=== PATIENT | male | born 1950 | race Caucasian/White ===

== ENCOUNTER 2022-10-03 12:28 | Outpatient (CLI) | payer MEDICARE, BC, SELFPAY | END 2022-10-03 12:29 | disposition home or self-care (01) | LOC: AMB 10-06 13:15 | PROVIDERS: PCP Family Medicine; Visit Provider Family Medicine | DX: M54.9 Dorsalgia, unspecified (principal) | CPT/HCPCS: A0425; A0428; A0433 ==

== ENCOUNTER 2022-10-03 13:08 | Emergency (ER) | payer MEDICARE, BC, SELFPAY ==
[2022-10-03] VITALS (8 sets, daily range): BP systolic 141–171; BP diastolic 68–85; PULSE 61–97; RESP 20; TEMP 36.1; O2SAT 96–100; BMI 53.1
--- NOTE | 2022-10-03 13:35 | CRLHL7_ITS ---
For Patients: As a result of the Century Cures Act, medical imaging exams and procedure reports are released immediately into your electronic medical record. You may view this report before your referring provider. If you have questions, please contact your health care provider. HISTORY: Right back pain. Right-sided radiculopathy. TECHNIQUE: CT lumbar spine without contrast. COMPARISON: None. FINDINGS: Five lumbar type vertebral bodies. No fracture. No subluxation. No lytic or blastic bone lesions. T12-L1: Severe facet arthrosis on the left and mild facet arthrosis on the right. Mild canal stenosis. No foraminal stenosis. L1-2: Moderate bilateral foraminal stenosis. Mild canal stenosis. No foraminal stenosis. L2-3: Mild disc height loss. Moderate facet arthrosis. Mild canal stenosis. No foraminal stenosis. L3-4: Severe facet arthrosis and disc bulge. Moderate to severe canal stenosis. Mild left foraminal stenosis. L4-5: Severe bilateral facet arthrosis. Moderate to severe canal stenosis. Mild bilateral foraminal stenosis. L5-S1: Severe right and moderate left facet arthrosis. Mild disc space narrowing. Mild canal stenosis. Severe bilateral foraminal stenosis. Atherosclerotic calcifications. IMPRESSION: 1. No acute abnormality of the lumbar spine. 2. Multilevel degenerative changes of the lumbar spine. Moderate to severe canal stenosis at L3-4 and L4-5. 3. Severe bilateral foraminal stenosis at L5-S1. Please note that all CT scans at this facility use dose modulation, iterative reconstruction, and/or weight-based dosing when appropriate to reduce radiation dose to as low as reasonably achievable. Dictated by Patricio Thompson MD @ 10/03/2022 3:18:33 PM (Electronically Signed)
--- NOTE | 2022-10-03 13:37 | CRLHL7_ITS ---
For Patients: As a result of the Century Cures Act, medical imaging exams and procedure reports are released immediately into your electronic medical record. You may view this report before your referring provider. If you have questions, please contact your health care provider. HISTORY: Right-sided pelvic pain. TECHNIQUE: CT pelvis without contrast. COMPARISON: None. FINDINGS: No fracture. Moderate osteoarthritis of both hips. Pubic symphysis is maintained. Moderate degenerative changes of the sacroiliac joints. No lytic or blastic bone lesions. No hematoma. Atherosclerotic calcifications. No lymphadenopathy. IMPRESSION: 1. No fracture. No acute findings. 2. Moderate osteoarthritis of both hips. 3. Degenerative changes of the sacroiliac joints. Please note that all CT scans at this facility use dose modulation, iterative reconstruction, and/or weight-based dosing when appropriate to reduce radiation dose to as low as reasonably achievable. Dictated by Patricio Thompson MD @ 10/03/2022 3:26:51 PM (Electronically Signed)
--- NOTE | 2022-10-03 13:39 | ED.BACK ---
HPI - Back Pain/Injury General Date Seen: 10/03/22 Chief Complaint: Back Injury/Pain Stated Complaint: Back Pain Time Seen by Provider: 10/03/22 13:10 Source: patient and EMS Mode of arrival: EMS Limitations: no limitations History of Present Illness HPI Narrative: Patient is a very nice 71-year-old gentleman who presents here with back pain, it has been worsening over the past 3 weeks, he does have a history of chronic back pain, spinal stenosis and a previous laminectomy. Greater than 30 years ago. He tells me this started out with low back pain, and last week and half is noted more right-sided symptoms, radiating around from his right hip right side of his back buttock, to his right upper leg. He has no numbness or tingling noted with this. But does endorse some muscle spasms he saw his primary care physician on Tuesday, he has been placed on tizanidine for this but noted today that that is added he does just not working he gets some relief with standing, or laying back, the worst position foreign by far is sitting. Denies any bowel or bladder symptoms. Admits to me that he does have a history of chronic IBS and alternates between diarrhea and also constipation. No history of falls or injury on top of this fevers chills or sweats does have a chronic history of sepsis, with previous kidney stones, brought in today by EMS he says he does not feel that he would be able to come by private vehicle and that is why he is here. By ambulance I do note in 2019 he had pretty bad spinal stenosis on a CT I can see. He does not endorse having an MRI. There is also evidence of the previous for mention laminectomy. I also note that he had no abdominal aortic aneurysm at that point Pertinent past history: prior back pain and back surgery Onset (ago): week(s) Timing: progressively worsening Severity: moderate Similar Symptoms Previously: Yes Quality: burning and aching Location: lumbar spine Radiation: none Exacerbating factors: none Associated symptoms: denies other symptoms Work related injury: Yes Related Data Home Medications Medication Instructions Recorded Confirmed allopurinol 300 mg tablet 300 mg PO DAILY 10/03/22 10/03/22 glipizide 5 mg tablet, extended 5 mg PO BID 10/03/22 10/03/22 release 24 hr insulin glargine 100 unit/mL (3 41 unit subcut QPM 10/03/22 10/03/22 mL) subcutaneous pen (Lantus Solostar U-100 Insulin) levothyroxine 100 mcg tablet 100 mcg PO DAILY 10/03/22 10/03/22 levothyroxine 125 mcg tablet 125 mcg PO DAILY 10/03/22 10/03/22 liraglutide 0.6 mg/0.1 mL (18 mg/3 1.8 mg subcut DAILY 10/03/22 10/03/22 mL) subcutaneous pen injector (Victoza 3-Frankie) losartan 50 mg tablet 50 mg PO DAILY 10/03/22 10/03/22 magnesium oxide 400 mg (241.3 mg 400 mg PO DAILY 10/03/22 10/03/22 magnesium) tablet metformin 500 mg tablet,extended 500 mg PO DAILY 10/03/22 10/03/22 release 24 hr metoprolol succinate 200 mg 200 mg PO DAILY 10/03/22 10/03/22 tablet,extended release 24 hr pantoprazole 40 mg tablet,delayed 40 mg PO QPM 10/03/22 10/03/22 release potassium chloride 20 mEq 60 meq PO DAILY 10/03/22 10/03/22 tablet,extended release(part/cryst) (Klor-Con M) pravastatin 80 mg tablet 80 mg PO DAILY 10/03/22 10/03/22 spironolactone 50 mg tablet 50 mg PO DAILY 10/03/22 10/03/22 tamsulosin 0.4 mg capsule 0.8 mg PO DAILY 10/03/22 10/03/22 tizanidine 2 mg tablet 2 - 4 mg PO Q8H PRN muscle spasm 10/03/22 10/03/22 Previous Rx's Medication Instructions Recorded gabapentin 300 mg capsule 300 mg PO TID #90 caps 10/03/22 methylprednisolone 4 mg tablets in See Rx Instructions PO .COMPLEX 10/03/22 a dose pack (Medrol (Frankie)) #21 ea Allergies Allergy/AdvReac Type Severity Reaction Status Date / Time terazosin Allergy Severe Shortness Verified 10/03/22 13:33 of Breath amoxicillin [From Augmentin] Allergy Mild Diarrhea Verified 10/03/22 13:33 atenolol Allergy Mild Verified 10/03/22 13:33 clavulanic acid Allergy Mild Diarrhea Verified 10/03/22 13:33 [From Augmentin] lisinopril Allergy Unknown Verified 10/03/22 13:33 meperidine [From Demerol] Allergy Unknown Verified 10/03/22 13:33 trospium Allergy Unknown Verified 10/03/22 13:33 Review of Systems Status of ROS: Reports: 10 or more systems reviewed and unremarkable except as noted in History and below [facility] Medical History BRITTNEY (obstructive sleep apnea) ?G47.33 - Obstructive sleep apnea (adult) (pediatric) (ICD-10) Social History Smoking Status: Former smoker Do you use any of these nicotine containing products: None Second hand tobacco smoke exposure: No How often do you have a drink containing alcohol: never AUDIT-C Alcohol total score: 0 Non-prescribed substance use: denies use service: No Exam Narrative: Exam Narrative: I find this nice gentleman in room 6 in no apparent distress, sitting up, be does have a tear noted on his cheek. Describes the pain in his back, he has a very large gentleman with an elevated BMI, he notes that he has lymphedema also his legs, he is able Worley lift both legs up to approximately 30?, EHLs great toe flexors ankle dorsiflexors plantar flexors knee flexions hip flexors seemingly are good bilaterally, with normal power I am unable to get any reflexes of his ankles or his knees but his legs are fairly large. Lichenification of the skin bilaterally in his lower extremities is noted I do not see any evidence of cellulitic process. On reviewing his back, scar from previous surgery is noted, there is no tenderness to palpation notable. His decent perianal sensation grossly, there is no tenderness to put palpation or percussion Given the size this gentleman is complaints I think CT scanning would be advantageous verses regular x-ray, we will go ahead and get this, and I will also do a CT of his pelvis to ensure that there is nothing else going on. Will give him a small amount of Dilaudid for this discomfort. He has before had oxycodone morphine and Dilaudid with no problems Const: Vital Signs, click to edit/add: Vital Signs - 24 hr 10/03/22 13:16 10/03/22 13:42 10/03/22 14:12 Temperature 97 F L Pulse Rate 97 75 Pulse Rate [Pulse Oximeter] 71 Respiratory Rate 20 Blood Pressure Blood Pressure [Le ft Forearm] 152/85 H Pulse Oximetry 96 100 100 Oxygen Delivery Me thod Room Air 10/03/22 14:30 10/03/22 15:00 10/03/22 15:07 Temperature Pulse Rate 61 69 94 Pulse Rate [Pulse Oximeter] Respiratory Rate Blood Pressure 141/77 H Blood Pressure [Le ft Forearm] Pulse Oximetry 100 100 100 Oxygen Delivery Me thod 10/03/22 15:30 10/03/22 15:33 Temperature Pulse Rate 61 67 Pulse Rate [Pulse Oximeter] Respiratory Rate Blood Pressure 171/68 H Blood Pressure [Le ft Forearm] Pulse Oximetry 100 100 Oxygen Delivery Me thod Course Course Hospital Course: Patient is seen and assessed, review them CT results, him and his , I think he has spinal stenosis, likely with some hip issues, from his severe arthritis, we discussed with the fact that he is has not tried maximal therapy, I do not think admission to the hospital is a great idea as he is able to walk around with his walker fairly well and actually that he does not have a ton of pain with walking. I think we can try some gabapentin 300 mg p.o. t.i.d. along with a Medrol Dosepak, went over the low side effects of both of these medications with him, small supply of Percocet can be use, but I was also very open with him the chance of addiction so we should use a small supply, follow-up with primary care suggested, because of his size and other move mobility issues, we did arrange to have the ambulance bring him home, and he was comfortable with this. Vital Signs Vital signs: Initial Vital Signs Temperature 97 F L 10/03/22 13:16 Temperature Source Temporal Artery Scan 10/03/22 13:16 Pulse Rate 71 10/03/22 13:16 Respiratory Rate 20 10/03/22 13:16 Blood Pressure 152/85 H 10/03/22 13:16 Blood Pressure Mean 107 H 10/03/22 13:16 Blood Pressure Position Sitting 10/03/22 13:16 Pulse Oximetry 96 10/03/22 13:16 Oxygen Delivery Method Room Air 10/03/22 13:16 Vital Signs Temperature 97 F L 10/03/22 13:16 Pulse Rate 71 10/03/22 13:16 Respiratory Rate 20 10/03/22 13:16 Blood Pressure 152/85 H 10/03/22 13:16 Pulse Oximetry 96 10/03/22 13:16 Oxygen Delivery Method Room Air 10/03/22 13:16 Temperature 97 F L 10/03/22 13:16 Pulse Rate 67 10/03/22 15:33 Respiratory Rate 20 10/03/22 13:16 Blood Pressure 171/68 H 10/03/22 15:33 Pulse Oximetry 100 10/03/22 15:33 Oxygen Delivery Method Room Air 10/03/22 13:16 MDM - Back Pain/Injury MDM Narrative Medical decision making narrative: Life-threatening differential diagnosis considered include: Cauda equina an epidural abscess, other differential diagnosis considered includes sprain, contusion, nerve root entrapment, radiculopathy, muscle spasm, urolithiasis, lumbar fracture, pyelonephritis, appendicitis, biliary colic, as well as other etiologies. The patient denies saddle anesthesia bowel or bladder incontinence or lower extremity weakness, recent weight loss, or history of malignancy. Medical Records Attestation: I reviewed the patient's medical records. Imaging Data Lumbar CT: Radiologist's impression: Patient: ALFONZO ROSS Facility: [facility] Site . Site : 1950 Study: CT Spine Lumbar W/O-10/03/2022 2:12:46 PM Ordering Physician: Nicolas Andres Final Report: HISTORY: Right back pain. Right-sided radiculopathy. TECHNIQUE: CT lumbar spine without contrast. COMPARISON: None. FINDINGS: Five lumbar type vertebral bodies. No fracture. No subluxation. No lytic or blastic bone lesions. T12-L1: Severe facet arthrosis on the left and mild facet arthrosis on the right. Mild canal stenosis. No foraminal stenosis. L1-2: Moderate bilateral foraminal stenosis. Mild canal stenosis. No foraminal stenosis. L2-3: Mild disc height loss. Moderate facet arthrosis. Mild canal stenosis. No foraminal stenosis. L3-4: Severe facet arthrosis and disc bulge. Moderate to severe canal stenosis. Mild left foraminal stenosis. L4-5: Severe bilateral facet arthrosis. Moderate to severe canal stenosis. Mild bilateral foraminal stenosis. L5-S1: Severe right and moderate left facet arthrosis. Mild disc space narrowing. Mild canal stenosis. Severe bilateral foraminal stenosis. Atherosclerotic calcifications. IMPRESSION: 1. No acute abnormality of the lumbar spine. 2. Multilevel degenerative changes of the lumbar spine. Moderate to severe canal stenosis at L3-4 and L4-5. 3. Severe bilateral foraminal stenosis at L5-S1. Please note that all CT scans at this facility use dose modulation, iterative reconstruction, and/or weight-based dosing when appropriate to reduce radiation dose to as low as reasonably achievable. Dictated by Patricio Thompson MD @ 10/03/2022 3:18:33 PM (Electronic Signature) Patient: ALFONZO ROSS Facility: [facility] Site . Site : 1950 Study: CT Pelvis W/O-10/03/2022 2:13:10 PM Ordering Physician: Nicolas Andres Final Report: HISTORY: Right-sided pelvic pain. TECHNIQUE: CT pelvis without contrast. COMPARISON: None. FINDINGS: No fracture. Moderate osteoarthritis of both hips. Pubic symphysis is maintained. Moderate degenerative changes of the sacroiliac joints. No lytic or blastic bone lesions. No hematoma. Atherosclerotic calcifications. No lymphadenopathy. IMPRESSION: 1. No fracture. No acute findings. 2. Moderate osteoarthritis of both hips. 3. Degenerative changes of the sacroiliac joints. Please note that all CT scans at this facility use dose modulation, iterative reconstruction, and/or weight-based dosing when appropriate to reduce radiation dose to as low as reasonably achievable. Dictated by Patricio Thompson MD @ 10/03/2022 3:26:51 PM (Electronic Signature) Discharge Plan Discharge Clinical Impression: Lumbar radiculopathy, Spinal stenosis at L4-L5 level, Bilateral hip joint arthritis Patient Disposition: Home, Self-Care Condition: Improved Instructions: Lumbar Spinal Stenosis (ED), Lumbar Nerve Root Injection (DC), Lumbar Radiculopathy (ED), Back Pain (ED), Epidural Steroid Injection (DC) Additional Instructions: Home, rest, medication as directed. Follow-up with primary care this week if you can. Note that the gabapentin may cause you to be a little bit more woozy when you first start the medication, and then Medrol will increase your sugars. Small supply of oxycodone given, this will cause you more of a constipation type affect also. Prescriptions: New methylprednisolone [Medrol (Frankie)] 4 mg tablets,dose pack See Rx Instructions .ROUTE .COMPLEX Qty: 21 0RF Rx Instructions: orally per package directions gabapentin 300 mg capsule 300 mg PO TID Qty: 90 2RF No Action losartan 50 mg tablet 50 mg PO DAILY tizanidine 2 mg tablet 2 - 4 mg PO Q8H PRN (Reason: muscle spasm) metoprolol succinate 200 mg tablet extended release 24 hr 200 mg PO DAILY glipizide 5 mg tablet extended release 24hr 5 mg PO BID levothyroxine 100 mcg tablet 100 mcg PO DAILY potassium chloride [Klor-Con M20] 20 mEq tablet,ER particles/crystals 60 meq PO DAILY pravastatin 80 mg tablet 80 mg PO DAILY magnesium oxide 400 mg (241.3 mg magnesium) tablet 400 mg PO DAILY tamsulosin 0.4 mg capsule 0.8 mg PO DAILY pantoprazole 40 mg tablet,delayed release (DR/EC) 40 mg PO QPM levothyroxine 125 mcg tablet 125 mcg PO DAILY allopurinol 300 mg tablet 300 mg PO DAILY metformin 500 mg tablet extended release 24 hr 500 mg PO DAILY spironolactone 50 mg tablet 50 mg PO DAILY insulin glargine [Lantus Solostar U-100 Insulin] 100 unit/mL (3 mL) insulin pen 41 unit subcut QPM Victoza 3-Frankie 0.6 mg/0.1 mL (18 mg/3 mL) pen injector 1.8 mg subcut DAILY Follow Up/Referrals: Grzegorz Wiggins MD [Primary Care Provider] - Stand Alone Forms: [facility] Info Instructions
[2022-10-03] MEDS: HYDROmorphone 0.5 mg/0.5 ml inj IVP (13:40)
--- NOTE | 2022-10-03 13:49 | ED.NURSE ---
Pt reports increasing back pain. Received Fentanyl by EMS en route. Dilaudid IV ordered by Dr. Valenzuela. Given as ordered. Will continue to monitor and reassess.
[2022-10-03] MEDS: GABAPENTIN 300 MG CAPSULE PO (15:03)
[2022-10-03] MEDS: METHYLPREDNISOLONE SOD SUCC 62.5 MG/ML (125) 125 MG IVP (15:03)
--- NOTE | 2022-10-03 15:15 | ED.NURSE ---
Pt had improvement in pain after administration of dilaudid. Pain went down to 1/10. Pain returned around 1500 to 2-3/10. IV solu-medrol and PO gabapentin administered as ordered by Dr. Valenzuela. Plan to monitor and reassess.
[2022-10-03] MEDS: OxyCODONE/APAP 5-325 TABLET 2 TAB PO (15:42)
== END 2022-10-03 16:27 | disposition home or self-care (01) ==
PROVIDERS: Emergency Provider Family Medicine; PCP Family Medicine
DX: M54.16 Radiculopathy, lumbar region (principal); M48.061 Spinal stenosis, lumbar region without neurogenic claudication; M16.0 Bilateral primary osteoarthritis of hip
CPT/HCPCS: 72131; 72192; 96374; 99284; A9270; J1170; J2930

== ENCOUNTER 2022-10-03 16:20 | Outpatient (CLI) | payer MEDICARE, BC, SELFPAY | END 2022-10-03 16:21 | disposition home or self-care (01) | LOC: AMB 10-08 07:57 | PROVIDERS: PCP Family Medicine; Visit Provider Family Medicine | DX: M54.9 Dorsalgia, unspecified (principal) | CPT/HCPCS: A0425; A0428 ==

== ENCOUNTER 2022-10-07 11:28 | Outpatient (CLI) | payer MEDICARE, BC, SELFPAY | END 2022-10-07 11:29 | disposition home or self-care (01) | LOC: AMB 10-08 07:01 | PROVIDERS: PCP Family Medicine; Visit Provider Emergency Medicine | DX: M54.9 Dorsalgia, unspecified (principal) | CPT/HCPCS: A0425; A0427 ==

== ENCOUNTER 2022-11-09 12:11 | Outpatient (CLI) | payer MEDICARE, BC, SELFPAY | END 2022-11-09 12:12 | disposition home or self-care (01) | LOC: AMB 11-10 12:34 | PROVIDERS: PCP Family Medicine; Visit Provider Family Medicine | DX: M54.9 Dorsalgia, unspecified (principal); Z99.3 Dependence on wheelchair | CPT/HCPCS: A0425; A0428 ==

== ENCOUNTER 2022-11-26 21:23 | Outpatient (CLI) | payer MEDICARE, BC, SELFPAY | END 2022-11-26 21:24 | disposition home or self-care (01) | LOC: AMB 11-30 09:31 | PROVIDERS: PCP Family Medicine; Visit Provider Family Medicine | DX: M54.9 Dorsalgia, unspecified (principal) | CPT/HCPCS: A0425; A0427 ==

== ENCOUNTER 2022-11-27 05:28 | Outpatient (CLI) | payer MEDICARE, BC, SELFPAY | END 2022-11-27 05:29 | disposition home or self-care (01) | LOC: AMB 11-30 09:35 | PROVIDERS: PCP Family Medicine; Visit Provider Family Medicine | DX: R53.1 Weakness (principal) | CPT/HCPCS: A0998 ==

== ENCOUNTER 2022-11-27 21:46 | Outpatient (CLI) | payer MEDICARE, BC, SELFPAY | END 2022-11-27 21:47 | disposition home or self-care (01) | LOC: AMB 11-30 11:41 | PROVIDERS: PCP Family Medicine; Visit Provider Family Medicine | DX: R53.1 Weakness (principal) | CPT/HCPCS: A0425; A0429; A0998 ==

== ENCOUNTER 2022-11-27 22:13 | Observation (INO) | payer MEDICARE, BC, SELFPAY ==
[2022-11-27 22:21] VITALS: BP 132/63; PULSE 83; RESP 18; TEMP 36.3; O2SAT 97
--- NOTE | 2022-11-27 22:35 | CRLHL7_ITS ---
For Patients: As a result of the Century Cures Act, medical imaging exams and procedure reports are released immediately into your electronic medical record. You may view this report before your referring provider. If you have questions, please contact your health care provider. INDICATION: Fall with head trauma TECHNIQUE: Head CT without contrast. COMPARISON: None FINDINGS: CSF spaces: Within normal limits for age. Brain parenchyma: There are nonspecific low attenuation white matter changes consistent with chronic microvascular disease. No sign of mass, hemorrhage, or midline shift. Skull base and calvarium: The visualized paranasal sinuses and mastoid air cells demonstrate no acute or significant findings. The visualized orbits are grossly unremarkable. No skull fractures. There is intracranial atherosclerosis. IMPRESSION: 1. No acute findings. 2. Nonspecific white matter disease, typical of chronic microvascular disease. Please note that all CT scans at this facility use dose modulation, iterative reconstruction, and/or weight-based dosing when appropriate to reduce radiation dose to as low as reasonably achievable. Dictated by Leila Hinds MD @ 11/28/2022 12:53:21 AM (Electronically Signed)
--- NOTE | 2022-11-27 22:35 | CRLHL7_ITS ---
For Patients: As a result of the Cures Act, medical imaging exams and procedure reports are released immediately into your electronic medical record. You may view this report before your referring provider. If you have questions, please contact your health care provider. HISTORY: Fall. Hip pain. TECHNIQUE: AP pelvis and 2 views of the right hip. COMPARISON: No prior. FINDINGS: CAM morphology of the proximal femurs bilaterally. Mild degenerative changes of the hips. Os acetabuli on the right. No acute fracture. There are degenerative changes within the spine. IMPRESSION: No acute fracture. Dictated by Sagar Shah MD @ 11/28/2022 12:54:01 AM Dictated by: Sagar Shah MD @ 11/28/2022 00:54:13 (Electronically Signed)
--- NOTE | 2022-11-27 22:55 | ED_ITS ---
HPI - General Adult General Date Seen: 11/27/22 Chief complaint: Weakness Stated complaint: increasing falls Time Seen by Provider: 11/27/22 22:20 Source: patient Mode of arrival: EMS Limitations: no limitations History of Present Illness HPI narrative: Patient is a 72-year-old male history of anemia, gout, diabetes, hypothyroidism, hypertension presenting to the emergency department for difficulty ambulating. He states yesterday with the home he fell and landed on his knees and then laid there for about 20 minutes until someone came to help him up at his home. He states today as he has been moving has been feeling weaker and weaker in no states she can not move around his house. He says he tried to walk again today and again fell. He says he thinks he hit his head but denies ever losing consciousness. States only pain is having at this time is right hip pain he says this is been a chronic issue for him. He states his right leg is chronically weak in his left leg. Of note he was at [facility] from mid September through early October for anemia and weakness. He was then sent to the [facility] for rehab. He stayed there for 3 weeks and resume least November 12. He has been at home with home rehab since then and says he thought he was doing well but now feels like he is weaker again and cannot take care of himself at home. He is hoping to go back to rehab. Related Data Home Medications Medication Instructions Recorded Confirmed allopurinol 300 mg tablet 300 mg PO DAILY 10/03/22 11/28/22 glipizide 5 mg tablet, extended 5 mg PO BID 10/03/22 11/28/22 release 24 hr insulin glargine 100 unit/mL (3 41 unit subcut HS 10/03/22 11/28/22 mL) subcutaneous pen (Lantus Solostar U-100 Insulin) levothyroxine 100 mcg tablet 100 mcg PO DAILY 10/03/22 11/28/22 levothyroxine 125 mcg tablet 125 mcg PO DAILY 10/03/22 11/28/22 liraglutide 0.6 mg/0.1 mL (18 mg/3 1.8 mg subcut DAILY 10/03/22 11/28/22 mL) subcutaneous pen injector (Victoza 3-Frankie) losartan 50 mg tablet 50 mg PO DAILY 10/03/22 11/28/22 magnesium oxide 400 mg (241.3 mg 400 mg PO DAILY 10/03/22 11/28/22 magnesium) tablet metformin 500 mg tablet,extended 500 mg PO DAILY 10/03/22 11/28/22 release 24 hr metoprolol succinate 200 mg 200 mg PO DAILY 10/03/22 11/28/22 tablet,extended release 24 hr pantoprazole 40 mg tablet,delayed 40 mg PO QPM 10/03/22 11/28/22 release potassium chloride 20 mEq 60 meq PO DAILY 10/03/22 11/28/22 tablet,extended release(part/cryst) (Klor-Con M) pravastatin 80 mg tablet 80 mg PO HS 10/03/22 11/28/22 spironolactone 50 mg tablet 50 mg PO DAILY 10/03/22 11/28/22 tamsulosin 0.4 mg capsule 0.8 mg PO HS 10/03/22 11/28/22 tizanidine 2 mg tablet 2 - 4 mg PO Q8H PRN muscle spasm 10/03/22 11/28/22 acetaminophen 500 mg tablet 1,000 mg PO Q6H PRN 11/28/22 11/28/22 (Tylenol Extra Strength) duloxetine 30 mg capsule,delayed 30 mg PO BID 11/28/22 11/28/22 release gabapentin 600 mg tablet 900 mg PO 3XD 11/28/22 11/28/22 lidocaine 4 % topical patch 1 patch topical DAILY PRN 11/28/22 11/28/22 (Lidocare) nystatin 100,000 unit/gram topical 1 applic topical 3XD PRN 11/28/22 11/28/22 powder sodium bicarbonate 650 mg tablet 650 mg PO TID 11/28/22 11/28/22 Allergies Allergy/AdvReac Type Severity Reaction Status Date / Time terazosin Allergy Severe Shortness Verified 10/03/22 13:33 of Breath amoxicillin [From Augmentin] Allergy Mild Diarrhea Verified 10/03/22 13:33 atenolol Allergy Mild Verified 10/03/22 13:33 clavulanic acid Allergy Mild Diarrhea Verified 10/03/22 13:33 [From Augmentin] lisinopril Allergy Unknown Verified 10/03/22 13:33 meperidine [From Demerol] Allergy Unknown Verified 10/03/22 13:33 trospium Allergy Unknown Verified 10/03/22 13:33 Review of Systems Status of ROS: Reports: 10 or more systems reviewed and unremarkable except as noted in History and below [facility] Medical History (Updated 11/28/22 @ 15:14 by Saturnino Pedraza MD) Benign prostatic hyperplasia ?N40.0 - Benign prostatic hyperplasia without lower urinary tract symptoms (ICD-10) Primary hypothyroidism ?E03.9 - Hypothyroidism, unspecified (ICD-10) Prostate nodule ?N40.2 - Nodular prostate without lower urinary tract symptoms (ICD-10) Hyperlipidemia ?E78.5 - Hyperlipidemia, unspecified (ICD-10) Chronic kidney disease ?N18.9 - Chronic kidney disease, unspecified (ICD-10) Essential hypertension ?I10 - Essential (primary) hypertension (ICD-10) Uric acid renal calculus ?N20.0 - Calculus of kidney (ICD-10) Nephrolithiasis ?N20.0 - Calculus of kidney (ICD-10) History of urinary tract infection ?Z87.440 - Personal history of urinary (tract) infections (ICD-10) Recurrent major depressive disorder ?F33.9 - Major depressive disorder, recurrent, unspecified (ICD-10) Chronic low back pain ?M54.50 - Low back pain, unspecified (ICD-10) ?G89.29 - Other chronic pain (ICD-10) Declining functional status ?R53.81 - Other malaise (ICD-10) Iron deficiency anemia ?D50.9 - Iron deficiency anemia, unspecified (ICD-10) Chronic idiopathic constipation ?K59.04 - Chronic idiopathic constipation (ICD-10) Atrial paroxysmal tachycardia ?I47.1 - Supraventricular tachycardia (ICD-10) Morbid obesity with BMI of 50.0-59.9, adult ?E66.01 - Morbid (severe) obesity due to excess calories (ICD-10) ?Z68.43 - Body mass index [BMI] 50.0-59.9, adult (ICD-10) Physical debility ?R53.81 - Other malaise (ICD-10) Diabetic peripheral neuropathy associated with type 2 diabetes mellitus ?E11.42 - Type 2 diabetes mellitus with diabetic polyneuropathy (ICD-10) Diabetes mellitus type 2 in obese ?E11.69 - Type 2 diabetes mellitus with other specified complication (ICD-10) ?E66.9 - Obesity, unspecified (ICD-10) Spinal stenosis, lumbar region without neurogenic claudication ?M48.061 - Spinal stenosis, lumbar region without neurogenic claudication (ICD-10) Lumbar radiculopathy, chronic ?M54.16 - Radiculopathy, lumbar region (ICD-10) BRITTNEY (obstructive sleep apnea) ?G47.33 - Obstructive sleep apnea (adult) (pediatric) (ICD-10) Social History What is your current living situation?: I presently have a place to live Problems where you live: no known problems Problems where you live details: no known problems In the past 12 months, utilities in danger of being shut off: no In the past 12 mos, have been you worried that your food would run out before you had money to buy more?: never true In the past 12 mos, the food you bought just didn't last and you didn't have money to buy more?: never true Smoking Status: Former smoker Do you use any of these nicotine containing products: None Second hand tobacco smoke exposure: Yes How often do you have a drink containing alcohol: never How often do you have six or more drinks on one occasion: Never AUDIT-C Alcohol total score: 0 Non-prescribed substance use: denies use Caffeine: No How often does anyone, including family, friends and others, physically hurt you : never How often does anyone, including family, friends and others, insult or talk down to you: never How often does anyone, including family, friends and others, threaten you with harm: never How often does anyone, including family, friends and others, scream or curse at you: never service: No Exam Narrative: Exam Narrative: Const: Well-nourished, Well-developed, in mild distress Eyes: PERRL, no conjunctival injection, and symmetrical lids ENMT: Atraumatic external nose and ears. Moist mucous membranes. Neck: Symmetric, trachea midline, No thyromegaly. CVS: RRR, No murmurs or gallops. Peripheral pulses 2+ and equal in all extremities RESP: Unlabored respiratory effort. Clear to auscultation bilaterally. GI: Nontender/Nondistended, No rebound or guarding. MSK:Extremities w/o deformity, Normal Active ROM Skin: Warm, Dry. No rashes or lesions. Neuro: Normal Muscle tone, No focal neurological deficits. Psych: Awake, Alert, & Oriented x3. Appropriate mood and affect. Const: Vital Signs, click to edit/add: Vital Signs - 24 hr 11/27/22 22:21 Temperature 97.4 F L Pulse Rate [Pulse Oximeter] 83 Respiratory Rate 18 Blood Pressure [Ri ght Upper Arm] 132/63 Pulse Oximetry 97 Oxygen Delivery Me thod Room Air Course Vital Signs Vital signs: Initial Vital Signs Temperature 97.4 F L 11/27/22 22:21 Temperature Source Temporal Artery Scan 11/27/22 22:21 Pulse Rate 83 11/27/22 22:21 Respiratory Rate 18 11/27/22 22:21 Blood Pressure 132/63 11/27/22 22:21 Blood Pressure Mean 86 11/27/22 22:21 Blood Pressure Position Supine 11/27/22 22:21 Pulse Oximetry 97 11/27/22 22:21 Oxygen Delivery Method Room Air 11/27/22 22:21 Vital Signs Temperature 97.4 F L 11/27/22 22:21 Pulse Rate 83 11/27/22 22:21 Respiratory Rate 18 11/27/22 22:21 Blood Pressure 132/63 11/27/22 22:21 Pulse Oximetry 97 11/27/22 22:21 Oxygen Delivery Method Room Air 11/27/22 22:21 Temperature 98.1 F 11/28/22 20:15 Pulse Rate 74 11/28/22 20:15 Respiratory Rate 18 11/28/22 22:29 Blood Pressure 170/73 H 11/28/22 20:15 Pulse Oximetry 95 11/28/22 20:15 Oxygen Delivery Method Room Air 11/28/22 20:15 Medical Decision Making MDM Narrative Medical decision making narrative: Patient is 72-year-old male presented emergency department for weakness. He states he fell yesterday and again today. He is thinks he has had today but denies any loss of consciousness. He was discharged from rehab facility 2 weeks ago and was can home rehab he thinks he is declining and wants to go back to rehab. He has right hip pain be states this is always there and is not new. CBC, CMP, urinalysis were all ordered on this patient. Also her troponin, COVID/flu/RSV an EKG. Also head CT and hip x-ray. Patient cbc and CMP showed no concerning abnormalities. Troponin is less than 0.01. His hemoglobin appears to be at baseline. Urinalysis is still pending at this time. COVID/flu/RSV are all negative.Patient's hip x-ray and CT scan returned showing no concerning abnormalities. Urinalysis still pending at this time and he was offered a straight cath but refused. Patient was given fluids to help him urinate. Patient be admitted to the hospitalist service. Lab Data Labs: Lab Results 11/27/22 11/27/22 Range/Units 22:57 22:58 WBC 7.53 (4.50-11.00) K/uL RBC 4.18 L (4.30-5.90) m/uL Hgb 9.7 L (13.5-17.5) gm/dL Hct 32.5 L (37.0-53.0) % MCV 78 L (80-100) fL MCH 23 L (26-34) pg MCHC 30 L (32-36) gm/dL RDW Coeff of Liana 22.4 H (11.5-15.5) % Plt Count 306 (140-440) K/uL Neut % (Auto) 68.3 (42.0-72.0) % Lymph % (Auto) 17.8 L (20-44) % [place] % (Auto) 10.4 (0.0-11.0) % Eos % (Auto) 2.3 (0.0-7.0) % Baso % (Auto) 0.3 (0.0-3.0) % Neut # (Auto) 5.15 (1.7-7.0) K/uL Lymph # (Auto) 1.30 (0.90-2.90) K/uL [place] # (Auto) 0.80 (0.00-0.90) K/UL Eos # (Auto) 0.17 (0.00-0.50) K/uL Baso # (Auto) 0.02 (0.00-0.30) K/uL Abs Immat Gran (auto) 0.07 (0.00-0.30) K/uL Imm/Tot Granulo (auto) 0.9 % Diff Slide Review Acceptable Review (Acceptable) Sodium 134 L (135-149) mmol/L Potassium 3.6 (3.6-5.1) mmol/L Chloride 101 (96-114) mmol/L Carbon Dioxide 23 (20-32) mmol/L BUN 19 (7-30) mg/dL Creatinine 1.3 (0.5-1.5) mg/dL Estimated GFR 59 ml/min Glucose 231 H (60-115) mg/dL Calcium 8.5 (8.4-10.6) mg/dL Total Bilirubin 0.6 (0.1-1.5) mg/dL AST 18 (12-35) U/L ALT 16 (4-50) U/L Alkaline Phosphatase 78 (40-150) U/L Troponin I < 0.01 L (0.01-0.04) ng/mL Total Protein 6.0 (6.0-8.3) g/dL Albumin 3.6 (3.3-5.0) g/dL SARS-CoV-2 (PCR) Negative SARS-CoV-2 (Negative) Influenza Type A (PCR) Negative PCR FLU A (Negative) Influenza Type B (PCR) Negative PCR FLU B (Negative) RSV (PCR) Negative PCR RSV (Negative) ECG Data Attestation: I personally reviewed and interpreted this ECG as follows: (Normal sinus rhythm with a rate of 77 beats per minute, normal interval, normal axi, ST or T-wave abnormalities) Prior ECG tracings: not available for review Discharge Plan Discharge Patient Disposition: Admitted As Observation Discharge Location: [facility] Condition: Unchanged
[2022-11-27 23:14] LABS: Basophils Absolute Auto 0.02 K/uL (0.00-0.30); Basophils Percent Auto 0.3 % (0.0-3.0); Eosinophils Absolute Auto 0.17 K/uL (0.00-0.50); Eosinophils Percent Auto 2.3 % (0.0-7.0); Hematocrit 32.5 % (37.0-53.0); Hemoglobin* 9.7 gm/dL (13.5-17.5); Immature Granulocytes Abs Auto 0.07 K/uL (0.00-0.30); Immature Granulocytes Pct Auto 0.9 %; Lymphocytes Percent Auto 17.8 % (20-44); Mean Corpuscular HGB Conc 30 gm/dL (32-36); Mean Corpuscular Hemoglobin 23 pg (26-34); Mean Corpuscular Volume 78 fL (80-100); Monocytes Percent Auto 10.4 % (0.0-11.0); Neutrophils Absolute Auto 5.15 K/uL (1.7-7.0); Neutrophils Percent Auto 68.3 % (42.0-72.0); Platelet Count* 306 K/uL (140-440); RDW Coefficient of Variation % 22.4 % (11.5-15.5); Red Blood Count 4.18 m/uL (4.30-5.90); White Blood Count* 7.53 K/uL (4.50-11.00)
[2022-11-27 23:17] LABS: Slide Review Reflex Yes
[2022-11-27 23:19] LABS: Chloride* 101 mmol/L (96-114)
[2022-11-27 23:20] LABS: Albumin* 3.6 g/dL (3.3-5.0); Potassium* 3.6 mmol/L (3.6-5.1); Sodium* 134 mmol/L (135-149)
[2022-11-27 23:22] LABS: Bilirubin Total* 0.6 mg/dL (0.1-1.5); Carbon Dioxide* 23 mmol/L (20-32); Creatinine* 1.3 mg/dL (0.5-1.5); Estimated Glomerular Filt Rate 59 ml/min
[2022-11-27 23:23] LABS: Alanine Aminotransferase* 16 U/L (4-50); Alkaline Phosphatase* 78 U/L (40-150); Aspartate Amino Transferase* 18 U/L (12-35); Blood Urea Nitrogen* 19 mg/dL (7-30); Calcium* 8.5 mg/dL (8.4-10.6); Glucose* 231 mg/dL (60-115)
[2022-11-27 23:40] LABS: Slide Review Acceptable Review (Acceptable)
[2022-11-27 23:44] LABS: PCR FLU A Negative PCR FLU A (Negative); PCR FLU B Negative PCR FLU B (Negative); PCR RSV Negative PCR RSV (Negative)
[2022-11-27 23:53] LABS: Troponin I* < 0.01 ng/mL (0.01-0.04)
[2022-11-27 23:54] LABS: SARS PCR* Negative SARS-CoV-2 (Negative)
[2022-11-28] VITALS (10 sets, daily range): BP systolic 150–191; BP diastolic 66–98; PULSE 71–113; RESP 12–18; TEMP 36.3–37.1; O2SAT 92–99; BMI 51.5
[2022-11-28] MEDS: 0.9 % SODIUM CHLORIDE 1000 ml 1,000 ML IV (00:50)
--- NOTE | 2022-11-28 01:33 | ED.NURSE ---
Patient accepted by [facility] for admission for weakness, mulitple falls, and placement. [employer] notified of pending admission.
--- NOTE | 2022-11-28 02:26 | ED.NURSE ---
Report to accepting [facility] RN. Patient moved to M2 with all patient belongings,
[2022-11-28 05:02] LABS: Appearance Urine Clear (Clear); Bilirubin Urine Negative (Negative); Blood Urine Negative (Negative); Color Urine Yellow (Yellow); Glucose Urine Trace (Negative); Ketones Urine Trace (Negative); Leukocyte Esterase Urine Negative (Negative); Nitrite Urine Negative (Negative); Protein Urine Negative (Negative); pH Urine 6.5 (5.0-8.5)
[2022-11-28 05:12] LABS: RBC Urine 0-2 (0-2); WBC Urine 0-2 (0-5)
[2022-11-28] MEDS: TAMSULOSIN HCL 0.4 MG CAPSULE 0.8 MG PO ×2 (06:11→20:59)
[2022-11-28] MEDS: GABAPENTIN 300 MG CAPSULE 900 MG PO (06:11)
--- NOTE | 2022-11-28 06:38 | PM.IMCN1 ---
Date of Consult Consult date: 11/28/22 Primary Care Provider: Grzegorz Wiggins MD Consult Narrative Narrative: [facility] Hospitalist ADMISSION SUPPORT NOTE eHospitalist was contacted by Dr. Saldaña with request of admission support. Chief complaint: Weakness with falls HPI: The patient reports that a few weeks ago he had a slipped disc and was admitted to [facility]. During that time he was seen by orthopedic surgery who suggested nonsurgical intervention with rehabilitation. During that hospitalization his hemoglobin was also low and he was given iron supplementation and blood transfusion. Neither colonoscopy nor EGD were performed during that hospitalization. There was plan as an outpatient at some point to perform colonoscopy. He reports that he was doing well in TCU and was discharged to home about 12 days ago. He reports that he was doing okay since discharge, walking around with his walker. However on Tuesday while walking to the bathroom he felt like my leg exploded. He developed acute severe pain in the leg and eventually because of the severity of the pain had to lower himself to the ground. EMS was called and he was taken back to [facility] and evaluated. His pain seemed to improve and he was able to go home however when he tried to get back inside the house he had difficulty ambulating and fell on the ground again. Since that time he has had difficulty walking and feels as though he is weak and in strength. Review of systems other mention above is negative Home Medications: Reviewed see EMR for details Pertinent Medical History: Morbid obesity, DM2, chronic kidney disease, hypothyroidism, hypertension, dyslipidemia, obstructive sleep apnea on BiPAP, degenerative joint disease, elevated uric acid, uric acid nephrolithiasis, BPH, neuropathy, back surgery, cystoscopy, lithotripsy Pertinent Social History: his is present at bedside, denies drugs of abuse, he may drink 1 drink per year Review of Systems Status of ROS: Reports: 10 or more systems reviewed and unremarkable except as noted in History and below PFSH PFS Medical History BRITTNEY (obstructive sleep apnea) ?G47.33 - Obstructive sleep apnea (adult) (pediatric) (ICD-10) Social History What is your current living situation?: I presently have a place to live Problems where you live: no known problems Problems where you live details: no known problems In the past 12 months, utilities in danger of being shut off: no In the past 12 mos, have been you worried that your food would run out before you had money to buy more?: never true In the past 12 mos, the food you bought just didn't last and you didn't have money to buy more?: never true Smoking Status: Former smoker Do you use any of these nicotine containing products: None Second hand tobacco smoke exposure: Yes How often do you have a drink containing alcohol: never How often do you have six or more drinks on one occasion: Never AUDIT-C Alcohol total score: 0 Non-prescribed substance use: denies use Caffeine: No How often does anyone, including family, friends and others, physically hurt you: never How often does anyone, including family, friends and others, insult or talk down to you: never How often does anyone, including family, friends and others, threaten you with harm: never How often does anyone, including family, friends and others, scream or curse at you: never service: No Meds Home Medications and Allergies Home Medications Medication Instructions Recorded Confirmed Type allopurinol 300 mg tablet 300 mg PO DAILY 10/03/22 10/03/22 History glipizide 5 mg tablet, extended 5 mg PO BID 10/03/22 10/03/22 History release 24 hr insulin glargine 100 unit/mL (3 41 unit subcut QPM 10/03/22 10/03/22 History mL) subcutaneous pen (Lantus Solostar U-100 Insulin) levothyroxine 100 mcg tablet 100 mcg PO DAILY 10/03/22 10/03/22 History levothyroxine 125 mcg tablet 125 mcg PO DAILY 10/03/22 10/03/22 History liraglutide 0.6 mg/0.1 mL (18 mg/3 1.8 mg subcut DAILY 10/03/22 10/03/22 History mL) subcutaneous pen injector (Victoza 3-Frankie) losartan 50 mg tablet 50 mg PO DAILY 10/03/22 10/03/22 History magnesium oxide 400 mg (241.3 mg 400 mg PO DAILY 10/03/22 10/03/22 History magnesium) tablet metformin 500 mg tablet,extended 500 mg PO DAILY 10/03/22 10/03/22 History release 24 hr metoprolol succinate 200 mg 200 mg PO DAILY 10/03/22 10/03/22 History tablet,extended release 24 hr pantoprazole 40 mg tablet,delayed 40 mg PO QPM 10/03/22 10/03/22 History release potassium chloride 20 mEq 60 meq PO DAILY 10/03/22 10/03/22 History tablet,extended release(part/cryst) (Klor-Con M) pravastatin 80 mg tablet 80 mg PO DAILY 10/03/22 10/03/22 History spironolactone 50 mg tablet 50 mg PO DAILY 10/03/22 10/03/22 History tamsulosin 0.4 mg capsule 0.8 mg PO DAILY 10/03/22 10/03/22 History tizanidine 2 mg tablet 2 - 4 mg PO Q8H PRN muscle spasm 10/03/22 10/03/22 History Allergies Allergy/AdvReac Type Severity Reaction Status Date / Time terazosin Allergy Severe Shortness Verified 10/03/22 13:33 of Breath amoxicillin [From Augmentin] Allergy Mild Diarrhea Verified 10/03/22 13:33 atenolol Allergy Mild Verified 10/03/22 13:33 clavulanic acid Allergy Mild Diarrhea Verified 10/03/22 13:33 [From Augmentin] lisinopril Allergy Unknown Verified 10/03/22 13:33 meperidine [From Demerol] Allergy Unknown Verified 10/03/22 13:33 trospium Allergy Unknown Verified 10/03/22 13:33 Exam Narrative: Exam Narrative: Exam (performed via interactive video with assistance of bedside nurse): General: Alert, cooperative, no acute distress, morbidly obese HEENT: Oral mucosa pink and moist without erythema, fair dentition Lungs: Clear to auscultation bilaterally without crackle or wheeze CV: Regular rate and rhythm without loud murmur rub or gallop Ext: 1+ pedal edema bilaterally Skin: No rashes, bruises or lesions appreciated on gross visualization of exposed skin Neuro: Alert, oriented x 3. CN III -VII, XI, XII grossly intact, strength and left left lower extremity was 4+/5, right lower extremity 2+/5 Const: Vital Signs, click to edit/add: Vital Signs - 24 hr 11/27/22 22:21 11/28/22 00:21 11/28/22 01:00 Temperature 97.4 F L 97.4 F L Pulse Rate [Pulse Oximeter] 83 113 H 71 Respiratory Rate 18 14 14 Blood Pressure [Ri ght Arm] Blood Pressure [Ri ght Upper Arm] 132/63 150/85 H 166/83 H Pulse Oximetry 97 94 94 Oxygen Delivery Me thod Room Air Room Air Room Air 11/28/22 02:00 11/28/22 03:00 11/28/22 04:49 Temperature 97.4 F L 98.0 F 98.0 F Pulse Rate [Pulse Oximeter] 110 H 104 H Respiratory Rate 14 18 18 Blood Pressure [Ri ght Arm] 176/86 H Blood Pressure [Ri ght Upper Arm] 191/98 H Pulse Oximetry 94 99 99 Oxygen Delivery Me thod Room Air Room Air Room Air Labs Labs: Short CBC 11/27/22 Range/Units 22:57 WBC 7.53 (4.50-11.00) K/uL Hgb 9.7 L (13.5-17.5) gm/dL Hct 32.5 L (37.0-53.0) % Plt Count 306 (140-440) K/uL BMP 11/27/22 22:57 Sodium 134 L Potassium 3.6 Chloride 101 Carbon Dioxide 23 BUN 19 Creatinine 1.3 Glucose 231 H Calcium 8.5 Cardiac Enzymes 11/27/22 Range/Units 22:57 Troponin I < 0.01 L (0.01-0.04) ng/mL Liver Function 11/27/22 Range/Units 22:57 Total Bilirubin 0.6 (0.1-1.5) mg/dL AST 18 (12-35) U/L ALT 16 (4-50) U/L Alkaline Phosphatase 78 (40-150) U/L Albumin 3.6 (3.3-5.0) g/dL Urine 11/28/22 Range/Units 04:25 Urine Color Yellow (Yellow) Urine Appearance Clear (Clear) Urine pH 6.5 (5.0-8.5) Ur Specific A[place] 1.020 (1.000-1.030) Urine Protein Negative (Negative) Urine Glucose (UA) Trace A (Negative) Assessment and Plan Assessment and plan (1) Weakness: Status: Acute Plan Recent lab: Reviewed see EMR for details Assessment and Plan: 1. Generalized weakness-unclear of cause. Although the patient reports that he is not having pain that is resulting in his inability to move, but is related to weakness. I believe that he probably is having some pain in his back and his knee that limits his ability to walk. Physical therapy to evaluate. Pain control with oxycodone. Will leave for rounding provider to obtain results of MRI that was done recently on the patient. 2. DM2-sliding scale insulin as well as Lantus 3. Neuropathy-on gabapentin 4. Gout-allopurinol 5. Hypothyroidism-on Synthroid 6. Hypertension-on losartan and metoprolol 7. GERD-on pantoprazole 8. Dyslipidemia-continue pravastatin 9. BPH-on Flomax 10. Anemia-check fecal occult blood testing 11. DVT prophylaxis-SCDs 12. CODE STATUS full code discussed with patient Chart review was performed as well as evaluation of the patient via video. Thank you for involving ehospitalist. Please contact [phone] if further assistance is needed.
--- NOTE | 2022-11-28 07:20 | PC.NURSE ---
Pt alert and oriented x3, afebrile. Pt reports 3/10 pain in right knee and back, pain managed with Scheduled medications. Pt has right leg weakness, and bilateral edema in extremities. Pt has a indented area above his coccyx, the skin is intact and pink, pt reports having had this indent most of his life. Pt reports I don't feel safe to go back home, I need more help because I feel so weak, MD aware social consult and physical and occupational therapy ordered. Pt is able to turn on side in bed. Pt is tolerating regular diet and is a ceiling lift. Pt is voiding with graduated cylinder.
[2022-11-28] MEDS: ACETAMINOPHEN 325 MG TABLET 650 MG PO (13:34)
[2022-11-28] MEDS: OXYCODONE 5 MG TABLET PO ×2 (13:35→18:16)
--- NOTE | 2022-11-28 14:35 | P.IMHP_ITS ---
Hospitalist- H&P: ROX History of Present Illness Time Seen by Provider: 12:00 Date Seen: 11/28/22 Chief complaint: increasing falls Narrative: Zoltan Olivera is a 72 year old man presents with a 2 day history of increasing weakness of the right leg. Chronically his right leg is weaker than the left. Has known severe lumbar spinal stenosis affecting the right side more so than the left. Recently found to also have an L2-L3 disc protrusion with foraminal stenosis affecting the right side in October 2022 when he was hospitalized for the low back pain radiating down the right leg. Did receive a steroid injection while hospitalized in October at [facility], which did not improve the pain. Hospitalized for roughly 2 weeks and then transition to a transitional care unit at [place], [place] for additional 2 weeks. Has been at home the last 2-3 weeks with his . Things were seemingly stable until 2 days ago. Couple of days ago he noticed the increase sense of weakness in the right leg. The pain in his low back and right leg are actually improving slightly. Within the last 24 hours he has had 2 falls. He indicates quite clearly that it is not related to pain but it is because of weakness. This weakness has been evolving during these 2 days. If anything the pain is noticeably less problematic for him. After 1 of these falls he was transported to [place], [place] where he was assessed in the emergency department and subsequently discharged home. No additional imaging studies were performed during this evaluation process. Patient and return home and his condition continue to worsen. The 2nd fall occurred just after he returned home from the emergency department at [facility]. While trying to walk up 2 steps to enter the house he lost his balance and fell. He had no head trauma or injury with either fall. First fall culminated in him falling on his knees and then to his side. Second fall, needed with him falling on his buttock and then to his side. He has no pain in his back or hips or knees or ankles or lower extremities subsequent to these falls different than what he ordinarily has. After this 2nd fall he decided to our emergency department where after assessment he was admitted. Of importance, upon my questioning him, he acknowledges that he has developed urinary incontinence over the course of the last 10-14 days. He tells me he has never had anything like this before. He has the urge and sense and awareness to urinate, by the time he gets up to go to the bathroom he has already urinated. Denies dysuria, urgency, frequency, hematuria. Denies polyuria or polydipsia. Denies abdominal pain or discomfort. Denies fevers, rigors, diaphoresis. He has not had urinary incontinence like this in the past. Has chronic constipation. Has not had stool incontinence. Review of Systems Status of ROS: Reports: 10 or more systems reviewed and unremarkable except as noted in History and below Narrative: Denies any focal motor neurologic deficits aside from what I specified above in regard to the lower extremity weakness and evolving urinary incontinence. No angina, anginal equivalent, syncope, near syncope, nausea, vomiting, palpitations, chest fluttering, cough, dyspnea, claudication. Denies myalgias, arthralgias. Has baseline bilateral lower extremity peripheral neuropathy. Denies bleeding, bruising, petechiae. Denies depression, anxiety, intrusive thoughts. Denies alcohol consumption, tobacco use, street or recreational drug use. [facility] Medical History (Updated 11/28/22 @ 15:14 by Saturnino Pedraza MD) Benign prostatic hyperplasia ?N40.0 - Benign prostatic hyperplasia without lower urinary tract symptoms (ICD-10) Primary hypothyroidism ?E03.9 - Hypothyroidism, unspecified (ICD-10) Prostate nodule ?N40.2 - Nodular prostate without lower urinary tract symptoms (ICD-10) Hyperlipidemia ?E78.5 - Hyperlipidemia, unspecified (ICD-10) Chronic kidney disease ?N18.9 - Chronic kidney disease, unspecified (ICD-10) Essential hypertension ?I10 - Essential (primary) hypertension (ICD-10) Uric acid renal calculus ?N20.0 - Calculus of kidney (ICD-10) Nephrolithiasis ?N20.0 - Calculus of kidney (ICD-10) History of urinary tract infection ?Z87.440 - Personal history of urinary (tract) infections (ICD-10) Recurrent major depressive disorder ?F33.9 - Major depressive disorder, recurrent, unspecified (ICD-10) Chronic low back pain ?M54.50 - Low back pain, unspecified (ICD-10) ?G89.29 - Other chronic pain (ICD-10) Declining functional status ?R53.81 - Other malaise (ICD-10) Iron deficiency anemia ?D50.9 - Iron deficiency anemia, unspecified (ICD-10) Chronic idiopathic constipation ?K59.04 - Chronic idiopathic constipation (ICD-10) Atrial paroxysmal tachycardia ?I47.1 - Supraventricular tachycardia (ICD-10) Morbid obesity with BMI of 50.0-59.9, adult ?E66.01 - Morbid (severe) obesity due to excess calories (ICD-10) ?Z68.43 - Body mass index [BMI] 50.0-59.9, adult (ICD-10) Physical debility ?R53.81 - Other malaise (ICD-10) Diabetic peripheral neuropathy associated with type 2 diabetes mellitus ?E11.42 - Type 2 diabetes mellitus with diabetic polyneuropathy (ICD-10) Diabetes mellitus type 2 in obese ?E11.69 - Type 2 diabetes mellitus with other specified complication (ICD-10) ?E66.9 - Obesity, unspecified (ICD-10) Spinal stenosis, lumbar region without neurogenic claudication ?M48.061 - Spinal stenosis, lumbar region without neurogenic claudication (ICD-10) Lumbar radiculopathy, chronic ?M54.16 - Radiculopathy, lumbar region (ICD-10) BRITTNEY (obstructive sleep apnea) ?G47.33 - Obstructive sleep apnea (adult) (pediatric) (ICD-10) Social History What is your current living situation?: I presently have a place to live Problems where you live: no known problems Problems where you live details: no known problems In the past 12 months, utilities in danger of being shut off: no In the past 12 mos, have been you worried that your food would run out before you had money to buy more?: never true In the past 12 mos, the food you bought just didn't last and you didn't have money to buy more?: never true Smoking Status: Former smoker Do you use any of these nicotine containing products: None Second hand tobacco smoke exposure: Yes How often do you have a drink containing alcohol: never How often do you have six or more drinks on one occasion: Never AUDIT-C Alcohol total score: 0 Non-prescribed substance use: denies use Caffeine: No How often does anyone, including family, friends and others, physically hurt you : never How often does anyone, including family, friends and others, insult or talk down to you: never How often does anyone, including family, friends and others, threaten you with harm: never How often does anyone, including family, friends and others, scream or curse at you: never service: No Meds Home Medications and Allergies Home Medications Medication Instructions Recorded Confirmed Type allopurinol 300 mg tablet 300 mg PO DAILY 10/03/22 11/28/22 History glipizide 5 mg tablet, extended 5 mg PO BID 10/03/22 11/28/22 History release 24 hr insulin glargine 100 unit/mL (3 41 unit subcut HS 10/03/22 11/28/22 History mL) subcutaneous pen (Lantus Solostar U-100 Insulin) levothyroxine 100 mcg tablet 100 mcg PO DAILY 10/03/22 11/28/22 History levothyroxine 125 mcg tablet 125 mcg PO DAILY 10/03/22 11/28/22 History liraglutide 0.6 mg/0.1 mL (18 mg/3 1.8 mg subcut DAILY 10/03/22 11/28/22 History mL) subcutaneous pen injector (Victoza 3-Frankie) losartan 50 mg tablet 50 mg PO DAILY 10/03/22 11/28/22 History magnesium oxide 400 mg (241.3 mg 400 mg PO DAILY 10/03/22 11/28/22 History magnesium) tablet metformin 500 mg tablet,extended 500 mg PO DAILY 10/03/22 11/28/22 History release 24 hr metoprolol succinate 200 mg 200 mg PO DAILY 10/03/22 11/28/22 History tablet,extended release 24 hr pantoprazole 40 mg tablet,delayed 40 mg PO QPM 10/03/22 11/28/22 History release potassium chloride 20 mEq 60 meq PO DAILY 10/03/22 11/28/22 History tablet,extended release(part/cryst) (Klor-Con M) pravastatin 80 mg tablet 80 mg PO HS 10/03/22 11/28/22 History spironolactone 50 mg tablet 50 mg PO DAILY 10/03/22 11/28/22 History tamsulosin 0.4 mg capsule 0.8 mg PO HS 10/03/22 11/28/22 History tizanidine 2 mg tablet 2 - 4 mg PO Q8H PRN muscle spasm 10/03/22 11/28/22 History acetaminophen 500 mg tablet 1,000 mg PO Q6H PRN 11/28/22 11/28/22 History (Tylenol Extra Strength) duloxetine 30 mg capsule,delayed 30 mg PO BID 11/28/22 11/28/22 History release gabapentin 600 mg tablet 900 mg PO 3XD 11/28/22 11/28/22 History lidocaine 4 % topical patch 1 patch topical DAILY PRN 11/28/22 11/28/22 History (Lidocare) nystatin 100,000 unit/gram topical 1 applic topical 3XD PRN 11/28/22 11/28/22 History powder sodium bicarbonate 650 mg tablet 650 mg PO TID 11/28/22 11/28/22 History Allergies Allergy/AdvReac Type Severity Reaction Status Date / Time terazosin Allergy Severe Shortness Verified 10/03/22 13:33 of Breath amoxicillin [From Augmentin] Allergy Mild Diarrhea Verified 10/03/22 13:33 atenolol Allergy Mild Verified 10/03/22 13:33 clavulanic acid Allergy Mild Diarrhea Verified 10/03/22 13:33 [From Augmentin] lisinopril Allergy Unknown Verified 10/03/22 13:33 meperidine [From Demerol] Allergy Unknown Verified 10/03/22 13:33 trospium Allergy Unknown Verified 10/03/22 13:33 Exam Narrative: Exam Narrative: Examine the patient in his hospital room. He is sitting upright in a recliner chair with legs bent at the knees with feet touching the floor. Appears comfortable and in no acute distress. Vision and hearing are grossly normal. Alert, oriented to self, place, time, situation. Articulate, cooperative, friendly. Mood and affect are congruent. Appears appropriately concerned. Breen and obese. No icterus or conjunctival injection. Pupils equally round and reactive to light and accommodation. Extraocular muscles are intact. Midline nasal septum. Normal nasal mucosa. Dentition in fair repair. Mucosa is moist. Neck is full. Neck is supple. Midline trachea. No JVD, hepatojugular reflux, or carotid bruits. No head and neck lymphadenopathy. Lungs are clear to auscultation, without wheezing, rhonchi, or rales. Chest wall excursions are full. Heart tones with regular rhythm, normal S1-S2, without murmur, gallop, or rub. Abdomen with active bowel sounds, soft, nontender. No rebound or guarding. Edema up to the knees bilaterally. Muscle strength testing: Right hip 4/5, left hip 5/5; right thigh flexion and extension 3 to 4/5, left thigh flexion and extension 5/5; right plantar and dorsiflexion 3/5, left plantar and dorsiflexion 4/5. Unable to elicit deep tendon reflexes in the lower extremities including I am not able to elicit the Babinski or plantar extension reflex. Const: Vital Signs, click to edit/add: Vital Signs - 24 hr 11/27/22 22:21 11/28/22 00:21 11/28/22 01:00 Temperature 97.4 F L 97.4 F L Pulse Rate [Pulse Oximeter] 83 113 H 71 Respiratory Rate 18 14 14 Blood Pressure [Ri ght Arm] Blood Pressure [Ri ght Upper Arm] 132/63 150/85 H 166/83 H Blood Pressure [ri ght forearm] Pulse Oximetry 97 94 94 Oxygen Delivery Me thod Room Air Room Air Room Air 11/28/22 02:00 11/28/22 03:00 11/28/22 04:49 Temperature 97.4 F L 98.0 F 98.0 F Pulse Rate [Pulse Oximeter] 110 H 104 H Respiratory Rate 14 18 18 Blood Pressure [Ri ght Arm] 176/86 H Blood Pressure [Ri ght Upper Arm] 191/98 H Blood Pressure [ri ght forearm] Pulse Oximetry 94 99 99 Oxygen Delivery Me thod Room Air Room Air Room Air 11/28/22 07:00 11/28/22 07:00 11/28/22 11:00 Temperature 98.7 F Pulse Rate [Pulse Oximeter] 79 79 76 Respiratory Rate 12 18 Blood Pressure [Ri ght Arm] Blood Pressure [Ri ght Upper Arm] Blood Pressure [ri ght forearm] 157/73 H 170/66 H Pulse Oximetry 92 96 Oxygen Delivery Me thod CPAP CPAP Documenting provider has reviewed patient's vital signs: yes Hospitalist - H&P: Result Labs Labs: Short CBC 11/27/22 Range/Units 22:57 WBC 7.53 (4.50-11.00) K/uL Hgb 9.7 L (13.5-17.5) gm/dL Hct 32.5 L (37.0-53.0) % Plt Count 306 (140-440) K/uL BMP 11/27/22 22:57 Sodium 134 L Potassium 3.6 Chloride 101 Carbon Dioxide 23 BUN 19 Creatinine 1.3 Glucose 231 H Calcium 8.5 Cardiac Enzymes 11/27/22 Range/Units 22:57 Troponin I < 0.01 L (0.01-0.04) ng/mL Liver Function 11/27/22 Range/Units 22:57 Total Bilirubin 0.6 (0.1-1.5) mg/dL AST 18 (12-35) U/L ALT 16 (4-50) U/L Alkaline Phosphatase 78 (40-150) U/L Albumin 3.6 (3.3-5.0) g/dL Urine 11/28/22 Range/Units 04:25 Urine Color Yellow (Yellow) Urine Appearance Clear (Clear) Urine pH 6.5 (5.0-8.5) Ur Specific [place] 1.020 (1.000-1.030) Urine Protein Negative (Negative) Urine Glucose (UA) Trace A (Negative) Imaging CT scan - head: Attestation: I have reviewed the pertinent imaging results. Radiologist's impression: IMPRESSION: 1. No acute findings. 2. Nonspecific white matter disease, typical of chronic microvascular disease. AP pelvis and two view x-ray of right hip: Attestation: I have reviewed the pertinent imaging results. Radiologist's impression: AP pelvis and 2 views of the right hip. COMPARISON: No prior. FINDINGS: CAM morphology of the proximal femurs bilaterally. Mild degenerative changes of the hips. Os acetabuli on the right. No acute fracture. There are degenerative changes within the spine. IMPRESSION: No acute fracture. Assessment and Plan Assessment and plan (1) Suspected cauda equina syndrome: Problem comment: Evolving weakness right lower extremity and evolving urinary incontinence Status: Acute (2) Spinal stenosis, lumbar region without neurogenic claudication: Problem comment: MRI in October 2022 at [place], [place] demonstrated severe lumbar spinal stenosis with lumbar disc extrusion at L2-L3 and foraminal narrowing. Dr. Nestor Pitts, Neurosurgeon, [facility], indicated patient not a surgical candidate due to lack of cauda equina symptoms at that time. Status: Acute (3) Lumbar radiculopathy, chronic: Problem comment: Status post epidural injection October 2022, [place], [place]. Status: Acute (4) Weakness: Status: Acute (5) Declining functional status: Status: Acute (6) Physical debility: Status: Acute (7) Diabetes mellitus type 2 in obese: Status: Acute (8) Diabetic peripheral neuropathy associated with type 2 diabetes mellitus: Status: Acute (9) Morbid obesity with BMI of 50.0-59.9, adult: Status: Acute (10) Chronic idiopathic constipation: Status: Acute Plan 1. I called in was able to speak directly with Dr. Nestor Pitts, neurosurgeon, [place], [place], who has previously seen this patient. Dr. Pitts indicated he would not consider admitting this patient because we do not have a current MR scan. I indicated to him that we are not able to get an MR scan in [place] because we do not have that capability here in our hospital to obtain an MR scan on this obese man. Dr. Pitts suggested that we find some other institution that might be able to assessed him. He indicated he would be happy to see the patient if we can prove that he has cauda equina syndrome. He suggested we try to obtain an MR scan of the lumbosacral spine without and with contrast. 2. After calling multiple [facility] indicated they would be able to put him on a waiting list. I spoke with Dr. Neeraj Moy, television audio engineer, who indicated it would be appropriate to transfer the patient to them when they do have bed availability so that additional testing can be undertaken. He suggested that should the patient's weakness worsens, urinary incontinence worsens, or he started developing increasing pain, that we consider administering dexamethasone. 3. Continue with current treatment efforts as presently instituted. 4. Patient agreeable to above stated plans and recommendations.
[2022-11-28] MEDS: GABAPENTIN 600 MG TABLET 900 MG PO ×2 (17:24→20:59)
[2022-11-28] MEDS: glipiZIDE XL 5 MG TAB PO (17:24)
[2022-11-28] MEDS: OMEPRAZOLE 20 MG CAPSULE DR 40 MG PO (17:24)
--- NOTE | 2022-11-28 20:25 | PC.NURSE ---
Nursing Care Hours: [id number] Pt this shift slept in until 1100 d/t having a late admission time. Alert and oriented, calm and cooperative. Pain in low back to groin area rated at 3-5/10, treated per eMAR. HTN. Stable on RA. Up to chair for lunch, pt states causes increased pain, so back to bed using ceiling lift. Use of urinal, clear orange u/o. Held morning and evening insulin d/t pt not wanting to eat at those times, nor have a snack. Pt anxious about transfer to [place] but pleased with hospitalist looking out for him. No BM. Skin intact. Bilat pitting edema.
[2022-11-28] MEDS: PRAVASTATIN SODIUM 20 MG TABLET 80 MG PO (21:00)
[2022-11-28] MEDS: DULOXETINE 30 MG CAPSULE DR PO (21:02)
[2022-11-28] MEDS: SODIUM BICARBONATE 650 MG TABLET PO (21:06)
--- NOTE | 2022-11-29 01:00 | PC.NURSE ---
pt transferred to [facility] via [facility] at 2304. ceiling lift. no c/o pain at d/c.
== END 2022-11-28 23:04 | disposition short-term general hospital (02) ==
LOC: ED 11-28 00:45 → MEDSURG 11-28 04:36
PROVIDERS: Admitting Provider Family Medicine; Emergency Provider Student in an Organized Health Care Education/Training Program; PCP Family Medicine; Visit Provider Family Medicine
DX: R53.1 Weakness (principal); R68.89 Other general symptoms and signs; Z73.89 Other problems related to life management difficulty; M48.061 Spinal stenosis, lumbar region without neurogenic claudication; M54.16 Radiculopathy, lumbar region; R53.81 Other malaise; M25.551 Pain in right hip; I10 Essential (primary) hypertension; E78.5 Hyperlipidemia, unspecified; E03.9 Hypothyroidism, unspecified; E11.69 Type 2 diabetes mellitus with other specified complication; E66.9 Obesity, unspecified; E11.42 Type 2 diabetes mellitus with diabetic polyneuropathy; E66.01 Morbid (severe) obesity due to excess calories; Z68.43 Body mass index [BMI] 50.0-59.9, adult; K59.04 Chronic idiopathic constipation; R32 Unspecified urinary incontinence; K21.9 Gastro-esophageal reflux disease without esophagitis; M10.9 Gout, unspecified; N40.0 Benign prostatic hyperplasia without lower urinary tract symptoms; R29.6 Repeated falls; Z79.84 Long term (current) use of oral hypoglycemic drugs; Z87.440 Personal history of urinary (tract) infections; Z86.2 Personal history of diseases of the blood and blood-forming organs and certain disorders involving the immune mechanism; Z87.891 Personal history of nicotine dependence; Z20.822 Contact with and (suspected) exposure to COVID-19
CPT/HCPCS: 36415; 70450; 73502; 80053; 81001; 82270; 82962; 84484; 85025; 87631; 93005; 96360; 96372; 97162; 97165; 97530; 99283; 99285; A9270; G0378; J7030

== ENCOUNTER 2022-11-28 22:51 | Outpatient (CLI) | payer MEDICARE, BC, SELFPAY | END 2022-11-28 22:52 | disposition home or self-care (01) | LOC: AMB 12-01 12:41 | PROVIDERS: PCP Family Medicine; Visit Provider Family Medicine | DX: R53.1 Weakness (principal) | CPT/HCPCS: A0425; A0428 ==

== ENCOUNTER 2022-12-31 20:09 | Outpatient (CLI) | payer MEDICARE, BC, SELFPAY | END 2022-12-31 20:10 | disposition home or self-care (01) | LOC: AMB 01-01 18:47 | PROVIDERS: PCP Family Medicine; Visit Provider Internal Medicine | DX: S39.92XA Unspecified injury of lower back, initial encounter (principal); S09.90XA Unspecified injury of head, initial encounter; W06.XXXA Fall from bed, initial encounter; Y92.003 Bedroom of unspecified non-institutional (private) residence as the place of occurrence of the external cause | CPT/HCPCS: A0425; A0429 ==

== ENCOUNTER 2022-12-31 20:59 | Observation (INO) | payer MEDICARE, BC, SELFPAY ==
--- NOTE | 2022-12-31 21:00 | ED.NURSE ---
Patient given requested soft neck collar for comfort from neck spasms
[2022-12-31 21:08] VITALS: BP 170/74; PULSE 88; RESP 20; TEMP 36.2; O2SAT 93; BMI 46.7
--- NOTE | 2022-12-31 21:14 | CRLHL7_ITS ---
For Patients: As a result of the Century Cures Act, medical imaging exams and procedure reports are released immediately into your electronic medical record. You may view this report before your referring provider. If you have questions, please contact your health care provider. INDICATION: Fall. TECHNIQUE: Noncontrast CT of the head with multiplanar reformat in bone and soft tissue algorithms. COMPARISON: CT head dated 11/27/2022. FINDINGS: No acute intracranial hemorrhage. The west-white matter interface is preserved. There is scattered nonspecific white-matter hypoattenuation typical mild small vessel ischemic changes. Mild global parenchymal loss with ex vacuo prominence of the supratentorial ventricles. Carotid siphon atherosclerotic disease. The skull base and calvarium are within normal limits. Orbits are unremarkable. Paranasal sinuses and mastoid air cells are predominantly clear. IMPRESSION: No acute intracranial abnormality. Please note that all CT scans at this facility use dose modulation, iterative reconstruction, and/or weight-based dosing when appropriate to reduce radiation dose to as low as reasonably achievable. Dictated by Gennaro Hendrix MD @ 12/31/2022 10:05:58 PM (Electronically Signed)
--- NOTE | 2022-12-31 21:14 | CRLHL7_ITS ---
For Patients: As a result of the Cures Act, medical imaging exams and procedure reports are released immediately into your electronic medical record. You may view this report before your referring provider. If you have questions, please contact your health care provider. INDICATION: Fall. TECHNIQUE: Noncontrast axial CT of the cervical spine with coronal and sagittal reformats are provided. COMPARISON: CT cervical spine dated 08/29/2020. FINDINGS: Normal alignment. No acute fracture or traumatic subluxation.The prevertebral soft tissues are within normal limits. No aggressive osseous lesion is identified. Flowing anterior osteophytes are noted throughout the cervical spine relative preservation of the disc spaces in keeping with diffuse idiopathic skeletal hyperostosis. Multilevel spondylosis with no high-grade spinal canal stenosis or neural foraminal narrowing. IMPRESSION: No acute fracture or traumatic subluxation. Please note that all CT scans at this facility use dose modulation, iterative reconstruction, and/or weight-based dosing when appropriate to reduce radiation dose to as low as reasonably achievable. Dictated by Gennaro Hendrix MD @ 12/31/2022 10:12:22 PM (Electronically Signed)
--- NOTE | 2022-12-31 21:18 | ED.FALL ---
HPI - Fall General Chief Complaint: Fall/Minor Trauma Stated Complaint: Fall Time Seen by Provider: 12/31/22 21:10 History of Present Illness HPI Narrative: Patient is a 72-year-old gentleman who unfortunately has had her very difficult recent course with lower extremity weakness and lumbar stenosis. He was hospitalized briefly last month here at the [facility] before being transferred to [facility] where he spent the last 3 weeks. He is recently discharged and was doing reasonably well at home. He feels like his strength was built up significantly and [facility]. He was walking in his home tonight when he developed lower extremity weakness which was the original presenting symptom previously and patient fell to the floor hitting his head and injuring his neck. Patient describes no palpitations no nausea no vomiting no fevers no chills. He has no chest or abdominal pain. He is able to move his lower extremities to the normal extent it is not certain whether he can bear weight at this time. Patient otherwise had been doing well is very disappointed he had another fall. Patient is morbidly obese and takes a significant amount of medication. Related Data Home Medications Medication Instructions Recorded Confirmed allopurinol 300 mg tablet 300 mg PO DAILY 10/03/22 12/31/22 glipizide 5 mg tablet, extended 5 mg PO BID 10/03/22 12/31/22 release 24 hr insulin glargine 100 unit/mL (3 41 unit subcut HS 10/03/22 12/31/22 mL) subcutaneous pen (Lantus Solostar U-100 Insulin) levothyroxine 100 mcg tablet 100 mcg PO DAILY 10/03/22 12/31/22 levothyroxine 125 mcg tablet 125 mcg PO DAILY 10/03/22 12/31/22 liraglutide 0.6 mg/0.1 mL (18 mg/3 1.8 mg subcut DAILY 10/03/22 11/28/22 mL) subcutaneous pen injector (Casa Systemstoza 3-Frankie) magnesium oxide 400 mg (241.3 mg 400 mg PO DAILY 10/03/22 12/31/22 magnesium) tablet metformin 500 mg tablet,extended 500 mg PO DAILY 10/03/22 12/31/22 release 24 hr pantoprazole 40 mg tablet,delayed 40 mg PO QPM 10/03/22 12/31/22 release potassium chloride 20 mEq 60 meq PO DAILY 10/03/22 12/31/22 tablet,extended release(part/cryst) (Klor-Con M) pravastatin 80 mg tablet 80 mg PO HS 10/03/22 12/31/22 spironolactone 50 mg tablet 50 mg PO DAILY 10/03/22 12/31/22 tamsulosin 0.4 mg capsule 0.8 mg PO HS 10/03/22 12/31/22 tizanidine 2 mg tablet 2 - 4 mg PO Q8H PRN muscle spasm 10/03/22 12/31/22 acetaminophen 500 mg tablet 1,000 mg PO Q6H PRN 11/28/22 12/31/22 (Tylenol Extra Strength) duloxetine 30 mg capsule,delayed 30 mg PO BID 11/28/22 12/31/22 release gabapentin 600 mg tablet 900 mg PO 3XD 11/28/22 12/31/22 lidocaine 4 % topical patch 1 patch topical DAILY PRN 11/28/22 11/28/22 (Lidocare) nystatin 100,000 unit/gram topical 1 applic topical 3XD PRN 11/28/22 11/28/22 powder sodium bicarbonate 650 mg tablet 650 mg PO TID 11/28/22 12/31/22 Allergies Allergy/AdvReac Type Severity Reaction Status Date / Time terazosin Allergy Severe Shortness Verified 12/31/22 21:08 of Breath amoxicillin [From Augmentin] Allergy Mild Diarrhea Verified 12/31/22 21:08 atenolol Allergy Mild Verified 12/31/22 21:08 clavulanic acid Allergy Mild Diarrhea Verified 12/31/22 21:08 [From Augmentin] lisinopril Allergy Unknown Verified 12/31/22 21:08 meperidine [From Demerol] Allergy Unknown Verified 12/31/22 21:08 trospium Allergy Unknown Verified 12/31/22 21:08 Review of Systems Status of ROS: Reports: 10 or more systems reviewed and unremarkable except as noted in History and below [facility] Medical History Benign prostatic hyperplasia ?N40.0 - Benign prostatic hyperplasia without lower urinary tract symptoms (ICD-10) Primary hypothyroidism ?E03.9 - Hypothyroidism, unspecified (ICD-10) Prostate nodule ?N40.2 - Nodular prostate without lower urinary tract symptoms (ICD-10) Hyperlipidemia ?E78.5 - Hyperlipidemia, unspecified (ICD-10) Chronic kidney disease ?N18.9 - Chronic kidney disease, unspecified (ICD-10) Essential hypertension ?I10 - Essential (primary) hypertension (ICD-10) Uric acid renal calculus ?N20.0 - Calculus of kidney (ICD-10) Nephrolithiasis ?N20.0 - Calculus of kidney (ICD-10) History of urinary tract infection ?Z87.440 - Personal history of urinary (tract) infections (ICD-10) Recurrent major depressive disorder ?F33.9 - Major depressive disorder, recurrent, unspecified (ICD-10) Chronic low back pain ?M54.50 - Low back pain, unspecified (ICD-10) ?G89.29 - Other chronic pain (ICD-10) Declining functional status ?R53.81 - Other malaise (ICD-10) Iron deficiency anemia ?D50.9 - Iron deficiency anemia, unspecified (ICD-10) Chronic idiopathic constipation ?K59.04 - Chronic idiopathic constipation (ICD-10) Atrial paroxysmal tachycardia ?I47.1 - Supraventricular tachycardia (ICD-10) Morbid obesity with BMI of 50.0-59.9, adult ?E66.01 - Morbid (severe) obesity due to excess calories (ICD-10) ?Z68.43 - Body mass index [BMI] 50.0-59.9, adult (ICD-10) Physical debility ?R53.81 - Other malaise (ICD-10) Diabetic peripheral neuropathy associated with type 2 diabetes mellitus ?E11.42 - Type 2 diabetes mellitus with diabetic polyneuropathy (ICD-10) Diabetes mellitus type 2 in obese ?E11.69 - Type 2 diabetes mellitus with other specified complication (ICD-10) ?E66.9 - Obesity, unspecified (ICD-10) Spinal stenosis, lumbar region without neurogenic claudication ?M48.061 - Spinal stenosis, lumbar region without neurogenic claudication (ICD-10) Lumbar radiculopathy, chronic ?M54.16 - Radiculopathy, lumbar region (ICD-10) BRITTNEY (obstructive sleep apnea) ?G47.33 - Obstructive sleep apnea (adult) (pediatric) (ICD-10) Social History What is your current living situation?: I presently have a place to live Problems where you live: no known problems Problems where you live details: no known problems In the past 12 months, utilities in danger of being shut off: no In the past 12 mos, have been you worried that your food would run out before you had money to buy more?: never true In the past 12 mos, the food you bought just didn't last and you didn't have money to buy more?: never true Smoking Status: Former smoker Do you use any of these nicotine containing products: None Second hand tobacco smoke exposure: Yes How often do you have a drink containing alcohol: never How often do you have six or more drinks on one occasion: Never AUDIT-C Alcohol total score: 0 Non-prescribed substance use: denies use Caffeine: No How often does anyone, including family, friends and others, physically hurt you: never How often does anyone, including family, friends and others, insult or talk down to you: never How often does anyone, including family, friends and others, threaten you with harm: never How often does anyone, including family, friends and others, scream or curse at you: never service: No Exam Narrative: Exam Narrative: EXAM GENERAL: Patient appears in no acute distress but morbidly obese EYES: No scleral icterus. ENT: Tympanic membranes and oropharynx normal. THYROID: no thyroid nodules or thyromegaly. LYMPH: No supraclavicular or cervical lymphadenopathy. SKIN: Visible skin seen during exam normal or with benign process only. EXT: Patient is complex wrappings and a braces on the lower extremities. HEART: Regular rate and rhythm with no murmurs, rubs, or gallops. LUNGS: Clear to auscultation bilaterally with no crackles or wheezes. ABD: Soft, non tender, non distended. PSYCH: Good eye contact, speech is not pressured. Neurologic cranial nerves 2-12 grossly intact no focal defects. Const: Vital Signs, click to edit/add: Vital Signs - 24 hr 12/31/22 21:08 Temperature 97.2 F L Pulse Rate [Right Pulse Oximeter] 88 Respiratory Rate 20 Blood Pressure [Ri ght Upper Arm] 170/74 H Pulse Oximetry 93 Oxygen Delivery Me thod Room Air Course Course ED Course: Patient will have CT head neck EKG basic metabolic panel and CBC. I have taken time to review his previous evaluation which is very similar to tonight. She currently has no discomfort. Reevaluation(s) Reevaluation #1: Patient seen examined. He is not able to comfortably walk as he is terrified that he is going to fall again. He does seem to move all extremities does appear to have any focal neurologic defects. Vital Signs Vital signs: Initial Vital Signs Temperature 97.2 F L 12/31/22 21:08 Temperature Source Temporal Artery Scan 12/31/22 21:08 Pulse Rate 88 12/31/22 21:08 Pulse Rhythm Regular 12/31/22 21:08 Respiratory Rate 20 12/31/22 21:08 Blood Pressure 170/74 H 12/31/22 21:08 Blood Pressure Mean 106 H 12/31/22 21:08 Pulse Oximetry 93 12/31/22 21:08 Oxygen Delivery Method Room Air 12/31/22 21:08 Vital Signs Temperature 97.2 F L 12/31/22 21:08 Pulse Rate 88 12/31/22 21:08 Respiratory Rate 20 12/31/22 21:08 Blood Pressure 170/74 H 12/31/22 21:08 Pulse Oximetry 93 12/31/22 21:08 Oxygen Delivery Method Room Air 12/31/22 21:08 Temperature 97.2 F L 12/31/22 21:08 Pulse Rate 88 12/31/22 21:08 Respiratory Rate 20 12/31/22 21:08 Blood Pressure 170/74 H 12/31/22 21:08 Pulse Oximetry 93 12/31/22 21:08 Oxygen Delivery Method Room Air 12/31/22 21:08 MDM - Fall MDM Narrative Medical decision making narrative: Patient is a 72-year-old gentleman who unfortunately has been repeatedly admitted to long-term care centers as well as on transitional care centers for a spinal stenosis with lower extremity weakness. Patient recently completed 3 week hospitalization at [facility] and feels like he made good improvement in his strength of his lower extremities. Unfortunately at home where lives with his he had episode tonight where he became extremely weak and fell to the floor. He presents to the emergency room with GCS of 15. He complains of head neck pain and CT head neck are unremarkable. Laboratory studies are largely unchanged from previous with slight lowering of his hemoglobin. Vital signs were stable. We did attempt to get him up moving around however he feels like he is too unsteady and too much weight risk to try to go home. Patient understands the consequences of not beeing able to walk is potentially repeating long inpatient/rehab facility stays. Patient is uncomfortable going home in given his history of spinal stenosis I do think placing him observation for safety is reasonable. 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 Lab Data Labs: Lab Results 12/31/22 Range/Units 21:40 WBC 7.75 (4.50-11.00) K/uL RBC 3.79 L (4.30-5.90) m/uL Hgb 8.6 L (13.5-17.5) gm/dL Hct 28.8 L (37.0-53.0) % MCV 76 L (80-100) fL MCH 23 L (26-34) pg MCHC 30 L (32-36) gm/dL RDW Coeff of Liana 18.4 H (11.5-15.5) % Plt Count 323 (140-440) K/uL Neut % (Auto) 73.3 H (42.0-72.0) % Lymph % (Auto) 16.3 L (20-44) % [place] % (Auto) 7.9 (0.0-11.0) % Eos % (Auto) 1.8 (0.0-7.0) % Baso % (Auto) 0.4 (0.0-3.0) % Neut # (Auto) 5.70 (1.7-7.0) K/uL Lymph # (Auto) 1.30 (0.90-2.90) K/uL [place] # (Auto) 0.60 (0.00-0.90) K/UL Eos # (Auto) 0.14 (0.00-0.50) K/uL Baso # (Auto) 0.03 (0.00-0.30) K/uL Abs Immat Gran (auto) 0.02 (0.00-0.30) K/uL Imm/Tot Granulo (auto) 0.3 % Sodium 140 (135-149) mmol/L Potassium 3.6 (3.6-5.1) mmol/L Chloride 106 (96-114) mmol/L Carbon Dioxide 26 (20-32) mmol/L Anion Gap 8 (7-15) mEq/L BUN 30 (7-30) mg/dL Creatinine 1.4 (0.5-1.5) mg/dL Estimated Creat Clear 61.88 Estimated GFR 54 ml/min Glucose 202 H (60-115) mg/dL Calcium 9.3 (8.4-10.6) mg/dL Total Bilirubin 0.3 (0.1-1.5) mg/dL AST 18 (12-35) U/L ALT 18 (4-50) U/L Alkaline Phosphatase 75 (40-150) U/L Total Protein 6.2 (6.0-8.3) g/dL Albumin 3.6 (3.3-5.0) g/dL Discharge Plan Discharge Clinical Impression: Syncope Patient Disposition: Admitted As Observation Condition: Stable Activity Level: Other Discharge Diet: Other Prescriptions: No Action tizanidine 2 mg tablet 2 - 4 mg PO Q8H PRN (Reason: muscle spasm) glipizide 5 mg tablet extended release 24hr 5 mg PO BID levothyroxine 100 mcg tablet 100 mcg PO DAILY Patient Comments: TOTAL DOSE = 225MCG potassium chloride [Klor-Con M20] 20 mEq tablet,ER particles/crystals 60 meq PO DAILY pravastatin 80 mg tablet 80 mg PO HS magnesium oxide 400 mg (241.3 mg magnesium) tablet 400 mg PO DAILY tamsulosin 0.4 mg capsule 0.8 mg PO HS pantoprazole 40 mg tablet,delayed release (DR/EC) 40 mg PO QPM levothyroxine 125 mcg tablet 125 mcg PO DAILY Patient Comments: TOTAL DOSE = 225MCG allopurinol 300 mg tablet 300 mg PO DAILY metformin 500 mg tablet extended release 24 hr 500 mg PO DAILY spironolactone 50 mg tablet 50 mg PO DAILY insulin glargine [Lantus Solostar U-100 Insulin] 100 unit/mL (3 mL) insulin pen 41 unit subcut HS Victoza 3-Frankie 0.6 mg/0.1 mL (18 mg/3 mL) pen injector 1.8 mg subcut DAILY gabapentin 600 mg tablet 900 mg PO 3XD nystatin 100,000 unit/gram powder 1 applic topical 3XD PRN duloxetine 30 mg capsule,delayed release(DR/EC) 30 mg PO BID sodium bicarbonate 650 mg tablet 650 mg PO TID acetaminophen [Tylenol Extra Strength] 500 mg tablet 1,000 mg PO Q6H PRN lidocaine [Lidocare] 4 % adhesive patch,medicated 1 patch topical DAILY PRN Rx Instructions: may leave on for up to 12 hrs Follow Up/Referrals: Grzegorz Wiggins MD [Primary Care Provider] -
[2022-12-31 21:51] LABS: Basophils Absolute Auto 0.03 K/uL (0.00-0.30); Basophils Percent Auto 0.4 % (0.0-3.0); Eosinophils Absolute Auto 0.14 K/uL (0.00-0.50); Eosinophils Percent Auto 1.8 % (0.0-7.0); Hematocrit 28.8 % (37.0-53.0); Hemoglobin* 8.6 gm/dL (13.5-17.5); Immature Granulocytes Abs Auto 0.02 K/uL (0.00-0.30); Immature Granulocytes Pct Auto 0.3 %; Lymphocytes Percent Auto 16.3 % (20-44); Mean Corpuscular HGB Conc 30 gm/dL (32-36); Mean Corpuscular Hemoglobin 23 pg (26-34); Mean Corpuscular Volume 76 fL (80-100); Monocytes Percent Auto 7.9 % (0.0-11.0); Neutrophils Percent Auto 73.3 % (42.0-72.0); Platelet Count* 323 K/uL (140-440); RDW Coefficient of Variation % 18.4 % (11.5-15.5); Red Blood Count 3.79 m/uL (4.30-5.90); White Blood Count* 7.75 K/uL (4.50-11.00)
[2022-12-31 21:54] LABS: Slide Review Reflex No
[2022-12-31 22:03] LABS: Albumin* 3.6 g/dL (3.3-5.0); Chloride* 106 mmol/L (96-114); Sodium* 140 mmol/L (135-149)
[2022-12-31 22:04] LABS: Potassium* 3.6 mmol/L (3.6-5.1)
[2022-12-31 22:06] LABS: Alanine Aminotransferase* 18 U/L (4-50); Alkaline Phosphatase* 75 U/L (40-150); Anion Gap 8 mEq/L (7-15); Aspartate Amino Transferase* 18 U/L (12-35); Bilirubin Total* 0.3 mg/dL (0.1-1.5); Blood Urea Nitrogen* 30 mg/dL (7-30); Carbon Dioxide* 26 mmol/L (20-32); Creatinine* 1.4 mg/dL (0.5-1.5); Est. Creatinine Clearance* 61.88; Estimated Glomerular Filt Rate 54 ml/min; Glucose* 202 mg/dL (60-115); Total Protein* 6.2 g/dL (6.0-8.3)
[2022-12-31 22:07] LABS: Calcium* 9.3 mg/dL (8.4-10.6)
--- NOTE | 2022-12-31 23:07 | ED.NURSE ---
patient up to the edge of the bed with staff. Patient states that he feels unsafe at home due to his legs feeling like they are going to give out at any unknown moment.
--- NOTE | 2022-12-31 23:58 | P.IMHP_ITS ---
Hospitalist- H&P: ROX History of Present Illness Date Seen: 12/31/22 Chief complaint: Fall Narrative: Zoltan Olivera is a 72 year old male with diabetes, morbid obesity, multilevel lumbar disc disease and spinal stenosis admitted from the emergency department for leg weakness and inability to walk. Patient was initially hospitalized at [facility] in October for back pain radiating down his right leg. He was seen by neuro surgery and had an MRI. He had a steroid injection in the hospital at [facility] which did not help. He was hospitalized for a couple weeks and then transitioned to rehab stay at [facility]. After that he was discharged home for his with his for a couple weeks before he had a fall at home due to leg weakness and was admitted to [facility] briefly and then transferred to [facility]. He was evaluated there by neuro surgery including an MRI which showed Severe central and paracentral canal stenosis at L2-3, worse on the right and also severe central canal stenosis at L3-4 and L4-5 levels. He had a caudal migration of an L2-3 disc herniation causing severe right lateral recess stenosis posterior to the vertebral body of L3. The central canal at L5-S1 is patent and there is evidence of a prior right L5 hemilaminectomy. There is some mild foraminal stenosis at L4-5 and moderate to severe foraminal stenosis at L5- S1 bilaterally. Overall this is unchanged from previous MRI done at [facility] in October. At both [facility] and at [facility] he was felt not to be a surgical candidate. He was referred back to [facility] for outpatient spine surgery followup which is scheduled the of January. He was transitioned to [facility]. He was there until discharged yesterday. He reports he had remarkable improvement in his leg weakness. At discharge they note he was 5/5 strength in his lower extremities except for right hip flexion which was reportedly for over 5. He reports he could walk 200 ft with his walker. Today he was walking and felt like his legs are going to give out. He got close to his bed with the hope that he could lower himself onto the bed to avoid falling or getting injured. He fell back and missed the bed and hit his head and neck. With this he called 911 and came to our emergency department. When he fell he did not lose consciousness but he does report posterior neck pain. He reports that he has not been ill with fever cold cough shortness of breath or chest pain. He has been eating normally. His bowels have a tense he towards constipation. He he has no trouble with incontinence of bowel or bladder. He does report he had some urinary incontinence a month ago which he attributes to having urge to void but taking too long to get to the bathroom before he would lose control. He has diabetic peripheral neuropathy but no other focal numbness or tingling in his legs. This is unchanged recently. He reports now both legs are very weak, right more than left. He reports his pain is more in his neck rather than in his low back or leg. Review of Systems Narrative: No new symptoms of illness. [facility] Medical History (Updated 01/01/23 @ 00:21 by William Erickson MD) Benign prostatic hyperplasia ?N40.0 - Benign prostatic hyperplasia without lower urinary tract symptoms (ICD-10) Primary hypothyroidism ?E03.9 - Hypothyroidism, unspecified (ICD-10) Prostate nodule ?N40.2 - Nodular prostate without lower urinary tract symptoms (ICD-10) Hyperlipidemia ?E78.5 - Hyperlipidemia, unspecified (ICD-10) Chronic kidney disease ?N18.9 - Chronic kidney disease, unspecified (ICD-10) Essential hypertension ?I10 - Essential (primary) hypertension (ICD-10) Uric acid renal calculus ?N20.0 - Calculus of kidney (ICD-10) Nephrolithiasis ?N20.0 - Calculus of kidney (ICD-10) History of urinary tract infection ?Z87.440 - Personal history of urinary (tract) infections (ICD-10) Recurrent major depressive disorder ?F33.9 - Major depressive disorder, recurrent, unspecified (ICD-10) Chronic low back pain ?M54.50 - Low back pain, unspecified (ICD-10) ?G89.29 - Other chronic pain (ICD-10) Declining functional status ?R53.81 - Other malaise (ICD-10) Iron deficiency anemia ?D50.9 - Iron deficiency anemia, unspecified (ICD-10) Chronic idiopathic constipation ?K59.04 - Chronic idiopathic constipation (ICD-10) Atrial paroxysmal tachycardia ?I47.1 - Supraventricular tachycardia (ICD-10) Morbid obesity with BMI of 50.0-59.9, adult ?E66.01 - Morbid (severe) obesity due to excess calories (ICD-10) ?Z68.43 - Body mass index [BMI] 50.0-59.9, adult (ICD-10) Physical debility ?R53.81 - Other malaise (ICD-10) Diabetic peripheral neuropathy associated with type 2 diabetes mellitus ?E11.42 - Type 2 diabetes mellitus with diabetic polyneuropathy (ICD-10) Diabetes mellitus type 2 in obese ?E11.69 - Type 2 diabetes mellitus with other specified complication (ICD-10) ?E66.9 - Obesity, unspecified (ICD-10) Spinal stenosis, lumbar region without neurogenic claudication ?M48.061 - Spinal stenosis, lumbar region without neurogenic claudication (ICD-10) Lumbar radiculopathy, chronic ?M54.16 - Radiculopathy, lumbar region (ICD-10) BRITTNEY (obstructive sleep apnea) ?G47.33 - Obstructive sleep apnea (adult) (pediatric) (ICD-10) Surgical History (Updated 01/01/23 @ 00:12 by William Erickson MD) History of tonsillectomy ?Z90.89 - Acquired absence of other organs (ICD-10) History of arthroscopy of both knees ?Z98.890 - Other specified postprocedural states (ICD-10) History of lumbar laminectomy ?Z98.890 - Other specified postprocedural states (ICD-10) Social History (Updated 01/01/23 @ 00:13 by William Erickson MD) Narrative: He lives with his . Most of the last 3 months he has been hospitalized or in rehab for his back pain and leg weakness. Code status is full. 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 He does not smoke. He does not drink alcohol. He does not use recreational drugs. What is your current living situation?: I presently have a place to live Problems where you live: no known problems Problems where you live details: no known problems In the past 12 months, utilities in danger of being shut off: no In the past 12 mos, have been you worried that your food would run out before you had money to buy more?: never true In the past 12 mos, the food you bought just didn't last and you didn't have money to buy more?: never true Smoking Status: Former smoker Do you use any of these nicotine containing products: None Second hand tobacco smoke exposure: Yes How often do you have a drink containing alcohol: never How often do you have six or more drinks on one occasion: Never AUDIT-C Alcohol total score: 0 Non-prescribed substance use: denies use Caffeine: No How often does anyone, including family, friends and others, physically hurt you : never How often does anyone, including family, friends and others, insult or talk down to you: never How often does anyone, including family, friends and others, threaten you with harm: never How often does anyone, including family, friends and others, scream or curse at you: never service: No Meds Home Medications and Allergies Home Medications Medication Instructions Recorded Confirmed Type allopurinol 300 mg tablet 300 mg PO DAILY 10/03/22 12/31/22 History glipizide 5 mg tablet, extended 5 mg PO BID 10/03/22 12/31/22 History release 24 hr insulin glargine 100 unit/mL (3 41 unit subcut HS 10/03/22 12/31/22 History mL) subcutaneous pen (Lantus Solostar U-100 Insulin) levothyroxine 100 mcg tablet 100 mcg PO DAILY 10/03/22 12/31/22 History levothyroxine 125 mcg tablet 125 mcg PO DAILY 10/03/22 12/31/22 History liraglutide 0.6 mg/0.1 mL (18 mg/3 1.8 mg subcut DAILY 10/03/22 11/28/22 History mL) subcutaneous pen injector (Victoza 3-Frankie) magnesium oxide 400 mg (241.3 mg 400 mg PO DAILY 10/03/22 12/31/22 History magnesium) tablet metformin 500 mg tablet,extended 500 mg PO DAILY 10/03/22 12/31/22 History release 24 hr pantoprazole 40 mg tablet,delayed 40 mg PO QPM 10/03/22 12/31/22 History release potassium chloride 20 mEq 60 meq PO DAILY 10/03/22 12/31/22 History tablet,extended release(part/cryst) (Klor-Con M) pravastatin 80 mg tablet 80 mg PO HS 10/03/22 12/31/22 History spironolactone 50 mg tablet 50 mg PO DAILY 10/03/22 12/31/22 History tamsulosin 0.4 mg capsule 0.8 mg PO HS 10/03/22 12/31/22 History tizanidine 2 mg tablet 2 - 4 mg PO Q8H PRN muscle spasm 10/03/22 12/31/22 History acetaminophen 500 mg tablet 1,000 mg PO Q6H PRN 11/28/22 12/31/22 History (Tylenol Extra Strength) duloxetine 30 mg capsule,delayed 30 mg PO BID 11/28/22 12/31/22 History release gabapentin 600 mg tablet 900 mg PO 3XD 11/28/22 12/31/22 History lidocaine 4 % topical patch 1 patch topical DAILY PRN 11/28/22 11/28/22 History (Lidocare) nystatin 100,000 unit/gram topical 1 applic topical 3XD PRN 11/28/22 11/28/22 History powder sodium bicarbonate 650 mg tablet 650 mg PO TID 11/28/22 12/31/22 History Allergies Allergy/AdvReac Type Severity Reaction Status Date / Time terazosin Allergy Severe Shortness Verified 12/31/22 21:08 of Breath amoxicillin [From Augmentin] Allergy Mild Diarrhea Verified 12/31/22 21:08 atenolol Allergy Mild Verified 12/31/22 21:08 clavulanic acid Allergy Mild Diarrhea Verified 12/31/22 21:08 [From Augmentin] lisinopril Allergy Unknown Verified 12/31/22 21:08 meperidine [From Demerol] Allergy Unknown Verified 12/31/22 21:08 trospium Allergy Unknown Verified 12/31/22 21:08 Exam Narrative: Exam Narrative: He is alert and appears in no distress. He is wearing a soft cervical collar. He reports any motion in his neck is quite painful. Eyes normal. Extraocular movements are full. Visual pollack are intact. Oropharynx with very small airway. Neck motion is not tested due to significant pain. Palpation shows tenderness over the posterior aspect of his lower cervical spine. No obvious external signs of trauma. Palpation of the head shows no obvious signs of trauma. No significant areas of tenderness over his posterior scalp. Respirations are clear to auscultation. No wheezing rales or rhonchi. Cardiovascular: S1, S2, regular rate and rhythm. No murmur gallop or rub. Distant heart sounds. Abdomen is soft without tenderness or mass. Large abdominal pannus. Underneath this in the right inguinal area he has some erythema consistent with intertrigo. External genitalia otherwise unremarkable. Intact perineal sensation. He moves his upper extremities well without focal weakness. Lower extremities: Right hip flexion 3/5, left hip flexion 4/5, right knee flexion and extension 4/5, left knee flexion extension 4/5, ankle dorsiflexion 5/5 bilaterally. Great toe dorsiflexion for over 5 with inconsistent effort. Intact pedal pulses. Const: Vital Signs, click to edit/add: Vital Signs - 24 hr 12/31/22 21:08 Temperature 97.2 F L Pulse Rate [Right Pulse Oximeter] 88 Respiratory Rate 20 Blood Pressure [Ri ght Upper Arm] 170/74 H Pulse Oximetry 93 Oxygen Delivery Me thod Room Air Documenting provider has reviewed patient's vital signs: yes Hospitalist - H&P: Result Labs Labs: Short CBC 12/31/22 Range/Units 21:40 WBC 7.75 (4.50-11.00) K/uL Hgb 8.6 L (13.5-17.5) gm/dL Hct 28.8 L (37.0-53.0) % Plt Count 323 (140-440) K/uL BMP 12/31/22 21:40 Sodium 140 Potassium 3.6 Chloride 106 Carbon Dioxide 26 BUN 30 Creatinine 1.4 Glucose 202 H Calcium 9.3 Liver Function 12/31/22 Range/Units 21:40 Total Bilirubin 0.3 (0.1-1.5) mg/dL AST 18 (12-35) U/L ALT 18 (4-50) U/L Alkaline Phosphatase 75 (40-150) U/L Albumin 3.6 (3.3-5.0) g/dL Assessment and Plan Assessment and plan (1) Spinal stenosis, lumbar region without neurogenic claudication: Problem comment: MRI and clinical evaluation at [facility] in October and [facility] in November showed significant deficits which were not felt to be surgical. Marked clinical improvement with rehab with abrupt onset of weakness today. Attempted to transfer to [facility]. They are close to admissions. Status: Acute (2) Lumbar radiculopathy, chronic: Problem comment: Chronic right hip pain and weakness likely due to this. Multilevel lumbar radiculopathy. Clinically appears to be more of a problem with spinal stenosis causing weakness Status: Acute (3) Neck injury: Problem comment: CT head and cervical spine without apparent fracture Status: Acute (4) Weakness: Problem comment: Acute bilateral lower extremity weakness in the context of significant lumbar spinal stenosis and lumbar radiculopathy Status: Acute (5) Diabetes mellitus type 2 in obese: Status: Acute (6) Diabetic peripheral neuropathy associated with type 2 diabetes mellitus: Status: Acute (7) Physical debility: Status: Acute (8) Morbid obesity with BMI of 50.0-59.9, adult: Status: Acute (9) Chronic idiopathic constipation: Status: Acute (10) Declining functional status: Status: Acute Plan Patient will be admitted to the hospital with serial assessments of neurologic functioning. Plan to resume rehab. Unclear he will be able to return home where he has not had any ability to function independently for most of the last 3 months. Total time spent today is 90 minutes, 65 minutes in coordination of care and discussing with patient, and other providers ongoing evaluation management of acute and chronic weakness, rehab and disposition
[2023-01-01] VITALS (11 sets, daily range): BP systolic 153–180; BP diastolic 65–82; PULSE 68–102; RESP 18–24; TEMP 36.2–36.7; O2SAT 93–100; BMI 47.8
--- NOTE | 2023-01-01 00:43 | PC.NURSE ---
nurse to nurse report given to Marta HAMEED on med surg. patient going to room CCU3
[2023-01-01 01:19] LABS: Appearance Urine Clear (Clear); Bilirubin Urine Negative (Negative); Blood Urine Negative (Negative); Color Urine Yellow (Yellow); Glucose Urine 1+ (Negative); Ketones Urine Negative (Negative); Leukocyte Esterase Urine Negative (Negative); Nitrite Urine Negative (Negative); Protein Urine 1+ (Negative)
[2023-01-01 01:28] LABS: Bacteria Urine Few; RBC Urine 0-2 (0-2)
[2023-01-01] MEDS: LEVOTHYROXINE 125 MCG TABLET PO (05:45)
[2023-01-01] MEDS: OXYCODONE 5 MG TABLET PO (05:52)
--- NOTE | 2023-01-01 06:48 | PC.NURSE ---
Patient to the unit at 0050. A&Ox3. PRN Oxycodone x1 for 4/10 neck pain. Soft neck brace to neck. Voiding in urinal. Patient own TEDS and leg wraps removed per patient request.
[2023-01-01] MEDS: ACETAMINOPHEN 500 MG TABLET 1000 MG PO ×3 (09:11→22:10)
[2023-01-01] MEDS: METFORMIN ER 500 MG PO (09:11)
[2023-01-01] MEDS: MAGNESIUM OXIDE 400 MG TABLET PO (09:11)
[2023-01-01] MEDS: DULOXETINE 30 MG CAPSULE DR PO ×2 (09:11→22:12)
[2023-01-01] MEDS: LEVOTHYROXINE 100 MCG TABLET PO (09:11)
[2023-01-01] MEDS: allopurinoL 300 MG TABLET PO (09:11)
[2023-01-01] MEDS: glipiZIDE XL 5 MG TAB PO ×2 (09:11→22:11)
[2023-01-01] MEDS: SODIUM BICARBONATE 650 MG TABLET 1950 MG PO ×3 (10:21→22:13)
[2023-01-01] MEDS: NYSTATIN POWDER 1 APPLIC TOPICAL (12:56)
--- NOTE | 2023-01-01 13:32 | PC.NURSE ---
Patient A/Ox3. cieling lift to place on commode d/t feeling of having a BM, no BM results however did void on commode. PT/OT in room for transfer off commode and cleared for Ax2 pivot transfer from commode to bed. pt tolerated this well. pt continent, brief in place just in case. groin folds reddened, no skin breakdown noted but moist - cares done and nystatin powder applied. pt has lymphedema wraps in room however not applied d/t SCD's. Pt was ok with this. BP's running high, pt reports I typically take HCTZ. this is not ordered yet but will address with MD. Pt also takes Lyrica for chronic pain, will address with MD. BG 172/130 today. no sliding scale given this afternoon. good appetite. Pt reports he runs low for HGB, no labs drawn yet today, will address with MD.
[2023-01-01] MEDS: SENNOSIDES 1 TAB TABLET 2 TAB PO (14:37)
[2023-01-01] MEDS: OMEPRAZOLE 20 MG CAPSULE DR 40 MG PO (17:43)
--- NOTE | 2023-01-01 18:53 | P.IMPN_ITS ---
Progress Note: A&P Assessment and plan (1) Weakness: Problem details: Acute bilateral lower extremity weakness in the context of significant lumbar spinal stenosis and lumbar radiculopathy. Acute onset on the day of admission. Much improved after 1 day in the hospital Status: Acute (2) Spinal stenosis, lumbar region without neurogenic claudication: Problem details: MRI and clinical evaluation at [facility] in October and [facility] in November showed significant deficits which were not felt to be surgical. Marked clinical improvement with rehab with abrupt onset of weakness today. Attempted to transfer to [facility]. They are close to admissions. Continue medical management/conservative management. Outpatient follow-up with [facility] in the week of January Status: Acute (3) Morbid obesity with BMI of 50.0-59.9, adult: Problem details: I discussed with patient the value of weight loss to improve his chronic back pain, disability and other chronic medical problems. He is open to a calorie restricted diet while he is here in the hospital. Status: Acute (4) Neck injury: Problem details: CT head and cervical spine without apparent fracture. Better today Status: Acute (5) Lumbar radiculopathy, chronic: Problem details: Chronic right hip pain and weakness likely due to this. Multilevel lumbar radiculopathy. Clinically appears to be more of a problem with spinal stenosis causing weakness Status: Acute (6) Physical debility: Problem details: Continue therapy Status: Acute (7) Diabetes mellitus type 2 in obese: Problem details: Well controlled. Continue to monitor Status: Acute (8) Diabetic peripheral neuropathy associated with type 2 diabetes mellitus: Status: Acute Plan Continue in hospital for management of lumbar spinal stenosis and lumbar disc disease causing disability and weakness. Anticipate discharge to home if continuing to improve for outpatient follow-up at [facility] in 3 weeks. Time Spent With Patient Total time spent: Total time spent today is 40 minutes, 25 minutes in coordination of care and discussing with patient other providers ongoing evaluation management Subjective Date Seen: 01/01/23 Interval history: 72-year-old male seen in followup of hospital admission for bilateral lower ext remity weakness. Patient has longstanding history of low back problems, previous lumbar surgery and recent hospitalizations for leg weakness and inability to ambulate. He was doing well until the day of admission when he had acute onset of bilateral leg weakness. Today he reports feeling much better. He thinks his legs are getting back close to normal. He is concerned about why he had this onset of weakness so abruptly. He thinks it is possible that the chair he sits in at home could be causing this problem. He has not had any new injury. He did fall on the day of admission due to his leg weakness and did hurt his neck. That is feeling better today. He is still using a soft collar because it discourage is him from moving his neck quickly which is painful. He reports otherwise feeling well today. No shortness of breath or chest pain or abdominal pain. No new bowel or bladder problems. His pain is 2/10. Blood sugar control overnight has been quite good. Exam Narrative: Exam Narrative: He is alert lying in bed and in no distress. Lower extremities are examined. Today he does have return of normal strength to his lower extremities except 4/5 weakness at the right hip flexors he has 5/5 strength in both lower extremities, bilateral knees and ankles. Const: Vital Signs, click to edit/add: Vital Signs - 24 hr 12/31/22 21:08 01/01/23 00:13 01/01/23 01:00 Temperature 97.2 F L 98.1 F Pulse Rate [Pulse Oximeter] 93 Pulse Rate [Right Pulse Oximeter] 88 102 H Respiratory Rate 20 24 20 Blood Pressure [Ri ght Arm] 171/81 H Blood Pressure [Ri ght Upper Arm] 170/74 H 170/74 H Pulse Oximetry 93 93 94 Oxygen Delivery Me thod Room Air Room Air Room Air 01/01/23 01:06 01/01/23 08:15 01/01/23 08:17 Temperature 98.1 F Pulse Rate [Pulse Oximeter] 93 Pulse Rate [Right Pulse Oximeter] Respiratory Rate 20 20 20 Blood Pressure [Ri ght Arm] 171/81 H Blood Pressure [Ri ght Upper Arm] Pulse Oximetry 94 94 Oxygen Delivery Me thod Room Air CPAP 01/01/23 08:22 01/01/23 11:00 01/01/23 15:30 Temperature 98.0 F 98.0 F Pulse Rate [Pulse Oximeter] 94 81 Pulse Rate [Right Pulse Oximeter] Respiratory Rate 20 20 Blood Pressure [Ri ght Arm] 174/76 H 180/78 H Blood Pressure [Ri ght Upper Arm] Pulse Oximetry 94 98 99 Oxygen Delivery Me thod CPAP Room Air CPAP 01/01/23 15:30 Temperature 97.1 F L Pulse Rate [Pulse Oximeter] 69 Pulse Rate [Right Pulse Oximeter] Respiratory Rate 18 Blood Pressure [Ri ght Arm] 156/82 H Blood Pressure [Ri ght Upper Arm] Pulse Oximetry 99 Oxygen Delivery Me thod CPAP Documenting provider has reviewed patient's vital signs: yes Labs Labs: Laboratory Results - last 24 hr 12/31/22 12/31/22 21:40 23:01 WBC 7.75 RBC 3.79 L Hgb 8.6 L Hct 28.8 L MCV 76 L MCH 23 L MCHC 30 L RDW Coeff of Liana 18.4 H Plt Count 323 Neut % (Auto) 73.3 H Lymph % (Auto) 16.3 L [place] % (Auto) 7.9 Eos % (Auto) 1.8 Baso % (Auto) 0.4 Neut # (Auto) 5.70 Lymph # (Auto) 1.30 [place] # (Auto) 0.60 Eos # (Auto) 0.14 Baso # (Auto) 0.03 Abs Immat Gran (auto) 0.02 Imm/Tot Granulo (auto) 0.3 Sodium 140 Potassium 3.6 Chloride 106 Carbon Dioxide 26 Anion Gap 8 BUN 30 Creatinine 1.4 Estimated Creat Clear 61.88 Estimated GFR 54 Glucose 202 H Calcium 9.3 Total Bilirubin 0.3 AST 18 ALT 18 Alkaline Phosphatase 75 Total Protein 6.2 Albumin 3.6 Urine Color Yellow Urine Appearance Clear Urine pH 7.0 Ur Specific [place] 1.020 Urine Protein 1+ A Urine Glucose (UA) 1+ A Urine Ketones Negative Urine Blood Negative Urine Nitrite Negative Urine Bilirubin Negative Urine Urobilinogen 1.0 Ur Leukocyte Esterase Negative Urine RBC 0-2 Urine WBC 2-5 Ur Squamous Epith Cells None Urine Bacteria Few A
--- NOTE | 2023-01-01 18:57 | PC.NURSE ---
Addendum entered by Lorie Coppola RN 01/01/23 18:59: Shift [id number] Original Note: Shift [id number]- Patient naps in bed with CPAP this afternoon. He rates pain to lower back at 2/10, declines need for pain medication.
[2023-01-01] MEDS: PREGABALIN 100 MG CAPSULE PO (22:11)
[2023-01-01] MEDS: TAMSULOSIN HCL 0.4 MG CAPSULE 0.8 MG PO (22:12)
[2023-01-01] MEDS: SENNOSIDES 1 TAB TABLET PO (22:12)
[2023-01-01] MEDS: PRAVASTATIN SODIUM 20 MG TABLET 80 MG PO (22:12)
[2023-01-01] MEDS: ENOXAPARIN 40 MG/0.4 ML INJ SUBCUT (22:18)
[2023-01-02 01:55] VITALS: BP 168/59; PULSE 72; RESP 22; TEMP 36.4; O2SAT 97
[2023-01-02] MEDS: LEVOTHYROXINE 125 MCG TABLET PO (06:14)
[2023-01-02] MEDS: LEVOTHYROXINE 100 MCG TABLET PO (06:14)
[2023-01-02] MEDS: OXYCODONE 5 MG TABLET PO (06:38)
--- NOTE | 2023-01-02 06:47 | PC.NURSE ---
[id number]: Patient pleasant and cooperative. A2 to pivot to [facility]. PRN Oxycodone x1 for 6/10 pain in back and right leg. Denies N/V/SOB/CP. Appeared to rest well during noc.
[2023-01-02 07:00] VITALS: BP 172/72; PULSE 72; RESP 16; TEMP 36.4; O2SAT 94
[2023-01-02] MEDS: ACETAMINOPHEN 500 MG TABLET 1000 MG PO ×2 (09:30→14:57)
[2023-01-02] MEDS: PREGABALIN 100 MG CAPSULE PO ×2 (09:30→14:57)
[2023-01-02] MEDS: METFORMIN ER 500 MG PO (09:30)
[2023-01-02] MEDS: SPIRONOLACTONE 25 MG TABLET 50 MG PO (09:31)
[2023-01-02] MEDS: glipiZIDE XL 5 MG TAB PO (09:31)
[2023-01-02] MEDS: MAGNESIUM OXIDE 400 MG TABLET PO (09:31)
[2023-01-02] MEDS: DULOXETINE 30 MG CAPSULE DR PO (09:31)
[2023-01-02] MEDS: POTASSIUM CITRATE 10 MEQ TABLET.ER 60 MEQ PO (09:32)
[2023-01-02] MEDS: SODIUM BICARBONATE 650 MG TABLET 1950 MG PO ×2 (09:32→14:57)
[2023-01-02] MEDS: dilTIAZem 120 MG CAP.ER.24H PO (09:32)
[2023-01-02] MEDS: SODIUM CHLORIDE 0.9 % (FLUSH) 10 ML SYRINGE 5 ML IVF (09:37)
[2023-01-02] MEDS: allopurinoL 300 MG TABLET PO (09:37)
[2023-01-02] MEDS: GLUCOSAMINE SULFATE 500 MG CAPSULE PO ×2 (09:49→14:57)
[2023-01-02] MEDS: hydroCHLOROthiazide 25 MG TABLET 6.25 MG PO (09:52)
[2023-01-02 11:00] VITALS: BP 168/64; PULSE 84; RESP 18; TEMP 36.8; O2SAT 94
--- NOTE | 2023-01-02 14:18 | PC.NURSE ---
End of Shift: Patient pleasant and cooperative. Afebrile. Rating pain in back 3-4/10 and declines PRN pain medication at this time. Up to bathroom and for walk in hallway with SBA of 2, walker and gait belt. Tolerating regular diet with no nausea.
[2023-01-02 15:10] VITALS: PULSE 82; RESP 18; TEMP 36.7; O2SAT 97
--- NOTE | 2023-01-02 17:24 | PM.DS1 ---
DS: Providers Provider Date Seen: 01/02/23 Date of admission: 01/01/23 00:45 Primary care physician: Grzegorz Wiggins MD Admitting Clinician: William Erickson MD Attending Physician on discharge: William Erickson MD Date of Discharge: 01/02/23 DS: Diagnosis Discharge Diagnosis (1) Weakness: Status: Acute Problem details: Acute bilateral lower extremity weakness in the context of significant lumbar spinal stenosis and lumbar radiculopathy. Acute onset on the day of admission. Much improved after 1 day in the hospital. Today he felt like he was back to baseline mobility and strength. The reason why he became acutely weak and then quickly improved is unclear. (2) Lumbar radiculopathy, chronic: Status: Acute Problem details: Chronic right hip pain and weakness likely due to this. Multilevel lumbar radiculopathy. Clinically appears to be more of a problem with spinal stenosis causing weakness (3) Spinal stenosis, lumbar region without neurogenic claudication: Status: Acute Problem details: MRI and clinical evaluation at [facility] in October and [place] in November showed significant deficits which were not felt to be surgical. Marked clinical improvement with rehab with abrupt onset of weakness today. Attempted to transfer to [facility]. They are close to admissions. Continue medical management/conservative management. Outpatient follow-up with [facility] in the week of January (4) Diabetic peripheral neuropathy associated with type 2 diabetes mellitus: Status: Acute (5) Morbid obesity with BMI of 50.0-59.9, adult: Status: Acute Problem details: I discussed with patient the value of weight loss to improve his chronic back pain, disability and other chronic medical problems. He is open to a calorie restricted diet while he is here in the hospital. (6) Chronic idiopathic constipation: Status: Acute (7) Neck injury: Status: Acute Problem details: CT head and cervical spine without apparent fracture. Better today DS: Summary Hospital Course Hospital Course: Zoltan Olivera is a 72 year old male with diabetes, morbid obesity, multilevel lumbar disc disease and spinal stenosis admitted from the emergency department for leg weakness and inability to walk. Patient was initially hospitalized at [facility] in October for back pain radiating down his right leg. He was seen by neuro surgery and had an MRI. He had a steroid injection in the hospital at [facility] which did not help. He was hospitalized for a couple weeks and then transitioned to rehab stay at [facility]. After that he was discharged home for his with his for a couple weeks before he had a fall at home due to leg weakness and was admitted to [facility] briefly and then transferred to [facility]. He was evaluated there by neuro surgery including an MRI which showed Severe central and paracentral canal stenosis at L2-3, worse on the right and also severe central canal stenosis at L3-4 and L4-5 levels. He had a caudal migration of an L2-3 disc herniation causing severe right lateral recess stenosis posterior to the vertebral body of L3. The central canal at L5-S1 is patent and there is evidence of a prior right L5 hemilaminectomy. There is some mild foraminal stenosis at L4-5 and moderate to severe foraminal stenosis at L5-S1 bilaterally. Overall this is unchanged from previous MRI done at [facility] in October. At both [facility] and at [place] he was felt not to be a surgical candidate. He was referred back to [facility] for outpatient spine surgery followup which is scheduled the of January. He was transitioned to [facility]. He was there until discharged yesterday. He reports he had remarkable improvement in his leg weakness. At discharge they note he was 5/5 strength in his lower extremities except for right hip flexion which was reportedly for over 5. He reports he could walk 200 ft with his walker. Today he was walking and felt like his legs are going to give out. He got close to his bed with the hope that he could lower himself onto the bed to avoid falling or getting injured. He fell back and missed the bed and hit his head and neck. With this he called 911 and came to our emergency department. When he fell he did not lose consciousness but he does report posterior neck pain. He reports that he has not been ill with fever cold cough shortness of breath or chest pain. He has been eating normally. His bowels have a tense he towards constipation. He he has no trouble with incontinence of bowel or bladder. He does report he had some urinary incontinence a month ago which he attributes to having urge to void but taking too long to get to the bathroom before he would lose control. He has diabetic peripheral neuropathy but no other focal numbness or tingling in his legs. This is unchanged recently. He reports now both legs are very weak, right more than left. He reports his pain is more in his neck rather than in his low back or leg. Over the subsequent 2 days during his hospital stay the leg weakness has resolved and his leg strength and mobility are back to baseline from a few days ago. His neck pain is improved though he continues to wear the cervical collar for comfort. I discussed with the patient and his that there is uncertainty about why he became acutely weak in both legs and why this weakness quickly resolved without specific therapy. At this point I think it would be beneficial for him to see his spine surgeon at [facility] and an appointment for that is scheduled on January 19. In the meantime I indicated he may have recurrent problems and if he is too weak to walk he will almost certainly require repeat visit to the emergency department as he is too big for his to assist him if he is unable to walk on his own. Status at Discharge Functional status at discharge: uses cane/walker Overall status at discharge: patient is back to baseline Time Spent with Patient Time attestation: Total time spent providing and/or coordinating discharge services: Time spent: Greater than 30 minutes Exam Narrative: Exam Narrative: He is alert, pleasant and appears in no distress. He is observed to sit up on the edge of the bed and be comfortable in that position. His lower extremities strength is back to baseline except for mild right hip flexion weakness. Const: Vital Signs, click to edit/add: Vital Signs - 24 hr 01/01/23 19:33 01/01/23 22:27 01/01/23 23:00 Temperature 98.1 F 98.1 F Pulse Rate [Pulse Oximeter] 77 68 Respiratory Rate 18 18 18 Blood Pressure [Ri ght Arm] 176/77 H 153/65 H Pulse Oximetry 100 97 97 Oxygen Delivery Me thod Room Air Room Air Room Air 01/02/23 01:55 01/02/23 07:00 01/02/23 07:00 Temperature 97.6 F 97.6 F Pulse Rate [Pulse Oximeter] 72 72 Respiratory Rate 22 16 Blood Pressure [Ri ght Arm] 168/59 H 172/72 H Pulse Oximetry 97 94 94 Oxygen Delivery Me thod Room Air Room Air Room Air 01/02/23 07:00 01/02/23 11:00 01/02/23 15:10 Temperature 98.2 F Pulse Rate [Pulse Oximeter] 72 84 Respiratory Rate 16 18 Blood Pressure [Ri ght Arm] 168/64 H Pulse Oximetry 94 97 Oxygen Delivery Me thod Room Air Room Air 01/02/23 15:10 Temperature 98.1 F Pulse Rate [Pulse Oximeter] 82 Respiratory Rate 18 Blood Pressure [Ri ght Arm] Pulse Oximetry 97 Oxygen Delivery Me thod Documenting provider has reviewed patient's vital signs: yes DS: Data Data Completed and Pending Labs on day of discharge: Preliminary micro results at discharge 01/01/23 Unknown Urine Culture - Preliminary Urine,Clean Catch <10,000 COL/ML GRAM POSITIVE [place] Imaging CT scan - head: Radiologist's impression: INDICATION: Fall. TECHNIQUE: Noncontrast CT of the head with multiplanar reformat in bone and soft tissue algorithms. COMPARISON: CT head dated 11/27/2022. FINDINGS: No acute intracranial hemorrhage. The west-white matter interface is preserved. There is scattered nonspecific white-matter hypoattenuation typical mild small vessel ischemic changes. Mild global parenchymal loss with ex vacuo prominence of the supratentorial ventricles. Carotid siphon atherosclerotic disease. The skull base and calvarium are within normal limits. Orbits are unremarkable. Paranasal sinuses and mastoid air cells are predominantly clear. IMPRESSION: No acute intracranial abnormality. CT- Other: Radiologist's impression: CT cervical spine: INDICATION: Fall. TECHNIQUE: Noncontrast axial CT of the cervical spine with coronal and sagittal reformats are provided. COMPARISON: CT cervical spine dated 08/29/2020. FINDINGS: Normal alignment. No acute fracture or traumatic subluxation.The prevertebral soft tissues are within normal limits. No aggressive osseous lesion is identified. Flowing anterior osteophytes are noted throughout the cervical spine relative preservation of the disc spaces in keeping with diffuse idiopathic skeletal hyperostosis. Multilevel spondylosis with no high-grade spinal canal stenosis or neural foraminal narrowing. IMPRESSION: No acute fracture or traumatic subluxation. Discharge Plan Discharge Disposition: Home, Self-Care Date of Admission: 01/01/23 00:45 Attending Provider on Discharge: William Erickson Primary Care Provider: Grzegorz Wiggins Condition: Stable Anticipated Discharge Date/Time: 01/02/23 17:14 Discharge Medications: Continued glipizide 5 mg tablet extended release 24hr 5 mg PO BID levothyroxine 100 mcg tablet 100 mcg PO DAILY Patient Comments: TOTAL DOSE = 225MCG potassium chloride [Klor-Con M20] 20 mEq tablet,ER particles/crystals 60 meq PO DAILY pravastatin 80 mg tablet 80 mg PO HS magnesium oxide 400 mg (241.3 mg magnesium) tablet 400 mg PO DAILY tamsulosin 0.4 mg capsule 0.8 mg PO HS pantoprazole 40 mg tablet,delayed release (DR/EC) 40 mg PO QPM levothyroxine 125 mcg tablet 125 mcg PO DAILY Patient Comments: TOTAL DOSE = 225MCG allopurinol 300 mg tablet 300 mg PO DAILY metformin 500 mg tablet extended release 24 hr 500 mg PO DAILY spironolactone 50 mg tablet 50 mg PO DAILY insulin glargine [Lantus Solostar U-100 Insulin] 100 unit/mL (3 mL) insulin pen 38 unit subcut HS gabapentin 600 mg tablet 900 mg PO 3XD nystatin 100,000 unit/gram powder 1 applic topical BID duloxetine 30 mg capsule,delayed release(DR/EC) 30 mg PO BID sodium bicarbonate 650 mg tablet 1,950 mg PO TID acetaminophen [Tylenol Extra Strength] 500 mg tablet 1,000 mg PO TID diltiazem HCl [Cartia XT] 120 mg capsule,extended release 24hr 120 mg PO DAILY glipizide 5 mg tablet 2.5 - 5 mg PO BIDWMEAL Rx Instructions: TAKE 1 TAB (5 MG) IN AM AND 1/2 TAB (2.5 MG) IN PM hydrochlorothiazide 12.5 mg tablet 6.25 mg PO DAILY methocarbamol 750 mg tablet 750 mg PO Q6H PRN pregabalin 100 mg capsule 100 mg PO TID sennosides [senna] 8.6 mg tablet 8.6 - 17.2 mg PO BID PRN glucosamine-chondroitin [Cosamin DS] 500-400 mg tablet 1 tab PO TID Discharge Orders: Discharge Order (Routine); Ordered 01/02/23 Ordered By: William Erickson Additional Instructions: Follow-up with your spine surgeon on January 19 as previously scheduled. Wear the soft cervical collar for comfort as needed. Activity Level: Activity as Tolerated and Other Discharge Diet: Other Follow Up Appointments: Grzegorz Wiggins MD [Primary Care Provider] - (as needed) Forms: [facility] Info Instructions
--- NOTE | 2023-01-02 18:28 | PC.NURSE ---
Discharge 1800- Patient leaves via EMS transport to home. He rates pain to lower back this afternoon at 3/10, declines need for pain medication. He is alert and oriented, at bedside. She collects belongings and brings them home. Discharge instructions given verbally and in-print. No IV in place.
== END 2023-01-02 18:10 | disposition home or self-care (01) ==
LOC: ED 23:06 → MEDSURG 01-01 00:45
PROVIDERS: Admitting Provider Family Medicine; Emergency Provider Internal Medicine; PCP Family Medicine; Visit Provider Family Medicine
DX: R53.1 Weakness (principal); M48.061 Spinal stenosis, lumbar region without neurogenic claudication; M54.16 Radiculopathy, lumbar region; S19.9XXA Unspecified injury of neck, initial encounter; M54.2 Cervicalgia; M25.551 Pain in right hip; R26.81 Unsteadiness on feet; M54.50 Low back pain, unspecified; G89.29 Other chronic pain; K59.04 Chronic idiopathic constipation; E11.42 Type 2 diabetes mellitus with diabetic polyneuropathy; I12.9 Hypertensive chronic kidney disease with stage 1 through stage 4 chronic kidney disease, or unspecified chronic kidney disease; E11.22 Type 2 diabetes mellitus with diabetic chronic kidney disease; N18.9 Chronic kidney disease, unspecified; N40.0 Benign prostatic hyperplasia without lower urinary tract symptoms; K21.9 Gastro-esophageal reflux disease without esophagitis; L30.4 Erythema intertrigo; E03.9 Hypothyroidism, unspecified; E78.5 Hyperlipidemia, unspecified; G47.33 Obstructive sleep apnea (adult) (pediatric); E66.01 Morbid (severe) obesity due to excess calories; Z68.43 Body mass index [BMI] 50.0-59.9, adult; R53.81 Other malaise; W19.XXXA Unspecified fall, initial encounter; Z79.4 Long term (current) use of insulin; Z79.84 Long term (current) use of oral hypoglycemic drugs; Z87.440 Personal history of urinary (tract) infections; Z87.891 Personal history of nicotine dependence; Z90.89 Acquired absence of other organs; Z98.890 Other specified postprocedural states
CPT/HCPCS: 36415; 51798; 70450; 72125; 80053; 81003; 81015; 82962; 85025; 87086; 93005; 96372; 97116; 97162; 97165; 97530; 97535; 99283; 99285; A9270; G0378; J1650

== ENCOUNTER 2023-01-02 18:10 | Outpatient (CLI) | payer MEDICARE, BC, SELFPAY | END 2023-01-02 18:11 | disposition home or self-care (01) | LOC: AMB 01-03 08:32 | PROVIDERS: PCP Family Medicine; Visit Provider Student in an Organized Health Care Education/Training Program | DX: Z99.3 Dependence on wheelchair (principal) | CPT/HCPCS: A0425; A0428 ==

== ENCOUNTER 2023-01-25 18:44 | Outpatient (CLI) | payer MEDICARE, BC, SELFPAY | END 2023-01-25 18:45 | disposition home or self-care (01) | LOC: AMB 01-26 16:56 | PROVIDERS: PCP Family Medicine; Visit Provider Family Medicine | DX: R53.1 Weakness (principal); I10 Essential (primary) hypertension | CPT/HCPCS: A0425; A0427 ==

== ENCOUNTER 2023-01-25 19:17 | Inpatient (IN) | payer MEDICARE, BC, SELFPAY ==
[2023-01-25] VITALS (13 sets, daily range): BP systolic 166–186; BP diastolic 71–90; PULSE 69–96; RESP 16–20; TEMP 36.8; O2SAT 92–100; BMI 47.4; BMI 50.3
[2023-01-25 19:33] LABS: Lactate* 2.8 mmol/L (0.5-1.9)
[2023-01-25 19:35] LABS: Basophils Absolute Auto 0.02 K/uL (0.00-0.30); Basophils Percent Auto 0.3 % (0.0-3.0); Eosinophils Absolute Auto 0.29 K/uL (0.00-0.50); Eosinophils Percent Auto 3.7 % (0.0-7.0); Hematocrit 25.4 % (37.0-53.0); Immature Granulocytes Abs Auto 0.01 K/uL (0.00-0.30); Immature Granulocytes Pct Auto 0.1 %; Lymphocytes Percent Auto 22.7 % (20-44); Mean Corpuscular HGB Conc 28 gm/dL (32-36); Mean Corpuscular Hemoglobin 21 pg (26-34); Mean Corpuscular Volume 74 fL (80-100); Monocytes Percent Auto 7.2 % (0.0-11.0); Neutrophils Absolute Auto 5.23 K/uL (1.7-7.0); Platelet Count* 305 K/uL (140-440); RDW Coefficient of Variation % 17.6 % (11.5-15.5); Red Blood Count 3.42 m/uL (4.30-5.90); White Blood Count* 7.92 K/uL (4.50-11.00)
[2023-01-25 19:39] LABS: Hemoglobin* 7.2 gm/dL (13.5-17.5); Slide Review Reflex No
--- NOTE | 2023-01-25 19:39 | ED_ITS ---
HPI - General Adult General Chief complaint: Fever Stated complaint: Fever Time Seen by Provider: 01/25/23 19:39 History of Present Illness HPI narrative: HH nurse came to draw CBC diff for hx of low hgb, unable to draw. told pt to come to ER because of this and possible fever, 99.5 by ems. pt had weak legs prior to ems arrival as well. pt normally ambulates at home. tylenolat 1700. 72-year-old man presenting to the emergency department with concern of weakness. Underlying history of peripheral neuropathy and the setting of diabetes and severe sleep apnea using BiPAP. Does not apparently have a history of heart failure per his report. Has been noted himself to be increasingly weak finding it hard to get out of a chair for example lately. Today home health came by to check a hemoglobin as he has also been low. Had some trouble drawing his blood. There is some peripheral edema in is right handed particular that of is of concern. What I see on physical exam is some puffiness in the left hand as well which he says is more chronic. Does also struggle with lower extremity edema and has compression wraps. Reports there was no redness on the legs today. He has no open sores. Home health measured a temperature of 99 point something and reported this to clinic. Was recommended then to go to the emergency department for further evaluation. He is not increasingly short of breath at rest. Related Data Home Medications Medication Instructions Recorded Confirmed allopurinol 300 mg tablet 300 mg PO DAILY 10/03/22 01/26/23 insulin glargine 100 unit/mL (3 38 unit subcut HS 10/03/22 01/26/23 mL) subcutaneous pen (Lantus Solostar U-100 Insulin) levothyroxine 100 mcg tablet 100 mcg PO DAILY 10/03/22 01/26/23 levothyroxine 125 mcg tablet 125 mcg PO DAILY 10/03/22 01/26/23 magnesium oxide 400 mg (241.3 mg 400 mg PO DAILY 10/03/22 01/26/23 magnesium) tablet metformin 500 mg tablet,extended 500 mg PO DAILY 10/03/22 01/26/23 release 24 hr pantoprazole 40 mg tablet,delayed 40 mg PO QPM 10/03/22 01/26/23 release potassium chloride 20 mEq 60 meq PO DAILY 10/03/22 01/26/23 tablet,extended release(part/cryst) (Klor-Con M) pravastatin 80 mg tablet 80 mg PO HS 10/03/22 01/26/23 spironolactone 50 mg tablet 50 mg PO DAILY 10/03/22 01/26/23 tamsulosin 0.4 mg capsule 0.8 mg PO HS 10/03/22 01/26/23 acetaminophen 500 mg tablet 1,000 mg PO TID 11/28/22 01/26/23 (Tylenol Extra Strength) duloxetine 30 mg capsule,delayed 30 mg PO BID 11/28/22 01/26/23 release gabapentin 600 mg tablet 900 mg PO 3XD 11/28/22 01/26/23 nystatin 100,000 unit/gram topical 1 applic topical BID 11/28/22 01/26/23 powder sodium bicarbonate 650 mg tablet 1,950 mg PO TID 11/28/22 01/26/23 glipizide 5 mg tablet 2.5 - 5 mg PO BIDWMEAL 01/01/23 01/26/23 glucosamine-chondroitin 500 mg-400 1 tab PO TID 01/01/23 01/26/23 mg tablet (Cosamin DS) hydrochlorothiazide 12.5 mg tablet 6.25 mg PO DAILY 01/01/23 01/26/23 methocarbamol 750 mg tablet 750 mg PO Q6H PRN 01/01/23 01/26/23 pregabalin 100 mg capsule 100 mg PO TID 01/01/23 01/26/23 sennosides 8.6 mg tablet (senna) 8.6 - 17.2 mg PO BID PRN 01/01/23 01/26/23 Previous Rx's Medication Instructions Recorded diltiazem HCl 240 mg 240 mg PO BID 30 days #60 caps 01/28/23 capsule,extended release 24 hr Allergies Allergy/AdvReac Type Severity Reaction Status Date / Time terazosin Allergy Severe Shortness Verified 02/01/23 15:59 of Breath amoxicillin [From Augmentin] Allergy Mild Diarrhea Verified 02/01/23 15:59 atenolol Allergy Mild Verified 02/01/23 15:59 clavulanic acid Allergy Mild Diarrhea Verified 02/01/23 15:59 [From Augmentin] lisinopril Allergy Unknown Verified 02/01/23 15:59 meperidine [From Demerol] Allergy Unknown Verified 02/01/23 15:59 trospium Allergy Unknown Verified 02/01/23 15:59 Review of Systems Status of ROS: Reports: 6 or more systems reviewed and unremarkable except as noted in History and below [facility] Medical History Diabetes mellitus type 2 in obese ?E11.69 - Type 2 diabetes mellitus with other specified complication (ICD-10) ?E66.9 - Obesity, unspecified (ICD-10) Syncope ?R55 - Syncope and collapse (ICD-10) Benign prostatic hyperplasia ?N40.0 - Benign prostatic hyperplasia without lower urinary tract symptoms ( ICD-10) Primary hypothyroidism ?E03.9 - Hypothyroidism, unspecified (ICD-10) Prostate nodule ?N40.2 - Nodular prostate without lower urinary tract symptoms (ICD-10) Hyperlipidemia ?E78.5 - Hyperlipidemia, unspecified (ICD-10) Chronic kidney disease ?N18.9 - Chronic kidney disease, unspecified (ICD-10) Essential hypertension ?I10 - Essential (primary) hypertension (ICD-10) Uric acid renal calculus ?N20.0 - Calculus of kidney (ICD-10) Nephrolithiasis ?N20.0 - Calculus of kidney (ICD-10) History of urinary tract infection ?Z87.440 - Personal history of urinary (tract) infections (ICD-10) Recurrent major depressive disorder ?F33.9 - Major depressive disorder, recurrent, unspecified (ICD-10) Chronic low back pain ?M54.50 - Low back pain, unspecified (ICD-10) ?G89.29 - Other chronic pain (ICD-10) Declining functional status ?R53.81 - Other malaise (ICD-10) Iron deficiency anemia ?D50.9 - Iron deficiency anemia, unspecified (ICD-10) Chronic idiopathic constipation ?K59.04 - Chronic idiopathic constipation (ICD-10) Atrial paroxysmal tachycardia ?I47.1 - Supraventricular tachycardia (ICD-10) Morbid obesity with BMI of 50.0-59.9, adult ?E66.01 - Morbid (severe) obesity due to excess calories (ICD-10) ?Z68.43 - Body mass index [BMI] 50.0-59.9, adult (ICD-10) Physical debility ?R53.81 - Other malaise (ICD-10) Diabetic peripheral neuropathy associated with type 2 diabetes mellitus ?E11.42 - Type 2 diabetes mellitus with diabetic polyneuropathy (ICD-10) Spinal stenosis, lumbar region without neurogenic claudication ?M48.061 - Spinal stenosis, lumbar region without neurogenic claudication (ICD-10) Lumbar radiculopathy, chronic ?M54.16 - Radiculopathy, lumbar region (ICD-10) BRITTNEY (obstructive sleep apnea) ?G47.33 - Obstructive sleep apnea (adult) (pediatric) (ICD-10) Surgical History History of tonsillectomy ?Z90.89 - Acquired absence of other organs (ICD-10) History of arthroscopy of both knees ?Z98.890 - Other specified postprocedural states (ICD-10) History of lumbar laminectomy ?Z98.890 - Other specified postprocedural states (ICD-10) Social History Narrative: He lives with his . Most of the last 3 months he has been hospitalized or in rehab for his back pain and leg weakness. Code status is full. is healthcare power of senior attorney. He does not smoke. He does not drink alcohol. He does not use recreational drugs. What is your current living situation?: I presently have a place to live Problems where you live: no known problems Problems where you live details: NA In the past 12 months, utilities in danger of being shut off: no In past 12 months, lack of transportation kept you from medical appts, meetings, work, or getting things needed for daily living: no In the past 12 mos, have been you worried that your food would run out before you had money to buy more?: never true In the past 12 mos, the food you bought just didn't last and you didn't have money to buy more?: never true Highest level of school completed/degree received: Bachelor's degree Smoking Status: Former smoker Do you use any of these nicotine containing products: None Second hand tobacco smoke exposure: Yes How often do you have a drink containing alcohol: monthly or less Alcohol type: beer How often do you have six or more drinks on one occasion: Never AUDIT-C Alcohol total score: 1 Non-prescribed substance use: denies use Caffeine: No How often does anyone, including family, friends and others, physically hurt you : never How often does anyone, including family, friends and others, insult or talk down to you: never How often does anyone, including family, friends and others, threaten you with harm: never How often does anyone, including family, friends and others, scream or curse at you: never service: No Exam Narrative: Exam Narrative: Pleasant. NAD. Seems fatigued. Large man he is tall and quite large body habitus. Oropharynx is a little sticky. Lungs appear to be clear. Abdomen is obese soft and nontender. Lower extremities are wrapped with compression socks over wrapped with a neoprene progressive compression. Soft 1+ edema in the right and left hands and wrists. Heart in regular rate and rhythm. Distant. Cranial nerves 2-12 intact. Fully alert. Const: Vital Signs, click to edit/add: Vital Signs - 24 hr 01/25/23 19:25 01/25/23 19:30 01/25/23 19:30 Temperature 98.3 F Pulse Rate [Pulse Oximeter] 84 Respiratory Rate 16 20 Blood Pressure [Ri ght Upper Arm] 166/71 H Pulse Oximetry 98 97 Oxygen Delivery Me thod Room Air Documenting provider has reviewed patient's vital signs: yes Course Vital Signs Vital signs: Initial Vital Signs Temperature 98.3 F 01/25/23 19:25 Temperature Source Temporal Artery Scan 01/25/23 19:25 Pulse Rate 84 01/25/23 19:25 Respiratory Rate 16 01/25/23 19:25 Blood Pressure 166/71 H 01/25/23 19:25 Blood Pressure Mean 102 01/25/23 19:25 Blood Pressure Position Sitting 01/25/23 19:25 Pulse Oximetry 98 01/25/23 19:25 Oxygen Delivery Method Room Air 01/25/23 19:25 Vital Signs Temperature 98.3 F 01/25/23 19:25 Pulse Rate 84 01/25/23 19:25 Respiratory Rate 16 01/25/23 19:25 Blood Pressure 166/71 H 01/25/23 19:25 Pulse Oximetry 98 01/25/23 19:25 Oxygen Delivery Method Room Air 01/25/23 19:25 Temperature 97.9 F 02/04/23 15:00 Pulse Rate 78 02/04/23 15:00 Respiratory Rate 18 02/04/23 15:00 Blood Pressure 165/74 H 02/04/23 15:00 Pulse Oximetry 97 02/04/23 15:00 Oxygen Delivery Method Room Air 02/04/23 15:00 Medical Decision Making MDM Narrative Medical decision making narrative: Apparently does not have a diagnosis of CHF. I think it would be good to e valuate though for cardiac etiology to his weakness. EKG. Chest x-ray. Does not seem to have respiratory symptoms corresponding to pneumonia. As this is an elevated temperature he reports 2? above his baseline but does not qualify the fever. Will however check for infectious etiology. Recheck hemoglobin is explanation for weakness as well. Hemoglobin is indeed continued to drift down. Today is 7.2. Distribution consistent with microcytic anemia; does have this history of iron deficiency anemia. Lactate little bit elevated at 2.8 urinalysis is pending. Receiving a L of normal saline. Absent other findings I would think that this anemia certainly enough to contribute to his weakness. I have requested 2 units to be transfused. Have requested admission to continue transfusion and for further evaluation for weakness. Medical Records Medical records reviewed: Yes I reviewed the patient's medical records Lab Data Lab results reviewed: Yes I reviewed the patient's lab results Labs: Lab Results 01/25/23 01/25/23 01/25/23 Range/Units 19:27 19:43 20:03 WBC 7.92 (4.50-11.00) K/uL RBC 3.42 L (4.30-5.90) m/uL Hgb 7.2 L* (13.5-17.5) gm/dL Hct 25.4 L (37.0-53.0) % MCV 74 L (80-100) fL MCH 21 L (26-34) pg MCHC 28 L (32-36) gm/dL RDW Coeff of Liana 17.6 H (11.5-15.5) % Plt Count 305 (140-440) K/uL Neut % (Auto) 66.0 (42.0-72.0) % Lymph % (Auto) 22.7 (20-44) % [place] % (Auto) 7.2 (0.0-11.0) % Eos % (Auto) 3.7 (0.0-7.0) % Baso % (Auto) 0.3 (0.0-3.0) % Neut # (Auto) 5.23 (1.7-7.0) K/uL Lymph # (Auto) 1.80 (0.90-2.90) K/uL [place] # (Auto) 0.60 (0.00-0.90) K/UL Eos # (Auto) 0.29 (0.00-0.50) K/uL Baso # (Auto) 0.02 (0.00-0.30) K/uL Abs Immat Gran (auto) 0.01 (0.00-0.30) K/uL Imm/Tot Granulo (auto) 0.1 % Sodium 140 (135-149) mmol/L Potassium 3.7 (3.6-5.1) mmol/L Chloride 107 (96-114) mmol/L Carbon Dioxide 23 (20-32) mmol/L Anion Gap 10 (7-15) mEq/L BUN 21 (7-30) mg/dL Creatinine 1.2 (0.5-1.5) mg/dL Estimated Creat Clear 72.19 Estimated GFR 65 ml/min Glucose 175 H (60-115) mg/dL Lactate 2.8 H (0.5-1.9) mmol/L Calcium 8.3 L (8.4-10.6) mg/dL Iron (49-181) ug/dL TIBC (261-462) ug/dL % Saturation (20-50) % Urine Color (Yellow) Urine Appearance (Clear) Urine pH (5.0-8.5) Ur Specific [place] (1.000-1.030) Urine Protein (Negative) Urine Glucose (UA) (Negative) Urine Ketones (Negative) Urine Blood (Negative) Urine Nitrite (Negative) Urine Bilirubin (Negative) Urine Urobilinogen (0.2-1.0) Ur Leukocyte Esterase (Negative) Urine RBC (0-2) Urine WBC (0-5) Ur Squamous Epith Cells (None-Few) Urine Bacteria (None) SARS-CoV-2 (PCR) Negative SARS-CoV-2 (Negative) Influenza Type A (PCR) Negative PCR FLU A (Negative) Influenza Type B (PCR) Negative PCR FLU B (Negative) Lab Acknowledgement Blood Type A Positive Antibody Screen NEGATIVE Crossmatch (AHG) See Detail 01/25/23 01/26/23 01/27/23 Range/Units 22:15 06:35 06:16 WBC 9.03 (4.50-11.00) K/uL RBC 3.75 L (4.30-5.90) m/uL Hgb 8.3 L 8.4 L (13.5-17.5) gm/dL Hct 28.2 L (37.0-53.0) % MCV 75 L (80-100) fL MCH 22 L (26-34) pg MCHC 29 L (32-36) gm/dL RDW Coeff of Liana (11.5-15.5) % Plt Count 288 (140-440) K/uL Neut % (Auto) (42.0-72.0) % Lymph % (Auto) (20-44) % [place] % (Auto) (0.0-11.0) % Eos % (Auto) (0.0-7.0) % Baso % (Auto) (0.0-3.0) % Neut # (Auto) (1.7-7.0) K/uL Lymph # (Auto) (0.90-2.90) K/uL [place] # (Auto) (0.00-0.90) K/UL Eos # (Auto) (0.00-0.50) K/uL Baso # (Auto) (0.00-0.30) K/uL Abs Immat Gran (auto) (0.00-0.30) K/uL Imm/Tot Granulo (auto) % Sodium 139 (135-149) mmol/L Potassium 3.9 (3.6-5.1) mmol/L Chloride 107 (96-114) mmol/L Carbon Dioxide 24 (20-32) mmol/L Anion Gap 8 (7-15) mEq/L BUN 19 (7-30) mg/dL Creatinine 1.1 (0.5-1.5) mg/dL Estimated Creat Clear 78.75 Estimated GFR 72 ml/min Glucose 125 H (60-115) mg/dL Lactate (0.5-1.9) mmol/L Calcium 8.2 L (8.4-10.6) mg/dL Iron 34 L (49-181) ug/dL TIBC 384 (261-462) ug/dL % Saturation 9 L (20-50) % Urine Color Yellow (Yellow) Urine Appearance Clear (Clear) Urine pH 7.5 (5.0-8.5) Ur Specific [place] 1.020 (1.000-1.030) Urine Protein Trace A (Negative) Urine Glucose (UA) Trace A (Negative) Urine Ketones Negative (Negative) Urine Blood Negative (Negative) Urine Nitrite Negative (Negative) Urine Bilirubin Negative (Negative) Urine Urobilinogen 1.0 (0.2-1.0) Ur Leukocyte Esterase Negative (Negative) Urine RBC 0-2 (0-2) Urine WBC 0-2 (0-5) Ur Squamous Epith Cells Few (None-Few) Urine Bacteria Few A (None) SARS-CoV-2 (PCR) (Negative) Influenza Type A (PCR) (Negative) Influenza Type B (PCR) (Negative) Lab Acknowledgement Blood Type Antibody Screen Crossmatch (AHG) 01/27/23 01/28/23 01/29/23 Range/Units 12:19 06:15 05:58 WBC (4.50-11.00) K/uL RBC (4.30-5.90) m/uL Hgb 8.0 L 7.9 L* (13.5-17.5) gm/dL Hct (37.0-53.0) % MCV (80-100) fL MCH (26-34) pg MCHC (32-36) gm/dL RDW Coeff of Liana (11.5-15.5) % Plt Count (140-440) K/uL Neut % (Auto) (42.0-72.0) % Lymph % (Auto) (20-44) % [place] % (Auto) (0.0-11.0) % Eos % (Auto) (0.0-7.0) % Baso % (Auto) (0.0-3.0) % Neut # (Auto) (1.7-7.0) K/uL Lymph # (Auto) (0.90-2.90) K/uL [place] # (Auto) (0.00-0.90) K/UL Eos # (Auto) (0.00-0.50) K/uL Baso # (Auto) (0.00-0.30) K/uL Abs Immat Gran (auto) (0.00-0.30) K/uL Imm/Tot Granulo (auto) % Sodium 138 (135-149) mmol/L Potassium 4.0 (3.6-5.1) mmol/L Chloride 106 (96-114) mmol/L Carbon Dioxide 22 (20-32) mmol/L Anion Gap 10 (7-15) mEq/L BUN 20 (7-30) mg/dL Creatinine 1.1 (0.5-1.5) mg/dL Estimated Creat Clear 78.75 Estimated GFR 72 ml/min Glucose 124 H (60-115) mg/dL Lactate (0.5-1.9) mmol/L Calcium 8.1 L (8.4-10.6) mg/dL Iron (49-181) ug/dL TIBC (261-462) ug/dL % Saturation (20-50) % Urine Color (Yellow) Urine Appearance (Clear) Urine pH (5.0-8.5) Ur Specific [place] (1.000-1.030) Urine Protein (Negative) Urine Glucose (UA) (Negative) Urine Ketones (Negative) Urine Blood (Negative) Urine Nitrite (Negative) Urine Bilirubin (Negative) Urine Urobilinogen (0.2-1.0) Ur Leukocyte Esterase (Negative) Urine RBC (0-2) Urine WBC (0-5) Ur Squamous Epith Cells (None-Few) Urine Bacteria (None) SARS-CoV-2 (PCR) (Negative) Influenza Type A (PCR) (Negative) Influenza Type B (PCR) (Negative) Lab Acknowledgement Test Added Blood Type Antibody Screen Crossmatch (AHG) 01/30/23 01/31/23 Range/Units 06:00 05:56 WBC (4.50-11.00) K/uL RBC (4.30-5.90) m/uL Hgb 8.1 L 8.4 L (13.5-17.5) gm/dL Hct (37.0-53.0) % MCV (80-100) fL MCH (26-34) pg MCHC (32-36) gm/dL RDW Coeff of Liana (11.5-15.5) % Plt Count (140-440) K/uL Neut % (Auto) (42.0-72.0) % Lymph % (Auto) (20-44) % [place] % (Auto) (0.0-11.0) % Eos % (Auto) (0.0-7.0) % Baso % (Auto) (0.0-3.0) % Neut # (Auto) (1.7-7.0) K/uL Lymph # (Auto) (0.90-2.90) K/uL [place] # (Auto) (0.00-0.90) K/UL Eos # (Auto) (0.00-0.50) K/uL Baso # (Auto) (0.00-0.30) K/uL Abs Immat Gran (auto) (0.00-0.30) K/uL Imm/Tot Granulo (auto) % Sodium 137 (135-149) mmol/L Potassium 4.0 (3.6-5.1) mmol/L Chloride 104 (96-114) mmol/L Carbon Dioxide 22 (20-32) mmol/L Anion Gap 11 (7-15) mEq/L BUN 13 (7-30) mg/dL Creatinine 1.1 (0.5-1.5) mg/dL Estimated Creat Clear 78.75 Estimated GFR 72 ml/min Glucose 167 H (60-115) mg/dL Lactate (0.5-1.9) mmol/L Calcium 8.4 (8.4-10.6) mg/dL Iron (49-181) ug/dL TIBC (261-462) ug/dL % Saturation (20-50) % Urine Color (Yellow) Urine Appearance (Clear) Urine pH (5.0-8.5) Ur Specific [place] (1.000-1.030) Urine Protein (Negative) Urine Glucose (UA) (Negative) Urine Ketones (Negative) Urine Blood (Negative) Urine Nitrite (Negative) Urine Bilirubin (Negative) Urine Urobilinogen (0.2-1.0) Ur Leukocyte Esterase (Negative) Urine RBC (0-2) Urine WBC (0-5) Ur Squamous Epith Cells (None-Few) Urine Bacteria (None) SARS-CoV-2 (PCR) (Negative) Influenza Type A (PCR) (Negative) Influenza Type B (PCR) (Negative) Lab Acknowledgement Blood Type Antibody Screen Crossmatch (AHG) Discharge Plan Discharge Clinical Impression: Symptomatic anemia Patient Disposition: Admitted As Observation Condition: Stable Activity Level: Up with assist and Use Walker Activity Detail: PT/OT to evaluate and treat Discharge Diet: Diabetic
[2023-01-25 19:57] LABS: Chloride* 107 mmol/L (96-114); Potassium* 3.7 mmol/L (3.6-5.1); Sodium* 140 mmol/L (135-149)
[2023-01-25 20:00] LABS: Anion Gap 10 mEq/L (7-15); Blood Urea Nitrogen* 21 mg/dL (7-30); Calcium* 8.3 mg/dL (8.4-10.6); Carbon Dioxide* 23 mmol/L (20-32); Creatinine* 1.2 mg/dL (0.5-1.5); Est. Creatinine Clearance* 72.19; Estimated Glomerular Filt Rate 65 ml/min; Glucose* 175 mg/dL (60-115)
[2023-01-25] MEDS: 0.9 % SODIUM CHLORIDE 1000 ml 1,000 ML IV (20:16)
[2023-01-25 21:00] LABS: PCR FLU A Negative PCR FLU A (Negative); PCR FLU B Negative PCR FLU B (Negative)
[2023-01-25 21:02] LABS: SARS PCR* Negative SARS-CoV-2 (Negative)
[2023-01-25 21:53] LABS: Appearance Urine Clear (Clear); Bilirubin Urine Negative (Negative); Blood Urine Negative (Negative); Color Urine Yellow (Yellow); Glucose Urine Trace (Negative); Ketones Urine Negative (Negative); Leukocyte Esterase Urine Negative (Negative); Nitrite Urine Negative (Negative); Protein Urine Trace (Negative); pH Urine 7.5 (5.0-8.5)
[2023-01-25 22:22] LABS: Bacteria Urine Few; RBC Urine 0-2 (0-2); Squamous Epithelial Cell Urine Few (None-Few); WBC Urine 0-2 (0-5)
--- NOTE | 2023-01-25 23:43 | PC.NURSE ---
Admit 0- Patient arrives via stretcher- is able to move short distances with walker, gait belt. He admits to lower back pain, which is chronic for him. Denies SOB. Blood transfusion initiated, patient tolerates without issue.
--- NOTE | 2023-01-25 23:58 | P.IMHP_ITS ---
Hospitalist- H&P: HPI History of Present Illness Time Seen by Provider: 23:30 Date Seen: 01/25/23 Chief complaint: Increasingly weak with low hemoglobin Narrative: Zoltan Olivera is a 72 year old man who presents to the emergency department with concern of increasing weakness. He has chronic debility in association with multiple medical conditions as specified below. Is basically homebound now. A home care nurse presented to his home today to draw blood for CBC due to concerns of evolving anemia. Nurse was unable to draw the blood. Consultation with his [facility] physician was undertaken and recommendation given for him to go to the emergency department for further assessment. EMS was thus called to bring him into the emergency department given his inability to leave the home without ambulance support. In our emergency department CBC was drawn and his hemoglobin was 7.2. He denies any overt blood loss. He acknowledges being told in the past that he has heme- positive stools. He acknowledges being told the past that he needs additional assessment for the same. With his evolving debility it has been difficult for him to make any such arrangements. Decision was made to proceed with the transfusion with 2 units of packed red blood cells for now. Additionally, efforts will be undertaken to try to coordinate some future date and time when he can have an esophagogastroduodenoscopy and colonoscopy performed in order to further assess possible causes of his evolving condition. Review of Systems Status of ROS: Reports: 10 or more systems reviewed and unremarkable except as noted in History and below Narrative: Lives home with his . Lumbar spinal stenosis is severe. Has had evolving weakness of lower extremities in association with the same. Historically consulted with neurosurgeon at [facility], [place], [place]. Neurosurgeon declined to proceed with surgery at that time. Patient trying to coordinate repeat consultation with neurosurgeon at [facility]. Neuro surgery at [facility] declined assessment given that [facility] Neurosurgery was previously involved. He has spent the better part of the entire summer in hospitals, including the one-month inpatient rehabilitation stay at [facility] related to his evolving weakness in association with his lumbar spinal stenosis. Is now homebound because of this. Can only be transported via ambulance because of this condition in association with multiple other comorbidities. Denies angina, anginal equivalent, syncope, near syncope, nausea, vomiting, dyspnea at rest, paroxysmal nocturnal dyspnea, orthopnea. Utilizes his CPAP at at bedtime. Denies diarrhea, constipation. Denies abdominal pain, dyspepsia, dysphagia, odynophagia. Denies change in bowel caliber. Denies any overt blood loss. No recent trauma or injury. Denies myalgias, arthralgias. Denies neurogenic bowel or bladder at this time. [facility] Medical History Diabetes mellitus type 2 in obese ?E11.69 - Type 2 diabetes mellitus with other specified complication (ICD-10) ?E66.9 - Obesity, unspecified (ICD-10) Syncope ?R55 - Syncope and collapse (ICD-10) Benign prostatic hyperplasia ?N40.0 - Benign prostatic hyperplasia without lower urinary tract symptoms (ICD-10) Primary hypothyroidism ?E03.9 - Hypothyroidism, unspecified (ICD-10) Prostate nodule ?N40.2 - Nodular prostate without lower urinary tract symptoms (ICD-10) Hyperlipidemia ?E78.5 - Hyperlipidemia, unspecified (ICD-10) Chronic kidney disease ?N18.9 - Chronic kidney disease, unspecified (ICD-10) Essential hypertension ?I10 - Essential (primary) hypertension (ICD-10) Uric acid renal calculus ?N20.0 - Calculus of kidney (ICD-10) Nephrolithiasis ?N20.0 - Calculus of kidney (ICD-10) History of urinary tract infection ?Z87.440 - Personal history of urinary (tract) infections (ICD-10) Recurrent major depressive disorder ?F33.9 - Major depressive disorder, recurrent, unspecified (ICD-10) Chronic low back pain ?M54.50 - Low back pain, unspecified (ICD-10) ?G89.29 - Other chronic pain (ICD-10) Declining functional status ?R53.81 - Other malaise (ICD-10) Iron deficiency anemia ?D50.9 - Iron deficiency anemia, unspecified (ICD-10) Chronic idiopathic constipation ?K59.04 - Chronic idiopathic constipation (ICD-10) Atrial paroxysmal tachycardia ?I47.1 - Supraventricular tachycardia (ICD-10) Morbid obesity with BMI of 50.0-59.9, adult ?E66.01 - Morbid (severe) obesity due to excess calories (ICD-10) ?Z68.43 - Body mass index [BMI] 50.0-59.9, adult (ICD-10) Physical debility ?R53.81 - Other malaise (ICD-10) Diabetic peripheral neuropathy associated with type 2 diabetes mellitus ?E11.42 - Type 2 diabetes mellitus with diabetic polyneuropathy (ICD-10) Spinal stenosis, lumbar region without neurogenic claudication ?M48.061 - Spinal stenosis, lumbar region without neurogenic claudication (ICD-10) Lumbar radiculopathy, chronic ?M54.16 - Radiculopathy, lumbar region (ICD-10) BRITTNEY (obstructive sleep apnea) ?G47.33 - Obstructive sleep apnea (adult) (pediatric) (ICD-10) Surgical History History of tonsillectomy ?Z90.89 - Acquired absence of other organs (ICD-10) History of arthroscopy of both knees ?Z98.890 - Other specified postprocedural states (ICD-10) History of lumbar laminectomy ?Z98.890 - Other specified postprocedural states (ICD-10) Social History Narrative: He lives with his . Most of the last 3 months he has been hospitalized or in rehab for his back pain and leg weakness. Code status is full. 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 He does not smoke. He does not drink alcohol. He does not use recreational drugs. What is your current living situation?: I presently have a place to live Problems where you live: no known problems Problems where you live details: NA In the past 12 months, utilities in danger of being shut off: no In past 12 months, lack of transportation kept you from medical appts, meetings, work, or getting things needed for daily living: no In the past 12 mos, have been you worried that your food would run out before you had money to buy more?: never true In the past 12 mos, the food you bought just didn't last and you didn't have money to buy more?: never true Highest level of school completed/degree received: Bachelor's degree Smoking Status: Former smoker Do you use any of these nicotine containing products: None Second hand tobacco smoke exposure: Yes How often do you have a drink containing alcohol: monthly or less Alcohol type: beer How often do you have six or more drinks on one occasion: Never AUDIT-C Alcohol total score: 1 Non-prescribed substance use: denies use Caffeine: No How often does anyone, including family, friends and others, physically hurt you : never How often does anyone, including family, friends and others, insult or talk down to you: never How often does anyone, including family, friends and others, threaten you with harm: never How often does anyone, including family, friends and others, scream or curse at you: never service: No Meds Home Medications and Allergies Home Medications Medication Instructions Recorded Confirmed Type allopurinol 300 mg tablet 300 mg PO DAILY 10/03/22 12/31/22 History glipizide 5 mg tablet, extended 5 mg PO BID 10/03/22 01/01/23 History release 24 hr insulin glargine 100 unit/mL (3 38 unit subcut HS 10/03/22 01/01/23 History mL) subcutaneous pen (Lantus Solostar U-100 Insulin) levothyroxine 100 mcg tablet 100 mcg PO DAILY 10/03/22 12/31/22 History levothyroxine 125 mcg tablet 125 mcg PO DAILY 10/03/22 12/31/22 History magnesium oxide 400 mg (241.3 mg 400 mg PO DAILY 10/03/22 12/31/22 History magnesium) tablet metformin 500 mg tablet,extended 500 mg PO DAILY 10/03/22 12/31/22 History release 24 hr pantoprazole 40 mg tablet,delayed 40 mg PO QPM 10/03/22 12/31/22 History release potassium chloride 20 mEq 60 meq PO DAILY 10/03/22 12/31/22 History tablet,extended release(part/cryst) (Klor-Con M) pravastatin 80 mg tablet 80 mg PO HS 10/03/22 12/31/22 History spironolactone 50 mg tablet 50 mg PO DAILY 10/03/22 12/31/22 History tamsulosin 0.4 mg capsule 0.8 mg PO HS 10/03/22 12/31/22 History acetaminophen 500 mg tablet 1,000 mg PO TID 11/28/22 01/01/23 History (Tylenol Extra Strength) duloxetine 30 mg capsule,delayed 30 mg PO BID 11/28/22 12/31/22 History release gabapentin 600 mg tablet 900 mg PO 3XD 11/28/22 01/01/23 History nystatin 100,000 unit/gram topical 1 applic topical BID 11/28/22 01/01/23 History powder sodium bicarbonate 650 mg tablet 1,950 mg PO TID 11/28/22 01/01/23 History diltiazem HCl 120 mg 120 mg PO DAILY 01/01/23 01/01/23 History capsule,extended release 24 hr (Cartia XT) glipizide 5 mg tablet 2.5 - 5 mg PO BIDWMEAL 01/01/23 01/01/23 History glucosamine-chondroitin 500 mg-400 1 tab PO TID 01/01/23 01/01/23 History mg tablet (Cosamin DS) hydrochlorothiazide 12.5 mg tablet 6.25 mg PO DAILY 01/01/23 01/01/23 History methocarbamol 750 mg tablet 750 mg PO Q6H PRN 01/01/23 01/01/23 History pregabalin 100 mg capsule 100 mg PO TID 01/01/23 01/01/23 History sennosides 8.6 mg tablet (senna) 8.6 - 17.2 mg PO BID PRN 01/01/23 01/01/23 History Allergies Allergy/AdvReac Type Severity Reaction Status Date / Time terazosin Allergy Severe Shortness Verified 12/31/22 21:08 of Breath amoxicillin [From Augmentin] Allergy Mild Diarrhea Verified 12/31/22 21:08 atenolol Allergy Mild Verified 12/31/22 21:08 clavulanic acid Allergy Mild Diarrhea Verified 12/31/22 21:08 [From Augmentin] lisinopril Allergy Unknown Verified 12/31/22 21:08 meperidine [From Demerol] Allergy Unknown Verified 12/31/22 21:08 trospium Allergy Unknown Verified 12/31/22 21:08 Exam Narrative: Exam Narrative: Examined patient in the hospital room. Appears comfortable and in no acute distress. Morbidly obese. Vision and hearing are grossly normal. Alert and oriented to self, place, time, situation. Friendly, articulate, cooperative. Mood and affect are congruent. No icterus or conjunctival injection. Pupils equally round reactive to light and accommodation. Conjugate vision. Extraocular muscles are intact. Midline nasal septum. Dentition in fair repair. Mallampati class 4 airway. Neck is full. Lungs clear to auscultation. Scattered rhonchi that clear with cough. No wheezing or rales. Chest wall excursions are full. Regular heart rate and rhythm. Normal S1-S2. No murmur, gallop, rub. PMI not laterally displaced. Abdomen is obese with active bowel sounds, soft, nontender. Bilateral lower extremity edema with Velcro wraps. Moves all 4 extremities. Skin is intact. No rashes, cyanosis, petechiae. Const: Vital Signs, click to edit/add: Vital Signs - 24 hr 01/25/23 19:25 01/25/23 19:30 01/25/23 19:30 Temperature 98.3 F Pulse Rate Pulse Rate [Left P ulse Oximeter] Pulse Rate [Pulse Oximeter] 84 Respiratory Rate 16 20 Blood Pressure Blood Pressure [Le ft Arm] Blood Pressure [Ri ght Upper Arm] 166/71 H Pulse Oximetry 98 97 Oxygen Delivery Me od Room Air 01/25/23 20:04 01/25/23 20:16 01/25/23 20:30 Temperature Pulse Rate 80 82 74 Pulse Rate [Left P ulse Oximeter] Pulse Rate [Pulse Oximeter] Respiratory Rate Blood Pressure 180/74 H Blood Pressure [Le ft Arm] Blood Pressure [Ri ght Upper Arm] Pulse Oximetry 99 99 97 Oxygen Delivery Me thod 01/25/23 20:32 01/25/23 21:00 01/25/23 21:02 Temperature Pulse Rate 69 96 77 Pulse Rate [Left P ulse Oximeter] Pulse Rate [Pulse Oximeter] Respiratory Rate Blood Pressure 186/83 H 181/87 H Blood Pressure [Le ft Arm] Blood Pressure [Ri ght Upper Arm] Pulse Oximetry 96 99 100 Oxygen Delivery Me thod 01/25/23 21:30 01/25/23 21:32 01/25/23 23:00 Temperature 98.3 F Pulse Rate 77 82 85 Pulse Rate [Left P ulse Oximeter] Pulse Rate [Pulse Oximeter] Respiratory Rate 20 20 Blood Pressure 184/90 H 181/80 H Blood Pressure [Le ft Arm] Blood Pressure [Ri ght Upper Arm] Pulse Oximetry 98 98 92 Oxygen Delivery Me thod 01/25/23 23:12 01/25/23 23:16 Temperature 98.2 F 98.3 F Pulse Rate 85 Pulse Rate [Left P ulse Oximeter] 85 Pulse Rate [Pulse Oximeter] Respiratory Rate 20 20 Blood Pressure 177/78 H Blood Pressure [Le ft Arm] 180/84 H Blood Pressure [Ri ght Upper Arm] Pulse Oximetry 97 94 Oxygen Delivery Me thod Room Air Documenting provider has reviewed patient's vital signs: yes Hospitalist - H&P: Result Labs Labs: Short CBC 01/25/23 Range/Units 19:27 WBC 7.92 (4.50-11.00) K/uL Hgb 7.2 L* (13.5-17.5) gm/dL Hct 25.4 L (37.0-53.0) % Plt Count 305 (140-440) K/uL BMP 01/25/23 19:27 Sodium 140 Potassium 3.7 Chloride 107 Carbon Dioxide 23 BUN 21 Creatinine 1.2 Glucose 175 H Calcium 8.3 L Urine 01/25/23 Range/Units 22:15 Urine Color Yellow (Yellow) Urine Appearance Clear (Clear) Urine pH 7.5 (5.0-8.5) Ur Specific [place] 1.020 (1.000-1.030) Urine Protein Trace A (Negative) Urine Glucose (UA) Trace A (Negative) Assessment and Plan Assessment and plan (1) Symptomatic anemia: Problem comment: - 01/25/2023: Hg 7.2 - Transfuse 2 units PRBC - 01/26/2023: recheck Hg Status: Acute (2) Heme positive stool: Problem comment: - needs EGD and colonoscopy scheduled and coordinated: will need help for bowel prep at home, ambulance ride to and from hospital, anesthesia support for procedures due to high risk given his BRITTNEY, morbid obesity, and weakness and debility associated with spinal stenosis Status: Acute (3) Spinal stenosis, lumbar region without neurogenic claudication: Problem comment: MRI and clinical evaluation at [facility] in October and [facility] in November showed significant deficits which were not felt to be surgical. Marked clinical improvement with rehab with abrupt onset of weakness today. Attempted to transfer to [facility]. They are close to admissions. Continue medical management/conservative management. Outpatient follow-up with [facility] in the 1st week of January Status: Acute (4) Lumbar radiculopathy, chronic: Problem comment: Chronic right hip pain and weakness likely due to this. Multilevel lumbar radiculopathy. Clinically appears to be more of a problem with spinal stenosis causing weakness Status: Acute (5) Physical debility: Problem comment: Continue therapy Status: Acute (6) Morbid obesity with BMI of 50.0-59.9, adult: Problem comment: I discussed with patient the value of weight loss to improve his chronic back pain, disability and other chronic medical problems. He is open to a calorie restricted diet while he is here in the hospital. Status: Acute (7) BRITTNEY (obstructive sleep apnea): Problem comment: home CPAP Status: Acute (8) Diabetic peripheral neuropathy associated with type 2 diabetes mellitus: Status: Acute (9) Diabetes mellitus type 2 in obese: Problem comment: Well controlled. Continue to monitor Status: Acute Plan 1. Reviewed impression and recommendations with patient and . 2. The agreeable with above stated plans and recommendations.
[2023-01-26] VITALS (11 sets, daily range): BP systolic 175–203; BP diastolic 80–93; PULSE 73–83; RESP 18–22; TEMP 36.6–37.7; O2SAT 93–98
--- NOTE | 2023-01-26 01:33 | CRLHL7_ITS ---
For Patients: As a result of the Cures Act, medical imaging exams and procedure reports are released immediately into your electronic medical record. You may view this report before your referring provider. If you have questions, please contact your health care provider. Indication: Shortness of breath Technique: Chest 1 view Comparison: May 14, 2021 Findings/Impression: Cardiomegaly. Normal pulmonary vasculature. There is new patchy opacity in the left perihilar region. This may represent atelectasis or infection. No effusion or pneumothorax. No acute osseous abnormality. Dictated by Leila Hinds MD @ 01/26/2023 3:27:24 AM (Electronically Signed)
[2023-01-26] MEDS: FUROSEMIDE 10 MG/ML inj 20 MG IVP (02:40)
[2023-01-26] MEDS: SODIUM CHLORIDE 0.9 % (FLUSH) 10 ML SYRINGE 5 ML IVF ×3 (02:40→21:46)
[2023-01-26] MEDS: LEVOTHYROXINE 100 MCG TABLET PO (05:59)
[2023-01-26] MEDS: LEVOTHYROXINE 125 MCG TABLET PO (05:59)
[2023-01-26] MEDS: ACETAMINOPHEN 500 MG TABLET 1000 MG PO ×3 (06:42→21:28)
[2023-01-26 06:53] LABS: Hematocrit 28.2 % (37.0-53.0); Hemoglobin* 8.3 gm/dL (13.5-17.5); Mean Corpuscular HGB Conc 29 gm/dL (32-36); Mean Corpuscular Hemoglobin 22 pg (26-34); Mean Corpuscular Volume 75 fL (80-100); Platelet Count* 288 K/uL (140-440); Red Blood Count 3.75 m/uL (4.30-5.90); White Blood Count* 9.03 K/uL (4.50-11.00)
[2023-01-26 07:16] LABS: Slide Review Reflex No
--- NOTE | 2023-01-26 08:08 | PC.NURSE ---
END OF SHIFT NOTE: PT PLEASANT AND COOPERATIVE. A&Ox3. DENIES CP AND N/V. AMBULATES WITH [facility]. VSS ON RA; AFEBRILE. 2UNITS PRBC ADMINISTERED NOC. PT C/O NEW ONSET OF WHEEZING. BLOOD INFUSION RATE DECREASED. CHARGE AND HORIZON UPDATED. LASIX ORDERED BETWEEN UNITS. WHEEZING WAS RELIEVED. PT STOOD AT BEDSIDE OVERNIGHT TO USE URINAL. PT REQUIRES ASSISTANCE HOLDING URINAL. PT RATED RIGHT LEG PAIN 6/10. 3-4/10 OF CHRONIC NECK AND BACK PAIN. HX OF BRITTNEY- CPAP WORN AT HS. FOOT SCD'S NOT PLACED D/T NOT FITTING PT'S FEET. BED ALARM ON AND CALL LIGHT WITHIN PT?S REACH.?
[2023-01-26] MEDS: PREGABALIN 100 MG CAPSULE PO ×3 (10:06→21:29)
[2023-01-26] MEDS: POTASSIUM CHLORIDE 10 MEQ CAPSULE ER 60 MEQ PO (10:06)
[2023-01-26] MEDS: GABAPENTIN 600 MG TABLET 900 MG PO ×3 (10:06→21:29)
[2023-01-26] MEDS: SPIRONOLACTONE 25 MG TABLET 50 MG PO (10:07)
[2023-01-26] MEDS: hydroCHLOROthiazide 25 MG TABLET 6.25 MG PO (10:08)
[2023-01-26] MEDS: METFORMIN ER 500 MG PO (10:09)
[2023-01-26] MEDS: glipiZIDE XL 5 MG TAB PO ×2 (10:09→10:12)
[2023-01-26] MEDS: MAGNESIUM OXIDE 400 MG TABLET PO (10:10)
[2023-01-26] MEDS: DULOXETINE 30 MG CAPSULE DR PO ×2 (10:11→21:29)
[2023-01-26] MEDS: dilTIAZem 120 MG CAP.ER.24H PO ×2 (10:11→21:29)
[2023-01-26] MEDS: allopurinoL 300 MG TABLET PO (10:11)
[2023-01-26] MEDS: glipiZIDE 5 MG TABLET PO ×2 (10:12→18:44)
--- NOTE | 2023-01-26 10:12 | PM.IMPN1 ---
Progress Note: A&P Assessment and plan (1) Symptomatic anemia: Problem details: - 01/25/2023: Hg 7.2 - Transfuse 2 units PRBC 01/25 - 01/26/2023: recheck Hg 8.3 Status: Acute (2) Heme positive stool: Problem details: - needs EGD and colonoscopy scheduled and coordinated: will need help for bowel prep at home, ambulance ride to and from hospital, anesthesia support for procedures due to high risk given his BRITTNEY, morbid obesity, and weakness and debility associated with spinal stenosis Status: Acute (3) Spinal stenosis, lumbar region without neurogenic claudication: Problem details: MRI and clinical evaluation at [facility] in October and [place] in November showed significant deficits which were not felt to be surgical. Marked clinical improvement with rehab with abrupt onset of weakness today. Attempted to transfer to [facility]. They are close to admissions. Continue medical management/conservative management. Outpatient follow-up with [facility] in the 1st week of January. PT/OT assessments pending here Status: Acute (4) Lumbar radiculopathy, chronic: Problem details: Chronic right hip pain and weakness likely due to this. Multilevel lumbar radiculopathy. Clinically appears to be more of a problem with spinal stenosis causing weakness Status: Acute (5) Physical debility: Problem details: Generalized weakness in addition to spinal stenosis, patient notes upper extremity weakness possibly secondary to anemia. Continue therapies Status: Acute (6) Morbid obesity with BMI of 50.0-59.9, adult: Problem details: Discussion on admission the value of weight loss to improve his chronic back pain, disability and other chronic medical problems. He is open to a calorie restricted diet while he is here in the hospital. Status: Acute (7) BRITTNEY (obstructive sleep apnea): Problem details: home CPAP Status: Acute (8) Diabetic peripheral neuropathy associated with type 2 diabetes mellitus: Status: Acute (9) Diabetes mellitus type 2 in obese: Problem details: Well controlled. Continue to monitor Status: Acute Subjective Date Seen: 01/26/23 Interval history: Subjective: Patient is seen and examined. He is quite tired, didn't sleep much last night. Denies chest pain, abdominal pain, lightheadedness, but endorses general weakness. Objective: General: No distress, well appearing, morbidly obese HEENT: NCAT CV: RRR, no murmur Resp: Breathing is unlabored, CTAB Extrem: No significant pitting edema Neuro: Alert, awake, no lateralizing deficits Exam Const: Vital Signs, click to edit/add: Vital Signs - 24 hr 01/25/23 19:25 01/25/23 19:30 01/25/23 19:30 Temperature 98.3 F Pulse Rate Pulse Rate [Left P ulse Oximeter] Pulse Rate [Pulse Oximeter] 84 Respiratory Rate 16 20 Blood Pressure Blood Pressure [Le ft Arm] Blood Pressure [Ri ght Upper Arm] 166/71 H Pulse Oximetry 98 97 Oxygen Delivery Me thod Room Air 01/25/23 20:04 01/25/23 20:16 01/25/23 20:30 Temperature Pulse Rate 80 82 74 Pulse Rate [Left P ulse Oximeter] Pulse Rate [Pulse Oximeter] Respiratory Rate Blood Pressure 180/74 H Blood Pressure [Le ft Arm] Blood Pressure [Ri ght Upper Arm] Pulse Oximetry 99 99 97 Oxygen Delivery Me thod 01/25/23 20:32 01/25/23 21:00 01/25/23 21:02 Temperature Pulse Rate 69 96 77 Pulse Rate [Left P ulse Oximeter] Pulse Rate [Pulse Oximeter] Respiratory Rate Blood Pressure 186/83 H 181/87 H Blood Pressure [Le ft Arm] Blood Pressure [Ri ght Upper Arm] Pulse Oximetry 96 99 100 Oxygen Delivery Me thod 01/25/23 21:30 01/25/23 21:32 01/25/23 23:00 Temperature 98.3 F Pulse Rate 77 82 85 Pulse Rate [Left P ulse Oximeter] Pulse Rate [Pulse Oximeter] Respiratory Rate 20 20 Blood Pressure 184/90 H 181/80 H Blood Pressure [Le ft Arm] Blood Pressure [Ri ght Upper Arm] Pulse Oximetry 98 98 92 Oxygen Delivery Me thod 01/25/23 23:12 01/25/23 23:16 01/26/23 03:00 Temperature 98.2 F 98.3 F 98.5 F Pulse Rate 85 83 Pulse Rate [Left P ulse Oximeter] 85 Pulse Rate [Pulse Oximeter] Respiratory Rate 20 20 18 Blood Pressure 177/78 H 180/90 H Blood Pressure [Le ft Arm] 180/84 H Blood Pressure [Ri ght Upper Arm] Pulse Oximetry 97 94 94 Oxygen Delivery Me thod Room Air 01/26/23 03:15 01/26/23 03:15 01/26/23 03:30 Temperature 99.9 F H 99.9 F H 98.4 F Pulse Rate 83 Pulse Rate [Left P ulse Oximeter] 83 Pulse Rate [Pulse Oximeter] Respiratory Rate 18 18 Blood Pressure 175/87 H Blood Pressure [Le ft Arm] 175/87 H Blood Pressure [Ri ght Upper Arm] Pulse Oximetry 93 93 Oxygen Delivery Me thod Room Air 01/26/23 04:30 01/26/23 05:30 Temperature 98.5 F 98.0 F Pulse Rate 82 75 Pulse Rate [Left P ulse Oximeter] Pulse Rate [Pulse Oximeter] Respiratory Rate 20 20 Blood Pressure 203/93 H 184/84 H Blood Pressure [Le ft Arm] Blood Pressure [Ri ght Upper Arm] Pulse Oximetry 98 98 Oxygen Delivery Me thod Labs Labs: Laboratory Results - last 24 hr 01/25/23 01/25/23 01/25/23 19:27 19:43 20:03 WBC 7.92 RBC 3.42 L Hgb 7.2 L* Hct 25.4 L MCV 74 L MCH 21 L MCHC 28 L RDW Coeff of Liana 17.6 H Plt Count 305 Neut % (Auto) 66.0 Lymph % (Auto) 22.7 [place] % (Auto) 7.2 Eos % (Auto) 3.7 Baso % (Auto) 0.3 Neut # (Auto) 5.23 Lymph # (Auto) 1.80 [place] # (Auto) 0.60 Eos # (Auto) 0.29 Baso # (Auto) 0.02 Abs Immat Gran (auto) 0.01 Imm/Tot Granulo (auto) 0.1 Sodium 140 Potassium 3.7 Chloride 107 Carbon Dioxide 23 Anion Gap 10 BUN 21 Creatinine 1.2 Estimated Creat Clear 72.19 Estimated GFR 65 Glucose 175 H Lactate 2.8 H Calcium 8.3 L Urine Color Urine Appearance Urine pH Ur Specific [place] Urine Protein Urine Glucose (UA) Urine Ketones Urine Blood Urine Nitrite Urine Bilirubin Urine Urobilinogen Ur Leukocyte Esterase Urine RBC Urine WBC Ur Squamous Epith Cells Urine Bacteria SARS-CoV-2 (PCR) Negative SARS-CoV-2 Influenza Type A (PCR) Negative PCR FLU A Influenza Type B (PCR) Negative PCR FLU B Blood Type A Positive Antibody Screen NEGATIVE Crossmatch (AHG) See Detail 01/25/23 01/26/23 22:15 06:35 WBC 9.03 RBC 3.75 L Hgb 8.3 L Hct 28.2 L MCV 75 L MCH 22 L MCHC 29 L RDW Coeff of [place]iana Plt Count 288 Neut % (Auto) Lymph % (Auto) [place] % (Auto) Eos % (Auto) Baso % (Auto) Neut # (Auto) Lymph # (Auto) [place] # (Auto) Eos # (Auto) Baso # (Auto) Abs Immat Gran (auto) Imm/Tot Granulo (auto) Sodium Potassium Chloride Carbon Dioxide Anion Gap BUN Creatinine Estimated Creat Clear Estimated GFR Glucose Lactate Calcium Urine Color Yellow Urine Appearance Clear Urine pH 7.5 Ur Specific [place] 1.020 Urine Protein Trace A Urine Glucose (UA) Trace A Urine Ketones Negative Urine Blood Negative Urine Nitrite Negative Urine Bilirubin Negative Urine Urobilinogen 1.0 Ur Leukocyte Esterase Negative Urine RBC 0-2 Urine WBC 0-2 Ur Squamous Epith Cells Few Urine Bacteria Few A SARS-CoV-2 (PCR) Influenza Type A (PCR) Influenza Type B (PCR) Blood Type Antibody Screen Crossmatch (AHG)
--- NOTE | 2023-01-26 12:20 | REH.PT ---
Pt refusing PT eval this PM. Reporting that he's too fatigued and would like to defer eval until tomorrow.
[2023-01-26] MEDS: SODIUM BICARBONATE 650 MG TABLET 1950 MG PO ×2 (14:18→21:31)
[2023-01-26] MEDS: NYSTATIN POWDER 1 APPLIC TOPICAL ×2 (14:26→21:32)
--- NOTE | 2023-01-26 15:40 | PC.NURSE ---
Pt stated he didn't sleep well during blood transfusion of 2 units last night. Please see eMar for medications provided on day shift. BG at bkfst 144, BG at noon 196. Pt declined order of lunch tray d/to late bkfst. OT and PT evaluations initiated. Pt napped with CPAP on prior to VS check. HGB stable. No dysphagia w/medications. Bariatric bed delivered today and used for patient. A bariatric recliner for this patient has been ordered. Continue plan of care. Report to Stephanie HAMEED and Verenice RN for evening shift per protocol. Ice pack to right lower back, pt has chronic low back pain and joint pain w/neuropathy secondary to his diabetes. Nutrition consult ordered d/to obesity, diabetes and anemia at admission yesterday. Admission papers and physical assessment completed on this patient.
--- NOTE | 2023-01-26 16:43 | PC.SOCIAL ---
Discharge planning- Met with pt in room to discuss discharge plans. Pt is hopeful to be able to go home with his 's assistance in the home. Pt is not ready for discharge per MD. Per therapy, pt is ambulating with assist of 1. Social work will follow up as needed.
[2023-01-26] MEDS: OMEPRAZOLE 20 MG CAPSULE DR 40 MG PO (18:44)
[2023-01-26] MEDS: TAMSULOSIN HCL 0.4 MG CAPSULE 0.8 MG PO (21:30)
[2023-01-26] MEDS: PRAVASTATIN SODIUM 20 MG TABLET 80 MG PO (21:30)
--- NOTE | 2023-01-26 23:28 | PC.NURSE ---
Pt alert and oriented. Pt afebrile and rating pain 2-5/10 in R lower back and R leg. Managed with medication from JUN with verbalized improvement. Patient tolerating diet well, transfers using walker and 1 assist. Patient up in chair during shift. Patient resting comfortably at end of shift.
[2023-01-27 03:30] VITALS: BP 183/80; PULSE 74; PULSE 83; RESP 18; TEMP 36.4; O2SAT 94
[2023-01-27] MEDS: LEVOTHYROXINE 125 MCG TABLET PO (06:12)
[2023-01-27] MEDS: LEVOTHYROXINE 100 MCG TABLET PO (06:12)
[2023-01-27 06:41] LABS: Hemoglobin* 8.4 gm/dL (13.5-17.5)
[2023-01-27 07:05] LABS: Chloride* 107 mmol/L (96-114); Potassium* 3.9 mmol/L (3.6-5.1); Sodium* 139 mmol/L (135-149)
[2023-01-27 07:07] LABS: Creatinine* 1.1 mg/dL (0.5-1.5); Est. Creatinine Clearance* 78.75; Estimated Glomerular Filt Rate 72 ml/min
[2023-01-27 07:08] LABS: Anion Gap 8 mEq/L (7-15); Blood Urea Nitrogen* 19 mg/dL (7-30); Calcium* 8.2 mg/dL (8.4-10.6); Carbon Dioxide* 24 mmol/L (20-32); Glucose* 125 mg/dL (60-115)
--- NOTE | 2023-01-27 07:09 | PC.NURSE ---
END OF SHIFT NOTE: PT PLEASANT AND COOPERATIVE WITH CARES. STANDS AT BEDSIDE TO USE URINAL; REQUIRES STAFF ASSIST TO HOLD URINAL. WORE CPAP @ HS. VSS ON RA; AFEBRILE. AMBULATES WITH A1/WALKER. UNEVENTFUL NIGHT.
[2023-01-27 08:45] VITALS: BP 182/86; PULSE 86; RESP 22; TEMP 36.6; O2SAT 97
--- NOTE | 2023-01-27 10:40 | P.IMPN_ITS ---
Progress Note: A&P Assessment and plan (1) Symptomatic anemia: Problem details: - 01/25/2023: Hg 7.2 - Transfuse 2 units PRBC 01/25 - 01/26/2023: recheck Hg 8.3 - 01/27/23: Hgb stable at 8.4 Status: Acute (2) Heme positive stool: Problem details: - needs EGD and colonoscopy scheduled and coordinated: will need help for bowel prep at home, ambulance ride to and from hospital, anesthesia support for procedures due to high risk given his BRITTNEY, morbid obesity, and weakness and debility associated with spinal stenosis Status: Acute (3) Spinal stenosis, lumbar region without neurogenic claudication: Problem details: MRI and clinical evaluation at [facility] in October and [place] in November showed significant deficits which were not felt to be surgical. Marked clinical improvement with rehab with abrupt onset of weakness today. Attempted to transfer to [facility]. They are close to admissions. Continue medical management/conservative management. Outpatient follow-up with [facility] in the week of January. PT/OT assessments pending here Status: Acute (4) Lumbar radiculopathy, chronic: Problem details: Chronic right hip pain and weakness likely due to this. Multilevel lumbar radiculopathy. Clinically appears to be more of a problem with spinal stenosis causing weakness Status: Acute (5) Physical debility: Problem details: Generalized weakness in addition to spinal stenosis, patient notes upper extremity weakness possibly secondary to anemia. Continue therapies. to bring in knee brace which increases his confidence with steps. He will need to be able to do steps to get into his house. Status: Acute (6) Morbid obesity with BMI of 50.0-59.9, adult: Problem details: Discussion on admission the value of weight loss to improve his chronic back pain, disability and other chronic medical problems. He is open to a calorie restricted diet while he is here in the hospital. Status: Acute (7) BRITTNEY (obstructive sleep apnea): Problem details: home CPAP Status: Acute (8) Diabetic peripheral neuropathy associated with type 2 diabetes mellitus: Status: Acute (9) Diabetes mellitus type 2 in obese: Problem details: Well controlled. Continue to monitor Status: Acute Subjective Date Seen: 01/27/23 Interval history: Subjective: Patient is seen and examined. He feels significantly improved today. Ambulated well with PT, but unable to to steps and has 2 steps into home. Objective: General: No distress, well appearing, morbidly obese HEENT: NCAT CV: RRR, no murmur Resp: Breathing is unlabored, CTAB Extrem: No significant pitting edema Neuro: Alert, awake, no lateralizing deficits Exam Const: Vital Signs, click to edit/add: Vital Signs - 24 hr 01/26/23 13:15 01/26/23 14:00 01/26/23 15:00 Temperature 98.5 F Pulse Rate [Left P ulse Oximeter] 73 Respiratory Rate 22 22 20 Blood Pressure [Le ft Arm] 197/93 H Pulse Oximetry 96 95 93 Oxygen Delivery Me thod Room Air Room Air CPAP Room Air 01/26/23 15:00 01/26/23 19:00 01/26/23 23:00 Temperature 98.2 F 97.8 F Pulse Rate [Left P ulse Oximeter] 79 74 Respiratory Rate 20 20 20 Blood Pressure [Le ft Arm] 193/80 H 180/80 H Pulse Oximetry 93 95 Oxygen Delivery Me thod Room Air Room Air Room Air 01/27/23 03:30 01/27/23 03:30 01/27/23 03:30 Temperature 97.6 F Pulse Rate [Left P ulse Oximeter] 74 83 Respiratory Rate 18 18 18 Blood Pressure [Le ft Arm] 183/80 H Pulse Oximetry 94 94 Oxygen Delivery Me thod Room Air Room Air Labs Labs: Laboratory Results - last 24 hr 01/27/23 06:16 Hgb 8.4 L Sodium 139 Potassium 3.9 Chloride 107 Carbon Dioxide 24 Anion Gap 8 BUN 19 Creatinine 1.1 Estimated Creat Clear 78.75 Estimated GFR 72 Glucose 125 H Calcium 8.2 L
[2023-01-27] MEDS: DULOXETINE 30 MG CAPSULE DR PO ×2 (10:59→21:28)
[2023-01-27] MEDS: dilTIAZem 30 MG TABLET PO (10:59)
[2023-01-27] MEDS: PREGABALIN 100 MG CAPSULE PO ×3 (10:59→21:24)
[2023-01-27 11:00] VITALS: BP 198/93; PULSE 84; RESP 22; TEMP 37.4; O2SAT 99
[2023-01-27] MEDS: GABAPENTIN 600 MG TABLET 900 MG PO ×3 (11:00→21:22)
[2023-01-27] MEDS: glipiZIDE 5 MG TABLET PO ×2 (11:00→17:52)
[2023-01-27] MEDS: POTASSIUM CHLORIDE 10 MEQ CAPSULE ER 60 MEQ PO (11:00)
[2023-01-27] MEDS: SODIUM CHLORIDE 0.9 % (FLUSH) 10 ML SYRINGE 5 ML IVF ×2 (11:00→21:29)
[2023-01-27] MEDS: hydroCHLOROthiazide 25 MG TABLET 6.25 MG PO (11:01)
[2023-01-27] MEDS: dilTIAZem 120 MG CAP.ER.24H PO ×2 (11:02→21:28)
[2023-01-27] MEDS: SODIUM BICARBONATE 650 MG TABLET 1950 MG PO ×3 (11:02→21:26)
[2023-01-27] MEDS: METFORMIN ER 500 MG PO (11:03)
[2023-01-27] MEDS: ACETAMINOPHEN 500 MG TABLET 1000 MG PO ×3 (11:03→21:24)
[2023-01-27] MEDS: SPIRONOLACTONE 25 MG TABLET 50 MG PO (11:03)
[2023-01-27] MEDS: MAGNESIUM OXIDE 400 MG TABLET PO (11:03)
[2023-01-27] MEDS: allopurinoL 300 MG TABLET PO (11:04)
[2023-01-27] MEDS: NYSTATIN POWDER 1 APPLIC TOPICAL ×2 (11:05→21:28)
[2023-01-27 12:45] LABS: Iron* 34 ug/dL (49-181)
[2023-01-27 12:54] LABS: Percent Iron Saturation 9 % (20-50); Total Iron Binding Capacity 384 ug/dL (261-462)
--- NOTE | 2023-01-27 14:52 | PC.SOCIAL ---
Addendum entered by AI Choi 01/27/23 15:34: Faxed update progress notes, medication list, and therapy notes to [facility] at [phone]. Original Note: Per MD, pt will discharge to home tomorrow. Pt needs an ambulance ride set up and will need to resume home care services (Nursing, PT, OT, and home health aide). Received a phone call from Emma at [facility] at [phone]. Emma is requesting an update and asking for a resumption of home care order to be faxed to [phone]. Emma informs pt is currently receiving Nursing, PT, OT, and home health aide. Provided update. Per pt, he would like this worker to discuss discharge plans with his . Phone call to pt's to discuss discharge plans. Pt's has concerns regarding discharge home due to having a few steps in her home. Pt's informs that she was informed pt needed a Endoscopy procedure and a colonoscopy procedure and she wonders why it is not being completed inpatient. Pt's will come in to speak with MD regarding this. Pt's wonders if pt would benefit from short-term rehab. Discussed with pt's that it would be private pay due to needing a 3 night inpatient stay and pt being in hospital in observation status. Pt's does not want to pay. Informed pt's that pt is refusing SNF and wants to return home. Pt's shares that she works full-time and is not home during the day. Pt's will be bringing in pt's brace and will discuss with MD. Provided update to charge nurse. Social work will continue to follow up as needed.
[2023-01-27 15:00] VITALS: BP 157/92; PULSE 78; PULSE 84; RESP 20; TEMP 36.9; O2SAT 95
--- NOTE | 2023-01-27 15:44 | PC.NURSE ---
Addendum entered by Marely Flood RN 01/27/23 15:56: charting error, lunch time BG was 209 and pt received 2 units of SS insulin as coverage. Original Note: Pt's mood has improved with addition of bariatric bed and bariatric recliner. BG 127 in am and 206 at lunch time. Please see eMar for multiple oral meds provided to patient and SS insulin. Good appetite and adequate I &0, no dysphagia with meds, no behaviors. Plan NPO post MN with maintenance IVF for endoscopy tomorrow. Report to Lorie Valdez RN for evening shift.
[2023-01-27] MEDS: OMEPRAZOLE 20 MG CAPSULE DR 40 MG PO (17:52)
[2023-01-27 19:00] VITALS: BP 163/87; PULSE 78; RESP 20; TEMP 36.9; O2SAT 96
[2023-01-27] MEDS: TAMSULOSIN HCL 0.4 MG CAPSULE 0.8 MG PO (21:23)
[2023-01-27] MEDS: PRAVASTATIN SODIUM 20 MG TABLET 80 MG PO (21:24)
[2023-01-27] MEDS: glipiZIDE XL 5 MG TAB PO (21:28)
--- NOTE | 2023-01-27 22:51 | PC.NURSE ---
Patient up to the chair for the evening. Standing to use the urinal. Sliding scale novolog and levemir was given at bedtime with a blood sugar of 188. Nystatin applied to groin. Pt able to ambulate from chair to the other side of the bed independently/stand by assistance.
[2023-01-27 23:40] VITALS: BP 177/92; PULSE 86; RESP 22; TEMP 36.5; O2SAT 95
[2023-01-27] MEDS: LACTATED RINGERS 1000 ML 1,000 ML 125 ML IV (23:53)
[2023-01-28 04:00] VITALS: BP 181/73; PULSE 86; RESP 24; TEMP 36.5; O2SAT 95
[2023-01-28] MEDS: dilTIAZem 30 MG TABLET PO (04:26)
[2023-01-28] MEDS: LEVOTHYROXINE 100 MCG TABLET PO (06:15)
[2023-01-28] MEDS: LEVOTHYROXINE 125 MCG TABLET PO (06:15)
--- NOTE | 2023-01-28 06:46 | PC.NURSE ---
Shift note [id number]: Pt alert and oriented x3. Afebrile. Pt wore CPAP overnight. Pt reports lower back pain 4/, pain management options and medications discussed pt stated ?I am fine, I have Tylenol in the morning, and I just got some around 9pm??Pt was given PRN Diltiazem for MAP >100 per MD order. Pt denies chest pain, and N/V.?SOB is noted with exertion. Pt slept throughout most of night and has been NPO since 0000.??
[2023-01-28 07:11] LABS: Chloride* 106 mmol/L (96-114)
[2023-01-28 07:12] LABS: Sodium* 138 mmol/L (135-149)
[2023-01-28 07:14] LABS: Creatinine* 1.1 mg/dL (0.5-1.5); Est. Creatinine Clearance* 78.75; Estimated Glomerular Filt Rate 72 ml/min
[2023-01-28 07:15] LABS: Anion Gap 10 mEq/L (7-15); Blood Urea Nitrogen* 20 mg/dL (7-30); Calcium* 8.1 mg/dL (8.4-10.6); Carbon Dioxide* 22 mmol/L (20-32); Glucose* 124 mg/dL (60-115)
[2023-01-28] MEDS: LACTATED RINGERS 1000 ML 1,000 ML 125 ML IV (09:13)
[2023-01-28] MEDS: POTASSIUM CHLORIDE 10 MEQ CAPSULE ER 60 MEQ PO (09:16)
[2023-01-28] MEDS: ACETAMINOPHEN 500 MG TABLET 1000 MG PO ×3 (09:17→20:59)
[2023-01-28] MEDS: hydroCHLOROthiazide 25 MG TABLET 6.25 MG PO (09:17)
[2023-01-28] MEDS: PREGABALIN 100 MG CAPSULE PO ×3 (09:17→20:59)
[2023-01-28] MEDS: SPIRONOLACTONE 25 MG TABLET 50 MG PO (09:18)
[2023-01-28] MEDS: glipiZIDE 5 MG TABLET PO (09:18)
[2023-01-28] MEDS: MAGNESIUM OXIDE 400 MG TABLET PO (09:18)
[2023-01-28] MEDS: GABAPENTIN 600 MG TABLET 900 MG PO ×3 (09:19→20:59)
[2023-01-28] MEDS: allopurinoL 300 MG TABLET PO (09:19)
[2023-01-28] MEDS: SENNOSIDES 1 TAB TABLET PO (09:19)
[2023-01-28] MEDS: METFORMIN ER 500 MG PO (09:20)
[2023-01-28] MEDS: SODIUM BICARBONATE 650 MG TABLET 1950 MG PO ×3 (09:20→20:58)
[2023-01-28] MEDS: NYSTATIN POWDER 1 APPLIC TOPICAL ×2 (09:21→21:07)
[2023-01-28] MEDS: DULOXETINE 30 MG CAPSULE DR PO ×2 (09:23→20:58)
[2023-01-28 10:00] VITALS: O2SAT 95
--- NOTE | 2023-01-28 10:11 | W.ANESCHARGE ---
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
--- NOTE | 2023-01-28 10:34 | W.ANESCHARGE ---
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
[2023-01-28 11:00] VITALS: BP 151/81; PULSE 77; RESP 22; TEMP 37.1; O2SAT 95
--- NOTE | 2023-01-28 12:25 | P.DS_ITS ---
During discharge process, patient condition required another night stay for observation due to weakness likely secondary to sedation for EGD which should no longer be an issue tomorrow. DS: Providers Provider Date Seen: 01/28/23 Date of admission: 01/25/23 22:05 Primary care physician: Grzegorz Wiggins MD Admitting Clinician: Saturnino Pedraza MD Consults: 01/25/23 23:48 Consult to Physical Therapy [CONS] Routine Comment: Reason(s) for PT Consult:: Evaluate and Treat Any Restrictions?:: No Restrictions Consult to [employer] [CONS] Routine Comment: coordinate ride home & future EGD & colonoscopy Reason for Consult:: Social Service Consult 01/25/23 23:51 Consult to Occupational Therapy [CONS] Routine Comment: Reason(s) for OT Consult:: Evaluate and Treat Any Restrictions?:: No Restrictions 01/26/23 14:40 Consult to Occupational Therapy [CONS] Routine Comment: Reason(s) for OT Consult:: Difficulty Managing ADLs Any Restrictions?:: No Restrictions Comment: poor hygiene only takes bed baths at home Consult to Physical Therapy [CONS] Routine Comment: Reason(s) for PT Consult:: Evaluate Ambulation Any Restrictions?:: No Restrictions Attending Physician on discharge: Annika Gimenez MD Date of Discharge: 01/28/23 DS: Diagnosis Discharge Diagnosis (1) Diabetes mellitus type 2 in obese: Status: Chronic Problem details: Well controlled. Continue outpatient management (2) BRITTNEY (obstructive sleep apnea): Status: Chronic Problem details: home CPAP (3) Heme positive stool: Status: Acute Problem details: - EGD done here and no concerning findings. Biopsies obtained and pending at time of discharge - Following transfusion, Hgb relatively stable. Patient has not had BM here (he reports this is not unusual) - Patient will need colonoscopy scheduled and coordinated: will either need help for bowel prep at home or arrange elsewhere for hospital admission for prep. Will also need ambulance ride to and from hospital, anesthesia support for procedures due to high risk given his BRITTNEY, morbid obesity, and weakness and debility associated with spinal stenosis. (4) Symptomatic anemia: Status: Acute Problem details: - 01/25/2023: Hg 7.2 - Transfuse 2 units PRBC 01/25 - 01/26/2023: recheck Hg 8.3 - 01/27/23: Hgb stable at 8.4 - 01/28/23: Hgb relatively stable at 8.0 - Recommend patient have Hgb draw with home care in next 3-5 days for ongoing monitoring (5) Neck injury: Status: Acute Problem details: CT head and cervical spine without apparent fracture. Improved in the hospital (6) Morbid obesity with BMI of 50.0-59.9, adult: Status: Acute Problem details: Discussion on admission the value of weight loss to improve his chronic back pain, disability and other chronic medical problems. He is open to a calorie restricted diet while he is here in the hospital. (7) Physical debility: Status: Acute Problem details: Generalized weakness in addition to spinal stenosis, patient notes upper extremity weakness possibly secondary to anemia. Continue therapies with home health. (8) Diabetic peripheral neuropathy associated with type 2 diabetes mellitus: Status: Acute (9) Spinal stenosis, lumbar region without neurogenic claudication: Status: Acute Problem details: MRI and clinical evaluation at [place] in October and [place] in November showed significant deficits which were not felt to be surgical. Marked clinical improvement with rehab with abrupt onset of weakness today. Attempted to transfer to [place]. They are close to admissions. Continue medical management/conservative management. Outpatient follow-up with [facility] in the 1st week of January. PT/OT evaluated him here. Recommend SNF, but currently not covered and patient wishes to return home. (10) Lumbar radiculopathy, chronic: Status: Acute Problem details: Chronic right hip pain and weakness likely due to this. Multilevel lumbar radiculopathy. Clinically appears to be more of a problem with spinal stenosis causing weakness DS: Summary Status at Discharge Functional status at discharge: wheelchair bound Overall status at discharge: patient is progressing back to baseline Time Spent with Patient Time attestation: Total time spent providing and/or coordinating discharge services: Time spent: Greater than 30 minutes Exam Narrative: Exam Narrative: General: No distress HEENT: NCAT, mmm CV: RRR, no m/g/r Resp: CTAB, no wheeze/ronchi Abd: Distended, obese, nontender with normal BS Ext: Lymphedema wraps on bilateral legs to knees Neuro: No lateralizing deficits. Const: Vital Signs, click to edit/add: Vital Signs - 24 hr 01/27/23 15:00 01/27/23 15:00 01/27/23 15:00 Temperature 98.5 F Pulse Rate [Left P ulse Oximeter] 84 78 Respiratory Rate 20 20 20 Blood Pressure [Le ft Arm] 157/92 H Pulse Oximetry 95 95 Oxygen Delivery Me thod Room Air Room Air 01/27/23 19:00 01/27/23 23:40 01/27/23 23:40 Temperature 98.4 F Pulse Rate [Left P ulse Oximeter] 78 86 Respiratory Rate 20 22 22 Blood Pressure [Le ft Arm] 163/87 H Pulse Oximetry 96 95 Oxygen Delivery Me thod Room Air Room Air 01/27/23 23:40 01/28/23 04:00 01/28/23 10:00 Temperature 97.7 F 97.7 F Pulse Rate [Left P ulse Oximeter] 86 86 Respiratory Rate 22 24 Blood Pressure [Le ft Arm] 177/92 H 181/73 H Pulse Oximetry 95 95 95 Oxygen Delivery Me thod Room Air Room Air Room Air 01/28/23 11:00 Temperature 98.8 F Pulse Rate [Left P ulse Oximeter] 77 Respiratory Rate 22 Blood Pressure [Le ft Arm] 151/81 H Pulse Oximetry 95 Oxygen Delivery Me thod Room Air DS: Data Data Completed and Pending Labs on day of discharge: Labs from last 24 hours 01/28/23 01/27/23 01/27/23 06:15 12:19 06:16 Hgb 8.0 L Sodium 138 Potassium 4.0 Chloride 106 Carbon Dioxide 22 Anion Gap 10 BUN 20 Creatinine 1.1 Estimated Creat Clear 78.75 Estimated GFR 72 Glucose 124 H Calcium 8.1 L Iron 34 L TIBC 384 % Saturation 9 L Lab Acknowledgement Test Added Discharge Plan Discharge Disposition: Home, Self-Care Date of Admission: 01/25/23 22:05 Attending Provider on Discharge: Annika Gimenez Primary Care Provider: Grzegorz Wiggins Condition: Stable Anticipated Discharge Date/Time: 01/28/23 16:00 Discharge Medications: New diltiazem HCl 240 mg Capsule,Extended Release 24hr 240 mg PO BID 30 Days Qty: 60 0RF Continued levothyroxine 100 mcg tablet 100 mcg PO DAILY Patient Comments: TOTAL DOSE = 225MCG potassium chloride [Klor-Con M20] 20 mEq tablet,ER particles/crystals 60 meq PO DAILY pravastatin 80 mg tablet 80 mg PO HS magnesium oxide 400 mg (241.3 mg magnesium) tablet 400 mg PO DAILY tamsulosin 0.4 mg capsule 0.8 mg PO HS pantoprazole 40 mg tablet,delayed release (DR/EC) 40 mg PO QPM levothyroxine 125 mcg tablet 125 mcg PO DAILY Patient Comments: TOTAL DOSE = 225MCG allopurinol 300 mg tablet 300 mg PO DAILY metformin 500 mg tablet extended release 24 hr 500 mg PO DAILY spironolactone 50 mg tablet 50 mg PO DAILY insulin glargine [Lantus Solostar U-100 Insulin] 100 unit/mL (3 mL) insulin pen 38 unit subcut HS gabapentin 600 mg tablet 900 mg PO 3XD nystatin 100,000 unit/gram powder 1 applic topical BID duloxetine 30 mg capsule,delayed release(DR/EC) 30 mg PO BID sodium bicarbonate 650 mg tablet 1,950 mg PO TID acetaminophen [Tylenol Extra Strength] 500 mg tablet 1,000 mg PO TID glipizide 5 mg tablet 2.5 - 5 mg PO BIDWMEAL Rx Instructions: TAKE 1 TAB (5 MG) IN AM AND 1/2 TAB (2.5 MG) IN PM hydrochlorothiazide 12.5 mg tablet 6.25 mg PO DAILY methocarbamol 750 mg tablet 750 mg PO Q6H PRN pregabalin 100 mg capsule 100 mg PO TID sennosides [senna] 8.6 mg tablet 8.6 - 17.2 mg PO BID PRN glucosamine-chondroitin [Cosamin DS] 500-400 mg tablet 1 tab PO TID Discontinued diltiazem HCl [Cartia XT] 120 mg capsule,extended release 24hr 120 mg PO DAILY Activity Level: Activity as Tolerated Discharge Diet: Diabetic Follow Up Appointments: Grzegorz Wiggins MD [Primary Care Provider] - Forms: [facility] Info Instructions
[2023-01-28] MEDS: dilTIAZem 120 MG CAP.ER.24H PO (12:30)
--- NOTE | 2023-01-28 12:37 | PC.SOCIAL ---
Addendum entered by Joy Pichardo LCSW 01/28/23 14:52: Discharge planning: Update-patient is not being discharged today. This manual writer contacted Emma ([phone]) at [facility] to update. Social work to follow up as needed. Original Note: Discharge planning- Met with pt, pt's , and MD in room to discuss discharge plans. Pt is discharging this afternoon and transporting via non-emergency ambulance. Charge nurse is aware and will set non-emergency ambulance up. Pt will resume home care with [facility] including Nursing, PT, OT, and home health aide. Phone call to [facility] to provide update. Confirmed that [facility] has received discharge orders. Pt is needing a HGB blood draw on Tuesday from home care. Home care can do this but will need an order from the MD ([facility] ). Provided pt and pt's with information on licensed home inspector care and discussed the services with pt's . Informed this is a private pay of assistance in the home. Social work will follow up as needed.
[2023-01-28 15:20] VITALS: BP 164/71; PULSE 80; RESP 24; TEMP 36.4; O2SAT 94
--- NOTE | 2023-01-28 15:45 | PC.NURSE ---
Pt NPO until upper endoscopy completed. Please see eMar for meds provided on day shift. Pt rating his chronic pain 2-3 out of 10. Adv to regular diet for lunch. Bariatric bed and recliner. Pt failed stair challenge with [facility] PT, dyspneic with minimal activity, BP slightly improved. Brace to right knee when pt is ambulating. Eval by Dr. Gimenez on day shift. Yoli attentive and concerned at bedside d/to pt's weakness when up this afternoon. Discharge post-poned. No dysphagia w/meds. Continue POC. Report to Lorie Coppola RN. BG values 121 at bkfst and 140 at lunch time, no SS insulin required.
--- NOTE | 2023-01-28 16:32 | PC.SOCIAL ---
Dischagre plan: Spoke with who states MD told her patient can stay overnight and be discharged tomorrow. Discussed with that home care can start with [facility] on Tuesday if he is discharged home but that social work had heard she was [place] [facility] [place] at discharge. states she will not pay privately for [place] [facility] and he will discharge home tomorrow. She does not want social media senior associate to look for a [place] [facility] [place]. PRIOR TO DISCHARGE: RN to fax completed Face to Face form and discharge summary with MD order for home care to [facility] (fax: [phone], weekend phone number [phone] option 3. Please call [facility] to confirm discharge as they have care set up to start at home on Tuesday01/31/23.
[2023-01-28] MEDS: glipiZIDE 5 MG TABLET 2.5 MG PO (17:32)
[2023-01-28] MEDS: OMEPRAZOLE 20 MG CAPSULE DR 40 MG PO (17:33)
[2023-01-28 19:03] VITALS: BP 164/77; PULSE 75; RESP 22; TEMP 36.7; O2SAT 95
[2023-01-28] MEDS: PRAVASTATIN SODIUM 20 MG TABLET 80 MG PO (20:59)
[2023-01-28] MEDS: dilTIAZem 240 MG CAP (CD) PO (20:59)
[2023-01-28] MEDS: TAMSULOSIN HCL 0.4 MG CAPSULE 0.8 MG PO (20:59)
[2023-01-28] MEDS: SODIUM CHLORIDE 0.9 % (FLUSH) 10 ML SYRINGE 5 ML IVF (21:00)
--- NOTE | 2023-01-28 22:15 | PC.NURSE ---
Shift [id number]- Patient is up to chair this afternoon. He walks to bathroom with gait belt, walker and assist/2, tolerates fairly well. He admits to lower back pain, agreeable with scheduled pain med schedule. He is washed up at bedside and also uses shampoo cap- states he is too weak to use shower this afternoon. Additional cleaning to skin folds (pannus, groin) this evening with nystatin administration. Skin folds are malodorous and reddened.
[2023-01-28 23:40] VITALS: BP 178/86; PULSE 85; RESP 20; TEMP 36.4; O2SAT 93; O2SAT 95
[2023-01-29] MEDS: dilTIAZem 30 MG TABLET PO (00:17)
[2023-01-29 03:30] VITALS: BP 139/66; PULSE 81; RESP 22; TEMP 36.5; O2SAT 93
--- NOTE | 2023-01-29 06:10 | PC.NURSE ---
End of shift nursing note, [id number]: Pt alert and oriented. Vitals stable, initial BP elevated 178/86, PRN Diltiazem admin per parameters, BP improved to 139/86 at recheck. Pt states chronic pain to low back, allowed to sleep. Stood at side of bed to use urinal for brief periods of time before having to sit back on the bed. Pt stated he was unable to stand for weight this AM, bed weight obtained. Used CPAP at night, uneventful shift, slept well in between cares. Call light within reach.?
[2023-01-29] MEDS: LEVOTHYROXINE 125 MCG TABLET PO (06:31)
[2023-01-29] MEDS: LEVOTHYROXINE 100 MCG TABLET PO (06:31)
[2023-01-29 07:00] VITALS: BP 152/70; PULSE 79; RESP 16; TEMP 37.1; O2SAT 95
[2023-01-29 07:09] LABS: Hemoglobin* 7.9 gm/dL (13.5-17.5)
[2023-01-29] MEDS: glipiZIDE 5 MG TABLET PO (09:15)
[2023-01-29] MEDS: ACETAMINOPHEN 500 MG TABLET 1000 MG PO ×3 (09:15→21:26)
[2023-01-29] MEDS: dilTIAZem 240 MG CAP (CD) PO ×2 (09:16→21:27)
[2023-01-29] MEDS: allopurinoL 300 MG TABLET PO (09:16)
[2023-01-29] MEDS: GABAPENTIN 600 MG TABLET 900 MG PO ×3 (09:17→21:28)
[2023-01-29] MEDS: DULOXETINE 30 MG CAPSULE DR PO ×2 (09:17→21:27)
[2023-01-29] MEDS: hydroCHLOROthiazide 25 MG TABLET 6.25 MG PO (09:19)
[2023-01-29] MEDS: METFORMIN ER 500 MG PO (09:20)
[2023-01-29] MEDS: MAGNESIUM OXIDE 400 MG TABLET PO (09:20)
[2023-01-29] MEDS: NYSTATIN POWDER 1 APPLIC TOPICAL ×2 (09:21→21:43)
[2023-01-29] MEDS: POTASSIUM CHLORIDE 10 MEQ CAPSULE ER 60 MEQ PO (09:22)
[2023-01-29] MEDS: PREGABALIN 100 MG CAPSULE PO ×3 (09:23→21:31)
[2023-01-29] MEDS: SODIUM BICARBONATE 650 MG TABLET 1950 MG PO ×3 (09:24→21:33)
[2023-01-29] MEDS: SODIUM CHLORIDE 0.9 % (FLUSH) 10 ML SYRINGE 5 ML IVF ×2 (09:24→20:57)
[2023-01-29] MEDS: SPIRONOLACTONE 25 MG TABLET 50 MG PO (09:26)
[2023-01-29 11:00] VITALS: BP 147/67; PULSE 75; RESP 18; TEMP 36.6; O2SAT 96
--- NOTE | 2023-01-29 12:33 | CRLHL7_ITS ---
For Patients: As a result of the Cures Act, medical imaging exams and procedure reports are released immediately into your electronic medical record. You may view this report before your referring provider. If you have questions, please contact your health care provider. INDICATION: Pain with ambulation. TECHNIQUE: Three views of the left knee. FINDINGS: No acute left knee fracture or dislocation. Moderately advanced osteoarthritis with tricompartmental hypertrophic change in medial compartment narrowing. Dictated by Deyvi Lerma MD @ 01/29/2023 1:49:15 PM (Electronically Signed)
[2023-01-29] MEDS: LIDOCAINE 5% PATCH 1 PATCH TRANSDERMA (14:04)
[2023-01-29 15:00] VITALS: BP 154/65; PULSE 71; RESP 18; TEMP 36.1; O2SAT 97
--- NOTE | 2023-01-29 16:46 | P.IMPN_ITS ---
Progress Note: A&P Assessment and plan (1) Symptomatic anemia: Problem details: - 01/25/2023: Hg 7.2 - Transfuse 2 units PRBC 01/25 - 01/26/2023: recheck Hg 8.3 - 01/27/23: Hgb stable at 8.4 - 01/28/23: Hgb relatively stable at 8.0 - 01/29 hemoglobin 7.9 Status: Acute (2) Heme positive stool: Problem details: - EGD done here and no concerning findings. Biopsies obtained and pending at time of discharge - Following transfusion, Hgb relatively stable. Patient has not had BM here (he reports this is not unusual) - colonoscopy now scheduled for Tuesday at 2:15 p.m.. Starting a 2 day prep tonight with bisacodyl b.i.d. and go lightly 8 L over the next 48 hours. Status: Acute (3) Spinal stenosis, lumbar region without neurogenic claudication: Problem details: MRI and clinical evaluation at [facility] in October and [facility] in November showed significant deficits which were not felt to be surgical. Marked clinical improvement with rehab with abrupt onset of weakness today. Attempted to transfer to [facility]. They are close to admissions. Continue medical management/conservative management. Outpatient follow-up with [facility] in the week of January. PT/OT evaluated him here. Recommend SNF, patient and now agreeable. Status: Acute (4) Lumbar radiculopathy, chronic: Problem details: Chronic right hip pain and weakness likely due to this. Multilevel lumbar radiculopathy. Clinically appears to be more of a problem with spinal stenosis causing weakness Status: Acute (5) Physical debility: Problem details: Generalized weakness in addition to spinal stenosis, patient notes upper extremity weakness possibly secondary to anemia. Continue therapies with home health. Status: Acute (6) Morbid obesity with BMI of 50.0-59.9, adult: Problem details: Discussion on admission the value of weight loss to improve his chronic back pain, disability and other chronic medical problems. He is open to a calorie restricted diet while he is here in the hospital. Status: Acute (7) BRITTNEY (obstructive sleep apnea): Problem details: home CPAP Status: Chronic (8) Diabetic peripheral neuropathy associated with type 2 diabetes mellitus: Status: Acute (9) Diabetes mellitus type 2 in obese: Problem details: Well controlled. Continue outpatient management, adjust for bowel prep tomorrow Status: Chronic Plan Due to recurrent weakness and knees giving out, patient is not safe to return home and [facility]. At present there is no safe discharge plan. Subjective Time Seen by Provider: 11:02 Date Seen: 01/29/23 Interval history: Martir was feeling stronger and did well in PT/OT this am, but had left knee pain. He and his planned to take him home today. Then he became weak again and was unable to get up from the chair. In further discussion with the patient and his , they demonstrated understanding that he will need rehab before going home and that we will attempt d/c to SNF on Tuesday. We have set him up for a diagnostic colonoscopy on Tuesday at 2:15 p.m.. The patient and his are aware of this and grateful that we can do this in the hospital since the prep would likely be very difficult for him to accomplish at home. Exam Narrative: Exam Narrative: General: No acute distress. Awake, alert, oriented x3. No pallor. No jaundice. Morbidly obese. Oropharynx: Clear. Mucous membranes moist. Cardiovascular: Regular rate and rhythm. No murmurs, gallops, or rubs. Respiratory: Clear to auscultation bilaterally. No wheezes or crackles. Abdomen: Bowel sounds present. Soft, nondistended, nontender. Extremities: Barrington's toes in place bilaterally. Left knee has good range of motion, without pain or tenderness. Const: Vital Signs, click to edit/add: Vital Signs - 24 hr 01/28/23 19:03 01/28/23 23:40 01/28/23 23:40 Temperature 98.1 F Pulse Rate [Left P ulse Oximeter] 75 85 Respiratory Rate 22 20 20 Blood Pressure [Le ft Arm] 164/77 H Pulse Oximetry 95 93 Oxygen Delivery Me thod Room Air Room Air CPAP 01/28/23 23:40 01/29/23 03:30 01/29/23 07:00 Temperature 97.5 F L 97.7 F 98.7 F Pulse Rate [Left P ulse Oximeter] 85 81 79 Respiratory Rate 20 22 16 Blood Pressure [Le ft Arm] 178/86 H 139/66 152/70 H Pulse Oximetry 95 93 95 Oxygen Delivery Me thod Room Air Room Air Room Air 01/29/23 07:00 01/29/23 07:00 01/29/23 11:00 Temperature 97.9 F Pulse Rate [Left P ulse Oximeter] 79 75 Respiratory Rate 16 18 Blood Pressure [Le ft Arm] 147/67 H Pulse Oximetry 95 96 Oxygen Delivery Me thod Room Air Room Air 01/29/23 15:00 Temperature 97 F L Pulse Rate [Left P ulse Oximeter] 71 Respiratory Rate 18 Blood Pressure [Le ft Arm] 154/65 H Pulse Oximetry 97 Oxygen Delivery Me thod Room Air Labs Labs: Laboratory Results - last 24 hr 01/29/23 05:58 Hgb 7.9 L* Ordering Physician: Monique Johnson M.D. Date of Service: 01/29/23 Procedure(s): XR knee LT 2V Accession Number(s): [id number] cc: Monique Johnson M.D.; Grzegorz Wiggins M.D.~ For Patients: As a result of the Cures Act, medical imaging exams and procedure reports are released immediately into your electronic medical record. You may view this report before your referring provider. If you have questions, please contact your health care provider. INDICATION: Pain with ambulation. TECHNIQUE: Three views of the left knee. FINDINGS: No acute left knee fracture or dislocation. Moderately advanced osteoarthritis with tricompartmental hypertrophic change in medial compartment narrowing. Dictated by Deyvi Lerma MD @ 01/29/2023 1:49:15 PM (Electronically Signed)
[2023-01-29] MEDS: bisacodyL 5 MG TABLET DR 10 MG PO (18:30)
--- NOTE | 2023-01-29 18:34 | PC.NURSE ---
Elevated BP, otherwise, VSS. RA. Pain in back and right leg- scheduled pain meds given w/ relief. C/o left knee pain when walking with PT, lidocaine patch & knee x-ray ordered. X-ray negative. Generalized edema, right calf/foot 2+ pitting edema noted- leg elevated. Regular diet for most day, moved to clears for dinner as will start bowel prep. No SS insulin needed all day. Voided x3, last BM yesterday, 01/28. Showered- nystatin powder applied. Up with SB-assist + walker/gait belt, evening had to use ez-stand d/t weakness. PIV in left wrist- SL?d. Was going to d/c today, but now staying d/t continued weakness and feeling like knees are going to buckle w/ transfers. Plan to do colonoscopy Tuesday- started bowel prep this evening. Will continue to monitor, follow POC, and keep pt and family updated. Verenice Worthy RN
[2023-01-29 19:00] VITALS: BP 168/80; PULSE 85; RESP 18; TEMP 36.5; O2SAT 95
[2023-01-29] MEDS: OMEPRAZOLE 20 MG CAPSULE DR 40 MG PO (20:51)
[2023-01-29] MEDS: glipiZIDE 5 MG TABLET 2.5 MG PO (20:51)
[2023-01-29] MEDS: polyethylene glycoL 238 GM BULK BOTTLE PO (21:14)
[2023-01-29] MEDS: PRAVASTATIN SODIUM 20 MG TABLET 80 MG PO (21:30)
[2023-01-29] MEDS: TAMSULOSIN HCL 0.4 MG CAPSULE 0.8 MG PO (21:33)
[2023-01-29 23:00] VITALS: BP 168/66; PULSE 79; RESP 20; TEMP 36.6; O2SAT 93; O2SAT 95
[2023-01-30 03:31] VITALS: BP 166/78; PULSE 84; RESP 22; TEMP 36.6; O2SAT 96
[2023-01-30] MEDS: LEVOTHYROXINE 100 MCG TABLET PO (06:25)
[2023-01-30] MEDS: LEVOTHYROXINE 125 MCG TABLET PO (06:25)
[2023-01-30 07:00] VITALS: BP 156/86; PULSE 88; RESP 18; TEMP 36.8; O2SAT 94
[2023-01-30 07:16] LABS: Hemoglobin* 8.1 gm/dL (13.5-17.5)
--- NOTE | 2023-01-30 08:08 | PC.NURSE ---
Patient ambulated to bathroom with walker, gait belt and assist of 2. Reported pain rated 3/10 in his back. Began bowel prep, tolerated well. VSS
[2023-01-30] MEDS: polyethylene glycoL 238 GM BULK BOTTLE PO ×2 (09:09→17:37)
[2023-01-30] MEDS: POTASSIUM CHLORIDE 10 MEQ CAPSULE ER 60 MEQ PO (09:40)
[2023-01-30] MEDS: dilTIAZem 240 MG CAP (CD) PO ×2 (09:41→21:09)
[2023-01-30] MEDS: METFORMIN ER 500 MG PO (09:41)
[2023-01-30] MEDS: DULOXETINE 30 MG CAPSULE DR PO ×2 (09:41→21:10)
[2023-01-30] MEDS: glipiZIDE 5 MG TABLET PO (09:42)
[2023-01-30] MEDS: ACETAMINOPHEN 500 MG TABLET 1000 MG PO ×3 (09:42→21:10)
[2023-01-30] MEDS: allopurinoL 300 MG TABLET PO (09:42)
[2023-01-30] MEDS: MAGNESIUM OXIDE 400 MG TABLET PO (09:42)
[2023-01-30] MEDS: bisacodyL 5 MG TABLET DR 10 MG PO ×2 (09:43→21:09)
[2023-01-30] MEDS: GABAPENTIN 600 MG TABLET 900 MG PO ×3 (09:43→21:10)
[2023-01-30] MEDS: hydroCHLOROthiazide 25 MG TABLET 6.25 MG PO (09:43)
[2023-01-30] MEDS: PREGABALIN 100 MG CAPSULE PO ×3 (09:44→21:10)
[2023-01-30] MEDS: SPIRONOLACTONE 25 MG TABLET 50 MG PO (09:44)
[2023-01-30] MEDS: SODIUM CHLORIDE 0.9 % (FLUSH) 10 ML SYRINGE 5 ML IVF ×2 (09:44→21:09)
[2023-01-30] MEDS: NYSTATIN POWDER 1 APPLIC TOPICAL ×2 (09:46→22:08)
[2023-01-30] MEDS: SODIUM BICARBONATE 650 MG TABLET 1950 MG PO ×3 (09:46→21:11)
[2023-01-30 11:00] VITALS: BP 159/76; PULSE 81; RESP 16; TEMP 36.7; O2SAT 95
[2023-01-30] MEDS: LIDOCAINE 5% PATCH 1 PATCH TRANSDERMA (12:31)
--- NOTE | 2023-01-30 14:01 | PC.NURSE ---
Elevated BP, otherwise, VSS. RA. Pain of 3 in back and right leg- some relief w/ scheduled pain meds. Pleasant mood. Right hand & foot pitting edema, 2+- compression stockings/wraps on. Tolerating clear liquid diet & bowel prep- stool clear/green consistency w/ some small chunks. Voiding WNL. PIV left wrist- SL?d. Up to bathroom frequently w/ walker & assist of 2. Will continue to monitor, follow POC, and keep pt and family updated. Verenice Worthy RN
--- NOTE | 2023-01-30 14:02 | P.IMPN_ITS ---
Progress Note: A&P Assessment and plan (1) Symptomatic anemia: Problem details: - 01/25/2023: Hg 7.2 - Transfuse 2 units PRBC 01/25 - 01/26/2023: recheck Hg 8.3 - 01/30 hemoglobin remaining stable at 8.1 Status: Acute (2) Heme positive stool: Problem details: - EGD done here and no concerning findings. Biopsies obtained and pending at time of discharge - Following transfusion, Hgb relatively stable. Patient has not had BM here (he reports this is not unusual) - colonoscopy scheduled for Tuesday (tomorrow) at 2:15 p.m.. Started 2 day prep yesterday with bisacodyl b.i.d. and go lightly 8 L total to finish tomorrow around noon. Status: Acute (3) Spinal stenosis, lumbar region without neurogenic claudication: Problem details: MRI and clinical evaluation at [facility] in October and [facility] in November showed significant deficits which were not felt to be surgical. Marked clinical improvement with rehab with abrupt onset of weakness today. Attempted to transfer to [facility]. They are close to admissions. Continue medical management/conservative management. Outpatient follow-up with [facility] in the 1st week of January. PT/OT evaluated him here. Recommend SNF, patient and now agreeable. Status: Acute (4) Lumbar radiculopathy, chronic: Problem details: Chronic right hip pain and weakness likely due to this. Multilevel lumbar radiculopathy. Clinically appears to be more of a problem with spinal stenosis causing weakness Status: Acute (5) Physical debility: Problem details: Generalized weakness in addition to spinal stenosis, patient notes upper extremity weakness possibly secondary to anemia. Continue therapies. Status: Acute (6) Morbid obesity with BMI of 50.0-59.9, adult: Problem details: Discussion on admission the value of weight loss to improve his chronic back pain, disability and other chronic medical problems. He is open to a calorie restricted diet while he is here in the hospital. Status: Acute (7) BRITTNEY (obstructive sleep apnea): Problem details: home CPAP Status: Chronic (8) Diabetes mellitus type 2 in obese: Problem details: Fair control while on prep. Stop LA insulin and metformin and use ISS over night and tomorrow until able to eat after colonoscopy. Status: Chronic (9) Diabetic peripheral neuropathy associated with type 2 diabetes mellitus: Status: Acute Plan Due to recurrent weakness and knees giving out, patient is not safe to return home and long term facility for rehab is recommended. No SNF available this weekend. SW to continue to help with discharge planning in am. At present there is no safe discharge plan. Subjective Time Seen by Provider: 09:20 Date Seen: 01/30/23 Interval history: Zoltan is doing alright today. He's been able to get to the bathroom with the help of nurses while he does his prep. Less weak today and no knee pain. Bowel prep is progressing. Many stools. Exam Narrative: Exam Narrative: General: No acute distress. Awake, alert, oriented. No pallor. No jaundice. Morbidly obese. Oropharynx: Clear. Mucous membranes moist. Cardiovascular: Regular rate and rhythm. No murmurs, gallops, or rubs. Respiratory: Clear to auscultation bilaterally. No wheezes or crackles. Abdomen: Bowel sounds present. Soft, nondistended, nontender. Const: Vital Signs, click to edit/add: Vital Signs - 24 hr 01/29/23 15:00 01/29/23 15:00 01/29/23 15:00 Temperature 97 F L Pulse Rate [Left P ulse Oximeter] 71 71 Respiratory Rate 18 18 18 Blood Pressure [Le ft Arm] 154/65 H Pulse Oximetry 97 97 Oxygen Delivery Me thod Room Air Room Air 01/29/23 19:00 01/29/23 23:00 01/29/23 23:00 Temperature 97.7 F 97.8 F Pulse Rate [Left P ulse Oximeter] 85 79 Respiratory Rate 18 20 Blood Pressure [Le ft Arm] 168/80 H 168/66 H Pulse Oximetry 95 93 95 Oxygen Delivery Pa thod Room Air Room Air Room Air 01/30/23 03:31 01/30/23 07:00 01/30/23 07:00 Temperature 97.8 F 98.3 F Pulse Rate [Left P ulse Oximeter] 84 88 Respiratory Rate 22 18 18 Blood Pressure [Le ft Arm] 166/78 H 156/86 H Pulse Oximetry 96 94 94 Oxygen Delivery Pa thod Room Air Room Air Room Air 01/30/23 07:00 01/30/23 11:00 Temperature 98.1 F Pulse Rate [Left P ulse Oximeter] 88 81 Respiratory Rate 18 16 Blood Pressure [Le ft Arm] 159/76 H Pulse Oximetry 95 Oxygen Delivery Me thod Room Air Labs Labs: Laboratory Results - last 24 hr 01/30/23 06:00 Hgb 8.1 L
[2023-01-30 15:00] VITALS: BP 174/76; PULSE 80; RESP 22; TEMP 36.5; O2SAT 94
[2023-01-30 19:00] VITALS: BP 182/78; PULSE 82; RESP 22; TEMP 36.6; O2SAT 94
--- NOTE | 2023-01-30 19:04 | PC.NURSE ---
End of shift-- Pt has been pleasant, cooperative, alert and oriented. VSS and pt is afebrile. SPO2 maintained >90% on RA. He c/o chronic back and leg pain which he rated 4 out of 10 and stated was manageable while lying still. LS CTA. He denied nausea and drank >3 liters of blue Powerade for bowel prep today and has declined any other clear liquids at this time. He was up to the bathroom with assist of 1-2+ a walker and tolerated it well. was at bedside this evening and appears loving and supportive.
[2023-01-30] MEDS: OMEPRAZOLE 20 MG CAPSULE DR 40 MG PO (19:32)
[2023-01-30] MEDS: PRAVASTATIN SODIUM 20 MG TABLET 80 MG PO (21:10)
[2023-01-30] MEDS: TAMSULOSIN HCL 0.4 MG CAPSULE 0.8 MG PO (21:11)
[2023-01-30 23:00] VITALS: BP 185/84; PULSE 81; RESP 22; TEMP 36.6; O2SAT 90
[2023-01-31 03:00] VITALS: BP 165/72; PULSE 84; RESP 22; TEMP 36.4; O2SAT 94
--- NOTE | 2023-01-31 05:17 | PC.NURSE ---
Shift note: Pt has has been doing the GI prep for colonoscopy today. Has been drink the scheduled mixture and has been having frequent greenish watery stool, about 7x tonight. Pt is left with about 800mls to complete the scheduled mixture for the night but said he is not drinking anymore. Pt educated about the need to complete the rest of the mixture but insisted not to drink. Charge nurse informed. Doing well with A1, walker and GB to and from the BR. Systolic Bp >160 at 3 different occasion. A/O. Denied pain.
[2023-01-31] MEDS: LEVOTHYROXINE 100 MCG TABLET PO (06:21)
[2023-01-31] MEDS: LEVOTHYROXINE 125 MCG TABLET PO (06:21)
[2023-01-31 06:24] LABS: Hemoglobin* 8.4 gm/dL (13.5-17.5)
[2023-01-31 06:36] LABS: Chloride* 104 mmol/L (96-114); Sodium* 137 mmol/L (135-149)
[2023-01-31 06:39] LABS: Anion Gap 11 mEq/L (7-15); Carbon Dioxide* 22 mmol/L (20-32); Creatinine* 1.1 mg/dL (0.5-1.5); Est. Creatinine Clearance* 78.75; Estimated Glomerular Filt Rate 72 ml/min
[2023-01-31 06:40] LABS: Blood Urea Nitrogen* 13 mg/dL (7-30); Calcium* 8.4 mg/dL (8.4-10.6); Glucose* 167 mg/dL (60-115)
[2023-01-31 07:51] VITALS: BP 176/83; PULSE 81; RESP 16; TEMP 37; O2SAT 91
[2023-01-31 07:57] VITALS: O2SAT 91
[2023-01-31] MEDS: ACETAMINOPHEN 500 MG TABLET 1000 MG PO ×3 (08:15→20:26)
[2023-01-31] MEDS: allopurinoL 300 MG TABLET PO (08:17)
[2023-01-31] MEDS: bisacodyL 5 MG TABLET DR 10 MG PO (08:17)
[2023-01-31] MEDS: dilTIAZem 240 MG CAP (CD) PO ×2 (08:17→20:26)
[2023-01-31] MEDS: DULOXETINE 30 MG CAPSULE DR PO ×2 (08:18→20:29)
[2023-01-31] MEDS: GABAPENTIN 600 MG TABLET 900 MG PO ×3 (08:18→20:27)
[2023-01-31] MEDS: hydroCHLOROthiazide 25 MG TABLET 6.25 MG PO (08:20)
[2023-01-31] MEDS: MAGNESIUM OXIDE 400 MG TABLET PO (08:24)
[2023-01-31] MEDS: NYSTATIN POWDER 1 APPLIC TOPICAL ×2 (08:26→23:36)
[2023-01-31] MEDS: POTASSIUM CHLORIDE 10 MEQ CAPSULE ER 60 MEQ PO (08:26)
[2023-01-31] MEDS: PREGABALIN 100 MG CAPSULE PO ×3 (08:28→20:27)
[2023-01-31] MEDS: SODIUM BICARBONATE 650 MG TABLET 1950 MG PO ×4 (08:29→20:41)
[2023-01-31] MEDS: SODIUM CHLORIDE 0.9 % (FLUSH) 10 ML SYRINGE 5 ML IVF ×2 (08:30→20:29)
[2023-01-31] MEDS: SPIRONOLACTONE 25 MG TABLET 50 MG PO (08:30)
[2023-01-31 11:00] VITALS: BP 166/68; PULSE 83; RESP 20; TEMP 37; O2SAT 90
--- NOTE | 2023-01-31 13:19 | PC.NURSE ---
SHIFT NOTE: PATIENT CURRENTLY HAVING COLONOSCOPY PROCEDURE COMPLETED AND HAS THEREFORE BEEN ON CLEAR LIQUID DIET. HE CONTINUED TO REFUSE TO FINISH BOWEL PREP BEFORE PROCEDURE DESPITE EDUCATION AND ENCOURAGEMENT PROVIDED. LUNG SOUNDS HAVE BEEN CLEAR TO ALL LOBES BILATERALLY WITH NO COUGHING NOTED OR REPORTED. BOWEL SOUNDS ACTIVE X 4. NO N/V NOTED AND 1 SMALL LIQUID CONTINENT STOOL NOTED THIS MORNING. PATIENT HAS VOIDED IN TOILET TWO TIMES SO FAR THIS SHIFT AND HAS BEEN TRANSFERRING WITH ASSIST OF 1 USING FWW AND GB. PATIENT STATED PAIN TO RLE WAS 4/10 THIS MORNING WITH SCHEDULED MEDICATIONS UTILIZED FOR PAIN CONTROL. PATIENT REFUSING SCHEDULED LIDOCAINE PATCH. BLOOD GLUCOSE VALUES OF 154 AND 148 NOTED THIS SHIFT. OT APPLIED LYMPHEDEMA WRAPS TO BILATERAL LOWER EXTREMITIES AND PATIENT WAS ABLE TO USE SOCK AIDE TO PUT GRIPPER SOCKS ON THIS MORNING. NYSTATIN POWDER APPLIED TO REDDENED ABDOMINAL/GROIN FOLDS AFTER CLEANSING AND PATTING DRY.
--- NOTE | 2023-01-31 13:38 | W.ANESCHARGE ---
Anesthesia Charges Start Date/Time Anesthesia Start Date: 01/31/23 Anesthesia Start Time: 13:21 Stop Date/Time Anesthesia Stop Date: 01/31/23 Anesthesia Stop Time: 14:36 Summary Extremes of Age - Over 70 or under 1: MDA
--- NOTE | 2023-01-31 13:49 | PC.NURSE ---
GRAIN SPOUTER CALLED [facility] PER REQUEST TO ENSURE IS AWARE THAT PATIENT IS HAVING COLONOSCOPY PROCEDURE COMPLETED THIS AFTERNOON.
--- NOTE | 2023-01-31 14:38 | W.ANESCHARGE ---
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
[2023-01-31 15:00] VITALS: BP 160/78; PULSE 78; RESP 18; TEMP 37.1; O2SAT 97
--- NOTE | 2023-01-31 16:05 | PC.SOCIAL ---
Discharge planning: Spoke with by phone regarding discharge plan. is requesting placement in acute care rehab at [facility] where ot has been previously. Called ([phone]) and faxed ([phone]) information to [facility] for evaluation for admit. Received call back from Leigh in admissions stating she will review and get back to social work with a decision on admit. Leigh states she will also check on bed availability as they currently have no available beds. precast worker to follow up as needed.
[2023-01-31] MEDS: OMEPRAZOLE 20 MG CAPSULE DR 40 MG PO (16:46)
--- NOTE | 2023-01-31 17:09 | PM.IMPN1 ---
Progress Note: A&P Assessment and plan (1) Symptomatic anemia: Problem details: - 01/25/2023: Hg 7.2 - Transfuse 2 units PRBC 01/25 - 01/26/2023: recheck Hg 8.3 - 01/31 hemoglobin remaining stable at 8.4 Status: Acute (2) Heme positive stool: Problem details: - EGD done here and no concerning findings. Biopsies obtained and pending at time of discharge - Following transfusion, Hgb relatively stable. 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 Pathology pending. Status: Acute (3) Colonic mass: Status: Acute (4) Spinal stenosis, lumbar region without neurogenic claudication: Problem details: MRI and clinical evaluation at [facility] in October and [place] in November showed significant deficits which were not felt to be surgical. Marked clinical improvement with rehab with abrupt onset of weakness today. Attempted to transfer to [facility]. They are close to admissions. Continue medical management/conservative management. Outpatient follow-up with [facility] in the week of January. PT/OT evaluated him here. Recommend SNF, patient and now agreeable. We are seeking acute rehab at [facility] for him. Status: Acute (5) Lumbar radiculopathy, chronic: Problem details: Chronic right hip pain and weakness likely due to this. Multilevel lumbar radiculopathy. Clinically appears to be more of a problem with spinal stenosis causing weakness Status: Acute (6) Physical debility: Problem details: Generalized weakness in addition to spinal stenosis, patient notes upper extremity weakness possibly secondary to anemia. Continue therapies. Status: Acute (7) Morbid obesity with BMI of 50.0-59.9, adult: Problem details: Discussion on admission the value of weight loss to improve his chronic back pain, disability and other chronic medical problems. He is open to a calorie restricted diet while he is here in the hospital. Status: Acute (8) BRITTNEY (obstructive sleep apnea): Problem details: home CPAP Status: Chronic (9) Diabetes mellitus type 2 in obese: Problem details: Fair control while on prep. Resume usual diet after colonoscopy and resume usual diabetic medications. Status: Chronic (10) Diabetic peripheral neuropathy associated with type 2 diabetes mellitus: Status: Acute Plan Due to recurrent weakness and knees giving out, patient is not safe to return home and assisted facility for rehab is recommended. No SNF available this weekend. Seeking acute rehab verses assisted facility for rehab. At present there is no safe discharge plan. Time Spent With Patient Total time spent: Today I spent 60 minutes rounding on the patient. Greater than 50% included discussing the diagnosis and plan with the patient and his , phone call discussion with Dr. Acosta, discussing care with the team, reviewing data, updating and managing the care plan. Subjective Time Seen by Provider: 09:36 Date Seen: 01/31/23 Interval history: Martir's stool was clear this am. I examined him this morning. He underwent colonoscopy this afternoon. Dr. 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 There were also 15 polyps lower. Biopsies were done of the mass. Martir's , Yoli, was in the room after the colonoscopy. I went and spoke with both of them. 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 We talked about how he would likely have surgery, but it is too early to tell exactly what is going to need to happen since we do not have the pathology yet. We discussed how that may take several days yet. Exam Narrative: Exam Narrative: General: No acute distress. Awake, alert, oriented. No pallor. No jaundice. Morbidly obese. Oropharynx: Clear. Mucous membranes moist. Cardiovascular: Regular rate and rhythm. No murmurs, gallops, or rubs. Respiratory: Clear to auscultation bilaterally. No wheezes or crackles. Abdomen: Bowel sounds present. Soft, nondistended, nontender. Const: Vital Signs, click to edit/add: Vital Signs - 24 hr 01/30/23 19:00 01/30/23 23:00 01/30/23 23:00 Temperature 97.8 F 98 F Pulse Rate [Left P ulse Oximeter] 82 81 Respiratory Rate 22 22 22 Blood Pressure [Le ft Arm] 182/78 H 185/84 H Pulse Oximetry 94 90 90 Oxygen Delivery Me thod Room Air Room Air Room Air 01/31/23 03:00 01/31/23 07:51 01/31/23 07:57 Temperature 97.6 F 98.6 F Pulse Rate [Left P ulse Oximeter] 84 81 Respiratory Rate 22 16 Blood Pressure [Le ft Arm] 165/72 H 176/83 H Pulse Oximetry 94 91 91 Oxygen Delivery Me thod Room Air Room Air Room Air 01/31/23 11:00 01/31/23 15:00 Temperature 98.6 F 98.7 F Pulse Rate [Left P ulse Oximeter] 83 78 Respiratory Rate 20 18 Blood Pressure [Le ft Arm] 166/68 H 160/78 H Pulse Oximetry 90 97 Oxygen Delivery Me thod Room Air Room Air Labs Labs: Laboratory Results - last 24 hr 01/31/23 05:56 Hgb 8.4 L Sodium 137 Potassium 4.0 Chloride 104 Carbon Dioxide 22 Anion Gap 11 BUN 13 Creatinine 1.1 Estimated Creat Clear 78.75 Estimated GFR 72 Glucose 167 H Calcium 8.4
[2023-01-31] MEDS: glipiZIDE 5 MG TABLET 2.5 MG PO (18:07)
[2023-01-31 19:00] VITALS: BP 178/75; RESP 18; TEMP 36.6; O2SAT 97
[2023-01-31] MEDS: PRAVASTATIN SODIUM 20 MG TABLET 80 MG PO (20:27)
[2023-01-31] MEDS: TAMSULOSIN HCL 0.4 MG CAPSULE 0.8 MG PO (20:28)
--- NOTE | 2023-01-31 22:26 | PC.NURSE ---
Elevated BP, MAP >100, but pt refused BP PRN as was about to get bedtime BP medication, otherwise VSS. RA. Chronic pain of 3 in back and right leg- some relief w/ scheduled pain meds. Returned from colonoscopy at 1500. Lots of discussions w/ family in evening. Slightly irritable, frustrated w/ results of procedure. Ate 100% of dinner, no SS insulin needed. Drinking well. Voided x3. PIV in left wrist- SL?d. Up to bathroom w/ assist of 1, gait belt and walker. Will continue to monitor, follow POC, and keep pt and family updated. Verenice Worthy RN
[2023-02-01] VITALS (8 sets, daily range): BP systolic 145–171; BP diastolic 69–79; PULSE 78–88; RESP 15–20; TEMP 36.7–37.1; O2SAT 89–97
[2023-02-01] MEDS: LEVOTHYROXINE 100 MCG TABLET PO (06:11)
[2023-02-01] MEDS: LEVOTHYROXINE 125 MCG TABLET PO (06:11)
--- NOTE | 2023-02-01 07:40 | PC.NURSE ---
Pt is alert and oriented x3. Afebrile. Pt reports 2/10 dull and achy pain in lower back and left leg, pt reports tolerating pain. Pt is up A1 with walker. Pt denies SOB, chest pain and N/V. Pt slept throughout most of night. Pt wore CPAP throughout night.?
[2023-02-01] MEDS: glipiZIDE 5 MG TABLET PO ×2 (08:45→18:59)
[2023-02-01] MEDS: ACETAMINOPHEN 500 MG TABLET 1000 MG PO ×3 (08:45→21:13)
[2023-02-01] MEDS: dilTIAZem 240 MG CAP (CD) PO ×2 (08:46→21:14)
[2023-02-01] MEDS: allopurinoL 300 MG TABLET PO (08:46)
[2023-02-01] MEDS: GABAPENTIN 600 MG TABLET 900 MG PO ×3 (08:46→21:15)
[2023-02-01] MEDS: DULOXETINE 30 MG CAPSULE DR PO ×2 (08:46→21:13)
[2023-02-01] MEDS: bisacodyL 5 MG TABLET DR 10 MG PO (08:46)
[2023-02-01] MEDS: hydroCHLOROthiazide 25 MG TABLET 6.25 MG PO (08:47)
[2023-02-01] MEDS: MAGNESIUM OXIDE 400 MG TABLET PO (08:47)
[2023-02-01] MEDS: METFORMIN ER 500 MG PO (08:47)
[2023-02-01] MEDS: POTASSIUM CHLORIDE 10 MEQ CAPSULE ER 60 MEQ PO (08:48)
[2023-02-01] MEDS: SPIRONOLACTONE 25 MG TABLET 50 MG PO (08:48)
[2023-02-01] MEDS: PREGABALIN 100 MG CAPSULE PO ×3 (09:09→21:13)
[2023-02-01] MEDS: SODIUM BICARBONATE 650 MG TABLET 1950 MG PO ×3 (09:09→21:17)
--- NOTE | 2023-02-01 10:42 | PM.GSCN ---
History of Present Illness Consult details Date Seen: 02/01/23 Consult date: 02/01/23 Narrative: The patient is a 72-year-old male with a complex past medical history who I was consulted to see regarding a colon mass. The patient was admitted to the hospital last week with anemia and weakness. He has a history of spinal stenosis with generalized weakness that is making it more difficult for him to ambulate. He states that he has not noticed any blood in his stool but when he was hospitalized at [facility] for the weakness from spinal stenosis they did note that he had blood in his stool. He states that he is slowly losing the ability to walk. He has no family history of colon cancer. He had never had a colonoscopy previously. EGD an colonoscopy were scheduled and they were performed yesterday. Colonoscopy showed multiple polyps, however there was a large mass in the ascending colon that appeared consistent with adenocarcinoma. He has not had any imaging studies. He lives independently but is currently being evaluated for rehab. He lives with his . [facility] Medical History Diabetes mellitus type 2 in obese ?E11.69 - Type 2 diabetes mellitus with other specified complication (ICD-10) ?E66.9 - Obesity, unspecified (ICD-10) Syncope ?R55 - Syncope and collapse (ICD-10) Benign prostatic hyperplasia ?N40.0 - Benign prostatic hyperplasia without lower urinary tract symptoms (ICD-10) Primary hypothyroidism ?E03.9 - Hypothyroidism, unspecified (ICD-10) Prostate nodule ?N40.2 - Nodular prostate without lower urinary tract symptoms (ICD-10) Hyperlipidemia ?E78.5 - Hyperlipidemia, unspecified (ICD-10) Chronic kidney disease ?N18.9 - Chronic kidney disease, unspecified (ICD-10) Essential hypertension ?I10 - Essential (primary) hypertension (ICD-10) Uric acid renal calculus ?N20.0 - Calculus of kidney (ICD-10) Nephrolithiasis ?N20.0 - Calculus of kidney (ICD-10) History of urinary tract infection ?Z87.440 - Personal history of urinary (tract) infections (ICD-10) Recurrent major depressive disorder ?F33.9 - Major depressive disorder, recurrent, unspecified (ICD-10) Chronic low back pain ?M54.50 - Low back pain, unspecified (ICD-10) ?G89.29 - Other chronic pain (ICD-10) Declining functional status ?R53.81 - Other malaise (ICD-10) Iron deficiency anemia ?D50.9 - Iron deficiency anemia, unspecified (ICD-10) Chronic idiopathic constipation ?K59.04 - Chronic idiopathic constipation (ICD-10) Atrial paroxysmal tachycardia ?I47.1 - Supraventricular tachycardia (ICD-10) Morbid obesity with BMI of 50.0-59.9, adult ?E66.01 - Morbid (severe) obesity due to excess calories (ICD-10) ?Z68.43 - Body mass index [BMI] 50.0-59.9, adult (ICD-10) Physical debility ?R53.81 - Other malaise (ICD-10) Diabetic peripheral neuropathy associated with type 2 diabetes mellitus ?E11.42 - Type 2 diabetes mellitus with diabetic polyneuropathy (ICD-10) Spinal stenosis, lumbar region without neurogenic claudication ?M48.061 - Spinal stenosis, lumbar region without neurogenic claudication (ICD-10) Lumbar radiculopathy, chronic ?M54.16 - Radiculopathy, lumbar region (ICD-10) BRITTNEY (obstructive sleep apnea) ?G47.33 - Obstructive sleep apnea (adult) (pediatric) (ICD-10) Surgical History History of tonsillectomy ?Z90.89 - Acquired absence of other organs (ICD-10) History of arthroscopy of both knees ?Z98.890 - Other specified postprocedural states (ICD-10) History of lumbar laminectomy ?Z98.890 - Other specified postprocedural states (ICD-10) Social History Narrative: He lives with his . Most of the last 3 months he has been hospitalized or in rehab for his back pain and leg weakness. Code status is full. 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 He does not smoke. He does not drink alcohol. He does not use recreational drugs. What is your current living situation?: I presently have a place to live Problems where you live: no known problems Problems where you live details: NA In the past 12 months, utilities in danger of being shut off: no In past 12 months, lack of transportation kept you from medical appts, meetings, work, or getting things needed for daily living: no In the past 12 mos, have been you worried that your food would run out before you had money to buy more?: never true In the past 12 mos, the food you bought just didn't last and you didn't have money to buy more?: never true Highest level of school completed/degree received: Bachelor's degree Smoking Status: Former smoker Do you use any of these nicotine containing products: None Second hand tobacco smoke exposure: Yes How often do you have a drink containing alcohol: monthly or less Alcohol type: beer How often do you have six or more drinks on one occasion: Never AUDIT-C Alcohol total score: 1 Non-prescribed substance use: denies use Caffeine: No How often does anyone, including family, friends and others, physically hurt you: never How often does anyone, including family, friends and others, insult or talk down to you: never How often does anyone, including family, friends and others, threaten you with harm: never How often does anyone, including family, friends and others, scream or curse at you: never service: No Meds Home Medications and Allergies Home Medications Medication Instructions Recorded Confirmed Type allopurinol 300 mg tablet 300 mg PO DAILY 10/03/22 01/26/23 History insulin glargine 100 unit/mL (3 38 unit subcut HS 10/03/22 01/26/23 History mL) subcutaneous pen (Lantus Solostar U-100 Insulin) levothyroxine 100 mcg tablet 100 mcg PO DAILY 10/03/22 01/26/23 History levothyroxine 125 mcg tablet 125 mcg PO DAILY 10/03/22 01/26/23 History magnesium oxide 400 mg (241.3 mg 400 mg PO DAILY 10/03/22 01/26/23 History magnesium) tablet metformin 500 mg tablet,extended 500 mg PO DAILY 10/03/22 01/26/23 History release 24 hr pantoprazole 40 mg tablet,delayed 40 mg PO QPM 10/03/22 01/26/23 History release potassium chloride 20 mEq 60 meq PO DAILY 10/03/22 01/26/23 History tablet,extended release(part/cryst) (Klor-Con M) pravastatin 80 mg tablet 80 mg PO HS 10/03/22 01/26/23 History spironolactone 50 mg tablet 50 mg PO DAILY 10/03/22 01/26/23 History tamsulosin 0.4 mg capsule 0.8 mg PO HS 10/03/22 01/26/23 History acetaminophen 500 mg tablet 1,000 mg PO TID 11/28/22 01/26/23 History (Tylenol Extra Strength) duloxetine 30 mg capsule,delayed 30 mg PO BID 11/28/22 01/26/23 History release gabapentin 600 mg tablet 900 mg PO 3XD 11/28/22 01/26/23 History nystatin 100,000 unit/gram topical 1 applic topical BID 11/28/22 01/26/23 History powder sodium bicarbonate 650 mg tablet 1,950 mg PO TID 11/28/22 01/26/23 History glipizide 5 mg tablet 2.5 - 5 mg PO BIDWMEAL 01/01/23 01/26/23 History glucosamine-chondroitin 500 mg-400 1 tab PO TID 01/01/23 01/26/23 History mg tablet (Cosamin DS) hydrochlorothiazide 12.5 mg tablet 6.25 mg PO DAILY 01/01/23 01/26/23 History methocarbamol 750 mg tablet 750 mg PO Q6H PRN 01/01/23 01/26/23 History pregabalin 100 mg capsule 100 mg PO TID 01/01/23 01/26/23 History sennosides 8.6 mg tablet (senna) 8.6 - 17.2 mg PO BID PRN 01/01/23 01/26/23 History Allergies Allergy/AdvReac Type Severity Reaction Status Date / Time terazosin Allergy Severe Shortness Verified 12/31/22 21:08 of Breath amoxicillin [From Augmentin] Allergy Mild Diarrhea Verified 12/31/22 21:08 atenolol Allergy Mild Verified 12/31/22 21:08 clavulanic acid Allergy Mild Diarrhea Verified 12/31/22 21:08 [From Augmentin] lisinopril Allergy Unknown Verified 12/31/22 21:08 meperidine [From Demerol] Allergy Unknown Verified 12/31/22 21:08 trospium Allergy Unknown Verified 12/31/22 21:08 Exam Narrative: Exam Narrative: General appearance: Alert, cooperative, and in no distress Eyes: PERRLA, eye lids clear, and sclera white HENT Head: Normocephalic Pulmonary: Breathing nonlabored on room air Cardiovascular Heart: Regular rate Gastrointestinal: Abdomen: Protuberant. Const: Vital Signs, click to edit/add: Vital Signs - 24 hr 01/31/23 11:00 01/31/23 15:00 01/31/23 15:00 Temperature 98.6 F 98.7 F Pulse Rate [Left P ulse Oximeter] 83 78 Respiratory Rate 20 18 18 Blood Pressure [Le ft Arm] 166/68 H 160/78 H Blood Pressure [le ft forearm] Pulse Oximetry 90 97 97 Oxygen Delivery Me thod Room Air Room Air Room Air 01/31/23 15:00 01/31/23 19:00 02/01/23 00:25 Temperature 97.9 F Pulse Rate [Left P ulse Oximeter] 78 81 Respiratory Rate 18 18 18 Blood Pressure [Le ft Arm] 178/75 H Blood Pressure [le ft forearm] Pulse Oximetry 97 Oxygen Delivery Me thod 02/01/23 00:25 02/01/23 00:25 02/01/23 04:16 Temperature 98.3 F Pulse Rate [Left P ulse Oximeter] 81 79 Respiratory Rate 18 18 18 Blood Pressure [Le ft Arm] 159/69 H 156/70 H Blood Pressure [le ft forearm] Pulse Oximetry 94 94 93 Oxygen Delivery Me thod CPAP Room Air CPAP 02/01/23 07:00 02/01/23 07:00 Temperature Pulse Rate [Left P ulse Oximeter] 83 Respiratory Rate 18 20 Blood Pressure [Le ft Arm] Blood Pressure [le ft forearm] 168/69 H Pulse Oximetry 90 90 Oxygen Delivery Me thod Room Air Room Air Results Labs Labs: All other labs normal. Assessment and Plan Assessment and plan (1) Colonic mass: Status: Acute (2) Diabetes mellitus type 2 in obese: Problem comment: Fair control while on prep. Resume usual diet after colonoscopy and resume usual diabetic medications. Status: Chronic (3) BRITTNEY (obstructive sleep apnea): Problem comment: home CPAP Status: Chronic (4) Symptomatic anemia: Problem comment: - 01/25/2023: Hg 7.2 - Transfuse 2 units PRBC 01/25 - 01/26/2023: recheck Hg 8.3 - 01/31 hemoglobin remaining stable at 8.4 Status: Acute (5) Physical debility: Problem comment: Generalized weakness in addition to spinal stenosis, patient notes upper extremity weakness possibly secondary to anemia. Continue therapies. Status: Acute (6) Morbid obesity with BMI of 50.0-59.9, adult: Problem comment: Discussion on admission the value of weight loss to improve his chronic back pain, disability and other chronic medical problems. He is open to a calorie restricted diet while he is here in the hospital. Status: Acute Plan The patient is a 72-year-old male with multiple medical comorbidities and likely ascending colon cancer. He also had multiple other polyps which were removed including a large polyp in his rectum. Awaiting final pathology report. -will likely need surgical resection even a polyp benign. Would recommend he be referred to Colorectal surgery upon discharge for consideration of surgery given his comorbidities make him very high risk; this should be done at a tertiary center. -in the meantime, he should be pre have bili tape did. I recommended iron supplement to help with his anemia. -staging CT chest abdomen pelvis with contrast as well as CEA should be ordered to rule out metastatic disease. If he does have metastasis then he may need biopsy versus referral to Oncology prior to Colorectal surgery. -recommend nutrition consult who can help with nutrition optimization/protein intake prior to any possible surgery. -also recommend continued therapy with PT OT.
--- NOTE | 2023-02-01 11:50 | CRLHL7_ITS ---
For Patients: As a result of the 21st Century Cures Act, medical imaging exams and procedure reports are released immediately into your electronic medical record. You may view this report before your referring provider. If you have questions, please contact your health care provider. INDICATION: Malignant colon mass, staging exam COMPARISON: CT abdomen pelvis 04/15/2021, chest radiograph 03/28/2023 TECHNIQUE: CT chest, abdomen, and pelvis with contrast. Multiplanar axial, coronal, and sagittal reformats are included. MIP images to improve detection of pulmonary nodules are included. Intravenous contrast: 150 ml Isovue 370 Oral contrast was not administered. FINDINGS: CHEST Lungs: Inspiratory phase imaging. There is a 2 mm micro nodule in the right upper lobe (series 3, image 34). Tiny benign fissural nodule along the right major fissure. 3 mm micro nodule left upper lobe (series 3, image 60). No consolidations. Normal appearance of the pulmonary interstitium. Pleura: Trace right and small left pleural effusions. No pneumothorax. Airway: Normal tracheobronchial tree. Lymph nodes: No thoracic adenopathy. Mediastinum: No pneumomediastinum. Heart and great vessels: No pericardial effusion. Normal cardiac chamber size. Few atherosclerotic plaques. No thoracic aortic aneurysm. Chest wall: Normal. No masses. ABDOMEN AND PELVIS Liver: Normal. No masses. Normal vasculature. Gallbladder and biliary tree: Cholelithiasis. No gallbladder inflammation. No biliary duct dilation. Pancreas: Marked fatty atrophy of the pancreatic body and tail. There are few coarse calcifications in the uncinate process. No pancreatic mass or pancreatic duct dilatation.. Spleen: Normal. Normal size. Adrenal glands: Normal. No nodules. Kidneys and bladder: Normal renal position. Generalized is right renal atrophy, severe at the upper pole. Mild left renal atrophy and scarring. Few small left renal cysts. No solid renal mass. No calculi. No urinary tract dilation. The urinary bladder is normal. GI: Surgical clips in the sigmoid colon. No dilated segments. No abnormal bowel wall thickening or hyperenhancement. Small stool burden. The appendix is normal. Small fat containing umbilical hernia. Vessels: Aorta and major branches, including the mesenteric vessels: Patent. Normal caliber. No atherosclerotic plaques. IVC and tributaries: Normal. Mesenteric and portal veins: Normal. Peritoneum: No free fluid. Lymph nodes: Enlarged right external iliac chain lymph node measures 2.7 x 2.4 cm on series 7, image 143. Pelvis: Physiologic appearance of the pelvic organs. BONES: No fractures. No focal bone lesions. Advanced lumbar degenerative change.. IMPRESSION: 1. Surgical clips sigmoid colon. 2. Nonspecific enlarged right external iliac lymph node which is unchanged since 2020. 3. Two pulmonary micro nodules with low suspicion for malignancy/metastasis. 4. Trace right and small left pleural effusions of unclear etiology. Please note that all CT scans at this facility use dose modulation, iterative reconstruction, and/or weight-based dosing when appropriate to reduce radiation dose to as low as reasonably achievable. Dictated by Henny Bright MD @ 02/02/2023 9:33:00 AM (Electronically Signed)
--- NOTE | 2023-02-01 11:54 | PC.SOCIAL ---
Discharge plan: Received call back from [facility] acute rehab network coordinator, Leigh, stating she has reviewed his information and has not seen documentation of a reason for pt to be admitted to acute care rehab. Weakness without a specific diagnosis as the cause of weakness is not criteria for an acute care rehab admission. Leigh states that based on the colonoscopy findings from yesterday, there would need ot be a complete workup and cancer plan in place prior to pt being able to be evaluated again for admission to acute care rehab. Leigh recommended pt would be appropriate for long term level rehab. duralumin metalworker to follow up as needed.
--- NOTE | 2023-02-01 12:52 | PC.SOCIAL ---
Discharge planning: Called pt's regarding d/c plan. Informed pt is not eligible for acute care rehab. [place] [facility] [place] rehab with the plan of him returning home with her after rehab. Per , she is pleased that patient agrees with this plan. first requested placement in [place]. However, social science manager shared with that there are no nursing homes in [place] able to accommodate pt's weight. states she has a daughter in [place] and a daughter in [facility] and requested social science manager look for [place] near them. requested social science manager contact [facility] in [facility] and the [facility] in [place], [place]. youth support worker reached out to [facility] about their [place] [facility] [place] option and was informed pt does not meet the criteria for their facility and there are no beds available. [phone] and left message for faculty support coordinator requesting call back. youth support worker to follow up as needed.
[2023-02-01 12:55] LABS: Hemoglobin* 8.4 gm/dL (13.5-17.5)
[2023-02-01] MEDS: NYSTATIN POWDER 1 APPLIC TOPICAL ×2 (15:22→21:17)
--- NOTE | 2023-02-01 16:20 | P.IMPN_ITS ---
Progress Note: A&P Assessment and plan (1) Symptomatic anemia: Problem details: - 01/25/2023: Hg 7.2 Transfused 2 units PRBC - 02/01 hemoglobin remaining stable at 8.4 Status: Acute (2) Heme positive stool: Problem details: - secondary to probably malignant colonic mass. As below. Status: Acute (3) Colonic mass: Problem details: - colonoscopy shows large mass, likely malignant, near the ileocecal valve. Pathology pending. - 02/[address] Longo's recommendations. I have ordered CT chest/ab d/pelvis for staging. Will need to see colorectal surgeon from [place] as an outpatient. I have also started him on oral iron in ordered Nutrition to see him for preop nutrition optimization he will also need preop rehab and beer seeking a detention facility. Status: Acute (4) Spinal stenosis, lumbar region without neurogenic claudication: Problem details: MRI and clinical evaluation at [facility] in October and [place] in November showed significant deficits which were not felt to be surgical. Marked clinical improvement with rehab with abrupt onset of weakness today. Attempted to transfer to [facility]. They are close to admissions. Continue medical management/conservative management. Outpatient follow-up with [facility] in the 1st week of January. PT/OT evaluated him here. Recommend SNF, patient and agreeable. Status: Acute (5) Lumbar radiculopathy, chronic: Problem details: Chronic right hip pain and weakness likely due to this. Multilevel lumbar radiculopathy. Clinically appears to be more of a problem with spinal stenosis causing weakness Status: Acute (6) Physical debility: Problem details: Generalized weakness in addition to spinal stenosis, patient notes upper extremity weakness possibly secondary to anemia. Continue therapies. Status: Acute (7) Morbid obesity with BMI of 50.0-59.9, adult: Problem details: Discussion on admission the value of weight loss to improve his chronic back pain, disability and other chronic medical problems. He is open to a calorie restricted diet while he is here in the hospital. Status: Acute (8) BRITTNEY (obstructive sleep apnea): Problem details: home CPAP Status: Chronic (9) Diabetes mellitus type 2 in obese: Problem details: Adequate control. Continue usual DM medications. Status: Chronic (10) Diabetic peripheral neuropathy associated with type 2 diabetes mellitus: Status: Acute Plan Due to recurrent weakness and knees giving out, patient is not safe to return home and detention facility for rehab is recommended. Seeking detention facility for rehab. At present there is no safe discharge plan. Time Spent With Patient Total time spent: Today I spent 40 minutes rounding on the patient. Greater than 50% included discussing the diagnosis and plan with the patient and his , discussion with Dr. Longo, discussing care with the team, reviewing data, updating and managing the care plan. Subjective Time Seen by Provider: 08:09 Date Seen: 02/01/23 Interval history: I saw Martir this morning and again later in the morning at which time he got his on the phone and we all spoke together. He complains of back pain that radiates down his right leg, which is just slightly worse than usual. He notes some anxiety from the recent diagnosis of cancer. Dr. Longo from general surgery saw him this morning. We discussed her recommendations for staging imaging and to see a colorectal surgeon as well as to do preop rehab. Exam Narrative: Exam Narrative: General: No acute distress. Awake, alert, oriented. No pallor. No jaundice. Morbidly obese. Oropharynx: Clear. Mucous membranes moist. Cardiovascular: Regular rate and rhythm. No murmurs, gallops, or rubs. Respiratory: Clear to auscultation bilaterally. No wheezes or crackles. Abdomen: Bowel sounds present. Soft, nondistended, nontender. Const: Vital Signs, click to edit/add: Vital Signs - 24 hr 01/31/23 19:00 02/01/23 00:25 02/01/23 00:25 Temperature 97.9 F Pulse Rate [Left P ulse Oximeter] 81 Respiratory Rate 18 18 18 Blood Pressure [Le ft Arm] 178/75 H Blood Pressure [le ft forearm] Blood Pressure [ri ght forearm] Pulse Oximetry 97 94 Oxygen Delivery Me thod CPAP 02/01/23 00:25 02/01/23 04:16 02/01/23 07:00 Temperature 98.3 F Pulse Rate [Left P ulse Oximeter] 81 79 Respiratory Rate 18 18 18 Blood Pressure [Le ft Arm] 159/69 H 156/70 H Blood Pressure [le ft forearm] Blood Pressure [ri ght forearm] Pulse Oximetry 94 93 90 Oxygen Delivery Me thod Room Air CPAP Room Air 02/01/23 07:00 02/01/23 07:00 02/01/23 10:30 Temperature Pulse Rate [Left P ulse Oximeter] 83 83 81 Respiratory Rate 20 20 Blood Pressure [Le ft Arm] Blood Pressure [le ft forearm] 168/69 H Blood Pressure [ri ght forearm] 145/79 H Pulse Oximetry 90 97 Oxygen Delivery Me thod Room Air Room Air 02/01/23 11:00 02/01/23 15:00 02/01/23 15:00 Temperature Pulse Rate [Left P ulse Oximeter] 88 85 Respiratory Rate 18 20 20 Blood Pressure [Le ft Arm] Blood Pressure [le ft forearm] 157/74 H Blood Pressure [ri ght forearm] Pulse Oximetry 91 89 Oxygen Delivery Me thod Room Air Room Air 02/01/23 15:00 Temperature 98.7 F Pulse Rate [Left P ulse Oximeter] 85 Respiratory Rate 20 Blood Pressure [Le ft Arm] Blood Pressure [le ft forearm] 168/77 H Blood Pressure [ri ght forearm] Pulse Oximetry 89 Oxygen Delivery Me thod Room Air Labs Labs: Laboratory Results - last 24 hr 02/01/23 12:46 Hgb 8.4 L
[2023-02-01] MEDS: SODIUM CHLORIDE 0.9 % (FLUSH) 10 ML SYRINGE 5 ML IVF ×2 (18:35→21:18)
[2023-02-01] MEDS: OMEPRAZOLE 20 MG CAPSULE DR 40 MG PO (18:59)
--- NOTE | 2023-02-01 19:26 | PC.NURSE ---
Nursing Care Hours: [id number] Pt this shift calm and cooperative with cares, alert and oriented. Pt was on toilet around 1030 and c/o feeling dizzy and lightheaded, face pale. VSS with slight elevated BP. 2 assist into wheelchair and assisted into bed. VSS rechecked once pt was able to catch breath and relax, VSS. While in bed, pt stated he felt SOB while resting in bed in morning. Masonry Installer talked to pt about receiving heavy news the day before and possibly experiencing episodes of anxiety. Discussed with patient using his support group and reaching out and talking about whatever is on his mind. Pt called a family member when blog writer walked out of the room. Insulin given per sliding scale. Nystatin applied to effected areas. Later in day blog writer noticed a bright red area at the most left lateral end of stomach fold, reported to NOC nurse. Eating and drinking sufficiently. Chronic low back pain treated with scheduled meds.
[2023-02-01] MEDS: TAMSULOSIN HCL 0.4 MG CAPSULE 0.8 MG PO (21:12)
[2023-02-01] MEDS: PRAVASTATIN SODIUM 20 MG TABLET 80 MG PO (21:14)
--- NOTE | 2023-02-01 22:29 | PC.NURSE ---
End of shift report [id number]: Patient alert and oriented x 4. Pain to low back reported, patient currently tolerating without need for medication. Ambulates with SBA with gait belt and 4 wheeled walker. Incontinent of large loose stool, assisted with sid care and depend applied. Bisacodyl held due to loose stools. Under pannus and groin cleansed and nystatin applied, left lateral hip has a area that is excoriated and tender to the touch, cleansed and powder applied.
[2023-02-02 03:50] VITALS: BP 160/83; PULSE 74; RESP 18; TEMP 36.7; O2SAT 95
[2023-02-02] MEDS: dilTIAZem 30 MG TABLET PO (03:53)
[2023-02-02] MEDS: LEVOTHYROXINE 125 MCG TABLET PO (06:33)
[2023-02-02] MEDS: LEVOTHYROXINE 100 MCG TABLET PO (06:33)
--- NOTE | 2023-02-02 07:33 | PC.NURSE ---
Pt is alert and oriented x3. Afebrile. Pt reports 2/10 dull and achy pain in lower back and right leg, pt reports tolerating pain. Pt had x2 large loose stools overnight, pt requested medication to slow bowel movements, MD?and next nurse updated. Pt is up A1 with walker. Pt denies SOB, chest pain and N/V. Pt slept throughout most of night. Pt wore CPAP throughout night.?
[2023-02-02 08:00] VITALS: BP 161/74; PULSE 75; RESP 18; TEMP 36.7; O2SAT 93
[2023-02-02] MEDS: DULOXETINE 30 MG CAPSULE DR PO ×2 (09:31→20:23)
[2023-02-02] MEDS: PREGABALIN 100 MG CAPSULE PO ×3 (09:32→20:24)
[2023-02-02] MEDS: dilTIAZem 240 MG CAP (CD) PO ×2 (09:33→20:23)
[2023-02-02] MEDS: FERROUS SULFATE 325 MG TABLET PO (09:34)
[2023-02-02] MEDS: MAGNESIUM OXIDE 400 MG TABLET PO (09:34)
[2023-02-02] MEDS: allopurinoL 300 MG TABLET PO (09:34)
[2023-02-02] MEDS: SPIRONOLACTONE 25 MG TABLET 50 MG PO (09:34)
[2023-02-02] MEDS: hydroCHLOROthiazide 25 MG TABLET 6.25 MG PO (09:34)
[2023-02-02] MEDS: METFORMIN ER 500 MG PO (09:34)
[2023-02-02] MEDS: ACETAMINOPHEN 500 MG TABLET 1000 MG PO ×3 (09:35→20:24)
[2023-02-02] MEDS: glipiZIDE 5 MG TABLET PO ×2 (09:35→17:12)
[2023-02-02] MEDS: GABAPENTIN 600 MG TABLET 900 MG PO ×3 (09:35→20:24)
[2023-02-02] MEDS: NYSTATIN POWDER 1 APPLIC TOPICAL ×2 (09:36→21:15)
[2023-02-02] MEDS: SODIUM BICARBONATE 650 MG TABLET 1950 MG PO ×3 (09:36→20:25)
[2023-02-02] MEDS: SODIUM CHLORIDE 0.9 % (FLUSH) 10 ML SYRINGE 5 ML IVF ×2 (09:36→20:36)
--- NOTE | 2023-02-02 10:19 | PM.IMPN1 ---
Progress Note: A&P Assessment and plan (1) Symptomatic anemia: Problem details: - 01/25/2023: Hg 7.2 Transfused 2 units PRBC - 02/01 hemoglobin remaining stable at 8.4 Status: Chronic (2) Heme positive stool: Problem details: - secondary to probably malignant colonic mass. As below. Status: Acute (3) Colonic mass: Problem details: - colonoscopy shows large mass, likely malignant, near the ileocecal valve. Pathology pending. - 02/[address] Longo's recommendations. I have ordered CT chest/abd/pelvis for staging. Will need to see colorectal surgeon from [place] as an outpatient. I have also started him on oral iron in ordered Nutrition to see him for preop nutrition optimization he will also need preop rehab and we are seeking a [place]. - 02/02 CT chest/abd/pelvis results above. Low concern for metastases. Status: Acute (4) Spinal stenosis, lumbar region without neurogenic claudication: Problem details: MRI and clinical evaluation at [place] in October and [place] in November showed significant deficits which were not felt to be surgical. Marked clinical improvement with rehab with abrupt onset of weakness today. Attempted to transfer to [place]. They are close to admissions. Continue medical management/conservative management. Outpatient follow-up with [place] in the 1st week of January. PT/OT evaluated him here. Recommend SNF, patient and agreeable. Status: Acute (5) Lumbar radiculopathy, chronic: Problem details: Chronic right hip pain and weakness likely due to this. Multilevel lumbar radiculopathy. Clinically appears to be more of a problem with spinal stenosis causing weakness. Status: Acute (6) Physical debility: Problem details: Generalized weakness in addition to spinal stenosis, patient notes upper extremity weakness possibly secondary to anemia. Continue therapies. Status: Acute (7) Morbid obesity with BMI of 50.0-59.9, adult: Problem details: Discussion on admission the value of weight loss to improve his chronic back pain, disability and other chronic medical problems. He is open to a calorie restricted diet while he is here in the hospital. Nutrition consulted to help with preop diet/cancer diet. Status: Acute (8) BRITTNEY (obstructive sleep apnea): Problem details: home CPAP Status: Chronic (9) Diabetes mellitus type 2 in obese: Problem details: Adequate control. Continue usual DM medications. Status: Chronic (10) Diabetic peripheral neuropathy associated with type 2 diabetes mellitus: Status: Acute Plan Due to recurrent weakness and knees giving out, patient is not safe to return home and [facility] is [facility]. Seeking [facility]. At present there is no safe discharge plan. Subjective Time Seen by Provider: 10:00 Date Seen: 02/02/23 Exam Const: Vital Signs, click to edit/add: Vital Signs - 24 hr 02/01/23 10:30 02/01/23 11:00 02/01/23 15:00 Temperature Pulse Rate [Left P ulse Oximeter] 81 88 85 Respiratory Rate 20 18 20 Blood Pressure [le ft forearm] 157/74 H Blood Pressure [ri ght forearm] 145/79 H Pulse Oximetry 97 91 Oxygen Delivery Me thod Room Air Room Air 02/01/23 15:00 02/01/23 15:00 02/01/23 19:00 Temperature 98.7 F 98.0 F Pulse Rate [Left P ulse Oximeter] 85 83 Respiratory Rate 20 20 15 Blood Pressure [le ft forearm] 168/77 H 168/74 H Blood Pressure [ri ght forearm] Pulse Oximetry 89 89 95 Oxygen Delivery Me thod Room Air Room Air Room Air 02/01/23 23:40 02/01/23 23:40 02/01/23 23:40 Temperature 98.2 F Pulse Rate [Left P ulse Oximeter] 78 78 Respiratory Rate 18 18 18 Blood Pressure [le ft forearm] 171/75 H Blood Pressure [ri ght forearm] Pulse Oximetry 95 95 Oxygen Delivery Me thod CPAP Room Air 02/02/23 03:50 Temperature 98.0 F Pulse Rate [Left P ulse Oximeter] 74 Respiratory Rate 18 Blood Pressure [le ft forearm] 160/83 H Blood Pressure [ri ght forearm] Pulse Oximetry 95 Oxygen Delivery Me thod Room Air Labs Labs: Laboratory Results - last 24 hr 02/01/23 12:46 Hgb 8.4 L Ordering Physician: Monique Johnson M.D. Date of Service: 02/01/23 Procedure(s): CT chest abdomen pelv w con Accession Number(s): [id number] cc: Monique Johnson M.D.; Grzegorz Wiggins M.D.~ For Patients: As a result of the Century Cures Act, medical imaging exams and procedure reports are released immediately into your electronic medical record. You may view this report before your referring provider. If you have questions, please contact your health care provider. INDICATION: Malignant colon mass, staging exam COMPARISON: CT abdomen pelvis 04/15/2021, chest radiograph 03/28/2023 TECHNIQUE: CT chest, abdomen, and pelvis with contrast. Multiplanar axial, coronal, and sagittal reformats are included. MIP images to improve detection of pulmonary nodules are included. Intravenous contrast: 150 ml Isovue 370 Oral contrast was not administered. FINDINGS: CHEST Lungs: Inspiratory phase imaging. There is a 2 mm micro nodule in the right upper lobe (series 3, image 34). Tiny benign fissural nodule along the right major fissure. 3 mm micro nodule left upper lobe (series 3, image 60). No consolidations. Normal appearance of the pulmonary interstitium. Pleura: Trace right and small left pleural effusions. No pneumothorax. Airway: Normal tracheobronchial tree. Lymph nodes: No thoracic adenopathy. Mediastinum: No pneumomediastinum. Heart and great vessels: No pericardial effusion. Normal cardiac chamber size. Few atherosclerotic plaques. No thoracic aortic aneurysm. Chest wall: Normal. No masses. ABDOMEN AND PELVIS Liver: Normal. No masses. Normal vasculature. Gallbladder and biliary tree: Cholelithiasis. No gallbladder inflammation. No biliary duct dilation. Pancreas: Marked fatty atrophy of the pancreatic body and tail. There are few coarse calcifications in the uncinate process. No pancreatic mass or pancreatic duct dilatation.. Spleen: Normal. Normal size. Adrenal glands: Normal. No nodules. Kidneys and bladder: Normal renal position. Generalized is right renal atrophy, severe at the upper pole. Mild left renal atrophy and scarring. Few small left renal cysts. No solid renal mass. No calculi. No urinary tract dilation. The urinary bladder is normal. GI: Surgical clips in the sigmoid colon. No dilated segments. No abnormal bowel wall thickening or hyperenhancement. Small stool burden. The appendix is normal. Small fat containing umbilical hernia. Vessels: Aorta and major branches, including the mesenteric vessels: Patent. Normal caliber. No atherosclerotic plaques. IVC and tributaries: Normal. Mesenteric and portal veins: Normal. Peritoneum: No free fluid. Lymph nodes: Enlarged right external iliac chain lymph node measures 2.7 x 2.4 cm on series 7, image 143. Pelvis: Physiologic appearance of the pelvic organs. BONES: No fractures. No focal bone lesions. Advanced lumbar degenerative change.. IMPRESSION: 1. Surgical clips sigmoid colon. 2. Nonspecific enlarged right external iliac lymph node which is unchanged since 2020. 3. Two pulmonary micro nodules with low suspicion for malignancy/metastasis. 4. Trace right and small left pleural effusions of unclear etiology. Please note that all CT scans at this facility use dose modulation, iterative reconstruction, and/or weight-based dosing when appropriate to reduce radiation dose to as low as reasonably achievable. Dictated by Henny Bright MD @ 02/02/2023 9:33:00 AM (Electronically Signed)
[2023-02-02 10:43] VITALS: BMI 45.8
[2023-02-02 11:00] VITALS: BP 140/69; PULSE 69; RESP 20; TEMP 36.6; O2SAT 96
[2023-02-02 12:40] LABS: Troponin I* < 0.01 ng/mL (0.01-0.04)
--- NOTE | 2023-02-02 14:41 | PC.NURSE ---
AFEBRILE. DENIED PAIN. UP WITH A1, WALKER AND GAIT BELT TO BATHROOM AND RECLINER. DENIED PAIN. PATIENT HAD EPISODE OF FEELING LIGHTHEADED AT LUNCH TIME. MD UPDATED AND EKG COMPLETED AND TROPONIN LEVEL DRAWN. TOLERATING REGULAR DIET.
[2023-02-02 15:35] VITALS: BP 146/66; PULSE 74; RESP 18; TEMP 36.6; O2SAT 95
[2023-02-02] MEDS: OMEPRAZOLE 20 MG CAPSULE DR 40 MG PO (17:12)
--- NOTE | 2023-02-02 17:49 | PC.SOCIAL ---
Discharge planning: At request of for rehab placement, called and faxed information to [facility] and [facility] and Abe[facility] fl[facility]. Awaiting call back with jean-pierre on admit.
[2023-02-02 19:05] VITALS: BP 148/77; PULSE 75; RESP 18; TEMP 37; O2SAT 96
[2023-02-02] MEDS: TAMSULOSIN HCL 0.4 MG CAPSULE 0.8 MG PO (20:23)
[2023-02-02] MEDS: PRAVASTATIN SODIUM 20 MG TABLET 80 MG PO (20:24)
[2023-02-02] MEDS: glipiZIDE 5 MG TABLET 2.5 MG PO (20:37)
--- NOTE | 2023-02-02 22:32 | PC.NURSE ---
Shift [id number]- Patient is up to chair this afternoon and evening. He is up with walker, gait belt and assist of 1 and tolerates well. Skin folds are cleansed and nystatin applied. Chronic pain appears to be controlled with scheduled medication. Appetite intact.
[2023-02-02 23:50] VITALS: BP 190/94; PULSE 77; PULSE 82; RESP 18; TEMP 36.9; O2SAT 95
[2023-02-03] VITALS (7 sets, daily range): BP systolic 148–167; BP diastolic 72–90; PULSE 71–86; RESP 18–20; TEMP 36.5–37; O2SAT 91–98
[2023-02-03] MEDS: dilTIAZem 30 MG TABLET PO (00:32)
[2023-02-03] MEDS: LEVOTHYROXINE 100 MCG TABLET PO (05:20)
[2023-02-03] MEDS: LEVOTHYROXINE 125 MCG TABLET PO (05:20)
--- NOTE | 2023-02-03 08:57 | P.IMPN_ITS ---
Progress Note: A&P Assessment and plan (1) Symptomatic anemia: Problem details: - 01/25 Hg 7.2 Transfused 2 units PRBC - 02/01 hemoglobin remaining stable at 8.4. Will recheck in the morning. - No longer symptomatic - in setting of newly diagnosed colon cancer Status: Chronic (2) Heme positive stool: Problem details: - secondary to probably malignant colonic mass. As below. Status: Acute (3) Colonic mass: Problem details: - colonoscopy shows large mass, likely malignant, near the ileocecal valve. Pathology pending. - 02/[address] Longo's recommendations. I have ordered CT chest/abd/pelvis for staging. Will need to see colorectal surgeon from [place] as an outpatient. I have also started him on oral iron in ordered Nutrition to see him for preop nutrition optimization he will also need preop rehab and we are seeking a [facility] facility. - 02/02 CT chest/abd/pelvis results above. Low concern for metastases. - 02/03 pathology report shows adenocarcinoma of the ascending colon and low- grade findings of the sigmoid colon. Dr. Pham spoke directly with the patient regarding these results. Status: Acute (4) Adenocarcinoma, colon: Problem details: - 02/03 as above - and patient requesting further workup and management at [facility]. I was able to arrange outpatient follow-up with Colorectal surgery ([phone]). They will be contacting patient with further information. - CT chest abdomen pelvis without evidence of Mets - CEA ordered Status: Acute (5) Spinal stenosis, lumbar region without neurogenic claudication: Problem details: - MRI and clinical evaluation at [place] in October and [place] in November showed significant deficits which were not felt to be surgical. Marked clinical improvement with rehab with abrupt onset of weakness today. Attempted to transfer to [place]. They are close to admissions. Continue medical management/conservative management. Outpatient follow-up with [place] in the 1st week of January. PT/OT evaluated him here. Recommend SNF, patient and agreeable. - 02/03 reports that patient is unable to be transported via private vehicle, typically requiring ambulance transportation Status: Acute (6) Lumbar radiculopathy, chronic: Problem details: - Chronic right hip pain and weakness likely due to this. Multilevel lumbar radiculopathy. Clinically appears to be more of a problem with spinal stenosis causing weakness. Status: Acute (7) Morbid obesity with BMI of 50.0-59.9, adult: Problem details: -Discussion on admission the value of weight loss to improve his chronic back pain, disability and other chronic medical problems. He is open to a calorie restricted diet while he is here in the hospital. Nutrition consulted to help with preop diet/cancer diet. Status: Acute (8) BRITTNEY (obstructive sleep apnea): Problem details: - continue home CPAP Status: Chronic (9) Diabetes mellitus type 2 in obese: Problem details: - with peripheral neuropathy - Adequate control. Continue usual DM medications. - glucose checks ACHS, insulin sliding scale Status: Chronic Plan 02/03: dietary services director assisting with placement, requesting closer to [facility] as patient will be followed by [place] colorectal surgery. dietary services director aware of transportation concerns as reports he is unable to physically get in and out of a car though should be able to sit in a wheelchair. With a new diagnosis of cancer, criminal justice social worker will work with rehab facilities in finding appropriate placement. Time Spent With Patient Total time spent: Total time spent caring for the patient today was 45 minutes. This includes time spent for the visit reviewing the chart, time spent during the visit, time spent after the visit and documentation and planning in coordination of care. Subjective Date Seen: 02/03/23 Interval history: Patient has no complaints this morning. Denies headache or dizziness. Denies chest pain or shortness of breath. Reports sleeping well last night with CPAP in place. Tolerating orals without nausea vomiting. With at bedside, reviewed pathology report after patient was able to discuss with Dr. Pham. CT chest abdomen pelvis without evidence of acute mets. Patient and prefer to seek further evaluation and management with [facility]. Exam Narrative: Exam Narrative: PHYSICAL EXAM General: Pleasant, conversant, NAD Cardiovascular: RRR, S1S2. Pulmonary: Mildly diminished without rhonchi, rales, expiratory wheezes. No dyspnea Abdominal: Soft, obese, nondistended, NTTP Neurological: Alert, answering questions appropriately, cranial nerves intact, no focal findings Extremities: No gross joint deformity or swelling. AROMI. Neurovascularly intact Skin: Warm, dry. Const: Vital Signs, click to edit/add: Vital Signs - 24 hr 02/02/23 11:00 02/02/23 15:35 02/02/23 15:35 Temperature 97.8 F 97.9 F Pulse Rate [Left P ulse Oximeter] 69 74 Respiratory Rate 20 18 Blood Pressure [le ft forearm] Blood Pressure [ri ght forearm] 140/69 H 146/66 H Pulse Oximetry 96 95 95 Oxygen Delivery Me thod Room Air Room Air Room Air 02/02/23 19:05 02/02/23 23:50 02/02/23 23:50 Temperature 98.6 F Pulse Rate [Left P ulse Oximeter] 75 77 Respiratory Rate 18 18 18 Blood Pressure [le ft forearm] Blood Pressure [ri ght forearm] 148/77 H Pulse Oximetry 96 95 Oxygen Delivery Pr thod Room Air Room Air 02/02/23 23:50 02/03/23 04:10 Temperature 98.4 F 98.6 F Pulse Rate [Left P ulse Oximeter] 82 77 Respiratory Rate 18 18 Blood Pressure [le ft forearm] 190/94 H 167/90 H Blood Pressure [ri ght forearm] Pulse Oximetry 95 97 Oxygen Delivery Pr thod Room Air Room Air Labs Labs: Laboratory Results - last 24 hr 02/02/23 11:55 Troponin I < 0.01 L
--- NOTE | 2023-02-03 09:12 | PC.NURSE ---
Pt is alert and oriented x3. Afebrile. Pt reports 3/10 dull and achy pain in lower back and right leg, pain medications offered pt reports tolerating pain. Pt is up A1 with walker. Pt denies SOB, chest pain and N/V. Pt slept throughout most of night. Pt wore CPAP throughout night.?Night uneventful.
[2023-02-03] MEDS: DULOXETINE 30 MG CAPSULE DR PO ×2 (09:41→21:41)
[2023-02-03] MEDS: hydroCHLOROthiazide 25 MG TABLET 6.25 MG PO (09:41)
[2023-02-03] MEDS: FERROUS SULFATE 325 MG TABLET PO (09:42)
[2023-02-03] MEDS: PREGABALIN 100 MG CAPSULE PO ×3 (09:42→21:39)
[2023-02-03] MEDS: METFORMIN ER 500 MG PO (09:42)
[2023-02-03] MEDS: ACETAMINOPHEN 500 MG TABLET 1000 MG PO ×3 (09:42→21:39)
[2023-02-03] MEDS: SPIRONOLACTONE 25 MG TABLET 50 MG PO (09:42)
[2023-02-03] MEDS: MAGNESIUM OXIDE 400 MG TABLET PO (09:42)
[2023-02-03] MEDS: NYSTATIN POWDER 1 APPLIC TOPICAL (09:43)
[2023-02-03] MEDS: SODIUM BICARBONATE 650 MG TABLET 1950 MG PO ×3 (09:43→21:45)
[2023-02-03] MEDS: GABAPENTIN 600 MG TABLET 900 MG PO ×3 (09:43→21:38)
[2023-02-03] MEDS: SODIUM CHLORIDE 0.9 % (FLUSH) 10 ML SYRINGE 5 ML IVF ×2 (09:43→21:37)
[2023-02-03] MEDS: dilTIAZem 240 MG CAP (CD) PO ×2 (09:44→21:39)
[2023-02-03] MEDS: allopurinoL 300 MG TABLET PO (09:51)
--- NOTE | 2023-02-03 13:25 | PC.SOCIAL ---
Addendum entered by LANEY Johnson 02/03/23 14:09: Discharge planning: Received communication back from [facility] and [facility] declining admission as they are unable to accommodate pt's weight. Addendum entered by LANEY Johnson 02/03/23 13:49: Contacted the following correction facilities in the [facility] regarding bed availability with the listed results: 1. [facility] - [phone] Left message and awaiting call back. 2. [facility] - Left message and awaiting call back. 3. [facility] - Left message and awaiting call back. 4. [facility] - unable to accept, pt weight above limit. 5. [facility] - [phone] Left message and awaiting call back. 6. [facility] - [phone] Left message and awaiting call back. 7. [facility] - [phone] Left message and awaiting call back. community center worker to follow up as needed Original Note: Discharge planning: Met with pt, and daughters (by phone) regarding discharge plan. Family is requesting retirement rehab placement in the [facility] as they are hoping to follow up at [facility]. Answered questions about nursing rehab placement, insurance coverage and cancer care during rehab. Pt does not want rehab placement if that plan would delay his cancer care. Pt requested social media editor locate available rehab bed and then he will decide if this is the right option for discharge. community center worker to follow up as needed.
[2023-02-03] MEDS: OMEPRAZOLE 20 MG CAPSULE DR 40 MG PO (17:36)
[2023-02-03] MEDS: glipiZIDE 5 MG TABLET 2.5 MG PO (17:37)
[2023-02-03] MEDS: PRAVASTATIN SODIUM 20 MG TABLET 80 MG PO (21:37)
[2023-02-03] MEDS: TAMSULOSIN HCL 0.4 MG CAPSULE 0.8 MG PO (21:38)
[2023-02-04 03:00] VITALS: BP 159/78; PULSE 88; RESP 22; TEMP 36.4; O2SAT 97
[2023-02-04] MEDS: LEVOTHYROXINE 125 MCG TABLET PO (05:50)
[2023-02-04] MEDS: LEVOTHYROXINE 100 MCG TABLET PO (05:50)
[2023-02-04 06:33] LABS: Chloride* 107 mmol/L (96-114); Hematocrit 28.7 % (37.0-53.0); Hemoglobin* 8.4 gm/dL (13.5-17.5); Mean Corpuscular HGB Conc 29 gm/dL (32-36); Mean Corpuscular Hemoglobin 22 pg (26-34); Mean Corpuscular Volume 74 fL (80-100); Platelet Count* 272 K/uL (140-440); Potassium* 3.9 mmol/L (3.6-5.1); Red Blood Count 3.86 m/uL (4.30-5.90); Slide Review Reflex No; Sodium* 137 mmol/L (135-149); White Blood Count* 8.33 K/uL (4.50-11.00)
[2023-02-04 06:36] LABS: Anion Gap 5 mEq/L (7-15); Blood Urea Nitrogen* 24 mg/dL (7-30); Carbon Dioxide* 25 mmol/L (20-32); Creatinine* 1.3 mg/dL (0.5-1.5); Est. Creatinine Clearance* 66.63; Estimated Glomerular Filt Rate 59 ml/min; Glucose* 166 mg/dL (60-115)
[2023-02-04] MEDS: ACETAMINOPHEN 500 MG TABLET 1000 MG PO ×2 (07:00→13:31)
--- NOTE | 2023-02-04 07:45 | PC.NURSE ---
Patient pleasant, alert and oriented. CPAP on. Was up to the bathroom x2 with assist of one, gait belt and walker. Requested his 0900 Tylenol at 0700 for right leg pain. Per charge nurse ok to give early ? day shift nurse updated. VSS.?
[2023-02-04] MEDS: FERROUS SULFATE 325 MG TABLET PO (08:02)
[2023-02-04 08:06] VITALS: BP 162/82; PULSE 78; RESP 16; TEMP 36.5; O2SAT 97
[2023-02-04 08:25] LABS: Albumin* 3.2 g/dL (3.3-5.0); Magnesium* 1.9 mg/dL (1.5-2.6); Phosphorus* 3.5 mg/dL (2.5-4.5)
[2023-02-04] MEDS: METFORMIN ER 500 MG PO (08:58)
[2023-02-04] MEDS: dilTIAZem 240 MG CAP (CD) PO (08:58)
[2023-02-04] MEDS: GABAPENTIN 600 MG TABLET 900 MG PO ×2 (08:58→13:31)
[2023-02-04] MEDS: DULOXETINE 30 MG CAPSULE DR PO (08:59)
[2023-02-04] MEDS: SPIRONOLACTONE 25 MG TABLET 50 MG PO (08:59)
[2023-02-04] MEDS: allopurinoL 300 MG TABLET PO (08:59)
[2023-02-04] MEDS: MAGNESIUM OXIDE 400 MG TABLET PO (09:01)
[2023-02-04] MEDS: PREGABALIN 100 MG CAPSULE PO ×2 (09:01→13:31)
[2023-02-04] MEDS: SODIUM BICARBONATE 650 MG TABLET 1950 MG PO ×2 (09:02→13:32)
[2023-02-04] MEDS: NYSTATIN POWDER 1 APPLIC TOPICAL (09:02)
[2023-02-04] MEDS: SODIUM CHLORIDE 0.9 % (FLUSH) 10 ML SYRINGE 5 ML IVF (09:03)
[2023-02-04] MEDS: hydroCHLOROthiazide 25 MG TABLET 6.25 MG PO (09:03)
[2023-02-04 11:15] VITALS: BP 171/71; PULSE 77; RESP 16; TEMP 36.6; O2SAT 98
--- NOTE | 2023-02-04 11:47 | P.IMPN_ITS ---
Progress Note: A&P Assessment and plan (1) Colonic mass: Problem details: - colonoscopy shows large mass, likely malignant, near the ileocecal valve. Pathology pending. - 02/[address] Longo's recommendations. I have ordered CT chest/abd/pelvis for staging. Will need to see colorectal surgeon from [place] as an outpatient. I have also started him on oral iron in ordered Nutrition to see him for preop nutrition optimization he will also need preop rehab and we are seeking a [facility] facility. - 02/02 CT chest/abd/pelvis results above. Low concern for metastases. - 02/03 pathology report shows adenocarcinoma of the ascending colon and low- grade findings of the sigmoid colon. Dr. Pham spoke directly with the patient regarding these results. - 02/04 patient awaiting follow-up with [facility] colorectal surgery service Status: Acute (2) Adenocarcinoma, colon: Problem details: - 02/03 as above - and patient requesting further workup and management at [facility]. I was able to arrange outpatient follow-up with Colorectal surgery ([phone]). They will be contacting patient with further information. - CT chest abdomen pelvis without evidence of Mets - CEA ordered - pending Status: Acute (3) Symptomatic anemia: Problem details: - 01/25 Hg 7.2 Transfused 2 units PRBC - 02/01 hemoglobin remaining stable at 8.4. Will recheck in the morning. - No longer symptomatic - in setting of newly diagnosed colon cancer Status: Chronic (4) Heme positive stool: Problem details: - secondary to probably malignant colonic mass. As below. Status: Acute (5) Spinal stenosis, lumbar region without neurogenic claudication: Problem details: - MRI and clinical evaluation at [place] in October and [place] in November showed significant deficits which were not felt to be surgical. Marked clinical improvement with rehab with abrupt onset of weakness today. Attempted to transfer to [place]. They are close to admissions. Continue medical management/conservative management. Outpatient follow-up with [place] in the week of January. PT/OT evaluated him here. Recommend SNF, patient and agreeable. - 02/03 reports that patient is unable to be transported via private vehicle, typically requiring ambulance transportation Status: Acute (6) Lumbar radiculopathy, chronic: Problem details: - Chronic right hip pain and weakness likely due to this. Multilevel lumbar radiculopathy. Clinically appears to be more of a problem with spinal stenosis causing weakness. Status: Acute (7) Morbid obesity with BMI of 50.0-59.9, adult: Problem details: -Discussion on admission the value of weight loss to improve his chronic back pain, disability and other chronic medical problems. He is open to a calorie restricted diet while he is here in the hospital. Nutrition consulted to help with preop diet/cancer diet. Status: Acute (8) BRITTNEY (obstructive sleep apnea): Problem details: - continue home CPAP Status: Chronic (9) Diabetes mellitus type 2 in obese: Problem details: - with peripheral neuropathy - Adequate control. Continue usual DM medications. - glucose checks ACHS, insulin sliding scale Status: Chronic (10) Hypocalcemia: Problem details: - 02/04 calcium noted to be down trending 8.0. Albumin 3.2. Corrected calcium 8.6. Mag 1.9, phosphorus 3.5, PTH ordered Status: Acute Plan 02/03: hr shared services consultant assisting with placement, requesting closer to [facility] as patient will be followed by [facility]. hr shared services consultant aware of transportation concerns as reports he is unable to physically get in and out of a car though should be able to sit in a wheelchair. With a new diagnosis of cancer, social work case manager will work with rehab facilities in finding appropriate placement. 02/04: Options to include private pay for assisted living, return to home with home health cares, PT/OT Time Spent With Patient Total time spent: Total time spent caring for the patient today was 45 minutes. This includes time spent for the visit reviewing the chart, time spent during the visit, time spent after the visit and documentation and planning in coordination of care. Subjective Date Seen: 02/04/23 Exam Const: Vital Signs, click to edit/add: Vital Signs - 24 hr 02/03/23 15:00 02/03/23 15:00 02/03/23 16:00 Temperature 98.4 F Pulse Rate [Left P ulse Oximeter] 75 Respiratory Rate 20 20 Blood Pressure [Ri ght Arm] Blood Pressure [le ft forearm] Blood Pressure [ri ght forearm] 159/72 H Pulse Oximetry 96 95 Oxygen Delivery Me thod Room Air Room Air 02/03/23 21:30 02/03/23 23:00 02/03/23 23:00 Temperature 98.0 F 97.7 F Pulse Rate [Left P ulse Oximeter] 77 86 86 Respiratory Rate 18 18 18 Blood Pressure [Ri ght Arm] Blood Pressure [le ft forearm] 150/75 H Blood Pressure [ri ght forearm] 163/77 H Pulse Oximetry 97 91 Oxygen Delivery Me thod Room Air CPAP 02/03/23 23:00 02/04/23 03:00 02/04/23 08:06 Temperature 97.5 F L 97.7 F Pulse Rate [Left P ulse Oximeter] 88 78 Respiratory Rate 22 16 Blood Pressure [Ri ght Arm] 162/82 H Blood Pressure [le ft forearm] 159/78 H Blood Pressure [ri ght forearm] Pulse Oximetry 91 97 97 Oxygen Delivery Me thod CPAP CPAP Room Air 02/04/23 08:06 02/04/23 08:06 02/04/23 11:15 Temperature 97.8 F Pulse Rate [Left P ulse Oximeter] 78 77 Respiratory Rate 16 16 16 Blood Pressure [Ri ght Arm] 171/71 H Blood Pressure [le ft forearm] Blood Pressure [ri ght forearm] Pulse Oximetry 97 98 Oxygen Delivery Me thod Room Air Room Air Labs Labs: Laboratory Results - last 24 hr 02/04/23 02/04/23 02/04/23 05:55 07:23 07:24 WBC 8.33 RBC 3.86 L Hgb 8.4 L Hct 28.7 L MCV 74 L MCH 22 L MCHC 29 L Plt Count 272 Sodium 137 Potassium 3.9 Chloride 107 Carbon Dioxide 25 Anion Gap 5 L BUN 24 Creatinine 1.3 Estimated Creat Clear 66.63 Estimated GFR 59 Glucose 166 H Calcium 8.0 L Phosphorus 3.5 Magnesium 1.9 Albumin 3.2 L PTH Intact Cancelled Lab Acknowledgement Test Added Test Added
--- NOTE | 2023-02-04 12:27 | PC.SOCIAL ---
Addendum entered by LANEY Johnson 02/04/23 15:41: At pt request, sent family assessment worker, PT, OT orders to [facility] ([phone]) requesting resumption of care. [facility] at [facility] confirmed they can start care tomorrow on Tuesday if pt is discharged home today. Pt is requesting transport home by non-emergency ambulance today and appears to meet criteria for medical necessity for ambulance transport. RN to arrange transportation. Original Note: Discharge plan: Pt and rare requesting group home placement for short term rehab. dairy farmworker contacted requested facilities about placement but consistently was told by admissions coordinators that pt would not be a candidate for admission to short term rehab under Medicare Coverage due to having a new cancer diagnosis and planning on treatment. Met with pt and (by phone) and updated them on these findings. Suggested pt may be able to be admitted to a high level assisted living facility which would be private pay. Pt and are not interested in this option. Also shared the Important Message from Medicare and information on the appeal process. Pt states he is not interested in appealing discharge. Pt and discussed options privately and then informed social worker delinquency prevention of his desire to be discharged home with the resumption of home care with [facility]. Per pt, he had RN, PT, OT and foreclosure home inspector care at home prior to hospitalization. Provided pt with information on foreclosure home inspector care agencies where additional assistance could be hired. Pt states they have already looked into this option and are interested in arranging this at home if needed. dairy farmworker to follow up with MD orders for home care.
--- NOTE | 2023-02-04 13:17 | P.DS_ITS ---
DS: Providers Provider Date Seen: 02/04/23 Date of admission: 01/31/23 09:16 Primary care physician: Grzegorz Wiggins MD Admitting Clinician: Saturnino Pedraza MD Consults: 01/25/23 23:48 Consult to Physical Therapy [CONS] Routine Comment: Reason(s) for PT Consult:: Evaluate and Treat Any Restrictions?:: No Restrictions Consult to General Manager [CONS] Routine Comment: coordinate ride home & future EGD & colonoscopy Reason for Consult:: Social Service Consult 01/25/23 23:51 Consult to Occupational Therapy [CONS] Routine Comment: Reason(s) for OT Consult:: Evaluate and Treat Any Restrictions?:: No Restrictions 01/26/23 14:40 Consult to Occupational Therapy [CONS] Routine Comment: Reason(s) for OT Consult:: Difficulty Managing ADLs Any Restrictions?:: No Restrictions Comment: poor hygiene only takes bed baths at home Consult to Physical Therapy [CONS] Routine Comment: Reason(s) for PT Consult:: Evaluate Ambulation Any Restrictions?:: No Restrictions 02/01/23 16:19 Consult to Nutrition [CONS] Routine Comment: Reason for consult:: Miscellaneous Comment: Cancer, preop nutrition Attending Physician on discharge: Prisca Ross [facility], PA-[facility] Date of Discharge: 02/04/23 DS: Diagnosis Discharge Diagnosis (1) Colonic mass: Status: Acute Problem details: - colonoscopy shows large mass, likely malignant, near the ileocecal valve. Pathology pending. - 02/[address] Longo's recommendations. I have ordered CT chest/abd/ pelvis for staging. Will need to see colorectal surgeon from [facility] as an outpatient. I have also started him on oral iron in ordered Nutrition to see him for preop nutrition optimization he will also need preop rehab and we are seeking a [facility] facility. - 02/02 CT chest/abd/pelvis results above. Low concern for metastases. - 02/03 pathology report shows adenocarcinoma of the ascending colon and low- grade findings of the sigmoid colon. Dr. Pham spoke directly with the patient regarding these results. - 02/04 patient awaiting follow-up with [facility] colorectal surgery service. [facility] will contact patient to arrange outpatient appointment (2) Adenocarcinoma, colon: Status: Acute Problem details: - 02/03 as above - and patient requesting further workup and management at [facility]. I was able to arrange outpatient follow-up with Colorectal surgery ([phone]). They will be contacting patient with further information. - CT chest abdomen pelvis without evidence of Mets - CEA ordered - pending at time of discharge (3) Hypocalcemia: Status: Acute Problem details: - 02/04 calcium noted to be down trending 8.0. Albumin 3.2. Corrected calcium 8.6. Mag 1.9, phosphorus 3.5, PTH ordered - pending at time of discharge (4) Symptomatic anemia: Status: Chronic Problem details: - 01/25 Hg 7.2 Transfused 2 units PRBC - 02/01 hemoglobin remaining stable at 8.4. Will recheck in the morning. - No longer symptomatic - in setting of newly diagnosed colon cancer (5) Diabetes mellitus type 2 in obese: Status: Chronic Problem details: - with peripheral neuropathy - Adequate control. Continue usual DM medications. - glucose checks ACHS, insulin sliding scale - outpatient follow-up with PCP (6) Heme positive stool: Status: Acute Problem details: - secondary to probably malignant colonic mass. (7) Morbid obesity with BMI of 50.0-59.9, adult: Status: Acute Problem details: -Discussion on admission the value of weight loss to improve his chronic back pain, disability and other chronic medical problems. He is open to a calorie restricted diet while he is here in the hospital. Nutrition consulted to help with preop diet/cancer diet. - outpatient follow-up with PCP and dietary (8) Spinal stenosis, lumbar region without neurogenic claudication: Status: Acute Problem details: - MRI and clinical evaluation at [facility] in October and [facility] in November showed significant deficits which were not felt to be surgical. Marked clinical improvement with rehab with abrupt onset of weakness today. Attempted to transfer to [facility]. They are close to admissions. Continue medical management/conservative management. Outpatient follow-up with [facility] in the 1st week of January. PT/OT evaluated him here. Recommend SNF, patient and agreeable. - 02/03 reports that patient is unable to be transported via private vehicle, typically requiring ambulance transportation - ongoing management with PCP (9) Lumbar radiculopathy, chronic: Status: Acute Problem details: - Chronic right hip pain and weakness likely due to this. Multilevel lumbar radiculopathy. Clinically appears to be more of a problem with spinal stenosis causing weakness. - ongoing management with PCP DS: Summary Hospital Course Hospital Course: [age] year old male past medical history significant for morbid obesity, anemia, diabetes mellitus with peripheral neuropathy, BRITTNEY, hypertension was admitted to the medical floor for increasing weakness and anemia. Course of care and details as noted above. Remainder of chronic medical comorbidities were monitored and managed with home medications. Outpatient follow-up with PCP and [facility] colorectal surgery service Status at Discharge Overall status at discharge: patient is not back to baseline Time Spent with Patient Time attestation: Total time spent providing and/or coordinating discharge services: Time spent: Greater than 30 minutes Exam Narrative: Exam Narrative: PHYSICAL EXAM General: Pleasant, conversant, NAD Cardiovascular: RRR, S1S2 Pulmonary: CTA bilaterally without rhonchi, rales, expiratory wheezes. No dyspnea Neurological: Alert, answering questions appropriately, cranial nerves intact, no focal findings Skin: Warm, dry. Const: Vital Signs, click to edit/add: Vital Signs - 24 hr 02/03/23 15:00 02/03/23 15:00 02/03/23 16:00 Temperature 98.4 F Pulse Rate [Left P ulse Oximeter] 75 Respiratory Rate 20 20 Blood Pressure [Ri ght Arm] Blood Pressure [le ft forearm] Blood Pressure [ri ght forearm] 159/72 H Pulse Oximetry 96 95 Oxygen Delivery Me thod Room Air Room Air 02/03/23 21:30 02/03/23 23:00 02/03/23 23:00 Temperature 98.0 F 97.7 F Pulse Rate [Left P ulse Oximeter] 77 86 86 Respiratory Rate 18 18 18 Blood Pressure [Ri ght Arm] Blood Pressure [le ft forearm] 150/75 H Blood Pressure [ri ght forearm] 163/77 H Pulse Oximetry 97 91 Oxygen Delivery Me thod Room Air CPAP 02/03/23 23:00 02/04/23 03:00 02/04/23 08:06 Temperature 97.5 F L 97.7 F Pulse Rate [Left P ulse Oximeter] 88 78 Respiratory Rate 22 16 Blood Pressure [Ri ght Arm] 162/82 H Blood Pressure [le ft forearm] 159/78 H Blood Pressure [ri ght forearm] Pulse Oximetry 91 97 97 Oxygen Delivery Me thod CPAP CPAP Room Air 02/04/23 08:06 02/04/23 08:06 02/04/23 11:15 Temperature 97.8 F Pulse Rate [Left P ulse Oximeter] 78 77 Respiratory Rate 16 16 16 Blood Pressure [Ri ght Arm] 171/71 H Blood Pressure [le ft forearm] Blood Pressure [ri ght forearm] Pulse Oximetry 97 98 Oxygen Delivery Me thod Room Air Room Air DS: Data Data Completed and Pending Pending studies at discharge: CEA, PTH Labs on day of discharge: Labs from last 24 hours 02/04/23 02/04/23 02/04/23 08:04 07:24 07:23 WBC RBC Hgb Hct MCV MCH MCHC Plt Count Sodium Potassium Chloride Carbon Dioxide Anion Gap BUN Creatinine Estimated Creat Clear Estimated GFR Glucose Calcium Phosphorus Magnesium Albumin PTH Intact PTH Intact pmol/L Pending Calcium (PTH Intact) Pending Lab Acknowledgement Test Added Test Added 02/04/23 05:55 WBC 8.33 RBC 3.86 L Hgb 8.4 L Hct 28.7 L MCV 74 L MCH 22 L MCHC 29 L Plt Count 272 Sodium 137 Potassium 3.9 Chloride 107 Carbon Dioxide 25 Anion Gap 5 L BUN 24 Creatinine 1.3 Estimated Creat Clear 66.63 Estimated GFR 59 Glucose 166 H Calcium 8.0 L Phosphorus 3.5 Magnesium 1.9 Albumin 3.2 L PTH Intact Cancelled PTH Intact pmol/L Calcium (PTH Intact) Lab Acknowledgement Discharge Plan Discharge Disposition: Home, Self-Care Date of Admission: 01/31/23 09:16 Attending Provider on Discharge: Prisca Ross Primary Care Provider: Grzegorz Wiggins Condition: Stable Anticipated Discharge Date/Time: 02/04/23 13:12 Discharge Medications: New diltiazem HCl 240 mg Capsule,Extended Release 24hr 240 mg PO BID 30 Days Qty: 60 0RF Continued levothyroxine 100 mcg tablet 100 mcg PO DAILY Patient Comments: TOTAL DOSE = 225MCG potassium chloride [Klor-Con M20] 20 mEq tablet,ER particles/crystals 60 meq PO DAILY pravastatin 80 mg tablet 80 mg PO HS magnesium oxide 400 mg (241.3 mg magnesium) tablet 400 mg PO DAILY tamsulosin 0.4 mg capsule 0.8 mg PO HS pantoprazole 40 mg tablet,delayed release (DR/EC) 40 mg PO QPM levothyroxine 125 mcg tablet 125 mcg PO DAILY Patient Comments: TOTAL DOSE = 225MCG allopurinol 300 mg tablet 300 mg PO DAILY metformin 500 mg tablet extended release 24 hr 500 mg PO DAILY spironolactone 50 mg tablet 50 mg PO DAILY insulin glargine [Lantus Solostar U-100 Insulin] 100 unit/mL (3 mL) insulin pen 38 unit subcut HS gabapentin 600 mg tablet 900 mg PO 3XD nystatin 100,000 unit/gram powder 1 applic topical BID duloxetine 30 mg capsule,delayed release(DR/EC) 30 mg PO BID sodium bicarbonate 650 mg tablet 1,950 mg PO TID acetaminophen [Tylenol Extra Strength] 500 mg tablet 1,000 mg PO TID glipizide 5 mg tablet 2.5 - 5 mg PO BIDWMEAL Rx Instructions: TAKE 1 TAB (5 MG) IN AM AND 1/2 TAB (2.5 MG) IN PM hydrochlorothiazide 12.5 mg tablet 6.25 mg PO DAILY methocarbamol 750 mg tablet 750 mg PO Q6H PRN pregabalin 100 mg capsule 100 mg PO TID sennosides [senna] 8.6 mg tablet 8.6 - 17.2 mg PO BID PRN glucosamine-chondroitin [Cosamin DS] 500-400 mg tablet 1 tab PO TID Discontinued diltiazem HCl [Cartia XT] 120 mg capsule,extended release 24hr 120 mg PO DAILY Discharge Orders: Discharge Order (Routine); Ordered 02/04/23 Ordered By: Prisca Ross Patient Education: Colorectal Cancer (GEN) Additional Instructions: HOME HEALTH RN, PT/OT TO EVALUATE AND TREAT Outpatient follow-up with [facility] Colorectal Surgery service- [facility] to arrange Activity Level: Up with assist and Use Walker Activity Detail: PT/OT to evaluate and treat Discharge Diet: Diabetic Follow Up Appointments: Grzegorz Wiggins MD [Primary Care Provider] - 02/11/23 (Post hospital follow-up) [facility]: [facility] Info Instructions
[2023-02-04 15:00] VITALS: BP 165/74; PULSE 78; RESP 18; TEMP 36.6; O2SAT 97
--- NOTE | 2023-02-04 17:17 | PC.NURSE ---
Discharge: Patient pleasant and cooperative. Patient vitally stable, lungs clear, BS WNL, IV removed, catheter intact. Patient rates pain at most 6/10, scheduled tylenol given. Patient 1 assist, walker, gb. Patient showered today with OT assistance. Patient tolerating regular diet, blood sugars 185 and 212. Patient signed belongings sheet and discharge form, patient had no further questions regarding discharge education. Patient left the floor by EMS to home at 1712.
[2023-02-05 05:11] LABS: Carcinoembryonic Antigen 2.7 ng/mL
== END 2023-02-04 17:12 | disposition home or self-care (01) | DRG 375 ==
LOC: ED 21:30 → MEDSURG 22:05
PROVIDERS: Family Medicine; Physician Assistant; Admitting Provider Internal Medicine; Emergency Provider Family Medicine; PCP Family Medicine; Visit Provider Family Medicine
DX: C18.2 Malignant neoplasm of ascending colon (principal); C18.7 Malignant neoplasm of sigmoid colon; K51.40 Inflammatory polyps of colon without complications; Z68.43 Body mass index [BMI] 50.0-59.9, adult; F33.9 Major depressive disorder, recurrent, unspecified; D50.9 Iron deficiency anemia, unspecified; R19.5 Other fecal abnormalities; D12.0 Benign neoplasm of cecum; D12.4 Benign neoplasm of descending colon; D12.5 Benign neoplasm of sigmoid colon; D12.3 Benign neoplasm of transverse colon; E11.22 Type 2 diabetes mellitus with diabetic chronic kidney disease; I12.9 Hypertensive chronic kidney disease with stage 1 through stage 4 chronic kidney disease, or unspecified chronic kidney disease; Z79.84 Long term (current) use of oral hypoglycemic drugs; Z79.4 Long term (current) use of insulin; M48.061 Spinal stenosis, lumbar region without neurogenic claudication; M25.551 Pain in right hip; G89.29 Other chronic pain; E66.01 Morbid (severe) obesity due to excess calories; G47.33 Obstructive sleep apnea (adult) (pediatric); E11.42 Type 2 diabetes mellitus with diabetic polyneuropathy; N18.9 Chronic kidney disease, unspecified; E83.51 Hypocalcemia; M54.16 Radiculopathy, lumbar region; Z99.89 Dependence on other enabling machines and devices; E03.9 Hypothyroidism, unspecified; N40.0 Benign prostatic hyperplasia without lower urinary tract symptoms; N20.0 Calculus of kidney; E78.5 Hyperlipidemia, unspecified
CPT/HCPCS: 36415; 36430; 43239; 45380; 45385; 71045; 71260; 731; 73560; 74177; 80048; 81001; 811; 82040; 82310; 82378; 82962; 83540; 83550; 83605; 83735; 83970; 84100; 84484; 85018; 85025; 85027; 86850; 86900; 86901; 86922; 87086; 87493; 87631; 88305; 88341; 88342; 94761; 97110; 97116; 97161; 97166; 97530; 97535; 99100; 99284; A9270; G0378; J1940; J2704; J3490; J7030; J7120; P9016; Q9967

== ENCOUNTER 2023-02-04 17:07 | Outpatient (CLI) | payer MEDICARE, BC, SELFPAY | END 2023-02-04 17:08 | disposition home or self-care (01) | LOC: AMB 02-07 15:29 | PROVIDERS: PCP Family Medicine; Visit Provider Family Medicine | DX: Z99.3 Dependence on wheelchair (principal) | CPT/HCPCS: A0425; A0428 ==

== ENCOUNTER 2023-02-20 00:29 | Outpatient (CLI) | payer MEDICARE, BC, SELFPAY | END 2023-02-20 00:30 | disposition home or self-care (01) | LOC: AMB 02-21 11:27 | PROVIDERS: PCP Family Medicine; Visit Provider Family Medicine | DX: R53.1 Weakness (principal); M79.604 Pain in right leg; M79.605 Pain in left leg | CPT/HCPCS: A0425; A0427 ==

== ENCOUNTER 2023-08-11 11:03 | Outpatient (CLI) | payer MEDICARE, BC, SELFPAY ==
--- NOTE | 2023-08-11 11:00 | CT_ITS ---
Patient: ALFONZO ROSS Facility:?[facility] Patient ID:?[id number] Site Patient ID:?[id number]. Site :?[id number] Study:?CT-Chest/Abd/Pelvis w/o-08/11/2023 11:30:34 AM Ordering Physician:Ayla Moon Final Report: INDICATION: Malignant neoplasm of colon TECHNIQUE: Volumetric helical scanning of the chest, abdomen and pelvis was performed without contrast. Coronal and sagittal reconstructions were obtained. COMPARISON: Abdomen/pelvis CT scans of 04/18/2023 and 02/21/2023 as well as the chest/abdomen/pelvis CT of 02/01/2023 FINDINGS: CHEST: An unchanged, noncalcified 2 mm right lower lobe nodule is noted on image 55 of series 3. an unchanged noncalcified lingular nodule is demonstrated on image 94. A small infiltrate is demonstrated in the left lower lobe base on images 86-91. The lungs are otherwise clear. No airway abnormality or pleural effusion is noted. No axillary, mediastinal or hilar adenopathy is apparent. The heart is normal in size. Calcified coronary arterial plaque is again demonstrated. ABDOMEN/PELVIS: A right hemicolectomy has been performed in the interval. No recurrent mass is evident. No peritoneal implant or free intraperitoneal fluid is noted. No mesenteric or retroperitoneal lymphadenopathy is demonstrated. An unchanged left common iliac node on image 176 of series 2 with short axis measurement of 1.2 cm is demonstrated as well as an unchanged right common iliac node with short axis measurement of 1.1 cm on image 178. An unchanged right external iliac node with short axis measurement of 1.5 cm is demonstrated on image 202. The liver is normal in size, shape and attenuation. Stones are again demonstrated in the gallbladder. The bile ducts are within normal limits. No lymphadenopathy is evident. No free fluid is demonstrated. The spleen and adrenal glands are negative. Atrophy of the pancreatic body and tail is again demonstrated along with pancreatic head calcifications. The pancreas is unchanged in appearance. Marked parenchymal thinning is demonstrated in the lower right kidney. The kidneys are otherwise grossly negative. The prostate is negative. No lytic or blastic bone lesion is identified. IMPRESSION: 1. Interval right hemicolectomy. No clear evidence of recurrent/metastatic disease. 2. Unchanged prominent common iliac nodes bilaterally and right external iliac node. 3. Several unchanged 2 mm lung nodules. 4. Cholelithiasis. Please note that all CT scans at this facility use dose modulation, iterative reconstruction, and/or weight-based dosing when appropriate to reduce radiation dose to as low as reasonably achievable. Dictated by William Nelson MD @ 08/12/2023 10:12:06 AM Signed by:?William Nelson MD @08/12/2023 10:12:06 AM (Electronic Signature)
--- OUTSIDE RECORDS SUMMARY | 2023-08-11 11:07 | XMS_ITS | Encounter Summary ---
Author Name Unknown Organization [facility] Address [address] [address] Phone Care Team Providers Care Control System Manager Name Role Phone Grzegorz Wiggins MD Primary Care Provider [phone] Encounter Details Date Type Department Care Team (Latest Contact Info) Description 07/04/2023 Travel Social History Tobacco Use Types Packs/Day Years Used Date Smoking Tobacco: Former Cigarettes Smokeless Tobacco: Never Alcohol Use Standard Drinks/Week Comments Never 0 (1 standard drink = 0.6 oz pur e alcohol) IP Custom IPV Answer Date Recorded Do you feel UNSAFE in any of your personal relationships with your family members or any other acquaintances? No 2023 Sex and Gender Information Value Date Recorded Sex Assigned at Not on file Gender Identity Not on file Sexual Orientation Not on file documented as of this encounter Functional Status Functional Status Response Date of Assess ment Patient's Vision Adequate to Safely Complete Daily Activities Yes 04/30/2023 Patient's Memory Adequate to Safely Complete Daily Activities Yes 04/30/2023 Cognitive Status Response Date of Assessm ent Patient's Judgment Adequate to Safely Complete Daily Activities Yes 04/30/2023 documented as of this encounter Plan of Treatment Not on file documented as of this encounter Visit Diagnoses Not on filedocumented in this encounter Care Teams Control System Manager Relationship Specialty Start Date End Date Grzegorz Wiggins MD [address] [place] [address] PCP - General Family Medicine 06/06/23 documented as of this encounter
--- OUTSIDE RECORDS SUMMARY | 2023-08-11 11:07 | XMS_ITS | Encounter Summary ---
Author Name Unknown Organization [facility] Address [address] [address] Phone Care Team Providers Care Pediatrician Active Practice Name Role Phone Grzegorz Wiggins MD Primary Care Provider [phone] Reason for Visit * Reason Comments Lab Work Encounter Details Date Type Department Care Team (Late st Contact Info) Description 07/04/2023 11:40 AM CDT ALLIED HEALTH/NURSE VISIT [facility] [address] [place] [phone] Lab, [facility] [address] [place] [phone] Lab Work Social History Tobacco Use Types Packs/Day Years Used Date Smoking Tobacco: Former Cigarettes Smokeless Tobacco: Never Alcohol Use Standard Drinks/Week Comments Never 0 (1 standard drink = 0.6 oz pur e alcohol) EH IP Custom IPV Answer Date Recorded Do [...] on file documented as of this encounter Procedures Procedure Name Priority Date/Time Associated Diagnosis Comments HEMOGLOBIN Routine 07/04/2023 11:45 AM CDT Iron deficiency anemia, unspecified iron deficiency anemia type documented in this encounter Results * (ABNORMAL) HEMOGLOBIN (07/04/2023 11:45 AM CDT) HGB 8.7(L) 13.0 - 18.0 g/dl 07/04/2023 11:49 AM CDT [facility] Blood BLOOD SPECIMEN / Unknown Venipuncture / Unknown 07/04/2023 11:45 AM CDT 07/04/2023 11:45 AM CDT Eli Rondon CNP EC HEMATOLOGY ORDERA BLES [facility] [address] [place] [address], [facility] [phone] documented in this encounter Visit Diagnoses Diagnosis Iron deficiency anemia, unspecified iron deficiency anemia type- Primary documented in this encounter Care Teams Pediatrician Active Practice Relationship Specialty Start Date End Date Grzegorz Wiggins MD [address] [place] [address] PCP - General Family Medicine 06/06/23 documented as of this encounter
--- OUTSIDE RECORDS SUMMARY | 2023-08-11 11:07 | XMS_ITS | Encounter Summary ---
Author Name Unknown Organization [facility] Address [address] [address] Phone Care Team Providers Care Product Applications Engineer Name Role Phone Grzegorz Wiggins MD Primary Care Provider [phone] Reason for Visit * Reason Comments Lab Work Encounter Details Date Type Department Care Team (Late st Contact Info) Description 06/20/2023 9:45 AM AUTO PAINTER HELPER ALLIED HEALTH/NURSE VISIT [facility] [address] [place] [phone] Lab, [facility] [address] [place] [phone] Lab Work Social History Tobacco Use Types [...] Priority Date/Time Associated Diagnosis Comments HEMOGLOBIN Routine 06/20/2023 9:15 AM AUTO PAINTER HELPER Anemia, unspecified type documented in this encounter Results * (ABNORMAL) HEMOGLOBIN (06/20/2023 9:15 AM AUTO PAINTER HELPER) HGB 8.3(L) 13.0 - 18.0 g/dl 06/20/2023 9:18 AM AUTO PAINTER HELPER [facility] Blood BLOOD SPECIMEN / Unknown Venipuncture / Unknown 06/20/2023 9:15 AM AUTO PAINTER HELPER 06/20/2023 9:15 AM AUTO PAINTER HELPER Eli Rondon DIVISION PLANT ENGINEER EC HEMATOLOGY ORDERA BLES [facility] [address] [place] [id number], [facility] [phone] documented in this encounter Visit Diagnoses Diagnosis Anemia, unspecified type- Primary documented in this encounter Care Teams Product Applications Engineer Relationship Specialty Start Date End Date Grzegorz Wiggins MD [facility] [place] [address] PCP - General Family Medicine 06/06/23 documented as of this encounter
--- OUTSIDE RECORDS SUMMARY | 2023-08-11 11:07 | XMS_ITS | Encounter Summary ---
Author Name Unknown Organization [facility] [employer] [facility] Address [address] [address] Phone Care Team Providers Care Supervisor Vendor Quality Name Role Phone Unavailable Primary Care Provider Unavailabl e Encounter Details Date Type Department Care Team (Latest Contact Info) Description 05/02/2023 3:04 PM COPPER MINER BLASTING - 05/02/2023 11:59 PM COPPER MINER BLASTING Hospital Encounter [facility] [address] [phone] Eli Rondon, [facility] [address] [place] [address] Discharge Disposition: Discharged Social History Tobacco Use Types Packs/Day Years [...] Yes 04/30/2023 documented as of this encounter Medications at Time of Discharge Medication Sig Dispensed Refills Start Date End Date insulin glargine (Lantus) 100 UNIT/ML pen injection Inject 26 Units under the skin at bedtime. 04/27/2023 insulin aspart FlexPen (NovoLOG) 100 UNIT/ML pen injection Inject under the skin three times a day. 04/27/2023 allopurinol (Zyloprim) 300 MG tablet Take 300 mg by mouth one time a day. 01/06/2023 furosemide (Lasix) 20 MG tablet Take 20 mg by mouth one time a day. 04/27/2023 glucosamine-chondroitin 500-400 MG capsule Take 1 Capsule by mouth three times a day. 12/17/2018 levothyroxine (Synthroid) 100 MCG tablet Take 100 mcg by mouth every morning before breakfast. 05/27/2014 levothyroxine (Synthroid) 125 MCG tablet Take 125 mcg by mouth every morning before breakfast. 05/27/2014 pantoprazole (Protonix) 40 MG delayed-release tablet Take 40 mg by mouth every morning before breakfast. 09/16/2022 pravastatin (Pravachol) 80 MG tablet Take 1 Tablet by mouth at bedtime. 11/24/2015 spironolactone (Aldactone) 25 MG tablet Take 25 mg by mouth one time a day. 04/27/2023 tamsulosin (Flomax) 0.4 MG 24 hour capsule Take 2 Capsules by mouth at bedtime. 05/27/2014 dilTIAZem CD (Cardizem CD) 240 MG 24 hour extended release capsule Take 240 mg by mouth two times a day. DULoxetine (Cymbalta) 30 MG delayed release capsule Take 30 mg by mouth two times a day. 2022 2023 Lactobacillus Rhamnosus, GG, ([facility]) capsule Take 1 Capsule by mouth two times a day. 04/27/2023 metFORMIN (Glucophage) 1000 MG tablet Take 1,000 mg by mouth two times a day with meals. 04/27/2023 pregabalin (Lyrica) 300 MG capsule Take 300 mg by mouth two times a day. 04/27/2023 magnesium oxide (Mag-Ox) 400 MG tablet Take 400 mg by mouth. 10/20/2022 sodium bicarbonate 650 MG tablet Take 1,300 mg by mouth three times a day. 03/07/2023 acetaminophen (Tylenol) 500 MG tablet Take 1,000 mg by mouth four times a day. 06/15/2021 HYDROmorphone (Dilaudid) 2 MG tablet Take 2 mg by mouth two times a day as needed. 04/27/2023 hydrOXYzine HCl (Atarax) 10 MG tablet Take 10 mg by mouth every six hours as needed. 04/27/2023 metroNIDAZOLE (Flagyl) 500 MG tablet Take 500 mg by mouth three times a day. 04/27/2023 05/03/2023 documented as of this encounter Discharge Disposition Disposition Code Departure Means Destination Discharged documented in this encounter Plan of Treatment Not on file documented as of this encounter Procedures Procedure Name Priority Date/Time Associated Diagnosis Comments XR CHEST 2 VIEWS Routine 05/02/2023 3:24 PM COPPER MINER BLASTING Acute cough documented in this encounter Results * XR CHEST 2 VIEWS (05/02/2023 3:24 PM COPPER MINER BLASTING) Anatomical Region Laterality Modality Chest Digital Radiogra phy 05/02/2023 3:04 PM COPPER MINER BLASTING Narrative 05/03/2023 6:36 AM COPPER MINER BLASTING PROCEDURE: XR CHEST 2 VIEWS HISTORY: Acute cough COMPARISON: None FINDINGS: The heart size, mediastinum, and pulmonary veins are normal. The lungs are free of infiltrate. There is no pneumothorax or effusion. Spondylosis is seen in the thoracic spine. IMPRESSION: No radiographic evidence of acute cardiopulmonary disease. Electronically signed by Grzegorz Camejo MD Report Date: 05/03/2023 6:36 AM Procedure Note Grzegorz Camejo MD - 05/03/2023 PROCEDURE: XR CHEST 2 VIEWS HISTORY: Acute cough COMPARISON: None FINDINGS: The heart size, mediastinum, and pulmonary veins are normal. The lungs are free of infiltrate. There is no pneumothorax or effusion. Spondylosis is seen in the thoracic spine. IMPRESSION: No radiographic evidence of acute cardiopulmonary disease. Electronically signed by Grzegorz Camejo MD Report Date: 05/03/2023 6:36 AM Eli Rondon CNP EC DIAGNOSTIC IMAGIN G ORDERABLES documented in this encounter Visit Diagnoses Not on filedocumented in this encounter Additional Health Concerns Infection Onset Date Last Indicated Resolved Time R/O Respiratory Pathogens 05/02/2023 05/02/2023 4:02 PM [employer] BLASTING R/O COVID-19 05/02/2023 05/02/2023 05/03/2023 4:02 PM [employer] BLASTING R/O Enteric Pathogens 05/02/2023 05/02/20232023 5:53 PM [employer] BLASTING documented as of this encounter
--- OUTSIDE RECORDS SUMMARY | 2023-08-11 11:07 | XMS_ITS | Encounter Summary ---
Author Name Unknown Organization [facility] [email or web address] [facility] Address [address] [address] Phone Care Team Providers Care Neonatal Pediatric Nurse Name Role Phone Grzegorz Wiggins MD Primary Care Provider [phone] Reason for Visit * Reason Comments Lab Work Encounter Details Date Type Department Care Team (Late st Contact Info) Description 06/06/2023 10:40 AM GRID INSPECTOR ALLIED HEALTH/NURSE VISIT [facility] [address] [place] [phone] Lab, [facility] [address] [place] [phone] Lab Work Social History Tobacco Use Types [...] Procedure Name Priority Date/Time Associated Diagnosis Comments HEMOGRAM Routine 06/06/2023 9:00 AM GRID INSPECTOR Anemia, unspecified type documented in this encounter Results * (ABNORMAL) HEMOGRAM (06/06/2023 9:00 AM GRID INSPECTOR) WBC 6.2 4.0 - 11.0 X10*3u/L 06/06/2023 10:44 AM [facility] RBC 3.76(L) 4.40 - 6.00 X10*6/uL 06/06/2023 10:44 AM [facility] HGB 8.5(L) 13.0 - 18.0 g/dl 06/06/2023 10:44 AM [facility] HCT 28.1(L) 40.0 - 52.0 % 06/06/2023 10:44 AM [facility] MCV 74.7(L) 80 - 96 fL 06/06/2023 10:44 AM [facility] MCH 22.6(L) 27.0 - 34.0 pg 06/06/2023 10:44 AM [facility] MCHC 30.2(L) 32 - 36 g/dl 06/06/2023 10:44 AM [facility] PLT 240 150 - 420 X10*3/uL 06/06/2023 10:44 AM [facility] RDW-CV 18.2(H) 11.6 - 14.4 % 06/06/2023 10:44 AM [facility] RDW-SD 49.8(H) 35.1 - 43.9 fL 06/06/2023 10:44 AM [facility] Blood BLOOD SPECIMEN / Unknown Venipuncture / Unknown 06/06/2023 9:00 AM GRID INSPECTOR 06/06/2023 10:41 AM [facility] Eli Rondon CNP EC HEMATOLOGY ORDERA BLES [facility] [address] [place] [address] [place] [address], [facility] [phone] documented in this encounter Visit Diagnoses Diagnosis Anemia, unspecified type- Primary documented in this encounter Care Teams Neonatal Pediatric Nurse Relationship Specialty Start Date End Date Grzegorz Wiggins MD [address] [place] [address] PCP - General Family Medicine 06/06/23 documented as of this encounter
--- OUTSIDE RECORDS SUMMARY | 2023-08-11 11:07 | XMS_ITS | Clinical Summary ---
Author Name Unknown Organization [employer] [facility] Address [address] [address] Phone Care Team Providers Care Waiter/Waitress Informal Name Role Phone Grzegorz Wiggins MD Primary Care Provider [phone] Allergies Active Allergy Reactions Criticality Noted Date Comments Amoxicillin-Pot Clavulanate Diarrhea Medium 05/27/2014 Atenolol Dizziness Medium 09/05/2006 intolerance: presyncope pass out Blood-Group Specific Substance Unknown 07/29/2014 Patient has a Non-Specific Antibody. Please draw 2 purple top tubes and 1 red top tube for all Type and Screen and Type and Crossmatch Red Blood Cell product orders. Blood products may be delayed. Patient has a Non-Specific Antibody. Please draw 2 purple top tubes and 1 red top tube for all Type and Screen and Type and Crossmatch Red Blood Cell product orders. Blood products may be delayed. ??Pt has no idea what this means Clavulanic Acid Diarrhea Low 10/03/2022 Lisinopril Cough Medium 09/05/2006 intolerance: cough Losartan Hypotension High 12/21/2022 Orthostatics Meperidine Nausea Only Medium 09/05/2006 Terazosin Dyspnea High 06/11/2015 Trospium Constipation,Unknown Low 04/25/2019 Dry mouth Medications Medication Sig Dispensed Refills Start Date End Date Status insulin glargine (Lantus) 100 UNIT/ML pen injection Inject 26 Units under the skin at bedtime. 04/27/2023 Active insulin aspart FlexPen (NovoLOG) 100 UNIT/ML pen injection Inject under the skin three times a day. 04/27/2023 Active allopurinol (Zyloprim) 300 MG tablet Take 300 mg by mouth one time a day. 01/06/2023 Active furosemide (Lasix) 20 MG tablet Take 20 mg by mouth one time a day. 04/27/2023 Active glucosamine-chondroit in 500-400 MG capsule Take 1 Capsule by mouth three times a day. 12/17/2018 Active levothyroxine (Synthroid) 100 MCG tablet Take 100 mcg by mouth every morning before breakfast. 05/27/2014 Active levothyroxine (Synthroid) 125 MCG tablet Take 125 mcg by mouth every morning before breakfast. 05/27/2014 Active pantoprazole (Protonix) 40 MG delayed-release tablet Take 40 mg by mouth every morning before breakfast. 09/16/2022 Active pravastatin (Pravachol) 80 MG tablet Take 1 Tablet by mouth at bedtime. 11/24/2015 Active spironolactone (Aldactone) 25 MG tablet Take 25 mg by mouth one time a day. 04/27/2023 Active tamsulosin (Flomax) 0.4 MG 24 hour capsule Take 2 Capsules by mouth at bedtime. 05/27/2014 Active dilTIAZem CD (Cardizem CD) 240 MG 24 hour extended release capsule Take 240 mg by mouth two times a day. Active DULoxetine (Cymbalta) 30 MG delayed release capsule Take 30 mg by mouth two times a day. 2022 2023 Active Lactobacillus Rhamnosus, GG, ([facility]) capsule Take 1 Capsule by mouth two times a day. 04/27/2023 Active metFORMIN (Glucophage) 1000 MG tablet Take 1,000 mg by mouth two times a day with meals. 04/27/2023 Active pregabalin (Lyrica) 300 MG capsule Take 300 mg by mouth two times a day. 04/27/2023 Active magnesium oxide (Mag-Ox) 400 MG tablet Take 400 mg by mouth. 10/20/2022 Active sodium bicarbonate 650 MG tablet Take 1,300 mg by mouth three times a day. 03/07/2023 Active acetaminophen (Tylenol) 500 MG tablet Take 1,000 mg by mouth four times a day. 06/15/2021 Active HYDROmorphone (Dilaudid) 2 MG tablet Take 2 mg by mouth two times a day as needed. 04/27/2023 Active hydrOXYzine HCl (Atarax) 10 MG tablet Take 10 mg by mouth every six hours as needed. 04/27/2023 Active Active Problems Problem Noted Date Diagnosed Date Cough in adult 05/02/2023 Encounters Date Type Department Care Team Description 07/04/2023 11:40 AM CDT ALLIED HEALTH/NURSE VISIT [facility] [address] [place] [address] AL[place]UEL [phone] Lab, [facility] Lab Work 07/04/2023 Travel 06/20/2023 9:45 AM LOT TECHNICIAN ALLIED HEALTH/NURSE VISIT [facility] [address] [place] [address] [place] [address] Lab, [facility] Lab Work 06/20/2023 Travel 06/06/2023 10:40 AM LOT TECHNICIAN ALLIED HEALTH/NURSE VISIT [facility] [address] [place] [address] AL[place] MANUEL [phone] Lab, [facility] Lab Work 06/06/2023 9:00 AM LOT TECHNICIAN ALLIED HEALTH/NURSE VISIT [facility] [address] [place] [address] [place] [address] Lab, [facility] Lab Work 06/06/2023 Travel from Last 3 Months Social History Tobacco Use Types Packs/Day Years Used Date Smoking Tobacco: Former Cigarettes Smokeless Tobacco: Never Tobacco Cessation:Counseling Given: Not Answered Alcohol Use Standard Drinks/Week Comments Never 0 [...] on file Sexual Orientation Not on file Obstetrics History Last Filed Vital Signs Vital Sign Reading Time Taken Comments Blood Pressure 146/71 04/30/2023 3:25 PM LOT TECHNICIAN Pulse 78 04/30/2023 3:25 PM LOT TECHNICIAN Temperature 36.3 ??C (97.4 ??F) 04/30/2023 3:25 PM CS T Respiratory Rate 18 04/30/2023 3:25 PM LOT TECHNICIAN Oxygen Saturation 99% 04/30/2023 3:25 PM LOT TECHNICIAN Inhaled Oxygen Concentration - - Weight 184.2 kg (406 lb) 04/30/2023 3:23 PM LOT TECHNICIAN Height 195.6 cm (6' 5) 04/30/2023 3:23 PM LOT TECHNICIAN Body Mass Index 48.14 04/30/2023 3:23 PM LOT TECHNICIAN Plan of Treatment Health Maintenance Due Date Last Done Comments CT Colonography 1952 Cologuard 1952 Colonoscopy 1950 Colorectal Cancer Screening 1952 FIT/FOBT 1952 Sigmoidoscopy 1952 PERTUSSIS (Standing Order) 11/06/1971 TETANUS (Standing Order) 11/06/1971 Shingrix (Zoster recombinant ) vaccine (Standing Order) (1 of 2) 2002 RSV Vaccination (60+ yrs) (Abrysvo/Arexvy) (1 - 1-dose 60+ series) 2012 Pneumococcal Vaccine: 65+ yr s (Standing Order) (1 of 1 - PCV) 2017 COVID-19 Vaccine (2022-2 4 season) 2022 Influenza Vaccine Seasonal (Standing Order) (#1) 2022 HPV Vaccine (Standing Order) Aged Out No longer eligible based on patient's age to complete this topic Hepatitis B Vaccine (Standin g Order) Aged Out No longer eligible b ased on patient's age to complete this topic Procedures Procedure Name Priority Date/Time Associated Diagnosis Comments HEMOGLOBIN Routine 07/04/2023 11:45 AM CDT Iron deficiency anemia, unspecified iron deficiency anemia type HEMOGLOBIN Routine 06/20/2023 9:15 AM LOT TECHNICIAN Anemia, unspecified type HEMOGRAM Routine 06/06/2023 9:00 AM LOT TECHNICIAN Anemia, unspecified type BASIC METABOLIC PANEL Routine 06/06/2023 9:00 AM LOT TECHNICIAN Hypertensive renal disease Stage 3 chronic kidney disease, unspecified whether stage 3a or 3b CKD (HCC) from Last 3 Months Results * (ABNORMAL) HEMOGLOBIN (07/04/2023 11:45 AM CDT) HGB 8.7(L) 13.0 - 18.0 g/dl 07/04/2023 11:[address] [facility] Blood BLOOD SPECIMEN / Unknown Venipuncture / Unknown 07/04/2023 11:45 AM CDT 07/04/2023 11:45 AM CDT Eli Rondon [employer] EC HEMATOLOGY ORDERA BLES Performing Organization Address [facility] Co de Phone Number [facility] [address] [place] [address] * (ABNORMAL) HEMOGLOBIN (06/20/2023 9:15 AM LOT TECHNICIAN) HGB 8.3(L) 13.0 - 18.0 g/dl 06/20/2023 9:[address] [facility] Blood BLOOD SPECIMEN / Unknown Venipuncture / Unknown 06/20/2023 9:15 AM LOT TECHNICIAN 06/20/2023 9:15 AM LOT TECHNICIAN Eli Andrew Nela [employer] EC HEMATOLOGY ORDERA BLES Performing Organization Address [facility] Co de Phone Number [facility] [address] [place] [address] * (ABNORMAL) BASIC METABOLIC PANEL (06/06/2023 9:00 AM LOT TECHNICIAN) Sodium 138 135 - 144 mmol/L 06/06/2023 9:17 AM [facility] Potassium 4.3 3.4 - 5.1 mmol/L 06/06/2023 9:17 AM [facility] Chloride 99 98 - 107 mmol/L 06/06/2023 9:17 AM [facility] Carbon Dioxide 30 22 - 30 mmol/L 06/06/2023 9:17 AM [facility] Calcium 8.7 8.6 - 10.3 mg/dL 06/06/2023 9:17 AM [facility] Glucose 182(H) 74 - 100 mg/dL 06/06/2023 9:17 AM [facility] Blood Urea nitrogen 36(H) 9 - 20 mg/dL 06/06/2023 9:17 AM [facility] Creatinine 1.44(H) 0.66 - 1.25 mg/dL 06/06/2023 9:17 AM [facility] Anion Gap 9 5 - 15 mmol/L 06/06/2023 9:17 AM [facility] Glomerular Filtration Rate 52(L) >60 mL/min/1.7 3 m*2 06/06/2023 9:17 AM [facility] Comment:This calculation use s CKD-EPI 2020 equation; it has not been validated in women. Blood BLOOD SPECIMEN / Unknown Venipuncture / Unknown 06/06/2023 9:00 AM LOT TECHNICIAN 06/06/2023 9:04 AM [facility] John Lerner MD EC CHEMISTRY ORDERAB LES [facility] [address] [place] [address] * (ABNORMAL) HEMOGRAM (06/06/2023 9:00 AM [facility]) WBC 6.2 4.0 - 11.0 X10*3u/L 06/06/2023 10:44 AM [facility] RBC 3.76(L) 4.40 - 6.00 X10*6/uL 06/06/2023 10:44 AM [facility] HGB 8.5(L) 13.0 - 18.0 g/dl 06/06/2023 10:44 AM [facility] HCT 28.1(L) 40.0 - 52.0 % 06/06/2023 10:44 AM [facility] MCV 74.7(L) 80 - 96 fL 06/06/2023 10:44 AM [facility] MCH 22.6(L) 27.0 - 34.0 pg 06/06/2023 10:44 AM [facility] MCHC 30.2(L) 32 - 36 g/dl 06/06/2023 10:44 AM [facility] PLT 240 150 - 420 X10*3/uL 06/06/2023 10:44 AM [facility] RDW-CV 18.2(H) 11.6 - 14.4 % 06/06/2023 10:44 AM [facility] RDW-SD 49.8(H) 35.1 - 43.9 fL 06/06/2023 10:44 AM [facility] Blood BLOOD SPECIMEN / Unknown Venipuncture / Unknown 06/06/2023 9:00 AM LOT TECHNICIAN 06/06/2023 10:41 AM LOT TECHNICIAN Eli Rondon CNP EC HEMATOLOGY ORDERA BLES Performing Organization Address City/State/[facility] Co de Phone Number [facility] [address] [place] [address], [facility] [phone] from Last 3 Months Care Teams Waiter/Waitress Informal Relationship Specialty Start Date End Date Grzegorz Wiggins MD [address] [place] [address] PCP - General Family Medicine 06/06/23
--- OUTSIDE RECORDS SUMMARY | 2023-08-11 11:07 | XMS_ITS | Encounter Summary ---
Author Name Unknown Organization [employer] [facility] Address [address] [address] Phone Care Team Providers Care Etl Informatica Architect Name Role Phone Grzegorz Wiggins MD Primary Care Provider [phone] Encounter Details Date Type Department Care Team (Latest Contact Info) Description 06/06/2023 Travel Social History Tobacco Use Types Packs/Day [...] on filedocumented in this encounter Care Teams Etl Informatica Architect Relationship Specialty Start Date End Date Grzegorz Wiggins MD [address] [place] [address] PCP - General Family Medicine 06/06/23 documented as of this encounter
--- OUTSIDE RECORDS SUMMARY | 2023-08-11 11:07 | XMS_ITS | Encounter Summary ---
Author Name Unknown Organization [facility] [employer] [facility] Address [address] [address] Phone Care Team Providers Care Console Operator Name Role Phone Grzegorz Wiggins MD Primary Care Provider [phone] Reason for Visit * Reason Comments Lab Work Encounter Details Date Type Department Care Team (Late st Contact Info) Description 06/06/2023 9:00 AM PEARL HAND ALLIED HEALTH/NURSE VISIT [facility] [address] [place] [phone] Lab, [facility] [address] [place] [phone] Lab Work Social History Tobacco Use Types [...] Procedure Name Priority Date/Time Associated Diagnosis Comments BASIC METABOLIC PANEL Routine 06/06/2023 9:00 AM PEARL HAND Hypertensive renal disease Stage 3 chronic kidney disease, unspecified whether stage 3a or 3b CKD (HCC) documented in this encounter Results * (ABNORMAL) BASIC METABOLIC PANEL (06/06/2023 9:00 AM [facility]) Sodium 138 135 - 144 mmol/L 06/06/2023 9:17 AM [facility] Potassium 4.3 3.4 - 5.1 mmol/L 06/06/2023 9:17 AM [facility] Chloride 99 98 - 107 mmol/L 06/06/2023 9:17 AM [facility] Carbon Dioxide 30 22 - 30 mmol/L 06/06/2023 9:17 AM [facility] Calcium 8.7 8.6 - 10.3 mg/dL 06/06/2023 9:17 AM [facility] Glucose 182(H) 74 - 100 mg/dL 06/06/2023 9:17 AM [facility] Blood Urea nitrogen 36(H) 9 - 20 mg/dL 06/06/2023 9:17 AM [facility] Creatinine 1.44(H) 0.66 - 1.25 mg/dL 06/06/2023 9:17 AM [facility] Anion Gap 9 5 - 15 mmol/L 06/06/2023 9:17 AM [facility] Glomerular Filtration Rate 52(L) >60 mL/min/1.7 3 m*2 06/06/2023 9:17 AM [facility] Comment:This calculation use s CKD-EPI 2020 equation; it has not been validated in women. Blood BLOOD SPECIMEN / Unknown Venipuncture / Unknown 06/06/2023 9:00 AM PEARL HAND 06/06/2023 9:04 AM [facility] John Lerner MD EC CHEMISTRY ORDERAB LES [facility] [address] [place], [place] [address] [address] [phone] documented in this encounter Visit Diagnoses Diagnosis Hypertensive renal disease Unspecified hypertensive kidney disease with chronic kidney disease stage I through stage IV, or unspecified Stage 3 chronic kidney disease, unspecified whether stage 3a or 3b CKD (HCC) Anemia, unspecified type documented in this encounter Care Teams Console Operator Relationship Specialty Start Date End Date Grzegorz Wiggins MD [address] [place] [address] PCP - General Family Medicine 06/06/23 documented as of this encounter
--- OUTSIDE RECORDS SUMMARY | 2023-08-11 11:07 | XMS_ITS | Encounter Summary ---
Author Name Unknown Organization [employer] [facility] Address [address] [address] Phone Care Team Providers Care Staff Cytotechnologist Name Role Phone Grzegorz Wiggins MD Primary Care Provider [phone] Encounter Details Date Type Department Care Team (Latest Contact Info) Description 06/20/2023 Travel Social History Tobacco Use Types Packs/Day [...] on filedocumented in this encounter Care Teams Staff Cytotechnologist Relationship Specialty Start Date End Date Grzegorz Wiggins MD [address] [place] [address] PCP - General Family Medicine 06/06/23 documented as of this encounter
--- OUTSIDE RECORDS SUMMARY | 2023-08-11 11:10 | XMS_ITS ---
Author Name Unknown Organization [facility] Address [address] [place] [address] Care Team Providers Care Can Filling And Closing Machine Tender Name Role Phone Unavailable Unavailable Unavailable Surgery Details Not on file Complications Check Surgery Details section. Procedure Estimated Blood Loss Check Surgery Details section. Procedure Findings Check Surgery Details section. Procedure Specimens Taken Check Surgery Details section.
--- OUTSIDE RECORDS SUMMARY | 2023-08-11 11:10 | XMS_ITS | Referral Summary ---
Author Name Unknown Organization [facility] Address [address] [place] [id number] Care Team Providers Care Sql Report Writer Name Role Phone Elsewhere, Pcp Primary Care Provider Unavailabl e Source Comments Patient records contain information from all sites at [facility]. For routine questions regarding patient records, call [phone] during business hours, M-F 8:00 AM - 5:00 PM Central Time. Record requests for emergency care only can be directed to [phone] at any time.[facility] Encounters Date Type Department Care Team Description 08/09/2023 CPAP Download Remote Patient Monitoring [facility] [address] [place] [address] [facility], Provider 08/08/2023 1:06 PM CDT - 08/08/2023 11:59 PM CDT Hospital Encounter Department of Radiology, [facility], in [place], [place] [address] [place] [phone] Mario Alberto Navarro P.A.-C., M.S. Wilner Casas M.D. 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 Colectomy Partial Status Post (Primary Dx); Malignant Neoplasm Of Cecum (HCC); Malignant Neoplasm Of Colon (HCC); Tachycardia Atrial Paroxysmal (HCC); Hypertensive Chronic Kidney Disease (CKD) Stage 3a Glomerular Filtration Rate (GFR) 45 To 59 (HCC); Edema Leg Chronic; Diabetes Mellitus Type 2 Peripheral Neuropathy (HCC); Wound Foot Open Initial Right; Stenosis Spinal Lumbar With Neurogenic Claudication; Weakness General; Anemia Iron Deficiency; Apnea Sleep Obstructive; Nephrolithiasis Urate; Gastroesophageal Reflux Disease; Depressive Disorder 06/29/2023 Clinical Communication Department of Oncology in [place], [place] [address] [place] [phone] Zan Rodriguez P.A.-C., M.S. 06/28/2023 1:00 PM CDT External Outreach [facility] in [place] [address] [place] [address] John Lerner M.D. Colectomy Partial Status Post (Primary Dx); Malignant Neoplasm Of Cecum (HCC); Malignant Neoplasm Of Colon (HCC); Tachycardia Atrial Paroxysmal (HCC); Hypertensive Chronic Kidney Disease (CKD) Stage 3a Glomerular Filtration Rate (GFR) 45 To 59 (HCC); Edema Leg Chronic; Diabetes Mellitus Type 2 Peripheral Neuropathy (HCC); Stenosis Spinal Lumbar With Neurogenic Claudication; Weakness General; Apnea Sleep Obstructive; Anemia Iron Deficiency; Wound Foot Open Initial Right; Nephrolithiasis Urate; Depressive Disorder; Gastroesophageal Reflux Disease 06/21/2023 Clinical Communication Department of Oncology in [place], [place] [address] [place] [phone] Brenda Delgadillo M.D. Referral 06/20/2023 Orders Only [facility] in [place] [address] [place] [address] Eli Rondon APRN, C.N.P., R.N. 06/20/2023 3:00 PM VIDEO RECORDER MECHANIC Telemedicine Department of Oncology in [place], [place] [address] [place] [phone] Brenda Delgadillo M.D. Malignant Neoplasm Of Colon Ascending (HCC) (Primary Dx); Malignant Neoplasm Of Sigmoid Colon (HCC); Nodules Pulmonary Multiple; Stenosis Spinal Lumbar With Neurogenic Claudication; Diabetes Mellitus Type 2 Peripheral Neuropathy (HCC); Hypertensive Chronic Kidney Disease (CKD) Stage 3a Glomerular Filtration Rate (GFR) 45 To 59 (HCC) 06/16/2023 9:15 AM VIDEO RECORDER MECHANIC Clinical Communication Virtual Review in [place], [place] [address] [place] [address] 06/15/2023 9:30 AM VIDEO RECORDER MECHANIC External Outreach [facility] in [place] [address] [place] [phone] Eli Rondon APRN, C.N.P., R.N. Anemia Iron Deficiency (Primary Dx); Malignant Neoplasm Of Colon Ascending (HCC); Hypertensive Chronic Kidney Disease (CKD) Stage 3a Glomerular Filtration Rate (GFR) 45 To 59 (HCC); Diabetes Mellitus Type 2 Peripheral Neuropathy (HCC); Stenosis Spinal Lumbar With Neurogenic Claudication; Weakness General 06/09/2023 Documentation Department of Medical Genetics in [place], [place] [address] [place] [address] Kirsty Mclaughlin Genetic Testing Results 06/08/2023 CPAP Download Remote [facility] [address] [place] [address] [facility], Provider 06/06/2023 Clinical Communication [facility] in [place] [address] [place] [phone] John Lerner M.D. 06/06/2023 Clinical Communication Department of Oncology in [place], [place] [address] [place] [phone] Brenda Delgadlilo M.D. Appt Video 06/03/2023 2:00 PM VIDEO RECORDER MECHANIC Telemedicine Department of Orthopedic Surgery in [place], [place] [address] [place] [address] Mario Alberto Navarro, P.A.-C., M.S. 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 05/31/2023 1:00 PM [facility] External Outreach [facility] in [place] [address] [place] [address] John Lerner M.D. Colectomy Partial Status Post (Primary Dx); Malignant Neoplasm Of Cecum (HCC); Tachycardia Atrial Paroxysmal (HCC); Hypertensive Chronic Kidney Disease (CKD) Stage 3a Glomerular Filtration Rate (GFR) 45 To 59 (HCC); Edema Leg Chronic; Rash Leg; Diabetes Mellitus Type 2 Peripheral Neuropathy (HCC); Hyperlipidemia; Hypothyroidism; Anemia; Depression Major Recurrent (HCC); Stenosis Spinal Lumbar With Neurogenic Claudication; Weakness General; Apnea Sleep Obstructive; Nephrolithiasis; Stones Uric Acid; Benign Prostatic Hyperplasia Without Obstruction 05/23/2023 Clinical Communication Division of Colon and Rectal Surgery in [address] [phone] Bonny Clifton M.B., Juan Manuel, MJhon. Results 05/18/2023 10:30 AM [facility] External Outreach [facility] in [place] [address] [place] [address] Eli Rondon, BETHANY, C.N.P., R.N. Malignant Neoplasm Of Cecum (HCC) (Primary Dx); Malignant Neoplasm Of Colon (HCC); Malignant Neoplasm Of Colon Ascending (HCC); Depression Major Recurrent (HCC); Tachycardia Atrial Paroxysmal (HCC); Morbid Obesity Body Mass Index 50.0-59.9 Adult (HCC); Diabetes Mellitus Type 2 Peripheral Neuropathy (HCC); Weakness General; Anemia Iron Deficiency; Chronic Kidney Disease (CKD), Stage 3a Glomerular Filtration Rate (GFR) 45 To 59 (HCC); Decline Functional Status; Hypothyroidism; Apnea Sleep Obstructive; Debility; Stones Uric Acid; Stenosis Spinal Lumbar With Neurogenic Claudication; Stone Kidney And Ureteral; Nodule Prostate; Other Hyperlipidemia; Edema; COVID-19 Infection 05/16/2023 Clinical Communication Division of Colon and Rectal Surgery in [address] [address] Bonny Clifton M.B., BEstela, MJhon. Cancer stage 05/11/2023 2:08 PM VIDEO RECORDER MECHANIC - 05/16/2023 10:24 AM VIDEO RECORDER MECHANIC Hospital Encounter [facility], [facility], [facility], Sixth Floor [address] [place] [address] Bonny Clifton M.B., Juan Manuel, MJhon. Repeated Falls (Primary Dx); Malignant Neoplasm Of Colon Ascending (HCC); Morbid Severe Obesity Due To Excess Calories (HCC); Stenosis Spinal Lumbar With Neurogenic Claudication; Weakness General; Debility; Malignant Neoplasm Of Colon (HCC) Discharge Disposition: Longterm Facility 05/12/2023 12:34 PM VIDEO RECORDER MECHANIC - 05/12/2023 4:51 PM VIDEO RECORDER MECHANIC Surgery [facility] [address] [place] [address] Bonny Clifton M.B., Juan Manuel, MJhon. LAPAROSCOPIC COLECTOMY RIGHT, ANASTOMOSIS. 05/12/2023 10:19 AM VIDEO RECORDER MECHANIC Anesthesia Event [facility] [address] [place] [address] Shin Woods M.D. Marcus Tiwari RAjitNAjit, CCRN from Last 3 Months Allergies Active Allergy Reactions Criticality Noted Date Comments Amoxicillin-Pot Clavulanate Diarrhea Medium 05/27/2014 Atenolol Other (see comments) Medium 05/27/2014 pass out Blood-Group Specific Substance Other (see comments) 07/29/2014 Patient has a Non-Specific Antibody. Please draw 2 purple top tubes and 1 red top tube for all Type and Screen and Type and Crossmatch Red Blood Cell product orders. Blood products may be delayed. Pt has no idea what this means Clavulanic Acid Diarrhea Low 10/03/2022 Lisinopril Cough Medium 05/27/2014 Meperidine Nausea Only Medium 05/27/2014 Terazosin Other (see comments) High 02/01/2023 Trospium Other (see comments) 02/01/2023 Medications Medication Sig Dispensed Refills Start Date End Date Status levothyroxine (SYNTHROID, LEVOTHROID) 100 mcg tablet Take 100 mcg by mouth every morning before breakfast. With 125 mcg for total dose 225 mcg 05/27/2014 Active levothyroxine (SYNTHROID, LEVOTHROID) 125 mcg tablet Take 125 mcg by mouth every morning before breakfast. With 100 mcg for total dose 225 mcg 05/27/2014 Active glucosamine HCl/chondroitin scanlon (GLUCOSAMINE-CHO NDROITIN ORAL) Take 3 tablets by mouth daily. 400 mg 08/26/2016 Active pravastatin (PRAVACHOL) 80 mg tablet Take 1 tablet by mouth at bedtime. 11/24/2015 Active tamsulosin (FLOMAX) 0.4 mg 24 hr capsule Take 2 capsules by mouth at bedtime. 05/27/2014 Active allopurinol (ZYLOPRIM) 300 mg tablet Take 300 mg by mouth daily. Active pantoprazole (PROTONIX) 40 mg EC tablet Take 40 mg by mouth every morning before breakfast. Active acetaminophen (TYLENOL) 500 mg tablet Take 2 tablets (1,000 mg total) by mouth 4 (four) times a day. 2022 Active DULoxetine (CYMBALTA) [address] capsule Take 1 capsule (30 mg total) by mouth 2 (two) times a day. 60 capsule 2022 Active dilTIAZem CD (CARDIZEM CD/CARTIA XT) 240 mg 24 hr capsule Take 240 mg by mouth 2 (two) times a day. Started 12/29/2022 Active sodium bicarbonate 650 mg tablet Take 2 tablets (1,300 mg total) by mouth 3 (three) times a day. 03/07/2023 Active DME Bi-level PAPIndications:O bstructive Sleep Apnea Adult DME Order 1 each 04/19/2023 Active metFORMIN (GLUCOPHAGE) 1,000 mg tablet Take 1 tablet (1,000 mg total) by mouth 2 (two) times a day with meals. 04/27/2023 Active nystatin (NYSTOP) 100,000 unit/gram powder Apply 1 Application topically 3 (three) times a day as needed (rash/skin irritation). Apply to skin folds for yeast infection. 15 g 04/27/2023 Active spironolactone (ALDACTONE) 25 mg tablet Take 1 tablet (25 mg total) by mouth daily. 04/27/2023 Activ e calcium carbonate (TUMS) 500 mg (200 mg calcium) chewable tablet Chew 1 tablet (200 mg of calcium total) daily as needed for heartburn or indigestion. 04/27/2023 Active Lactobacillus rhamnosus GG (CULTURELLE) 10-15 billion cell capsule Take 1 capsule by mouth 2 (two) times a day. 04/27/2023 Active magnesium oxide (MAG-OX) 400 mg (241.3 mg magnesium) tablet Take 1 tablet (400 mg total) by mouth 3 (three) times a day before meals. Low magnesium 04/27/2023 Active insulin aspart U-100 (NovoLOG FlexPen) 100 unit/mL (3 mL) injection Inject 0-7 Units under the skin 3 (three) times a day. Insulin Scale: Mild Correction Scale 180 - 219: 2 units 220 - 259: 3 units 260 - 299: 4 units 300 - 339: 5 units 340 - 379: 6 units 380 - 399: 7 units Greater than 399: Call service writing Insulin orders 04/27/2023 Active losartan (COZAAR) 100 mg tablet Take 0.5 tablets (50 mg total) by mouth daily. 05/02/2023 Active psyllium, with aspartame, (METAMUCIL) 3.4 gram packet Take 1 packet by mouth daily as needed (Multiple loose stools or diarrhea.). Hold for 2 weeks after surgery. 05/16/2023 Active sennosides-docus ate sodium (SENOKOT-S) 8.6-50 mg per tablet Take 2 tablets by mouth 2 (two) times a day as needed for constipation. Hold for 2 weeks after surgery. Do not take if having diarrhea. 05/16/2023 Active polyethylene glycol (MIRALAX) 17 gram/dose oral powder Take 17 g by mouth daily as needed for constipation. Dissolve each 17 g dose in 240 mL (8 ounces) of beverage. Active lidocaine (LIDODERM) 5 % adhesive patch,medicated Place 1 patch on the skin daily. Apply to lower back. Active menthol 10 % cream Apply 1 Application topically as needed. Active pregabalin (LYRICA) 300 mg capsule Take 1 capsule (300 mg total) by mouth 2 (two) times a day. 60 capsule 06/02/2023 Active furosemide (LASIX) 20 mg tablet Take 2 tablets (40 mg total) by mouth 2 (two) times a day. 06/15/2023 Active insulin glargine 100 unit/mL (3 mL) injection Inject 32 Units under the skin at bedtime. Pharmacy select brand per patient insurance/preference. 06/15/2023 Active Additional Information Patient taking differently: 34 Unitssubcutaneous Daily at bedtime, Pharmacy select brand per patient insurance/preference., Reported on 07/05/2023 ferrous sulfate 325 mg (65 mg iron) tablet Take 1 tablet (65 mg of iron total) by mouth daily. 90 tablet 06/20/2023 Active emollient cream, VANICREAM, Apply 1 Application topically 2 (two) times a day as needed. Apply to right heel. Active Active Problems Problem Noted Date Diagnosed Date Malignant Neoplasm Of Colon 06/20/2023 Malignant Neoplasm Of Cecum 06/20/2023 Nodules Pulmonary Multiple 06/20/2023 Malignant Neoplasm Of Sigmoid Colon 06/20/2023 Repeated Falls 05/11/2023 Edema Leg Chronic 05/02/2023 Hypomagnesemia 04/27/2023 Tubular Adenoma Colon Personal History Overview: 01/31/23 - colonoscopy: In the cecum, a 3 mm polyp was noted and not resected. In the transverse colon, 9 3-8 mm sessile and semi pedunculated polyps were noted and resected (tubular adenomas). In the descending colon, 3 semi pedunculated 5-7 mm polyps were noted and resected (tubular adenomas). Two 3 mm sessile polyps were noted in the descending colon and were not resected. Weakness General 02/20/2023 Last Assessment & Plan: Continue with occupational therapy and physical therapy Malignant Neoplasm Of Colon Ascending 02/03/2023 Overview: 01/31/23 - colonoscopy: large, ulcerated, nonobstructive mass in the proximal ascending colon which was biopsied. Pathology demonstrated moderately differentiated adenocarcinoma with intact DNA mismatch repair. In addition, a 25 mm semi-pedunculated polyp was noted in the sigmoid colon which was resected. Pathology demonstrated moderately differentiated adenocarcinoma. Colonoscopy 01/2023 colon cancer, multiple polyps, repeat in 1 year after surgery Last Assessment & Plan: Oncology consultation scheduled for 06/20/23 Debility 10/22/2022 Tachycardia Atrial Paroxysmal 10/11/2022 Overview: 01/07 Holter monitor: underlying rhythm of sinus with intermittent junctional beats. The heart rate 61-123 beats per minute with an average of 82 beats per minute. There were 218 VPCs with a VPC burden less than 1%. There were 18,044 APCs with an APC burden of 19% including multiple atrial runs from 3 to 150 beats. 02/06 - day mobile cardiac intellectual property lawyer: underlying rhythm of sinus, intermittent sinus arrhythmia, and rare accelerated junctional rhythm. Heart rate 52-113 beats per minute with an average of 70 beats per minute. The VPC burden was 1.65% and the APC burden was 2.27% with the longest run of atrial tachycardia being 40 beats. Currently rate controlled on diltiazem 240 mg twice daily (increased from 120 BID 02/07) Chronic Idiopathic Constipation 10/10/2022 Overview: Uses MiraLax to rescue Anemia Iron Deficiency 10/10/2022 Overview: 10/08 1 unit RBC, 2 Venofer infusion 200 mg 02/07 2 unit RBC 03/10 1 unit RBC 04/09 1 unit RBC 03/19/2023-200 mg Venofer 03/21/2023-200 mg Venofer 03/25/2023-400 mg Venofer Last Assessment & Plan: Last hemoglobin was 8.5, recheck ordered for next week Diabetes Mellitus Type 2 Peripheral Neuropathy 0 10/08/2022 Overview: Diabetes back to the mid Initially on orals, then oral and insulin Known decreased feeling at the feet A1c 03/10 6.8 (though anemia) Last Assessment & Plan: Increase Lantus to 32 units at bedtime Decline Functional Status 10/08/2022 Radiculopathy Lumbar 10/07/2022 10/07/2022 Depression Major Recurrent 08/20/202210/07 Overview: On duloxetine Meets with a counselor Apnea Sleep Obstructive 04/02/2019 Overview: 2015 -polysomnography showed severe obstructive sleep apnea. In 120 minutes of sleep, the apnea-hypopnea index was 93 per hour. Snoring was grade 4/4. He desaturated to 80%. CPAP did not resolve, BiPAP did resolve the obstructive apnea. Nephrolithiasis 03/12/2019 Stone Kidney And Ureteral 03/12/2019 Stones Uric Acid 08/01/2018 Hyperlipidemia 01/18/2018 10/07/2022 Chronic Kidney Disease (CKD) , Stage 3a Glomerular Filtration Rate (GFR) 45 To 59 07/16/2015 Overview: 2022-GFR = 47-50 Morbid Obesity Body Mass Index 50.0-59.9 Adult 0 07/16/2015 Hypertensive Chronic Kidney Disease (CKD) Stage 3a Glomerular Filtration Rate (GFR) 45 To 59 07/16/2015 Last Assessment & Plan: Blood pressures reviewed and within normal limits. Continue with diltiazem, Lasix 40 mg daily, losartan 100 mg daily, spironolactone 25 mg daily Stenosis Spinal Lumbar With Neurogenic Claudicat ion 06/18/2015 Overview: 02/20/23 - MR Lumbar spine showed large right subarticular zone disc extrusion at L2-L3 level with inferior migration, with advanced spinal canal narrowing and impingement on the right L3 nerve root; advanced spinal canal narrowing at L3-L4 and L4-L5 with crowding/compression of the cauda equina nerve roots, similar to prior; multilevel neural foraminal narrowing as described, with advanced narrowing on the right at L4-L5 and bilaterally at L5-S1. Severe central canal narrowing at L3-4, L4-5, moderate at L2-3 and L5-S1. Multilevel foraminal narrowing, please see description below. FINDINGS: Central canal narrowing: severe at L3-4, L4-5, moderate at L2-3, L5-S1 and mild to moderate at L1-2, due to a combination of congenitally short pedicles, osteophyte disc complex, facet and ligamentous hypertrophy. Superimposed lateral recess narrowing at right L1-2, and bilaterally at L3-4. Facet arthropathy at all lumbar levels, prominent at and inferior to L3-4. Foraminal narrowing: Severe at right L5-S1, moderate to severe at right L4-5, left L5-S1, moderate at right L3-4, due to a combination of foraminal disc extension, facet and ligamentous hypertrophy. Mild retrolisthesis of L1 on L2, L2 on 3 and L3 on 4. Electronically signed by: Kimi Manzano M.D. [phone] 10-Aug-2016 12:45 Failed Gabapentin in 12/2022. Switched to Lyrica. Last Assessment & Plan: Did have consult with Orthopedics. They plan to do a spinal injection in the near future Hypothyroidism 01/26/2015 10/07/2022 Overview: Has been on more 200 mcg for decades to control thyroid\ Last TSH normal Nodule Prostate 04/08/2014 10/07/2022 Resolved Problems Problem Noted Date Diagnosed Date Resolved Date COVID-19 Infection 05/18/2023 Diabetes Mellitus Type 2 Wit h Diabetic Polyneuropathy 05/02/2023 05/18/2023 Bacteremia 04/24/2023 04/26/2023 Urinary Tract Infection Site Not Specified 03/05/2021 04/26/2023 Pyuria 03/05/2021 04/26/2023 Hematuria 03/05/2021 04/06/2023 Immunizations Name Administration Dates Next Due H1N1 Inj 04/04/2009 HepA / HepB 04/02/2019(Deferred: Other - will check with pcp) HepA, Unspecified 04/02/2019(Deferred: Other) HepB, Unspecified 04/02/2019(Deferred: Other) Influenza Split 02/18/2014 Influenza TIV (IM) 01/11/2018, 3,12/27/2011,2011,12/30/2009,12/24/2008,02/21/2007,1 04/18/2005 Influenza high dose QV(65 ye ars or older) (PF) 02/18/2023 Influenza, Quadrivalent, Adj uvanted, Preservative Free 03/08/2022,07/29/2021,03/04/2020 Influenza, Unspecified 01/16/2014 PCV13 04/02/2019(Deferred: Other - will check with pcp) PCV20 10/05/2021 PPSV23(Discontinued) 05/29/2007 Pneumococcal, Unspecified 04/02/2019(Deferred: O ther),04/19/2011 RZV (SHINGRIX) 04/06/2023(Deferred: Other - will check with pcp) SARS-COV-2 (COVID-19) - MODE RNA (12 YEARS AND OLDER) [id number] 02/18/2023 Td (Adult), adsorbed 04/02/2019(Deferred : Other - will check with pcp) Tdap 07/29/2021,12/24/2008,04/18/2007 Zoster, Unspecified 04/02/2019(Deferred: Other) influenza high dose (65 year s or older) (PF) 03/05/2019 influenza vaccine quad (FLUZONE/FLUARIX) (6 months and older)(PF) 03/07/2017,03/15/2016,01/20/2015 Social History Tobacco Use Types Packs/Day Years Used Date Smoking Tobacco: Former Cigarettes 2 18 0 09/16/1966 - 06/30/1984 Passive Smoke Exposure: Past Smokeless Tobacco: Never Tobacco Cessation:Counseling Given: Not Answered Alcohol Use Standard Drinks/Week Comments Not Currently 0 (1 standard drink = 0.6 oz pur e alcohol) rarely, one or two a year [facility] tu.nrities Answer Date Recorded In the past 12 months has e [employer], gas, oil, or water [employer] threatened to shut off services in your home? No 05/12/2023 Humiliation, Afraid, Rape, and Kick questionnair e Answer Date Recorded Within the last year, have y ou been afraid of your partner or ex-partner? No 05/12/2023 Within the last year, have y ou been humiliated or emotionally abused in other ways by your partner or ex-partner? No Within the last year, have y ou been kicked, hit, slapped, or otherwise physically hurt by your partner or ex-partner? No 05/12/2023 Within the last year, have y ou been raped or forced to have any kind of sexual activity by your partner or ex-partner? No 05/12/2023 Social Connection and Isolat ion Panel [NHANES] Answer Date Recorded In a typical week, how many times do you talk on the phone with family, friends, or neighbors? More than three times a week 12/31/2021 How often do you get togethe r with friends or relatives? Once a week 12/31/2021 How often do you attend chur ch or islam services? More than 4 times per year 12/31/2021 Do you belong to any clubs o r organizations such as rastafari groups, unions, fraternal or athletic groups, or school groups? Yes 12/31/2021 How often do you attend meet ings of the clubs or organizations you belong to? Never 12/31/2021 Are you , , di vorced, , never , or living with a partner? 12/31/2021 AUDIT-C Answer Date Recorded Q1: How often do you have a drink containing alc ohol? Monthly or less 12/31/2021 Q2: How many drinks containi ng alcohol do you have on a typical day when you are drinking? 1 or 2 12/31/2021 Q3: How often do you have si x or more drinks on one occasion? Never 12/31/2021 Overall Financial Resource Strain (CARDIA) Answe r Date Recorded How hard is it for you to pa y for the very basics like food, housing, medical care, and heating? Not hard at all 02/11/2023 [facility] - Occupational Stress Questionnaire Answer Date Recorded Do you feel stress - tense, restless, nervous, or anxious, or unable to sleep at night because your mind is troubled all the time - these days? Only a little 12/31/2021 Exercise Vital Sign Answer Date Recorde d On average, how many days pe r week do you engage in moderate to strenuous exercise (like a brisk walk)? 0 days 02/10/2023 On average, how many minutes do you engage in exercise at this level? 0 min 02/10/2023 Hunger Vital Sign Answer Date Recorded Within the past 12 months, y ou worried that your food would run out before you got the money to buy more. Never true 05/12/19 24 Within the past 12 months, t he food you bought just didn't last and you didn't have money to get more. Never true 05/12/2023 PRAPARE - Transportation Answer Date Re corded In the past 12 months, has l ack of transportation kept you from medical appointments or from getting medications? No 04/19 In the past 12 months, has l ack of transportation kept you from meetings, work, or from getting things needed for daily living? No 05/12/2023 Nutrition Answer Date Recorded On average, how many serving s of fruits and vegetables do you eat per day (serving size is equal to 1 cup or approximately the size of a tennis ball)? 3-5 02/10/2023 Dental Answer Date Recorded Dental: Regular Dentist Yes 06/13/19 Employment Answer Date Recorded Employment status Retired 02/10/2023 Housing Stability Answer Date Recorded What is your living situation today? I have a [facility] place to live 05/12/2023 Education Answer Date Recorded What is the highest level of school you have completed or the highest degree you have received? Bachelor's degree (e.g., BA, AB, BS) 09/20/2018 Sex and Gender Information Value Date Recorded Sex Assigned at Male 06/14/2018 8:36 PM VIDEO RECORDER MECHANIC Gender Identity Male 10/11/2022 10:17 PM CDT Sexual Orientation Choose not to disclose 2019 1:31 PM VIDEO RECORDER MECHANIC Last Filed Vital Signs Vital Sign Reading Time Taken Comments Blood Pressure 116/49 08/08/2023 2:16 PM CDT Pulse 93 08/08/2023 2:16 PM CDT Temperature 36.8 ??C (98.2 ??F) 07/05/2023 9:05 AM CD T Respiratory Rate 22 07/05/2023 9:05 AM CDT Oxygen Saturation 96% 08/08/2023 2:16 PM CDT Inhaled Oxygen Concentration - - Weight 189 kg (415 lb 12.8 oz) 07/05/2023 9:05 A M CDT Height 185 cm (6' 0.84) 05/11/2023 2:15 PM VIDEO RECORDER MECHANIC Body Mass Index 55.11 05/11/2023 2:15 PM VIDEO RECORDER MECHANIC Plan of Treatment Not on file Medical Devices Explanted Type Area Truckload Owner Operator Device Identifier Shelf Expiration Date Model / Serial / Lot Stnt Uret Inl 6fx26 - [id number] Implanted:Qty : 1 on 04/04/2019 by Julian Mayfield M.D. at [facility] Ureteral Stent Right: Ureter [employer]ard [id number] 01/25/2022 [id number] / / [id number] Stnt Uret Inl 7fx26 - [id number] Implanted:Qty : 1 on 03/12/2019 by Ashkan Villanueva M.D. at [facility] Explanted: by Keith Lovelace APRN, C.N.P., M.S.N. 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 Routine 06/01/2023 12:00 AM VIDEO RECORDER MECHANIC MISCELLANEOUS SENT OUT LAB TEST Routine 06/01/2023 12:00 AM VIDEO RECORDER MECHANIC Malignant Neoplasm Of Colon Ascending (HCC) GLUCOSE POCT, B Routine 05/16/2023 9:35 AM VIDEO RECORDER MECHANIC GLUCOSE POCT, B Routine 05/15/2023 9:10 PM VIDEO RECORDER MECHANIC GLUCOSE POCT, B Routine 05/15/2023 4:41 PM VIDEO RECORDER MECHANIC GLUCOSE POCT, B Routine 05/15/2023 2:04 PM VIDEO RECORDER MECHANIC SARS COV-2 RNA, PCR, VARIES Routine 05/15/2023 9:10 AM VIDEO RECORDER MECHANIC REMOTE OXIMETRY MONITORING CONT. Routine 05/15/2023 8:00 AM VIDEO RECORDER MECHANIC GLUCOSE POCT, B Routine 05/15/2023 7:46 AM VIDEO RECORDER MECHANIC GLUCOSE POCT, B Routine 05/14/2023 8:33 PM VIDEO RECORDER MECHANIC REMOTE OXIMETRY MONITORING CONT. Routine 05/14/2023 8:01 PM VIDEO RECORDER MECHANIC GLUCOSE POCT, B Routine 05/14/2023 4:04 PM VIDEO RECORDER MECHANIC GLUCOSE POCT, B Routine 05/14/2023 1:51 PM VIDEO RECORDER MECHANIC GLUCOSE POCT, B Routine 05/14/2023 12:13 PM VIDEO RECORDER MECHANIC REMOTE OXIMETRY MONITORING CONT. Routine 05/14/2023 8:01 AM VIDEO RECORDER MECHANIC GLUCOSE POCT, B Routine 05/14/2023 7:33 AM VIDEO RECORDER MECHANIC GLUCOSE POCT, B Routine 05/13/2023 10:05 PM VIDEO RECORDER MECHANIC REMOTE OXIMETRY MONITORING CONT. Routine 05/13/2023 8:00 PM VIDEO RECORDER MECHANIC GLUCOSE POCT, B Routine 05/13/2023 3:10 PM VIDEO RECORDER MECHANIC REMOTE OXIMETRY MONITORING CONT. Routine 05/13/2023 8:01 AM VIDEO RECORDER MECHANIC GLUCOSE POCT, B Routine 05/13/2023 7:52 AM VIDEO RECORDER MECHANIC GLUCOSE POCT, B Routine 05/13/2023 3:55 AM VIDEO RECORDER MECHANIC REMOTE OXIMETRY MONITORING CONT. Routine 05/13/2023 12:51 AM VIDEO RECORDER MECHANIC REMOTE OXIMETRY MONITORING CONT. Routine 05/13/2023 12:51 AM VIDEO RECORDER MECHANIC REMOTE OXIMETRY MONITORING CONT. Routine 05/13/2023 12:51 AM VIDEO RECORDER MECHANIC GLUCOSE POCT, B Routine 05/12/2023 8:33 PM VIDEO RECORDER MECHANIC HIV-1/HIV-2 AB RAPID PT SOURCE, B STAT 05/12/2023 5:44 PM VIDEO RECORDER MECHANIC HIV-1/-2 AG AND AB PS, PLASMA STAT 05/12/2023 5:44 PM VIDEO RECORDER MECHANIC HBS ANTIGEN PATIENT SOURCE STAT 05/12/2023 5:44 PM VIDEO RECORDER MECHANIC HCV RNA PT SOURCE, S STAT 05/12/2023 5:44 PM VIDEO RECORDER MECHANIC GLUCOSE POCT, B Routine 05/12/2023 4:32 PM VIDEO RECORDER MECHANIC MAYOCOMPLETE CRC PANEL Routine 05/12/2023 3:47 PM VIDEO RECORDER MECHANIC GLUCOSE POCT, B Routine 05/12/2023 1:47 PM VIDEO RECORDER MECHANIC ADULT OXYGEN THERAPY Routine 05/12/2023 1:29 PM VIDEO RECORDER MECHANIC SURGICAL PATHOLOGY, FROZEN LAB Routine 05/12/2023 12:49 PM VIDEO RECORDER MECHANIC Malignant Neoplasm Of Colon Ascending (HCC) GLUCOSE POCT, B Routine 05/12/2023 11:26 AM VIDEO RECORDER MECHANIC LDA ANE ARTERIAL LINE INSERTION Routine 05/12/2023 10:45 AM VIDEO RECORDER MECHANIC OH ARTL CATH/CNULA MONITOR PERC Routine 05/12/2023 10:45 AM VIDEO RECORDER MECHANIC LDA ANE ENDOTRACHEAL AIRWAY Routine 05/12/2023 10:31 AM VIDEO RECORDER MECHANIC LAPAROSCOPIC COLECTOMY RIGHT WITH ANASTOMOSIS 05/12/2023 9:59 AM VIDEO RECORDER MECHANIC Malignant Neoplasm Of Colon Ascending (HCC) GLUCOSE POCT, B Routine 05/12/2023 9:07 AM VIDEO RECORDER MECHANIC HEMOGLOBIN A1C, B Routine 05/11/2023 3:1 [address] ABDOMEN PELVIS WITH IV CONTRAST RAD - Routine (most inpatients and all outpatients) 04/18/2023 2:12 PM VIDEO RECORDER MECHANIC THYROID-STIMULATING HORMONE-SENSITIVE (S-TSH) STAT 02/20/2023 2:34 AM VIDEO RECORDER MECHANIC EXTI LIPID PANEL W REFLEX MEASURED LDL Routine 10/01/2022 1:35 PM CDT ALBUMIN, 24 HR, U Routine 08/13/2015 10:01 AM CDT from Last 3 Months or Most Recently Relevant to Health Maintenance Results * FL Lumbar Spine Transforaminal Epidural Injection Right (08/08/2023 2:08 PM CDT) Impressions [id number] - 08/08/2023 2:43 PM CDT Fluoroscopically-guided transforaminal epidural steroid injection. NR Narrative [id number] - 08/08/2023 2:43 PM CDT EXAM: FL LUMBAR SPINE TRANSFORAMINAL EPIDURAL INJECTION RIGHT PROCEDURE: ??Fluoroscopically-guided Right L3 Transforaminal Epidural Steroid Injection Pain Score: Pre-procedural pain was rated: ??4/10 ?? Post-procedural pain was rated: ??2/10 ?? Medications: Steroid: 10 mg dexamethasone Local anesthetic: ??20 mg 2% lidocaine INDICATION: ??The patient reports the current pain syndrome to be of >1 year duration and presents today for a new injection. TECHNIQUE: History and pain pattern reviewed. Patient has long-standing low back with radicular symptoms involving the right lower extremity which is of unclear dermatomal pattern but is felt to best approximate that of an L3 distribution. Prior right L4 injection did not provide significant relief of his right lower extremity radicular symptoms. CT lumbar spine was reviewed which demonstrates multilevel lumbar spondylosis including advanced canal stenosis at L3-L4. Due to patient comfort purposes, the patient could only be positioned within the left lateral decubitus position. A right L3 transforaminal epidural steroid injections requested and performed. ?? Using usual sterile technique, fluoroscopic guidance, and local anesthesia, a 7 inch 22-gauge spinal needle was advanced into the neural foramen using an infraneural approach. With final needle tip position, a small amount of iodinated contrast confirmed equal peripheral and central epidural flow without intrathecal uptake and with anteroposterior distribution which was not specifically assessed. Transient vascular uptake was not observed with final needle position. A test dose of preservative free lidocaine was administered. Following 2 minutes, there were no central neurologic changes. Dexamethasone was deposited in this location. The needle was cleared with lidocaine and removed. The patient experienced no complication. PREPROCEDURE: ??Patient seen and evaluated. Allergies, pertinent medications, and history reviewed. Discussed risks (including, but not limited to, bleeding, infection, nerve injury, and paralysis), benefits, alternatives for procedure, and obtained informed consent. The side and site of the procedure were marked, when applicable, at the time of consent. Patient understands information and questions answered. Immediately prior to starting the procedure, in the presence of the assisting personnel, procedural pause was conducted to verify correct patient identity and verification of procedure to be performed, and as applicable, correct side and site, correct patient position, availability of implants, special equipment, or special requirements, and all image and specimen identification data. The roles and responsibilities of care team members, residents, and fellows were discussed. Procedure Note Wilner Casas M.D. - 08/08/2023 EXAM: FL LUMBAR SPINE TRANSFORAMINAL EPIDURAL INJECTION RIGHT PROCEDURE: Fluoroscopically-guided Right L3 Transforaminal EpiduralSteroid Injection Pain Score: Pre-procedural pain was rated: 4/10 Post-procedural pain was rated: 2/10 Medications: Steroid: 10 mg dexamethasone Local anesthetic: 20 mg 2% lidocaine INDICATION: The patient reports the current pain syndrome to be of >1year duration and presents today for a new injection. TECHNIQUE: History and pain pattern reviewed. Patient has long-standing low back withradicular symptoms involving the right lower extremity which is of uncleardermatomal pattern but is felt to best approximate that of an [id number]. Prior right L4 injection did not provide significant relief of his right lower extremity radicularsymptoms. CT lumbar spine was reviewed which demonstrates multilevellumbar spondylosis including advanced canal stenosis at L3-L4. Due topatient comfort purposes, the patient could only be positioned within the left lateral decubitus position. Aright L3 transforaminal epidural steroid injections requested andperformed. Using usual sterile technique, fluoroscopic guidance, and localanesthesia, a 7 inch 22-gauge spinal needle was advanced into the neuralforamen using an infraneural approach. With final needle tip position, asmall amount of iodinated contrast confirmed equal peripheral and central epidural flow without intrathecal uptake andwith anteroposterior distribution which was not specifically assessed.Transient vascular uptake was not observed with final needle position. Atest dose of preservative free lidocaine was administered. Following 2 minutes, there were no centralneurologic changes. Dexamethasone was deposited in this location. Theneedle was cleared with lidocaine and removed. The patient experienced nocomplication. PREPROCEDURE: Patient seen and evaluated. Allergies, pertinentmedications, and history reviewed. Discussed risks (including, but notlimited to, bleeding, infection, nerve injury, and paralysis), benefits,alternatives for procedure, and obtained informed consent. The side and site of the procedure were marked, whenapplicable, at the time of consent. Patient understands information andquestions answered. Immediately prior to starting the procedure, in thepresence of the assisting personnel, procedural pause was conducted to verify correct patient identity andverification of procedure to be performed, and as applicable, correct sideand site, correct patient position, availability of implants, specialequipment, or special requirements, and all image and specimen identification data. The roles andresponsibilities of care team members, residents, and fellows werediscussed. IMPRESSION: Fluoroscopically-guided transforaminal epidural steroid injection. NR Mario Alberto Navarro P.A.-C., M.S. IMG FLUO ROSCOPY PROCEDURES Performing Organization Address [facility] Co de Phone Number [id number] NA * [employer] (06/01/2023 12:00 AM VIDEO RECORDER MECHANIC) Test Name [employer] Custom Panel 06/09/2023 10:53 AM VIDEO RECORDER MECHANIC INVC Result SEE COMMENT 06/09/2023 11:10 AM [facility] INV Comment: For final report, select Lab-Send Out Lab Results hyperlink below. 06/01/2023 06/09/2023 10: 53 AM VIDEO RECORDER MECHANIC Ean Huizar M.D. LAB [facility] ORDERABLE S [employer] [address] [place] [address] Fwd: Power [address] [place] [id number] * [id number] Net 263 Custom Panel - Miscellaneous Test (06/01/2023 12:00 AM VIDEO RECORDER MECHANIC) Test Name [employer] Custom Panel 06/09/2023 10:56 AM VIDEO RECORDER MECHANIC HLS Saliva (Mouth) 06/01/2023 06/09/2023 10:53 AM VIDEO RECORDER MECHANIC Ean Huizar M.D. LAB MISC ORDERABLE S Performing Organization Address City/[facility]/ZIP Co de Phone Number [facility] [address] [place] [address], [facility] HLS [facility] [address] [place] [address] * (ABNORMAL) Glucose, POCT (05/16/2023 9:35 AM VIDEO RECORDER MECHANIC) Only the most recent of19 resultswithin the time period is included. Pathologist [facility] Glucose, POCT, B 151(H) 70 - 140 mg/dL 05/16/2023 10:04 AM VIDEO RECORDER MECHANIC PCDE Site Capillary 05/16/2023 10:04 AM VIDEO RECORDER MECHANIC PCDE Last Intake > 4 hours 05/16/2023 10:04 AM VIDEO RECORDER MECHANIC PCDE Blood 05/16/2023 9:35 AM VIDEO RECORDER MECHANIC 05/16/2023 10:05 AM VIDEO RECORDER MECHANIC Unknown Provider LAB POCT ORDERABLES- MANUAL Performing Organization Address City/[facility]/ZIP Co de Phone Number [facility] [address] [place] [address], [facility] PCDE [facility] POC [address] [place] [address] * (ABNORMAL) SARS CoV-2 RNA, PCR Asymptomatic (05/15/2023 9:10 AM VIDEO RECORDER MECHANIC) SARS CoV-2 RNA, PCR, Source Swab, Nasopharynx 05/15/2023 11:55 PM VIDEO RECORDER MECHANIC SDS SARS CoV-2 RNA, PCR Detected(A) Undetected 05/15/2023 11:55 PM VIDEO RECORDER MECHANIC SDS Comment: SARS-CoV-2 RNA present. ----ADDITIONAL INFORMATION---- This RT-PCR test has received Emergency Use Authorization (EUA) by the U.S. Food and Drug Administration and is used per [facility] cross worker's instructions. Performance characteristics were verified by [facility] in a manner consistent with CLIA requirements. Visit the CDC website: https://www.cdc.gov/coronavirus/ for the most recent guidelines on Coronavirus testing. Fact Sheet for Healthcare Providers: https://www.fda.gov/media/209461/download Fact Sheet for Patients: https://www.fda.gov/media/448546/download Swab (Nasopharynx) 05/15/2023 9:10 AM VIDEO RECORDER MECHANIC 05/15/2023 12:03 PM VIDEO RECORDER MECHANIC Bonny Swanson B.Ch., Lyle LAB M ICROBIOLOGY - GENERAL ORDERABLES Performing Organization Address [facility] Co de Phone Number [facility] [address] [place], [place] [id number] [place] [address] [address]. [address] [facility] [place] [address] * HIV-1/-2 Ag and Ab PS, Plasma (05/12/2023 5:44 PM VIDEO RECORDER MECHANIC) [facility] HIV-1/-2 Ag and Ab PS, P Negative Negative 05/12/2023 8:32 PM VIDEO RECORDER MECHANIC [facility] Comment: Negative result does not rule out HIV infection. If exposure to HIV infection occurred <14 days ago, contact the laboratory to request addition of HIV-1/HIV-2 RNA Detection Patient Source, Plasma (HEP12). Blood (Blood, Venous) 05/12/2023 5:44 PM VIDEO RECORDER MECHANIC 05/12/2023 7:49 PM VIDEO RECORDER MECHANIC Bonny Swanson B.Ch., Lyle LAB M ICROBIOLOGY - BLOOD ORDERABLES Performing Organization Address [facility] Co de Phone Number [facility] [address] [place] [address] [facility] [address] [place] [address] * HCV RNA Pt Source, Serum (05/12/2023 5:44 PM VIDEO RECORDER MECHANIC) [facility] HCV RNA Pt Source, S Undetected Undetected IU/mL 05/12/2023 11:11 PM VIDEO RECORDER MECHANIC [facility] Comment: Result in log IU/mL is Undetected. ----ADDITIONAL INFORMATION---- The quantification range of this assay is 15 to 100,000,000 IU/mL (1.18 log to 8.00 log IU/mL). Testing was performed using the sagar HCV test ([employer] Blood (Blood, Venous) 05/12/2023 5:44 PM VIDEO RECORDER MECHANIC 05/12/2023 7:53 PM VIDEO RECORDER MECHANIC Bonny Swanson B.Ch., MMarleny LAB M [facility] ORDERABLES Performing Organization Address City/[facility]/ZIP Co de Phone Number [facility] [address] [place] [address] [facility] [address] [place] [place] [address] * HIV-1/HIV-2 Ab Rapid Pt Source (05/12/2023 5:44 PM VIDEO RECORDER MECHANIC) [facility] HIV-1/HIV-2 Ab Rapid Pt Source, B Negative Negative 05/12/2023 6:19 PM VIDEO RECORDER MECHANIC [facility] Blood (Blood, Venous) 05/12/2023 5:44 PM VIDEO RECORDER MECHANIC 05/12/2023 5:49 PM VIDEO RECORDER MECHANIC Bonny Swanson B.Ch., MMarleny LAB M [facility] BLOOD ORDERABLES Performing Organization Address City/[facility] Co de Phone Number [facility] [address] [place] [address], [place] METH [facility] [address] [place] [address] * HBs Antigen Patient Source (05/12/2023 5:44 PM VIDEO RECORDER MECHANIC) [facility] HBs Antigen Patient Source, S Negative Negative 05/12/2023 9:55 PM VIDEO RECORDER MECHANIC [facility] Blood (Blood, Venous) 05/12/2023 5:44 PM VIDEO RECORDER MECHANIC 05/12/2023 7:49 PM VIDEO RECORDER MECHANIC Bonny Swanson B.Ch., M.D. LAB M ICROBIOLOGY - BLOOD ORDERABLES [facility] [address] [place] [address] [facility] [address] [place] [address] * [facility] Colorectal Cancer Panel, Next-Generation Sequencing, Tumor (05/12/2023 3:47 PM VIDEO RECORDER MECHANIC) Result Provided diagnosis: colorectal adenocarcinoma Microsatellite Instability (MSI) status: Stable (RODO) The following CLINICALLY RELEVANT VARIANTS were detected: Gene: APC DNA Change: c.4348C>T (Exon 16) Amino Acid Change: p.R1450* ([id number]*) Variant Allele Frequency: 33% Gene: APC DNA Change: c.2319del (Exon 16) Amino Acid Change: p.S729Lru*4 (Ich940Hgloh*4) Variant Allele Frequency: 31.4% Gene: KRAS DNA Change: c.38G>A (Exon 2) Amino Acid Change: p.G13D (Iog78Cfb) Variant Allele Frequency: 55.6% The following VARIANT OF UNCERTAIN SIGNIFICANCE was detected: Gene: MSH6 DNA Change: c.2374C>G (Exon 4) Amino Acid Change: p.L792V (Anz826Saa) Variant Allele Frequency: 16.4% No other reportable sequence variants were detected within the analyzed regions of the tested genes listed in the method description. 06/08/2023 1:38 PM VIDEO RECORDER MECHANIC DTL Additional Information CLINICAL TRIALS Possible clinical trials of benefit for this patient can be found at the following sites: 1) ClinicalTrials.gov: www.clinicaltrials. gov/ct2/search/adva nced 2) [facility]: [email or web address].[email or web address]/resear ch/clinical-trials/ 3) [facility] [place]: www.cancer.gov/clin icaltrials/search REFERENCE TRANSCRIPTS Sequence variant nomenclature is based on the following RefSeq accession numbers (build GRCh37 (hg19)):APC [id number], KRAS [id number] and MSH6 [id number]. 06/08/2023 1:38 PM VIDEO RECORDER MECHANIC DTL Specimen Tissue, Tumor 06/08/2023 1:38 PM VIDEO RECORDER MECHANIC DTL Tissue ID [id number] 06/08/2023 1:38 PM VIDEO RECORDER MECHANIC DTL Method Microscopic examination is performed by a pathologist to identify areas of tumor for enrichment by macrodissection. Next generation sequencing is performed to test for the presence of microsatellite instability and a mutation within all coding regions and exon/intron boundaries of the following 9 targeted genes: APC, BRAF, HRAS, KRAS, MLH1, MSH2, MSH6, NRAS, and PMS2. Variant nomenclature is based on build GRCh37 (hg19). For details about gene transcripts (RefSeq accession numbers), specific targeted regions of each gene, and additional information on this test, see www.[employer] [email or web address] [employer]. [employer] (Test ID [facility]). 06/08/2023 1:38 PM VIDEO RECORDER MECHANIC DTL Disclaimer This test cannot differentiate between somatic and germline alterations. Additional testing may be necessary to clarify the significance of results if there is a potential hereditary risk. DNA variants of uncertain significance may be identified. A negative result does not rule out the presence of a variant that may be present but below the limits of detection of this assay. The analytical sensitivity of this assay for sequence reportable alterations is 5% mutant allele frequency with a minimum coverage of 500X in a sample with at least 20% tumor content. Point mutations and small insertion/deletion mutations will be detected in the APC, BRAF, HRAS, KRAS, MLH1, MSH2, MSH6, NRAS, and PMS2 genes only. This test may detect single exon deletions but does not detect multi-exon deletions, duplications or genomic copy number variants. Variant allele frequency (VAF) is the percentage of sequencing reads supporting a specific variant divided by the total sequencing reads at that position. In somatic testing, VAF should be interpreted in the context of several factors including, but not limited to: tumor purity/heterogeneit y/copy number status (ploidy, gains/losses, loss of heterozygosity) and sequencing artifact/misalignme nt [PMID: [id number], PMID: 63169925]. This test cannot reliably determine if a variant identified in PMS2 exons 11-15 originated from PMS2 or the highly homologous pseudogene PMS2CL. In the instance that a reportable variant is detected in PMS2 exons 11-15, additional testing will be recommended in the patient report. Rare polymorphisms may be present that could lead to false-negative or false-positive results. The presence or absence of a variant may not be predictive of response to therapy in all patients. Test results should be interpreted in the context of clinical, tumor sampling, histopathological, and other laboratory data. If results obtained do not match other clinical or laboratory findings, contact the laboratory for discussion. Misinterpretation of results may occur if the information provided is inaccurate and/or incomplete. Reliable results are dependent on adequate specimen collection and processing. This test has been validated on cytology slides and formalin-fixed, paraffin-embedded tissues; other types of fixatives are discouraged. Improper treatment of tissues, such as decalcification, may cause PCR failure. This test was developed and its performance characteristics determined by [facility] in a manner consistent with CLIA requirements. This test has not been cleared or approved by the U.S. Food and Drug Administration. 06/08/2023 1:38 PM VIDEO RECORDER MECHANIC DTL Released By Maximino Sheppard, Ph.D. 06/08/2023 1:38 PM VIDEO RECORDER MECHANIC DTL Interpretation MSI: Stable (RODO) NO evidence of microsatellite instability was detected suggesting the presence of normal DNA mismatch repair function within the tumor. Current data suggest that advanced stage solid tumors with intact mismatch repair (RODO) are less likely to be responsive to treatment with immunotherapies such as anti-PD-1 therapies [PMID [id number], PMID 56585748]. The presence of intact mismatch repair (RODO) is considered to be an unfavorable prognostic factor for patients with colorectal cancer [PMID: 71050171]. These results decrease the likelihood but do not eliminate the possibility that this individual has Candelaria syndrome. These results do not rule out the possibility that this individual's tumor is due to an inherited defect in another gene not involved in DNA mismatch repair. A significant fraction of clinically defined Candelaria syndrome cases (30% or more) do not have defective DNA mismatch repair as the underlying genetic basis of their disease. Additionally, we cannot rule out the possibility that this tumor could represent a sporadic occurrence. If there is a strong personal or family history of Candelaria syndrome related cancers for this patient or if this individual has multiple tumors, consider microsatellite instability (MSI) and immunohistochemical staining (IHC) on a different tumor to further evaluate the possible role of defective DNA mismatch repair for this individual or family. A genetic consult may be of benefit. 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 Apc interacts with beta-catenin and controls signaling in the Wnt pathway, which helps regulate embryonic development and cell differentiation [PMID:56090125]. Inactivation of Apc results in the deregulation of Wnt signaling through beta-catenin [PMID:11060099]. In the absence of functional Apc, beta-catenin accumulates and is translocated to the nucleus, where it promotes the inhalation therapy aides teacher of genes promoting cellular proliferation [PMID:23178322]. APC mutations have been reported in 48-80% of colon samples [COSMIC, [employer]]. There are currently no known clinically approved therapies that specifically target APC mutations. 2) KRAS c.38G>A (p.G13D) (Exon 2) KRAS encodes a signaling protein member of the Burke family [PMID:92151514, PMID:99181846, PMID:64938525]. Activating KRAS alterations, mainly through mutations in exons 2, 3, and 4 (most commonly at codons G12, G13 and Q61), result in oncogenic activation of downstream signaling pathways, including the Jesus/MEK/ERK pathway [PMID:16497348, PMID:0795828]. KRAS mutations have been reported in 33-43% of colon samples [COSMIC, [employer]Portal [employer] Cancer Gen[employer]]. Current data suggests that the efficacy of EGFR-targeted therapies in colorectal cancer is limited to patients with tumors lacking an activating KRAS mutation [PMID:08732437, PMID:13506951]. VARIANT OF UNCERTAIN SIGNIFICANCE One variant of uncertain significance was detected. The variant was not observed at significant frequency in population germline/cancer somatic variant databases nor predicted to be functionally significant based on variant type/in silico algorithm results. Additionally, there was no convincing published evidence of cancer association. Therefore, the clinical significance of the detected variant is unknown. 06/08/2023 1:38 PM VIDEO RECORDER MECHANIC DTL 05/12/2023 3:47 PM VIDEO RECORDER MECHANIC 06/01/2023 1:15 PM VIDEO RECORDER MECHANIC Scooby Jacobs M.D. LAB GENETIC SANJAY ALVAREZ [facility] [address] [place] [address], [facility] DT [address] [place] [address] * Surgical Pathology, Frozen Lab (05/12/2023 12:49 PM VIDEO RECORDER MECHANIC) 05/18/2023 4:43 PM VIDEO RECORDER MECHANIC METH Participated in the Interpretation Candi Cantu M.D.-Pathology Fellow 05/18/2023 4:43 PM VIDEO RECORDER MECHANIC METH Report electronically signed by Carole RoaS., Ph.D. I verify that I have examined all relevant slides/materials for the specimen(s) and rendered or confirmed the diagnosis. 05/18/2023 4:43 PM VIDEO RECORDER MECHANIC METH Frozen Intraoperative Report A. ??Terminal ileum, cecum, and appendix, right hemicolectomy: ??Invasive moderate-poorly differentiated adenocarcinoma, forming a 6.1 cm mass extending to the serosa. ??Resection margins negative for tumor. ??Closest mucosal margin 12.3 cm. ??Preliminarily, 5 tumor deposits and 2 of 9 lymph nodes positive for carcinoma. ??Pending further evaluation of additional lymph nodes on permanent sections.. Signed by Kiki RoaB.S., Ph.D. 05/13/2023 10:17 AM 05/18/2023 4:43 PM VIDEO RECORDER MECHANIC METH Gross Description A. ??Received fresh labeled appendix, terminal ileum, and cecum is a right hemicolectomy specimen consisting of 11.5 cm of terminal ileum, 28 cm of colon, and a 10.6 x 0.6 cm appendix. ??A 6.1 x 4.8 x 3.1 cm friable ulcerative mass is present within the proximal ascending colon, 3.4 cm from the ileocecal valve, 12.3 cm from the proximal mucosal margin, 19 cm from the distal mucosal margin, radial margin not applicable. ??Grossly, the mass extends to the serosa, grossly. ??Black ink is applied. ??Three polyps are present, two within the ascending colon (0.3-1.0 cm) and one within the cecum (1.1 cm). ??Multiple lymph nodes are identified within the mesenteric fat. ??Microfiche Camera Operator tissue is submitted for frozen and permanent sections. ??Grossed by Musa Kessler M.D., Ph.D.-Pathology Resident/Miracle German PA([facility]). ??Additional sections of adipose tissue are submitted on 05/16/2023 by Georgia Eldridge M.D. -Pathology Resident. 05/18/2023 4:43 PM VIDEO RECORDER MECHANIC METH Block Summary A Appendix, terminal ileum, and cecum A1 Tumor to serosa A2 Tumor to serosa-frozen A3 Tumor to mucosa A4 Tumor to mucosa-frozen A5 Regional lymph nodes 1(A1) - frozen A6 Regional lymph nodes 1(A2) - frozen A7 Regional lymph nodes 1(A3) - frozen A8 Regional lymph nodes 1(A4) - frozen A9 Regional lymph nodes 1(A5) - frozen A10 Regional lymph nodes 1(A6) - frozen A11 Regional lymph nodes 1(A7) - frozen A12 Regional lymph nodes 2(A8) - frozen A13 Regional lymph nodes 2(A9) - frozen A14 Regional lymph nodes 1(A10) - frozen A15 Regional lymph nodes 2(A11) - frozen A16 Regional lymph nodes 1(A12) - frozen A17 Regional lymph nodes 1(A13) - frozen A18 Regional lymph nodes 2(A14) - frozen A19 Regional lymph nodes 3(A15) - frozen A20 Regional lymph nodes 1(A16) - frozen A21 Regional lymph nodes 1(A17) - frozen A22 Regional lymph nodes 1(A18) - frozen A23 Regional lymph nodes 2(A19) - frozen A24 Ascending colon polyps A25 Cecal polyp A26 Appendix A27 Pericolonic soft tissue 1 A28 Pericolonic soft tissue 2 A29 Pericolonic soft tissue 3 A30 Pericolonic soft tissue 4 A31 Pericolonic soft tissue 5 A32 Pericolonic soft tissue 6 A33 Regional lymph nodes 2(A20) A34 Regional lymph nodes 1(A21) A35 Pericolonic soft tissue 7 A36 Pericolonic soft tissue 8 A37 Pericolonic soft tissue 9 A38 Pericolonic soft tissue 10 A39 Adipose tissue- 1 A40 Adipose tissue- 2 A41 Adipose tissue- 3 A42 Adipose tissue- 4 A43 Adipose tissue- 5 A44 Adipose tissue- 6 A45 Adipose tissue- 7 A46 Adipose tissue- 8 A47 Adipose tissue- 9 A48 Adipose tissue- 10 05/18/2023 4:43 PM VIDEO RECORDER MECHANIC METH Addendum Genetic testing for [facility] Colorectal Cancer Panel ([facility]) will be performed and resulted in the patient's medical record. Signed by Caroline Michaud M.D. 06/02/2023 1:30 PM A portion of the testing process was performed at [facility] site [id number]. 06/02/2023 1:30 PM VIDEO RECORDER MECHANIC METH Comment:REVISED RESULTS Interpretation FINAL DIAGNOSIS A. ??Colon, cecum, appendix, terminal ileum, right hemicolectomy: ??Invasive poorly differentiated adenocarcinoma, forming a 6.1 x 4.8 x 3.1 cm mass in the proximal ascending colon, arising in a tubular adenoma with high-grade dysplasia and extending to the serosa. The surgical resection margins are negative for tumor. Multiple (2 of 14) lymph nodes are positive for metastatic carcinoma. ??See synoptic report. SYNOPTIC REPORT: Colorectal Invasive Carcinoma Procedure: Right hemicolectomy Macroscopic Evaluation of Mesorectum: Not applicable Tumor Site: Ascending colon Histologic Type: Adenocarcinoma Histologic Grade: G3, poorly-differenti ated Tumor Size: Greatest dimension: 6.1 cm Multiple Primary Sites: Not applicable Tumor Extent: Invades visceral peritoneum (including tumor continuous with serosal surface through area of inflammation) Macroscopic Tumor Perforation: Present Lymphovascular Invasion: Present, small vessel, extramural large venous Perineural Invasion: Present Number of Tumor Buds: ??Not applicable ?? Number of Tumor Buds in 1 hotspot field: Not applicable Tumor Ozan Score: Not applicable Treatment Effect: No known presurgical therapy Margin Status All Margins Negative for Invasive Carcinoma ?? Closest Margin(s) to Invasive Carcinoma: Proximal ?? Distance from Invasive Carcinoma to Closest Margin: Exact distance in cm: 12.3 cm ?? Distance from Invasive Carcinoma to Radial (Circumferential) Margin: Not applicable ?? Distance from Invasive Carcinoma to Closest Mucosal Margin: Not applicable Margin Status for Non-Invasive Tumor: All margins negative for high-grade dysplasia/intramu cosal carcinoma and low-grade dysplasia Regional Lymph Nodes Status Tumor Present in Regional Lymph Node(s) ?? Number of Lymph Nodes with Tumor: 2 ?? Number of Lymph Nodes Examined: 14 Tumor Deposits: Present ?Number of Tumor Deposits: 7 Distant Metastasis. ??Distant Site(s) Involved: Not applicable Pathologic Staging (AJCC, 8th edition) TNM Descriptors: Not applicable pT Category: pT4a pN Category: pN1b pM Category: Not applicable Additional Pathologic Findings: Multiple (3) tubular adenomas Best Tumor Block for Ancillary Testing: A1 The synoptic report incorporates information from all relevant surgical material and includes all required data elements of the current [facility] Cancer Protocol. A portion of the testing process was performed at [facility] site [id number]. Digital imaging was used in the diagnostic assessment of this case. 06/02/2023 1:30 PM VIDEO RECORDER MECHANIC METH Tissue (Colon) 05/12/2023 12 :49 PM VIDEO RECORDER MECHANIC Bonny Swanson B.Ch., MMarleny LAB S URG PATH ORDERABLES Performing Organization Address City/State/[facility] Co de Phone Number [facility] [address] [place] [address], [facility] METH [address] [place] [address] * [place] ARTL CATH/CNULA MONITOR PERC, LDA ANE ARTERIAL LINE INSERTION (05/12/2023 10:45 AM VIDEO RECORDER MECHANIC) Narrative Shin Woods M.D. - 05/12/2023 10:45 AM VIDEO RECORDER MECHANIC Marcus Tiwari R.N., CCRN ? 05/12/2023 10:58 AM Invasive Catheter Date/Time: 05/12/2023 10:45 AM Performed by: Marcus Tiwari R.N., CCRN Authorized by: Shin Woods M.D. ?? Location: OR PROCEDURE DETAILS: Line type: arterial ?? Laterality: right Location: radial Location details: new site ? Age group: adult Catheter diameter: 20 Ga Technique: ultrasound guided ?? Ultrasound guidance: image not saved Monitored: yes ?? Number of attempts: 2 UNIVERSAL PROTOCOL All relevant documentation and testing were reviewed and available. All required blood products, implants, devices and or special equipment were made available as applicable. Pre-procedure verification was conducted and the correct site was marked if required. A fire risk assessment was done as applicable. The procedural time-out to verify correct patient, correct side/site, and procedure was conducted prior to performing the procedure and confirmed in a procedural pause. PRE-PROCEDURE DETAILS: Appropriate hand hygiene, gown, cap, mask, protective eyewear, sterile gloves, skin preparation, sterile drape, and strict aseptic technique were utilized as applicable for the procedure.: yes ?? Skin preparation: chlorhexidine ?? SEDATION / ANESTHESIA Anesthesia method: none POST-PROCEDURE DETAILS: Procedure completed successfully: yes ?? Line secured: secured with sutureless device Chlorhexidine disc around insertion site and under catheter with slight turn: yes ?? Notable Events - arterial: none Shin Woods M.D. PROCEDURE/MINOR S URGICAL ORDERABLES * LDA ANE ENDOTRACHEAL AIRWAY (05/12/2023 10:31 AM VIDEO RECORDER MECHANIC) Narrative Marcus Tiwari R.N., EVANGELISTAN - 05/12/2023 10:31 AM VIDEO RECORDER MECHANIC Marcus Tiwari R.N., CCRN ? 05/12/2023 10:59 AM Airway Date/Time: 05/12/2023 10:31 AM Performed by: Marcus Tiwari R.N., EVANGELISTAN Authorized by: Shin Woods M.D. ?? Patient location during procedure: OR / Procedure Area PROCEDURE DETAILS: Mask difficulty assessment: difficult mask (i.e.two-handed) without oral airway Final airway type: video laryngoscope Laryngeal Manipulation: no ?? Final best view of glottic structures - Cormack/Lehane Score: grade 1 ETT location: oral VL device: glide scope Davidson scope blade size: 4 Tube size: 7.5 ETT distance at teeth/gum: 24 Oral tube type: standard ETT Cuffed: yes Leak Test Performed: no ?? Number of attempt to successful placement: 1 Airway confirmation: bilateral breath sounds, positive ETCO2 and bilateral chest rise Other previous techniques attempted: none PRE PROCEDURE DETAILS: Pre evaluation for airway management: procedure Urgency: elective Preop assessment of probable difficulty: questionable / suspicious difficult airway Preoxygenation: bag valve mask SEDATION / ANESTHESIA Anesthesia method: anesthesia POST PROCEDURE DETAILS: ? Procedure outcome: successful ?? Notable Events: no complications Shin Woods M.D. ANESTHESIA ORDERA BLES * (ABNORMAL) Hemoglobin A1c (05/11/2023 3:18 PM VIDEO RECORDER MECHANIC) Hemoglobin A1c, B 6.5(H) 4.0 - 5.6 % 05/11/2023 5:35 PM VIDEO RECORDER MECHANIC DTL Comment: Hemoglobin A1c values greater than or equal to 6.5 percent are diagnostic for diabetes mellitus. ??Diagnosis should be confirmed by repeat testing. ??In diabetic patients, HbA1c goals should be discussed with healthcare provider. Blood (Blood, Venous) 05/11/2023 3:18 PM VIDEO RECORDER MECHANIC 05/11/2023 3:27 PM VIDEO RECORDER MECHANIC Tayo Lee APRN.N.PAjit, D.N.P. LAB BLOOD ADD-ON [facility] [address] [place] [address], [facility] [address] [place] [address] * CT Abdomen Pelvis with IV Contrast (04/18/2023 2:12 PM VIDEO RECORDER MECHANIC) Anatomical Region Laterality Modality Abdomen, Pelvis, Abdominal R ST LOS, Abdominal ARZ LOS, Abdominal FLA LOS N/A Computed Tomography 04/18/2023 2:08 PM VIDEO RECORDER MECHANIC Impressions 04/18/2023 4:14 PM VIDEO RECORDER MECHANIC 1. Limited/incomplete CT imaging of lateral right abdomen due to gantry-related artifact and patient positioning at time of imaging with pannus lateralizing to the right. Prior PET CT and CT suspicious for right-sided colonic malignancy, which is incompletely evaluated on current exam. 2. Rim calcified gallstones. No biliary ductal dilatation. 3. Chronic appearing CT findings of the kidneys and pancreas. Narrative 04/18/2023 4:14 PM VIDEO RECORDER MECHANIC EXAM: CT ABDOMEN PELVIS WITH IV CONTRAST COMPARISON: CT 02/21/2023, 02/01/2023. PET/CT 02/22/2023. FINDINGS: Visualized lung bases are clear. No pleural effusion. Rim calcified gallstones. No biliary ductal dilatation. Fatty replacement of the pancreas with proximal pancreatic calcifications. No evidence of acute pancreatitis. Liver, spleen, adrenal glands, kidneys without acute abnormality. Stable regions of cortical scarring involving the right kidney as well as small bilateral renal cysts. Abdominal aorta normal diameter. Portal and mesenteric veins are patent. Gantry-related artifact due to body habitus, entirety of the lateral right abdomen not included within [id number]. Within this limitation, no evidence of bowel obstruction, free air, free fluid. Repeat imaging with repositioning of pannus recommended if concern for change in hypermetabolic right colonic mass on PET/CT. Bladder mildly distended. Prostate not significantly enlarged. No pelvic or inguinal lymphadenopathy. Degenerative findings of the spine and hips. Procedure Note Rito Ramos M.D. - 04/18/2023 EXAM: CT ABDOMEN PELVIS WITH IV CONTRAST COMPARISON: CT 02/21/2023, 02/01/2023. PET/CT 02/22/2023. FINDINGS: Visualized lung bases are clear. No pleural effusion. Rim calcified gallstones. No biliary ductal dilatation. Fatty replacement of the pancreas with proximal pancreatic calcifications.No evidence of acute pancreatitis. Liver, spleen, adrenal glands, kidneys without acute abnormality. Stableregions of cortical scarring involving the right kidney as well as smallbilateral renal cysts. Abdominal aorta normal diameter. Portal and mesenteric veins are patent. Gantry-related artifact due to body habitus, entirety of the lateral rightabdomen not included within [id number]. Within this limitation, noevidence of bowel obstruction, free air, free fluid. Repeat imaging withrepositioning of pannus recommended if concern for change in hypermetabolic right colonic mass on PET/CT. Bladder mildly distended. Prostate not significantly enlarged. No pelvicor inguinal lymphadenopathy. Degenerative findings of the spine and hips. IMPRESSION: 1. Limited/incomplete CT imaging of lateral right abdomen due togantry-related artifact and patient positioning at time of imaging withpannus lateralizing to the right. Prior PET CT and CT suspicious forright-sided colonic malignancy, which is incompletely evaluated on current exam. 2. Rim calcified gallstones. No biliary ductal dilatation. 3. Chronic appearing CT findings of the kidneys and pancreas. Leila M Jo M.D. IMG CT PROCEDURES * S-TSH (Thyroid-Stimulating Hormone - Sensitive) (02/20/2023 2:34 AM VIDEO RECORDER MECHANIC) TSH, Sensitive 0.9 0.3 - 4.2 mIU/L 02/20/2023 4:20 AM VIDEO RECORDER MECHANIC DTL Blood (Blood, Venous) 02/20/2023 2:34 AM VIDEO RECORDER MECHANIC 02/20/2023 2:54 AM VIDEO RECORDER MECHANIC Peter Alva M.D., M.S. LAB BLOOD ADD -ON [facility] [address] [place] [address], [facility] [address] [place] [address] * Microalbuminuria, 24 Hour, Urine (08/13/2015 10:01 AM CDT) Pathologist [facility] 24 Hour Excretion <9 <30 MG/24 H [facility] Albumin Excretion Rate <6 <20 MCG/MIN [facility] Albumin Concentration <5.0 MG/L [facility] Collection Duration 24 H [facility] Urine Volume [address] [facility] 08/13/2015 10:0 1 AM CDT 08/13/2015 10:01 AM CDT Scooby Cabezas M.D. LAB URINE ORDERABLES [facility] [address] from Last 3 Months or Most Recently Relevant to Health Maintenance Advance Directives For more information, please contact: [phone] Documents on File Type Date Recorded Patient Microfiche Camera Operator Expl anation Advance Directives 05/02/2023 2:48 PM POLS T/MOLST Advance Directives 04/27/2023 2:16 PM Yoli Olivera HCPO A/ADVOCATE/AGENT/REPR ESENTATIVE/SURROGATE * Full Code (Latest Code Status on File) Date Activated Date Inactivated Comments 05/12/2023 3:39 PM 05/16/2023 12:29 PM Question Answer Comments Full Code: Discussed * Full Code Date Activated Date Inactivated Comments 05/12/2023 9:49 AM 05/12/2023 3:39 PM Question Answer Comments Full Code: Discussed * Full Code Date Activated Date Inactivated Comments 03/08/2023 1:59 PM 04/27/2023 1:52 PM Question Answer Comments Full Code: Discussed * Full Code Date Activated Date Inactivated Comments 02/20/2023 5:57 AM 03/08/2023 1:20 PM Question Answer Comments Full Code: Not Discussed Due to: Patient not available * Full Code Date Activated Date Inactivated Comments 10/22/2022 12:48 PM 11/09/2022 2:22 PM Question Answer Comments Full Code: Discussed Healthcare Agents on File Name Relationship Healthcare Agent Relationshi p Communication Yoli Olivera Spouse Health Care Agent Care Teams Sql Report Writer Relationship Specialty Start Date End Date Elsewhere, Pcp PCP - General Internal Medicine 07/08/23
--- OUTSIDE RECORDS SUMMARY | 2023-08-11 11:10 | XMS_ITS | Continuity of Care Document ---
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 For routine questions regarding patient records, call [phone] during business hours, M-F 8:00 AM - 5:00 PM Central Time. Record requests for emergency care only can be directed to [phone] at any time.[facility] Encounters Date Type Department Care Team Description 4 CPAP Download Remote Patient Monitoring [facility] 5 [address] [place] [address] [facility], Provider 4 1:06 PM CDT - 4 11:59 PM CDT Hospital Encounter Department of Radiology, [facility], in [place], [place] [address] [place] [phone] Mario Alberto Navarro P.A.-C., M.S. Wilner Casas M.D. 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 Colectomy Partial Status Post [...] Nephrolithiasis Urate; Gastroesophageal Reflux Disease; Depressive Disorder 4 Clinical Communication Department of Oncology in [place], [place] [address] [place] [address] Zan Rodriguez P.A.-C., M.S. 4 1:00 PM CDT External Outreach [facility] Services in [place] [address] [place] [address] John Lerner M.D. Colectomy Partial Status Post [...] Nephrolithiasis Urate; Depressive Disorder; Gastroesophageal Reflux Disease 4 Clinical Communication Department of Oncology in [place], [place] 200 [place] [address] Brenda Delgadillo M.D. Referral 4 Orders Only [facility] in [place] [address] [place] [phone] Eli Rondon APRN, C.N.P., R.N. 4 3:00 PM CYTOGENETICS TECHNOLOGIST Telemedicine Department of Oncology in [place], [place] [address] [place] [address] Brenda Delgadillo M.D. Malignant Neoplasm Of Colon Ascending (HCC) (Primary Dx); Malignant Neoplasm Of Sigmoid Colon (HCC); Nodules Pulmonary Multiple; Stenosis Spinal Lumbar With Neurogenic Claudication; Diabetes Mellitus Type 2 Peripheral Neuropathy (HCC); Hypertensive Chronic Kidney Disease (CKD) Stage 3a Glomerular Filtration Rate (GFR) 45 To 59 (HCC) 4 9:15 AM CYTOGENETICS TECHNOLOGIST Clinical Communication Virtual Review in [place], [place] 200 [place] [address] 4 9:30 AM CYTOGENETICS TECHNOLOGIST External Outreach [facility] in [place] [address] [place] [address] Eli Rondon APRN, C.N.P., R.N. Anemia Iron Deficiency (Primary Dx); Malignant Neoplasm Of Colon Ascending (HCC); Hypertensive Chronic Kidney Disease (CKD) Stage 3a Glomerular Filtration Rate (GFR) 45 To 59 (HCC); Diabetes Mellitus Type 2 Peripheral Neuropathy (HCC); Stenosis Spinal Lumbar With Neurogenic Claudication; Weakness General 4 Documentation Department of Medical Genetics in [place], [place] [address] [place] [address] Kirsty Mclaughlin Genetic Testing Results 4 CPAP Download Remote Patient Monitoring [facility] 5 [address] [place] [address] [facility], Provider 4 Clinical Communication [facility] in [place] [address] [place] [address] John Lerner M.D. 4 Clinical Communication Department of Oncology in [place], [place] [address] [place] [phone] Brenda Delgadillo M.D. Appt Video 4 2:00 PM CYTOGENETICS TECHNOLOGIST Telemedicine Department of Orthopedic Surgery in [place], [place] [address] [place] [phone] Mario Alberto Navarro, P.A.-C., M.S. 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 4 1:00 PM [facility] External Outreach [facility] Services in [place] [address] [place] [address] John Lerner M.D. Colectomy Partial Status Post [...] Uric Acid; Benign Prostatic Hyperplasia Without Obstruction 4 Clinical Communication Division of Colon and Rectal Surgery in [address] [address] Bonny Clifton M.B., Juan Manuel, Patrice. Results 4 10:30 AM [facility] External Outreach [facility] Services in [place] [address] [place] [address] Eli Rondon, BETHANY, C.N.P., R.N. Malignant Neoplasm [...] Nodule Prostate; Other Hyperlipidemia; Edema; COVID-19 Infection 4 Clinical Communication Division of Colon and Rectal Surgery in [address] [address] Bonny Clifton M.B., Juan Manuel, MMarleny Cancer stage 4 2:08 PM CYTOGENETICS TECHNOLOGIST - 4 10:24 AM CYTOGENETICS TECHNOLOGIST Hospital Encounter [facility], [facility], [facility], Sixth Floor [address] [place] [address] Bonny Clifton M.B., Lyle Zambrano Repeated Falls (Primary Dx); Malignant Neoplasm Of Colon Ascending (HCC); Morbid Severe Obesity Due To Excess Calories (HCC); Stenosis Spinal Lumbar With Neurogenic Claudication; Weakness General; Debility; Malignant Neoplasm Of Colon (HCC) Discharge Disposition: Intermediate Facility 4 12:34 PM CYTOGENETICS TECHNOLOGIST - 4 4:51 PM CYTOGENETICS TECHNOLOGIST Surgery RST [facility] OR [address] [place] [address] Bonny Clifton M.B., Lyle Zambrano LAPAROSCOPIC COLECTOMY RIGHT, ANASTOMOSIS. 4 10:19 AM CYTOGENETICS TECHNOLOGIST Anesthesia Event RST [facility] OR [address] [place] [address] Shin Woods M.D. Wemple, Keith M, RKeny, CCRN 4 3:00 PM [facility] Telemedicine Division of Colon and Rectal Surgery in [place], [place] [address] [place] [address] Bonny Clifton M.B., Juan Manuel, Lyle Malignant Neoplasm Of Colon Ascending (HCC) (Primary Dx); Diabetes Mellitus Type 2 Peripheral Neuropathy (HCC); Apnea Sleep Obstructive; Chronic Kidney Disease (CKD), Stage 3a Glomerular Filtration Rate (GFR) 45 To 59 (HCC); Hypothyroidism; Depression Major Recurrent (HCC); Decline Functional Status; Morbid Obesity Body Mass Index 45.0-49.9 Adult (HCC) 4 CPAP Download Remote Patient Monitoring [facility] 5 [address] [place] [address] [facility], Provider 4 Clinical Communication Senior Services in [place] [address] [place] [address] Eli Rondon, BETHANY, C.N.P., R.N. 4 Intake [facility] 4 3:00 PM CYTOGENETICS TECHNOLOGIST External Outreach [facility] Services in [place] [address] [place] [address] Eli Rondon APRN, C.N.P., R.N. Anemia Iron Deficiency (Primary Dx); Malignant Neoplasm Of Cecum (HCC); Depression Major Recurrent (HCC); Tachycardia Atrial Paroxysmal (HCC); Morbid Obesity Body Mass Index 45.0-49.9 Adult (HCC); Diabetes Mellitus Type 2 Peripheral Neuropathy (HCC); Hypertension And Chronic Kidney Disease Stage 3 (HCC); Weakness General; Apnea Sleep Obstructive; Chronic Kidney Disease (CKD), Stage 3a Glomerular Filtration Rate (GFR) 45 To 59 (HCC); Decline Functional Status; Hypothyroidism; Radiculopathy Lumbar; Stenosis Spinal Lumbar With Neurogenic Claudication; Stones Uric Acid; Nodule Prostate; Other Hyperlipidemia; Diarrhea; Cough Acute; Edema 4 Clinical Communication Department of Family Medicine, [facility], in [address] [place] [address] Rasheed Pastor APRN, C.N.P. 4 Abstract [place], [place] [address] [place] [address] Provider, Historical 3 1:20 PM CYTOGENETICS TECHNOLOGIST - 4 10:50 AM CYTOGENETICS TECHNOLOGIST Hospital Encounter [facility], Second Floor [address] [place] [address] Florencio Smith D.O. Benson, Troy, M.D. Schimming, Christopher, M.D. Hayes, Lisa M, M.D. Langbehn, Jennifer M, D.O. Agunwamba, Akochi O, M.D. Weakness General (Primary Dx); Debility; Pain Low Back Chronic; Decline Functional Status; Pain Back Lumbar Discharge Disposition: Intermediate Facility 4 Clinical Communication Department of Orthopedic Surgery in [place], [place] [address] [place] [address] Mario Alberto Navarro P.A.-C., M.S. Pre-visit Testing Orders 3 Clinical Communication [facility] in [place], [place] [address] [place] [phone] Evgeny Ching M.D. 3 CPAP Download Remote Patient Monitoring [place] [address] 200 [place] [address] [facility], Provider 3 11:00 AM CYTOGENETICS TECHNOLOGIST Education Division of General Internal Medicine in [place], [place] [address] [place] [phone] Sita Headley R.N. 3 10:00 AM CYTOGENETICS TECHNOLOGIST Comprehensive Visit Division of General Internal Medicine in [address] [address] Bonny Clifton M.B., BEstela, MGrzegorz Arana M.D. Malignant Neoplasm Of Colon Ascending (HCC) (Primary Dx); Tubular Adenoma Colon Personal History; Anemia Iron Deficiency; Apnea Sleep Obstructive; Morbid Obesity Body Mass Index 45.0-49.9 Adult (HCC); Diabetes Mellitus Type 2 Peripheral Neuropathy (HCC); Chronic Kidney Disease (CKD), Stage 3a Glomerular Filtration Rate (GFR) 45 To 59 (HCC); Hypertension And Chronic Kidney Disease Stage 3 (HCC); Tachycardia Atrial Paroxysmal (HCC); Depression Major Recurrent (HCC); Debility; Stenosis Spinal Lumbar With Neurogenic Claudication; Hypothyroidism; Chronic Idiopathic Constipation 3 1:30 PM CYTOGENETICS TECHNOLOGIST Clinical Communication Virtual Review in [place], [place] 200 [place] [address] Pre-visit Intake 3 Orders Only Division of Colon and Rectal Surgery in [place], [place] [address] [place] [phone] Sera Cabrera R.N. Malignant Neoplasm Of Colon Ascending (HCC) (Primary Dx) 3 Episode Changes Division of Gastroenterology in [place], [place] [address] [place] [phone] 3 Clinical Communication Division of Colon and Rectal Surgery in [place], [place] [address] [place] [phone] Bonny Clifton M.B., Patrice Zambrano. Schedule surgery 3 Documentation Division of Gastroenterology in [place], [place] [address] [place] [phone] Dave Mckeon M.D. 3 Clinical Communication Division of Colon and Rectal Surgery in [place], [place] [address] [place] [phone] Sophie Zaragoza R.N. 3 9:00 AM CYTOGENETICS TECHNOLOGIST Virtual Visit Division of Colon and Rectal Surgery in [place], [place] [address] [place] [address] Parag Molina M.D., M.S. Morbid Obesity (HCC) (Primary Dx); Malignant Neoplasm Of Colon Ascending (HCC); Apnea Sleep Obstructive; Chronic Kidney Disease (CKD), Stage 3a Glomerular Filtration Rate (GFR) 45 To 59 (HCC); Hypertension And Chronic Kidney Disease Stage 3 (HCC); Diabetes Mellitus Type 2 (HCC) 3 11:50 AM CYTOGENETICS TECHNOLOGIST Ancillary Procedure Department of Nursing 3 2:50 PM CYTOGENETICS TECHNOLOGIST Ancillary Procedure Department of Emergency Medicine 3 1:38 AM CDT - 3 1:18 PM CYTOGENETICS TECHNOLOGIST Hospital Encounter [facility], [facility], Second Floor [address] [place] [phone] Peter Alva M.D., M.S. Montserrat Gilbert M.D. Peter March M.D. Spinal Stenosis Lumbar Region Without Neurogenic Claudication (Primary Dx); Weakness General; Abnormal Posture [R29.3 (ICD-10-CM)]; Decline Functional Status [R53.81 (ICD-10-CM)]; Radiculopathy Lumbar; Debility; Pain Low Back Chronic Discharge Disposition: Intermediate Facility 3 Clinical Communication Department of Hospital Internal Medicine in [place], [place] [address] [place] [phone] Kandace Weaver APRN, C.N.P., M.S.N. 3 Clinical Communication Division of Colon and Rectal Surgery in [place], [place] [address] [place] [phone] Parag Molina M.D., M.S. 3 12:00 PM CYTOGENETICS TECHNOLOGIST Virtual Visit Division of Gastroenterology in [place], [place] [address] [place] [phone] Dave Mckeon M.D. Malignant Neoplasm Of Colon Ascending (HCC) (Primary Dx) 3 Clinical Communication Department of Medical Genetics in [place], [place] [address] [place] [phone] Eli Herron M.S., [facility] Invitae: NK 3 3:42 PM CYTOGENETICS TECHNOLOGIST - 3 11:59 PM CYTOGENETICS TECHNOLOGIST Hospital Encounter Department of Laboratory Medicine and Pathology, [facility] in [place], [place] [address] [place] [phone] Ean Huizar M.D. Malignant Neoplasm Of Colon Ascending (HCC) Discharge Disposition: Home or Self Care 3 11:10 AM CYTOGENETICS TECHNOLOGIST Ancillary Procedure Department of Family Medicine 3 Orders Only Department of Orthopedic Surgery in [place], [place] [address] [place] [address] Pérez Ospina M.D. 3 Clinical Communication Division of Gastroenterology in [place], [place] [address] [place] [phone] Dave Mckeon M.D. 3 7:40 AM CYTOGENETICS TECHNOLOGIST Ancillary Procedure Department of Internal Medicine, [place] 3 9:00 AM CDT Immunization Section of Infectious Diseases in [place], [place] [address] [place] [phone] 3 8:30 AM CDT Comprehensive Visit Department of Medical Genetics in [place], [place] [address] [place] [phone] Dave Mckeon M.D. Khan, Nila S, M.S., [facility] Malignant Neoplasm Of Colon Ascending (HCC) (Primary Dx) 3 8:00 AM CDT Comprehensive Visit Department of Medical Genetics in [address] [address] Dave Mckeon M.D. Keiko Walker Malignant Neoplasm Of Colon Ascending (HCC) 3 7:05 AM CDT - 3 11:59 PM CDT Hospital Encounter Department of Laboratory Medicine and Pathology, [facility] in [address] [address] Dave Mckeon M.D. Malignant Neoplasm Of Colon Ascending (HCC); Diabetes Mellitus Type 2 (HCC) Discharge Disposition: Home or Self Care 3 1:40 PM CDT Comprehensive Visit Division of Gastroenterology in [address] [address] Peter Greenberg M.D. Malignant Neoplasm Of Colon Ascending (HCC) (Primary Dx); Diabetes Mellitus Type 2 (HCC) 3 8:15 AM CDT Clinical Communication Virtual Review in [address] [address] Pre-visit Intake 3 9:15 AM CDT Lab RST RO [facility] [address] [place] [phone] Dave Mckeon M.D. Malignant Neoplasm Of Colon Ascending (HCC) 3 4:05 PM CDT Ancillary Procedure Department of Radiology in [address] [address] Dave Mckeon M.D. Malignant Neoplasm Of Colon Ascending (HCC) 3 4:00 PM CDT Ancillary Procedure Department of Radiology in [address] [address] Dave Mckeon M.D. Malignant Neoplasm Of Colon Ascending (HCC) 3 Clinical Communication Division of Gastroenterology in [address] [address] Dave Mckeon M.D. Neoplasia; RN Summary 3 Clinical Communication Division of Colon and Rectal Surgery in [place], [place] [address] [place] [phone] Prescheduling, Provider Previsit Review 3 Clinical Communication Department of Neurologic Surgery in [place], [place] [address] [place] [phone] Nestor Melgoza M.D. 3 Documentation Department of Neurologic Surgery in [place], [place] [address] [place] [address] Nestor Melgoza M.D. 3 12:44 AM CDT - 3 3:59 AM CDT Emergency [facility] Emergency Department [address] [place] [phone] Peter Alva M.D., M.S. Pain Back (Primary Dx) Discharge Disposition: Home or Self Care 3 12:20 PM CDT - 3 12:18 PM CDT Hospital Encounter [facility], [facility], Second Floor [address] [place] [phone] William Briggs M.D. [place] Verenice Mcnamara M.D. Decline Functional Status [R53.81 (ICD-10-CM)] (Primary Dx); Debility [R53.81 (ICD-10-CM)]; Debility; Radiculopathy Lumbar; Pain Low Back Chronic; Morbid Obesity (HCC); Spinal Stenosis Lumbar Region Without Neurogenic Claudication; Diabetes Mellitus Type 2 Peripheral Neuropathy (HCC); Diabetes Mellitus Type 2 (HCC); Hypertension And Chronic Kidney Disease Stage 3 (HCC) Discharge Disposition: Home-Health Care [facility] 3 Clinical Communication Department of Hospital Internal Medicine in [address] [address] Kandace Weaver APRN, C.N.P., M.S.N. 3 12:05 PM CDT Ancillary Procedure Department of Nursing 3 3:00 PM CDT Ancillary Procedure Department of Family Medicine 3 12:46 PM CDT - 3 11:20 AM CDT Hospital Encounter [facility], [facility], Fourth Floor [address] [place] [address] Leslie Mosley P.A.-C., M.S. Grzegorz Mccord P.A.-C. Jerzy Morris M.D. Palmer, Allyson K, M.D., Ph.D. Marah Ordoñez M.B.B.S., MThad Barajas M.D. Radiculopathy Lumbar (Primary Dx); Pain Back Lumbar; Decline Functional Status [R53.81 (ICD-10-CM)] Discharge Disposition: Transitional Care Unit 3 Orders Only Department of Neurologic Surgery in [place], [place] [address] [place] [address] Jovi Teague M.D. Stenosis Spinal Lumbar With Neurogenic Claudication (Primary Dx) 3 Clinical Communication RST [facility] [address] [place] [phone] Susan Whiting P.A.-C. 3 Clinical Communication RST [facility] [address] [place] [phone] Charlene Redman M.D. Pre-visit Testing Orders; Follow-up Orders; Order Request 3 Orders Only RST [facility] [address] [place] [phone] Altagracia Moseley M.B.B.S., M.D. 3 Clinical Communication RST [facility] [address] [place] [phone] Altagracia Moseley M.B.B.S., M.D. Order Request 2 Documentation Department of Cardiovascular Medicine in [place], [place] [address] [place] [phone] Kristian Dasilva M.D. 2 7:21 AM CYTOGENETICS TECHNOLOGIST - 2 7:37 AM CYTOGENETICS TECHNOLOGIST Hospital Encounter Department of Vascular Medicine in [place], [place] [address] [place] [address] Claribel Alan M.D., Ph.D. Stasis Dermatitis Venous Lower Extremity Right; Edema Lower Extremity; Non-Pressure 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) Discharge Disposition: Home or Self Care 2 7:38 AM CYTOGENETICS TECHNOLOGIST - 2 11:59 PM CYTOGENETICS TECHNOLOGIST Hospital Encounter Department of Vascular Medicine in [place], [place] [address] [place] [address] Claribel Alan M.D., Ph.D. Stasis Dermatitis Venous Lower Extremity Right; Edema Lower Extremity; Non-Pressure 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); 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) Discharge Disposition: Home or Self Care 2 1:00 PM CYTOGENETICS TECHNOLOGIST Comprehensive Visit Department of Dermatology in [place], [place] [address] [place] [address] Zan Sullivan M.D. Stasis Dermatitis Venous Lower Extremity Right (Primary Dx); Rash Leg; Edema Lower Extremity; Non-Pressure 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); 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) Discharge Disposition: Home or Self Care 2 Clinical Communication Department of Cardiovascular Medicine in [place], [place] [address] [place] [address] Kristian Dasilva M.D. Remote Patient Monitoring (Alert: Atrial Fibrillation ) 2 11:49 AM CDT - 2 11:59 PM CDT Hospital Encounter Division of Cardiovascular Diseases in [place], [place] [address] [place] [address] Kristian Dasilva M.D. Atrial Fibrillation Unspecified Discharge Disposition: Home or Self Care 2 9:30 AM CDT Comprehensive Visit Department of Cardiovascular Medicine in [place], [place] [address] [place] [address] Kristian Dasilva M.D. Atrial Fibrillation Unspecified (Primary Dx); Obstructive Sleep Apnea Adult; Morbid Obesity (HCC); Diabetes Mellitus Type 2 (HCC); Hypertension And Chronic Kidney Disease Stage 3 (HCC); Anemia 2 10:12 AM CDT - 2 11:59 PM CDT Hospital Encounter Department of Radiology, [facility] in [place], [place] [address] [place] [phone] Mickey Galvan M.D. Atrial Fibrillation Unspecified Discharge Disposition: Home or Self Care 2 10:22 AM CDT - 2 11:59 PM CDT Hospital Encounter Department of Laboratory Medicine and Pathology, [facility] in [place], [place] [address] [place] [phone] Mickey Galvan M.D. Atrial Fibrillation Unspecified Discharge Disposition: Home or Self Care 2 9:41 AM CDT - 2 10:21 AM CDT Hospital Encounter Department of Cardiovascular Diseases in [place], [place] [address] [place] [phone] Mickey Galvan M.D. Atrial Fibrillation Unspecified Discharge Disposition: Home or Self Care 2 7:30 AM CDT - 2 9:40 AM CDT Hospital Encounter Department of Cardiovascular Diseases in [place], [place] [address] [place] [phone] Mickey Galvan M.D. Atrial Fibrillation Unspecified Discharge Disposition: Home or Self Care 2 Clinical Communication Department of Cardiovascular Medicine in [place], [place] [address] [place] [phone] Perfume CompounderJorge M.D. Triage 2 9:45 AM CDT Telemedicine [facility] in [address] [address] Dae Velásquez M.D., M.S. [place] Rios RKeny, CCRN Obstructive Sleep Apnea Adult 2 11:30 AM CDT Telemedicine [facility] in [place], [place] [address] [place] [address] Dae Velásquez M.D., M.S. Obstructive Sleep Apnea Adult (Primary Dx); Morbid Obesity (HCC); Obesity Body Mass Index 30-39.9 Adult; Fatigue 2 8:00 AM CDT Telemedicine Department of Urology in [place], [place] [address] [place] [address] Suzette Fox APRN C.N.P., D.N.P. Diabetes Mellitus Type 2 (HCC) (Primary Dx); Infection Urinary Tract 2 Clinical Communication Department of Cardiovascular Medicine in [place], [place] [address] [place] [phone] Perfume CompounderJorge M.D. Triage (Cons/ neph/ Jade/ [id number]) 2 Clinical Communication Department of Urology in [place], [place] [address] [place] [phone] UbFaye kc APRN, C.N.P., D.N.P. Phone call 2 4:30 PM CYTOGENETICS TECHNOLOGIST Virtual Visit Division of Nephrology and Hypertension in [place], [place] [address] [place] [phone] Mickey Galvan M.D. Infection Urinary Tract; Diabetes Mellitus Type 2 (HCC) 1 [facility] Center for Sleep Medicine in [place], [place] [address] [place] [address] Dae Velásquez M.D., M.S. Med Refill (cpap protocal ) 1 Clinical Communication Department of Urology in [place], [place] [address] [place] [phone] Zahira Rae P.A.-C. 1 8:45 AM CYTOGENETICS TECHNOLOGIST Comprehensive Visit Department of Urology in [place], [place] [address] [place] [phone] Zahira Rae P.A.-C. Infection Urinary Tract (Primary Dx); Hematuria; Pyuria 1 1:30 PM CYTOGENETICS TECHNOLOGIST Procedure visit Department of Urology in [place], [place] [address] [place] [address] Mickey Galvan M.D. Carlson, Stephen M, APRN, C.N.P. Hematuria; Pyuria; Infection Urinary Tract; Deficiency Urethral Sphincter Intrinsic ; Neuromuscular Dysfunction Of Bladder Unspecified 1 10:58 AM CYTOGENETICS TECHNOLOGIST - 1 11:59 PM CYTOGENETICS TECHNOLOGIST Hospital Encounter Department of Laboratory Medicine and Pathology, [place], [place] [address] [place] [phone] Mickey Galvan M.D. Hematuria; Pyuria; Infection Urinary Tract Discharge Disposition: Home or Self Care 1 10:45 AM CYTOGENETICS TECHNOLOGIST Procedure visit Department of Urology in [place], [place] [address] [place] [phone] Mickey Galvan M.D. Linder, Brian J, M.D. Meyers, Tania L, L.P.N. Infection Urinary Tract Recurrent (Primary Dx); Infection Urinary Tract; Deficiency Urethral Sphincter Intrinsic 1 Orders Only Division of Nephrology and Hypertension in [place], [place] [address] [place] [phone] Mickey Galvan M.D. 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 Hypertension And Chronic Kidney Disease Stage 3 Discharge Disposition: Home or Self Care 1 12:40 PM CDT - 1 11:59 PM CDT Hospital Encounter Department of Laboratory Medicine and Pathology, [facility] in [place], [place] [address] [place] [address] Mickey Galvan M.D. Hypertension And Chronic Kidney Disease Stage 3; Dysuria Discharge Disposition: Home or Self Care 1 3:00 PM CDT Office Visit Division of Nephrology and Hypertension in [place], [place] [address] [place] [address] Mickey Galvan M.D. Infection Urinary Tract (Primary Dx); Stones Uric Acid; Nephrolithiasis; Chronic Kidney Disease (CKD), Stage 3a Glomerular Filtration Rate (GFR) 45 To 59 ([facility]); Diabetes Mellitus Type 2 ([facility]) 1 Clinical Communication Division of Nephrology and Hypertension in [place], [place] [address] [place] [address] Mickey Galvan M.D. Pre-visit Testing Orders 1 Clinical Communication [facility] in [place], [place] [address] [place] [address] Dae Velásquez M.D., M.S. Med Refill (CPAP RX PROTOCOL ) 0 Clinical Communication [facility] in [place], [place] [address] [place] [address] Dae Velásquez M.D., M.S. 0 10:00 AM CDT [facility] in [place], [place] [address] [place] [address] Dae Velásquez M.D., M.S. Apnea Sleep Obstructive; Diabetes Mellitus Type 2 ([facility]); Hypertension And Chronic Kidney Disease Stage 3 ([facility]); Morbid Obesity Body Mass Index Greater Than Or Equal To 40 Adult ([facility]) 0 10:30 AM CYTOGENETICS TECHNOLOGIST Procedure visit Department of Urology in [place], [place] [address] [place] [address] Lynda Yanes M.D. Keith Lovelace, BETHANY, C.N.P., M.S.N. Stent Ureteral Indwelling (Primary Dx); Stone Kidney And Ureteral 0 12:16 PM CYTOGENETICS TECHNOLOGIST - 0 11:59 PM CYTOGENETICS TECHNOLOGIST Hospital Encounter Department of Radiology, [facility], in [place], [place] [address] [place] [address] Turner Souza M.D. Stone Kidney Discharge Disposition: Home or Self Care 9 Clinical Communication Department of Urology in [place], [place] [address] [place] [phone] Provider, Unknown surgery questions 9 Documentation Division of Breast, Endocrine, Metabolic, and Gastrointestinal Surgery in [place], [place] [address] [place] [phone] Candi Mathis M.D. 9 Clinical Communication Department of Urology in [place], [place] [address] [place] [phone] Lynda Yanes M.D. 9 9:45 AM CYTOGENETICS TECHNOLOGIST - 9 11:40 AM CYTOGENETICS TECHNOLOGIST Surgery [facility] OR [address] [place] [phone] James Mina M.D. URETEROSCOPY WITH LASER LITHOTRIPSY, proceed as indicated. 9 11:16 AM CYTOGENETICS TECHNOLOGIST Anesthesia Event [facility] OR [facility] [place] [phone] Herman Cruz M.D. Weingarten, Toby N, M.D. 9 8:40 AM CYTOGENETICS TECHNOLOGIST - 9 4:37 PM CYTOGENETICS TECHNOLOGIST Hospital Encounter [facility] [address] [place] [phone] James Mina M.D. Stone Kidney And Ureteral Discharge Disposition: Home or Self Care 9 11:00 AM CYTOGENETICS TECHNOLOGIST Education Division of General Internal Medicine in [place], [place] [address] [place] [phone] Alicia Zapata R.N. 9 9:30 AM CYTOGENETICS TECHNOLOGIST Comprehensive Visit Division of General Internal Medicine in [place], [place] [address] [place] [phone] Lynda Yanes M.D. Kebede, Esayas B, M.D. Preanesthetic Medical Exam (Primary Dx); Stone Kidney And Ureteral; Hypertension And Chronic Kidney Disease Stage 3 (HCC); Chronic Kidney Disease Stage 3 Glomerular Filtration Rate 30 To 59; Morbid Obesity Body Mass Index Greater Than Or Equal To 40 Adult (HCC); Apnea Sleep Obstructive 9 Orders Only Department of Urology in [address] [phone] Lynda Yanes M.D. 9 Clinical Communication Department of Urology in [place], [place] [address] [place] [phone] Provider, Unknown OUTSIDE LABS 9 Clinical Communication Department of Urology in [address] [phone] Lynda Yanes M.D. Outside urine results 9 Clinical Communication Department of Urology in [address] [phone] Lynda Yanes M.D. 9 Orders Only Department of Urology in [address] [phone] Lynda Yanes M.D. Stone Kidney And Ureteral (Primary Dx) 9 3:42 AM CYTOGENETICS TECHNOLOGIST - 9 1:48 PM CYTOGENETICS TECHNOLOGIST Hospital Encounter [facility], [facility], Sixth Floor [address] [place] [phone] Rito Hays M.D. Stone Kidney And Ureteral (Primary Dx); Nephrolithiasis; Decline Functional Status Discharge Disposition: Home or Self Care 9 Orders Only Department of Urology in [address] [phone] Lynda Yanes M.D. 9 1:25 PM CYTOGENETICS TECHNOLOGIST Ancillary Procedure Department of Urology 9 11:47 AM CYTOGENETICS TECHNOLOGIST Anesthesia Event [facility] OR [address] [place] [address] Scooby Haas M.D. Alleckson, Jonathan D, APRN, CRNA, D.N.P. 9 11:18 AM CYTOGENETICS TECHNOLOGIST - 9 1:13 PM CYTOGENETICS TECHNOLOGIST Surgery [facility] OR [address] [place] [phone] Ashkan Villanueva M.D. CYSTOURETHROSCOPY WITH PLACEMENT URETERAL STENT 9 Intake [facility] 9 Clinical Communication [facility] in [place], [place] [address] [place] [address] Reinier Flores M.D. Reschedule ( Automatic Appointment Reminder to reschedule appointment.) 9 Clinical Communication Division of Nephrology and Hypertension in [place], [place] [address] [place] [address] Mickey Galvan M.D. phone call 9 Orders Only Department of Urology in [place], [place] [address] [place] [address] Turner Souza M.D. Stone Kidney 9 7:00 AM CDT - 9 11:59 PM CDT Hospital Encounter Department of Radiology, [facility], in [place], [place] [address] [place] [address] Mickey Galvan M.D. Stones Uric Acid Discharge Disposition: Home or Self Care 9 10:30 AM CDT Office Visit Division of Nephrology and Hypertension in [place], [place] [address] [place] [address] Mickey Galvan M.D. Stones Uric Acid (Primary Dx); Diabetes Mellitus Type 2 (HCC); Morbid Obesity Body Mass Index Greater Than Or Equal To 40 Adult (HCC) 9 Orders Only Division of Nephrology and Hypertension in [place], [place] [address] [place] [address] Mickey Galvan M.D. Diabetes Mellitus Type 2 (HCC) (Primary Dx); Morbid Obesity Body Mass Index Greater Than Or Equal To 40 Adult (HCC); Stones Uric Acid 9 11:30 AM CDT Office Visit Division of Nephrology and Hypertension in [place], [place] [address] [place] [address] Mickey Galvan M.D. Stones Uric Acid (Primary Dx) 9 3:00 PM CDT Clinical Support Department of Nutrition and Diabetes Education in [place], [place] [address] [place] [address] Whitney Monroe M.S., RDN, LD Stone Kidney 9 11:48 AM CDT - 9 11:59 PM CDT Hospital Encounter Department of Radiology, [facility] in [place], [place] [address] [place] [address] Mickey Galvan M.D. Stone Kidney Discharge Disposition: Home or Self Care 9 10:20 AM CDT - 9 10:32 AM CDT Hospital Encounter Department of Laboratory Medicine and Pathology, [place], [place] [address] [place] [phone] Mickey Galvan M.D. Stone Kidney Discharge Disposition: Home or Self Care 9 10:34 AM CDT - 9 11:47 AM CDT Hospital Encounter Department of Laboratory Medicine and Pathology, [facility] in [place], [place] [address] [place] [address] Mickey Galvan M.D. Stone Kidney Discharge Disposition: Home or Self Care 9 10:33 AM CDT Hospital Encounter Department of Laboratory Medicine and Pathology, [facility] in [place], [place] [address] [place] [phone] Mickey Galvan M.D. Stone Kidney Discharge Disposition: Home or Self Care 9 Orders Only Division of Nephrology and Hypertension in [place], [place] [address] [place] [address] Mickey Galvan M.D. Diabetes Mellitus Type 2 (HCC) (Primary Dx); Stone Kidney 9 9:30 AM CDT Comprehensive Visit Division of Nephrology and Hypertension in [place], [place] [address] [place] [address] Mickey Galvan M.D. Diabetes Mellitus Type 2 (HCC) (Primary Dx); Morbid Obesity Body Mass Index Greater Than Or Equal To 40 Adult (HCC); Nephrolithiasis Calcium Oxalate; Stones Uric Acid; Proteinuria; Hypertension Essential Primary 9 Refill [facility] in [place], [place] [address] [place] [address] Reinier Flores M.D. Med Refill (cpap protocol) 8 Clinical Communication Division of Nephrology and Hypertension in [place], [place] [address] [place] [address] Kevin Santiago M.D., Ph.D. Pre-visit Testing Orders (02/13 appt) 8 Abstract DATA ABSTRACTION Provider, Historical 8 Refill [facility] in [place], [place] [address] [place] [address] Nestor Quezada R.N. Med Refill (CPAP PROTOCOL) 8 Orders Only [facility] in [place], [place] [address] [place] [address] Reinier Flores M.D. 7 - 7 11:59 PM CDT Hospital Encounter HX NO MAPPING 5 7:53 PM CDT - 5 2:58 PM CDT Hospital Encounter HX RST UNIT 5-4 GYNECOLOGY 5 - 5 7:54 AM CDT Hospital Encounter HX NO MAPPING 5 - 5 11:59 PM CDT Hospital Encounter HX NO MAPPING 5 8:50 AM CDT - 08/18/201 5 11:52 AM CDT Hospital Encounter HX RST EMERGENCY TRAUMA UNI Provider, Historical 4 6:44 AM CDT - 4 10:58 AM CDT Hospital Encounter HX RST 2 [facility] Allergies Active Allergy Reactions Criticality Noted Date Comments Atenolol Other (see comments) Medium 05/27/2014 pass out Amoxicillin-Pot Clavulanate Diarrhea Medium 05/27/2014 Meperidine Nausea Only Medium 05/27/2014 Lisinopril Cough Medium 05/27/2014 Blood-Group Specific Substance Other (see comments) 07/29/2014 Patient has a Non-Specific Antibody. Please draw 2 purple top tubes and 1 red top tube for all Type and Screen and Type and Crossmatch Red Blood Cell product orders. Blood products may be delayed. Pt has no idea what this means Terazosin Other (see comments) High 02/01/2023 Trospium Other (see comments) 02/01/2023 Clavulanic Acid Diarrhea Low 10/03/2022 Medications Medication Sig Dispensed Refills Start Date [...] (two) times a day. 60 capsule 2022 4 Active dilTIAZem CD (CARDIZEM CD/CARTIA XT) 240 [...] Hypomagnesemia 04/27/2023 Tubular Adenoma Colon Personal History 3 Overview: 01/31/23 - colonoscopy: In the cecum, [...] 150 beats. 02/06 - day mobile cardiac roll dough divider: underlying rhythm of sinus, intermittent sinus arrhythmia, [...] to rescue Anemia Iron Deficiency 10/10/2022 Overview: 6/23 1 unit RBC, 2 Venofer infusion 200 [...] 4. Electronically signed by: Kimi Manzano M.D. [id number] 10-Aug-2016 12:45 Failed Gabapentin in 12/2022. Switched [...] - MODE RNA (12 YEARS AND OLDER) [id number] 02/18/2023 Td (Adult), adsorbed 04/02/2019(Deferred : Other - will check with pcp) Tdap 07/29/2021,12/24/2008,04/18/2007 Zoster, Unspecified 04/02/2019(Deferred: Other) influenza high dose (65 year s or older) (PF) 03/05/2019 influenza vaccine quad (FLUZONE/FLUARIX) (6 months and older)(PF) 03/07/2017,03/15/2016,01/20/2015 Family History Medical History Relation Name Comments Coronary artery disease Brother 1 Coronary artery disease Father Heart attack Father Hypertension Father Obesity Father Cancer Maternal Grandmother Ocular cancer (OS) Anesthesia problems Mother Cancer Mother Ocular cancer(O S) Kidney disease Mother Cancer Sister Adrenal gland c ancer Obesity Sister Relation Name Status Comments Brother 1 Alive Brother 2 Alive Daughter 1 Alive Daughter 2 Alive Father (Age 55) d. Medicat ion (Synthroid) complications Father's Brother 1 (Age 91) Father's Brother 2 (Age 89) Granddaughter Alive 20 months Maternal Cousin Alive 5No cancer k nown for any cousins Maternal Grandfather (Age 60s) d . [place] Maternal Grandmother (Age 81) Mother (Age 87) Mother's Brother (Age 80s) Heart issues Niece/Nephew Alive No cancer hx fo r nieces or nephews Paternal Cousin Alive No known can cer hx for cousins Paternal Grandfather (Age 60s) d . Heart issues/ Stroke Paternal Grandmother (Age 80s) H eart issues Sister (Age 61) d. Cancer Social History Smoking Status as of 08/11/2023 Tobacco Use Types Packs/Day Years Used Date Smoking Tobacco: Never Assessed [facility] Utilities Answer Date Recorded In the past 12 months has e [employer], gas, oil, or water [employer] threatened to shut off services in your [...] 12/31/2021 How often do you attend chur or jewish services? More than 4 times per year 12/31/2021 Do you belong to any clubs o r organizations such as congregation groups, unions, fraternal or athletic groups, or [...] and heating? Not hard at all 02/11/2023 [facility] - Occupational [...] your living situation today? I have a [facility] place to live 05/12/2023 Education Answer Date Recorded What is the highest level of school you have completed or the highest degree you have received? Bachelor's degree (e.g., BA, AB, BS) 09/20/2018 Sex and Gender Information Value Date Recorded Sex Assigned at Male 06/14/2018 8:36 PM CYTOGENETICS TECHNOLOGIST Gender Identity Male 10/11/2022 10:17 PM CDT Sexual Orientation Choose not to disclose 2019 1:31 PM CYTOGENETICS TECHNOLOGIST Last Filed Vital Signs Vital Sign Reading [...] 185 cm (6' 0.84) 05/11/2023 2:15 PM CYTOGENETICS TECHNOLOGIST Body Mass Index 55.11 05/11/2023 2:15 PM CYTOGENETICS TECHNOLOGIST Plan of Treatment Not on file Medical Devices Explanted Type Area Food Service Driver Device Identifier Shelf Expiration Date Model / Serial / Lot Stnt Uret Inl 6fx26 - [id number] Implanted:Qty : 1 on 04/04/2019 by Julian Mayfield M.D. at [facility] Ureteral Stent Right: Ureter [employer] [id number] 01/25/2022 [id number] / / [id number] Stnt Uret Inl 7fx26 - [id number] Implanted:Qty : 1 on 03/12/2019 by Ashkan Villanueva M.D. at [facility] Explanted: by Keith Lovelace APRN C.N.P., M.S.N. 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 Routine 06/01/2023 12:00 AM CYTOGENETICS TECHNOLOGIST MISCELLANEOUS SENT OUT LAB TEST Routine 06/01/2023 12:00 AM CYTOGENETICS TECHNOLOGIST Malignant Neoplasm Of Colon Ascending (HCC) GLUCOSE POCT, B Routine 05/16/2023 9:35 AM CYTOGENETICS TECHNOLOGIST GLUCOSE POCT, B Routine 05/15/2023 9:10 PM CYTOGENETICS TECHNOLOGIST GLUCOSE POCT, B Routine 05/15/2023 4:41 PM CYTOGENETICS TECHNOLOGIST GLUCOSE POCT, B Routine 05/15/2023 2:04 PM CYTOGENETICS TECHNOLOGIST SARS COV-2 RNA, PCR, VARIES Routine 05/15/2023 9:10 AM CYTOGENETICS TECHNOLOGIST REMOTE OXIMETRY MONITORING CONT. Routine 05/15/2023 8:00 AM CYTOGENETICS TECHNOLOGIST GLUCOSE POCT, B Routine 05/15/2023 7:46 AM CYTOGENETICS TECHNOLOGIST GLUCOSE POCT, B Routine 05/14/2023 8:33 PM CYTOGENETICS TECHNOLOGIST REMOTE OXIMETRY MONITORING CONT. Routine 05/14/2023 8:01 PM CYTOGENETICS TECHNOLOGIST GLUCOSE POCT, B Routine 05/14/2023 4:04 PM CYTOGENETICS TECHNOLOGIST GLUCOSE POCT, B Routine 05/14/2023 1:51 PM CYTOGENETICS TECHNOLOGIST GLUCOSE POCT, B Routine 05/14/2023 12:13 PM CYTOGENETICS TECHNOLOGIST REMOTE OXIMETRY MONITORING CONT. Routine 05/14/2023 8:01 AM CYTOGENETICS TECHNOLOGIST GLUCOSE POCT, B Routine 05/14/2023 7:33 AM CYTOGENETICS TECHNOLOGIST GLUCOSE POCT, B Routine 05/13/2023 10:05 PM CYTOGENETICS TECHNOLOGIST REMOTE OXIMETRY MONITORING CONT. Routine 05/13/2023 8:00 PM CYTOGENETICS TECHNOLOGIST GLUCOSE POCT, B Routine 05/13/2023 3:10 PM CYTOGENETICS TECHNOLOGIST REMOTE OXIMETRY MONITORING CONT. Routine 05/13/2023 8:01 AM CYTOGENETICS TECHNOLOGIST GLUCOSE POCT, B Routine 05/13/2023 7:52 AM CYTOGENETICS TECHNOLOGIST GLUCOSE POCT, B Routine 05/13/2023 3:55 AM CYTOGENETICS TECHNOLOGIST REMOTE OXIMETRY MONITORING CONT. Routine 05/13/2023 12:51 AM CYTOGENETICS TECHNOLOGIST REMOTE OXIMETRY MONITORING CONT. Routine 05/13/2023 12:51 AM CYTOGENETICS TECHNOLOGIST REMOTE OXIMETRY MONITORING CONT. Routine 05/13/2023 12:51 AM CYTOGENETICS TECHNOLOGIST GLUCOSE POCT, B Routine 05/12/2023 8:33 PM CYTOGENETICS TECHNOLOGIST HIV-1/HIV-2 AB RAPID PT SOURCE, B STAT 05/12/2023 5:44 PM CYTOGENETICS TECHNOLOGIST HIV-1/-2 AG AND AB PS, PLASMA STAT 05/12/2023 5:44 PM CYTOGENETICS TECHNOLOGIST HBS ANTIGEN PATIENT SOURCE STAT 05/12/2023 5:44 PM CYTOGENETICS TECHNOLOGIST HCV RNA PT SOURCE, S STAT 05/12/2023 5:44 PM CYTOGENETICS TECHNOLOGIST GLUCOSE POCT, B Routine 05/12/2023 4:32 PM CYTOGENETICS TECHNOLOGIST [facility] Routine 3:47 PM CYTOGENETICS TECHNOLOGIST GLUCOSE POCT, B Routine 05/12/2023 1:47 PM CYTOGENETICS TECHNOLOGIST ADULT OXYGEN THERAPY Routine 05/12/2023 1:29 PM CYTOGENETICS TECHNOLOGIST SURGICAL PATHOLOGY, [facility] LAB Routine 05/12/2023 12:49 PM CYTOGENETICS TECHNOLOGIST Malignant Neoplasm Of Colon Ascending (HCC) GLUCOSE POCT, B Routine 05/12/2023 11:26 AM CYTOGENETICS TECHNOLOGIST LDA ANE ARTERIAL LINE INSERTION Routine 05/12/2023 10:45 AM CYTOGENETICS TECHNOLOGIST PA ARTL CATH/CNULA MONITOR PERC Routine 05/12/2023 10:45 AM CYTOGENETICS TECHNOLOGIST LDA ANE ENDOTRACHEAL AIRWAY Routine 05/12/2023 10:31 AM CYTOGENETICS TECHNOLOGIST LAPAROSCOPIC COLECTOMY RIGHT WITH ANASTOMOSIS 05/12/2023 9:59 AM CYTOGENETICS TECHNOLOGIST Malignant Neoplasm Of Colon Ascending (HCC) GLUCOSE POCT, B Routine 05/12/2023 9:07 AM CYTOGENETICS TECHNOLOGIST GLUCOSE POCT, B Routine 05/11/2023 9:40 PM CYTOGENETICS TECHNOLOGIST GLUCOSE POCT, B Routine 05/11/2023 4:56 PM CYTOGENETICS TECHNOLOGIST ANTIBODY IDENTIFICATION Routine 05/11/19 3:18 PM CYTOGENETICS TECHNOLOGIST HEMOGLOBIN A1C, B Routine 05/11/2023 3:18 PM CYTOGENETICS TECHNOLOGIST TYPE AND SCREEN Routine 05/11/2023 3:18 PM CYTOGENETICS TECHNOLOGIST CBC WITH DIFFERENTIAL, B Routine 05/11/2023 3:18 PM CYTOGENETICS TECHNOLOGIST BASIC METABOLIC PANEL, S/P Routine 05/11/2023 3:18 PM CYTOGENETICS TECHNOLOGIST GLUCOSE POCT, B Routine 04/27/2023 7:05 AM CYTOGENETICS TECHNOLOGIST MAGNESIUM, S Routine 04/27/2023 6:34 AM CYTOGENETICS TECHNOLOGIST BASIC METABOLIC PANEL, S/P Routine 04/27/2023 6:34 AM CYTOGENETICS TECHNOLOGIST GLUCOSE POCT, B Routine 04/26/2023 9:34 PM CYTOGENETICS TECHNOLOGIST GLUCOSE POCT, B Routine 04/26/2023 5:03 PM CYTOGENETICS TECHNOLOGIST URINALYSIS WITH MICROSCOPIC Routine 04/26/2023 2:10 PM CYTOGENETICS TECHNOLOGIST GLUCOSE POCT, B Routine 04/26/2023 11:58 AM CYTOGENETICS TECHNOLOGIST ADULT OXYGEN THERAPY Routine 04/26/2023 8:00 AM CYTOGENETICS TECHNOLOGIST GLUCOSE POCT, B Routine 04/26/2023 7:03 AM CYTOGENETICS TECHNOLOGIST GLUCOSE POCT, B Routine 04/25/2023 8:29 PM CYTOGENETICS TECHNOLOGIST ADULT OXYGEN THERAPY Routine 04/25/2023 8:00 PM CYTOGENETICS TECHNOLOGIST GLUCOSE POCT, B Routine 04/25/2023 4:57 PM CYTOGENETICS TECHNOLOGIST GLUCOSE POCT, B Routine 04/25/2023 12:02 PM CYTOGENETICS TECHNOLOGIST ADULT OXYGEN THERAPY Routine 04/25/2023 8:00 AM CYTOGENETICS TECHNOLOGIST GLUCOSE POCT, B Routine 04/25/2023 6:57 AM CYTOGENETICS TECHNOLOGIST GLUCOSE POCT, B Routine 04/24/2023 9:10 PM CYTOGENETICS TECHNOLOGIST ADULT OXYGEN THERAPY Routine 04/24/2023 8:00 PM CYTOGENETICS TECHNOLOGIST GLUCOSE POCT, B Routine 04/24/2023 4:54 PM CYTOGENETICS TECHNOLOGIST GLUCOSE POCT, B Routine 04/24/2023 12:00 PM CYTOGENETICS TECHNOLOGIST MAGNESIUM, S Routine 04/24/2023 9:36 AM CYTOGENETICS TECHNOLOGIST COMPREHENSIVE METABOLIC PANEL, S/P Routine 04/24/2023 9:36 AM CYTOGENETICS TECHNOLOGIST ADULT OXYGEN THERAPY Routine 04/24/2023 8:00 AM CYTOGENETICS TECHNOLOGIST GLUCOSE POCT, B Routine 04/24/2023 6:59 AM CYTOGENETICS TECHNOLOGIST GLUCOSE POCT, B Routine 04/23/2023 9:10 PM CYTOGENETICS TECHNOLOGIST ADULT OXYGEN THERAPY Routine 04/23/2023 8:01 PM CYTOGENETICS TECHNOLOGIST GLUCOSE POCT, B Routine 04/23/2023 5:10 PM CYTOGENETICS TECHNOLOGIST GLUCOSE POCT, B Routine 04/23/2023 12:05 PM CYTOGENETICS TECHNOLOGIST ADULT OXYGEN THERAPY Routine 04/23/2023 8:00 AM CYTOGENETICS TECHNOLOGIST GLUCOSE POCT, B Routine 04/23/2023 7:01 AM CYTOGENETICS TECHNOLOGIST GLUCOSE POCT, B Routine 04/22/2023 9:02 PM CYTOGENETICS TECHNOLOGIST ADULT OXYGEN THERAPY Routine 04/22/2023 8:00 PM CYTOGENETICS TECHNOLOGIST GLUCOSE POCT, B Routine 04/22/2023 4:54 PM CYTOGENETICS TECHNOLOGIST GLUCOSE POCT, B Routine 04/22/2023 11:59 AM CYTOGENETICS TECHNOLOGIST ADULT OXYGEN THERAPY Routine 04/22/2023 8:01 AM CYTOGENETICS TECHNOLOGIST GLUCOSE POCT, B Routine 04/22/2023 7:09 AM CYTOGENETICS TECHNOLOGIST GLUCOSE POCT, B Routine 04/21/2023 9:56 PM CYTOGENETICS TECHNOLOGIST ADULT OXYGEN THERAPY Routine 04/21/2023 8:00 PM CYTOGENETICS TECHNOLOGIST GLUCOSE POCT, B Routine 04/21/2023 5:14 PM CYTOGENETICS TECHNOLOGIST GLUCOSE POCT, B Routine 04/21/2023 12:00 PM CYTOGENETICS TECHNOLOGIST BASIC METABOLIC PANEL, S/P Routine 04/21/2023 8:40 AM CYTOGENETICS TECHNOLOGIST CBC WITH DIFFERENTIAL, B Routine 04/21/2023 8:40 AM CYTOGENETICS TECHNOLOGIST ADULT OXYGEN THERAPY Routine 04/21/2023 8:01 AM CYTOGENETICS TECHNOLOGIST GLUCOSE POCT, B Routine 04/21/2023 7:01 AM CYTOGENETICS TECHNOLOGIST GLUCOSE POCT, B Routine 04/20/2023 8:24 PM CYTOGENETICS TECHNOLOGIST ADULT OXYGEN THERAPY Routine 04/20/2023 8:01 PM CYTOGENETICS TECHNOLOGIST GLUCOSE POCT, B Routine 04/20/2023 5:08 PM CYTOGENETICS TECHNOLOGIST BACTERIA / RONDA CULTURE, BLOOD Routine 04/20/2023 12:50 PM CYTOGENETICS TECHNOLOGIST BACTERIA / RONDA CULTURE, BLOOD Routine 04/20/2023 12:41 PM CYTOGENETICS TECHNOLOGIST GLUCOSE POCT, B Routine 04/20/2023 12:06 PM CYTOGENETICS TECHNOLOGIST ADULT OXYGEN THERAPY Routine 04/20/2023 8:00 AM CYTOGENETICS TECHNOLOGIST GLUCOSE POCT, B Routine 04/20/2023 6:57 AM CYTOGENETICS TECHNOLOGIST CBC WITH DIFFERENTIAL, B Routine 04/20/2023 5:46 AM CYTOGENETICS TECHNOLOGIST BASIC METABOLIC PANEL, S/P Routine 04/20/2023 5:46 AM CYTOGENETICS TECHNOLOGIST ADULT OXYGEN THERAPY Routine 04/19/2023 8:01 PM CYTOGENETICS TECHNOLOGIST GLUCOSE POCT, B Routine 04/19/2023 7:47 PM CYTOGENETICS TECHNOLOGIST GLUCOSE POCT, B Routine 04/19/2023 5:07 PM CYTOGENETICS TECHNOLOGIST GLUCOSE POCT, B Routine 04/19/2023 12:09 PM CYTOGENETICS TECHNOLOGIST ADULT OXYGEN THERAPY Routine 04/19/2023 8:02 AM CYTOGENETICS TECHNOLOGIST GLUCOSE POCT, B Routine 04/19/2023 7:24 AM CYTOGENETICS TECHNOLOGIST BASIC METABOLIC PANEL, S/P Routine 04/19/2023 5:50 AM CYTOGENETICS TECHNOLOGIST CBC WITH DIFFERENTIAL, B Routine 04/19/2023 5:50 AM CYTOGENETICS TECHNOLOGIST GLUCOSE POCT, B Routine 04/18/2023 9:11 PM CYTOGENETICS TECHNOLOGIST ADULT OXYGEN THERAPY Routine 04/18/2023 8:00 PM CYTOGENETICS TECHNOLOGIST GLUCOSE POCT, B Routine 04/18/2023 4:50 PM CYTOGENETICS TECHNOLOGIST LACTATE, B/P Routine 04/18/2023 4:33 PM CYTOGENETICS TECHNOLOGIST INFLUENZA A, B, RSV, PCR, POCT Routine 04/18/2023 3:25 PM CYTOGENETICS TECHNOLOGIST SARS CORONAVIRUS 2, PCR RAPID, V Routine 04/18/2023 3:[address] ABDOMEN PELVIS WITH IV CONTRAST RAD - Routine (most inpatients and all outpatients) 04/18/2023 2:12 PM CYTOGENETICS TECHNOLOGIST URINALYSIS WITH MICROSCOPIC Routine 04/18/2023 12:50 PM CYTOGENETICS TECHNOLOGIST BACTERIA / RONDA CULTURE, BLOOD Routine 04/18/2023 12:34 PM CYTOGENETICS TECHNOLOGIST LACTATE, B/P STAT 04/18/2023 12:29 PM CYTOGENETICS TECHNOLOGIST LACTATE FOR SEPSIS WITH REFLEX STAT 04/18/2023 12:29 PM CYTOGENETICS TECHNOLOGIST ANTIMICROBIAL SUSCEPTIBILITY, ANAEROBIC BACTERIA, JEANCARLOS Routine 04/18/2023 12:29 PM CYTOGENETICS TECHNOLOGIST BACTERIA / RONDA CULTURE, BLOOD Routine 04/18/2023 12:29 PM CYTOGENETICS TECHNOLOGIST COMPREHENSIVE METABOLIC PANEL, S/P STAT 04/18/2023 12:28 PM CYTOGENETICS TECHNOLOGIST CBC WITH DIFFERENTIAL, B STAT 04/18/2023 12:28 PM CYTOGENETICS TECHNOLOGIST GLUCOSE POCT, B Routine 04/18/2023 11:26 AM CYTOGENETICS TECHNOLOGIST ADULT OXYGEN THERAPY Routine 04/18/2023 8:00 AM CYTOGENETICS TECHNOLOGIST GLUCOSE POCT, B Routine 04/18/2023 7:22 AM CYTOGENETICS TECHNOLOGIST GLUCOSE POCT, B Routine 04/17/2023 9:09 PM CYTOGENETICS TECHNOLOGIST ADULT OXYGEN THERAPY Routine 04/17/2023 8:00 PM CYTOGENETICS TECHNOLOGIST GLUCOSE POCT, B Routine 04/17/2023 5:11 PM CYTOGENETICS TECHNOLOGIST GLUCOSE POCT, B Routine 04/17/2023 11:50 AM CYTOGENETICS TECHNOLOGIST ADULT OXYGEN THERAPY Routine 04/17/2023 8:00 AM CYTOGENETICS TECHNOLOGIST GLUCOSE POCT, B Routine 04/17/2023 7:33 AM CYTOGENETICS TECHNOLOGIST GLUCOSE POCT, B Routine 04/16/2023 9:50 PM CYTOGENETICS TECHNOLOGIST ADULT OXYGEN THERAPY Routine 04/16/2023 8:00 PM CYTOGENETICS TECHNOLOGIST GLUCOSE POCT, B Routine 04/16/2023 5:14 PM CYTOGENETICS TECHNOLOGIST GLUCOSE POCT, B Routine 04/16/2023 12:26 PM CYTOGENETICS TECHNOLOGIST ADULT OXYGEN THERAPY Routine 04/16/2023 8:00 AM CYTOGENETICS TECHNOLOGIST GLUCOSE POCT, B Routine 04/16/2023 7:33 AM CYTOGENETICS TECHNOLOGIST GLUCOSE POCT, B Routine 04/15/2023 8:59 PM CYTOGENETICS TECHNOLOGIST ADULT OXYGEN THERAPY Routine 04/15/2023 8:00 PM CYTOGENETICS TECHNOLOGIST GLUCOSE POCT, B Routine 04/15/2023 5:21 PM CYTOGENETICS TECHNOLOGIST GLUCOSE POCT, B Routine 04/15/2023 12:03 PM CYTOGENETICS TECHNOLOGIST ECG Routine 04/15/2023 9:35 AM CYTOGENETICS TECHNOLOGIST ADULT OXYGEN THERAPY Routine 04/15/2023 8:01 AM CYTOGENETICS TECHNOLOGIST GLUCOSE POCT, B Routine 04/15/2023 7:19 AM CYTOGENETICS TECHNOLOGIST MORPHOLOGY EVALUATION Routine 04/15/2023 5:56 AM CYTOGENETICS TECHNOLOGIST CBC WITH DIFFERENTIAL, B Routine 04/15/2023 5:56 AM CYTOGENETICS TECHNOLOGIST GLUCOSE POCT, B Routine 04/14/2023 8:28 PM CYTOGENETICS TECHNOLOGIST ADULT OXYGEN THERAPY Routine 04/14/2023 8:01 PM CYTOGENETICS TECHNOLOGIST GLUCOSE POCT, B Routine 04/14/2023 5:03 PM CYTOGENETICS TECHNOLOGIST GLUCOSE POCT, B Routine 04/14/2023 12:11 PM CYTOGENETICS TECHNOLOGIST ADULT OXYGEN THERAPY Routine 04/14/2023 8:00 AM CYTOGENETICS TECHNOLOGIST GLUCOSE POCT, B Routine 04/14/2023 7:10 AM CYTOGENETICS TECHNOLOGIST ADULT OXYGEN THERAPY Routine 04/13/2023 8:00 PM CYTOGENETICS TECHNOLOGIST GLUCOSE POCT, B Routine 04/13/2023 8:00 PM CYTOGENETICS TECHNOLOGIST GLUCOSE POCT, B Routine 04/13/2023 5:09 PM CYTOGENETICS TECHNOLOGIST GLUCOSE POCT, B Routine 04/13/2023 12:06 PM CYTOGENETICS TECHNOLOGIST ADULT OXYGEN THERAPY Routine 04/13/2023 8:00 AM CYTOGENETICS TECHNOLOGIST GLUCOSE POCT, B Routine 04/13/2023 7:27 AM CYTOGENETICS TECHNOLOGIST URINALYSIS WITH MICROSCOPIC Routine 04/12/2023 8:52 PM CYTOGENETICS TECHNOLOGIST BACTERIAL CULTURE, AEROBIC + SUSC, URINE Routine 04/12/2023 8:52 PM CYTOGENETICS TECHNOLOGIST GLUCOSE POCT, B Routine 04/12/2023 8:21 PM CYTOGENETICS TECHNOLOGIST ADULT OXYGEN THERAPY Routine 04/12/2023 8:01 PM CYTOGENETICS TECHNOLOGIST GLUCOSE POCT, B Routine 04/12/2023 5:11 PM CYTOGENETICS TECHNOLOGIST GLUCOSE POCT, B Routine 04/12/2023 12:10 PM CYTOGENETICS TECHNOLOGIST ADULT OXYGEN THERAPY Routine 04/12/2023 8:01 AM CYTOGENETICS TECHNOLOGIST GLUCOSE POCT, B Routine 04/12/2023 6:58 AM CYTOGENETICS TECHNOLOGIST GLUCOSE POCT, B Routine 04/11/2023 8:37 PM CYTOGENETICS TECHNOLOGIST ADULT OXYGEN THERAPY Routine 04/11/2023 8:00 PM CYTOGENETICS TECHNOLOGIST GLUCOSE POCT, B Routine 04/11/2023 5:12 PM CYTOGENETICS TECHNOLOGIST GLUCOSE POCT, B Routine 04/11/2023 12:08 PM CYTOGENETICS TECHNOLOGIST ADULT OXYGEN THERAPY Routine 04/11/2023 8:00 AM CYTOGENETICS TECHNOLOGIST GLUCOSE POCT, B Routine 04/11/2023 7:08 AM CYTOGENETICS TECHNOLOGIST GLUCOSE POCT, B Routine 04/10/2023 8:08 PM CYTOGENETICS TECHNOLOGIST ADULT OXYGEN THERAPY Routine 04/10/2023 8:00 PM CYTOGENETICS TECHNOLOGIST GLUCOSE POCT, B Routine 04/10/2023 4:55 PM CYTOGENETICS TECHNOLOGIST GLUCOSE POCT, B Routine 04/10/2023 11:58 AM CYTOGENETICS TECHNOLOGIST ADULT OXYGEN THERAPY Routine 04/10/2023 8:00 AM CYTOGENETICS TECHNOLOGIST GLUCOSE POCT, B Routine 04/10/2023 7:10 AM CYTOGENETICS TECHNOLOGIST GLUCOSE POCT, B Routine 04/09/2023 8:17 PM CYTOGENETICS TECHNOLOGIST ADULT OXYGEN THERAPY Routine 04/09/2023 8:00 PM CYTOGENETICS TECHNOLOGIST GLUCOSE POCT, B Routine 04/09/2023 5:08 PM CYTOGENETICS TECHNOLOGIST GLUCOSE POCT, B Routine 04/09/2023 12:04 PM CYTOGENETICS TECHNOLOGIST ADULT OXYGEN THERAPY Routine 04/09/2023 8:01 AM CYTOGENETICS TECHNOLOGIST GLUCOSE POCT, B Routine 04/09/2023 7:01 AM CYTOGENETICS TECHNOLOGIST ADULT OXYGEN THERAPY Routine 04/08/2023 8:00 PM CYTOGENETICS TECHNOLOGIST GLUCOSE POCT, B Routine 04/08/2023 7:53 PM CYTOGENETICS TECHNOLOGIST GLUCOSE POCT, B Routine 04/08/2023 5:02 PM CYTOGENETICS TECHNOLOGIST GLUCOSE POCT, B Routine 04/08/2023 12:08 PM CYTOGENETICS TECHNOLOGIST ADULT OXYGEN THERAPY Routine 04/08/2023 8:01 AM CYTOGENETICS TECHNOLOGIST GLUCOSE POCT, B Routine 04/08/2023 7:08 AM CYTOGENETICS TECHNOLOGIST BASIC METABOLIC PANEL, S/P Routine 04/08/2023 5:52 AM CYTOGENETICS TECHNOLOGIST CBC WITHOUT DIFFERENTIAL, B Routine 04/08/2023 5:52 AM CYTOGENETICS TECHNOLOGIST GLUCOSE POCT, B Routine 04/07/2023 8:50 PM CYTOGENETICS TECHNOLOGIST ADULT OXYGEN THERAPY Routine 04/07/2023 8:00 PM CYTOGENETICS TECHNOLOGIST GLUCOSE POCT, B Routine 04/07/2023 5:00 PM CYTOGENETICS TECHNOLOGIST GLUCOSE POCT, B Routine 04/07/2023 12:02 PM CYTOGENETICS TECHNOLOGIST ADULT OXYGEN THERAPY Routine 04/07/2023 8:00 AM CYTOGENETICS TECHNOLOGIST GLUCOSE POCT, B Routine 04/07/2023 7:19 AM CYTOGENETICS TECHNOLOGIST C-REACTIVE PROTEIN (CRP), S/P Routine 04/07/2023 6:08 AM CYTOGENETICS TECHNOLOGIST GLUCOSE POCT, B Routine 04/06/2023 8:52 PM CYTOGENETICS TECHNOLOGIST ADULT OXYGEN THERAPY Routine 04/06/2023 8:00 PM CYTOGENETICS TECHNOLOGIST GLUCOSE POCT, B Routine 04/06/2023 5:16 PM CYTOGENETICS TECHNOLOGIST ADULT OXYGEN THERAPY Routine 04/06/2023 8:01 AM CYTOGENETICS TECHNOLOGIST GLUCOSE POCT, B Routine 04/06/2023 6:53 AM CYTOGENETICS TECHNOLOGIST GLUCOSE POCT, B Routine 04/05/2023 8:27 PM CYTOGENETICS TECHNOLOGIST ADULT OXYGEN THERAPY Routine 04/05/2023 8:00 PM CYTOGENETICS TECHNOLOGIST GLUCOSE POCT, B Routine 04/05/2023 5:04 PM CYTOGENETICS TECHNOLOGIST GLUCOSE POCT, B Routine 04/05/2023 11:58 AM CYTOGENETICS TECHNOLOGIST ADULT OXYGEN THERAPY Routine 04/05/2023 8:01 AM CYTOGENETICS TECHNOLOGIST GLUCOSE POCT, B Routine 04/05/2023 7:15 AM CYTOGENETICS TECHNOLOGIST GLUCOSE POCT, B Routine 04/04/2023 8:05 PM CYTOGENETICS TECHNOLOGIST ADULT OXYGEN THERAPY Routine 04/04/2023 8:01 PM CYTOGENETICS TECHNOLOGIST GLUCOSE POCT, B Routine 04/04/2023 4:58 PM CYTOGENETICS TECHNOLOGIST GLUCOSE POCT, B Routine 04/04/2023 12:00 PM CYTOGENETICS TECHNOLOGIST ADULT OXYGEN THERAPY Routine 04/04/2023 8:01 AM CYTOGENETICS TECHNOLOGIST GLUCOSE POCT, B Routine 04/04/2023 7:13 AM CYTOGENETICS TECHNOLOGIST MORPHOLOGY EVALUATION Routine 04/04/2023 4:42 AM CYTOGENETICS TECHNOLOGIST CBC WITH DIFFERENTIAL, B Routine 04/04/2023 4:42 AM CYTOGENETICS TECHNOLOGIST GLUCOSE POCT, B Routine 04/03/2023 8:58 PM CYTOGENETICS TECHNOLOGIST ADULT OXYGEN THERAPY Routine 04/03/2023 8:00 PM CYTOGENETICS TECHNOLOGIST GLUCOSE POCT, B Routine 04/03/2023 5:15 PM CYTOGENETICS TECHNOLOGIST GLUCOSE POCT, B Routine 04/03/2023 12:11 PM CYTOGENETICS TECHNOLOGIST ADULT OXYGEN THERAPY Routine 04/03/2023 8:00 AM CYTOGENETICS TECHNOLOGIST GLUCOSE POCT, B Routine 04/03/2023 7:09 AM CYTOGENETICS TECHNOLOGIST GLUCOSE POCT, B Routine 04/02/2023 8:44 PM CYTOGENETICS TECHNOLOGIST ADULT OXYGEN THERAPY Routine 04/02/2023 8:00 PM CYTOGENETICS TECHNOLOGIST GLUCOSE POCT, B Routine 04/02/2023 5:31 PM CYTOGENETICS TECHNOLOGIST GLUCOSE POCT, B Routine 04/02/2023 12:02 PM CYTOGENETICS TECHNOLOGIST ADULT OXYGEN THERAPY Routine 04/02/2023 8:00 AM CYTOGENETICS TECHNOLOGIST GLUCOSE POCT, B Routine 04/02/2023 7:19 AM CYTOGENETICS TECHNOLOGIST GLUCOSE POCT, B Routine 04/01/2023 8:42 PM CYTOGENETICS TECHNOLOGIST ADULT OXYGEN THERAPY Routine 04/01/2023 8:00 PM CYTOGENETICS TECHNOLOGIST GLUCOSE POCT, B Routine 04/01/2023 5:26 PM CYTOGENETICS TECHNOLOGIST GLUCOSE POCT, B Routine 04/01/2023 12:20 PM CYTOGENETICS TECHNOLOGIST ADULT OXYGEN THERAPY Routine 04/01/2023 8:00 AM CYTOGENETICS TECHNOLOGIST GLUCOSE POCT, B Routine 04/01/2023 7:07 AM CYTOGENETICS TECHNOLOGIST GLUCOSE POCT, B Routine 03/31/2023 8:05 PM CYTOGENETICS TECHNOLOGIST ADULT OXYGEN THERAPY Routine 03/31/2023 8:00 PM CYTOGENETICS TECHNOLOGIST GLUCOSE POCT, B Routine 03/31/2023 5:14 PM CYTOGENETICS TECHNOLOGIST URINALYSIS WITH MICROSCOPIC Routine 03/31/2023 4:59 PM CYTOGENETICS TECHNOLOGIST GLUCOSE POCT, B Routine 03/31/2023 12:03 PM CYTOGENETICS TECHNOLOGIST ADULT OXYGEN THERAPY Routine 03/31/2023 8:01 AM CYTOGENETICS TECHNOLOGIST GLUCOSE POCT, B Routine 03/31/2023 7:09 AM CYTOGENETICS TECHNOLOGIST GLUCOSE POCT, B Routine 03/30/2023 8:42 PM CYTOGENETICS TECHNOLOGIST ADULT OXYGEN THERAPY Routine 03/30/2023 8:01 PM CYTOGENETICS TECHNOLOGIST GLUCOSE POCT, B Routine 03/30/2023 5:02 PM CYTOGENETICS TECHNOLOGIST GLUCOSE POCT, B Routine 03/30/2023 12:16 PM CYTOGENETICS TECHNOLOGIST ADULT OXYGEN THERAPY Routine 03/30/2023 8:01 AM CYTOGENETICS TECHNOLOGIST GLUCOSE POCT, B Routine 03/30/2023 7:15 AM CYTOGENETICS TECHNOLOGIST GLUCOSE POCT, B Routine 03/29/2023 8:35 PM CYTOGENETICS TECHNOLOGIST ADULT OXYGEN THERAPY Routine 03/29/2023 8:00 PM CYTOGENETICS TECHNOLOGIST GLUCOSE POCT, B Routine 03/29/2023 5:22 PM CYTOGENETICS TECHNOLOGIST GLUCOSE POCT, B Routine 03/29/2023 12:18 PM CYTOGENETICS TECHNOLOGIST ADULT OXYGEN THERAPY Routine 03/29/2023 8:00 AM CYTOGENETICS TECHNOLOGIST GLUCOSE POCT, B Routine 03/29/2023 7:06 AM CYTOGENETICS TECHNOLOGIST GLUCOSE POCT, B Routine 03/28/2023 9:11 PM CYTOGENETICS TECHNOLOGIST ADULT OXYGEN THERAPY Routine 03/28/2023 8:00 PM CYTOGENETICS TECHNOLOGIST GLUCOSE POCT, B Routine 03/28/2023 5:15 PM CYTOGENETICS TECHNOLOGIST GLUCOSE POCT, B Routine 03/28/2023 12:21 PM CYTOGENETICS TECHNOLOGIST ADULT OXYGEN THERAPY Routine 03/28/2023 8:00 AM CYTOGENETICS TECHNOLOGIST GLUCOSE POCT, B Routine 03/28/2023 7:22 AM CYTOGENETICS TECHNOLOGIST IRON AND TOT IRON-BINDING CAPACITY, S/P Routine 03/28/2023 6:01 AM CYTOGENETICS TECHNOLOGIST CBC WITH DIFFERENTIAL, B Routine 03/28/2023 6:01 AM CYTOGENETICS TECHNOLOGIST GLUCOSE POCT, B Routine 03/27/2023 8:55 PM CYTOGENETICS TECHNOLOGIST ADULT OXYGEN THERAPY Routine 03/27/2023 8:00 PM CYTOGENETICS TECHNOLOGIST GLUCOSE POCT, B Routine 03/27/2023 5:12 PM CYTOGENETICS TECHNOLOGIST GLUCOSE POCT, B Routine 03/27/2023 12:23 PM CYTOGENETICS TECHNOLOGIST CBC WITH DIFFERENTIAL, B Routine 03/27/2023 9:28 AM CYTOGENETICS TECHNOLOGIST BASIC METABOLIC PANEL, S/P Routine 03/27/2023 9:28 AM CYTOGENETICS TECHNOLOGIST ADULT OXYGEN THERAPY Routine 03/27/2023 8:00 AM CYTOGENETICS TECHNOLOGIST GLUCOSE POCT, B Routine 03/27/2023 7:29 AM CYTOGENETICS TECHNOLOGIST GLUCOSE POCT, B Routine 03/26/2023 9:23 PM CYTOGENETICS TECHNOLOGIST ADULT OXYGEN THERAPY Routine 03/26/2023 8:00 PM CYTOGENETICS TECHNOLOGIST GLUCOSE POCT, B Routine 03/26/2023 5:13 PM CYTOGENETICS TECHNOLOGIST URINALYSIS WITH MICROSCOPIC Routine 03/26/2023 12:57 PM CYTOGENETICS TECHNOLOGIST BACTERIAL CULTURE, AEROBIC + SUSC, URINE Routine 03/26/2023 12:57 PM CYTOGENETICS TECHNOLOGIST GLUCOSE POCT, B Routine 03/26/2023 12:11 PM CYTOGENETICS TECHNOLOGIST ADULT OXYGEN THERAPY Routine 03/26/2023 8:00 AM CYTOGENETICS TECHNOLOGIST GLUCOSE POCT, B Routine 03/26/2023 7:14 AM CYTOGENETICS TECHNOLOGIST HEMOGLOBIN, B Routine 03/26/2023 6:19 AM CYTOGENETICS TECHNOLOGIST GLUCOSE POCT, B Routine 03/25/2023 9:49 PM CYTOGENETICS TECHNOLOGIST ADULT OXYGEN THERAPY Routine 03/25/2023 8:00 PM CYTOGENETICS TECHNOLOGIST GLUCOSE POCT, B Routine 03/25/2023 5:11 PM CYTOGENETICS TECHNOLOGIST GLUCOSE POCT, B Routine 03/25/2023 12:25 PM CYTOGENETICS TECHNOLOGIST ADULT OXYGEN THERAPY Routine 03/25/2023 8:02 AM CYTOGENETICS TECHNOLOGIST GLUCOSE POCT, B Routine 03/25/2023 7:23 AM CYTOGENETICS TECHNOLOGIST GLUCOSE POCT, B Routine 03/25/2023 1:22 AM CYTOGENETICS TECHNOLOGIST GLUCOSE POCT, B Routine 03/24/2023 9:29 PM CYTOGENETICS TECHNOLOGIST ADULT OXYGEN THERAPY Routine 03/24/2023 8:00 PM CYTOGENETICS TECHNOLOGIST GLUCOSE POCT, B Routine 03/24/2023 5:00 PM CYTOGENETICS TECHNOLOGIST GLUCOSE POCT, B Routine 03/24/2023 12:18 PM CYTOGENETICS TECHNOLOGIST ADULT OXYGEN THERAPY Routine 03/24/2023 8:01 AM CYTOGENETICS TECHNOLOGIST GLUCOSE POCT, B Routine 03/24/2023 7:13 AM CYTOGENETICS TECHNOLOGIST BASIC METABOLIC PANEL (BMP), POCT, B Routine 03/24/2023 6:26 AM CYTOGENETICS TECHNOLOGIST MORPHOLOGY EVALUATION Routine 03/24/2023 5:58 AM CYTOGENETICS TECHNOLOGIST BASIC METABOLIC PANEL, S/P Routine 03/24/2023 5:58 AM CYTOGENETICS TECHNOLOGIST CBC WITH DIFFERENTIAL, B Routine 03/24/2023 5:58 AM CYTOGENETICS TECHNOLOGIST GLUCOSE POCT, B Routine 03/23/2023 8:28 PM CYTOGENETICS TECHNOLOGIST ADULT OXYGEN THERAPY Routine 03/23/2023 8:01 PM CYTOGENETICS TECHNOLOGIST GLUCOSE POCT, B Routine 03/23/2023 5:14 PM CYTOGENETICS TECHNOLOGIST GLUCOSE POCT, B Routine 03/23/2023 12:18 PM CYTOGENETICS TECHNOLOGIST ADULT OXYGEN THERAPY Routine 03/23/2023 8:02 AM CYTOGENETICS TECHNOLOGIST GLUCOSE POCT, B Routine 03/23/2023 7:20 AM CYTOGENETICS TECHNOLOGIST GLUCOSE POCT, B Routine 03/22/2023 8:35 PM CYTOGENETICS TECHNOLOGIST ADULT OXYGEN THERAPY Routine 03/22/2023 8:01 PM CYTOGENETICS TECHNOLOGIST GLUCOSE POCT, B Routine 03/22/2023 5:17 PM CYTOGENETICS TECHNOLOGIST GLUCOSE POCT, B Routine 03/22/2023 12:08 PM CYTOGENETICS TECHNOLOGIST HEMOGLOBIN, B Routine 03/22/2023 8:20 AM CYTOGENETICS TECHNOLOGIST ADULT OXYGEN THERAPY Routine 03/22/2023 8:01 AM CYTOGENETICS TECHNOLOGIST GLUCOSE POCT, B Routine 03/22/2023 7:23 AM CYTOGENETICS TECHNOLOGIST BASIC METABOLIC PANEL, S/P Routine 03/22/2023 5:44 AM CYTOGENETICS TECHNOLOGIST GLUCOSE POCT, B Routine 03/21/2023 8:24 PM CYTOGENETICS TECHNOLOGIST ADULT OXYGEN THERAPY Routine 03/21/2023 8:00 PM CYTOGENETICS TECHNOLOGIST GLUCOSE POCT, B Routine 03/21/2023 5:47 PM CYTOGENETICS TECHNOLOGIST GLUCOSE POCT, B Routine 03/21/2023 5:11 PM CYTOGENETICS TECHNOLOGIST TRANSFUSE RED BLOOD CELLS Routine 03/21/2023 3:40 PM CYTOGENETICS TECHNOLOGIST PREPARE RED BLOOD CELLS Routine 03/21/20 12:29 PM CYTOGENETICS TECHNOLOGIST TESTING LOCATION Routine 03/21/2023 12:29 PM CYTOGENETICS TECHNOLOGIST TYPE AND SCREEN Routine 03/21/2023 12:29 PM CYTOGENETICS TECHNOLOGIST GLUCOSE POCT, B Routine 03/21/2023 12:00 PM CYTOGENETICS TECHNOLOGIST ADULT OXYGEN THERAPY Routine 03/21/2023 8:01 AM CYTOGENETICS TECHNOLOGIST GLUCOSE POCT, B Routine 03/21/2023 7:19 AM CYTOGENETICS TECHNOLOGIST MORPHOLOGY EVALUATION Routine 03/21/2023 6:09 AM CYTOGENETICS TECHNOLOGIST CBC WITH DIFFERENTIAL, B Routine 03/21/2023 6:09 AM CYTOGENETICS TECHNOLOGIST ALBUMIN, S/P Routine 03/21/2023 6:09 AM CYTOGENETICS TECHNOLOGIST BASIC METABOLIC PANEL, S/P Routine 03/21/2023 6:09 AM CYTOGENETICS TECHNOLOGIST PREALBUMIN (PAB), S Routine 03/21/2023 6:09 AM CYTOGENETICS TECHNOLOGIST GLUCOSE POCT, B Routine 03/20/2023 9:14 PM CYTOGENETICS TECHNOLOGIST ADULT OXYGEN THERAPY Routine 03/20/2023 8:00 PM CYTOGENETICS TECHNOLOGIST GLUCOSE POCT, B Routine 03/20/2023 5:04 PM CYTOGENETICS TECHNOLOGIST GLUCOSE POCT, B Routine 03/20/2023 12:20 PM CYTOGENETICS TECHNOLOGIST ADULT OXYGEN THERAPY Routine 03/20/2023 8:00 AM CYTOGENETICS TECHNOLOGIST GLUCOSE POCT, B Routine 03/20/2023 7:18 AM CYTOGENETICS TECHNOLOGIST GLUCOSE POCT, B Routine 03/20/2023 2:05 AM CYTOGENETICS TECHNOLOGIST GLUCOSE POCT, B Routine 03/19/2023 8:51 PM CYTOGENETICS TECHNOLOGIST ADULT OXYGEN THERAPY Routine 03/19/2023 8:00 PM CYTOGENETICS TECHNOLOGIST GLUCOSE POCT, B Routine 03/19/2023 5:01 PM CYTOGENETICS TECHNOLOGIST GLUCOSE POCT, B Routine 03/19/2023 12:27 PM CYTOGENETICS TECHNOLOGIST ADULT OXYGEN THERAPY Routine 03/19/2023 8:01 AM CYTOGENETICS TECHNOLOGIST GLUCOSE POCT, B Routine 03/19/2023 7:23 AM CYTOGENETICS TECHNOLOGIST GLUCOSE POCT, B Routine 03/18/2023 8:38 PM CYTOGENETICS TECHNOLOGIST ADULT OXYGEN THERAPY Routine 03/18/2023 8:00 PM CYTOGENETICS TECHNOLOGIST GLUCOSE POCT, B Routine 03/18/2023 5:13 PM CYTOGENETICS TECHNOLOGIST GLUCOSE POCT, B Routine 03/18/2023 12:20 PM CYTOGENETICS TECHNOLOGIST ADULT OXYGEN THERAPY Routine 03/18/2023 8:01 AM CYTOGENETICS TECHNOLOGIST GLUCOSE POCT, B Routine 03/18/2023 7:04 AM CYTOGENETICS TECHNOLOGIST MORPHOLOGY EVALUATION Routine 03/18/2023 5:52 AM CYTOGENETICS TECHNOLOGIST CBC WITH DIFFERENTIAL, B Routine 03/18/2023 5:52 AM CYTOGENETICS TECHNOLOGIST GLUCOSE POCT, B Routine 03/17/2023 8:53 PM CYTOGENETICS TECHNOLOGIST ADULT OXYGEN THERAPY Routine 03/17/2023 8:01 PM CYTOGENETICS TECHNOLOGIST GLUCOSE POCT, B Routine 03/17/2023 5:12 PM CYTOGENETICS TECHNOLOGIST GLUCOSE POCT, B Routine 03/17/2023 12:24 PM CYTOGENETICS TECHNOLOGIST ADULT OXYGEN THERAPY Routine 03/17/2023 8:02 AM CYTOGENETICS TECHNOLOGIST GLUCOSE POCT, B Routine 03/17/2023 7:04 AM CYTOGENETICS TECHNOLOGIST GLUCOSE POCT, B Routine 03/16/2023 8:35 PM CYTOGENETICS TECHNOLOGIST ADULT OXYGEN THERAPY Routine 03/16/2023 8:01 PM CYTOGENETICS TECHNOLOGIST GLUCOSE POCT, B Routine 03/16/2023 5:16 PM CYTOGENETICS TECHNOLOGIST GLUCOSE POCT, B Routine 03/16/2023 12:06 PM CYTOGENETICS TECHNOLOGIST ADULT OXYGEN THERAPY Routine 03/16/2023 8:01 AM CYTOGENETICS TECHNOLOGIST GLUCOSE POCT, B Routine 03/16/2023 7:08 AM CYTOGENETICS TECHNOLOGIST GLUCOSE POCT, B Routine 03/15/2023 8:04 PM CYTOGENETICS TECHNOLOGIST ADULT OXYGEN THERAPY Routine 03/15/2023 8:01 PM CYTOGENETICS TECHNOLOGIST GLUCOSE POCT, B Routine 03/15/2023 5:12 PM CYTOGENETICS TECHNOLOGIST GLUCOSE POCT, B Routine 03/15/2023 12:18 PM CYTOGENETICS TECHNOLOGIST ADULT OXYGEN THERAPY Routine 03/15/2023 8:01 AM CYTOGENETICS TECHNOLOGIST GLUCOSE POCT, B Routine 03/15/2023 7:36 AM CYTOGENETICS TECHNOLOGIST GLUCOSE POCT, B Routine 03/14/2023 8:31 PM CYTOGENETICS TECHNOLOGIST ADULT OXYGEN THERAPY Routine 03/14/2023 8:01 PM CYTOGENETICS TECHNOLOGIST GLUCOSE POCT, B Routine 03/14/2023 5:12 PM CYTOGENETICS TECHNOLOGIST GLUCOSE POCT, B Routine 03/14/2023 12:29 PM CYTOGENETICS TECHNOLOGIST NURSING IMAGE EXAM Routine 03/14/2023 11:50 AM CYTOGENETICS TECHNOLOGIST ADULT OXYGEN THERAPY Routine 03/14/2023 8:01 AM CYTOGENETICS TECHNOLOGIST BASIC METABOLIC PANEL, S/P Timed 03/14/2023 7:57 AM CYTOGENETICS TECHNOLOGIST CBC WITH DIFFERENTIAL, B Timed 03/14/2023 7:57 AM CYTOGENETICS TECHNOLOGIST GLUCOSE POCT, B Routine 03/14/2023 7:14 AM CYTOGENETICS TECHNOLOGIST GLUCOSE POCT, B Routine 03/13/2023 8:55 PM CYTOGENETICS TECHNOLOGIST ADULT OXYGEN THERAPY Routine 03/13/2023 8:00 PM CYTOGENETICS TECHNOLOGIST GLUCOSE POCT, B Routine 03/13/2023 5:18 PM CYTOGENETICS TECHNOLOGIST GLUCOSE POCT, B Routine 03/13/2023 12:08 PM CYTOGENETICS TECHNOLOGIST ADULT OXYGEN THERAPY Routine 03/13/2023 8:00 AM CYTOGENETICS TECHNOLOGIST GLUCOSE POCT, B Routine 03/13/2023 7:48 AM CYTOGENETICS TECHNOLOGIST GLUCOSE POCT, B Routine 03/12/2023 8:34 PM CYTOGENETICS TECHNOLOGIST ADULT OXYGEN THERAPY Routine 03/12/2023 8:00 PM CYTOGENETICS TECHNOLOGIST GLUCOSE POCT, B Routine 03/12/2023 5:12 PM CYTOGENETICS TECHNOLOGIST GLUCOSE POCT, B Routine 03/12/2023 11:58 AM CYTOGENETICS TECHNOLOGIST ADULT OXYGEN THERAPY Routine 03/12/2023 8:01 AM CYTOGENETICS TECHNOLOGIST GLUCOSE POCT, B Routine 03/12/2023 6:57 AM CYTOGENETICS TECHNOLOGIST GLUCOSE POCT, B Routine 03/11/2023 8:15 PM CYTOGENETICS TECHNOLOGIST ADULT OXYGEN THERAPY Routine 03/11/2023 8:01 PM CYTOGENETICS TECHNOLOGIST GLUCOSE POCT, B Routine 03/11/2023 5:02 PM CYTOGENETICS TECHNOLOGIST GLUCOSE POCT, B Routine 03/11/2023 2:41 PM CYTOGENETICS TECHNOLOGIST GLUCOSE POCT, B Routine 03/11/2023 12:22 PM CYTOGENETICS TECHNOLOGIST ADULT OXYGEN THERAPY Routine 03/11/2023 8:01 AM CYTOGENETICS TECHNOLOGIST GLUCOSE POCT, B Routine 03/11/2023 7:49 AM CYTOGENETICS TECHNOLOGIST GLUCOSE POCT, B Routine 03/11/2023 2:05 AM CYTOGENETICS TECHNOLOGIST GLUCOSE POCT, B Routine 03/10/2023 9:12 PM CYTOGENETICS TECHNOLOGIST GLUCOSE POCT, B Routine 03/10/2023 8:06 PM CYTOGENETICS TECHNOLOGIST ADULT OXYGEN THERAPY Routine 03/10/2023 8:01 PM CYTOGENETICS TECHNOLOGIST GLUCOSE POCT, B Routine 03/10/2023 7:19 PM CYTOGENETICS TECHNOLOGIST GLUCOSE POCT, B Routine 03/10/2023 7:02 PM CYTOGENETICS TECHNOLOGIST GLUCOSE POCT, B Routine 03/10/2023 6:43 PM CYTOGENETICS TECHNOLOGIST GLUCOSE POCT, B Routine 03/10/2023 6:13 PM CYTOGENETICS TECHNOLOGIST GLUCOSE POCT, B Routine 03/10/2023 5:57 PM CYTOGENETICS TECHNOLOGIST GLUCOSE POCT, B Routine 03/10/2023 5:29 PM CYTOGENETICS TECHNOLOGIST GLUCOSE POCT, B Routine 03/10/2023 5:06 PM CYTOGENETICS TECHNOLOGIST GLUCOSE POCT, B Routine 03/10/2023 11:59 AM CYTOGENETICS TECHNOLOGIST GLUCOSE POCT, B Routine 03/10/2023 8:15 AM CYTOGENETICS TECHNOLOGIST ADULT OXYGEN THERAPY Routine 03/10/2023 8:02 AM CYTOGENETICS TECHNOLOGIST GLUCOSE POCT, B Routine 03/10/2023 7:21 AM CYTOGENETICS TECHNOLOGIST GLUCOSE POCT, B Routine 03/09/2023 9:10 PM CYTOGENETICS TECHNOLOGIST ADULT OXYGEN THERAPY Routine 03/09/2023 8:01 PM CYTOGENETICS TECHNOLOGIST GLUCOSE POCT, B Routine 03/09/2023 5:14 PM CYTOGENETICS TECHNOLOGIST GLUCOSE POCT, B Routine 03/09/2023 12:38 PM CYTOGENETICS TECHNOLOGIST ADULT OXYGEN THERAPY Routine 03/09/2023 8:02 AM CYTOGENETICS TECHNOLOGIST GLUCOSE POCT, B Routine 03/09/2023 7:17 AM CYTOGENETICS TECHNOLOGIST MORPHOLOGY EVALUATION Routine 03/09/2023 6:00 AM CYTOGENETICS TECHNOLOGIST CBC WITH DIFFERENTIAL, B Routine 03/09/2023 6:00 AM CYTOGENETICS TECHNOLOGIST BASIC METABOLIC PANEL, S/P Routine 03/09/2023 6:00 AM CYTOGENETICS TECHNOLOGIST GLUCOSE POCT, B Routine 03/08/2023 9:00 PM CYTOGENETICS TECHNOLOGIST ADULT OXYGEN THERAPY Routine 03/08/2023 8:02 PM CYTOGENETICS TECHNOLOGIST GLUCOSE POCT, B Routine 03/08/2023 4:50 PM CYTOGENETICS TECHNOLOGIST EMERGENCY DEPARTMENT IMAGE EXAM Routine 03/08/2023 2:50 PM CYTOGENETICS TECHNOLOGIST ADULT OXYGEN THERAPY Routine 03/08/2023 1:59 PM CYTOGENETICS TECHNOLOGIST ADULT OXYGEN THERAPY Routine 03/08/2023 1:59 PM CYTOGENETICS TECHNOLOGIST GLUCOSE POCT, B Routine 03/08/2023 7:50 AM CYTOGENETICS TECHNOLOGIST GLUCOSE POCT, B Routine 03/07/2023 8:11 PM CYTOGENETICS TECHNOLOGIST GLUCOSE POCT, B Routine 03/07/2023 4:51 PM CYTOGENETICS TECHNOLOGIST GLUCOSE POCT, B Routine 03/07/2023 1:03 PM CYTOGENETICS TECHNOLOGIST GLUCOSE POCT, B Routine 03/07/2023 8:09 AM CYTOGENETICS TECHNOLOGIST HEMOGLOBIN, B Routine 03/07/2023 7:32 AM CYTOGENETICS TECHNOLOGIST GLUCOSE POCT, B Routine 03/06/2023 10:07 PM CYTOGENETICS TECHNOLOGIST GLUCOSE POCT, B Routine 03/06/2023 6:12 PM CYTOGENETICS TECHNOLOGIST GLUCOSE POCT, B Routine 03/06/2023 5:08 PM CYTOGENETICS TECHNOLOGIST GLUCOSE POCT, B Routine 03/06/2023 12:33 PM CYTOGENETICS TECHNOLOGIST GLUCOSE POCT, B Routine 03/06/2023 7:52 AM CYTOGENETICS TECHNOLOGIST GLUCOSE POCT, B Routine 03/05/2023 10:37 PM CYTOGENETICS TECHNOLOGIST GLUCOSE POCT, B Routine 03/05/2023 7:35 PM CYTOGENETICS TECHNOLOGIST GLUCOSE POCT, B Routine 03/05/2023 3:27 PM CYTOGENETICS TECHNOLOGIST GLUCOSE POCT, B Routine 03/05/2023 11:59 AM CYTOGENETICS TECHNOLOGIST HEMOGLOBIN, B Routine 03/05/2023 7:39 AM CYTOGENETICS TECHNOLOGIST GLUCOSE POCT, B Routine 03/05/2023 7:18 AM CYTOGENETICS TECHNOLOGIST GLUCOSE POCT, B Routine 03/04/2023 10:34 PM CYTOGENETICS TECHNOLOGIST GLUCOSE POCT, B Routine 03/04/2023 6:31 PM CYTOGENETICS TECHNOLOGIST GLUCOSE POCT, B Routine 03/04/2023 11:29 AM CYTOGENETICS TECHNOLOGIST GLUCOSE POCT, B Routine 03/04/2023 8:20 AM CYTOGENETICS TECHNOLOGIST HEMOGLOBIN, B Routine 03/04/2023 6:41 AM CYTOGENETICS TECHNOLOGIST GLUCOSE POCT, B Routine 03/03/2023 8:18 PM CYTOGENETICS TECHNOLOGIST GLUCOSE POCT, B Routine 03/03/2023 6:32 PM CYTOGENETICS TECHNOLOGIST GLUCOSE POCT, B Routine 03/03/2023 12:37 PM CYTOGENETICS TECHNOLOGIST GLUCOSE POCT, B Routine 03/03/2023 9:11 AM CYTOGENETICS TECHNOLOGIST HEMOGLOBIN, B Routine 03/03/2023 6:48 AM CYTOGENETICS TECHNOLOGIST GLUCOSE POCT, B Routine 03/02/2023 9:24 PM CYTOGENETICS TECHNOLOGIST GLUCOSE POCT, B Routine 03/02/2023 6:13 PM CYTOGENETICS TECHNOLOGIST GLUCOSE POCT, B Routine 03/02/2023 1:30 PM CYTOGENETICS TECHNOLOGIST GLUCOSE POCT, B Routine 03/02/2023 7:48 AM CYTOGENETICS TECHNOLOGIST CBC WITH DIFFERENTIAL, B Routine 03/02/2023 6:11 AM CYTOGENETICS TECHNOLOGIST BASIC METABOLIC PANEL, S/P Routine 03/02/2023 6:11 AM CYTOGENETICS TECHNOLOGIST GLUCOSE POCT, B Routine 03/01/2023 9:33 PM CYTOGENETICS TECHNOLOGIST GLUCOSE POCT, B Routine 03/01/2023 6:03 PM CYTOGENETICS TECHNOLOGIST GLUCOSE POCT, B Routine 03/01/2023 12:43 PM CYTOGENETICS TECHNOLOGIST GLUCOSE POCT, B Routine 03/01/2023 8:52 AM CYTOGENETICS TECHNOLOGIST CBC WITH DIFFERENTIAL, B Routine 03/01/2023 7:01 AM CYTOGENETICS TECHNOLOGIST BASIC METABOLIC PANEL, S/P Routine 03/01/2023 7:01 AM CYTOGENETICS TECHNOLOGIST GLUCOSE POCT, B Routine 02/28/2023 11:22 PM CYTOGENETICS TECHNOLOGIST GLUCOSE POCT, B Routine 02/28/2023 5:54 PM CYTOGENETICS TECHNOLOGIST GLUCOSE POCT, B Routine 02/28/2023 1:01 PM CYTOGENETICS TECHNOLOGIST GLUCOSE POCT, B Routine 02/28/2023 8:33 AM CYTOGENETICS TECHNOLOGIST BASIC METABOLIC PANEL, S/P Routine 02/28/2023 7:26 AM CYTOGENETICS TECHNOLOGIST CBC WITH DIFFERENTIAL, B Routine 02/28/2023 7:26 AM CYTOGENETICS TECHNOLOGIST GLUCOSE POCT, B Routine 02/27/2023 10:57 PM CYTOGENETICS TECHNOLOGIST GLUCOSE POCT, B Routine 02/27/2023 6:19 PM CYTOGENETICS TECHNOLOGIST GLUCOSE POCT, B Routine 02/27/2023 11:29 AM CYTOGENETICS TECHNOLOGIST GLUCOSE POCT, B Routine 02/27/2023 7:45 AM CYTOGENETICS TECHNOLOGIST BASIC METABOLIC PANEL, S/P Routine 02/27/2023 6:04 AM CYTOGENETICS TECHNOLOGIST CBC WITH DIFFERENTIAL, B Routine 02/27/2023 6:04 AM CYTOGENETICS TECHNOLOGIST GLUCOSE POCT, B Routine 02/26/2023 10:21 PM CYTOGENETICS TECHNOLOGIST GLUCOSE POCT, B Routine 02/26/2023 5:13 PM CYTOGENETICS TECHNOLOGIST GLUCOSE POCT, B Routine 02/26/2023 11:50 AM CYTOGENETICS TECHNOLOGIST GLUCOSE POCT, B Routine 02/26/2023 7:12 AM CYTOGENETICS TECHNOLOGIST CBC WITH DIFFERENTIAL, B Routine 02/26/2023 5:39 AM CYTOGENETICS TECHNOLOGIST BASIC METABOLIC PANEL, S/P Routine 02/26/2023 5:39 AM CYTOGENETICS TECHNOLOGIST GLUCOSE POCT, B Routine 02/25/2023 9:11 PM CYTOGENETICS TECHNOLOGIST GLUCOSE POCT, B Routine 02/25/2023 5:17 PM CYTOGENETICS TECHNOLOGIST GLUCOSE POCT, B Routine 02/25/2023 11:52 AM CYTOGENETICS TECHNOLOGIST FAMILY MEDICINE IMAGE EXAM Routine 02/25/2023 11:08 AM CYTOGENETICS TECHNOLOGIST IR LUMBAR SPINE FACET INJECTION RIGHT RAD - Routine (most inpatients and all outpatients) 02/25/2023 10:48 AM CYTOGENETICS TECHNOLOGIST GLUCOSE POCT, B Routine 02/25/2023 8:09 AM CYTOGENETICS TECHNOLOGIST HEMOGLOBIN, B Routine 02/25/2023 7:21 AM CYTOGENETICS TECHNOLOGIST GLUCOSE POCT, B Routine 02/24/2023 8:40 PM CYTOGENETICS TECHNOLOGIST GLUCOSE POCT, B Routine 02/24/2023 5:28 PM CYTOGENETICS TECHNOLOGIST GLUCOSE POCT, B Routine 02/24/2023 12:12 PM CYTOGENETICS TECHNOLOGIST GLUCOSE POCT, B Routine 02/24/2023 8:18 AM CYTOGENETICS TECHNOLOGIST ELECTROLYTE (CHEM 4) PANEL, S/P Routine 02/24/2023 5:44 AM CYTOGENETICS TECHNOLOGIST CBC WITHOUT DIFFERENTIAL, B Routine 02/24/2023 5:44 AM CYTOGENETICS TECHNOLOGIST GLUCOSE POCT, B Routine 02/23/2023 10:50 PM CYTOGENETICS TECHNOLOGIST VANCOMYCIN, TROUGH, S Timed 02/23/2023 6:28 PM CYTOGENETICS TECHNOLOGIST GLUCOSE POCT, B Routine 02/23/2023 6:17 PM CYTOGENETICS TECHNOLOGIST GLUCOSE POCT, B Routine 02/23/2023 5:30 PM CYTOGENETICS TECHNOLOGIST GLUCOSE POCT, B Routine 02/23/2023 12:15 PM CYTOGENETICS TECHNOLOGIST GLUCOSE POCT, B Routine 02/23/2023 8:50 AM CYTOGENETICS TECHNOLOGIST CBC WITH DIFFERENTIAL, B Routine 02/23/2023 7:04 AM CYTOGENETICS TECHNOLOGIST BASIC METABOLIC PANEL, S/P Routine 02/23/2023 7:04 AM CYTOGENETICS TECHNOLOGIST GLUCOSE POCT, B Routine 02/22/2023 10:04 PM CYTOGENETICS TECHNOLOGIST GLUCOSE POCT, B Routine 02/22/2023 6:02 PM CYTOGENETICS TECHNOLOGIST BACTERIA / RONDA CULTURE, BLOOD Routine 02/22/2023 4:47 PM CYTOGENETICS TECHNOLOGIST BACTERIA / RONDA CULTURE, BLOOD Routine 02/22/2023 4:40 PM CYTOGENETICS TECHNOLOGIST GLUCOSE POCT, B Routine 02/22/2023 12:54 PM CYTOGENETICS TECHNOLOGIST PET CT SKULL TO THIGH RAD - Routine (most inpatients and all outpatients) 02/22/2023 12:21 PM CYTOGENETICS TECHNOLOGIST GLUCOSE POCT, B Routine 02/22/2023 7:25 AM CYTOGENETICS TECHNOLOGIST BASIC METABOLIC PANEL, S/P Routine 02/22/2023 5:06 AM CYTOGENETICS TECHNOLOGIST CBC WITHOUT DIFFERENTIAL, B Routine 02/22/2023 5:06 AM CYTOGENETICS TECHNOLOGIST HEMOGLOBIN, B STAT 02/22/2023 12:13 AM CYTOGENETICS TECHNOLOGIST GLUCOSE POCT, B Routine 02/21/2023 9:19 PM CYTOGENETICS TECHNOLOGIST SPSMA RESULT STAT 02/21/2023 4:34 PM CYTOGENETICS TECHNOLOGIST HEMOGLOBIN, B STAT 02/21/2023 4:34 PM CYTOGENETICS TECHNOLOGIST HEMOGLOBIN, B STAT 02/21/2023 4:34 PM CYTOGENETICS TECHNOLOGIST GLUCOSE POCT, B Routine 02/21/2023 4:27 PM CYTOGENETICS TECHNOLOGIST MR CERVICAL SPINE WITHOUT IV CONTRAST RAD - Routine (most inpatients and all outpatients) 02/21/2023 3:[address] ABDOMEN PELVIS ANGIOGRAM WITH IV CONTRAST RAD - Routine (most inpatients and all outpatients) 02/21/2023 12:[address]ICS TECHNOLOGIST [address] LUMBAR SPINE WITH IV CONTRAST RAD - Routine (most inpatients and all outpatients) 02/21/2023 12:26 PM CYTOGENETICS TECHNOLOGIST GLUCOSE POCT, B Routine 02/21/2023 11:33 AM CYTOGENETICS TECHNOLOGIST BILIRUBIN DIRECT, S/P Routine 02/21/2023 9:27 AM CYTOGENETICS TECHNOLOGIST BILIRUBIN, TOT, S/P Routine 02/21/2023 9:27 AM CYTOGENETICS TECHNOLOGIST LACTATE DEHYDROGENASE (LD), S Routine 02/21/2023 9:27 AM CYTOGENETICS TECHNOLOGIST HAPTOGLOBIN, S Routine 02/21/2023 9:27 AM CYTOGENETICS TECHNOLOGIST GLUCOSE POCT, B Routine 02/21/2023 7:55 AM CYTOGENETICS TECHNOLOGIST PREPARE RED BLOOD CELLS Routine 02/22/20 7:35 AM CYTOGENETICS TECHNOLOGIST TYPE AND SCREEN STAT 02/21/2023 7:35 AM CYTOGENETICS TECHNOLOGIST HEMOGLOBIN, B STAT 02/21/2023 7:35 AM CYTOGENETICS TECHNOLOGIST BASIC METABOLIC PANEL, S/P Routine 02/21/2023 1:32 AM CYTOGENETICS TECHNOLOGIST CBC WITHOUT DIFFERENTIAL, B Routine 02/21/2023 1:32 AM CYTOGENETICS TECHNOLOGIST BACTERIA / RONDA CULTURE, BLOOD Routine 02/21/2023 1:32 AM CYTOGENETICS TECHNOLOGIST BACTERIA / RONDA CULTURE, BLOOD Routine 02/21/2023 1:32 AM CYTOGENETICS TECHNOLOGIST BACTERIAL CULTURE, AEROBIC + SUSC, URINE Routine 02/20/2023 10:50 PM CYTOGENETICS TECHNOLOGIST GLUCOSE POCT, B Routine 02/20/2023 8:46 PM CYTOGENETICS TECHNOLOGIST DX LUMBAR SPINE 2-3 VIEWS RAD - Semiurgent (Fast; most ED patients; some inpatients) 02/20/2023 6:25 PM CYTOGENETICS TECHNOLOGIST GLUCOSE POCT, B Routine 02/20/2023 5:34 PM CYTOGENETICS TECHNOLOGIST INFLUENZA A, B, RSV, PCR, RAPID, V Routine 02/20/2023 4:11 PM CYTOGENETICS TECHNOLOGIST SARS CORONAVIRUS 2, PCR RAPID, V Routine 02/20/2023 4:11 PM CYTOGENETICS TECHNOLOGIST GLUCOSE POCT, B Routine 02/20/2023 11:48 AM CYTOGENETICS TECHNOLOGIST MR LUMBAR SPINE WITHOUT IV CONTRAST RAD - Routine (most inpatients and all outpatients) 02/20/2023 10:42 AM CYTOGENETICS TECHNOLOGIST GLUCOSE POCT, B Routine 02/20/2023 8:01 AM CYTOGENETICS TECHNOLOGIST [facility] INTERNAL MEDICINE IMAGE EXAM Routine 02/20/2023 6:38 AM MST MICROSCOPIC MANUAL STAT 02/20/2023 6:05 AM CYTOGENETICS TECHNOLOGIST DIPSTICK, U STAT 02/20/2023 6:05 AM CYTOGENETICS TECHNOLOGIST PH, U STAT 02/20/2023 6:05 AM CYTOGENETICS TECHNOLOGIST OSMOLALITY, U STAT 02/20/2023 6:05 AM CYTOGENETICS TECHNOLOGIST URINALYSIS WITH MICROSCOPIC STAT 02/20/2023 6:05 AM CYTOGENETICS TECHNOLOGIST BACTERIAL CULTURE, AEROBIC + SUSC, URINE STAT 02/20/2023 6:05 AM CYTOGENETICS TECHNOLOGIST LACTATE, B/P STAT 02/20/2023 2:34 AM CYTOGENETICS TECHNOLOGIST C-REACTIVE PROTEIN (CRP), S/P STAT 02/20/2023 2:34 AM CYTOGENETICS TECHNOLOGIST THYROID-STIMULATING HORMONE-SENSITIVE (S-TSH) STAT 02/20/2023 2:34 AM CYTOGENETICS TECHNOLOGIST BASIC METABOLIC PANEL, S/P STAT 02/20/2023 2:34 AM CYTOGENETICS TECHNOLOGIST CBC WITH DIFFERENTIAL, B STAT 02/20/2023 2:34 AM CYTOGENETICS TECHNOLOGIST FERRITIN, S Routine 02/18/2023 7:34 AM CDT Malignant Neoplasm Of Colon Ascending (HCC) HEMOGLOBIN A1C, B Routine 02/18/2023 7:34 AM CDT Malignant Neoplasm Of Colon Ascending (HCC) Diabetes Mellitus Type 2 (HCC) GLUCOSE, FASTING, S/P Routine 02/18/2023 7:34 AM CDT Malignant Neoplasm Of Colon Ascending (HCC) Diabetes Mellitus Type 2 (HCC) COMPREHENSIVE METABOLIC PANEL, S/P Routine 02/18/2023 7:34 AM CDT Malignant Neoplasm Of Colon Ascending (HCC) CBC WITH DIFFERENTIAL, B Routine 02/18/2023 7:34 AM CDT Malignant Neoplasm Of Colon Ascending (HCC) BILIRUBIN DIRECT, S/P Routine 02/18/2023 7:34 AM CDT Malignant Neoplasm Of Colon Ascending (HCC) CARCINOEMBRYONIC AG (CEA), S Routine 02/18/2023 7:33 AM CDT Malignant Neoplasm Of Colon Ascending (HCC) ECG Routine 02/17/2023 3:17 PM CDT Malignant Neoplasm Of Colon Ascending (HCC) INTERPRETATION OF OUTSIDE CT ABDOMEN AND OR PELVIS RAD - Routine (most inpatients and all outpatients) 02/08/2023 7:00 AM CDT Malignant Neoplasm Of Colon Ascending (HCC) INTERPRETATION OF OUTSIDE CT CHEST RAD - Routine (most inpatients and all outpatients) 02/08/2023 6:59 AM CDT Malignant Neoplasm Of Colon Ascending (HCC) OUTSIDE CT BODY Routine 02/01/2023 4:00 PM CDT PATHOLOGY REVIEW OF OUTSIDE MATERIAL Routine 01/31/2023 2:45 PM CDT Malignant Neoplasm Of Colon Ascending (HCC) OUTSIDE CT NEURO Routine 12/31/2022 9:[address] NEURO Routine 12/31/2022 9:30 PM CDT OUTSIDE XA Routine 11/30/2022 9:25 AM CDT OUTSIDE MR NEURO Routine 11/29/2022 4:[address] NEURO Routine 11/27/2022 11:30 PM CDT HC URINALYSIS AUTO WO MICRO Routine 11/27/2022 3:28 AM CDT DIPSTICK, U STAT 11/27/2022 3:23 AM CDT PH, U STAT 11/27/2022 3:23 AM CDT OSMOLALITY, U STAT 11/27/2022 3:23 AM CDT MICROSCOPIC AUTOMATED STAT 11/27/2022 3:23 AM CDT URINALYSIS WITH MICROSCOPIC STAT 11/27/2022 3:23 AM CDT BACTERIAL CULTURE, AEROBIC + SUSC, URINE STAT 11/27/2022 3:23 AM CDT GLUCOSE POCT, B Routine 11/09/2022 11:35 AM CDT GLUCOSE POCT, B Routine 11/09/2022 7:48 AM CDT GLUCOSE POCT, B Routine 11/09/2022 2:55 AM CDT GLUCOSE POCT, B Routine 11/08/2022 7:34 PM CDT GLUCOSE POCT, B Routine 11/08/2022 4:50 PM CDT GLUCOSE POCT, B Routine 11/08/2022 11:19 AM CDT GLUCOSE POCT, B Routine 11/08/2022 8:11 AM CDT ADULT OXYGEN THERAPY Routine 11/08/2022 8:00 AM CDT GLUCOSE POCT, B Routine 11/08/2022 2:21 AM CDT GLUCOSE POCT, B Routine 11/07/2022 8:22 PM CDT ADULT OXYGEN THERAPY Routine 11/07/2022 8:00 PM CDT GLUCOSE POCT, B Routine 11/07/2022 4:31 PM CDT GLUCOSE POCT, B Routine 11/07/2022 11:28 AM CDT ADULT OXYGEN THERAPY Routine 11/07/2022 8:00 AM CDT GLUCOSE POCT, B Routine 11/07/2022 7:27 AM CDT GLUCOSE POCT, B Routine 11/07/2022 2:07 AM CDT GLUCOSE POCT, B Routine 11/06/2022 8:07 PM CDT ADULT OXYGEN THERAPY Routine 11/06/2022 8:00 PM CDT GLUCOSE POCT, B Routine 11/06/2022 4:37 PM CDT GLUCOSE POCT, B Routine 11/06/2022 11:31 AM CDT ADULT OXYGEN THERAPY Routine 11/06/2022 8:00 AM CDT GLUCOSE POCT, B Routine 11/06/2022 7:24 AM CDT GLUCOSE POCT, B Routine 11/06/2022 2:27 AM CDT GLUCOSE POCT, B Routine 2022 9:02 PM CDT ADULT OXYGEN THERAPY Routine 2022 8:00 PM CDT GLUCOSE POCT, B Routine 2022 4:22 PM CDT GLUCOSE POCT, B Routine 2022 11:16 AM CDT ADULT OXYGEN THERAPY Routine 2022 8:00 AM CDT GLUCOSE POCT, B Routine 2022 7:33 AM CDT ADULT OXYGEN THERAPY Routine 11/04/2022 8:00 PM CDT GLUCOSE POCT, B Routine 11/04/2022 7:39 PM CDT GLUCOSE POCT, B Routine 11/04/2022 4:52 PM CDT GLUCOSE POCT, B Routine 11/04/2022 12:03 PM CDT ADULT OXYGEN THERAPY Routine 11/04/2022 8:00 AM CDT GLUCOSE POCT, B Routine 11/04/2022 7:34 AM CDT GLUCOSE POCT, B Routine 11/03/2022 8:08 PM CDT ADULT OXYGEN THERAPY Routine 11/03/2022 8:00 PM CDT GLUCOSE POCT, B Routine 11/03/2022 4:40 PM CDT GLUCOSE POCT, B Routine 11/03/2022 11:30 AM CDT ADULT OXYGEN THERAPY Routine 11/03/2022 8:00 AM CDT GLUCOSE POCT, B Routine 11/03/2022 7:50 AM CDT GLUCOSE POCT, B Routine 11/02/2022 8:17 PM CDT ADULT OXYGEN THERAPY Routine 11/02/2022 8:00 PM CDT GLUCOSE POCT, B Routine 11/02/2022 4:39 PM CDT GLUCOSE POCT, B Routine 11/02/2022 11:52 AM CDT ADULT OXYGEN THERAPY Routine 11/02/2022 8:00 AM CDT GLUCOSE POCT, B Routine 11/02/2022 7:34 AM CDT CBC WITH DIFFERENTIAL, B Routine 11/02/2022 7:26 AM CDT ADULT OXYGEN THERAPY Routine 11/01/2022 8:00 PM CDT GLUCOSE POCT, B Routine 11/01/2022 7:47 PM CDT GLUCOSE POCT, B Routine 11/01/2022 5:04 PM CDT GLUCOSE POCT, B Routine 11/01/2022 11:40 AM CDT ADULT OXYGEN THERAPY Routine 11/01/2022 8:00 AM CDT GLUCOSE POCT, B Routine 11/01/2022 7:20 AM CDT CREATININE WITH EGFR, S/P Routine 11/01/2022 6:42 AM CDT GLUCOSE POCT, B Routine 10/31/2022 8:39 PM CDT ADULT OXYGEN THERAPY Routine 10/31/2022 8:00 PM CDT GLUCOSE POCT, B Routine 10/31/2022 4:59 PM CDT GLUCOSE POCT, B Routine 10/31/2022 12:03 PM CDT ADULT OXYGEN THERAPY Routine 10/31/2022 8:00 AM CDT GLUCOSE POCT, B Routine 10/31/2022 7:55 AM CDT ADULT OXYGEN THERAPY Routine 10/30/2022 8:00 PM CDT GLUCOSE POCT, B Routine 10/30/2022 7:55 PM CDT GLUCOSE POCT, B Routine 10/30/2022 4:59 PM CDT GLUCOSE POCT, B Routine 10/30/2022 11:52 AM CDT ADULT OXYGEN THERAPY Routine 10/30/2022 8:00 AM CDT GLUCOSE POCT, B Routine 10/30/2022 7:46 AM CDT GLUCOSE POCT, B Routine 10/29/2022 8:21 PM CDT ADULT OXYGEN THERAPY Routine 10/29/2022 8:00 PM CDT GLUCOSE POCT, B Routine 10/29/2022 5:08 PM CDT GLUCOSE POCT, B Routine 10/29/2022 11:51 AM CDT ADULT OXYGEN THERAPY Routine 10/29/2022 8:00 AM CDT GLUCOSE POCT, B Routine 10/29/2022 7:47 AM CDT HEMOGLOBIN, B Routine 10/29/2022 7:23 AM CDT GLUCOSE POCT, B Routine 10/28/2022 8:30 PM CDT ADULT OXYGEN THERAPY Routine 10/28/2022 8:00 PM CDT GLUCOSE POCT, B Routine 10/28/2022 4:20 PM CDT NURSING IMAGE EXAM Routine 10/28/2022 12:05 PM CDT GLUCOSE POCT, B Routine 10/28/2022 11:38 AM CDT ADULT OXYGEN THERAPY Routine 10/28/2022 8:00 AM CDT GLUCOSE POCT, B Routine 10/28/2022 7:52 AM CDT ADULT OXYGEN THERAPY Routine 10/27/2022 8:00 PM CDT GLUCOSE POCT, B Routine 10/27/2022 7:53 PM CDT GLUCOSE POCT, B Routine 10/27/2022 4:46 PM CDT GLUCOSE POCT, B Routine 10/27/2022 11:47 AM CDT ADULT OXYGEN THERAPY Routine 10/27/2022 8:01 AM CDT GLUCOSE POCT, B Routine 10/27/2022 7:21 AM CDT GLUCOSE POCT, B Routine 10/27/2022 2:14 AM CDT ADULT OXYGEN THERAPY Routine 10/26/2022 8:01 PM CDT GLUCOSE POCT, B Routine 10/26/2022 7:58 PM CDT GLUCOSE POCT, B Routine 10/26/2022 4:48 PM CDT GLUCOSE POCT, B Routine 10/26/2022 12:06 PM CDT ADULT OXYGEN THERAPY Routine 10/26/2022 8:01 AM CDT GLUCOSE POCT, B Routine 10/26/2022 8:00 AM CDT GLUCOSE POCT, B Routine 10/25/2022 8:15 PM CDT ADULT OXYGEN THERAPY Routine 10/25/2022 8:01 PM CDT GLUCOSE POCT, B Routine 10/25/2022 5:16 PM CDT GLUCOSE POCT, B Routine 10/25/2022 12:21 PM CDT ADULT OXYGEN THERAPY Routine 10/25/2022 8:01 AM CDT GLUCOSE POCT, B Routine 10/25/2022 7:33 AM CDT GLUCOSE POCT, B Routine 10/24/2022 8:03 PM CDT ADULT OXYGEN THERAPY Routine 10/24/2022 8:00 PM CDT GLUCOSE POCT, B Routine 10/24/2022 4:43 PM CDT GLUCOSE POCT, B Routine 10/24/2022 11:46 AM CDT ADULT OXYGEN THERAPY Routine 10/24/2022 8:00 AM CDT GLUCOSE POCT, B Routine 10/24/2022 7:51 AM CDT CBC WITH DIFFERENTIAL, B Routine 10/24/2022 7:37 AM CDT GLUCOSE POCT, B Routine 10/23/2022 8:15 PM CDT ADULT OXYGEN THERAPY Routine 10/23/2022 8:00 PM CDT GLUCOSE POCT, B Routine 10/23/2022 4:47 PM CDT GLUCOSE POCT, B Routine 10/23/2022 11:44 AM CDT CREATININE WITH EGFR, S/P Routine 10/23/2022 9:06 AM CDT ADULT OXYGEN THERAPY Routine 10/23/2022 8:01 AM CDT GLUCOSE POCT, B Routine 10/23/2022 7:33 AM CDT GLUCOSE POCT, B Routine 10/22/2022 8:39 PM CDT ADULT OXYGEN THERAPY Routine 10/22/2022 8:01 PM CDT GLUCOSE POCT, B Routine 10/22/2022 4:38 PM CDT FAMILY MEDICINE IMAGE EXAM Routine 10/22/2022 2:58 PM CDT GLUCOSE POCT, B Routine 10/22/2022 1:41 PM CDT ADULT OXYGEN THERAPY Routine 10/22/2022 12:48 PM CDT ADULT OXYGEN THERAPY Routine 10/22/2022 12:48 PM CDT ADULT OXYGEN THERAPY Routine 10/22/2022 12:48 PM CDT GLUCOSE POCT, B Routine 10/22/2022 8:23 AM CDT GLUCOSE POCT, B Routine 10/21/2022 8:59 PM CDT GLUCOSE POCT, B Routine 10/21/2022 5:46 PM CDT GLUCOSE POCT, B Routine 10/21/2022 9:45 AM CDT GLUCOSE POCT, B Routine 10/20/2022 8:53 PM CDT GLUCOSE POCT, B Routine 10/20/2022 6:19 PM CDT GLUCOSE POCT, B Routine 10/20/2022 1:48 PM CDT GLUCOSE POCT, B Routine 10/20/2022 8:15 AM CDT GLUCOSE POCT, B Routine 10/19/2022 8:47 PM CDT GLUCOSE POCT, B Routine 10/19/2022 5:18 PM CDT HEMOGLOBIN, B STAT 10/19/2022 9:46 AM CDT GLUCOSE POCT, B Routine 10/19/2022 7:53 AM CDT GLUCOSE POCT, B Routine 10/18/2022 8:15 PM CDT GLUCOSE POCT, B Routine 10/18/2022 5:48 PM CDT GLUCOSE POCT, B Routine 10/18/2022 7:15 AM CDT GLUCOSE POCT, B Routine 10/17/2022 8:32 PM CDT GLUCOSE POCT, B Routine 10/17/2022 5:15 PM CDT GLUCOSE POCT, B Routine 10/17/2022 7:57 AM CDT GLUCOSE POCT, B Routine 10/16/2022 8:14 AM CDT CBC WITHOUT DIFFERENTIAL, B Routine 10/16/2022 7:20 AM CDT GLUCOSE POCT, B Routine 10/16/2022 6:09 AM CDT GLUCOSE POCT, B Routine 10/15/2022 9:03 PM CDT GLUCOSE POCT, B Routine 10/15/2022 5:51 PM CDT GLUCOSE POCT, B Routine 10/15/2022 7:03 AM CDT BASIC METABOLIC PANEL, S/P Routine 10/15/2022 6:30 AM CDT CBC WITHOUT DIFFERENTIAL, B Routine 10/15/2022 6:30 AM CDT GLUCOSE POCT, B Routine 10/14/2022 4:22 PM CDT GLUCOSE POCT, B Routine 10/14/2022 7:04 AM CDT CBC WITHOUT DIFFERENTIAL, B Routine 10/14/2022 6:13 AM CDT GLUCOSE POCT, B Routine 10/13/2022 5:03 PM CDT GLUCOSE POCT, B Routine 10/13/2022 7:38 AM CDT BASIC METABOLIC PANEL, S/P Routine 10/13/2022 7:16 AM CDT CBC WITH DIFFERENTIAL, B Routine 10/13/2022 7:16 AM CDT TRANSFUSE RED BLOOD CELLS Routine 10/12/2022 4:30 PM CDT GLUCOSE POCT, B Routine 10/12/2022 4:19 PM CDT GLUCOSE POCT, B Routine 10/12/2022 8:08 AM CDT PHOSPHORUS (INORGANIC), S Routine 10/12/2022 6:53 AM CDT CBC WITH DIFFERENTIAL, B Routine 10/12/2022 6:53 AM CDT BASIC METABOLIC PANEL, S/P Routine 10/12/2022 6:53 AM CDT GLUCOSE POCT, B Routine 10/11/2022 5:58 PM CDT PREPARE RED BLOOD CELLS Routine 10/12/19 2:11 PM CDT RENAL FUNCTION PANEL, S Routine 10/12/19 2:11 PM CDT TYPE AND SCREEN Routine 10/11/2022 2:11 PM CDT DIPSTICK, U Routine 10/11/2022 1:21 PM CDT PH, U Routine 10/11/2022 1:21 PM CDT OSMOLALITY, U Routine 10/11/2022 1:21 PM CDT MICROSCOPIC AUTOMATED Routine 10/11/2022 1:21 PM CDT URINALYSIS WITH MICROSCOPIC Routine 10/11/2022 1:21 PM CDT HEMOQUANT, F Routine 10/11/2022 1:21 PM CDT US KIDNEYS BILATERAL WITH BLADDER RAD - Routine (most inpatients and all outpatients) 10/11/2022 8:30 AM CDT GLUCOSE POCT, B Routine 10/11/2022 7:55 AM CDT PHOSPHORUS (INORGANIC), S Routine 10/11/2022 6:09 AM CDT MAGNESIUM, S Routine 10/11/2022 6:09 AM CDT CBC WITHOUT DIFFERENTIAL, B Routine 10/11/2022 6:09 AM CDT BASIC METABOLIC PANEL, S/P Routine 10/11/2022 6:09 AM CDT GLUCOSE POCT, B Routine 10/10/2022 8:58 PM CDT HEMOGLOBIN, B Timed 10/10/2022 5:52 PM CDT GLUCOSE POCT, B Routine 10/10/2022 1:58 PM CDT GLUCOSE POCT, B Routine 10/10/2022 8:14 AM CDT BASIC METABOLIC PANEL, S/P Routine 10/10/2022 6:09 AM CDT CBC WITHOUT DIFFERENTIAL, B Routine 10/10/2022 6:09 AM CDT GLUCOSE POCT, B Routine 10/09/2022 11:29 PM CDT GLUCOSE POCT, B Routine 10/09/2022 5:37 PM CDT GLUCOSE POCT, B Routine 10/09/2022 9:19 AM CDT CBC WITHOUT DIFFERENTIAL, B Routine 10/09/2022 5:39 AM CDT COMPREHENSIVE METABOLIC PANEL, S/P Routine 10/09/2022 5:39 AM CDT PHOSPHORUS (INORGANIC), S Routine 10/09/2022 5:39 AM CDT MAGNESIUM, S Routine 10/09/2022 5:39 AM CDT GLUCOSE POCT, B Routine 10/08/2022 10:16 PM CDT HEMOGLOBIN, B Timed 10/08/2022 6:00 PM CDT GLUCOSE POCT, B Routine 10/08/2022 5:53 PM CDT IR LUMBAR SPINE FACET INJECTION RIGHT RAD - Routine (most inpatients and all outpatients) 10/08/2022 3:35 PM CDT GLUCOSE POCT, B Routine 10/08/2022 7:56 AM CDT ECG Routine 10/08/2022 7:26 AM CDT SPSMA RESULT Routine 10/08/2022 7:05 AM CDT HC ORGANIC ACID 1 QUANT 2 Routine 10/08/2022 7:05 AM CDT MAGNESIUM, S Routine 10/08/2022 7:05 AM CDT RETICULOCYTES, B Routine 10/08/2022 7:05 AM CDT FOLATE, S Routine 10/08/2022 7:05 AM CDT PERNICIOUS ANEMIA CASCADE, S Routine 10/08/2022 7:05 AM CDT FERRITIN, S Routine 10/08/2022 7:05 AM CDT IRON AND TOT IRON-BINDING CAPACITY, S/P Routine 10/08/2022 7:05 AM CDT CBC WITHOUT DIFFERENTIAL, B Routine 10/08/2022 7:05 AM CDT BASIC METABOLIC PANEL, S/P Routine 10/08/2022 7:05 AM CDT GLUCOSE POCT, B Routine 10/07/2022 9:35 PM CDT MR LUMBAR SPINE WITHOUT IV CONTRAST RAD - Semiurgent (Fast; most ED patients; some inpatients) 10/07/2022 4:37 PM CDT CBC WITH DIFFERENTIAL, B STAT 10/07/2022 3:57 PM CDT BASIC METABOLIC PANEL, S/P STAT 10/07/2022 3:57 PM CDT EXTI LIPID PANEL W REFLEX MEASURED LDL Routine 10/01/2022 1:35 PM CDT VENOUS LOWER EXTREMITY - HEMODYNAMIC STUDY Routine 04/05/2022 8:33 AM CYTOGENETICS TECHNOLOGIST 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 Lower Extremity Non-Pressure 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) LOWER EXTREMITY ARTERIAL - STANDARD PROTOCOL Routine 04/05/2022 8:27 AM CYTOGENETICS TECHNOLOGIST 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 Lower Extremity Non-Pressure 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) ECG AMBULATORY REAL TIME CARDIAC MONITORING Routine 01/27/2022 7:31 AM CDT Atrial Fibrillation Unspecified ECG Routine 01/07/2022 11:21 AM CDT Atrial Fibrillation Unspecified HOLTER MONITOR - IN 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 Routine 01/05/2022 11:52 AM CDT Atrial Fibrillation Unspecified DX CHEST AP OR PA AND LATERAL 2 VIEWS RAD - Routine (most inpatients and all outpatients) 01/05/2022 10:29 AM CDT Atrial Fibrillation Unspecified PA T4 FREE Routine 01/04/2022 11:12 AM CDT THYROPEROXIDASE AB, S Routine 01/04/2022 11:12 AM CDT MAGNESIUM, S Routine 01/04/2022 11:12 AM CDT Atrial Fibrillation Unspecified THYROID FUNCTION CASCADE, S Routine 01/04/2022 11:12 AM CDT Atrial Fibrillation Unspecified COMPREHENSIVE METABOLIC PANEL, S/P Routine 01/04/2022 11:12 AM CDT Atrial Fibrillation Unspecified CBC WITHOUT DIFFERENTIAL, B Routine 01/04/2022 11:12 AM CDT Atrial Fibrillation Unspecified ECG Routine 01/04/2022 9:38 AM CDT Atrial Fibrillation Unspecified (TTE) 2D ECHO DOPPLER COLOR AND CONTRAST Routine 01/04/2022 9:00 AM CDT Atrial Fibrillation Unspecified OUTSIDE CT BODY Routine 04/15/2021 9:55 AM CYTOGENETICS TECHNOLOGIST PA CYSTOURETHROSCOPY Routine 03/03/2021 2:05 PM CYTOGENETICS TECHNOLOGIST Hematuria Pyuria Infection Urinary Tract Deficiency 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 DIPSTICK, U Routine 03/03/2021 11:43 AM CYTOGENETICS TECHNOLOGIST PA OSMOLALITY ASSAY URINE Routine 03/03/2021 11:43 AM CYTOGENETICS TECHNOLOGIST PH, RANDOM, U Routine 03/03/2021 11:43 AM CYTOGENETICS TECHNOLOGIST MICROSCOPIC MANUAL Routine 03/03/2021 11:43 AM CYTOGENETICS TECHNOLOGIST GRAM'S ST, U Routine 03/03/2021 11:43 AM CYTOGENETICS TECHNOLOGIST Hematuria Pyuria Infection Urinary Tract URINALYSIS WITH MICROSCOPIC Routine 03/03/2021 11:43 AM CYTOGENETICS TECHNOLOGIST Hematuria Pyuria Infection Urinary Tract URO UROFLOW Routine 03/03/2021 10:45 AM CYTOGENETICS TECHNOLOGIST Infection Urinary Tract Deficiency Urethral Sphincter Intrinsic DIPSTICK, U Routine 12/11/2020 1:01 PM CDT PA OSMOLALITY ASSAY URINE Routine 12/11/2020 1:01 PM CDT PH, RANDOM, U Routine 12/11/2020 1:01 PM CDT GRAM'S STAIN, CONFIRMATORY, U Routine 12/11/2020 1:01 PM CDT MICROSCOPIC MANUAL Routine 12/11/2020 1:[address], U Routine 12/11/2020 1:01 PM CDT Hypertension And Chronic Kidney Disease Stage 3 URINALYSIS WITH MICROSCOPIC Routine 12/11/2020 1:01 PM CDT Hypertension And Chronic Kidney Disease Stage 3 BACTERIAL CULTURE, AEROBIC + SUSC, URINE Routine 12/11/2020 1:01 PM CDT Hypertension And Chronic Kidney Disease Stage 3 Dysuria BASIC METABOLIC PANEL, S/P Routine 12/11/2020 12:51 PM CDT Hypertension And Chronic Kidney Disease Stage 3 CBC WITH DIFFERENTIAL, B Routine 12/11/2020 12:51 PM CDT Hypertension And Chronic Kidney Disease Stage [address] NEURO Routine 08/29/2020 9:05 AM CDT BACTERIAL CULTURE, AEROBIC + SUSC, URINE Routine 05/07/2019 10:59 AM CYTOGENETICS TECHNOLOGIST Stent Ureteral Indwelling PA CYSTHRSCPY RMVL FB/STENT SMPL Routine 05/07/2019 10:30 AM CYTOGENETICS TECHNOLOGIST Stone Kidney And Ureteral CT ABDOMEN PELVIS KIDNEY STONE QUANT WITHOUT IV CONTRAST RAD - Routine (most inpatients and all outpatients) 04/20/2019 1:00 PM CYTOGENETICS TECHNOLOGIST [facility] GLUCOSE POCT, B Routine 04/04/2019 3:39 PM CYTOGENETICS TECHNOLOGIST ADULT OXYGEN THERAPY Routine 04/04/2019 1:42 PM CYTOGENETICS TECHNOLOGIST FL FLUORO LESS THAN 1 HOUR RAD - Routine (most inpatients and all outpatients) 04/04/2019 1:34 PM CYTOGENETICS TECHNOLOGIST KIDNEY STONE ANALYSIS Routine 04/04/2019 1:26 PM CYTOGENETICS TECHNOLOGIST [facility] GLUCOSE POCT, B Routine 04/04/2019 12:43 PM CYTOGENETICS TECHNOLOGIST LDA ANE ENDOTRACHEAL AIRWAY Routine 04/04/2019 11:49 AM CYTOGENETICS TECHNOLOGIST URETEROSCOPY WITH LASER LITHOTRIPSY 04/04/2019 10:57 AM CYTOGENETICS TECHNOLOGIST [facility] Case Notes ANODE BUILDER 0848 GLUCOSE POCT, B Routine 04/04/2019 10:45 AM CYTOGENETICS TECHNOLOGIST GLUCOSE POCT, B Routine 03/15/2019 10:45 AM CYTOGENETICS TECHNOLOGIST GLUCOSE POCT, B Routine 03/15/2019 7:43 AM CYTOGENETICS TECHNOLOGIST GLUCOSE POCT, B Routine 03/15/2019 1:43 AM CYTOGENETICS TECHNOLOGIST GLUCOSE POCT, B Routine 03/14/2019 10:03 PM CYTOGENETICS TECHNOLOGIST GLUCOSE POCT, B Routine 03/14/2019 6:51 PM CYTOGENETICS TECHNOLOGIST GLUCOSE POCT, B Routine 03/14/2019 10:31 AM CYTOGENETICS TECHNOLOGIST ADULT OXYGEN THERAPY Routine 03/14/2019 8:00 AM CYTOGENETICS TECHNOLOGIST GLUCOSE POCT, B Routine 03/14/2019 1:03 AM CYTOGENETICS TECHNOLOGIST GLUCOSE POCT, B Routine 03/13/2019 9:53 PM CYTOGENETICS TECHNOLOGIST ADULT OXYGEN THERAPY Routine 03/13/2019 8:01 PM CYTOGENETICS TECHNOLOGIST GLUCOSE POCT, B Routine 03/13/2019 6:25 PM CYTOGENETICS TECHNOLOGIST GLUCOSE POCT, B Routine 03/13/2019 1:27 PM CYTOGENETICS TECHNOLOGIST ADULT OXYGEN THERAPY Routine 03/13/2019 8:01 AM CYTOGENETICS TECHNOLOGIST GLUCOSE POCT, B Routine 03/13/2019 8:01 AM CYTOGENETICS TECHNOLOGIST BASIC METABOLIC PANEL, S/P Routine 03/13/2019 2:47 AM CYTOGENETICS TECHNOLOGIST CBC WITHOUT DIFFERENTIAL, B Routine 03/13/2019 2:47 AM CYTOGENETICS TECHNOLOGIST GLUCOSE POCT, B Routine 03/12/2019 10:44 PM CYTOGENETICS TECHNOLOGIST ADULT OXYGEN THERAPY Routine 03/12/2019 8:01 PM CYTOGENETICS TECHNOLOGIST GLUCOSE POCT, B Routine 03/12/2019 5:00 PM CYTOGENETICS TECHNOLOGIST HEMOGLOBIN A1C, B Routine 03/12/2019 2:10 PM CYTOGENETICS TECHNOLOGIST GLUCOSE POCT, B Routine 03/12/2019 1:54 PM CYTOGENETICS TECHNOLOGIST FL FLUORO LESS THAN 1 HOUR RAD - Routine (most inpatients and all outpatients) 03/12/2019 1:11 PM CYTOGENETICS TECHNOLOGIST GLUCOSE POCT, B Routine 03/12/2019 1:05 PM CYTOGENETICS TECHNOLOGIST UROLOGY IMAGE EXAM Routine 03/12/2019 1:02 PM CYTOGENETICS TECHNOLOGIST LDA ANE ENDOTRACHEAL AIRWAY Routine 03/12/2019 12:27 PM CYTOGENETICS TECHNOLOGIST BACTERIAL CULTURE, AEROBIC + SUSC, URINE Routine 03/12/2019 12:25 PM CYTOGENETICS TECHNOLOGIST Nephrolithiasis FUNGAL CULTURE, ROUTINE Routine 03/12/20 19 12:25 PM CYTOGENETICS TECHNOLOGIST Nephrolithiasis RETROGRADE PYELOGRAM 03/12/2019 11:32 AM CYTOGENETICS TECHNOLOGIST Nephrolithiasis CYSTOURETHROSCOPY WITH PLACEMENT URETERAL STENT 03/12/2019 11:32 AM CYTOGENETICS TECHNOLOGIST Nephrolithiasis ECG STAT 03/12/2019 11:15 AM CYTOGENETICS TECHNOLOGIST GLUCOSE POCT, B Routine 03/12/2019 11:13 AM CYTOGENETICS TECHNOLOGIST GLUCOSE POCT, B Routine 03/12/2019 8:49 AM CYTOGENETICS TECHNOLOGIST BACTERIAL CULTURE, AEROBIC + SUSC, URINE Timed 03/12/2019 5:44 AM CYTOGENETICS TECHNOLOGIST BACTERIA / RONDA CULTURE, BLOOD Routine 03/12/2019 5:11 AM CYTOGENETICS TECHNOLOGIST BACTERIA / RONDA CULTURE, BLOOD Routine 03/12/2019 5:03 AM CYTOGENETICS TECHNOLOGIST MICROSCOPIC AUTOMATED Timed 03/12/2019 4:36 AM CYTOGENETICS TECHNOLOGIST KETONES,QL(U) Timed 03/12/2019 4:36 AM CYTOGENETICS TECHNOLOGIST URINALYSIS WITH MICROSCOPIC Timed 03/12/2019 4:36 AM CYTOGENETICS TECHNOLOGIST BASIC METABOLIC PANEL, S/P STAT 03/12/2019 3:58 AM CYTOGENETICS TECHNOLOGIST CBC WITH DIFFERENTIAL, B STAT 03/12/2019 3:58 AM CYTOGENETICS TECHNOLOGIST GLUCOSE POCT, B Routine 03/12/2019 3:50 AM CYTOGENETICS TECHNOLOGIST ADULT OXYGEN THERAPY Routine 03/12/2019 3:31 AM CYTOGENETICS TECHNOLOGIST ADULT OXYGEN THERAPY Routine 03/12/2019 3:31 AM CYTOGENETICS TECHNOLOGIST OUTSIDE CT BODY Routine 03/11/2019 11:[address] ABDOMEN PELVIS WITHOUT IV CONTRAST RAD - Routine (most inpatients and all outpatients) 12/12/2018 7:25 AM CDT Stones Uric Acid MONOCLONAL PROTEIN STUDY, 24 HR, U Routine 07/26/2018 9:00 AM CDT Diabetes Mellitus Type 2 (HCC) SUPERSATURATION, 24H, U Routine 07/27/19 19 9:00 AM CDT [facility] ABDOMEN PELVIS WITHOUT IV CONTRAST RAD - Routine (most inpatients and all outpatients) 07/25/2018 12:10 PM CDT [facility] RENAL FUNCTION PANEL, S Routine 07/26/19 19 11:21 AM CDT [facility] URIC ACID, S/P Routine 07/25/2018 11:21 AM CDT [facility] 1,25-DIHYDROXYVITAMIN D, S Routine 07/25/2018 11:21 AM CDT [facility] 25-HYDROXYVITAMIN D2 AND D3, S Routine 07/25/2018 11:21 AM CDT [facility] ALBUMIN, S/P Routine 07/25/2018 11:09 AM CDT Diabetes Mellitus Type 2 (HCC) KIDNEY STONE ANALYSIS Routine 07/25/2018 10:40 AM CDT [facility] OUTSIDE CT BODY Routine 12/25/2017 2:45 PM CDT ANESTHESIOLOGY IMAGE EXAM Routine 08/26/2016 10:[address] LUMBAR SPINE WITHOUT IV CONTRAST Routine 08/10/2016 10:02 AM CDT ALBUMIN, 24 HR, U Routine 08/13/2015 10:01 AM CDT DIPSTICK, POCT, U (DIPC1) Routine 07/30/2015 1:27 PM CDT POLYSOMNOGRAPHY Routine 07/28/2015 8:14 PM CDT PUL HOME OVERNIGHT OXIMETRY Routine 07/16/2015 9:00 PM CDT MICROSCOPIC MANUAL Routine 07/16/2015 1:09 PM CDT URINALYSIS WITH MICROSCOPIC Routine 07/16/2015 1:09 PM CDT LIPID PANEL, S Routine 07/16/2015 11:49 AM CDT ASPARTATE AMINOTRANSFERASE (AST), S/P Routine 07/16/2015 11:49 AM CDT CREATININE WITH EGFR, S/P Routine 07/16/2015 11:49 AM CDT CBC WITH DIFFERENTIAL, B Routine 07/16/2015 11:49 AM CDT HEMOGLOBIN A1C, B Routine 07/10/2015 10:39 AM CDT DX HIP TO ANKLE STANDING Routine 07/10/2015 8:52 AM CDT DX KNEE STANDING 4 VIEWS Routine 07/10/2015 8:52 AM CDT UROLOGY IMAGE EXAM Routine 04/04/2015 1:57 PM CYTOGENETICS TECHNOLOGIST US ABDOMEN COMPLETE Routine 04/04/2015 9:07 AM CYTOGENETICS TECHNOLOGIST BICARBONATE, B/S/P Routine 04/04/2015 7:53 AM CYTOGENETICS TECHNOLOGIST CREATININE WITH EGFR, S/P Routine 04/04/2015 7:53 AM CYTOGENETICS TECHNOLOGIST SODIUM, S/P Routine 04/04/2015 7:53 AM CYTOGENETICS TECHNOLOGIST CALCIUM, TOT, S/P Routine 04/04/2015 7:53 AM CYTOGENETICS TECHNOLOGIST POTASSIUM, S/P Routine 04/04/2015 7:53 AM CYTOGENETICS TECHNOLOGIST MAGNESIUM, S Routine 04/04/2015 7:53 AM CYTOGENETICS TECHNOLOGIST URIC ACID, S/P Routine 04/04/2015 7:53 AM CYTOGENETICS TECHNOLOGIST PHOSPHORUS (INORGANIC), S Routine 04/04/2015 7:53 AM CYTOGENETICS TECHNOLOGIST CREATININE WITH EGFR, S/P Routine 01/31/2015 10:15 AM CDT GLUCOSE POCT, B Routine 01/31/2015 7:11 AM CDT GLUCOSE POCT, B Routine 01/31/2015 2:34 AM CDT ELECTROLYTE (CHEM 4) PANEL, S/P Routine 01/31/2015 12:22 AM CDT CBC WITHOUT DIFFERENTIAL, B Routine 01/31/2015 12:22 AM CDT GLUCOSE POCT, B Routine 01/30/2015 11:51 PM CDT ELECTROLYTE (CHEM 4) PANEL, S/P Routine 01/30/2015 7:03 PM CDT GLUCOSE POCT, B Routine 01/30/2015 5:37 PM CDT GLUCOSE POCT, B Routine 01/30/2015 2:[address] ABDOMEN PELVIS KIDNEY STONE WITHOUT IV CONTRAST Routine 01/30/2015 10:31 AM CDT GLUCOSE POCT, B Routine 01/30/2015 7:01 AM CDT HEMOGLOBIN A1C, B Routine 01/30/2015 12:13 AM CDT ELECTROLYTE (CHEM 4) PANEL, S/P Routine 01/30/2015 12:13 AM CDT CBC WITHOUT DIFFERENTIAL, B Routine 01/30/2015 12:13 AM CDT GLUCOSE POCT, B Routine 01/29/2015 9:56 PM CDT GLUCOSE POCT, B Routine 01/29/2015 4:20 PM CDT GLUCOSE POCT, B Routine 01/29/2015 3:01 PM CDT GLUCOSE POCT, B Routine 01/29/2015 1:14 PM CDT KIDNEY STONE ANALYSIS Routine 01/29/2015 1:09 PM CDT HX MICROBIOLOGY REPORTS Routine 10/14/20 15 12:39 PM CDT UREAPLASMA PCR Routine 01/29/2015 12:39 PM CDT MYCOPLASMA HOMINIS PCR Routine 5 12:39 PM CDT UROLOGY IMAGE EXAM Routine 01/29/2015 12:20 PM CDT GLUCOSE POCT, B Routine 01/29/2015 11:09 AM CDT GLUCOSE POCT, B Routine 01/29/2015 9:03 AM CDT ANTIBODY SCREEN, B Routine 01/29/2015 8:46 AM CDT ABORH, RBC Routine 01/29/2015 8:46 AM CDT GLUCOSE POCT, B Routine 01/29/2015 8:33 AM CDT DX KNEE UNILATERAL 4+ VIEWS Routine 12/03/2014 10:[address] ABDOMEN PELVIS KIDNEY STONE WITHOUT IV CONTRAST Routine 11/25/2014 2:[address], U Routine 11/14/2014 12:34 PM CDT GRAM'S STAIN, CONFIRMATORY, U Routine 11/14/2014 12:[address] EXAMINATION NOT PERFORMED Routine 11/13/2014 11:27 AM CDT KETONES,QL(U) Routine 11/13/2014 10:14 AM CDT URINALYSIS WITH MICROSCOPIC Routine 11/13/2014 10:14 AM CDT MICROSCOPIC MANUAL Routine 11/13/2014 10:14 AM CDT HX MICROBIOLOGY REPORTS Routine 11/14/19 15 10:14 AM CDT CREATININE WITH EGFR, S/P Routine 11/13/2014 9:33 AM CDT BUN (BLOOD UREA NITROGEN), S/P Routine 11/13/2014 9:33 AM CDT CHLORIDE, S/P Routine 11/13/2014 9:33 AM CDT SODIUM, S/P Routine 11/13/2014 9:33 AM CDT BICARBONATE, B/S/P Routine 11/13/2014 9:33 AM CDT POTASSIUM, S/P Routine 11/13/2014 9:33 AM CDT HX MICROBIOLOGY REPORTS Routine 09/05/19 1:50 PM CDT INTERPRETATION OF OUTSIDE CT ABDOMEN AND OR PELVIS Routine 09/04/2014 1:36 PM CDT DX CHEST AP OR PA AND LATERAL 2 VIEWS Routine 09/04/2014 11:42 AM CDT CBC WITH DIFFERENTIAL, B Routine 09/04/2014 10:47 AM CDT SEDIMENTATION RATE, B Routine 09/04/2014 10:46 AM CDT BUN (BLOOD UREA NITROGEN), S/P Routine 09/04/2014 10:46 AM CDT ASPARTATE AMINOTRANSFERASE (AST), S/P Routine 09/04/2014 10:46 AM CDT CALCIUM, TOT, S/P Routine 09/04/2014 10:46 AM CDT POTASSIUM, S/P Routine 09/04/2014 10:46 AM CDT SODIUM, S/P Routine 09/04/2014 10:46 AM CDT BICARBONATE, B/S/P Routine 09/04/2014 10:46 AM CDT CREATININE WITH EGFR, S/P Routine 09/04/2014 10:46 AM CDT ALKALINE PHOSPHATASE, S/P Routine 09/04/2014 10:46 AM CDT CHLORIDE, S/P Routine 09/04/2014 10:46 AM CDT GLUCOSE, FASTING, S/P Routine 09/04/2014 10:46 AM CDT KETONES,QL(U) Routine 09/04/2014 10:38 AM CDT URINALYSIS WITH MICROSCOPIC Routine 09/04/2014 10:38 AM CDT MICROSCOPIC MANUAL Routine 09/04/2014 10:38 AM CDT PUL HOME OVERNIGHT OXIMETRY Routine 05/27/2014 10:29 PM CYTOGENETICS TECHNOLOGIST ALBUMIN, RANDOM, U Routine 05/27/2014 1:19 PM CYTOGENETICS TECHNOLOGIST CREATININE WITH EGFR, S/P Routine 05/27/2014 12:54 PM CYTOGENETICS TECHNOLOGIST GLUCOSE, RANDOM, S/P Routine 05/27/2014 12:54 PM CYTOGENETICS TECHNOLOGIST HEMOGLOBIN A1C, B Routine 05/27/2014 12:54 PM CYTOGENETICS TECHNOLOGIST OUTSIDE CT BODY Routine 05/06/2014 1:13 PM CYTOGENETICS TECHNOLOGIST PULMONARY FUNCTION TESTS Routine 03/30/2002 9:[address] HEAD WITH IV CONTRAST Routine 10/30/2001 2:09 PM CDT DX KIDNEYS URETERS BLADDER WITH TOMOGRAPHY Routine 10/30/2001 1:04 PM CDT DX CHEST AP OR PA AND LATERAL 2 VIEWS Routine 10/27/2001 2:26 PM CDT ECG Routine 10/27/2001 2:07 PM CDT HXGENERAL PATHOLOGY REPORT Routine 02/02/1994 10:28 AM CDT ECG Routine 09/29/1993 11:05 AM CDT Results * FL Lumbar Spine Transforaminal Epidural Injection Right (08/08/2023 2:08 PM CDT) Impressions [id number] - 08/08/2023 2:43 PM CDT Fluoroscopically-guided transforaminal epidural steroid injection. NR Narrative [id number] - 08/08/2023 2:43 PM CDT EXAM: FL [...] felt to best approximate that of an [id number]. Prior right L4 injection did not provide [...] IMG FLUO ROSCOPY PROCEDURES Performing Organization Address [facility] Co de Phone Number [id number] NA * [employer] (06/01/2023 12:00 AM CYTOGENETICS TECHNOLOGIST) Test Name [employer] Custom Panel 06/09/2023 10:53 AM CYTOGENETICS TECHNOLOGIST INVC Result SEE COMMENT 06/09/2023 11:10 AM CYTOGENETICS TECHNOLOGIST INVC Comment: For final report, select Lab-Send Out Lab Results hyperlink below. 06/01/2023 06/09/2023 10: 53 AM CYTOGENETICS TECHNOLOGIST Ean Huizar M.D. LAB [facility] ORDERABLE S Performing Organization Address [facility] Co de Phone Number [employer] [address] [place] [phone] [employer] [address] [place] [phone] * [id number] [employer] Custom Panel - Miscellaneous Test (06/01/2023 12:00 AM CYTOGENETICS TECHNOLOGIST) Test Name [employer] Custom Panel 06/09/2023 10:56 AM CYTOGENETICS TECHNOLOGIST HLS Saliva (Mouth) 06/01/2023 06/09/2023 10:53 AM CYTOGENETICS TECHNOLOGIST Ean Huizar M.D. LAB MISC ORDERABLE S [facility] [address] [place] [address], [facility][note 3] [address] [place] [address] * (ABNORMAL) Glucose, POCT (05/16/2023 9:35 AM CYTOGENETICS TECHNOLOGIST) Only the most recent of452 resultswithin the time period is included. Pathologist [facility] Glucose, POCT, B 151(H) 70 - 140 mg/dL 05/16/2023 10:04 AM CYTOGENETICS TECHNOLOGIST PCDE Site Capillary 05/16/2023 10:04 AM CYTOGENETICS TECHNOLOGIST PCDE Last Intake > 4 hours 05/16/2023 10:04 AM CYTOGENETICS TECHNOLOGIST PCDE Blood 05/16/2023 9:35 AM CYTOGENETICS TECHNOLOGIST 05/16/2023 10:05 AM CYTOGENETICS TECHNOLOGIST Unknown Provider LAB POCT ORDERABLES- MANUAL POC [facility] [address] [place] [address], [facility] PCDE [facility] POC [address] [place] [address] * (ABNORMAL) SARS CoV-2 RNA, PCR Asymptomatic (05/15/2023 9:10 AM CYTOGENETICS TECHNOLOGIST) Pathologist [facility] SARS CoV-2 RNA, PCR, Source Swab, Nasopharynx 05/15/2023 11:55 PM CYTOGENETICS TECHNOLOGIST SDS SARS CoV-2 RNA, PCR Detected(A) Undetected 05/15/2023 11:55 PM CYTOGENETICS TECHNOLOGIST SDS Comment: SARS-CoV-2 RNA present. ----ADDITIONAL INFORMATION---- This RT-PCR test has received Emergency Use Authorization (EUA) by the U.S. Food and Drug Administration and is used per procedures analyst's instructions. Performance characteristics were verified by [facility] in a manner consistent with CLIA requirements. Visit the CDC website: https://www.cdc.gov/coronavirus/ for the most recent guidelines on Coronavirus testing. Fact Sheet for Healthcare Providers: https://www.fda.gov/media/941530/download Fact Sheet for Patients: https://www.fda.gov/media/129159/download Swab (Nasopharynx) 05/15/2023 9:10 AM CYTOGENETICS TECHNOLOGIST 05/15/2023 12:03 PM CYTOGENETICS TECHNOLOGIST Bonny Swanson B.Ch., M.D. LAB M ICROBIOLOGY - GENERAL ORDERABLES Performing Organization Address [facility] Co de Phone Number [facility] [address] [place], [place] [phone] [place] [address] DR. ZAFAR [facility] [place] [address] * HIV-1/-2 Ag and Ab PS, Plasma (05/12/2023 5:44 PM CYTOGENETICS TECHNOLOGIST) [facility] HIV-1/-2 Ag and Ab PS, P Negative Negative 05/12/2023 8:32 PM CYTOGENETICS TECHNOLOGIST [facility] Comment: Negative result does not rule out HIV infection. If exposure to HIV infection occurred <14 days ago, contact the laboratory to request addition of HIV-1/HIV-2 RNA Detection Patient Source, Plasma (HEP12). Blood (Blood, Venous) 05/12/2023 5:44 PM CYTOGENETICS TECHNOLOGIST 05/12/2023 7:49 PM CYTOGENETICS TECHNOLOGIST Bonny Swanson B.Ch., Lyle LAB M ICROBIOLOGY - BLOOD ORDERABLES Performing Organization Address [facility]/ZIP Co de Phone Number [facility] [address] [place] [address] [facility] [address] [place] [address] * HCV RNA Pt Source, Serum (05/12/2023 5:44 PM CYTOGENETICS TECHNOLOGIST) HCV RNA Pt Source, S Undetected Undetected IU/mL 05/12/2023 11:11 PM CYTOGENETICS TECHNOLOGIST [facility] Comment: Result in log IU/mL is Undetected. ----ADDITIONAL INFORMATION---- The quantification range of this assay is 15 to 100,000,000 IU/mL (1.18 log to 8.00 log IU/mL). Testing was performed using the sagar HCV test ([employer] Blood (Blood, Venous) 05/12/2023 5:44 PM CYTOGENETICS TECHNOLOGIST 05/12/2023 7:53 PM CYTOGENETICS TECHNOLOGIST Bonny Swanson B.Ch., MMarleny LAB [facility] ORDERABLES [facility] [address] [place] [address] [facility] [address] [place] [address] [place] [address] * HIV-1/HIV-2 Ab Rapid Pt Source (05/12/2023 5:44 PM CYTOGENETICS TECHNOLOGIST) Pathologist [facility] HIV-1/HIV-2 Ab Rapid Pt Source, B Negative Negative 05/12/2023 6:19 PM CYTOGENETICS TECHNOLOGIST [facility] Blood (Blood, Venous) 05/12/2023 5:44 PM CYTOGENETICS TECHNOLOGIST 05/12/2023 5:49 PM CYTOGENETICS TECHNOLOGIST Bonny Swanson B.Ch., MMarleny LAB M [facility] BLOOD ORDERABLES [facility] [address] [place] [address], [facility] METH [facility] [address] [place] [address] * HBs Antigen Patient Source (05/12/2023 5:44 PM CYTOGENETICS TECHNOLOGIST) Pathologist [facility] HBs Antigen Patient Source, S Negative Negative 05/12/2023 9:55 PM CYTOGENETICS TECHNOLOGIST [facility] Blood (Blood, Venous) 05/12/2023 5:44 PM CYTOGENETICS TECHNOLOGIST 05/12/2023 7:49 PM CYTOGENETICS TECHNOLOGIST Bonny Swanson B.Ch., M.D. LAB ICROBIOLOGY - BLOOD ORDERABLES [facility] [address] [place] [address] [facility] [address] [place] [address] * [facility] Colorectal Cancer Panel, Next-Generation Sequencing, Tumor (05/12/2023 3:47 PM CYTOGENETICS TECHNOLOGIST) Result Provided diagnosis: colorectal adenocarcinoma Microsatellite Instability (MSI) status: Stable (RODO) The following CLINICALLY RELEVANT VARIANTS were detected: Gene: APC DNA Change: c.4348C>T (Exon 16) Amino Acid Change: p.R1450* (Oyt9809*) Variant Allele Frequency: 33% Gene: APC DNA Change: c.2319del (Exon 16) Amino Acid Change: p.N088Pzx*4 (Uuq999Wojmc*4) Variant Allele Frequency: 31.4% Gene: KRAS DNA Change: c.38G>A (Exon 2) Amino Acid Change: p.G13D (Zxy80Gpn) Variant Allele Frequency: 55.6% The following VARIANT OF UNCERTAIN SIGNIFICANCE was detected: Gene: MSH6 DNA Change: c.2374C>G (Exon 4) Amino Acid Change: p.L792V (Bbw508Qvf) Variant Allele Frequency: 16.4% No other reportable sequence variants were detected within the analyzed regions of the tested genes listed in the method description. 06/08/2023 1:38 PM CYTOGENETICS TECHNOLOGIST DTL Additional Information CLINICAL TRIALS Possible clinical trials of benefit for this patient can be found at the following sites: 1) ClinicalTrials.gov: www.clinicaltrials. gov/ct2/search/adva nced 2) [facility]: www.[facility]/resear ch/clinical-trials/ 3) [employer] Cancer [place]: www.cancer.gov/clin icaltrials/search REFERENCE TRANSCRIPTS Sequence variant nomenclature is based on the following RefSeq accession numbers (build GRCh37 (hg19)):APC [id number], KRAS [id number] and MSH6 [id number]. 06/08/2023 1:38 PM CYTOGENETICS TECHNOLOGIST DTL Specimen Tissue, Tumor 06/08/2023 1:38 PM CYTOGENETICS TECHNOLOGIST DTL Tissue ID [id number] 06/08/2023 1:38 PM CYTOGENETICS TECHNOLOGIST DTL Method Microscopic examination is performed by [...] and additional information on this test, see [email or web address] (Test ID [facility]). 06/08/2023 1:38 PM CYTOGENETICS TECHNOLOGIST DTL Disclaimer This test cannot differentiate between [...] of heterozygosity) and sequencing artifact/misalignme nt [PMID: [id number], PMID: 89701336]. This test cannot reliably determine if a [...] developed and its performance characteristics determined by [facility] in a manner consistent with CLIA requirements. This test has not been cleared or approved by the U.S. Food and Drug Administration. 06/08/2023 1:38 PM CYTOGENETICS TECHNOLOGIST DTL Released By Kiki SheppardBAjitS., Ph.D. 06/08/2023 1:38 PM CYTOGENETICS TECHNOLOGIST DTL Interpretation MSI: Stable (RODO) NO evidence of microsatellite instability was detected suggesting the presence of normal DNA mismatch repair function within the tumor. Current data suggest that advanced stage solid tumors with intact mismatch repair (RODO) are less likely to be responsive to treatment with immunotherapies such as anti-PD-1 therapies [PMID 63115087, PMID 69850891]. The presence of intact mismatch repair (RODO) is considered to be an unfavorable prognostic factor for patients with colorectal cancer [PMID: 46374336]. These results decrease the likelihood but do [...] APC c.4348C>T (p.R1450*) (Exon 16) and c.2319del (p.B532Mdi*4) (Exon 16) APC (adenomatous polyposis coli) is a tumor suppressor gene that encodes the protein Apc, which plays critical roles in regulating cell division and adhesion. Apc interacts with beta-catenin and controls signaling in the Wnt pathway, which helps regulate embryonic development and cell differentiation [PMID:06036257]. Inactivation of Apc results in the deregulation of Wnt signaling through beta-catenin [PMID:45335462]. In the absence of functional Apc, beta-catenin accumulates and is translocated to the nucleus, where it promotes the pony edger of genes promoting cellular proliferation [PMID:63029557]. APC mutations have been reported in 48-80% of colon samples [[employer], [employer]]. There are currently no known clinically approved therapies that specifically target APC mutations. 2) KRAS c.38G>A (p.G13D) (Exon 2) KRAS encodes a signaling protein member of the Burke family [PMID:49661117, PMID:52058268, PMID:05299832]. Activating KRAS alterations, mainly through mutations in exons 2, 3, and 4 (most commonly at codons G12, G13 and Q61), result in oncogenic activation of downstream signaling pathways, including the Jesus/MEK/ERK pathway [PMID:67518742, PMID:6706589]. KRAS mutations have been reported in 33-43% of colon samples [[employer], [employer] Gen[employer]]. Current data suggests that the efficacy of EGFR-targeted therapies in colorectal cancer is limited to patients with tumors lacking an activating KRAS mutation [PMID:69985060, PMID:51305784]. VARIANT OF UNCERTAIN SIGNIFICANCE One variant of uncertain significance was detected. The variant was not observed at significant frequency in population germline/cancer somatic variant databases nor predicted to be functionally significant based on variant type/in silico algorithm results. Additionally, there was no convincing published evidence of cancer association. Therefore, the clinical significance of the detected variant is unknown. 06/08/2023 1:38 PM CYTOGENETICS TECHNOLOGIST DTL 05/12/2023 3:47 PM CYTOGENETICS TECHNOLOGIST 06/01/2023 1:15 PM CYTOGENETICS TECHNOLOGIST Scooby Jacobs M.D. LAB GENETIC [facility] [address] [place] [address], [facility] D[facility] [address] [place] [address] * Surgical Pathology, Frozen Lab (05/12/2023 12:49 PM CYTOGENETICS TECHNOLOGIST) 05/18/2023 4:43 PM CYTOGENETICS TECHNOLOGIST METH Participated in the Interpretation Candi Cantu M.D.-Pathology Fellow 05/18/2023 4:43 PM CYTOGENETICS TECHNOLOGIST METH Report electronically signed by Carole RoaS., Ph.D. I verify that I have examined all relevant slides/materials for the specimen(s) and rendered or confirmed the diagnosis. 05/18/2023 4:43 PM CYTOGENETICS TECHNOLOGIST METH Frozen Intraoperative Report A. ??Terminal ileum, cecum, and appendix, right hemicolectomy: ??Invasive moderate-poorly differentiated adenocarcinoma, forming a 6.1 cm mass extending to the serosa. ??Resection margins negative for tumor. ??Closest mucosal margin 12.3 cm. ??Preliminarily, 5 tumor deposits and 2 of 9 lymph nodes positive for carcinoma. ??Pending further evaluation of additional lymph nodes on permanent sections.. Signed by Alirio Roa.B.S., Ph.D. 05/13/2023 10:17 AM 05/18/2023 4:43 PM CYTOGENETICS TECHNOLOGIST METH Gross Description A. ??Received fresh labeled [...] nodes are identified within the mesenteric fat. ??Panel Builder tissue is submitted for frozen and permanent sections. ??Grossed by Musa Kessler M.D., Ph.D.-Pathology Resident/Miracle German, KATHLEEN([facility]). ??Additional sections of adipose tissue are submitted on 05/16/2023 by Georgia Eldridge M.D. -Pathology Resident. 05/18/2023 4:43 PM CYTOGENETICS TECHNOLOGIST METH Block Summary A Appendix, terminal ileum, [...] A48 Adipose tissue- 10 05/18/2023 4:43 PM CYTOGENETICS TECHNOLOGIST METH Addendum Genetic testing for [facility] Colorectal Cancer Panel ([facility]) will be performed and resulted in the patient's medical record. Signed by Caroline Michaud M.D. 06/02/2023 1:30 PM A portion of the testing process was performed at [facility] site [id number]. 06/02/2023 1:30 PM CYTOGENETICS TECHNOLOGIST METH Comment:REVISED RESULTS Interpretation FINAL DIAGNOSIS A. [...] in 1 hotspot field: Not applicable Tumor Mena Score: Not applicable Treatment Effect: No known [...] of the testing process was performed at [facility] site [id number]. Digital imaging was used in the diagnostic assessment of this case. 06/02/2023 1:30 PM CYTOGENETICS TECHNOLOGIST METH Tissue (Colon) 05/12/2023 12 :49 PM CYTOGENETICS TECHNOLOGIST Bonny Swanson, BEstela, MMarleny LAB S URG PATH ORDERABLES [facility] [address] [place] [address], [facility] METH [address] [place] [address] * PA ARTL CATH/CNULA MONITOR PERC, LDA ANE ARTERIAL LINE INSERTION (05/12/2023 10:45 AM CYTOGENETICS TECHNOLOGIST) Narrative Shin Woods M.D. - 05/12/2023 10:45 AM CYTOGENETICS TECHNOLOGIST Marcus Tiwari R.N., CCRN ? 05/12/2023 10:58 [...] LDA ANE ENDOTRACHEAL AIRWAY (05/12/2023 10:31 AM CYTOGENETICS TECHNOLOGIST) Narrative Marcus Tiwari R.N., EVANGELISTAN - 05/12/2023 10:31 AM CYTOGENETICS TECHNOLOGIST Marcus Tiwari R.N., CCRN ? 05/12/2023 10:59 AM Airway Date/Time: 05/12/2023 10:31 AM Performed by: Marcus Tiwari R.N., CCRN Authorized by: Shin Woods M.D. ?? Patient location during procedure: OR / Procedure Area PROCEDURE DETAILS: Mask difficulty assessment: difficult mask (i.e.two-handed) without oral airway Final airway type: video laryngoscope Laryngeal Manipulation: no ?? Final best view of glottic structures - Cormack/Lehane Score: grade 1 ETT location: oral VL device: glide scope Parkman scope blade size: 4 Tube size: 7.5 [...] Shin Woods M.D. ANESTHESIA ORDERA BLES * Antibody Identification, Erythrocytes (05/11/2023 3:18 PM CYTOGENETICS TECHNOLOGIST) [facility] Antibody Identification No antibody detected 05/11/2023 6:14 PM CYTOGENETICS TECHNOLOGIST DTL 05/11/2023 3:18 PM CYTOGENETICS TECHNOLOGIST 05/11/2023 3:24 PM CYTOGENETICS TECHNOLOGIST Narrative [facility] - 05/11/2023 6:14 PM CYTOGENETICS TECHNOLOGIST Specimen Information: Specimen ID: [id number] Specimen Collection Start Date: 05/11/2023 ??3:18 PM Specimen Received Date: 05/11/2023 ??3:24 PM Specimen ID: [id number] Specimen Collection Start Date: 05/11/2023 ??3:18 PM Specimen Received Date: 05/11/2023 ??3:24 PM Tiffanie Lott APRNNBri., M.S.N. L AB BLOOD BANK TEST ORDERABLES [facility] [address] [place] [address], [facility] [address] [place] [address] * (ABNORMAL) CBC with Differential, Blood (05/11/2023 3:18 PM CYTOGENETICS TECHNOLOGIST) Only the most recent of31 resultswithin the time period is included. [facility] Hemoglobin 9.0(L) 13.2 - 16.6 g/dL 05/11/2023 3:35 PM CYTOGENETICS TECHNOLOGIST DTL Hematocrit 30.0(L) 38.3 - 48.6 % 05/11/2023 3:35 PM CYTOGENETICS TECHNOLOGIST DTL Erythrocytes 3.93(L) 4.35 - 5.65 x10(12)/L 05/11/2023 3:35 PM CYTOGENETICS TECHNOLOGIST DTL MCV 76.3(L) 78.2 - 97.9 fL 05/11/2023 3:35 PM CYTOGENETICS TECHNOLOGIST DTL RBC Distrib Width 19.7(H) 11.8 - 14.5 % 05/11/2023 3:35 PM CYTOGENETICS TECHNOLOGIST DTL Platelet Count 321(H) 135 - 317 x10(9)/L 05/11/2023 3:35 PM CYTOGENETICS TECHNOLOGIST DTL Leukocytes 9.5 3.4 - 9.6 x10(9)/L 05/11/2023 3:35 PM CYTOGENETICS TECHNOLOGIST DTL Neutrophils 6.39 1.56 - 6.45 x10(9)/L 05/11/2023 3:35 PM CYTOGENETICS TECHNOLOGIST DHPM Lymphocytes 1.98 0.95 - 3.07 x10(9)/L 05/11/2023 3:35 PM CYTOGENETICS TECHNOLOGIST DTL Monocytes 0.75 0.26 - 0.81 x10(9)/L 05/11/2023 3:35 PM CYTOGENETICS TECHNOLOGIST DTL Eosinophils 0.29 0.03 - 0.48 x10(9)/L 05/11/2023 3:35 PM CYTOGENETICS TECHNOLOGIST DTL Basophils 0.05 0.01 - 0.08 x10(9)/L 05/11/2023 3:35 PM CYTOGENETICS TECHNOLOGIST DTL Blood (Blood, Venous) 05/11/2023 3:18 PM CYTOGENETICS TECHNOLOGIST 05/11/2023 3:27 PM CYTOGENETICS TECHNOLOGIST Odilon Blair APRN, C.N.P., M.S.N. L AB BLOOD ADD-ON [facility] [address] [place] [address], [facility] DTL [facility][note 3] [address] [place] [address] DHPM [facility][note 3] [address] [place] [address] * Type and Screen (with Reflex Antibody ID) (05/11/2023 3:18 PM CYTOGENETICS TECHNOLOGIST) Only the most recent of4 resultswithin the time period is included. Pathologist [facility] ABORh A Pos Not applicable 05/11/2023 4:37 PM CYTOGENETICS TECHNOLOGIST ETRM Antibody Screen Positive Negative 05/11/2023 4:51 PM CYTOGENETICS TECHNOLOGIST ETRM Type & Screen Expiration 05/14/2023 23:59 05/11/2023 4:37 PM CYTOGENETICS TECHNOLOGIST ETRM Testing Location [facility] DEFAULT 05/11/2023 3:24 PM CYTOGENETICS TECHNOLOGIST ETRM Blood (Blood, Venous) 05/11/2023 3:18 PM CYTOGENETICS TECHNOLOGIST 05/11/2023 3:24 PM CYTOGENETICS TECHNOLOGIST Odilon Blair APRN, C.N.P., M.S.N. L AB BLOOD BANK TEST ORDERABLES [facility] [address] [place] [address], [facility] ETRM [facility][note 3] [address] [place] [address] * (ABNORMAL) Hemoglobin A1c (05/11/2023 3:18 PM CYTOGENETICS TECHNOLOGIST) Only the most recent of6 resultswithin the time period is included. Hemoglobin A1c, B 6.5(H) 4.0 - 5.6 % 05/11/2023 5:35 PM CYTOGENETICS TECHNOLOGIST DTL Comment: Hemoglobin A1c values greater than or equal to 6.5 percent are diagnostic for diabetes mellitus. ??Diagnosis should be confirmed by repeat testing. ??In diabetic patients, HbA1c goals should be discussed with healthcare provider. Blood (Blood, Venous) 05/11/2023 3:18 PM CYTOGENETICS TECHNOLOGIST 05/11/2023 3:27 PM CYTOGENETICS TECHNOLOGIST Delma Ramirez APRN, C.N.P., D.N.P. LAB BLOOD ADD-ON [facility] [address] [place] [address], [facility] DTL [facility][note 3] [address] [place] [address] * (ABNORMAL) Basic Metabolic Panel (05/11/2023 3:18 PM CYTOGENETICS TECHNOLOGIST) Only the most recent of31 resultswithin the time period is included. Potassium, S 4.5 3.6 - 5.2 mmol/L 05/11/2023 4:01 PM CYTOGENETICS TECHNOLOGIST DTL Sodium, S 139 135 - 145 mmol/L 05/11/2023 4:01 PM CYTOGENETICS TECHNOLOGIST DTL Chloride, S 100 98 - 107 mmol/L 05/11/2023 4:01 PM CYTOGENETICS TECHNOLOGIST DTL Bicarbonate, S 28 22 - 29 mmol/L 05/11/2023 4:01 PM CYTOGENETICS TECHNOLOGIST DTL Anion Gap 11 7 - 15 05/11/2023 4:01 PM CYTOGENETICS TECHNOLOGIST DTL BUN (Blood Urea Nitrogen), S 31(H) 8 - 24 mg/dL 05/11/2023 4:01 PM CYTOGENETICS TECHNOLOGIST DTL Creatinine 1.37(H) 0.74 - 1.35 mg/dL 05/11/2023 4:01 PM CYTOGENETICS TECHNOLOGIST DTL Estimated GFR (eGFR) 55(L) >=60 mL/min/BSA 05/11/2023 4:01 PM CYTOGENETICS TECHNOLOGIST DTL Comment: Estimated GFR calculated using the 2020 CKD_EPI creatinine equation. Calcium, Total, S 9.1 8.8 - 10.2 mg/dL 05/11/2023 4:01 PM CYTOGENETICS TECHNOLOGIST DTL Glucose, S 192(H) 70 - 140 mg/dL 05/11/2023 4:01 PM CYTOGENETICS TECHNOLOGIST DTL Blood (Blood, Venous) 05/11/2023 3:18 PM CYTOGENETICS TECHNOLOGIST 05/11/2023 3:45 PM CYTOGENETICS TECHNOLOGIST Odilon Blair APRN, C.N.P., M.S.N. L AB BLOOD ADD-ON [facility] [address] [place] [address], [facility] [address] [place] [address] * (ABNORMAL) Magnesium (04/27/2023 6:34 AM CYTOGENETICS TECHNOLOGIST) Only the most recent of7 resultswithin the time period is included. Magnesium, P 1.6(L) 1.7 - 2.3 mg/dL 04/27/2023 7:00 AM CYTOGENETICS TECHNOLOGIST [facility] Blood (Blood, Venous) 04/27/2023 6:34 AM CYTOGENETICS TECHNOLOGIST 04/27/2023 6:39 AM CYTOGENETICS TECHNOLOGIST Moises Ochoa M.D. LAB BLOOD ADD -ON [facility] [address] [place] [address], [facility] [place] [address] [place] [address] * (ABNORMAL) Urinalysis with Microscopic: Urine, Midstream (04/26/2023 2:10 PM CYTOGENETICS TECHNOLOGIST) Only the most recent of14 resultswithin the time period is included. Source Urine, Urine, Midstream 04/26/2023 2:16 PM CYTOGENETICS TECHNOLOGIST [facility] Clarity Clear Clear 04/26/2023 2:20 PM CYTOGENETICS TECHNOLOGIST [facility] Color Yellow 04/26/2023 2:20 PM CYTOGENETICS TECHNOLOGIST [facility] Comment: ----REFERENCE VALUE---- Colorless Yellow Francine Blood Negative Negative 04/26/2023 2:20 PM CYTOGENETICS TECHNOLOGIST [facility] Nitrite Negative Negative 04/26/2023 2:20 PM CYTOGENETICS TECHNOLOGIST [facility] Leukocyte Esterase Trace(A) Negative 04/26/2023 2:20 PM CYTOGENETICS TECHNOLOGIST [facility] Protein Negative mg/dL 04/26/2023 2:20 PM CYTOGENETICS TECHNOLOGIST [facility] Comment: ----REFERENCE VALUE---- Negative Trace Glucose 100(A) Negative mg/dL 04/26/2023 2:20 PM CYTOGENETICS TECHNOLOGIST [facility] Ketones, QI(U) Negative Negative mg/dL 04/26/2023 2:20 PM CYTOGENETICS TECHNOLOGIST [facility] Bilirubin Negative Negative 04/26/2023 2:20 PM CYTOGENETICS TECHNOLOGIST [facility] pH 5.5 5.0 - 8.0 04/26/2023 2:20 PM CYTOGENETICS TECHNOLOGIST [facility] Specific [place] 1.020 1.001 - 1.035 04/26/2023 2:20 PM CYTOGENETICS TECHNOLOGIST [facility] Urobilinogen 0.2 0.2 - 1.0 mg/dL 04/26/2023 2:20 PM CYTOGENETICS TECHNOLOGIST [facility] White Blood Cells Occ-3 /hpf 04/26/2023 2:48 PM CYTOGENETICS TECHNOLOGIST [facility] Comment: ----REFERENCE VALUE---- Males: 0-3 Females: 0-10 Unknown: 0-10 Red Blood Cells Occ-2 0 - 2 /hpf 2:48 PM CYTOGENETICS TECHNOLOGIST [facility] Dysmorphic Red Blood Cells <=25 <=25 % 04/26/2023 2:48 PM CYTOGENETICS TECHNOLOGIST [facility] Squamous Cells Occ-3 /hpf 04/26/2023 2:48 PM CYTOGENETICS TECHNOLOGIST [facility] Urine (Urine, Midstream) 04/26/2023 2:10 PM CYTOGENETICS TECHNOLOGIST 04/26/2023 2:16 PM CYTOGENETICS TECHNOLOGIST Moises Ochoa M.D. LAB URINE ORD ERABLES [facility] [address] [place] [address], [facility] in [address] [address] * (ABNORMAL) Comprehensive Metabolic Panel (04/24/2023 9:36 AM CYTOGENETICS TECHNOLOGIST) Only the most recent of5 resultswithin the time period is included. Potassium, P 4.1 3.6 - 5.2 mmol/L 04/24/2023 10:04 AM CYTOGENETICS TECHNOLOGIST [facility] Sodium, P 141 135 - 145 mmol/L 04/24/2023 10:04 AM CYTOGENETICS TECHNOLOGIST [facility] Chloride, P 105 98 - 107 mmol/L 04/24/2023 10:04 AM CYTOGENETICS TECHNOLOGIST [facility] Bicarbonate, P 24 22 - 29 mmol/L 04/24/2023 10:04 AM CYTOGENETICS TECHNOLOGIST [facility] Anion Gap, P 12 7 - 15 04/24/2023 10:04 AM CYTOGENETICS TECHNOLOGIST [facility] BUN (Blood Urea Nitrogen), P 30(H) 8 - 24 mg/dL 04/24/2023 10:04 AM CYTOGENETICS TECHNOLOGIST [facility] Creatinine 1.33 0.74 - 1.35 mg/dL 04/24/2023 10:04 AM CYTOGENETICS TECHNOLOGIST [facility] Estimated GFR (eGFR) 58(L) >=60 mL/min/BS A 04/24/2023 10:04 AM CYTOGENETICS TECHNOLOGIST [facility] Comment: Estimated GFR calculated using the 2020 CKD_EPI creatinine equation. Calcium, Total, P 8.7(L) 8.8 - 10.2 mg/dL 04/24/2023 10:04 AM CYTOGENETICS TECHNOLOGIST [facility] Glucose, P 263(H) 70 - 140 mg/dL 04/24/2023 10:04 AM CYTOGENETICS TECHNOLOGIST [facility] Protein, Total, P 5.6(L) 6.3 - 7.9 g/dL 04/24/2023 10:04 AM CYTOGENETICS TECHNOLOGIST [facility] Albumin, P 3.3(L) 3.5 - 5.0 g/dL 04/24/2023 10:04 AM CYTOGENETICS TECHNOLOGIST [facility] Aspartate Aminotransferase (AST), P 7(L) 8 - 48 U/L 04/24/2023 10:04 AM CYTOGENETICS TECHNOLOGIST [facility] Alkaline Phosphatase, P 84 40 - 129 U/L 04/24/2023 10:04 AM CYTOGENETICS TECHNOLOGIST [facility] Alanine Aminotransferase (ALT), P 11 7 - 55 U/L 04/24/2023 10:04 AM CYTOGENETICS TECHNOLOGIST [facility] Bilirubin, Total, P <0.2 0.0 - 1.2 mg/dL 04/24/2023 10:04 AM CYTOGENETICS TECHNOLOGIST [facility] Blood (Blood, Venous) 04/24/2023 9:36 AM CYTOGENETICS TECHNOLOGIST 04/24/2023 9:46 AM CYTOGENETICS TECHNOLOGIST Hilary Barnhart M.D. LAB BLOOD ADD-ON Performing Organization Address [facility] Co de Phone Number [address] [address], [facility] [place] [address] * Bacteria / Ronda Culture, Blood #2 (04/20/2023 12:50 PM CYTOGENETICS TECHNOLOGIST) Only the most recent of10 resultswithin the time period is included. [facility] Bacteria/Mariola da Culture, Blood No growth after 5 day/s of incubation. 04/25/2023 1:05 PM CYTOGENETICS TECHNOLOGIST [facility] Blood (Blood, Peripheral Draw) 04/20/2023 12:50 PM CYTOGENETICS TECHNOLOGIST 04/20/2023 12:55 PM CYTOGENETICS TECHNOLOGIST Comment:Specimen Source Site : Blood Leila Jo M.D. LAB MICROBIOLOGY - G ENERAL ORDERABLES Performing Organization Address [facility] Co de Phone Number [address] [address], [facility] in [address] [address] * Lactate (04/18/2023 4:33 PM CYTOGENETICS TECHNOLOGIST) Only the most recent of3 resultswithin the time period is included. [facility] Lactate, P 0.9 0.5 - 2.2 mmol/L 04/18/2023 7:09 PM CYTOGENETICS TECHNOLOGIST [facility] Blood (Blood, Venous) 04/18/2023 4:33 PM CYTOGENETICS TECHNOLOGIST 04/18/2023 7:09 PM CYTOGENETICS TECHNOLOGIST Leila Jo M.D. LAB BLOOD NON ADD-ON Performing Organization Address [facility]/ZIP Co de Phone Number [facility] [address] [place] [phone], [facility] in [address] [address] * SARS Coronavirus 2, PCR Rapid Symptomatic (04/18/2023 3:25 PM CYTOGENETICS TECHNOLOGIST) Only the most recent of2 resultswithin the time period is included. Pathologist [facility] SARS CoV-2, PCR, Rapid, V Undetected Undetected 04/18/2023 3:58 PM CYTOGENETICS TECHNOLOGIST [facility] Comment: ----ADDITIONAL INFORMATION---- This RT-PCR test was performed using the [employer] SARS-CoV-2 and Influenza A/B Reagent assay from [employer], which has received Emergency Use Authorization(EUA) by the U.S. Food and Drug Administration. Fact sheets for this Emergency Use Authorization (EUA) assay can be found at the following links: For Healthcare Providers: https://www.fda.gov/media/221834/download For Patients: https://www.fda.gov/media/316838/download SARS Coronavirus 2, Source, Rapid Swab, Nasopharynx 04/18/2023 3:38 PM CYTOGENETICS TECHNOLOGIST [facility] Swab (Nasopharynx) 04/18/2023 3:25 PM CYTOGENETICS TECHNOLOGIST 04/18/2023 3:38 PM CYTOGENETICS TECHNOLOGIST Leila Jo M.D. LAB MICROBIOLOGY - G ENERAL ORDERABLES Performing Organization Address [facility]/ZIP Co de Phone Number [facility] [address] [place] [address], [place] [facility] in [address] [address] * Influenza A/B and RSV, PCR, Point of Care (04/18/2023 3:25 PM CYTOGENETICS TECHNOLOGIST) Influenza A, POCT Negative Negative 04/18/2023 3:40 PM CYTOGENETICS TECHNOLOGIST [facility] Influenza B, POCT Negative Negative 04/18/2023 3:40 PM CYTOGENETICS TECHNOLOGIST [facility] Resp Syncytial Virus, POCT Negative Negative 04/18/2023 3:40 PM CYTOGENETICS TECHNOLOGIST [facility] Swab (Nasopharynx) 04/18/2023 3:25 PM CYTOGENETICS TECHNOLOGIST 04/18/2023 3:38 PM CYTOGENETICS TECHNOLOGIST Leila Jo M.D. LAB POCT ORDERABLES - DEVICE [facility] [address] [place] [address], [facility] in [place] [phone] * CT Abdomen Pelvis with IV Contrast (04/18/2023 2:12 PM CYTOGENETICS TECHNOLOGIST) Anatomical Region Laterality Modality Abdomen, Pelvis, Abdominal R ST LOS, Abdominal ARZ LOS, Abdominal FLA LOS N/A Computed Tomography 04/18/2023 2:08 PM CYTOGENETICS TECHNOLOGIST Impressions 04/18/2023 4:14 PM CYTOGENETICS TECHNOLOGIST 1. Limited/incomplete CT imaging of lateral right [...] kidneys and pancreas. Narrative 04/18/2023 4:14 PM CYTOGENETICS TECHNOLOGIST EXAM: CT ABDOMEN PELVIS WITH IV CONTRAST [...] the lateral right abdomen not included within [id number]. Within this limitation, no evidence of bowel [...] of the lateral rightabdomen not included within [id number]. Within this limitation, noevidence of bowel obstruction, [...] findings of the kidneys and pancreas. Leila Jo M.D. [facility] CT PROCEDURES * Lactate for Sepsis with Reflex (04/18/2023 12:29 PM CYTOGENETICS TECHNOLOGIST) Lactate, P 0.9 0.5 - 2.2 mmol/L 04/18/2023 4:21 PM CYTOGENETICS TECHNOLOGIST [facility] Blood (Blood, Venous) 04/18/2023 12:29 PM CYTOGENETICS TECHNOLOGIST 04/18/2023 12:37 PM CYTOGENETICS TECHNOLOGIST Leila Jo M.D. LAB BLOOD NON ADD-ON Performing Organization Address City/[facility]/ZIP Co de Phone Number [facility] [address] [place] [address], [facility] [place] [address] [place] [address] * (ABNORMAL) Susceptibility, Anaerobic, JEANCARLOS (04/18/2023 12:29 PM CYTOGENETICS TECHNOLOGIST) Susceptibility , Anaerobic, JEANCARLOS CLOSTRIDIUM SEPTICUM(A) 04/26/2023 2:09 PM CYTOGENETICS TECHNOLOGIST DTL Comment:Organism identified by client. Blood, Peripheral Draw 04/18/2023 12:29 PM CYTOGENETICS TECHNOLOGIST 04/21/2023 11:27 AM CYTOGENETICS TECHNOLOGIST Comment:Specimen Source Site : Blood Narrative [facility] - 04/26/2023 2:09 PM CYTOGENETICS TECHNOLOGIST CLOSEP Organism Antibiotic Method Susceptibility Clostridium septicum Clindamycin SUSCEPTIBIL ITY, JEANCARLOS (MCG/ML) <=2 mcg/mL: Susceptible Clostridium septicum Ertapenem SUSCEPTIBIL ITY, JEANCARLOS (MCG/ML) <=4 mcg/mL: Susceptible Clostridium septicum Metronidazole SUSCEPTIBIL ITY, JEANCARLOS (MCG/ML) 4 mcg/mL: Susceptible Clostridium septicum Penicillin SUSCEPTIBIL ITY, JEANCAROLS (MCG/ML) <=0.5 mcg/mL: Susceptible Clostridium septicum Piperacillin + Tazobactam SUSCEPTIBILITY, JEANCARLOS (MCG/ML) <=16/4 mcg/mL: Susceptible Leila Jo M.D. LAB MICROBIOLOGY - G ENERAL ORDERABLES Performing Organization Address [facility]/ZIP Co de Phone Number [facility] [address] [place] [address], [place] [facility] [place] [address] [facility] [place] [address] * ECG 12 Lead (04/15/2023 9:35 AM CYTOGENETICS TECHNOLOGIST) Only the most recent of8 resultswithin the time period is included. Ventricular Rate ECG/Min 66 BPM MUSE PA Interval 304 ms MUSE QRSD Interval 102 ms MUSE QT Interval 406 ms MUSE QTC Interval 425 ms MUSE P [place] 23 degrees MUSE R [place] 20 degrees MUSE T Wave [place] 75 degrees MUSE 04/15/2023 9:35 AM CYTOGENETICS TECHNOLOGIST 04/15/2023 10:24 AM CYTOGENETICS TECHNOLOGIST Impressions MUSE - 04/15/2023 10:24 AM CYTOGENETICS TECHNOLOGIST Sinus rhythm with 1st degree A-V block Otherwise normal ECG When compared with ECG of 17-FEB-2023 15:17, Premature ventricular complexes is no longer present Reviewed by SAIGE Hector Narrative Procedure Note Wilner Rosales M.D. - 04/15/2023 IMPRESSION: Sinus rhythm with 1st degree A-V block Otherwise normal ECG When compared with ECG of 17-FEB-2023 15:17, Premature ventricular complexes is no longer present Reviewed by SAIGE Hector Carter Steiner M.D. ECG ORDERABLES MUSE NA * (ABNORMAL) Morphology Evaluation (04/15/2023 5:56 AM CYTOGENETICS TECHNOLOGIST) Only the most recent of6 resultswithin the time period is included. RBC Morphology See Specific Findings 04/15/2023 6:31 AM CYTOGENETICS TECHNOLOGIST [facility] PLT Morphology Normal 04/15/2023 6:31 AM CYTOGENETICS TECHNOLOGIST [facility] PLT Estimate Adequate Adequate 04/15/2023 6:31 AM CYTOGENETICS TECHNOLOGIST [facility] Anisocytosis Slight(A) 04/15/2023 6:31 AM CYTOGENETICS TECHNOLOGIST [facility] Elliptocytes Slight(A) Not Seen 04/15/2023 6:31 AM CYTOGENETICS TECHNOLOGIST [facility] Blood 04/15/2023 5:56 AM CYTOGENETICS TECHNOLOGIST 04/15/2023 6:08 AM CYTOGENETICS TECHNOLOGIST Florencio Smith D.O. LAB BLOOD ADD-ON [facility] [address] [place] [address], [facility] in [address] [place] [address] * (ABNORMAL) Bacterial Culture, Aerobic + Susceptibility, Urine (04/12/2023 8:52 PM CYTOGENETICS TECHNOLOGIST) Only the most recent of9 resultswithin the time period is included. Urine Culture ESCHERICHIA COLI >100,000 cfu/mL (A) 04/15/2023 7:30 AM CYTOGENETICS TECHNOLOGIST [facility] Urine (Urine, Midstream) 04/12/2023 8:52 PM CYTOGENETICS TECHNOLOGIST 04/13/2023 2:02 PM CYTOGENETICS TECHNOLOGIST Comment:Specimen Source Site : Urine Narrative Organism Antibiotic Method Susceptibility Escherichia coli Ampicillin SUSCEPTIBILITY, JEANCARLOS (MCG/ML) <=2 mcg/mL: Susceptible Escherichia coli Ampicillin + Sulbactam SUSCEPTI BILITY, JEANCARLOS (MCG/ML) <=2 mcg/mL: Susceptible Escherichia coli Piperacillin + Tazobactam SUSCE PTIBILITY, JEANCARLOS (MCG/ML) <=4 mcg/mL: Susceptible Escherichia coli Cefazolin SUSCEPTIBILITY, JEANCARLOS (MCG/ML) <=4 mcg/mL: Susceptible Comment: The interpretation applies to uncomplicated urinary tract infections only. It also applies to these oral cephalosporins: cefuroxime, cephalexin, and cefprozil. Escherichia coli Ceftazidime SUSCEPTIBILITY, JEANCARLOS (MCG/ML) <=1 mcg/mL: Susceptible Escherichia coli Ceftriaxone SUSCEPTIBILITY, JEANCARLOS (MCG/ML) <=1 mcg/mL: Susceptible Escherichia coli Cefepime SUSCEPTIBILITY, JEANCARLOS (MCG/ML) <=1 mcg/mL: Susceptible Escherichia coli Aztreonam SUSCEPTIBILITY, JEANCARLOS (MCG/ML) <=1 mcg/mL: Susceptible Escherichia coli Ertapenem SUSCEPTIBILITY, JEANCARLOS (MCG/ML) <=0.5 mcg/mL: Susceptible Escherichia coli Meropenem SUSCEPTIBILITY, JEANCARLOS (MCG/ML) <=0.25 mcg/mL: Susceptible Escherichia coli Gentamicin SUSCEPTIBILITY, JEANCARLOS (MCG/ML) <=1 mcg/mL: Susceptible Escherichia coli Tobramycin SUSCEPTIBILITY, JEANCARLOS (MCG/ML) <=1 mcg/mL: Susceptible Escherichia coli Levofloxacin SUSCEPTIBILITY, JEANCARLOS (MCG/ML) <=0.12 mcg/mL: Susceptible Escherichia coli Nitrofurantoin SUSCEPTIBILITY, JEANCARLOS (MCG/ML) <=16 mcg/mL: Susceptible Escherichia coli Trimethoprim + Sulfamethoxazole SUSCEPTIBILITY, JEANCARLOS (MCG/ML) <=20 mcg/mL: Susceptible Moises Ochoa M.D. LAB MICROBIOL OGY - GENERAL ORDERABLES Performing Organization Address [facility]/ZIP Co de Phone Number [facility] [address] [place] [address], [facility] [place] [address] [place] [address] * (ABNORMAL) CBC without Differential (04/08/2023 5:52 AM CYTOGENETICS TECHNOLOGIST) Only the most recent of15 resultswithin the time period is included. Hemoglobin 8.7(L) 13.2 - 16.6 g/dL 04/08/2023 6:32 AM CYTOGENETICS TECHNOLOGIST [facility] Hematocrit 29.8(L) 38.3 - 48.6 % 04/08/2023 6:32 AM CYTOGENETICS TECHNOLOGIST [facility] Erythrocytes 3.81(L) 4.35 - 5.65 x10(12)/L 04/08/2023 6:32 AM CYTOGENETICS TECHNOLOGIST [facility] MCV 78.2 78.2 - 97.9 fL 04/08/2023 6:32 AM CYTOGENETICS TECHNOLOGIST [facility] RBC Distrib Width 24.5(H) 11.8 - 14.5 % 04/08/2023 6:32 AM CYTOGENETICS TECHNOLOGIST [facility] Platelet Count 245 135 - 317 x10(9)/L 04/08/2023 6:32 AM CYTOGENETICS TECHNOLOGIST [facility] Leukocytes 5.9 3.4 - 9.6 x10(9)/L 04/08/2023 6:32 AM CYTOGENETICS TECHNOLOGIST [facility] Blood (Blood, Venous) 04/08/2023 5:52 AM CYTOGENETICS TECHNOLOGIST 04/08/2023 6:18 AM CYTOGENETICS TECHNOLOGIST Carter Steiner M.D. LAB BLOOD ADD-ON [facility] [address] [place] [address], [facility] [place] [address] [place] [address] * (ABNORMAL) CRP (C-Reactive Protein) (04/07/2023 6:08 AM CYTOGENETICS TECHNOLOGIST) Only the most recent of2 resultswithin the time period is included. C-Reactive Protein (CRP), P 18.9(H) <5.0 mg/L 04/07/2023 8:42 AM CYTOGENETICS TECHNOLOGIST [facility] Blood (Blood, Venous) 04/07/2023 6:08 AM CYTOGENETICS TECHNOLOGIST 04/07/2023 8:04 AM CYTOGENETICS TECHNOLOGIST Carter Steiner M.D. LAB BLOOD ADD-ON Performing Organization Address [facility] Co de Phone Number [facility] [address] [place] [address], [facility] in [address] [address] * (ABNORMAL) Iron and Total Iron-Binding Capacity (03/28/2023 6:01 AM CYTOGENETICS TECHNOLOGIST) Only the most recent of2 resultswithin the time period is included. Iron 26(L) 50 - 150 mcg/dL 03/28/2023 2:44 PM CYTOGENETICS TECHNOLOGIST [facility] Total Iron Binding Capacity 251 250 - 400 mcg/dL 03/28/2023 2:44 PM CYTOGENETICS TECHNOLOGIST [facility] Percent Saturation 10(L) 14 - 50 % 03/28/2023 2:44 PM CYTOGENETICS TECHNOLOGIST [facility] Blood (Blood, Venous) 03/28/2023 6:01 AM CYTOGENETICS TECHNOLOGIST 03/28/2023 2:15 PM CYTOGENETICS TECHNOLOGIST Leila Jo M.D. LAB BLOOD ADD-ON Performing Organization Address [facility] Co de Phone Number [facility] [address] [place] [address], [facility] [place] [address] [place] [address] * (ABNORMAL) Hemoglobin (03/26/2023 6:19 AM CYTOGENETICS TECHNOLOGIST) Only the most recent of15 resultswithin the time period is included. Hemoglobin 8.1(L) 13.2 - 16.6 g/dL 03/26/2023 7:37 AM CYTOGENETICS TECHNOLOGIST [facility] Blood (Blood, Venous) 03/26/2023 6:19 AM CYTOGENETICS TECHNOLOGIST 03/26/2023 7:03 AM CYTOGENETICS TECHNOLOGIST Florencio Smith D.O. LAB BLOOD ADD-ON [facility] [address] [place] [phone], [facility] in [address] [address] * (ABNORMAL) BMP (Basic Metabolic Panel), POCT (03/24/2023 6:26 AM CYTOGENETICS TECHNOLOGIST) BUN (Blood Urea Nitrogen), POCT, B 30(H) 8 - 24 mg/dL 03/24/2023 6:26 AM CYTOGENETICS TECHNOLOGIST [facility] Chloride, POCT, B 101 98 - 107 mmol/L 03/24/2023 6:26 AM CYTOGENETICS TECHNOLOGIST [facility] Creatinine, POCT, B 1.5(H) 0.7 - 1.4 mg/dL 03/24/2023 6:26 AM CYTOGENETICS TECHNOLOGIST [facility] Comment: ----ADDITIONAL INFORMATION---- Performed at the Point of Care Estimated GFR (eGFR), POCT 50(L) >=60 mL/min/BSA 03/24/2023 6:28 AM CYTOGENETICS TECHNOLOGIST [facility] Comment: Estimated GFR calculated using the 2020 CKD_EPI creatinine equation. Glucose, POCT, B 142(H) 70 - 140 mg/dL 03/24/2023 6:26 AM CYTOGENETICS TECHNOLOGIST [facility] Calcium, Ionized, POCT, B 4.80 4.65 - 5.30 mg/dL 03/24/2023 6:26 AM CYTOGENETICS TECHNOLOGIST [facility] Potassium, POCT, B 3.9 3.6 - 5.2 mmol/L 03/24/2023 6:26 AM CYTOGENETICS TECHNOLOGIST [facility] Sodium, POCT, B 138 135 - 145 mmol/L 03/24/2023 6:26 AM CYTOGENETICS TECHNOLOGIST [facility] Total CO2, POCT, B 27 22 - 29 mmol/L 03/24/2023 6:26 AM CYTOGENETICS TECHNOLOGIST [facility] Anion Gap, POCT, B 10 7 - 15 03/24/2023 6:26 AM CYTOGENETICS TECHNOLOGIST [facility] Blood 03/24/2023 6:26 AM CYTOGENETICS TECHNOLOGIST 03/24/2023 6:28 AM CYTOGENETICS TECHNOLOGIST Generic Rals LAB POCT ORDERABLES - DEVICE Performing Organization Address [facility]/ZIP Co de Phone Number [facility] [address] [place] [address], [facility] [place] [address] [place] [address] * Transfuse Red Blood Cells : (03/21/2023 6:51 PM CYTOGENETICS TECHNOLOGIST) Only the most recent of2 resultswithin the time period is included. Leila Jo M.D. BLOOD TRANSFUSION OR DERABLES * Testing Location (03/21/2023 12:29 PM CYTOGENETICS TECHNOLOGIST) Testing Location [facility] DEFAULT 03/21/2023 12:48 PM CYTOGENETICS TECHNOLOGIST TO Blood 03/21/2023 12:2 9 PM CYTOGENETICS TECHNOLOGIST 03/21/2023 12:47 PM CYTOGENETICS TECHNOLOGIST Leila Jo M.D. LAB BLOOD BANK TEST ORDERABLES Performing Organization Address [facility]/ZIP Co de Phone Number [facility] [address] [place] [phone], [facility] in [place] [address] [place] [phone] * (ABNORMAL) Prealbumin (PAB) (03/21/2023 6:09 AM CYTOGENETICS TECHNOLOGIST) Prealbumin 15(L) 19 - 38 mg/dL 03/21/2023 2:34 PM CYTOGENETICS TECHNOLOGIST TO Blood (Blood, Venous) 03/21/2023 6:09 AM CYTOGENETICS TECHNOLOGIST 03/21/2023 2:08 PM CYTOGENETICS TECHNOLOGIST Leila Jo M.D. LAB BLOOD ADD-ON Performing Organization Address [facility]/ZIP Co de Phone Number [facility] [address] [place] [phone], [facility] in [address] [address] * (ABNORMAL) Albumin (03/21/2023 6:09 AM CYTOGENETICS TECHNOLOGIST) Only the most recent of2 resultswithin the time period is included. Albumin, P 3.2(L) 3.5 - 5.0 g/dL 03/21/2023 7:43 AM CYTOGENETICS TECHNOLOGIST [facility] Blood (Blood, Venous) 03/21/2023 6:09 AM CYTOGENETICS TECHNOLOGIST 03/21/2023 7:29 AM CYTOGENETICS TECHNOLOGIST Leila Jo M.D. LAB BLOOD ADD-ON Performing Organization Address [facility] Co de Phone Number [facility] [address] [place] [phone], [place] [facility] [place] [address] * Leg, right-Nursing Image Exam (03/14/2023 11:50 AM CYTOGENETICS TECHNOLOGIST) Only the most recent of2 resultswithin the time period is included. 03/14/2023 11:4 8 AM CYTOGENETICS TECHNOLOGIST Narrative [facility] - 03/14/2023 11:50 AM CYTOGENETICS TECHNOLOGIST This order has been created and auto-finalized to support the import of images acquired without order. The clinical documentation to support these images can be found on the encounter that produced images. Provider Not In System IMG NON RAD IMAGI NG PROCEDURES Performing Organization Address [facility] Co de Phone Number [facility] NA * Leg-Emergency Department Image Exam (03/08/2023 2:50 PM CYTOGENETICS TECHNOLOGIST) 03/08/2023 2:49 PM CYTOGENETICS TECHNOLOGIST Narrative [facility] - 03/08/2023 2:52 PM CYTOGENETICS TECHNOLOGIST This order has been created and auto-finalized to support the import of images acquired without order. The clinical documentation to support these images can be found on the encounter that produced images. Provider Not In System IMG NON RAD IMAGI NG PROCEDURES Performing Organization Address [facility] Co de Phone Number [facility] NA * Back-Family Medicine Image Exam (02/25/2023 11:08 AM CYTOGENETICS TECHNOLOGIST) Only the most recent of2 resultswithin the time period is included. 02/25/2023 11:0 6 AM CYTOGENETICS TECHNOLOGIST Narrative [facility] - 02/25/2023 11:08 AM CYTOGENETICS TECHNOLOGIST This order has been created and auto-finalized to support the import of images acquired without order. The clinical documentation to support these images can be found on the encounter that produced images. Provider Not In System IMG NON RAD IMAGI NG PROCEDURES [facility] NA * IR Lumbar Spine Facet Injection Right (02/25/2023 10:48 AM CYTOGENETICS TECHNOLOGIST) Only the most recent of2 resultswithin the time period is included. Anatomical Region Laterality Modality Lumbar Spine, Neuro Interven tional RST LOS, Neuroradiology ARZ LOS, Neuro Interventional FLA LOS Right X -Ray Angiography 02/25/2023 10:5 2 AM CYTOGENETICS TECHNOLOGIST Impressions 02/25/2023 11:18 AM CYTOGENETICS TECHNOLOGIST 1. Fluoroscopically-guided right L4-L5 transforaminal epidural steroid injection was performed. 2. Left sided injection was not performed due to significant patient discomfort with procedural positioning and difficulty repositioning the patient. NR Narrative 02/25/2023 11:18 AM CYTOGENETICS TECHNOLOGIST EXAM: IR LUMBAR SPINE FACET INJECTION RIGHT; right L4-L5 transforaminal epidural steroid injection. PROCEDURE: ??Fluoroscopically-guided Right L4 Transforaminal Epidural Steroid Injection Pain Score: Pre-procedural pain was rated: ??4/10 ?? Post-procedural pain was rated: ??3/10 ?? Medications: Steroid: 10 mg dexamethasone Local anesthetic: ??20 mg 2% lidocaine INDICATION: ??The patient reports the current pain syndrome to be of 0-3 months duration and presents today for a new injection. TECHNIQUE: Patient was interviewed and his pain pattern and history were reviewed. Please see history and physical note from 09/04/2022 for detailed clinical history. Patient has right worse than left lower extremity weakness and right lower back pain. Lumbar spine MRI 02/20/2023 demonstrated advanced L3-L4 and L4-L5 spinal canal narrowing and L2-L3 right subarticular zone disc extrusion. CT-guided bilateral L4-L5 epidural steroid injection was requested. Initially, CT-guided bilateral L4-L5 epidural steroid injection was attempted. However, the patient was unable to lay prone on the CT scanner due to shortness of breath and body habitus, and was unable to fit in the CT scanner in decubitus position due to body habitus. Therefore, examination was moved to fluoroscopy suite. With much difficulty, patient was in placed in left lateral decubitus position on the table and right transforaminal epidural steroid injection was performed. Due to difficulty in repositioning the patient and patient discomfort with procedure positioning, and given that patient's right sided symptoms are much worse than left, after discussion with the patient, left-sided injection was not performed at this time. ?? Using usual sterile technique, fluoroscopic guidance, and local anesthesia, a 7 inch 22-gauge spinal needle was advanced into the neural foramen using an infraneural approach. With final needle tip position, a small amount of iodinated contrast confirmed mostly central epidural flow without intrathecal uptake and with anteroposterior distribution which was mostly ventral. Transient vascular uptake was not observed with [...] residents, and fellows were discussed. Procedure Note Randy Banerjee M.D. - 02/25/2023 EXAM: IR LUMBAR SPINE FACET INJECTION RIGHT; right L4-L5 transforaminalepidural steroid injection. PROCEDURE: Fluoroscopically-guided Right L4 Transforaminal EpiduralSteroid Injection Pain Score: Pre-procedural pain was rated: 4/10 Post-procedural pain was rated: 3/10 Medications: Steroid: 10 mg dexamethasone Local anesthetic: 20 mg 2% lidocaine INDICATION: The patient reports the current pain syndrome to be of 0-3months duration and presents today for a new injection. TECHNIQUE: Patient was interviewed and his pain pattern and history werereviewed. Please see history and physical note from 09/04/2022 fordetailed clinical history. Patient has right worse than left lowerextremity weakness and right lower back pain. Lumbar spine MRI 02/20/2023 demonstrated advanced L3-L4 and L4-L5 spinalcanal narrowing and L2-L3 right subarticular zone disc extrusion.CT-guided bilateral L4-L5 epidural steroid injection was requested. Initially, CT-guided bilateral L4-L5 epidural steroid injection wasattempted. However, the patient was unable to lay prone on the CT scannerdue to shortness of breath and body habitus, and was unable to fit in theCT scanner in decubitus position due to body habitus. Therefore, examination was moved to fluoroscopy suite.With much difficulty, patient was in placed in left lateral decubitusposition on the table and right transforaminal epidural steroid injectionwas performed. Due to difficulty in repositioning the patient and patient discomfort with procedurepositioning, and given that patient's right sided symptoms are much worsethan left, after discussion with the patient, left-sided injection was notperformed at this time. Using usual sterile technique, fluoroscopic guidance, and localanesthesia, a 7 inch 22-gauge spinal needle was advanced into the neuralforamen using an infraneural approach. With final needle tip position, asmall amount of iodinated contrast confirmed mostly central epidural flow without intrathecal uptake and withanteroposterior distribution which was mostly ventral. Transient vascularuptake was not observed with final needle position. A test dose ofpreservative free lidocaine was administered. Following 2 minutes, there were no central neurologic changes.Dexamethasone was deposited in this location. The needle was cleared withlidocaine and removed. The patient experienced no complication. PREPROCEDURE: Patient seen and evaluated. Allergies, pertinentmedications, [...] team members, residents, and fellows werediscussed. IMPRESSION: 1. Fluoroscopically-guided right L4-L5 transforaminal epidural steroidinjection was performed. 2. Left sided injection was not performed due to significant patientdiscomfort with procedural positioning and difficulty repositioning thepatient. NR Arabella Johnson M.D. IMG IR PROCEDU RES * Electrolyte (Chem 4) Panel (02/24/2023 5:44 AM CYTOGENETICS TECHNOLOGIST) Only the most recent of4 resultswithin the time period is included. Potassium, P 4.0 3.6 - 5.2 mmol/L 02/24/2023 6:47 AM CYTOGENETICS TECHNOLOGIST DTL Sodium, P 139 135 - 145 mmol/L 02/24/2023 6:47 AM CYTOGENETICS TECHNOLOGIST DTL Chloride, P 105 98 - 107 mmol/L 02/24/2023 6:47 AM CYTOGENETICS TECHNOLOGIST DTL Bicarbonate, P 24 22 - 29 mmol/L 02/24/2023 6:47 AM CYTOGENETICS TECHNOLOGIST DTL Anion Gap, P 10 7 - 15 02/24/2023 6:47 AM CYTOGENETICS TECHNOLOGIST DTL Blood (Blood, Venous) 02/24/2023 5:44 AM CYTOGENETICS TECHNOLOGIST 02/24/2023 6:12 AM CYTOGENETICS TECHNOLOGIST Maisha Ny M.D. LAB BLOOD ADD-ON [facility] [address] [place] [address], [facility] DTL [facility][note 3] [address] [place] [address] * Vancomycin, Trough (02/23/2023 6:28 PM CYTOGENETICS TECHNOLOGIST) Vancomycin, Trough, S 19.8 10.0 - 20.0 mcg/mL 02/23/2023 8:21 PM CYTOGENETICS TECHNOLOGIST DTL Blood (Blood, Venous) 02/23/2023 6:28 PM CYTOGENETICS TECHNOLOGIST 02/23/2023 7:03 PM CYTOGENETICS TECHNOLOGIST Montserrat Gilbert M.D. LAB BLOOD NON ADD- ON [facility] [address] [place] [address], [place] DTL [facility] [address] [place] [address] * PET CT Skull to Thigh FDG (02/22/2023 12:21 PM CYTOGENETICS TECHNOLOGIST) Anatomical Region Laterality Modality Body, Nuclear Medicine PET R ST LOS, PET ARZ LOS, Nuclear Medicine PET FLA LOS, Nuclear Medicine N/A Positron Emission Tomography (PET), Positron Emission Tomography (PET) 02/22/2023 1:12 PM CYTOGENETICS TECHNOLOGIST Impressions 02/22/2023 1:32 PM CYTOGENETICS TECHNOLOGIST 1. Markedly FDG avid mass in the ascending colon, consistent with the primary colonic neoplasm. 2. No definite abnormal FDG uptake that could correspond with the known sigmoid neoplasm. 3. At least three right paracolic lymph nodes, worrisome for metastases. 4. No FDG avid distant metastatic disease. Narrative 02/22/2023 1:32 PM CYTOGENETICS TECHNOLOGIST EXAM: ??PET CT SKULL TO THIGH FDG Serum glucose at time of F-18 FDG injection was 121 mg/dL. Patient followed standard dietary/fasting requirements for this exam. RADIOPHARMACEUTICAL/MEDS: Route: intravenous fludeoxyglucose F 18 injection RESIDENTIAL (FDG F-18),8.02 millicurie TECHNIQUE: ??F-18 FDG PET/CT scan was performed from the vertex through the upper thighs with low dose, non-contrast, free-breathing CT images for attenuation correction and anatomic localization (AC/AL), with imaging beginning at approximately 60 minutes after radiotracer injection. ? COMPARISON: ??CT dated 02/21/2023, 02/01/2023, and other previous studies INDICATION: ??Colorectal cancer. Large ascending colon cancer and second malignancy including submucosal invasion within a semi-pedunculated polyp within the sigmoid colon. Initial treatment strategy. The patient reports having received a vaccination in a location other than an arm within the last two months. FINDINGS: ??Markedly FDG avid mass involving the ascending colon with an SUV max of 21.3 (image 266), consistent with the known colonic neoplasm. No definite abnormal FDG uptake in the sigmoid colon that could correspond with the known malignancy. Additional presumed physiologic uptake in the colon. At least three FDG avid right paracolic lymph nodes with an SUV max up to 6.0 (images 261, 268), worrisome for locoregional lymph node metastases. No FDG avid retroperitoneal lymph nodes. The previously mentioned mildly enlarged bilateral external iliac lymph nodes demonstrate blood pool level FDG uptake, likely reactive change. Mildly enlarged mediastinal lymph nodes also demonstrate low level FDG uptake, likely reactive changes. Mildly FDG avid left more than right axillary lymph nodes, likely reactive change. No FDG avid distant metastatic disease. Scattered degenerative musculoskeletal activity. Physiologic activity in the left ventricle. Subcutaneous mild activity in the left upper extremity, likely edema or inflammation. Incidental significant findings on low-dose, noncontrast CT: Atherosclerotic calcification including coronary artery calcification. Gynecomastia. Trace amount of pleural effusion. Small esophageal hiatal hernia. Diffuse hepatic steatosis. Cholelithiasis. Cortical scarring in the right kidney. Left renal cyst. Fatty infiltration of the pancreas. Pancreatic calcifications. Diminutive prostate gland. Excreted contrast in the gallbladder and urinary tracts. Musculoskeletal degenerative change. Procedure Note Varsha Hartman M.D., Ph.D. - 02/22/2023 EXAM: PET CT SKULL TO THIGH FDG Serum glucose at time of F-18 FDG injection was 121 mg/dL. Patientfollowed standard dietary/fasting requirements for this exam. RADIOPHARMACEUTICAL/MEDS: Route: intravenous fludeoxyglucose F 18 injection RESIDENTIAL (FDG F-18),8.02 millicurie TECHNIQUE: F-18 FDG PET/CT scan was performed from the vertex through theupper thighs with low dose, non-contrast, free-breathing CT images forattenuation correction and anatomic localization (AC/AL), with imagingbeginning at approximately 60 minutes after radiotracer injection. COMPARISON: CT dated 02/21/2023, 02/01/2023, and other previous studies INDICATION: Colorectal cancer. Large ascending colon cancer and secondmalignancy including submucosal invasion within a semi-pedunculated polypwithin the sigmoid colon. Initial treatment strategy. The patient reports having received a vaccination in a location other thanan arm within the last two months. FINDINGS: Markedly FDG avid mass involving the ascending colon with anSUV max of 21.3 (image 266), consistent with the known colonic neoplasm. No definite abnormal FDG uptake in the sigmoid colon that could correspondwith the known malignancy. Additional presumed physiologic uptake in thecolon. At least three FDG avid right paracolic lymph nodes with an SUV max up to6.0 (images 261, 268), worrisome for locoregional lymph node metastases. No FDG avid retroperitoneal lymph nodes. The previously mentioned mildlyenlarged bilateral external iliac lymph nodes demonstrate blood pool levelFDG uptake, likely reactive change. Mildly enlarged mediastinal lymphnodes also demonstrate low level FDG uptake, likely reactive changes. Mildly FDG avid left more than rightaxillary lymph nodes, likely reactive change. No FDG avid distant metastatic disease. Scattered degenerative musculoskeletal activity. Physiologic activity inthe left ventricle. Subcutaneous mild activity in the left upperextremity, likely edema or inflammation. Incidental significant findings on low-dose, noncontrast CT:Atherosclerotic calcification including coronary artery calcification.Gynecomastia. Trace amount of pleural effusion. Small esophageal hiatalhernia. Diffuse hepatic steatosis. Cholelithiasis. Cortical scarring in the right kidney. Left renal cyst. Fattyinfiltration of the pancreas. Pancreatic calcifications. Diminutiveprostate gland. Excreted contrast in the gallbladder and urinary tracts.Musculoskeletal degenerative change. IMPRESSION: 1. Markedly FDG avid mass in the ascending colon, consistent with theprimary colonic neoplasm. 2. No definite abnormal FDG uptake that could correspond with the knownsigmoid neoplasm. 3. At least three right paracolic lymph nodes, worrisome for metastases. 4. No FDG avid distant metastatic disease. Radha Saba M.D. [facility] [place] PROCEDURES * (ABNORMAL) SPSMA Result (02/21/2023 4:34 PM CYTOGENETICS TECHNOLOGIST) Only the most recent of2 resultswithin the time period is included. Neutrophilic Segs and Bands 65 50 - 75 % 02/21/2023 5:51 PM CYTOGENETICS TECHNOLOGIST [facility] Lymphocytes 21 18 - 42 % 02/21/2023 5:51 PM CYTOGENETICS TECHNOLOGIST [facility] Monocytes 6 2 - 11 % 02/21/2023 5:51 PM CYTOGENETICS TECHNOLOGIST [facility] Eosinophils 7(H) 1 - 3 % 02/21/2023 5:51 PM CYTOGENETICS TECHNOLOGIST [facility] Basophils 1 0 - 2 % 02/21/2023 5:51 PM CYTOGENETICS TECHNOLOGIST [facility] Manual Absolute Neutrophil Count 3.51 1.56 - 6.45 x10(9)/L 02/21/2023 5:51 PM CYTOGENETICS TECHNOLOGIST [facility] Comment: ----ADDITIONAL INFORMATION---- The manual absolute neutrophil count is derived from a manual differential count and therefore is not exactly comparable to the automated absolute neutrophil count. Interpretation See Comment 5:51 PM CYTOGENETICS TECHNOLOGIST [facility]PM Comment: No morphologic features of hemolysis are seen. Hypochromic microcytic red blood cells are present: consider iron deficiency anemia. Reviewed by: Dev 02/21/2023 5:51 PM CYTOGENETICS TECHNOLOGIST [facility]PM Blood 02/21/2023 4:34 PM CYTOGENETICS TECHNOLOGIST 02/21/2023 4:49 PM CYTOGENETICS TECHNOLOGIST Yaquelin Juares M.D. LAB BLOOD ADD-ON [facility] [address] [place] [address], [facility] [address] [place] [address] * MR Cervical Spine without IV Contrast (02/21/2023 3:05 PM CYTOGENETICS TECHNOLOGIST) Anatomical Region Laterality Modality Spine, Cervical Spine, Neuro radiology RST LOS, Neuroradiology [facility], Neuroradiology FLA LOS N/A Magneti c Resonance 02/21/2023 3:14 PM CYTOGENETICS TECHNOLOGIST Impressions 02/22/2023 8:23 AM CYTOGENETICS TECHNOLOGIST Noncontrasted MR imaging of the cervical spine demonstrates advanced multilevel degenerative spondylotic changes. No focal cervical vertebral body lesion detected. There is diffusely decreased T1 and T2 signal involving the cervical vertebral body marrow, possibly primarily on the basis of some degree of hemopoietic reconversion. Diffuse infiltrative process remains as a differential consideration. Levels demonstrating up to mild to moderate canal stenosis with indentation of the ventral cord. No high-grade cervical spinal canal stenosis. No cord signal abnormality detected. Moderate left neural foraminal stenosis at C3-4. No high-grade cervical neural foraminal stenosis. Narrative 02/22/2023 8:23 AM CYTOGENETICS TECHNOLOGIST EXAM: MR CERVICAL SPINE WITHOUT IV CONTRAST COMPARISON: Outside CT dated 12/31/2022 FINDINGS: Straightening of the normal cervical lordosis. No significant spondylolisthesis. Minor multilevel degenerative disc signal abnormality with otherwise preserved disc heights. Confluent bridging ventral osteophytosis C2- T1. No focal cervical vertebral body lesion or fracture. There is diffuse T1 and T2 hypointense signal involving the cervical vertebral body marrow, possibly primarily on the basis of some degree of hemopoietic reconversion. Diffuse infiltrative process remains as a differential consideration. No definite signal abnormality involving the cervical cord is detected. C2-3: No disc herniation. Uncovertebral spurring and facet degenerative changes. Mild to moderate left and mild right neural foraminal stenosis. Mild canal stenosis. C3-4: Disc bulge. Superimposed central disc protrusion. Mild to moderate canal stenosis with indentation of the ventral cord. Uncovertebral spurring and facet degenerative changes. Moderate left and mild to moderate right neural foraminal stenosis. C4-5: Disc bulge. Uncovertebral spurring and facet degenerative changes. Mild to moderate left greater than right neural foraminal stenosis. Mild to moderate canal stenosis. C5-6: Disc bulge with superimposed central disc protrusion. Indentation of the ventral cord. Mild to moderate canal stenosis. Mild to moderate bilateral neural foraminal stenosis. C6-7: Disc bulge. Uncovertebral spurring. Bilateral facet degenerative changes. Mild to moderate left and mild right neural foraminal stenosis. Mild canal stenosis. C7-T1: No disc herniation. Minor facet degenerative changes. No significant canal or neural foraminal stenosis. Vessels of the neck demonstrate appropriate flow voids. Thyroid and airway are obscured by saturation bands. Trace bilateral mastoid air cell fluid opacification. TECHNICAL NOTE: Patient could not complete the examination, therefore only noncontrasted MR imaging of the cervical spine was performed. Procedure Note Esteban Menendez M.D. - 02/22/2023 EXAM: MR CERVICAL SPINE WITHOUT IV CONTRAST COMPARISON: Outside CT dated 12/31/2022 FINDINGS: Straightening of the normal cervical lordosis. No significantspondylolisthesis. Minor multilevel degenerative disc signal abnormalitywith otherwise preserved disc heights. Confluent bridging ventralosteophytosis C2-T1. No focal cervical vertebral body lesion or fracture. There is diffuse T1 and T2 hypointensesignal involving the cervical vertebral body marrow, possibly primarily onthe basis of some degree of hemopoietic reconversion. Diffuse infiltrativeprocess remains as a differential consideration. No definite signal abnormality involving thecervical cord is detected. C2-3: No disc herniation. Uncovertebral spurring and facet degenerativechanges. Mild to moderate left and mild right neural foraminal stenosis.Mild canal stenosis. C3-4: Disc bulge. Superimposed central disc protrusion. Mild to moderatecanal stenosis with indentation of the ventral cord. Uncovertebralspurring and facet degenerative changes. Moderate left and mild tomoderate right neural foraminal stenosis. C4-5: Disc bulge. Uncovertebral spurring and facet degenerative changes.Mild to moderate left greater than right neural foraminal stenosis. Mildto moderate canal stenosis. C5-6: Disc bulge with superimposed central disc protrusion. Indentation ofthe ventral cord. Mild to moderate canal stenosis. Mild to moderatebilateral neural foraminal stenosis. C6-7: Disc bulge. Uncovertebral spurring. Bilateral facet degenerativechanges. Mild to moderate left and mild right neural foraminal stenosis.Mild canal stenosis. C7-T1: No disc herniation. Minor facet degenerative changes. Nosignificant canal or neural foraminal stenosis. Vessels of the neck demonstrate appropriate flow voids. Thyroid and airwayare obscured by saturation bands. Trace bilateral mastoid air cell fluidopacification. TECHNICAL NOTE: Patient could not complete the examination, therefore onlynoncontrasted MR imaging of the cervical spine was performed. IMPRESSION: Noncontrasted MR imaging of the cervical spine demonstrates advancedmultilevel degenerative spondylotic changes. No focal cervical vertebralbody lesion detected. There is diffusely decreased T1 and T2 signalinvolving the cervical vertebral body marrow, possibly primarily on the basis of some degree ofhemopoietic reconversion. Diffuse infiltrative process remains as adifferential consideration. Levels demonstrating up to mild to moderate canal stenosis withindentation of the ventral cord. No high-grade cervical spinal canalstenosis. No cord signal abnormality detected. Moderate left neural foraminal stenosis at C3-4. No high-grade cervicalneural foraminal stenosis. Yaquelin Juares M.D. Za MRI PROCEDUR ES * CT Abdomen Pelvis Angiogram with IV Contrast (02/21/2023 12:26 PM CYTOGENETICS TECHNOLOGIST) Anatomical Region Laterality Modality Abdomen, Pelvis, Cardiovascu lar RST LOS, Abdominal ARZ LOS, Vascular Interventional ARZ LOS, Abdominal FLA LOS, Vascular Interventional FLA LOS, Procedural N/A Computed Tomography, Compute d Tomography 02/21/2023 12:1 4 PM CYTOGENETICS TECHNOLOGIST Impressions 02/21/2023 1:37 PM CYTOGENETICS TECHNOLOGIST 1. No active gastrointestinal bleeding identified. 2. Primary colonic adenocarcinoma of the ascending colon with mild interval increase in mural thickness. 3. Interval passage of endoscopic clips from the sigmoid colon. 4. Decreased size of pelvic retroperitoneal lymphadenopathy 5. Remainder not significantly changed. Narrative 02/21/2023 1:37 PM CYTOGENETICS TECHNOLOGIST EXAM: ??CT ABDOMEN PELVIS ANGIOGRAM WITH IV CONTRAST Including 3D image post-processing. COMPARISON: ??CT abdomen and pelvis with IV contrast from an outside institution dated 02/01/2023 and reinterpreted at [facility] on 02/07/2023. FINDINGS: VASCULAR FINDINGS: No active gastrointestinal bleeding identified. Patent abdominal aorta with up to moderate partially calcified atherosclerotic plaque greatest in the infrarenal segment with up to mild luminal stenosis (series 7, circa image 300). Negative for abdominal aortic aneurysm, dissection, and penetrating atherosclerotic ulcer. Patent major abdominal aortic branches without significant luminal stenosis. Patent celiac artery with bifurcation into left gastric and splenic arteries. Patent superior mesenteric artery with normal variant origin of the common hepatic artery from the proximal segment. Patent inferior mesenteric artery. Patent single bilateral renal arteries. Patent bilateral iliofemoral arteries. Patent central portal, splenic, and superior and inferior mesenteric veins. Patent IVC and major systemic venous tributaries. ADDITIONAL FINDINGS: Mildly increased irregular circumferential noncalcified hyperdense soft tissue mural thickening of the mid ascending colon greatest laterally and adjacent fat stranding. Mural thickening now measures approximately 6 cm in length (series 15, image 121) and up to 20 mm radially (series 7, image 241), previously 16 mm ([id number] screen captures in series 1000). No pneumatosis, free intraperitoneal air, or bowel obstruction. Negative appendix. Previously seen endoscopic metallic * * in the sigmoid colon (prior series 3, image 135) are no longer visualized. Previously seen associated focal mural thickening of the sigmoid colon about the endoscopic clips is not identified today. Unchanged small fat-containing umbilical hernia. Decreased size of left greater than right iliac chain pelvic retroperitoneal lymphadenopathy now measuring up to 18 mm short axis in the distal right external iliac chain (series 7, image 462), previously 24 mm ([id number] screen captures in series 1000). Similar mildly increased number of noncalcified subcentimeter short axis mesenteric lymph nodes adjacent to the ascending colon (series 7, image 286) as well as in the portal caval chain (series 7, image 160). Cholelithiasis without acute cholecystitis. Negative liver and spleen. Diffuse and up to severe distally predominant pancreatic atrophy. Similar multiple subcentimeter coarse calcifications of the pancreatic head compatible with sequela of remote pancreatitis. Negative adrenal glands. Similar moderate right and mild left remote renal cortical scarring. Similar scattered simple appearing left renal cortical cysts. No hydronephrosis or hydroureter. Simple fluid distention of the bladder lumen. Nonenlarged prostate gland with mild central calcification. Similar trace bilateral pleural effusions. Unchanged sub-3 mm noncalcified solid pulmonary micronodule in the peripheral inferior lingula (series 4, image 43). Similar partially visualized dependent predominant body wall edema. New small volume emphysema and trace hyperdensity in the subcutaneous fat of the left superior pelvic wall. Unchanged subcentimeter intramedullary osseous sclerotic focus in the superior left iliac bone without pathologic fracture (series 4, image 396). Hypertrophic degenerative changes of the skeleton greatest in the thoracolumbar spine. Yaquelin GROSS CT PROCEDURE S * CT Lumbar Spine with IV Contrast (02/21/2023 12:26 PM CYTOGENETICS TECHNOLOGIST) Anatomical Region Laterality Modality Lumbar Spine, Neuroradiology RST LOS, Neuroradiology ARZ LOS, Neuroradiology FLA [facility] N/A Computed Tomography, Compute d Tomography 02/21/2023 12:2 9 PM CYTOGENETICS TECHNOLOGIST Impressions 02/21/2023 12:37 PM CYTOGENETICS TECHNOLOGIST 1. Multilevel lumbar spondylotic changes as described, seen in greater detail on MRI of 02/20/2023. Multilevel spinal canal narrowing is most prominent at L3-4 and L4-5 where it is advanced. 2. Multilevel neural foraminal narrowing, most prominent at L5-S1 where it is advanced bilaterally. Narrative 02/21/2023 12:37 PM CYTOGENETICS TECHNOLOGIST EXAM: CT LUMBAR SPINE WITH IV CONTRAST COMPARISON: MRI lumbar spine without IV gadolinium dated 02/20/2023. FINDINGS: For counting purposes there are 5 lumbar type vertebral bodies. Postoperative changes of remote right L5 hemilaminectomy with interval bony bridging of a prior laminectomy defect. Multilevel lumbar degenerative disc disease, most prominent at L2-3 where there is disc space height loss as well as vacuum disc phenomenon. Flattening and sclerosis of the L2-L5 spinous processes which may be seen in the clinical setting of Baastrup's disease. Combination of disc bulges, facet arthropathy, and ligamentum flavum thickening results in variable degrees of spinal canal narrowing. Superimposed upon these degenerative changes is a right lateral recess disc extrusion at L2-3 which is seen in greater detail on comparison MRI. Overall, spinal canal narrowing is mild at L1-2, moderate, potentially moderate to advanced at L2-3, advanced at L3-4, advanced L4-5, and mild at L5-S1. Multilevel neural foraminal narrowing which is mild to moderate bilaterally at L2-3, moderate bilaterally at L3-4, moderate to advanced on the right and moderate on the left at L4-5, as well as advanced bilaterally at L5-S1. 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 Procedure Note Keith Garza M.D. - 02/21/2023 EXAM: CT LUMBAR SPINE WITH IV CONTRAST COMPARISON: MRI lumbar spine without IV gadolinium dated 02/20/2023. FINDINGS: For counting purposes there are 5 lumbar type vertebralbodies. Postoperative changes of remote right L5 hemilaminectomy with intervalbony bridging of a prior laminectomy defect. Multilevel lumbardegenerative disc disease, most prominent at L2-3 where there is discspace height loss as well as vacuum disc phenomenon. Flattening and sclerosis of the L2-L5 spinous processes whichmay be seen in the clinical setting of Baastrup's disease. Combination of disc bulges, facet arthropathy, and ligamentum flavumthickening results in variable degrees of spinal canal narrowing.Superimposed upon these degenerative changes is a right lateral recessdisc extrusion at L2-3 which is seen in greater detail on comparison MRI. Overall, spinal canal narrowing is mild at L1- 2,moderate, potentially moderate to advanced at L2-3, advanced at L3-4,advanced L4-5, and mild at L5-S1. Multilevel neural foraminal narrowing which is mild to moderatebilaterally at L2-3, moderate bilaterally at L3-4, moderate to advanced onthe right and moderate on the left at L4-5, as well as advancedbilaterally at L5-S1. 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 IMPRESSION: 1. Multilevel lumbar spondylotic changes as described, seen in greaterdetail on MRI of 02/20/2023. Multilevel spinal canal narrowing is mostprominent at L3-4 and L4-5 where it is advanced. 2. Multilevel neural foraminal narrowing, most prominent at L5-S1 where itis advanced bilaterally. Yaquelin Juares M.D. IMG CT PROCEDURE S * (ABNORMAL) LD (Lactate Dehydrogenase) (02/21/2023 9:27 AM CYTOGENETICS TECHNOLOGIST) [facility] LD 251(H) 122 - 222 U/L 02/21/2023 11:37 AM CYTOGENETICS TECHNOLOGIST DTL Blood (Blood, Venous) 02/21/2023 9:27 AM CYTOGENETICS TECHNOLOGIST 02/21/2023 9:56 AM CYTOGENETICS TECHNOLOGIST Yaquelin Juares M.D. LAB BLOOD NON AD D-ON [facility] [address] [place] [address], [place] DTL [facility][note 3] [address] [place] [address] * (ABNORMAL) Haptoglobin (02/21/2023 9:27 AM CYTOGENETICS TECHNOLOGIST) Haptoglobin, S 324(H) 30 - 200 mg/dL 02/22/2023 9:18 AM CYTOGENETICS TECHNOLOGIST [facility] Blood (Blood, Venous) 02/21/2023 9:27 AM CYTOGENETICS TECHNOLOGIST 02/21/2023 1:16 PM CYTOGENETICS TECHNOLOGIST Yaquelin Juares M.D. LAB BLOOD ADD-ON [facility] [address] [place] [address] [facility] [address] [place] [address] * Bilirubin, Direct (02/21/2023 9:27 AM CYTOGENETICS TECHNOLOGIST) Only the most recent of2 resultswithin the time period is included. Bilirubin, Direct, S <0.2 0.0 - 0.3 mg/dL 02/21/2023 10:34 AM CYTOGENETICS TECHNOLOGIST [facility] Blood (Blood, Venous) 02/21/2023 9:27 AM CYTOGENETICS TECHNOLOGIST 02/21/2023 9:43 AM CYTOGENETICS TECHNOLOGIST Yaquelin Juares M.D. LAB BLOOD ADD-ON Performing Organization Address City/[facility]/ZIP Co de Phone Number [facility] [address] [place] [address], [facility] DTL [facility][note 3] [address] [place] [address] * Bilirubin, Total (02/21/2023 9:27 AM CYTOGENETICS TECHNOLOGIST) Bilirubin, Total, P 0.4 0.0 - 1.2 mg/dL 02/21/2023 9:53 AM CYTOGENETICS TECHNOLOGIST [facility] Blood (Blood, Venous) 02/21/2023 9:27 AM CYTOGENETICS TECHNOLOGIST 02/21/2023 9:39 AM CYTOGENETICS TECHNOLOGIST Yaquelin Juares M.D. LAB BLOOD ADD-ON [facility] [address] [place] [address], [facility] STMA [facility][note 3] [address] [place] [address] * DX Lumbar Spine 2-3 Views (02/20/2023 6:25 PM CYTOGENETICS TECHNOLOGIST) Anatomical Region Laterality Modality Lumbar Spine, Musculoskeleta l RST LOS, Neuroradiology ARZ LOS, Muskuloskeletal FLA LOS N/A Digital Radiography 02/20/2023 6:27 PM CYTOGENETICS TECHNOLOGIST Impressions 02/20/2023 6:34 PM CYTOGENETICS TECHNOLOGIST Evaluation of the lateral views is significantly limited by patient positioning and consequent overlap of osseous structures. Within these limitations, no obvious acute fractures or traumatic malalignment is identified. There is moderate lumbar spondylosis characterized by facet arthropathy and hypertrophic degenerative changes of the endplates. Leftward convex lumbar curvature. Narrative 02/20/2023 6:34 PM CYTOGENETICS TECHNOLOGIST EXAM: ??DX LUMBAR SPINE 2-3 VIEWS Procedure Note Kandace Hogan M.D. - 02/20/2023 EXAM: DX LUMBAR SPINE 2-3 VIEWS IMPRESSION: Evaluation of the lateral views is significantly limited by patientpositioning and consequent overlap of osseous structures. Within theselimitations, no obvious acute fractures or traumatic malalignment isidentified. There is moderate lumbar spondylosis characterized by facet arthropathy and hypertrophicdegenerative changes of the endplates. Leftward convex lumbar curvature. Yaquelin GROSS DIAGNOSTIC I MAGING PROCEDURES * Influenza A, B, RSV, PCR, Rapid (02/20/2023 4:11 PM CYTOGENETICS TECHNOLOGIST) Influenza A, PCR, Rapid, V Negative Negative 02/20/2023 4:47 PM CYTOGENETICS TECHNOLOGIST [facility] Influenza B, PCR, Rapid, V Negative Negative 02/20/2023 4:47 PM CYTOGENETICS TECHNOLOGIST [facility] Resp Synctial Virus, PCR, Rapid Negative Negative 02/20/2023 4:47 PM CYTOGENETICS TECHNOLOGIST [facility] Specimen Source Swab, Nasopharynx 02/20/2023 4:47 PM CYTOGENETICS TECHNOLOGIST [facility] Swab (Nasopharynx) 02/20/2023 4:11 PM CYTOGENETICS TECHNOLOGIST 02/20/2023 4:15 PM CYTOGENETICS TECHNOLOGIST Montserrat Gilbert M.D. LAB MICROBIOLOGY - GENERAL ORDERABLES [facility] [address] [place] [address], [facility] [address] [place] [address] * MR Lumbar Spine without IV Contrast (02/20/2023 10:42 AM CYTOGENETICS TECHNOLOGIST) Only the most recent of2 resultswithin the time period is included. Anatomical Region Laterality Modality Lumbar Spine, Neuroradiology RST LOS, Neuroradiology ARZ LOS, Neuroradiology FLA LOS N/A Magnetic Resonance 02/20/2023 11:0 7 AM CYTOGENETICS TECHNOLOGIST Impressions 02/20/2023 12:12 PM CYTOGENETICS TECHNOLOGIST 1. Again demonstrated is a large right subarticular zone disc extrusion at L2-L3 level with inferior migration, with advanced spinal canal narrowing and impingement on the right L3 nerve root. 2. Advanced spinal canal narrowing at L3-L4 and L4-L5 with crowding/compression of the cauda equina nerve roots, similar to prior. 3. Multilevel neural foraminal narrowing as described, with advanced narrowing on the right at L4-L5 and bilaterally at L5-S1. Narrative 02/20/2023 12:12 PM CYTOGENETICS TECHNOLOGIST EXAM: MR LUMBAR SPINE WITHOUT IV CONTRAST COMPARISON: MR lumbar spine 11/29/2022 FINDINGS: Patient motion contributes to significant image degradation. Cross correlation/triangulation between sequences should be performed with care due to patient shifting in between sequence acquisitions. Counting inferiorly from C2, there are 5 lumbar vertebral bodies (as annotated on exam images). Redemonstration of diffuse heterogeneity of the visualized marrow. 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 L2-3: Posterior disc bulge, spondylotic ridging and right lateral recess disc extrusion measuring 2.5 cm in the craniocaudal dimension, ligamentum flavum hypertrophy and facet arthropathy contributing to complete effacement of the right subarticular recess with impingement of the right L3 nerve root, severe spinal canal narrowing, and crowding/redundancy of the cauda equina nerve roots. Findings are overall similar to prior MR 11/29/2022. L3-4: Posterior disc bulge, spondylotic ridging, ligamentum flavum hypertrophy contribute to advanced spinal canal stenosis. Disc bulge along with facet arthropathy contributing to mild to moderate bilateral neural foraminal narrowing. Findings also seen on prior. L4-5: Posterior disc bulge, spondylotic ridging, ligamentum flavum hypertrophy contribute to advanced spinal canal stenosis with crowding of the cauda equina nerve roots, also demonstrated on prior MRI. Similar advanced right and moderate left neural foraminal narrowing. L5-S1: No significant canal stenosis. Posterior disc bulge, spondylotic ridging and facet arthropathy contribute to advanced bilateral neural foraminal narrowing also seen on prior. Right hemilaminectomy. Diffuse paraspinal musculature fatty atrophy. Edema within the dorsal soft tissues overlying the lumbar spine. Ligamentum flavum hypertrophy at T11-T12 level penetrating to at least mild/moderate canal narrowing. Procedure Note Julian Sosa M.D. - 02/20/2023 EXAM: MR LUMBAR SPINE WITHOUT IV CONTRAST COMPARISON: MR lumbar spine 11/29/2022 FINDINGS: Patient motion contributes to significant image degradation.Cross correlation/triangulation between sequences should be performed withcare due to patient shifting in between sequence acquisitions. Counting inferiorly from C2, there are 5 lumbar vertebral bodies (asannotated on exam images). Redemonstration of diffuse heterogeneity of thevisualized marrow. 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 Severe multilevel advanced lumbar spondylosis superimposed on acongenitally narrow canal, including posterior disc bulge/spondyloticridging, facet arthropathy and ligamentum flavum hypertrophy as describedbelow by level: L1-2: No significant spinal canal stenosis or neuroforaminal narrowing. L2-3: Posterior disc bulge, spondylotic ridging and right lateral recessdisc extrusion measuring 2.5 cm in the craniocaudal dimension, ligamentumflavum hypertrophy and facet arthropathy contributing to completeeffacement of the right subarticular recess with impingement of the right L3 nerve root, severe spinal canalnarrowing, and crowding/redundancy of the cauda equina nerve roots.Findings are overall similar to prior MR 11/29/2022. L3-4: Posterior disc bulge, spondylotic ridging, ligamentum flavumhypertrophy contribute to advanced spinal canal stenosis. Disc bulge alongwith facet arthropathy contributing to mild to moderate bilateral neuralforaminal narrowing. Findings also seen on prior. L4-5: Posterior disc bulge, spondylotic ridging, ligamentum flavumhypertrophy contribute to advanced spinal canal stenosis with crowding ofthe cauda equina nerve roots, also demonstrated on prior MRI. Similaradvanced right and moderate left neural foraminal narrowing. L5-S1: No significant canal stenosis. Posterior disc bulge, spondyloticridging and facet arthropathy contribute to advanced bilateral neuralforaminal narrowing also seen on prior. Right hemilaminectomy. Diffuse paraspinal musculature fatty atrophy. Edema within the dorsal softtissues overlying the lumbar spine. Ligamentum flavum hypertrophy [id number] level penetrating to at least mild/moderate canal narrowing. IMPRESSION: 1. Again demonstrated is a large right subarticular zone disc extrusion atL2-L3 level with inferior migration, with advanced spinal canal narrowingand impingement on the right L3 nerve root. 2. Advanced spinal canal narrowing at L3-L4 and L4-L5 withcrowding/compression of the cauda equina nerve roots, similar to prior. 3. Multilevel neural foraminal narrowing as described, with advancednarrowing on the right at L4-L5 and bilaterally at L5-S1. Dada Simms M.D. IMG MRI PROCEDURES * [facility] Internal Medicine Image Exam (02/20/2023 6:38 AM [facility]) 02/20/2023 7:36 AM [facility] Narrative IIMS - 02/20/2023 6:38 AM [facility] This order has been created and auto-finalized to support the import of images acquired without order. The clinical documentation to support these images can be found on the encounter that produced images. Provider Not In System IMG NON RAD IMAGI NG PROCEDURES IIMS NA * Dipstick, Urine (02/20/2023 6:05 AM CYTOGENETICS TECHNOLOGIST) Only the most recent of5 resultswithin the time period is included. Hemoglobin, QL, U Negative Negative 02/20/2023 7:37 AM CYTOGENETICS TECHNOLOGIST DTL Leukocyte Esterase, U Negative Negative 02/20/2023 7:37 AM CYTOGENETICS TECHNOLOGIST DTL Nitrite, U Negative Negative 02/20/2023 7:37 AM CYTOGENETICS TECHNOLOGIST DTL Ketone, U Negative Negative mg/dL 02/20/2023 7:37 AM CYTOGENETICS TECHNOLOGIST DTL Glucose, U Negative Negative mg/dL 02/20/2023 7:37 AM CYTOGENETICS TECHNOLOGIST DTL Urine 02/20/2023 6:05 AM CYTOGENETICS TECHNOLOGIST 02/20/2023 6:39 AM CYTOGENETICS TECHNOLOGIST Peter Alva M.D., M.S. LAB URINE ORD ERABLES Performing Organization Address City/[facility] Co de Phone Number [facility] [address] [place] [address], [facility] [address] [address] * (ABNORMAL) Microscopic Manual (02/20/2023 6:05 AM CYTOGENETICS TECHNOLOGIST) Only the most recent of6 resultswithin the time period is included. Microscopy Abnormal 02/20/2023 7:55 AM CYTOGENETICS TECHNOLOGIST DTL RBC <3 <3 /hpf 02/20/2023 7:55 AM CYTOGENETICS TECHNOLOGIST DTL Casts, Hyaline Occas /lpf 02/20/2023 7:55 AM CYTOGENETICS TECHNOLOGIST DTL Casts, Granular Occas(A) /lpf 7:55 AM CYTOGENETICS TECHNOLOGIST DTL Urine 02/20/2023 6:05 AM CYTOGENETICS TECHNOLOGIST 02/20/2023 7:37 AM CYTOGENETICS TECHNOLOGIST Peter Alva M.D., M.S. LAB URINE ORD ERABLES Performing Organization Address City/[facility]/ZIP Co de Phone Number [facility] [address] [place] [address], [facility] DTL [facility][note 3] [address] [place] [address] * pH, Urine (02/20/2023 6:05 AM CYTOGENETICS TECHNOLOGIST) Only the most recent of3 resultswithin the time period is included. pH, U 5.4 4.5 - 8.0 02/20/2023 7:0 9 AM CYTOGENETICS TECHNOLOGIST DT Urine 02/20/2023 6:05 AM CYTOGENETICS TECHNOLOGIST 02/20/2023 6:39 AM CYTOGENETICS TECHNOLOGIST Peter Alva M.D., M.S. LAB URINE ORD ERABLES Performing Organization Address City/[facility]/ZIP Co de Phone Number [facility] [address] [place] [address], [facility] [address] [place] [address] * Osmolality, Urine (02/20/2023 6:05 AM CYTOGENETICS TECHNOLOGIST) Only the most recent of3 resultswithin the time period is included. Osmolality, U 726 150 - 1150 mOsm/kg 02/20/2023 7:09 AM CYTOGENETICS TECHNOLOGIST DT Urine 02/20/2023 6:05 AM CYTOGENETICS TECHNOLOGIST 02/20/2023 6:39 AM CYTOGENETICS TECHNOLOGIST Peter Alva M.D., M.S. LAB URINE ORD ERABLES Performing Organization Address City/[facility] Co de Phone Number [facility] [address] [place] [address], [facility] [address] [place] [address] * S-TSH (Thyroid-Stimulating Hormone - Sensitive) (02/20/2023 2:34 AM CYTOGENETICS TECHNOLOGIST) TSH, Sensitive 0.9 0.3 - 4.2 mIU/L 02/20/2023 4:20 AM CYTOGENETICS TECHNOLOGIST DT Blood (Blood, Venous) 02/20/2023 2:34 AM CYTOGENETICS TECHNOLOGIST 02/20/2023 2:54 AM CYTOGENETICS TECHNOLOGIST Peter Alva M.D., M.S. LAB BLOOD ADD -ON [facility] [address] [place] [address], [facility] [address] [place] [address] * (ABNORMAL) Glucose, Fasting (02/18/2023 7:34 AM CDT) Only the most recent of2 resultswithin the time period is included. Pathologist [facility] Glucose, P 154(H) 70 - 100 mg/dL 02/18/2023 8:32 AM CDT DTL Last Intake 13 hr 02/18/2023 8:18 AM CDT DTL Blood (Blood, Venous) 02/18/2023 7:34 AM CDT 02/18/2023 8:18 AM CDT Dave Mckeon M.D. LAB BLOOD NON ADD -ON [facility] [address] [place], [place] [address] [address] [place] [address] * (ABNORMAL) Ferritin (02/18/2023 7:34 AM CDT) Only the most recent of2 resultswithin the time period is included. Pathologist [facility] Ferritin, S 21(L) 31 - 409 mcg/L 02/18/2023 8:48 AM CDT DTL Blood (Blood, Venous) 02/18/2023 7:34 AM CDT 02/18/2023 8:18 AM CDT Peter Greenberg M.D. LAB BLOOD ADD-ON [facility] [address] [place], [place] [address] [address] * CEA (Carcinoembryonic Antigen) (02/18/2023 7:33 AM CDT) Pathologist [facility] Carcinoembryonic Ag (CEA), S 2.9 ng/mL 02/18/2023 2:53 PM CDT [facility] Comment: ----REFERENCE VALUE---- <=3.0 (Non-smokers) Some smokers may have elevated CEA, usually <5.0. ----ADDITIONAL INFORMATION---- The testing method is an immunoenzymatic assay manufactured by [employer]. and performed on the [employer] DxI 800. ? Values obtained with different assay methods or kits may be different and cannot be used interchangeably. ? Test results cannot be interpreted as absolute evidence for the presence or absence of malignant disease. Blood (Blood, Venous) 02/18/2023 7:33 AM CDT 02/18/2023 1:02 PM CDT Dave Mckeon M.D. LAB BLOOD ADD-ON [facility] [address] [place] [address] [facility] [address] [place] [address] * Interpretation of Outside CT Abdomen and or Pelvis (02/08/2023 7:00 AM CDT) Only the most recent of2 resultswithin the time period is included. Anatomical Region Laterality Modality Abdomen, Pelvis, Abdominal R ST LOS, Abdominal ARZ LOS, Abdominal FLA LOS, Other N/A Computed Tomography 02/10/2023 7:41 AM CDT Impressions 02/10/2023 7:45 AM CDT Mild thickening of the sigmoid colon likely representing a primary colonic neoplasm. No findings for metastatic disease in the abdomen or pelvis. Narrative 02/10/2023 7:45 AM CDT EXAM: ??INTERPRETATION OF OUTSIDE CT ABDOMEN AND OR PELVIS CT of the abdomen pelvis with intravenous contrast dated 02/01/2023. COMPARISON: ??CT from 04/20/2019 FINDINGS: ??Endoscopic clips in the sigmoid colon with mild adjacent mural thickening likely representing the site of the primary colonic neoplasm. No lymphadenopathy. No solid organ metastasis. Cholelithiasis. Atrophy of the tail the pancreas with parenchymal calcifications in the head, likely related to chronic pancreatitis. Normal caliber pancreatic duct. Focal cortical scarring in both kidneys. Left renal cysts. Normal liver, spleen and adrenal glands. Fat- containing umbilical hernia. Vascular calcifications. Lumbar spine degenerative change. This examination was performed in conjunction with a CT of the chest, which will be reported separately. Procedure Note Iván Paulino M.D. - 02/10/2023 EXAM: INTERPRETATION OF OUTSIDE CT ABDOMEN AND OR PELVIS CT of the abdomen pelvis with intravenous contrast dated 02/01/2023. COMPARISON: CT from 04/20/2019 FINDINGS: Endoscopic clips in the sigmoid colon with mild adjacent muralthickening likely representing the site of the primary colonic neoplasm. No lymphadenopathy.No solid organ metastasis. Cholelithiasis. Atrophy of the tail the pancreas with parenchymalcalcifications in the head, likely related to chronic pancreatitis. Normal caliber pancreatic duct. Focalcortical scarring in both kidneys. Left renal cysts. Normal liver, spleen and adrenal glands.Fat- containing umbilical hernia. Vascular calcifications. Lumbar spine degenerative change. This examination was performed in conjunction with a CT of the chest,which will be reported separately. IMPRESSION: Mild thickening of the sigmoid colon likely representing a primary colonicneoplasm. No findings for metastatic disease in the abdomen or pelvis. Dave Mckeon M.D. [facility] CT PROCEDURES * Interpretation of Outside CT Chest (02/08/2023 6:59 AM CDT) Anatomical Region Laterality Modality Chest, Thoracic RST LOS, Tho racic ARZ LOS, Thoracic FLA LOS, Other, Body N/A Computed Tomography 02/08/2023 9:29 AM CDT Impressions 02/08/2023 9:48 AM CDT 1. ??Indeterminate solid noncalcified pulmonary nodules measuring up to [address] follow-up is recommended in the setting of known malignancy. 2. ??Small bilateral pleural effusions are new from 04/15/2021. 3. ??A few borderline enlarged 10 mm mediastinal and right hilar lymph nodes. 4. ??This report only contains findings in the chest. This examination was performed in conjunction with a CT scan of the abdomen, which is reported separately, if requested for interpretation. Narrative 02/08/2023 9:48 AM CDT EXAM: ??INTERPRETATION OF OUTSIDE CT CHEST Interpretation of outside chest CT with IV contrast dated 02/01/2023. COMPARISON: ??No prior chest CTs are available for comparison. Comparison with prior outside abdominal CT from 04/15/2021 and [facility] chest radiograph from 01/05/2022. FINDINGS: Several scattered small indeterminate solid noncalcified pulmonary nodules which were either not included in the [id number] were not clearly visible on prior abdominal CTs. For example: 3 mm solid noncalcified left upper lobe pulmonary nodule on . Sub-3 mm right upper lobe nodule on Sub-3 mm right upper lobe nodule on . Sub-3 mm right middle lobe nodule on . Sub-3 mm lingular nodule on . Small calcified granuloma right lung. Mild smooth interlobular septal thickening in the left upper lobe. Mild bibasilar atelectasis adjacent to the pleural effusions. Trace retained secretions in the trachea. Small bilateral pleural effusions, left larger than right, are new from 04/15/2021. No pneumothorax. Borderline enlarged 10 mm right hilar lymph node on . Borderline enlarged 10 mm precarinal lymph node on with a normal fat-containing hilum. Borderline enlarged 10 mm AP window lymph node on . Mildly prominent 9 mm low right anterior diaphragmatic lymph node is similar to the prior abdominal CT. No size significant axillary lymphadenopathy. Trivial pericardial effusion. Scattered atherosclerotic vascular calcifications, including the coronary arteries. Mild lipomatous hypertrophy of the interatrial septum. Bilateral gynecomastia. Hypertrophic and degenerative changes of the spine. Bridging anterior vertebral body osteophytes. Punctate foci of sclerosis left anterior 4th rib on . This report only contains findings in the chest. This examination was performed in conjunction with a CT scan of the abdomen, which is reported separately, if requested for interpretation. Procedure Note Kinsey Austin M.D. - 02/08/2023 EXAM: INTERPRETATION OF OUTSIDE CT CHEST Interpretation of outside chestCT with IV contrast dated 02/01/2023. COMPARISON: No prior chest CTs are available for comparison. Comparisonwith prior outside abdominal CT from 04/15/2021 and [facility] chest radiograph from01/05/2022. FINDINGS: Several scattered small indeterminate solid noncalcified pulmonary noduleswhich were either not included in the [id number] were not clearly visible on prior abdominalCTs. For example: 3 mm solid noncalcified left upper lobe pulmonary nodule on . Sub-3 mm right upper lobe nodule on Sub-3 mm right upper lobe nodule on . Sub-3 mm right middle lobe nodule on . Sub-3 mm lingular nodule on . Small calcified granuloma right lung. Mild smooth interlobular septalthickening in the left upper lobe. Mild bibasilar atelectasis adjacent to the pleural effusions. Traceretained secretions in the trachea. Small bilateral pleural effusions, left larger than right, are new from04/15/2021. No pneumothorax. Borderline enlarged 10 mm right hilar lymph node on . Borderlineenlarged 10 mm precarinal lymph node on with a normal fat-containing hilum. Borderline enlarged 10 mmAP window lymph node on . Mildly prominent 9 mm low right anterior diaphragmatic lymph node issimilar to the prior abdominal CT. No size significant axillary lymphadenopathy. Trivial pericardial effusion. Scattered atherosclerotic vascularcalcifications, including the coronary arteries. Mild lipomatous hypertrophy of the interatrialseptum. Bilateral gynecomastia. Hypertrophic and degenerative changes of the spine. Bridging anteriorvertebral body osteophytes. Punctate foci of sclerosis left anterior 4th rib on . This report only contains findings in the chest. This examination wasperformed in conjunction with a CT scan of the abdomen, which is reported separately, if requested forinterpretation. IMPRESSION: 1. Indeterminate solid noncalcified pulmonary nodules measuring up to 3mm. Chest CT follow-up is recommended in the setting of known malignancy. 2. Small bilateral pleural effusions are new from 04/15/2021. 3. A few borderline enlarged 10 mm mediastinal and right hilar lymphnodes. 4. This report only contains findings in the chest. This examination wasperformed in conjunction with a CT scan of the abdomen, which is reported separately, if requestedfor interpretation. Dave GROSS CT PROCEDURES * CT chest abdomen pelv w con-Outside CT Body (02/01/2023 4:00 PM CDT) Only the most recent of5 resultswithin the time period is included. Narrative [facility]IM[facility] - 02/07/2023 11:34 AM CDT This order has been created and auto-finalized to support the import of outside images. If available, original interpretation can be found on the Media Tab in Chart Review, in Document Viewer, or as an image in QREADS. If a re-interpretation or overread is required please follow defined workflow. ?? Provider Not In System IMG CT PROCEDURES [facility] NA * Pathology Review of Outside Material (01/31/2023 2:45 PM CDT) 02/24/2023 4:03 PM CYTOGENETICS TECHNOLOGIST DTL Participated in the Interpretation Candi Cantu M.D.-Pathology Fellow 02/24/2023 4:03 PM CYTOGENETICS TECHNOLOGIST DTL Report electronically signed by Bridgette Don M.D. I verify that I have examined all relevant slides/materials for the specimen(s) and rendered or confirmed the diagnosis. 02/24/2023 4:03 PM CYTOGENETICS TECHNOLOGIST DTL Material Received A. [id number]: Colon, ascending, transverse, descending, sigmoid ? 23 stained slides 02/24/2023 4:03 PM CYTOGENETICS TECHNOLOGIST DTL Interpretation FINAL DIAGNOSIS Colon, biopsy ([id number]; 01/31/2023): ? A. ??Colon, proximal, ascending, mass, biopsy: Invasive moderately differentiated adenocarcinoma. Immunohistochemis try for mismatch repair proteins was performed at an outside institution and reviewed at [facility]. ??The neoplastic cells revealed the following: MLH1: Intact, MSH2: Intact, MSH6: Intact, PMS2: Intact. 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 ? B. ??Colon, transverse, polyps, polypectomy: ??Fragments of tubular adenomas, low-grade dysplasia. ??Inflammatory type polyp. ? C. ??Colon, descending, polyps, polypectomy: ??Fragments of tubular adenomas, low-grade dysplasia. ? D. ??Colon, sigmoid, polyp, polypectomy: ??Moderately differentiated adenocarcinoma, focus measures 6 x 3 x 3 mm, superficially invasive, extending 1 mm into the submucosa, arising in background of pedunculated tubulovillous adenoma, completely excised. The invasive carcinoma component is 7 mm to the closest inked surgical resection margin. ??Lymphovascular invasion and perineural invasion are not identified. ??Tumor budding is low score (0-4). Diagnosis was made via digital imaging. 02/24/2023 4:03 PM CYTOGENETICS TECHNOLOGIST DTL Varies 01/31/2023 2:45 PM CDT 02/11/2023 10:24 AM CDT Dave Mckeon M.D. LAB SURG PATH ORD ERABLES Performing Organization Address City/[facility]/ZIP Co de Phone Number [facility] [address] [place] [address], [facility] DT [address] [place] [address] * CT cervical spine wo con-Outside CT Neuro (12/31/2022 9:35 PM CDT) Only the most recent of4 resultswithin the time period is included. 12/31/2022 9:29 PM CDT Narrative IIPA - 01/01/2023 12:04 AM CDT This order has been created and auto-finalized to support the import of outside images. If available, original interpretation can be found on the Media Tab in Chart Review, in Document Viewer, or as an image in QREADS. If a re-interpretation or overread is required please follow defined workflow. ?? Provider Not In System IMG CT PROCEDURES Performing Organization Address City/[facility]/ZIP Co de Phone Number [facility] NA * XR INJ EPIDURAL INTERLAMINAR LUMBAR-Outside XA (11/30/2022 9:25 AM CDT) Narrative IIPA - 12/01/2022 2:59 PM CDT This order has been created and auto-finalized to support the import of outside images. If available, original interpretation can be found on the Media Tab in Chart Review, in Document Viewer, or as an image in QREADS. If a re-interpretation or overread is required please follow defined workflow. ?? Provider Not In System IMG NON RAD IMAGI NG PROCEDURES Performing Organization Address [facility] de Phone Number [facility] NA * MR SPINE LUMBAR WO-Outside MR Neuro (11/29/2022 4:30 AM CDT) Narrative IIMS - 12/01/2022 2:59 PM CDT This order has been created and auto-finalized to support the import of outside images. If available, original interpretation can be found on the Media Tab in Chart Review, in Document Viewer, or as an image in QREADS. If a re-interpretation or overread is required please follow defined workflow. ?? Provider Not In System IMG MRI PROCEDURE S Performing Organization Address [facility] de Phone Number II NA * (ABNORMAL) Dipstick, POCT, Urine (11/27/2022 3:28 AM CDT) Only the most recent of2 resultswithin the time period is included. Glucose, POCT, U 100(A) Negative mg/dL 11/27/2022 3:30 AM CDT PCED Ketone, POCT, U Negative Negative mg/dL 11/27/2022 3:30 AM CDT PCED Specific [place], POCT, U 1.020 1.005 - 1.030 11/27/2022 3:30 AM CDT PCED Blood, POCT, U Negative Negative 11/27/2022 3:30 AM CDT PCED pH, POCT, Urine 7.0 5.0 - 8.0 11/27/2022 3:30 AM CDT PCED Protein, POCT, U 30(A) Negative mg/dL 11/27/2022 3:30 AM CDT PCED Nitrites, POCT, U Negative Negative 11/27/2022 3:30 AM CDT PCED Leukocytes, POCT, U Negative Negative 11/27/2022 3:30 AM CDT PCED Urine 11/27/2022 3:28 AM CDT 11/27/2022 3:31 AM CDT Unknown Provider LAB POCT ORDERABLES - DEVICE Performing Organization Address [facility] Co de Phone Number POC RST [facility] [address] [place] [address], [facility] PCED [facility] POC [address] [place] [address] * Microscopic Automated (11/27/2022 3:23 AM CDT) Only the most recent of3 resultswithin the time period is included. Microscopy Normal 11/27/2022 4:2 8 AM CDT DTL Urine 11/27/2022 3:23 AM CDT 11/27/2022 4:06 AM CDT Merlin Moffett M.D. LAB URINE ORDERABLES Performing Organization Address [facility] Co de Phone Number [facility] [address] [place] [address], [facility] DTL [facility][note 3] [address] [place] [address] * (ABNORMAL) Creatinine with Estimated GFR (11/01/2022 6:42 AM CDT) Only the most recent of8 resultswithin the time period is included. Creatinine 1.49(H) 0.74 - 1.35 mg/dL 11/01/2022 7:08 AM CDT CNFL Estimated GFR (eGFR) 50(L) >=60 mL/min/BSA 11/01/2022 7:08 AM CDT CNFL Comment: Estimated GFR calculated using the 2020 CKD_EPI creatinine equation. Blood (Blood, Venous) 11/01/2022 6:42 AM CDT 11/01/2022 6:47 AM CDT William Briggs M.D. LAB BLOOD ADD-ON [facility] [address] [place] [address], [place] CNFL [facility] in [address] [address] * Phosphorus Inorganic (10/12/2022 6:53 AM CDT) Only the most recent of4 resultswithin the time period is included. Phosphorus (Inorganic), S 3.7 2.5 - 4.5 mg/dL 10/12/2022 8:07 AM CDT DTL Blood (Blood, Venous) 10/12/2022 6:53 AM CDT 10/12/2022 7:48 AM CDT Kandace Weaver APRN C.N.P., M.S.N. LEEROY Gómez BLOOD ADD-ON [facility] [address] [place] [address], [facility] [address] [place] [address] * (ABNORMAL) Renal Function Panel (10/11/2022 2:11 PM CDT) Only the most recent of2 resultswithin the time period is included. Potassium, S 4.9 3.6 - 5.2 mmol/L 10/11/2022 3:03 PM CDT DTL Sodium, S 138 135 - 145 mmol/L 10/11/2022 3:03 PM CDT DTL Chloride, S 105 98 - 107 mmol/L 10/11/2022 3:03 PM CDT DTL Bicarbonate, S 24 22 - 29 mmol/L 10/11/2022 3:03 PM CDT DTL Anion Gap 9 7 - 15 10/11/2022 3:03 PM CDT DTL BUN (Blood Urea Nitrogen), S 28(H) 8 - 24 mg/dL 10/11/2022 3:03 PM CDT DTL Creatinine 1.85(H) 0.74 - 1.35 mg/dL 10/11/2022 3:03 PM CDT DTL Estimated GFR (eGFR) 39(L) >=60 mL/min/BSA 10/11/2022 3:03 PM CDT DTL Comment: Estimated GFR calculated using the 2020 CKD_EPI creatinine equation. Calcium, Total, S 8.7(L) 8.8 - 10.2 mg/dL 10/11/2022 3:03 PM CDT DTL Glucose, S 177(H) 70 - 140 mg/dL 10/11/2022 3:03 PM CDT DTL Albumin, S 3.6 3.5 - 5.0 g/dL 10/11/2022 3:03 PM CDT DTL Phosphorus (Inorganic), S 3.4 2.5 - 4.5 mg/dL 10/11/2022 3:03 PM CDT DTL Blood (Blood, Venous) 10/11/2022 2:11 PM CDT 10/11/2022 2:47 PM CDT Kandace Weaver APRN, C.N.P., M.S.N. LA B BLOOD ADD-ON Performing Organization Address [facility] Co de Phone Number [address] [place] [address] * (ABNORMAL) HemoQuant, Feces (10/11/2022 1:21 PM CDT) Hemoglobin, Fecal 4.6(H) <=2 mg Hb/g 10/12/2022 1:51 PM CDT DTL Comment: ----ADDITIONAL INFORMATION---- This test was developed and its performance characteristics determined by [facility] in a manner consistent with CLIA requirements. This test has not been cleared or approved by the U.S. Food and Drug Administration. Stool (Stool) 10/11/2022 1:2 1 PM CDT 10/11/2022 2:05 PM CDT Maria Elena Morris M.D., Ph.D. LAB BODY FL UIDS AND STOOLS ORDERABLES Performing Organization Address [facility] Co de Phone Number [address] [place] [address] * US Kidneys Bilateral with Bladder (10/11/2022 8:30 AM CDT) Anatomical Region Laterality Modality Abdomen, Renal, Ultrasound R ST LOS, Ultrasound ARZ LOS, Ultrasound FLA LOS Bilateral Ultrasound 10/11/2022 8:46 AM CDT Impressions 10/11/2022 8:56 AM CDT Atrophic pauma kidneys bilaterally. No hydronephrosis. Narrative 10/11/2022 8:56 AM CDT EXAM: US KIDNEYS BILATERAL WITH BLADDER COMPARISON: CT from 04/15/2021. FINDINGS: Right kidney: 10.2 cm Cortical thickness: Atrophic. Parenchymal echogenicity: Normal. Collecting system: No hydronephrosis. Masses: None detected. Left kidney: 13.2 cm Cortical thickness: Atrophic. Parenchymal echogenicity: Normal. Collecting system: No hydronephrosis. Masses: None detected. Benign lower pole cyst. Bladder: Normal. Procedure Note Iván Paulino M.D. - 10/11/2022 EXAM: US KIDNEYS BILATERAL WITH BLADDER COMPARISON: CT from 04/15/2021. FINDINGS: Right kidney: 10.2 cm Cortical thickness: Atrophic. Parenchymal echogenicity: Normal. Collecting system: No hydronephrosis. Masses: None detected. Left kidney: 13.2 cm Cortical thickness: Atrophic. Parenchymal echogenicity: Normal. Collecting system: No hydronephrosis. Masses: None detected. Benign lower pole cyst. Bladder: Normal. IMPRESSION: Atrophic pauma kidneys bilaterally. No hydronephrosis. Kandace Weaver APRN C.N.P., M.S.N. IM G US PROCEDURES * Methylmalonic Acid (MMA), Quantitative, Serum (10/08/2022 7:05 AM CDT) Methylmalonic Acid, QN, S 0.14 <=0.40 nmol/mL 10/12/2022 10:48 AM CDT DTL Comment: No cellular B-12 deficiency. ----ADDITIONAL INFORMATION---- This test was developed and its performance characteristics determined by [facility] in a manner consistent with CLIA requirements. This test has not been cleared or approved by the U.S. Food and Drug Administration. Blood 10/08/2022 7:05 AM CDT 10/08/2022 12:08 PM CDT Mady Melgoza P.A.-C. LAB BLOOD NON ADD-ON [facility] [address] [place] [address], [facility] DT [address] [facility] [address] [place] [address] * Pernicious Anemia Salvo (10/08/2022 7:05 AM CDT) Pathologist [facility] Vitamin B12 Assay, S 362 180 - 914 ng/L 10/08/2022 12:08 PM CDT [facility] Comment:B-12 <400; MMA test was performed. Blood (Blood, Venous) 10/08/2022 7:05 AM CDT 10/08/2022 10:03 AM CDT Mady Melgoza P.A.-C. LAB BLOOD NON ADD-ON Performing Organization Address City/[facility]/ZIP Co de Phone Number [facility] [address] [place] [address] [facility] [address] [place] [address] * Reticulocytes (10/08/2022 7:05 AM CDT) [facility] Reticulocytes, B 2.14 0.60 - 2.71 % 10/08/2022 8:00 AM CDT DTL Absolute Reticulocyte 84.3 30.4 - 110.9 x10(9)/L 10/08/2022 8:00 AM CDT DTL Blood (Blood, Venous) 10/08/2022 7:05 AM CDT 10/08/2022 7:50 AM CDT Mady Melgoza P.A.-C. LAB BLOOD ADD- ON [facility] [address] [place] [address], [facility] [address] [place] [address] * Folate (10/08/2022 7:05 AM CDT) Folate, S 11.7 >=4.0 mcg/L 10/08/2022 10:55 AM CDT DTL Blood (Blood, Venous) 10/08/2022 7:05 AM CDT 10/08/2022 8:06 AM CDT Mady Melgoza P.A.-C. LAB BLOOD ADD- ON [facility] [address] [place] [address], [facility] [address] [place] [address] * Venous Lower Extremity - Hemodynamic Study (04/05/2022 8:33 AM CYTOGENETICS TECHNOLOGIST) Anatomical Region Laterality Modality Other 04/05/2022 7:30 AM CYTOGENETICS TECHNOLOGIST Narrative 04/05/2022 7:30 AM CYTOGENETICS TECHNOLOGIST Right: VENOUS PLETHYSMOGRAPHY: ?Not done due to body habitus. ??CONTINUOUS WAVE DOPPLER: ? Signals are patent, spontaneous, phasic and augment normally where evaluated. (Absent spontaneous and phasic Posterior Tibial signals may be a normal variant). Deep Venous Incompetence: ?No deep venous incompetence detected. ?? Left: VENOUS PLETHYSMOGRAPHY: ?Not done due to body habitus. ??CONTINUOUS WAVE DOPPLER: ? Signals are patent, spontaneous, phasic and augment normally where evaluated. (Absent spontaneous and phasic Posterior Tibial signals may be a normal variant). ?? Deep Venous Incompetence: ?No deep venous incompetence detected. ?? Conclusions: Limited study due to body habitus. No evidence of obstruction or incompetence, by continuous wave Doppler,in the tested deep veins bilaterally. Comparison: No prior studies. Procedure Note Teodoro Candelaria M.D., M.S. - 04/05/2022 Right: VENOUS PLETHYSMOGRAPHY: Not done due to body habitus.CONTINUOUS WAVE DOPPLER: Signals are patent, spontaneous, phasic andaugment normally where evaluated. (Absent spontaneous and phasic PosteriorTibial signals may be a normal variant). Deep Venous Incompetence: No deep venous incompetence detected. Left: VENOUS PLETHYSMOGRAPHY: Not done due to body habitus. CONTINUOUSWAVE DOPPLER: Signals are patent, spontaneous, phasic and augmentnormally where evaluated. (Absent spontaneous and phasic Posterior Tibialsignals may be a normal variant). Deep Venous Incompetence: No deep venous incompetence detected. Conclusions: Limited study due to body habitus. No evidence of obstructionor incompetence, by continuous wave Doppler,in the tested deep veinsbilaterally. Comparison: No prior studies. Claribel Alan M.D., Ph.D. [facility] ULAR PROCEDURES * LOWER EXTREMITY ARTERIAL - STANDARD PROTOCOL (04/05/2022 8:27 AM CYTOGENETICS TECHNOLOGIST) Anatomical Region Laterality Modality Other 04/05/2022 7:42 AM CYTOGENETICS TECHNOLOGIST Narrative 04/05/2022 7:42 AM CYTOGENETICS TECHNOLOGIST Right: Doppler Waveforms: ? Normal at all levels evaluated. ?? Resting Index: ? KENISHA (PT)- ??Index not calculated due to non-compressible vessel (KENISHA > 1.4). ? KENISHA (DP)- ??Index not calculated due to non-compressible vessel (KENISHA > 1.4). ? TBI- ??0.87 ?? Left: Doppler Waveforms: ? Normal at all levels evaluated. ?? Resting Index: ? KENISHA (PT)- ??Index not calculated due to non-compressible vessel (KENISHA > 1.4). ? KENISHA (DP)- ??Index not calculated due to non-compressible vessel (KENISHA > 1.4). ? TBI- ??0.69 ?? Conclusions: Poorly compressible vessels bilaterally. No significant peripheral artery disease in the lower extremities, by Doppler waveforms. Comparison: No prior studies. Procedure Note Teodoro Candelaria M.D., M.S. - 04/05/2022 Right: Doppler Waveforms: Normal at all levels evaluated. RestingIndex: KENISHA (PT)- Index not calculated due to non-compressible vessel(KENISHA > 1.4). KENISHA (DP)- Index not calculated due to non-compressiblevessel (KENISHA > 1.4). TBI- 0.87 Left: Doppler Waveforms: Normal at all levels evaluated. RestingIndex: KENISHA (PT)- Index not calculated due to non-compressible vessel(KENISHA > 1.4). KENISHA (DP)- Index not calculated due to non-compressiblevessel (KENISHA > 1.4). TBI- 0.69 Conclusions: Poorly compressible vessels bilaterally. No significantperipheral artery disease in the lower extremities, by Doppler waveforms.Comparison: No prior studies. Claribel Alan M.D., Ph.D. CV [facility] ULKY PROCEDURES * ECG AMBULATORY REAL TIME CARDIAC MONITORING (01/27/2022 7:31 AM CDT) Min Heart Rate 52 bpm INFOBIONIC MOME Max Heart Rate 113 bpm INFOBIONIC MOME Mean Heart Rate 70 bpm INFOBIONIC MOME VE Total Beats 22,325 count INFOBIONIC MOME VE Percent Beats 1.65% percent INFOBIONIC MOME SVE Total Beats 87723 count INFOBIONIC MOME SVE Percent Beats 2.27% percent INFOBIONIC MOME Holter Pauses 0 count INFOBIONIC MOME AF Count 0 count INFOBIONIC MOME AF Duration 0 sec duration INFOBIONIC MOME AF [place] 0% percent INFOBIONIC MOME VT Runs 0 count INFOBIONIC MOME SVT Runs 46 count INFOBIONIC MOME Symptom Count 7 count INFOBIONIC MOME 01/11/2022 12:0 2 PM CDT Narrative INFOBIONIC MOME - 01/28/2022 7:45 AM CDT 1. The patient was monitored from 01/14/2022 to 01/27/2022 with a total monitoring time of 13 days 42 min. The baseline rhythm was sinus with intermittent sinus arrhythmia. Accelerated junctional rhythm was seen intermittently. The heart rate varied from 52 to 113 BPM. The average heart rate was 70 BPM. 2. There were 22,325 PVCs seen singly with a PVC burden of 1.65%. 3. There were 30,312 PACs seen singly, in pairs and in a trigeminal pattern with a PAC burden of 2.27%. There were 46 runs of supraventricular tachycardia observed. The longest run of SVT was 40 beats. The maximum SVT rate was 128 BPM. Total PAC counts may be inaccurate due to the frequency of sinus arrhythmia. 4. The patient reported 7 symptomatic events of fast irregular heart beat. During these events, the rhythm was sinus with intermittent sinus arrhythmia. The heart rate varied from 69 to 98 BPM. There were single PACs seen. Dye Blender: SAIGE Barron/SAIGE Tenorio Procedure Note Balaji Hawkins Jr., M.D. - 01/28/2022 1. The patient was monitored from 01/14/2022 to 01/27/2022 with a totalmonitoring time of 13 days 42 min. The baseline rhythm was sinus withintermittent sinus arrhythmia. Accelerated junctional rhythm was seenintermittently. The heart rate varied from 52 to 113 BPM. The average heart rate was 70 BPM. 2. There were 22,325 PVCs seen singly with a PVC burden of 1.65%. 3. There were 30,312 PACs seen singly, in pairs and in a trigeminalpattern with a PAC burden of 2.27%. There were 46 runs of supraventriculartachycardia observed. The longest run of SVT was 40 beats. The maximum SVTrate was 128 BPM. Total PAC counts may be inaccurate due to the frequency of sinus arrhythmia. 4. The patient reported 7 symptomatic events of fast irregular heartbeat. During these events, the rhythm was sinus with intermittent sinusarrhythmia. The heart rate varied from 69 to 98 BPM. There were singlePACs seen. Dye Blender: SAIGE Barron/SAIGE Tenorio Kristian Dasilva M.D. CV CARDIAC SERVICES PROCEDURES INFOBIONIC MOME NA * HOLTER MONITOR - IN 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 (01/05/2022 11:52 AM CDT) Min Heart Rate 61 bpm INFOB IONIC MOME Max Heart Rate 123 bpm INFOB IONIC MOME Mean Heart Rate 82 bpm INFOBIONIC MOME VE Total Beats 218 count INFOB IONIC MOME VE Percent Beats less than 1 percent INFOBIONIC MOME SVE Total Beats 43918 count INFOBIONIC MOME SVE Percent Beats 19 percent INFOBIONIC MOME AF Count 0 count INFOBIONIC MOME AF Duration 0 duration INFOBION IC MOME AF [place] 0 percent INFOBIONIC MOME Symptom Count 2 count INFOBI ONIC MOME 01/04/2022 9:54 AM CDT Narrative INFOBIONIC MOME - 01/08/2022 1:14 PM CDT 1. The basic rhythm was sinus with intermittent junctional beats with retrograde P waves. The total analyzed time was 18h 48m. The heart rate varied from 61 to 123 bpm. The average HR was 82 bpm. 2. Premature ventricular complexes were noted singly. There were 218 PVCs recorded with a PVC burden of less than 1%. 3. Premature supraventricular complexes, at times with aberrancy, were noted singly, in couplets, in bigeminy, and in two hundred 3 to 150 beat atrial runs with a maximum rate of 142 bpm. There were 18,044 PACs recorded with a PAC burden of 19%. 4. A total of 2 symptomatic events were noted, with symptoms of short of breath. The rhythm was sinus. The heart rate was 81 bpm. At and around these times atrial runs were noted 3 to 150 beats in duration with a maximum rate of 117 bpm and PACs were seen singly. Dye Blender: Kvng Burt/Azeem Fox Procedure Note Adriano Reed M.D. - 01/08/2022 1. The basic rhythm was sinus with intermittent junctional beats withretrograde P waves. The total analyzed time was 18h 48m. The heart ratevaried from 61 to 123 bpm. The average HR was 82 bpm. 2. Premature ventricular complexes were noted singly. There were 218 PVCsrecorded with a PVC burden of less than 1%. 3. Premature supraventricular complexes, at times with aberrancy, werenoted singly, in couplets, in bigeminy, and in two hundred 3 to 150 beatatrial runs with a maximum rate of 142 bpm. There were 18,044 PACsrecorded with a PAC burden of 19%. 4. A total of 2 symptomatic events were noted, with symptoms of short ofbreath. The rhythm was sinus. The heart rate was 81 bpm. At and aroundthese times atrial runs were noted 3 to 150 beats in duration with amaximum rate of 117 bpm and PACs were seen singly. Dye Blender: Kvng Burt/Azeem Fox Mickey Galvan M.D. CV CARDIAC SERVI LUCAS PROCEDURES INFOBIONIC ARTEMIO NA * DX Chest AP or PA and Lateral 2 Views (01/05/2022 10:29 AM CDT) Only the most recent of3 resultswithin the time period is included. Anatomical Region Laterality Modality Chest, Thoracic RST LOS, Tho racic ARZ LOS, Thoracic FLA LOS N/A Digital Radiography 01/05/2022 11:0 8 AM CDT Impressions 01/05/2022 11:10 AM CDT Since 09/04/2014, no significant change given differences in technique. Diffusely increased mediastinal fat, including pericardial fat. Cardiac silhouette remains within normal limits in size. No pulmonary edema or pleural effusions. Degenerative changes of the skeleton. Narrative 01/05/2022 11:10 AM CDT EXAM: ??DX CHEST AP OR PA AND LATERAL 2 VIEWS Procedure Note Eli Holcomb M.D. - 01/05/2022 EXAM: DX CHEST AP OR PA AND LATERAL 2 VIEWS IMPRESSION: Since 09/04/2014, no significant change given differences in technique.Diffusely increased mediastinal fat, including pericardial fat. Cardiac silhouetteremains within normal limits in size. No pulmonary edema or pleural effusions. Degenerativechanges of the skeleton. Mickey Galvan M.D. IMG DIAGNOSTIC I MAGING PROCEDURES * Thyroperoxidase (TPO) Antibodies, Serum (01/04/2022 11:12 AM CDT) Thyroperoxidase Ab, S 3.3 <9.0 IU/mL 01/04/2022 1:42 PM CDT DTL Blood 01/04/2022 11:1 2 AM CDT 01/04/2022 11:58 AM CDT Mickey Galvan M.D. LAB BLOOD NON AD D-ON Performing Organization Address City/[facility]/ZIP Co de Phone Number [facility] [address] [place] [address], [facility] [address] [place] [address] * T4 (Thyroxine), Free, Serum (01/04/2022 11:12 AM CDT) Pathologist [facility] T4 (Thyroxine), Free, S 1.2 0.9 - 1.7 ng/dL 01/04/2022 12:46 PM CDT DT Blood 01/04/2022 11:1 2 AM CDT 01/04/2022 11:58 AM CDT Narrative Authorizing Provider Result Charlene Galvan M.D. LAB BLOOD ADD-ON Performing Organization Address City/[facility]/ZIP Co de Phone Number [facility] [address] [place] [address], [facility] [address] [place] [address] * (ABNORMAL) Thyroid Function [place] (01/04/2022 11:12 AM CDT) Pathologist [facility] TSH, Sensitive 4.5(H) 0.3 - 4.2 mIU/L 01/04/2022 12:26 PM CDT DTL Blood (Blood, Venous) 01/04/2022 11:12 AM CDT 01/04/2022 11:58 AM CDT Mickey Galvan M.D. LAB BLOOD ADD-ON [facility] [address] [place] [address], [facility] DTL [facility] [address] [place] [address] * (TTE) 2D ECHO DOPPLER COLOR AND CONTRAST (01/04/2022 9:00 AM CDT) Ejection Fraction 61 MC CV EIMS Proximal Ascending Aorta 34 MC CV EIMS LV Mass Index 82 MC CV EIMS LV End-Diastolic Diameter 53 MC CV EIMS LV End-Systolic Diameter 35 MC CV EIMS MV E Velocity 0.80 MC CV EIMS MV A Velocity 0.90 MC CV EIMS MV E/A 0.89 MC CV EIMS MV e' Velocity Medial 0.11 MC CV EIMS MV e' Velocity Lateral 0.12 MC CV EIMS MV E/e' Medial 7.30 MC CV EIMS MV E/e' Lateral 6.70 MC CV EIMS Left ventricular stroke volume index 43 MC CV EIMS Cardiac Output 12.60 MC CV EIMS Cardiac Index 4.01 MC CV EIMS LV Interventricular Septal Wall Thickness 12 MC CV EIMS LV Posterior Wall Thickness 12 MC CV EIMS LV Relative Wall Thickness 45 MC CV EIMS Tricuspid Annular S? 0.11 MC CV EIMS RA Pressure 5 MC CV EIMS Aortic valve area 4.67 MC CV EIMS Aortic Valve Dimensionless Index 0.76 MC CV EIMS LA Volume Index 23 MC CV EIMS Aortic Valve Systolic Peak Velocity 1.20 MC CV EIMS Anatomical Region Laterality Modality Echocardiography 01/04/2022 7:36 AM CDT Impressions 01/04/2022 9:12 AM CDT Intravenous Lumason ultrasound enhancement agent(s) administered to enhance endocardial border definition. LEFT VENTRICLE:Normal left ventricular chamber size. Abnormal left ventricular geometry with mild concentric remodeling (increased wall thickness to cavity ratio). Calculated 2-D linear left ventricular ejection fraction 61%. No regional wall motion abnormalities. Indeterminate left ventricular filling pressure. RIGHT VENTRICLE:Normal right ventricular chamber size. Normal right ventricular systolic function. Unable to detect peak tricuspid regurgitation velocity for pulmonary artery systolic pressure calculation. ATRIA:Normal left atrial size according to indexed value. Left atrial volume index 23 ml/m2. Normal right atrial size. CARDIAC VALVES:Trileaflet aortic valve. Mildly thickened aortic valve. No aortic valve regurgitation. Normal mitral valve. Trivial mitral valve regurgitation. Normal pulmonary valve. Trivial pulmonary valve regurgitation. Normal tricuspid valve. Trivial tricuspid valve regurgitation. OTHER ECHO FINDINGS:Normal inferior vena cava size. Normal ascending aorta diameter (proximal). Abdominal aorta incompletely visualized. Normal abdominal aorta Doppler flow pattern. No atrial level shunt by color flow imaging. No intracardiac mass or thrombus, but the left atrial appendage cannot be visualized adequately with transthoracic echo to exclude thrombus in this location. No ??pericardial effusion. There are no previous [facility] echocardiograms available for comparison. For the complete report, see the Order-Level Documents. Narrative 01/04/2022 9:12 AM CDT For the complete report, see the Order-Level Documents. Hemodynamics Heart Rate: 75 BPM Blood Pressure: 146 / 83 mmHg ECG: Atrial fibrillation with ectopics Final Impressions 1. Normal left ventricular chamber size, no regional wall motion abnormalities, calculated 2-D linear ejection fraction 61%. 2. Abnormal left ventricular geometry with mild concentric remodeling (increased wall thickness to cavity ratio), indeterminate filling pressure. 3. Normal right ventricular chamber size, normal systolic function, unable to detect peak tricuspid regurgitation velocity for pulmonary artery systolic pressure calculation. 4. Valve changes consistent with patient age. Procedure Note Lorelei Foreman M.D. - 01/04/2022 For the complete report, see the Order-Level Documents. Hemodynamics Heart Rate: 75 BPM Blood Pressure: 146 / 83 mmHg ECG: Atrial fibrillation with ectopics Final Impressions 1. Normal left ventricular chamber size, no regional wall motionabnormalities, calculated 2-D linear ejection fraction 61%. 2. Abnormal left ventricular geometry with mild concentric remodeling(increased wall thickness to cavity ratio), indeterminate fillingpressure. 3. Normal right ventricular chamber size, normal systolic function, unableto detect peak tricuspid regurgitation velocity for pulmonary arterysystolic pressure calculation. 4. Valve changes consistent with patient age. Findings Intravenous Lumason ultrasound enhancement agent(s) administered toenhance endocardial border definition. LEFT VENTRICLE:Normal left ventricular chamber size. Abnormal leftventricular geometry with mild concentric remodeling (increased wallthickness to cavity ratio). Calculated 2-D linear left ventricularejection fraction 61%. No regional wall motion abnormalities.Indeterminate left ventricular filling pressure. RIGHT VENTRICLE:Normal right ventricular chamber size. Normal rightventricular systolic function. Unable to detect peak tricuspidregurgitation velocity for pulmonary artery systolic pressurecalculation. ATRIA:Normal left atrial size according to indexed value. Left atrialvolume index 23 ml/m2. Normal right atrial size. CARDIAC VALVES:Trileaflet aortic valve. Mildly thickened aortic valve. Noaortic valve regurgitation. Normal mitral valve. Trivial mitral valveregurgitation. Normal pulmonary valve. Trivial pulmonary valveregurgitation. Normal tricuspid valve. Trivial tricuspid valveregurgitation. OTHER ECHO FINDINGS:Normal inferior vena cava size. Normal ascending aortadiameter (proximal). Abdominal aorta incompletely visualized. Normalabdominal aorta Doppler flow pattern. No atrial level shunt by color flowimaging. No intracardiac mass or thrombus, but the left atrial appendagecannot be visualized adequately with transthoracic echo to excludethrombus in this location. No pericardial effusion. There are no [facility] echocardiograms available for comparison. For the complete report, see the Order-Level Documents. Mickey Galvan M.D. CV ECHO PROCEDUR ES * PA CYSTOURETHROSCOPY (03/03/2021 2:05 PM CYTOGENETICS TECHNOLOGIST) Narrative Mickey Ledezma APRN, C.N.P. - 03/03/2021 2:05 PM CYTOGENETICS TECHNOLOGIST Mickey Ledezma APRN, C.N.P. ? 03/03/2021 ??2:07 PM URO Cystoscopy (general) Date/Time: 03/03/2021 2:05 PM Performed by: Mickey Ledezma APRN, C.N.P. Authorized by: Mickey Galvan M.D. Care team members present 1. Mickey Ledezma APRN, C.N.P. 2. Christina Johnson IMPRESSION ?? Negative cystoscopy Additional procedures performed: cystoscopy ?? PROCEDURE DETAILS This is a pleasant 70-year-old who presents today for cystoscopy in the setting of microscopic hematuria as well as voiding symptoms. Patient was brought to the cystoscopy suite and prepped and draped in the typical fashion. ??Patient was found to have a concealed penis and even with significant pressure, the glans could not be exposed. ??Cystoscope was inserted into the cicatrix and advanced until visualization of the meatus was noted. ??I then advanced into the penile urethra and advance the scope. The urethra was severely torturous as I could not apply traction to the retracted penis. ??Sphincter appeared to coapted well. ??Prostate was nonobstructive in appearance. ??Bladder was entered. ??Castillo cystoscopy was negative for stones, foreign bodies, suspicious erythema, or papillary change. ??There was some moderate trabeculation as well as several cellules throughout the bladder. ??Ureteral orifices were orthotopic effluxing clear urine. ??Retroflex demonstrated a flat bladder neck without intravesical protrusion of the prostate. ??Scope was then removed. ??Patient tolerated the procedure well. Impression 1. Concealed penis 2. No visible anatomic outlet obstruction on cystoscopy 3. Patient follow-up with Zahira Rae PA-C later this week CONSENT Consent obtained: verbal Consent given by: patient The benefits, risks and alternatives to the procedure and the potential need for sedation or anesthesia as well as the names, roles, and responsibilities of healthcare team members performing significant interventional tasks were discussed with the patient and/or decision maker. UNIVERSAL PROTOCOL All relevant documentation and testing were reviewed and available. All required blood products, implants, devices and or special equipment were made available as applicable. Pre-procedure verification was conducted and the correct site was marked if required. A fire risk assessment was done as applicable. The procedural time-out was conducted prior to performing the procedure and confirmed in a procedural pause. PRE-PROCEDURE DETAILS Procedure purpose: ??Diagnostic Appropriate hand hygiene, gown, cap, mask, protective eyewear, sterile gloves, skin preparation, sterile drape, and strict aseptic technique were utilized as applicable for the procedure.: yes ?? Site preparation: ??Povidone-iodine SEDATION / ANESTHESIA Anesthesia method: none POST-PROCEDURE DETAILS Procedure completed successfully: yes ?? Complications: no apparent complications ?? Mickey Galvan M.D. UROLOGY ORDERABL ES * Osmolality, Urine (03/03/2021 11:43 AM CYTOGENETICS TECHNOLOGIST) Only the most recent of2 resultswithin the time period is included. Osmolality, U 761 150 - 1150 mOsm/kg 03/03/2021 4:18 PM CYTOGENETICS TECHNOLOGIST DTL Urine 03/03/2021 11:4 3 AM CYTOGENETICS TECHNOLOGIST 03/03/2021 2:38 PM CYTOGENETICS TECHNOLOGIST Mickey Galvan M.D. LAB URINE ORDERA BLEKristie [facility] [address] [place] [address], [facility] [address] [place] [address] * pH, Random, Urine (03/03/2021 11:43 AM CYTOGENETICS TECHNOLOGIST) Only the most recent of2 resultswithin the time period is included. pH, Random, U 6.4 4.5 - 8.0 03/03/2021 4:18 PM CYTOGENETICS TECHNOLOGIST DTL Urine 03/03/2021 11:4 3 AM CYTOGENETICS TECHNOLOGIST 03/03/2021 2:38 PM CYTOGENETICS TECHNOLOGIST Mickey Galvan M.D. LAB URINE ORDERA ANNALEE Performing Organization Address [facility] Co de Phone Number [facility] [address] [place] [address], [facility] [address] [place] [address] * Gram Stain, Urine (03/03/2021 11:43 AM CYTOGENETICS TECHNOLOGIST) Only the most recent of3 resultswithin the time period is included. Source Urine, Urine, Midstream 03/03/2021 2:37 PM CYTOGENETICS TECHNOLOGIST DTL Gram's Stain, Screen, U CANCELED 03/03/2021 2:38 PM CYTOGENETICS TECHNOLOGIST DTL Comment: Changed to a more appropriate test due to specimen/source received. Result canceled by the ancillary. Urine (Urine, Midstream) 03/03/2021 11:43 AM CYTOGENETICS TECHNOLOGIST 03/03/2021 2:37 PM CYTOGENETICS TECHNOLOGIST Narrative Authorizing Provider Result Charlene Galvan M.D. LAB URINE ORDERA BLEKristie Performing Organization Address City/[facility]/ZIP Co de Phone Number [facility] [address] [place], [place] [id number] [place] [address] [address] [place] [address] * URO Uroflow (03/03/2021 10:45 AM CYTOGENETICS TECHNOLOGIST) Narrative Steffen Pringle M.D. - 03/03/2021 10:45 AM CYTOGENETICS TECHNOLOGIST Steffen Pringle M.D. ? 03/03/2021 12:23 PM Reason for visit: UROFLOW The patient is here for a complex uroflow via calibrated electronic equipment and residual urine checked by ultrasound. Indications: ??Recurrent urinary tract infection Peak flow: ??13 ??ml/sec Average flow: ??5.5 ??ml/sec Voiding time: ?? 29.3 ??sec Total voided volume: ??106 ??mls Continuous (smooth) flow pattern Residual urine: ??0 ??ml by ultrasound Impression: Low voided volume with low postvoid residual. ?? Mickey Galvan M.D. UROLOGY ORDERABL ES * Gram Stain, Confirmatory, Urine (12/11/2020 1:01 PM CDT) Only the most recent of2 resultswithin the time period is included. Grams Stain, Confirmatory, Urine Negative Negative 12/11/2020 5:52 PM CDT DTL Urine 12/11/2020 1:01 PM CDT 12/11/2020 2:24 PM CDT Mickey Glavan M.D. LAB URINE [facility]A [facility] [address] [place], [place] [address] [address] [place] [address] * PA CYSTHRSCPY RMVL FB/STENT SMPL (05/07/2019 10:30 AM CYTOGENETICS TECHNOLOGIST) Narrative Keith Lovelace, BETHANY, C.N.P., M.S.N. - 05/07/2019 10:30 AM CYTOGENETICS TECHNOLOGIST OKevinEron, Keith J, MANUFACTURED BUILDINGS REPAIRER, C.N.P., M.S.N. ? 05/07/2019 11:08 AM Cysto w/stent removal Date/Time: 05/07/2019 11:06 AM Performed by: Keith Lovelace APRN, C.N.P., M.S.N. Authorized by: Lynda Yanes M.D. IMPRESSION ?? Foreign body Additional procedures performed: cystoscopy and stent removal ?? PROCEDURE DETAILS Imaging obtained: ??yes Urethral stent removed: Side performed: ??Right Removal: simple ?? The patient was brought back to the cystoscopy suite put in the lithotomy position. ??The patient was prepped and draped in the normal fashion. ?? Flexible cystoscope was inserted into the urethra and entered the bladder. Upon entrance to the bladder the right ureteral stent was visualized. ??A stent grasper was inserted in the ureteral stent was removed in its entirety. ??The patient tolerated the procedure well without complication. CONSENT Consent obtained: verbal Consent given by: patient The benefits, risks and alternatives to the procedure and the potential need for sedation or anesthesia as well as the names, roles, and responsibilities of healthcare team members performing significant interventional tasks were discussed with the patient and/or decision maker. [employer] All relevant documentation and testing were reviewed and available. All required blood products, implants, devices and or special equipment were made available as applicable. Pre-procedure verification was conducted and the correct site was marked if required. A fire risk assessment was done as applicable. The procedural time-out was conducted prior to performing the procedure and confirmed in a procedural pause. PRE PROCEDURE DETAILS Procedure purpose: ??Diagnostic Appropriate hand hygiene, gown, cap, mask, protective eyewear, sterile gloves, skin preparation, sterile drape, and strict aseptic technique were utilized as applicable for the procedure.: yes ?? Site preparation: ??Povidone-iodine SEDATION / ANESTHESIA Anesthesia method: none POST PROCEDURE DETAILS Procedure completed successfully: yes ?? Complications: no apparent complications ?? COMMENTS The ordering provider is responsible for reviewing results of the procedure and communicating the findings to the patient. ??Patient was educated on post procedure instructions. ?? Lynda Yanes M.D. UROLOGY ORDERABLES * CT Abdomen Pelvis Kidney Stone Quant without IV Contrast (04/20/2019 1:00 PM CYTOGENETICS TECHNOLOGIST) Anatomical Region Laterality Modality Abdomen, Pelvis, Abdominal R ST LOS, Abdominal ARZ LOS, Abdominal FLA LOS N/A Computed Tomograp hy, Computed Tomography 04/20/2019 1:02 PM CYTOGENETICS TECHNOLOGIST Impressions 04/20/2019 1:13 PM CYTOGENETICS TECHNOLOGIST Interval placement of a right ureteral stent with removal of the obstructing right UVJ stone. Several right renal calculi persist. Tiny nonobstructing left renal calculi. Narrative 04/20/2019 1:13 PM CYTOGENETICS TECHNOLOGIST EXAM: ??CT ABDOMEN PELVIS KIDNEY STONE QUANT WITHOUT IV CONTRAST. 3D images were created on an independent workstation as ordered by the treating provider and reviewed by the radiologist as required to determine stone volumes. COMPARISON: ??Outside renal stone CT from 03/11/2019 FINDINGS: ??Interval placement of a right ureteral stent with removal of the obstructing right UVJ stone since 03/11/2018. Several nonobstructing calculi persist throughout the right kidney, the largest a 6 mm calculus in the inferior pole. Punctate nonobstructing calculi in the left kidney. Tiny locules of gas in the right renal collecting system and bladder likely related to recent instrumentation. No hydronephrosis. Left renal cyst. Renal stone quantification evaluation: Right kidney (A/V) 206/226 Left kidney (A/V) 24/22.7 Cholelithiasis. Marked atrophy of the pancreatic parenchyma with coarse calcifications in the head, likely related to chronic pancreatitis. Degenerative change in the lumbar spine. Procedure Note Iván Paulino M.D. - 04/20/2019 EXAM: CT ABDOMEN PELVIS KIDNEY STONE QUANT WITHOUT IV CONTRAST. 3D images were created on an independent workstation as ordered by thetreating provider and reviewed by the radiologist as required to determine stonevolumes. COMPARISON: Outside renal stone CT from 03/11/2019 FINDINGS: Interval placement of a right ureteral stent with removal ofthe obstructing right UVJ stone since 03/11/2018. Several nonobstructingcalculi persist throughout the right kidney, the largest a 6 mm calculus in theinferior pole. Punctate nonobstructing calculi in the left kidney. Tiny locules ofgas in the right renal collecting system and bladder likely related to recent instrumentation. No hydronephrosis. Left renal cyst. Renal stone quantification evaluation: Right kidney (A/V) 206/226 Left kidney (A/V) 24/22.7 Cholelithiasis. Marked atrophy of the pancreatic parenchyma with coarse calcifications in the head, likely related to chronic pancreatitis.Degenerative change in the lumbar spine. IMPRESSION: Interval placement of a right ureteral stent with removal of the obstructing right UVJ stone. Several right renal calculi persist. Tiny nonobstructing left renal calculi. Turner Souza M.D. IMG CT PROCEDURES * FL Fluoro Less Than 1 Hour (04/04/2019 1:34 PM CYTOGENETICS TECHNOLOGIST) Only the most recent of2 resultswithin the time period is included. Narrative 152 HOS LOS RST - 04/04/2019 1:34 PM CYTOGENETICS TECHNOLOGIST This exam does not require a radiologist review or interpretation. Please refer to the patient's medical record on this date for clinical details. James Mina M.D. G FLUOROSCOPY PROC EDURES 152 HOS LOS RST * Kidney Stone Analysis (04/04/2019 1:26 PM CYTOGENETICS TECHNOLOGIST) Only the most recent of3 resultswithin the time period is included. Source Stone, Ureter, Right 04/05/2019 9:56 PM CYTOGENETICS TECHNOLOGIST [facility] Stone Interpretation 100% Uric acid 04/05/2019 9:56 PM CYTOGENETICS TECHNOLOGIST [facility] Stone (Ureter, Right) 04/04/2019 1:26 PM CYTOGENETICS TECHNOLOGIST James Mina M.D. LAB MISC ORDERABLES [facility] [address] [place] [address] [facility] Dept. of Laboratory Medicine and Pathology [address] [place] [address] * LDA ANE ENDOTRACHEAL AIRWAY (04/04/2019 11:49 AM CYTOGENETICS TECHNOLOGIST) Narrative Deyvi Gordon R.N. - 04/04/2019 11:49 AM CYTOGENETICS TECHNOLOGIST Deyvi Gordon R.N. ? 04/04/2019 11:51 AM Airway Date/Time: 04/04/2019 11:27 AM Performed by: Deyvi Gordon R.N. Authorized by: Herman Cruz M.D. Patient location during procedure: OR / Procedure Area PROCEDURE DETAILS: Mask difficulty assessment: difficult mask (i.e.two-handed) Final airway type: video laryngoscope Laryngeal Manipulation: no ?? Final best view of glottic structures - Cormack/Lehane Score: grade 2B ETT location: oral VL device: glide scope Parkman scope blade size: 4 Adult tube size: 7.5 Adult ETT distance at teeth/gum: 25 Oral tube type: standard ETT Cuffed: yes Number of attempt to successful placement: 1 Airway confirmation: bilateral breath sounds, positive ETCO2 and bilateral chest rise Other previous techniques attempted: none PRE PROCEDURE DETAILS: Pre evaluation for airway management: procedure Urgency: elective Preop assessment of probable difficulty: questionable / suspicious difficult airway Preoxygenation: bag valve mask SEDATION / ANESTHESIA Anesthesia method: anesthesia POST PROCEDURE DETAILS: ? Procedure outcome: successful ?? Airway event: no complications Herman Cruz M.D. ANESTHESIA ORDERAB LES * Non-Radiology Image-Urology Image Exam (03/12/2019 1:02 PM CYTOGENETICS TECHNOLOGIST) Only the most recent of3 resultswithin the time period is included. 03/12/2019 1:21 PM CYTOGENETICS TECHNOLOGIST Narrative [facility] - 03/12/2019 1:02 PM CYTOGENETICS TECHNOLOGIST This order has been created and auto-finalized to support the import of images acquired without order. The clinical documentation to support these images can be found on the encounter that produced images. Provider Not In System IMG NON RAD IMAGI NG PROCEDURES [facility] NA * LDA ANE ENDOTRACHEAL AIRWAY (03/12/2019 12:27 PM CYTOGENETICS TECHNOLOGIST) Narrative Dashawn Iqbal APRN, CRNA, D.N.P. - 03/12/2019 12:27 PM CYTOGENETICS TECHNOLOGIST Dashawn Iqbal APRN, CRNA, D.N.P. ? 03/12/2019 12:28 PM Airway Date/Time: 03/12/2019 12:02 PM Performed by: Dashawn Iqbal APRN, CRNA D.N.P. Authorized by: Scooby Haas M.D. Care team members present 1. Dashawn Iqbal APRN, CRNA D.N.P. Patient location during procedure: OR / Procedure Area PROCEDURE DETAILS: Mask difficulty assessment: oral/nasal airway needed Final airway type: video laryngoscope Laryngeal Manipulation: no ?? Final best view of glottic structures - Cormack/Lehane Score: grade 1 ETT location: oral VL device: glide scope Parkman scope blade size: 4 Adult tube size: 7.5 Adult ETT distance at teeth/gum: 24 Oral tube type: standard ETT Cuffed: yes Number of attempt to successful placement: 1 Airway confirmation: bilateral breath sounds, positive ETCO2 and bilateral chest rise Other previous techniques attempted: none PRE PROCEDURE DETAILS: Pre evaluation for airway management: procedure Urgency: elective Preop assessment of probable difficulty: anticipated / known difficult airway Preoxygenation: bag valve mask SEDATION / ANESTHESIA Anesthesia method: anesthesia POST PROCEDURE DETAILS: ? Procedure outcome: successful ?? Airway event: no complications Scooby Haas M.D. ANESTHESIA [facility] * Fungal Culture, Routine (03/12/2019 12:25 PM CYTOGENETICS TECHNOLOGIST) Fungal Culture, Routine No growth after 24 days of incubation. 04/06/2019 1:01 AM CYTOGENETICS TECHNOLOGIST DTL Urine (Urine, Cystoscopy) 03/12/2019 12:25 PM CYTOGENETICS TECHNOLOGIST Ashkan Villanueva M.D. LAB MICROBIOLOGY - G ENERAL ORDERABLES [facility] [address] [place] [address], [facility] [address] [place] [address] * Ketones, Qual, Urine (03/12/2019 4:36 AM CYTOGENETICS TECHNOLOGIST) Only the most recent of3 resultswithin the time period is included. Ketones, QL(U) Negative Negative mg/dL 03/12/2019 6:26 AM CYTOGENETICS TECHNOLOGIST ELOY Urine 03/12/2019 4:36 AM CYTOGENETICS TECHNOLOGIST 03/12/2019 5:44 AM CYTOGENETICS TECHNOLOGIST Sonja Huff M.D. LAB URINE ORDERAB LES [facility] [address] [place] [address], [facility] ELOY [facility][note 3] [address] [place] [address] * CT Abdomen Pelvis without IV Contrast (12/12/2018 7:25 AM CDT) Only the most recent of2 resultswithin the time period is included. Anatomical Region Laterality Modality Abdomen, Pelvis, Abdominal R ST LOS, Abdominal ARZ LOS, Abdominal FLA LOS N/A Computed Tomography 12/12/2018 7:54 AM CDT Impressions 12/12/2018 8:05 AM CDT Interval decrease in size of the multiple calculi in the right kidney. Narrative 12/12/2018 8:05 AM CDT EXAM: ??CT ABDOMEN PELVIS WITHOUT IV CONTRAST COMPARISON: ??Previous study dated 07/25/2017. FINDINGS: ??Dual energy CT stone analysis could not be performed due to patient body habitus. Interval decrease in size of the multiple right renal calculi. Specifically the largest of the 4 stones in the right renal pelvis measures 8 mm as compared to 11 mm on 07/25/2018. The small branching stone in the lower pole of the right kidney also appear slightly smaller. The 4 small stones in the right renal pelvis appear to have calcific density on CT sewage disposal engineer images suggesting that the nidus of the stones may not be uric acid in composition. No change in the thinning of the parenchyma of the upper pole the right kidney. No left renal calculi. No ureteral calculi. No evidence of urinary obstruction. 4Stable mildly enlarged right external iliac (2/61) and left common iliac (2/125) lymph node ??when comparing back to 11/25/2014. Cholelithiasis. Fatty replacement of pancreas. 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 Cyst lower pole left kidney. Procedure Note Eric Man M.D. - 12/12/2018 EXAM: CT ABDOMEN PELVIS WITHOUT IV CONTRAST COMPARISON: Previous study dated 07/25/2017. FINDINGS: Dual energy CT stone analysis could not be performed due topatient body habitus. Interval decrease in size of the multiple right renal calculi.Specifically the largest of the 4 stones in the right renal pelvis measures 8 mm ascompared to 11 mm on 07/25/2018. The small branching stone in the lower pole of theright kidney also appear slightly smaller. The 4 small stones in the rightrenal pelvis appear to have calcific density on CT sewage disposal engineer images suggesting thatthe nidus of the stones may not be uric acid in composition. No change in the thinning of the parenchyma of the upper pole the rightkidney. No left renal calculi. No ureteral calculi. No evidence of urinaryobstruction. 4Stable mildly enlarged right external iliac (2/61) and left commoniliac (2/125) lymph node when comparing back to 11/25/2014. Cholelithiasis.Fatty replacement of pancreas. No change in the calcifications in the head ofthe pancreas likely due to old pancreatitis. Cyst lower pole left kidney. IMPRESSION: Interval decrease in size of the multiple calculi in the right kidney. Mickey Galvan M.D. [facility] CT PROCEDURE S * (ABNORMAL) Supersaturation Profile, 24 Hour, Urine (07/26/2018 9:00 AM CDT) Sodium, 24 HR, U 116 41 - 227 mmol/24 h 9 1:36 PM CDT [facility] Potassium, 24 HR, U 35 17 - 77 mmol/24 h 9 1:36 PM CDT [facility] Calcium, 24 HR, U 37 <250 mg/24 h 9 1:36 PM CDT [facility] Comment: ----ADDITIONAL INFORMATION---- This test was developed and its performance characteristics determined by [facility] in a manner consistent with CLIA requirements. This test has not been cleared or approved by the U.S. Food and Drug Administration. Magnesium, 24 HR, U 46(L) 51 - 269 mg/24 h 9 1:36 PM CDT [facility] Comment: ----ADDITIONAL INFORMATION---- This test has been modified from the procedures analyst's instructions. Its performance characteristics were determined by [facility] in a manner consistent with CLIA requirements. This test has not been cleared or approved by the U.S. Food and Drug Administration. Chloride, 24 HR, U 110 40 - 224 mmol/24 h 9 1:36 PM CDT [facility] Phosphorus, 24 HR, U 742 <1100 mg/24 h 9 1:36 PM CDT [facility] Sulfate Urine 11 7 - 47 mmol/24 h 9 1:07 AM CDT [facility] Comment: ----ADDITIONAL INFORMATION---- This test was developed and its performance characteristics determined by [facility] in a manner consistent with CLIA requirements. This test has not been cleared or approved by the U.S. Food and Drug Administration. Citrate Excretion, U 107 mg/24 h 9 1:36 PM CDT [facility] Comment: ----REFERENCE VALUE---- Reference values have not been established for patients who are >60 years of age. ----ADDITIONAL INFORMATION---- This test was developed and its performance characteristics determined by [facility] in a manner consistent with CLIA requirements. This test has not been cleared or approved by the U.S. Food and Drug Administration. Oxalate, U (mmol/24 h) 0.34 0.11 - 0.46 mmol/24 h 9 4:02 PM CDT [facility] Comment: ----ADDITIONAL INFORMATION---- This test was developed and its performance characteristics determined by [facility] in a manner consistent with CLIA requirements. This test has not been cleared or approved by the U.S. Food and Drug Administration. Oxalate, mg/24 h 29.9 9.7 - 40.5 mg/24 h 9 4:02 PM CDT [facility] pH, 24 HR, U 5.3 4.5 - 8.0 04/10/201 9 2:06 PM CDT [facility] Comment: ----ADDITIONAL INFORMATION---- This test was developed and its performance characteristics determined by [facility] in a manner consistent with CLIA requirements. This test has not been cleared or approved by the U.S. Food and Drug Administration. Uric Acid, 24 HR, U 510 <750 (Diet-depen dent) mg/24 h 9 1:36 PM CDT [facility] Comment: ----ADDITIONAL INFORMATION---- This test has been modified from the procedures analyst's instructions. Its performance characteristics were determined by [facility] in a manner consistent with CLIA requirements. This test has not been cleared or approved by the U.S. Food and Drug Administration. Creatinine, 24 HR, U 1641 mg/24 h 9 1:36 PM CDT [facility] Comment: ----REFERENCE VALUE---- The expected creatinine excretion per 24 hrs for males: 955-2936 mg/24 hrs or 13-29 mg/kg/24 hrs. Note: To convert to mg/kg of body weight/24 hrs, divide the mg/24 h result by the weight in kg. Osmolality, 24 HR, U 685 150 - 1150 mOsm/kg 9 2:06 PM CDT [facility] Comment: ----ADDITIONAL INFORMATION---- This test was developed and its performance characteristics determined by [facility] in a manner consistent with CLIA requirements. This test has not been cleared or approved by the U.S. Food and Drug Administration. Ammonium, 24 HR, U 31 15 - 56 mmol/24 h 9 2:57 PM CDT [facility] Comment: ----ADDITIONAL INFORMATION---- This test has been modified from the procedures analyst's instructions. Its performance characteristics were determined by [facility] in a manner consistent with CLIA requirements. This test has not been cleared or approved by the U.S. Food and Drug Administration. Urea Nitrogen, 24 HR, U 7.7 5.0 - 16.0 g/24 h 9 1:36 PM CDT [facility] Protein Catabolic Rate, 24 HR, U 73 56 - 125 g/24 h 9 1:36 PM CDT [facility] Calcium Oxalate Crystal 1.50 Reference Mean= 1.77 DG 9 11:16 AM CDT [facility] Brushite Crystal -2.46 Reference Mean= 0.21 DG 9 11:16 AM CDT [facility] Hydroxyapatite Crystal -0.18 Reference Mean= 3.96 DG 9 11:16 AM CDT [facility] Uric Acid Crystal 4.78(H) Reference Mean= 1.04 DG 9 11:16 AM CDT [facility] Sodium Urate Crystal 1.71 Reference Mean= 1.76 DG 9 11:16 AM CDT [facility] Collection Duration 24 h 11:16 AM CDT [facility] Volume 927 mL 11:16 AM CDT [facility] Interpretation The DG is related to supersaturation. DG is negative for undersaturated solutions, zero for solutions at the solubility product, and positive for saturated solutions. Any value greater than the Reference Mean is considered a risk for the respective crystal type formation. 11:16 AM CDT [facility] Urine (Urine, 24 Hours) 07/26/2018 9:00 AM CDT 07/26/2018 11:00 AM CDT Mickey Galvan M.D. LAB URINE DORIS MANTILLA [facility] [address] [place] [address], [facility] * Monoclonal Protein Study, 24 Hour, Urine (07/26/2018 9:00 AM CDT) Total Protein, 24 HR, U 139 <229 mg/24 h 07/27/2018 8:41 AM CDT [facility] Comment: ----ADDITIONAL INFORMATION---- On 10/12/2016 the total protein assay method changed resulting in approximately a 15% increase in protein values. Collection Duration 24 h 07/27/2018 7:40 AM CDT [facility] Urine Volume 927 mL 07/27/2018 7:40 AM CDT [facility] Concentration 15 mg/dL 07/27/2018 8:41 AM CDT [facility] Albumin, % 38 % 07/28/2018 4:16 PM CDT [facility] Comment:53 mg/24 h Alpha 1-Globulin, % 5 % 07/28/2018 4:16 PM CDT [facility] Comment:7 mg/24 h Alpha-2 globulin, % 18 % 07/28/2018 4:16 PM CDT [facility] Comment:25 mg/24 h Beta globulin, % 17 % 07/29/19 19 4:16 PM CDT [facility] Comment:24 mg/24 h Gamma globulin, % 23 % 07/28/2018 4:16 PM CDT [facility] Comment:32 mg/24 h A/G Ratio 0.60 07/28/2018 4:16 PM CDT [facility] Impression All fractions present, no apparent M-spike. See Immunofixatio n. 07/28/2018 4:16 PM T [facility] Immunofixation, 24 Hr, U No monoclonal protein detected. 08/01/2018 3:04 PM CDT [facility] Urine (Urine, 24 Hours) 07/26/2018 9:00 AM CDT 07/27/2018 10:55 AM CDT Mickey Galvan M.D. LAB URINE ORDERA BLES [facility] [address] [place] [address] [facility] [address] * 1,25-Dihydroxyvitamin D (07/25/2018 11:21 AM CDT) 1, 25 DIHYDROXYVITAMIN D, S 30 18 - 64 pg/mL 07/27/2018 2:00 PM CDT [facility] Comment: ----ADDITIONAL INFORMATION---- This test was developed and its performance characteristics determined by [facility] in a manner consistent with CLIA requirements. This test has not been cleared or approved by the U.S. Food and Drug Administration. Blood (Blood, Venous) 07/25/2018 11:21 AM CDT 07/26/2018 7:08 AM CDT Mickey Galvan M.D. LAB BLOOD ADD-ON Performing Organization Address [facility]/ZIP Co de Phone Number [facility] [address] [place] [address] * 25-Hydroxyvitamin D2 and D3 (07/25/2018 11:21 AM CDT) [facility] 25-Hydroxy D2 <4.0 ng/mL 07/27/2018 2:51 PM CDT [facility] 25-Hydroxy D3 50 ng/mL 07/27/2018 2:51 PM CDT [facility] 25-Hydroxy D Total 50 ng/mL 2018 2:51 PM CDT [facility] Comment: ----REFERENCE VALUE---- 25-HYDROXY D TOTAL (D2+D3) Optimum levels in the healthy population are 20-50, patients with bone disease may benefit from higher levels within this range. ----ADDITIONAL INFORMATION---- This test was developed and its performance characteristics determined by [facility] in a manner consistent with CLIA requirements. This test has not been cleared or approved by the U.S. Food and Drug Administration. Blood (Blood, Venous) 07/25/2018 11:21 AM CDT 07/26/2018 7:49 AM CDT Mickey Galvan M.D. LAB BLOOD ADD-ON Performing Organization Address [facility] Co de Phone Number [facility] [address] [place] [address] * Uric Acid (07/25/2018 11:21 AM CDT) Only the most recent of2 resultswithin the time period is included. Pathologist [facility] Uric Acid, S 3.9 3.7 - 8.0 mg/dL 07/25/2018 12:23 PM CDT [facility] Blood (Blood, Venous) 07/25/2018 11:21 AM CDT 07/25/2018 11:42 AM CDT Mickey Galvan M.D. LAB BLOOD ADD-ON [facility] [address] [place], [place] [address] * ANESTHESIOLOGY IMAGE EXAM (08/26/2016 10:12 AM CDT) Anatomical Region Laterality Modality Other 08/26/2016 10:1 2 AM CDT Addenda Addendum by ProviderLa M.D. on 08/26/2016 10:12 AM CDT ANES^^^MCR Head/Spine 08/26/2016 10:12:00 Historical Provider IMG NON RAD IMAGING PROCEDURES * CT Lumbar Spine without IV Contrast (08/10/2016 10:02 AM CDT) Anatomical Region Laterality Modality Lumbar Spine N/A Computed Tomogra phy 08/10/2016 10:0 2 AM CDT Impressions 08/10/2016 12:45 PM CDT Severe central canal narrowing at L3-4, L4-5, [...] and L3 on 4. Electronically signed by: ?? Kimi Manzano M.D. 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 Multilevel foraminal narrowing, please see description below. FINDINGS: Central canal narrowing: severe at L3-4, L4-5, moderate at L2-3,L5-S1 and mild to moderate at L1-2, due to a combination of congenitallyshort pedicles, osteophyte disc complex, facet and ligamentoushypertrophy. Superimposed lateral recess narrowing at right L1-2, andbilaterally at L3-4. Facet arthropathy at all lumbar levels, prominent at and inferior to L3- 4.Foraminal narrowing: Severe at right L5-S1, moderate to severe at rightL4-5, left L5-S1, moderate at right L3-4, due to a combination offoraminal disc extension, facet and ligamentous hypertrophy. Mild retrolisthesis of L1 on L2, L2 on 3 and L3 on 4. Electronically signed by: Kimi Manzano M.D. [phone] 10-Aug-2016 12:45 Darlyn Thompson M.D. IMG CT PROCEDURES * Microalbuminuria, 24 Hour, Urine (08/13/2015 10:01 AM CDT) 24 Hour Excretion <9 <30 MG/24 H [facility] Albumin Excretion Rate <6 <20 MCG/MIN [facility] Albumin Concentration <5.0 MG/L [facility] Collection Duration 24 H [facility] Urine Volume 1786 ML [facility] 08/13/2015 10:0 1 AM CDT 08/13/2015 10:01 AM CDT Scooby Cabezas M.D. LAB URINE ORDERABLES Performing Organization Address City/[facility] Co de Phone Number [facility] [address] * Polysomnography (PSG) (07/28/2015 8:14 PM CDT) 07/28/2015 8:14 PM CDT Historical Provider SLEEP CENTER ORDERAB LES Performing Organization Address [facility] Co de Phone Number [facility] [address] * PUL Home Overnight Oximetry (07/16/2015 9:00 PM CDT) 07/16/2015 9:00 PM CDT Historical Provider PFT ORDERABLES Performing Organization Address [facility] de Phone Number [facility] [address] * (ABNORMAL) Lipid Panel (07/16/2015 11:49 AM CDT) Cholesterol, Total 174 SeeComment MG/DL [facility] Comment: ? REFERENCE VALUE ? Desirable: < 200 ? Borderline high: 200 - 239 ? High: > or = 240 ? Triglycerides 163(H) SeeComment MG/DL [facility] Comment: ? REFERENCE VALUE ? Normal: <150 ? Borderline high: 150-199 ? High: 200-499 ? Very high: > or =500 ? Cholesterol, Non-HDL, Calculated 140 SeeComment MG/DL [facility] Comment: ? REFERENCE VALUE ? Desirable: <130 ? Above Desirable: 130-159 ? Borderline high: 160-189 ? High: 190-219 ? Very high: > or =220 ? Cholesterol, HDL, S 34(L) >=40 MG/DL [facility] Calculated LDL 107 SeeComment MG/DL [facility] Comment: ? REFERENCE VALUE ? Desirable: <100 ? Above Desirable: 100-129 ? Borderline high: 130-159 ? High: 160-189 ? Very high: > or =190 ? 07/16/2015 11:4 9 AM CDT 07/16/2015 11:49 AM CDT Scooby Cabezas M.D. LAB BLOOD ADD-ON [facility] [address] [place] [address], [facility] * AST (Aspartate Aminotransferase) (07/16/2015 11:49 AM CDT) Only the most recent of2 resultswithin the time period is included. AST, Total, S 16 8 - 48 U/L [facility] 07/16/2015 11:4 9 AM CDT 07/16/2015 11:49 AM CDT Scooby Cabezas M.D. LAB BLOOD ADD-ON [facility] [address] * DX Knee Standing 4 Views (07/10/2015 8:52 AM CDT) Anatomical Region Laterality Modality Radiographic Maggie ging 07/10/2015 8:52 AM CDT Impressions 07/10/2015 8:56 AM CDT Advanced degenerative arthritis of both knees with medial compartment narrowing. Osteopenia. Moderate bilateral knee effusions or synovitis. Electronically signed by: ?? Kristian Richter M.D. [phone] 10-Jul-2015 08:56 Narrative 07/10/2015 8:56 AM CDT 10-Jul-2015 08:52:00 ??Exam: B Knee 4vw/STDG w/patella/PAfl Indications: Pain Knee Madi ORIGINAL REPORT - 10-Jul-2015 08:56:00 EXAM: Both Knee 4vw/STDG w/patella/PAflex: Procedure Note David Richter M.D. - 07/14/2017 10-Jul-2015 08:52:00 Exam: B Knee 4vw/STDG w/patella/PAfl Indications: Pain Knee Madi ORIGINAL REPORT - 10-Jul-2015 08:56:00 EXAM: Both Knee 4vw/STDG w/patella/PAflex: IMPRESSION: Advanced degenerative arthritis of both knees with medialcompartment narrowing. Osteopenia. Moderate bilateral knee effusions orsynovitis. Electronically signed by: Kristian Richter M.D. [phone] 10-Jul-2015 08:56 Chitra Mauricio APRN C.NAjitPAjit IMG DIAGNOST IC IMAGING PROCEDURES * DX Hip to Ankle Standing (07/10/2015 8:52 AM CDT) Anatomical Region Laterality Modality Lower Extremity, Hip, Femur, Knee, TibFib, Ankle N/A Radiographic Imaging 07/10/2015 8:52 AM CDT Impressions 07/10/2015 8:57 AM CDT Osteopenia. Degenerative arthritis of the hips, knees, and right ankle. Electronically signed by: ?? Krisitan Richter M.D. [phone] 10-Jul-2015 08:57 Narrative 07/10/2015 8:57 AM CDT 10-Jul-2015 08:52:00 ??Exam: Lower Extremity Hip to ankle Indications: Pain Knee Madi ORIGINAL REPORT - 10-Jul-2015 08:57:00 EXAM: Lower Extremity Hip to ankle: Procedure Note David Richter M.D. - 07/14/2017 10-Jul-2015 08:52:00 Exam: Lower Extremity Hip to ankle Indications: Pain Knee Madi ORIGINAL REPORT - 10-Jul-2015 08:57:00 EXAM: Lower Extremity Hip to ankle: IMPRESSION: Osteopenia. Degenerative arthritis of the hips, knees, andright ankle. Electronically signed by: Kristian Richter M.D. [phone] 10-Jul-2015 08:57 Chitra Mauricio APRN C.N.P. [facility] [place] DIAGNOST IC IMAGING PROCEDURES * US Abdomen Complete (04/04/2015 9:07 AM CYTOGENETICS TECHNOLOGIST) Anatomical Region Laterality Modality Abdomen N/A Ultrasound 04/04/2015 9:07 AM CYTOGENETICS TECHNOLOGIST Impressions 04/04/2015 10:06 AM CYTOGENETICS TECHNOLOGIST 1. No hydronephrosis. 2. 0.5 cm stone in the inferior pole left kidney. No stones definitively seen on the right. 3. Moderate thinning of the right renal cortex. FINDINGS: Right kidney: Length: ??11.4 cm Cortical thickness: Moderately thinned. Parenchymal echogenicity: ??Normal. No large stones present. Collecting system: ??Not dilated. Masses: ??None detected. Left kidney: Length: ??13.9 cm Cortical thickness: ??Normal. Parenchymal echogenicity: ??Approximately 0.5 cm echogenic stone in the inferior pole. 1.8 x 1.5 x 1.0 cm exophytic simple renal cyst. Collecting system: ??Not dilated. Masses: ??None detected. Bladder: ??Normal. Decompressed. Electronically signed by: ?? Preet Quezada MD [phone] 04-Apr-2015 10:06 ?Josh Kline ?? [phone] 04-Apr-2015 10:06 Narrative 04/04/2015 10:06 AM CYTOGENETICS TECHNOLOGIST 04-Apr-2015 09:07:00 ??Exam: US Retroperitoneal Complete Indications: Stone Kidney;Infection Urinary Tract (UTI) NOS ORIGINAL REPORT - 04-Apr-2015 10:06:00 EXAM: ??US Retroperitoneal Complete COMPARISON: ??Correlation made with CT renal stone protocol dated 01/30/2015. Procedure Note Justin Kline M.D. - 07/15/2017 04-Apr-2015 09:07:00 Exam: US Retroperitoneal Complete Indications: Stone Kidney;Infection Urinary Tract (UTI) NOS ORIGINAL REPORT - 04-Apr-2015 10:06:00 EXAM: US Retroperitoneal Complete COMPARISON: Correlation made with CT renal stone protocol dated1. IMPRESSION: 1. No hydronephrosis. 2. 0.5 cm stone in the inferior pole left kidney. No stones definitivelyseen on the right. 3. Moderate thinning of the right renal cortex. FINDINGS: Right kidney: Length: 11.4 cm Cortical thickness: Moderately thinned. Parenchymal echogenicity: Normal. No large stones present. Collecting system: Not dilated. Masses: None detected. Left kidney: Length: 13.9 cm Cortical thickness: Normal. Parenchymal echogenicity: Approximately 0.5 cm echogenic stone in theinferior pole. 1.8 x 1.5 x 1.0 cm exophytic simple renal cyst. Collecting system: Not dilated. Masses: None detected. Bladder: Normal. Decompressed. Electronically signed by: Preet Quezada MD [phone] 04-Apr-2015 10:06 Josh Kline MD [phone] 10:06 Yumiko BOWMANG US PROCEDURES * Sodium (04/04/2015 7:53 AM CYTOGENETICS TECHNOLOGIST) Only the most recent of3 resultswithin the time period is included. Sodium, S 142 135 - 145 MMOL/L [facility] 04/04/2015 7:53 AM CYTOGENETICS TECHNOLOGIST 04/04/2015 7:53 AM CYTOGENETICS TECHNOLOGIST Yumiko Gutiérrez M.D. LAB BLOOD ADD-ON Performing Organization Address City/[facility]/ZIP Co de Phone Number [facility] [address] * (ABNORMAL) Potassium (04/04/2015 7:53 AM CYTOGENETICS TECHNOLOGIST) Only the most recent of3 resultswithin the time period is included. Potassium, S 3.4(L) 3.6 - 5.2 MMOL/L [facility] 04/04/2015 7:53 AM CYTOGENETICS TECHNOLOGIST 04/04/2015 7:53 AM CYTOGENETICS TECHNOLOGIST Yumiko Gutiérrez M.D. LAB BLOOD ADD-ON Performing Organization Address City/[facility]/ZIP Co de Phone Number [facility] [address] * Bicarbonate (04/04/2015 7:53 AM CYTOGENETICS TECHNOLOGIST) Only the most recent of3 resultswithin the time period is included. HX Bicarbonate, P/S 26 22 - 29 MMOL/L [facility] 04/04/2015 7:53 AM CYTOGENETICS TECHNOLOGIST 04/04/2015 7:53 AM CYTOGENETICS TECHNOLOGIST Yumiko Gutiérrez M.D. LAB BLOOD ADD-ON Performing Organization Address City/[facility] Co de Phone Number [facility] [address] * Calcium, Total (04/04/2015 7:53 AM CYTOGENETICS TECHNOLOGIST) Only the most recent of2 resultswithin the time period is included. Calcium, Total, S 9.6 8.9 - 10.1 MG/DL [facility] 04/04/2015 7:53 AM CYTOGENETICS TECHNOLOGIST 04/04/2015 7:53 AM CYTOGENETICS TECHNOLOGIST Yumiko Gutiérrez M.D. LAB BLOOD ADD-ON [facility] [address] [place] [address], [facility] * CT Abdomen Pelvis Kidney Stone without IV Contrast (01/30/2015 10:31 AM CDT) Only the most recent of2 resultswithin the time period is included. Anatomical Region Laterality Modality Abdomen, Pelvis Computed Tomogra phy 01/30/2015 10:3 1 AM CDT Impressions 01/30/2015 1:09 PM CDT 1. Since 11/25/2014, interval p.o. changes of right PCNL for staghorn calculus. Tiny residual nonobstructive right intrarenal calyceal calculus. 2. Stable nonobstructive left renal calculi. FINDINGS: Interval p.o changes of right staghorn renal calculus extraction and [place] nephroureterostomy tube placement. No hydronephrosis. Tiny (3mm) residual calculus within right mid pole calyx (series 3 image 19). Colon bladder catheter. Examination otherwise unchanged or negative. ??4 mm nonobstructing calyceal calculus in the inferior pole left kidney and tiny nonobstructing calyceal calculus in the superior pole of the left kidney. Renal cyst. Cholelithiasis. Colonic diverticulosis. Borderline-enlarged iliac lymph nodes, including 40 mm] distal external iliac node. Aortoiliac vascular calcifications. Musculoskeletal degenerative changes. Electronically signed by: ?? Preet Crespo [facility] [phone] 30-Jan-2015 13:09 ?Preet Quezada MD [phone] 30-Jan-2015 13:09 Narrative 01/30/2015 1:09 PM CDT 30-Jan-2015 10:31:00 ??Exam: CT Renal Stone AP Indications: [id number] ??CT RENAL STONE - s/p right PCNL, eval residual stone burden ORIGINAL REPORT - 30-Jan-2015 13:09:00 EXAM: ??CT scan of the Abdomen and Pelvis without IV contrast COMPARISON: ??CT abdomen and pelvis renal stone protocol dated 11/25/2014. CT abdomen and pelvis dated 05/06/2014. Procedure Note Wilner Crespo M.B., B.Ch. - 07/14/2017 30-Jan-2015 10:31:00 Exam: CT Renal Stone AP wo Indications: [id number] CT RENAL STONE - s/p right PCNL, eval residualstone burden ORIGINAL REPORT - 30-Jan-2015 13:09:00 EXAM: CT scan of the Abdomen and Pelvis without IV contrast COMPARISON: CT abdomen and pelvis renal stone protocol dated 11/25/2014.CT abdomen and pelvis dated 05/06/2014. IMPRESSION: 1. Since 11/25/2014, interval p.o. changes of right PCNL for staghorncalculus. Tiny residual nonobstructive right intrarenal calyceal calculus. 2. Stable nonobstructive left renal calculi. FINDINGS: Interval p.o changes of right staghorn renal calculus extraction andMalecot nephroureterostomy tube placement. No hydronephrosis. Tiny (3mm)residual calculus within right mid pole calyx (series 3 image 19). Foleybladder catheter. Examination otherwise unchanged or negative. 4 mm nonobstructing calycealcalculus in the inferior pole left kidney and tiny nonobstructing calycealcalculus in the superior pole of the left kidney. Renal cyst.Cholelithiasis. Colonic diverticulosis. Borderline-enlarged iliac lymphnodes, including 40 mm] distal external iliac node. Aortoiliac vascularcalcifications. Musculoskeletal degenerative changes. Electronically signed by: Preet Crespo [facility] [phone] 30-Jan-2015 13:09 Preet Quezada MD [phone] 13:09 Veronique Arango M.D. G CT PROCEDURES * Microbiology Reports (01/29/2015 12:39 PM CDT) Only the most recent of3 resultswithin the time period is included. 01/29/2015 12:3 9 PM CDT 01/29/2015 7:58 PM CDT Narrative [facility] - 02/23/2015 1:09 AM CYTOGENETICS TECHNOLOGIST 29-JAN-2015 KIDNEY, STONE ?SoftOrd# [id number] ?(Ordered 29-JAN-2015; Collected 29-JAN-2015 12:39; Received 29-JAN-2015 19:57) ?[facility] ?FUNGAL CULTURE, ROUTINE ? (Reported 23-FEB-2015 01:09) FINAL ?No growth after 24 days of incubation. ?FUNGAL SMEAR ?(Reported 30-JAN-2015 09:24) FINAL ?Negative ?GRAM STAIN ?(Reported 29-JAN-2015 21:52) FINAL ?No organisms seen. ?BACTERIAL CULTURE, AEROBIC + SUSC ? (Reported 01-FEB-2015 14:02) FINAL ?ENTEROCOCCUS FAECALIS ??4+ ? S=Susceptible; I=Intermediate; R=Resistant; N=Not susceptible; D=Susceptible dose-dependent; ? Results in mcg/mL ?ENTEROCOCCUS FAECALIS ?Penicillin ?4 S ?Gent Synergy ?<=500 S ?Vancomycin ?4 S ?Daptomycin* ?0.12 S ?*Restricted formulary antimicrobials; see intranet link: ?[email or web address] Procedure Note 07/26/2017 29-JAN-2015 KIDNEY, STONESoftOrd# [id number] (Ordered 29-JAN-2015; Collected 29-JAN-2015 12:39; [id number] 19:57) [facility] FUNGAL CULTURE, ROUTINE(Reported 23-FEB-2015 01:09) FINAL No growth after 24 days of incubation. FUNGAL SMEAR(Reported 30-JAN-2015 09:24) FINAL Negative GRAM STAIN(Reported 29-JAN-2015 21:52) FINAL No organisms seen. BACTERIAL CULTURE, AEROBIC + SUSC(Reported 01-FEB-2015 14:02) FINAL ENTEROCOCCUS FAECALIS 4+ S=Susceptible; I=Intermediate; R=Resistant; N=Not susceptible;D=Susceptible dose-dependent; Results in mcg/mL ENTEROCOCCUS FAECALIS Penicillin 4 S Gent Synergy <=500 SVancomycin 4 S Daptomycin* 0.12 S *Restricted formulary antimicrobials; see intranet link: [email or web address] Veronique Arango M.D. LAB MICROBIOLOGY - G ENERAL ORDERABLES [facility] [address] [place] [address], [facility] * Ureaplasma PCR (01/29/2015 12:39 PM CDT) Specimen Source (Ureaplasma PCR) . [facility] Comment:KIDNEY STONE Ureaplasma urealyticum PCR Negative Not Applicable [facility] Ureaplasma parvum PCR Negative Not Applicable [facility] Comment: ? ADDITIONAL INFORMATION ? Laboratory developed test. ? 01/29/2015 12:3 9 PM CDT 01/29/2015 12:39 PM CDT Veronique Arango M.D. LAB MICROBIOLOGY - G ENERAL ORDERABLES [facility] [address] [place] [address], [facility] * Mycoplasma hominis PCR (01/29/2015 12:39 PM CDT) Specimen Source (Myco hominis PCR) . [facility] Comment:KIDNEY STONE Mycoplasma hominis PCR Negative Not Applicable [facility] Comment: ? ADDITIONAL INFORMATION ? Laboratory developed test. ? 01/29/2015 12:3 9 PM CDT 01/29/2015 12:39 PM CDT Veronique Arango M.D. LAB MICROBIOLOGY - G ENERAL ORDERABLES [facility] [address] [place] [address], [place] * ABORh, RBC (01/29/2015 8:46 AM CDT) HXABO/RH BLOOD TYPE A Pos [facility] 01/29/2015 8:46 AM CDT Historical Provider LAB BLOOD BANK TEST ORDERABLES Performing Organization Address City/[facility]/ZIP Co de Phone Number [facility] [address] * Antibody Screen, RBC (01/29/2015 8:46 AM CDT) Antibody Screen Negative [facility] 01/29/2015 8:46 AM CDT Historical Provider LAB BLOOD BANK TEST ORDERABLES Performing Organization Address City/[facility] Co de Phone Number [facility] [address] * DX Knee 4+ Views (12/03/2014 10:43 AM CDT) Anatomical Region Laterality Modality Lower Extremity, Knee N/A Radiograph ic Imaging 12/03/2014 10:4 3 AM CDT Impressions 12/03/2014 10:52 AM CDT ??Advanced osteoarthritis of the left knee with joint space narrowing and osteophyte formation most apparent in the medial compartment. Small suprapatellar joint effusion or synovitis. Prominent prepatellar soft tissue swelling probably from the patient's fall. No acute fracture or radiopaque foreign body left knee. Electronically signed by: ?? Scooby Pineda M.D. 03-Dec-2014 10:52 Narrative 12/03/2014 10:52 AM CDT 03-Dec-2014 10:43:00 ??Exam: L Knee 4vw AP/Lat/Obl Indications: fall ORIGINAL REPORT - 03-Dec-2014 10:52:00 EXAM: ??Knee 4vw AP/Lat/Obl LEFT No comparison. Procedure Note Scooby Pineda M.D. - 07/14/2017 03-Dec-2014 10:43:00 Exam: L Knee 4vw AP/Lat/Obl Indications: fall ORIGINAL REPORT - 03-Dec-2014 10:52:00 EXAM: Knee 4vw AP/Lat/Obl LEFT No comparison. IMPRESSION: Advanced osteoarthritis of the left knee with joint spacenarrowing and osteophyte formation most apparent in the medialcompartment. Small suprapatellar joint effusion or synovitis. Prominentprepatellar soft tissue swelling probably from the patient's fall. Noacute fracture or radiopaque foreign body left knee. Electronically signed by: Scooby Pineda M.D. 03-Dec-2014 10:52 Scooby Miranda P.A.-C. IMG DIAGNOSTIC IM AGING PROCEDURES * CT Examination Not Performed (11/13/2014 11:27 AM CDT) Anatomical Region Laterality Modality Abdomen, Pelvis Computed Tomogra phy 11/13/2014 11:2 7 AM CDT Narrative 11/13/2014 11:29 AM CDT 13-Nov-2014 11:27:00 ??Exam: CT Examination Not Performed Indications: Nephrolithiasis NOS;Stone Kidney ORIGINAL REPORT - 13-Nov-2014 11:29:00 Patient refused examination due to severe claustrophobia. Electronically signed by: ?? Abigail ??Kameron ROSEN ??[phone] 13-Nov-2014 11:29 Procedure Note Yun Melo M.D. - 07/15/2017 13-Nov-2014 11:27:00 Exam: CT Examination Not Performed Indications: Nephrolithiasis NOS;Stone Kidney ORIGINAL REPORT - 13-Nov-2014 11:29:00 Patient refused examination due to severe claustrophobia. Electronically signed by: Abigail Melo MD [phone] 13-Nov-2014 11:29 Veronique Arango M.D. IMG CT PROCEDURES * BUN (Blood Urea Nitrogen) (11/13/2014 9:33 AM CDT) Only the most recent of2 resultswithin the time period is included. BUN (Blood Urea Nitrogen), S 18 8 - 24 MG/DL [facility] 11/13/2014 9:33 AM CDT 11/13/2014 9:33 AM CDT Veronique Arango M.D. LAB BLOOD ADD-ON [facility] [address] * (ABNORMAL) Chloride (11/13/2014 9:33 AM CDT) Only the most recent of2 resultswithin the time period is included. Chloride, S 95(L) 98 - 107 MMOL/L [facility] 11/13/2014 9:33 AM CDT 11/13/2014 9:33 AM CDT Veronique Arango M.D. LAB BLOOD ADD-ON Performing Organization Address City/[facility] Co de Phone Number [facility] [address] * (ABNORMAL) Sedimentation Rate (09/04/2014 10:46 AM CDT) Sedimentation Rate, B 25(H) 0 - 22 MM/1 H [facility] 09/04/2014 10:4 6 AM CDT 09/04/2014 10:46 AM CDT Scooby Cabezas M.D. LAB BLOOD ADD-ON Performing Organization Address City/[facility]/ZIP Co de Phone Number [facility] [address] * Alkaline Phosphatase (09/04/2014 10:46 AM CDT) Alkaline Phosphatase, S 94 45 - 115 U/L [facility] 09/04/2014 10:4 6 AM CDT 09/04/2014 10:46 AM CDT Scooby Cabezas M.D. LAB BLOOD ADD-ON [facility] [address] * PUL Home Overnight Oximetry (05/27/2014 10:29 PM CYTOGENETICS TECHNOLOGIST) 05/27/2014 10:2 9 PM CYTOGENETICS TECHNOLOGIST Historical Provider PFT ORDERABLES [facility] [address] * (ABNORMAL) Microalbumin, Random, Urine (05/27/2014 1:19 PM CYTOGENETICS TECHNOLOGIST) Albumin/Creatinin e Ratio 40(H) <17 MG/G [facility] Microalbumin 69.3 MG/L [facility] Creatinine 172 MG/DL [facility] IC [facility] 05/27/2014 1:19 PM CYTOGENETICS TECHNOLOGIST 05/27/2014 1:19 PM CYTOGENETICS TECHNOLOGIST Duke Marquez M.D. LAB URINE ORDERABLES [facility] [address] * (ABNORMAL) Glucose, Random (05/27/2014 12:54 PM CYTOGENETICS TECHNOLOGIST) Glucose, S 157(H) 70 - 140 MG/DL [facility] 05/27/2014 12:5 4 PM CYTOGENETICS TECHNOLOGIST 05/27/2014 12:54 PM CYTOGENETICS TECHNOLOGIST Duke Marquez M.D. LAB BLOOD TROPONIN [facility] [address] * Pulmonary Function Tests (03/30/2002 9:39 AM CYTOGENETICS TECHNOLOGIST) 03/30/2002 9:39 AM CYTOGENETICS TECHNOLOGIST Elena Contreras M.D. PFT ORDERABLES [facility] [address] * CT Head with IV Contrast (10/30/2001 2:09 PM CDT) Anatomical Region Laterality Modality Head N/A Computed Tomogra phy 10/30/2001 2:09 PM CDT Narrative 10/30/2001 3:54 PM CDT 30-Oct-2001 14:09:00 ??Exam: CT PF/Sella/Orbit & Head w Indications: pituitary microadenoma ORIGINAL REPORT - 30-Oct-2001 15:54:[address] of the sella with contrast. ??This study is limited due to artifact from dental fillings. No definite pituitary abnormality. MRI of the pituitary gland with contrast is recommended for further evaluation if clinically indicated. Otherwise normal. Ind: 132.999 ?? Dia.[email or web address] ?? Electronically signed by: ?? Kristian Keenan M.D. 30-Oct-2001 15:54 ?Marichuy [phone] [id number] 30-Oct-2001 15:54 Procedure Note David Keenan M.D., Ph.D. - 07/22/2017 30-Oct-2001 14:09:00 Exam: CT PF/Sella/Orbit & Head w Indications: pituitary microadenoma ORIGINAL REPORT - 30-Oct-2001 15:54:[address] of the sella with contrast. This study is limiteddue to artifact from dental fillings. No definite pituitary abnormality.MRI of the pituitary gland with contrast is recommended for furtherevaluation if clinically indicated. Otherwise normal. Ind: 132.999 Dia.[email or web address] Electronically signed by: Kristian Keenan M.D. 30-Oct-2001 15:54 Marichuy [phone] 30-Oct-2001 15:54 Mike Maldonado M.D. IMG CT PROCEDURE S * DX Kidneys Ureters Bladder with Tomography (10/30/2001 1:04 PM CDT) Anatomical Region Laterality Modality Abdomen, Pelvis N/A Radiographic Maggie ging 10/30/2001 1:04 PM CDT Narrative 10/30/2001 2:58 PM CDT 30-Oct-2001 13:04:00 ??Exam: -EDWARDDalia w/tomos Indications: htn ORIGINAL REPORT - 30-Oct-2001 14:58:00 KUB with tomograms: No radiopaque renal stones. Left kidney measures approximately 15cm, and right kidney measures approximately 14 cm in length. Electronically signed by: ?? Gwendolyn Bowles M.D. [phone] 30-Oct-2001 14:58 ?Nette Alvarenga [phone] 30-Oct-2001 14:58 Procedure Note Mario Alberto Bowles M.D. - 07/22/2017 30-Oct-2001 13:04:00 Exam: -THEO w/tomcarmina Indications: htn ORIGINAL REPORT - 30-Oct-2001 14:58:00 KUB with tomograms: No radiopaque renal stones. Left kidney measuresapproximately 15cm, and right kidney measures approximately 14 cm inlength. Electronically signed by: Gwendolyn Bowles M.D. [id number] 30-Oct-2001 14:58 Nette [id number]) 30-Oct-2001 14:58 Mike GROSS DIAGNOSTIC I MAGING PROCEDURES * Hx general Pathology Report (02/02/1994 10:28 AM CDT) 02/02/1994 10:2 8 AM CDT 02/02/1994 10:28 AM CDT Narrative [facility] - 02/02/1994 10:28 AM CDT [id number] Surgical Pathology Requested By: ? Galileo Dubon M.D. ?([id number]) ?? TISSUE DESCRIPTION: ?Tissue from the spine (L-5, right) ?? DIAGNOSIS: ?Disk and ligamentous tissue weighing 2.51 grams. ?? [id number] ?Mario Alberto Rivero M.D.:carla Procedure Note 07/08/2017 [id number] Surgical Pathology Requested By: Galileo Dubon M.D.([id number]) TISSUE DESCRIPTION: Tissue from the spine (L-5, right) DIAGNOSIS: Disk and ligamentous tissue weighing 2.51 grams. 02Feb1994 Mario Alberto Rivero M.D.:cubab Marlene Dubon M.D. LAB PATHOLOGY/CYTOLO GY ORDERABLES Performing Organization Address City/State/[facility] Co de Phone Number [facility] [address] [place] [address], [facility] Visit Diagnoses Diagnosis Start Date Apnea Sleep Obstructive 01/19/2018 Stone Kidney 07/25/2018 Stone Kidney 07/25/2018 Stone Kidney 07/25/2018 Stone Kidney 07/25/2018 Stone Kidney 07/25/2018 Stone Kidney 07/25/2018 Diabetes Mellitus Type 2 (HCC) 07/25/2018 Diabetes Mellitus Type 2 (HCC) 07/25/2018 Morbid Obesity Body Mass Index Greater Than Or Equal To 40 Adult ([facility]) 07/25/2018 Nephrolithiasis Calcium Oxalate 07/25/2018 Stones Uric Acid 07/25/2018 Proteinuria 07/25/2018 Hypertension Essential Primary 07/25/2018 Diabetes Mellitus Type 2 (HCC) 08/01/2018 Morbid Obesity Body Mass Index Greater Than Or Equal To 40 Adult ([facility]) 08/01/2018 Stones Uric Acid 08/01/2018 Stones Uric Acid 08/01/2018 Stone Kidney 12/12/2018 Stones Uric Acid 12/12/2018 Stones Uric Acid 12/12/2018 Diabetes Mellitus Type 2 (HCC) 12/12/2018 Morbid Obesity Body Mass Index Greater Than Or Equal To 40 Adult ([facility]) 12/12/2018 Nephrolithiasis 03/12/2019 Nephrolithiasis 03/12/2019 Stone Kidney And Ureteral 03/12/2019 Decline Functional Status 03/12/2019 Stone Kidney And Ureteral 03/26/2019 Preanesthetic Medical Exam 04/02/2019 Stone Kidney And Ureteral 04/02/2019 Hypertension And Chronic Kidney Disease Stage 3 (HCC) 04/02/2019 Chronic Kidney Disease Stage 3 Glomerular Filtration Rate 30 To 59 04/02/2019 Morbid Obesity Body Mass Index Greater Than Or Equal To 40 Adult ([facility]) 04/02/2019 Apnea Sleep Obstructive 04/02/2019 Stone Kidney And Ureteral 04/04/2019 Stone Kidney And Ureteral 04/04/2019 Stone Kidney 04/20/2019 Stone Kidney And Ureteral 05/07/2019 Stent Ureteral Indwelling 05/07/2019 Apnea Sleep Obstructive 08/09/2019 Apnea Sleep Obstructive 08/09/2019 Diabetes Mellitus Type 2 ([facility]) 08/09/2019 Hypertension And Chronic Kidney Disease Stage 3 ([facility]) 08/09/2019 Morbid Obesity Body Mass Index Greater Than Or Equal To 40 Adult ([facility]) 08/09/2019 Apnea Sleep Obstructive 08/14/2020 Hypertension And Chronic Kidney Disease Stage 3 ([facility]) 12/10/2020 Dysuria 12/10/2020 Hypertension And Chronic Kidney Disease Stage 3 ([facility]) 12/11/2020 Hypertension And Chronic Kidney Disease Stage 3 ([facility]) 12/11/2020 Dysuria 12/11/2020 Stones Uric Acid 12/11/2020 Nephrolithiasis 12/11/2020 Chronic Kidney Disease (CKD), Stage 3a Glomerular Filtration Rate (GFR) 45 To 59 ([facility]) 12/11/2020 Urinary Tract Infection Site Not Specified 12/11/2020 Diabetes Mellitus Type 2 ([facility]) 12/11/2020 Hematuria 12/12/2020 Pyuria 12/12/2020 Urinary Tract Infection Site Not Specified 12/12/2020 Deficiency Urethral Sphincter Intrinsic 12/12/2020 Neuromuscular Dysfunction Of Bladder Unspecified 12/12/2020 Other Specified Diabetes Mellitus With Diabetic Chronic Kidney Disease ([facility]) 12/12/2020 Hematuria 03/03/2021 Pyuria 03/03/2021 Urinary Tract Infection Site Not Specified 03/03/2021 Deficiency Urethral Sphincter Intrinsic 03/03/2021 Neuromuscular Dysfunction Of Bladder Unspecified 03/03/2021 Hematuria 03/03/2021 Pyuria 03/03/2021 Urinary Tract Infection Site Not Specified 03/03/2021 Urinary Tract Infection Site Not Specified 03/03/2021 Deficiency Urethral Sphincter Intrinsic 03/03/2021 Infection Urinary Tract Recurrent 03/03/2021 Hematuria 03/05/2021 Pyuria 03/05/2021 Urinary Tract Infection Site Not Specified 03/05/2021 Apnea Sleep Obstructive 03/10/2021 Urinary Tract Infection Site Not Specified 04/30/2021 Diabetes Mellitus Type 2 (HCC) 04/30/2021 Atrial Fibrillation Unspecified (HCC) 06/18/2021 Urinary Tract Infection Site Not Specified 07/21/2021 Diabetes Mellitus Type 2 (HCC) 07/21/2021 Obstructive Sleep Apnea Adult 07/29/2021 Morbid Obesity (HCC) 07/29/2021 Obesity Body Mass Index 30-39.9 Adult 07/29/2021 Fatigue 07/29/2021 Obstructive Sleep Apnea Adult 08/14/2021 Atrial Fibrillation Unspecified (HCC) 01/04/2022 Atrial Fibrillation Unspecified (HCC) 01/04/2022 Atrial Fibrillation Unspecified (HCC) 01/04/2022 Atrial Fibrillation Unspecified (HCC) 01/05/2022 Atrial Fibrillation Unspecified (HCC) 01/07/2022 Obstructive Sleep Apnea Adult 01/07/2022 Morbid Obesity (HCC) 01/07/2022 Diabetes Mellitus Type 2 (HCC) 01/07/2022 Hypertension And Chronic Kidney Disease Stage 3 (HCC) 01/07/2022 Anemia 01/07/2022 Atrial Fibrillation Unspecified (HCC) 01/11/2022 Rash Leg 03/22/2022 Stasis Dermatitis Venous Lower Extremity Right 03/22/2022 Edema Lower Extremity 03/22/2022 Non-Pressure 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) 03/22/2022 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) 03/22/2022 Stasis Dermatitis Venous Lower Extremity Right 04/05/2022 Edema Lower Extremity 04/05/2022 Non-Pressure 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) 04/05/2022 Stasis Dermatitis Venous Lower Extremity Right 04/05/2022 Edema Lower Extremity 04/05/2022 Non-Pressure 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) 04/05/2022 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) 04/05/2022 Pain Back Lumbar 10/07/2022 Pain Low Back Unspecified 10/07/2022 Hypertension And Chronic Kidney Disease Stage 3 (HCC) 10/12/2022 Nephrolithiasis 10/12/2022 Stone Kidney And Ureteral 10/12/2022 Diabetes Mellitus Type 2 (HCC) 10/12/2022 Stenosis Spinal Lumbar With Neurogenic Claudication 10/16/2022 Pain Back Lumbar 10/07/2022 Radiculopathy Lumbar 10/07/2022 Decline Functional Status [R53.81 (ICD-10-CM)] 10/07/2022 Decline Functional Status [R53.81 (ICD-10-CM)] 10/22/2022 Debility [R53.81 (ICD-10-CM)] 10/22/2022 Radiculopathy Lumbar 10/22/2022 Pain Low Back Chronic 10/22/2022 Morbid Obesity (HCC) 10/22/2022 Spinal Stenosis Lumbar Region Without Neurogenic Claudication 10/22/2022 Diabetes Mellitus Type 2 Peripheral Neuropathy (HCC) 10/22/2022 Diabetes Mellitus Type 2 (HCC) 10/22/2022 Hypertension And Chronic Kidney Disease Stage 3 (HCC) 10/22/2022 Pain Back 11/27/2022 Malignant Neoplasm Of Colon Ascending (HCC) 02/07/2023 Malignant Neoplasm Of Colon Ascending (HCC) 02/07/2023 Malignant Neoplasm Of Colon Ascending (HCC) 02/08/2023 Malignant Neoplasm Of Colon Ascending (HCC) 02/17/2023 Diabetes Mellitus Type 2 (HCC) 02/17/2023 Malignant Neoplasm Of Colon Ascending (HCC) 02/18/2023 Malignant Neoplasm Of Colon Ascending (HCC) 02/18/2023 Malignant Neoplasm Of Colon Ascending (HCC) 02/18/2023 Diabetes Mellitus Type 2 (HCC) 02/18/2023 Malignant Neoplasm Of Colon Ascending (HCC) 02/28/2023 Malignant Neoplasm Of Colon Ascending (HCC) 03/01/2023 Weakness General 02/20/2023 Abnormal Posture [R29.3 (ICD-10-CM)] 02/20/2023 Decline Functional Status [R53.81 (ICD-10-CM)] 02/20/2023 Spinal Stenosis Lumbar Region Without Neurogenic Claudication 02/20/2023 Radiculopathy Lumbar 02/20/2023 Debility 02/20/2023 Pain Low Back Chronic 02/20/2023 Malignant Neoplasm Of Colon Ascending (HCC) 03/15/2023 Morbid Obesity (HCC) 03/15/2023 Apnea Sleep Obstructive 03/15/2023 Chronic Kidney Disease (CKD), Stage 3a Glomerular Filtration Rate (GFR) 45 To 59 (HCC) 03/15/2023 Hypertension And Chronic Kidney Disease Stage 3 (HCC) 03/15/2023 Diabetes Mellitus Type 2 (HCC) 03/15/2023 Malignant Neoplasm Of Colon Ascending (HCC) 03/28/2023 Malignant Neoplasm Of Colon Ascending (HCC) 04/06/2023 Tubular Adenoma Colon Personal History 04/06/2023 Anemia Iron Deficiency 04/06/2023 Apnea Sleep Obstructive 04/06/2023 Morbid Obesity Body Mass Index 45.0-49.9 Adult (HCC) 04/06/2023 Diabetes Mellitus Type 2 Peripheral Neuropathy (HCC) 04/06/2023 Chronic Kidney Disease (CKD), Stage 3a Glomerular Filtration Rate (GFR) 45 To 59 (HCC) 04/06/2023 Hypertension And Chronic Kidney Disease Stage 3 (HCC) 04/06/2023 Tachycardia Atrial Paroxysmal (HCC) 04/06/2023 Depression Major Recurrent (HCC) 04/06/2023 Debility 04/06/2023 Stenosis Spinal Lumbar With Neurogenic Claudication 04/06/2023 Hypothyroidism 04/06/2023 Chronic Idiopathic Constipation 04/06/2023 Weakness General 03/08/2023 Debility 03/08/2023 Pain Low Back Chronic 03/08/2023 Decline Functional Status 03/08/2023 Pain Back Lumbar 03/08/2023 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 Depression Major Recurrent (HCC) 05/02/2023 Tachycardia Atrial Paroxysmal (HCC) 05/02/2023 Morbid Obesity Body Mass Index 45.0-49.9 Adult (HCC) 05/02/2023 Diabetes Mellitus Type 2 Peripheral Neuropathy (HCC) 05/02/2023 Hypertension And Chronic Kidney Disease Stage 3 (HCC) 05/02/2023 Weakness General 05/02/2023 Anemia Iron Deficiency 05/02/2023 Apnea Sleep Obstructive 05/02/2023 Chronic Kidney Disease (CKD), Stage 3a Glomerular Filtration Rate (GFR) 45 To 59 (HCC) 05/02/2023 Decline Functional Status 05/02/2023 Hypothyroidism 05/02/2023 Radiculopathy Lumbar 05/02/2023 Stenosis Spinal Lumbar With Neurogenic Claudication 05/02/2023 Stones Uric Acid 05/02/2023 Nodule Prostate 05/02/2023 Other Hyperlipidemia 05/02/2023 Diarrhea 05/02/2023 Cough Acute 05/02/2023 Edema 05/02/2023 Malignant Neoplasm Of Colon Ascending (HCC) 05/09/2023 Diabetes Mellitus Type 2 Peripheral Neuropathy (HCC) 05/09/2023 Apnea Sleep Obstructive 05/09/2023 Chronic Kidney Disease (CKD), Stage 3a Glomerular Filtration Rate (GFR) 45 To 59 (HCC) 05/09/2023 Hypothyroidism 05/09/2023 Depression Major Recurrent (HCC) 05/09/2023 Decline Functional Status 05/09/2023 Morbid Obesity Body Mass Index 45.0-49.9 Adult (HCC) 05/09/2023 Malignant Neoplasm Of Colon Ascending (HCC) 05/12/2023 Malignant Neoplasm Of Colon Ascending (HCC) 05/11/2023 Repeated Falls 05/11/2023 Morbid Severe Obesity Due To Excess Calories (HCC) 05/11/2023 Stenosis Spinal Lumbar With Neurogenic Claudication 05/11/2023 Weakness General 05/11/2023 Debility 05/11/2023 Malignant Neoplasm Of Colon (HCC) 05/11/2023 Malignant Neoplasm Of Cecum (HCC) 05/18/2023 Malignant Neoplasm Of Colon (HCC) 05/18/2023 Malignant Neoplasm Of Colon Ascending (HCC) 05/18/2023 Depression Major Recurrent (HCC) 05/18/2023 Tachycardia Atrial Paroxysmal (HCC) 05/18/2023 Morbid Obesity Body Mass Index 50.0-59.9 Adult (HCC) 05/18/2023 Diabetes Mellitus Type 2 Peripheral Neuropathy (HCC) 05/18/2023 Weakness General 05/18/2023 Anemia Iron Deficiency 05/18/2023 Chronic Kidney Disease (CKD), Stage 3a Glomerular Filtration Rate (GFR) 45 To 59 (HCC) 05/18/2023 Decline Functional Status 05/18/2023 Hypothyroidism 05/18/2023 Apnea Sleep Obstructive 05/18/2023 Debility 05/18/2023 Stones Uric Acid 05/18/2023 Stenosis Spinal Lumbar With Neurogenic Claudication 05/18/2023 Stone Kidney And Ureteral 05/18/2023 Nodule Prostate 05/18/2023 Other Hyperlipidemia 05/18/2023 Edema 05/18/2023 COVID-19 Infection 05/18/2023 Colectomy Partial Status Post 05/31/2023 Malignant Neoplasm Of Cecum (HCC) 05/31/2023 Tachycardia Atrial Paroxysmal (HCC) 05/31/2023 Hypertensive Chronic Kidney Disease (CKD) Stage 3a Glomerular Filtration Rate (GFR) 45 To 59 (HCC) 05/31/2023 Edema Leg Chronic 05/31/2023 Rash Leg 05/31/2023 Diabetes Mellitus Type 2 Peripheral Neuropathy (HCC) 05/31/2023 Hyperlipidemia 05/31/2023 Hypothyroidism 05/31/2023 Anemia 05/31/2023 Depression Major Recurrent (HCC) 05/31/2023 Stenosis Spinal Lumbar With Neurogenic Claudication 05/31/2023 Weakness General 05/31/2023 Apnea Sleep Obstructive 05/31/2023 Nephrolithiasis 05/31/2023 Stones Uric Acid 05/31/2023 Benign Prostatic Hyperplasia Without Obstruction 05/31/2023 Osseous Stenosis Of Neural Canal Lumbar Region 06/03/2023 Anemia Iron Deficiency 06/15/2023 Malignant Neoplasm Of Colon Ascending (HCC) 06/15/2023 Hypertensive Chronic Kidney Disease (CKD) Stage 3a Glomerular Filtration Rate (GFR) 45 To 59 (HCC) 06/15/2023 Diabetes Mellitus Type 2 Peripheral Neuropathy (HCC) 06/15/2023 Stenosis Spinal Lumbar With Neurogenic Claudication 06/15/2023 Weakness General 06/15/2023 Malignant Neoplasm Of Colon Ascending (HCC) 06/20/2023 Malignant Neoplasm Of Sigmoid Colon (HCC) 06/20/2023 Nodules Pulmonary Multiple 06/20/2023 Stenosis Spinal Lumbar With Neurogenic Claudication 06/20/2023 Diabetes Mellitus Type 2 Peripheral Neuropathy (HCC) 06/20/2023 Hypertensive Chronic Kidney Disease (CKD) Stage 3a Glomerular Filtration Rate (GFR) 45 To 59 (HCC) 06/20/2023 Malignant Neoplasm Of Colon Ascending (HCC) 06/21/2023 Malignant Neoplasm Of Sigmoid Colon (HCC) 06/21/2023 Colectomy Partial Status Post 06/28/2023 Malignant Neoplasm Of Cecum (HCC) 06/28/2023 Malignant Neoplasm Of Colon (HCC) 06/28/2023 Tachycardia Atrial Paroxysmal (HCC) 06/28/2023 Hypertensive Chronic Kidney Disease (CKD) Stage 3a Glomerular Filtration Rate (GFR) 45 To 59 (HCC) 06/28/2023 Edema Leg Chronic 06/28/2023 Diabetes Mellitus Type 2 Peripheral Neuropathy (HCC) 06/28/2023 Stenosis Spinal Lumbar With Neurogenic Claudication 06/28/2023 Weakness General 06/28/2023 Apnea Sleep Obstructive 06/28/2023 Anemia Iron Deficiency 06/28/2023 Wound Foot Open Initial Right 06/28/2023 Nephrolithiasis Urate 06/28/2023 Depressive Disorder 06/28/2023 Gastroesophageal Reflux Disease 06/28/2023 Colectomy Partial Status Post 07/05/2023 Malignant Neoplasm Of Cecum (HCC) 07/05/2023 Malignant Neoplasm Of Colon (HCC) 07/05/2023 Tachycardia Atrial Paroxysmal (HCC) 07/05/2023 Hypertensive Chronic Kidney Disease (CKD) Stage 3a Glomerular Filtration Rate (GFR) 45 To 59 (HCC) 07/05/2023 Edema Leg Chronic 07/05/2023 Diabetes Mellitus Type 2 Peripheral Neuropathy (HCC) 07/05/2023 Wound Foot Open Initial Right 07/05/2023 Stenosis Spinal Lumbar With Neurogenic Claudication 07/05/2023 Weakness General 07/05/2023 Anemia Iron Deficiency 07/05/2023 Apnea Sleep Obstructive 07/05/2023 Nephrolithiasis Urate 07/05/2023 Gastroesophageal Reflux Disease 07/05/2023 Depressive Disorder 07/05/2023 Osseous Stenosis Of Neural Canal Lumbar Region 08/08/2023 Nephrolithiasis 03/12/2019 Stone Kidney And Ureteral 03/12/2019 Stone Kidney And Ureteral 04/04/2019 Pain Back Lumbar 10/07/2022 Hypertension And Chronic Kidney Disease Stage 3 (HCC) 10/07/2022 Apnea Sleep Obstructive 10/07/2022 Morbid Obesity (HCC) 10/07/2022 Radiculopathy Lumbar 10/07/2022 Other Hyperlipidemia 10/07/2022 Hypothyroidism 10/07/2022 Hypertension Essential Primary 10/07/2022 Depression Major Recurrent (HCC) 10/07/2022 Diabetes Mellitus Type 2 Peripheral Neuropathy (HCC) 10/07/2022 Decline Functional Status 10/07/2022 Chronic Idiopathic Constipation 10/07/2022 Anemia Iron Deficiency 10/07/2022 Tachycardia Atrial Paroxysmal (HCC) 10/07/2022 Anemia Iron Deficiency 10/22/2022 Apnea Sleep Obstructive 10/22/2022 Chronic Idiopathic Constipation 10/22/2022 Decline Functional Status 10/22/2022 Diabetes Mellitus Type 2 Peripheral Neuropathy (HCC) 10/22/2022 Hypertension And Chronic Kidney Disease Stage 3 (HCC) 10/22/2022 Hypothyroidism 10/22/2022 Morbid Obesity (HCC) 10/22/2022 Pain Back Lumbar 10/22/2022 Radiculopathy Lumbar 10/22/2022 Spinal Stenosis Lumbar Region Without Neurogenic Claudication 10/22/2022 Weakness General 02/20/2023 Stenosis Spinal Lumbar With Neurogenic Claudication 03/08/2023 Diabetes Mellitus Type 2 (HCC) 03/08/2023 Pain Back Lumbar 03/08/2023 Radiculopathy Lumbar 03/08/2023 Spinal Stenosis Lumbar Region Without Neurogenic Claudication 03/08/2023 Bacteremia 03/08/2023 Malignant Neoplasm Of Cecum (HCC) 03/08/2023 Hypomagnesemia 03/08/2023 Malignant Neoplasm Of Colon (HCC) 05/11/2023 Malignant Neoplasm Of Colon Ascending (HCC) 05/11/2023 Chronic Kidney Disease (CKD), Stage 3a Glomerular Filtration Rate (GFR) 45 To 59 (HCC) 05/11/2023 Morbid Obesity Body Mass Index 50.0-59.9 Adult (HCC) 05/11/2023 Hypertension And Chronic Kidney Disease Stage 3 (HCC) 05/11/2023 Apnea Sleep Obstructive 05/11/2023 Depression Major Recurrent (HCC) 05/11/2023 Hypothyroidism 05/11/2023 Other Hyperlipidemia 05/11/2023 Stenosis Spinal Lumbar With Neurogenic Claudication 05/11/2023 Debility 05/11/2023 Tachycardia Atrial Paroxysmal (HCC) 05/11/2023 Diabetes Mellitus Type 2 Peripheral Neuropathy (HCC) 05/11/2023 Repeated Falls 05/11/2023 Care Teams [employer] Relationship Specialty Start Date End Date Elsewhere, Pcp PCP - General Internal Medicine 07/08/23
--- OUTSIDE RECORDS SUMMARY | 2023-08-11 11:11 | XMS_ITS | Encounter Summary ---
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 [address] [place] [address] [facility] Referral ID Status Reason Start Date Expiration Date Visits Re quested Visits Authorized [id number] Closed 06/03/2023 06/02/2024 1 1 Encounter Details Date Type Department Care Team (Latest Contact Info) Description 08/08/2023 1:06 PM CDT - 08/08/2023 11:59 PM CDT Hospital Encounter Department of Radiology, [facility], in [place], [place] [address] [place] [address] Mario Alberto Navarro P.A.-C., M.S. [address] [place] [phone] Wilner Casas M.D. 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 Discharge Disposition: Home or Self Care Social History Tobacco Use Types Packs/Day Years Used Date Smoking Tobacco: Former Cigarettes 2 18 0 09/16/1966 - 06/30/1984 Passive Smoke Exposure: Past Smokeless Tobacco: Never Tobacco Cessation:Counseling Given: Not Answered Alcohol Use Standard Drinks/Week Comments Not Currently 0 (1 standard drink = 0.6 oz pur e alcohol) rarely, one or two a year [facility] Utilities Answer Date Recorded In the past 12 months has e [employer], gas, oil, or water [employer] threatened to shut off services in your [...] How often do you attend chur or confucianist services? More than 4 times per year 12/31/2021 Do you belong to any clubs o r organizations such as cheondoism groups, unions, fraternal or athletic groups, or [...] and heating? Not hard at all 02/11/2023 [facility] [place] of Occupat ional Health - Occupational Stress [...] your living situation today? I have a [facility] place to live 05/12/2023 Education Answer Date Recorded What is the highest level of school you have completed or the highest degree you have received? Bachelor's degree (e.g., BA, AB, BS) 09/20/2018 Sex and Gender Information Value Date Recorded Sex Assigned at Male 06/14/2018 8:36 PM OPTICAL TECHNICIAN Gender Identity Male 10/11/2022 10:17 PM CDT Sexual Orientation Choose not to disclose 2019 1:31 PM OPTICAL TECHNICIAN documented as of this encounter Last Filed Vital Signs Vital Sign Reading Time Taken Comments Blood Pressure 116/49 08/08/2023 2:16 PM CDT Pulse 93 08/08/2023 2:16 PM CDT Temperature - - Respiratory Rate - - Oxygen Saturation 96% 08/08/2023 2:16 PM CDT Inhaled Oxygen Concentration - - Weight - - Height - - Body Mass Index - - documented in this encounter Medications at Time of Discharge Medication Sig Dispensed Refills Start Date End Date acetaminophen (TYLENOL) 500 mg tablet Take 2 tablets (1,000 mg total) by mouth 4 (four) times a day. 2022 allopurinol (ZYLOPRIM) 300 mg tablet Take 300 mg by mouth daily. calcium carbonate (TUMS) 500 mg (200 mg calcium) chewable tablet Chew 1 tablet (200 mg of calcium total) daily as needed for heartburn or indigestion. 04/27/2023 dilTIAZem CD (CARDIZEM CD/CARTIA XT) 240 mg 24 hr capsule Take 240 mg by mouth 2 (two) times a day. Started 12/29/2022 DME Bi-level PAPIndications:Obstru ctive Sleep Apnea Adult DME Order 1 each 04/19/2023 DULoxetine (CYMBALTA) [address] capsule Take 1 capsule (30 mg total) by mouth 2 (two) times a day. 60 capsule 2022 2023 emollient cream, VANICREAM, Apply 1 Application topically 2 (two) times a day as needed. Apply to right heel. ferrous sulfate 325 mg (65 mg iron) tablet Take 1 tablet (65 mg of iron total) by mouth daily. 90 tablet 06/20/2023 furosemide (LASIX) 20 mg tablet Take 2 tablets (40 mg total) by mouth 2 (two) times a day. 06/15/2023 glucosamine HCl/chondroitin scanlon (GLUCOSAMINE-CHONDROI TIN ORAL) Take 3 tablets by mouth daily. 400 mg 08/26/2016 insulin aspart U-100 (NovoLOG FlexPen) 100 unit/mL [...] 399: Call service writing Insulin orders 04/27/2023 insulin glargine 100 unit/mL (3 mL) injection Inject 32 Units under the skin at bedtime. Pharmacy select brand per patient insurance/preference. 06/15/2023 Lactobacillus rhamnosus GG (CULTURELLE) 10-15 billion cell capsule Take 1 capsule by mouth 2 (two) times a day. 04/27/2023 levothyroxine (SYNTHROID, LEVOTHROID) 100 mcg tablet Take 100 mcg by mouth every morning before breakfast. With 125 mcg for total dose 225 mcg 05/27/2014 levothyroxine (SYNTHROID, LEVOTHROID) 125 mcg tablet Take 125 mcg by mouth every morning before breakfast. With 100 mcg for total dose 225 mcg 05/27/2014 lidocaine (LIDODERM) 5 % adhesive patch,medicated Place 1 patch on the skin daily. Apply to lower back. losartan (COZAAR) 100 mg tablet Take 0.5 tablets (50 mg total) by mouth daily. 05/02/2023 magnesium oxide (MAG-OX) 400 mg (241.3 mg magnesium) tablet Take 1 tablet (400 mg total) by mouth 3 (three) times a day before meals. Low magnesium 04/27/2023 menthol 10 % cream Apply 1 Application topically as needed. metFORMIN (GLUCOPHAGE) 1,000 mg tablet Take 1 tablet (1,000 mg total) by mouth 2 (two) times a day with meals. 04/27/2023 nystatin (NYSTOP) 100,000 unit/gram powder Apply 1 Application topically 3 (three) times a day as needed (rash/skin irritation). Apply to skin folds for yeast infection. 15 g 04/27/2023 pantoprazole (PROTONIX) 40 mg EC tablet Take 40 mg by mouth every morning before breakfast. polyethylene glycol (MIRALAX) 17 gram/dose oral powder Take 17 g by mouth daily as needed for constipation. Dissolve each 17 g dose in 240 mL (8 ounces) of beverage. pravastatin (PRAVACHOL) 80 mg tablet Take 1 tablet by mouth at bedtime. 11/24/2015 pregabalin (LYRICA) 300 mg capsule Take 1 capsule (300 mg total) by mouth 2 (two) times a day. 60 capsule 06/02/2023 07/04/2024 psyllium, with aspartame, (METAMUCIL) 3.4 gram packet Take 1 packet by mouth daily as needed (Multiple loose stools or diarrhea.). Hold for 2 weeks after surgery. 05/16/2023 sennosides-docusate sodium (SENOKOT-S) 8.6-50 mg per tablet Take 2 tablets by mouth 2 (two) times a day as needed for constipation. Hold for 2 weeks after surgery. Do not take if having diarrhea. 05/16/2023 sodium bicarbonate 650 mg tablet Take 2 tablets (1,300 mg total) by mouth 3 (three) times a day. 03/07/2023 spironolactone (ALDACTONE) 25 mg tablet Take 1 tablet (25 mg total) by mouth daily. 04/27/2023 tamsulosin (FLOMAX) 0.4 mg 24 hr capsule Take 2 capsules by mouth at bedtime. 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 NR Narrative [id number] - 08/08/2023 2:43 PM CDT EXAM: FL [...] felt to best approximate that of an [id number]. Prior right L4 injection did not provide [...] epidural steroid injection. NR Mario Alberto Navarro P.A.-C. M.S. 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 documented in this encounter Administered Medications Inactive Administered Medications - up to 3 most recent administrations Medication Order MAR Action Action Date Dose Rate Site dexAMETHasone (PF) injection (DECADRON) As needed, Starting on Tue08/08/23 at 1407, Intra-Op Given 08/08/2023 2:07 PM CDT 10 mg iohexoL 300 mg iodine/mL solution (OMNIPAQUE) As needed, Starting on Tue08/08/23 at 1405, Intra-Op Given 08/08/2023 2:05 PM CDT 1 mL lidocaine (PF) 20 mg/mL (2 %) injection (XYLOCAINE) As needed, Starting on Tue08/08/23 at 1406, Intra-Op Given 08/08/2023 2:06 PM CDT 1 mL lidocaine 10 mg/mL (1 %) injection (XYLOCAINE) As needed, Starting on Tue08/08/23 at 1400, Intra-Op Given 08/08/2023 2:00 PM CDT 3 mL documented in this encounter Additional Health Concerns Assessment Noted Time PHQ-9 Depression Total Score: 7 09/04/19 16 9:47 AM CDT documented as of this encounter Care Teams Vulnerability Assessment Analyst Relationship Specialty Start Date End Date Elsewhere, Pcp PCP - General Internal Medicine 07/08/23 documented as of this encounter
--- OUTSIDE RECORDS SUMMARY | 2023-08-11 11:11 | XMS_ITS | Encounter Summary ---
Author Name Unknown Organization [facility] Address [address] [place] [address] Care Team Providers Care Fence Making Machine Operator Name Role Phone Elsewhere, Pcp Primary Care Provider Unavailabl e Encounter Details Date Type Department Care Team (Late st Contact Info) Description 06/29/2023 Clinical Communication Department of Oncology in [place], [place] [address] [place] [phone] Zan Rodriguez P.A.-C., M.S. [address] [place] [phone] Social History Tobacco Use Types Packs/Day Years Used Date Smoking Tobacco: Former Cigarettes 2 18 0 09/16/1966 - 06/30/1984 Passive Smoke Exposure: Past Smokeless Tobacco: Never Alcohol Use Standard Drinks/Week Comments Not Currently 0 (1 standard drink = 0.6 oz pur e alcohol) rarely, one or two a year [facility] Utilities Answer Date Recorded In the past 12 months has e electric, gas, oil, or water company threatened to shut off services in your [...] How often do you attend chur or sabianism services? More than 4 times per year 12/31/2021 Do you belong to any clubs o r organizations such as quaker groups, unions, fraternal or athletic groups, or [...] and heating? Not hard at all 02/11/2023 [facility] of Occupat ional Health - Occupational [...] your living situation today? I have a [facility] place to live 05/12/2023 Education Answer Date Recorded What is the highest level of school you have completed or the highest degree you have received? 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 - 07/07/2023 10:14 AM CDT Thank you! If patient has decided to have all surveillance exams including flex sig to be done locally, we can go ahead to cancel all appointments with us. documented in this encounter Plan of Treatment Not on file documented as of this encounter Visit Diagnoses Not on filedocumented in this encounter Additional Health Concerns Assessment Noted Time PHQ-9 Depression Total Score: 7 09/04/19 16 9:47 AM CDT documented as of this encounter Care Teams Fence Making Machine Operator Relationship Specialty Start Date End Date Elsewhere, Pcp PCP - General Internal Medicine 07/08/23 documented as of this encounter
--- OUTSIDE RECORDS SUMMARY | 2023-08-11 11:11 | XMS_ITS | Encounter Summary ---
Author Name Unknown Organization [facility] Address [address] [place] [address] Care Team Providers Care Glass Bulb Silverer Name Role Phone Eli Rondon APRN, C.N.P., R.N. Primary Care Provider Encounter Details Date Type Department Care Team (Late st Contact Info) Description 06/06/2023 Clinical Communication Senior Services in [place] [address] [place] [phone] John Lerner M.D. [address] [place] [phone] Social History Tobacco Use Types Packs/Day Years Used Date Smoking Tobacco: Former Cigarettes 2 18 0 09/16/1966 - 06/30/1984 Passive Smoke Exposure: Past Smokeless Tobacco: Never Alcohol Use Standard Drinks/Week Comments Not Currently 0 (1 standard drink = 0.6 oz pur e alcohol) rarely, one or two a year [facility] Utilities Answer Date Recorded In the past 12 months has [employer], gas, oil, or water [employer] threatened to shut off services in your [...] How often do you attend chur or scientology services? More than 4 times per year 12/31/2021 Do you belong to any clubs o r organizations such as mandaeism groups, unions, fraternal or athletic groups, or [...] and heating? Not hard at all 02/11/2023 [facility] [place] of Occupat ional Health - Occupational Stress [...] your living situation today? I have a [facility] place to live 05/12/2023 Education Answer Date Recorded What is the highest level of school you have completed or the highest degree you have received? Bachelor's degree (e.g., BA, AB, BS) 09/20/2018 Sex and Gender Information Value Date Recorded Sex Assigned at Male 06/14/2018 8:36 PM AVIATION NEUROPSYCHOLOGIST Gender Identity Male 10/11/2022 10:17 PM CDT Sexual Orientation Choose not to disclose 2019 1:31 PM AVIATION NEUROPSYCHOLOGIST documented as of this encounter Plan of Treatment Not on file documented as of this encounter Visit Diagnoses Not on filedocumented in this encounter Additional Health Concerns Assessment Noted Time PHQ-9 Depression Total Score: 7 09/04/19 16 9:47 AM CDT documented as of this encounter Care Teams Glass Bulb Silverer Relationship Specialty Start Date End Date Eli Rondon APRN, C.N.P., R.N. [address] [place] [phone] PCP - General Family Medicine 04/27/23 07/07/23 documented as of this encounter
--- OUTSIDE RECORDS SUMMARY | 2023-08-11 11:11 | XMS_ITS | Encounter Summary ---
Author Name Unknown Organization [facility] Address [address] [place] [id number] Care Team Providers Care Flash Ranging Crewmember Name Role Phone Eli Rondon APRN, C.N.P., R.N. Primary Care Provider Reason for Visit * Outpatient (Routine) - Closed Specialty Diagnoses / Procedures Referred By Michele douglas Referred To Contact Medical Oncology / Oncology Diagnoses Malignant Neoplasm Of Cecum (HCC) Malignant Neoplasm Of Colon (HCC) Malignant Neoplasm Of Colon Ascending (HCC) Bonny Clifton M.B., Lyle Zambrano [address] [place] [phone] [facility] Referral ID Status Reason Start Date Expiration Date Visits Re quested Visits Authorized [id number] Closed 05/30/2023 11/28/2024 1 1 Encounter Details Date Type Department Care Team (Late st Contact Info) Description 06/20/2023 3:00 PM FINISH MOLDER Telemedicine Department of Oncology in [place], [place] [address] [place] [address] [phone] Brenda Delgadillo M.D. [address] [place] [phone] Malignant Neoplasm Of Colon Ascending (HCC) (Primary Dx); Malignant Neoplasm Of Sigmoid Colon (HCC); Nodules Pulmonary Multiple; Stenosis Spinal Lumbar With Neurogenic Claudication; Diabetes Mellitus Type 2 Peripheral Neuropathy (HCC); Hypertensive Chronic Kidney Disease (CKD) Stage 3a Glomerular Filtration Rate (GFR) 45 To 59 (HCC) Social History Tobacco Use Types Packs/Day Years Used Date Smoking Tobacco: Former Cigarettes 2 18 0 09/16/1966 - 06/30/1984 Passive Smoke Exposure: Past Smokeless Tobacco: Never Alcohol Use Standard Drinks/Week Comments Not Currently 0 (1 standard drink = 0.6 oz pur e alcohol) rarely, one or two a year [facility] Utilities Answer Date Recorded In the past 12 months has e [employer], oil, or water [employer] threatened to shut off services in your [...] How often do you attend chur or mormon services? More than 4 times per year 12/31/2021 Do you belong to any clubs o r organizations such as anabaptist groups, unions, fraternal or athletic groups, or [...] and heating? Not hard at all 02/11/2023 [facility] - Occupational Stress [...] your living situation today? I have a [facility] to live 05/12/2023 Education Answer Date Recorded What is the highest level of school you have completed or the highest degree you have received? Bachelor's degree (e.g., BA, AB, BS) 09/20/2018 Sex and Gender Information Value Date Recorded Sex Assigned at Male 06/14/2018 8:36 PM FINISH MOLDER Gender Identity Male 10/11/2022 10:17 PM CDT Sexual Orientation Choose not to disclose 2019 1:31 PM FINISH MOLDER documented as of this encounter Consult Notes * Brenda Delgadillo M.D. - 06/20/2023 3:00 PM CST Medical Oncology Consult Note (video consultation) REASON FOR CONSULT Zoltan Olivera is a 72 y.o. male who presents for evaluation of colon cancer. PRIMARY ORINDA ONCOLOGIST Brenda Delgadillo M.D. REQUESTING PROVIDER Bonny Clifton M.B., Juan Manuel, Patrice. [address] [place] [phone] LOCAL ONCOLOGIST No care staff nurse icu resource team to display HISTORY OF PRESENT ILLNESS Zoltan Olivera is a 72 y.o. male with colon cancer who presents for evaluation. His oncological history is summarized as below. Oncology History Malignant Neoplasm Of Colon Ascending (HCC) 01/2023 Initial Diagnosis Malignant Neoplasm Of Colon Ascending (HCC) Over the last couple of years he has been noted to have anemia and was placed on Eliquis briefly with GI bleeding. He has had multiple blood transfusions as well as iron infusions. In February 07, colonoscopy identified multiple adenomatous colon polyps as well as an ascending colonic mass that was a denocarcinoma, and a descending colon pedunculated polyp that at resection was found to be adenocarcinoma. CEA 2.9. CT and PET scans showed no evidence of distant metastasis. 01/31/2023 Surgery and Procedures Zoltan underwent his first colonoscopy on 01/31/2023 at the age of 72. Colonoscopy was significant likely large, ulcerated, nonobstructive mass in the proximal ascending colon which was biopsied. Pathology demonstrated moderately differentiated adenocarcinoma with intact DNA mismatch repair. In addition, a 25 mm semi-pedunculated polyp was noted in the sigmoid colon which was resected. Pathology demonstrated moderately differentiated adenocarcinoma. There was insufficient sample for mismatch repair. In the cecum, a 3 mm polyp was noted and not resected. In the transverse colon, 9 3-8 mm sessile and semi pedunculated polyps were noted and resected (tubular adenomas). In the descending colon, 3 semi pedunculated 5-7 mm polyps were noted and resected (tubular adenomas). Two 3 mm sessile polyps were noted in the descending colon and were not resected. An upper endoscopy was also obtained which did not demonstrate any additional findings. Colon, biopsy ([id number]; 01/31/2023): A. Colon, proximal, ascending, mass, biopsy:Invasive moderately differentiated adenocarcinoma. pMMR B. Colon, transverse, polyps, polypectomy: Fragments of tubular adenomas, low- grade dysplasia. Inflammatory type polyp. C. Colon, descending, polyps, polypectomy: Fragments of tubular adenomas, low- grade dysplasia. D. Colon, sigmoid, polyp, polypectomy: Moderately differentiated adenocarcinoma, focus measures 6 x3 x 3 mm, superficially invasive, extending 1 mm into the submucosa, arising in background of pedunculated tubulovillous adenoma, completely excised. The invasive carcinoma component is 7 mm to the closest inked surgical resection margin. Lymphovascular invasion and perineural invasion are not identified. Tumor budding is low score (0-4). 05/12/2023 Surgery and Procedures LAPAROSCOPIC COLECTOMY RIGHT, ANASTOMOSIS. Colon, cecum, appendix, terminal ileum, right hemicolectomy: Invasive poorly differentiated adenocarcinoma, forming a 6.1 x 4.8 x 3.1 cm mass in the proximal ascending colon, arising in a tubular adenoma with high-grade dysplasia and extending to the serosa. The surgical resection margins are negative for tumor. Multiple (2 of 14) lymph nodes are positive for metastatic carcinoma. See synoptic report. Pathologic Staging (AJCC, 8th edition) TNM Descriptors: Not applicable pT Category: pT4a pN Category: pN1b pM Category: Not applicable 06/08/2023 Genetic Testing and Tumor Genotyping Patel CRC Panel RODO KRAS G13D APC x 2 VUS in MSH6 06/08/2023 Genetic Testing and Tumor Genotyping Germline genetic testing in 2023; Multi-Cancer + Colorectal Cancer (+preliminary evidence genes) panel through [facility]. 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 MEDICAL HISTORY Allergies, current medications and the following parts of history were reviewed. Past medical history Past Medical History: Diagnosis Date Anemia 2021 Arthritis Atrial Fibrillation Unspecified (HCC) May 2021 BenignProstatic Hyperplasia Localized 2015 Complication Anesthesia Initial 2003 Concussion Loss Of Consciousness Unspecified Duration Initial 1970 Depressive Disorder 2013 Dermatitis 2019 Diabetes Mellitus NOS Dysfunction Thyroid Headache Unspecified 2021 Hypertension NOS Hypothyroidism 1988 Irritable Bowel Syndrome Without Diarrhea 1975 Malignant Neoplasm Of Cecum (HCC) 04/24/2023 Malignant Neoplasm Of Colon Adenocarcinoma (HCC) January 2023 Other Injury Of Unspecified Body Region 2014 Pneumonia Polyp Colon January 2023 Renal Disease Stage 3 chronic kidney disease Sleep Apnea 2016 [facility] 1988 Past surgical history Past Surgical History: Procedure Laterality Date BACK SURGERY 1993 CYSTOURETHROSCOPY WITH PLACEMENT URETERAL STENT Right 03/12/2019 Procedure: CYSTOURETHROSCOPY WITH PLACEMENT URETERAL STENT; Surgeon: Ashkan Villanueva M.D.; Location:[facility] OR JOINT REPLACEMENT LAPAROSCOPIC COLECTOMY RIGHT WITH ANASTOMOSIS Right 05/12/2023 Procedure: LAPAROSCOPIC COLECTOMY RIGHT, ANASTOMOSIS.; Surgeon: Bonny Clifton M.B., BEstela MMarleny; [facility] OR LUMBAR SPINE SURGERY N/A 02/02/1994 >Partial hemilaminectomy, fifth lumbar right. Removal of extruded disk and ligament. OTHER SURGICAL HISTORY 2014, 2018 PERCUTANEOUS NEPHROLITHOTOMY ([facility]) Right 01/29/2015 Percutaneous nephrolithotomy ([facility]) RETROGRADE PYELOGRAM Right 03/12/2019 Procedure: Retrograde Pyelogram; Surgeon: Ashkan Villanueva M.D.; Location: [facility] OR TONSILLECTOMY 1958 URETEROSCOPY WITH LASER LITHOTRIPSY Right 04/04/2019 Procedure: URETEROSCOPY WITH LASER LITHOTRIPSY, proceed as indicated.; Surgeon: James Mina M.D., Pharm.D.; Location: [facility] OR Social history Social History Socioeconomic History Marital status: Spouse name: Not on file Number of children: Not on file Years of education: Not on file Highest education level: Bachelor's degree (e.g., BA, AB, BS) Occupational History Not on file Tobacco Use Smoking status: Former Packs/day: 2.00 Years: 18.00 Additional pack years: 0.00 Total pack years: 36.00 Types: Cigarettes Start date: 09/16/1966 Quit date: 06/30/1984 Years since quittin.9 Passive exposure: Past Smokeless tobacco: Never Vaping Use Vaping Use: never used Substance and Sexual Activity Alcohol use: Not Currently Comment: rarely, one or two a year Drug use: No Sexual activity: Not Currently Partners: Female control/protection: Abstinence, Rhythm, None Other Topics Concern Not on file Social History Narrative Not on file Social Determinants of Health Food Insecurity: No Food Insecurity (05/12/2023) Hunger Vital Sign Worried About Running Out of Food in the Last Year: Never true Ran Out of Food in the Last Year: Never true Transportation Needs: No Transportation Needs (05/12/2023) PRAPARE - Transportation Lack of Transportation (Medical): No Lack of Transportation (Non-Medical): No Recent Concern: Transportation Needs - Unmet Transportation Needs (04/22/2023) PRAPARE - Transportation Lack of Transportation (Medical): Yes Lack of Transportation (Non-Medical): No Physical Activity: Inactive (02/10/2023) Exercise Vital Sign Days of Exercise per Week: 0 days Minutes of Exercise per Session: 0 min Intimate Partner Violence: Not At Risk (05/12/2023) Humiliation, Afraid, Rape, and Kick questionnaire Fear of Current or Ex-Partner: No Emotionally Abused: No Physically Abused: No Sexually Abused: No Housing Stability: Low Risk (05/12/2023) Housing Stability Housing: Living Situation: I have a steady place to live Family history Family History Problem Relation Age of Onset Cancer Mother 60 - 69 Ocular cancer (OS) Kidney disease Mother Anesthesia problems Mother Cancer Sister 60 Adrenal gland cancer Obesity Sister Heart attack Father 55 Coronary artery disease Father Hypertension Father Obesity Father Coronary artery disease Brother Cancer Maternal Grandmother 60 - 69 Ocular cancer (OS) REVIEW OF SYSTEMS Constitutional: Positive for fatigue. - Negative for fever. Respiratory: - Negative for shortness of breath. Musculoskeletal: Positive for pain or stiffness in the joints, back pain and muscle pain/stiffness. Neurological: Positive for numbness or shooting pain in hands, arms, legs, or feet. PHYSICAL EXAM There were no vitals filed for this visit. Constitutional Appearance: Normal appearance. Neurological Mental Status: He is alert. LABORATORY DATA Reviewed. RADIOLOGICAL DATA Reviewed. ASSESSMENT / PLAN #1 Malignant Neoplasm Of Colon Ascending s/p right hemicolectomy 05/12/23 (pT4N1b, RODO, KRAS G13D) #2 alignant Neoplasm Of Sigmoid Colon s/p polypectomy 01/31/23 #3 Stenosis Spinal Lumbar With Neurogenic Claudication #4 Diabetes Mellitus Type 2 Peripheral Neuropathy (HCC) #5 Hypertensive Chronic Kidney Disease (CKD) Stage 3a Glomerular Filtration Rate (GFR) 45 To 59 (HCC) Patient is a 72 y.o., male with colon adenocarcinoma who presents for evaluation. He was diagnosed with colon cancer in the setting of having progressive anemia. The adenocarcinoma of the ascending colon is s/p right hemicolectomy on 05/12/23 which revealed pT4N1b disease. The adenocarcinoma of the sigmoid colon is s/p polypectomy on 01/31/23 without interval follow up. Currently, he continues to stay in a rehab facility as he has limited mobility from his chronic back issues. It appears to me that he has recovered well from surgery. We reviewed patient's history, symptoms, and test results in detail today. His blood counts, renal and liver function are stable. CEA was not elevated at the time of diagnosis. CT and PET scan in thefall of 2022 did not reveal clear evidence of distant metastasis. We discussed about the diagnosis,treatment, and prognosis of stage III colon cancer. On average, about 50% of patients have recurrent colorectal cancer after surgical resection of the primary cancer and recurrence tends to occur within the first 2-3 years after surgery. Adjuvant (= post-operative) chemotherapy was shown to lower the risk of recurrent cancer and by about 20-30% and is therefore recommended to all patients in good health. Two common chemotherapy regimens of similar efficacy are approved: 3 months of capecitabine plus oxaliplatin (CAPOX) versus 3-6 months of 5-FU plus oxaliplatin (FOLFOX). Common side effects of the CAPOX regimen include hand-foot syndrome, peripheral neuropathy, fatigue, fever, chills,low blood counts, increased risk of infections, nausea, vomiting, diarrhea, abnormal liver function, chest pain, etc. Common side effects of the FOLFOX regimen include mouth sores, peripheral neuropathy, fatigue, fever, chills, low blood counts, increased risk of infections, nausea, vomiting, diarrhea, etc. Serious adverse events including were reported but are rare. In patients older than 70 years of age, monotherapy with capecitabine or 5-FU may be as effective as the doublet regimens. In addition, regular clinic visit, blood tests and CT scans are required for monitoring of treatment-related sided effects and assessing treatment response. Given pre-existing peripheral neuropathy in his feet likely secondary from DM and limited performance status, I think it is reasonable to consider 6-month monotherapy with capecitabine or 5-FU. I would recommend obtaining flexible sigmoidoscopy to evaluate the sigmoid colon, CT chest/abdomen/pelvis(follow up on pulmonary nodules), and CEA before initiating therapy and/or surveillance protocols. Standard follow-up schedule for colorectal cancer as below was discussed with patient. Given this abdoul video consult, I am unable to assess his performance status reliably and candidacy for chemotherapy. If he is interested in pursuing chemotherapy, ideally, he should start treatment by the end of June (no later than 08/03, 12 weeks from date of surgery). I have placed a referral for him to establish care with [facility] [place] as requested. Patient and family understood and agreed with plan. All questions were answered to satisfaction. Stage III Year 1 Year 2 Year 3 Year 4 Year 5 Recommended 3 Mo. 6 Mo. 9 Mo. 12 Mo. 15 Mo. 18 Mo. 21 Mo. 24 Mo. 30 Mo. 36 Mo. 42 Mo. 48 Mo. 54 Mo.60 Mo. Physical Exam & History X X X X X X X CBC X X X X X X X Chemistry X X X X X X X CEA X X X X X X X X X X X X X X CT Scan (Chest/Abdomen/Pelvis) X X X X X X X Colonoscopy X X PATIENT EDUCATION Ready to learn, no apparent learning barriers were identified; learning preferences include listening. Explained diagnosis and treatment plan; patient expressed understanding of the content. ADMINISTRATIVE BILLING I spent 60 minutes face to face and non-face to face caring for the patient today. 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 [address] [place] [phone] PCP - General Family Medicine 04/27/23 07/07/23 documented as of this encounter
--- OUTSIDE RECORDS SUMMARY | 2023-08-11 11:11 | XMS_ITS | Encounter Summary ---
Author Name Unknown Organization [facility] Address [address] [place] [address] Care Team Providers Care Home Service Consultant Name Role Phone Eli Rondon APRN, C.NBri., R.N. Primary Care Provider Reason for Visit * Reason Comments Routine Custodial Visit Discharge vis it. Encounter Details Date Type Department Care Team (Latest Contact Info) Description 07/05/2023 10:00 AM CDT External [facility] [place] [address] [place] [phone] John Lerner M.D. [address] [place] [phone] Colectomy Partial Status Post (Primary Dx); Malignant [...] Nephrolithiasis Urate; Gastroesophageal Reflux Disease; Depressive Disorder Social History Tobacco Use Types Packs/Day Years Used Date Smoking Tobacco: Former Cigarettes 2 18 0 09/16/1966 - 06/30/1984 Passive Smoke Exposure: Past Smokeless Tobacco: Never Tobacco Cessation:Counseling Given: Not Answered Alcohol Use Standard Drinks/Week Comments Not Currently 0 (1 standard drink = 0.6 oz pur e alcohol) rarely, one or two a year [facility] Utilities Answer Date Recorded In the past 12 months has th e electric, gas, oil, or water company [...] How often do you attend chur or denominational services? More than 4 times per year 12/31/2021 Do you belong to any clubs o r organizations such as sabianist groups, unions, fraternal or athletic groups, or [...] and heating? Not hard at all 02/11/2023 [facility] [place] [facility] Occup[facility] - Occupational Stress [...] money to buy more. Never true 05/12/19 Within the past 12 months, t he [...] your living situation today? I have a [facility] place to live 05/12/2023 Education Answer Date Recorded What is the highest level of school you have completed or the highest degree you have received? 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 - 07/05/2023 10:00 AM CDT SUBJECTIVE CHIEF COMPLAINT / REASON FOR VISIT I am asked to see jessika Charlton [place], [place] for a Discharge visit. Visit Type: In Person Face-to- Face visit HISTORY OF PRESENT ILLNESS Obtained from Patient and Nursing and nursing staff. Date of admission: 05/16/2023 Date of discharge: 07/08/2023 Mr. 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 He was admitted to [facility] on 05/16/2023 for short-term rehabilitation. He was admitted to [facility] from 05/11/2023 through 05/16/2023 secondary to colon carcinoma. He underwent laparoscopic right colectomy with anastomosis on 05/12/2022. Apparently the latesha kimberly went uneventful. The pathology report revealed invasive poorly differentiated adenocarcinoma in the proximal ascending colon, arising in tubular adenoma with high-grade dysplasia and extending to the serosa. Multiple lymph nodes positive for metastatic carcinoma. He recovered well from the surg beck. He was recommended by PT/OT to be discharged to Transitional Care unit for short-term rehabilitation. During his half-way stay, he was tested positive for COVID-19 infection. However he was asymptomatic without upper respiratory infection symptoms. He followed half-way isolation protocol accordingly. He has history of type 2 diabetes. During the hospitalization at [facility], his Lantus dose was reduced. He was noted to have hyperglycemia on his half-way stay. We gradually adjustedthe Lantus dose accordingly. There was no hypoglycemia symptoms. He states that he was on 40 units of Lantus prior to his admission to the hospital. Currently he is on 34 units. On reviewing the blood glucose log, he still has hyperglycemia where the blood glucose ranging from 160 to mid 200s. There was no hypoglycemia symptoms. He has history of chronic bilateral leg lymphedema. He was complaining of increasing leg edema whenhe was in the half-way. He was taking spironolactone 25 mg once daily and furosemide 40 mg oncedaily. Then we increased the furosemide to 80 mg daily for 7 days. There leg edema were improving and currently he is back to his baseline. He was recommended to cut back the furosemide to 40 mg oncedaily. He was complaining of right heel fissure due to the dryness. He was using Eucerin lotion with little benefit. There was no evidence of cellulitis. He was treated with mupirocin 2% ointment 3 times daily for 10 days. He reports that the pain on his heel has gradually improving. Nursing staff monitor this closely on a daily basis. And there is no concern regarding cellulitis. MEDICATION Current Outpatient Medications Medication Sig acetaminophen (TYLENOL) 500 mg tablet Take 2 tablets (1,000 mg total) by mouth 4 (four) times a day. allopurinol (ZYLOPRIM) 300 mg tablet Take 300 mg by mouth daily. calcium carbonate (TUMS) 500 mg (200 mg calcium) chewable tablet Chew 1 tablet (200 mg of calcium total) daily as needed for heartburn or indigestion. dilTIAZem CD (CARDIZEM CD/CARTIA XT) 240 mg 24 hr capsule Take 240 mg by mouth 2 (two) times a day.Started 12/29/2022 DME Bi-level PAP DME Order DULoxetine (CYMBALTA) [address] capsule Take 1 capsule (30 mg total) by mouth 2 (two) times a day. emollient cream, VANICREAM, Apply 1 Application topically 2 (two) times a day as needed. Apply to right heel. ferrous sulfate 325 mg (65 mg iron) tablet Take 1 tablet (65 mg of iron total) by mouth daily. furosemide (LASIX) 20 mg tablet Take 2 tablets (40 mg total) by mouth 2 (two) times a day. glucosamine HCl/chondroitin scanlon (GLUCOSAMINE-CHONDROITIN ORAL) Take 3 tablets by mouth daily. 400 mg insulin aspart U-100 (NovoLOG FlexPen) 100 unit/mL (3 mL) injection Inject 0-7 Units under the skin3 (three) times a day. Insulin Scale: Mild Correction Scale 180 - 219: 2 units 220 - 259: 3 units 260 - 299: 4 units 300 - 339: 5 units 340 - 379: 6 units 380 - 399: 7 units Greater than 399: Call service writing Insulin orders insulin glargine 100 unit/mL (3 mL) injection Inject 32 Units under the skin at bedtime. Pharmacy select brand per patient insurance/preference. (Patient taking differently: Inject 34 Units under theskin at bedtime. Pharmacy select brand per patient insurance/preference.) Lactobacillus rhamnosus GG (CULTURELLE) 10-15 billion cell capsule Take 1 capsule by mouth 2 (two) times a day. levothyroxine (SYNTHROID, LEVOTHROID) 100 mcg tablet Take 100 mcg by mouth every morning before breakfast. With 125 mcg for total dose 225 mcg levothyroxine (SYNTHROID, LEVOTHROID) 125 mcg tablet Take 125 mcg by mouth every morning before breakfast. With 100 mcg for total dose 225 mcg lidocaine (LIDODERM) 5 % adhesive patch,medicated Place 1 patch on the skin daily. Apply to lower back. losartan (COZAAR) 100 mg tablet Take 0.5 tablets (50 mg total) by mouth daily. magnesium oxide (MAG-OX) 400 mg (241.3 mg magnesium) tablet Take 1 tablet (400 mg total) by mouth 3(three) times a day before meals. Low magnesium menthol 10 % cream Apply 1 Application topically as needed. metFORMIN (GLUCOPHAGE) 1,000 mg tablet Take 1 tablet (1,000 mg total) by mouth 2 (two) times a day with meals. nystatin (NYSTOP) 100,000 unit/gram powder Apply 1 Application topically 3 (three) times a day as needed (rash/skin irritation). Apply to skin folds for yeast infection. pantoprazole (PROTONIX) 40 mg EC tablet Take 40 mg by mouth every morning before breakfast. polyethylene glycol (MIRALAX) 17 gram/dose oral powder Take 17 g by mouth daily as needed for constipation. Dissolve each 17 g dose in 240 mL (8 ounces) of beverage. pravastatin (PRAVACHOL) 80 mg tablet Take 1 tablet by mouth at bedtime. pregabalin (LYRICA) 300 mg capsule Take 1 capsule (300 mg total) by mouth 2 (two) times a day. psyllium, with aspartame, (METAMUCIL) 3.4 gram packet Take 1 packet by mouth daily as needed (Multiple loose stools or diarrhea.). Hold for 2 weeks after surgery. sennosides-docusate sodium (SENOKOT-S) 8.6-50 mg per tablet Take 2 tablets by mouth 2 (two) times aday as needed for constipation. Hold for 2 weeks after surgery. Do not take if having diarrhea. sodium bicarbonate 650 mg tablet Take 2 tablets (1,300 mg total) by mouth 3 (three) times a day. spironolactone (ALDACTONE) 25 mg tablet Take 1 tablet (25 mg total) by mouth daily. tamsulosin (FLOMAX) 0.4 mg 24 hr capsule Take 2 capsules by mouth at bedtime. ALLERGIES/CONTRAINDICATION Allergies Allergen Reactions Terazosin Other (see comments) Amoxicillin-Pot Clavulanate Diarrhea Atenolol Other (see comments) pass out Lisinopril Cough Meperidine Nausea Only Blood-Group Specific Substance Other (see comments) Patient has a Non-Specific Antibody. Please draw 2 purple top tubes and 1 red top tube for all Typeand Screen and Type and Crossmatch Red Blood Cell product orders. Blood products may be delayed. Pthas no idea what this means Trospium Other (see comments) Clavulanic Acid Diarrhea I reviewed EPIC notes as well as any facility-provided information (if applicable), lab/test results, and images/imaging reports. The following portions of the patient's history were reviewed and updated as appropriate: allergies, current medications, medical history, social history, surgical history and problem list. CODE STATUS: Full Code REVIEW OF SYSTEMS Complete review of systems was performed, as allowable by patient's cognitive status, and incorporating collateral history if applicable. Relevant positives are noted elsewhere in this note, otherwise negative. OBJECTIVE VITAL SIGNS Vitals: 07/05/23 0905 BP: 140/68 Pulse: 79 Temp: 36.8 ??C Resp: 22 Weight: (!) 189 kg SpO2: (!) 87% PHYSICAL EXAMINATION Constitutional General: He is not in acute distress. Appearance: Normal appearance. HENT Head: Normocephalic. Right Ear: External ear normal. Left Ear: External ear normal. Nose: Nose normal. Mouth/Throat: Mouth: Mucous membranes are moist. Eyes Conjunctiva/sclera: Conjunctivae normal. Cardiovascular Rate and Rhythm: Normal rate and regular rhythm. Heart sounds: No murmur heard. Pulmonary Effort: Pulmonary effort is normal. Breath sounds: Normal breath sounds. No wheezing or rhonchi. Abdominal General: Bowel sounds are normal. Palpations: Abdomen is soft. Musculoskeletal Cervical back: Normal range of motion and neck supple. Right lower leg: Edema present. Left lower leg: Edema present. Comments: There is 3+ edema on bilateral lower extremities. Skin General: Skin is warm and dry. Capillary Refill: Capillary refill takes 3-5 seconds. Findings: Previously seen mild erythema on the calcaneus region has resolved. Previously seen fissure has healed. No active bleeding or purulent drainage. It is nontender to the touch. Neurological General: No focal deficit present. Mental Status: He is alert and oriented to person, place, and time. Psychiatric Mood and Affect: Mood normal. Behavior: Behavior normal. ASSESSMENT / PLAN 1. S/P right colectomy on 05/12/2023. 2. 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 He will pursue chemotherapy as planned and follow up with Oncology service. 3. Paroxysmal atrial tachycardia. 4. Hypertension with chronic kidney disease stage IIIA. 5. Chronic bilateral lower leg edema. He will continue his current medication regimen. 6. Type 2 diabetes with peripheral neuropathy and chronic kidney disease stage IIIA. He was advised to monitor his blood glucose at home regularly. He was recommended to increase the Lantus to 36 units. He may consider to increase the Lantus by 2 units every 3 days to maintain his blood glucose less than 150. He was recommended to stay on low carb diet. He should schedule a follow-up appointment with his PCP in 2 weeks after being discharged from the [facility] facility. 7. Right heel open wound. The fissure has healed. He was recommended to use Aquaphor to moisturize the right heel region to prevent recurrent of the fissures. We will arrange home health care nurse to monitor his wounds closely after he is discharged home. 8. Chronic low back pain secondary to lumbar spinal stenosis. 9. General weakness. He will continue his current regimen where he takes pregabalin 300 mg twice daily. Previously, he was on duloxetine, however he requested to discontinue the medication. He was gradually weaned off appropriately. There was no concern regarding withdrawal symptom. He follows up with orthopedic service at [facility] for managing his pain. We discussed regarding fall precaution. He will bedischarged home with order for home PT/OT to continue working on his strength imbalance. I feel this is appropriate to arrange it for him. 10. Obstructive sleep apnea. He will continue using his BiPAP. 11. Chronic anemia. He was recently initiated on ferrous sulfate. His repeat hemoglobin on 07/04/2023 was 8.7. He was recommended to recheck his hemoglobin in 30 days as outpatient setting when he follows up with his PCP. 12. History of urate nephrolithiasis. He will continue taking allopurinol and sodium bicarbonate. 14. Gastroesophageal reflux disease. He has no longer taking pantoprazole. He was advised to monitor the symptom closely and he may restart the medication if he has recurrent acid reflux. 15. Depressive disorder. He has no longer taking duloxetine. He reports that he does not feel depressed. Therefore he was weaned off gradually from the medication appropriately. He denies worsening of his mood. He was reminded to follow up with his PCP in 2 weeks for post half-way stay. FACE TO FACE DOCUMENTATION Patient has been prescribed home PT and OT at located within [facility]'s therapy department for continued balance, strengthening, and to develop a home exercise program. Zoltan is considered homebound because he requires a device for ambulation and leaving his home requires a considerable and taxing effort. All above plan of care are communicated with the nursing staff. documented in this encounter Plan of Treatment Not on file documented as of this encounter Visit Diagnoses Diagnosis Colectomy Partial Status Post- Primary Malignant Neoplasm Of Cecum (HCC) Malignant Neoplasm Of Colon (HCC) Tachycardia Atrial Paroxysmal (HCC) Hypertensive Chronic Kidney Disease (CKD) Stage 3a Glomerular Filtration Rate (GFR) 45 To 59 (HCC) Edema Leg Chronic Diabetes Mellitus Type 2 Peripheral Neuropathy (HCC) Wound Foot Open Initial Right Stenosis Spinal Lumbar With Neurogenic Claudication Weakness General Anemia Iron Deficiency Apnea Sleep Obstructive Nephrolithiasis Urate Gastroesophageal Reflux Disease Depressive Disorder documented in this encounter Additional Health Concerns Assessment Noted Time PHQ-9 Depression Total Score: 7 09/04/19 16 9:47 AM CDT documented as of this encounter Care Teams Home Service Consultant Relationship Specialty Start Date End Date Eli Rondon APRN, C.N.P., R.N. [address] [place] [phone] PCP - General Family Medicine 04/27/23 07/07/23 documented as of this encounter
--- OUTSIDE RECORDS SUMMARY | 2023-08-11 11:11 | XMS_ITS | Encounter Summary ---
Author Name Unknown Organization [facility] Address [address] [place] [address] Care Team Providers Care Digester Name Role Phone Eli Rondon APRN, C.N.P., R.N. Primary Care Provider Encounter Details Date Type Department Care Team (Late st Contact Info) Description 06/15/2023 9:30 AM STARCHMAKER External Outreach [facility] [place] [phone] Eli Rondon APRN, C.N.P., R.N. [address] [place] [phone] Anemia Iron Deficiency (Primary Dx); Malignant Neoplasm Of Colon Ascending (HCC); Hypertensive Chronic Kidney Disease (CKD) Stage 3a Glomerular Filtration Rate (GFR) 45 To 59 (HCC); Diabetes Mellitus Type 2 Peripheral Neuropathy (HCC); Stenosis Spinal Lumbar With Neurogenic Claudication; Weakness General Social History Tobacco Use Types Packs/Day Years Used Date Smoking Tobacco: Former Cigarettes 2 18 0 09/16/1966 - 06/30/1984 Passive Smoke Exposure: Past Smokeless Tobacco: Never Tobacco Cessation:Counseling Given: Not Answered Alcohol Use Standard Drinks/Week Comments Not Currently 0 (1 standard drink = 0.6 oz pur e alcohol) rarely, one or two a year [facility] Utilities Answer Date Recorded In the past 12 months has th e [employer], gas, oil, or water [employer] threatened to shut off services in [...] often do you attend chur ch or scientologist services? More than 4 times per year [...] and heating? Not hard at all 02/11/2023 [place] [facility] - Occupational Stress [...] your living situation today? I have a [facility] place to live 05/12/2023 Education Answer Date Recorded What is the highest level of school you have completed or the highest degree you have received? Bachelor's degree (e.g., BA, AB, BS) 09/20/2018 Sex and Gender Information Value Date Recorded Sex Assigned at Male 06/14/2018 8:36 PM STARCHMAKER Gender Identity Male 10/11/2022 10:17 PM CDT Sexual Orientation Choose not to disclose 2019 1:31 PM STARCHMAKER documented as of this encounter Last Filed Vital Signs Vital Sign Reading Time Taken Comments Blood Pressure 146/73 06/15/2023 7:22 AM STARCHMAKER Pulse 80 06/15/2023 7:22 AM STARCHMAKER Temperature 36.6 ??C (97.9 ??F) 06/15/2023 7:22 AM CS T Respiratory Rate 18 06/15/2023 7:22 AM STARCHMAKER Oxygen Saturation 98% 06/15/2023 7:22 AM STARCHMAKER Inhaled Oxygen Concentration - - Weight 182 kg (402 lb) 06/15/2023 7:22 AM STARCHMAKER Height - - Body Mass Index 53.28 05/11/2023 2:15 PM STARCHMAKER documented in this encounter Progress Notes * Eli Rondon, BETHANY, C.N.P., R.N. - 06/15/2023 9:30 AM CST CHIEF COMPLAINT / REASON FOR VISIT The resident is being seen at [place], [place] for Follow up Visit Visit Type: In Person Face-to- Face visit SUBJECTIVE HISTORY OF PRESENT ILLNESS Obtained from Patient, Nursing, and SBAR: This resident was recently hospitalized at: [facility] Date of hospitalization: Admission Date: 05/11/2023 Discharge Date: 05/16/23 Reason for hospitalization: Malignant Neoplasm Of Colon He had a right laparoscopic colectomy on 05/12/2023 due to colon cancer. Surgical pathology is pending. He should follow-up within 1 month with Oncology. He was previously admitted to [facility] in [place] and returned back for further rehab. Did have positive COVID test prior to discharge from the hospital and is asymptomatic, he is no longer on precautions Patient had prolonged hospital from 03/08/23 through 04/26/2023 for weakness and inability to stand. See previous note by this provider for more detailed records. Patient does have follow up with Orthopedics on 06/03/2023 to further explore back surgery options. He was seen last week by Dr. Lerner, his furosemide was increased to 40 mg twice daily, triamcinolone cream was prescribed twice a day for rash on his legs and his insulin glargine was increased to 30units at bedtime. Patient seen today. He is doing well. Did discuss that they did find lymph node involvement relatedto his cancer. He has follow up with Oncology on 06/20/2023 to talk about further treatment optionsbut it sounds like he may be starting chemotherapy. His discharge plans from the snf are still up in the air, he is walking with a walker. He needs further assistance with getting in and outof a car and needs to be more steady going up and downstairs. His back pain is well controlled at this time currently rating it a 2. He has not used any hydromorphone. He is having regular bowel movements that range from formed to loose. He is not having any dizziness or lightheadedness. He has notseeing any blood in his urine or stool. I personally reviewed the most recent following items: clinical notes, lab results, imaging reports The following medical problems were actively reviewed (including updating overview sections as necessary) and addressed as part of today's visit: Diagnosis Overview 1. Hypertensive Chronic Kidney Disease (CKD) Stage 3a Glomerular Filtration Rate (GFR) 45 To 59 (HCC) 2. Diabetes Mellitus Type 2 Peripheral Neuropathy (HCC) Diabetes back to the mid Initially on orals, then oral and insulin Known decreased feeling at the feet A1c 03/10 6.8 (though anemia) 3. Anemia Iron Deficiency - Primary 10/08 1 unit RBC, 2 Venofer infusion 200 mg 02/07 2 unit RBC 03/10 1 unit RBC 04/09 1 unit RBC 03/19/2023-200 mg Venofer 03/21/2023-200 mg Venofer 03/25/2023-400 mg Venofer 4. Weakness General 5. Stenosis Spinal Lumbar With Neurogenic Claudication 02/20/23 - MR Lumbar spine showed large [...] Failed Gabapentin in 12/2022. Switched to Lyrica. 6. Malignant Neoplasm Of Colon Ascending (HCC) 01/31/23 - colonoscopy: large, ulcerated, nonobstructive mass in the proximal ascending colon whichwas biopsied. Pathology demonstrated moderately differentiated adenocarcinoma with intact DNA mismatch repair. In addition, a 25 mm semi-pedunculated polyp was noted in the sigmoid colon which was resected. Pathology demonstrated moderately differentiated adenocarcinoma. Colonoscopy 01/2023 colon cancer, multiple polyps, repeat in 1 year after surgery CODE STATUS: FULL CODE REVIEW OF SYSTEMS Complete review of systems was performed, as allowable by patient's cognitive status, and incorporating collateral history if applicable. Relevant positives are noted elsewhere in this note, otherwise negative. OBJECTIVE Vital signs provided by facility: BP 146/73 Pulse 80 Temp 36.6 ??C Resp 18 Wt (!) 182 kg SpO2 98% BMI 53.28 kg/m?? PHYSICAL EXAM Constitutional General: He is not in acute distress. Appearance: Normal appearance. He is not ill-appearing. HENT Nose: Nose normal. No congestion or rhinorrhea. Eyes Conjunctiva/sclera: Conjunctivae normal. Cardiovascular Rate and Rhythm: Normal rate and regular rhythm. Heart sounds: Normal heart sounds. Pulmonary Effort: Pulmonary effort is normal. No respiratory distress. Breath sounds: Normal breath sounds. Abdominal General: Bowel sounds are normal. There is no distension. Palpations: Abdomen is soft. Tenderness: There is no abdominal tenderness. There is no guarding. Musculoskeletal Right lower leg: Edema present. Left lower leg: Edema present. Comments: Wearing Velcro wraps to bilateral lower extremities, he does have obvious edema, patient states this is his baseline. Skin Coloration: Skin is pale. Comments: He has 3 incisions on his abdomen, laparoscopic, no redness warmth or drainage, appear liya healing well. Neurological Mental Status: He is alert. Mental status is at baseline. Psychiatric Mood and Affect: Mood normal. Behavior: Behavior normal. Thought Content: Thought content normal. Judgment: Judgment normal. ASSESSMENT / PLAN Full background details regarding problems addressed at today's visit can be found in the HPI. Pertinent changes to the care plan based on today's evaluation are explicitly discussed below, otherwiselisted problems are stable and present management will be continued. #1 Anemia Iron Deficiency Assessment & Plan: Last hemoglobin was 8.5, recheck ordered for next week #2 Malignant Neoplasm Of Colon Ascending (HCC) Assessment & Plan: Oncology consultation scheduled for 06/20/23 #3 Hypertensive Chronic Kidney Disease (CKD) Stage 3a Glomerular Filtration Rate (GFR) 45 To 59 ([facility]) Assessment & Plan: Blood pressures reviewed and within normal limits. Continue with diltiazem, Lasix 40 mg daily, losartan 100 mg daily, spironolactone 25 mg daily #4 Diabetes Mellitus Type 2 Peripheral Neuropathy (HCC) Assessment & Plan: Increase Lantus to 32 units at bedtime #5 Stenosis Spinal Lumbar With Neurogenic Claudication Assessment & Plan: Did have consult with Orthopedics. They plan to do a spinal injection in the near future #6 Weakness General Assessment & Plan: Continue with occupational therapy and physical therapy New orders: Increase Lantus to 32 units at bedtime Discontinue hydromorphone Plan to follow up next week when discharge plans are ready PATIENT EDUCATION Ready to learn, no apparent learning barriers were identified; learning preferences include listening. Explained diagnosis and treatment plan; patient/child/caregiver expressed understanding of the content. Billing based on: Time, including the following tasks: reviewing the electronic medical record, updating the EPIC Problem List, reviewing written facility- provided information, reviewing information in facility EMR, medication reconciliation, obtaining collateral history from facility staff, Interviewing and examining the patient, placing orders, communicating orders to facility, providing education/counseling to patient, family, and/or facility staff. Total time 35 minutes. CHMAKER documented in this encounter Miscellaneous Notes * Assessment & Plan Note - Eli Rondon APRN C.N.P., R.N. - 06/15/2023 3:22 PM CSTAssociated Problem(s): Weakness General Continue with occupational therapy and physical therapy CHMAKER * Assessment & Plan Note - Eli Rondon APRN C.N.P., R.N. - 06/15/2023 3:22 PM CSTAssociated Problem(s): Stenosis Spinal Lumbar With Neurogenic Claudication Did have consult with Orthopedics. They plan to do a spinal injection in the near future CHMAKER * Assessment & Plan Note - Eli Rondon APRN C.N.P., R.N. - 06/15/2023 3:22 PM CSTAssociated Problem(s): Diabetes Mellitus Type 2 Peripheral Neuropathy (HCC) Increase Lantus to 32 units at bedtime CHMAKER * Assessment & Plan Note - Eli Rondon APRN C.N.P., R.N. - 06/15/2023 3:21 PM CSTAssociated Problem(s): Hypertensive Chronic Kidney Disease (CKD) Stage 3a Glomerular Filtration Rate (GFR) 45 To 59 (HCC) Blood pressures reviewed and within normal limits. Continue with diltiazem, Lasix 40 mg daily, losartan 100 mg daily, spironolactone 25 mg daily CHMAKER * Assessment & Plan Note - Eli Rondon APRN, C.NAria, R.N. - 06/15/2023 3:20 PM CSTAssociated Problem(s): Malignant Neoplasm Of Colon Ascending (HCC) Oncology consultation scheduled for 06/20/23 CHMAKER * Assessment & Plan Note - Eli Rondon APRN, C.NAria, R.N. - 06/15/2023 3:19 PM CSTAssociated Problem(s): Anemia Iron Deficiency Last hemoglobin was 8.5, recheck ordered for next week CHMAKER documented in this encounter Plan of Treatment Not on file documented as of this encounter Visit Diagnoses Diagnosis Anemia Iron Deficiency- Primary Malignant Neoplasm Of Colon Ascending (HCC) Hypertensive Chronic Kidney Disease (CKD) Stage 3a Glomerular Filtration Rate (GFR) 45 To 59 (HCC) Diabetes Mellitus Type 2 Peripheral Neuropathy (HCC) Stenosis Spinal Lumbar With Neurogenic Claudication Weakness General documented in this encounter Additional Health Concerns Assessment Noted Time PHQ-9 Depression Total Score: 7 09/04/19 16 9:47 AM CDT documented as of this encounter Care Teams Digester Relationship Specialty Start Date End Date Eli Rondon APRN C.N.P., R.N. [address] [place] [phone] PCP - General Family Medicine 04/27/23 07/07/23 documented as of this encounter
--- OUTSIDE RECORDS SUMMARY | 2023-08-11 11:11 | XMS_ITS | Encounter Summary ---
Author Name Unknown Organization [facility] Address [address] [place] [phone] Care Team Providers Care General Operations Agent Name Role Phone Elsewhere, Pcp Primary Care Provider Unavailabl e Encounter Details Date Type Department Care Team (Late st Contact Info) Description 06/08/2023 CPAP Download Remote Patient Monitoring [facility] [address] [place] [phone] [facility], Provider Social History Tobacco Use Types Packs/Day Years Used Date Smoking Tobacco: Former Cigarettes 2 18 0 09/16/1966 - 06/30/1984 Passive Smoke Exposure: Past Smokeless Tobacco: Never Alcohol Use Standard Drinks/Week Comments Not Currently 0 (1 standard drink = 0.6 oz pur e alcohol) rarely, one or two a year [facility] Utilities Answer Date Recorded In the past 12 months has e [employer], gas, oil, or water [employer] threatened to shut off services in your [...] How often do you attend chur or judaism services? More than 4 times per year 12/31/2021 Do you belong to any clubs o r organizations such as restorationist groups, unions, fraternal or athletic groups, or [...] and heating? Not hard at all 02/11/2023 [facility] - Occupational Stress [...] the money to buy more. Never true 01/25/20 24 Within the past 12 months, t [...] your living situation today? I have a [facility] place to live 05/12/2023 Education Answer Date Recorded What is the highest level of school you have completed or the highest degree you have received? Bachelor's degree (e.g., BA, AB, BS) 09/20/2018 Sex and Gender Information Value Date Recorded Sex Assigned at Male 06/14/2018 8:36 PM SOCIAL SERVICE TECHNICIAN Gender Identity Male 10/11/2022 10:17 PM CDT Sexual Orientation Choose not to disclose 2019 1:31 PM SOCIAL SERVICE TECHNICIAN documented as of this encounter Plan of Treatment Not on file documented as of this encounter Visit Diagnoses Not on filedocumented in this encounter Additional Health Concerns Assessment Noted Time PHQ-9 Depression Total Score: 7 09/04/19 16 9:47 AM CDT documented as of this encounter Care Teams General Operations Agent Relationship Specialty Start Date End Date Elsewhere, Pcp PCP - General Internal Medicine 07/08/23 documented as of this encounter
--- OUTSIDE RECORDS SUMMARY | 2023-08-11 11:11 | XMS_ITS | Encounter Summary ---
Author Name Unknown Organization [facility] Address [address] [place] [address] Care Team Providers Care Staple Laster Name Role Phone Eli Rondon APRN, C.N.P., R.N. Primary Care Provider Encounter Details Date Type Department Care Team (Late st Contact Info) Description 06/20/2023 Orders Only [facility] [place] [address] [place] [phone] Eli Rondon APRN, C.N.P., R.N. [address] [place] [phone] Social History Tobacco Use Types Packs/Day Years Used Date Smoking Tobacco: Former Cigarettes 2 18 0 09/16/1966 - 06/30/1984 Passive Smoke Exposure: Past Smokeless Tobacco: Never Alcohol Use Standard Drinks/Week Comments Not Currently 0 (1 standard drink = 0.6 oz pur e alcohol) rarely, one or two a year [facility] Utilities Answer Date Recorded In the past [...] How often do you attend chur or druze services? More than 4 times per year 12/31/2021 Do you belong to any clubs o r organizations such as nondenominational groups, unions, fraternal or athletic groups, or [...] and heating? Not hard at all 02/11/2023 [facility] [place] [facility] Occup[facility] ional Health - Occupational Stress [...] your living situation today? I have a [facility] place to live 05/12/2023 Education Answer Date Recorded What is the highest level of school you have completed or the highest degree you have received? Bachelor's degree (e.g., BA, AB, BS) 09/20/2018 Sex and Gender Information Value Date Recorded Sex Assigned at Male 06/14/2018 8:36 PM FINANCIAL SERVICES EDUCATION CONSULTANT Gender Identity Male 10/11/2022 10:17 PM CDT Sexual Orientation Choose not to disclose 2019 1:31 PM FINANCIAL SERVICES EDUCATION CONSULTANT documented as of this encounter Plan of Treatment Not on file documented as of this encounter Visit Diagnoses Not on filedocumented in this encounter Additional Health Concerns Assessment Noted Time PHQ-9 Depression Total Score: 7 09/04/19 16 9:47 AM CDT documented as of this encounter Care Teams Staple Laster Relationship Specialty Start Date End Date Eli Rondon APRN, C.N.P., R.N. [address] [place] [phone] PCP - General Family Medicine 04/27/23 07/07/23 documented as of this encounter
--- OUTSIDE RECORDS SUMMARY | 2023-08-11 11:11 | XMS_ITS | Encounter Summary ---
Author Name Unknown Organization [facility] Address [address] [place] [address] Care Team Providers Care Medical Staff Director Name Role Phone Eli Rondon APRN, C.NBri., R.N. Primary Care Provider Reason for Visit * Reason Comments Routine Intermediate Visit Encounter Details Date Type Department Care Team (Latest Contact Info) Description 06/28/2023 1:00 PM CDT External Outreach [facility] [place] [address] [place] [phone] John Lerner M.D. [address] [place] [address] Colectomy Partial Status Post (Primary Dx); Malignant [...] Nephrolithiasis Urate; Depressive Disorder; Gastroesophageal Reflux Disease Social History Tobacco Use Types Packs/Day Years Used Date Smoking Tobacco: Former Cigarettes 2 18 0 09/16/1966 - 06/30/1984 Passive Smoke Exposure: Past Smokeless Tobacco: Never Tobacco Cessation:Counseling Given: Not Answered Alcohol Use Standard Drinks/Week Comments Not Currently 0 (1 standard drink = 0.6 oz pur e alcohol) rarely, one or two a year [facility] Utilities Answer Date Recorded In the [...] How often do you attend chur or hindu services? More than 4 times per year 12/31/2021 Do you belong to any clubs o r organizations such as baptist groups, unions, fraternal or athletic groups, or [...] and heating? Not hard at all 02/11/2023 [facility] of Occupat ional Health - Occupational Stress [...] your living situation today? I have a [facility] place to live 05/12/2023 Education Answer Date Recorded What is the highest level of school you have completed or the highest degree you have received? Bachelor's degree (e.g., BA, AB, BS) 09/20/2018 Sex and Gender Information Value Date Recorded Sex Assigned at Male 06/14/2018 8:36 PM ASSISTANT DEAN OF STUDENTS Gender Identity Male 10/11/2022 10:17 PM CDT Sexual Orientation Choose not to disclose 2019 1:31 PM ASSISTANT DEAN OF STUDENTS documented as of this encounter Last Filed Vital Signs Vital Sign Reading Time Taken Comments Blood Pressure 123/62 06/28/2023 7:39 AM CDT Pulse 66 06/28/2023 7:39 AM CDT Temperature 36.8 ??C (98.3 ??F) 06/28/2023 7:39 AM CD T Respiratory Rate 16 06/28/2023 7:39 AM CDT Oxygen Saturation 99% 06/28/2023 7:39 AM CDT Inhaled Oxygen Concentration - - Weight 186 kg (409 lb 9.6 oz) 06/28/2023 7:39 AM CDT Height - - Body Mass Index 54.29 05/11/2023 2:15 PM ASSISTANT DEAN OF STUDENTS documented in this encounter Progress Notes * John Lerner M.D. - 06/28/2023 1:00 PM CDT SUBJECTIVE CHIEF COMPLAINT / REASON FOR VISIT I am asked to see jessika Charlton [place], [place] for a Follow Up visit. Visit Type: In Person Face-to- Face visit HISTORY OF PRESENT ILLNESS Obtained from Patient and Nursing and nursing staff. Mr. Zoltan Olivera is a 72-year-old male [...] repeated falls who is seen today for follow-up. He was admitted to [facility] for short-term rehabilitation on05/16/2023. He recently had a virtual visit with Oncology service at [facility] on 06/20/2023. He was recommended to consider initiation of chemotherapy with capecitabine versus 5-FU. Apparently, he was hesitated with this recommendation and would like to get a 2nd opinion from Oncology service at [facility]. He had a virtual visit with his primary care physician on 06/21/2023. On this visit, he would like to discuss if he could discontinue some of the medications that he does not need totake. He is still taking acetaminophen 1000 mg that was scheduled every 6 hours on a daily basis. He does not have a whole lot of pain and would like to discontinue it. I feel it is reasonable and wemay change it to as needed. He also has question in regards to duloxetine. He was informed that it was used for treating chronic pain and mood disorder. He is on pregabalin currently and he feels that his chronic pain is under control with it. He would like to discontinue the duloxetine. Recently, he has been struggling with worsening low back pain that radiates to the right leg. He also complains of weakness of his bilateral legs. There is no recent fall during his prison stay. He had participated in PT/OT and undergone TFESI without significant improvement. When he saw orthopedic service on 06/03/2023, he was recommended to pursue right-sided epidural steroid injection targeting the L3 nerve root. He denies saddle anesthesia, urinary retention, bowel or bladder incontinence, fever, chills, unintentional weight loss. Nursing staff reports that he almost completed his PT/OT. He would be potentially discharged home next week. Previously, he was complaining of fluid retention with weight gain and increasing leg edema bilaterally. He was on spironolactone 25 mg once daily and furosemide 40 mg once daily. Subsequently, we increase the furosemide to 40 mg twice daily for 1 week. He reported that the leg edema has improved and currently he is back to his baseline. Of note, he has history of chronic lymphedema of bilateral lower extremities. Nursing staff reports that he has a small fissure on right heel. There was no significant bleeding or redness. They used Eucerin lotion to moisturize the heel. However, he is still complaining of pain on his right heel. There is no bleeding or drainage noted. He has history of type 2 diabetes with peripheral neuropathy and chronic kidney disease stage IIIA.Previously, he was concerned that his Lantus dose was cut back to 26 units during the hospitalization. Typically he takes 40 units at home. Given he is in intermediate facility with controlled diet, I recommend to increase the Lantus gradually, monitoring his blood glucose closely for the next few weeks. The Lantus was increased to 32 units at bedtime with insulin sliding scale. Of note, he theodora metformin 1000 mg twice daily. On reviewing the chart, he still has hyperglycemia episodes. MEDICATION Current Outpatient Medications Medication Sig acetaminophen [...] bedtime. Pharmacy select brand per patient insurance/preference. Lactobacillus rhamnosus GG (CULTURELLE) 10-15 billion cell [...] note, otherwise negative. OBJECTIVE VITAL SIGNS Vitals: 06/28/23 0739 BP: 123/62 Pulse: 66 Temp: 36.8 ??C Resp: 16 Weight: (!) 186 kg SpO2: 99% PHYSICAL EXAMINATION Constitutional General: He is not [...] Refill: Capillary refill takes 3-5 seconds. Findings: There is noted mild erythema on right calcaneus region. It is measuring approximately 1.5cm in diameter. Previously seen fissure has healed. No active bleeding or purulent drainage. It is tender to the touch. Neurological General: No focal deficit present. Mental Status: He is alert and oriented to person, place, and time. Psychiatric Mood and Affect: Mood normal. Behavior: Behavior normal. ASSESSMENT / PLAN 1. S/P right colectomy on 05/12/2023. 2. 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 He decides to pursue chemotherapy as recommended by Oncology service. This will be done as outpatient setting. 3. Paroxysmal atrial tachycardia. 4. Hypertension with chronic kidney disease stage IIIA. 5. Chronic bilateral lower leg edema. He will continue his current medication regimen. He was recommended to stay on low sodium diet and try to elevate his legs when resting. 6. Type 2 diabetes with peripheral neuropathy and chronic kidney disease stage IIIA. I elect to increase the Lantus to 34 units at bedtime. We will continue monitoring his blood glucose as scheduled. 7. Chronic low back pain secondary to lumbar spinal stenosis. 8. General weakness. He will participate with PT/OT. We discussed regarding fall precaution. If indicated, he will pursue epidural corticosteroid injection in outpatient setting. Currently he is on pregabalin 300 mg twice daily. He also takes Dilaudid as needed for pain control. He wishes to discontinue the duloxetine.He was informed that we need to taper him off gradually from the duloxetine. He was given instruction to take the duloxetine every other day for 2 weeks, then every 3 days for another 2 weeks, then he may discontinue it. We discussed regarding fall precaution. 9. Obstructive sleep apnea. He will continue using BiPAP. 10. Chronic anemia. He was recently initiated on ferrous sulfate. He was informed regarding potential adverse effect ofthe medication including constipation and black stool. He was recommended to recheck his hemoglobinin 30 days as outpatient setting. 11. Right heel open wound. On today's examination, there is mild erythema noted on the heel region, surrounding the fissure. Ielect to initiate him on mupirocin 2% ointment 3 times daily for 10-14 days. If this is worsening, then we may consider to initiate him on oral antibiotic such as Keflex in the near future. He was recommended to offloading the right heel to prevent worsening of the wounds. 12. History of urate nephrolithiasis. He will continue taking allopurinol and sodium bicarbonate. 13. Depressive disorder. He reports that his mood has been stable and he does not want to continue the duloxetine. As mentioned above, he was given instruction to taper the duloxetine gradually over several weeks. In the interim, he will monitor his mood closely to ensure there is no recurrent depression symptom. 14. Gastroesophageal reflux disease. He reports that he does not have frequent reflux symptom. Therefore I recommend to discontinue the pantoprazole. This could potentially improve his magnesium level as well. All above plan of care are communicated [...] Spinal Lumbar With Neurogenic Claudication Weakness General Apnea Sleep Obstructive Anemia Iron Deficiency Wound Foot Open Initial Right Nephrolithiasis Urate Depressive Disorder Gastroesophageal Reflux Disease documented in this encounter Additional Health Concerns Assessment Noted Time PHQ-9 Depression Total Score: 7 09/04/19 16 9:47 AM CDT documented as of this encounter Care Teams Medical Staff Director Relationship Specialty Start Date End Date Eli Rondon APRN, C.N.P., R.N. [address] [place] [phone] PCP - General Family Medicine 04/27/23 07/07/23 documented as of this encounter
--- OUTSIDE RECORDS SUMMARY | 2023-08-11 11:11 | XMS_ITS ---
Author Name Unknown Organization [facility] Address [address] [place] [address] Care Team Providers Care Director Of Employee Development Name Role Phone Elsewhere, Pcp Primary Care Provider Unavailabl e Active Problems Problem Noted Date Diagnosed Date [...] 150 beats. 02/06 - day mobile cardiac front desk monitor: underlying rhythm of sinus, intermittent sinus arrhythmia, [...] 4. Electronically signed by: Kimi Manzano M.D. [id number] 10-Aug-2016 12:45 Failed Gabapentin in 12/2022. Switched to Lyrica. Last Assessment & Plan: Did have consult with Orthopedics. They plan to do a spinal injection in the near future Hypothyroidism 01/26/2015 10/07/2022 Overview: Has been on more 200 mcg for decades to control thyroid\ Last TSH normal Nodule Prostate 04/08/2014 10/07/2022 Current Oncology Plans No current plan information found. Past Plans No past plan information found. Radiation Treatments * No radiation treatments are documented for this patient in [facility]. Treatments may have been administered in another system. Lifetime Dose Tracking * Chemical Lifetime Dose Automatic Entry Manual Entr y Radiation 1,283.02 mGy 1,283.02 mGy 0 mGy Fluoro Time 9.227 minutes 9.227 minutes 0 minutes DAP (uGy-m2) 9,241.87 uGy-m2 9,241.87 uGy-m2 0 uGy-m2 Resolved Problems Problem Noted Date Diagnosed Date Resolved Date COVID-19 Infection 05/18/2023 Diabetes Mellitus Type 2 Wit h Diabetic Polyneuropathy 05/02/2023 05/18/2023 Bacteremia 04/24/2023 04/26/2023 Urinary Tract Infection Site Not Specified 03/05/2021 04/26/2023 Pyuria 03/05/2021 04/26/2023 Hematuria 03/05/2021 04/06/2023
--- OUTSIDE RECORDS SUMMARY | 2023-08-11 11:11 | XMS_ITS | Encounter Summary ---
Author Name Unknown Organization [facility] Address [address] [place] [id number] Care Team Providers Care Mountain Or Glacier Guide Name Role Phone Eli Rondon APRN, C.N.P., R.N. Primary Care Provider Encounter Details Date Type Department Care Team (Latest Contact Info) Description 06/16/2023 9:15 AM PIT MANAGER Clinical Communication Virtual Review in [place], [place] [address] [place] [phone] Social History Tobacco Use Types Packs/Day Years Used Date Smoking Tobacco: Former Cigarettes 2 18 0 09/16/1966 - 06/30/1984 Passive Smoke Exposure: Past Smokeless Tobacco: Never Alcohol Use Standard Drinks/Week Comments Not Currently 0 (1 standard drink = 0.6 oz pur e alcohol) rarely, one or two a year [facility] Utilities Answer Date Recorded In the past 12 months has e [employer], gas, oil, or water [employer] threatened to shut off services in your [...] How often do you attend chur or spiritism services? More than 4 times per year 12/31/2021 Do you belong to any clubs o r organizations such as jain groups, unions, fraternal or athletic groups, or [...] and heating? Not hard at all 02/11/2023 [facility] of Occupat ional Health - Occupational [...] your living situation today? I have a [facility] place to live 05/12/2023 Education Answer Date Recorded What is the highest level of school you have completed or the highest degree you have received? Bachelor's degree (e.g., BA, AB, BS) 09/20/2018 Sex and Gender Information Value Date Recorded Sex Assigned at Male 06/14/2018 8:36 PM PIT MANAGER Gender Identity Male 10/11/2022 10:17 PM CDT Sexual Orientation Choose not to disclose 2019 1:31 PM PIT MANAGER documented as of this encounter Plan of Treatment Not on file documented as of this encounter Visit Diagnoses Not on filedocumented in this encounter Additional Health Concerns Assessment Noted Time PHQ-9 Depression Total Score: 7 09/04/19 16 9:47 AM CDT documented as of this encounter Care Teams Mountain Or Glacier Guide Relationship Specialty Start Date End Date Eli Rondon APRN, C.N.P., R.N. [address] [place] [phone] PCP - General Family Medicine 04/27/23 07/07/23 documented as of this encounter
--- OUTSIDE RECORDS SUMMARY | 2023-08-11 11:11 | XMS_ITS | Encounter Summary ---
Author Name Unknown Organization [facility] Address [address] [place] [id number] Care Team Providers Care Drop Pit Worker Name Role Phone Elsewhere, Pcp Primary Care Provider Unavailabl e Encounter Details Date Type Department Care Team (Late st Contact Info) Description 08/09/2023 CPAP Download Remote Patient Monitoring [facility] [address] [place] [address] [facility], Provider Social History Tobacco Use Types Packs/Day Years Used Date Smoking Tobacco: Former Cigarettes 2 18 0 09/16/1966 - 06/30/1984 Passive Smoke Exposure: Past Smokeless Tobacco: Never Alcohol Use Standard Drinks/Week Comments Not Currently 0 (1 standard drink = 0.6 oz pur e alcohol) rarely, one or two a year [facility] Utilities Answer Date Recorded In the past 12 months has e [employer], gas, oil, or water [employer] threatened to shut off services in your [...] How often do you attend chur or episcopal services? More than 4 times per year 12/31/2021 Do you belong to any clubs o r organizations such as episcopalian groups, unions, fraternal or athletic groups, or [...] and heating? Not hard at all 02/11/2023 [facility] of Occupat ional Health - Occupational Stress [...] your living situation today? I have a [facility] place to live 05/12/2023 Education Answer Date Recorded What is the highest level of school you have completed or the highest degree you have received? Bachelor's degree (e.g., BA, AB, BS) 09/20/2018 Sex and Gender Information Value Date Recorded Sex Assigned at Male 06/14/2018 8:36 PM PERSONAL BANKING ADVISOR Gender Identity Male 10/11/2022 10:17 PM CDT Sexual Orientation Choose not to disclose 2019 1:31 PM PERSONAL BANKING ADVISOR documented as of this encounter Plan of Treatment Not on file documented as of this encounter Visit Diagnoses Not on filedocumented in this encounter Additional Health Concerns Assessment Noted Time PHQ-9 Depression Total Score: 7 09/04/19 16 9:47 AM CDT documented as of this encounter Care Teams Drop Pit Worker Relationship Specialty Start Date End Date Elsewhere, Pcp PCP - General Internal Medicine 07/08/23 documented as of this encounter
--- OUTSIDE RECORDS SUMMARY | 2023-08-11 11:11 | XMS_ITS | Encounter Summary ---
Author Name Unknown Organization [facility] Address [address] [place] [address] Care Team Providers Care Inpatient Care Manager Rn Name Role Phone Eli Rondon APRN, C.N.P., R.N. Primary Care Provider Reason for Visit * Reason Comments Genetic Testing Results Encounter Details Date Type Department Care Team (Late st Contact Info) Description 06/09/2023 Documentation Department of Medical Genetics in [place], [place] [address] [place] [address] Kirsty Mclaughlin Genetic Testing Results Social History Tobacco Use Types Packs/Day Years Used Date Smoking Tobacco: Former Cigarettes 2 18 0 09/16/1966 - 06/30/1984 Passive Smoke Exposure: Past Smokeless Tobacco: Never Alcohol Use Standard Drinks/Week Comments Not Currently 0 (1 standard drink = 0.6 oz pur e alcohol) rarely, one or two a year [facility] Utilities Answer Date Recorded In the [...] How often do you attend chur or oriental orthodox services? More than 4 times per year 12/31/2021 Do you belong to any clubs o r organizations such as worship groups, unions, fraternal or athletic groups, or [...] and heating? Not hard at all 02/11/2023 [facility] Occupat ional Health - Occupational Stress [...] your living situation today? I have a [facility] place to live 05/12/2023 Education Answer Date Recorded What is the highest level of school you have completed or the highest degree you have received? Bachelor's degree (e.g., BA, AB, BS) 09/20/2018 Sex and Gender Information Value Date Recorded Sex Assigned at Male 06/14/2018 8:36 PM SLIDE MACHINE TENDER Gender Identity Male 10/11/2022 10:17 PM CDT Sexual Orientation Choose not to disclose 2019 1:31 PM SLIDE MACHINE TENDER documented as of this encounter Progress Notes * Kirsty Mclaughlin E - 06/09/2023 3:07 PM CST Images from the original note were not included. CHIEF COMPLAINT/PURPOSE Germline genetic testing results. No pathogenic variants identified. See below for genetic test result interpretation and screening recommendations. HISTORY OF PRESENT ILLNESS Zoltan was seen in the Department of Clinical Genomics on 02/18/2023 due to a personal diagnosis/history of cancer and colon polyps. Zoltan elected to pursue the Multi-Cancer + Colorectal Cancer (+preliminary evidence genes) panel through [employer]. These results were communicated to the patient via the patient online services portal by our genetic counseling executive marketing assistant. RESULTS Germline genetic testing included sequence analysis and gross deletion/duplication analysis of 79 genes associated with hereditary cancer. For a full list of genes included in the analysis, please refer to the genetic test report scanned into the patient's chart (document viewer tab). The patient's germline genetic testing did not identify any pathogenic variants (mutations). 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 A VUS is a change in the spelling of a gene for which the clinical implications are unknown. A VUS is a common finding on genetic testing. It could be a non-harmful change in the DNA (a benign variant) that has no clinical significance, or it could be a harmful change (a pathogenic mutation). A VUS cannot be used to make medical decisions because its significance is unknown. Known pathogenic variants in the AIP gene are associated with predisposition to autosomal dominant familial isolated pituitary adenoma (FIPA) ([employer] UID: [id number]). Again, the patient does nothave a known pathogenic variant in the AIP gene. We typically do not test relatives clinically or change medical management based on a variant of uncertain significance. If the laboratory upgrades this particular genetic change to pathogenic or likely pathogenic (i.e., disease-causing), they will se nd a revised report and we will contact the patient with this information. The fact that no pathogenic variants were detected in the genes for which Zoltan was tested is reassuring. However, the fact that a pathogenic variant was not identified does not eliminate the possibility that the patient and/or their family members have a hereditary susceptibility to cancer. Genetic testing has less than 100% sensitivity, meaning there is a small possibility that a pathogenic variant exists in one of the genes analyzed which cannot be identified by current testing methodology. It is also possible that pathogenic variants in cancer susceptibility genes which have not yet been discovered may be contributing to the personal and/or family history of cancer. PERSONAL AND FAMILY SCREENING RECOMMENDATIONS Given that a hereditary susceptibility to cancer has not been identified by genetic testing, it is generally recommended to screen patients and their family members based on their personal and/or family histories of cancer. It is important for the patient to continue to follow any cancer treatment,management, and/or screening recommendations as directed by their managing provider. Individuals with a family history of colorectal cancer remain at an elevated empiric risk to develop this cancer based on their family history. According to National Comprehensive Cancer Network guidelines, individuals who have a first degree relative with colorectal cancer at any age are advised to begin colonoscopies at age 40 or approximately ten years younger than the earliest age of colorectal cancer diagnosis (whichever is earliest). Colonoscopy should be repeated every 5 years or earlierbased on colonoscopy findings. The patient's second degree relatives are advised to begin screeningat age 45. Individuals who have a first degree relative with advanced adenoma(s) (ie. High- grade dysplasia, 1+cm, villous or tubulovillous histology) would be advised to begin colonoscopies at age 40 or at theage of adenoma diagnosis in the affected relative (whichever is earliest). Colonoscopy should be repeated every 5-10 years or earlier based on colonoscopy findings. Some combinations of affected first-, second-, and third-degree relatives may increase risk sufficiently to alter screening guidelines. Colonoscopy intervals should be further modified based on personal and family history as well as on individual preferences. Factors that modify age to begin screening and colonoscopy intervals include: age of individual undergoing screening; specifics of the family history, including number and age of onset of all affected relatives; size of family; completeness of the family history; participating in screening; and colonoscopy findings in family members. Final screening recommendations should be made by the managing physician. Individuals in this family with a first- or second-degree relative diagnosed with another type of cancer may remain at increased risk for these cancers given their family history. These individuals would be advised to share their family history with their care providers and discuss their screening options with their care providers. These screening recommendations are based on national guidelines. Final screening recommendations should be deferred to the discretion of the managing physician. Other screening recommendations, suchas those made by the [place] [employer], do remain appropriate. FOLLOW UP/RECOMMENDATIONS It is recommended that Zoltan contact our clinic if there are changes to their personal or family history of cancer, as this information may change our genetic testing recommendations. Additionally, the patient is welcome to contact our clinic periodically, as our genetic testing options will likelyimprove over time. The patient is welcome to contact our clinic with any questions. E MACHINE TENDER documented in this encounter Plan of Treatment Not on file documented as of this encounter Visit Diagnoses Not on filedocumented in this encounter Additional Health Concerns Assessment Noted Time PHQ-9 Depression Total Score: 7 09/04/19 16 9:47 AM CDT documented as of this encounter Care Teams Inpatient Care Manager Rn Relationship Specialty Start Date End Date Eli Rondon APRN, C.N.P., R.N. [address] [place] [phone] PCP - General Family Medicine 04/27/23 07/07/23 documented as of this encounter
--- OUTSIDE RECORDS SUMMARY | 2023-08-11 11:11 | XMS_ITS | Encounter Summary ---
Author Name Unknown Organization [facility] Address [address] [place] [id number] Care Team Providers Care Hands Parter Name Role Phone Elsewhere, Pcp Primary Care Provider Unavailabl e Encounter Details Date Type Department Care Team (Late st Contact Info) Description 07/09/2023 CPAP Download Remote Patient Monitoring [facility] [address] [place] [address] [facility], Provider Social History Tobacco Use Types Packs/Day Years Used Date Smoking Tobacco: Former Cigarettes 2 18 0 09/16/1966 - 06/30/1984 Passive Smoke Exposure: Past Smokeless Tobacco: Never Alcohol Use Standard Drinks/Week Comments Not Currently 0 (1 standard drink = 0.6 oz pur e alcohol) rarely, one or two a year [facility] Utilities Answer Date Recorded In the past 12 months has e [employer], gas, oil, or water [employer] threatened to shut off services in your [...] How often do you attend chur or caodaism services? More than 4 times per year 12/31/2021 Do you belong to any clubs o r organizations such as orthodoxy groups, unions, fraternal or athletic groups, or [...] your living situation today? I have a [facility] place to live 05/12/2023 Education Answer Date Recorded What is the highest level of school you have completed or the highest degree you have received? Bachelor's degree (e.g., BA, AB, BS) 09/20/2018 Sex and Gender Information Value Date Recorded Sex Assigned at Male 06/14/2018 8:36 PM KALSOMINER Gender Identity Male 10/11/2022 10:17 PM CDT Sexual Orientation Choose not to disclose 2019 1:31 PM KALSOMINER documented as of this encounter Plan of Treatment Not on file documented as of this encounter Visit Diagnoses Not on filedocumented in this encounter Additional Health Concerns Assessment Noted Time PHQ-9 Depression Total Score: 7 09/04/19 16 9:47 AM CDT documented as of this encounter Care Teams Hands Parter Relationship Specialty Start Date End Date Elsewhere, Pcp PCP - General Internal Medicine 07/08/23 documented as of this encounter
--- OUTSIDE RECORDS SUMMARY | 2023-08-11 11:11 | XMS_ITS | Encounter Summary ---
Author Name Unknown Organization [facility] Address [address] [place] [id number] Care Team Providers Care Hand Coper Name Role Phone Eli Rondon APRN, C.N.P., R.N. Primary Care Provider Reason for Referral * Outpatient (Routine) - Authorized Specialty Diagnoses / Procedures Referred By Michele douglas Referred To Contact Diagnoses Malignant Neoplasm Of Colon Ascending (HCC) Malignant Neoplasm Of Sigmoid Colon (HCC) Procedures Flexible Sigmoidoscopy Zan Rodriguez P.A.-C., M.S. [address] [place] [phone] [facility] Referral ID Status Reason Start Date Expiration Date V isits Requested Visits Authorized [id number] Authorized 06/28/2023 06/27/2024 1 1 Reason for Visit * Reason Onset Date Comments Referral 06/21/2023 Encounter Details Date Type Department Care Team (Late st Contact Info) Description 06/21/2023 Clinical Communication Department of Oncology in [place], [place] [address] [place] [phone] Brenda Delgadillo M.D. [address] [place] [phone] Referral Social History Tobacco Use Types Packs/Day Years Used Date Smoking Tobacco: Former Cigarettes 2 18 0 09/16/1966 - 06/30/1984 Passive Smoke Exposure: Past Smokeless Tobacco: Never Alcohol Use Standard Drinks/Week Comments Not Currently 0 (1 standard drink = 0.6 oz pur e alcohol) rarely, one or two a year [facility] Utilities Answer Date Recorded In the past 12 months has e [employer], gas, oil, or water [employer] threatened to shut off services in your [...] week 12/31/2021 How often do you attend [facility] or amish services? More than 4 times per year 12/31/2021 Do you belong to any clubs o r organizations such as advent groups, unions, fraternal or athletic groups, or [...] and heating? Not hard at all 02/11/2023 [facility] - Occupational Stress Questionnaire Answer Date Recorded [...] Sex Assigned at Male 06/14/2018 8:36 PM COORDINATOR OF EVALUATION Gender Identity Male 10/11/2022 10:17 PM CDT Sexual Orientation Choose not to disclose 2019 1:31 PM COORDINATOR OF EVALUATION documented as of this encounter Miscellaneous Notes * Telephone Encounter - Faye Oconnell R.N. - 06/28/2023 10:23 AM CDT I called Leila back and she was wondering if we would be able to finish the work up here since they are unable to see the patient until 07/10 and her providers are not in clinic to order the tests until then. I told her we would see if we can get him in here sooner and I would call her back if we were unable to coordinate. She was appreciative of the phone call. * Telephone Encounter - Brenda Delgadillo M.D. - 06/21/2023 4:21 PM CST I am not sure if med onc at [place] is part of [place]. Could you please double check? Thank you! DINATOR OF EVALUATION * Telephone Encounter - Michelle Villatoro M.S.N., R.N. - 06/21/2023 9:12 AM COORDINATOR OF EVALUATION ----- Message from Brenda Delgadillo M.D. sent at 06/20/2023 5:21 PM COORDINATOR OF EVALUATION ----- Could you please place a referral to medical oncology at [place]? Please see my consultation note for details. In summary, patient will need to be seen by the end of June to consider adjuvant chemotherapy. Ideally, he should have a flexible sigmoidoscopy, CT scans, and blood work before starting treatment. Thank you! DINATOR OF EVALUATION documented in this encounter Plan of Treatment Scheduled Orders Name Type Priority Associated Diagnoses Orde r Schedule Flexible Sigmoidoscopy GI Routine Malignant Neoplasm Of Colon Ascending (HCC) Malignant Neoplasm Of Sigmoid Colon (HCC) Expected: 06/28/2023 (Approximate), Expires: 09/27/2024 documented as of this encounter Visit Diagnoses Diagnosis Malignant Neoplasm Of Colon Ascending (HCC)- Primary Malignant Neoplasm Of Sigmoid Colon (HCC) documented in this encounter Additional Health Concerns Assessment Noted Time PHQ-9 Depression Total Score: 7 09/04/19 16 9:47 AM CDT documented as of this encounter Care Teams Hand Coper Relationship Specialty Start Date End Date Eli Rondon APRN, C.N.P., R.N. [address] [place] [phone] PCP - General Family Medicine 04/27/23 07/07/23 documented as of this encounter
--- OUTSIDE RECORDS SUMMARY | 2023-08-11 11:12 | XMS_ITS | Encounter Summary ---
Author Name Unknown Organization [facility] Address [address] [place] [address] Care Team Providers Care Burnishing Machine Operator Name Role Phone Eli Rondon APRN, C.NAjitP., R.N. 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 [address] [place] [phone] [facility] Referral ID Status Reason Start Date Expiration Date Visits Re quested Visits Authorized [id number] Closed 06/03/2023 06/02/2024 1 1 ER HAND Reason for Visit * Outpatient (Routine) - Closed Specialty Diagnoses / Procedures Referred By Contac t Referred To Contact Orthopedic Surgery Pérez Ospina M.D. [address] [place] [phone] [facility] Referral ID Status Reason Start Date Expiration Date Visits Re quested Visits Authorized [id number] Closed 02/23/2023 02/22/2026 1 1 Encounter Details Date Type Department Care Team (Late st Contact Info) Description 06/03/2023 2:00 PM SANDER HAND Telemedicine Department of Orthopedic Surgery in [place], [place] [address] [place] [phone] Mario Alberto Navarro P.A.-C., M.S. 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 More than 4 times per year 12/31/2021 Do you belong to any clubs o r organizations such as gnosticist groups, unions, fraternal or athletic groups, or [...] and heating? Not hard at all 02/11/2023 [facility] - Occupational Stress Questionnaire Answer Date [...] Sex Assigned at Male 06/14/2018 8:36 PM SANDER HAND Gender Identity Male 10/11/2022 10:17 PM CDT Sexual Orientation Choose not to disclose 2019 1:31 PM SANDER HAND documented as of this encounter Consult Notes * Mario Alberto Navarro P.A.-C., M.S. - 06/03/2023 2:00 PM CST Images from the original note were not included. CHIEF COMPLAINT / REASON FOR VISIT Zoltan Olivera is a 72 y.o. male presenting today for evaluation of back and R>L leg pain. SUBJECTIVE Consult conducted via real-time audio/video technology by Lukas Navarro P.A.-C., M.S. in [facility] to the patient in [facility] HISTORY OF PRESENT ILLNESS Patient is a pleasant 72-year-old male seen today regarding the above-mentioned complaint. Patient is known to us in Orthopedics. He was seen in the hospital while here during hospitalization in February of 2023. This was when initially the colon cancer was diagnosed which he has had subsequent resection performed. He is now still dealing with pain and weakness in R>L lower extremities. Since h is colon surgery the patient has been residing in a care facility. He has not able to discharge home secondary to increased difficulty with ambulation. He is now utilizing a front wheeled walker and sees physical therapy daily at his facility. He is taking Tylenol which offers moderate improvement of his symptoms. Notes that over the last year he has had 3 falls secondary to his leg symptoms. He endorses a positive shopping cart sign. Patient did have lumbar spine MRI while here in the hospitalin February. OBJECTIVE PHYSICAL EXAM -Limited secondary to video visit. General: Patient is alert and oriented, appears to be in overall good health, in no acute distress,and well nourished. Neurologic: Patient is alert and oriented x 3 with normal attention, mentation, and speech exhibited. Sensation to light touch intact in bilateral upper and lower extremities. PRO Scores: 04/02/2023 8:01 AM 05/29/2023 8:21 PM 05/29/2023 8:24 PM [facility] PROMIS-CAT: Pain interference 65 (moderate) PROMIS-CAT: Physical function 24 (severe dysfunction) 29 (severe dysfunction) IMAGING: MRI 02/21/24 Impression: IMPRESSION: 1. Again demonstrated is a large right subarticular zone disc extrusion at L2-L3 level with inferior migration, with advanced spinal canal narrowing and impingement on the right L3 nerve root. 2. Advanced spinal canal narrowing at L3-L4 and L4-L5 with crowding/compression of the cauda equinanerve roots, similar to prior. 3. Multilevel neural foraminal narrowing as described, with advanced narrowing on the right at L4-L5 and bilaterally at L5-S1. EXAM: MR LUMBAR SPINE WITHOUT IV CONTRAST [...] penetrating to at least mild/moderate canal narrowing. 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 Please see those notes for full details. He is now dealing with noted pain and paresthesias in his R>L lower extremity. Patient is currently engaged in physical therapy without any substantial improvement of his symptoms. Initial TFESI was performed with the hospital without any significant improvement of his symptoms. We elected to move forward with right-sided epidural steroid injection targeting the L3 nerve root. We reviewed his imaging at length today which shows multilevel foraminal and central stenosis. However, his symptoms are largely in his right side. We discussed at length the benefit of both the anesthetic and steroid phase of the injection. I would like the patient be in contact with me 2 weeks post injection to discuss any benefit that may have received. Patient is agreement this plan. - FL Lumbar Spine Transforaminal Epidural Injection Right; Future; Expected date: 06/03/2023 Other orders - Orthopedic Surgery office visit (clinic) There are no Patient Instructions on file for this visit. Lukas Navarro P.A.-C., M.S., 06/03/2023, 3:11 PM SANDER HAND ER HAND documented in this encounter Plan of Treatment Not on file documented as of this encounter Results * FL Lumbar Spine Transforaminal Epidural Injection Right (08/08/2023 2:08 PM CDT) Impressions [id number] - 08/08/2023 2:43 PM CDT Fluoroscopically-guided transforaminal epidural steroid injection. NR Narrative [id number] - 08/08/2023 2:43 PM CDT EXAM: FL [...] residents, and fellows were discussed. Procedure Note iWlner Casas M.D. - 08/08/2023 EXAM: FL LUMBAR [...] felt to best approximate that of an [id number]. Prior right L4 injection did not provide [...] Navarro P.A.-C. M.S. 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 [address] [place] [phone] PCP - General Family Medicine 04/27/23 07/07/23 documented as of this encounter
--- OUTSIDE RECORDS SUMMARY | 2023-08-11 11:12 | XMS_ITS | Encounter Summary ---
Author Name Unknown Organization [facility] Address [address] [place] [address] Care Team Providers Care Mixer Diamond Powder Name Role Phone Eli Rondon APRN, C.NBri., R.N. Primary Care Provider Reason for Visit * Reason Comments Routine Prison Visit Admission Encounter Details Date Type Department Care Team (Latest Contact Info) Description 05/31/2023 1:00 PM CRIMINAL INVESTIGATOR CUSTOMS External Outreach [facility] in [place] [address] [place] [phone] John Lerner M.D. [address] [place] [phone] Colectomy Partial Status Post (Primary Dx); Malignant [...] Uric Acid; Benign Prostatic Hyperplasia Without Obstruction Social History Tobacco Use Types Packs/Day Years Used Date Smoking Tobacco: Former Cigarettes 2 18 0 09/16/1966 - 06/30/1984 Passive Smoke Exposure: Past Smokeless Tobacco: Never Tobacco Cessation:Counseling Given: Not Answered Alcohol Use Standard Drinks/Week Comments Not Currently 0 (1 standard drink = 0.6 oz pur e alcohol) rarely, one or two a year [facility] Utilities Answer Date Recorded In [...] week 12/31/2021 How often do you attend [facility] or caodaism services? More than 4 times per year 12/31/2021 Do you belong to any clubs o r organizations such as hoahaoism groups, unions, fraternal or athletic groups, or [...] and heating? Not hard at all 02/11/2023 [facility] of Occupat ional Health - Occupational Stress [...] Sex Assigned at Male 06/14/2018 8:36 PM CRIMINAL INVESTIGATOR CUSTOMS Gender Identity Male 10/11/2022 10:17 PM CDT Sexual Orientation Choose not to disclose 2019 1:31 PM CRIMINAL INVESTIGATOR CUSTOMS documented as of this encounter Last Filed Vital Signs Vital Sign Reading Time Taken Comments Blood Pressure 134/68 05/31/2023 7:15 AM CRIMINAL INVESTIGATOR CUSTOMS Pulse 80 05/31/2023 7:15 AM CRIMINAL INVESTIGATOR CUSTOMS Temperature 36.7 ??C (98 ??F) 05/31/2023 7:15 AM CRIMINAL INVESTIGATOR CUSTOMS Respiratory Rate 18 05/31/2023 7:15 AM CRIMINAL INVESTIGATOR CUSTOMS Oxygen Saturation 96% 05/31/2023 7:15 AM CRIMINAL INVESTIGATOR CUSTOMS Inhaled Oxygen Concentration - - Weight 187 kg (413 lb 3.2 oz) 05/31/2023 7:15 AM CRIMINAL INVESTIGATOR CUSTOMS Height - - Body Mass Index 54.76 05/11/2023 2:15 PM CRIMINAL INVESTIGATOR CUSTOMS documented in this encounter Progress Notes * John Lerner M.D. - 05/31/2023 1:00 PM CST SUBJECTIVE CHIEF COMPLAINT / REASON FOR VISIT I am asked to see jessika Charlton [place], [place] for an Admission visit. Visit Type: In Person Face-to- Face visit HISTORY OF PRESENT ILLNESS Obtained from Patient and Nursing and nursing staff. Mr. 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 He was admitted to [facility] nursing [facility] on 05/16/2023 for short-term rehabilitation. He was admitted to [facility] from 05/11/2023 through 05/16/2023 secondary to colon carcinoma. He underwent laparoscopic right colectomy with anastomosis on 05/12/2022. Apparentlythe surgery went uneventful. His pain was adequately control with oral oxycodone and acetaminophen as needed. He has adequate appetite and was able to keep everything down. He has regular bowel movement and urination as well. The pathology report revealed invasive poorly differentiated adenocarcinoma in the proximal ascending colon, arising in tubular adenoma with high-grade dysplasia and extending to the serosa. Multiple lymph nodes positive for metastatic carcinoma. He was tested positive for COVID-19 recently. However he was asymptomatic. There was no upper respiratory infection symptoms. Currently, he is out of isolation protocol. He was initially diagnosed with synchronized cecal and sigmoid cancer in January 2023. He underwentcolonoscopy procedure in January 2023 which revealed a large mass in the cecum as well as polyp in the sigmoid colon. The pathology report revealed adenocarcinoma. Subsequently, he was referred to Colorectal surgery service for consultation in February 2023. He was recommended to consider colectomyprocedure. Apparently, he also had been hospitalized at [facility] due to the concern of sepsis. His blood culture grew Clostridium septicum. He was treated with IV Zosyn then transitioned to IV ceftriaxone and IV Flagyl per Infectious Disease recommendation. He complained of having diarrhea sincethe treatment with antibiotic for the sepsis. He reports that he has soft stool without diarrhea, blood or mucus. He reported that previously he was diagnosed with paroxysmal atrial fibrillation and subsequently placed on apixaban. However when he followed up at [facility] he was informed that he had atrial tachycardia and subsequently the anticoagulation treatment was discontinued. On this visit, he brought up to my attention that he noted his bilateral lower legs swollen. On reviewing the chart, he started to gain weight, approximately 6 lb since his admission. He denies shortness of breath, orthopnea, paroxysmal nocturnal dyspnea. He complains of tightness and itching on his bilateral lower legs. Thus far there is no weeping or fluid blisters formation. He states that he was taking furosemide twice daily when he was at home. During the hospitalization, it was changed toonce daily. He also takes spironolactone 25 mg once daily on top of furosemide. He also noted that his fasting blood glucose has elevated recently. He states that he was on Lantusup to 40 units at home. However, during the hospitalization, the Lantus was cut back to 26 units. On reviewing the chart, there was no concern regarding hypoglycemia symptoms. MEDICATION Current Outpatient Medications Medication Sig acetaminophen [...] by mouth 2 (two) times a day. furosemide (LASIX) 20 mg tablet Take 2 tablets (40 mg total) by mouth daily. glucosamine HCl/chondroitin scanlon (GLUCOSAMINE-CHONDROITIN ORAL) Take 3 tablets by mouth daily. 400 mg HYDROmorphone (DILAUDID) 2 mg tablet Take 0.5 tablets (1 mg total) by mouth every 6 (six) hours as needed for moderate pain or score 4-6 of 10 or severe pain or score 7-10 of 10 Indication: Acute Pain Exception. insulin aspart U-100 (NovoLOG FlexPen) 100 unit/mL [...] glargine 100 unit/mL (3 mL) injection Inject 26 Units under the skin at bedtime. Pharmacy [...] note, otherwise negative. OBJECTIVE VITAL SIGNS Vitals: 05/31/23 0715 BP: 134/68 Pulse: 80 Temp: 36.7 ??C Resp: 18 Weight: (!) 187 kg SpO2: 96% PHYSICAL EXAMINATION Constitutional General: He is not [...] and dry. Capillary Refill: Capillary refill takes less than 2 seconds. Findings: Rash present. Comments: There is erythematous macular papular rash on bilateral lower extremities. There is no vesicles, bulla, pustules or open wounds. Neurological General: No focal deficit present. Mental Status: He is alert and oriented to person, place, and time. Psychiatric Mood and Affect: Mood normal. Behavior: Behavior normal. ASSESSMENT / PLAN 1. S/P right colectomy on 05/12/2023. 2. 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 His surgical incisions are healing appropriately. There is no evidence of cellulitis or wound dehiscence. He has follow-up appointment with Oncology service in 4 weeks. 3. Paroxysmal atrial tachycardia. He will continue taking diltiazem. 4. Hypertension with chronic kidney disease stage IIIA. 5. Chronic bilateral lower leg edema. His blood pressure readings are fluctuating. I recommend to monitor his blood pressure readings once daily for 7 days. He will continue taking losartan 50 mg once daily and spironolactone 25 mg once daily. He is to avoid taking NSAIDs. We will increase the furosemide to 40 mg twice daily. He was recommended to take the 2nd dose of furosemide at noon time. We will recheck BMP in 1 week. 6. Bilateral lower extremities rash. He was prescribed triamcinolone 0.5% cream to be used twice daily for 10-14 days. 7. Type 2 diabetes with peripheral neuropathy and chronic kidney disease stage IIIA. We will increase the insulin glargine to 30 units at bedtime with insulin sliding scale and metformin 1000 mg twice daily. We will monitor his blood glucose 3 times daily. We discussed regarding hypoglycemia symptoms and the management. He was reminded to stay on low carb diet. 8. Hyperlipidemia. He will continue taking statin. 9. Hypothyroidism. He will continue taking levothyroxine 225 mcg once daily. 10. Chronic anemia. His recent hemoglobin was 9. We will monitor the hemoglobin in 30 days. 11. Major depressive disorder. He will continue taking duloxetine. 12. Chronic low back pain secondary to lumbar spinal stenosis. Currently he is on pregabalin 300 mg twice daily. He also takes Dilaudid as needed for pain control. We discussed regarding fall precaution. 13. General weakness. He will participate with PT/OT. We discussed regarding fall precaution. 14. Obstructive sleep apnea. He will continue using BiPAP. 15. Uric acid nephrolithiasis. He is on allopurinol. 16. Benign prostatic hypertrophy. He will continue taking tamsulosin. 17. COVID-19 infection. Currently he is on isolation per facility protocol. Otherwise he is asymptomatic. All above plan of care are communicated with the nursing staff. INAL INVESTIGATOR CUSTOMS documented in this encounter Plan of Treatment Not on file documented as of this encounter Visit Diagnoses Diagnosis Colectomy Partial Status Post- Primary Malignant Neoplasm Of Cecum (HCC) Tachycardia Atrial Paroxysmal (HCC) Hypertensive Chronic Kidney Disease (CKD) Stage 3a Glomerular Filtration Rate (GFR) 45 To 59 (HCC) Edema Leg Chronic Rash Leg Diabetes Mellitus Type 2 Peripheral Neuropathy (HCC) Hyperlipidemia Hypothyroidism Anemia Depression Major Recurrent (HCC) Stenosis Spinal Lumbar With Neurogenic Claudication Weakness General Apnea Sleep Obstructive Nephrolithiasis Stones Uric Acid Benign Prostatic Hyperplasia Without Obstruction documented in this encounter Additional Health Concerns Infection Onset Date Last Indicated Resolved Time COVID19 05/15/2023 05/15/2023 06/04/2023 6:10 AM CRIMINAL INVESTIGATOR CUSTOMS Assessment Noted Time PHQ-9 Depression Total Score: 7 09/04/19 16 9:47 AM CDT documented as of this encounter Care Teams Mixer Diamond Powder Relationship Specialty Start Date End Date Eli Rondon APRN, C.N.P., R.N. [address] [place] [phone] PCP - General Family Medicine 04/27/23 07/07/23 documented as of this encounter
--- OUTSIDE RECORDS SUMMARY | 2023-08-11 11:12 | XMS_ITS | Encounter Summary ---
Author Name Unknown Organization [facility] Address [address] [place] [address] Care Team Providers Care Powdered Metal Supervisor Name Role Phone Eli Rondon APRN, C.N.P., R.N. Primary Care Provider Encounter Details Date Type Department Care Team (Late st Contact Info) Description 05/18/2023 10:30 AM CARROT HARVESTER External Outreach [facility] [place] [phone] Eli Rondon APRN, C.N.P., R.N. [address] [place] [phone] Malignant Neoplasm Of Cecum (HCC) (Primary Dx); [...] Nodule Prostate; Other Hyperlipidemia; Edema; COVID-19 Infection Social History Tobacco Use Types Packs/Day Years Used Date Smoking Tobacco: Former Cigarettes 2 18 0 09/16/1966 - 06/30/1984 Passive Smoke Exposure: Past Smokeless Tobacco: Never Tobacco Cessation:Counseling Given: Not Answered Alcohol Use Standard Drinks/Week Comments Not Currently 0 (1 standard drink = 0.6 oz pur e alcohol) rarely, one or two a year [facility] Utilities Answer Date Recorded In the past 12 months has e [employer], gas, oil, or water [employer] threatened to shut off services in your [...] week 12/31/2021 How often do you attend [facility] or bahai services? More than 4 times per year [...] and heating? Not hard at all 02/11/2023 [facility] Stress Questionnaire Answer Date [...] living situation today? I have a [facility] place to live 05/12/2023 Education Answer Date Recorded What is the highest level of school you have completed or the highest degree you have received? Bachelor's degree (e.g., BA, AB, BS) 09/20/2018 Sex and Gender Information Value Date Recorded Sex Assigned at Male 06/14/2018 8:36 PM CARROT HARVESTER Gender Identity Male 10/11/2022 10:17 PM CDT Sexual Orientation Choose not to disclose 2019 1:31 PM CARROT HARVESTER documented as of this encounter Last Filed Vital Signs Vital Sign Reading Time Taken Comments Blood Pressure 100/70 05/18/2023 7:10 AM CARROT HARVESTER Pulse 74 05/18/2023 7:10 AM CARROT HARVESTER Temperature 35.8 ??C (96.5 ??F) 05/18/2023 7:10 AM CS T Respiratory Rate 18 05/18/2023 7:10 AM CARROT HARVESTER Oxygen Saturation 96% 05/18/2023 7:10 AM CARROT HARVESTER Inhaled Oxygen Concentration - - Weight 184 kg (406 lb) 05/18/2023 7:10 AM CARROT HARVESTER Height - - Body Mass Index 53.81 05/11/2023 2:15 PM CARROT HARVESTER documented in this encounter Progress Notes * Breanna Jhaveri L.P.N. - 05/18/2023 10:30 AM CST Images from the original note were not included. SNF VISIT for Post Hospital Follow up Visit This resident was recently hospitalized at: [facility] Date of hospitalization: Admission Date: 05/11/2023 Discharge Date: 05/16/23 Reason for hospitalization: Malignant Neoplasm Of Colon Medication changes: Code Status:Full Code Active issues needing follow up: Yes CANCER FOLLOW-UP - An appointment has been requested within 1 month. Active wound requiring treatment: No Wounds/L/D/A: None SNF Nurse concerns: No OT HARVESTER * Eli Rondon APRN, C.N.P., R.N. - 05/18/2023 10:30 AM CST CHIEF COMPLAINT / REASON FOR VISIT The resident is being seen at [place], [place] for Post hospitalization Follow up Visit Visit Type: In Person Face-to- Face visit SUBJECTIVE HISTORY OF PRESENT ILLNESS Obtained from Patient, Nursing, Family Member, and SBAR: This resident was recently hospitalized at: [facility] Date of hospitalization: Admission Date: 05/11/2023 Discharge Date: 05/16/23 Reason for hospitalization: Malignant Neoplasm Of Colon He had a right laparoscopic colectomy on 05/12/2023 due to colon cancer. Surgical pathology is pending. He should follow-up within 1 month with Oncology. He was previously admitted to [facility] in [place] and returned back for further rehab. Did have positive COVID test prior to discharge from the hospital and is asymptomatic, not currently being treated. Patient had prolonged hospital from 03/08/23 through 04/26/2023 for weakness and inability to stand. See previous note by this provider for more detailed records. Patient does have follow up with Orthopedics on 06/03/2023 to further explore back surgery options. Patient seen today. He denies any symptoms of COVID. He does have soft stools. He is not having anycoughing, fever or chills. He has chronic low back pain. He is having some intermittent abdominal incisional pain, but states it is nothing that he is medication for. Did discuss his p.r.n. hydroxyzine and he says he does not take this. He says he only takes it if he has having a procedure such as an MRI. Patient would like to keep Dilaudid on his med list prior to therapy in case he is having extreme pain. He denies any dizziness or lightheadedness. He is eating and drinking without difficulty. I personally reviewed the most recent following items: clinical notes, lab results, imaging reports The following medical problems were actively reviewed (including updating overview sections as necessary) and addressed as part of today's visit: Diagnosis Overview None CODE STATUS: FULL CODE REVIEW OF SYSTEMS Complete review of systems was performed, as allowable by patient's cognitive status, and incorporating collateral history if applicable. Relevant positives are noted elsewhere in this note, otherwise negative. OBJECTIVE Vital signs provided by facility: BP 100/70 Pulse 74 Temp (!) 35.8 ??C Resp 18 Wt (!) 184 kg SpO2 96% BMI 53.81 kg/m?? PHYSICAL EXAM Constitutional General: He is [...] and present management will be continued. #1 Malignant Neoplasm Of Cecum (HCC) #2 Malignant Neoplasm Of Colon (HCC) #3 Malignant Neoplasm Of Colon Ascending (HCC) S/p right colectomy on 05/12/2023. Pathology is pending, follow up with Oncology in 1 month #4 Depression Major Recurrent (HCC) Duloxetine will discontinue as needed hydroxyzine #5 Tachycardia Atrial Paroxysmal (HCC) Does take diltiazem #6 Morbid Obesity Body Mass Index 50.0-59.9 Adult (HCC) Patient would benefit from weight loss, his has limited mobility due to back pain #7 Diabetes Mellitus Type 2 Peripheral Neuropathy (HCC) Currently being managed with insulin glargine 26 units at bedtime and sliding scale insulin with meals, metformin a 1000 mg twice a day. Patient taking pravastatin, he is also taking pregabalin 300 mg twice a day #8 Hypertension And Chronic Kidney Disease Stage 3 (HCC) Furosemide 20 mg daily, losartan, resume 50 mg daily, previously on 100 mg daily, spironolactone 25mg daily #9 Weakness General PT and OT #10 Anemia Iron Deficiency Lab Results Component Value Date HGB 9.0 (L) 05/11/2023 #11 Apnea Sleep Obstructive BiPAP while sleeping #12 Chronic Kidney Disease (CKD), Stage 3a Glomerular Filtration Rate (GFR) 45 To 59 (HCC) Stable, takes sodium bicarbonate #13 Decline Functional Status Continue with physical therapy and occupational therapy #14 Hypothyroidism Levothyroxine 225 mcg daily #15 Radiculopathy Lumbar #16 Stenosis Spinal Lumbar With Neurogenic Claudication Glucosamine/chondroitin, Dilaudid as needed (changed to 1 mg every 6 hours prn), duloxetine, scheduled acetaminophen #17 Stones Uric Acid Allopurinol #18 Nodule Prostate Patient takes tamsulosin #19 Other Hyperlipidemia Continue with statin #20 Edema Spironolactone and furosemide. Encourage elevation, Velcro compression wraps. #21 COVID-19 Infection Isolation per facility protocol, asymptomatic PATIENT EDUCATION Ready to learn, no apparent [...] patient, family, and/or facility staff. Total time 40 minutes. OT HARVESTER documented in this encounter Plan of Treatment Not on file documented as of this encounter Visit Diagnoses Diagnosis Malignant Neoplasm Of Cecum (HCC)- Primary Malignant Neoplasm Of Colon (HCC) Malignant Neoplasm Of Colon Ascending (HCC) Depression Major Recurrent (HCC) Tachycardia Atrial Paroxysmal (HCC) Morbid Obesity Body Mass Index 50.0-59.9 Adult (HCC) Diabetes Mellitus Type 2 Peripheral Neuropathy (HCC) Weakness General Anemia Iron Deficiency Chronic Kidney Disease (CKD), Stage 3a Glomerular Filtration Rate (GFR) 45 To 59 (HCC) Decline Functional Status Hypothyroidism Apnea Sleep Obstructive Debility Stones Uric Acid Stenosis Spinal Lumbar With Neurogenic Claudication Stone Kidney And Ureteral Nodule Prostate Other Hyperlipidemia Edema COVID-19 Infection documented in this encounter Additional Health Concerns Infection Onset Date Last Indicated Resolved Time COVID19 05/15/2023 05/15/2023 06/04/2023 6:10 AM CARROT HARVESTER Assessment Noted Time PHQ-9 Depression Total Score: 7 09/04/19 16 9:47 AM CDT documented as of this encounter Care Teams Powdered Metal Supervisor Relationship Specialty Start Date End Date Eli Rondon APRN, C.N.P., R.N. [address] [place] [phone] PCP - General Family Medicine 04/27/23 07/07/23 documented as of this encounter
--- OUTSIDE RECORDS SUMMARY | 2023-08-11 11:12 | XMS_ITS | Encounter Summary ---
Author Name Unknown Organization [facility] Address [address] [place] [id number] Care Team Providers Care Nanny Babysitter Name Role Phone Eli Rondon APRN, C.N.P., R.N. Primary Care Provider Reason for Visit * Reason Onset Date Comments Appt Video 06/06/2023 Encounter Details Date Type Department Care Team (Late st Contact Info) Description 06/06/2023 Clinical Communication Department of Oncology in [place], [place] [address] [place] [phone] Brenda Delgadillo M.D. [address] [place] [phone] Appt Video Social History Tobacco Use Types Packs/Day Years Used Date Smoking Tobacco: Former Cigarettes 2 18 0 09/16/1966 - 06/30/1984 Passive Smoke Exposure: Past Smokeless Tobacco: Never Alcohol Use Standard Drinks/Week Comments Not Currently 0 (1 standard drink = 0.6 oz pur e alcohol) rarely, one or two a year [facility] Utilities Answer Date Recorded In the past 12 months has th e [employer], gas, oil, or water company threatened to [...] How often do you attend chur or protestant services? More than 4 times per year 12/31/2021 Do you belong to any clubs o r organizations such as uatsdin groups, unions, fraternal or athletic groups, or [...] and heating? Not hard at all 02/11/2023 [facility] [place] of Occupat ional Health - Occupational Stress [...] your living situation today? I have a [facility] place to live 05/12/2023 Education Answer Date Recorded What is the highest level of school you have completed or the highest degree you have received? Bachelor's degree (e.g., BA, AB, BS) 09/20/2018 Sex and Gender Information Value Date Recorded Sex Assigned at Male 06/14/2018 8:36 PM DIRECTOR OF STATE Gender Identity Male 10/11/2022 10:17 PM CDT Sexual Orientation Choose not to disclose 2019 1:31 PM DIRECTOR OF STATE documented as of this encounter Miscellaneous Notes * Telephone Encounter - Brenda Delgadillo M.D. - 06/08/2023 11:42 AM CST Video consult is okay in this case. But moving forward, please be aware that for most new patients,we do need in-person visit! CTOR OF STATE documented in this encounter Plan of Treatment Not on file documented as of this encounter Visit Diagnoses Not on filedocumented in this encounter Additional Health Concerns Assessment Noted Time PHQ-9 Depression Total Score: 7 09/04/19 16 9:47 AM CDT documented as of this encounter Care Teams Nanny Babysitter Relationship Specialty Start Date End Date Eli Rondon APRN, C.N.P., R.N. [address] [place] [phone] PCP - General Family Medicine 04/27/23 07/07/23 documented as of this encounter
--- OUTSIDE RECORDS SUMMARY | 2023-08-11 11:12 | XMS_ITS | Encounter Summary ---
Author Name Unknown Organization [facility] Address [address] [place] [address] Care Team Providers Care Cigar Making Supervisor Name Role Phone Eli Rondon APRN, C.N.P., R.N. Primary Care Provider Reason for Visit * Reason Onset Date Comments Results 05/23/2023 Encounter Details Date Type Department Care Team (Late st Contact Info) Description 05/23/2023 Clinical Communication Division of Colon and Rectal Surgery in [place], [place] [address] [place] [phone] Bonny Clifton M.B., BEstela, M.D. [address] [place] [phone] Results Social History Tobacco Use Types Packs/Day Years Used Date Smoking Tobacco: Former Cigarettes 2 18 0 09/16/1966 - 06/30/1984 Passive Smoke Exposure: Past Smokeless Tobacco: Never Alcohol Use Standard Drinks/Week Comments Not Currently 0 (1 standard drink = 0.6 oz pur e alcohol) rarely, one or two a year [facility] Utilities Answer Date Recorded In the [...] How often do you attend chur or jain services? More than 4 times per year 12/31/2021 Do you belong to any clubs o r organizations such as scientology groups, unions, fraternal or athletic groups, or [...] and heating? Not hard at all 02/11/2023 [facility] [place] of Occupat ional Health - Occupational Stress [...] your living situation today? I have a [facility] place to live 05/12/2023 Education Answer Date Recorded What is the highest level of school you have completed or the highest degree you have received? Bachelor's degree (e.g., BA, AB, BS) 09/20/2018 Sex and Gender Information Value Date Recorded Sex Assigned at Male 06/14/2018 8:36 PM SLIP TENDER Gender Identity Male 10/11/2022 10:17 PM CDT Sexual Orientation Choose not to disclose 2019 1:31 PM SLIP TENDER documented as of this encounter Miscellaneous Notes * Telephone Encounter - Sera Cabrera RAjitN. - 05/23/2023 4:56 PM CST Test Result Information: Mr. Olivera was contacted and informed of his pathology results. Colon, cecum, appendix, terminal ileum, right hemicolectomy: Invasive poorly differentiated adenocarcinoma, forming a 6.1 x 4.8 x 3.1 cm mass in the proximal ascending colon, arising in a tubular adenoma with high-grade dysplasia and extending to the serosa. The surgical resection margins are negative for tumor. Multiple (2 of 14) lymph nodes are positive for metastatic carcinoma. He is looking forward to seeing oncology to discuss further treatment. Disposition/Recommendation: self-care is appropriate at this time, patient encouraged to call back with questions Information/Education: not applicable Caller agreeable to plan of care: yes TENDER documented in this encounter Plan of Treatment Not on file documented as of this encounter Visit Diagnoses Not on filedocumented in this encounter Additional Health Concerns Infection Onset Date Last Indicated Resolved Time COVID19 05/15/2023 05/15/2023 06/04/2023 6:10 AM SLIP TENDER Assessment Noted Time PHQ-9 Depression Total Score: 7 09/04/19 16 9:47 AM CDT documented as of this encounter Care Teams Cigar Making Supervisor Relationship Specialty Start Date End Date Eli Rondon APRN, C.N.P., R.N. [address] [place] [phone] PCP - General Family Medicine 04/27/23 07/07/23 documented as of this encounter
--- OUTSIDE RECORDS SUMMARY | 2023-08-11 11:12 | XMS_ITS | Encounter Summary ---
Author Name Unknown Organization [facility] Address [address] [place] [address] Care Team Providers Care Generator Worker Name Role Phone Eli Rondon APRN, C.N.P., R.N. Primary Care Provider Encounter Details Date Type Department Care Team (Late st Contact Info) Description 06/02/2023 Orders Only Department of Family Medicine in [place], [place] [address] [place] [phone] John Lerner M.D. [address] [place] [phone] Social History Tobacco Use Types Packs/Day Years Used Date Smoking Tobacco: Former Cigarettes 2 18 0 09/16/1966 - 06/30/1984 Passive Smoke Exposure: Past Smokeless Tobacco: Never Alcohol Use Standard Drinks/Week Comments Not Currently 0 (1 standard drink = 0.6 oz pur e alcohol) rarely, one or two a year [facility] Utilities Answer Date Recorded In the past [...] How often do you attend chur or religion services? More than 4 times per year 12/31/2021 Do you belong to any clubs o r organizations such as sikhism groups, unions, fraternal or athletic groups, or [...] and heating? Not hard at all 02/11/2023 [facility] [place] of Occupat ional Health - Occupational Stress [...] Sex Assigned at Male 06/14/2018 8:36 PM SCANNING CLERK Gender Identity Male 10/11/2022 10:17 PM CDT Sexual Orientation Choose not to disclose 2019 1:31 PM SCANNING CLERK documented as of this encounter Plan of Treatment Not on file documented as of this encounter Visit Diagnoses Not on filedocumented in this encounter Additional Health Concerns Infection Onset Date Last Indicated Resolved Time COVID19 05/15/2023 05/15/2023 06/04/2023 6:10 AM SCANNING CLERK Assessment Noted Time PHQ-9 Depression Total Score: 7 09/04/19 16 9:47 AM CDT documented as of this encounter Care Teams Generator Worker Relationship Specialty Start Date End Date Eli Rondon APRN, C.N.P., R.N. [address] [place] [phone] PCP - General Family Medicine 04/27/23 07/07/23 documented as of this encounter
--- OUTSIDE RECORDS SUMMARY | 2023-08-11 11:12 | XMS_ITS | Encounter Summary ---
Author Name Unknown Organization [facility] Address [address] [place] [address] Care Team Providers Care Cost Recorder Name Role Phone Nela Tiffanie Bryant APRNN.P., R.N. Primary Care Provider Reason for Visit * Reason Onset Date Comments Cancer stage 05/16/2023 Encounter Details Date Type Department Care Team (Late st Contact Info) Description 05/16/2023 Clinical Communication Division of Colon and Rectal Surgery in [place], [place] [address] [place] [phone] Bonny Clifton M.B., BEstela, M.D. [address] [place] [phone] Cancer stage Social History Tobacco Use Types Packs/Day Years Used Date Smoking Tobacco: Former Cigarettes 2 18 0 09/16/1966 - 06/30/1984 Passive Smoke Exposure: Past Smokeless Tobacco: Never Alcohol Use Standard Drinks/Week Comments Not Currently 0 (1 standard drink = 0.6 oz pur e alcohol) rarely, one or two a year [facility] Utilities Answer Date Recorded In the [...] week 12/31/2021 How often do you attend [facility] or uatsdin services? More than 4 times per year 12/31/2021 Do you belong to any clubs o r organizations such as taoist groups, unions, fraternal or athletic groups, or [...] heating? Not hard at all 02/11/2023 [facility] [place] of Occupat ional Health - Occupational Stress [...] your living situation today? I have a [facility] place to live 05/12/2023 Education Answer Date Recorded What is the highest level of school you have completed or the highest degree you have received? Bachelor's degree (e.g., BA, AB, BS) 09/20/2018 Sex and Gender Information Value Date Recorded Sex Assigned at Male 06/14/2018 8:36 PM EDITOR DEPARTMENT Gender Identity Male 10/11/2022 10:17 PM CDT Sexual Orientation Choose not to disclose 2019 1:31 PM EDITOR DEPARTMENT documented as of this encounter Plan of Treatment Not on file documented as of this encounter Visit Diagnoses Not on filedocumented in this encounter Additional Health Concerns Infection Onset Date Last Indicated Resolved Time COVID19 05/15/2023 05/15/2023 06/04/2023 6:10 AM EDITOR DEPARTMENT Assessment Noted Time PHQ-9 Depression Total Score: 7 09/04/19 16 9:47 AM CDT documented as of this encounter Care Teams Cost Recorder Relationship Specialty Start Date End Date Eli Rondon APRN, C.N.P., R.N. [address] [place] [phone] PCP - General Family Medicine 04/27/23 07/07/23 documented as of this encounter
--- OUTSIDE RECORDS SUMMARY | 2023-08-11 11:12 | XMS_ITS | Encounter Summary ---
Author Name Unknown Organization [facility] Address [address] [place] [address] Care Team Providers Care Family Advocate Name Role Phone Eli Rondon APRN, C.N.P., R.N. Primary Care Provider Reason for Visit * Auth/Cert (Routine) Specialty Diagnoses / Procedures Referred By Michele t Referred To Contact Diagnoses Malignant Neoplasm Of Colon (HCC) Bowel prep for surgery Procedures OTHER CONVERTED SHX (SEE COMMENT) Referral ID Status Reason Start Date Expiration Date Visits Re quested Visits Authorized [id number] 1 1 Encounter Details Date Type Department Care Team (Latest Contact Info) Description 05/11/2023 2:08 PM PRODUCTION PLANNER SCHEDULER - 05/16/2023 10:24 AM [facility] Hospital Encounter [facility], Sixth Floor [address] [place] [address] Bonny Clifton M.B., B., M.D. [address] [place] [id number] Repeated Falls (Primary Dx); Malignant Neoplasm Of Colon Ascending (HCC); Morbid Severe Obesity Due To Excess Calories (HCC); Stenosis Spinal Lumbar With Neurogenic Claudication; Weakness General; Debility; Malignant Neoplasm Of Colon (HCC) [facility]charge Disposition: [facility] Social History Tobacco Use Types Packs/Day Years Used Date Smoking Tobacco: Former Cigarettes 2 18 0 09/16/1966 - 06/30/1984 Passive Smoke Exposure: Past Smokeless Tobacco: Never Alcohol Use Standard Drinks/Week Comments Not Currently 0 (1 standard drink = 0.6 oz pur e alcohol) rarely, one or two a year [facility] Utilities Answer Date Recorded In the past 12 months has th e [employer] media, gas, oil, or water company threatened to [...] week 12/31/2021 How often do you attend [facility] or temple services? More than 4 times per year 12/31/2021 Do you belong to any clubs o r organizations such as religious groups, unions, fraternal or athletic groups, or [...] and heating? Not hard at all 02/11/2023 [facility] - Occupational Stress Questionnaire Answer Date Recorded [...] Sex Assigned at Male 06/14/2018 8:36 PM PRODUCTION PLANNER SCHEDULER Gender Identity Male 10/11/2022 10:17 PM CDT Sexual Orientation Choose not to disclose 2019 1:31 PM PRODUCTION PLANNER SCHEDULER documented as of this encounter Last Filed Vital Signs Vital Sign Reading Time Taken Comments Blood Pressure 157/85 05/16/2023 9:16 AM PRODUCTION PLANNER SCHEDULER Pulse 67 05/16/2023 9:16 AM PRODUCTION PLANNER SCHEDULER Temperature 36.3 ??C (97.3 ??F) 05/16/2023 9:16 AM CS T Respiratory Rate 14 05/16/2023 9:16 AM PRODUCTION PLANNER SCHEDULER Oxygen Saturation 100% 05/16/2023 9:16 AM PRODUCTION PLANNER SCHEDULER Inhaled Oxygen Concentration - - Weight 184 kg (404 lb 12.2 oz) 05/11/2023 2:15 P M PRODUCTION PLANNER SCHEDULER Height 185 cm (6' 0.84) 05/11/2023 2:15 PM PRODUCTION PLANNER SCHEDULER Body Mass Index 53.64 05/11/2023 2:15 PM PRODUCTION PLANNER SCHEDULER documented in this encounter Discharge Summaries * Delma Ramirez APRN, C.N.P., D.N.P. - 05/16/2023 9:03 AM CST DISCHARGE SUMMARY BRIEF OVERVIEW Hospital: [facility] Discharge Provider: Bonny Clifton M.B. Primary Team: [facility] Colon and Rectal Surgery - [place] Primary Care Providers: Eli Rondon APRN, C.N.PAjit, RAjit* (General) [address] [place] [phone] Primary Care Provider Primary Care Provider Other Providers: None Admission Date: 05/11/2023 Discharge Date: 05/16/23 PRINCIPAL DIAGNOSIS Malignant Neoplasm Of Colon (HCC) SECONDARY DIAGNOSES Principal Problem: Malignant Neoplasm Of Colon (HCC) Active Problems: Chronic Kidney Disease (CKD), Stage 3a Glomerular Filtration Rate (GFR) 45 To 59 (HCC) Morbid Obesity Body Mass Index 50.0-59.9 Adult (HCC) Hypertension And Chronic Kidney Disease Stage 3 (HCC) Apnea Sleep Obstructive Depression Major Recurrent (HCC) Hypothyroidism Other Hyperlipidemia Diabetes Mellitus Type 2 Peripheral Neuropathy (HCC) Tachycardia Atrial Paroxysmal (HCC) Debility 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 * Surgery Information This Encounter Past Procedures (05/16/2022 to Today) Date Procedures Providers Loc / Dept 05/12/2023 LAPAROSCOPIC COLECTOMY RIGHT, ANASTOMOSIS. Bonny Clifton M.B., B.Ch., Tania Stone M.B., B.Lebron., B.A.O. RST ROEI OR DISCHARGE DISPOSITION [facility] [3] ACTIVE ISSUES REQUIRING FOLLOW UP CANCER FOLLOW-UP - An appointment has been requested within 1 month. - Your surgical pathology is pending at the time of discharge. You will be notified of your pathology in approximately 5 business days. If someone does not notify you, please call your surgeons' office. FOLLOW-UP - There is no routine post-op follow-up with Dr. Clifton's office. The patient was provided post-op education, as well as phone numbers to his surgeon's appointment and medical secretaries. OUTPATIENT FOLLOW UP Scheduled Appointments 06/03/2023 2:00 PM Mario Alberto Navarro P.A.-C., M.S. Orthopedic Surgery For appointment details refer to your Patient Appointment Guide. TEST RESULTS PENDING AT DISCHARGE Pending Labs Order Current Status Surgical Pathology, Frozen Lab Preliminary result DETAILS OF HOSPITAL STAY REASON FOR ADMISSION Malignant Neoplasm Of Colon (HCC) HOSPITAL COURSE PRIMARY DIAGNOSIS: Malignant Neoplasm of Colon, preliminary pathology with positive nodes PROCEDURE: 05/12/2022 Procedure(s) (LRB): LAPAROSCOPIC COLECTOMY RIGHT, ANASTOMOSIS. (Right) PATHOLOGY: Your surgical pathology is pending at the time of discharge. You will be notified of your pathology in approximately 5 business days. If someone does not notify you, please call your surgeons' office. INCISION ASSESSMENT: Clean, dry, and intact without signs of erythema or drainage at the time of discharge. DRAINS: No drain placed intraoperatively. and No drains in place at the time of discharge. ADDITIONAL DIAGNOSES/COMPLICATIONS/CHRONIC CONDITIONS ADDRESSED DURING HOSPITALIZATION: # Debility, baseline PT/OT consulted. Patient resides in long-term care facility, case management assisted with coordination to return at discharge. # COVID positive, asymptomatic Routine COVID screening prior to return to SNF returned positive. No symptoms, no treatment started. # Caprini Score = 8 - 1 week Lovenox at discharge The patient is at high risk for postoperative DVT or PE. Mechanical AND chemoprophylaxis are recommended at the time of procedure and during postoperative hospitalization, as well as chemoprophylaxisat the time of hospital discharge, unless there are contraindications or risk of bleeding outweighsbenefits of chemoprophylaxis. CONSULTS ORDERED DURING THIS ADMISSION IP CONSULT TO CARE MANAGEMENT IP CONSULT TO CO FOUNDER AND CHIEF STRATEGY OFFICER WOUND CARE CONDITION AT DISCHARGE stable Discharge instructions were provided to the patient and caregiver(s). Total time spent in discharge services today: 30 minutes. UCTION PLANNER SCHEDULER documented in this encounter Discharge Instructions * Attachments The following attachments cannot be sent through Care Everywhere. * Enoxaparin (By injection) (Yemeni) documented in this encounter Medications at Time [...] times a day. 60 capsule 2022 2023 glucosamine HCl/chondroitin scanlon (GLUCOSAMINE-CHONDROI TIN ORAL) Take [...] 399: Call service writing Insulin orders 04/27/2023 Lactobacillus rhamnosus GG (CULTURELLE) 10-15 billion cell [...] mcg for total dose 225 mcg 05/27/2014 losartan (COZAAR) 100 mg tablet Take 0.5 tablets (50 mg total) by mouth daily. 05/02/2023 magnesium oxide (MAG-OX) 400 mg (241.3 mg magnesium) tablet Take 1 tablet (400 mg total) by mouth 3 (three) times a day before meals. Low magnesium 04/27/2023 metFORMIN (GLUCOPHAGE) 1,000 mg tablet Take 1 [...] mg by mouth every morning before breakfast. pravastatin (PRAVACHOL) 80 mg tablet Take 1 tablet by mouth at bedtime. 11/24/2015 psyllium, with aspartame, (METAMUCIL) 3.4 gram packet [...] 2 capsules by mouth at bedtime. 05/27/2014 enoxaparin (LOVENOX) 40 mg/0.4 mL injection Inject 0.4 mL (40 mg total) under the skin 2 (two) times a day for 7 days. 05/16/2023 05/31/2023 furosemide (LASIX) 20 mg tablet Take 2 tablets (40 mg total) by mouth daily. 05/02/2023 06/15/2023 HYDROmorphone (DILAUDID) 2 mg tabletIndications:Chr onic Pain/Nonacute Pain Take 0.5 tablets (1 mg total) by mouth daily as needed for pain Indication: Chronic Pain/Nonacute Pain. Give this 1mg dose daily 30-60 minutes before working with PT. If no PT, do not give this dose. 15 tablet 04/27/2023 05/18/2023 HYDROmorphone (DILAUDID) 2 mg tabletIndications:Chr onic Pain/Nonacute Pain Take 1 tablet (2 mg total) by mouth 2 (two) times a day as needed for severe pain or score 7-10 of 10 Indication: Chronic Pain/Nonacute Pain. Give this only in response to patient reported severe pain 15 tablet 04/27/2023 05/18/2023 hydrOXYzine (ATARAX) 10 mg tablet Take 1 tablet (10 mg total) by mouth every 6 (six) hours as needed for anxiety. 04/27/2023 05/18/2023 insulin glargine 100 unit/mL (3 mL) injection Inject 26 Units under the skin at bedtime. Pharmacy select brand per patient insurance/preference. 04/27/2023 06/15/2023 pregabalin (LYRICA) 300 mg capsule Take 1 capsule (300 mg total) by mouth 2 (two) times a day. 40 capsule 05/04/2023 06/02/2023 documented as of this encounter Progress Notes * Jaziel Monk, R.N. - 05/16/2023 8:52 AM CST SUBJECTIVE washhouse worker continues to follow the patient for discharge planning needs. The patient will discharge back to [facility] upon discharge. The patient declined additional resources. Anticipated Needs Functional Status: bathing, dressing, mobility, meal preparation, medication setup/administration, housekeeping, and shopping Assistive Devices: BiPAP/CPAP/VPAP, cell phone, walker - front wheeled, and wheelchair - manual Services/Resources: Short term rehab. Modifications to home environment: None Transportation: wheelchair van Anticipated discharge destination: [facility] OBJECTIVE Zoltan Olivera is currently hospitalized at [facility] in room [id number]. Patient was not assessed at this time. ASSESSMENT / PLAN Assessment Those noted above appear to have insight into the patient's needs at this time and are planning appropriately for discharge needs. They report agreement with the below plan with no further questions at this time. Plan Patient to return [facility]. Per service, the patient tested positive for COVID 05/15/23, he is asymptomatic. [facility] is willing to accept the patient back to the facility today asplanned. transportation is also still willing to transport the patient, as long as he wears a mask at all time. The transport company request if any medication need to be picked up from pharmacy prior to discharge that this be completed before the transportation company arrives, to minimize exposure to others. Transportation: The ride has been scheduled for 05/16/2023 @ 10:00AM with Transportation [phone]. The fare for this ride is $450.00, patient pay. Please have the patient contact forpayment prior to transport. The patient will be picked up from their hospital room. will providethe wheelchair to be used for transport. Destination - Admitted Since 05/11/2023 Service Provider Selected Services Address Phone Fax Patient Preferred [facility] [address] [facility] [phone] -- Contact: Nursing Patient has a paid bed hold. Facility cannot manage IV antibiotics. Facility cannot manage a wound vac. Facility cannot accept weekend readmissions. COVID screening needed before patient can return: yes, guidelines required: within 24 hrs Facility prefers patient return by 2 pm. Facility oxygen provider is [facility] (phone [phone], fax [phone]) . Was the patient on oxygen at your facility: no Transportation to be provided by wheelchair van transport. CASE MANAGEMENT: to arrange transportation and transport oxygen if needed. NURSING: Complete documentation in the Discharge Navigator including Nursing Report Info and Facility/Next Level of Care Info Contact facility to give report on morning of discharge Send required packet of dismissal information with patient, including After Visit Summary and advance directive. If transport oxygen is needed, work with primary service and respiratory therapy to obtain an oxygen prescription. PRIMARY SERVICE: Provide written prescriptions for all narcotics If transport oxygen is needed, work with nursing and respiratory therapy to complete an oxygen prescription. After Visit Summary to include: All discharge medications including dosage, times for administration, diagnosis, and stop date. Ongoing care - wound care, infection precautions and phone numbers to call. CASE MANAGEMENT: Reviewed patient's insurance coverage for the services noted above. The patient appear(s) to have an understanding of this. Will continue to follow and assist if needs arise. Jaziel Monk R.N. 05/16/2023 UCTION PLANNER SCHEDULER * Delma Ramirez, BETHANY, C.N.P., D.N.P. - 05/16/2023 8:32 AM CST SUBJECTIVE Patient is 4 Days Post-Op. Clinically stable with no acute events overnight. Reports no nausea and no vomiting. Patient is tolerating a general diet. Urine output is adequate. Patient has passed flatus and passed stool . Pain is controlled on oral medications. Ambulating with assistance. OBJECTIVE Vitals: Temperature: [36.4 ??C-36.8 ??C] 36.4 ??C Resp Rate: [16] 16 Blood Pressure: (121-149)/(56-81) 149/81 SpO2: [95 %-100 %] 95 % Pulse Rate: [61-66] 61 Vitals signs reviewed. Stable and afebrile. Physical Exam: General Appearance: Alert and orientated. Lying comfortably in bed, in no acute distress. Abdomen: Soft, obese, non-distended, non-tender. Wound Location - abdomen Wound Assessment - clean, dry, intact, and no surrounding erythema or drainage Labs Recent Results (from the past 24 hour(s)) SARS CoV-2 RNA, PCR Asymptomatic Collection Time: 05/15/23 9:10 AM Specimen: Nasopharynx; Swab Result Value SARS CoV-2 RNA, PCR, Source Swab, Nasopharynx SARS CoV-2 RNA, PCR Detected (A) Glucose, POCT Collection Time: 05/15/23 2:04 PM Result Value Glucose, POCT, B 177 (H) Site Capillary Last Intake 3-4 hours Glucose, POCT Collection Time: 05/15/23 4:41 PM Result Value Glucose, POCT, B 185 (H) Site Capillary Last Intake 3-4 hours Glucose, POCT Collection Time: 05/15/23 9:10 PM Result Value Glucose, POCT, B 238 (H) Site Capillary Labs reviewed. Clincally significant lab results include: COVID+, asymptomatic, noted on routine screening prior to returning to SNF. ASSESSMENT / PLAN #1 Chronic Kidney Disease (CKD), Stage 3a Glomerular Filtration Rate (GFR) 45 To 59 ([facility]) #2 Morbid Obesity Body Mass Index 50.0-59.9 Adult (HCC) #3 Hypertension And Chronic Kidney Disease Stage 3 (HCC) #4 Apnea Sleep Obstructive #5 Depression Major Recurrent (HCC) #6 Hypothyroidism #7 Other Hyperlipidemia #8 Diabetes Mellitus Type 2 Peripheral Neuropathy (HCC) #9 Tachycardia Atrial Paroxysmal (HCC) #10 Debility #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 #12 Malignant Neoplasm Of Colon Ascending (HCC) #13 Malignant Neoplasm Of Colon (HCC) #14 Repeated Falls # 15 COVID+, asymptomatic Plan-4 Days Post-Op from Procedure(s) (LRB): LAPAROSCOPIC COLECTOMY RIGHT, ANASTOMOSIS. (Right), Enhanced Recovery Protocol -Pain control with scheduled Tylenol and PRN oral oxycodone -Adult Diet Regular; Fiber Modified, no raw fruits or vegetables -Encourage ambulation and deep breathing exercises -Case Management coordinating transportation for return back to SNF DVT prophylaxis: Prophylactic heparin. Anticipated discharge date: 05/16/23. Barrier to discharge is None identified. Caprini Score = 8 One week (7 days) of Lovenox at discharge. Please initiate inpatient teaching. UCTION PLANNER SCHEDULER * Jean Stock M.B.B.S. - 05/15/2023 2:23 PM CST PROGRESS NOTE Postop Day: 3 Days Post-Op Hospital Day: LOS: 4 days Zoltan Olivera is a 72-year-old male who is status post right hemicolectomy for ascending colon tumor. SUBJECTIVE Patient was seen during the morning rounds today. Afebrile and hemodynamically stable. No acute events overnight. He is currently awaiting return to care facility on Tuesday. No acute concerns at thismoment. Good oral intake. Optimal urine output. Has evidence of return of bowel function. Denies any nausea or vomiting. OBJECTIVE Vitals Temperature: [36.4 ??C-36.9 ??C] 36.8 ??C Resp Rate: [16] 16 Blood Pressure: (124-142)/(60-70) 128/69 SpO2: [95 %-98 %] 95 % Pulse Rate: [61-72] 62 I/O Intake/Output Summary (Last 24 hours) at 05/15/2023 1423 Last data filed at 05/15/2023 1329 Gross per 24 hour Intake 710 ml Output 2475 ml Net -1765 ml Labs Recent Results (from the past 24 hour(s)) Glucose, POCT Collection Time: 05/14/23 4:04 PM Result Value Glucose, POCT, B 226 (H) Site Capillary Glucose, POCT Collection Time: 05/14/23 8:33 PM Result Value Glucose, POCT, B 220 (H) Site Capillary Glucose, POCT Collection Time: 05/15/23 7:46 AM Result Value Glucose, POCT, B 197 (H) Site Capillary Glucose, POCT Collection Time: 05/15/23 2:04 PM Result Value Glucose, POCT, B 177 (H) Site Capillary Last Intake 3-4 hours Cultures: Results for orders placed or performed during the hospital encounter of 05/11/23 (from the past 72 hour(s)) HCV RNA Pt Source, Serum Specimen: Blood, Venous Result Value HCV RNA Pt Source, S Undetected HBs Antigen Patient Source Specimen: Blood, Venous Result Value HBs Antigen Patient Source, S Negative HIV-1/-2 Ag and Ab PS, Plasma Specimen: Blood, Venous Result Value HIV-1/-2 Ag and Ab PS, P Negative HIV-1/HIV-2 Ab Rapid Pt Source Specimen: Blood, Venous Result Value HIV-1/HIV-2 Ab Rapid Pt Source, B Negative Physical Exam General: Alert and oriented, no acute distress Cardiopulmonary: unlabored breathing on room air Abdomen: soft, nontender, nondistended. Surgical incision looks clean, dry and intact. Drains: None Diagnostics: MICROBIOLOGY: No results found for this visit on 05/11/23 (from the past 72 hour(s)). IMAGING: Imaging was independently reviewed. No results found. Assessment #1 Chronic Kidney Disease (CKD), Stage 3a Glomerular Filtration Rate (GFR) 45 To 59 (HCC) #2 Morbid Obesity Body Mass Index 50.0-59.9 Adult (HCC) #3 Hypertension And Chronic Kidney Disease Stage 3 (HCC) #4 Apnea Sleep Obstructive #5 Depression Major Recurrent (HCC) #6 Hypothyroidism #7 Other Hyperlipidemia #8 Diabetes Mellitus Type 2 Peripheral Neuropathy (HCC) #9 Tachycardia Atrial Paroxysmal (HCC) #10 Debility #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 #12 Malignant Neoplasm Of Colon Ascending (HCC) #13 Malignant Neoplasm Of Colon (HCC) #14 Repeated Falls Patient is postop day 3 today. He has evidence of return of bowel function. He is awaiting return to care facility on Tuesday. We will send COVID swab test today before he leaves for the care facilitytomorrow. PLAN: Discharge tomorrow COVID swab test Ambulation and activity as tolerated Continue ERP Patient is being cared for by Dr. Clifton service. Please page the service if you have any questionsor concerns. Carole WhittS PGY-1 General Surgery UCTION PLANNER SCHEDULER * Jean Stock M.B.B.S. - 05/14/2023 8:00 AM CST PROGRESS NOTE Postop Day: 2 Days Post-Op Hospital Day: LOS: 3 days Zoltan Olivera is a 72-year-old male who is status post right hemicolectomy for ascending colon tumor. SUBJECTIVE Patient was seen during the morning rounds today. Afebrile and hemodynamically stable. No acute events overnight. He is currently awaiting return to care facility on Tuesday. No acute concerns at thismoment. Good oral intake. Optimal urine output. Has evidence of return of bowel function. OBJECTIVE Vitals Temperature: [36.4 ??C-36.9 ??C] 36.9 ??C Resp Rate: [15-18] 16 Blood Pressure: (127-147)/(60-77) 129/60 SpO2: [93 %-100 %] 98 % Pulse Rate: [61-67] 61 I/O Intake/Output Summary (Last 24 hours) at 05/14/20231955 Last data filed at 05/14/2023 1636 Gross per 24 hour Intake -- Output 1500 ml Net -1500 ml Labs Recent Results (from the past 24 hour(s)) Glucose, POCT Collection Time: 05/13/23 10:05 PM Result Value Glucose, POCT, B 258 (H) Site Capillary Last Intake > 4 hours Glucose, POCT Collection Time: 05/14/23 7:33 AM Result Value Glucose, POCT, B 178 (H) Site Capillary Last Intake > 4 hours Glucose, POCT Collection Time: 05/14/23 12:13 PM Result Value Glucose, POCT, B 189 (H) Site Capillary Last Intake 3-4 hours Glucose, POCT Collection Time: 05/14/23 1:51 PM Result Value Glucose, POCT, B 184 (H) Site Capillary Last Intake 3-4 hours Glucose, POCT Collection Time: 05/14/23 4:04 PM Result Value Glucose, POCT, B 226 (H) Site Capillary Cultures: Results for orders placed or performed during the hospital encounter of 05/11/23 (from the past 72 hour(s)) HCV RNA Pt Source, Serum Specimen: Blood, Venous Result Value HCV RNA Pt Source, S Undetected HBs Antigen Patient Source Specimen: Blood, Venous Result Value HBs Antigen Patient Source, S Negative HIV-1/-2 Ag and Ab PS, Plasma Specimen: Blood, Venous Result Value HIV-1/-2 Ag and Ab PS, P Negative HIV-1/HIV-2 Ab Rapid Pt Source Specimen: Blood, Venous Result Value HIV-1/HIV-2 Ab Rapid Pt Source, B Negative Physical Exam General: Alert and oriented, no acute distress Cardiopulmonary: unlabored breathing on room air Abdomen: soft, nontender, nondistended. Surgical incision looks clean, dry and intact. Drains: None Diagnostics: MICROBIOLOGY: No results found for this visit on 05/11/23 (from the past 72 hour(s)). IMAGING: Imaging was independently reviewed. No results found. Assessment #1 Chronic Kidney Disease (CKD), Stage 3a Glomerular Filtration Rate (GFR) 45 To 59 ([facility]) #2 Morbid Obesity Body Mass Index 50.0-59.9 Adult (HCC) #3 Hypertension And Chronic Kidney Disease Stage 3 (HCC) #4 Apnea Sleep Obstructive #5 Depression Major Recurrent (HCC) #6 Hypothyroidism #7 Other Hyperlipidemia #8 Diabetes Mellitus Type 2 Peripheral Neuropathy (HCC) #9 Tachycardia Atrial Paroxysmal (HCC) #10 Debility #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 #12 Malignant Neoplasm Of Colon Ascending (HCC) #13 Malignant Neoplasm Of Colon (HCC) #14 Repeated Falls Patient is postop day 3 today. He has evidence of return of bowel function. He is awaiting return to care facility on Tuesday. We will need COVID swab test sent tomorrow before his return to the care facility on Tuesday. PLAN: COVID swab test tomorrow Discharge Tuesday to care facility Ambulation and activity as tolerated Pain control Continue ERP Patient is being cared for by Dr. Clifton service. Please page the service if you have any questionsor concerns. Carole WhittS PGY-1 General Surgery UCTION PLANNER SCHEDULER * Jaziel Monk, R.N. - 05/13/2023 5:07 PM CST SUBJECTIVE washhouse worker continues to follow the patient for discharge planning needs. The patient will discharge back to [facility] upon discharge. The patient declined additional resources. Anticipated Needs Functional Status: bathing, dressing, mobility, meal preparation, medication setup/administration, housekeeping, and shopping Assistive Devices: BiPAP/CPAP/VPAP, cell phone, walker - front wheeled, and wheelchair - manual Services/Resources: Short term rehab. Modifications to home environment: None Transportation: wheelchair van Anticipated discharge destination: [facility] VISHNU Olivera is currently hospitalized at [facility] in room [id number]. Patient was not assessed at this time. ASSESSMENT / PLAN Assessment Those noted above appear to have insight into the patient's needs at this time and are planning appropriately for discharge needs. They report agreement with the below plan with no further questions at this time. Plan Patient to return [facility]. Transportation: The ride has been scheduled for 05/16/2023 @ 10:00AM with [employer] [phone]. The fare for this ride is $450.00, patient pay. Please have the patient contact [facility] forpayment prior to transport. The patient will be picked up from their hospital room. [facility] will providethe wheelchair to be used for transport. Destination - Admitted Since 05/11/2023 Service Provider Selected Services Address Phone Fax Patient Preferred [facility] [address] [place] [address] [facility] [id number] -- Contact: Nursing Patient has a paid bed hold. Facility cannot manage IV antibiotics. Facility cannot manage a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 sodium bicarbonate 650 mg tablet 05/11/2023 -- 03/07/23 -- Take 2 tablets (1,300 mg total) by mouth 3 (three) times a day. spironolactone (ALDACTONE) 25 mg tablet 05/11/2023 -- 04/27/23 -- Take 1 tablet (25 mg total) by mouth daily. tamsulosin (FLOMAX) 0.4 mg 24 hr capsule 05/10/2023 Self 05/27/14 -- Take 2 capsules by mouth at bedtime. UCTION PLANNER SCHEDULER documented in this encounter H&P Notes * Odilon Blair APRN, C.N.P., M.S.N. - 05/12/2023 6:24 AM CST INTERVAL HISTORY AND PHYSICAL PRE-PROCEDURE UPDATE H&P reviewed. The patient was examined and there are no significant changes to the H&P. Odilon Blair APRN, C.N.P., M.S.N. UCTION PLANNER SCHEDULER Source Note - Bonny Clifton M.B., B., M.Kacie. - 05/09/2023 3:00 PM PRODUCTION PLANNER SCHEDULER SUBJECTIVE CHIEF COMPLAINT / REASON FOR VISIT Zoltan Olivera is a 72 y.o. male presenting in referral from Kiki Victor,* for consultation in the evaluation of No chief complaint on file.. HISTORY OF PRESENT ILLNESS The following portions of the patient's history were reviewed and updated as appropriate: allergies, current medications, family history, medical history, social history, surgical history, and problem list. OBJECTIVE PHYSICAL EXAM Physical Exam ASSESSMENT / PLAN #1 Malignant Neoplasm Of Colon Ascending (HCC) #2 Diabetes Mellitus Type 2 Peripheral Neuropathy (HCC) #3 Apnea Sleep Obstructive #4 Chronic Kidney Disease (CKD), Stage 3a Glomerular Filtration Rate (GFR) 45 To 59 (HCC) #5 Hypothyroidism #6 Depression Major Recurrent (HCC) #7 Decline Functional Status #8 Morbid Obesity Body Mass Index 45.0-49.9 Adult (HCC) I had the pleasure of meeting with Zoltan today for the upcoming surgery. We discussed the procedure: Lap Right hemicolectomy Risks benefits and alternatives were explained as well as potential complications including but notlimited to infections, bleeding, injury to near by organ, and disruption of suture line. Yola-operative course and post-operative recovery were discussed Milestones to leave the hospital / dismissal were mentioned. Special considerations: Will need admission the day prior for pre-op optimization, transportation etc Questions answered. Kiki Salguero, Patrice Zambrano. UCTION PLANNER SCHEDULER * Odilon Blair APRN, C.N.P., M.S.N. - 05/11/2023 4:10 PM CST SUBJECTIVE CHIEF COMPLAINT / REASON FOR VISIT Zoltan Olivera is a 72 y.o. male who presents for evaluation of No chief complaint on file.. 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 Patient underwent a screening colonoscopy in January 2023 where a large mass in the cecum as wellas a polyp in the sigmoid colon was removed and returned as adenocarcinoma. He was seen in the colon and Rectal surgery Clinic on March 15, [address] Molina. At that time it was advised that hewould need to undergo operative resection of both of these tumors but due to his functional limitations and comorbidities he would not be served well from a quality of life standpoint. His primary goal is quality of life. Patient wanted to consider his options before moving forward with surgery. Prior to seeing Dr. Molina in Colorectal surgery Clinic patient was hospitalized for weakness and discharged to a long-term care facility. Patient stated that ever since he was hospitalized he has had problems with diarrhea. While hospitalized he had fevers and chills and the [facility] in [place] suspected he had sepsis and treated him with 2 weeks of Zosyn. Following this antibiotic he has had diarrhea. Due to this problem with diarrhea patient has decided that he would like to undergo surgery and is scheduled to undergo a laparoscopic right colectomy with Dr. Clifton on May 12, 2023. He presents to the clinic this evening to begin his bowel prep. Patient has a past medical history of BRITTNEY which he brought his CPAP to the hospital with him. He has no current cardiac concerns. He was told in the past he had atrial fibrillation from a cardiac Center in the [facility]. He was placed on Eliquis and followed up at [facility] where he was told that he does not have atrial fibrillation he has atrial tachycardia and was taken off Eliquis. He doeshave a history of kidney stones his last known problem with kidney stones was in February 2019. He does have type 2 diabetes with his last A1c in February 2023 with a result of 6.8. Patient also has known CKD3B, hyperlipidemia, hypertension, depression, severe lumbar spinal stenosis, and morbid obesity. He does require a walker to get around. He does have a history of falls. Approximately 4 fallsin the last 6 months. He stated that his legs randomly just go out on him due to his back. The planis for him to undergo spine surgery following his colon operation so he can get strong enough to beable to leave the skilled nursing care facility. He is a previous smoker and quit in 1984. He has no other toxic habits. He has had no problems with eating and drinking. The following portions of the patient's history were reviewed and updated as appropriate: allergies, current medications, family history, medical history, social history, surgical history, and problem list. REVIEW OF SYSTEMS Constitutional: - Negative for fatigue, fever, loss of appetite, night sweats, weight gain of more than 10 pounds and weight loss of more than 10 pounds. Respiratory: - Negative for coughing up blood, coughing up mucus (phlegm), dry cough, shortness of breath and wheezing. Cardiovascular: - Negative for chest pain, pressure or tightness, swelling in the legs or feet, rapid or flutteringheart beat, pain in the calf muscles when walking, shortness of breath when lying flat and concernsfor appearing blue or pale. Gastrointestinal: Positive for diarrhea. - Negative for abdominal (belly) pain or cramping, constipation, heartburn, nausea, vomiting and difficulty swallowing. Genitourinary: - Negative for incontinence, difficulty urinating, pain with urination and frequent urination. Musculoskeletal: Positive for back pain and muscle pain/stiffness. Neurological: Positive for loss of balance or tendency to fall easily and weakness in arms or legs. - Negative for light-headedness, numbness or shooting pain in hands, arms, legs, or feet, headaches, blackouts and slurred speech. OBJECTIVE PHYSICAL EXAM Constitutional Appearance: He is well-developed. Pulmonary Effort: Pulmonary effort is normal. Abdominal Palpations: Abdomen is soft. Tenderness: There is no abdominal tenderness. Skin General: Skin is warm and moist. Psychiatric Attention and Perception: Attention normal. Mood and Affect: Mood normal. Speech: Speech normal. Behavior: Behavior normal. Thought Content: Thought content normal. Cognition and Memory: Cognition normal. Judgment: Judgment normal. ASSESSMENT / PLAN #1 Chronic Kidney Disease (CKD), Stage 3a Glomerular Filtration Rate (GFR) 45 To 59 ([facility]) #2 Morbid Obesity Body Mass Index 45.0-49.9 Adult ([facility]) #3 Hypertension And Chronic Kidney Disease Stage 3 ([facility]) #4 Apnea Sleep Obstructive #5 Depression Major Recurrent ([facility]) #6 Hypothyroidism #7 Other Hyperlipidemia #8 Diabetes Mellitus Type 2 Peripheral Neuropathy ([facility]) #9 Tachycardia Atrial Paroxysmal ([facility]) #10 Debility #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 He can have a clear liquid diet until midnight and then he will be NPO. The plan is for him to go to the operating room tomorrow with Dr. Clifton. UCTION PLANNER SCHEDULER documented in this encounter Consult Notes * Tamir Hall R.N. - 05/12/2023 10:47 AM CSTAssociated Order(s): IP CONSULT TO CARE MANAGEMENT Discharge Planning Assessment SUBJECTIVE Assessment Information Referral Source: Provider/Service Referral Reason: Discharge Planning Primary Language: Yemeni Service Plumber Services Used: No Person(s) present during interview: Person(s) Present During Interview: patient History of Present Illness #1 Chronic Kidney Disease (CKD), Stage 3a Glomerular Filtration Rate (GFR) 45 To 59 (HCC) #2 Morbid Obesity Body Mass Index 50.0-59.9 Adult (HCC) #3 Hypertension And Chronic Kidney Disease Stage 3 (HCC) #4 Apnea Sleep Obstructive #5 Depression Major Recurrent (HCC) #6 Hypothyroidism #7 Other Hyperlipidemia #8 Diabetes Mellitus Type 2 Peripheral Neuropathy (HCC) #9 Tachycardia Atrial Paroxysmal (HCC) #10 Debility #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 #12 Malignant Neoplasm Of Colon Ascending (HCC) #13 Malignant Neoplasm Of Colon (HCC) #14 Repeated Falls Social History Marital Status: Finance/Insurance Primary insurance: MEDICARE A AND B Secondary insurance: UrGift benefits: No Advance Directives Legal Decision Maker: Self Advance Directives: N/A Advance Directives Status: None on file OBJECTIVE Baseline Functional Status Baseline Activities of Daily Living Mobility: Requires aide of device Dressing: Needs assistance Feeding: Independent Bathing: Needs assistance Grooming: Independent Toileting: Independent Behavior: Appropriate, Cooperative Communication: Talks, Understands Yemeni Shopping: Needs assistance Medication Management: Needs assistance Housekeeping: Needs assistance Meal Prep: Needs assistance Assistive Devices: BiPAP/CPAP/VPAP, Cellphone, Walker - front wheeled, Wheelchair - manual Transportation: Wheelchair van Managing Finances: Independent Baseline Services/Resources Primary care clinic and provider: Eli Rondon APRN, C.N.P., R.N. Additional Resources: n/a Anticipated Needs Functional Status: Bathing, Dressing, Mobility, Medication set- up/administration, Meal preparation,Housekeeping, Shopping Assistive Devices: BiPAP/CPAP/VPAP, Cellphone, Walker - front wheeled, Wheelchair - manual Anticipated Modifications to the Patient's Home: None Transportation Needs: Wheelchair van Does the patient need discharge transport arranged?: Yes Has discharge transport been arranged?: No What day is the transport expected?: 05/16/23 [facility]ticipated [facility] Facility ASSESSMENT / PLAN Assessment: The washhouse worker met with Zoltan Olivera to discuss his current hospitalization and home going needs. The patient was unaccompanied. The patient was a reliable historian. The role of washhouse worker was reviewed. The patient reviewed his prior level of care and support system. The patient receives support from his and children. 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 The patient described his living situation as SNF at this time. Patient has been in the SNF for twoweeks now for OT/PT therapy regarding frequent falls at home. The facility has been providing meals, medications, assist with showering and uses a walker for mobility. If he needs to travel more [id number] feet , he uses the W/C. Zoltan is able to do most of his ADLs on his own. Zoltan also uses a CPAP without oxygen. washhouse worker discussed the patient's potential needs at dismissal based on their home setting, previous needs and responsibilities, homebound status, and relevant assessments with the patient. The patient will be safe and supported to return to a SNF when medically ready. Support will be provided by family. The patient demonstrated understanding when discussing his home goingplans and anticipated needs. Zoltan anticipates returning to the SNF for continued PT/OT, to recoup from his surgery and is anticipating spinal surgery in May if able. At this time, the care team anticipates the patient requires the following service(s) to be reconnected: intermediate facility. The patient identified the following as their current vendor(s): [facility]. After reviewing the patient's chart and meeting with the patient, the washhouse worker deemed the LACE+/readmission questions were not necessary. The patient reports understanding that he will dismiss from the hospital early next week. Pending hospital course and medical readiness, no barriers to dismissal have been identified at this time. Plan: The patient agrees with the following plan. Patient's anticipated discharge disposition is: [facility] Facility Reconnected: [facility]. Transportation upon dismissal will be Care Management arranged--please arrange w/c transport . washhouse worker recommended nothing at this time. washhouse worker provided information regarding the dismissal process. washhouse worker placed or requested the following hospital-based consult orders and/or referrals: None. washhouse worker will continue to assess for homegoing needs with the interdisciplinary team. washhouse worker encouraged the patient to reach out with any questions/concerns. Patient to return to: Destination - Admitted Since 05/11/2023 Service Provider Selected Services Address Phone Fax Patient Preferred [facility] [address] [place] [address] -- Contact: Nursing Patient has a paid bed hold. Facility cannot manage IV antibiotics. Facility cannot manage a wound vac. Facility cannot accept weekend readmissions. COVID screening needed before patient can return: yes, guidelines required: within 24 hrs Facility prefers patient return by 2 pm. Facility oxygen provider is [facility] (phone [phone], fax [phone]) . Was the patient on oxygen at your facility: no Transportation to be provided by wheelchair van transport. CASE MANAGEMENT: to arrange transportation and transport oxygen if needed. NURSING: Complete documentation in the Discharge Navigator including Nursing Report Info and Facility/Next Level of Care Info Contact facility to give report on morning of discharge Send required packet of dismissal information with patient, including After Visit Summary and advance directive. If transport oxygen is needed, work with primary service and respiratory therapy to obtain an oxygen prescription. PRIMARY SERVICE: Provide written prescriptions for all narcotics If transport oxygen is needed, work with nursing and respiratory therapy to complete an oxygen prescription. After Visit Summary to include: All discharge medications including dosage, times for administration, diagnosis, and stop date. Ongoing care - wound care, infection precautions and phone numbers to call. CASE MANAGEMENT: Reviewed patient's insurance coverage for the services noted above. The patient appear(s) to have an understanding of this. Will continue to follow and assist if needs arise. PCP: Eli Rondon APRN, C.N.P., R.N. Pharmacy: N/A Signed by: Tamir Hall R.N. 05/12/2023 UCTION PLANNER SCHEDULER documented in this encounter Nursing Notes * Dontae Hauser R.N. - 05/16/2023 10:24 AM CST Shift Goals: Clinical Goals for the Shift: Patient will ambulate safely, receive DC education, and be able to demonstrate adequate knowledge for DC Identify possible barriers to meeting goals/advancing plan of care: None. End of Shift Summary: Patient ambulates safely with one assist. Patient actively participates in DCeducation and is able to demonstrate adequate knowledge for DC. All questions and concerns addressed at bedside. With one assist, patient prepares DC packing personal belongings, putting on compressing socks, and would care on pannus regions bilaterally. Patient uses personal wheelchair and walker to transport. The transport personnel requests the assistance from the primary nurse to accompany the patient to the transport vehicle due to the amount of belongings. Patient belongings and paperworksent along with the patient. Paperwork fax[place] by [place] [facility] [place]. Problem: PAIN - ADULT Goal: PT VERBALIZES/DEMONSTRATES ADEQUATE COMFORT LEVEL OR BASELINE Outcome: Adequate for Discharge Problem: KNOWLEDGE DEFICIT Goal: Patient/family/caregiver demonstrates understanding of disease process, treatment plan, medications, and discharge instructions Outcome: Adequate for Discharge Problem: INFECTION - ADULT Goal: Absence of infection during hospitalization Outcome: Adequate for Discharge Problem: SKIN/TISSUE INTEGRITY Goal: Skin/Tissue integrity maintained or improved Outcome: Adequate for Discharge Goal: Oral and Nasal mucous membranes remain intact Outcome: Adequate for Discharge Problem: SAFETY ADULT Goal: Maintain a safe environment Outcome: Adequate for Discharge Problem: DISCHARGE PLANNING Goal: Patient discharge needs identified Outcome: Adequate for Discharge Problem: SAFETY ADULT - RISK FOR FALL AND OR FALL INJURY Goal: Patient remains free from fall/fall injury Outcome: Adequate for Discharge Problem: POTENTIAL OR ACTUAL PRESSURE INJURY-ADULT Goal: Manage sensory Perception deficits to maintain and/or improve skin integrity Outcome: Adequate for Discharge Goal: Maintain optimal skin moisture to ensure or improve skin integrity Outcome: Adequate for Discharge Goal: Achieve optimal activity and/or mobility to maintain or improve skin integrity Outcome: Adequate for Discharge Goal: Nutrient intake appropriate for improving, restoring or maintaining skin integrity Outcome: Adequate for Discharge Goal: Minimize friction and/or shear to maintain or improve skin integrity Outcome: Adequate for Discharge Problem: Compromised Skin Integrity Goal: Skin/Tissue integrity maintained or improved Outcome: Adequate for Discharge Goal: Oral and Nasal mucous membranes remain intact Outcome: Adequate for Discharge Goal: Incisions, wounds, or drain sites healing without S/S of infection Outcome: Adequate for Discharge UCTION PLANNER SCHEDULER * Nemo Edwards R.N. - 05/14/2023 7:07 AM CST Shift Goals: Clinical Goals for the Shift: Pt will remain safe and report adequate rest. Identify possible barriers to meeting goals/advancing plan of care: none. End of Shift Summary: Patient used CPAP overnight and reported adequate sleep. Patient remained safe by using gait belt and walker to ambulate to and from bathroom. Problem: PAIN - ADULT Goal: PT VERBALIZES/DEMONSTRATES ADEQUATE COMFORT LEVEL OR BASELINE 05/14/2023706 by Nemo Edwards R.N. Outcome: Progressing 05/14/2023632 by Nemo Edwards R.N. Outcome: Progressing Problem: KNOWLEDGE DEFICIT Goal: Patient/family/caregiver demonstrates understanding of disease process, treatment plan, medications, and discharge instructions 05/14/2023706 by Nemo Edwards R.N. Outcome: Progressing 05/14/2023632 by Nemo Edwards R.N. Outcome: Progressing Problem: INFECTION - ADULT Goal: Absence of infection during hospitalization 05/14/2023706 by Nemo Edwards RHaja. Outcome: Progressing 05/14/2023632 by Nemo Edwards RHaja. Outcome: Progressing Problem: SKIN/TISSUE INTEGRITY Goal: Skin/Tissue integrity maintained or improved 05/14/2023706 by Nemo Edwards RHaja. Outcome: Progressing 05/14/2023632 by Nemo Edwards RAjitN. Outcome: Progressing Goal: Oral and Nasal mucous membranes remain intact 05/14/2023706 by Nemo Edwards RAjitN. Outcome: Progressing 05/14/2023632 by Nemo Edwards RAjitN. Outcome: Progressing Problem: SAFETY ADULT Goal: Maintain a safe environment 05/14/2023706 by Nemo Edwards R.N. Outcome: Progressing 05/14/2023632 by Nemo Edwards RAjitN. Outcome: Progressing Problem: DISCHARGE PLANNING Goal: Patient discharge needs identified 05/14/2023706 by Nemo Edwards R.N. Outcome: Progressing 05/14/2023632 by Nemo Edwards R.N. Outcome: Progressing Problem: SAFETY ADULT - RISK FOR FALL AND OR FALL INJURY Goal: Patient remains free from fall/fall injury 05/14/2023706 by Nemo Edwards R.N. Outcome: Progressing 05/14/2023632 by Nemo Edwards R.N. Outcome: Progressing Problem: POTENTIAL OR ACTUAL PRESSURE INJURY-ADULT Goal: Manage sensory Perception deficits to maintain and/or improve skin integrity 05/14/2023706 by Nemo Edwards R.N. Outcome: Progressing 05/14/2023632 by Nemo Edwards R.N. Outcome: Progressing Goal: Maintain optimal skin moisture to ensure or improve skin integrity 05/14/2023706 by Nemo Edwards R.N. Outcome: Progressing 05/14/2023632 by Nemo Edwards R.N. Outcome: Progressing Goal: Achieve optimal activity and/or mobility to maintain or improve skin integrity 05/14/2023706 by Nemo Edwards RHaja. Outcome: Progressing 05/14/2023632 by Nemo Edwards R.N. Outcome: Progressing Goal: Nutrient intake appropriate for improving, restoring or maintaining skin integrity 05/14/2023706 by Nemo Edwards RHaja. Outcome: Progressing 05/14/2023632 by Nemo Edwards RHaja. Outcome: Progressing Goal: Minimize friction and/or shear to maintain or improve skin integrity 05/14/2023706 by Nemo Edwards RHaja. Outcome: Progressing 05/14/2023632 by Nemo Edwards R.N. Outcome: Progressing Problem: POTENTIAL OR ACTUAL PRESSURE INJURY-ADULT Goal: Maintain optimal skin moisture to ensure or improve skin integrity 05/14/2023706 by Nemo Edwards RHaja. Outcome: Progressing 05/14/2023632 by Nemo Edwards R.N. Outcome: Progressing Problem: Compromised Skin Integrity Goal: Skin/Tissue integrity maintained or improved 05/14/2023706 by Jerry, Nemo M, R.N. Outcome: Progressing 05/14/2023 0633 by Nemo Edwards R.N. Outcome: Progressing Goal: Oral and Nasal mucous membranes remain intact 05/14/2023 0707 by Nemo Edwards R.N. Outcome: Progressing 05/14/2023 0633 by Nemo Edwards R.N. Outcome: Progressing Goal: Incisions, wounds, or drain sites healing without S/S of infection 05/14/2023 0707 by Nemo Edwards R.N. Outcome: Progressing 05/14/2023 0633 by Nemo Edwards R.N. Outcome: Progressing UCTION PLANNER SCHEDULER * Aj Ceja R.N. - 05/13/2023 9:43 PM CST Shift Goals: Clinical Goals for the Shift: Return of bowel function and tolerate diet Identify possible barriers to meeting goals/advancing plan of care: none End of Shift Summary: Patient passing gas and stool and tolerating diet. New wound care orders initiated to address IAD. Electronically signed by: Aj Ceja R.N. 05/13/23 9:44 PM PRODUCTION PLANNER SCHEDULER Problem: PAIN - ADULT Goal: PT VERBALIZES/DEMONSTRATES ADEQUATE COMFORT LEVEL OR BASELINE Outcome: Progressing Problem: KNOWLEDGE DEFICIT Goal: Patient/family/caregiver demonstrates understanding of disease process, treatment plan, medications, and discharge instructions Outcome: Progressing Problem: INFECTION - ADULT Goal: Absence of infection during hospitalization Outcome: Progressing Problem: SKIN/TISSUE INTEGRITY Goal: Skin/Tissue integrity maintained or improved Outcome: Progressing Goal: Oral and Nasal mucous membranes remain intact Outcome: Progressing Problem: SAFETY ADULT Goal: Maintain a safe environment Outcome: Progressing Problem: DISCHARGE PLANNING Goal: Patient discharge needs identified Outcome: Progressing Problem: SAFETY ADULT - RISK FOR FALL AND OR FALL INJURY Goal: Patient remains free from fall/fall injury Outcome: Progressing Problem: POTENTIAL OR ACTUAL PRESSURE INJURY-ADULT Goal: Manage sensory Perception deficits to maintain and/or improve skin integrity Outcome: Progressing Goal: Maintain optimal skin moisture to ensure or improve skin integrity Outcome: Progressing Goal: Achieve optimal activity and/or mobility to maintain or improve skin integrity Outcome: Progressing Goal: Nutrient intake appropriate for improving, restoring or maintaining skin integrity Outcome: Progressing Goal: Minimize friction and/or shear to maintain or improve skin integrity Outcome: Progressing Problem: Compromised Skin Integrity Goal: Skin/Tissue integrity maintained or improved Outcome: Progressing Goal: Oral and Nasal mucous membranes remain intact Outcome: Progressing Goal: Incisions, wounds, or drain sites healing without S/S of infection Outcome: Progressing Problem: Incontinence and/or Moisture Goal: Skin integrity is maintained or improved Outcome: Progressing UCTION PLANNER SCHEDULER * Sydney Damico R.N. - 05/12/2023 10:46 PM CST Shift Goals: Clinical Goals for the Shift: Maintain safety from falls/injury, pain control Identify possible barriers to meeting goals/advancing plan of care: post-op pain End of Shift Summary: Pt remained safe from falls or injury with use of call- light. Pt required 2x staff assistance for ambulation between bed and toilet and had 2 loose stools. Pain was fairly well controlled with oral medications, and pt tolerated regular diet with no nausea/vomiting. Goals met. Problem: PAIN - ADULT Goal: PT VERBALIZES/DEMONSTRATES ADEQUATE COMFORT LEVEL OR BASELINE Outcome: Progressing Problem: KNOWLEDGE DEFICIT Goal: Patient/family/caregiver demonstrates understanding of disease process, treatment plan, medications, and discharge instructions Outcome: Progressing Problem: INFECTION - ADULT Goal: Absence of infection during hospitalization Outcome: Progressing Problem: SKIN/TISSUE INTEGRITY Goal: Skin/Tissue integrity maintained or improved Outcome: Progressing Goal: Oral and Nasal mucous membranes remain intact Outcome: Progressing Problem: SAFETY ADULT Goal: Maintain a safe environment Outcome: Progressing Problem: DISCHARGE PLANNING Goal: Patient discharge needs identified Outcome: Progressing Problem: SAFETY ADULT - RISK FOR FALL AND OR FALL INJURY Goal: Patient remains free from fall/fall injury Outcome: Progressing Problem: POTENTIAL OR ACTUAL PRESSURE INJURY-ADULT Goal: Manage sensory Perception deficits to maintain and/or improve skin integrity Outcome: Progressing Goal: Maintain optimal skin moisture to ensure or improve skin integrity Outcome: Progressing Goal: Achieve optimal activity and/or mobility to maintain or improve skin integrity Outcome: Progressing Goal: Nutrient intake appropriate for improving, restoring or maintaining skin integrity Outcome: Progressing Goal: Minimize friction and/or shear to maintain or improve skin integrity Outcome: Progressing Problem: Compromised Skin Integrity Goal: Skin/Tissue integrity maintained or improved Outcome: Progressing Goal: Oral and Nasal mucous membranes remain intact Outcome: Progressing Goal: Incisions, wounds, or drain sites healing without S/S of infection Outcome: Progressing Problem: Incontinence and/or Moisture Goal: Skin integrity is maintained or improved Outcome: Progressing UCTION PLANNER SCHEDULER * Leila Rivero R.N. - 05/12/2023 5:16 AM CST Shift Goals: Clinical Goals for the Shift: VSS, finish bowel prep Identify possible barriers to meeting goals/advancing plan of care: Pt finished bowel prep at approx 0500. No BM as of that time. Was passing flatus End of Shift Summary: To OR today for colectomy with anastomosis Problem: KNOWLEDGE DEFICIT Goal: Patient/family/caregiver demonstrates understanding of disease process, treatment plan, medications, and discharge instructions Outcome: Progressing Problem: SKIN/TISSUE INTEGRITY Goal: Skin/Tissue integrity maintained or improved Outcome: Progressing Goal: Oral and Nasal mucous membranes remain intact Outcome: Progressing Problem: SAFETY ADULT Goal: Maintain a safe environment Outcome: Progressing Problem: SAFETY ADULT - RISK FOR FALL AND OR FALL INJURY Goal: Patient remains free from fall/fall injury Outcome: Progressing Problem: DISCHARGE PLANNING Goal: Patient discharge needs identified Outcome: Progressing UCTION PLANNER SCHEDULER documented in this encounter OR Notes * Op Note - Bonny Clifton M.B., B., M.D. - 05/12/2023 11:28 AM PRODUCTION PLANNER SCHEDULER Pre-op Diagnosis Malignant Neoplasm Of Colon Ascending (HCC) Post-op Diagnosis Malignant Neoplasm Of Colon Ascending (HCC) Youth Counselor A supply assistant actively participated and was necessary for one or more of the following: opening, exposure and visualization during the case, maintaining hemostasis, wound closure resulting in itssafe and expeditious completion. Findings As expected. Complications None Operative Note Narrative Oncologic resection Location: right colon Vessel(s) ligated: ileocolic artery and vein and right branch off middle colic artery and vein Was central vascular ligation performed: Yes. The abdomen was insufflated using Veress needle at the left subcostal location. The abdominal cavity was accessed using Optiview in the left upper quadrant.. Further laparoscopic ports were placed under direct vision in the left lower quadrant and umbilicus.. The right colon was dissected from medial to lateral under the ileocolic pedicle as well as the hepatic flexure and proximal transverse colon. During dissection the duodenum, adjacent portion o the pancreas and right ureter were kept safe and away from harm. The ileocolic pedicle was then divided centrally using LigaSure. The mesentery towards the future transection points on the proximal transverse colon and small bowel was divided with LigaSure. The bowel was then divided using Endo-YANELIS 60 mmload. The lateral attachments were then divided and the specimen was placed in the pelvis. The bowel was then aligned for isoperistaltic side to side functional end to end ileocolic anastomosis; common channel created using Endo-Yanelis 60 mm stevens load, and common enterotomy closed using running 2-0 Quill suture. TAP block was then done using a mixture of Exparel and 0.25% Plaine Marcaine. Then, left upper quadrant incision was created and wound protected was placed, followed by exteriorizing the specimen. The fascia was closed with running 0 PDS The skin was closed with deep dermal inverted 3-0 vicryl suture. The patient tolerated the procedure, was extubated and transported to the recovery unit. Commission on Cancer Critical Element Summary Tumor location: Ascending colon Extent of colon and vascular resection: Right hemicolectomy - ileocolic, right colic (if present) Kiki Salguero, Juan Manuel, MJhon. UCTION PLANNER SCHEDULER * Brief Op Note - Tania Turner M.B., Juan Manuel, B.A.O. - 05/12/2023 11:28 AM CST Pre-op Diagnosis Malignant Neoplasm Of Colon Ascending (HCC) Post-op Diagnosis Malignant Neoplasm Of Colon Ascending (HCC) Findings As expected. Complications Nil Procedure Lap right hemicolectomy with intracorporeal ileocolic anastomosis Extraction site via LUQ port which was extended to 6cm to accommodate size of bulky tumour and mesentery/omentum Fascia closed in 2 layers 1 PDS 3-0 vicryl and dermabond to skin ERP pathway post-op Kiki Morris, BTelma., B.A.O. UCTION PLANNER SCHEDULER documented in this encounter Miscellaneous Notes * Documentation Clarification - Delma Ramirez APRN, C.N.P., D.N.P. 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 Small vessel extramural large venous lymphovascular invasion and perineural invasion are present. <LCI> QUERY TEXT: DOCUMENTATION CLARIFICATION REQUEST Please clarify/specify the appropriate diagnosis supported in the clinical indicators below. 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 Small vessel extramural large venous lymphovascular invasion and perineural invasion are present. Other (explain) Clinically unable to determine (explain) Clinical Indicators/Risk Factors/Treatment: - 05/11 H&P - NAjit Blair, STOCK PATCHER: 72 y.o. male admitted with synchronous cecal and sigmoid colon cancer. - 05/12 Pathology (reported 05/18): Final Diagnosis: A. Colon, cecum, appendix, terminal ileum, right hemicolectomy: Invasive poorly differentiated adenocarcinoma, forming a 6.1 x 4.8 x 3.1 cm mass in the proximal ascending colon, arising in a tubular adenoma with high-grade dysplasia and extending to the serosa. The surgical resection margins are negative for tumor. Multiple (2 of 14) lymph nodes are positive for metastatic carcinoma. See synoptic report. Synoptic Report Tumor Site: Ascending colon Histologic Type: Adenocarcinoma Lymphovascular Invasion: Present, small vessel, extramural large venous Perineural Invasion: Present Regional Lymph Nodes Status Tumor Present in Regional Lymph Node(s) Number of Lymph Nodes with Tumor: 2 Number of Lymph Nodes Examined: 14 Please contact me if you have questions. Thank you, Shana Luis, SATELLITE SPECIALIST, CCS, CCDS Clinical Documentation [facility] Query created by: FRANK Cooper CCS, CCDS 05/20/2023 03:02 PM PRODUCTION PLANNER SCHEDULER </LCI> UCTION PLANNER SCHEDULER * Hospital Course - Delma Ramirez APRN, C.N.P., D.N.P. - 05/11/2023 4:15 PM CST PRIMARY DIAGNOSIS: Malignant Neoplasm of Colon, preliminary pathology with positive nodes PROCEDURE: 05/12/2022 Procedure(s) (LRB): LAPAROSCOPIC COLECTOMY RIGHT, ANASTOMOSIS. (Right) PATHOLOGY: Your surgical pathology is pending at the time of discharge. You will be notified of your pathology in approximately 5 business days. If someone does not notify you, please call your surgeons' office. INCISION ASSESSMENT: Clean, dry, and intact without signs of erythema or drainage at the time of discharge. DRAINS: No drain placed intraoperatively. and No drains in place at the time of discharge. ADDITIONAL DIAGNOSES/COMPLICATIONS/CHRONIC CONDITIONS ADDRESSED DURING HOSPITALIZATION: # Debility, baseline PT/OT consulted. Patient resides in long-term care facility, case management assisted with coordination to return at discharge. # COVID positive, asymptomatic Routine COVID screening prior to return to SNF returned positive. No symptoms, no treatment started. # Caprini Score = 8 - 1 week Lovenox at discharge The patient is at high risk for postoperative DVT or PE. Mechanical AND chemoprophylaxis are recommended at the time of procedure and during postoperative hospitalization, as well as chemoprophylaxisat the time of hospital discharge, unless there are contraindications or risk of bleeding outweighsbenefits of chemoprophylaxis. UCTION PLANNER SCHEDULER documented in this encounter Plan of Treatment Not on file documented as of this encounter Procedures Procedure Name Priority Date/Time Associated Diagnosis Comments GLUCOSE POCT, B Routine 05/16/2023 9:35 AM PRODUCTION PLANNER SCHEDULER GLUCOSE POCT, B Routine 05/15/2023 9:10 PM PRODUCTION PLANNER SCHEDULER GLUCOSE POCT, B Routine 05/15/2023 4:41 PM PRODUCTION PLANNER SCHEDULER GLUCOSE POCT, B Routine 05/15/2023 2:04 PM PRODUCTION PLANNER SCHEDULER SARS COV-2 RNA, PCR, VARIES Routine 05/15/2023 9:10 AM PRODUCTION PLANNER SCHEDULER REMOTE OXIMETRY MONITORING CONT. Routine 05/15/2023 8:00 AM PRODUCTION PLANNER SCHEDULER GLUCOSE POCT, B Routine 05/15/2023 7:46 AM PRODUCTION PLANNER SCHEDULER GLUCOSE POCT, B Routine 05/14/2023 8:33 PM PRODUCTION PLANNER SCHEDULER REMOTE OXIMETRY MONITORING CONT. Routine 05/14/2023 8:01 PM PRODUCTION PLANNER SCHEDULER GLUCOSE POCT, B Routine 05/14/2023 4:04 PM PRODUCTION PLANNER SCHEDULER GLUCOSE POCT, B Routine 05/14/2023 1:51 PM PRODUCTION PLANNER SCHEDULER GLUCOSE POCT, B Routine 05/14/2023 12:13 PM PRODUCTION PLANNER SCHEDULER REMOTE OXIMETRY MONITORING CONT. Routine 05/14/2023 8:01 AM PRODUCTION PLANNER SCHEDULER GLUCOSE POCT, B Routine 05/14/2023 7:33 AM PRODUCTION PLANNER SCHEDULER GLUCOSE POCT, B Routine 05/13/2023 10:05 PM PRODUCTION PLANNER SCHEDULER REMOTE OXIMETRY MONITORING CONT. Routine 05/13/2023 8:00 PM PRODUCTION PLANNER SCHEDULER GLUCOSE POCT, B Routine 05/13/2023 3:10 PM PRODUCTION PLANNER SCHEDULER REMOTE OXIMETRY MONITORING CONT. Routine 05/13/2023 8:01 AM PRODUCTION PLANNER SCHEDULER GLUCOSE POCT, B Routine 05/13/2023 7:52 AM PRODUCTION PLANNER SCHEDULER GLUCOSE POCT, B Routine 05/13/2023 3:55 AM PRODUCTION PLANNER SCHEDULER REMOTE OXIMETRY MONITORING CONT. Routine 05/13/2023 12:51 AM PRODUCTION PLANNER SCHEDULER REMOTE OXIMETRY MONITORING CONT. Routine 05/13/2023 12:51 AM PRODUCTION PLANNER SCHEDULER REMOTE OXIMETRY MONITORING CONT. Routine 05/13/2023 12:51 AM PRODUCTION PLANNER SCHEDULER GLUCOSE POCT, B Routine 05/12/2023 8:33 PM PRODUCTION PLANNER SCHEDULER HIV-1/-2 AG AND AB PS, PLASMA STAT 05/12/2023 5:44 PM PRODUCTION PLANNER SCHEDULER HCV RNA PT SOURCE, S STAT 05/12/2023 5:44 PM PRODUCTION PLANNER SCHEDULER HIV-1/HIV-2 AB RAPID PT SOURCE, B STAT 05/12/2023 5:44 PM PRODUCTION PLANNER SCHEDULER HBS ANTIGEN PATIENT SOURCE STAT 05/12/2023 5:44 PM PRODUCTION PLANNER SCHEDULER GLUCOSE POCT, B Routine 05/12/2023 4:32 PM PRODUCTION PLANNER SCHEDULER MAYOCOMPLETE CRC PANEL Routine 3:47 PM PRODUCTION PLANNER SCHEDULER GLUCOSE POCT, B Routine 05/12/2023 1:47 PM PRODUCTION PLANNER SCHEDULER ADULT OXYGEN THERAPY Routine 05/12/2023 1:29 PM PRODUCTION PLANNER SCHEDULER SURGICAL PATHOLOGY, FROZEN LAB Routine 05/12/2023 12:49 PM PRODUCTION PLANNER SCHEDULER Malignant Neoplasm Of Colon Ascending (HCC) GLUCOSE POCT, B Routine 05/12/2023 11:26 AM PRODUCTION PLANNER SCHEDULER LAPAROSCOPIC COLECTOMY RIGHT WITH ANASTOMOSIS 05/12/2023 9:59 AM PRODUCTION PLANNER SCHEDULER Malignant Neoplasm Of Colon Ascending (HCC) GLUCOSE POCT, B Routine 05/12/2023 9:07 AM PRODUCTION PLANNER SCHEDULER GLUCOSE POCT, B Routine 05/11/2023 9:40 PM PRODUCTION PLANNER SCHEDULER GLUCOSE POCT, B Routine 05/11/2023 4:56 PM PRODUCTION PLANNER SCHEDULER ANTIBODY IDENTIFICATION Routine 05/11/19 3:18 PM PRODUCTION PLANNER SCHEDULER CBC WITH DIFFERENTIAL, B Routine 05/11/2023 3:18 PM PRODUCTION PLANNER SCHEDULER TYPE AND SCREEN Routine 05/11/2023 3:18 PM PRODUCTION PLANNER SCHEDULER HEMOGLOBIN A1C, B Routine 05/11/2023 3:1 8 PM PRODUCTION PLANNER SCHEDULER BASIC METABOLIC PANEL, S/P Routine 05/11/2023 3:18 PM PRODUCTION PLANNER SCHEDULER documented in this encounter Results * (ABNORMAL) Glucose, POCT (05/16/2023 9:35 AM PRODUCTION PLANNER SCHEDULER) Glucose, POCT, B 151(H) 70 - 140 mg/dL 05/16/2023 10:04 AM PRODUCTION PLANNER SCHEDULER PCDE Site Capillary 05/16/2023 10:04 AM PRODUCTION PLANNER SCHEDULER PCDE Last Intake > 4 hours 05/16/2023 10:04 AM PRODUCTION PLANNER SCHEDULER PCDE Blood 05/16/2023 9:35 AM PRODUCTION PLANNER SCHEDULER 05/16/2023 10:05 AM PRODUCTION PLANNER SCHEDULER Unknown Provider LAB POCT ORDERABLES- MANUAL Performing Organization Address City/[facility]/ZIP Co de Phone Number POC [facility] [address] [place], [place] [id number] [place] [address] PCDE [facility] [address] [place] [address] * (ABNORMAL) Glucose, POCT (05/15/2023 9:10 PM PRODUCTION PLANNER SCHEDULER) Glucose, POCT, B 238(H) 70 - 140 mg/dL 05/15/2023 9:15 PM PRODUCTION PLANNER SCHEDULER PCDE Site Capillary 05/15/2023 9:15 PM PRODUCTION PLANNER SCHEDULER PCDE Blood 05/15/2023 9:10 PM PRODUCTION PLANNER SCHEDULER 05/15/2023 9:15 PM PRODUCTION PLANNER SCHEDULER Unknown Provider LAB POCT ORDERABLES- MANUAL POC [facility] [address] [place] [address], [place] PCDE [facility] [address] [place] [address] * (ABNORMAL) Glucose, POCT (05/15/2023 4:41 PM PRODUCTION PLANNER SCHEDULER) Glucose, POCT, B 185(H) 70 - 140 mg/dL 05/15/2023 4:45 PM PRODUCTION PLANNER SCHEDULER PCDE Site Capillary 05/15/2023 4:45 PM PRODUCTION PLANNER SCHEDULER PCDE Last Intake 3-4 hours 05/15/2023 4:45 PM PRODUCTION PLANNER SCHEDULER PCDE Blood 05/15/2023 4:41 PM PRODUCTION PLANNER SCHEDULER 05/15/2023 4:45 PM PRODUCTION PLANNER SCHEDULER Unknown Provider LAB POCT ORDERABLES- MANUAL Performing Organization Address City/[facility]/ZIP Co de Phone Number POC [facility] [address] [place] [address], [place] PCDE [facility] [address] [place] [address] * (ABNORMAL) Glucose, POCT (05/15/2023 2:04 PM PRODUCTION PLANNER SCHEDULER) Glucose, POCT, B 177(H) 70 - 140 mg/dL 05/15/2023 2:08 PM PRODUCTION PLANNER SCHEDULER PCDE Site Capillary 05/15/2023 2:08 PM PRODUCTION PLANNER SCHEDULER PCDE Last Intake 3-4 hours 05/15/2023 2:08 PM PRODUCTION PLANNER SCHEDULER PCDE Blood 05/15/2023 2:04 PM PRODUCTION PLANNER SCHEDULER 05/15/2023 2:08 PM PRODUCTION PLANNER SCHEDULER Unknown Provider LAB POCT ORDERABLES- MANUAL POC [facility] [address] [place] [address], [place] PCDE [facility] [address] [place] [address] * (ABNORMAL) SARS CoV-2 RNA, PCR Asymptomatic (05/15/2023 9:10 AM PRODUCTION PLANNER SCHEDULER) SARS CoV-2 RNA, PCR, Source Swab, Nasopharynx 05/15/2023 11:55 PM PRODUCTION PLANNER SCHEDULER SDSC SARS CoV-2 RNA, PCR Detected(A) Undetected 05/15/2023 11:55 PM PRODUCTION PLANNER SCHEDULER SDS Comment: SARS-CoV-2 RNA present. ----ADDITIONAL INFORMATION---- This RT-PCR test has received Emergency Use Authorization (EUA) by the U.S. Food and Drug Administration and is used per roller coaster designer's instructions. Performance characteristics were verified by [facility] in a manner consistent with CLIA requirements. Visit the CDC website: https://www.cdc.gov/coronavirus/ for the most recent guidelines on Coronavirus testing. Fact Sheet for Healthcare Providers: https://www.fda.gov/media/034632/download Fact Sheet for Patients: https://www.fda.gov/media/710733/download Swab (Nasopharynx) 05/15/2023 9:10 AM PRODUCTION PLANNER SCHEDULER 05/15/2023 12:03 PM PRODUCTION PLANNER SCHEDULER Bonny Swanson B.Ch., M.D. LAB M ICROBIOLOGY - GENERAL ORDERABLES Performing Organization Address City/[facility]/ZIP Co de Phone Number [facility] [address] [place] [address] [facility] [address] [place] [address] [place] [address] * (ABNORMAL) Glucose, POCT (05/15/2023 7:46 AM PRODUCTION PLANNER SCHEDULER) Glucose, POCT, B 197(H) 70 - 140 mg/dL 05/15/2023 7:49 AM PRODUCTION PLANNER SCHEDULER PCDE Site Capillary 05/15/2023 7:49 AM PRODUCTION PLANNER SCHEDULER PCDE Blood 05/15/2023 7:46 AM PRODUCTION PLANNER SCHEDULER 05/15/2023 7:49 AM PRODUCTION PLANNER SCHEDULER Unknown Provider LAB POCT ORDERABLES- MANUAL Performing Organization Address City/[facility]/ZIP Co de Phone Number POC [facility] [address] [place] [address], [place] PCDE [facility] [address] [facility] [place] [address] * (ABNORMAL) Glucose, POCT (05/14/2023 8:33 PM PRODUCTION PLANNER SCHEDULER) Glucose, POCT, B 220(H) 70 - 140 mg/dL 05/14/2023 8:47 PM PRODUCTION PLANNER SCHEDULER PCDE Site Capillary 05/14/2023 8:47 PM PRODUCTION PLANNER SCHEDULER PCDE Blood 05/14/2023 8:33 PM PRODUCTION PLANNER SCHEDULER 05/14/2023 8:48 PM PRODUCTION PLANNER SCHEDULER Unknown Provider LAB POCT ORDERABLES- MANUAL Performing Organization Address City/[facility]/ZIP Co de Phone Number P[facility] [address] [place] [address], [place] PC[facility] [address] [place] [address] * (ABNORMAL) Glucose, POCT (05/14/2023 4:04 PM PRODUCTION PLANNER SCHEDULER) Glucose, POCT, B 226(H) 70 - 140 mg/dL 05/14/2023 4:47 PM PRODUCTION PLANNER SCHEDULER PCDE Site Capillary 05/14/2023 4:47 PM PRODUCTION PLANNER SCHEDULER PCDE Blood 05/14/2023 4:04 PM PRODUCTION PLANNER SCHEDULER 05/14/2023 4:47 PM PRODUCTION PLANNER SCHEDULER Unknown Provider LAB POCT ORDERABLES- MANUAL Performing Organization Address City/[facility]/ZIP Co de Phone Number P[facility] [address] [place] [address], [place] PC[facility] [address] [place] [address] * (ABNORMAL) Glucose, POCT (05/14/2023 1:51 PM PRODUCTION PLANNER SCHEDULER) Glucose, POCT, B 184(H) 70 - 140 mg/dL 05/14/2023 1:54 PM PRODUCTION PLANNER SCHEDULER PCDE Site Capillary 05/14/2023 1:54 PM PRODUCTION PLANNER SCHEDULER PCDE Last Intake 3-4 hours 05/14/2023 1:54 PM PRODUCTION PLANNER SCHEDULER PCDE Blood 05/14/2023 1:51 PM PRODUCTION PLANNER SCHEDULER 05/14/2023 1:54 PM PRODUCTION PLANNER SCHEDULER Unknown Provider LAB POCT ORDERABLES- MANUAL Performing Organization Address City/[facility]/ZIP Co de Phone Number [facility] [address] [place] [address], [place] PC[facility] [address] [place] [address] * (ABNORMAL) Glucose, POCT (05/14/2023 12:13 PM PRODUCTION PLANNER SCHEDULER) Glucose, POCT, B 189(H) 70 - 140 mg/dL 05/14/2023 12:21 PM PRODUCTION PLANNER SCHEDULER PCDE Site Capillary 05/14/2023 12:21 PM PRODUCTION PLANNER SCHEDULER PCDE Last Intake 3-4 hours 05/14/2023 12:21 PM PRODUCTION PLANNER SCHEDULER PCDE Blood 05/14/2023 12:1 3 PM PRODUCTION PLANNER SCHEDULER 05/14/2023 12:22 PM PRODUCTION PLANNER SCHEDULER Unknown Provider LAB POCT ORDERABLES- MANUAL Performing Organization Address City/[facility]/ZIP Co de Phone Number POC [facility] [address] [place] [address], [place] PC[facility] [address] [place] [address] * (ABNORMAL) Glucose, POCT (05/14/2023 7:33 AM PRODUCTION PLANNER SCHEDULER) Glucose, POCT, B 178(H) 70 - 140 mg/dL 05/14/2023 7:40 AM PRODUCTION PLANNER SCHEDULER PCDE Site Capillary 05/14/2023 7:40 AM PRODUCTION PLANNER SCHEDULER PCDE Last Intake > 4 hours 05/14/2023 7:40 AM PRODUCTION PLANNER SCHEDULER PCDE Blood 05/14/2023 7:33 AM PRODUCTION PLANNER SCHEDULER 05/14/2023 7:40 AM PRODUCTION PLANNER SCHEDULER Unknown Provider LAB POCT ORDERABLES- MANUAL Performing Organization Address City/[facility]/ZIP Co de Phone Number P[facility] [address] [place] [address], [place] PCDE [facility] [address] [place] [address] * (ABNORMAL) Glucose, POCT (05/13/2023 10:05 PM PRODUCTION PLANNER SCHEDULER) Glucose, POCT, B 258(H) 70 - 140 mg/dL 05/13/2023 10:22 PM PRODUCTION PLANNER SCHEDULER PCDE Site Capillary 05/13/2023 10:22 PM PRODUCTION PLANNER SCHEDULER PCDE Last Intake > 4 hours 05/13/2023 10:22 PM PRODUCTION PLANNER SCHEDULER PCDE Blood 05/13/2023 10:0 5 PM PRODUCTION PLANNER SCHEDULER 05/13/2023 10:23 PM PRODUCTION PLANNER SCHEDULER Unknown Provider LAB POCT ORDERABLES- MANUAL Performing Organization Address City/[facility]/ZIP Co de Phone Number P[facility] [address] [place] [address], [place] PC[facility] [address] [place] [address] * (ABNORMAL) Glucose, POCT (05/13/2023 3:10 PM PRODUCTION PLANNER SCHEDULER) Glucose, POCT, B 224(H) 70 - 140 mg/dL 05/13/2023 3:21 PM PRODUCTION PLANNER SCHEDULER PCDE Site Capillary 05/13/2023 3:21 PM PRODUCTION PLANNER SCHEDULER PCDE Blood 05/13/2023 3:10 PM PRODUCTION PLANNER SCHEDULER 05/13/2023 3:21 PM PRODUCTION PLANNER SCHEDULER Unknown Provider LAB POCT ORDERABLES- MANUAL Performing Organization Address City/[facility]/ZIP Co de Phone Number P[facility] [address] [place] [address], [place] PC[facility] [address] [place] [address] * (ABNORMAL) Glucose, POCT (05/13/2023 7:52 AM PRODUCTION PLANNER SCHEDULER) Glucose, POCT, B 304(H) 70 - 140 mg/dL 05/13/2023 7:54 AM PRODUCTION PLANNER SCHEDULER PCDE Site Capillary 05/13/2023 7:54 AM PRODUCTION PLANNER SCHEDULER PCDE Blood 05/13/2023 7:52 AM PRODUCTION PLANNER SCHEDULER 05/13/2023 7:55 AM PRODUCTION PLANNER SCHEDULER Unknown Provider LAB POCT ORDERABLES- MANUAL Performing Organization Address City/[facility]/ZIP Co de Phone Number P[facility] [address] [place] [address], [place] PC[facility] [address] [place] [address] * (ABNORMAL) Glucose, POCT (05/13/2023 3:55 AM PRODUCTION PLANNER SCHEDULER) Glucose, POCT, B 258(H) 70 - 140 mg/dL 05/13/2023 4:00 AM PRODUCTION PLANNER SCHEDULER PCDE Site Capillary 05/13/2023 4:00 AM PRODUCTION PLANNER SCHEDULER PCDE Last Intake 3-4 hours 05/13/2023 4:00 AM PRODUCTION PLANNER SCHEDULER PCDE Blood 05/13/2023 3:55 AM PRODUCTION PLANNER SCHEDULER 05/13/2023 4:01 AM PRODUCTION PLANNER SCHEDULER Unknown Provider LAB POCT ORDERABLES- MANUAL Performing Organization Address City/[facility] Co de Phone Number POC [facility] [address] [place] [address], [place] PCDE [facility] POC [address] [place] [address] * (ABNORMAL) Glucose, POCT (05/12/2023 8:33 PM PRODUCTION PLANNER SCHEDULER) Glucose, POCT, B 361(H) 70 - 140 mg/dL 05/12/2023 8:40 PM PRODUCTION PLANNER SCHEDULER PCDE Site Capillary 05/12/2023 8:40 PM PRODUCTION PLANNER SCHEDULER PCDE Last Intake 1-2 hours 05/12/2023 8:40 PM PRODUCTION PLANNER SCHEDULER PCDE Blood 05/12/2023 8:33 PM PRODUCTION PLANNER SCHEDULER 05/12/2023 8:40 PM PRODUCTION PLANNER SCHEDULER Unknown Provider LAB POCT ORDERABLES- MANUAL Performing Organization Address [facility] de Phone Number POC [facility] [address] [place] [address], [place] PCDE [facility] POC [address] [place] [address] * HIV-1/HIV-2 Ab Rapid Pt Source (05/12/2023 5:44 PM PRODUCTION PLANNER SCHEDULER) Pathologist [facility] [place] HIV-1/HIV-2 Ab Rapid Pt Source, B Negative Negative 05/12/2023 6:19 PM PRODUCTION PLANNER SCHEDULER METH Blood (Blood, Venous) 05/12/2023 5:44 PM PRODUCTION PLANNER SCHEDULER 05/12/2023 5:49 PM PRODUCTION PLANNER SCHEDULER Bonny Swanson, B., M.Kacie. LAB M ICROBIOLOGY - BLOOD ORDERABLES Performing Organization Address City/[facility]/ZIP Co de Phone Number [facility] [address] [place] [address], [place] METH [facility] [address] [place] [address] * HIV-1/-2 Ag and Ab PS, Plasma (05/12/2023 5:44 PM PRODUCTION PLANNER SCHEDULER) [facility] HIV-1/-2 Ag and Ab PS, P Negative Negative 05/12/2023 8:32 PM PRODUCTION PLANNER SCHEDULER [facility] Comment: Negative result does not rule out HIV infection. If exposure to HIV infection occurred <14 days ago, contact the laboratory to request addition of HIV-1/HIV-2 RNA Detection Patient Source, Plasma (HEP12). Blood (Blood, Venous) 05/12/2023 5:44 PM PRODUCTION PLANNER SCHEDULER 05/12/2023 7:49 PM PRODUCTION PLANNER SCHEDULER Bonny Swanson, VictorinaChAjit, MJhon. LAB M [place] [employer] - BLOOD ORDERABLES Performing Organization Address City/[facility]/ZIP Co de Phone Number [facility] [address] [place] [address] [facility] [address] [place] [address] * HBs Antigen Patient Source (05/12/2023 5:44 PM PRODUCTION PLANNER SCHEDULER) [facility] HBs Antigen Patient Source, S Negative Negative 05/12/2023 9:55 PM PRODUCTION PLANNER SCHEDULER [facility] Blood (Blood, Venous) 05/12/2023 5:44 PM PRODUCTION PLANNER SCHEDULER 05/12/2023 7:49 PM PRODUCTION PLANNER SCHEDULER Bonny Swanson, VictorinaChAjit, MMarleny LAB M ImageSpikeOBIOLOGY - BLOOD ORDERABLES [facility] [address] [place] [address] [facility] [address] [place] [address] * HCV RNA Pt Source, Serum (05/12/2023 5:44 PM PRODUCTION PLANNER SCHEDULER) [facility] HCV RNA Pt Source, S Undetected Undetected IU/mL 05/12/2023 11:11 PM PRODUCTION PLANNER SCHEDULER [facility] Comment: Result in log IU/mL is Undetected. ----ADDITIONAL INFORMATION---- The quantification range of this assay is 15 to 100,000,000 IU/mL (1.18 log to 8.00 log IU/mL). Testing was performed using the sagar HCV test ([employer] Blood (Blood, Venous) 05/12/2023 5:44 PM PRODUCTION PLANNER SCHEDULER 05/12/2023 7:53 PM PRODUCTION PLANNER SCHEDULER Bonny Swanson B.Ch., MMarleny LAB M ICROBIOLOGY - BLOOD ORDERABLES Performing Organization Address [facility]/ZIP Co de Phone Number [facility] [address] [place] [address] [facility] [address] [place] [address] [place] [address] * (ABNORMAL) Glucose, POCT (05/12/2023 4:32 PM PRODUCTION PLANNER SCHEDULER) Glucose, POCT, B 210(H) 70 - 140 mg/dL 05/12/2023 4:37 PM PRODUCTION PLANNER SCHEDULER PCDE Blood 05/12/2023 4:32 PM PRODUCTION PLANNER SCHEDULER 05/12/2023 4:37 PM PRODUCTION PLANNER SCHEDULER Unknown Provider LAB POCT ORDERABLES- MANUAL Performing Organization Address [facility] Co de Phone Number POC [facility] [address] [place] [address], [place] PCDE [facility] POC [address] [place] [address] * [facility] Colorectal Cancer Panel, Next-Generation Sequencing, Tumor (05/12/2023 3:47 PM PRODUCTION PLANNER SCHEDULER) Result Provided diagnosis: colorectal adenocarcinoma Microsatellite Instability (MSI) status: Stable (RODO) The following CLINICALLY RELEVANT VARIANTS were detected: Gene: APC DNA Change: c.4348C>T (Exon 16) Amino Acid Change: p.R1450* (Grf0060*) Variant Allele Frequency: 33% Gene: APC DNA Change: c.2319del (Exon 16) Amino Acid Change: p.X724Lke*4 (Rfq970Fkgig*4) Variant Allele Frequency: 31.4% Gene: KRAS DNA Change: c.38G>A (Exon 2) Amino Acid Change: p.G13D (Mgf56Gav) Variant Allele Frequency: 55.6% The following VARIANT OF UNCERTAIN SIGNIFICANCE was detected: Gene: MSH6 DNA Change: c.2374C>G (Exon 4) Amino Acid Change: p.L792V (Cyn288Wol) Variant Allele Frequency: 16.4% No other reportable sequence variants were detected within the analyzed regions of the tested genes listed in the method description. 06/08/2023 1:38 PM PRODUCTION PLANNER SCHEDULER DTL Additional Information CLINICAL TRIALS Possible clinical trials of benefit for this patient can be found at the following sites: 1) ClinicalTrials.gov: www.clinicaltrials. gov/ct2/search/adva nced 2) [facility]: www.[facility]/resear ch/clinical-trials/ 3) National Cancer [place]: www.cancer.gov/clin icaltrials/search REFERENCE TRANSCRIPTS Sequence variant nomenclature is based on the following RefSeq accession numbers (build GRCh37 (hg19)):APC [id number], KRAS [id number] and MSH6 [id number]. 06/08/2023 1:38 PM PRODUCTION PLANNER SCHEDULER DTL Specimen Tissue, Tumor 06/08/2023 1:38 PM PRODUCTION PLANNER SCHEDULER DTL Tissue ID [id number] 06/08/2023 1:38 PM PRODUCTION PLANNER SCHEDULER DTL Method Microscopic examination is performed by [...] and additional information on this test, see www.[employer] (Test ID [facility]). 06/08/2023 1:38 PM PRODUCTION PLANNER SCHEDULER DTL Disclaimer This test cannot differentiate between [...] of heterozygosity) and sequencing artifact/misalignme nt [PMID: [id number], PMID: 76909808]. This test cannot reliably determine if a [...] developed and its performance characteristics determined by [facility] in a manner consistent with CLIA requirements. This test has not been cleared or approved by the U.S. Food and Drug Administration. 06/08/2023 1:38 PM PRODUCTION PLANNER SCHEDULER DTL Released By Carole SheppardS., Ph.D. 06/08/2023 1:38 PM PRODUCTION PLANNER SCHEDULER DTL Interpretation MSI: Stable (RODO) NO evidence of microsatellite instability was detected suggesting the presence of normal DNA mismatch repair function within the tumor. Current data suggest that advanced stage solid tumors with intact mismatch repair (RODO) are less likely to be responsive to treatment with immunotherapies such as anti-PD-1 therapies [PMID 14984955, PMID 89424227]. The presence of intact mismatch repair (RODO) is considered to be an unfavorable prognostic factor for patients with colorectal cancer [PMID: 33462092]. These results decrease the likelihood but do [...] APC c.4348C>T (p.R1450*) (Exon 16) and c.2319del (p.Z331Igf*4) (Exon 16) APC (adenomatous polyposis coli) is a tumor suppressor gene that encodes the protein Apc, which plays critical roles in regulating cell division and adhesion. Apc interacts with beta-catenin and controls signaling in the Wnt pathway, which helps regulate embryonic development and cell differentiation [PMID:73440618]. Inactivation of Apc results in the deregulation of Wnt signaling through beta-catenin [PMID:85526770]. In the absence of functional Apc, beta-catenin accumulates and is translocated to the nucleus, where it promotes the miter grinder operator of genes promoting cellular proliferation [PMID:15819502]. APC mutations have been reported in 48-80% of colon samples [[employer]OS[employer], [employer]BioPortal for Cancer Gen[employer]]. There are currently no known clinically approved therapies that specifically target APC mutations. 2) KRAS c.38G>A (p.G13D) (Exon 2) KRAS encodes a signaling protein member of the Burke family [PMID:12733644, PMID:75453032, PMID:67939560]. Activating KRAS alterations, mainly through mutations in exons 2, 3, and 4 (most commonly at codons G12, G13 and Q61), result in oncogenic activation of downstream signaling pathways, including the Jesus/MEK/ERK pathway [PMID:73363999, PMID:4223985]. KRAS mutations have been reported in 33-43% of colon samples [COSMIC, cBioPortal for Cancer Genomics]. Current data suggests that the efficacy of EGFR-targeted therapies in colorectal cancer is limited to patients with tumors lacking an activating KRAS mutation [PMID:85669115, PMID:21456741]. VARIANT OF UNCERTAIN SIGNIFICANCE One variant of uncertain significance was detected. The variant was not observed at significant frequency in population germline/cancer somatic variant databases nor predicted to be functionally significant based on variant type/in silico algorithm results. Additionally, there was no convincing published evidence of cancer association. Therefore, the clinical significance of the detected variant is unknown. 06/08/2023 1:38 PM PRODUCTION PLANNER SCHEDULER DTL 05/12/2023 3:47 PM PRODUCTION PLANNER SCHEDULER 06/01/2023 1:15 PM PRODUCTION PLANNER SCHEDULER Scooby Jacobs M.D. LAB GENETIC SANJAY ANTONIO Performing Organization Address City/[facility]/ZIP Co de Phone Number [facility] [address] [place] [address], [place] DT [address] [place] [address] * (ABNORMAL) Glucose, POCT (05/12/2023 1:47 PM PRODUCTION PLANNER SCHEDULER) Glucose, POCT, B 216(H) 70 - 140 mg/dL 05/12/2023 2:02 PM PRODUCTION PLANNER SCHEDULER PCDE Site Capillary 05/12/2023 2:02 PM PRODUCTION PLANNER SCHEDULER PCDE Blood 05/12/2023 1:47 PM PRODUCTION PLANNER SCHEDULER 05/12/2023 2:03 PM PRODUCTION PLANNER SCHEDULER Unknown Provider LAB POCT ORDERABLES- MANUAL POC [facility] [address] [place] [address], [place] PCDE [facility] POC [address] [place] [address] * Surgical Pathology, Frozen Lab (05/12/2023 12:49 PM PRODUCTION PLANNER SCHEDULER) 05/18/2023 4:43 PM PRODUCTION PLANNER SCHEDULER METH Participated in the Interpretation Candi Cantu M.D.-Pathology Fellow 05/18/2023 4:43 PM PRODUCTION PLANNER SCHEDULER METH Report electronically signed by Rashid Roa., Ph.D. I verify that I have examined all relevant slides/materials for the specimen(s) and rendered or confirmed the diagnosis. 05/18/2023 4:43 PM PRODUCTION PLANNER SCHEDULER METH Frozen Intraoperative Report A. ??Terminal ileum, [...] Ph.D. 05/13/2023 10:17 AM 05/18/2023 4:43 PM PRODUCTION PLANNER SCHEDULER METH Gross Description A. ??Received fresh labeled [...] nodes are identified within the mesenteric fat. ??News Reel Cameraman tissue is submitted for frozen and permanent sections. ??Grossed by Musa Kessler M.D., Ph.D.-Pathology Resident/Miracle German, KATHLEEN([facility]). ??Additional sections of adipose tissue are submitted on 05/16/2023 by Georgia Eldridge M.D. -Pathology Resident. 05/18/2023 4:43 PM PRODUCTION PLANNER SCHEDULER METH Block Summary A Appendix, terminal ileum, [...] A48 Adipose tissue- 10 05/18/2023 4:43 PM PRODUCTION PLANNER SCHEDULER METH Addendum Genetic testing for [facility] Colorectal Cancer Panel ([facility]) will be performed and resulted in the patient's medical record. Signed by Caroline Michaud M.D. 06/02/2023 1:30 PM A portion of the testing process was performed at [facility] site [id number]. 06/02/2023 1:30 PM PRODUCTION PLANNER SCHEDULER METH Comment:REVISED RESULTS Interpretation FINAL DIAGNOSIS A. [...] in 1 hotspot field: Not applicable Tumor [place] Score: Not applicable Treatment Effect: No known [...] of the testing process was performed at [facility] site [id number]. Digital imaging was used in the diagnostic assessment of this case. 06/02/2023 1:30 PM PRODUCTION PLANNER SCHEDULER METH Tissue (Colon) 05/12/2023 12 :49 PM PRODUCTION PLANNER SCHEDULER Bonny Swanson B.Ch., Patrice. LAB S URG PATH ORDERABLES Performing Organization Address City/[facility]/ZIP Co de Phone Number [facility] [address] [place] [address], [place] METH 200 [facility] [address] [place] [address] * Glucose, POCT (05/12/2023 11:26 AM PRODUCTION PLANNER SCHEDULER) Glucose, POCT, B 135 70 - 140 mg/dL 05/12/2023 11:28 AM PRODUCTION PLANNER SCHEDULER PCDE Site ARTLINE 05/12/2023 11:28 AM PRODUCTION PLANNER SCHEDULER PCDE Blood 05/12/2023 11:2 6 AM PRODUCTION PLANNER SCHEDULER 05/12/2023 11:29 AM PRODUCTION PLANNER SCHEDULER Unknown Provider LAB POCT ORDERABLES- MANUAL POC [facility] [address] PCDE [facility] POC [address] [place] [address] * Glucose, POCT (05/12/2023 9:07 AM PRODUCTION PLANNER SCHEDULER) Glucose, POCT, B 132 70 - 140 mg/dL 05/12/2023 9:12 AM PRODUCTION PLANNER SCHEDULER PCDE Site Capillary 05/12/2023 9:12 AM PRODUCTION PLANNER SCHEDULER PCDE Blood 05/12/2023 9:07 AM PRODUCTION PLANNER SCHEDULER 05/12/2023 9:13 AM PRODUCTION PLANNER SCHEDULER Unknown Provider LAB POCT ORDERABLES- MANUAL Performing Organization Address City/[facility]/ZIP Co de Phone Number POC [facility] [address] [place] [address], [place] PCDE [facility] POC [address] [place] [address] * Glucose, POCT (05/11/2023 9:40 PM PRODUCTION PLANNER SCHEDULER) Glucose, POCT, B 127 70 - 140 mg/dL 05/11/2023 9:46 PM PRODUCTION PLANNER SCHEDULER PCDE Site Capillary 05/11/2023 9:46 PM PRODUCTION PLANNER SCHEDULER PCDE Blood 05/11/2023 9:40 PM PRODUCTION PLANNER SCHEDULER 05/11/2023 9:46 PM PRODUCTION PLANNER SCHEDULER Unknown Provider LAB POCT ORDERABLES- MANUAL Performing Organization Address [facility] Co de Phone Number POC [facility] [address] [place] [address], [place] PCDE [facility] POC [address] [place] [address] * (ABNORMAL) Glucose, POCT (05/11/2023 4:56 PM PRODUCTION PLANNER SCHEDULER) Glucose, POCT, B 141(H) 70 - 140 mg/dL 05/11/2023 4:58 PM PRODUCTION PLANNER SCHEDULER PCDE Site Capillary 05/11/2023 4:58 PM PRODUCTION PLANNER SCHEDULER PCDE Blood 05/11/2023 4:56 PM PRODUCTION PLANNER SCHEDULER 05/11/2023 4:59 PM PRODUCTION PLANNER SCHEDULER Unknown Provider LAB POCT ORDERABLES- MANUAL Performing Organization Address City/[facility]/ZIP Co de Phone Number [facility] [address] [place] [address], [place] PCDE [facility] POC [address] [place] [address] * Antibody Identification, Erythrocytes (05/11/2023 3:18 PM PRODUCTION PLANNER SCHEDULER) Antibody Identification No antibody detected 05/11/2023 6:14 PM PRODUCTION PLANNER SCHEDULER DTL 05/11/2023 3:18 PM PRODUCTION PLANNER SCHEDULER 05/11/2023 3:24 PM PRODUCTION PLANNER SCHEDULER Narrative [facility] - 05/11/2023 6:14 PM PRODUCTION PLANNER SCHEDULER Specimen Information: Specimen ID: [id number] Specimen Collection Start Date: 05/11/2023 ??3:18 PM Specimen Received Date: 05/11/2023 ??3:24 PM Specimen ID: [id number] Specimen Collection Start Date: 05/11/2023 ??3:18 PM Specimen Received Date: 05/11/2023 ??3:24 PM Odilon Blair APRN, C.N.P., M.S.N. L AB BLOOD BANK TEST ORDERABLES Performing Organization Address [facility] Co de Phone Number [facility] [address] [place], [place] [address] [place] [address] [address] [place] [address] * (ABNORMAL) Hemoglobin A1c (05/11/2023 3:18 PM PRODUCTION PLANNER SCHEDULER) [facility] Hemoglobin A1c, B 6.5(H) 4.0 - 5.6 % 05/11/2023 5:35 PM PRODUCTION PLANNER SCHEDULER DT Comment: Hemoglobin A1c values greater than or equal to 6.5 percent are diagnostic for diabetes mellitus. ??Diagnosis should be confirmed by repeat testing. ??In diabetic patients, HbA1c goals should be discussed with healthcare provider. Blood (Blood, Venous) 05/11/2023 3:18 PM PRODUCTION PLANNER SCHEDULER 05/11/2023 3:27 PM PRODUCTION PLANNER SCHEDULER Delma Ramirez APRN, C.N.PAjit, D.N.P. LAB BLOOD ADD-ON [facility] [address] [place] [address], [facility] [address] [place] [address] * Type and Screen (with Reflex Antibody ID) (05/11/2023 3:18 PM PRODUCTION PLANNER SCHEDULER) Pathologist [facility] [place] ABORh A Pos Not applicable 05/11/2023 4:37 PM PRODUCTION PLANNER SCHEDULER ETRM Antibody Screen Positive Negative 05/11/2023 4:51 PM PRODUCTION PLANNER SCHEDULER ETRM Type & Screen Expiration 05/14/2023 23:59 05/11/2023 4:37 PM PRODUCTION PLANNER SCHEDULER ETRM Testing Location [facility] DEFAULT 05/11/2023 3:24 PM PRODUCTION PLANNER SCHEDULER ETRM Blood (Blood, Venous) 05/11/2023 3:18 PM PRODUCTION PLANNER SCHEDULER 05/11/2023 3:24 PM PRODUCTION PLANNER SCHEDULER Odilon Blair APRN C.N.P., M.S.N. L AB BLOOD BANK TEST ORDERABLES [facility] [address] [place] [address], [place] ETRM [facility] [address] [place] [address] * (ABNORMAL) CBC with Differential, Blood (05/11/2023 3:18 PM PRODUCTION PLANNER SCHEDULER) Hemoglobin 9.0(L) 13.2 - 16.6 g/dL 05/11/2023 3:35 PM PRODUCTION PLANNER SCHEDULER DTL Hematocrit 30.0(L) 38.3 - 48.6 % 05/11/2023 3:35 PM PRODUCTION PLANNER SCHEDULER DTL Erythrocytes 3.93(L) 4.35 - 5.65 x10(12)/L 05/11/2023 3:35 PM PRODUCTION PLANNER SCHEDULER DTL MCV 76.3(L) 78.2 - 97.9 fL 05/11/2023 3:35 PM PRODUCTION PLANNER SCHEDULER DTL RBC Distrib Width 19.7(H) 11.8 - 14.5 % 05/11/2023 3:35 PM PRODUCTION PLANNER SCHEDULER DTL Platelet Count 321(H) 135 - 317 x10(9)/L 05/11/2023 3:35 PM PRODUCTION PLANNER SCHEDULER DTL Leukocytes 9.5 3.4 - 9.6 x10(9)/L 05/11/2023 3:35 PM PRODUCTION PLANNER SCHEDULER DTL Neutrophils 6.39 1.56 - 6.45 x10(9)/L 05/11/2023 3:35 PM PRODUCTION PLANNER SCHEDULER DHPM Lymphocytes 1.98 0.95 - 3.07 x10(9)/L 05/11/2023 3:35 PM PRODUCTION PLANNER SCHEDULER DTL Monocytes 0.75 0.26 - 0.81 x10(9)/L 05/11/2023 3:35 PM PRODUCTION PLANNER SCHEDULER DTL Eosinophils 0.29 0.03 - 0.48 x10(9)/L 05/11/2023 3:35 PM PRODUCTION PLANNER SCHEDULER DTL Basophils 0.05 0.01 - 0.08 x10(9)/L 05/11/2023 3:35 PM PRODUCTION PLANNER SCHEDULER DTL Blood (Blood, Venous) 05/11/2023 3:18 PM PRODUCTION PLANNER SCHEDULER 05/11/2023 3:27 PM PRODUCTION PLANNER SCHEDULER Odilon Blair APRN, C.N.P., M.S.N. L AB BLOOD ADD-ON [facility] [address] [place] [address], [place] DTL [facility] [address] [place] [address] [facility] [address] [place] [address] * (ABNORMAL) Basic Metabolic Panel (05/11/2023 3:18 PM PRODUCTION PLANNER SCHEDULER) Pathologist [facility] [place] Potassium, S 4.5 3.6 - 5.2 mmol/L 05/11/2023 4:01 PM PRODUCTION PLANNER SCHEDULER DTL Sodium, S 139 135 - 145 mmol/L 05/11/2023 4:01 PM PRODUCTION PLANNER SCHEDULER DTL Chloride, S 100 98 - 107 mmol/L 05/11/2023 4:01 PM PRODUCTION PLANNER SCHEDULER DTL Bicarbonate, S 28 22 - 29 mmol/L 05/11/2023 4:01 PM PRODUCTION PLANNER SCHEDULER DTL Anion Gap 11 7 - 15 05/11/2023 4:01 PM PRODUCTION PLANNER SCHEDULER DTL BUN (Blood Urea Nitrogen), S 31(H) 8 - 24 mg/dL 05/11/2023 4:01 PM PRODUCTION PLANNER SCHEDULER DTL Creatinine 1.37(H) 0.74 - 1.35 mg/dL 05/11/2023 4:01 PM PRODUCTION PLANNER SCHEDULER DTL Estimated GFR (eGFR) 55(L) >=60 mL/min/BSA 05/11/2023 4:01 PM PRODUCTION PLANNER SCHEDULER DTL Comment: Estimated GFR calculated using the 2020 CKD_EPI creatinine equation. Calcium, Total, S 9.1 8.8 - 10.2 mg/dL 05/11/2023 4:01 PM PRODUCTION PLANNER SCHEDULER DTL Glucose, S 192(H) 70 - 140 mg/dL 05/11/2023 4:01 PM PRODUCTION PLANNER SCHEDULER DTL Blood (Blood, Venous) 05/11/2023 3:18 PM PRODUCTION PLANNER SCHEDULER 05/11/2023 3:45 PM PRODUCTION PLANNER SCHEDULER Odilon Blair APRN C.N.P., M.S.N. L AB BLOOD ADD-ON [facility] [address] [place] [address], [place] [facility] [address] [place] [address] documented in this encounter Visit Diagnoses Diagnosis Malignant Neoplasm Of Colon (HCC)- Primary Malignant Neoplasm Of Colon Ascending (HCC) Repeated Falls Morbid Severe Obesity Due To Excess Calories (HCC) Stenosis Spinal Lumbar With Neurogenic Claudication Weakness General Debility Malignant Neoplasm Of Colon (HCC) Malignant Neoplasm Of Colon Ascending (HCC) Chronic Kidney Disease (CKD), Stage 3a Glomerular Filtration Rate (GFR) 45 To 59 (HCC) Morbid Obesity Body Mass Index 50.0-59.9 Adult (HCC) Hypertension And Chronic Kidney Disease Stage 3 (HCC) Apnea Sleep Obstructive Depression Major Recurrent (HCC) Hypothyroidism Other Hyperlipidemia Stenosis Spinal Lumbar With Neurogenic Claudication Debility Tachycardia Atrial Paroxysmal (HCC) Diabetes Mellitus Type 2 Peripheral Neuropathy (HCC) Repeated Falls documented in this encounter Admitting Diagnoses Diagnosis Malignant Neoplasm Of Colon (HCC) Malignant Neoplasm Of Colon Ascending (HCC) documented in this encounter Administered Medications Inactive Administered Medications - up to 3 most recent administrations Medication Order MAR Action Action Date Dose Rate Site acetaminophen tablet 1,000 mg (TYLENOL) 1,000 mg, oral, 4 times daily, First dose on Tue05/11/23 at 1700, Not to exceed 4 grams of acetaminophen in 24 hours all sources Given 05/16/2023 9:16 AM PRODUCTION PLANNER SCHEDULER 1,000 mg Given 05/15/2023 6:00 PM PRODUCTION PLANNER SCHEDULER 1,000 mg Given 05/15/2023 12:04 PM PRODUCTION PLANNER SCHEDULER 1,000 mg acetaminophen tablet 1,000 mg (TYLENOL) 1,000 mg, oral, Once, On Cyndy 05/12/23 at 1015, For 1 dose, Pre-Op Given 05/12/2023 10:07 AM PRODUCTION PLANNER SCHEDULER 1,000 mg acetaminophen tablet 1,000 mg (TYLENOL) 1,000 mg, oral, 4 times daily, First dose on Tue05/12/23 at 1700 Given 05/12/2023 4:28 PM PRODUCTION PLANNER SCHEDULER 1,000 mg acetic acid 0.25 % irrigation solution (sterile) 1 Application 1 Application, topical, 2 times daily, First dose on Tue05/13/23 at 1215, Pannus: see wound care order. Given 05/16/2023 9:19 AM PRODUCTION PLANNER SCHEDULER 1 Applic ation Given 05/15/2023 9:01 AM PRODUCTION PLANNER SCHEDULER 1 Application Given 05/14/2023 8:19 PM PRODUCTION PLANNER SCHEDULER 1 Application allopurinoL tablet 300 mg (ZYLOPRIM) 300 mg, oral, Daily, First dose on Tue05/12/23 at 0900 Given 05/16/2023 9:16 AM PRODUCTION PLANNER SCHEDULER 300 mg Given 05/15/2023 9:00 AM PRODUCTION PLANNER SCHEDULER 300 mg Given 05/14/2023 8:41 AM PRODUCTION PLANNER SCHEDULER 300 mg atorvastatin tablet 20 mg (LIPITOR) 20 mg, oral, Daily at bedtime, First dose on Tue05/11/23 at 2100, atorvastatin 20 mg oral daily was interchanged for pravastatin oral daily Given 05/15/2023 9:06 PM PRODUCTION PLANNER SCHEDULER 20 mg Given 05/14/2023 8:16 PM PRODUCTION PLANNER SCHEDULER 20 mg Given 05/13/2023 10:01 PM PRODUCTION PLANNER SCHEDULER [address] tablet 10 mg (DULCOLAX) 10 mg, oral, Once, On Tue05/11/23 at 1800, For 1 dose, With 8 oz of water Swallow whole. Do NOT crush, chew, or split tablet. Given 05/11/2023 6:54 PM PRODUCTION PLANNER SCHEDULER [address] tablet 10 mg (DULCOLAX) 10 mg, oral, Once, On Tue05/11/23 at 2200, For 1 dose, With 8 oz of water Swallow whole. Do NOT crush, chew, or split tablet. Given 05/11/2023 10:00 PM PRODUCTION PLANNER SCHEDULER 10 mg dilTIAZem CD 24 hr capsule 240 mg (CARDIZEM CD/CARTIA XT) 240 mg, oral, 2 times daily, First dose on Tue05/11/23 at 2100, Swallow whole. Do NOT crush, chew or open capsule. Given 05/16/2023 9:17 AM PRODUCTION PLANNER SCHEDULER 240 mg Given 05/15/2023 9:05 PM PRODUCTION PLANNER SCHEDULER 240 mg Given 05/15/2023 9:00 AM PRODUCTION PLANNER SCHEDULER [address] capsule 30 mg (CYMBALTA) 30 mg, oral, 2 times daily, First dose on Tue05/11/23 at 2100, See tube feeding guidelines for tube feeding administration instructions. Given 05/16/2023 9:1 6 AM PRODUCTION PLANNER SCHEDULER 30 mg Given 05/15/2023 9:05 PM PRODUCTION PLANNER SCHEDULER 30 mg Given 05/15/2023 9:00 AM PRODUCTION PLANNER SCHEDULER 30 mg enoxaparin injection 40 mg (LOVENOX) 40 mg, subcutaneous, 2 times daily, First dose on Tue05/16/23 at 2100 fentaNYL injection 25 mcg (SUBLIMAZE) 25 mcg, intravenous, Every 2 min PRN, For pain 4 or greater (maximum 100 mcg). If max dose of Fentanyl is reached and if pain is greater than 4, discontinue Fentanyl: give Hydromorphone, Starting on Cyndy 05/12/23 at 1329, PACU (only) Given 05/12/2023 2:40 PM PRODUCTION PLANNER SCHEDULER 25 mcg Given 05/12/2023 2:29 PM PRODUCTION PLANNER SCHEDULER 25 mcg Given 05/12/2023 1:48 PM PRODUCTION PLANNER SCHEDULER 25 mcg furosemide tablet 20 mg (LASIX) 20 mg, oral, 2 times daily, First dose on Tue05/15/23 at 0900 Given 05/16/2023 9:17 AM PRODUCTION PLANNER SCHEDULER 20 mg Given 05/15/2023 6:00 PM PRODUCTION PLANNER SCHEDULER 20 mg Given 05/15/2023 9:00 AM PRODUCTION PLANNER SCHEDULER 20 mg granisetron (PF) injection 1 mg (KYTRIL) 1 mg, intravenous, Once as needed, nausea, vomiting, Starting on Cyndy 05/12/23 at 1426, For 1 dose, PACU & Post-Op Given 05/12/2023 2:28 PM PRODUCTION PLANNER SCHEDULER 1 mg haloperidol lactate injection 1 mg (HALDOL) 1 mg, intravenous, Every 6 hours PRN, nausea, vomiting, Starting on Cyndy 05/12/23 at 1329, PACU (only), Total of 3 doses in 24 hour period. RASS must be -2 or higher to administer. If nausea and vomiting persists, move to granisteron. (order of antiemetic administration - ondansetron then haloperidol then granisetron) Given 05/12/2023 1:54 PM PRODUCTION PLANNER SCHEDULER 1 mg heparin (porcine) injection 7,500 Units 7,500 Units, subcutaneous, 3 times daily, First dose on Tue05/11/23 at 1545, For 2 doses Given 05/11/2023 9:59 PM PRODUCTION PL[employer]NER SCHEDULER 7,500 Units Right Lower Abdomen Given 05/11/2023 4:04 PM PRODUCTION PLANNER SCHEDULER 7,500 Units R ight Upper Arm (Back) heparin (porcine) injection 7,500 Units 7,500 Units, subcutaneous, Every 8 hours scheduled, First dose on Tue05/12/23 at 2200, For 12 doses Given 05/16/2023 6:26 AM PRODUCTION PLANNER SCHEDULER 7,500 Units Left Lower Abdomen Given 05/15/2023 9:06 PM PRODUCTION PLANNER SCHEDULER 7,500 Units R ight Lower Abdomen Given 05/15/2023 1:31 PM PRODUCTION PLANNER SCHEDULER 7,500 Units R ight Lower Abdomen HYDROmorphone (PF) injection 0.2 mg (DILAUDID) 0.2 mg, intravenous, Every 2 hour PRN, severe pain or score 7-10 of 10, breakthrough pain, Starting on Tue05/11/23 at 1449, For breakthrough pain unrelieved 30 minutes after PRN oral pain medication is used or if unable to take oral pain medication. insulin aspart U-100 injection 0-13 Units (NovoLOG FlexPen) 0-13 Units, subcutaneous, 3 times daily, First dose on Tue05/13/23 at 1700, Insulin Scale: Moderate Correction Scale, 140 - 179: 2 units, 180 - 219: 4 units, 220 - 259: 6 units, 260 - 299: 8 units, 300 - 339: 10 units, 340 - 379: 12 units, 380 - 399: 13 units, Greater than 399: Call service writing Insulin orders Given 05/16/2023 9:36 AM PRODUCTION PLANNER SCHEDULER 2 Units Left Upper Arm (Back ) Given 05/15/2023 6:00 PM PRODUCTION PLANNER SCHEDULER 4 Units Ri ght Lower Abdomen Given 05/15/2023 2:13 PM PRODUCTION PLANNER SCHEDULER 2 Units Ri ght Lower Abdomen insulin aspart U-100 injection 0-7 Units (NovoLOG FlexPen) 0-7 Units, subcutaneous, 3 times daily, First dose on Tue05/11/23 at 1700, Insulin Scale: Mild Correction Scale, 180 - 219: 2 units, 220 - 259: 3 units, 260 - 299: 4 units, 300 - 339: 5 units, 340 - 379: 6 units, 380 - 399: 7 units, Greater than 399: Call service writing Insulin orders Given 05/13/2023 3:11 PM PRODUCTION PLANNER SCHEDULER 3 Units Left Lower Abdomen Given 05/13/2023 9:17 AM PRODUCTION PLANNER SCHEDULER 5 Units Ri ght Lower Abdomen Given 05/12/2023 4:33 PM PRODUCTION PLANNER SCHEDULER 2 Units Le ft Upper Arm (Back) insulin aspart U-100 injection 0-7 Units (NovoLOG FlexPen) 0-7 Units, subcutaneous, Daily at bedtime, First dose (after last modification) on Tue05/12/23 at 2200, Insulin Scale: Modified Bedtime Correction Scale, 220-259: 3 units, 260-299: 4 units, 300-339: 5 units, 340-379: 6 units, 380-399: 7 units, Greater than 399: Call service writing insulin orders Given 05/15/2023 9:10 PM PRODUCTION PLANNER SCHEDULER 3 Units Right Lower Abdomen Given 05/14/2023 8:35 PM PRODUCTION PLANNER SCHEDULER 3 Units Le ft Upper Arm (Back) Given 05/13/2023 10:01 PM PRODUCTION PLANNER SCHEDULER 3 Units R ight Lower Abdomen insulin aspart U-100 injection 0-8 Units (NovoLOG FlexPen) 0-8 Units, subcutaneous, Every 2 hour PRN, high blood sugar, Nurse to determine and administer dose, Starting on Tue05/12/23 at 1329, For 2 doses, PACU (only), First dose at least 2 hours after any previous subcutaneous insulin. For glucose less than or equal to 70 mg/dL - initiate treatment of hypoglycemia. , Insulin Aspart: Correction Scale Insulin (For Diabetes Mellitus diagnosis), 71 - 139: 0 units, 140 - 179: 2 units, 180 - 219: 4 units, 220 - 259: 6 units, 260 - 299: 8 units, Greater than or equal to 300: Call anesthesia Given 05/12/2023 2:31 PM PRODUCTION PLANNER SCHEDULER 4 Units Left Upper Arm (Back ) insulin glargine injection 13 Units 13 Units, subcutaneous, Daily at bedtime, First dose on Tue05/11/23 at 2100 Given 05/12/2023 9:28 PM PRODUCTION PLANNER SCHEDULER 13 Units Left Upper Arm (Back ) Given 05/11/2023 10:00 PM PRODUCTION PLANNER SCHEDULER 13 Units R ight Lower Abdomen insulin glargine injection 26 Units 26 Units, subcutaneous, Daily at bedtime, First dose (after last modification) on Tue05/13/23 at 2100 Given 05/15/2023 9:11 PM PRODUCTION PLANNER SCHEDULER 26 Units Right Lower Abdomen Given 05/14/2023 8:35 PM PRODUCTION PLANNER SCHEDULER 26 Units Ri ght Upper Arm (Back) Given 05/13/2023 10:01 PM PRODUCTION PLANNER SCHEDULER 26 Units R ight Lower Abdomen Lactated Ringer's 100 mL/hr, intravenous, Continuous, Starting on Tue05/11/23 at 1515 New Bag 05/12/2023 1:40 AM PRODUCTION PLANNER SCHEDULER 100 mL/hr 100 mL/hr Rate/Dose Verify 05/11/2023 10:00 PM PRODUCTION PL[employer]NER SCHEDULER 100 mL/hr 100 mL /hr New Bag 05/11/2023 4:03 PM PRODUCTION PL[employer]NER SCHEDULER 100 mL/hr 100 mL/hr Lactated Ringer's 20 mL/hr, intravenous, Continuous, Starting on Tue05/12/23 at 1230, PACU & Post-Op Continued from OR 05/12/2023 1:39 PM PRODUCTION PL[employer]NER SCHEDULER 20 mL/hr 20 mL/hr Lactated Ringer's 40 mL/hr, intravenous, Continuous, Starting on Tue05/12/23 at 1600, For 2 days, Until 0800 day after surgery, then discontinue infusion. Continued from OR 05/12/2023 3:53 PM PRODUCTION PL[employer]NER SCHEDULER 40 mL/hr 40 mL/hr levothyroxine tablet 100 mcg (SYNTHROID, LEVOTHROID) 100 mcg, oral, Daily before breakfast, First dose on Tue05/12/23 at 0700, Take along with 125 mcg for a total daily dose of 225 mcg. Given 05/16/2023 6:24 AM PRODUCTION PLANNER SCHEDULER 100 mcg Given 05/15/2023 6:53 AM PRODUCTION PLANNER SCHEDULER 100 mcg Given 05/14/2023 6:27 AM PRODUCTION PLANNER SCHEDULER 100 mcg levothyroxine tablet 125 mcg (SYNTHROID, LEVOTHROID) 125 mcg, oral, Daily before breakfast, First dose on Tue05/12/23 at 0700, Take along with 100 mcg for a total daily dose of 225 mcg. Given 05/16/2023 6:25 AM CS T 125 mcg Given 05/15/2023 6:53 AM PRODUCTION PLANNER SCHEDULER 125 mcg Given 05/14/2023 6:30 AM PRODUCTION PLANNER SCHEDULER 125 mcg magnesium oxide tablet 400 mg (MAG-OX) 400 mg, oral, 2 times daily, First dose on Tue05/12/23 at 2100, For 3 days, Starting evening of surgery. Hold for diarrhea or output greater than 1500 mL/day Given 05/14/2023 8:15 PM PRODUCTION PLANNER SCHEDULER 400 mg Given 05/14/2023 8:41 AM PRODUCTION PLANNER SCHEDULER 400 mg Given 05/13/2023 10:01 PM PRODUCTION PLANNER SCHEDULER 400 mg metroNIDAZOLE tablet 500 mg (FLAGYL) 500 mg, oral, Once, On Tue05/11/23 at 1830, For 1 dose, With 8oz of water, Indications: Prophylaxis, surgical Given 05/11/2023 6:55 PM PRODUCTION PLANNER SCHEDULER 500 mg metroNIDAZOLE tablet 500 mg (FLAGYL) 500 mg, oral, Once, On Tue05/11/23 at 2000, For 1 dose, With 8oz of water, Indications: Prophylaxis, surgical Given 05/11/2023 8:44 PM PRODUCTION PLANNER SCHEDULER 500 mg metroNIDAZOLE tablet 500 mg (FLAGYL) 500 mg, oral, Once, On Tue05/12/23 at 0500, For 1 dose, Day of surgery with sip of water, Indications: Prophylaxis, surgical Given 05/12/2023 5:01 AM PRODUCTION PLANNER SCHEDULER 50 0 mg naloxone injection 0.1 mg (NARCAN) 0.1 mg, intravenous, Every 5 min PRN, reversal, respiratory depression, For RASS Score -4 or less, respiratory rate of less than 8 breaths/min. Notify provider/service and rapid response team (if available at institution)., Starting on Tue05/11/23 at 1449, For 3 doses neomycin tablet 1,000 mg (MYCIFRADIN) 1,000 mg, oral, User Specified (3 times per day), First dose on Tue05/11/23 at 1830, For 3 doses, For evening bowel preparation: give at 6:30 PM and 8:00 PM the night prior to procedure with 8 oz of water and 5 AM the day of procedure with a sip of water., Indications: Prophylaxis, surgical Given 05/12/2023 5:01 AM PRODUCTION PLANNER SCHEDULER 1,000 mg Given 05/11/2023 8:44 PM PRODUCTION PLANNER SCHEDULER 1,000 mg Given 05/11/2023 6:56 PM PRODUCTION PLANNER SCHEDULER 1,000 mg nystatin 100,000 unit/gram cream 1 Application (MYCOSTATIN) 1 Application, topical, 2 times daily, First dose on Tue05/13/23 at 1215, Pannus: see wound care order. Given 05/16/2023 9:21 AM PRODUCTION PLANNER SCHEDULER 1 Application Given 05/15/2023 9:01 AM PRODUCTION PLANNER SCHEDULER 1 Application Given 05/14/2023 8:19 PM PRODUCTION PLANNER SCHEDULER 1 Application nystatin 100,000 unit/gram powder 1 Application (NYSTOP) 1 Application, topical, 2 times daily, First dose on Tue05/13/23 at 1215, Pannus: apply to affected area between treatments- see wound care order Given 05/15/2023 11:50 AM PRODUCTION PLANNER SCHEDULER 1 Application Given 05/14/2023 10:31 PM PRODUCTION PLANNER SCHEDULER 1 Application Given 05/14/2023 12:10 PM PRODUCTION PLANNER SCHEDULER 1 Application ondansetron ODT disintegrating tablet 4 mg (ZOFRAN-ODT) 4 mg, oral, Once, On Tue05/11/23 at 1800, For 1 dose, With 8 oz of water When splitting ODT at bedside, handle with gloves and a pill splitter to prevent moisture contact. Given 05/11/2023 6:56 PM PRODUCTION PLANNER SCHEDULER 4 mg ondansetron ODT disintegrating tablet 4 mg (ZOFRAN-ODT) 4 mg, oral, Once, On Tue05/11/23 at 2000, For 1 dose, With 8 oz of water When splitting ODT at bedside, handle with gloves and a pill splitter to prevent moisture contact. Given 05/11/2023 8:44 PM PRODUCTION PLANNER SCHEDULER 4 mg ondansetron ODT disintegrating tablet 4 mg (ZOFRAN-ODT) 4 mg, oral, Once, On Tue05/12/23 at 0500, For 1 dose, Day of surgery with sip of water When splitting ODT at bedside, handle with gloves and a pill splitter to prevent moisture contact. Given 05/12/2023 5:01 AM PRODUCTION PLANNER SCHEDULER 4 mg ondansetron ODT disintegrating tablet 4 mg (ZOFRAN-ODT) 4 mg, oral, Every 6 hours PRN, nausea, vomiting, Starting on Tue05/11/23 at 1449, When splitting ODT at bedside, handle with gloves and a pill splitter to prevent moisture contact. oxyCODONE IR tablet 10 mg (ROXICODONE) 10 mg, oral, Every 4 hours PRN, severe pain or score 7-10 of 10, Starting on Tue05/11/23 at 1449 oxyCODONE IR tablet 5 mg (ROXICODONE) 5 mg, oral, Every 4 hours PRN, moderate pain or score 4-6 of 10, Starting on Tue05/11/23 at 1449 Given 05/11/2023 4:03 PM PRODUCTION PLANNER SCHEDULER 5 mg oxyCODONE IR tablet 5 mg (ROXICODONE) 5 mg, oral, Every 4 hours PRN, moderate pain or score 4-6 of 10, Starting on Tue05/12/23 at 1539, For patients who received intrathecal analgesia start 24 hours after intrathecal dose given Given 05/12/2023 3:51 PM PRODUCTION PLANNER SCHEDULER [address] tablet 40 mg (PROTONIX) 40 mg, oral, Daily before breakfast, First dose on Tue05/12/23 at 0700, Swallow whole. Do NOT crush, chew, or split tablet. Given 05/16/2023 6:24 AM PRODUCTION PLANNER SCHEDULER 40 mg Given 05/15/2023 6:52 AM PRODUCTION PLANNER SCHEDULER 40 mg Given 05/14/2023 6:26 AM PRODUCTION PLANNER SCHEDULER 40 mg polyethylene glycol powder packet 238 g (MIRALAX) 238 g, oral, Once, On Tue05/11/23 at 1900, For 1 dose, Mix 238 g bottle in 64 oz. of clear liquid. Shake until dissolved. Administer 8oz every 15 min until gone. Avoid mixing with starch-based thickened liquids. Given 05/11/2023 8:49 PM PRODUCTION PLANNER SCHEDULER 238 g pregabalin capsule 300 mg (LYRICA) 300 mg, oral, 2 times daily, First dose on Tue05/11/23 at 2100 Given 05/16/2023 9:16 AM PRODUCTION PLANNER SCHEDULER 300 mg Given 05/15/2023 9:05 PM PRODUCTION PLANNER SCHEDULER 300 mg Given 05/15/2023 8:59 AM PRODUCTION PLANNER SCHEDULER 300 mg sodium bicarbonate tablet 1,300 mg 1,300 mg, oral, 3 times daily, First dose on Tue05/11/23 at 2100 Given 05/16/2023 9:16 AM PRODUCTION PLANNER SCHEDULER 1,300 mg Given 05/15/2023 9:06 PM PRODUCTION PLANNER SCHEDULER 1,300 mg Given 05/15/2023 1:31 PM PRODUCTION PLANNER SCHEDULER 1,300 mg sodium chloride 0.9 % injection 10 mL 10 mL, intravenous, As needed, line care, Starting on Tue05/11/23 at 1444, Peripheral Intravenous Catheter and Rapid Infusion Catheter, prior to blood sampling, post blood transfusion or post blood sampling sodium chloride 0.9 % injection 3 mL 3 mL, intravenous, As needed, line care, Starting on Tue05/11/23 at 1444, Prior to and following infusion and between multiple consecutive infusions: sodium chloride 0.9 % injection sodium chloride 0.9 % injection 3 mL 3 mL, intravenous, Every 12 hours scheduled, First dose on Tue05/11/23 at 2100, Peripheral Intravenous Catheter and Rapid Infusion Catheter, when no infusion to maintain patency Given 05/15/2023 9: 02 AM PRODUCTION PLANNER SCHEDULER 3 mL Given 05/14/2023 8:19 PM PRODUCTION PLANNER SCHEDULER 3 mL Given 05/14/2023 9:54 AM PRODUCTION PLANNER SCHEDULER 3 mL spironolactone tablet 25 mg (ALDACTONE) 25 mg, oral, Daily, First dose on Tue05/13/23 at 1045 Given 05/16/2023 9:16 AM PRODUCTION PLANNER SCHEDULER 25 mg Given 05/15/2023 9:00 AM PRODUCTION PLANNER SCHEDULER 25 mg Given 05/14/2023 8:41 AM PRODUCTION PLANNER SCHEDULER 25 mg tamsulosin 24 hr capsule 0.8 mg (FLOMAX) 0.8 mg, oral, Daily at bedtime, First dose on Tue05/11/23 at 2100, Swallow whole. Do NOT crush, chew or open capsule. Given 05/15/2023 9:06 PM PRODUCTION PLANNER SCHEDULER 0.8 mg Given 05/14/2023 8:15 PM PRODUCTION PLANNER SCHEDULER 0.8 mg Given 05/13/2023 10:01 PM PRODUCTION PLANNER SCHEDULER 0.8 mg documented in this encounter Active and Recently Administered Medications Times are shown in PRODUCTION PLANNER SCHEDULER. Scheduled Medication Order 05/14/2023 05/15/2023 05/16/2023 acetaminophen tablet 1,000 mg (TYLENOL) 1,000 mg, oral, 4 times daily, First dose on Tue05/11/23 at 1700, Not to exceed 4 grams of acetaminophen in 24 hours all sources 0840 (Given - Provider: Lorelei Hinds R.N.)1210 (Given - Provider: Lorelei Hinds R.N.)1630 (Given - Provider: Lavonne Craig R.N.)2200 (Given - Provider: Lavonne Craig R.N.) 0900 (Given - Provider: Veronique Norman R.N.)1204 (Given - Provider: Veronique Norman R.N.)1800 (Given - Provider: Veronique Norman R.N.)2115 (Not Given - Provider: Ania Huizar R.N. - Reason: Contraindicated) 09 (Given - Provider: Dontae Hauser R.N.) acetic acid 0.25 % irrigation solution (sterile) 1 Application 1 Application, topical, 2 times daily, First dose on Tue05/13/23 at 1215, Pannus: see wound care order. 0954 (Given - Provider: Lorelei Hinds R.N.)2018 (Given - Provider: Lavonne Craig R.N.) 900 (Given - Provider: Veronique Norman R.N.)2106 (Not Given - Provider: Ania Huizar R.N. - Reason: Other) 09 (Given - Provider: Dontae Hauser R.N.) allopurinoL tablet 300 mg (ZYLOPRIM) 300 mg, oral, Daily, First dose on Tue05/12/23 at 0900 0841 (Given - Provider: Lorelei Hinds R.N.) 0900 (Given - Provider: Veronique Norman R.N.) 0916 (Given - Provider: Dontae Hauser R.N.) atorvastatin tablet 20 mg (LIPITOR) 20 mg, oral, Daily at bedtime, First dose on Tue05/11/23 at 2100, atorvastatin 20 mg oral daily was interchanged for pravastatin oral daily 2015 (Given - Provider: aLvonne Craig R.N.) 2105 (Given - Provider: Ania Huizar R.N.) dilTIAZem CD 24 hr capsule 240 mg (CARDIZEM CD/CARTIA XT) 240 mg, oral, 2 times daily, First dose on Tue05/11/23 at 2100, Swallow whole. Do NOT crush, chew or open capsule. 0841 (Given - Provider: Lorelei Hinds R.N.)2014 (Given - Provider: Lavonne Craig R.N.) 0900 (Given - Provider: Veronique Norman R.N.)2104 (Given - Provider: Ania Huizar R.N.) 0917 (Given - Provider: Conrad JamesN.) DULoxetine DR capsule 30 mg (CYMBALTA) 30 mg, oral, 2 times daily, First dose on Tue05/11/23 at 2100, See tube feeding guidelines for tube feeding administration instructions. 0841 (Given - Provider: Lorelei Hinds R.N.)2015 (Given - Provider: Lavonne Craig R.N.) 0900 (Given - Provider: Veronique Norman R.N.)2105 (Given - Provider: Ania Huizar R.N.) 0916 (Given - Provider: Dontae Hauser R.N.) enoxaparin injection 40 mg (LOVENOX) 40 mg, subcutaneous, 2 times daily, First dose on Tue05/16/23 at 2100 furosemide tablet 20 mg (LASIX) 20 mg, oral, 2 times daily, First dose on Tue05/15/23 at 0900 0900 (Given - Provider: Veronique Norman R.N.)1800 (Given - Provider: Veronique Norman R.N.) 0917 (Given - Provider: Dontae Hauser R.N.) heparin (porcine) injection 7,500 Units 7,500 Units, subcutaneous, Every 8 hours scheduled, First dose on Tue05/12/23 at 2200, For 12 doses 0627 (Given - Provider: Nemo Edwards R.N.)1446 (Given - Provider: Lorelei Hinds R.N.)2225 (Given - Provider: Lavonne Craig R.N.) 0652 (Given - Provider: Satish Zacarias R.N.)1331 (Given - Provider: Veronique Norman R.N.)2106 (Given - Provider: Ania Huizar R.N.) 0626 (Given - Provider: Satish Zacarias R.N.) insulin aspart U-100 injection 0-13 Units (NovoLOG FlexPen) 0-13 Units, subcutaneous, 3 times daily, First dose on Tue05/13/23 at 1700, Insulin Scale: Moderate Correction Scale, 140 - 179: 2 units, 180 - 219: 4 units, 220 - 259: 6 units, 260 - 299: 8 units, 300 - 339: 10 units, 340 - 379: 12 units, 380 - 399: 13 units, Greater than 399: Call service writing Insulin orders 0838 (Given - Provider: Lorelei Hinds R.N.)1215 (Given - Provider: Lorelei Hinds R.N.)1631 (Given - Provider: Lavonne Craig R.N.) 0900 (Given - Provider: Veronique Norman R.N.)1413 (Given - Provider: Veronique Norman R.N.)1800 (Given - Provider: Veronique Norman R.N.) 0936 (Given - Provider: Dontae Hauser R.N.) insulin aspart U-100 injection 0-7 Units (NovoLOG FlexPen) 0-7 Units, subcutaneous, Daily at bedtime, First dose (after last modification) on Tue05/12/23 at 2200, Insulin Scale: Modified Bedtime Correction Scale, 220-259: 3 units, 260-299: 4 units, 300-339: 5 units, 340-379: 6 units, 380-399: 7 units, Greater than 399: Call service writing insulin orders 2034 (Given - Provider: Lavonne Craig R.N.) 2109 (Given - Provider: Ania Huizar R.N.) insulin glargine injection 26 Units 26 Units, subcutaneous, Daily at bedtime, First dose (after last modification) on Tue05/13/23 at 2100 2034 (Given - Provider: Lavonne Craig R.N.) 2110 (Given - Provider: Ania Huizar R.N.) levothyroxine tablet 100 mcg (SYNTHROID, LEVOTHROID) 100 mcg, oral, Daily before breakfast, First dose on Tue05/12/23 at 0700, Take along with 125 mcg for a total daily dose of 225 mcg. 0627 (Given - Provider: Nemo Edwards R.N.) 0653 (Given - Provider: Satish Zacarias R.N.) 0624 (Given - Provider: Satish Zacarias R.N.) levothyroxine tablet 125 mcg (SYNTHROID, LEVOTHROID) 125 mcg, oral, Daily before breakfast, First dose on Tue05/12/23 at 0700, Take along with 100 mcg for a total daily dose of 225 mcg. 0630 (Given - Provider: Nemo Edwards R.N.) 0653 (Given - Provider: Satish Zacarias R.N.) 0625 (Given - Provider: Satish Zacarias R.N.) magnesium oxide tablet 400 mg (MAG-OX) (COMPLETED) 400 mg, oral, 2 times daily, First dose on Tue05/12/23 at 2100, For 3 days, Starting evening of surgery. Hold for diarrhea or output greater than 1500 mL/day 08 (Given - Provider: Lorelei Hinds R.N.)2014 (Given - Provider: Lavonne Craig R.N.) nystatin 100,000 unit/gram cream 1 Application (MYCOSTATIN) 1 Application, topical, 2 times daily, First dose on Tue05/13/23 at 1215, Pannus: see wound care order. 0954 (Given - Provider: Lorelei Hinds R.N.)2018 (Given - Provider: Lavonne Craig R.N.) 0901 (Given - Provider: Veronique Norman R.N.)2116 (Not Given - Provider: Ania Huizar R.N. - Reason: Other) 0921 (Given - Provider: Dontae Hauser R.N.) nystatin 100,000 unit/gram powder 1 Application (NYSTOP) 1 Application, topical, 2 times daily, First dose on Tue05/13/23 at 1215, Pannus: apply to affected area between treatments- see wound care order 1210 (Given - Provider: Lorelei Hinds R.N.)2231 (Given - Provider: Lavonne Craig R.N.) 1150 (Given - Provider: Veronique Norman R.N.)2253 (Not Given - Provider: Ania Huizar R.N. - Reason: Other) pantoprazole DR tablet 40 mg (PROTONIX) 40 mg, oral, Daily before breakfast, First dose on Tue05/12/23 at 0700, Swallow whole. Do NOT crush, chew, or split tablet. 0626 (Given - Provider: Nemo Edwards R.N.) 0652 (Given - Provider: Satish Zacarias R.N.) 0624 (Given - Provider: Satish Zacarias R.N.) pregabalin capsule 300 mg (LYRICA) 300 mg, oral, 2 times daily, First dose on Tue05/11/23 at 2100 0841 (Given - Provider: Lorelei Hinds R.N.)2015 (Given - Provider: Lavonne Craig R.N.) 0859 (Given - Provider: Veronique Norman R.N.)2105 (Given - Provider: Ania Huizar R.N.) 0916 (Given - Provider: Dontae Hauser R.N.) sodium bicarbonate tablet 1,300 mg 1,300 mg, oral, 3 times daily, First dose on Tue05/11/23 at 2100 0841 (Given - Provider: Lorelei Hinds R.N.)1445 (Given - Provider: Lorelei Hinds R.N.)2014 (Given - Provider: Lavonne Craig R.N.) 0859 (Given - Provider: Veronique Norman R.N.)1331 (Given - Provider: Veronique Norman R.N.)210 (Given - Provider: Ania Huizar R.N.) 0916 (Given - Provider: Dontae Hauser R.N.) sodium chloride 0.9 % injection 3 mL 3 mL, intravenous, Every 12 hours scheduled, First dose on Tue05/11/23 at 2100, Peripheral Intravenous Catheter and Rapid Infusion Catheter, when no infusion to maintain patency 0954 (Given - Provider: Lorelei Hinds R.N.)2018 (Given - Provider: Lavonne Craig R.N.) 0902 (Given - Provider: Veronique Norman R.N.)211 (Not Given - Provider: Ania Huizar R.N. - Reason: Order parameters not met) 0920 (Not Given - Provider: Dontae Hauser R.N. - Reason: Loss of IV access) spironolactone tablet 25 mg (ALDACTONE) 25 mg, oral, Daily, First dose on Tue05/13/23 at 1045 0841 (Given - Provider: Lorelei Hinds R.N.) 0900 (Given - Provider: Veronique Norman R.N.) 0916 (Given - Provider: Dontae Hauser RAjitNAjit) tamsulosin 24 hr capsule 0.8 mg (FLOMAX) 0.8 mg, oral, Daily at bedtime, First dose on Tue05/11/23 at 2100, Swallow whole. Do NOT crush, chew or open capsule. 2014 (Given - Provider: Lavonne Craig RAjitNAjit) 2105 (Given - Provider: Ania Huizar RAjitNAjit) PRN Medication Order 05/14/2023 05/15/2023 05/16/2023 HYDROmorphone (PF) injection 0.2 mg (DILAUDID) 0.2 mg, intravenous, Every 2 hour PRN, severe pain or score 7-10 of 10, breakthrough pain, Starting on Tue05/11/23 at 1449, For breakthrough pain unrelieved 30 minutes after PRN oral pain medication is used or if unable to take oral pain medication. hydrOXYzine tablet 10 mg (ATARAX) 10 mg, oral, Every 6 hours PRN, anxiety, Starting on Tue05/11/23 at 1438 naloxone injection 0.1 mg (NARCAN) 0.1 mg, intravenous, Every 5 min PRN, reversal, respiratory depression, For RASS Score -4 or less, respiratory rate of less than 8 breaths/min. Notify provider/service and rapid response team (if available at institution)., Starting on Tue05/11/23 at 1449, For 3 doses ondansetron ODT disintegrating tablet 4 mg (ZOFRAN-ODT) 4 mg, oral, Every 6 hours PRN, nausea, vomiting, Starting on Tue05/11/23 at 1449, When splitting ODT at bedside, handle with gloves and a pill splitter to prevent moisture contact. oxyCODONE IR tablet 10 mg (ROXICODONE)(Linked Group 1) 10 mg, oral, Every 4 hours PRN, severe pain or score 7-10 of 10, Starting on Tue05/11/23 at 1449 oxyCODONE IR tablet 5 mg (ROXICODONE)(Linked Group 1) 5 mg, oral, Every 4 hours PRN, moderate pain or score 4-6 of 10, Starting on Tue05/11/23 at 1449 sodium chloride 0.9 % injection 10 mL 10 mL, intravenous, As needed, line care, Starting on Tue05/11/23 at 1444, Peripheral Intravenous Catheter and Rapid Infusion Catheter, prior to blood sampling, post blood transfusion or post blood sampling sodium chloride 0.9 % injection 3 mL 3 mL, intravenous, As needed, line care, Starting on Tue05/11/23 at 1444, Prior to and following infusion and between multiple consecutive infusions: sodium chloride 0.9 % injection Linked Groups Order Group 1: oxyCODONE IR tablet 5 mg (ROXICODONE)Jump to med 5 mg, oral, Every 4 hours PRN, moderate pain or score 4-6 of 10, Starting on Tue05/11/23 at 1449 Or oxyCODONE IR tablet 10 mg (ROXICODONE)Jump to med 10 mg, oral, Every 4 hours PRN, severe pain or score 7-10 of 10, Starting on Tue05/11/23 at 1449 documented in this encounter Additional Health Concerns Infection Onset Date Last Indicated Resolved Time COVID19 Pending 05/15/2023 05/15/2023 05/15/2023 1 1:56 PM PRODUCTION PLANNER SCHEDULER COVID19 05/15/2023 05/15/2023 06/04/2023 6:10 AM PRODUCTION PLANNER SCHEDULER Assessment Noted Time PHQ-9 Depression Total Score: 7 09/04/19 16 9:47 AM CDT documented as of this encounter Care Teams Family Advocate Relationship Specialty Start Date End Date Eli Rondon APRN, C.N.P., R.N. [address] [place] [phone] PCP - General Family Medicine 04/27/23 07/07/23 documented as of this encounter
--- OUTSIDE RECORDS SUMMARY | 2023-08-11 11:13 | XMS_ITS | Encounter Summary ---
Author Name Unknown Organization [facility] Address [address] [place] [id number] Care Team Providers Care Medical Office Technician Name Role Phone Eli Rondon APRN, C.N.P., R.N. Primary Care Provider Reason for Visit * Outpatient (Routine) - Closed Specialty Diagnoses / Procedures Referred By Michele douglas Referred To Contact Colon and Rectal Surgery Bonny Clifton M.B., BEstela, M.D. [address] [place] [phone] [facility] Referral ID Status Reason Start Date Expiration Date Visits Re quested Visits Authorized [id number] Closed 03/28/2023 03/27/2026 1 1 Encounter Details Date Type Department Care Team (Late st Contact Info) Description 05/09/2023 3:00 PM FORMULATION TECHNICIAN Telemedicine Division of Colon and Rectal Surgery in [place], [place] [address] [place] [phone] Bonny Clifton M.B., B.ChAjit, M.D. [address] [place] [phone] Malignant Neoplasm Of Colon Ascending (HCC) (Primary Dx); Diabetes Mellitus Type 2 Peripheral Neuropathy (HCC); Apnea Sleep Obstructive; Chronic Kidney Disease (CKD), Stage 3a Glomerular Filtration Rate (GFR) 45 To 59 (HCC); Hypothyroidism; Depression Major Recurrent (HCC); Decline Functional Status; Morbid Obesity Body Mass Index 45.0-49.9 Adult (HCC) Social History Tobacco Use Types Packs/Day Years Used Date Smoking Tobacco: Former Cigarettes 2 18 0 09/16/1966 - 06/30/1984 Passive Smoke Exposure: Past Smokeless Tobacco: Never Alcohol Use Standard Drinks/Week Comments Not Currently 0 (1 standard drink = 0.6 oz pur e alcohol) rarely, one or two a year [facility] Utilities Answer Date Recorded In the past 12 months has e [employer], oil, or water [facility] threatened to shut off services in your home? No 04/22/2023 Humiliation, Afraid, Rape, and Kick questionnair e Answer Date Recorded Within the last year, have y ou been afraid of your partner or ex-partner? No 04/22/2023 Within the last year, have y ou been humiliated or emotionally abused in other ways by your partner or ex-partner? No Within the last year, have y ou been kicked, hit, slapped, or otherwise physically hurt by your partner or ex-partner? No 04/22/2023 Within the last year, have y ou been raped or forced to have any kind of sexual activity by your partner or ex-partner? No 04/22/2023 Social Connection and Isolat ion Panel [NHANES] Answer Date Recorded In a typical week, how many times do you talk on the phone with family, friends, or neighbors? More than three times a week 12/31/2021 How often do you get togethe r with friends or relatives? Once a week 12/31/2021 How often do you attend chur or tenriism services? More than 4 times per year 12/31/2021 Do you belong to any clubs o r organizations such as tenriism groups, unions, fraternal or athletic groups, or [...] heating? Not hard at all 02/11/2023 [facility] - [...] the money to buy more. Never true 04/22/19 Within the past 12 months, t he food you bought just didn't last and you didn't have money to get more. Never true 04/22/2023 PRAPARE - Transportation Answer Date Re corded In the past 12 months, has l ack of transportation kept you from medical appointments or from getting medications? Yes 08/2023 In the past 12 months, has l ack of transportation kept you from meetings, work, or from getting things needed for daily living? No 04/22/2023 Nutrition Answer Date Recorded On average, how [...] your living situation today? I have a [facility] place to live 04/22/2023 Education Answer Date Recorded What is the highest level of school you have completed or the highest degree you have received? Bachelor's degree (e.g., BA, AB, BS) 09/20/2018 Sex and Gender Information Value Date Recorded Sex Assigned at Male 06/14/2018 8:36 PM FORMULATION TECHNICIAN Gender Identity Male 10/11/2022 10:17 PM CDT Sexual Orientation Choose not to disclose 2019 1:31 PM FORMULATION TECHNICIAN documented as of this encounter Consult Notes * Bonny Clifton M.B., Lyle Zambrano - 05/09/2023 3:00 PM CST SUBJECTIVE CHIEF COMPLAINT / REASON [...] optimization, transportation etc Questions answered. Kiki Salguero, Juan Manuel, MJhon. ULATION TECHNICIAN documented in this encounter Plan of Treatment Not on file documented as of this encounter Visit Diagnoses Diagnosis Malignant Neoplasm Of Colon Ascending (HCC)- Primary Diabetes Mellitus Type 2 Peripheral Neuropathy (HCC) Apnea Sleep Obstructive Chronic Kidney Disease (CKD), Stage 3a Glomerular Filtration Rate (GFR) 45 To 59 (HCC) Hypothyroidism Depression Major Recurrent (HCC) Decline Functional Status Morbid Obesity Body Mass Index 45.0-49.9 Adult (HCC) documented in this encounter Additional Health Concerns Assessment Noted Time PHQ-9 Depression Total Score: 7 09/04/19 16 9:47 AM CDT documented as of this encounter Care Teams Medical Office Technician Relationship Specialty Start Date End Date Eli Rondon APRN, C.N.P., R.N. [address] [place] [phone] PCP - General Family Medicine 04/27/23 07/07/23 documented as of this encounter
--- OUTSIDE RECORDS SUMMARY | 2023-08-11 11:13 | XMS_ITS | Encounter Summary ---
Author Name Unknown Organization [facility] Address [address] [place] [id number] Care Team Providers Care Card Writer Hand Name Role Phone Eli Rondon APRN, C.N.P., R.N. Primary Care Provider Encounter Details Date Type Department Care Team (Late st Contact Info) Description 05/08/2023 CPAP Download Remote Patient Monitoring [facility] [address] [place] [phone] [facility], Provider Social History Tobacco Use Types Packs/Day Years Used Date Smoking Tobacco: Former Cigarettes 2 18 0 09/16/1966 - 06/30/1984 Passive Smoke Exposure: Past Smokeless Tobacco: Never Alcohol Use Standard Drinks/Week Comments Not Currently 0 (1 standard drink = 0.6 oz pur e alcohol) rarely, one or two a year [facility] Utilities Answer Date Recorded In the past 12 months has [employer], gas, oil, or water [facility] threatened to shut off services in your [...] How often do you attend chur or yazidi services? More than 4 times per year 12/31/2021 Do you belong to any clubs o r organizations such as scientologist groups, unions, fraternal or athletic groups, or [...] and heating? Not hard at all 02/11/2023 [facility] - Occupational [...] your living situation today? I have a [facility] place to live 05/12/2023 Education Answer Date Recorded What is the highest level of school you have completed or the highest degree you have received? Bachelor's degree (e.g., BA, AB, BS) 09/20/2018 Sex and Gender Information Value Date Recorded Sex Assigned at Male 06/14/2018 8:36 PM BIOMEDICAL EQUIPMENT TECH Gender Identity Male 10/11/2022 10:17 PM CDT Sexual Orientation Choose not to disclose 2019 1:31 PM BIOMEDICAL EQUIPMENT TECH documented as of this encounter Plan of Treatment Not on file documented as of this encounter Visit Diagnoses Not on filedocumented in this encounter Additional Health Concerns Infection Onset Date Last Indicated Resolved Time COVID19 Pending 05/15/2023 05/15/2023 05/15/2023 1 1:56 PM BIOMEDICAL EQUIPMENT TECH COVID19 05/15/2023 05/15/2023 06/04/2023 6:10 AM BIOMEDICAL EQUIPMENT TECH Assessment Noted Time PHQ-9 Depression Total Score: 7 09/04/19 16 9:47 AM CDT documented as of this encounter Care Teams Card Writer Hand Relationship Specialty Start Date End Date Eli Rondon APRN, C.N.P., R.N. [address] [place] [phone] PCP - General Family Medicine 04/27/23 07/07/23 documented as of this encounter
--- OUTSIDE RECORDS SUMMARY | 2023-08-11 11:13 | XMS_ITS | Encounter Summary ---
Author Name Unknown Organization [facility] Address [address] [place] [address] Care Team Providers Care Staffing Program Manager Name Role Phone Eli Rondon APRN, C.NBri., R.N. Primary Care Provider Reason for Visit * Auth/Cert (Routine) Specialty Diagnoses / Procedures Referred By Contlulu t Referred To Contact Diagnoses Malignant Neoplasm Of Colon (HCC) Bowel prep for surgery Procedures OTHER CONVERTED SHX (SEE COMMENT) Referral ID Status Reason Start Date Expiration Date Visits Re quested Visits Authorized [id number] 1 1 Encounter Details Date Type Department Care Team (Late st Contact Info) Description 05/12/2023 10:19 AM [employer] Anesthesia Event [facility] [address] [place] [address] Shin Woods M.D. [address] [place] [address] Marcus Tiwari RAjitNAjit, CCRN Anesthesia Record Procedure Summary Procedure Name Responsible Anesthesiologist Anesthesia Start Time Anesthesia Stop Time LAPAROSCOPIC COLECTOMY RIGHT, ANASTOMOSIS. (Right) Shin Woods M.D. 05/12/23 1019 05/12/23 1336 Events Date Time Event Comment 05/12/2023 1019 An Start Machine/Equipme nt Checked Infection Precautions Followed Procedure/Site Verified NPO Status Verified Supine Standard ASA Monitors Applied 1029 An Induction 1031 An Intubation 1056 Turnover to Proceduralist 1128 Proc Start 1309 Proc Fin 1318 Turnover to ANE Staff 1325 Airway Removal Criteria Met 1325 Extubation/Airway Removed 1336 An End I completed my handoff to the receiving staff during which we 1. Identified the patient 2. Identified the responsible provider 3. Reviewed the pertinent medical history 4. Discussed the surgical course 5. Reviewed intra-op anesthesia management and issues during anesthesia 6. Set expectations for post-procedure period 7. Allowed opportunity for questions and acknowledgement of understanding. Meds Name Total fentanyl injection 50 mcg/mL 150 mcg lidocaine 2% (mg) injection 100 mg rocuronium 10 mg/mL injection 150 mg phenylephrine 100 mcg/mL injection 400 m cg ePHEDrine PF 5 mg/mL syringe injection 2 0 mg ondansetron 4 mg/2 mL injection 4 mg sugammadex 100 mg/mL injection 380 mg propofol 10 mg/mL injection 220 mg ceFAZolin injection 3,000 mg (ANCEF) 2 g heparin (porcine) injection 7,500 Units 7,500 Units metroNIDAZOLE in NaCl (iso osm) IVPB 500 mg (FLAGYL) 500 mg dexAMETHasone (DECADRON) injection 4 mg/ mL 8 mg HYDROmorphone PF 2 mg/mL injection 0.5 m g ketamine 10 mg/mL injection 10 mg Lactated Ringers Free Drip 1,200 mL lactated ringers free drip 200 mL * Agents No agents on file. * Blood No blood administrations on file. Lines, Drains, and Airways Type Details Placement Removal Scope Sites 05/12/23; 1251; Abdo men; 1; Umbilicus; 2; Left, Lower, Lateral; 3; Left, Upper, Lateral; Dermabond 05/12/23 1251 by Daniela Lu, R.N. Peripheral IV Placement Date: 05/11/23; Placement Time: 1558; Catheter Size: 20 G; Orientation: Anterior, Lower, Right; Location: Forearm; Site Prep: Chlorhexidine (Preferred); Technique: Ultrasound guidance; Inserted by: juliana; Insertion Attempts: 1; Removal Date: 05/16/23; Removal Time: 09; Removal Reason: Patient discharged 05/11/23 1558 by Diana Sahni, R.NAjit 05/16/23 0930 by Paige Sams R.N. ETT Placement Date: 05/12/23; Placement Time: 1031 (created via procedure documentation); Mask Ventilation: Difficult mask (ie. two-handed) without oral airway; Technique: Video laryngoscopy; Type: Standard ETT; Single Lumen Tube Size: 7.5 mm; Cuffed: Yes; Location: Oral; Grade View: Grade 1; Insertion Attempts: 1; Placement Verification: Bilateral breath sounds, Positive ETCO2, Symmetrical chest wall movement; Removal Date: 05/12/23; Removal Time: 1325 05/12/23 1031 by Marcus Tiwari R.N., CCRN 05/12/23 1325 by [facility]ari R.N., [facility] Peripheral IV Placement Date: 05/12/23; Placement Time: 1033; Catheter Size: 18 G; Orientation: Left; Location: Wrist; Inserted by: EMIGDIO; Removal Date: 05/16/23; Removal Time: 09; Removal Reason: Patient discharged 05/12/23 1033 by Marcus Tiwari R.N., CCRN 05/16/23 0930 by Paige Sams R.N. Arterial Line Placement Date: 05/12/23; Placemnt Time: 1045 (created via procedure documentation); Size: 20 G; Orientation: Right; Location: Radial; Site Prep: Chlorhexidine (Preferred); Technique: Ultrasound guidance; Insertion Attempts: 2; Securement: Securement dressing, Securement device; Removal Date: 05/12/23; Removal Time: 143; Removal Reason: Per protocol 05/12/23 1045 by Marcus Tiwari R.N., CCRN 05/12/23 1437 by Yolanda Manning RAjitNAjit Indwelling Urinary Catheter Placement Date: 05/12/23; Placement Time: 1252; Inserted by: Emerald CHING; Type: Non-latex; Size: 16 Fr.; Balloon Size: 10 mL; Urine Returned: Yes; Removal Date: 05/13/23; Removal Time: 09; Removal Reason: Per order 05/12/23 1252 by Daniela Lu, R.NAjit 05/13/23 0925 by Amirah Carreon R.N. NG/OG Tube 05/12/23; 1315; Orogastric; 18 Fr; Center; 05/12/23; 1319 05/12/23 1315 by Marcus Tiwari R.N., CCRN 05/12/23 1319 by Marcus Tiwari R.N., CCRN documented in this encounter Social History Tobacco Use Types Packs/Day Years Used Date Smoking Tobacco: Former Cigarettes 2 18 0 09/16/1966 - 06/30/1984 Passive Smoke Exposure: Past Smokeless Tobacco: Never Alcohol Use Standard Drinks/Week Comments Not Currently 0 (1 standard drink = 0.6 oz pur e alcohol) rarely, one or two a year [facility] [employer] Answer Date Recorded In the past 12 months has e W[employer] T[employer], gas, oil, or water [employer] threatened to shut off services in your [...] and heating? Not hard at all 02/11/2023 [facility] [place] of Occupat ional Health - Occupational Stress [...] Sex Assigned at Male 06/14/2018 8:36 PM [employer] Gender Identity Male 10/11/2022 10:17 PM CDT Sexual Orientation Choose not to disclose 2019 1:31 PM [employer] documented as of this encounter OR Notes * Anesthesia Postprocedure Evaluation - Cam Cardoza M.D., Ph.D. - 05/12/2023 3:13 PM CST Patient: Zoltan Olivera Procedure Summary Date: 05/12/23 Room / Location: [place] [address] / [facility] in [place], [place] Anesthesia Start: 1019 Anesthesia Stop: 1336 Procedure: LAPAROSCOPIC COLECTOMY RIGHT, ANASTOMOSIS. (Right) Diagnosis: Malignant Neoplasm Of Colon Ascending (HCC) (Malignant Neoplasm Of Colon Ascending (HCC) [C18.2].) Providers: Bonny Clifton M.B., BEstela MJhon. Responsible Provider: Shin Woods M.D. Anesthesia Type: general ASA Status: 3 Anesthesia Type: general Last vitals Vitals Value Taken Time BP 127/51 05/12/23 1500 Temp 36.4 ??C 05/12/23 1330 Pulse 74 05/12/23 1513 Resp 17 05/12/23 1513 SpO2 97 % 05/12/23 1513 Vitals shown include unfiled device data. Please reference Vitals flowsheet for most recent vital signs. Anesthesia Post Evaluation Patient Disposition: general care unit Cardiovascular status: hemodynamics (HR & BP) acceptable Respiratory status: patent airway with spontaneous effort Temperature: normothermic Oxygen requirements: nasal cannula Level of consciousness: awake Pain score: pain adequately controlled and/or at baseline Post Op nausea/vomiting: none Hydration status: euvolemic [employer] * Anesthesia Procedure Notes - Marcus Tiwari R.N., CCRN - 05/12/2023 10:58 AM CSTAssociated Order(s): Airway Airway Date/Time: 05/12/2023 10:31 AM Performed by: Marcus Tiwari R.N., CCRN Authorized by: Shin Woods M.D. Patient location during procedure: OR / Procedure Area PROCEDURE DETAILS: Mask difficulty assessment: difficult mask (i.e.two-handed) without oral airway Final airway type: video laryngoscope Laryngeal Manipulation: no Final best view of glottic structures - Cormack/Lehane Score: grade 1 ETT location: oral VL device: glide scope [place] scope blade size: 4 Tube size: 7.5 ETT distance at teeth/gum: 24 Oral tube type: standard ETT Cuffed: yes Leak Test Performed: no Number of attempt to successful placement: 1 Airway confirmation: bilateral breath sounds, positive ETCO2 and bilateral chest rise Other previous techniques attempted: none PRE PROCEDURE DETAILS: Pre evaluation for airway management: procedure Urgency: elective Preop assessment of probable difficulty: questionable / suspicious difficult airway Preoxygenation: bag valve mask SEDATION / ANESTHESIA Anesthesia method: anesthesia POST PROCEDURE DETAILS: Procedure outcome: successful Notable Events: no complications [employer] * Anesthesia Procedure Notes - Marcus Tiwari R.N., CCRN - 05/12/2023 10:57 AM CSTAssociated Order(s): Invasive Catheter Invasive Catheter Date/Time: 05/12/2023 10:45 AM Performed by: Marcus Tiwari R.N., CCRN Authorized by: Shin Woods M.D. Location: OR PROCEDURE DETAILS: Line type: arterial Laterality: right Location: radial Location details: new site Age group: adult Catheter diameter: 20 Ga Technique: ultrasound guided Ultrasound guidance: image not saved Monitored: yes Number of attempts: 2 UNIVERSAL PROTOCOL All [...] utilized as applicable for the procedure.: yes Skin preparation: chlorhexidine SEDATION / ANESTHESIA Anesthesia method: none POST-PROCEDURE DETAILS: Procedure completed successfully: yes Line secured: secured with sutureless device Chlorhexidine disc around insertion site and under catheter with slight turn: yes Notable Events - arterial: none [employer] * Anesthesia Preprocedure Evaluation - Shin Woods M.D. - 05/12/2023 9:54 AM CST Preprocedure Anesthesia & H&P Assessment Procedure Summary Date/Time: 05/12/23 1234 Procedure: LAPAROSCOPIC COLECTOMY RIGHT, ANASTOMOSIS. (Right) Diagnosis: Malignant Neoplasm Of Colon Ascending (HCC) [C18.2] Pre-op diagnosis: Malignant Neoplasm Of Colon Ascending (HCC) [C18.2]. Location: [place] [address] / [facility] in [place], [place] Providers: Bonny Clifton M.B., Lyle Zambrano Pertinent components of the patient's history including current problem list, medical history, surgical history, family history, social history, medications and allergies were reviewed. Present illness and pre-op diagnosis were confirmed. The planned surgery / procedure was verified with the patient / legal guardian. 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) (+) Hypothyroidism PSYCH (+) Depression Major Recurrent (HCC) HEME (+) Anemia Iron Deficiency ONC (+) Malignant Neoplasm Of Cecum (HCC) (+) Malignant Neoplasm Of Colon (HCC) (+) Malignant Neoplasm Of Colon Ascending (HCC) Other (+) Morbid Obesity Body Mass Index 45.0-49.9 Adult (HCC) (+) Morbid Severe Obesity Due To Excess Calories (HCC) OBJECTIVE PHYSICAL EXAMINATION Airway (HEENT) Mallampati: III TM Distance: >3 FB Neck ROM: Full Mouth Opening: >3 cm Upper Lip Bite Test Class: II Facies (pediatrics): normal Cardiovascular Rhythm: Regular Rate: Normal Cardiovascular Assessment: cardiovascular normal Functional Capacity: >4 METS Pulmonary Pulmonary Assessment: Clear General / Constitutional Constitutional Assessment: Generalized obesity General State of Health:: healthy appearing Neurological Normal Dental Normal ASSESSMENT / PLAN ANESTHESIA PLAN ASA: 3 Anesthesia Plan: general Patient seen and allergies reviewed; anesthesia plan and risks discussed directly with patient / legal guardian, or through an department head [employer]; patient evaluated and approved for anesthesia / sedation Risks/Benefits/Alternatives of Blood transfusion discussed with patient / legal guardian, includingan opportunity to ask questions and/or decline some or all transfusion therapies. The patient / legal guardian consented to the use of all blood products, as deemed medically necessary Approval to Proceed: approved for anesthesia [employer] documented in this encounter Plan of Treatment Not on file documented as of this encounter Procedures Procedure Name Priority Date/Time Associated Diagnosis Comments LDA ANE ARTERIAL LINE INSERTION Routine 05/12/2023 10:45 AM [employer] MO ARTL CATH/CNULA MONITOR PERC Routine 05/12/2023 10:45 AM [employer] LDA ANE ENDOTRACHEAL AIRWAY Routine 05/12/2023 10:31 AM [employer] documented in this encounter Results * MO ARTL CATH/CNULA MONITOR PERC, LDA ANE ARTERIAL LINE INSERTION (05/12/2023 10:45 AM [employer]) Narrative Shin Woods M.D. - 05/12/2023 10:45 AM [employer] Marcus Tiwari R.N., CCRN ? 05/12/2023 10:58 [...] LDA ANE ENDOTRACHEAL AIRWAY (05/12/2023 10:31 AM [employer]) Narrative Marcus Tiwari R.N., CCRN - 05/12/2023 10:31 AM [employer] Marcus Tiwari R.N., CCRN ? 05/12/2023 10:59 [...] ETT location: oral VL device: glide scope [place] scope blade size: 4 Tube size: 7.5 [...] complications Shin Woods M.D. ANESTHESIA ORDERA BLES documented in this encounter Visit Diagnoses Not on filedocumented in this encounter Administered Medications Inactive Administered Medications - up to 3 most recent administrations Medication Order MAR Action Action Date Dose Rate Site ceFAZolin injection 3,000 mg (ANCEF) 3,000 mg (rounded from 4,500 mg = 25 mg/kg ? 180 kg), intravenous, Once, On Cyndy 05/12/23 at 1000, For 1 dose, Intra-Op, Administer within 1 hour prior to surgical incision If needed, reconstitute vial per package insert instructions. See IVAG for administration guidelines., Drug Monitoring Program: Pharmacist to adjust medication dosing based on indication and drug clearance factors., Indications: Prophylaxis, surgical Given 05/12/2023 11:11 AM [employer] 2 g dexAMETHasone injection (DECADRON) intravenous, As needed, Starting on Cyndy 05/12/23 at 1059, Anesthesia Intra-op Given 05/12/2023 10:59 AM [employer] 8 mg ePHEDrine (PF) injection intravenous, As needed, Starting on Cyndy 05/12/23 at 1149, Anesthesia Intra-op Given 05/12/2023 12:53 PM [employer] 10 mg Given 05/12/2023 11:49 AM [employer] 10 mg fentaNYL injection (SUBLIMAZE) intravenous, As needed, Starting on Cyndy 05/12/23 at 1029, Anesthesia Intra-op Given 05/12/2023 1:07 PM [employer] 50 mcg Given 05/12/2023 10:29 AM [employer] 100 mcg heparin (porcine) injection 7,500 Units 7,500 Units, subcutaneous, Once, On Cyndy 05/12/23 at 1000, For 1 dose, Intra-Op, Administer prior to induction of anesthesia. Given 05/12/2023 10:59 AM [employer] 7,500 Units HYDROmorphone (PF) injection (DILAUDID) intravenous, As needed, Starting on Cyndy 05/12/23 at 1215, Anesthesia Intra-op Given 05/12/2023 12:15 PM [employer] 0.5 mg ketamine injection (KETALAR) intravenous, As needed, Starting on Cyndy 05/12/23 at 1240, Anesthesia Intra-op Given 05/12/2023 12:40 PM [employer] 10 mg Lactated Ringer's intravenous, Continuous Infusion: Per Instructions PRN, Starting on Cyndy 05/12/23 at 1019, Anesthesia Intra-op New Bag 05/12/2023 12:31 PM [employer] New Bag 05/12/2023 10:19 AM [employer] Lactated Ringer's intravenous, Continuous Infusion: Per Instructions PRN, Starting on Cyndy 05/12/23 at 1033, Anesthesia Intra-op New Bag 05/12/2023 10:33 AM [employer] lidocaine (PF) (cardiac) injection intravenous, As needed, Starting on Cyndy 05/12/23 at 1031, Anesthesia Intra-op Given 05/12/2023 10:29 AM [employer] 100 mg metroNIDAZOLE in NaCl (iso osm) IVPB 500 mg (FLAGYL) 500 mg, intravenous, at 200 mL/hr, Administer over 30 Minutes, Once, On Cyndy 05/12/23 at 1000, For 1 dose, Intra-Op, Administer within 1 hour prior to surgical incision, Indications: Prophylaxis, surgical Given 05/12/2023 10:50 AM [employer] 500 mg ondansetron (PF) injection (ZOFRAN) intravenous, As needed, Starting on Cyndy 05/12/23 at 1302, Anesthesia Intra-op Given 05/12/2023 1:02 PM [employer] 4 mg phenylephrine injection intravenous, As needed, Starting on Cyndy 05/12/23 at 1039, Anesthesia Intra-op Given 05/12/2023 12:49 PM [employer] 100 mc g Given 05/12/2023 11:23 AM [employer] 100 mcg Given 05/12/2023 10:39 AM [employer] 200 mcg propofoL injection (DIPRIVAN) intravenous, As needed, Starting on Cyndy 05/12/23 at 1029, Anesthesia Intra-op Given 05/12/2023 11:14 AM [employer] 20 mg Given 05/12/2023 10:29 AM [employer] 200 mg rocuronium injection (ZEMURON) intravenous, As needed, Starting on Cyndy 05/12/23 at 1030, Anesthesia Intra-op Given 05/12/2023 11:31 AM [employer] 50 mg Given 05/12/2023 10:30 AM [employer] 100 mg sugammadex injection (BRIDION) intravenous, As needed, Starting on Cyndy 05/12/23 at 1309, Anesthesia Intra-op Given 05/12/2023 1:09 PM [employer] 380 mg documented in this encounter Additional Health Concerns Assessment Noted Time PHQ-9 Depression Total Score: 7 09/04/19 16 9:47 AM CDT documented as of this encounter Care Teams Staffing Program Manager Relationship Specialty Start Date End Date Eli Rondon APRN, C.N.P., R.N. [address] [place] [id number] PCP - General Family Medicine 04/27/23 07/07/23 documented as of this encounter
--- OUTSIDE RECORDS SUMMARY | 2023-08-11 11:13 | XMS_ITS | Encounter Summary ---
Author Name Unknown Organization [facility] Address [address] [place] [address] Care Team Providers Care Advertising Campaign Manager Name Role Phone Eli Rondon APRN C.N.P., R.N. Primary Care Provider Reason for Visit * Auth/Cert (Routine) Specialty Diagnoses / Procedures Referred By Contlulu t Referred To Contact Diagnoses Malignant Neoplasm Of Colon (HCC) Bowel prep for surgery Procedures OTHER CONVERTED SHX (SEE COMMENT) Referral ID Status Reason Start Date Expiration Date Visits Re quested Visits Authorized [id number] 1 1 Encounter Details Date Type Department Care Team (Late st Contact Info) Description 05/12/2023 12:34 PM VP DIRECTOR OF FINANCE - 05/12/2023 4:51 PM VP DIRECTOR OF FINANCE Surgery [facility] OR [address] [place] [address] Bonny Clifton M.B., B.Ch., M.D. [address] [place] [address] LAPAROSCOPIC COLECTOMY RIGHT, ANASTOMOSIS. Social History Tobacco Use Types Packs/Day Years Used Date Smoking Tobacco: Former Cigarettes 2 18 0 09/16/1966 - 06/30/1984 Passive Smoke Exposure: Past Smokeless Tobacco: Never Alcohol Use Standard Drinks/Week Comments Not Currently 0 (1 standard drink = 0.6 oz pur e alcohol) rarely, one or two a year [facility] Utilities Answer Date Recorded In the [...] week 12/31/2021 How often do you attend [facility] or anabaptist services? More than 4 times per year 12/31/2021 Do you belong to any clubs o r organizations such as evangelical groups, unions, fraternal or athletic groups, or [...] and heating? Not hard at all 02/11/2023 [facility] [place] [facility] Occupat ional Health - Occupational Stress [...] your living situation today? I have a [facility] place to live 05/12/2023 Education Answer Date Recorded What is the highest level of school you have completed or the highest degree you have received? Bachelor's degree (e.g., BA, AB, BS) 09/20/2018 Sex and Gender Information Value Date Recorded Sex Assigned at Male 06/14/2018 8:36 PM VP DIRECTOR OF FINANCE Gender Identity Male 10/11/2022 10:17 PM CDT Sexual Orientation Choose not to disclose 2019 1:31 PM VP DIRECTOR OF FINANCE documented as of this encounter Last Filed Vital Signs Vital Sign Reading Time Taken Comments Blood Pressure 145/66 05/12/2023 4:00 PM VP DIRECTOR OF FINANCE Pulse 78 05/12/2023 4:00 PM VP DIRECTOR OF FINANCE Temperature 36.3 ??C (97.3 ??F) 05/12/2023 4:00 PM CS T Respiratory Rate 14 05/12/2023 4:00 PM VP DIRECTOR OF FINANCE Oxygen Saturation 95% 05/12/2023 4:00 PM VP DIRECTOR OF FINANCE Inhaled Oxygen Concentration - - Weight 184 kg (404 lb 12.2 oz) 05/11/2023 2:15 P M VP DIRECTOR OF FINANCE Height 185 cm (6' 0.84) 05/11/2023 2:15 PM VP DIRECTOR OF FINANCE Body Mass Index 53.64 05/11/2023 2:15 PM VP DIRECTOR OF FINANCE documented in this encounter Discharge Summaries * Delma Ramirez APRN, C.N.P., D.N.P. - 05/16/2023 9:03 AM CST DISCHARGE SUMMARY BRIEF OVERVIEW Hospital: [facility] Discharge Provider: Bonny Clifton M.B. Primary Team: [facility] Colon and Rectal Surgery - Elodia Primary Care Providers: Eli Rondon APRN C.N.PAjit, R.* (General) [address] [place] [phone] Primary Care Provider Primary Care Provider Other [...] COLECTOMY RIGHT, ANASTOMOSIS. Bonny Clifton M.B., B.Ch., Patrice.Tania Turner M.B., B.Lebron., B.A.O. T RO OR DISCHARGE DISPOSITION Jail Facility [3] ACTIVE ISSUES REQUIRING FOLLOW UP [...] CONSULT TO CARE MANAGEMENT IP CONSULT TO PREVENTION COORDINATOR WOUND CARE CONDITION AT DISCHARGE stable Discharge instructions were provided to the patient and caregiver(s). Total time spent in discharge services today: 30 minutes. DIRECTOR OF FINANCE documented in this encounter Discharge Instructions * Attachments The following attachments cannot be sent through Care Everywhere. * Enoxaparin (By injection) (Faroese) documented in this encounter Medications at Time [...] day. 60 capsule 2022 2023 glucosamine HCl/chondroitin chung (GLUCOSAMINE-CHONDROI TIN ORAL) Take 3 tablets by [...] this encounter Progress Notes * Jaziel Monk, RAjitN. - 05/16/2023 8:52 AM CST SUBJECTIVE crook operator continues to follow the patient for discharge planning needs. The patient will discharge back to [facility] upon discharge. The patient declined additional resources. Anticipated Needs Functional Status: bathing, dressing, mobility, meal preparation, medication setup/administration, housekeeping, and shopping Assistive Devices: BiPAP/CPAP/VPAP, cell phone, walker - front wheeled, and wheelchair - manual Services/Resources: Short term rehab. Modifications to home environment: None Transportation: wheelchair van Anticipated discharge destination: [facility] VISHNU Olivera is currently hospitalized at [facility] in room [id number]. Patient was not assessed at this time. ASSESSMENT / PLAN Assessment Those noted above appear to have insight into the patient's needs at this time and are planning appropriately for discharge needs. They report agreement with the below plan with no further questions at this time. Plan Patient to return [facility]. Per service, the patient tested positive for COVID 05/15/23, he is asymptomatic. [facility] is willing to accept the patient back to the facility today asplanned. [facility] is also still willing to transport the patient, as long as he wears a mask at all time. The transport company request if any medication need to be picked up from pharmacy prior to discharge that this be completed before the transportation company arrives, to minimize exposure to others. Transportation: The ride has been scheduled for 05/16/2023 @ 10:00AM with [facility] [employer] [phone]. The fare for this ride is $450.00, patient pay. Please have the patient contact [facility] forpayment prior to transport. The patient will be picked up from their hospital room. [facility] will providethe wheelchair to be used for transport. Destination - Admitted Since 05/11/2023 Service Provider Selected Services Address Phone Fax [facility] [address] [place] [phone] -- Contact: Nursing Patient has a paid bed hold. Facility cannot manage IV antibiotics. Facility cannot manage a wound vac. Facility cannot accept weekend readmissions. COVID screening needed before patient can return: yes, guidelines required: within 24 hrs Facility prefers patient return by 2 pm. Facility oxygen provider is [facility] (phone [phone], fax [phone]) . Was the patient on oxygen at [...] if needs arise. Jaziel Monk R.N. 05/16/2023 DIRECTOR OF FINANCE * Delma Ramirez, BETHANY, C.N.P., D.N.P. - [...] Lovenox at discharge. Please initiate inpatient teaching. DIRECTOR OF FINANCE * Jean Stock M.B.B.S. - 05/15/2023 2:23 [...] Patient is being cared for by Dr. Elodia jones. Please page the service if you have any questionsor concerns. Carole WhittS PGY-1 General Surgery DIRECTOR OF FINANCE * Jean Stock M.B.B.S. - 05/14/2023 8:00 [...] service if you have any questionsor concerns. Rashid Whitt PGY-1 General Surgery DIRECTOR OF FINANCE * Jaziel Monk, R.N. - 05/13/2023 5:07 PM CST SUBJECTIVE crook operator continues to follow the patient for discharge planning needs. The patient will discharge back to [facility] upon discharge. The patient declined additional resources. Anticipated Needs Functional Status: bathing, dressing, mobility, meal preparation, medication setup/administration, housekeeping, and shopping Assistive Devices: BiPAP/CPAP/VPAP, cell phone, walker - front wheeled, and wheelchair - manual Services/Resources: Short term rehab. Modifications to home environment: None Transportation: wheelchair van Anticipated discharge destination: [facility] OBJECTIVE Zoltan Olivera is currently hospitalized at [facility] in room [id number]. Patient was not assessed at this time. ASSESSMENT / PLAN Assessment Those noted above appear to have insight into the patient's needs at this time and are planning appropriately for discharge needs. They report agreement with the below plan with no further questions at this time. Plan Patient to return [facility]. Transportation: The ride has been scheduled for 05/16/2023 @ 10:00AM with [facility] [employer] [phone]. The fare for this ride is $450.00, patient pay. Please have the patient contact [facility] forpayment prior to transport. The patient will be picked up from their hospital room. [facility] will providethe wheelchair to be used for transport. Destination - Admitted Since 05/11/2023 Service Provider Selected Services Address Phone Fax Patient Preferred [facility] [address] [facility] [place] [phone] -- Contact: Nursing Patient has a paid bed hold. Facility cannot manage IV antibiotics. Facility cannot manage a wound vac. Facility cannot accept weekend readmissions. COVID screening needed before patient can return: yes, guidelines required: within 24 hrs Facility prefers patient return by 2 pm. Facility oxygen provider is [facility] (phone [phone], fax [phone]) . Was the patient on oxygen at [...] if needs arise. Jaziel Monk R.N. 05/13/2023 DIRECTOR OF FINANCE * Kristel Bryant P.T., D.P.T. - 05/13/2023 2:44 PM CST Physical Therapy [...] order as appropriate. Kristel Bryant P.T., D.P.T. DIRECTOR OF FINANCE * Estrellita Guardado O.T., MOT - 05/13/2023 [...] please reconsult. Thanks. Keith Guardado O.T., MOT DIRECTOR OF FINANCE * Nghia Steele - 05/13/2023 1:30 PM CST [facility] Spiritual Care Progress Note Patient: Zoltan Olivera Age:72 y.o. Location: [id number] Reason(s) for encounter: Spiritual Care contact per [...] community. Mr. Olivera welcomed prayer with this blocker metal base. Spiritual Assessment Voodoo Identification / Spiritual Practices: This patient is Jew. 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 Coping and support: Mr. Olivera is supported by spouse, Yoli, as well as by a mature сергей life. Spiritual Care interventions: Therapeutic and supportive listening was provided with the aim of allowing patient/family expression of emotions, hopes and worries regarding current medical condition and life stage. Facilitated anabaptist/spiritual practices (prayer, blessing, sacred texts, anabaptist item) with theaim to reinforce patient's spiritual [...] requested. Chaplains can be contacted by paging [phone] ( [place]) or [phone] ([place]). DIRECTOR OF FINANCE * Varsha Rodriguez R.N., C.W.C.N. - 05/13/2023 12:[address] [facility] Wound RN consulted to assess Zoltan Olivera [...] none *Signs of Infection None *Wound Bed Clean;Open;Collyer;Red;Shiny *Exudate Amount Moderate Drainage Description Malodorous Yola-wound Assessment Fragile;Rash *Primary Dressing Textile *Primary Dressing Frequency of Change 2x/day & PRN Primary Dressing Changed Reinforced Primary Dressing Status Clean;Intact Changed by Wound protection specialist;Unit based nurse The patient's gluteal cleft is [...] wounds. Electronically signed by: Elisa Rodriguez R.N., C.W.C.N. 05/13/23 12:29 PM VP DIRECTOR OF FINANCE DIRECTOR OF FINANCE * Delma Ramirez APRN, C.N.P., D.N.P. - [...] Lovenox at discharge. Please initiate inpatient teaching. DIRECTOR OF FINANCE * Manuel Olguin Pharm.D., R.Ph. - 05/13/2023 [...] medications: none Review of Systems Neuro: pain 1-08/25 Scheduled medications: acetaminophen, pregabalin PRN medications: oxycodone [...] pain regimen, VTE ppx x7-10 days per Caprini scoreof 8 [place] 6-[address] [place] [phone] with questions. Manuel Olguin Pharm.D., R.Ph. DIRECTOR OF FINANCE * Nghia Steele - 05/13/2023 8:40 AM CST [facility] Spiritual Care Progress Note Patient: Zoltan Olivera Age:72 y.o. Location: [id number]-P Reason(s) for encounter: Spiritual Care contact per RN request. 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 He indicated he needed his nurse, and requested a return encounter later today. Spiritual Assessment Voodoo Identification / Spiritual Practices: This patient is Jew. Spiritual Care interventions: Introduced the role as [...] allow. Chaplains can be contacted by paging [phone] ([place]) or [phone] ([place]). DIRECTOR OF FINANCE * Odilon Blair, BETHANY, C.N.P., M.S.N. - 05/12/2023 12:43 PM CST [...] & Screen Expiration 05/14/2023 23:59 Testing Location [place] Hemoglobin A1c Collection Time: 05/11/23 3:18 PM [...] Glomerular Filtration Rate (GFR) 45 To 59 ([facility]) #2 Morbid Obesity Body Mass Index 50.0-59.9 Adult ([facility]) #3 Hypertension And Chronic Kidney Disease Stage [...] Lovenox at discharge. Please initiate inpatient teaching. DIRECTOR OF FINANCE * Manuel Olguin Pharm.D., R.Ph. - 05/11/2023 [...] mg total) by mouth daily. glucosamine HCl/chondroitin chung (GLUCOSAMINE-CHONDROITIN ORAL) 05/10/2023 Self 08/26/16 -- Take [...] Take 2 capsules by mouth at bedtime. DIRECTOR OF FINANCE documented in this encounter H&P Notes * Odilon Blair APRN, C.N.P., M.S.N. - 05/12/2023 6:24 AM CST INTERVAL HISTORY AND PHYSICAL PRE-PROCEDURE UPDATE H&P reviewed. The patient was examined and there are no significant changes to the H&P. Odilon Blair APRN, C.N.P., M.S.N. DIRECTOR OF FINANCE Source Note - Bonny Clifton M.B., B., M.Kacie. - 05/09/2023 3:00 PM VP DIRECTOR OF FINANCE SUBJECTIVE CHIEF COMPLAINT / REASON FOR VISIT [...] etc Questions answered. Kiki Salguero, Patrice Zambrano. DIRECTOR OF FINANCE * Odilon Blair APRN C.N.P., M.S.N. - 05/11/2023 4:10 PM CST [...] he had fevers and chills and the [facility] in [place] suspected he had sepsis and treated him [...] fibrillation from a cardiac Center in the [facility]. He was placed on Eliquis and followed up at [facility] where he was told that he does [...] strong enough to beable to leave the jail care facility. He is a previous smoker [...] Glomerular Filtration Rate (GFR) 45 To 59 ([facility]) #2 Morbid Obesity Body Mass Index 45.0-49.9 Adult ([facility]) #3 Hypertension And Chronic Kidney Disease Stage 3 ([facility]) #4 Apnea Sleep Obstructive #5 Depression Major [...] the operating room tomorrow with Dr. Clifton. DIRECTOR OF FINANCE documented in this encounter Consult Notes * Tamir Hall R.N. - 05/12/2023 10:47 AM CSTAssociated Order(s): IP CONSULT TO CARE MANAGEMENT Discharge Planning Assessment SUBJECTIVE Assessment Information Referral Source: Provider/Service Referral Reason: Discharge Planning Primary Language: Faroese Elevator Repairer Apprentice Services Used: No Person(s) present during interview: [...] insurance: MEDICARE A AND B Secondary insurance: [employer] benefits: No Advance Directives Legal Decision Maker: Self Advance Directives: N/A Advance Directives Status: None on file OBJECTIVE Baseline Functional Status Baseline Activities of Daily Living Mobility: Requires aide of device Dressing: Needs assistance Feeding: Independent Bathing: Needs assistance Grooming: Independent Toileting: Independent Behavior: Appropriate, Cooperative Communication: Talks, Understands Faroese Shopping: Needs assistance Medication Management: Needs assistance [...] the transport expected?: 05/16/23 Anticipated Discharge Destination: Jail Facility ASSESSMENT / PLAN Assessment: The crook operator met with Zoltan Olivera to discuss his current hospitalization and home going needs. The patient was unaccompanied. The patient was a reliable historian. The role of crook operator was reviewed. The patient reviewed his prior level of care and support system. The patient receives support from his and children. 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 The patient described his living situation as SNF at this time. Patient has been in the SNF for twoweeks now for OT/PT therapy regarding frequent falls at home. The facility has been providing meals, medications, assist with showering and uses a walker for mobility. If he needs to travel more [id number] feet , he uses the W/C. Zoltan is able to do most of his ADLs on his own. Zoltan also uses a CPAP without oxygen. crook operator discussed the patient's potential needs at dismissal [...] identified the [facility] After reviewing the patient's chart and meeting with the patient, the crook operator deemed the LACE+/readmission questions were not necessary. The patient reports understanding that he will dismiss from the hospital early next week. Pending hospital course and medical readiness, no barriers to dismissal have been identified at this time. Plan: The patient agrees with the following plan. Patient's anticipated discharge disposition is: Jail Facility Reconnected: [facility]. Transportation upon dismissal will be Care Management arranged--please arrange w/c transport . crook operator recommended nothing at this time. crook operator provided information regarding the dismissal process. crook operator placed or requested the following hospital-based consult orders and/or referrals: None. crook operator will continue to assess for homegoing needs with the interdisciplinary team. crook operator encouraged the patient to reach out with any questions/concerns. Patient to return to: Destination - Admitted Since 05/11/2023 Service Provider Selected Services Address Phone Fax Patient Preferred [facility] [address] [facility] [place] [phone] -- Contact: Nursing Patient has a paid bed hold. Facility cannot manage IV antibiotics. Facility cannot manage a wound vac. Facility cannot accept weekend readmissions. COVID screening needed before patient can return: yes, guidelines required: within 24 hrs Facility prefers patient return by 2 pm. Facility oxygen provider is [facility] (phone [phone], fax [phone]) . Was the patient on oxygen at [...] if needs arise. PCP: Eli Rondon APRN, C.NAria, R.N. Pharmacy: N/A Signed by: Tamir Hall R.N. 05/12/2023 DIRECTOR OF FINANCE documented in this encounter Nursing Notes * [...] with the patient. Paperwork faxed by the [facility] to the facility. Problem: PAIN - ADULT [...] S/S of infection Outcome: Adequate for Discharge DIRECTOR OF FINANCE * Nemo Edwards R.N. - 05/14/2023 7:07 [...] LEVEL OR BASELINE 05/14/2023706 by Nemo Edwards RHaja. Outcome: Progressing 05/14/2023632 by Nemo Edwards RHaja. Outcome: Progressing Problem: KNOWLEDGE DEFICIT Goal: Patient/family/caregiver demonstrates understanding of disease process, treatment plan, medications, and discharge instructions 05/14/2023706 by Nemo Edwards R.N. Outcome: Progressing 05/14/2023632 by Nemo Edwards R.N. Outcome: Progressing Problem: INFECTION - ADULT Goal: Absence of infection during hospitalization 05/14/2023706 by Nemo Edwards RAjitN. Outcome: Progressing 05/14/2023632 by Nemo Edwards RAjitN. Outcome: Progressing Problem: SKIN/TISSUE INTEGRITY Goal: Skin/Tissue integrity maintained or improved 05/14/2023706 by Nemo Edwards RAjitN. Outcome: Progressing 05/14/2023632 by Nemo Edwards, R.N. Outcome: Progressing Goal: Oral and Nasal mucous membranes remain intact 05/14/2023706 by Nemo Edwards RAjitN. Outcome: Progressing 05/14/2023632 by Nemo Edwards RAjitN. Outcome: Progressing Problem: SAFETY ADULT Goal: Maintain a safe environment 05/14/2023706 by Nemo Edwards RAjitN. Outcome: Progressing 05/14/2023632 by Nemo Edwards R.N. Outcome: Progressing Problem: DISCHARGE PLANNING Goal: Patient discharge needs identified 05/14/2023706 by Nemo Edwards RHaja. Outcome: Progressing 05/14/2023632 by Nemo Edwards RAjitN. Outcome: Progressing Problem: SAFETY ADULT - RISK FOR FALL AND OR FALL INJURY Goal: Patient remains free from fall/fall injury 05/14/2023706 by Nemo Edwards RAjitN. Outcome: Progressing 05/14/2023632 by Nemo Edwards RHaja. Outcome: Progressing Problem: POTENTIAL OR ACTUAL PRESSURE INJURY-ADULT Goal: Manage sensory Perception deficits to maintain and/or improve skin integrity 05/14/2023706 by Nemo Edwards R.N. Outcome: Progressing 05/14/2023632 by Nemo Edwards RAjitN. Outcome: Progressing Goal: Maintain optimal skin moisture to ensure or improve skin integrity 05/14/2023706 by Nemo Edwards R.N. Outcome: Progressing 05/14/2023632 by Nemo Edwards R.N. Outcome: Progressing Goal: Achieve optimal activity and/or mobility to maintain or improve skin integrity 05/14/2023706 by Nemo Edwards R.N. Outcome: Progressing 05/14/2023632 by Nmeo Edwards RHaja. Outcome: Progressing Goal: Nutrient intake appropriate for improving, restoring or maintaining skin integrity 05/14/2023706 by Nemo Edwards R.N. Outcome: Progressing 05/14/2023632 by Nemo Edwards R.N. Outcome: Progressing Goal: Minimize friction and/or shear to maintain or improve skin integrity 05/14/2023706 by Nemo Edwards R.N. Outcome: Progressing 05/14/2023632 by Nemo Edwards R.N. Outcome: Progressing Problem: POTENTIAL OR ACTUAL PRESSURE INJURY-ADULT Goal: Maintain optimal skin moisture to ensure or improve skin integrity 05/14/2023706 by Nemo Edwards R.N. Outcome: Progressing 05/14/2023632 by Nemo Edwards RHaja. Outcome: Progressing Problem: Compromised Skin Integrity Goal: Skin/Tissue integrity maintained or improved 05/14/2023706 by Nemo Edwards R.N. Outcome: Progressing 05/14/2023632 by Nemo Edwards R.N. Outcome: Progressing Goal: Oral and Nasal mucous membranes remain intact 05/14/2023706 by Nemo Edwards R.N. Outcome: Progressing 05/14/2023 0633 by Nemo Edwadrs R.N. Outcome: Progressing Goal: Incisions, wounds, or drain sites healing without S/S of infection 05/14/2023 0707 by Nemo Edwards R.N. Outcome: Progressing 05/14/2023 0633 by Nemo Edwards R.N. Outcome: Progressing DIRECTOR OF FINANCE * Aj Ceja R.N. - 05/13/2023 9:43 PM CST Shift Goals: Clinical Goals for the Shift: Return of bowel function and tolerate diet Identify possible barriers to meeting goals/advancing plan of care: none End of Shift Summary: Patient passing gas and stool and tolerating diet. New wound care orders initiated to address IAD. Electronically signed by: Aj Ceja R.N. 05/13/23 9:44 PM VP DIRECTOR OF FINANCE Problem: PAIN - ADULT Goal: PT VERBALIZES/DEMONSTRATES [...] integrity is maintained or improved Outcome: Progressing DIRECTOR OF FINANCE * Sydney Damico R.N. - 05/12/2023 10:46 [...] integrity is maintained or improved Outcome: Progressing DIRECTOR OF FINANCE * Leila Rivero R.N. - 05/12/2023 5:16 [...] Goal: Patient discharge needs identified Outcome: Progressing DIRECTOR OF FINANCE documented in this encounter OR Notes * Op Note - Bonny Clifton M.B., BEstela, M.Kacie. - 05/12/2023 11:28 AM VP DIRECTOR OF FINANCE Pre-op Diagnosis Malignant Neoplasm Of Colon Ascending (HCC) Post-op Diagnosis Malignant Neoplasm Of Colon Ascending (HCC) Teaching Supervisor A marketing assistant actively participated and was necessary for [...] colic (if present) Kiki Salguero, Juan Manuel, M.Kacie. DIRECTOR OF FINANCE * Brief Op Note - Tania Turner [...] to skin ERP pathway post-op Kiki Morris, Juan Manuel, B.A.O. DIRECTOR OF FINANCE documented in this encounter Miscellaneous Notes * Documentation Clarification - Delma Ramirez APRN, C.NAria, D.N.P. - 05/16/2023 10:24 AM CST PROVIDER [...] Clinical Indicators/Risk Factors/Treatment: - 05/11 H&P - Sol Blair, RIM TURNING FINISHER: 72 y.o. male admitted with synchronous cecal [...] me if you have questions. Thank you, FRANK Cooper CCS, CCDS Clinical Documentation Administrative Medical Director Query created by: FRANK Cooper CCS, LEVYS 05/20/2023 03:02 PM VP DIRECTOR OF FINANCE </LCI> DIRECTOR OF FINANCE * Hospital Course - Delma Ramirez APRN, C.N.P., Kacie.N.P. - 05/11/2023 4:15 PM CST PRIMARY DIAGNOSIS: [...] or risk of bleeding outweighsbenefits of chemoprophylaxis. DIRECTOR OF FINANCE documented in this encounter Plan of Treatment Not on file documented as of this encounter Procedures Procedure Name Priority Date/Time Associated Diagnosis Comments GLUCOSE POCT, B Routine 05/16/2023 9:35 AM VP DIRECTOR OF FINANCE GLUCOSE POCT, B Routine 05/15/2023 9:10 PM VP DIRECTOR OF FINANCE GLUCOSE POCT, B Routine 05/15/2023 4:41 PM VP DIRECTOR OF FINANCE GLUCOSE POCT, B Routine 05/15/2023 2:04 PM VP DIRECTOR OF FINANCE SARS COV-2 RNA, PCR, VARIES Routine 05/15/2023 9:10 AM VP DIRECTOR OF FINANCE REMOTE OXIMETRY MONITORING CONT. Routine 05/15/2023 8:00 AM VP DIRECTOR OF FINANCE GLUCOSE POCT, B Routine 05/15/2023 7:46 AM VP DIRECTOR OF FINANCE GLUCOSE POCT, B Routine 05/14/2023 8:33 PM VP DIRECTOR OF FINANCE REMOTE OXIMETRY MONITORING CONT. Routine 05/14/2023 8:01 PM VP DIRECTOR OF FINANCE GLUCOSE POCT, B Routine 05/14/2023 4:04 PM VP DIRECTOR OF FINANCE GLUCOSE POCT, B Routine 05/14/2023 1:51 PM VP DIRECTOR OF FINANCE GLUCOSE POCT, B Routine 05/14/2023 12:13 PM VP DIRECTOR OF FINANCE REMOTE OXIMETRY MONITORING CONT. Routine 05/14/2023 8:01 AM VP DIRECTOR OF FINANCE GLUCOSE POCT, B Routine 05/14/2023 7:33 AM VP DIRECTOR OF FINANCE GLUCOSE POCT, B Routine 05/13/2023 10:05 PM VP DIRECTOR OF FINANCE REMOTE OXIMETRY MONITORING CONT. Routine 05/13/2023 8:00 PM VP DIRECTOR OF FINANCE GLUCOSE POCT, B Routine 05/13/2023 3:10 PM VP DIRECTOR OF FINANCE REMOTE OXIMETRY MONITORING CONT. Routine 05/13/2023 8:01 AM VP DIRECTOR OF FINANCE GLUCOSE POCT, B Routine 05/13/2023 7:52 AM VP DIRECTOR OF FINANCE GLUCOSE POCT, B Routine 05/13/2023 3:55 AM VP DIRECTOR OF FINANCE REMOTE OXIMETRY MONITORING CONT. Routine 05/13/2023 12:51 AM VP DIRECTOR OF FINANCE REMOTE OXIMETRY MONITORING CONT. Routine 05/13/2023 12:51 AM VP DIRECTOR OF FINANCE REMOTE OXIMETRY MONITORING CONT. Routine 05/13/2023 12:51 AM VP DIRECTOR OF FINANCE GLUCOSE POCT, B Routine 05/12/2023 8:33 PM VP DIRECTOR OF FINANCE HIV-1/-2 AG AND AB PS, PLASMA STAT 05/12/2023 5:44 PM VP DIRECTOR OF FINANCE HCV RNA PT SOURCE, S STAT 05/12/2023 5:44 PM VP DIRECTOR OF FINANCE HIV-1/HIV-2 AB RAPID PT SOURCE, B STAT 05/12/2023 5:44 PM VP DIRECTOR OF FINANCE HBS ANTIGEN PATIENT SOURCE STAT 05/12/2023 5:44 PM VP DIRECTOR OF FINANCE GLUCOSE POCT, B Routine 05/12/2023 4:32 PM VP DIRECTOR OF FINANCE [facility] Routine 3:47 PM VP DIRECTOR OF FINANCE GLUCOSE POCT, B Routine 05/12/2023 1:47 PM VP DIRECTOR OF FINANCE ADULT OXYGEN THERAPY Routine 05/12/2023 1:29 PM VP DIRECTOR OF FINANCE SURGICAL PATHOLOGY, FROZEN LAB Routine 05/12/2023 12:49 PM VP DIRECTOR OF FINANCE Malignant Neoplasm Of Colon Ascending (HCC) GLUCOSE POCT, B Routine 05/12/2023 11:26 AM VP DIRECTOR OF FINANCE LAPAROSCOPIC COLECTOMY RIGHT WITH ANASTOMOSIS 05/12/2023 9:59 AM VP DIRECTOR OF FINANCE Malignant Neoplasm Of Colon Ascending (HCC) GLUCOSE POCT, B Routine 05/12/2023 9:07 AM VP DIRECTOR OF FINANCE GLUCOSE POCT, B Routine 05/11/2023 9:40 PM VP DIRECTOR OF FINANCE GLUCOSE POCT, B Routine 05/11/2023 4:56 PM VP DIRECTOR OF FINANCE ANTIBODY IDENTIFICATION Routine 05/11/19 3:18 PM VP DIRECTOR OF FINANCE CBC WITH DIFFERENTIAL, B Routine 05/11/2023 3:18 PM VP DIRECTOR OF FINANCE TYPE AND SCREEN Routine 05/11/2023 3:18 PM VP DIRECTOR OF FINANCE HEMOGLOBIN A1C, B Routine 05/11/2023 3:1 8 PM VP DIRECTOR OF FINANCE BASIC METABOLIC PANEL, S/P Routine 05/11/2023 3:18 PM VP DIRECTOR OF FINANCE documented in this encounter Results * (ABNORMAL) Glucose, POCT (05/16/2023 9:35 AM VP DIRECTOR OF FINANCE) Glucose, POCT, B 151(H) 70 - 140 mg/dL 05/16/2023 10:04 AM VP DIRECTOR OF FINANCE PCDE Site Capillary 05/16/2023 10:04 AM VP DIRECTOR OF FINANCE PCDE Last Intake > 4 hours 05/16/2023 10:04 AM VP DIRECTOR OF FINANCE PCDE Blood 05/16/2023 9:35 AM VP DIRECTOR OF FINANCE 05/16/2023 10:05 AM VP DIRECTOR OF FINANCE Unknown Provider LAB POCT ORDERABLES- MANUAL Performing Organization Address City/[facility]/ZIP Co de Phone Number [facility] [address] [place] [address], [facility] PCDE [facility] POC [address] [place] [address] * (ABNORMAL) Glucose, POCT (05/15/2023 9:10 PM VP DIRECTOR OF FINANCE) Glucose, POCT, B 238(H) 70 - 140 mg/dL 05/15/2023 9:15 PM VP DIRECTOR OF FINANCE PCDE Site Capillary 05/15/2023 9:15 PM VP DIRECTOR OF FINANCE PCDE Blood 05/15/2023 9:10 PM VP DIRECTOR OF FINANCE 05/15/2023 9:15 PM VP DIRECTOR OF FINANCE Unknown Provider LAB POCT ORDERABLES- MANUAL Performing Organization Address City/[facility]/ZIP Co de Phone Number [facility] [address] [place] [address], [facility] PCDE [facility] POC [address] [place] [address] * (ABNORMAL) Glucose, POCT (05/15/2023 4:41 PM VP DIRECTOR OF FINANCE) Glucose, POCT, B 185(H) 70 - 140 mg/dL 05/15/2023 4:45 PM VP DIRECTOR OF FINANCE PCDE Site Capillary 05/15/2023 4:45 PM VP DIRECTOR OF FINANCE PCDE Last Intake 3-4 hours 05/15/2023 4:45 PM VP DIRECTOR OF FINANCE PCDE Blood 05/15/2023 4:41 PM VP DIRECTOR OF FINANCE 05/15/2023 4:45 PM VP DIRECTOR OF FINANCE Unknown Provider LAB POCT ORDERABLES- MANUAL Performing Organization Address [facility] Co de Phone Number [facility] [address] [place], [place] [address] PCDE [facility] POC [address] [place] [address] * (ABNORMAL) Glucose, POCT (05/15/2023 2:04 PM VP DIRECTOR OF FINANCE) Glucose, POCT, B 177(H) 70 - 140 mg/dL 05/15/2023 2:08 PM VP DIRECTOR OF FINANCE PCDE Site Capillary 05/15/2023 2:08 PM VP DIRECTOR OF FINANCE PCDE Last Intake 3-4 hours 05/15/2023 2:08 PM VP DIRECTOR OF FINANCE PCDE Blood 05/15/2023 2:04 PM VP DIRECTOR OF FINANCE 05/15/2023 2:08 PM VP DIRECTOR OF FINANCE Unknown Provider LAB POCT ORDERABLES- MANUAL Performing Organization Address [facility] de Phone Number [facility] [address] [place] [address], [facility] PCDE [facility] POC [address] [place] [address] * (ABNORMAL) SARS CoV-2 RNA, PCR Asymptomatic (05/15/2023 9:10 AM VP DIRECTOR OF FINANCE) SARS CoV-2 RNA, PCR, Source Swab, Nasopharynx 05/15/2023 11:55 PM VP DIRECTOR OF FINANCE [facility] SARS CoV-2 RNA, PCR Detected(A) Undetected 05/15/2023 11:55 PM VP DIRECTOR OF FINANCE [facility] Comment: SARS-CoV-2 RNA present. ----ADDITIONAL INFORMATION---- This RT-PCR test has received Emergency Use Authorization (EUA) by the U.S. Food and Drug Administration and is used per faucets assembler's instructions. Performance characteristics were verified by [facility] in a manner consistent with CLIA requirements. Visit the CDC website: https://www.cdc.gov/coronavirus/ for the most recent guidelines on Coronavirus testing. Fact Sheet for Healthcare Providers: https://www.fda.gov/media/610569/download Fact Sheet for Patients: https://www.fda.gov/media/777824/download Swab (Nasopharynx) 05/15/2023 9:10 AM VP DIRECTOR OF FINANCE 05/15/2023 12:03 PM VP DIRECTOR OF FINANCE Bonny Swanson B.Ch., M.D. LAB M ICROBIOLOGY - GENERAL ORDERABLES [facility] [address] [place] [address] [facility] [address] [place] [address] [place] [address] * (ABNORMAL) Glucose, POCT (05/15/2023 7:46 AM VP DIRECTOR OF FINANCE) Glucose, POCT, B 197(H) 70 - 140 mg/dL 05/15/2023 7:49 AM VP DIRECTOR OF FINANCE PCDE Site Capillary 05/15/2023 7:49 AM VP DIRECTOR OF FINANCE PCDE Blood 05/15/2023 7:46 AM VP DIRECTOR OF FINANCE 05/15/2023 7:49 AM VP DIRECTOR OF FINANCE Unknown Provider LAB POCT ORDERABLES- MANUAL Performing Organization Address City/[facility]/ZIP Co de Phone Number [facility] [address] [place] [address], [facility] PCDE [facility] POC [address] [place] [address] * (ABNORMAL) Glucose, POCT (05/14/2023 8:33 PM VP DIRECTOR OF FINANCE) Glucose, POCT, B 220(H) 70 - 140 mg/dL 05/14/2023 8:47 PM VP DIRECTOR OF FINANCE PCDE Site Capillary 05/14/2023 8:47 PM VP DIRECTOR OF FINANCE PCDE Blood 05/14/2023 8:33 PM VP DIRECTOR OF FINANCE 05/14/2023 8:48 PM VP DIRECTOR OF FINANCE Unknown Provider LAB POCT ORDERABLES- MANUAL Performing Organization Address City/[facility]/ZIP Co de Phone Number [facility] [address] [place] [address], [facility] PCDE [facility] POC [address] [place] [address] * (ABNORMAL) Glucose, POCT (05/14/2023 4:04 PM VP DIRECTOR OF FINANCE) Glucose, POCT, B 226(H) 70 - 140 mg/dL 05/14/2023 4:47 PM VP DIRECTOR OF FINANCE PCDE Site Capillary 05/14/2023 4:47 PM VP DIRECTOR OF FINANCE PCDE Blood 05/14/2023 4:04 PM VP DIRECTOR OF FINANCE 05/14/2023 4:47 PM VP DIRECTOR OF FINANCE Unknown Provider LAB POCT ORDERABLES- MANUAL Performing Organization Address [facility] Co de Phone Number [facility] [address] [place] [address], [facility] PCDE [facility] POC [address] [place] [address] * (ABNORMAL) Glucose, POCT (05/14/2023 1:51 PM VP DIRECTOR OF FINANCE) Glucose, POCT, B 184(H) 70 - 140 mg/dL 05/14/2023 1:54 PM VP DIRECTOR OF FINANCE PCDE Site Capillary 05/14/2023 1:54 PM VP DIRECTOR OF FINANCE PCDE Last Intake 3-4 hours 05/14/2023 1:54 PM VP DIRECTOR OF FINANCE PCDE Blood 05/14/2023 1:51 PM VP DIRECTOR OF FINANCE 05/14/2023 1:54 PM VP DIRECTOR OF FINANCE Unknown Provider LAB POCT ORDERABLES- MANUAL Performing Organization Address City/[facility]/ZIP Co de Phone Number [facility] [address] [place] [address], [facility] PCDE [facility] POC [address] [place] [address] * (ABNORMAL) Glucose, POCT (05/14/2023 12:13 PM VP DIRECTOR OF FINANCE) Glucose, POCT, B 189(H) 70 - 140 mg/dL 05/14/2023 12:21 PM VP DIRECTOR OF FINANCE PCDE Site Capillary 05/14/2023 12:21 PM VP DIRECTOR OF FINANCE PCDE Last Intake 3-4 hours 05/14/2023 12:21 PM VP DIRECTOR OF FINANCE PCDE Blood 05/14/2023 12:1 3 PM VP DIRECTOR OF FINANCE 05/14/2023 12:22 PM VP DIRECTOR OF FINANCE Unknown Provider LAB POCT ORDERABLES- MANUAL Performing Organization Address City/[facility]/ZIP Co de Phone Number [facility] [address] [place] [address], [facility] PCDE [facility] POC [address] [place] [address] * (ABNORMAL) Glucose, POCT (05/14/2023 7:33 AM VP DIRECTOR OF FINANCE) Glucose, POCT, B 178(H) 70 - 140 mg/dL 05/14/2023 7:40 AM VP DIRECTOR OF FINANCE PCDE Site Capillary 05/14/2023 7:40 AM VP DIRECTOR OF FINANCE PCDE Last Intake > 4 hours 05/14/2023 7:40 AM VP DIRECTOR OF FINANCE PCDE Blood 05/14/2023 7:33 AM VP DIRECTOR OF FINANCE 05/14/2023 7:40 AM VP DIRECTOR OF FINANCE Unknown Provider LAB POCT ORDERABLES- MANUAL Performing Organization Address [facility] de Phone Number [facility] [address] [place] [address], [facility] PCDE [facility] POC [address] [place] [address] * (ABNORMAL) Glucose, POCT (05/13/2023 10:05 PM VP DIRECTOR OF FINANCE) Glucose, POCT, B 258(H) 70 - 140 mg/dL 05/13/2023 10:22 PM VP DIRECTOR OF FINANCE PCDE Site Capillary 05/13/2023 10:22 PM VP DIRECTOR OF FINANCE PCDE Last Intake > 4 hours 05/13/2023 10:22 PM VP DIRECTOR OF FINANCE PCDE Blood 05/13/2023 10:0 5 PM VP DIRECTOR OF FINANCE 05/13/2023 10:23 PM VP DIRECTOR OF FINANCE Unknown Provider LAB POCT ORDERABLES- MANUAL Performing Organization Address City/[facility]/ZIP Co de Phone Number [facility] [address] [place] [address], [facility] PCDE [facility] POC [address] [place] [address] * (ABNORMAL) Glucose, POCT (05/13/2023 3:10 PM VP DIRECTOR OF FINANCE) Glucose, POCT, B 224(H) 70 - 140 mg/dL 05/13/2023 3:21 PM VP DIRECTOR OF FINANCE PCDE Site Capillary 05/13/2023 3:21 PM VP DIRECTOR OF FINANCE PCDE Blood 05/13/2023 3:10 PM VP DIRECTOR OF FINANCE 05/13/2023 3:21 PM VP DIRECTOR OF FINANCE Unknown Provider LAB POCT ORDERABLES- MANUAL [facility] [address] [place] [address], [facility] PCDE [facility] POC [address] [place] [address] * (ABNORMAL) Glucose, POCT (05/13/2023 7:52 AM VP DIRECTOR OF FINANCE) Glucose, POCT, B 304(H) 70 - 140 mg/dL 05/13/2023 7:54 AM VP DIRECTOR OF FINANCE PCDE Site Capillary 05/13/2023 7:54 AM VP DIRECTOR OF FINANCE PCDE Blood 05/13/2023 7:52 AM VP DIRECTOR OF FINANCE 05/13/2023 7:55 AM VP DIRECTOR OF FINANCE Unknown Provider LAB POCT ORDERABLES- MANUAL [facility] [address] [place] [address], [facility] PCDE [facility] POC [address] [place] [address] * (ABNORMAL) Glucose, POCT (05/13/2023 3:55 AM VP DIRECTOR OF FINANCE) Glucose, POCT, B 258(H) 70 - 140 mg/dL 05/13/2023 4:00 AM VP DIRECTOR OF FINANCE PCDE Site Capillary 05/13/2023 4:00 AM VP DIRECTOR OF FINANCE PCDE Last Intake 3-4 hours 05/13/2023 4:00 AM VP DIRECTOR OF FINANCE PCDE Blood 05/13/2023 3:55 AM VP DIRECTOR OF FINANCE 05/13/2023 4:01 AM VP DIRECTOR OF FINANCE Unknown Provider LAB POCT ORDERABLES- MANUAL Performing Organization Address City/[facility]/ZIP Co de Phone Number [facility] [address] [place] [address], [facility] PCDE [facility] POC [address] [place] [address] * (ABNORMAL) Glucose, POCT (05/12/2023 8:33 PM VP DIRECTOR OF FINANCE) Glucose, POCT, B 361(H) 70 - 140 mg/dL 05/12/2023 8:40 PM VP DIRECTOR OF FINANCE PCDE Site Capillary 05/12/2023 8:40 PM VP DIRECTOR OF FINANCE PCDE Last Intake 1-2 hours 05/12/2023 8:40 PM VP DIRECTOR OF FINANCE PCDE Blood 05/12/2023 8:33 PM VP DIRECTOR OF FINANCE 05/12/2023 8:40 PM VP DIRECTOR OF FINANCE Unknown Provider LAB POCT ORDERABLES- MANUAL Performing Organization Address City/[facility] Co de Phone Number [facility] [address] [place] [address], [facility] PCDE [facility] POC [address] [place] [address] * HIV-1/HIV-2 Ab Rapid Pt Source (05/12/2023 5:44 PM VP DIRECTOR OF FINANCE) [facility] HIV-1/HIV-2 Ab Rapid Pt Source, B Negative Negative 05/12/2023 6:19 PM VP DIRECTOR OF FINANCE METH Blood (Blood, Venous) 05/12/2023 5:44 PM VP DIRECTOR OF FINANCE 05/12/2023 5:49 PM VP DIRECTOR OF FINANCE Bonny Swanson B.Ch., MJhon. LAB M ICROBIOLOGY - BLOOD ORDERABLES Performing Organization Address City/[facility] Co de Phone Number [facility] [address] [place] [address], [facility] METH [facility] [address] [place] [address] * HIV-1/-2 Ag and Ab PS, Plasma (05/12/2023 5:44 PM VP DIRECTOR OF FINANCE) [facility] HIV-1/-2 Ag and Ab PS, P Negative Negative 05/12/2023 8:32 PM VP DIRECTOR OF FINANCE [facility] Comment: Negative result does not rule out HIV infection. If exposure to HIV infection occurred <14 days ago, contact the laboratory to request addition of HIV-1/HIV-2 RNA Detection Patient Source, Plasma (HEP12). Blood (Blood, Venous) 05/12/2023 5:44 PM VP DIRECTOR OF FINANCE 05/12/2023 7:49 PM VP DIRECTOR OF FINANCE Bonny Swanson, Juan Manuel, MMarleny LAB M [facility] - BLOOD ORDERABLES Performing Organization Address [facility] Co de Phone Number [facility] [address] [place], [place] [id number] [place] [address] [place] [address] * HBs Antigen Patient Source (05/12/2023 5:44 PM VP DIRECTOR OF FINANCE) [facility] HBs Antigen Patient Source, S Negative Negative 05/12/2023 9:55 PM VP DIRECTOR OF FINANCE [facility] Blood (Blood, Venous) 05/12/2023 5:44 PM VP DIRECTOR OF FINANCE 05/12/2023 7:49 PM VP DIRECTOR OF FINANCE Bonny Swanson B.Ch., MMarleny LAB M [facility] CENTEREnvia Lá - BLOOD ORDERABLES Performing Organization Address [facility] Co de Phone Number [place] [phone] [place], [place] [phone] [place] [address] [place] [address] * HCV RNA Pt Source, Serum (05/12/2023 5:44 PM VP DIRECTOR OF FINANCE) [facility] HCV RNA Pt Source, S Undetected Undetected IU/mL 05/12/2023 11:11 PM VP DIRECTOR OF FINANCE [facility] Comment: Result in log IU/mL is Undetected. ----ADDITIONAL INFORMATION---- The quantification range of this assay is 15 to 100,000,000 IU/mL (1.18 log to 8.00 log IU/mL). Testing was performed using the sagar HCV test ([employer] Blood (Blood, Venous) 05/12/2023 5:44 PM VP DIRECTOR OF FINANCE 05/12/2023 7:53 PM VP DIRECTOR OF FINANCE Bonny Swanson B.Ch., M.D. LAB M ICROBIOLOGY - BLOOD ORDERABLES Performing Organization Address City/[facility]/ZIP Co de Phone Number [facility] [address] [place] [address] [facility] [address] [place] [address] [place] [address] * (ABNORMAL) Glucose, POCT (05/12/2023 4:32 PM VP DIRECTOR OF FINANCE) Glucose, POCT, B 210(H) 70 - 140 mg/dL 05/12/2023 4:37 PM VP DIRECTOR OF FINANCE PCDE Blood 05/12/2023 4:32 PM VP DIRECTOR OF FINANCE 05/12/2023 4:37 PM VP DIRECTOR OF FINANCE Unknown Provider LAB POCT ORDERABLES- MANUAL Performing Organization Address [facility] Co de Phone Number [facility] [address] [place] [address], [facility] PCDE [facility] POC [address] [place] [address] * [facility] Colorectal Cancer Panel, Next-Generation Sequencing, Tumor (05/12/2023 3:47 PM VP DIRECTOR OF FINANCE) Result Provided diagnosis: colorectal adenocarcinoma Microsatellite Instability (MSI) status: Stable (RODO) The following CLINICALLY RELEVANT VARIANTS were detected: Gene: APC DNA Change: c.4348C>T (Exon 16) Amino Acid Change: p.R1450* ([id number]*) Variant Allele Frequency: 33% Gene: APC DNA Change: c.2319del (Exon 16) Amino Acid Change: p.O004Lsp*4 (Xfz325Phgeh*4) Variant Allele Frequency: 31.4% Gene: KRAS DNA Change: c.38G>A (Exon 2) Amino Acid Change: p.G13D (Geb16Jvu) Variant Allele Frequency: 55.6% The following VARIANT OF UNCERTAIN SIGNIFICANCE was detected: Gene: MSH6 DNA Change: c.2374C>G (Exon 4) Amino Acid Change: p.L792V (Vln508Vlf) Variant Allele Frequency: 16.4% No other reportable sequence variants were detected within the analyzed regions of the tested genes listed in the method description. 06/08/2023 1:38 PM VP DIRECTOR OF FINANCE DTL Additional Information CLINICAL TRIALS Possible clinical trials of benefit for this patient can be found at the following sites: 1) ClinicalTrials.gov: www.clinicaltrials. gov/ct2/search/adva nced 2) [facility]: www.[email or web address]/[email or web address] ch/clinical-trials/ 3) [employer]: www.cancer.gov/clin icaltrials/search REFERENCE TRANSCRIPTS Sequence variant nomenclature is based on the following RefSeq accession numbers (build GRCh37 (hg19)):APC [id number], KRAS [id number] and MSH6 [id number]. 06/08/2023 1:38 PM VP DIRECTOR OF FINANCE DTL Specimen Tissue, Tumor 06/08/2023 1:38 PM VP DIRECTOR OF FINANCE DTL Tissue ID [id number] 06/08/2023 1:38 PM VP DIRECTOR OF FINANCE DTL Method Microscopic examination is performed by [...] and additional information on this test, see [email or web address]. [employer] (Test ID [facility]). 06/08/2023 1:38 PM VP DIRECTOR OF FINANCE DTL Disclaimer This test cannot differentiate between [...] of heterozygosity) and sequencing artifact/misalignme nt [PMID: [id number], PMID: [id number]]. This test cannot reliably determine if a [...] developed and its performance characteristics determined by [facility] in a manner consistent with CLIA requirements. This test has not been cleared or approved by the U.S. Food and Drug Administration. 06/08/2023 1:38 PM VP DIRECTOR OF FINANCE DTL Released By Carole SheppardS., Ph.D. 06/08/2023 1:38 PM VP DIRECTOR OF FINANCE DTL Interpretation MSI: Stable (RODO) NO evidence of microsatellite instability was detected suggesting the presence of normal DNA mismatch repair function within the tumor. Current data suggest that advanced stage solid tumors with intact mismatch repair (RODO) are less likely to be responsive to treatment with immunotherapies such as anti-PD-1 therapies [PMID [id number], PMID [id number]]. The presence of intact mismatch repair (RODO) is considered to be an unfavorable prognostic factor for patients with colorectal cancer [PMID: 65785490]. These results decrease the likelihood but do [...] APC c.4348C>T (p.R1450*) (Exon 16) and c.2319del (p.V392Axn*4) (Exon 16) APC (adenomatous polyposis coli) is a tumor suppressor gene that encodes the protein Apc, which plays critical roles in regulating cell division and adhesion. Apc interacts with beta-catenin and controls signaling in the Wnt pathway, which helps regulate embryonic development and cell differentiation [PMID:69636131]. Inactivation of Apc results in the deregulation of Wnt signaling through beta-catenin [PMID:20009669]. In the absence of functional Apc, beta-catenin accumulates and is translocated to the nucleus, where it promotes the door slinger of genes promoting cellular proliferation [PMID:26864449]. APC mutations have been reported in 48-80% of colon samples [[employer], [employer]]. There are currently no known clinically approved therapies that specifically target APC mutations. 2) KRAS c.38G>A (p.G13D) (Exon 2) KRAS encodes a signaling protein member of the Burke family [PMID:[id number], PMID:89019838, PMID:10606640]. Activating KRAS alterations, mainly through mutations in exons 2, 3, and 4 (most commonly at codons G12, G13 and Q61), result in oncogenic activation of downstream signaling pathways, including the Jesus/MEK/ERK pathway [PMID:82055174, PMID:2256461]. KRAS mutations have been reported in 33-43% of colon samples [[employer], [employer]Portal for Cancer Gen[employer]]. Current data suggests that the efficacy of EGFR-targeted therapies in colorectal cancer is limited to patients with tumors lacking an activating KRAS mutation [PMID:45892588, PMID:16220251]. VARIANT OF UNCERTAIN SIGNIFICANCE One variant of uncertain significance was detected. The variant was not observed at significant frequency in population germline/cancer somatic variant databases nor predicted to be functionally significant based on variant type/in silico algorithm results. Additionally, there was no convincing published evidence of cancer association. Therefore, the clinical significance of the detected variant is unknown. 06/08/2023 1:38 PM VP DIRECTOR OF FINANCE DTL 05/12/2023 3:47 PM VP DIRECTOR OF FINANCE 06/01/2023 1:15 PM VP DIRECTOR OF FINANCE Scooby Jacobs M.D. LAB GENETIC [facility] [address] [place] [address], [facility] DT [address] [facility] [address] [place] [address] * (ABNORMAL) Glucose, POCT (05/12/2023 1:47 PM VP DIRECTOR OF FINANCE) Glucose, POCT, B 216(H) 70 - 140 mg/dL 05/12/2023 2:02 PM VP DIRECTOR OF FINANCE PCDE Site Capillary 05/12/2023 2:02 PM VP DIRECTOR OF FINANCE PCDE Blood 05/12/2023 1:47 PM VP DIRECTOR OF FINANCE 05/12/2023 2:03 PM VP DIRECTOR OF FINANCE Unknown Provider LAB POCT ORDERABLES- MANUAL [facility] [address] [place] [address], [facility] PCDE [facility] POC [address] [place] [address] * Surgical Pathology, Frozen Lab (05/12/2023 12:49 PM VP DIRECTOR OF FINANCE) 05/18/2023 4:43 PM VP DIRECTOR OF FINANCE METH Participated in the Interpretation Candi Cantu M.D.-Pathology Fellow 05/18/2023 4:43 PM VP DIRECTOR OF FINANCE METH Report electronically signed by Maximino Roa, Ph.D. I verify that I have examined all relevant slides/materials for the specimen(s) and rendered or confirmed the diagnosis. 05/18/2023 4:43 PM VP DIRECTOR OF FINANCE METH Frozen Intraoperative Report A. ??Terminal ileum, cecum, and appendix, right hemicolectomy: ??Invasive moderate-poorly differentiated adenocarcinoma, forming a 6.1 cm mass extending to the serosa. ??Resection margins negative for tumor. ??Closest mucosal margin 12.3 cm. ??Preliminarily, 5 tumor deposits and 2 of 9 lymph nodes positive for carcinoma. ??Pending further evaluation of additional lymph nodes on permanent sections.. Signed by Rashid Roa., Ph.D. 05/13/2023 10:17 AM 05/18/2023 4:43 PM VP DIRECTOR OF FINANCE METH Gross Description A. ??Received fresh labeled [...] nodes are identified within the mesenteric fat. ??Bag Sewer tissue is submitted for frozen and permanent sections. ??Grossed by Musa Kessler M.D., Ph.D.-Pathology Resident/Miracle German, PA([facility]). ??Additional sections of adipose tissue are submitted on 05/16/2023 by Georgia Eldridge M.D. -Pathology Resident. 05/18/2023 4:43 PM VP DIRECTOR OF FINANCE METH Block Summary A Appendix, terminal ileum, [...] A48 Adipose tissue- 10 05/18/2023 4:43 PM VP DIRECTOR OF FINANCE METH Addendum Genetic testing for [facility] Colorectal Cancer Panel (MCCRC) will be performed and resulted in the patient's medical record. Signed by Caroline Michaud M.D. 06/02/2023 1:30 PM A portion of the testing process was performed at [facility] site [id number]. 06/02/2023 1:30 PM VP DIRECTOR OF FINANCE METH Comment:REVISED RESULTS Interpretation FINAL DIAGNOSIS A. [...] in 1 hotspot field: Not applicable Tumor Hungry Horse Score: Not applicable Treatment Effect: No known [...] the testing process was performed at [facility] site [id number]. Digital imaging was used in the diagnostic assessment of this case. 06/02/2023 1:30 PM VP DIRECTOR OF FINANCE METH Tissue (Colon) 05/12/2023 12 :49 PM VP DIRECTOR OF FINANCE Bonny Swanson B.Ch., M.D. LAB S URG PATH ORDERABLES Performing Organization Address City/[facility]/ZIP Co de Phone Number [facility] [address] [place] [address], [facility] METH [address] [facility] [address] [place] [address] * Glucose, POCT (05/12/2023 11:26 AM VP DIRECTOR OF FINANCE) Glucose, POCT, B 135 70 - 140 mg/dL 05/12/2023 11:28 AM VP DIRECTOR OF FINANCE PCDE Site ARTLINE 05/12/2023 11:28 AM VP DIRECTOR OF FINANCE PCDE Blood 05/12/2023 11:2 6 AM VP DIRECTOR OF FINANCE 05/12/2023 11:29 AM VP DIRECTOR OF FINANCE Unknown Provider LAB POCT ORDERABLES- MANUAL Performing Organization Address [facility] Co de Phone Number [facility] [address] PCDE [facility] POC 200 [place] [address] * Glucose, POCT (05/12/2023 9:07 AM VP DIRECTOR OF FINANCE) Glucose, POCT, B 132 70 - 140 mg/dL 05/12/2023 9:12 AM VP DIRECTOR OF FINANCE PCDE Site Capillary 05/12/2023 9:12 AM VP DIRECTOR OF FINANCE PCDE Blood 05/12/2023 9:07 AM VP DIRECTOR OF FINANCE 05/12/2023 9:13 AM VP DIRECTOR OF FINANCE Unknown Provider LAB POCT ORDERABLES- MANUAL Performing Organization Address City/[facility]/ZIP Co de Phone Number [facility] [address] PCDE [facility] POC 200 [place] [address] * Glucose, POCT (05/11/2023 9:40 PM VP DIRECTOR OF FINANCE) Glucose, POCT, B 127 70 - 140 mg/dL 05/11/2023 9:46 PM VP DIRECTOR OF FINANCE PCDE Site Capillary 05/11/2023 9:46 PM VP DIRECTOR OF FINANCE PCDE Blood 05/11/2023 9:40 PM VP DIRECTOR OF FINANCE 05/11/2023 9:46 PM VP DIRECTOR OF FINANCE Unknown Provider LAB POCT ORDERABLES- MANUAL [facility] [address] [place] [address], [facility] PCDE [facility] POC [address] [place] [address] * (ABNORMAL) Glucose, POCT (05/11/2023 4:56 PM VP DIRECTOR OF FINANCE) Glucose, POCT, B 141(H) 70 - 140 mg/dL 05/11/2023 4:58 PM VP DIRECTOR OF FINANCE PCDE Site Capillary 05/11/2023 4:58 PM VP DIRECTOR OF FINANCE PCDE Blood 05/11/2023 4:56 PM VP DIRECTOR OF FINANCE 05/11/2023 4:59 PM VP DIRECTOR OF FINANCE Unknown Provider LAB POCT ORDERABLES- MANUAL [facility] [address] [place] [address], [facility] PCDE [facility] POC [address] [place] [address] * Antibody Identification, Erythrocytes (05/11/2023 3:18 PM VP DIRECTOR OF FINANCE) Antibody Identification No antibody detected 05/11/2023 6:14 PM VP DIRECTOR OF FINANCE DTL 05/11/2023 3:18 PM VP DIRECTOR OF FINANCE 05/11/2023 3:24 PM VP DIRECTOR OF FINANCE Narrative [facility] - 05/11/2023 6:14 PM VP DIRECTOR OF FINANCE Specimen Information: Specimen ID: [id number] Specimen Collection Start Date: 05/11/2023 ??3:18 PM Specimen Received Date: 05/11/2023 ??3:24 PM Specimen ID: [id number] Specimen Collection Start Date: 05/11/2023 ??3:18 PM Specimen Received Date: 05/11/2023 ??3:24 PM Odilon Blair APRN, C.N.P., M.S.N. L AB BLOOD BANK TEST ORDERABLES Performing Organization Address [facility] de Phone Number [facility] [address] [place] [address], [facility] [address] [place] [address] * (ABNORMAL) Hemoglobin A1c (05/11/2023 3:18 PM VP DIRECTOR OF FINANCE) Pathologist [facility] Hemoglobin A1c, B 6.5(H) 4.0 - 5.6 % 05/11/2023 5:35 PM VP DIRECTOR OF FINANCE DT Comment: Hemoglobin A1c values greater than or equal to 6.5 percent are diagnostic for diabetes mellitus. ??Diagnosis should be confirmed by repeat testing. ??In diabetic patients, HbA1c goals should be discussed with healthcare provider. Blood (Blood, Venous) 05/11/2023 3:18 PM VP DIRECTOR OF FINANCE 05/11/2023 3:27 PM VP DIRECTOR OF FINANCE Delma Ramirez APRN, C.N.PAjit, D.N.P. LAB BLOOD ADD-ON Performing Organization Address [facility] Co de Phone Number [facility] [address] [place] [address], [facility] [address] [place] [address] * Type and Screen (with Reflex Antibody ID) (05/11/2023 3:18 PM VP DIRECTOR OF FINANCE) Pathologist [facility] ABORh A Pos Not applicable 05/11/2023 4:37 PM VP DIRECTOR OF FINANCE ETRM Antibody Screen Positive Negative 05/11/2023 4:51 PM VP DIRECTOR OF FINANCE ETRM Type & Screen Expiration 05/14/2023 23:59 05/11/2023 4:37 PM VP DIRECTOR OF FINANCE ETRM Testing Location [place] DEFAULT 05/11/2023 3:24 PM VP DIRECTOR OF FINANCE ETRM Blood (Blood, Venous) 05/11/2023 3:18 PM VP DIRECTOR OF FINANCE 05/11/2023 3:24 PM VP DIRECTOR OF FINANCE Odilon Blair APRN C.N.P., M.S.N. L AB BLOOD BANK TEST ORDERABLES [facility] [address] [place] [address], [facility] ETRM [facility] [address] [place] [address] * (ABNORMAL) CBC with Differential, Blood (05/11/2023 3:18 PM VP DIRECTOR OF FINANCE) Hemoglobin 9.0(L) 13.2 - 16.6 g/dL 05/11/2023 3:35 PM VP DIRECTOR OF FINANCE DTL Hematocrit 30.0(L) 38.3 - 48.6 % 05/11/2023 3:35 PM VP DIRECTOR OF FINANCE DTL Erythrocytes 3.93(L) 4.35 - 5.65 x10(12)/L 05/11/2023 3:35 PM VP DIRECTOR OF FINANCE DTL MCV 76.3(L) 78.2 - 97.9 fL 05/11/2023 3:35 PM VP DIRECTOR OF FINANCE DTL RBC Distrib Width 19.7(H) 11.8 - 14.5 % 05/11/2023 3:35 PM VP DIRECTOR OF FINANCE DTL Platelet Count 321(H) 135 - 317 x10(9)/L 05/11/2023 3:35 PM VP DIRECTOR OF FINANCE DTL Leukocytes 9.5 3.4 - 9.6 x10(9)/L 05/11/2023 3:35 PM VP DIRECTOR OF FINANCE DTL Neutrophils 6.39 1.56 - 6.45 x10(9)/L 05/11/2023 3:35 PM VP DIRECTOR OF FINANCE DHPM Lymphocytes 1.98 0.95 - 3.07 x10(9)/L 05/11/2023 3:35 PM VP DIRECTOR OF FINANCE DTL Monocytes 0.75 0.26 - 0.81 x10(9)/L 05/11/2023 3:35 PM VP DIRECTOR OF FINANCE DTL Eosinophils 0.29 0.03 - 0.48 x10(9)/L 05/11/2023 3:35 PM VP DIRECTOR OF FINANCE DTL Basophils 0.05 0.01 - 0.08 x10(9)/L 05/11/2023 3:35 PM VP DIRECTOR OF FINANCE DTL Blood (Blood, Venous) 05/11/2023 3:18 PM VP DIRECTOR OF FINANCE 05/11/2023 3:27 PM VP DIRECTOR OF FINANCE Odilon Blair APRN, C.N.P., M.S.N. L AB BLOOD ADD-ON [facility] [address] [place] [address], [facility] DTL [facility] [address] [place] [address] [facility] [address] [place] [address] * (ABNORMAL) Basic Metabolic Panel (05/11/2023 3:18 PM VP DIRECTOR OF FINANCE) Pathologist [facility] Potassium, S 4.5 3.6 - 5.2 mmol/L 05/11/2023 4:01 PM VP DIRECTOR OF FINANCE DTL Sodium, S 139 135 - 145 mmol/L 05/11/2023 4:01 PM VP DIRECTOR OF FINANCE DTL Chloride, S 100 98 - 107 mmol/L 05/11/2023 4:01 PM VP DIRECTOR OF FINANCE DTL Bicarbonate, S 28 22 - 29 mmol/L 05/11/2023 4:01 PM VP DIRECTOR OF FINANCE DTL Anion Gap 11 7 - 15 05/11/2023 4:01 PM VP DIRECTOR OF FINANCE DTL BUN (Blood Urea Nitrogen), S 31(H) 8 - 24 mg/dL 05/11/2023 4:01 PM VP DIRECTOR OF FINANCE DTL Creatinine 1.37(H) 0.74 - 1.35 mg/dL 05/11/2023 4:01 PM VP DIRECTOR OF FINANCE DTL Estimated GFR (eGFR) 55(L) >=60 mL/min/BSA 05/11/2023 4:01 PM VP DIRECTOR OF FINANCE DTL Comment: Estimated GFR calculated using the 2020 CKD_EPI creatinine equation. Calcium, Total, S 9.1 8.8 - 10.2 mg/dL 05/11/2023 4:01 PM VP DIRECTOR OF FINANCE DTL Glucose, S 192(H) 70 - 140 mg/dL 05/11/2023 4:01 PM VP DIRECTOR OF FINANCE DTL Blood (Blood, Venous) 05/11/2023 3:18 PM VP DIRECTOR OF FINANCE 05/11/2023 3:45 PM VP DIRECTOR OF FINANCE Tiffanie Lott APRNNAria, M.S.N. L AB BLOOD ADD-ON [facility] [address] [place] [address], [facility] [address] [place] [address] documented in this encounter Visit Diagnoses Diagnosis [...] Type 2 Peripheral Neuropathy (HCC) Repeated Falls Malignant Neoplasm Of Colon Ascending (HCC) documented in this encounter Admitting Diagnoses Diagnosis [...] hours all sources Given 05/16/2023 9:16 AM VP DIRECTOR OF FINANCE 1,000 mg Given 05/15/2023 6:00 PM VP DIRECTOR OF FINANCE 1,000 mg Given 05/15/2023 12:04 PM VP DIRECTOR OF FINANCE 1,000 mg acetic acid 0.25 % irrigation solution (sterile) 1 Application 1 Application, topical, 2 times daily, First dose on Tue05/13/23 at 1215, Pannus: see wound care order. Given 05/16/2023 9:19 AM VP DIRECTOR OF FINANCE 1 Application Given 05/15/2023 9:01 AM VP DIRECTOR OF FINANCE 1 Application Given 05/14/2023 8:19 PM VP DIRECTOR OF FINANCE 1 Application allopurinoL tablet 300 mg (ZYLOPRIM) 300 mg, oral, Daily, First dose on Cyndy 05/12/23 at 0900 Given 05/16/2023 9:16 AM VP DIRECTOR OF FINANCE 300 mg Given 05/15/2023 9:00 AM VP DIRECTOR OF FINANCE 300 mg Given 05/14/2023 8:41 AM VP DIRECTOR OF FINANCE 300 mg atorvastatin tablet 20 mg (LIPITOR) 20 mg, oral, Daily at bedtime, First dose on Tue05/11/23 at 2100, atorvastatin 20 mg oral daily was interchanged for pravastatin oral daily Given 05/15/2023 9:06 PM VP DIRECTOR OF FINANCE 20 mg Given 05/14/2023 8:16 PM VP DIRECTOR OF FINANCE 20 mg Given 05/13/2023 10:01 PM VP DIRECTOR OF FINANCE 20 mg BUPivacaine liposome (PF) 20 mL, BUPivacaine 50 mL 70 mL injection As needed, Starting on Cyndy 05/12/23 at 1237, Intra-Op Given 05/12/2023 12:37 PM VP DIRECTOR OF FINANCE 70 mL Abdominal Tissue dilTIAZem CD 24 hr capsule 240 mg (CARDIZEM CD/CARTIA XT) 240 mg, oral, 2 times daily, First dose on Tue05/11/23 at 2100, Swallow whole. Do NOT crush, chew or open capsule. Given 05/16/2023 9:17 AM VP DIRECTOR OF FINANCE 240 mg Given 05/15/2023 9:05 PM VP DIRECTOR OF FINANCE 240 mg Given 05/15/2023 9:00 AM VP DIRECTOR OF FINANCE [address] capsule 30 mg (CYMBALTA) 30 mg, oral, 2 times daily, First dose on Tue05/11/23 at 2100, See tube feeding guidelines for tube feeding administration instructions. Given 05/16/2023 9:1 6 AM VP DIRECTOR OF FINANCE 30 mg Given 05/15/2023 9:05 PM VP DIRECTOR OF FINANCE 30 mg Given 05/15/2023 9:00 AM VP DIRECTOR OF FINANCE 30 mg enoxaparin injection 40 mg (LOVENOX) 40 mg, subcutaneous, 2 times daily, First dose on Tue05/16/23 at 2100 furosemide tablet 20 mg (LASIX) 20 mg, oral, 2 times daily, First dose on Tue05/15/23 at 0900 Given 05/16/2023 9:17 AM VP DIRECTOR OF FINANCE 20 mg Given 05/15/2023 6:00 PM VP DIRECTOR OF FINANCE 20 mg Given 05/15/2023 9:00 AM VP DIRECTOR OF FINANCE 20 mg heparin (porcine) injection 7,500 Units 7,500 Units, subcutaneous, Every 8 hours scheduled, First dose on Tue05/12/23 at 2200, For 12 doses Given 05/16/2023 6:26 AM VP DIRECTOR OF FINANCE 7,500 Units Left Lower Abdomen Given 05/15/2023 9:06 PM VP DIRECTOR OF FINANCE 7,500 Units R ight Lower Abdomen Given 05/15/2023 1:31 PM VP DIRECTOR OF FINANCE 7,500 Units R ight Lower Abdomen HYDROmorphone [...] writing Insulin orders Given 05/16/2023 9:36 AM VP DIRECTOR OF FINANCE 2 Units Left Upper Arm (Back ) Given 05/15/2023 6:00 PM VP DIRECTOR OF FINANCE 4 Units Ri ght Lower Abdomen Given 05/15/2023 2:13 PM VP DIRECTOR OF FINANCE 2 Units Ri ght Lower Abdomen insulin aspart U-100 injection 0-7 Units (NovoLOG FlexPen) 0-7 Units, subcutaneous, Daily at bedtime, First dose (after last modification) on Tue05/12/23 at 2200, Insulin Scale: Modified Bedtime Correction Scale, 220-259: 3 units, 260-299: 4 units, 300-339: 5 units, 340-379: 6 units, 380-399: 7 units, Greater than 399: Call service writing insulin orders Given 05/15/2023 9:10 PM VP DIRECTOR OF FINANCE 3 Units Right Lower Abdomen Given 05/14/2023 8:35 PM VP DIRECTOR OF FINANCE 3 Units Le ft Upper Arm (Back) Given 05/13/2023 10:01 PM VP DIRECTOR OF FINANCE 3 Units R ight Lower Abdomen insulin glargine injection 26 Units 26 Units, subcutaneous, Daily at bedtime, First dose (after last modification) on Tue05/13/23 at 2100 Given 05/15/2023 9:11 PM VP DIRECTOR OF FINANCE 26 Units Right Lower Abdomen Given 05/14/2023 8:35 PM VP DIRECTOR OF FINANCE 26 Units Ri ght Upper Arm (Back) Given 05/13/2023 10:01 PM VP DIRECTOR OF FINANCE 26 Units R ight Lower Abdomen levothyroxine tablet 100 mcg (SYNTHROID, LEVOTHROID) 100 mcg, oral, Daily before breakfast, First dose on Tue05/12/23 at 0700, Take along with 125 mcg for a total daily dose of 225 mcg. Given 05/16/2023 6:24 AM CS T 100 mcg Given 05/15/2023 6:53 AM VP DIRECTOR OF FINANCE 100 mcg Given 05/14/2023 6:27 AM VP DIRECTOR OF FINANCE 100 mcg levothyroxine tablet 125 mcg (SYNTHROID, LEVOTHROID) 125 mcg, oral, Daily before breakfast, First dose on Tue05/12/23 at 0700, Take along with 100 mcg for a total daily dose of 225 mcg. Given 05/16/2023 6:25 AM CS T 125 mcg Given 05/15/2023 6:53 AM VP DIRECTOR OF FINANCE 125 mcg Given 05/14/2023 6:30 AM VP DIRECTOR OF FINANCE 125 mcg naloxone injection 0.1 mg (NARCAN) 0.1 mg, intravenous, Every 5 min PRN, reversal, respiratory depression, For RASS Score -4 or less, respiratory rate of less than 8 breaths/min. Notify provider/service and rapid response team (if available at institution)., Starting on Tue05/11/23 at 1449, For 3 doses nystatin 100,000 unit/gram cream 1 Application (MYCOSTATIN) 1 Application, topical, 2 times daily, First dose on Tue05/13/23 at 1215, Pannus: see wound care order. Given 05/16/2023 9:21 AM VP DIRECTOR OF FINANCE 1 Application Given 05/15/2023 9:01 AM VP DIRECTOR OF FINANCE 1 Application Given 05/14/2023 8:19 PM VP DIRECTOR OF FINANCE 1 Application nystatin 100,000 unit/gram powder 1 Application (NYSTOP) 1 Application, topical, 2 times daily, First dose on Tue05/13/23 at 1215, Pannus: apply to affected area between treatments- see wound care order Given 05/15/2023 11:50 AM VP DIRECTOR OF FINANCE 1 Application Given 05/14/2023 10:31 PM VP DIRECTOR OF FINANCE 1 Application Given 05/14/2023 12:10 PM VP DIRECTOR OF FINANCE 1 Application ondansetron ODT disintegrating tablet 4 [...] Tue05/11/23 at 1449 Given 05/11/2023 4:03 PM VP DIRECTOR OF FINANCE [address] tablet 40 mg (PROTONIX) 40 mg, oral, Daily before breakfast, First dose on Tue05/12/23 at 0700, Swallow whole. Do NOT crush, chew, or split tablet. Given 05/16/2023 6:24 AM VP DIRECTOR OF FINANCE 40 mg Given 05/15/2023 6:52 AM VP DIRECTOR OF FINANCE 40 mg Given 05/14/2023 6:26 AM VP DIRECTOR OF FINANCE 40 mg pregabalin capsule 300 mg (LYRICA) 300 mg, oral, 2 times daily, First dose on Tue05/11/23 at 2100 Given 05/16/2023 9:16 AM VP DIRECTOR OF FINANCE 300 mg Given 05/15/2023 9:05 PM VP DIRECTOR OF FINANCE 300 mg Given 05/15/2023 8:59 AM VP DIRECTOR OF FINANCE 300 mg sodium bicarbonate tablet 1,300 mg 1,300 mg, oral, 3 times daily, First dose on Tue05/11/23 at 2100 Given 05/16/2023 9:16 AM VP DIRECTOR OF FINANCE 1,300 mg Given 05/15/2023 9:06 PM VP DIRECTOR OF FINANCE 1,300 mg Given 05/15/2023 1:31 PM VP DIRECTOR OF FINANCE 1,300 mg sodium chloride 0.9 % injection [...] maintain patency Given 05/15/2023 9: 02 AM VP DIRECTOR OF FINANCE 3 mL Given 05/14/2023 8:19 PM VP DIRECTOR OF FINANCE 3 mL Given 05/14/2023 9:54 AM VP DIRECTOR OF FINANCE 3 mL spironolactone tablet 25 mg (ALDACTONE) 25 mg, oral, Daily, First dose on Tue05/13/23 at 1045 Given 05/16/2023 9:16 AM VP DIRECTOR OF FINANCE 25 mg Given 05/15/2023 9:00 AM VP DIRECTOR OF FINANCE 25 mg Given 05/14/2023 8:41 AM VP DIRECTOR OF FINANCE 25 mg tamsulosin 24 hr capsule 0.8 mg (FLOMAX) 0.8 mg, oral, Daily at bedtime, First dose on Tue05/11/23 at 2100, Swallow whole. Do NOT crush, chew or open capsule. Given 05/15/2023 9:06 PM VP DIRECTOR OF FINANCE 0.8 mg Given 05/14/2023 8:15 PM VP DIRECTOR OF FINANCE 0.8 mg Given 05/13/2023 10:01 PM VP DIRECTOR OF FINANCE 0.8 mg documented in this encounter Active and Recently Administered Medications Times are shown in VP DIRECTOR OF FINANCE. Scheduled Medication Order 05/14/2023 05/15/2023 05/16/2023 acetaminophen [...] Norman R.N.)1800 (Given - Provider: Veronique Norman R.N.)2116 (Not Given - Provider: Ania Huizar R.N. - Reason: Contraindicated) 915 (Given - Provider: Dontae Hauser R.N.) acetic acid 0.25 % irrigation solution (sterile) 1 Application 1 Application, topical, 2 times daily, First dose on Tue05/13/23 at 1215, Pannus: see wound care order. 0954 (Given - Provider: Lorelei Hinds R.N.)2018 (Given - Provider: Lavonne Craig R.N.) 900 (Given - Provider: Veronique Norman R.N.)2106 (Not Given - Provider: Ania Huizar R.N. - Reason: Other) 918 (Given - Provider: Dontae Hauser R.N.) allopurinoL tablet 300 mg (ZYLOPRIM) 300 mg, oral, Daily, First dose on Tue05/12/23 at 0900 0841 (Given - Provider: Lorelei Hinds R.N.) 899 (Given - Provider: Veronique Norman R.N.) 915 (Given - Provider: Dontae Hauser R.N.) atorvastatin tablet 20 mg (LIPITOR) 20 mg, oral, Daily at bedtime, First dose on Tue05/11/23 at 2100, atorvastatin 20 mg oral daily was interchanged for pravastatin oral daily 2015 (Given - Provider: Lavonne Craig R.N.) 2105 (Given - Provider: Ania [...] Ania Huizar R.N.) 0917 (Given - Provider: Dontae Hauser R.N.) DULoxetine DR capsule 30 mg (CYMBALTA) 30 [...] diarrhea or output greater than 1500 mL/day 0841 (Given - Provider: Lorelei Hinds R.N.)2014 (Given - Provider: Lavonne Craig R.N.) nystatin 100,000 unit/gram cream 1 Application (MYCOSTATIN) 1 Application, topical, 2 times daily, First dose on Tue05/13/23 at 1215, Pannus: see wound care order. 0954 (Given - Provider: Lorelei Hinds R.N.)2019 (Given - Provider: Lavonne Craig R.N.) 0901 [...] Veronique Norman R.N.) 0916 (Given - Provider: Conrad JamesN.) tamsulosin 24 hr capsule 0.8 mg (FLOMAX) 0.8 mg, oral, Daily at bedtime, First dose on Tue05/11/23 at 2100, Swallow whole. Do NOT crush, chew or open capsule. 2014 (Given - Provider: Lavonne Craig RAjitNAjit) 2105 (Given - Provider: Ania Huizar RKeny) PRN Medication Order 05/14/2023 05/15/2023 05/16/2023 HYDROmorphone [...] Pending 05/15/2023 05/15/2023 05/15/2023 1 1:56 PM VP DIRECTOR OF FINANCE COVID19 05/15/2023 05/15/2023 06/04/2023 6:10 AM VP DIRECTOR OF FINANCE Assessment Noted Time PHQ-9 Depression Total Score: 7 09/04/19 16 9:47 AM CDT documented as of this encounter Care Teams Advertising Campaign Manager Relationship Specialty Start Date End Date Eli Rondon, BETHANY, C.N.P., R.N. [address] [place] [phone] PCP - General Family Medicine 04/27/23 07/07/23 documented as of this encounter
--- OUTSIDE RECORDS SUMMARY | 2023-08-11 11:13 | XMS_ITS | Encounter Summary ---
Author Name Unknown Organization [facility] Address [address] [place] [id number] Care Team Providers Care Rn Ante Partum Name Role Phone Elsewhere, Pcp Primary Care Provider Unavailabl e Encounter Details Date Type Department Care Team (Late st Contact Info) Description 04/07/2023 CPAP Download Remote Patient Monitoring [facility] [address] [place] [address] [facility], Provider Social History Tobacco Use Types Packs/Day Years Used Date Smoking Tobacco: Former Cigarettes 2 18 0 09/16/1966 - 06/30/1984 Passive Smoke Exposure: Past Smokeless Tobacco: Never Alcohol Use Standard Drinks/Week Comments Not Currently 0 (1 standard drink = 0.6 oz pur e alcohol) rarely, one or two a year [facility] Utilities Answer Date Recorded In the past 12 months has e Scale[employer], gas, oil, or water [employer] threatened to shut off services in your [...] any clubs o r organizations such as adventism groups, unions, fraternal or athletic groups, or [...] and heating? Not hard at all 02/11/2023 [facility] - Occupational Stress [...] your living situation today? I have a [facility] place to live 05/12/2023 Education Answer Date Recorded What is the highest level of school you have completed or the highest degree you have received? Bachelor's degree (e.g., BA, AB, BS) 09/20/2018 Sex and Gender Information Value Date Recorded Sex Assigned at Male 06/14/2018 8:36 PM API DEVELOPER Gender Identity Male 10/11/2022 10:17 PM CDT Sexual Orientation Choose not to disclose 2019 1:31 PM API DEVELOPER documented as of this encounter Plan of Treatment Not on file documented as of this encounter Visit Diagnoses Not on filedocumented in this encounter Additional Health Concerns Infection Onset Date Last Indicated Resolved Time COVID19 Pending 04/18/2023 04/18/2023 04/18/2023 3 :59 PM API DEVELOPER COVID19 Pending 05/15/2023 05/15/2023 05/15/2023 1 1:56 PM API DEVELOPER COVID19 05/15/2023 05/15/2023 06/04/2023 6:10 AM API DEVELOPER Assessment Noted Time PHQ-9 Depression Total Score: 7 09/04/19 16 9:47 AM CDT documented as of this encounter Care Teams Rn Ante Partum Relationship Specialty Start Date End Date Elsewhere, Pcp PCP - General Internal Medicine 07/08/23 documented as of this encounter
--- OUTSIDE RECORDS SUMMARY | 2023-08-11 11:13 | XMS_ITS | Encounter Summary ---
Author Name Unknown Organization [facility] Address [address] [place] [address] Care Team Providers Care Pyrotechnic Assembler Name Role Phone Eli Rondon APRN, C.N.P., R.N. Primary Care Provider Encounter Details Date Type Department Care Team (Late st Contact Info) Description 05/06/2023 Clinical Communication Senior [facility] in [place] [address] [place] [phone] Eli Rondon APRN, C.N.P., R.N. [address] [place] [phone] Social History Tobacco Use Types Packs/Day Years Used Date Smoking Tobacco: Former Cigarettes 2 18 0 09/16/1966 - 06/30/1984 Passive Smoke Exposure: Past Smokeless Tobacco: Never Alcohol Use Standard Drinks/Week Comments Not Currently 0 (1 standard drink = 0.6 oz pur e alcohol) rarely, one or two a year [facility] Utilities Answer Date Recorded In [...] How often do you attend chur or adventist services? More than 4 times per year 12/31/2021 Do you belong to any clubs o r organizations such as rastafarian groups, unions, fraternal or athletic groups, or [...] and heating? Not hard at all 02/11/2023 [facility] Occupat ional [facility] - Occupational Stress [...] your living situation today? I have a [facility] place to live 05/12/2023 Education Answer Date Recorded What is the highest level of school you have completed or the highest degree you have received? Bachelor's degree (e.g., BA, AB, BS) 09/20/2018 Sex and Gender Information Value Date Recorded Sex Assigned at Male 06/14/2018 8:36 PM WASHING MACHINE LOADER Gender Identity Male 10/11/2022 10:17 PM CDT Sexual Orientation Choose not to disclose 2019 1:31 PM WASHING MACHINE LOADER documented as of this encounter Plan of Treatment Not on file documented as of this encounter Visit Diagnoses Not on filedocumented in this encounter Additional Health Concerns Infection Onset Date Last Indicated Resolved Time COVID19 Pending 05/15/2023 05/15/2023 05/15/2023 1 1:56 PM WASHING MACHINE LOADER COVID19 05/15/2023 05/15/2023 06/04/2023 6:10 AM WASHING MACHINE LOADER Assessment Noted Time PHQ-9 Depression Total Score: 7 09/04/19 16 9:47 AM CDT documented as of this encounter Care Teams Pyrotechnic Assembler Relationship Specialty Start Date End Date Eli Rondon APRN, C.N.P., R.N. [address] [place] [phone] PCP - General Family Medicine 04/27/23 07/07/23 documented as of this encounter
--- OUTSIDE RECORDS SUMMARY | 2023-08-11 11:13 | XMS_ITS | Encounter Summary ---
Author Name Unknown Organization [facility] Address [address] [place] [address] Care Team Providers Care Live Ammunition Inspector Name Role Phone Kishor Rondon APRN, C.N.P., R.N. Primary Care Provider Encounter Details Date Type Department Care Team (Late st Contact Info) Description 05/02/2023 3:00 PM COOK STARCH External Outreach Senior Services [place] [phone] Kishor Rondon APRN, C.N.P., R.N. [address] [place] [phone] Anemia Iron Deficiency (Primary Dx); Malignant Neoplasm [...] Prostate; Other Hyperlipidemia; Diarrhea; Cough Acute; Edema Social History Tobacco Use Types Packs/Day Years Used Date Smoking Tobacco: Former Cigarettes 2 18 0 09/16/1966 - 06/30/1984 Passive Smoke Exposure: Past Smokeless Tobacco: Never Tobacco Cessation:Counseling Given: Not Answered Alcohol Use Standard Drinks/Week Comments Not Currently 0 (1 standard drink = 0.6 oz pur e alcohol) rarely, one or two a year [facility] Utilities Answer Date Recorded In the past 12 months has e [facility], gas, oil, or water company threatened to [...] week 12/31/2021 How often do you attend [facility] or protestant services? More than 4 times per year 12/31/2021 Do you belong to any clubs o r organizations such as voodoo groups, unions, fraternal or athletic groups, or [...] and heating? Not hard at all 02/11/2023 [facility] - Occupational Stress Questionnaire Answer [...] money to buy more. Never true 04/22/19 24 Within the past 12 months, t [...] have a [facility] place to live 04/22/2023 Education Answer Date Recorded What is the highest level of school you have completed or the highest degree you have received? Bachelor's degree (e.g., BA, AB, BS) 09/20/2018 Sex and Gender Information Value Date Recorded Sex Assigned at Male 06/14/2018 8:36 PM COOK STARCH Gender Identity Male 10/11/2022 10:17 PM CDT Sexual Orientation Choose not to disclose 2019 1:31 PM COOK STARCH documented as of this encounter Last Filed Vital Signs Vital Sign Reading Time Taken Comments Blood Pressure 141/73 05/02/2023 7:58 AM COOK STARCH Pulse 91 05/02/2023 7:58 AM COOK STARCH Temperature 36.7 ??C (98 ??F) 05/02/2023 7:58 AM COOK STARCH Respiratory Rate 18 05/02/2023 7:58 AM COOK STARCH Oxygen Saturation 100% 05/02/2023 7:58 AM COOK STARCH Inhaled Oxygen Concentration - - Weight 186 kg (410 lb 12.8 oz) 05/02/2023 7:58 A M COOK STARCH Height - - Body Mass Index 49 04/06/2023 9:57 AM COOK STARCH documented in this encounter Progress Notes * Breanna Jhaveri, L.P.N. - 05/02/2023 3:00 PM CST Images from the original note were not included. SNF VISIT for New Admission visit New Admission to the facility. Recent Hospital admission: Yes,This resident was recently hospitalized at: [facility] [place] Date of hospitalization: Admission Date: 03/08/2023 Discharge Date: 04/26/2023 Reason for hospitalization: Malignant Neoplasm Of Cecum Medication changes: Code Status: Full Code Active issues needing follow up: Yes Active wound requiring treatment:Red blanchable area to coccyx and excoriation noted to groin. Resident refusing to allow SNF staff to complete skin assessment. Has also refused to shower when offered by staff. Wounds/L/D/A: None SNF Nurse concerns: 04/30 Resident was sent over to [facility] around 1530 due to complaint of weakness. Resident asked nurse if he could go get a hemoglobin test as he stated that when he feels like this his hemoglobin level is around 6 or 5. Horticulture Teacher called and got the order to send the resident to the ER from [facility]. Resident came back with no new orders. Jeremy called from [facility] and stated that resident's hemoglobin was in a normal range for the patient. Resident was happy with the results. STARCH * Kishor Rondon APRN, C.N.P., R.N. - 05/02/2023 3:00 PM CST CHIEF COMPLAINT / REASON FOR VISIT The resident is being seen at [place], [place] for Post hospitalization Follow up Visit Visit Type: In Person Face-to- Face visit SUBJECTIVE HISTORY OF PRESENT ILLNESS Obtained from Patient, Nursing, Family Member, and SBAR: Recent Hospital admission: Yes,This resident was recently hospitalized at: [facility] Date of hospitalization: Admission Date: 03/08/2023 Discharge Date: 04/26/2023 Reason for hospitalization: Malignant Neoplasm Of Cecum Patient had originally presented to [facility] on 02/20/2023 with generalizedweakness. He could not stand at home. He had chronic back and lower extremity pain with new onset urinary incontinence. MRI showed severe spinal stenosis that was unchanged. Patient was recently diagnosed with colon cancer and due to the recent diagnosis and severe morbid obesity he was not a candidate for elective spinal surgery. He did receive an elective right-sided epidural steroid injection on 02/25/2023, the procedure was unsuccessful on the left side. He was also started on gabapentin and José Miguel-Medina cream. During his hospitalization he did have positive blood cultures which grew out MRSA and he received vancomycin. Patient went to [facility] to work on his mobility and strength. He did see colorectal surgery, PET scan on 02/22 showed marked FDG avid mass involving the ascending colon consistent with known colonic neoplasm. There were at least 3 FDG avid right pericolic lymphnodes. He is currently scheduled for a laparoscopic right colectomy on May 12. Patient continues to work with physical and occupational therapy. He did have a hemoglobin of 6.7 in the hospital and received 1 unit of packed red blood cells and IV iron infusions. His hemoglobin was 8.3 at time of discharge. Patient did have a urinary tract infection on 03/26/2023, developed rebound cyst symptoms and antibiotics were extended through 04/01/2023, he developed urinary symptoms again on 04/12 and completed a 5 day course of Macrobid. On 04/18/2023 he developed rigors and a fever. He was started on IV Zosyn and IV ceftriaxone, bloodcultures grew out Clostridium septicemia which Infectious Disease felt was related to his underlying colon cancer. He received IV ceftriaxone and IV Flagyl through 04/26/2023 and is on oral Flagyl for 6 more days. Active wound requiring treatment:Red blanchable area to coccyx and excoriation noted to groin. Resident refusing to allow SNF staff to complete skin assessment. Has also refused to shower when offered by staff. Wounds/L/D/A: None SNF Nurse concerns: 04/30 Resident was sent over to [facility] around 1530 due to complaint of weakness. Resident asked nurse if he could go get a hemoglobin test as he stated that when he feels like this his hemoglobin level is around 6 or 5. Horticulture Teacher called and got the order to send the resident to the ER from [facility]. Resident came back with no new orders. Jeremy called from [facility] and stated that resident's hemoglobin was in a normal range for the patient. Resident was happy with the results. Patient seen today. He states his hemoglobin yesterday was 8.6. His current concerns is he has a cough. He is coughing things up. He also was having diarrhea up to 8-10 loose stools a day. He is ambulating standby assist and also using a wheelchair. He has a right knee brace and Velcro wraps for edema in his lower extremities. He feels his edema has worsened. He says his pain is between a 2 and a3 in his low back. He denies any fever or chills. He has not having any pain or burning with urination. I personally reviewed the most recent following items: clinical notes, lab results, imaging reports The following medical problems were actively reviewed (including updating overview sections as necessary) and addressed as part of today's visit: Diagnosis Overview 1. Chronic Kidney Disease (CKD), Stage 3a Glomerular Filtration Rate (GFR) 45 To 59 ([facility]) 2022-GFR = 47-50 2. Morbid Obesity Body Mass Index 45.0-49.9 Adult ([facility]) 3. Hypertension And Chronic Kidney Disease Stage 3 ([facility]) HTN back to 1999 Treated 4. Apnea Sleep Obstructive 2015 -polysomnography showed severe obstructive sleep apnea. In 120 minutes of sleep, the apnea-hypopnea index was 93 per hour. Snoring was grade 4/4. He desaturated to 80%. CPAP did not resolve, BiPAP did resolve the obstructive apnea. 5. Depression Major Recurrent (HCC) On duloxetine Meets with a counselor 6. Hypothyroidism Has been on more 200 mcg for decades to control thyroid\ Last TSH normal 7. Radiculopathy Lumbar 8. Diabetes Mellitus Type 2 Peripheral Neuropathy (HCC) Diabetes back to the mid Initially on orals, then oral and insulin Known decreased feeling at the feet A1c 03/10 6.8 (though anemia) 9. Decline Functional Status 10. Anemia Iron Deficiency - Primary 10/08 1 unit RBC, 2 Venofer infusion 200 mg 02/07 2 unit RBC 03/10 1 unit RBC 04/09 1 unit RBC 03/19/2023-200 mg Venofer 03/21/2023-200 mg Venofer 03/25/2023-400 mg Venofer 11. Tachycardia Atrial Paroxysmal (HCC) 01/07 Holter monitor: underlying rhythm of sinus with intermittent junctional beats. The heart rate 61-123 beats per minute with an average of 82 beats per minute. There were 218 VPCs with a VPC burden less than 1%. There were 18,044 APCs with an APC burden of 19% including multiple atrial runs from3 to 150 beats. 02/06 - day mobile cardiac gambling monitor: underlying rhythm of sinus, intermittent sinus arrhythmia, and rare accelerated junctional rhythm. Heart rate 52-113 beats per minute with an average of 70 beats per minute. The VPC burden was 1.65% and the APC burden was 2.27% with the longest run of atrial tachycardia being 40 beats. Currently rate controlled on diltiazem 240 mg twice daily (increased from 120 BID 02/07) 12. Weakness General 13. Stenosis Spinal Lumbar With Neurogenic Claudication 02/20/23 [...] right at L4-L5 and bilaterally at L5-S1. 14. Malignant Neoplasm Of Cecum (HCC) CODE STATUS: FULL CODE REVIEW OF SYSTEMS Complete review of systems was performed, as allowable by patient's cognitive status, and incorporating collateral history if applicable. Relevant positives are noted elsewhere in this note, otherwise negative. OBJECTIVE Vital signs provided by facility: BP 141/73 Pulse 91 Temp 36.7 ??C Resp 18 Wt (!) 186 kg SpO2 100% BMI 49.00 kg/m?? PHYSICAL EXAM Constitutional General: He is [...] Edema present. Left lower leg: Edema present. Skin Coloration: Skin is pale. Neurological Mental Status: He is alert. Mental [...] continued. #1 Malignant Neoplasm Of Cecum (HCC) Has plans with colorectal surgery for a laparoscopic colectomy on 05/12/2023 #2 Depression Major Recurrent (HCC) Duloxetine, has hydroxyzine as needed for anxiety will extend this for 2 weeks and follow-up at that time #3 Tachycardia Atrial Paroxysmal (HCC) Does take diltiazem #4 Morbid Obesity Body Mass Index 45.0-49.9 Adult (HCC) Patient would benefit from weight loss #5 Diabetes Mellitus Type 2 Peripheral Neuropathy (HCC) Currently being managed with insulin glargine 26 units at bedtime and sliding scale insulin with meals, metformin a 1000 mg twice a day. Patient taking pravastatin, he is also taking pregabalin 300 mg twice a day #6 Hypertension And Chronic Kidney Disease Stage 3 (HCC) Furosemide 20 mg daily, losartan, resume 50 mg daily, previously on 100 mg daily, spironolactone 25mg daily #7 Weakness General PT and OT #8 Anemia Iron Deficiency CBC planned for tomorrow #9 Apnea Sleep Obstructive BiPAP while sleeping #10 Chronic Kidney Disease (CKD), Stage 3a Glomerular Filtration Rate (GFR) 45 To 59 (HCC) BMP plan for tomorrow #11 Decline Functional Status Continue with physical therapy and occupational therapy #12 Hypothyroidism Levothyroxine 225 mcg daily #13 Radiculopathy Lumbar #14 Stenosis Spinal Lumbar With Neurogenic Claudication Glucosamine/chondroitin, Dilaudid as needed, duloxetine #15 Stones Uric Acid Allopurinol #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 Increase furosemide to 40 mg daily, BMP tomorrow PATIENT EDUCATION Ready to learn, no apparent [...] patient, family, and/or facility staff. Total time 45 minutes. STARCH documented in this encounter Miscellaneous Notes * Addendum Note - Kishor Rondon APRN, C.N.P., R.N. - 05/02/2023 3:00 PM COOK STARCH Addended by: KISHOR RONDON on: 05/04/2023 05:30 PM Modules accepted: Orders STARCH documented in this encounter Plan of Treatment Not on file documented as of this encounter Visit Diagnoses Diagnosis Anemia Iron Deficiency- Primary Malignant Neoplasm Of Cecum (HCC) Depression Major Recurrent (HCC) Tachycardia Atrial Paroxysmal (HCC) Morbid Obesity Body Mass Index 45.0-49.9 Adult (HCC) Diabetes Mellitus Type 2 Peripheral Neuropathy (HCC) Hypertension And Chronic Kidney Disease Stage 3 (HCC) Weakness General Apnea Sleep Obstructive Chronic Kidney Disease (CKD), Stage 3a Glomerular Filtration Rate (GFR) 45 To 59 (HCC) Decline Functional Status Hypothyroidism Radiculopathy Lumbar Stenosis Spinal Lumbar With Neurogenic Claudication Stones Uric Acid Nodule Prostate Other Hyperlipidemia Diarrhea Cough Acute Edema documented in this encounter Additional Health Concerns Assessment Noted Time PHQ-9 Depression Total Score: 7 09/04/19 16 9:47 AM CDT documented as of this encounter Care Teams Live Ammunition Inspector Relationship Specialty Start Date End Date Kishor Rondon APRN, C.N.P., R.N. [address] [place] [phone] PCP - General Family Medicine 04/27/23 07/07/23 documented as of this encounter
--- OUTSIDE RECORDS SUMMARY | 2023-08-11 11:13 | XMS_ITS | Encounter Summary ---
Author Name Unknown Organization [facility] Address [address] [place] [address] Care Team Providers Care Antique Furniture Reproducer Name Role Phone Elsewhere, Pcp Primary Care Provider Unavailabl e Encounter Details Date Type Department Care Team (Latest Contact Info) Description 05/04/2023 [facility]ake [facility] Social History Tobacco Use Types Packs/Day Years Used Date Smoking Tobacco: Former Cigarettes 2 18 0 09/16/1966 - 06/30/1984 Passive Smoke Exposure: Past Smokeless Tobacco: Never Alcohol Use Standard Drinks/Week Comments Not Currently 0 (1 standard drink = 0.6 oz pur e alcohol) rarely, one or two a year [facility] Utilities Answer Date Recorded In the past 12 months has e [employer], gas, oil, or water [employer] threatened to shut off services in your [...] often do you attend chur ch or jainism services? More than 4 times per year 12/31/2021 Do you belong to any clubs o r organizations such as yarsani groups, unions, fraternal or athletic groups, or [...] and heating? Not hard at all 02/11/2023 [facility] Occupat ional Health - Occupational [...] Sex Assigned at Male 06/14/2018 8:36 PM BEVELING AND EDGING MACHINE OPERATOR Gender Identity Male 10/11/2022 10:17 PM CDT Sexual Orientation Choose not to disclose 2019 1:31 PM BEVELING AND EDGING MACHINE OPERATOR documented as of this encounter Plan of Treatment Not on file documented as of this encounter Visit Diagnoses Not on filedocumented in this encounter Additional Health Concerns Infection Onset Date Last Indicated Resolved Time COVID19 Pending 05/15/2023 05/15/2023 05/15/2023 1 1:56 PM BEVELING AND EDGING MACHINE OPERATOR COVID19 05/15/2023 05/15/2023 06/04/2023 6:10 AM BEVELING AND EDGING MACHINE OPERATOR Assessment Noted Time PHQ-9 Depression Total Score: 7 09/04/19 16 9:47 AM CDT documented as of this encounter Care Teams Antique Furniture Reproducer Relationship Specialty Start Date End Date Elsewhere, Pcp PCP - General Internal Medicine 07/08/23 documented as of this encounter
--- OUTSIDE RECORDS SUMMARY | 2023-08-11 11:14 | XMS_ITS | Clinical Summary ---
Author Name Unknown Organization [facility] Address [place], [place] [address] Care Team Providers Care Blood Bank Credit Clerk Name Role Phone Grzegorz Wiggins MD Primary Care Provider [phone] [facility] Care, [place] Unavailable [phone] Allergies Active Allergy Reactions Criticality Noted Date Comments Atenolol 09/05/2006 intolerance: presyncope Amoxicillin-Pot Clavulanate Diarrhea 05/29/2014 Blood-Group Specific Substance Other - Describe In Comment Field 07/29/2014 Patient has a Non-Specific Antibody. Please draw 2 purple top tubes and 1 red top tube for all Type and Screen and Type and Crossmatch Red Blood Cell product orders. Blood products may be delayed. Clavulanic Acid Diarrhea Low 10/03/2022 Meperidine Nausea Only 09/05/2006 Losartan Hypotension Medium 12/21/2022 Orthostatics Lisinopril 09/05/2006 intolerance: cough Terazosin Shortness Of Breath High 06/11/2015 Trospium Constipation,Other - Describe In Comment Field 04/25/2019 Dry mouth Medications Medication Sig Dispensed Refills Start Date End Date Status ACCU-CHEK SOFTCLIX LANCETSIndications :Type II or unspecified type diabetes mellitus without mention of complication, not stated as uncontrolled as Directed 100 3 7 Active lancets (MICROLET LANCET)Indications :Type II or unspecified type diabetes mellitus without mention of complication, not stated as uncontrolled Dispense meter, test strips, lancets covered by pt ins. 250.02 NIDDM type II, uncontrolled - Test 1 time/day 100 Each 4 5 Active blood-glucose meterIndications:T ype II or unspecified type diabetes mellitus without mention of complication, not stated as uncontrolled 250.02 NIDDM type II, uncontrolled - Test 1 time/day; please refill everything for one year. 1 Device 0 5 Active glucosamine-chondr oitin, 500-400 mg, (COSAMIN DS 500/400) 500-400 mg cap Take 1 Capsule by mouth three times daily. 9 Active sodium bicarbonate 650 mg tablet Take 1,950 mg by mouth three times daily. Take 3 tablets (1950 mg) 3 times daily for kidney stones Active acetaminophen (TYLENOL EXTRA STRGTH) 500 mg tablet Take 1,000 mg by mouth three times daily. Acetaminophen 1000 mg three times daily as needed. 2 Active Walker - 4 wheelsIndications: Spinal stenosis of lumbar region with neurogenic claudication,DDD (degenerative disc disease), cervical For home use. Length of need: 99 Bariatric four wheel walker with a seat. [facility]. [phone] 1 Each 2 Active [employer] CONTOUR stripIndications:D iabetes mellitus without complication (HC) TEST TWICE DAILY DUE TO UNCONTROLLED DIABETES MELLITUS. 200 Each 3 3 Active pantoprazole (PROTONIX) 40 mg delayed-release tabletIndications: Upper GI bleed TAKE 1 TABLET (40 MG) BY MOUTH ONCE DAILY. TAKE 30 MINUTES BEFORE SUPPER. 90 Tablet 2 3 Active pen needle, diabetic (UltiCare Pen Needle) 31 gauge x 5/16Indications:D iabetes mellitus without complication (HC) USE WITH INSULIN PER MD INSTRUCTIONS 200 Each 3 3 Active levothyroxine (SYNTHROID) 125 mcg tabletIndications: Other specified hypothyroidism TAKE ONE TABLET BY MOUTH DAILY ALONG WITH 100MCG FOR TOTAL OF 225MCG 90 Tablet 1 3 Active magnesium oxide (MAG-OX 400) 400 mg tabletIndications: Atrial fibrillation, unspecified type (HC) TAKE 1 TABLET BY MOUTH ONCE DAILY. 90 Tablet 3 3 Active DULoxetine (CYMBALTA) 30 mg Delayed-release capsuleIndications :Lumbar radicular pain Take 1 Capsule (30 mg) by mouth two times daily. 180 Capsule 3 3 Active tamsulosin (FLOMAX) 0.4 mg capsuleIndications :Benign non-nodular prostatic hyperplasia with lower urinary tract symptoms Take 2 Capsules (0.8 mg) by mouth at bedtime. 180 Capsule 3 3 Active hydroCHLOROthiazid e 12.5 mg tabletIndications: HTN (hypertension) Take 0.5 Tablets (6.25 mg) by mouth once daily. Please monitor blood pressure at home. Hold if SBP is less than 140 30 Tablet 3 Active sennosides (SENNA) 8.6 mg tabletIndications: Constipation, unspecified constipation type Take 1-2 Tablets (8.6-17.2 mg) by mouth 2 times daily if needed for Constipation. 30 Tablet 3 Active glipiZIDE (GLUCOTROL) 5 mg tabletIndications: Type 2 diabetes mellitus with stage 3 chronic kidney disease, with long-term current use of insulin, unspecified whether stage 3a or 3b CKD (HC) Take 1 tablet (5 mg) by mouth in the morning and one-half tablet in the evening. 45 Tablet 3 Active insulin glargine, U-100, (Lantus Solostar U-100 Insulin) 100 unit/mL (3 mL) penIndications:Typ e 2 diabetes mellitus without complication, with long-term current use of insulin (HC) Inject 38 units subcutaneous before bedtime. Product desired: LANTUS SOLOSTAR 30 mL 5 3 Active Additional Information Patient taking differently: 32 unitSubcutaneous BEFORE BEDTIME, Product desired: LANTUS SOLOSTAR, Reported on 06/21/2023 semaglutide (Ozempic) 2 mg/3 mL penIndications:Typ e 2 diabetes mellitus without complication, with long-term current use of insulin (HC) 0.25 mg weekly for 4 weeks then 0.5 mg weekly for 4 weeks then 1 mg weekly. 6 mL 6 3 Active nystatin powder (MYCOSTATIN) powderIndications: Yeast dermatitis Apply topically to affected area(s) two times daily. 30 g 3 Active allopurinoL (ZYLOPRIM) 300 mg tabletIndications: Kidney stone TAKE 1 TABLET BY MOUTH EVERY DAY 90 Tablet 3 Active pravastatin (PRAVACHOL) 80 mg tabletIndications: Other hyperlipidemia TAKE 1 TABLET BY MOUTH EVERY DAY 90 Tablet 3 3 Active ferrous sulfate 325 mg delayed release tabletIndications: Other iron deficiency anemia Take 1 Tablet (325 mg) by mouth once daily with a meal. 0 3 Active wheelchairIndicati ons:Spinal stenosis of lumbar region with neurogenic claudication Wheelchair: Bariatric (over 250 lbs) with leg rests: (Swing away Length of need: 99 months 1 Each 3 Active Chair LiftIndications:Sp inal stenosis of lumbar region with neurogenic claudication,Right -sided low back pain with right-sided sciatica, unspecified chronicity,DDD (degenerative disc disease), cervical,Malignant neoplasm of ascending colon (HC) For home use. 1 Each 4 Active levothyroxine (SYNTHROID) 100 mcg tabletIndications: Other specified hypothyroidism Take 1 Tablet (100 mcg) by mouth before breakfast. Take with 125 mcg tablet (total of 225 mcg daily) 90 Tablet 4 4 Active furosemide (LASIX) 40 mg tabletIndications: Peripheral edema Take 1 Tablet (40 mg) by mouth two times daily. 180 Tablet 3 4 Active pregabalin (LYRICA) 100 mg capsuleIndications :Spinal stenosis of lumbar region with neurogenic claudication 300 mg twice daily for one week then 200 mg in the morning and and 300 mg in the evening for one week then 200 mg twice daily and then follow up with ga 180 Capsule 2 4 Active metFORMIN (GLUCOPHAGE XR) 500 mg Extended-Release tabletIndications: Type 2 diabetes mellitus with stage 3 chronic kidney disease, with long-term current use of insulin, unspecified whether stage 3a or 3b CKD (HC) Take 2 Tablets (1,000 mg) by mouth two times daily with meals. 360 Tablet 3 4 Active traMADoL (ULTRAM) 50 mg tabletIndications: Chronic knee pain, unspecified laterality Take 1 Tablet (50 mg) by mouth 2 times daily if needed for Pain. 14 Tablet 4 Active dilTIAZem CD (CARDIZEM CD) 120 mg extended release 24 hr capsuleIndications :Paroxysmal SVT (supraventricular tachycardia) (HC) Take 2 Capsules (240 mg) by mouth two times daily. 360 Capsule 1 4 Active dilTIAZem CD (CARDIZEM CD) 120 mg extended release 24 hr capsuleIndications :Paroxysmal SVT (supraventricular tachycardia) (HC) Take 1 Capsule (120 mg) by mouth two times daily. 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 Dasilva of [place] and Dr. Sousa of [facility] have both given him the ok to go off Eliquis. Paroxysmal SVT (supraventricular tachycardia) DDD (degenerative disc disease), cervical 2020 Type 2 diabetes mellitus wit h stage 3 chronic kidney disease, with long-term current use of insulin 01/18/2018 Overview: Diagnosed with Diabetes in 2005 at age 55. Started Lantus in September 2014. Other hyperlipidemia 01/18/2018 Essential hypertension 01/18/2018 CKD (chronic kidney disease) stage 3, GFR 30-59 ml/min 06/15/2016 Morbid obesity due to excess calories 05/31/2016 Right-sided low back pain with sciatica 06/18/19 16 Spinal stenosis of lumbar re gion with neurogenic claudication 06/18/2015 Overview: Severe central canal narrowing at L3-4, L4-5, [...] Failed Gabapentin in 12/2022. Switched to Lyrica. Benign non-nodular prostatic hyperplasia with lower urinary tract symptoms 06/18/2015 Hypothyroidism 01/26/2015 Renal stone 01/16/2015 BPH (benign prostatic hypertrophy) 04/08/2014 Vitamin D deficiency 12/06/2011 Cardiac dysrhythmia, unspecified 09/05/2006 Nonspecific abnormal unspeci fied cardiovascular function study Family history of ischemic heart disease Encounters Date Type Department Care Team Description 07/23/2023 Refill [facility] [address] [place] [address] Grzegorz Wiggins MD Refill Request (Spironolactone) 07/20/2023 Refill [facility] [address] [place] [address] Grzegorz Wiggins MD in error 07/15/2023 Telephone [facility] [address] [place] [address] Grzegorz Wiggins MD Follow Up 07/13/2023 Telephone [facility] [address] [place] [address] Grzegorz Wiggins MD Questions 07/12/2023 3:10 PM CDT Telemedicine [facility] [address] [place] [address] Grzegorz Wiggins MD [facility] follow up (Patient was at [facility] following his hospital stay - 05/11/2023 admitted to [facility]) 07/08/2023 Travel 06/21/2023 2:45 PM 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 Wiggins) 06/21/2023 Travel from Last 3 Months Immunizations Name Administration Dates Next Due AMB Influenza, IIV3 (Age >=3 years)(Flu Clinic Only) 04/12/2008 COVID-19 vaccine (Pfizer-Bio NTech 30mcg/0.3mL) 12YO+ BIVALENT PF, MDV 03/08/2022 COVID-19 vaccine (Pfizer-Bio NTech 30mcg/0.3mL) 12YO+ LEATHA-SUCROSE PF, MDV 10/05/2021 COVID-19 vaccine (Pfizer-Bio NTech 30mcg/0.3mL) PF, MDV 07/05/2020,06/14/2020 DT (Age < 7 years) 06/03/1997 Influenza A (H1N1), Inactiva desiree (Age >=3 Years) 04/04/2009 Influenza Virus, Unspecified 01/16/2014 Influenza, High-dose Quadriv alent Inactivated 02/18/2023 Influenza, IIV3 (Age >=3 years) 01/09/20 13,12/27/2011,05/14/2011,2009,12/24/2008,02/21/2007,02/16/2006 Influenza, IIV4 03/07/2017,03/15/2016,01/20/2015 Influenza, Inactivated AIIV4 (Age 65+ Years) Preserv Free 03/08/2022,07/29/2021,03/04/2020 Influenza, Inactivated IIV3 (Age 65+ Years) Preserv Free 01/11/2018 Pneumococcal Conj 20-valent (Prevnar 20) 10/05/2021 Pneumococcal Poly,23-Valent (Pneumovax) 05/29/2007 Pneumococcal, Unspecified 04/19/2011 Tdap 07/29/2021,12/24/2008 Family History Medical History Relation Name Comments Arthritis Brother Joint replacmen t hip and knee Scoliosis Brother Genetic Father David Father had a my ocardial infarction at the age of 55. Other Father David Thought to have had accidental overdose of Synthroid. Cancer Mother Rafaela Cancer of [place] Other Mother Rafaela at 87 of u nknown cause Cancer-pancreatic Sister of th is at 60. Relation Name Status Comments Brother Father David (Age 55) Mother Rafaela Alive Sister Social History Tobacco Use Types Packs/Day Years Used Date Smoking Tobacco: Former Cigarettes Q uit: 04/18/1984 Smokeless Tobacco: Never Tobacco Cessation:Counseling Given: Yes Alcohol Use Standard Drinks/Week Comments No 0 (1 standard drink = 0.6 oz pur e alcohol) minmal PHQ-2 Answer Date Recorded PHQ-2 TOTAL SCORE 0 01/28/2023 Social Connections Answer Date Recorded Frequency of Communication with Friends and Fami ly Not on file 10/02/2022 Financial Resource Strain Answer Date R ecorded Difficulty of Paying Living Expenses 3 10/05/2021 Difficulty of Paying Living Expenses Not on file 10/05/2021 Food Insecurity Answer Date Recorded Worried About Running Out of Food in the Last Ye ar 1 10/05/2021 Transportation Needs Answer Date Record ed Lack of Transportation (Medical) 1 10/05/2021 Housing Stability Answer Date Recorded Unable to Pay for Housing in the Last Year 1 10/05/2021 Sex and Gender Information Value Date Recorded Sex Assigned at Not on file Gender Identity Not on file Sexual Orientation Not on file Obstetrics History Last Filed Vital Signs Vital Sign Reading Time Taken Comments Blood Pressure 145/64 12/30/2022 7:28 AM CDT Pulse 82 12/30/2022 7:28 AM CDT Temperature 36.6 ??C (97.9 ??F) 12/30/2022 7:28 AM CD T Respiratory Rate 18 12/30/2022 7:28 AM CDT Oxygen Saturation 96% 12/30/2022 7:28 AM CDT Inhaled Oxygen Concentration - - Weight 180.3 kg (397 lb 6.4 oz) 12/30/2022 2:36 AM CDT Height 193 cm (6' 4) 11/29/2022 2:00 PM CDT Body Mass Index 48.37 11/29/2022 2:00 PM CDT Plan of Treatment Upcoming Encounters Date Type Department Care Team (Late st Contact Info) Description 08/19/2023 8:50 AM CDT Office Visit [facility] [address] [place] [address] Grzegorz Wiggins MD [address] [place] [address] Health Maintenance Due Date Last Done Comments Zoster (shingles) series for age 50+ (1 of 2) 11/06/1971 BMI (ht and wt on same day) for age 18+ 10/16/2022 10/16/2021, 07/09/2021, 09/07/2017, Additional history exists Medicare Wellness for age 65+ 01/12/2023 01/11/2022, 11/13/2018 COVID-19 vaccine series ( season) 2023 02/18/2023, 03/08/2022, 10/05/2021, Additional history exists Influenza for age 65+ 12/18/2023 02/18/2023 , 03/08/2022, 07/29/2021, Additional history exists Depression screening for age 12+ 01/29/2024 01/28/2023, 01/28/2023, 01/11/2022, Additional history exists Colonoscopy through age 75 02/01/2024 01/31/2023 Lipids for age 45-75 10/02/2027 10/01/2022, 04/05/2022, 12/08/2021, Additional history exists Tetanus booster 07/30/2031 07/29/2021, 12/24/2008 AAA screening age 65-74 Completed 04/15/2021, 05/06 Tdap Completed 07/29/2021, 12/24/2008 Pneumococcal series for age 65+ Completed 10/05/2021, 04/19/2011, 05/29/2007 Hepatitis C screening for ag e 18-79 Completed 12/08/2021 Procedures Procedure Name Priority Date/Time Associated Diagnosis Comments SCAN CORRESP-LABORATORY RESULTS 07/13/2023 8:32 AM CDT SCAN-COLONOSCOPY 01/31/2023 12:0 0 AM CDT LIPID PANEL W REFLEX MEASURED LDL Routine 10/01/2022 1:35 PM CDT Type 2 diabetes mellitus with stage 3 chronic kidney disease, with long-term current use of insulin, unspecified whether stage 3a or 3b CKD (HC) ANTI HCV Routine 12/08/2021 9:26 AM CDT Need for hepatitis C screening test CT ABDOMEN PELVIS STONE PROTOCOL WO Routine 04/15/2021 12:00 AM BIOCHEMISTRY PROFESSOR Recurrent UTI from Last 3 Months or Most Recently Relevant to Health Maintenance Results * SCAN CORRESP-LABORATORY RESULTS (07/13/2023 8:32 AM CDT) Narrative 07/13/2023 8:32 AM CDT Ordered by an unspecified provider. Other Clinical Staff OTHER * SCAN-COLONOSCOPY (01/31/2023 12:00 AM CDT) Scanner OTHER * (ABNORMAL) LIPID PANEL W REFLEX MEASURED LDL (10/01/2022 1:35 PM CDT) CHOLESTEROL,TOTAL 98(L) 100 - 199 mg/dL 10/02/2022 12:32 AM CDT [facility] [employer] [facility] [facility] Comment: Cholesterol, Total Reference Ranges Desirable <200 mg/dL Borderline 200-239 mg/dL High >=240 mg/dL TRIGLYCERIDES 97 <150 mg/dL 10/02/2022 12:32 AM CDT [facility] [employer] [facility] [facility] HDL CHOLESTEROL 29(L) >40 mg/dL 12:32 AM CDT [facility] [facility] NON-HDL CHOLESTEROL 69 <145 mg/dl 10/02/2022 12:32 AM CDT [facility] [facility] CHOL/HDL RATIO 3.38 <4.50 10/02/2022 12:32 AM CDT [facility] [facility] LDL CHOLESTEROL 50 <=130 mg/dL 10/02/2022 12:32 AM CDT [facility] [facility] VLDL CHOLESTEROL 19 <=30 mg/dL 10/02/2022 12:32 AM CDT [facility] [facility] PROVIDER ORDERED STATUS RANDOM 10/02/2022 12:32 AM CDT [facility] [facility] Blood BLOOD SPECIMEN / Unknown Venipuncture / Unknown 10/01/2022 1:35 PM CDT 10/01/2022 1:35 PM CDT Grzegorz Wiggins MD CHEMISTRY [facility] [address] [place] [address], * ANTI HCV (12/08/2021 9:26 AM CDT) HEPATITIS C ANTIBODY Non-React nicho Non-React nicho 12/08/2021 7:57 PM CDT [facility] Comment:Antibodies to HCV no t detected; does not exclude the possibility of exposure to HCV. Blood BLOOD SPECIMEN / Unknown Venipuncture / Unknown 12/08/2021 9:26 AM CDT 12/08/2021 9:26 AM CDT Grzegorz Wiggins MD SEND OUTS [facility] [address] [place] [address], [place] * CT ABDOMEN PELVIS STONE PROTOCOL WO (04/15/2021 12:00 AM BIOCHEMISTRY PROFESSOR) Anatomical Region Laterality Modality Abdomen, Pelvis, AORTA, LIVER, SPLEEN Computed Tomography Vernon Kramer MD CT from Last 3 Months or Most Recently Relevant to Health Maintenance Advance Directives * Full Code (Latest Code Status on File) Date Activated Date Inactivated Comments 12/02/2022 2:22 PM 12/30/2022 12:47 PM Question Answer Comments Code Status Discussion: Reviewed Preferences * Full Code Date Activated Date Inactivated Comments 11/29/2022 7:53 AM 12/02/2022 2:01 PM Question Answer Comments Code Status Discussion: Reviewed Preferences * Full Code Date Activated Date Inactivated Comments 11/29/2022 1:25 AM 11/29/2022 7:53 AM Question Answer Comments Code Status Discussion: Unable to Assess Preferences, Provider to review later Care Teams Blood Bank Credit Clerk Relationship Specialty Start Date End Date Grzegorz Wiggins MD [address] [place] [address] PCP - General Family Practice 04/05/[address] [address] 02/01/22
== END 2023-08-11 11:04 | disposition home or self-care (01) ==
LOC: CT 11:05
PROVIDERS: PCP Family Medicine; Visit Provider Internal Medicine Hematology & Oncology
DX: C18.9 Malignant neoplasm of colon, unspecified (principal); R91.8 Other nonspecific abnormal finding of lung field; K80.20 Calculus of gallbladder without cholecystitis without obstruction
CPT/HCPCS: 71250; 74176

== ENCOUNTER 2023-08-16 11:00 | Outpatient (RCR) | payer MEDICARE, BC, SELFPAY ==
[2023-07-11 10:49] LABS: Basophils Absolute Auto 0.03 K/uL (0.00-0.30); Basophils Percent Auto 0.4 % (0.0-3.0); Eosinophils Absolute Auto 0.18 K/uL (0.00-0.50); Eosinophils Percent Auto 2.3 % (0.0-7.0); Hematocrit 28.9 % (37.0-53.0); Hemoglobin* 8.4 gm/dL (13.5-17.5); Immature Granulocytes Abs Auto 0.01 K/uL (0.00-0.30); Immature Granulocytes Pct Auto 0.1 %; Lymphocytes Percent Auto 15.9 % (20-44); Mean Corpuscular HGB Conc 29 gm/dL (32-36); Mean Corpuscular Hemoglobin 21 pg (26-34); Mean Corpuscular Volume 74 fL (80-100); Monocytes Percent Auto 6.4 % (0.0-11.0); Neutrophils Percent Auto 74.9 % (42.0-72.0); Platelet Count* 244 K/uL (140-440); RDW Coefficient of Variation % 19.9 % (11.5-15.5); Red Blood Count 3.92 m/uL (4.30-5.90); White Blood Count* 7.69 K/uL (4.50-11.00)
[2023-07-11 11:08] LABS: Albumin* 3.8 g/dL (3.3-5.0)
[2023-07-11 11:09] LABS: Chloride* 106 mmol/L (96-114); Sodium* 140 mmol/L (135-149)
[2023-07-11 11:11] LABS: Anion Gap 8 mEq/L (7-15); Aspartate Amino Transferase* 18 U/L (12-35); Bilirubin Total* 0.4 mg/dL (0.1-1.5); Carbon Dioxide* 26 mmol/L (20-32); Creatinine* 1.3 mg/dL (0.5-1.5); Est. Creatinine Clearance* 64.91; Estimated Glomerular Filt Rate 59 ml/min; Total Protein* 6.2 g/dL (6.0-8.3)
[2023-07-11 11:12] LABS: Alanine Aminotransferase* 16 U/L (4-50); Alkaline Phosphatase* 72 U/L (40-150); Blood Urea Nitrogen* 38 mg/dL (7-30); Calcium* 9.1 mg/dL (8.4-10.6); Glucose* 159 mg/dL (60-115)
[2023-07-11 11:48] LABS: Slide Review Acceptable Review (Acceptable); Slide Review Reflex Yes
[2023-07-12 17:17] LABS: Carcinoembryonic Antigen 3.3 ng/mL
[2023-08-16 11:55] LABS: Basophils Absolute Auto 0.03 K/uL (0.00-0.30); Basophils Percent Auto 0.4 % (0.0-3.0); Eosinophils Absolute Auto 0.35 K/uL (0.00-0.50); Eosinophils Percent Auto 4.3 % (0.0-7.0); Hematocrit 32.3 % (37.0-53.0); Hemoglobin* 9.5 gm/dL (13.5-17.5); Immature Granulocytes Abs Auto 0.02 K/uL (0.00-0.30); Immature Granulocytes Pct Auto 0.2 %; Lymphocytes Absolute Auto 1.86 K/uL (0.90-2.90); Mean Corpuscular HGB Conc 29 gm/dL (32-36); Mean Corpuscular Hemoglobin 22 pg (26-34); Mean Corpuscular Volume 74 fL (80-100); Monocytes Percent Auto 6.8 % (0.0-11.0); Neutrophils Absolute Auto 5.29 K/uL (1.7-7.0); Neutrophils Percent Auto 65.3 % (42.0-72.0); Platelet Count* 277 K/uL (140-440); RDW Coefficient of Variation % 22.3 % (11.5-15.5); Red Blood Count 4.34 m/uL (4.30-5.90)
[2023-08-16 11:57] LABS: Slide Review Reflex No
[2023-08-16 12:16] LABS: Albumin* 3.7 g/dL (3.3-5.0); Chloride* 104 mmol/L (96-114)
[2023-08-16 12:17] LABS: Potassium* 3.9 mmol/L (3.6-5.1); Sodium* 139 mmol/L (135-149)
[2023-08-16 12:19] LABS: Alkaline Phosphatase* 86 U/L (40-150); Anion Gap 8 mEq/L (7-15); Aspartate Amino Transferase* 17 U/L (12-35); Bilirubin Total* 0.5 mg/dL (0.1-1.5); Blood Urea Nitrogen* 28 mg/dL (7-30); Carbon Dioxide* 27 mmol/L (20-32); Creatinine* 1.2 mg/dL (0.5-1.5); Est. Creatinine Clearance* 70.32; Estimated Glomerular Filt Rate 65 ml/min; Total Protein* 6.3 g/dL (6.0-8.3)
[2023-08-16 12:20] LABS: Alanine Aminotransferase* 18 U/L (4-50); Calcium* 8.8 mg/dL (8.4-10.6); Glucose* 176 mg/dL (60-115)
--- NOTE | 2023-11-17 09:51 | ONC.NURNOTE ---
Orthopaedic General took call from Zoltan stating that he is in a LTCC and wants to cancel his 11/23/[address] Moon. Zoltan will call back to reschedule once he is home and able to come in.
--- NOTE | 2023-12-13 13:24 | ONC.NURNOTE ---
Patient called office to check that his CT scan was received. This was looked at by the oncologist, but was ordered by someone else. Oncologist requests to have patient come in to discuss this scan. Patient notes that he is now in a LTCC and is unable to get to [place]. Director Of Sales Marketing asked about transferring his care elsewhere, and he was looking to transfer care to [place] but wanted a recommendation. LMOM with the two names that Dr. Moon was familiar with: Dr. Vasquez and Dr. Tidwell'. Patient will have the authorization form sent to us so that all his oncology care records can be sent.
== END 2024-01-07 23:59 | disposition home or self-care (01) ==
LOC: CCIC 11:00
PROVIDERS: PCP Family Medicine; Visit Provider Internal Medicine Hematology & Oncology
DX: C18.9 Malignant neoplasm of colon, unspecified (principal); I12.9 Hypertensive chronic kidney disease with stage 1 through stage 4 chronic kidney disease, or unspecified chronic kidney disease; N18.31 Chronic kidney disease, stage 3a; E11.42 Type 2 diabetes mellitus with diabetic polyneuropathy; M48.061 Spinal stenosis, lumbar region without neurogenic claudication
CPT/HCPCS: 36415; 80053; 82378; 85025; 99202; 99205; 99214; G0463

== ENCOUNTER 2023-10-11 10:02 | Outpatient (CLI) | payer MEDICARE, BC, SELFPAY ==
--- OUTSIDE RECORDS SUMMARY | 2023-10-12 03:00 | XMS_ITS | Encounter Summary ---
Author Organization [facility] Address [address] [address] Phone Care Team Providers Care Stand Up Forklift Operator Name Role Phone Grzegorz Wiggins MD Primary Care Provider [phone] Encounter Details Date Type Department Care Team [...] on filedocumented in this encounter Care Teams Stand Up Forklift Operator Relationship Specialty Start Date End Date Grzegorz Wiggins MD [address] [place] [address] PCP - General Family Medicine 06/06/23 documented as of this encounter
--- OUTSIDE RECORDS SUMMARY | 2023-10-12 03:00 | XMS_ITS | Clinical Summary ---
Author Organization [facility] Address [address] [address] Phone Care Team Providers Care Tunneling Machine Operator Name Role Phone Grzegorz Wiggins MD Primary Care Provider [phone] Allergies Active Allergy Reactions Criticality Noted Date [...] day. 2022 2023 Active Lactobacillus Rhamnosus, GG, ([facility]) capsule Take 1 Capsule by mouth two [...] Comments Blood Pressure 146/71 04/30/2023 3:25 PM MIDDLEWARE ARCHITECT Pulse 78 04/30/2023 3:25 PM MIDDLEWARE ARCHITECT Temperature 36.3 ??C (97.4 ??F) 04/30/2023 3:25 PM CS T Respiratory Rate 18 04/30/2023 3:25 PM MIDDLEWARE ARCHITECT Oxygen Saturation 99% 04/30/2023 3:25 PM MIDDLEWARE ARCHITECT Inhaled Oxygen Concentration - - Weight 184.2 kg (406 lb) 04/30/2023 3:23 PM MIDDLEWARE ARCHITECT Height 195.6 cm (6' 5) 04/30/2023 3:23 PM MIDDLEWARE ARCHITECT Body Mass Index 48.14 04/30/2023 3:23 PM MIDDLEWARE ARCHITECT Plan of Treatment Health Maintenance Due Date [...] age to complete this topic Care Teams Tunneling Machine Operator Relationship Specialty Start Date End Date Grzegorz Wiggins MD [address] [place], [place] [id number] PCP - General Family Medicine 06/06/23
--- OUTSIDE RECORDS SUMMARY | 2023-10-12 03:00 | XMS_ITS | Encounter Summary ---
Author Organization [facility] Address [address] [address] Phone Care Team Providers Care Radiation Control Health Physicist Name Role Phone Grzegorz Wiggins MD Primary Care Provider [phone] Reason for Visit * Reason Comments Lab Work Encounter Details Date Type Department Care Team (Late st Contact Info) Description 07/04/2023 11:40 AM CDT ALLIED HEALTH/NURSE VISIT [facility] [address] [place] [phone] Lab, [facility] [address] [place] [phone] Lab Work Social History Tobacco Use Types [...] - 18.0 g/dl 07/04/2023 11:49 AM CDT [facility] Blood BLOOD SPECIMEN / Unknown Venipuncture / Unknown 07/04/2023 11:45 AM CDT 07/04/2023 11:45 AM CDT Eli Rondon CNP EC HEMATOLOGY ORDERA BLES [facility] [address] [place] [address], [facility] [phone] documented in this encounter Visit Diagnoses Diagnosis Iron deficiency anemia, unspecified iron deficiency anemia type- Primary documented in this encounter Care Teams Radiation Control Health Physicist Relationship Specialty Start Date End Date Grzegorz Wiggins MD [address] [place] [id number] PCP - General Family Medicine 06/06/23 documented as of this encounter
--- OUTSIDE RECORDS SUMMARY | 2023-10-12 03:03 | XMS_ITS | Encounter Summary ---
Author Organization [facility] Address [address] [place] [address] Care Team Providers Care Clinical Research Nurse Name Role Phone Elsewhere, Pcp Primary Care Provider Unavailabl e Encounter Details Date Type Department Care Team (Late st Contact Info) Description 08/09/2023 CPAP Download Remote Patient Monitoring [facility] [address] [place] [address] [facility], Provider Social History Tobacco Use Types Packs/Day Years Used Date Smoking Tobacco: Former Cigarettes 2 18 0 09/16/1966 - 06/30/1984 Passive Smoke Exposure: Past Smokeless Tobacco: Never Alcohol Use Standard Drinks/Week Comments Not Currently 0 (1 standard drink = 0.6 oz pur e alcohol) rarely, one or two a year [facility] Utilities Answer Date Recorded In the past 12 months has [facility] [employer], gas, oil, or water [employer] threatened to shut off services in your [...] How often do you attend chur or congregational services? More than 4 times per year [...] Not hard at all 02/11/2023 [facility] - Occupational [...] your living situation today? I have a [facility] place to live 05/12/2023 Education Answer Date Recorded What is the highest level of school you have completed or the highest degree you have received? Bachelor's degree (e.g., BA, AB, BS) 09/20/2018 Sex and Gender Information Value Date Recorded Sex Assigned at Male 06/14/2018 8:36 PM LOG SORTING SUPERVISOR Gender Identity Male 10/11/2022 10:17 PM CDT Sexual Orientation Choose not to disclose 2019 1:31 PM LOG SORTING SUPERVISOR documented as of this encounter Plan of Treatment Not on file documented as of this encounter Visit Diagnoses Not on filedocumented in this encounter Additional Health Concerns Assessment Noted Time PHQ-9 Depression Total Score: 7 09/04/19 16 9:47 AM CDT documented as of this encounter Care Teams Clinical Research Nurse Relationship Specialty Start Date End Date Elsewhere, Pcp PCP - General Internal Medicine 07/08/23 documented as of this encounter
--- OUTSIDE RECORDS SUMMARY | 2023-10-12 03:03 | XMS_ITS | Encounter Summary ---
Author Organization [facility] Address [address] [place] [address] Care Team Providers Care Decker Operator Name Role Phone Elsewhere, Pcp Primary Care Provider Unavailabl e Encounter Details Date Type Department Care Team (Late st Contact Info) Description 09/09/2023 CPAP Download Remote Patient Monitoring [facility] [address] [place] [address] [facility], Provider Social History Tobacco Use Types Packs/Day Years Used Date Smoking Tobacco: Former Cigarettes 2 18 0 09/16/1966 - 06/30/1984 Passive Smoke Exposure: Past Smokeless Tobacco: Never Alcohol Use Standard Drinks/Week Comments Not Currently 0 (1 standard drink = 0.6 oz pur e alcohol) rarely, one or two a year [facility] Utilities Answer Date Recorded In the past 12 months has [facility] [employer], gas, oil, or water [employer] threatened to shut off services in your [...] How often do you attend chur or mu-ism services? More than 4 times per year 12/31/2021 Do you belong to any clubs o r organizations such as methodist groups, unions, fraternal or athletic groups, or [...] heating? Not hard at all 02/11/2023 [facility] Occupat ional Health - [...] Sex Assigned at Male 06/14/2018 8:36 PM ROD PULLER Gender Identity Male 10/11/2022 10:17 PM CDT Sexual Orientation Choose not to disclose 2019 1:31 PM ROD PULLER documented as of this encounter Plan of Treatment Not on file documented as of this encounter Visit Diagnoses Not on filedocumented in this encounter Additional Health Concerns Assessment Noted Time PHQ-9 Depression Total Score: 7 09/04/19 16 9:47 AM CDT documented as of this encounter Care Teams Decker Operator Relationship Specialty Start Date End Date Elsewhere, Pcp PCP - General Internal Medicine 07/08/23 documented as of this encounter
--- OUTSIDE RECORDS SUMMARY | 2023-10-12 03:03 | XMS_ITS | Encounter Summary ---
Author Organization [facility] Address [address] [place] [address] Care Team Providers Care Records Management Manager Name Role Phone Elsewhere, Pcp Primary Care Provider Unavailabl e Encounter Details Date Type Department Care Team (Late st Contact Info) Description 10/10/2023 CPAP Download Remote Patient Monitoring [facility] [address] [place] [address] [facility], Provider Social History Tobacco Use Types Packs/Day Years Used Date Smoking Tobacco: Former Cigarettes 2 18 0 09/16/1966 - 06/30/1984 Passive Smoke Exposure: Past Smokeless Tobacco: Never Alcohol Use Standard Drinks/Week Comments Not Currently 0 (1 standard drink = 0.6 oz pur e alcohol) rarely, one or two a year [facility] Utilities Answer Date Recorded In the past 12 months has [facility], gas, oil, or water [employer] threatened to shut off services in your [...] How often do you attend chur or presybeterian services? More than 4 times [...] and heating? Not hard at all 02/11/2023 [facility] Occupat ional Health - Occupational [...] your living situation today? I have a [facility] place to live 05/12/2023 Education Answer Date Recorded What is the highest level of school you have completed or the highest degree you have received? Bachelor's degree (e.g., BA, AB, BS) 09/20/2018 Sex and Gender Information Value Date Recorded Sex Assigned at Male 06/14/2018 8:36 PM BOILER WASHER Gender Identity Male 10/11/2022 10:17 PM CDT Sexual Orientation Choose not to disclose 2019 1:31 PM BOILER WASHER documented as of this encounter Plan of Treatment Not on file documented as of this encounter Visit Diagnoses Not on filedocumented in this encounter Additional Health Concerns Assessment Noted Time PHQ-9 Depression Total Score: 7 09/04/19 16 9:47 AM CDT documented as of this encounter Care Teams Records Management Manager Relationship Specialty Start Date End Date Elsewhere, Pcp PCP - General Internal Medicine 07/08/23 documented as of this encounter
--- OUTSIDE RECORDS SUMMARY | 2023-10-12 03:03 | XMS_ITS | Continuity of Care Document ---
Author Organization [facility] Address [address] [place] [address] Care Team Providers Care Air Conditioning Technician Name Role Phone Elsewhere, Pcp Primary Care Provider Unavailabl e Source Comments Patient records contain information from all sites at [facility]. For routine questions regarding patient records, call [phone] during business hours, M-F 8:00 AM - 5:00 PM Central Time. Record requests for emergency care only can be directed to [phone] at any time.[facility] Encounters Date Type Department Care Team Description 4 CPAP Download Remote Patient Monitoring [facility] [address] [place] [address] [facility], Provider 4 CPAP Download Remote Patient Monitoring [facility] [address] [place] [address] [facility], Provider 4 CPAP Download Remote Patient Monitoring [facility] [address] [place] [address] [facility], Provider 4 1:06 PM CDT - 4 11:59 PM CDT Hospital Encounter Department of Radiology, [facility], in [place], [place] [address] [place] [phone] Mario Alberto Navarro P.A.-C., M.S. Wilner Casas M.D. 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 Colectomy Partial Status Post [...] 4 Clinical Communication Department of Oncology in [place], [place] [address] [place] [address] Zan Rodriguez P.A.-C., M.S. 4 1:00 PM CDT External Outreach [facility] in [place] [address] [place] [address] John Lerner M.D. Colectomy Partial Status Post [...] 4 Clinical Communication Department of Oncology in [place], [place] [address] [place] [phone] Brenda Delgadillo M.D. Referral 4 Orders Only [facility] in [place] [address] [place] [address] Eli Rondon APRN, C.N.P., R.N. 4 3:00 PM LIQUID CHLORINE OPERATOR Telemedicine Department of Oncology in [place], [place] [address] [place] [address] Brenda Delgadillo M.D. Malignant Neoplasm Of Colon Ascending (HCC) (Primary Dx); Malignant Neoplasm Of Sigmoid Colon (HCC); Nodules Pulmonary Multiple; Stenosis Spinal Lumbar With Neurogenic Claudication; Diabetes Mellitus Type 2 Peripheral Neuropathy (HCC); Hypertensive Chronic Kidney Disease (CKD) Stage 3a Glomerular Filtration Rate (GFR) 45 To 59 (HCC) 4 9:15 AM LIQUID CHLORINE OPERATOR Clinical Communication Virtual Review in [place], [place] [address] [place] [address] 4 9:30 AM LIQUID CHLORINE OPERATOR External Outreach [facility] in [place] [address] [place] [phone] Eli Rondon APRN, C.N.P., R.N. Anemia Iron Deficiency (Primary Dx); Malignant Neoplasm Of Colon Ascending (HCC); Hypertensive Chronic Kidney Disease (CKD) Stage 3a Glomerular Filtration Rate (GFR) 45 To 59 (HCC); Diabetes Mellitus Type 2 Peripheral Neuropathy (HCC); Stenosis Spinal Lumbar With Neurogenic Claudication; Weakness General 4 Documentation Department of Medical Genetics in [place], [place] [address] [place] [phone] Kirsty Mclaughlin Genetic Testing Results 4 CPAP Download [facility] [address] [place] [address] [facility], Provider 4 Clinical Communication Senior Services in [place] [address] [place] [address] John Lerner M.D. 4 Clinical Communication Department of Oncology in [place], [place] [address] [place] [phone] Brenda Delgadillo M.D. Appt Video 4 2:00 PM LIQUID CHLORINE OPERATOR Telemedicine Department of Orthopedic Surgery in [place], [place] [address] [place] [address] Mario Alberto Navarro, P.A.-C., M.S. 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 4 1:00 PM LIQUID CHLORINE OPERATOR External Outreach Senior Services in [place] [address] [place] [address] John Lerner M.D. Colectomy Partial Status Post [...] Division of Colon and Rectal Surgery in [address] [address] Bonny Clifton M.B., BEstela, MJhon. Results 4 10:30 AM LIQUID CHLORINE OPERATOR External Outreach [facility] in [place] [address] [place] [address] Eli Rondon, BETHANY, C.N.P., R.N. Malignant Neoplasm [...] Division of Colon and Rectal Surgery in [place], [place] [address] [place] [address] Bonny Clifton M.B., Lyle Zambrano Cancer stage 4 2:08 PM LIQUID CHLORINE OPERATOR - 4 10:24 AM LIQUID CHLORINE OPERATOR Hospital Encounter [facility], [facility], [facility], Sixth Floor [address] [place] [address] Bonny Clifton M.B., Lyle Zambrano Repeated Falls (Primary Dx); Malignant Neoplasm Of Colon Ascending (HCC); Morbid Severe Obesity Due To Excess Calories (HCC); Stenosis Spinal Lumbar With Neurogenic Claudication; Weakness General; Debility; Malignant Neoplasm Of Colon (HCC) Discharge Disposition: [facility] Facility 4 12:34 PM LIQUID CHLORINE OPERATOR - 4 4:51 PM LIQUID CHLORINE OPERATOR Surgery [facility]ST [facility] MAIN OR [address] [place] [address] Bonny Clifton M.B., Lyle Zambrano LAPAROSCOPIC COLECTOMY RIGHT, ANASTOMOSIS. 4 10:19 AM LIQUID CHLORINE OPERATOR Anesthesia Event RST [facility] OR [address] [place] [address] Shin Woods M.D. Wemple, Keith M, R.N., CCRN 4 3:00 PM LIQUID CHLORINE OPERATOR Telemedicine Division of Colon and Rectal Surgery in [place], [place] [address] [place] [address] Bonny Clifton M.B., Lyle Zambrano Malignant Neoplasm Of Colon Ascending (HCC) (Primary Dx); Diabetes Mellitus Type 2 Peripheral Neuropathy (HCC); Apnea Sleep Obstructive; Chronic Kidney Disease (CKD), Stage 3a Glomerular Filtration Rate (GFR) 45 To 59 (HCC); Hypothyroidism; Depression Major Recurrent (HCC); Decline Functional Status; Morbid Obesity Body Mass Index 45.0-49.9 Adult (HCC) 4 CPAP Download Remote Patient Monitoring [facility] [address] [place] [address] [facility], Provider 4 Clinical Communication Senior Services in [place] [address] [place] [address] Eli Rondon APRN, C.N.P., R.N. 4 Intake [facility] 4 3:00 PM LIQUID CHLORINE OPERATOR External Outreach [facility] Services in [place] [address] [place] [address] Eli Rondon APRN, C.N.P., R.N. Anemia Iron [...] 4 Clinical Communication Department of Family Medicine, [facility], in [address] [place] [address] Rasheed Pastor APRN, C.N.P. 4 Abstract [place], [place] [address] [place] [address] Provider, Historical 3 1:20 PM LIQUID CHLORINE OPERATOR - 4 10:50 AM LIQUID CHLORINE OPERATOR Hospital Encounter [facility], Second Floor [address] [place] [address] Green, Florencio, D.O. Steiner, Carter, M.D. Schimming, Christopher, M.D. Jo, Leila M, M.D. Langbehn, Breanna M, D.O. Agunwamba, Akochi O, M.D. Weakness General (Primary Dx); Debility; Pain Low Back Chronic; Decline Functional Status; Pain Back Lumbar Discharge Disposition: [facility] Facility 4 Clinical Communication Department of Orthopedic Surgery in [place], [place] [address] [place] [address] Mario Alberto Navarro P.A.-C., M.S. Pre-visit Testing Orders 3 Clinical Communication [facility] in [place], [place] [address] [place] [address] Evgeny Ching M.D. 3 CPAP Download Remote Patient Monitoring [place] [address] [address] [place] [address] [facility], Provider 3 11:00 AM LIQUID CHLORINE OPERATOR Education Division of General Internal Medicine in [place], [place] [address] [place] [address] Sita Headley R.N. 3 10:00 AM LIQUID CHLORINE OPERATOR Comprehensive Visit Division of General Internal Medicine in [address] [address] Bonny Clifton M.B., B., M.Grzegorz Barahona M.D. [...] Hypothyroidism; Chronic Idiopathic Constipation 3 1:30 PM LIQUID CHLORINE OPERATOR Clinical Communication Virtual Review in [place], [place] 200 [place] [phone] Pre-visit Intake 3 Orders Only Division of Colon and Rectal Surgery in [place], [place] [address] [place] [phone] Sera Cabrera R.N. Malignant Neoplasm Of Colon Ascending (HCC) (Primary Dx) 3 Episode Changes Division of Gastroenterology in [place], [place] [address] [place] [address] 3 Clinical Communication Division of Colon and Rectal Surgery in [place], [place] [address] [place] [address] Bonny Clifton M.B., Lyle Zambrano Schedule surgery 3 Documentation Division of Gastroenterology in [place], [place] [address] [place] [address] Dave Mckeon M.D. 3 Clinical Communication Division of Colon and Rectal Surgery in [place], [place] [address] [place] [phone] Sophie Zaragoza, RKeny 3 9:00 AM LIQUID CHLORINE OPERATOR Virtual Visit Division of Colon and Rectal Surgery in [place], [place] [address] [place] [address] Parag Molina M.D., M.S. Morbid Obesity (HCC) (Primary Dx); Malignant Neoplasm Of Colon Ascending (HCC); Apnea Sleep Obstructive; Chronic Kidney Disease (CKD), Stage 3a Glomerular Filtration Rate (GFR) 45 To 59 (HCC); Hypertension And Chronic Kidney Disease Stage 3 (HCC); Diabetes Mellitus Type 2 (HCC) 3 11:50 AM LIQUID CHLORINE OPERATOR Ancillary Procedure Department of Nursing 3 2:50 PM LIQUID CHLORINE OPERATOR Ancillary Procedure Department of Emergency Medicine 3 1:38 AM CDT - 3 1:18 PM LIQUID CHLORINE OPERATOR Hospital Encounter [facility], [facility], Second Floor [address] [place] [address] Peter Alva M.D., M.S. Montserrat Gilbert M.D. Peter March M.D. Spinal Stenosis Lumbar Region Without Neurogenic Claudication (Primary Dx); Weakness General; Abnormal Posture [R29.3 (ICD-10-CM)]; Decline Functional Status [R53.81 (ICD-10-CM)]; Radiculopathy Lumbar; Debility; Pain Low Back Chronic Discharge Disposition: [facility] Facility 3 Clinical Communication Department of Hospital Internal Medicine in [place], [place] [address] [place] [address] Kandace Weaver APRN, C.N.P., M.S.N. 3 Clinical Communication Division of Colon and Rectal Surgery in [place], [place] [address] [place] [address] Parag Molina M.D., M.S. 3 12:00 PM LIQUID CHLORINE OPERATOR Virtual Visit Division of Gastroenterology in [place], [place] [address] [place] [address] Dave Mckeon M.D. Malignant Neoplasm Of Colon Ascending (HCC) (Primary Dx) 3 Clinical Communication Department of Medical Genetics in [place], [place] [address] [place] [address] Eli Herron M.S., [facility] [employer]: NK 3 3:42 PM LIQUID CHLORINE OPERATOR - 3 11:59 PM LIQUID CHLORINE OPERATOR Hospital Encounter Department of Laboratory Medicine and Pathology, [facility], in [place], [place] [address] [place] [address] Ean Huizar M.D. Malignant Neoplasm Of Colon Ascending (HCC) Discharge Disposition: Home or Self Care 3 11:10 AM LIQUID CHLORINE OPERATOR Ancillary Procedure Department of Family Medicine 3 Orders Only Department of Orthopedic Surgery in [place], [place] [address] [place] [address] Pérez Ospina M.D. 3 Clinical Communication Division of Gastroenterology in [place], [place] [address] [place] [address] Dave Mckeon M.D. 3 7:40 AM LIQUID CHLORINE OPERATOR Ancillary Procedure Department of Internal Medicine, [place] 3 9:00 AM CDT Immunization Section of Infectious Diseases in [place], [place] [address] [place] [phone] 3 8:30 AM CDT Comprehensive Visit Department of Medical Genetics in [place], [place] [address] [place] [address] Dave Mckeon M.D. Eli Herron M.S., CARLIE Malignant Neoplasm Of Colon Ascending (HCC) (Primary Dx) 3 8:00 AM CDT Comprehensive Visit Department of Medical Genetics in [place], [place] [address] [place] [address] Dave Mckeon M.D. Keiko Walker Malignant Neoplasm Of Colon Ascending (HCC) 3 7:05 AM CDT - 3 11:59 PM CDT Hospital Encounter Department of Laboratory Medicine and Pathology, [facility] in [place], [place] [address] [place] [address] Dave Mckeon M.D. Malignant Neoplasm Of Colon Ascending (HCC); Diabetes Mellitus Type 2 (HCC) Discharge Disposition: Home or Self Care 3 1:40 PM CDT Comprehensive Visit Division of Gastroenterology in [address] [address] Peter Greenberg M.D. Malignant Neoplasm Of Colon Ascending (HCC) (Primary Dx); Diabetes Mellitus Type 2 (HCC) 3 8:15 AM CDT Clinical Communication Virtual Review in [place], [place] 200 [place] [address] Pre-visit Intake 3 9:15 AM CDT Lab RST RO [facility] [address] [place] [address] Dave Mckeon M.D. Malignant Neoplasm Of Colon Ascending (HCC) 3 4:05 PM CDT Ancillary Procedure Department of Radiology in [address] [address] Dave Mckeon M.D. Malignant Neoplasm Of Colon Ascending (HCC) 3 4:00 PM CDT Ancillary Procedure Department of Radiology in [place], [place] [address] [place] [address] Dave Mckeon M.D. Malignant Neoplasm Of Colon Ascending (HCC) 3 Clinical Communication Division of Gastroenterology in [place], [place] [address] [place] [address] Dave Mckeon M.D. Neoplasia; RN Summary 3 Clinical Communication Division of Colon and Rectal Surgery in [place], [place] [address] [place] [phone] Prescheduling, Provider Previsit Review 3 Clinical Communication Department of Neurologic Surgery in [place], [place] [address] [place] [address] Nestor Melgoza M.D. 3 Documentation Department of Neurologic Surgery in [address] [address] Nestor Melgoza M.D. 3 12:44 AM CDT - 3 3:59 AM CDT Emergency [facility] Emergency Department [address] [place] [phone] Peter Alva M.D., M.S. Pain Back (Primary Dx) Discharge Disposition: Home or Self Care 3 12:20 PM CDT - 3 12:18 PM CDT Hospital Encounter [facility], [facility], Second Floor [address] [place] [phone] William Briggs M.D. Johnston Flanders, Megan S, M.D. Decline Functional Status [R53.81 (ICD-10-CM)] (Primary Dx); Debility [R53.81 (ICD-10-CM)]; Debility; Radiculopathy Lumbar; Pain Low Back Chronic; Morbid Obesity (HCC); Spinal Stenosis Lumbar Region Without Neurogenic Claudication; Diabetes Mellitus Type 2 Peripheral Neuropathy (HCC); Diabetes Mellitus Type 2 (HCC); Hypertension And Chronic Kidney Disease Stage 3 (HCC) Discharge Disposition: Home-Health Care [facility] 3 Clinical Communication Department of Hospital Internal Medicine in [address] [address] Kandace Weaver APRN, C.NBri., M.S.N. 3 12:05 PM CDT Ancillary Procedure Department of Nursing 3 3:00 PM CDT Ancillary Procedure Department of Family Medicine 3 12:46 PM CDT - 3 11:20 AM CDT Hospital Encounter [facility], [facility], Fourth Floor [address] [place] [address] Leslie Mosley P.A.-C., M.S. Grzegorz Mccord P.A.-C. Jerzy Morris M.D. Palmer, Allyson K, M.D., Ph.D. Marah Ordoñez M.B.B.S., MThad Barajas M.D. Radiculopathy Lumbar (Primary Dx); Pain Back Lumbar; Decline Functional Status [R53.81 (ICD-10-CM)] Discharge Disposition: Transitional Care Unit 3 Orders Only Department of Neurologic Surgery in [place], [place] [address] [place] [address] Jovi Teague M.D. Stenosis Spinal Lumbar With Neurogenic Claudication (Primary Dx) 3 Clinical Communication [facility] [address] [place] [address] Susan Whiting P.A.-C. 3 Clinical Communication [facility] [address] [place] [address] Charlene Redman M.D. Pre-visit Testing Orders; Follow-up Orders; Order Request 3 Orders Only [facility] [address] [place] [address] Altagracia Moseley M.B.B.S., M.D. 3 Clinical Communication [facility]ST [facility] [address] [place] [address] Altagracia Moseley M.B.B.S., M.D. Order Request 2 Documentation Department of Cardiovascular Medicine in [place], [place] [address] [place] [address] Kristian Dasilva M.D. 2 7:21 AM LIQUID CHLORINE OPERATOR - 2 7:37 AM LIQUID CHLORINE OPERATOR Hospital Encounter Department of Vascular Medicine in [place], [place] [address] [place] [address] Claribel Alan M.D., Ph.D. 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 Remote Patient Monitoring (Alert: Atrial Fibrillation ) 2 11:49 AM CDT - 2 11:59 PM CDT Hospital Encounter Division of Cardiovascular Diseases in [place], [place] [address] [address] Askew, J. Wells, M.D. Atrial Fibrillation Unspecified Discharge Disposition: Home or Self Care 2 9:30 AM CDT Comprehensive Visit Department of Cardiovascular Medicine in [place], [place] [address] [place] [address] Kristian Dasilva M.D. Atrial Fibrillation Unspecified (Primary Dx); Obstructive Sleep Apnea Adult; Morbid Obesity (HCC); Diabetes Mellitus Type 2 (HCC); Hypertension And Chronic Kidney Disease Stage 3 (HCC); Anemia 2 10:12 AM CDT - 2 11:59 PM CDT Hospital Encounter Department of Radiology, [facility] in [place], [place] [address] [place] [address] Mickey Galvan M.D. Atrial Fibrillation Unspecified Discharge Disposition: Home or Self Care 2 10:22 AM CDT - 2 11:59 PM CDT Hospital Encounter Department of Laboratory Medicine and Pathology, [facility] in [place], [place] [address] [place] [address] Mickey Galvan M.D. Atrial Fibrillation Unspecified Discharge Disposition: Home or Self Care 2 9:41 AM CDT - 2 10:21 AM CDT Hospital Encounter Department of Cardiovascular Diseases in [place], [place] [address] [place] [address] Mickey Galvan M.D. Atrial Fibrillation Unspecified Discharge Disposition: Home or Self Care 2 7:30 AM CDT - 2 9:40 AM CDT Hospital Encounter Department of Cardiovascular Diseases in [place], [place] [address] [place] [address] Mickey Galvan M.D. Atrial Fibrillation Unspecified Discharge Disposition: Home or Self Care 2 Clinical Communication Department of Cardiovascular Medicine in [place], [place] [address] [place] [phone] Compliance Quality Performance AnalystJorge M.D. Triage 2 9:45 AM CDT Telemedicine [facility] in [place], [place] [address] [place] [address] Dae Velásquez M.D., M.S. Georgia Rios R.N., CCRN Obstructive Sleep Apnea Adult 2 11:30 AM CDT Telemedicine [facility] in [place], [place] [address] [place] [address] Dae Velásquez M.D., M.S. Obstructive Sleep Apnea Adult (Primary Dx); Morbid Obesity (HCC); Obesity Body Mass Index 30-39.9 Adult; Fatigue 2 8:00 AM CDT Telemedicine Department of Urology in [place], [place] [address] [place] [address] Suzette Fox APRN, C.N.P., D.N.P. Diabetes Mellitus Type 2 (HCC) (Primary Dx); Infection Urinary Tract 2 Clinical Communication Department of Cardiovascular Medicine in [place], [place] [address] [place] [phone] Compliance Quality Performance AnalystJorge M.D. Triage (Cons/ neph/ Jade/ [id number]) 2 Clinical Communication Department of Urology in [place], [place] [address] [place] [address] Faye Bhatia APRN, C.N.P., D.N.P. Phone call 2 4:30 PM LIQUID CHLORINE OPERATOR Virtual Visit Division of Nephrology and Hypertension in [place], [place] [address] [place] [phone] Mickey Galvan M.D. Infection Urinary Tract; Diabetes Mellitus Type 2 (HCC) 1 Refill [facility] in [place], [place] [address] [place] [address] Dae Velásquez M.D., M.S. Med Refill (cpap protocal ) 1 Clinical Communication Department of Urology in [place], [place] [address] [place] [address] Zahira Rae P.A.-C. 1 8:45 AM LIQUID CHLORINE OPERATOR Comprehensive Visit Department of Urology in [place], [place] [address] [place] [address] Zahira Rae P.A.-C. Infection Urinary Tract (Primary Dx); Hematuria; Pyuria 1 1:30 PM LIQUID CHLORINE OPERATOR Procedure visit Department of Urology in [place], [place] [address] [place] [address] Mickey Galvan M.D. Carlson, Stephen M, APRN CAjitN.P. Hematuria; Pyuria; Infection Urinary Tract; Deficiency Urethral Sphincter Intrinsic ; Neuromuscular Dysfunction Of Bladder Unspecified 1 10:58 AM LIQUID CHLORINE OPERATOR - 1 11:59 PM LIQUID CHLORINE OPERATOR Hospital Encounter Department of Laboratory Medicine and Pathology, [place], [place] [address] [place] [address] Mickey Galvan M.D. Hematuria; Pyuria; Infection Urinary Tract Discharge Disposition: Home or Self Care 1 10:45 AM LIQUID CHLORINE OPERATOR Procedure visit Department of Urology in [place], [place] [address] [place] [phone] Mickey Galvan M.D. Linder, Brian J, M.D. Savita Veronica, L.P.N. Infection Urinary Tract Recurrent (Primary Dx); Infection Urinary Tract; Deficiency Urethral Sphincter Intrinsic 1 Orders Only Division of Nephrology and Hypertension in [address] [address] Mickey Galvan M.D. Hematuria (Primary Dx); Pyuria; Infection Urinary Tract; Deficiency Urethral Sphincter Intrinsic ; Neuromuscular Dysfunction Of Bladder Unspecified ; Other Specified Diabetes Mellitus With Diabetic Chronic Kidney Disease (HCC) 1 12:40 PM CDT - 1 11:59 PM CDT Hospital Encounter Department of Laboratory Medicine and Pathology, [place], [place] [address] [place] [address] Mickey Galvan M.D. Hypertension And Chronic Kidney Disease Stage 3 Discharge Disposition: Home or Self Care 1 12:40 PM CDT - 1 11:59 PM CDT Hospital Encounter Department of Laboratory Medicine and Pathology, [facility], in [place], [place] [address] [place] [phone] Mickey Galvan M.D. Hypertension And Chronic Kidney Disease Stage 3; Dysuria Discharge Disposition: Home or Self Care 1 3:00 PM CDT Office Visit Division of Nephrology and Hypertension in [place], [place] [address] [place] [phone] Mickey Galvan M.D. Infection Urinary Tract (Primary Dx); Stones Uric Acid; Nephrolithiasis; Chronic Kidney Disease (CKD), Stage 3a Glomerular Filtration Rate (GFR) 45 To 59 ([facility]); Diabetes Mellitus Type 2 ([facility]) 1 Clinical Communication Division of Nephrology and Hypertension in [place], [place] [address] [place] [phone] Mickey Galvan M.D. Pre-visit Testing Orders 1 Clinical Communication [facility] in [place], [place] [address] [place] [phone] Dae Velásquez M.D., M.S. Med Refill (CPAP RX PROTOCOL ) 0 Clinical Communication [facility] in [place], [place] [address] [place] [phone] Dae Velásquez M.D., M.S. 0 10:00 AM CDT Telemedicine [facility] in [place], [place] [address] [place] [address] Dae Velásquez M.D., M.S. Apnea Sleep Obstructive; Diabetes Mellitus Type 2 (HCC); Hypertension And Chronic Kidney Disease Stage 3 ([facility]); Morbid Obesity Body Mass Index Greater Than Or Equal To 40 Adult ([facility]) 0 10:30 AM LIQUID CHLORINE OPERATOR Procedure visit Department of Urology in [place], [place] [address] [place] [address] Lynda Yanes M.D. O'Hara, Alex J, BETHANY, CAjitNAjitP., M.S.N. Stent Ureteral Indwelling (Primary Dx); Stone Kidney And Ureteral 0 12:16 PM LIQUID CHLORINE OPERATOR - 0 11:59 PM LIQUID CHLORINE OPERATOR Hospital Encounter Department of Radiology, [facility], in [place], [place] [address] [place] [address] Turner Souza M.D. Stone Kidney Discharge Disposition: Home or Self Care 9 Clinical Communication Department of Urology in [place], [place] [address] [place] [phone] Provider, Unknown surgery questions 9 Documentation Division of Breast, Endocrine, Metabolic, and Gastrointestinal Surgery in [place], [place] [address] [place] [phone] Candi Mathis M.D. 9 Clinical Communication Department of Urology in [place], [place] [address] [place] [phone] Lynda Yanes M.D. 9 9:45 AM LIQUID CHLORINE OPERATOR - 9 11:40 AM LIQUID CHLORINE OPERATOR Surgery [facility] [address] [place] [phone] James Mina M.D. URETEROSCOPY WITH LASER LITHOTRIPSY, proceed as indicated. 9 11:16 AM LIQUID CHLORINE OPERATOR Anesthesia Event [facility] [address] [place] [phone] Herman Cruz M.D. Weingarten, Toby N, M.D. 9 8:40 AM LIQUID CHLORINE OPERATOR - 9 4:37 PM LIQUID CHLORINE OPERATOR Hospital Encounter [facility] [address] [place] [phone] James Mina M.D. Stone Kidney And Ureteral Discharge Disposition: Home or Self Care 9 11:00 AM LIQUID CHLORINE OPERATOR Education Division of General Internal Medicine in [place], [place] [address] [place] [phone] Alicia Zapata R.N. 9 9:30 AM LIQUID CHLORINE OPERATOR Comprehensive Visit Division of General Internal Medicine in [place], [place] [address] [place] [address] Lynda Yanes M.D. Kebede, Esayas B, M.D. Preanesthetic Medical Exam (Primary Dx); Stone Kidney And Ureteral; Hypertension And Chronic Kidney Disease Stage 3 (HCC); Chronic Kidney Disease Stage 3 Glomerular Filtration Rate 30 To 59; Morbid Obesity Body Mass Index Greater Than Or Equal To 40 Adult (HCC); Apnea Sleep Obstructive 9 Orders Only Department of Urology in [address] [phone] Lynda Yanes M.D. 9 Clinical Communication Department of Urology in [place], [place] [address] [place] [phone] Provider, Unknown OUTSIDE LABS 9 Clinical Communication Department of Urology in [place], [place] [address] [place] [phone] Lynda Yanes M.D. Outside urine results 9 Clinical Communication Department of Urology in [address] [phone] Lynda Yanes M.D. 9 Orders Only Department of Urology in [address] [phone] Lynda Yanes M.D. Stone Kidney And Ureteral (Primary Dx) 9 3:42 AM LIQUID CHLORINE OPERATOR - 9 1:48 PM LIQUID CHLORINE OPERATOR Hospital Encounter [facility], [facility], [facility], Sixth Floor [address] [place] [phone] Rito Hays M.D. Stone Kidney And Ureteral (Primary Dx); Nephrolithiasis; Decline Functional Status Discharge Disposition: Home or Self Care 9 Orders Only Department of Urology in [address] [phone] Lynda Yanes M.D. 9 1:25 PM LIQUID CHLORINE OPERATOR Ancillary Procedure Department of Urology 9 11:47 AM LIQUID CHLORINE OPERATOR Anesthesia Event [facility] [address] [place] [phone] Scooby Haas M.D. Alleckson, Jonathan D, APRN, EDGARDO, D.N.P. 9 11:18 AM LIQUID CHLORINE OPERATOR - 9 1:13 PM LIQUID CHLORINE OPERATOR Surgery [facility] [address] [place] [phone] Ashkan Villanueva M.D. CYSTOURETHROSCOPY WITH PLACEMENT URETERAL STENT 9 Intake [facility] 9 Clinical Communication [facility] in [place], [place] [address] [place] [address] Reinier Flores M.D. Reschedule ( Automatic Appointment Reminder to reschedule appointment.) 9 Clinical Communication Division of Nephrology and Hypertension in [place], [place] [address] [place] [address] Mickey Galvan M.D. phone call 9 Orders Only Department of Urology in [place], [place] [address] [place] [address] Turner Souza M.D. Stone Kidney 9 7:00 AM CDT - 9 11:59 PM CDT Hospital Encounter Department of Radiology, [facility], in [place], [place] [address] [place] [address] Mickey Galvan M.D. Stones Uric Acid Discharge Disposition: Home or Self Care 9 10:30 AM CDT Office Visit Division of Nephrology and Hypertension in [place], [place] [address] [place] [address] Mickey Galvan M.D. Stones Uric Acid (Primary Dx); Diabetes Mellitus Type 2 (HCC); Morbid Obesity Body Mass Index Greater Than Or Equal To 40 Adult (HCC) 9 Orders Only Division of Nephrology and Hypertension in [place], [place] [address] [place] [phone] Mickey Galvan M.D. Diabetes Mellitus Type 2 (HCC) (Primary Dx); Morbid Obesity Body Mass Index Greater Than Or Equal To 40 Adult (HCC); Stones Uric Acid 9 11:30 AM CDT Office Visit Division of Nephrology and Hypertension in [place], [place] [address] [place] [address] Mickey Galvan M.D. Stones Uric Acid (Primary Dx) 9 3:00 PM CDT Clinical Support Department of Nutrition and Diabetes Education in [place], [place] [address] [place] [address] Whitney Monroe M.S., RDN, LD Stone Kidney 9 11:48 AM CDT - 9 11:59 PM CDT Hospital Encounter Department of Radiology, [place], [place] [address] [place] [address] Mickey Galvan M.D. Stone Kidney Discharge Disposition: Home or Self Care 9 10:20 AM CDT - 9 10:32 AM CDT Hospital Encounter Department of Laboratory Medicine and Pathology, [place], [place] [address] [place] [phone] Mickey Galvan M.D. Stone Kidney Discharge Disposition: Home or Self Care 9 10:34 AM CDT - 9 11:47 AM CDT Hospital Encounter Department of Laboratory Medicine and Pathology, [place], [place] [address] [place] [phone] Mickey Galvan M.D. Stone Kidney Discharge Disposition: Home or Self Care 9 10:33 AM CDT Hospital Encounter Department of Laboratory Medicine and Pathology, [place], [place] [address] [place] [phone] Mickey Galvan M.D. Stone Kidney Discharge Disposition: Home or Self Care 9 Orders Only Division of Nephrology and Hypertension in [place], [place] [address] [place] [address] Mickey Galvan M.D. Diabetes Mellitus Type 2 (HCC) (Primary Dx); Stone Kidney 9 9:30 AM CDT Comprehensive Visit Division of Nephrology and Hypertension in [place], [place] [address] [place] [address] Mickey Galvan M.D. Diabetes Mellitus Type 2 (HCC) (Primary Dx); Morbid Obesity Body Mass Index Greater Than Or Equal To 40 Adult (HCC); Nephrolithiasis Calcium Oxalate; Stones Uric Acid; Proteinuria; Hypertension Essential Primary 9 Refill [facility] in [place], [place] [address] [place] [address] Reinier Flores M.D. Med Refill (cpap protocol) 8 Clinical Communication Division of Nephrology and Hypertension in [place], [place] [address] [place] [address] Kevin Santiago M.D., Ph.D. Pre-visit Testing Orders (02/13 appt) 8 Abstract DATA ABSTRACTION Provider, Historical 8 Refill [facility] in [place], [place] [address] [place] [address] Nestor Quezada R.N. Med Refill (CPAP PROTOCOL) 8 Orders Only [facility] in [place], [place] [address] [place] [address] Reinier Flores M.D. 7 - 7 11:59 [...] 150 beats. 02/06 - day mobile cardiac library monitor: underlying rhythm of sinus, intermittent sinus [...] 4. Electronically signed by: Kimi Manzano M.D. [id number] 10-Aug-2016 12:45 Failed Gabapentin in 12/2022. Switched [...] - MODE RNA (12 YEARS AND OLDER) [id number] 02/18/2023 Td (Adult), adsorbed 04/02/2019(Deferred : Other [...] cousins Maternal Grandfather (Age 60s) d . [place] Maternal Grandmother (Age 81) Mother (Age 87) Mother's Brother (Age 80s) Heart issues Niece/Nephew Alive No cancer hx fo r nieces or nephews Paternal Cousin Alive No known can cer hx for cousins Paternal Grandfather (Age 60s) d . Heart issues/ Stroke Paternal Grandmother (Age 80s) H eart issues Sister (Age 61) d. Cancer Social History Smoking Status as of 10/12/2023 Tobacco Use Types Packs/Day Years Used Date Smoking Tobacco: Never Assessed [facility] Utilities Answer Date Recorded In the past 12 months has e [employer], [employer], or water [employer] threatened to shut off services in your [...] any clubs o r organizations such as sikh groups, unions, fraternal or athletic groups, or [...] and heating? Not hard at all 02/11/2023 [facility] - Occupational Stress Questionnaire Answer Date [...] Sex Assigned at Male 06/14/2018 8:36 PM LIQUID CHLORINE OPERATOR Gender Identity Male 10/11/2022 10:17 PM CDT Sexual Orientation Choose not to disclose 2019 1:31 PM LIQUID CHLORINE OPERATOR Last Filed Vital Signs Vital Sign Reading [...] 185 cm (6' 0.84) 05/11/2023 2:15 PM LIQUID CHLORINE OPERATOR Body Mass Index 55.11 05/11/2023 2:15 PM LIQUID CHLORINE OPERATOR Plan of Treatment Not on file Medical Devices Explanted Type Area Assembler Wire Group Device Identifier Shelf Expiration Date Model / Serial / Lot Stnt Uret Inl 6fx26 - [id number] Implanted:Qty : 1 on 04/04/2019 by Julian Mayfield M.D. at [facility] Ureteral Stent Right: Ureter [employer] [id number] 01/25/2022 [id number] / / [id number] Stnt Uret Inl 7fx26 - [id number] Implanted:Qty : 1 on 03/12/2019 by Ashkan Villanueva M.D. at [facility] Explanted: by Keith Lovelace APRN, C.N.P., M.S.N. 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 Molecular Detection Routine 06/01/2023 12:00 AM LIQUID CHLORINE OPERATOR MISCELLANEOUS SENT OUT LAB TEST Routine 06/01/2023 12:00 AM LIQUID CHLORINE OPERATOR Malignant Neoplasm Of Colon Ascending (HCC) GLUCOSE POCT, B Routine 05/16/2023 9:35 AM LIQUID CHLORINE OPERATOR GLUCOSE POCT, B Routine 05/15/2023 9:10 PM LIQUID CHLORINE OPERATOR GLUCOSE POCT, B Routine 05/15/2023 4:41 PM LIQUID CHLORINE OPERATOR GLUCOSE POCT, B Routine 05/15/2023 2:04 PM LIQUID CHLORINE OPERATOR SARS COV-2 RNA, PCR, VARIES Routine 05/15/2023 9:10 AM LIQUID CHLORINE OPERATOR REMOTE OXIMETRY MONITORING CONT. Routine 05/15/2023 8:00 AM LIQUID CHLORINE OPERATOR GLUCOSE POCT, B Routine 05/15/2023 7:46 AM LIQUID CHLORINE OPERATOR GLUCOSE POCT, B Routine 05/14/2023 8:33 PM LIQUID CHLORINE OPERATOR REMOTE OXIMETRY MONITORING CONT. Routine 05/14/2023 8:01 PM LIQUID CHLORINE OPERATOR GLUCOSE POCT, B Routine 05/14/2023 4:04 PM LIQUID CHLORINE OPERATOR GLUCOSE POCT, B Routine 05/14/2023 1:51 PM LIQUID CHLORINE OPERATOR GLUCOSE POCT, B Routine 05/14/2023 12:13 PM LIQUID CHLORINE OPERATOR REMOTE OXIMETRY MONITORING CONT. Routine 05/14/2023 8:01 AM LIQUID CHLORINE OPERATOR GLUCOSE POCT, B Routine 05/14/2023 7:33 AM LIQUID CHLORINE OPERATOR GLUCOSE POCT, B Routine 05/13/2023 10:05 PM LIQUID CHLORINE OPERATOR REMOTE OXIMETRY MONITORING CONT. Routine 05/13/2023 8:00 PM LIQUID CHLORINE OPERATOR GLUCOSE POCT, B Routine 05/13/2023 3:10 PM LIQUID CHLORINE OPERATOR REMOTE OXIMETRY MONITORING CONT. Routine 05/13/2023 8:01 AM LIQUID CHLORINE OPERATOR GLUCOSE POCT, B Routine 05/13/2023 7:52 AM LIQUID CHLORINE OPERATOR GLUCOSE POCT, B Routine 05/13/2023 3:55 AM LIQUID CHLORINE OPERATOR REMOTE OXIMETRY MONITORING CONT. Routine 05/13/2023 12:51 AM LIQUID CHLORINE OPERATOR REMOTE OXIMETRY MONITORING CONT. Routine 05/13/2023 12:51 AM LIQUID CHLORINE OPERATOR REMOTE OXIMETRY MONITORING CONT. Routine 05/13/2023 12:51 AM LIQUID CHLORINE OPERATOR GLUCOSE POCT, B Routine 05/12/2023 8:33 PM LIQUID CHLORINE OPERATOR HIV-1/HIV-2 AB RAPID PT SOURCE, B STAT 05/12/2023 5:44 PM LIQUID CHLORINE OPERATOR HIV-1/-2 AG AND AB PS, PLASMA STAT 05/12/2023 5:44 PM LIQUID CHLORINE OPERATOR HBS ANTIGEN PATIENT SOURCE STAT 05/12/2023 5:44 PM LIQUID CHLORINE OPERATOR HCV RNA PT SOURCE, S STAT 05/12/2023 5:44 PM LIQUID CHLORINE OPERATOR GLUCOSE POCT, B Routine 05/12/2023 4:32 PM LIQUID CHLORINE OPERATOR MAYOCOMPLETE CRC PANEL Routine 3:47 PM LIQUID CHLORINE OPERATOR GLUCOSE POCT, B Routine 05/12/2023 1:47 PM LIQUID CHLORINE OPERATOR ADULT OXYGEN THERAPY Routine 05/12/2023 1:29 PM LIQUID CHLORINE OPERATOR SURGICAL PATHOLOGY, [facility] Routine 05/12/2023 12:49 PM LIQUID CHLORINE OPERATOR Malignant Neoplasm Of Colon Ascending (HCC) GLUCOSE POCT, B Routine 05/12/2023 11:26 AM LIQUID CHLORINE OPERATOR LDA ANE ARTERIAL LINE INSERTION Routine 05/12/2023 10:45 AM LIQUID CHLORINE OPERATOR LA ARTL CATH/CNULA MONITOR PERC Routine 05/12/2023 10:45 AM LIQUID CHLORINE OPERATOR LDA ANE ENDOTRACHEAL AIRWAY Routine 05/12/2023 10:31 AM LIQUID CHLORINE OPERATOR LAPAROSCOPIC COLECTOMY RIGHT WITH ANASTOMOSIS 05/12/2023 9:59 AM LIQUID CHLORINE OPERATOR Malignant Neoplasm Of Colon Ascending (HCC) GLUCOSE POCT, B Routine 05/12/2023 9:07 AM LIQUID CHLORINE OPERATOR GLUCOSE POCT, B Routine 05/11/2023 9:40 PM LIQUID CHLORINE OPERATOR GLUCOSE POCT, B Routine 05/11/2023 4:56 PM LIQUID CHLORINE OPERATOR ANTIBODY IDENTIFICATION Routine 05/11/19 3:18 PM LIQUID CHLORINE OPERATOR HEMOGLOBIN A1C, B Routine 05/11/2023 3:18 PM LIQUID CHLORINE OPERATOR TYPE AND SCREEN Routine 05/11/2023 3:18 PM LIQUID CHLORINE OPERATOR CBC WITH DIFFERENTIAL, B Routine 05/11/2023 3:18 PM LIQUID CHLORINE OPERATOR BASIC METABOLIC PANEL, S/P Routine 05/11/2023 3:18 PM LIQUID CHLORINE OPERATOR GLUCOSE POCT, B Routine 04/27/2023 7:05 AM LIQUID CHLORINE OPERATOR MAGNESIUM, S Routine 04/27/2023 6:34 AM LIQUID CHLORINE OPERATOR BASIC METABOLIC PANEL, S/P Routine 04/27/2023 6:34 AM LIQUID CHLORINE OPERATOR GLUCOSE POCT, B Routine 04/26/2023 9:34 PM LIQUID CHLORINE OPERATOR GLUCOSE POCT, B Routine 04/26/2023 5:03 PM LIQUID CHLORINE OPERATOR URINALYSIS WITH MICROSCOPIC Routine 04/26/2023 2:10 PM LIQUID CHLORINE OPERATOR GLUCOSE POCT, B Routine 04/26/2023 11:58 AM LIQUID CHLORINE OPERATOR ADULT OXYGEN THERAPY Routine 04/26/2023 8:00 AM LIQUID CHLORINE OPERATOR GLUCOSE POCT, B Routine 04/26/2023 7:03 AM LIQUID CHLORINE OPERATOR GLUCOSE POCT, B Routine 04/25/2023 8:29 PM LIQUID CHLORINE OPERATOR ADULT OXYGEN THERAPY Routine 04/25/2023 8:00 PM LIQUID CHLORINE OPERATOR GLUCOSE POCT, B Routine 04/25/2023 4:57 PM LIQUID CHLORINE OPERATOR GLUCOSE POCT, B Routine 04/25/2023 12:02 PM LIQUID CHLORINE OPERATOR ADULT OXYGEN THERAPY Routine 04/25/2023 8:00 AM LIQUID CHLORINE OPERATOR GLUCOSE POCT, B Routine 04/25/2023 6:57 AM LIQUID CHLORINE OPERATOR GLUCOSE POCT, B Routine 04/24/2023 9:10 PM LIQUID CHLORINE OPERATOR ADULT OXYGEN THERAPY Routine 04/24/2023 8:00 PM LIQUID CHLORINE OPERATOR GLUCOSE POCT, B Routine 04/24/2023 4:54 PM LIQUID CHLORINE OPERATOR GLUCOSE POCT, B Routine 04/24/2023 12:00 PM LIQUID CHLORINE OPERATOR MAGNESIUM, S Routine 04/24/2023 9:36 AM LIQUID CHLORINE OPERATOR COMPREHENSIVE METABOLIC PANEL, S/P Routine 04/24/2023 9:36 AM LIQUID CHLORINE OPERATOR ADULT OXYGEN THERAPY Routine 04/24/2023 8:00 AM LIQUID CHLORINE OPERATOR GLUCOSE POCT, B Routine 04/24/2023 6:59 AM LIQUID CHLORINE OPERATOR GLUCOSE POCT, B Routine 04/23/2023 9:10 PM LIQUID CHLORINE OPERATOR ADULT OXYGEN THERAPY Routine 04/23/2023 8:01 PM LIQUID CHLORINE OPERATOR GLUCOSE POCT, B Routine 04/23/2023 5:10 PM LIQUID CHLORINE OPERATOR GLUCOSE POCT, B Routine 04/23/2023 12:05 PM LIQUID CHLORINE OPERATOR ADULT OXYGEN THERAPY Routine 04/23/2023 8:00 AM LIQUID CHLORINE OPERATOR GLUCOSE POCT, B Routine 04/23/2023 7:01 AM LIQUID CHLORINE OPERATOR GLUCOSE POCT, B Routine 04/22/2023 9:02 PM LIQUID CHLORINE OPERATOR ADULT OXYGEN THERAPY Routine 04/22/2023 8:00 PM LIQUID CHLORINE OPERATOR GLUCOSE POCT, B Routine 04/22/2023 4:54 PM LIQUID CHLORINE OPERATOR GLUCOSE POCT, B Routine 04/22/2023 11:59 AM LIQUID CHLORINE OPERATOR ADULT OXYGEN THERAPY Routine 04/22/2023 8:01 AM LIQUID CHLORINE OPERATOR GLUCOSE POCT, B Routine 04/22/2023 7:09 AM LIQUID CHLORINE OPERATOR GLUCOSE POCT, B Routine 04/21/2023 9:56 PM LIQUID CHLORINE OPERATOR ADULT OXYGEN THERAPY Routine 04/21/2023 8:00 PM LIQUID CHLORINE OPERATOR GLUCOSE POCT, B Routine 04/21/2023 5:14 PM LIQUID CHLORINE OPERATOR GLUCOSE POCT, B Routine 04/21/2023 12:00 PM LIQUID CHLORINE OPERATOR BASIC METABOLIC PANEL, S/P Routine 04/21/2023 8:40 AM LIQUID CHLORINE OPERATOR CBC WITH DIFFERENTIAL, B Routine 04/21/2023 8:40 AM LIQUID CHLORINE OPERATOR ADULT OXYGEN THERAPY Routine 04/21/2023 8:01 AM LIQUID CHLORINE OPERATOR GLUCOSE POCT, B Routine 04/21/2023 7:01 AM LIQUID CHLORINE OPERATOR GLUCOSE POCT, B Routine 04/20/2023 8:24 PM LIQUID CHLORINE OPERATOR ADULT OXYGEN THERAPY Routine 04/20/2023 8:01 PM LIQUID CHLORINE OPERATOR GLUCOSE POCT, B Routine 04/20/2023 5:08 PM LIQUID CHLORINE OPERATOR BACTERIA / RONDA CULTURE, BLOOD Routine 04/20/2023 12:50 PM LIQUID CHLORINE OPERATOR BACTERIA / RONDA CULTURE, BLOOD Routine 04/20/2023 12:41 PM LIQUID CHLORINE OPERATOR GLUCOSE POCT, B Routine 04/20/2023 12:06 PM LIQUID CHLORINE OPERATOR ADULT OXYGEN THERAPY Routine 04/20/2023 8:00 AM LIQUID CHLORINE OPERATOR GLUCOSE POCT, B Routine 04/20/2023 6:57 AM LIQUID CHLORINE OPERATOR CBC WITH DIFFERENTIAL, B Routine 04/20/2023 5:46 AM LIQUID CHLORINE OPERATOR BASIC METABOLIC PANEL, S/P Routine 04/20/2023 5:46 AM LIQUID CHLORINE OPERATOR ADULT OXYGEN THERAPY Routine 04/19/2023 8:01 PM LIQUID CHLORINE OPERATOR GLUCOSE POCT, B Routine 04/19/2023 7:47 PM LIQUID CHLORINE OPERATOR GLUCOSE POCT, B Routine 04/19/2023 5:07 PM LIQUID CHLORINE OPERATOR GLUCOSE POCT, B Routine 04/19/2023 12:09 PM LIQUID CHLORINE OPERATOR ADULT OXYGEN THERAPY Routine 04/19/2023 8:02 AM LIQUID CHLORINE OPERATOR GLUCOSE POCT, B Routine 04/19/2023 7:24 AM LIQUID CHLORINE OPERATOR BASIC METABOLIC PANEL, S/P Routine 04/19/2023 5:50 AM LIQUID CHLORINE OPERATOR CBC WITH DIFFERENTIAL, B Routine 04/19/2023 5:50 AM LIQUID CHLORINE OPERATOR GLUCOSE POCT, B Routine 04/18/2023 9:11 PM LIQUID CHLORINE OPERATOR ADULT OXYGEN THERAPY Routine 04/18/2023 8:00 PM LIQUID CHLORINE OPERATOR GLUCOSE POCT, B Routine 04/18/2023 4:50 PM LIQUID CHLORINE OPERATOR LACTATE, B/P Routine 04/18/2023 4:33 PM LIQUID CHLORINE OPERATOR INFLUENZA A, B, RSV, PCR, POCT Routine 04/18/2023 3:25 PM LIQUID CHLORINE OPERATOR SARS CORONAVIRUS 2, PCR RAPID, V Routine 04/18/2023 3:25 PM LIQUID CHLORINE OPERATOR CT ABDOMEN PELVIS WITH IV CONTRAST RAD - Routine (most inpatients and all outpatients) 04/18/2023 2:12 PM LIQUID CHLORINE OPERATOR URINALYSIS WITH MICROSCOPIC Routine 04/18/2023 12:50 PM LIQUID CHLORINE OPERATOR BACTERIA / RONDA CULTURE, BLOOD Routine 04/18/2023 12:34 PM LIQUID CHLORINE OPERATOR LACTATE, B/P STAT 04/18/2023 12:29 PM LIQUID CHLORINE OPERATOR LACTATE FOR SEPSIS WITH REFLEX STAT 04/18/2023 12:29 PM LIQUID CHLORINE OPERATOR ANTIMICROBIAL SUSCEPTIBILITY, ANAEROBIC BACTERIA, JEANCARLOS Routine 04/18/2023 12:29 PM LIQUID CHLORINE OPERATOR BACTERIA / RONDA CULTURE, BLOOD Routine 04/18/2023 12:29 PM LIQUID CHLORINE OPERATOR COMPREHENSIVE METABOLIC PANEL, S/P STAT 04/18/2023 12:28 PM LIQUID CHLORINE OPERATOR CBC WITH DIFFERENTIAL, B STAT 04/18/2023 12:28 PM LIQUID CHLORINE OPERATOR GLUCOSE POCT, B Routine 04/18/2023 11:26 AM LIQUID CHLORINE OPERATOR ADULT OXYGEN THERAPY Routine 04/18/2023 8:00 AM LIQUID CHLORINE OPERATOR GLUCOSE POCT, B Routine 04/18/2023 7:22 AM LIQUID CHLORINE OPERATOR GLUCOSE POCT, B Routine 04/17/2023 9:09 PM LIQUID CHLORINE OPERATOR ADULT OXYGEN THERAPY Routine 04/17/2023 8:00 PM LIQUID CHLORINE OPERATOR GLUCOSE POCT, B Routine 04/17/2023 5:11 PM LIQUID CHLORINE OPERATOR GLUCOSE POCT, B Routine 04/17/2023 11:50 AM LIQUID CHLORINE OPERATOR ADULT OXYGEN THERAPY Routine 04/17/2023 8:00 AM LIQUID CHLORINE OPERATOR GLUCOSE POCT, B Routine 04/17/2023 7:33 AM LIQUID CHLORINE OPERATOR GLUCOSE POCT, B Routine 04/16/2023 9:50 PM LIQUID CHLORINE OPERATOR ADULT OXYGEN THERAPY Routine 04/16/2023 8:00 PM LIQUID CHLORINE OPERATOR GLUCOSE POCT, B Routine 04/16/2023 5:14 PM LIQUID CHLORINE OPERATOR GLUCOSE POCT, B Routine 04/16/2023 12:26 PM LIQUID CHLORINE OPERATOR ADULT OXYGEN THERAPY Routine 04/16/2023 8:00 AM LIQUID CHLORINE OPERATOR GLUCOSE POCT, B Routine 04/16/2023 7:33 AM LIQUID CHLORINE OPERATOR GLUCOSE POCT, B Routine 04/15/2023 8:59 PM LIQUID CHLORINE OPERATOR ADULT OXYGEN THERAPY Routine 04/15/2023 8:00 PM LIQUID CHLORINE OPERATOR GLUCOSE POCT, B Routine 04/15/2023 5:21 PM LIQUID CHLORINE OPERATOR GLUCOSE POCT, B Routine 04/15/2023 12:03 PM LIQUID CHLORINE OPERATOR ECG Routine 04/15/2023 9:35 AM LIQUID CHLORINE OPERATOR ADULT OXYGEN THERAPY Routine 04/15/2023 8:01 AM [employer] OPERATOR GLUCOSE POCT, B Routine 04/15/2023 7:19 AM [employer] OPERATOR MORPHOLOGY EVALUATION Routine 04/15/2023 5:56 AM [employer] OPERATOR CBC WITH DIFFERENTIAL, B Routine 04/15/2023 5:56 AM [employer] OPERATOR GLUCOSE POCT, B Routine 04/14/2023 8:28 PM [employer] OPERATOR ADULT OXYGEN THERAPY Routine 04/14/2023 8:01 PM [employer] OPERATOR GLUCOSE POCT, B Routine 04/14/2023 5:03 PM [employer] OPERATOR GLUCOSE POCT, B Routine 04/14/2023 12:11 PM [employer] OPERATOR ADULT OXYGEN THERAPY Routine 04/14/2023 8:00 AM [employer] OPERATOR GLUCOSE POCT, B Routine 04/14/2023 7:10 AM [employer] OPERATOR ADULT OXYGEN THERAPY Routine 04/13/2023 8:00 PM [employer] OPERATOR GLUCOSE POCT, B Routine 04/13/2023 8:00 PM [employer] OPERATOR GLUCOSE POCT, B Routine 04/13/2023 5:09 PM [employer] OPERATOR GLUCOSE POCT, B Routine 04/13/2023 12:06 PM [employer] OPERATOR ADULT OXYGEN THERAPY Routine 04/13/2023 8:00 AM [employer] OPERATOR GLUCOSE POCT, B Routine 04/13/2023 7:27 AM [employer] OPERATOR URINALYSIS WITH MICROSCOPIC Routine 04/12/2023 8:52 PM [employer] OPERATOR BACTERIAL CULTURE, AEROBIC + SUSC, URINE Routine 04/12/2023 8:52 PM [employer] OPERATOR GLUCOSE POCT, B Routine 04/12/2023 8:21 PM [employer] OPERATOR ADULT OXYGEN THERAPY Routine 04/12/2023 8:01 PM [employer] OPERATOR GLUCOSE POCT, B Routine 04/12/2023 5:11 PM [employer] OPERATOR GLUCOSE POCT, B Routine 04/12/2023 12:10 PM [employer] OPERATOR ADULT OXYGEN THERAPY Routine 04/12/2023 8:01 AM [employer] OPERATOR GLUCOSE POCT, B Routine 04/12/2023 6:58 AM [employer] OPERATOR GLUCOSE POCT, B Routine 04/11/2023 8:37 PM [employer] OPERATOR ADULT OXYGEN THERAPY Routine 04/11/2023 8:00 PM [employer] OPERATOR GLUCOSE POCT, B Routine 04/11/2023 5:12 PM [employer] OPERATOR GLUCOSE POCT, B Routine 04/11/2023 12:08 PM [employer] OPERATOR ADULT OXYGEN THERAPY Routine 04/11/2023 8:00 AM [employer] OPERATOR GLUCOSE POCT, B Routine 04/11/2023 7:08 AM [employer] OPERATOR GLUCOSE POCT, B Routine 04/10/2023 8:08 PM [employer] OPERATOR ADULT OXYGEN THERAPY Routine 04/10/2023 8:00 PM [employer] OPERATOR GLUCOSE POCT, B Routine 04/10/2023 4:55 PM [employer] OPERATOR GLUCOSE POCT, B Routine 04/10/2023 11:58 AM [employer] OPERATOR ADULT OXYGEN THERAPY Routine 04/10/2023 8:00 AM [employer] OPERATOR GLUCOSE POCT, B Routine 04/10/2023 7:10 AM [employer] OPERATOR GLUCOSE POCT, B Routine 04/09/2023 8:17 PM [employer] OPERATOR ADULT OXYGEN THERAPY Routine 04/09/2023 8:00 PM [employer] OPERATOR GLUCOSE POCT, B Routine 04/09/2023 5:08 PM [employer] OPERATOR GLUCOSE POCT, B Routine 04/09/2023 12:04 PM [employer] OPERATOR ADULT OXYGEN THERAPY Routine 04/09/2023 8:01 AM [employer] OPERATOR GLUCOSE POCT, B Routine 04/09/2023 7:01 AM [employer] OPERATOR ADULT OXYGEN THERAPY Routine 04/08/2023 8:00 PM [employer] OPERATOR GLUCOSE POCT, B Routine 04/08/2023 7:53 PM [employer] OPERATOR GLUCOSE POCT, B Routine 04/08/2023 5:02 PM [employer] OPERATOR GLUCOSE POCT, B Routine 04/08/2023 12:08 PM [employer] OPERATOR ADULT OXYGEN THERAPY Routine 04/08/2023 8:01 AM [employer] OPERATOR GLUCOSE POCT, B Routine 04/08/2023 7:08 AM [employer] OPERATOR BASIC METABOLIC PANEL, S/P Routine 04/08/2023 5:52 AM [employer] OPERATOR CBC WITHOUT DIFFERENTIAL, B Routine 04/08/2023 5:52 AM [employer] OPERATOR GLUCOSE POCT, B Routine 04/07/2023 8:50 PM [employer] OPERATOR ADULT OXYGEN THERAPY Routine 04/07/2023 8:00 PM [employer] OPERATOR GLUCOSE POCT, B Routine 04/07/2023 5:00 PM [employer] OPERATOR GLUCOSE POCT, B Routine 04/07/2023 12:02 PM [employer] OPERATOR ADULT OXYGEN THERAPY Routine 04/07/2023 8:00 AM [employer] OPERATOR GLUCOSE POCT, B Routine 04/07/2023 7:19 AM [employer] OPERATOR C-REACTIVE PROTEIN (CRP), S/P Routine 04/07/2023 6:08 AM [employer] OPERATOR GLUCOSE POCT, B Routine 04/06/2023 8:52 PM [employer] OPERATOR ADULT OXYGEN THERAPY Routine 04/06/2023 8:00 PM [employer] OPERATOR GLUCOSE POCT, B Routine 04/06/2023 5:16 PM [employer] OPERATOR ADULT OXYGEN THERAPY Routine 04/06/2023 8:01 AM [employer] OPERATOR GLUCOSE POCT, B Routine 04/06/2023 6:53 AM [employer] OPERATOR GLUCOSE POCT, B Routine 04/05/2023 8:27 PM [employer] OPERATOR ADULT OXYGEN THERAPY Routine 04/05/2023 8:00 PM [employer] OPERATOR GLUCOSE POCT, B Routine 04/05/2023 5:04 PM [employer] OPERATOR GLUCOSE POCT, B Routine 04/05/2023 11:58 AM [employer] OPERATOR ADULT OXYGEN THERAPY Routine 04/05/2023 8:01 AM [employer] OPERATOR GLUCOSE POCT, B Routine 04/05/2023 7:15 AM [employer] OPERATOR GLUCOSE POCT, B Routine 04/04/2023 8:05 PM [employer] OPERATOR ADULT OXYGEN THERAPY Routine 04/04/2023 8:01 PM [employer] OPERATOR GLUCOSE POCT, B Routine 04/04/2023 4:58 PM [employer] OPERATOR GLUCOSE POCT, B Routine 04/04/2023 12:00 PM [employer] OPERATOR ADULT OXYGEN THERAPY Routine 04/04/2023 8:01 AM [employer] OPERATOR GLUCOSE POCT, B Routine 04/04/2023 7:13 AM [employer] OPERATOR MORPHOLOGY EVALUATION Routine 04/04/2023 4:42 AM [employer] OPERATOR CBC WITH DIFFERENTIAL, B Routine 04/04/2023 4:42 AM [employer] OPERATOR GLUCOSE POCT, B Routine 04/03/2023 8:58 PM [employer] OPERATOR ADULT OXYGEN THERAPY Routine 04/03/2023 8:00 PM [employer] OPERATOR GLUCOSE POCT, B Routine 04/03/2023 5:15 PM [employer] OPERATOR GLUCOSE POCT, B Routine 04/03/2023 12:11 PM [employer] OPERATOR ADULT OXYGEN THERAPY Routine 04/03/2023 8:00 AM [employer] OPERATOR GLUCOSE POCT, B Routine 04/03/2023 7:09 AM [employer] OPERATOR GLUCOSE POCT, B Routine 04/02/2023 8:44 PM [employer] OPERATOR ADULT OXYGEN THERAPY Routine 04/02/2023 8:00 PM [employer] OPERATOR GLUCOSE POCT, B Routine 04/02/2023 5:31 PM [employer] OPERATOR GLUCOSE POCT, B Routine 04/02/2023 12:02 PM [employer] OPERATOR ADULT OXYGEN THERAPY Routine 04/02/2023 8:00 AM [employer] OPERATOR GLUCOSE POCT, B Routine 04/02/2023 7:19 AM [employer] OPERATOR GLUCOSE POCT, B Routine 04/01/2023 8:42 PM [employer] OPERATOR ADULT OXYGEN THERAPY Routine 04/01/2023 8:00 PM [employer] OPERATOR GLUCOSE POCT, B Routine 04/01/2023 5:26 PM [employer] OPERATOR GLUCOSE POCT, B Routine 04/01/2023 12:20 PM [employer] OPERATOR ADULT OXYGEN THERAPY Routine 04/01/2023 8:00 AM [employer] OPERATOR GLUCOSE POCT, B Routine 04/01/2023 7:07 AM [employer] OPERATOR GLUCOSE POCT, B Routine 03/31/2023 8:05 PM [employer] OPERATOR ADULT OXYGEN THERAPY Routine 03/31/2023 8:00 PM [employer] OPERATOR GLUCOSE POCT, B Routine 03/31/2023 5:14 PM [employer] OPERATOR URINALYSIS WITH MICROSCOPIC Routine 03/31/2023 4:59 PM [employer] OPERATOR GLUCOSE POCT, B Routine 03/31/2023 12:03 PM [employer] OPERATOR ADULT OXYGEN THERAPY Routine 03/31/2023 8:01 AM [employer] OPERATOR GLUCOSE POCT, B Routine 03/31/2023 7:09 AM [employer] OPERATOR GLUCOSE POCT, B Routine 03/30/2023 8:42 PM [employer] OPERATOR ADULT OXYGEN THERAPY Routine 03/30/2023 8:01 PM [employer] OPERATOR GLUCOSE POCT, B Routine 03/30/2023 5:02 PM [employer] OPERATOR GLUCOSE POCT, B Routine 03/30/2023 12:16 PM [employer] OPERATOR ADULT OXYGEN THERAPY Routine 03/30/2023 8:01 AM [employer] OPERATOR GLUCOSE POCT, B Routine 03/30/2023 7:15 AM [employer] OPERATOR GLUCOSE POCT, B Routine 03/29/2023 8:35 PM [employer] OPERATOR ADULT OXYGEN THERAPY Routine 03/29/2023 8:00 PM [employer] OPERATOR GLUCOSE POCT, B Routine 03/29/2023 5:22 PM [employer] OPERATOR GLUCOSE POCT, B Routine 03/29/2023 12:18 PM [employer] OPERATOR ADULT OXYGEN THERAPY Routine 03/29/2023 8:00 AM [employer] OPERATOR GLUCOSE POCT, B Routine 03/29/2023 7:06 AM [employer] OPERATOR GLUCOSE POCT, B Routine 03/28/2023 9:11 PM [employer] OPERATOR ADULT OXYGEN THERAPY Routine 03/28/2023 8:00 PM [employer] OPERATOR GLUCOSE POCT, B Routine 03/28/2023 5:15 PM [employer] OPERATOR GLUCOSE POCT, B Routine 03/28/2023 12:21 PM [employer] OPERATOR ADULT OXYGEN THERAPY Routine 03/28/2023 8:00 AM [employer] OPERATOR GLUCOSE POCT, B Routine 03/28/2023 7:22 AM [employer] OPERATOR IRON AND TOT IRON-BINDING CAPACITY, S/P Routine 03/28/2023 6:01 AM [employer] OPERATOR CBC WITH DIFFERENTIAL, B Routine 03/28/2023 6:01 AM [employer] OPERATOR GLUCOSE POCT, B Routine 03/27/2023 8:55 PM [employer] OPERATOR ADULT OXYGEN THERAPY Routine 03/27/2023 8:00 PM [employer] OPERATOR GLUCOSE POCT, B Routine 03/27/2023 5:12 PM [employer] OPERATOR GLUCOSE POCT, B Routine 03/27/2023 12:23 PM [employer] OPERATOR CBC WITH DIFFERENTIAL, B Routine 03/27/2023 9:28 AM [employer] OPERATOR BASIC METABOLIC PANEL, S/P Routine 03/27/2023 9:28 AM [employer] OPERATOR ADULT OXYGEN THERAPY Routine 03/27/2023 8:00 AM [employer] OPERATOR GLUCOSE POCT, B Routine 03/27/2023 7:29 AM [employer] OPERATOR GLUCOSE POCT, B Routine 03/26/2023 9:23 PM [employer] OPERATOR ADULT OXYGEN THERAPY Routine 03/26/2023 8:00 PM [employer] OPERATOR GLUCOSE POCT, B Routine 03/26/2023 5:13 PM [employer] OPERATOR URINALYSIS WITH MICROSCOPIC Routine 03/26/2023 12:57 PM [employer] OPERATOR BACTERIAL CULTURE, AEROBIC + SUSC, URINE Routine 03/26/2023 12:57 PM [employer] OPERATOR GLUCOSE POCT, B Routine 03/26/2023 12:11 PM [employer] OPERATOR ADULT OXYGEN THERAPY Routine 03/26/2023 8:00 AM [employer] OPERATOR GLUCOSE POCT, B Routine 03/26/2023 7:14 AM [employer] OPERATOR HEMOGLOBIN, B Routine 03/26/2023 6:19 AM [employer] OPERATOR GLUCOSE POCT, B Routine 03/25/2023 9:49 PM [employer] OPERATOR ADULT OXYGEN THERAPY Routine 03/25/2023 8:00 PM [employer] OPERATOR GLUCOSE POCT, B Routine 03/25/2023 5:11 PM [employer] OPERATOR GLUCOSE POCT, B Routine 03/25/2023 12:25 PM [employer] OPERATOR ADULT OXYGEN THERAPY Routine 03/25/2023 8:02 AM [employer] OPERATOR GLUCOSE POCT, B Routine 03/25/2023 7:23 AM [employer] OPERATOR GLUCOSE POCT, B Routine 03/25/2023 1:22 AM [employer] OPERATOR GLUCOSE POCT, B Routine 03/24/2023 9:29 PM [employer] OPERATOR ADULT OXYGEN THERAPY Routine 03/24/2023 8:00 PM [employer] OPERATOR GLUCOSE POCT, B Routine 03/24/2023 5:00 PM [employer] OPERATOR GLUCOSE POCT, B Routine 03/24/2023 12:18 PM [employer] OPERATOR ADULT OXYGEN THERAPY Routine 03/24/2023 8:01 AM [employer] OPERATOR GLUCOSE POCT, B Routine 03/24/2023 7:13 AM [employer] OPERATOR BASIC METABOLIC PANEL (BMP), POCT, B Routine 03/24/2023 6:26 AM [employer] OPERATOR MORPHOLOGY EVALUATION Routine 03/24/2023 5:58 AM [employer] OPERATOR BASIC METABOLIC PANEL, S/P Routine 03/24/2023 5:58 AM [employer] OPERATOR CBC WITH DIFFERENTIAL, B Routine 03/24/2023 5:58 AM [employer] OPERATOR GLUCOSE POCT, B Routine 03/23/2023 8:28 PM [employer] OPERATOR ADULT OXYGEN THERAPY Routine 03/23/2023 8:01 PM [employer] OPERATOR GLUCOSE POCT, B Routine 03/23/2023 5:14 PM [employer] OPERATOR GLUCOSE POCT, B Routine 03/23/2023 12:18 PM [employer] OPERATOR ADULT OXYGEN THERAPY Routine 03/23/2023 8:02 AM [employer] OPERATOR GLUCOSE POCT, B Routine 03/23/2023 7:20 AM [employer] OPERATOR GLUCOSE POCT, B Routine 03/22/2023 8:35 PM [employer] OPERATOR ADULT OXYGEN THERAPY Routine 03/22/2023 8:01 PM [employer] OPERATOR GLUCOSE POCT, B Routine 03/22/2023 5:17 PM [employer] OPERATOR GLUCOSE POCT, B Routine 03/22/2023 12:08 PM [employer] OPERATOR HEMOGLOBIN, B Routine 03/22/2023 8:20 AM [employer] OPERATOR ADULT OXYGEN THERAPY Routine 03/22/2023 8:01 AM [employer] OPERATOR GLUCOSE POCT, B Routine 03/22/2023 7:23 AM [employer] OPERATOR BASIC METABOLIC PANEL, S/P Routine 03/22/2023 5:44 AM [employer] OPERATOR GLUCOSE POCT, B Routine 03/21/2023 8:24 PM [employer] OPERATOR ADULT OXYGEN THERAPY Routine 03/21/2023 8:00 PM [employer] OPERATOR GLUCOSE POCT, B Routine 03/21/2023 5:47 PM [employer] OPERATOR GLUCOSE POCT, B Routine 03/21/2023 5:11 PM [employer] OPERATOR TRANSFUSE RED BLOOD CELLS Routine 03/21/2023 3:40 PM [employer] OPERATOR PREPARE RED BLOOD CELLS Routine 03/21/20 12:29 PM [employer] OPERATOR TESTING LOCATION Routine 03/21/2023 12:29 PM [employer] OPERATOR TYPE AND SCREEN Routine 03/21/2023 12:29 PM [employer] OPERATOR GLUCOSE POCT, B Routine 03/21/2023 12:00 PM [employer] OPERATOR ADULT OXYGEN THERAPY Routine 03/21/2023 8:01 AM [employer] OPERATOR GLUCOSE POCT, B Routine 03/21/2023 7:19 AM [employer] OPERATOR MORPHOLOGY EVALUATION Routine 03/21/2023 6:09 AM [employer] OPERATOR CBC WITH DIFFERENTIAL, B Routine 03/21/2023 6:09 AM [employer] OPERATOR ALBUMIN, S/P Routine 03/21/2023 6:09 AM [employer] OPERATOR BASIC METABOLIC PANEL, S/P Routine 03/21/2023 6:09 AM [employer] OPERATOR PREALBUMIN (PAB), S Routine 03/21/2023 6:09 AM [employer] OPERATOR GLUCOSE POCT, B Routine 03/20/2023 9:14 PM [employer] OPERATOR ADULT OXYGEN THERAPY Routine 03/20/2023 8:00 PM [employer] OPERATOR GLUCOSE POCT, B Routine 03/20/2023 5:04 PM [employer] OPERATOR GLUCOSE POCT, B Routine 03/20/2023 12:20 PM [employer] OPERATOR ADULT OXYGEN THERAPY Routine 03/20/2023 8:00 AM [employer] OPERATOR GLUCOSE POCT, B Routine 03/20/2023 7:18 AM [employer] OPERATOR GLUCOSE POCT, B Routine 03/20/2023 2:05 AM [employer] OPERATOR GLUCOSE POCT, B Routine 03/19/2023 8:51 PM [employer] OPERATOR ADULT OXYGEN THERAPY Routine 03/19/2023 8:00 PM [employer] OPERATOR GLUCOSE POCT, B Routine 03/19/2023 5:01 PM [employer] OPERATOR GLUCOSE POCT, B Routine 03/19/2023 12:27 PM [employer] OPERATOR ADULT OXYGEN THERAPY Routine 03/19/2023 8:01 AM [employer] OPERATOR GLUCOSE POCT, B Routine 03/19/2023 7:23 AM [employer] OPERATOR GLUCOSE POCT, B Routine 03/18/2023 8:38 PM [employer] OPERATOR ADULT OXYGEN THERAPY Routine 03/18/2023 8:00 PM [employer] OPERATOR GLUCOSE POCT, B Routine 03/18/2023 5:13 PM [employer] OPERATOR GLUCOSE POCT, B Routine 03/18/2023 12:20 PM [employer] OPERATOR ADULT OXYGEN THERAPY Routine 03/18/2023 8:01 AM [employer] OPERATOR GLUCOSE POCT, B Routine 03/18/2023 7:04 AM [employer] OPERATOR MORPHOLOGY EVALUATION Routine 03/18/2023 5:52 AM [employer] OPERATOR CBC WITH DIFFERENTIAL, B Routine 03/18/2023 5:52 AM [employer] OPERATOR GLUCOSE POCT, B Routine 03/17/2023 8:53 PM [employer] OPERATOR ADULT OXYGEN THERAPY Routine 03/17/2023 8:01 PM [employer] OPERATOR GLUCOSE POCT, B Routine 03/17/2023 5:12 PM [employer] OPERATOR GLUCOSE POCT, B Routine 03/17/2023 12:24 PM [employer] OPERATOR ADULT OXYGEN THERAPY Routine 03/17/2023 8:02 AM [employer] OPERATOR GLUCOSE POCT, B Routine 03/17/2023 7:04 AM [employer] OPERATOR GLUCOSE POCT, B Routine 03/16/2023 8:35 PM [employer] OPERATOR ADULT OXYGEN THERAPY Routine 03/16/2023 8:01 PM [employer] OPERATOR GLUCOSE POCT, B Routine 03/16/2023 5:16 PM [employer] OPERATOR GLUCOSE POCT, B Routine 03/16/2023 12:06 PM [employer] OPERATOR ADULT OXYGEN THERAPY Routine 03/16/2023 8:01 AM [employer] OPERATOR GLUCOSE POCT, B Routine 03/16/2023 7:08 AM [employer] OPERATOR GLUCOSE POCT, B Routine 03/15/2023 8:04 PM [employer] OPERATOR ADULT OXYGEN THERAPY Routine 03/15/2023 8:01 PM [employer] OPERATOR GLUCOSE POCT, B Routine 03/15/2023 5:12 PM [employer] OPERATOR GLUCOSE POCT, B Routine 03/15/2023 12:18 PM [employer] OPERATOR ADULT OXYGEN THERAPY Routine 03/15/2023 8:01 AM [employer] OPERATOR GLUCOSE POCT, B Routine 03/15/2023 7:36 AM [employer] OPERATOR GLUCOSE POCT, B Routine 03/14/2023 8:31 PM [employer] OPERATOR ADULT OXYGEN THERAPY Routine 03/14/2023 8:01 PM [employer] OPERATOR GLUCOSE POCT, B Routine 03/14/2023 5:12 PM [employer] OPERATOR GLUCOSE POCT, B Routine 03/14/2023 12:29 PM [employer] OPERATOR NURSING IMAGE EXAM Routine 03/14/2023 11:50 AM [employer] OPERATOR ADULT OXYGEN THERAPY Routine 03/14/2023 8:01 AM [employer] OPERATOR BASIC METABOLIC PANEL, S/P Timed 03/14/2023 7:57 AM [employer] OPERATOR CBC WITH DIFFERENTIAL, B Timed 03/14/2023 7:57 AM [employer] OPERATOR GLUCOSE POCT, B Routine 03/14/2023 7:14 AM [employer] OPERATOR GLUCOSE POCT, B Routine 03/13/2023 8:55 PM [employer] OPERATOR ADULT OXYGEN THERAPY Routine 03/13/2023 8:00 PM [employer] OPERATOR GLUCOSE POCT, B Routine 03/13/2023 5:18 PM [employer] OPERATOR GLUCOSE POCT, B Routine 03/13/2023 12:08 PM [employer] OPERATOR ADULT OXYGEN THERAPY Routine 03/13/2023 8:00 AM [employer] OPERATOR GLUCOSE POCT, B Routine 03/13/2023 7:48 AM [employer] OPERATOR GLUCOSE POCT, B Routine 03/12/2023 8:34 PM [employer] OPERATOR ADULT OXYGEN THERAPY Routine 03/12/2023 8:00 PM [employer] OPERATOR GLUCOSE POCT, B Routine 03/12/2023 5:12 PM [employer] OPERATOR GLUCOSE POCT, B Routine 03/12/2023 11:58 AM [employer] OPERATOR ADULT OXYGEN THERAPY Routine 03/12/2023 8:01 AM [employer] OPERATOR GLUCOSE POCT, B Routine 03/12/2023 6:57 AM [employer] OPERATOR GLUCOSE POCT, B Routine 03/11/2023 8:15 PM [employer] OPERATOR ADULT OXYGEN THERAPY Routine 03/11/2023 8:01 PM [employer] OPERATOR GLUCOSE POCT, B Routine 03/11/2023 5:02 PM [employer] OPERATOR GLUCOSE POCT, B Routine 03/11/2023 2:41 PM [employer] OPERATOR GLUCOSE POCT, B Routine 03/11/2023 12:22 PM [employer] OPERATOR ADULT OXYGEN THERAPY Routine 03/11/2023 8:01 AM [employer] OPERATOR GLUCOSE POCT, B Routine 03/11/2023 7:49 AM [employer] OPERATOR GLUCOSE POCT, B Routine 03/11/2023 2:05 AM [employer] OPERATOR GLUCOSE POCT, B Routine 03/10/2023 9:12 PM [employer] OPERATOR GLUCOSE POCT, B Routine 03/10/2023 8:06 PM [employer] OPERATOR ADULT OXYGEN THERAPY Routine 03/10/2023 8:01 PM [employer] CH[employer] OPERATOR GLUCOSE POCT, B Routine 03/10/2023 7:19 PM [employer] CH[employer] OPERATOR GLUCOSE POCT, B Routine 03/10/2023 7:02 PM LI[employer] CH[employer]INE OPERATOR GLUCOSE POCT, B Routine 03/10/2023 6:43 PM [employer] CH[employer]INE OPERATOR GLUCOSE POCT, B Routine 03/10/2023 6:13 PM [employer] OPERATOR GLUCOSE POCT, B Routine 03/10/2023 5:57 PM [employer] CH[employer] OPERATOR GLUCOSE POCT, B Routine 03/10/2023 5:29 PM LI[employer] CH[employer]INE OPERATOR GLUCOSE POCT, B Routine 03/10/2023 5:06 PM [employer] CH[employer]INE OPERATOR GLUCOSE POCT, B Routine 03/10/2023 11:59 AM LI[employer] CH[employer]INE OPERATOR GLUCOSE POCT, B Routine 03/10/2023 8:15 AM [employer] OPERATOR ADULT OXYGEN THERAPY Routine 03/10/2023 8:02 AM [employer] OPERATOR GLUCOSE POCT, B Routine 03/10/2023 7:21 AM [employer]INE OPERATOR GLUCOSE POCT, B Routine 03/09/2023 9:10 PM [employer] OPERATOR ADULT OXYGEN THERAPY Routine 03/09/2023 8:01 PM [employer] OPERATOR GLUCOSE POCT, B Routine 03/09/2023 5:14 PM [employer] OPERATOR GLUCOSE POCT, B Routine 03/09/2023 12:38 PM [employer] OPERATOR ADULT OXYGEN THERAPY Routine 03/09/2023 8:02 AM [employer] OPERATOR GLUCOSE POCT, B Routine 03/09/2023 7:17 AM [employer] OPERATOR MORPHOLOGY EVALUATION Routine 03/09/2023 6:00 AM [employer] OPERATOR CBC WITH DIFFERENTIAL, B Routine 03/09/2023 6:00 AM [employer] OPERATOR BASIC METABOLIC PANEL, S/P Routine 03/09/2023 6:00 AM [employer] OPERATOR GLUCOSE POCT, B Routine 03/08/2023 9:00 PM [employer] OPERATOR ADULT OXYGEN THERAPY Routine 03/08/2023 8:02 PM [employer] OPERATOR GLUCOSE POCT, B Routine 03/08/2023 4:50 PM [employer] OPERATOR EMERGENCY DEPARTMENT IMAGE EXAM Routine 03/08/2023 2:50 PM [employer] OPERATOR ADULT OXYGEN THERAPY Routine 03/08/2023 1:59 PM [employer] OPERATOR ADULT OXYGEN THERAPY Routine 03/08/2023 1:59 PM [employer] OPERATOR GLUCOSE POCT, B Routine 03/08/2023 7:50 AM [employer] OPERATOR GLUCOSE POCT, B Routine 03/07/2023 8:11 PM LI[employer] OPERATOR GLUCOSE POCT, B Routine 03/07/2023 4:51 PM [employer] CH[employer] OPERATOR GLUCOSE POCT, B Routine 03/07/2023 1:03 PM [employer] OPERATOR GLUCOSE POCT, B Routine 03/07/2023 8:09 AM [employer] OPERATOR HEMOGLOBIN, B Routine 03/07/2023 7:32 AM LI[employer] CH[employer]INE OPERATOR GLUCOSE POCT, B Routine 03/06/2023 10:07 PM [employer] OPERATOR GLUCOSE POCT, B Routine 03/06/2023 6:12 PM [employer] OPERATOR GLUCOSE POCT, B Routine 03/06/2023 5:08 PM [employer] OPERATOR GLUCOSE POCT, B Routine 03/06/2023 12:33 PM [employer] OPERATOR GLUCOSE POCT, B Routine 03/06/2023 7:52 AM [employer] OPERATOR GLUCOSE POCT, B Routine 03/05/2023 10:37 PM [employer] OPERATOR GLUCOSE POCT, B Routine 03/05/2023 7:35 PM [employer] OPERATOR GLUCOSE POCT, B Routine 03/05/2023 3:27 PM [employer] OPERATOR GLUCOSE POCT, B Routine 03/05/2023 11:59 AM [employer] OPERATOR HEMOGLOBIN, B Routine 03/05/2023 7:39 AM [employer] OPERATOR GLUCOSE POCT, B Routine 03/05/2023 7:18 AM [employer] OPERATOR GLUCOSE POCT, B Routine 03/04/2023 10:34 PM [employer] OPERATOR GLUCOSE POCT, B Routine 03/04/2023 6:31 PM [employer] OPERATOR GLUCOSE POCT, B Routine 03/04/2023 11:29 AM [employer] OPERATOR GLUCOSE POCT, B Routine 03/04/2023 8:20 AM [employer] OPERATOR HEMOGLOBIN, B Routine 03/04/2023 6:41 AM [employer] OPERATOR GLUCOSE POCT, B Routine 03/03/2023 8:18 PM [employer] OPERATOR GLUCOSE POCT, B Routine 03/03/2023 6:32 PM [employer] OPERATOR GLUCOSE POCT, B Routine 03/03/2023 12:37 PM [employer] OPERATOR GLUCOSE POCT, B Routine 03/03/2023 9:11 AM [employer] OPERATOR HEMOGLOBIN, B Routine 03/03/2023 6:48 AM [employer] OPERATOR GLUCOSE POCT, B Routine 03/02/2023 9:24 PM [employer] OPERATOR GLUCOSE POCT, B Routine 03/02/2023 6:13 PM [employer] OPERATOR GLUCOSE POCT, B Routine 03/02/2023 1:30 PM [employer] OPERATOR GLUCOSE POCT, B Routine 03/02/2023 7:48 AM [employer] OPERATOR CBC WITH DIFFERENTIAL, B Routine 03/02/2023 6:11 AM [employer] OPERATOR BASIC METABOLIC PANEL, S/P Routine 03/02/2023 6:11 AM [employer] OPERATOR GLUCOSE POCT, B Routine 03/01/2023 9:33 PM [employer] OPERATOR GLUCOSE POCT, B Routine 03/01/2023 6:03 PM [employer] OPERATOR GLUCOSE POCT, B Routine 03/01/2023 12:43 PM [employer] OPERATOR GLUCOSE POCT, B Routine 03/01/2023 8:52 AM [employer] OPERATOR CBC WITH DIFFERENTIAL, B Routine 03/01/2023 7:01 AM [employer] OPERATOR BASIC METABOLIC PANEL, S/P Routine 03/01/2023 7:01 AM [employer] OPERATOR GLUCOSE POCT, B Routine 02/28/2023 11:22 PM [employer] OPERATOR GLUCOSE POCT, B Routine 02/28/2023 5:54 PM [employer] OPERATOR GLUCOSE POCT, B Routine 02/28/2023 1:01 PM [employer] OPERATOR GLUCOSE POCT, B Routine 02/28/2023 8:33 AM [employer] OPERATOR BASIC METABOLIC PANEL, S/P Routine 02/28/2023 7:26 AM [employer] OPERATOR CBC WITH DIFFERENTIAL, B Routine 02/28/2023 7:26 AM [employer] OPERATOR GLUCOSE POCT, B Routine 02/27/2023 10:57 PM [employer] OPERATOR GLUCOSE POCT, B Routine 02/27/2023 6:19 PM [employer] OPERATOR GLUCOSE POCT, B Routine 02/27/2023 11:29 AM [employer] OPERATOR GLUCOSE POCT, B Routine 02/27/2023 7:45 AM [employer] OPERATOR BASIC METABOLIC PANEL, S/P Routine 02/27/2023 6:04 AM [employer] OPERATOR CBC WITH DIFFERENTIAL, B Routine 02/27/2023 6:04 AM [employer] OPERATOR GLUCOSE POCT, B Routine 02/26/2023 10:21 PM [employer] OPERATOR GLUCOSE POCT, B Routine 02/26/2023 5:13 PM [employer] OPERATOR GLUCOSE POCT, B Routine 02/26/2023 11:50 AM [employer] OPERATOR GLUCOSE POCT, B Routine 02/26/2023 7:12 AM [employer] OPERATOR CBC WITH DIFFERENTIAL, B Routine 02/26/2023 5:39 AM [employer] OPERATOR BASIC METABOLIC PANEL, S/P Routine 02/26/2023 5:39 AM [employer] OPERATOR GLUCOSE POCT, B Routine 02/25/2023 9:11 PM [employer] OPERATOR GLUCOSE POCT, B Routine 02/25/2023 5:17 PM [employer] OPERATOR GLUCOSE POCT, B Routine 02/25/2023 11:52 AM [employer] OPERATOR FAMILY MEDICINE IMAGE EXAM Routine 02/25/2023 11:08 AM [employer] OPERATOR IR LUMBAR SPINE FACET INJECTION RIGHT RAD - Routine (most inpatients and all outpatients) 02/25/2023 10:48 AM [employer] OPERATOR GLUCOSE POCT, B Routine 02/25/2023 8:09 AM [employer] OPERATOR HEMOGLOBIN, B Routine 02/25/2023 7:21 AM [employer] OPERATOR GLUCOSE POCT, B Routine 02/24/2023 8:40 PM [employer] OPERATOR GLUCOSE POCT, B Routine 02/24/2023 5:28 PM [employer] OPERATOR GLUCOSE POCT, B Routine 02/24/2023 12:12 PM [employer] OPERATOR GLUCOSE POCT, B Routine 02/24/2023 8:18 AM [employer] OPERATOR ELECTROLYTE (CHEM 4) PANEL, S/P Routine 02/24/2023 5:44 AM [employer] OPERATOR CBC WITHOUT DIFFERENTIAL, B Routine 02/24/2023 5:44 AM [employer] OPERATOR GLUCOSE POCT, B Routine 02/23/2023 10:50 PM [employer] OPERATOR VANCOMYCIN, TROUGH, S Timed 02/23/2023 6:28 PM [employer] OPERATOR GLUCOSE POCT, B Routine 02/23/2023 6:17 PM [employer] OPERATOR GLUCOSE POCT, B Routine 02/23/2023 5:30 PM [employer] OPERATOR GLUCOSE POCT, B Routine 02/23/2023 12:15 PM [employer] OPERATOR GLUCOSE POCT, B Routine 02/23/2023 8:50 AM [employer] OPERATOR CBC WITH DIFFERENTIAL, B Routine 02/23/2023 7:04 AM [employer] OPERATOR BASIC METABOLIC PANEL, S/P Routine 02/23/2023 7:04 AM [employer] OPERATOR GLUCOSE POCT, B Routine 02/22/2023 10:04 PM [employer] OPERATOR GLUCOSE POCT, B Routine 02/22/2023 6:02 PM [employer] OPERATOR BACTERIA / RONDA CULTURE, BLOOD Routine 02/22/2023 4:47 PM LIQUID CHLORINE OPERATOR BACTERIA / RONDA CULTURE, BLOOD Routine 02/22/2023 4:40 PM LIQUID CHLORINE OPERATOR GLUCOSE POCT, B Routine 02/22/2023 12:54 PM LIQUID CHLORINE OPERATOR PET CT SKULL TO THIGH RAD - Routine (most inpatients and all outpatients) 02/22/2023 12:21 PM LIQUID CHLORINE OPERATOR GLUCOSE POCT, B Routine 02/22/2023 7:25 AM LIQUID CHLORINE OPERATOR BASIC METABOLIC PANEL, S/P Routine 02/22/2023 5:06 AM LIQUID CHLORINE OPERATOR CBC WITHOUT DIFFERENTIAL, B Routine 02/22/2023 5:06 AM LIQUID CHLORINE OPERATOR HEMOGLOBIN, B STAT 02/22/2023 12:13 AM LIQUID CHLORINE OPERATOR GLUCOSE POCT, B Routine 02/21/2023 9:19 PM LIQUID CHLORINE OPERATOR SPSMA RESULT STAT 02/21/2023 4:34 PM LIQUID CHLORINE OPERATOR HEMOGLOBIN, B STAT 02/21/2023 4:34 PM LIQUID CHLORINE OPERATOR HEMOGLOBIN, B STAT 02/21/2023 4:34 PM LIQUID CHLORINE OPERATOR GLUCOSE POCT, B Routine 02/21/2023 4:27 PM LIQUID CHLORINE OPERATOR MR CERVICAL SPINE WITHOUT IV CONTRAST RAD - Routine (most inpatients and all outpatients) 02/21/2023 3:05 PM LIQUID CHLORINE OPERATOR CT ABDOMEN PELVIS ANGIOGRAM WITH IV CONTRAST RAD - Routine (most inpatients and all outpatients) 02/21/2023 12:26 PM LIQUID CHLORINE OPERATOR CT LUMBAR SPINE WITH IV CONTRAST RAD - Routine (most inpatients and all outpatients) 02/21/2023 12:26 PM LIQUID CHLORINE OPERATOR GLUCOSE POCT, B Routine 02/21/2023 11:33 AM LIQUID CHLORINE OPERATOR BILIRUBIN DIRECT, S/P Routine 02/21/2023 9:27 AM LIQUID CHLORINE OPERATOR BILIRUBIN, TOT, S/P Routine 02/21/2023 9:27 AM LIQUID CHLORINE OPERATOR LACTATE DEHYDROGENASE (LD), S Routine 02/21/2023 9:27 AM LIQUID CHLORINE OPERATOR HAPTOGLOBIN, S Routine 02/21/2023 9:27 AM LIQUID CHLORINE OPERATOR GLUCOSE POCT, B Routine 02/21/2023 7:55 AM LIQUID CHLORINE OPERATOR PREPARE RED BLOOD CELLS Routine 02/22/20 7:35 AM LIQUID CHLORINE OPERATOR TYPE AND SCREEN STAT 02/21/2023 7:35 AM LIQUID CHLORINE OPERATOR HEMOGLOBIN, B STAT 02/21/2023 7:35 AM LIQUID CHLORINE OPERATOR BASIC METABOLIC PANEL, S/P Routine 02/21/2023 1:32 AM LIQUID CHLORINE OPERATOR CBC WITHOUT DIFFERENTIAL, B Routine 02/21/2023 1:32 AM LIQUID CHLORINE OPERATOR BACTERIA / RONDA CULTURE, BLOOD Routine 02/21/2023 1:32 AM LIQUID CHLORINE OPERATOR BACTERIA / RONDA CULTURE, BLOOD Routine 02/21/2023 1:32 AM LIQUID CHLORINE OPERATOR BACTERIAL CULTURE, AEROBIC + SUSC, URINE Routine 02/20/2023 10:50 PM LIQUID CHLORINE OPERATOR GLUCOSE POCT, B Routine 02/20/2023 8:46 PM LIQUID CHLORINE OPERATOR DX LUMBAR SPINE 2-3 VIEWS RAD - Semiurgent (Fast; most ED patients; some inpatients) 02/20/2023 6:25 PM LIQUID CHLORINE OPERATOR GLUCOSE POCT, B Routine 02/20/2023 5:34 PM LIQUID CHLORINE OPERATOR INFLUENZA A, B, RSV, PCR, RAPID, V Routine 02/20/2023 4:11 PM LIQUID CHLORINE OPERATOR SARS CORONAVIRUS 2, PCR RAPID, V Routine 02/20/2023 4:11 PM LIQUID CHLORINE OPERATOR GLUCOSE POCT, B Routine 02/20/2023 11:48 AM LIQUID CHLORINE OPERATOR MR LUMBAR SPINE WITHOUT IV CONTRAST RAD - Routine (most inpatients and all outpatients) 02/20/2023 10:42 AM LIQUID CHLORINE OPERATOR GLUCOSE POCT, B Routine 02/20/2023 8:01 AM LIQUID CHLORINE OPERATOR [facility] INTERNAL MEDICINE IMAGE EXAM Routine 02/20/2023 6:38 AM MST MICROSCOPIC MANUAL STAT 02/20/2023 6:05 AM LIQUID CHLORINE OPERATOR DIPSTICK, U STAT 02/20/2023 6:05 AM LIQUID CHLORINE OPERATOR PH, U STAT 02/20/2023 6:05 AM LIQUID CHLORINE OPERATOR OSMOLALITY, U STAT 02/20/2023 6:05 AM LIQUID CHLORINE OPERATOR URINALYSIS WITH MICROSCOPIC STAT 02/20/2023 6:05 AM LIQUID CHLORINE OPERATOR BACTERIAL CULTURE, AEROBIC + SUSC, URINE STAT 02/20/2023 6:05 AM LIQUID CHLORINE OPERATOR LACTATE, B/P STAT 02/20/2023 2:34 AM LIQUID CHLORINE OPERATOR C-REACTIVE PROTEIN (CRP), S/P STAT 02/20/2023 2:34 AM LIQUID CHLORINE OPERATOR THYROID-STIMULATING HORMONE-SENSITIVE (S-TSH) STAT 02/20/2023 2:34 AM LIQUID CHLORINE OPERATOR BASIC METABOLIC PANEL, S/P STAT 02/20/2023 2:34 AM LIQUID CHLORINE OPERATOR CBC WITH DIFFERENTIAL, B STAT 02/20/2023 2:34 AM LIQUID CHLORINE OPERATOR FERRITIN, S Routine 02/18/2023 7:34 AM CDT [...] - HEMODYNAMIC STUDY Routine 04/05/2022 8:33 AM LIQUID CHLORINE OPERATOR 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 Lower Extremity Non-Pressure 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) LOWER EXTREMITY ARTERIAL - STANDARD PROTOCOL Routine 04/05/2022 8:27 AM LIQUID CHLORINE OPERATOR 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 Lower Extremity Non-Pressure 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) ECG AMBULATORY REAL TIME CARDIAC MONITORING Routine 01/27/2022 7:31 AM CDT Atrial Fibrillation Unspecified ECG Routine 01/07/2022 11:21 AM CDT Atrial Fibrillation Unspecified HOLTER MONITOR - IN 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 Routine 01/05/2022 11:52 AM CDT Atrial Fibrillation Unspecified DX CHEST AP OR PA AND LATERAL 2 VIEWS RAD - Routine (most inpatients and all outpatients) 01/05/2022 10:29 AM CDT Atrial Fibrillation Unspecified LA T4 FREE Routine 01/04/2022 11:12 AM CDT [...] OUTSIDE CT BODY Routine 04/15/2021 9:55 AM LIQUID CHLORINE OPERATOR LA CYSTOURETHROSCOPY Routine 03/03/2021 2:05 PM LIQUID CHLORINE OPERATOR Hematuria Pyuria Infection Urinary Tract Deficiency 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 DIPSTICK, U Routine 03/03/2021 11:43 AM LIQUID CHLORINE OPERATOR LA OSMOLALITY ASSAY URINE Routine 03/03/2021 11:43 AM LIQUID CHLORINE OPERATOR PH, RANDOM, U Routine 03/03/2021 11:43 AM LIQUID CHLORINE OPERATOR MICROSCOPIC MANUAL Routine 03/03/2021 11:43 AM LIQUID CHLORINE OPERATOR GRAM'S ST, U Routine 03/03/2021 11:43 AM LIQUID CHLORINE OPERATOR Hematuria Pyuria Infection Urinary Tract URINALYSIS WITH MICROSCOPIC Routine 03/03/2021 11:43 AM LIQUID CHLORINE OPERATOR Hematuria Pyuria Infection Urinary Tract URO UROFLOW Routine 03/03/2021 10:45 AM LIQUID CHLORINE OPERATOR Infection Urinary Tract Deficiency Urethral Sphincter Intrinsic DIPSTICK, U Routine 12/11/2020 1:01 PM CDT LA OSMOLALITY ASSAY URINE Routine 12/11/2020 1:01 PM [...] + SUSC, URINE Routine 05/07/2019 10:59 AM LIQUID CHLORINE OPERATOR Stent Ureteral Indwelling LA CYSTHRSCPY RMVL FB/STENT SMPL Routine 05/07/2019 10:30 AM LIQUID CHLORINE OPERATOR [facility] ABDOMEN PELVIS KIDNEY STONE QUANT WITHOUT IV CONTRAST RAD - Routine (most inpatients and all outpatients) 04/20/2019 1:00 PM LIQUID CHLORINE OPERATOR [facility] GLUCOSE POCT, B Routine 04/04/2019 3:39 PM LIQUID CHLORINE OPERATOR ADULT OXYGEN THERAPY Routine 04/04/2019 1:42 PM LIQUID CHLORINE OPERATOR FL FLUORO LESS THAN 1 HOUR RAD - Routine (most inpatients and all outpatients) 04/04/2019 1:34 PM LIQUID CHLORINE OPERATOR KIDNEY STONE ANALYSIS Routine 04/04/2019 1:26 PM LIQUID CHLORINE OPERATOR [facility] GLUCOSE POCT, B Routine 04/04/2019 12:43 PM LIQUID CHLORINE OPERATOR LDA ANE ENDOTRACHEAL AIRWAY Routine 04/04/2019 11:49 AM LIQUID CHLORINE OPERATOR URETEROSCOPY WITH LASER LITHOTRIPSY 04/04/2019 10:57 AM LIQUID CHLORINE OPERATOR [facility] Case Notes PROGRAM DIR 0848 GLUCOSE POCT, B Routine 04/04/2019 10:45 AM LIQUID CHLORINE OPERATOR GLUCOSE POCT, B Routine 03/15/2019 10:45 AM LIQUID CHLORINE OPERATOR GLUCOSE POCT, B Routine 03/15/2019 7:43 AM LIQUID CHLORINE OPERATOR GLUCOSE POCT, B Routine 03/15/2019 1:43 AM LIQUID CHLORINE OPERATOR GLUCOSE POCT, B Routine 03/14/2019 10:03 PM LIQUID CHLORINE OPERATOR GLUCOSE POCT, B Routine 03/14/2019 6:51 PM LIQUID CHLORINE OPERATOR GLUCOSE POCT, B Routine 03/14/2019 10:31 AM LIQUID CHLORINE OPERATOR ADULT OXYGEN THERAPY Routine 03/14/2019 8:00 AM LIQUID CHLORINE OPERATOR GLUCOSE POCT, B Routine 03/14/2019 1:03 AM LIQUID CHLORINE OPERATOR GLUCOSE POCT, B Routine 03/13/2019 9:53 PM LIQUID CHLORINE OPERATOR ADULT OXYGEN THERAPY Routine 03/13/2019 8:01 PM LIQUID CHLORINE OPERATOR GLUCOSE POCT, B Routine 03/13/2019 6:25 PM LIQUID CHLORINE OPERATOR GLUCOSE POCT, B Routine 03/13/2019 1:27 PM LIQUID CHLORINE OPERATOR ADULT OXYGEN THERAPY Routine 03/13/2019 8:01 AM LIQUID CHLORINE OPERATOR GLUCOSE POCT, B Routine 03/13/2019 8:01 AM LIQUID CHLORINE OPERATOR BASIC METABOLIC PANEL, S/P Routine 03/13/2019 2:47 AM LIQUID CHLORINE OPERATOR CBC WITHOUT DIFFERENTIAL, B Routine 03/13/2019 2:47 AM LIQUID CHLORINE OPERATOR GLUCOSE POCT, B Routine 03/12/2019 10:44 PM LIQUID CHLORINE OPERATOR ADULT OXYGEN THERAPY Routine 03/12/2019 8:01 PM LIQUID CHLORINE OPERATOR GLUCOSE POCT, B Routine 03/12/2019 5:00 PM LIQUID CHLORINE OPERATOR HEMOGLOBIN A1C, B Routine 03/12/2019 2:10 PM LIQUID CHLORINE OPERATOR GLUCOSE POCT, B Routine 03/12/2019 1:54 PM LIQUID CHLORINE OPERATOR FL FLUORO LESS THAN 1 HOUR RAD - Routine (most inpatients and all outpatients) 03/12/2019 1:11 PM LIQUID CHLORINE OPERATOR GLUCOSE POCT, B Routine 03/12/2019 1:05 PM LIQUID CHLORINE OPERATOR UROLOGY IMAGE EXAM Routine 03/12/2019 1:02 PM LIQUID CHLORINE OPERATOR LDA ANE ENDOTRACHEAL AIRWAY Routine 03/12/2019 12:27 PM LIQUID CHLORINE OPERATOR BACTERIAL CULTURE, AEROBIC + SUSC, URINE Routine 03/12/2019 12:25 PM LIQUID CHLORINE OPERATOR Nephrolithiasis FUNGAL CULTURE, ROUTINE Routine 03/12/20 19 12:25 PM LIQUID CHLORINE OPERATOR Nephrolithiasis RETROGRADE PYELOGRAM 03/12/2019 11:32 AM LIQUID CHLORINE OPERATOR Nephrolithiasis CYSTOURETHROSCOPY WITH PLACEMENT URETERAL STENT 03/12/2019 11:32 AM LIQUID CHLORINE OPERATOR Nephrolithiasis ECG STAT 03/12/2019 11:15 AM LIQUID CHLORINE OPERATOR GLUCOSE POCT, B Routine 03/12/2019 11:13 AM LIQUID CHLORINE OPERATOR GLUCOSE POCT, B Routine 03/12/2019 8:49 AM LIQUID CHLORINE OPERATOR BACTERIAL CULTURE, AEROBIC + SUSC, URINE Timed 03/12/2019 5:44 AM LIQUID CHLORINE OPERATOR BACTERIA / RONDA CULTURE, BLOOD Routine 03/12/2019 5:11 AM LIQUID CHLORINE OPERATOR BACTERIA / RONDA CULTURE, BLOOD Routine 03/12/2019 5:03 AM LIQUID CHLORINE OPERATOR MICROSCOPIC AUTOMATED Timed 03/12/2019 4:36 AM LIQUID CHLORINE OPERATOR KETONES,QL(U) Timed 03/12/2019 4:36 AM LIQUID CHLORINE OPERATOR URINALYSIS WITH MICROSCOPIC Timed 03/12/2019 4:36 AM LIQUID CHLORINE OPERATOR BASIC METABOLIC PANEL, S/P STAT 03/12/2019 3:58 AM LIQUID CHLORINE OPERATOR CBC WITH DIFFERENTIAL, B STAT 03/12/2019 3:58 AM LIQUID CHLORINE OPERATOR GLUCOSE POCT, B Routine 03/12/2019 3:50 AM LIQUID CHLORINE OPERATOR ADULT OXYGEN THERAPY Routine 03/12/2019 3:31 AM LIQUID CHLORINE OPERATOR ADULT OXYGEN THERAPY Routine 03/12/2019 3:31 AM LIQUID CHLORINE OPERATOR OUTSIDE CT BODY Routine 03/11/2019 11:15 PM LIQUID CHLORINE OPERATOR CT ABDOMEN PELVIS WITHOUT IV CONTRAST RAD [...] UROLOGY IMAGE EXAM Routine 04/04/2015 1:57 PM LIQUID CHLORINE OPERATOR US ABDOMEN COMPLETE Routine 04/04/2015 9:07 AM LIQUID CHLORINE OPERATOR BICARBONATE, B/S/P Routine 04/04/2015 7:53 AM LIQUID CHLORINE OPERATOR CREATININE WITH EGFR, S/P Routine 04/04/2015 7:53 AM LIQUID CHLORINE OPERATOR SODIUM, S/P Routine 04/04/2015 7:53 AM LIQUID CHLORINE OPERATOR CALCIUM, TOT, S/P Routine 04/04/2015 7:53 AM LIQUID CHLORINE OPERATOR POTASSIUM, S/P Routine 04/04/2015 7:53 AM LIQUID CHLORINE OPERATOR MAGNESIUM, S Routine 04/04/2015 7:53 AM LIQUID CHLORINE OPERATOR URIC ACID, S/P Routine 04/04/2015 7:53 AM LIQUID CHLORINE OPERATOR PHOSPHORUS (INORGANIC), S Routine 04/04/2015 7:53 AM LIQUID CHLORINE OPERATOR CREATININE WITH EGFR, S/P Routine 01/31/2015 10:15 [...] HOME OVERNIGHT OXIMETRY Routine 05/27/2014 10:29 PM LIQUID CHLORINE OPERATOR ALBUMIN, RANDOM, U Routine 05/27/2014 1:19 PM LIQUID CHLORINE OPERATOR CREATININE WITH EGFR, S/P Routine 05/27/2014 12:54 PM LIQUID CHLORINE OPERATOR GLUCOSE, RANDOM, S/P Routine 05/27/2014 12:54 PM LIQUID CHLORINE OPERATOR HEMOGLOBIN A1C, B Routine 05/27/2014 12:54 PM LIQUID CHLORINE OPERATOR OUTSIDE CT BODY Routine 05/06/2014 1:13 PM LIQUID CHLORINE OPERATOR PULMONARY FUNCTION TESTS Routine 03/30/2002 9:39 AM LIQUID CHLORINE OPERATOR CT HEAD WITH IV CONTRAST Routine 10/30/2001 [...] Injection Right (08/08/2023 2:08 PM CDT) Impressions [id number] - 08/08/2023 2:43 PM CDT Fluoroscopically-guided transforaminal epidural steroid injection. NR Narrative [id number] - 08/08/2023 2:43 PM CDT EXAM: FL [...] felt to best approximate that of an [id number]. Prior right L4 injection did not provide [...] IMG FLUO ROSCOPY PROCEDURES Performing Organization Address [facility]/ZIP Co de Phone Number [id number] NA * Horizontal Systems (06/01/2023 12:00 AM LIQUID CHLORINE OPERATOR) Test Name [facility] Custom Panel 06/09/2023 10:53 AM LIQUID CHLORINE OPERATOR INVC Result SEE COMMENT 06/09/2023 11:10 AM LIQUID CHLORINE OPERATOR INVC Comment: For final report, select Lab-Send Out Lab Results hyperlink below. 06/01/2023 06/09/2023 10: 53 AM LIQUID CHLORINE OPERATOR Ean Huizar M.D. LAB [employer] ORDERABLE S Performing Organization Address [facility] Co de Phone Number Molecular [facility] [address] [place] [phone] [facility] Molecular Detection [address] [place] [phone] * [id number] Metabolon Panel - Miscellaneous Test (06/01/2023 12:00 AM LIQUID CHLORINE OPERATOR) Test Name [facility] Custom Panel 06/09/2023 10:56 AM LIQUID CHLORINE OPERATOR HLS Saliva (Mouth) 06/01/2023 06/09/2023 10:53 AM LIQUID CHLORINE OPERATOR Ean Huizar M.D. LAB [employer] ORDERABLE S Performing Organization Address City/[facility] Co de Phone Number [facility] [address] [place] [address], [facility] HLS [facility] [place] [facility] [place] [address] [place] [address] * (ABNORMAL) Glucose, POCT (05/16/2023 9:35 AM LIQUID CHLORINE OPERATOR) Only the most recent of452 resultswithin the time period is included. Glucose, POCT, B 151(H) 70 - 140 mg/dL 05/16/2023 10:04 AM LIQUID CHLORINE OPERATOR PCDE Site Capillary 05/16/2023 10:04 AM LIQUID CHLORINE OPERATOR PCDE Last Intake > 4 hours 05/16/2023 10:04 AM LIQUID CHLORINE OPERATOR PCDE Blood 05/16/2023 9:35 AM LIQUID CHLORINE OPERATOR 05/16/2023 10:05 AM LIQUID CHLORINE OPERATOR Unknown Provider LAB POCT ORDERABLES- MANUAL Performing Organization Address City/[facility] Co de Phone Number [facility] [address] [place] [address], [facility] PCDE [facility] [place] P[facility] [address] [place] [address] * (ABNORMAL) SARS CoV-2 RNA, PCR Asymptomatic (05/15/2023 9:10 AM LIQUID CHLORINE OPERATOR) SARS CoV-2 RNA, PCR, Source Swab, Nasopharynx 05/15/2023 11:55 PM LIQUID CHLORINE OPERATOR SDS SARS CoV-2 RNA, PCR Detected(A) Undetected 05/15/2023 11:55 PM LIQUID CHLORINE OPERATOR SDS Comment: SARS-CoV-2 RNA present. ----ADDITIONAL INFORMATION---- This RT-PCR test has received Emergency Use Authorization (EUA) by the U.S. Food and Drug Administration and is used per computerized mill recorder's instructions. Performance characteristics were verified by [facility] in a manner consistent with CLIA requirements. Visit the CDC website: https://www.cdc.gov/coronavirus/ for the most recent guidelines on Coronavirus testing. Fact Sheet for Healthcare Providers: https://www.fda.gov/media/179208/download Fact Sheet for Patients: https://www.fda.gov/media/259223/download Swab (Nasopharynx) 05/15/2023 9:10 AM LIQUID CHLORINE OPERATOR 05/15/2023 12:03 PM LIQUID CHLORINE OPERATOR Bonny Swansno B.Ch., MJhon. LAB M ICROBIOLOGY - GENERAL ORDERABLES Performing Organization Address City/[facility]/ZIP Co de Phone Number [facility] [address] [place] [address] [facility] [address] ZAF[place] [address] [place] [address] * HIV-1/-2 Ag and Ab PS, Plasma (05/12/2023 5:44 PM LIQUID CHLORINE OPERATOR) Pathologist [facility] HIV-1/-2 Ag and Ab PS, P Negative Negative 05/12/2023 8:32 PM LIQUID CHLORINE OPERATOR [facility] Comment: Negative result does not rule out HIV infection. If exposure to HIV infection occurred <14 days ago, contact the laboratory to request addition of HIV-1/HIV-2 RNA Detection Patient Source, Plasma (HEP12). Blood (Blood, Venous) 05/12/2023 5:44 PM LIQUID CHLORINE OPERATOR 05/12/2023 7:49 PM LIQUID CHLORINE OPERATOR Bonny Swanson B.Ch., Lyle LAB M [facility] - BLOOD ORDERABLES Performing Organization Address [facility] de Phone Number [address] [place] [address] [place] [address] * HCV RNA Pt Source, Serum (05/12/2023 5:44 PM LIQUID CHLORINE OPERATOR) Pathologist [facility] HCV RNA Pt Source, S Undetected Undetected IU/mL 05/12/2023 11:11 PM LIQUID CHLORINE OPERATOR [facility] Comment: Result in log IU/mL is Undetected. ----ADDITIONAL INFORMATION---- The quantification range of this assay is 15 to 100,000,000 IU/mL (1.18 log to 8.00 log IU/mL). Testing was performed using the sagar HCV test ([employer] Blood (Blood, Venous) 05/12/2023 5:44 PM LIQUID CHLORINE OPERATOR 05/12/2023 7:53 PM LIQUID CHLORINE OPERATOR Bonny Swanson B.Ch., Lyle LAB M [facility] - BLOOD ORDERABLES Performing Organization Address [facility] Co de Phone Number [facility] [address] [place] [address] ZAF[place] [address] [place] [address] [place] [address] * HIV-1/HIV-2 Ab Rapid Pt Source (05/12/2023 5:44 PM LIQUID CHLORINE OPERATOR) HIV-1/HIV-2 Ab Rapid Pt Source, B Negative Negative 05/12/2023 6:19 PM LIQUID CHLORINE OPERATOR [facility] Blood (Blood, Venous) 05/12/2023 5:44 PM LIQUID CHLORINE OPERATOR 05/12/2023 5:49 PM LIQUID CHLORINE OPERATOR Bonny Swanson B.Ch., MMarleny LAB M ICROBIOLOGY - BLOOD ORDERABLES Performing Organization Address City/[facility]/ZIP Co de Phone Number [facility] [address] [place] [address], [facility] METH [facility] [place] [facility] [place] [address] [place] [address] * HBs Antigen Patient Source (05/12/2023 5:44 PM LIQUID CHLORINE OPERATOR) Pathologist [facility] HBs Antigen Patient Source, S Negative Negative 05/12/2023 9:55 PM LIQUID CHLORINE OPERATOR [facility] Blood (Blood, Venous) 05/12/2023 5:44 PM LIQUID CHLORINE OPERATOR 05/12/2023 7:49 PM LIQUID CHLORINE OPERATOR Bonny Swanson B.Ch., MMarleny LAB [facility] B[facility]OD ORDERABLES Performing Organization Address [facility] Co de Phone Number [facility] [address] [place] [address] [facility] [address] [place] [address] * [facility] Colorectal Cancer Panel, Next-Generation Sequencing, Tumor (05/12/2023 3:47 PM LIQUID CHLORINE OPERATOR) Pathologist [facility] Result Provided diagnosis: colorectal adenocarcinoma Microsatellite Instability (MSI) status: Stable (RODO) The following CLINICALLY RELEVANT VARIANTS were detected: Gene: APC DNA Change: c.4348C>T (Exon 16) Amino Acid Change: p.R1450* ([id number]*) Variant Allele Frequency: 33% Gene: APC DNA Change: c.2319del (Exon 16) Amino Acid Change: p.P895Bru*4 (Bsk337Qrpex*4) Variant Allele Frequency: 31.4% Gene: KRAS DNA Change: c.38G>A (Exon 2) Amino Acid Change: p.G13D (Bmr68Blv) Variant Allele Frequency: 55.6% The following VARIANT OF UNCERTAIN SIGNIFICANCE was detected: Gene: MSH6 DNA Change: c.2374C>G (Exon 4) Amino Acid Change: p.L792V ([id number]) Variant Allele Frequency: 16.4% No other reportable sequence variants were detected within the analyzed regions of the tested genes listed in the method description. 06/08/2023 1:38 PM LIQUID CHLORINE OPERATOR DTL Additional Information CLINICAL TRIALS Possible clinical trials of benefit for this patient can be found at the following sites: 1) ClinicalTrials.gov: www.clinicaltrials. gov/ct2/search/adva nced 2) [facility]: www.[facility]/resear ch/clinical-trials/ 3) [facility] [place]: www.cancer.gov/clin icaltrials/search REFERENCE TRANSCRIPTS Sequence variant nomenclature is based on the following RefSeq accession numbers (build GRCh37 (hg19)):APC [id number], KRAS [id number] and MSH6 [id number]. 06/08/2023 1:38 PM LIQUID CHLORINE OPERATOR DTL Specimen Tissue, Tumor 06/08/2023 1:38 PM LIQUID CHLORINE OPERATOR DTL Tissue ID [id number] 06/08/2023 1:38 PM LIQUID CHLORINE OPERATOR DTL Method Microscopic examination is performed by [...] and additional information on this test, see [email or web address]. Re Pet (Test ID [id number]). 06/08/2023 1:38 PM LIQUID CHLORINE OPERATOR DTL Disclaimer This test cannot differentiate between [...] of heterozygosity) and sequencing artifact/misalignme nt [PMID: [id number], PMID: [id number]]. This test cannot reliably determine if a [...] developed and its performance characteristics determined by [facility] in a manner consistent with CLIA requirements. This test has not been cleared or approved by the U.S. Food and Drug Administration. 06/08/2023 1:38 PM LIQUID CHLORINE OPERATOR DTL Released By Kiki SheppardB.S., Ph.D. 06/08/2023 1:38 PM LIQUID CHLORINE OPERATOR DTL Interpretation MSI: Stable (RODO) NO evidence of microsatellite instability was detected suggesting the presence of normal DNA mismatch repair function within the tumor. Current data suggest that advanced stage solid tumors with intact mismatch repair (RODO) are less likely to be responsive to treatment with immunotherapies such as anti-PD-1 therapies [PMID [id number], PMID 45896681]. The presence of intact mismatch repair (RODO) is considered to be an unfavorable prognostic factor for patients with colorectal cancer [PMID: 31763178]. These results decrease the likelihood but do [...] APC c.4348C>T (p.R1450*) (Exon 16) and c.2319del (p.A852Eva*4) (Exon 16) APC (adenomatous polyposis coli) is a tumor suppressor gene that encodes the protein Apc, which plays critical roles in regulating cell division and adhesion. Apc interacts with beta-catenin and controls signaling in the Wnt pathway, which helps regulate embryonic development and cell differentiation [PMID:52045605]. Inactivation of Apc results in the deregulation of Wnt signaling through beta-catenin [PMID:56800790]. In the absence of functional Apc, beta-catenin accumulates and is translocated to the nucleus, where it promotes the property controller of genes promoting cellular proliferation [PMID:60879216]. APC mutations have been reported in 48-80% of colon samples [[employer], [employer]]. There are currently no known clinically approved therapies that specifically target APC mutations. 2) KRAS c.38G>A (p.G13D) (Exon 2) KRAS encodes a signaling protein member of the Burke family [PMID:[id number], PMID:[id number], PMID:[id number]]. Activating KRAS alterations, mainly through mutations in exons 2, 3, and 4 (most commonly at codons G12, G13 and Q61), result in oncogenic activation of downstream signaling pathways, including the Jesus/MEK/ERK pathway [PMID:[id number], PMID:6970616]. KRAS mutations have been reported in 33-43% of colon samples [COSMIC, [facility]]. Current data suggests that the efficacy of EGFR-targeted therapies in colorectal cancer is limited to patients with tumors lacking an activating KRAS mutation [PMID:[id number], PMID:[id number]]. VARIANT OF UNCERTAIN SIGNIFICANCE One variant of uncertain significance was detected. The variant was not observed at significant frequency in population germline/cancer somatic variant databases nor predicted to be functionally significant based on variant type/in silico algorithm results. Additionally, there was no convincing published evidence of cancer association. Therefore, the clinical significance of the detected variant is unknown. 06/08/2023 1:38 PM LIQUID CHLORINE OPERATOR DTL 05/12/2023 3:47 PM LIQUID CHLORINE OPERATOR 06/01/2023 1:15 PM LIQUID CHLORINE OPERATOR Scooby Jacobs M.D. LAB [facility] [place] [facility] [address] [place] [address], [facility] DT [address] [facility] [address] [place] [address] * Surgical Pathology, Frozen Lab (05/12/2023 12:49 PM LIQUID CHLORINE OPERATOR) 05/18/2023 4:43 PM LIQUID CHLORINE OPERATOR METH Participated in the Interpretation Candi Cantu M.D.-Pathology Fellow 05/18/2023 4:43 PM LIQUID CHLORINE OPERATOR METH Report electronically signed by Kiki RoaB.S., Ph.D. I verify that I have examined all relevant slides/materials for the specimen(s) and rendered or confirmed the diagnosis. 05/18/2023 4:43 PM LIQUID CHLORINE OPERATOR METH Frozen Intraoperative Report A. ??Terminal ileum, cecum, and appendix, right hemicolectomy: ??Invasive moderate-poorly differentiated adenocarcinoma, forming a 6.1 cm mass extending to the serosa. ??Resection margins negative for tumor. ??Closest mucosal margin 12.3 cm. ??Preliminarily, 5 tumor deposits and 2 of 9 lymph nodes positive for carcinoma. ??Pending further evaluation of additional lymph nodes on permanent sections.. Signed by Kiik RoaBAjitS., Ph.D. 05/13/2023 10:17 AM 05/18/2023 4:43 PM LIQUID CHLORINE OPERATOR METH Gross Description A. ??Received fresh labeled [...] nodes are identified within the mesenteric fat. ??Aircraft Ordnance Technician tissue is submitted for frozen and permanent sections. ??Grossed by Musa Kessler M.D., Ph.D.-Pathology Resident/Preet GermanHCarlos, PA([facility]). ??Additional sections of adipose tissue are submitted on 05/16/2023 by Georgia Eldridge M.D. -Pathology Resident. 05/18/2023 4:43 PM LIQUID CHLORINE OPERATOR METH Block Summary A Appendix, terminal ileum, [...] A48 Adipose tissue- 10 05/18/2023 4:43 PM LIQUID CHLORINE OPERATOR METH Addendum Genetic testing for [facility] Colorectal Cancer Panel ([facility]) will be performed and resulted in the patient's medical record. Signed by Caroline Michaud M.D. 06/02/2023 1:30 PM A portion of the testing process was performed at [facility] site [id number]. 06/02/2023 1:30 PM LIQUID CHLORINE OPERATOR METH Comment:REVISED RESULTS Interpretation FINAL DIAGNOSIS A. [...] in 1 hotspot field: Not applicable Tumor Klemme Score: Not applicable Treatment Effect: No known [...] of the testing process was performed at [facility] site [id number]. Digital imaging was used in the diagnostic assessment of this case. 06/02/2023 1:30 PM LIQUID CHLORINE OPERATOR METH Tissue (Colon) 05/12/2023 12 :49 PM LIQUID CHLORINE OPERATOR Bonny Swanson, B.Ch., M.D. LAB S URG PATH ORDERABLES [facility] [address] [place] [address], [facility] [address] [place] [address] * LA ARTL CATH/CNULA MONITOR PERC, LDA ANE ARTERIAL LINE INSERTION (05/12/2023 10:45 AM LIQUID CHLORINE OPERATOR) Narrative Shin Woods M.D. - 05/12/2023 10:45 AM LIQUID CHLORINE OPERATOR Marcus Tiwari R.N., CCRN ? 05/12/2023 10:58 [...] LDA ANE ENDOTRACHEAL AIRWAY (05/12/2023 10:31 AM LIQUID CHLORINE OPERATOR) Narrative Marcus Tiwari R.N., CCRN - 05/12/2023 10:31 AM LIQUID CHLORINE OPERATOR Marcus Tiwari R.N., EVANGELISTAN ? 05/12/2023 10:59 [...] ETT location: oral VL device: glide scope [place] scope blade size: 4 Tube size: 7.5 [...] * Antibody Identification, Erythrocytes (05/11/2023 3:18 PM LIQUID CHLORINE OPERATOR) Antibody Identification No antibody detected 05/11/2023 6:14 PM LIQUID CHLORINE OPERATOR DTL 05/11/2023 3:18 PM LIQUID CHLORINE OPERATOR 05/11/2023 3:24 PM LIQUID CHLORINE OPERATOR Narrative [facility] - 05/11/2023 6:14 PM LIQUID CHLORINE OPERATOR Specimen Information: Specimen ID: [id number] Specimen Collection Start Date: 05/11/2023 ??3:18 PM Specimen Received Date: 05/11/2023 ??3:24 PM Specimen ID: [id number] Specimen Collection Start Date: 05/11/2023 ??3:18 PM Specimen Received Date: 05/11/2023 ??3:24 PM Odilon Blair APRN, C.N.P., M.S.N. L AB BLOOD BANK TEST ORDERABLES [facility] [address] [place] [address], [facility] DTL [facility] [place] [address] [place] [address] * (ABNORMAL) CBC with Differential, Blood (05/11/2023 3:18 PM LIQUID CHLORINE OPERATOR) Only the most recent of31 resultswithin the time period is included. Hemoglobin 9.0(L) 13.2 - 16.6 g/dL 05/11/2023 3:35 PM LIQUID CHLORINE OPERATOR DTL Hematocrit 30.0(L) 38.3 - 48.6 % 05/11/2023 3:35 PM LIQUID CHLORINE OPERATOR DTL Erythrocytes 3.93(L) 4.35 - 5.65 x10(12)/L 05/11/2023 3:35 PM LIQUID CHLORINE OPERATOR DTL MCV 76.3(L) 78.2 - 97.9 fL 05/11/2023 3:35 PM LIQUID CHLORINE OPERATOR DTL RBC Distrib Width 19.7(H) 11.8 - 14.5 % 05/11/2023 3:35 PM LIQUID CHLORINE OPERATOR DTL Platelet Count 321(H) 135 - 317 x10(9)/L 05/11/2023 3:35 PM LIQUID CHLORINE OPERATOR DTL Leukocytes 9.5 3.4 - 9.6 x10(9)/L 05/11/2023 3:35 PM LIQUID CHLORINE OPERATOR DTL Neutrophils 6.39 1.56 - 6.45 x10(9)/L 05/11/2023 3:35 PM LIQUID CHLORINE OPERATOR DHPM Lymphocytes 1.98 0.95 - 3.07 x10(9)/L 05/11/2023 3:35 PM LIQUID CHLORINE OPERATOR DTL Monocytes 0.75 0.26 - 0.81 x10(9)/L 05/11/2023 3:35 PM LIQUID CHLORINE OPERATOR DTL Eosinophils 0.29 0.03 - 0.48 x10(9)/L 05/11/2023 3:35 PM LIQUID CHLORINE OPERATOR DTL Basophils 0.05 0.01 - 0.08 x10(9)/L 05/11/2023 3:35 PM LIQUID CHLORINE OPERATOR DTL Blood (Blood, Venous) 05/11/2023 3:18 PM LIQUID CHLORINE OPERATOR 05/11/2023 3:27 PM LIQUID CHLORINE OPERATOR Odilon Blair APRN, C.N.P., M.S.N. L AB BLOOD ADD-ON [facility] [address] [place] [address], [facility] DTL [facility] [place] [address] [place] [address] [facility] [address] [place] [address] * Type and Screen (with Reflex Antibody ID) (05/11/2023 3:18 PM LIQUID CHLORINE OPERATOR) Only the most recent of4 resultswithin the time period is included. Pathologist [facility] ABORh A Pos Not applicable 05/11/2023 4:37 PM LIQUID CHLORINE OPERATOR ETRM Antibody Screen Positive Negative 05/11/2023 4:51 PM LIQUID CHLORINE OPERATOR ETRM Type & Screen Expiration 05/14/2023 23:59 05/11/2023 4:37 PM LIQUID CHLORINE OPERATOR ETRM Testing Location [place] DEFAULT 05/11/2023 3:24 PM LIQUID CHLORINE OPERATOR ETRM Blood (Blood, Venous) 05/11/2023 3:18 PM LIQUID CHLORINE OPERATOR 05/11/2023 3:24 PM LIQUID CHLORINE OPERATOR Odilon Blair APRN, C.N.P., M.S.N. L AB BLOOD BANK TEST ORDERABLES Performing Organization Address City/[facility]/ZIP Co de Phone Number [facility] [address] [place] [address], [facility] ETRM [facility] [place] [address] [place] [address] * (ABNORMAL) Hemoglobin A1c (05/11/2023 3:18 PM LIQUID CHLORINE OPERATOR) Only the most recent of6 resultswithin the time period is included. Pathologist [facility] Hemoglobin A1c, B 6.5(H) 4.0 - 5.6 % 05/11/2023 5:35 PM LIQUID CHLORINE OPERATOR DTL Comment: Hemoglobin A1c values greater than or equal to 6.5 percent are diagnostic for diabetes mellitus. ??Diagnosis should be confirmed by repeat testing. ??In diabetic patients, HbA1c goals should be discussed with healthcare provider. Blood (Blood, Venous) 05/11/2023 3:18 PM LIQUID CHLORINE OPERATOR 05/11/2023 3:27 PM LIQUID CHLORINE OPERATOR Delma Ramirez APRN, C.N.P., D.N.P. LAB BLOOD ADD-ON [facility] [address] [place] [address], [facility] DTL [facility] [place] [place] [address] [place] [address] * (ABNORMAL) Basic Metabolic Panel (05/11/2023 3:18 PM LIQUID CHLORINE OPERATOR) Only the most recent of31 resultswithin the time period is included. Potassium, S 4.5 3.6 - 5.2 mmol/L 05/11/2023 4:01 PM LIQUID CHLORINE OPERATOR DTL Sodium, S 139 135 - 145 mmol/L 05/11/2023 4:01 PM LIQUID CHLORINE OPERATOR DTL Chloride, S 100 98 - 107 mmol/L 05/11/2023 4:01 PM LIQUID CHLORINE OPERATOR DTL Bicarbonate, S 28 22 - 29 mmol/L 05/11/2023 4:01 PM LIQUID CHLORINE OPERATOR DTL Anion Gap 11 7 - 15 05/11/2023 4:01 PM LIQUID CHLORINE OPERATOR DTL BUN (Blood Urea Nitrogen), S 31(H) 8 - 24 mg/dL 05/11/2023 4:01 PM LIQUID CHLORINE OPERATOR DTL Creatinine 1.37(H) 0.74 - 1.35 mg/dL 05/11/2023 4:01 PM LIQUID CHLORINE OPERATOR DTL Estimated GFR (eGFR) 55(L) >=60 mL/min/BSA 05/11/2023 4:01 PM LIQUID CHLORINE OPERATOR DTL Comment: Estimated GFR calculated using the 2020 CKD_EPI creatinine equation. Calcium, Total, S 9.1 8.8 - 10.2 mg/dL 05/11/2023 4:01 PM LIQUID CHLORINE OPERATOR DTL Glucose, S 192(H) 70 - 140 mg/dL 05/11/2023 4:01 PM LIQUID CHLORINE OPERATOR DTL Blood (Blood, Venous) 05/11/2023 3:18 PM LIQUID CHLORINE OPERATOR 05/11/2023 3:45 PM LIQUID CHLORINE OPERATOR Odilon Blair APRN, C.N.P., M.S.N. L AB BLOOD ADD-ON Performing Organization Address City/[facility] Co de Phone Number [facility] [address] [place] [address], [facility] DTL [facility] [place] [address] [place] [address] * (ABNORMAL) Magnesium (04/27/2023 6:34 AM LIQUID CHLORINE OPERATOR) Only the most recent of7 resultswithin the time period is included. Magnesium, P 1.6(L) 1.7 - 2.3 mg/dL 04/27/2023 7:00 AM LIQUID CHLORINE OPERATOR [facility] Blood (Blood, Venous) 04/27/2023 6:34 AM LIQUID CHLORINE OPERATOR 04/27/2023 6:39 AM LIQUID CHLORINE OPERATOR Moises Ochoa M.D. LAB BLOOD ADD -ON Performing Organization Address [facility] Co de Phone Number [facility] [address] [place] [address], [facility] [place] [address] [place] [address] * (ABNORMAL) Urinalysis with Microscopic: Urine, Midstream (04/26/2023 2:10 PM LIQUID CHLORINE OPERATOR) Only the most recent of14 resultswithin the time period is included. Source Urine, Urine, Midstream 04/26/2023 2:16 PM LIQUID CHLORINE OPERATOR [facility] Clarity Clear Clear 04/26/2023 2:20 PM LIQUID CHLORINE OPERATOR [facility] Color Yellow 04/26/2023 2:20 PM LIQUID CHLORINE OPERATOR [facility] Comment: ----REFERENCE VALUE---- Colorless Yellow Francine Blood Negative Negative 04/26/2023 2:20 PM LIQUID CHLORINE OPERATOR [facility] Nitrite Negative Negative 04/26/2023 2:20 PM LIQUID CHLORINE OPERATOR [facility] Leukocyte Esterase Trace(A) Negative 04/26/2023 2:20 PM LIQUID CHLORINE OPERATOR [facility] Protein Negative mg/dL 04/26/2023 2:20 PM LIQUID CHLORINE OPERATOR [facility] Comment: ----REFERENCE VALUE---- Negative Trace Glucose 100(A) Negative mg/dL 04/26/2023 2:20 PM LIQUID CHLORINE OPERATOR [facility] Ketones, QI(U) Negative Negative mg/dL 04/26/2023 2:20 PM LIQUID CHLORINE OPERATOR [facility] Bilirubin Negative Negative 04/26/2023 2:20 PM LIQUID CHLORINE OPERATOR [facility] pH 5.5 5.0 - 8.0 04/26/2023 2:20 PM LIQUID CHLORINE OPERATOR [facility] Specific [place] 1.020 1.001 - 1.035 04/26/2023 2:20 PM LIQUID CHLORINE OPERATOR [facility] Urobilinogen 0.2 0.2 - 1.0 mg/dL 04/26/2023 2:20 PM LIQUID CHLORINE OPERATOR [facility] White Blood Cells Occ-3 /hpf 04/26/2023 2:48 PM LIQUID CHLORINE OPERATOR [facility] Comment: ----REFERENCE VALUE---- Males: 0-3 Females: 0-10 Unknown: 0-10 Red Blood Cells Occ-2 0 - 2 /hpf 2:48 PM LIQUID CHLORINE OPERATOR [facility] Dysmorphic Red Blood Cells <=25 <=25 % 04/26/2023 2:48 PM LIQUID CHLORINE OPERATOR [facility] Squamous Cells Occ-3 /hpf 04/26/2023 2:48 PM LIQUID CHLORINE OPERATOR [facility] Urine (Urine, Midstream) 04/26/2023 2:10 PM LIQUID CHLORINE OPERATOR 04/26/2023 2:16 PM LIQUID CHLORINE OPERATOR Moises Ochoa M.D. LAB URINE ORD ERABLES [facility] [address] [place] [address], [facility] in [address] [address] * (ABNORMAL) Comprehensive Metabolic Panel (04/24/2023 9:36 AM LIQUID CHLORINE OPERATOR) Only the most recent of5 resultswithin the time period is included. Potassium, P 4.1 3.6 - 5.2 mmol/L 04/24/2023 10:04 AM LIQUID CHLORINE OPERATOR [facility] Sodium, P 141 135 - 145 mmol/L 04/24/2023 10:04 AM LIQUID CHLORINE OPERATOR [facility] Chloride, P 105 98 - 107 mmol/L 04/24/2023 10:04 AM LIQUID CHLORINE OPERATOR [facility] Bicarbonate, P 24 22 - 29 mmol/L 04/24/2023 10:04 AM LIQUID CHLORINE OPERATOR [facility] Anion Gap, P 12 7 - 15 04/24/2023 10:04 AM LIQUID CHLORINE OPERATOR [facility] BUN (Blood Urea Nitrogen), P 30(H) 8 - 24 mg/dL 04/24/2023 10:04 AM LIQUID CHLORINE OPERATOR [facility] Creatinine 1.33 0.74 - 1.35 mg/dL 04/24/2023 10:04 AM LIQUID CHLORINE OPERATOR [facility] Estimated GFR (eGFR) 58(L) >=60 mL/min/BS A 04/24/2023 10:04 AM LIQUID CHLORINE OPERATOR [facility] Comment: Estimated GFR calculated using the 2020 CKD_EPI creatinine equation. Calcium, Total, P 8.7(L) 8.8 - 10.2 mg/dL 04/24/2023 10:04 AM LIQUID CHLORINE OPERATOR [facility] Glucose, P 263(H) 70 - 140 mg/dL 04/24/2023 10:04 AM LIQUID CHLORINE OPERATOR [facility] Protein, Total, P 5.6(L) 6.3 - 7.9 g/dL 04/24/2023 10:04 AM LIQUID CHLORINE OPERATOR [facility] Albumin, P 3.3(L) 3.5 - 5.0 g/dL 04/24/2023 10:04 AM LIQUID CHLORINE OPERATOR [facility] Aspartate Aminotransferase (AST), P 7(L) 8 - 48 U/L 04/24/2023 10:04 AM LIQUID CHLORINE OPERATOR [facility] Alkaline Phosphatase, P 84 40 - 129 U/L 04/24/2023 10:04 AM LIQUID CHLORINE OPERATOR [facility] Alanine Aminotransferase (ALT), P 11 7 - 55 U/L 04/24/2023 10:04 AM LIQUID CHLORINE OPERATOR [facility] Bilirubin, Total, P <0.2 0.0 - 1.2 mg/dL 04/24/2023 10:04 AM LIQUID CHLORINE OPERATOR [facility] Blood (Blood, Venous) 04/24/2023 9:36 AM LIQUID CHLORINE OPERATOR 04/24/2023 9:46 AM LIQUID CHLORINE OPERATOR Hilary Barnhart M.D. LAB BLOOD ADD-ON [facility] [address] [place] [address], [facility] in [address] [address] * Bacteria / Ronda Culture, Blood #2 (04/20/2023 12:50 PM LIQUID CHLORINE OPERATOR) Only the most recent of10 resultswithin the time period is included. Pathologist [facility] Bacteria/Mariola da Culture, Blood No growth after 5 day/s of incubation. 04/25/2023 1:05 PM LIQUID CHLORINE OPERATOR [facility] Blood (Blood, Peripheral Draw) 04/20/2023 12:50 PM LIQUID CHLORINE OPERATOR 04/20/2023 12:55 PM LIQUID CHLORINE OPERATOR Comment:Specimen Source Site : Blood Leila Jo M.D. LAB MICROBIOLOGY - G ENERAL ORDERABLES [facility] [address] [place] [address], [facility] in [address] [address] * Lactate (04/18/2023 4:33 PM LIQUID CHLORINE OPERATOR) Only the most recent of3 resultswithin the time period is included. [facility] Lactate, P 0.9 0.5 - 2.2 mmol/L 04/18/2023 7:09 PM LIQUID CHLORINE OPERATOR [facility] Blood (Blood, Venous) 04/18/2023 4:33 PM LIQUID CHLORINE OPERATOR 04/18/2023 7:09 PM LIQUID CHLORINE OPERATOR Leila Jo M.D. LAB BLOOD NON ADD-ON [facility] [address] [place] [address], [facility] in [address] [address] * SARS Coronavirus 2, PCR Rapid Symptomatic (04/18/2023 3:25 PM LIQUID CHLORINE OPERATOR) Only the most recent of2 resultswithin the time period is included. Pathologist [facility] SARS CoV-2, PCR, Rapid, V Undetected Undetected 04/18/2023 3:58 PM LIQUID CHLORINE OPERATOR [facility] Comment: ----ADDITIONAL INFORMATION---- This RT-PCR test was performed using the [employer] SARS-CoV-2 and Influenza A/B Reagent assay from [employer], which has received Emergency Use Authorization(EUA) by the U.S. Food and Drug Administration. Fact sheets for this Emergency Use Authorization (EUA) assay can be found at the following links: For Healthcare Providers: https://www.fda.gov/media/395314/download For Patients: https://www.fda.gov/media/009383/download SARS Coronavirus 2, Source, Rapid Swab, Nasopharynx 04/18/2023 3:38 PM LIQUID CHLORINE OPERATOR [facility] Swab (Nasopharynx) 04/18/2023 3:25 PM LIQUID CHLORINE OPERATOR 04/18/2023 3:38 PM LIQUID CHLORINE OPERATOR Leila Jo M.D. LAB MICROBIOLOGY - G ENERAL ORDERABLES Performing Organization Address [facility]/ZIP Co de Phone Number [address] [address], [facility] in [address] [address] * Influenza A/B and RSV, PCR, Point of Care (04/18/2023 3:25 PM LIQUID CHLORINE OPERATOR) Influenza A, POCT Negative Negative 04/18/2023 3:40 PM LIQUID CHLORINE OPERATOR [facility] Influenza B, POCT Negative Negative 04/18/2023 3:40 PM LIQUID CHLORINE OPERATOR [facility] Resp Syncytial Virus, POCT Negative Negative 04/18/2023 3:40 PM LIQUID CHLORINE OPERATOR [facility] Swab (Nasopharynx) 04/18/2023 3:25 PM LIQUID CHLORINE OPERATOR 04/18/2023 3:38 PM LIQUID CHLORINE OPERATOR Leila Jo M.D. LAB POCT ORDERABLES - DEVICE Performing Organization Address [facility]/ZIP Co de Phone Number [facility] [address] [place] [address], [facility] in [address] [address] * CT Abdomen Pelvis with IV Contrast (04/18/2023 2:12 PM LIQUID CHLORINE OPERATOR) Anatomical Region Laterality Modality Abdomen, Pelvis, Abdominal R ST LOS, Abdominal ARZ LOS, Abdominal FLA LOS N/A Computed Tomography 04/18/2023 2:08 PM LIQUID CHLORINE OPERATOR Impressions 04/18/2023 4:14 PM LIQUID CHLORINE OPERATOR 1. Limited/incomplete CT imaging of lateral right [...] kidneys and pancreas. Narrative 04/18/2023 4:14 PM LIQUID CHLORINE OPERATOR EXAM: CT ABDOMEN PELVIS WITH IV CONTRAST [...] the lateral right abdomen not included within [id number]. Within this limitation, no evidence of bowel [...] of the lateral rightabdomen not included within [id number]. Within this limitation, noevidence of bowel obstruction, [...] for Sepsis with Reflex (04/18/2023 12:29 PM LIQUID CHLORINE OPERATOR) Lactate, P 0.9 0.5 - 2.2 mmol/L 04/18/2023 4:21 PM LIQUID CHLORINE OPERATOR [facility] Blood (Blood, Venous) 04/18/2023 12:29 PM LIQUID CHLORINE OPERATOR 04/18/2023 12:37 PM LIQUID CHLORINE OPERATOR Leila Jo M.D. LAB BLOOD NON ADD-ON [facility] [address] [place] [address], [facility] in [address] [address] * (ABNORMAL) Susceptibility, Anaerobic, JEANCARLOS (04/18/2023 12:29 PM LIQUID CHLORINE OPERATOR) Susceptibility , Anaerobic, JEANCARLOS CLOSTRIDIUM SEPTICUM(A) 04/26/2023 2:09 PM LIQUID CHLORINE OPERATOR DTL Comment:Organism identified by client. Blood, Peripheral Draw 04/18/2023 12:29 PM LIQUID CHLORINE OPERATOR 04/21/2023 11:27 AM LIQUID CHLORINE OPERATOR Comment:Specimen Source Site : Blood Narrative [facility] - 04/26/2023 2:09 PM LIQUID CHLORINE OPERATOR CLOSEP Organism Antibiotic Method Susceptibility Clostridium septicum Clindamycin SUSCEPTIBIL ITY, JEANCARLOS (MCG/ML) <=2 mcg/mL: Susceptible Clostridium septicum Ertapenem SUSCEPTIBIL ITY, JEANCARLOS (MCG/ML) <=4 mcg/mL: Susceptible Clostridium septicum Metronidazole SUSCEPTIBIL ITY, JEANCARLOS (MCG/ML) 4 mcg/mL: Susceptible Clostridium septicum Penicillin SUSCEPTIBIL ITY, JEANCARLOS (MCG/ML) <=0.5 mcg/mL: Susceptible Clostridium septicum Piperacillin + Tazobactam SUSCEPTIBILITY, JEANCARLOS (MCG/ML) <=16/4 mcg/mL: Susceptible Leila Jo M.D. LAB MICROBIOLOGY - [facility] ORDERABLES [facility] [address] [place] [address], [place] [facility] [address] [place] [address] * ECG 12 Lead (04/15/2023 9:35 AM LIQUID CHLORINE OPERATOR) Only the most recent of8 resultswithin the time period is included. Ventricular Rate ECG/Min 66 BPM MUSE LA Interval 304 ms MUSE QRSD Interval 102 ms MUSE QT Interval 406 ms MUSE QTC Interval 425 ms MUSE P [place] 23 degrees MUSE R [place] 20 degrees MUSE T Wave [place] 75 degrees MUSE 04/15/2023 9:35 AM LIQUID CHLORINE OPERATOR 04/15/2023 10:24 AM LIQUID CHLORINE OPERATOR Impressions MUSE - 04/15/2023 10:24 AM LIQUID CHLORINE OPERATOR Sinus rhythm with 1st degree A-V block [...] Steiner M.D. ECG ORDERABLES Performing Organization Address City/[facility]/ZIP Co de Phone Number MUSE NA * (ABNORMAL) Morphology Evaluation (04/15/2023 5:56 AM LIQUID CHLORINE OPERATOR) Only the most recent of6 resultswithin the time period is included. RBC Morphology See Specific Findings 04/15/2023 6:31 AM LIQUID CHLORINE OPERATOR [facility] PLT Morphology Normal 04/15/2023 6:31 AM LIQUID CHLORINE OPERATOR [facility] PLT Estimate Adequate Adequate 04/15/2023 6:31 AM LIQUID CHLORINE OPERATOR [facility] Anisocytosis Slight(A) 04/15/2023 6:31 AM LIQUID CHLORINE OPERATOR [facility] Elliptocytes Slight(A) Not Seen 04/15/2023 6:31 AM LIQUID CHLORINE OPERATOR [facility] Blood 04/15/2023 5:56 AM LIQUID CHLORINE OPERATOR 04/15/2023 6:08 AM LIQUID CHLORINE OPERATOR Florencio Smith D.O. LAB BLOOD ADD-ON Performing Organization Address [facility] Co de Phone Number [facility] [address] [place] [address], [facility] [place] [address] * (ABNORMAL) Bacterial Culture, Aerobic + Susceptibility, Urine (04/12/2023 8:52 PM LIQUID CHLORINE OPERATOR) Only the most recent of9 resultswithin the time period is included. Urine Culture ESCHERICHIA COLI >100,000 cfu/mL (A) 04/15/2023 7:30 AM LIQUID CHLORINE OPERATOR [facility] Urine (Urine, Midstream) 04/12/2023 8:52 PM LIQUID CHLORINE OPERATOR 04/13/2023 2:02 PM LIQUID CHLORINE OPERATOR Comment:Specimen Source Site : Urine Narrative Organism [...] M.D. LAB MICROBIOL OGY [place] [address], [facility] [place] [address] * (ABNORMAL) CBC without Differential (04/08/2023 5:52 AM LIQUID CHLORINE OPERATOR) Only the most recent of15 resultswithin the time period is included. Hemoglobin 8.7(L) 13.2 - 16.6 g/dL 04/08/2023 6:32 AM LIQUID CHLORINE OPERATOR [facility] Hematocrit 29.8(L) 38.3 - 48.6 % 04/08/2023 6:32 AM LIQUID CHLORINE OPERATOR [facility] Erythrocytes 3.81(L) 4.35 - 5.65 x10(12)/L 04/08/2023 6:32 AM LIQUID CHLORINE OPERATOR [facility] MCV 78.2 78.2 - 97.9 fL 04/08/2023 6:32 AM [employer]QU[employer] OPERATOR [facility] RBC Distrib Width 24.5(H) 11.8 - 14.5 % 04/08/2023 6:32 AM [employer]ID [employer] OPERATOR [facility] Platelet Count 245 135 - 317 x10(9)/L 04/08/2023 6:32 AM [employer]QUID [employer]LOR[employer] OPERATOR [facility] Leukocytes 5.9 3.4 - 9.6 x10(9)/L 04/08/2023 6:32 AM [employer]QUID [employer] OPERATOR [facility] Blood (Blood, Venous) 04/08/2023 5:52 AM [employer]QUID [employer]LORINE OPERATOR 04/08/2023 6:18 AM LIQUID CHLORINE OPERATOR Carter Steiner M.D. LAB BLOOD ADD-ON Performing Organization Address [facility] Co de Phone Number [facility]- [address] [address], [facility] in [address] [address] * (ABNORMAL) CRP (C-Reactive Protein) (04/07/2023 6:08 AM LIQUID CHLORINE OPERATOR) Only the most recent of2 resultswithin the time period is included. C-Reactive Protein (CRP), P 18.9(H) <5.0 mg/L 04/07/2023 8:42 AM LIQUID CHLORINE OPERATOR [facility] Blood (Blood, Venous) 04/07/2023 6:08 AM LIQUID CHLORINE OPERATOR 04/07/2023 8:04 AM LIQUID CHLORINE OPERATOR Carter Steiner M.D. LAB BLOOD ADD-ON Performing Organization Address City/[facility]/ZIP Co de Phone Number [facility]- [address] [address], [facility] in [address] [address] * (ABNORMAL) Iron and Total Iron-Binding Capacity (03/28/2023 6:01 AM LIQUID CHLORINE OPERATOR) Only the most recent of2 resultswithin the time period is included. Iron 26(L) 50 - 150 mcg/dL 03/28/2023 2:44 PM LIQUID CHLORINE OPERATOR [facility] Total Iron Binding Capacity 251 250 - 400 mcg/dL 03/28/2023 2:44 PM LIQUID CHLORINE OPERATOR MKTO Percent Saturation 10(L) 14 - 50 % 03/28/2023 2:44 PM LIQUID CHLORINE OPERATOR MKTO Blood (Blood, Venous) 03/28/2023 6:01 AM LIQUID CHLORINE OPERATOR 03/28/2023 2:15 PM LIQUID CHLORINE OPERATOR Leila Jo M.D. LAB BLOOD ADD-ON Performing Organization Address City/[facility]/ZIP Co de Phone Number [facility] [address] [place] [address], [place] MKTO [facility] in [place] [address] [place] [address] * (ABNORMAL) Hemoglobin (03/26/2023 6:19 AM LIQUID CHLORINE OPERATOR) Only the most recent of15 resultswithin the time period is included. Hemoglobin 8.1(L) 13.2 - 16.6 g/dL 03/26/2023 7:37 AM LIQUID CHLORINE OPERATOR [facility] Blood (Blood, Venous) 03/26/2023 6:19 AM LIQUID CHLORINE OPERATOR 03/26/2023 7:03 AM LIQUID CHLORINE OPERATOR Florencio Smith D.O. LAB BLOOD ADD-ON Performing Organization Address City/[facility]/ZIP Co de Phone Number [facility] [address] [place] [address], [facility] System in [address] [address] * (ABNORMAL) BMP (Basic Metabolic Panel), POCT (03/24/2023 6:26 AM LIQUID CHLORINE OPERATOR) BUN (Blood Urea Nitrogen), POCT, B 30(H) 8 - 24 mg/dL 03/24/2023 6:26 AM LIQUID CHLORINE OPERATOR [facility] Chloride, POCT, B 101 98 - 107 mmol/L 03/24/2023 6:26 AM LIQUID CHLORINE OPERATOR [facility] Creatinine, POCT, B 1.5(H) 0.7 - 1.4 mg/dL 03/24/2023 6:26 AM LIQUID CHLORINE OPERATOR [facility] Comment: ----ADDITIONAL INFORMATION---- Performed at the Point of Care Estimated GFR (eGFR), POCT 50(L) >=60 mL/min/BSA 03/24/2023 6:28 AM LIQUID CHLORINE OPERATOR [facility] Comment: Estimated GFR calculated using the 2020 CKD_EPI creatinine equation. Glucose, POCT, B 142(H) 70 - 140 mg/dL 03/24/2023 6:26 AM LIQUID CHLORINE OPERATOR [facility] Calcium, Ionized, POCT, B 4.80 4.65 - 5.30 mg/dL 03/24/2023 6:26 AM LIQUID CHLORINE OPERATOR [facility] Potassium, POCT, B 3.9 3.6 - 5.2 mmol/L 03/24/2023 6:26 AM LIQUID CHLORINE OPERATOR [facility] Sodium, POCT, B 138 135 - 145 mmol/L 03/24/2023 6:26 AM LIQUID CHLORINE OPERATOR [facility] Total CO2, POCT, B 27 22 - 29 mmol/L 03/24/2023 6:26 AM LIQUID CHLORINE OPERATOR [facility] Anion Gap, POCT, B 10 7 - 15 03/24/2023 6:26 AM LIQUID CHLORINE OPERATOR [facility] Blood 03/24/2023 6:26 AM LIQUID CHLORINE OPERATOR 03/24/2023 6:28 AM LIQUID CHLORINE OPERATOR Generic Rals LAB POCT ORDERABLES - DEVICE [facility] [address] [place] [address], [facility] [place] [address] * Transfuse Red Blood Cells : (03/21/2023 6:51 PM LIQUID CHLORINE OPERATOR) Only the most recent of2 resultswithin the time period is included. Leila Jo M.D. BLOOD TRANSFUSION OR DERABLES * Testing Location (03/21/2023 12:29 PM LIQUID CHLORINE OPERATOR) Testing Location [facility] DEFAULT 03/21/2023 12:48 PM LIQUID CHLORINE OPERATOR MKTO Blood 03/21/2023 12:2 9 PM LIQUID CHLORINE OPERATOR 03/21/2023 12:47 PM LIQUID CHLORINE OPERATOR Leila Jo M.D. LAB BLOOD BANK TEST ORDERABLES [facility] [address] [place] [address], [facility] [address] [place] [phone] * (ABNORMAL) Prealbumin (PAB) (03/21/2023 6:09 AM LIQUID CHLORINE OPERATOR) Prealbumin 15(L) 19 - 38 mg/dL 03/21/2023 2:34 PM LIQUID CHLORINE OPERATOR [facility] Blood (Blood, Venous) 03/21/2023 6:09 AM LIQUID CHLORINE OPERATOR 03/21/2023 2:08 PM LIQUID CHLORINE OPERATOR Leila Jo M.D. LAB BLOOD ADD-ON [facility] [address] [place] [address], [address] [address] * (ABNORMAL) Albumin (03/21/2023 6:09 AM LIQUID CHLORINE OPERATOR) Only the most recent of2 resultswithin the time period is included. Albumin, P 3.2(L) 3.5 - 5.0 g/dL 03/21/2023 7:43 AM LIQUID CHLORINE OPERATOR [facility] Blood (Blood, Venous) 03/21/2023 6:09 AM LIQUID CHLORINE OPERATOR 03/21/2023 7:29 AM LIQUID CHLORINE OPERATOR Leila Jo M.D. LAB BLOOD ADD-ON [facility] [address] [place] [address], [facility] System in [place] [address] [place] [address] * Leg, right-Nursing Image Exam (03/14/2023 11:50 AM LIQUID CHLORINE OPERATOR) Only the most recent of2 resultswithin the time period is included. 03/14/2023 11:4 8 AM LIQUID CHLORINE OPERATOR Narrative [facility] - 03/14/2023 11:50 AM LIQUID CHLORINE OPERATOR This order has been created and auto-finalized to support the import of images acquired without order. The clinical documentation to support these images can be found on the encounter that produced images. Provider Not In System IMG NON RAD IMAGI NG PROCEDURES Performing Organization Address [facility] de Phone Number [facility] NA * Leg-Emergency Department Image Exam (03/08/2023 2:50 PM LIQUID CHLORINE OPERATOR) 03/08/2023 2:49 PM LIQUID CHLORINE OPERATOR Narrative IIM[facility] - 03/08/2023 2:52 PM LIQUID CHLORINE OPERATOR This order has been created and auto-finalized to support the import of images acquired without order. The clinical documentation to support these images can be found on the encounter that produced images. Provider Not In System IMG NON RAD IMAGI NG PROCEDURES Performing Organization Address [facility] de Phone Number [facility] NA * Back-Family Medicine Image Exam (02/25/2023 11:08 AM LIQUID CHLORINE OPERATOR) Only the most recent of2 resultswithin the time period is included. 02/25/2023 11:0 6 AM LIQUID CHLORINE OPERATOR Narrative IIM[facility] - 02/25/2023 11:08 AM LIQUID CHLORINE OPERATOR This order has been created and auto-finalized to support the import of images acquired without order. The clinical documentation to support these images can be found on the encounter that produced images. Provider Not In System IMG NON RAD IMAGI NG PROCEDURES Performing Organization Address [facility] de Phone Number [facility] NA * IR Lumbar Spine Facet Injection Right (02/25/2023 10:48 AM LIQUID CHLORINE OPERATOR) Only the most recent of2 resultswithin the time period is included. Anatomical Region Laterality Modality Lumbar Spine, Neuro Interven tional RST LOS, Neuroradiology ARZ LOS, Neuro Interventional FLA LOS Right X -Ray Angiography 02/25/2023 10:5 2 AM LIQUID CHLORINE OPERATOR Impressions 02/25/2023 11:18 AM LIQUID CHLORINE OPERATOR 1. Fluoroscopically-guided right L4-L5 transforaminal epidural steroid injection was performed. 2. Left sided injection was not performed due to significant patient discomfort with procedural positioning and difficulty repositioning the patient. NR Narrative 02/25/2023 11:18 AM LIQUID CHLORINE OPERATOR EXAM: IR LUMBAR SPINE FACET INJECTION RIGHT; [...] Electrolyte (Chem 4) Panel (02/24/2023 5:44 AM LIQUID CHLORINE OPERATOR) Only the most recent of4 resultswithin the time period is included. Potassium, P 4.0 3.6 - 5.2 mmol/L 02/24/2023 6:47 AM LIQUID CHLORINE OPERATOR DTL Sodium, P 139 135 - 145 mmol/L 02/24/2023 6:47 AM LIQUID CHLORINE OPERATOR DTL Chloride, P 105 98 - 107 mmol/L 02/24/2023 6:47 AM LIQUID CHLORINE OPERATOR DTL Bicarbonate, P 24 22 - 29 mmol/L 02/24/2023 6:47 AM LIQUID CHLORINE OPERATOR DTL Anion Gap, P 10 7 - 15 02/24/2023 6:47 AM LIQUID CHLORINE OPERATOR DTL Blood (Blood, Venous) 02/24/2023 5:44 AM LIQUID CHLORINE OPERATOR 02/24/2023 6:12 AM LIQUID CHLORINE OPERATOR Maisha Ny M.D. LAB BLOOD ADD-ON Performing Organization Address City/[facility]/ZIP Co de Phone Number [facility] [address] [place] [address] * Vancomycin, Trough (02/23/2023 6:28 PM LIQUID CHLORINE OPERATOR) Pathologist [facility] Vancomycin, Trough, S 19.8 10.0 - 20.0 mcg/mL 02/23/2023 8:21 PM LIQUID CHLORINE OPERATOR DTL Blood (Blood, Venous) 02/23/2023 6:28 PM LIQUID CHLORINE OPERATOR 02/23/2023 7:03 PM LIQUID CHLORINE OPERATOR Montserrat Gilbert M.D. LAB BLOOD NON ADD- ON Performing Organization Address [facility] Co de Phone Number [facility] [address] [place] [address], [facility] [address] [place] [address] * PET CT Skull to Thigh FDG (02/22/2023 12:21 PM LIQUID CHLORINE OPERATOR) Anatomical Region Laterality Modality Body, Nuclear Medicine PET R ST LOS, PET ARZ LOS, Nuclear Medicine PET FLA LOS, Nuclear Medicine N/A Positron Emission Tomography (PET), Positron Emission Tomography (PET) 02/22/2023 1:12 PM LIQUID CHLORINE OPERATOR Impressions 02/22/2023 1:32 PM LIQUID CHLORINE OPERATOR 1. Markedly FDG avid mass in the ascending colon, consistent with the primary colonic neoplasm. 2. No definite abnormal FDG uptake that could correspond with the known sigmoid neoplasm. 3. At least three right paracolic lymph nodes, worrisome for metastases. 4. No FDG avid distant metastatic disease. Narrative 02/22/2023 1:32 PM LIQUID CHLORINE OPERATOR EXAM: ??PET CT SKULL TO THIGH FDG Serum glucose at time of F-18 FDG injection was 121 mg/dL. Patient followed standard dietary/fasting requirements for this exam. RADIOPHARMACEUTICAL/MEDS: Route: intravenous fludeoxyglucose F 18 injection FDC (FDG F-18),8.02 millicurie TECHNIQUE: ??F-18 FDG PET/CT [...] RADIOPHARMACEUTICAL/MEDS: Route: intravenous fludeoxyglucose F 18 injection FDC (FDG F-18),8.02 millicurie TECHNIQUE: F-18 FDG PET/CT [...] * (ABNORMAL) SPSMA Result (02/21/2023 4:34 PM LIQUID CHLORINE OPERATOR) Only the most recent of2 resultswithin the time period is included. Neutrophilic Segs and Bands 65 50 - 75 % 02/21/2023 5:51 PM LIQUID CHLORINE OPERATOR DHPM Lymphocytes 21 18 - 42 % 02/21/2023 5:51 PM LIQUID CHLORINE OPERATOR DHPM Monocytes 6 2 - 11 % 02/21/2023 5:51 PM LIQUID CHLORINE OPERATOR DHPM Eosinophils 7(H) 1 - 3 % 02/21/2023 5:51 PM LIQUID CHLORINE OPERATOR DHPM Basophils 1 0 - 2 % 02/21/2023 5:51 PM LIQUID CHLORINE OPERATOR DHPM Manual Absolute Neutrophil Count 3.51 1.56 - 6.45 x10(9)/L 02/21/2023 5:51 PM LIQUID CHLORINE OPERATOR DHPM Comment: ----ADDITIONAL INFORMATION---- The manual absolute neutrophil count is derived from a manual differential count and therefore is not exactly comparable to the automated absolute neutrophil count. Interpretation See Comment 5:51 PM LIQUID CHLORINE OPERATOR DHPM Comment: No morphologic features of hemolysis are seen. Hypochromic microcytic red blood cells are present: consider iron deficiency anemia. Reviewed by: Dev 02/21/2023 5:51 PM LIQUID CHLORINE OPERATOR DHPM Blood 02/21/2023 4:34 PM LIQUID CHLORINE OPERATOR 02/21/2023 4:49 PM LIQUID CHLORINE OPERATOR Yaquelin Juares M.D. LAB BLOOD ADD-ON [facility] [address] [place] [address], [facility] [address] [place] [address] * MR Cervical Spine without IV Contrast (02/21/2023 3:05 PM LIQUID CHLORINE OPERATOR) Anatomical Region Laterality Modality Spine, Cervical Spine, Neuro radiology RST LOS, Neuroradiology ARZ LOS, Neuroradiology FLA LOS N/A Magneti c Resonance 02/21/2023 3:14 PM LIQUID CHLORINE OPERATOR Impressions 02/22/2023 8:23 AM LIQUID CHLORINE OPERATOR Noncontrasted MR imaging of the cervical spine [...] neural foraminal stenosis. Narrative 02/22/2023 8:23 AM LIQUID CHLORINE OPERATOR EXAM: MR CERVICAL SPINE WITHOUT IV CONTRAST [...] Angiogram with IV Contrast (02/21/2023 12:26 PM LIQUID CHLORINE OPERATOR) Anatomical Region Laterality Modality Abdomen, Pelvis, Cardiovascu lar RST LOS, Abdominal ARZ LOS, Vascular Interventional ARZ LOS, Abdominal FLA LOS, Vascular Interventional FLA LOS, Procedural N/A Computed Tomography, Compute d Tomography 02/21/2023 12:1 4 PM LIQUID CHLORINE OPERATOR Impressions 02/21/2023 1:37 PM LIQUID CHLORINE OPERATOR 1. No active gastrointestinal bleeding identified. 2. Primary colonic adenocarcinoma of the ascending colon with mild interval increase in mural thickness. 3. Interval passage of endoscopic clips from the sigmoid colon. 4. Decreased size of pelvic retroperitoneal lymphadenopathy 5. Remainder not significantly changed. Narrative 02/21/2023 1:37 PM LIQUID CHLORINE OPERATOR EXAM: ??CT ABDOMEN PELVIS ANGIOGRAM WITH IV CONTRAST Including 3D image post-processing. COMPARISON: ??CT abdomen and pelvis with IV contrast from an outside institution dated 02/01/2023 and reinterpreted at [facility] on 02/07/2023. FINDINGS: VASCULAR FINDINGS: No active [...] (series 7, image 241), previously 16 mm ([id number] screen captures in series 1000). No pneumatosis, [...] (series 7, image 462), previously 24 mm ([id number] screen captures in series 1000). Similar mildly [...] Spine with IV Contrast (02/21/2023 12:26 PM LIQUID CHLORINE OPERATOR) Anatomical Region Laterality Modality Lumbar Spine, Neuroradiology RST LOS, Neuroradiology ARZ LOS, Neuroradiology FLA LOS N/A Computed Tomography, Compute d Tomography 02/21/2023 12:2 9 PM LIQUID CHLORINE OPERATOR Impressions 02/21/2023 12:37 PM LIQUID CHLORINE OPERATOR 1. Multilevel lumbar spondylotic changes as described, seen in greater detail on MRI of 02/20/2023. Multilevel spinal canal narrowing is most prominent at L3-4 and L4-5 where it is advanced. 2. Multilevel neural foraminal narrowing, most prominent at L5-S1 where it is advanced bilaterally. Narrative 02/21/2023 12:37 PM LIQUID CHLORINE OPERATOR EXAM: CT LUMBAR SPINE WITH IV CONTRAST [...] (ABNORMAL) LD (Lactate Dehydrogenase) (02/21/2023 9:27 AM LIQUID CHLORINE OPERATOR) [facility] LD 251(H) 122 - 222 U/L 02/21/2023 11:37 AM LIQUID CHLORINE OPERATOR DT Blood (Blood, Venous) 02/21/2023 9:27 AM LIQUID CHLORINE OPERATOR 02/21/2023 9:56 AM LIQUID CHLORINE OPERATOR Yaquelin Juares M.D. LAB BLOOD NON AD D-ON Performing Organization Address City/[facility]/ZIP Co de Phone Number [facility] [address] [place] [address], [facility] [address] [place] [address] * (ABNORMAL) Haptoglobin (02/21/2023 9:27 AM LIQUID CHLORINE OPERATOR) [facility] Haptoglobin, S 324(H) 30 - 200 mg/dL 02/22/2023 9:18 AM LIQUID CHLORINE OPERATOR [facility] Blood (Blood, Venous) 02/21/2023 9:27 AM LIQUID CHLORINE OPERATOR 02/21/2023 1:16 PM LIQUID CHLORINE OPERATOR Yaquelin Juares M.D. LAB BLOOD ADD-ON Performing Organization Address City/[facility]/ZIP Co de Phone Number [facility] [address] [place] [address] [facility] [address] [place] [address] * Bilirubin, Direct (02/21/2023 9:27 AM LIQUID CHLORINE OPERATOR) Only the most recent of2 resultswithin the time period is included. [facility] Bilirubin, Direct, S <0.2 0.0 - 0.3 mg/dL 02/21/2023 10:34 AM LIQUID CHLORINE OPERATOR [facility] Blood (Blood, Venous) 02/21/2023 9:27 AM LIQUID CHLORINE OPERATOR 02/21/2023 9:43 AM LIQUID CHLORINE OPERATOR Yaquelin Juares M.D. LAB BLOOD ADD-ON [facility] [address] DTL [facility] [address] [place] [address] * Bilirubin, Total (02/21/2023 9:27 AM LIQUID CHLORINE OPERATOR) Bilirubin, Total, P 0.4 0.0 - 1.2 mg/dL 02/21/2023 9:53 AM LIQUID CHLORINE OPERATOR STMA Blood (Blood, Venous) 02/21/2023 9:27 AM LIQUID CHLORINE OPERATOR 02/21/2023 9:39 AM LIQUID CHLORINE OPERATOR Yaquelin Juares M.D. LAB BLOOD ADD-ON Performing Organization Address City/[facility]/ZIP Co de Phone Number [facility] [address] STMA [facility] [address] [place] [address] * DX Lumbar Spine 2-3 Views (02/20/2023 6:25 PM LIQUID CHLORINE OPERATOR) Anatomical Region Laterality Modality Lumbar Spine, Musculoskeleta l RST LOS, Neuroradiology ARZ LOS, Muskuloskeletal FLA LOS N/A Digital Radiography 02/20/2023 6:27 PM LIQUID CHLORINE OPERATOR Impressions 02/20/2023 6:34 PM LIQUID CHLORINE OPERATOR Evaluation of the lateral views is significantly limited by patient positioning and consequent overlap of osseous structures. Within these limitations, no obvious acute fractures or traumatic malalignment is identified. There is moderate lumbar spondylosis characterized by facet arthropathy and hypertrophic degenerative changes of the endplates. Leftward convex lumbar curvature. Narrative 02/20/2023 6:34 PM LIQUID CHLORINE OPERATOR EXAM: ??DX LUMBAR SPINE 2-3 VIEWS Procedure [...] B, RSV, PCR, Rapid (02/20/2023 4:11 PM LIQUID CHLORINE OPERATOR) Influenza A, PCR, Rapid, V Negative Negative 02/20/2023 4:47 PM LIQUID CHLORINE OPERATOR STMA Influenza B, PCR, Rapid, V Negative Negative 02/20/2023 4:47 PM LIQUID CHLORINE OPERATOR [facility] Resp Synctial Virus, PCR, Rapid Negative Negative 02/20/2023 4:47 PM LIQUID CHLORINE OPERATOR [facility] Specimen Source Swab, Nasopharynx 02/20/2023 4:47 PM LIQUID CHLORINE OPERATOR STMA Swab (Nasopharynx) 02/20/2023 4:11 PM LIQUID CHLORINE OPERATOR 02/20/2023 4:15 PM LIQUID CHLORINE OPERATOR Montserrat Gilbert M.D. LAB MICROBIOLOGY - GENERAL ORDERABLES [facility] [address] [place] [address], [facility] [address] [place] [address] * MR Lumbar Spine without IV Contrast (02/20/2023 10:42 AM LIQUID CHLORINE OPERATOR) Only the most recent of2 resultswithin the time period is included. Anatomical Region Laterality Modality Lumbar Spine, Neuroradiology RST LOS, Neuroradiology ARZ LOS, Neuroradiology FLA LOS N/A Magnetic Resonance 02/20/2023 11:0 7 AM LIQUID CHLORINE OPERATOR Impressions 02/20/2023 12:12 PM LIQUID CHLORINE OPERATOR 1. Again demonstrated is a large right [...] bilaterally at L5-S1. Narrative 02/20/2023 12:12 PM LIQUID CHLORINE OPERATOR EXAM: MR LUMBAR SPINE WITHOUT IV CONTRAST [...] overlying the lumbar spine. Ligamentum flavum hypertrophy [id number] level penetrating to at least mild/moderate canal [...] Dada Simms M.D. IMG MRI PROCEDURES * [facility] Internal Medicine Image Exam (02/20/2023 6:38 AM MST) 02/20/2023 7:36 AM MST Narrative IIMS - 02/20/2023 6:38 AM [facility] This order has been created and auto-finalized to support the import of images acquired without order. The clinical documentation to support these images can be found on the encounter that produced images. Provider Not In System IMG NON RAD IMAGI NG PROCEDURES Performing Organization Address City/[facility]/ZIP Co de Phone Number [facility] NA * Dipstick, Urine (02/20/2023 6:05 AM LIQUID CHLORINE OPERATOR) Only the most recent of5 resultswithin the time period is included. Hemoglobin, QL, U Negative Negative 02/20/2023 7:37 AM LIQUID CHLORINE OPERATOR DTL Leukocyte Esterase, U Negative Negative 02/20/2023 7:37 AM LIQUID CHLORINE OPERATOR DTL Nitrite, U Negative Negative 02/20/2023 7:37 AM LIQUID CHLORINE OPERATOR DTL Ketone, U Negative Negative mg/dL 02/20/2023 7:37 AM LIQUID CHLORINE OPERATOR DTL Glucose, U Negative Negative mg/dL 02/20/2023 7:37 AM LIQUID CHLORINE OPERATOR DTL Urine 02/20/2023 6:05 AM LIQUID CHLORINE OPERATOR 02/20/2023 6:39 AM LIQUID CHLORINE OPERATOR Peter Alva M.D., M.S. LAB URINE ORD ERABLES [facility] [address] [place] [address], [facility] DTL [facility] [address] [place] [address] * (ABNORMAL) Microscopic Manual (02/20/2023 6:05 AM LIQUID CHLORINE OPERATOR) Only the most recent of6 resultswithin the time period is included. Microscopy Abnormal 02/20/2023 7:55 AM LIQUID CHLORINE OPERATOR DTL RBC <3 <3 /hpf 02/20/2023 7:55 AM LIQUID CHLORINE OPERATOR DTL Casts, Hyaline Occas /lpf 02/20/2023 7:55 AM LIQUID CHLORINE OPERATOR DTL Casts, Granular Occas(A) /lpf 7:55 AM LIQUID CHLORINE OPERATOR DTL Urine 02/20/2023 6:05 AM LIQUID CHLORINE OPERATOR 02/20/2023 7:37 AM LIQUID CHLORINE OPERATOR Peter Alva M.D., M.S. LAB URINE ORD ERABLES Performing Organization Address City/[facility]/ZIP Co de Phone Number [facility] [address] [place] [address] * pH, Urine (02/20/2023 6:05 AM LIQUID CHLORINE OPERATOR) Only the most recent of3 resultswithin the time period is included. pH, U 5.4 4.5 - 8.0 02/20/2023 7:0 9 AM LIQUID CHLORINE OPERATOR DT Urine 02/20/2023 6:05 AM LIQUID CHLORINE OPERATOR 02/20/2023 6:39 AM LIQUID CHLORINE OPERATOR Peter Alva M.D., M.S. LAB URINE ORD ERABLES [facility] [address] [place] [address], [place] [address] * Osmolality, Urine (02/20/2023 6:05 AM LIQUID CHLORINE OPERATOR) Only the most recent of3 resultswithin the time period is included. Osmolality, U 726 150 - 1150 mOsm/kg 02/20/2023 7:09 AM LIQUID CHLORINE OPERATOR DTL Urine 02/20/2023 6:05 AM LIQUID CHLORINE OPERATOR 02/20/2023 6:39 AM LIQUID CHLORINE OPERATOR Peter Alva M.D., M.S. LAB URINE ORD ERABLES [facility] [address] [place] [address] * S-TSH (Thyroid-Stimulating Hormone - Sensitive) (02/20/2023 2:34 AM LIQUID CHLORINE OPERATOR) TSH, Sensitive 0.9 0.3 - 4.2 mIU/L 02/20/2023 4:20 AM LIQUID CHLORINE OPERATOR DTL Blood (Blood, Venous) 02/20/2023 2:34 AM LIQUID CHLORINE OPERATOR 02/20/2023 2:54 AM LIQUID CHLORINE OPERATOR Peter Alva M.D., M.S. LAB BLOOD ADD -ON Performing Organization Address City/[facility]/ZIP Co de Phone Number [facility] [address] [place], [place] [address] [place] [address] 200 [place] [address] * (ABNORMAL) Glucose, Fasting (02/18/2023 7:34 AM CDT) Only the most recent of2 resultswithin the time period is included. Glucose, P 154(H) 70 - 100 mg/dL 02/18/2023 8:32 AM CDT DTL Last Intake 13 hr 02/18/2023 8:18 AM CDT DTL Blood (Blood, Venous) 02/18/2023 7:34 AM CDT 02/18/2023 8:18 AM CDT Dave Mckeon M.D. LAB BLOOD NON ADD -ON Performing Organization Address City/[facility]/ZIP Co de Phone Number [facility] [address] [place], [place] [address] [place] [address] 200 [place] [id number] * (ABNORMAL) Ferritin (02/18/2023 7:34 AM CDT) Only the most recent of2 resultswithin the time period is included. Pathologist [facility] Ferritin, S 21(L) 31 - 409 mcg/L 02/18/2023 8:48 AM CDT DT Blood (Blood, Venous) 02/18/2023 7:34 AM CDT 02/18/2023 8:18 AM CDT Peter Greenberg M.D. LAB BLOOD ADD-ON Performing Organization Address City/[facility]/ZIP Co de Phone Number [facility] [address] [place] [address], [address] [address] * CEA (Carcinoembryonic Antigen) (02/18/2023 7:33 AM CDT) Pathologist [facility] Carcinoembryonic Ag (CEA), S 2.9 ng/mL 02/18/2023 2:53 PM CDT [facility] Comment: ----REFERENCE VALUE---- <=3.0 (Non-smokers) Some smokers may have elevated CEA, usually <5.0. ----ADDITIONAL INFORMATION---- The testing method is an immunoenzymatic assay manufactured by [employer] and performed on the [employer] DxI 800. ? Values obtained with different assay methods or kits may be different and cannot be used interchangeably. ? Test results cannot be interpreted as absolute evidence for the presence or absence of malignant disease. Blood (Blood, Venous) 02/18/2023 7:33 AM CDT 02/18/2023 1:02 PM CDT Dave Mckeon M.D. LAB BLOOD ADD-ON [facility] [address] [place] [address] [facility] [address] [place] [address] * Interpretation of Outside CT Abdomen and [...] prior outside abdominal CT from 04/15/2021 and [facility] chest radiograph from 01/05/2022. FINDINGS: Several scattered small indeterminate solid noncalcified pulmonary nodules which were either not included in the [id number] were not clearly visible on prior abdominal [...] prior outside abdominal CT from 04/15/2021 and [facility] chest radiograph from01/05/2022. FINDINGS: Several scattered small indeterminate solid noncalcified pulmonary noduleswhich were either not included in the [id number] were not clearly visible on prior abdominalCTs. [...] separately, if requestedfor interpretation. Dave Mckeon M.D. [facility] CT PROCEDURES * Pathology Review of Outside Material (01/31/2023 2:45 PM CDT) 02/24/2023 4:03 PM LIQUID CHLORINE OPERATOR DTL Participated in the Interpretation Candi Cantu M.D.-Pathology Fellow 02/24/2023 4:03 PM LIQUID CHLORINE OPERATOR DTL Report electronically signed by Bridgette Don M.D. I verify that I have examined all relevant slides/materials for the specimen(s) and rendered or confirmed the diagnosis. 02/24/2023 4:03 PM LIQUID CHLORINE OPERATOR DTL Material Received A. [id number]: Colon, ascending, transverse, descending, sigmoid ? 23 stained slides 02/24/2023 4:03 PM LIQUID CHLORINE OPERATOR DTL Interpretation FINAL DIAGNOSIS Colon, biopsy ([id number]; 01/31/2023): ? A. ??Colon, proximal, ascending, mass, biopsy: Invasive moderately differentiated adenocarcinoma. Immunohistochemis try for mismatch repair proteins was performed at an outside institution and reviewed at [facility]. ??The neoplastic cells revealed the following: MLH1: [...] made via digital imaging. 02/24/2023 4:03 PM LIQUID CHLORINE OPERATOR DTL Varies 01/31/2023 2:45 PM CDT 02/11/2023 10:24 AM CDT Dave Mckeon M.D. LAB SURG PATH ORD ERABLES Performing Organization Address City/[facility]/ZIP Co de Phone Number [facility] [address] [place] [address], [facility] DTL [address] [place] [address] * CT cervical spine wo con-Outside CT Neuro (12/31/2022 9:35 PM CDT) Only the most recent of4 resultswithin the time period is included. 12/31/2022 9:29 PM CDT Narrative IIWI - 01/01/2023 12:04 AM CDT This order has been created and auto-finalized to support the import of outside images. If available, original interpretation can be found on the Media Tab in Chart Review, in Document Viewer, or as an image in [employer]. If a re-interpretation or overread is required please follow defined workflow. ?? Provider Not In System IMG CT PROCEDURES Performing Organization Address City/[facility]/ZIP Co de Phone Number IIWI NA * XR INJ EPIDURAL INTERLAMINAR LUMBAR-Outside [...] RAD IMAGI NG PROCEDURES Performing Organization Address [facility]/ZIP Co de Phone Number IIWI NA * MR SPINE LUMBAR WO-Outside MR Neuro (11/29/2022 4:30 AM CDT) Narrative [facility] - 12/01/2022 2:59 PM CDT This order [...] IMG MRI PROCEDURE S Performing Organization Address [facility] de Phone Number IIWI NA * (ABNORMAL) Dipstick, POCT, Urine (11/27/2022 3:28 AM CDT) Only the most recent of2 resultswithin the time period is included. Glucose, POCT, U 100(A) Negative mg/dL 11/27/2022 3:30 AM CDT PCED Ketone, POCT, U Negative Negative mg/dL 11/27/2022 3:30 AM CDT PCED Specific [place], POCT, U 1.020 1.005 - 1.030 11/27/2022 [...] POCT ORDERABLES - DEVICE Performing Organization Address City/[facility]/ZIP Co de Phone Number POC RST [facility] OUT[facility]IENT [facility]S [address] [place] [address], [facility] PCED [facility] POC [address] [place] [address] * Microscopic Automated (11/27/2022 3:23 AM CDT) Only the most recent of3 resultswithin the time period is included. Microscopy Normal 11/27/2022 4:2 8 AM CDT DTL Urine 11/27/2022 3:23 AM CDT 11/27/2022 4:06 AM CDT Merlin Moffett M.D. LAB URINE ORDERABLES Performing Organization Address [facility] Co de Phone Number [facility] [address] [place] [address], [facility] [address] [place] [address] * (ABNORMAL) Creatinine with Estimated GFR (11/01/2022 [...] CDT William Briggs M.D. LAB BLOOD ADD-ON [facility] [address] [place] [id number], [facility] CNFL [facility] in [address] [address] * Phosphorus Inorganic (10/12/2022 6:53 AM CDT) Only the most recent of4 resultswithin the time period is included. Phosphorus (Inorganic), S 3.7 2.5 - 4.5 mg/dL 10/12/2022 8:07 AM CDT DTL Blood (Blood, Venous) 10/12/2022 6:53 AM CDT 10/12/2022 7:48 AM CDT Kandace Weaver APRN C.N.PAjit, M.S.N. LEEROY Gómez BLOOD ADD-ON [facility] [address] [place] [address], [facility] [address] [place] [address] * (ABNORMAL) Renal Function Panel (10/11/2022 2:11 [...] LA B BLOOD ADD-ON Performing Organization Address [facility] Co de Phone Number [address] [place] [address] * (ABNORMAL) HemoQuant, Feces (10/11/2022 1:21 PM CDT) Hemoglobin, Fecal 4.6(H) <=2 mg Hb/g 10/12/2022 1:51 PM CDT DTL Comment: ----ADDITIONAL INFORMATION---- This test was developed and its performance characteristics determined by [facility] in a manner consistent with CLIA requirements. This test has not been cleared or approved by the U.S. Food and Drug Administration. Stool (Stool) 10/11/2022 1:2 1 PM CDT 10/11/2022 2:05 PM CDT Maria Elena Morris M.D., Ph.D. LAB BODY FL UIDS AND STOOLS ORDERABLES Performing Organization Address [facility]/ZIP Co de Phone Number [facility] [address] [place] [address], [facility] DTL [address] [facility] [address] [place] [address] * US Kidneys Bilateral with Bladder (10/11/2022 8:30 AM CDT) Anatomical Region Laterality Modality Abdomen, Renal, Ultrasound R ST LOS, Ultrasound ARZ LOS, Ultrasound FLA LOS Bilateral Ultrasound 10/11/2022 8:46 AM CDT Impressions 10/11/2022 8:56 AM CDT Atrophic [place] kidneys bilaterally. No hydronephrosis. Narrative 10/11/2022 8:56 [...] lower pole cyst. Bladder: Normal. IMPRESSION: Atrophic [place] kidneys bilaterally. No hydronephrosis. Kandace Weaver APRN, C.N.P., M.S.N. IM G US PROCEDURES * Methylmalonic Acid (MMA), Quantitative, Serum (10/08/2022 7:05 AM CDT) Methylmalonic Acid, QN, S 0.14 <=0.40 nmol/mL 10/12/2022 10:48 AM CDT DTL Comment: No cellular B-12 deficiency. ----ADDITIONAL INFORMATION---- This test was developed and its performance characteristics determined by [facility] in a manner consistent with CLIA requirements. This test has not been cleared or approved by the U.S. Food and Drug Administration. Blood 10/08/2022 7:05 AM CDT 10/08/2022 12:08 PM CDT Mady Melgoza P.A.-C. LAB BLOOD NON ADD-ON Performing Organization Address City/[facility] Co de Phone Number [facility] [address] [place] [address], [facility] DTL [address] [facility] [address] [place] [address] * Pernicious Anemia [place] (10/08/2022 7:05 AM CDT) Pathologist [facility] Vitamin B12 Assay, S 362 180 - 914 ng/L 10/08/2022 12:08 PM CDT [facility] Comment:B-12 <400; MMA test was performed. Blood (Blood, Venous) 10/08/2022 7:05 AM CDT 10/08/2022 10:03 AM CDT Mady Melgoza P.A.-C. LAB BLOOD NON ADD-ON Performing Organization Address City/[facility] Co de Phone Number [facility] [address] [place] [address] [facility] [address] [place] [address] * Reticulocytes (10/08/2022 7:05 AM CDT) Pathologist [facility] Reticulocytes, B 2.14 0.60 - 2.71 % 10/08/2022 8:00 AM CDT DTL Absolute Reticulocyte 84.3 30.4 - 110.9 x10(9)/L 10/08/2022 8:00 AM CDT DTL Blood (Blood, Venous) 10/08/2022 7:05 AM CDT 10/08/2022 7:50 AM CDT Mady Melgoza P.A.-C. LAB BLOOD ADD- ON Performing Organization Address [facility]/ZIP Co de Phone Number [facility] [address] [place] [address], [facility] [address] [place] [address] * Folate (10/08/2022 7:05 AM CDT) Folate, S 11.7 >=4.0 mcg/L 10/08/2022 10:55 AM CDT DTL Blood (Blood, Venous) 10/08/2022 7:05 AM CDT 10/08/2022 8:06 AM CDT Mady Melgoza P.A.-C. LAB BLOOD ADD- ON Performing Organization Address [facility] Co de Phone Number [facility] [address] [place] [address], [facility] [address] [place] [address] * Venous Lower Extremity - Hemodynamic Study (04/05/2022 8:33 AM LIQUID CHLORINE OPERATOR) Anatomical Region Laterality Modality Other 04/05/2022 7:30 AM LIQUID CHLORINE OPERATOR Narrative 04/05/2022 7:30 AM LIQUID CHLORINE OPERATOR Right: VENOUS PLETHYSMOGRAPHY: ?Not done due to [...] prior studies. Claribel Alan M.D., Ph.D. CV [facility] ULAR PROCEDURES * LOWER EXTREMITY ARTERIAL - STANDARD PROTOCOL (04/05/2022 8:27 AM LIQUID CHLORINE OPERATOR) Anatomical Region Laterality Modality Other 04/05/2022 7:42 AM LIQUID CHLORINE OPERATOR Narrative 04/05/2022 7:42 AM LIQUID CHLORINE OPERATOR Right: Doppler Waveforms: ? Normal at all [...] prior studies. Claribel Alan M.D., Ph.D. CV [facility] ULAR PROCEDURES * ECG AMBULATORY REAL TIME CARDIAC MONITORING (01/27/2022 7:31 AM CDT) Min Heart Rate 52 bpm INFOBIONIC MOME Max Heart Rate 113 bpm INFOBIONIC MOME Mean Heart Rate 70 bpm INFOBIONIC MOME VE Total Beats 22,325 count INFOBIONIC MOME VE Percent Beats 1.65% percent INFOBIONIC MOME SVE Total Beats 60650 count INFOBIONIC MOME SVE Percent Beats 2.27% percent INFOBIONIC MOME Holter Pauses 0 count INFOBIONIC MOME AF Count 0 count INFOBIONIC MOME AF Duration 0 sec duration INFOBIONIC MOME AF [place] 0% percent INFOBIONIC MOME VT Runs 0 [...] 98 BPM. There were single PACs seen. Welder/Fabricator: SAIGE Barron/SAIGE Tenorio Procedure Note Balaji Hawkins [...] to 98 BPM. There were singlePACs seen. Welder/Fabricator: Norman Barron CRAT Kristian Dasilva M.D. CV CARDIAC SERVICES PROCEDURES CHELSEY ULLOA NA * HOLTER MONITOR - IN 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 (01/05/2022 11:52 AM CDT) Min Heart Rate 61 bpm INFOB IONIC MOME Max Heart Rate 123 bpm INFOB IONIC MOME Mean Heart Rate 82 bpm INFOBIONIC MOME VE Total Beats 218 count INFOB IONIC MOME VE Percent Beats less than 1 percent INFOBIONIC MOME SVE Total Beats 54762 count INFOBIONIC MOME SVE Percent Beats 19 percent INFOBIONIC MOME AF Count 0 count INFOBIONIC MOME AF Duration 0 duration INFOBION IC MOME AF [place] 0 percent INFOBIONIC MOME Symptom Count 2 [...] 117 bpm and PACs were seen singly. Welder/Fabricator: Kvng Burt/Azeem Fox Procedure Note Adriano Reed [...] 117 bpm and PACs were seen singly. Welder/Fabricator: Kvng Burt/Azeem Fox Mickey Galvan M.D. CV [...] BLOOD NON AD D-ON Performing Organization Address City/[facility]/ZIP Co de Phone Number [facility] [address] [place] [address] * T4 (Thyroxine), Free, Serum (01/04/2022 11:12 AM CDT) T4 (Thyroxine), Free, S 1.2 0.9 - 1.7 ng/dL 01/04/2022 12:46 PM CDT DTL Blood 01/04/2022 11:1 2 AM CDT 01/04/2022 11:58 AM CDT Narrative Authorizing Provider Result Charlene Galvan M.D. LAB BLOOD ADD-ON [facility] [address] [place] [address] * (ABNORMAL) Thyroid Function [place] (01/04/2022 11:12 AM CDT) TSH, Sensitive 4.5(H) 0.3 - 4.2 mIU/L 01/04/2022 12:26 PM CDT DTL Blood (Blood, Venous) 01/04/2022 11:12 AM CDT 01/04/2022 11:58 AM CDT Mickey Galvan M.D. LAB BLOOD ADD-ON [facility] [address] [place] [address], [facility] DTL [facility] [address] [place] [address] * (TTE) 2D ECHO DOPPLER COLOR AND [...] No ??pericardial effusion. There are no previous [facility] echocardiograms available for comparison. For the complete [...] location. No pericardial effusion. There are no [facility] echocardiograms available for comparison. For the complete report, see the Order-Level Documents. Mickey Galvan M.D. CV ECHO PROCEDUR ES * LA CYSTOURETHROSCOPY (03/03/2021 2:05 PM LIQUID CHLORINE OPERATOR) Narrative Mickey Ledezma APRN, C.N.P. - 03/03/2021 2:05 PM LIQUID CHLORINE OPERATOR Mickey Ledezma APRN, C.N.P. ? 03/03/2021 ??2:07 [...] ES * Osmolality, Urine (03/03/2021 11:43 AM LIQUID CHLORINE OPERATOR) Only the most recent of2 resultswithin the time period is included. Osmolality, U 761 150 - 1150 mOsm/kg 03/03/2021 4:18 PM LIQUID CHLORINE OPERATOR DTL Urine 03/03/2021 11:4 3 AM LIQUID CHLORINE OPERATOR 03/03/2021 2:38 PM LIQUID CHLORINE OPERATOR Mickey Galvan M.D. LAB URINE ORDERA BLEKristie Performing Organization Address City/[facility]/ZIP Co de Phone Number [facility] [address] [place] [address] * pH, Random, Urine (03/03/2021 11:43 AM LIQUID CHLORINE OPERATOR) Only the most recent of2 resultswithin the time period is included. pH, Random, U 6.4 4.5 - 8.0 03/03/2021 4:18 PM LIQUID CHLORINE OPERATOR DTL Urine 03/03/2021 11:4 3 AM LIQUID CHLORINE OPERATOR 03/03/2021 2:38 PM LIQUID CHLORINE OPERATOR Mickey Galvan M.D. LAB URINE ORDERA ANNALEE Performing Organization Address City/[facility]/ZIP Co de Phone Number [facility] [address] [place] [address], [facility] [place] [address] * Gram Stain, Urine (03/03/2021 11:43 AM LIQUID CHLORINE OPERATOR) Only the most recent of3 resultswithin the time period is included. Source Urine, Urine, Midstream 03/03/2021 2:37 PM LIQUID CHLORINE OPERATOR DTL Gram's Stain, Screen, U CANCELED 03/03/2021 2:38 PM LIQUID CHLORINE OPERATOR DTL Comment: Changed to a more appropriate test due to specimen/source received. Result canceled by the ancillary. Urine (Urine, Midstream) 03/03/2021 11:43 AM LIQUID CHLORINE OPERATOR 03/03/2021 2:37 PM LIQUID CHLORINE OPERATOR Mickey Galvan M.D. LAB URINE ORDERA ANNALEE [facility] [address] [place] [address], [place] DTL [facility] [place] [place] [address] [place] [address] * URO Uroflow (03/03/2021 10:45 AM LIQUID CHLORINE OPERATOR) Narrative Steffen Pringle M.D. - 03/03/2021 10:45 AM LIQUID CHLORINE OPERATOR Steffen Pringle M.D. ? 03/03/2021 12:23 PM [...] Mickey Galvan M.D. LAB URINE ORDERHugo MANTILLA [facility] [address] [place] [address], [place] DTL [facility] [place] [place] [address] [place] [address] * LA CYSTHRSCPY RMVL FB/STENT SMPL (05/07/2019 10:30 AM LIQUID CHLORINE OPERATOR) Narrative Keith Lovelace APRN, C.N.P., M.S.N. - 05/07/2019 10:30 AM LIQUID CHLORINE OPERATOR Keith Lovelace APRN, C.N.P., M.S.N. ? 05/07/2019 [...] Quant without IV Contrast (04/20/2019 1:00 PM LIQUID CHLORINE OPERATOR) Anatomical Region Laterality Modality Abdomen, Pelvis, Abdominal R ST LOS, Abdominal ARZ LOS, Abdominal FLA LOS N/A Computed Tomograp hy, Computed Tomography 04/20/2019 1:02 PM LIQUID CHLORINE OPERATOR Impressions 04/20/2019 1:13 PM LIQUID CHLORINE OPERATOR Interval placement of a right ureteral stent with removal of the obstructing right UVJ stone. Several right renal calculi persist. Tiny nonobstructing left renal calculi. Narrative 04/20/2019 1:13 PM LIQUID CHLORINE OPERATOR EXAM: ??CT ABDOMEN PELVIS KIDNEY STONE QUANT [...] Less Than 1 Hour (04/04/2019 1:34 PM LIQUID CHLORINE OPERATOR) Only the most recent of2 resultswithin the time period is included. Narrative 152 [facility]OS LOS RST - 04/04/2019 1:34 PM LIQUID CHLORINE OPERATOR This exam does not require a radiologist review or interpretation. Please refer to the patient's medical record on this date for clinical details. James Mina M.D. IMG FLUOROSCOPY PROC EDURES 152 [facility] LOS RST * Kidney Stone Analysis (04/04/2019 1:26 PM LIQUID CHLORINE OPERATOR) Only the most recent of3 resultswithin the time period is included. Source Stone, Ureter, Right 04/05/2019 9:56 PM LIQUID CHLORINE OPERATOR [facility] Stone Interpretation 100% Uric acid 04/05/2019 9:56 PM LIQUID CHLORINE OPERATOR [facility] Stone (Ureter, Right) 04/04/2019 1:26 PM LIQUID CHLORINE OPERATOR James Mina M.D. LAB MISC ORDERABLES [facility] [address] [place] [address] [facility] Dept. of Laboratory Medicine and Pathology [address] [place] [address] * LDA ANE ENDOTRACHEAL AIRWAY (04/04/2019 11:49 AM LIQUID CHLORINE OPERATOR) Narrative Deyvi Gordon R.N. - 04/04/2019 11:49 AM LIQUID CHLORINE OPERATOR Deyvi Gordon R.N. ? 04/04/2019 11:51 AM [...] ETT location: oral VL device: glide scope [place] scope blade size: 4 Adult tube size: [...] Non-Radiology Image-Urology Image Exam (03/12/2019 1:02 PM LIQUID CHLORINE OPERATOR) Only the most recent of3 resultswithin the time period is included. 03/12/2019 1:21 PM LIQUID CHLORINE OPERATOR Narrative IIMS - 03/12/2019 1:02 PM LIQUID CHLORINE OPERATOR This order has been created and auto-finalized to support the import of images acquired without order. The clinical documentation to support these images can be found on the encounter that produced images. Provider Not In System IMG NON RAD IMAGI NG PROCEDURES Performing Organization Address [facility] Co de Phone Number IIMS NA * LDA ANE ENDOTRACHEAL AIRWAY (03/12/2019 12:27 PM LIQUID CHLORINE OPERATOR) Narrative Dashawn Iqbal APRN, CRNA D.N.P. - 03/12/2019 12:27 PM LIQUID CHLORINE OPERATOR Dashawn Iqbal APRN, CRNA D.N.P. ? 03/12/2019 [...] ETT location: oral VL device: glide scope [place] scope blade size: 4 Adult tube size: [...] * Fungal Culture, Routine (03/12/2019 12:25 PM LIQUID CHLORINE OPERATOR) Fungal Culture, Routine No growth after 24 days of incubation. 04/06/2019 1:01 AM LIQUID CHLORINE OPERATOR DTL Urine (Urine, Cystoscopy) 03/12/2019 12:25 PM LIQUID CHLORINE OPERATOR Ashkan Villanueva M.D. LAB MICROBIOLOGY - G ENERAL ORDERABLES [facility] [address] [place] [address], [facility] DTL [facility] [place] [address] [place] [address] * Ketones, Qual, Urine (03/12/2019 4:36 AM LIQUID CHLORINE OPERATOR) Only the most recent of3 resultswithin the time period is included. Ketones, QL(U) Negative Negative mg/dL 03/12/2019 6:26 AM LIQUID CHLORINE OPERATOR ELOY Urine 03/12/2019 4:36 AM LIQUID CHLORINE OPERATOR 03/12/2019 5:44 AM LIQUID CHLORINE OPERATOR Sonja Huff M.D. LAB URINE ORDERAB LES [facility] [address] [place] [address], [facility] ELOY [facility] [place] [address] [place] [address] * CT Abdomen Pelvis without IV Contrast [...] appear to have calcific density on CT ditcher operator images suggesting that the nidus of the [...] appear to have calcific density on CT ditcher operator images suggesting thatthe nidus of the stones [...] 227 mmol/24 h 9 1:[address] [facility] Potassium, 24 HR, U 35 17 - 77 mmol/24 h 9 1:[address] [facility] Calcium, 24 HR, U 37 <250 mg/24 h 9 1:[address] [facility] Comment: ----ADDITIONAL INFORMATION---- This test was developed and its performance characteristics determined by [facility] in a manner consistent with CLIA requirements. This test has not been cleared or approved by the U.S. Food and Drug Administration. Magnesium, 24 HR, U 46(L) 51 - 269 mg/24 h 9 1:[address] [facility] Comment: ----ADDITIONAL INFORMATION---- This test has been modified from the computerized mill recorder's instructions. Its performance characteristics were determined by [facility] in a manner consistent with CLIA requirements. This test has not been cleared or approved by the U.S. Food and Drug Administration. Chloride, 24 HR, U 110 40 - 224 mmol/24 h 9 1:[address] [facility] Phosphorus, 24 HR, U 742 <1100 mg/24 h 9 1:[address] [facility] Sulfate Urine 11 7 - 47 mmol/24 h 9 1:[address] [facility] Comment: ----ADDITIONAL INFORMATION---- This test was developed and its performance characteristics determined by [facility] in a manner consistent with CLIA requirements. This test has not been cleared or approved by the U.S. Food and Drug Administration. Citrate Excretion, U 107 mg/24 h 9 1:[address] [facility] Comment: ----REFERENCE VALUE---- Reference values have not been established for patients who are >60 years of age. ----ADDITIONAL INFORMATION---- This test was developed and its performance characteristics determined by [facility] in a manner consistent with CLIA requirements. This test has not been cleared or approved by the U.S. Food and Drug Administration. Oxalate, U (mmol/24 h) 0.34 0.11 - 0.46 mmol/24 h 9 4:[address] [facility] Comment: ----ADDITIONAL INFORMATION---- This test was developed and its performance characteristics determined by [facility] in a manner consistent with CLIA requirements. This test has not been cleared or approved by the U.S. Food and Drug Administration. Oxalate, mg/24 h 29.9 9.7 - 40.5 mg/24 h 9 4:[address] [facility] pH, 24 HR, U 5.3 4.5 - 8.0 2:[address] [facility] Comment: ----ADDITIONAL INFORMATION---- This test was developed and its performance characteristics determined by [facility] in a manner consistent with CLIA requirements. This test has not been cleared or approved by the U.S. Food and Drug Administration. Uric Acid, 24 HR, U 510 <750 (Diet-depen dent) mg/24 h 9 1:[address] [facility] Comment: ----ADDITIONAL INFORMATION---- This test has been modified from the computerized mill recorder's instructions. Its performance characteristics were determined by [facility] in a manner consistent with CLIA requirements. This test has not been cleared or approved by the U.S. Food and Drug Administration. Creatinine, 24 HR, U 1641 mg/24 h 9 1:[address] [facility] Comment: ----REFERENCE VALUE---- The expected creatinine excretion per 24 hrs for males: 955-2936 mg/24 hrs or 13-29 mg/kg/24 hrs. Note: To convert to mg/kg of body weight/24 hrs, divide the mg/24 h result by the weight in kg. Osmolality, 24 HR, U 685 150 - 1150 mOsm/kg 2:[address] [facility] Comment: ----ADDITIONAL INFORMATION---- This test was developed and its performance characteristics determined by [facility] in a manner consistent with CLIA requirements. This test has not been cleared or approved by the U.S. Food and Drug Administration. Ammonium, 24 HR, U 31 15 - 56 mmol/24 h 9 2:[address] [facility] Comment: ----ADDITIONAL INFORMATION---- This test has been modified from the computerized mill recorder's instructions. Its performance characteristics were determined by [facility] in a manner consistent with CLIA requirements. This test has not been cleared or approved by the U.S. Food and Drug Administration. Urea Nitrogen, 24 HR, U 7.7 5.0 - 16.0 g/24 h 9 1:[address] [facility] Protein Catabolic Rate, 24 HR, U 73 56 - 125 g/24 h 1:[address] [facility] Calcium Oxalate Crystal 1.50 Reference Mean= 1.77 DG 11:[address] [facility] [facility] Brushite Crystal -2.46 Reference Mean= 0.21 DG 11:[address] [facility] Hydroxyapatite Crystal -0.18 Reference Mean= 3.96 DG 11:[address] [facility] Uric Acid Crystal 4.78(H) Reference Mean= 1.04 DG 11:[address] [facility] Sodium Urate Crystal 1.71 Reference Mean= 1.76 DG 11:[address] [facility] Collection Duration 24 h 11:[address] [facility] Volume 927 mL 11:[address] [facility] Interpretation The DG is related to supersaturation. DG is negative for undersaturated solutions, zero for solutions at the solubility product, and positive for saturated solutions. Any value greater than the Reference Mean is considered a risk for the respective crystal type formation. 11:[address] [facility] Urine (Urine, 24 Hours) 07/26/2018 9:00 AM CDT 07/26/2018 11:00 AM CDT Mickey Galvan M.D. LAB URINE DORIS MANTILLA [facility] [address] [place] [address], [place] * Monoclonal Protein Study, 24 Hour, Urine (07/26/2018 9:00 AM CDT) Total Protein, 24 HR, U 139 <229 mg/24 h 07/27/2018 8:[address] [facility] Comment: ----ADDITIONAL INFORMATION---- On 10/12/2016 the total protein assay method changed resulting in approximately a 15% increase in protein values. Collection Duration 24 h 07/27/2018 7:[address] [facility] Urine Volume 927 mL 07/27/2018 7:[address] [facility] Concentration 15 mg/dL 07/27/2018 8:[address] [facility] Albumin, % 38 % 07/28/2018 4:16 PM CDT [facility] Comment:53 mg/24 h Alpha 1-Globulin, % 5 % 07/28/2018 4:16 PM CDT [facility] Comment:7 mg/24 h Alpha-2 globulin, % 18 % 07/28/2018 4:16 PM CDT [facility] Comment:25 mg/24 h Beta globulin, % 17 % 07/29/19 19 4:16 PM CDT [facility] Comment:24 mg/24 h Gamma globulin, % 23 % 07/28/2018 4:16 PM T [facility] Comment:32 mg/24 h A/G Ratio 0.60 07/28/2018 4:16 PM T [facility] Impression All fractions present, no apparent M-spike. See Immunofixatio n. 07/28/2018 4:16 PM CDT [facility] Immunofixation, 24 Hr, U No monoclonal protein detected. 08/01/2018 3:04 PM T [facility] Urine (Urine, 24 Hours) 07/26/2018 9:00 AM CDT 07/27/2018 10:55 AM CDT Mickey Galvan M.D. LAB URINE ORDERA BLEKristie [facility] [address] [place] [address] [facility] [address] * 1,25-Dihydroxyvitamin D (07/25/2018 11:21 AM CDT) Pathologist [facility] 1, 25 DIHYDROXYVITAMIN D, S 30 18 - 64 pg/mL 07/27/2018 2:00 PM CDT [facility] Comment: ----ADDITIONAL INFORMATION---- This test was developed and its performance characteristics determined by [facility] in a manner consistent with CLIA requirements. This test has not been cleared or approved by the U.S. Food and Drug Administration. Blood (Blood, Venous) 07/25/2018 11:21 AM CDT 07/26/2018 7:08 AM CDT Mickey Galvan M.D. LAB BLOOD ADD-ON [facility] [address] [place] [address] * 25-Hydroxyvitamin D2 and D3 (07/25/2018 11:21 AM CDT) [facility] 25-Hydroxy D2 <4.0 ng/mL 07/27/2018 2:51 PM CDT [facility] 25-Hydroxy D3 50 ng/mL 07/27/2018 2:51 PM CDT [facility] 25-Hydroxy D Total 50 ng/mL 2018 2:51 PM CDT [facility] Comment: ----REFERENCE VALUE---- 25-HYDROXY D TOTAL (D2+D3) Optimum levels in the healthy population are 20-50, patients with bone disease may benefit from higher levels within this range. ----ADDITIONAL INFORMATION---- This test was developed and its performance characteristics determined by [facility] in a manner consistent with CLIA requirements. This test has not been cleared or approved by the U.S. Food and Drug Administration. Blood (Blood, Venous) 07/25/2018 11:21 AM CDT 07/26/2018 7:49 AM CDT Mickey Galvan M.D. LAB BLOOD ADD-ON [facility] [address] [place] [address] * Uric Acid (07/25/2018 11:21 AM CDT) Only the most recent of2 resultswithin the time period is included. Uric Acid, S 3.9 3.7 - 8.0 mg/dL 07/25/2018 12:[address] [facility] Blood (Blood, Venous) 07/25/2018 11:21 AM CDT 07/25/2018 11:42 AM CDT Mickey Galvan M.D. LAB BLOOD ADD-ON Performing Organization Address City/[facility]/ZIP Co de Phone Number [facility] [address] * ANESTHESIOLOGY IMAGE EXAM (08/26/2016 10:12 [...] (08/13/2015 10:01 AM CDT) Pathologist [facility] 24 Hour Excretion <9 <30 MG/[address] [facility] Albumin Excretion Rate <6 <20 MCG/MIN [facility] Albumin Concentration <5.0 MG/L [facility] Collection Duration [address] [facility] Urine Volume 1786 ML [facility] 08/13/2015 10:0 1 AM CDT 08/13/2015 10:01 AM CDT Scooby Cabezas M.D. LAB URINE ORDERABLES Performing Organization Address [facility]/ZIP Co de Phone Number [facility] [address] * Polysomnography (PSG) (07/28/2015 8:14 PM CDT) 07/28/2015 8:14 PM CDT Historical Provider SLEEP CENTER ORDERAB LES Performing Organization Address City/[facility]/ZIP Co de Phone Number [facility] [address] * PUL Home Overnight Oximetry (07/16/2015 9:00 PM CDT) 07/16/2015 9:00 PM CDT Historical Provider PFT ORDERABLES Performing Organization Address [facility] Co de Phone Number [facility] [address] * (ABNORMAL) Lipid Panel (07/16/2015 11:49 AM CDT) Pathologist [facility] Cholesterol, Total 174 SeeComment MG/DL [facility] Comment: ? REFERENCE VALUE ? Desirable: < 200 ? Borderline high: 200 - 239 ? High: > or = 240 ? Triglycerides 163(H) SeeComment MG/DL [facility] Comment: ? REFERENCE VALUE ? Normal: <150 ? Borderline high: 150-199 ? High: 200-499 ? Very high: > or =500 ? Cholesterol, Non-HDL, Calculated 140 SeeComment MG/DL [facility] Comment: ? REFERENCE VALUE ? Desirable: <130 ? Above Desirable: 130-159 ? Borderline high: 160-189 ? High: 190-219 ? Very high: > or =220 ? Cholesterol, HDL, S 34(L) >=40 MG/DL [facility] Calculated LDL 107 SeeComment MG/DL [facility] Comment: ? REFERENCE VALUE ? Desirable: <100 ? Above Desirable: 100-129 ? Borderline high: 130-159 ? High: 160-189 ? Very high: > or =190 ? 07/16/2015 11:4 9 AM CDT 07/16/2015 11:49 AM CDT Scooby Cabezas M.D. LAB BLOOD ADD-ON [facility] [address] * AST (Aspartate Aminotransferase) (07/16/2015 11:49 AM CDT) Only the most recent of2 resultswithin the time period is included. AST, Total, S 16 8 - 48 U/L [facility] 07/16/2015 11:4 9 AM CDT 07/16/2015 11:49 AM CDT Scooby Cabezas M.D. LAB BLOOD ADD-ON Performing Organization Address City/[facility] Co de Phone Number [facility] [address] * DX Knee Standing 4 Views [...] M.D. [id number] 10-Jul-2015 08:56 Tiffanie Shi APRNNAria [facility] DIAGNOST IC IMAGING PROCEDURES * DX Hip [...] [id number] 10-Jul-2015 08:57 Chitra Mauricio APRN C.N.P. [facility] DIAGNOST IC IMAGING PROCEDURES * US Abdomen Complete (04/04/2015 9:07 AM LIQUID CHLORINE OPERATOR) Anatomical Region Laterality Modality Abdomen N/A Ultrasound 04/04/2015 9:07 AM LIQUID CHLORINE OPERATOR Impressions 04/04/2015 10:06 AM LIQUID CHLORINE OPERATOR 1. No hydronephrosis. 2. 0.5 cm stone [...] Electronically signed by: ?? Preet Quezada MD [phone] 04-Apr-2015 10:06 ?DAjit Kline ?? [id number] 04-Apr-2015 10:06 Narrative 04/04/2015 10:06 AM LIQUID CHLORINE OPERATOR 04-Apr-2015 09:07:00 ??Exam: US Retroperitoneal Complete Indications: [...] Decompressed. Electronically signed by: Preet Quezada MD [phone] 04-Apr-2015 10:06 Josh Kline MD [id number] 10:06 Authorizing Provider Result Charlene Gutiérrez M.D. IMG US PROCEDURES * Sodium (04/04/2015 7:53 AM LIQUID CHLORINE OPERATOR) Only the most recent of3 resultswithin the time period is included. Sodium, S 142 135 - 145 MMOL/L [facility] 04/04/2015 7:53 AM LIQUID CHLORINE OPERATOR 04/04/2015 7:53 AM LIQUID CHLORINE OPERATOR Narrative Authorizing Provider Result Charlene Gutiérrez M.D. LAB BLOOD ADD-ON Performing Organization Address City/[facility]/ZIP Co de Phone Number [facility] [address] * (ABNORMAL) Potassium (04/04/2015 7:53 AM LIQUID CHLORINE OPERATOR) Only the most recent of3 resultswithin the time period is included. Potassium, S 3.4(L) 3.6 - 5.2 MMOL/L [facility] 04/04/2015 7:53 AM LIQUID CHLORINE OPERATOR 04/04/2015 7:53 AM LIQUID CHLORINE OPERATOR Narrative Authorizing Provider Result Charlene Gutiérrez M.D. LAB BLOOD ADD-ON Performing Organization Address City/[facility]/ZIP Co de Phone Number [facility] [address] * Bicarbonate (04/04/2015 7:53 AM LIQUID CHLORINE OPERATOR) Only the most recent of3 resultswithin the time period is included. HX Bicarbonate, P/S 26 22 - 29 MMOL/L [facility] 04/04/2015 7:53 AM LIQUID CHLORINE OPERATOR 04/04/2015 7:53 AM LIQUID CHLORINE OPERATOR Narrative Authorizing Provider Result Charlene Gutiérrez M.D. LAB BLOOD ADD-ON Performing Organization Address City/[facility]/ZIP Co de Phone Number [facility] [address] * Calcium, Total (04/04/2015 7:53 AM LIQUID CHLORINE OPERATOR) Only the most recent of2 resultswithin the time period is included. Calcium, Total, S 9.6 8.9 - 10.1 MG/DL [facility] 04/04/2015 7:53 AM LIQUID CHLORINE OPERATOR 04/04/2015 7:53 AM LIQUID CHLORINE OPERATOR Yumiko Gutiérrez M.D. LAB BLOOD ADD-ON [facility] [address] * CT Abdomen Pelvis Kidney Stone [...] changes. Electronically signed by: ?? Preet Crespo [facility] [phone] 30-Jan-2015 13:09 ?Preet Quezada MD [phone] 30-Jan-2015 13:09 Narrative 01/30/2015 1:09 PM CDT 30-Jan-2015 10:31:00 ??Exam: CT Renal Stone AP wo Indications: [id number] ??CT RENAL STONE - s/p right PCNL, eval residual stone burden ORIGINAL REPORT - 30-Jan-2015 13:09:00 EXAM: ??CT scan of the Abdomen and Pelvis without IV contrast COMPARISON: ??CT abdomen and pelvis renal stone protocol dated 11/25/2014. CT abdomen and pelvis dated 05/06/2014. Procedure Note Wilner Crespo M.B., B.Ch. - 07/14/2017 30-Jan-2015 10:31:00 Exam: CT Renal Stone AP wo Indications: [id number] CT RENAL STONE - s/p right PCNL, [...] degenerative changes. Electronically signed by: Preet Crespo [facility] [phone] 30-Jan-2015 13:09 Preet Quezada MD [id number] 13:[address] PROCEDURES * Microbiology Reports (01/29/2015 12:39 PM CDT) Only the most recent of3 resultswithin the time period is included. 01/29/2015 12:3 9 PM CDT 01/29/2015 7:[address] [facility] - 02/23/2015 1:09 AM LIQUID CHLORINE OPERATOR 29-JAN-2015 KIDNEY, STONE ?SoftOrd# [id number] ?(Ordered 29-JAN-2015; Collected 29-JAN-2015 12:39; Received 29-JAN-2015 19:57) ?[facility] ?FUNGAL CULTURE, ROUTINE ? (Reported 23-FEB-2015 01:09) [...] S ?*Restricted formulary antimicrobials; see intranet link: ?[email or web address] Procedure Note 07/26/2017 29-JAN-2015 KIDNEY, STONESoftOrd# [id number] (Ordered 29-JAN-2015; Collected 29-JAN-2015 12:39; [id number] 19:57) [facility] FUNGAL CULTURE, ROUTINE(Reported 23-FEB-2015 01:09) FINAL No [...] S *Restricted formulary antimicrobials; see intranet link: [email or web address] Veronique Arango M.D. LAB MICROBIOLOGY - G ENERAL ORDERABLES [facility] [address] [place] [address], [facility] * Ureaplasma PCR (01/29/2015 12:39 PM CDT) Specimen Source (Ureaplasma PCR) . [facility] Comment:KIDNEY STONE Ureaplasma urealyticum PCR Negative Not Applicable [facility] Ureaplasma parvum PCR Negative Not Applicable [facility] Comment: ? ADDITIONAL INFORMATION ? Laboratory developed test. ? 01/29/2015 12:3 9 PM CDT 01/29/2015 12:39 PM CDT Veronique Arango M.D. LAB MICROBIOLOGY - G ENERAL ORDERABLES [facility] [address] [place] [address], [facility] * Mycoplasma hominis PCR (01/29/2015 12:39 PM CDT) Specimen Source (Myco hominis PCR) . [facility] Comment:KIDNEY STONE Mycoplasma hominis PCR Negative Not Applicable [facility] Comment: ? ADDITIONAL INFORMATION ? Laboratory developed test. ? 01/29/2015 12:3 9 PM CDT 01/29/2015 12:39 PM CDT Veronique Arango M.D. LAB MICROBIOLOGY - G ENERAL ORDERABLES Performing Organization Address City/[facility] Co de Phone Number [facility] [address] * ABORh, RBC (01/29/2015 8:46 AM CDT) HXABO/RH BLOOD TYPE A Pos [facility] 01/29/2015 8:46 AM CDT Historical Provider LAB BLOOD BANK TEST ORDERABLES Performing Organization Address [facility] Co de Phone Number [facility] [address] * Antibody Screen, RBC (01/29/2015 8:46 AM CDT) Antibody Screen Negative [facility] 01/29/2015 8:46 AM CDT Historical Provider LAB BLOOD BANK TEST ORDERABLES Performing Organization Address [facility] Co de Phone Number [facility] [address] * DX Knee 4+ Views (12/03/2014 [...] Nitrogen), S 18 8 - 24 MG/DL [facility] 11/13/2014 9:33 AM CDT 11/13/2014 9:33 AM CDT Veronique Arango M.D. LAB BLOOD ADD-ON Performing Organization Address City/[facility]/ZIP Co de Phone Number [facility] [address] * (ABNORMAL) Chloride (11/13/2014 9:33 AM CDT) Only the most recent of2 resultswithin the time period is included. Chloride, S 95(L) 98 - 107 MMOL/L [facility] 11/13/2014 9:33 AM CDT 11/13/2014 9:33 AM CDT Veronique Arango M.D. LAB BLOOD ADD-ON Performing Organization Address [facility] Co de Phone Number [facility] [address] * (ABNORMAL) Sedimentation Rate (09/04/2014 10:46 AM CDT) Sedimentation Rate, B 25(H) 0 - 22 MM/[address] [facility] 09/04/2014 10:4 6 AM CDT 09/04/2014 10:46 AM CDT Scooby Cabezas M.D. LAB BLOOD ADD-ON Performing Organization Address City/[facility]/ZIP Co de Phone Number [facility] [address] * Alkaline Phosphatase (09/04/2014 10:46 AM CDT) Alkaline Phosphatase, S 94 45 - 115 U/L [facility] 09/04/2014 10:4 6 AM CDT 09/04/2014 10:46 AM CDT Scooby Cabezas M.D. LAB BLOOD ADD-ON Performing Organization Address City/[facility]/ZIP Co de Phone Number [facility] [address] * PUL Home Overnight Oximetry (05/27/2014 10:29 PM LIQUID CHLORINE OPERATOR) 05/27/2014 10:2 9 PM LIQUID CHLORINE OPERATOR Historical Provider PFT ORDERABLES Performing Organization Address [facility] Co de Phone Number [facility] [address] * (ABNORMAL) Microalbumin, Random, Urine (05/27/2014 1:19 PM LIQUID CHLORINE OPERATOR) Albumin/Creatinin e Ratio 40(H) <17 MG/G [facility] Microalbumin 69.3 MG/L [facility] Creatinine 172 MG/DL [facility] 05/27/2014 1:19 PM LIQUID CHLORINE OPERATOR 05/27/2014 1:19 PM LIQUID CHLORINE OPERATOR Duke Marquez M.D. LAB URINE ORDERABLES Performing Organization Address [facility] Co de Phone Number [facility] [address] * (ABNORMAL) Glucose, Random (05/27/2014 12:54 PM LIQUID CHLORINE OPERATOR) Glucose, S 157(H) 70 - 140 MG/DL [facility] 05/27/2014 12:5 4 PM LIQUID CHLORINE OPERATOR 05/27/2014 12:54 PM LIQUID CHLORINE OPERATOR Duke Marquez M.D. LAB BLOOD TROPONIN Performing Organization Address City/[facility]/ZIP Co de Phone Number [facility] [address] * Pulmonary Function Tests (03/30/2002 9:39 AM LIQUID CHLORINE OPERATOR) 03/30/2002 9:39 AM LIQUID CHLORINE OPERATOR Elena Contreras M.D. PFT ORDERABLES Performing Organization Address City/State/[facility] Co de Phone Number [facility] [address] * CT Head with IV Contrast [...] ?? Kristian Keenan M.D. 30-Oct-2001 15:54 ?Marichuy [phone] [id number] 30-Oct-2001 15:54 Procedure Note David Keenan [...] by: Kristian Keenan M.D. 30-Oct-2001 15:54 Marichuy [phone] 30-Oct-2001 15:54 Mike Maldonado M.D. IMG CT [...] M.D. [id number] 30-Oct-2001 14:58 ?Nette Alvarenga [phone]([id number]) 30-Oct-2001 14:58 Procedure Note Mario Alberto Bowles M.D. - 07/22/2017 30-Oct-2001 13:04:00 Exam: -KUB w/tomos Indications: htn ORIGINAL REPORT - 30-Oct-2001 14:58:00 KUB with tomograms: No radiopaque renal stones. Left kidney measuresapproximately 15cm, and right kidney measures approximately 14 cm inlength. Electronically signed by: Gwendolyn Bowles M.D. [id number] 30-Oct-2001 14:58 Nette [phone]([id number]) 30-Oct-2001 14:58 Mike BOWMANG DIAGNOSTIC I MAGING PROCEDURES * Hx general Pathology Report (02/02/1994 10:28 AM CDT) 02/02/1994 10:2 8 AM CDT 02/02/1994 10:[address] [facility] - 02/02/1994 10:28 AM CDT [id number] Surgical Pathology Requested By: ? Galileo Dubon M.D. ?([id number]) ?? TISSUE DESCRIPTION: ?Tissue from the spine (L-5, right) ?? DIAGNOSIS: ?Disk and ligamentous tissue weighing 2.51 grams. ?? 02Feb1994 ?Mario Alberto Rivero M.D.:cubab Procedure Note 07/08/2017 02Feb1994 Surgical Pathology Requested By: Galileo Dubon M.D.([id number]) TISSUE DESCRIPTION: Tissue from the spine (L-5, right) DIAGNOSIS: Disk and ligamentous tissue weighing 2.51 grams. 02Feb1994 Mario Alberto Rivero M.D.:eab Marlene Dubon M.D. LAB PATHOLOGY/CYTOLO GY ORDERABLES Performing Organization Address [facility]/State/[facility] Co de Phone Number [facility] [address] Visit Diagnoses Diagnosis Start Date Apnea Sleep Obstructive 01/19/2018 Stone Kidney 07/25/2018 Stone Kidney 07/25/2018 Stone Kidney 07/25/2018 Stone Kidney 07/25/2018 Stone Kidney 07/25/2018 Stone Kidney 07/25/2018 Diabetes Mellitus Type 2 (HCC) 07/25/2018 Diabetes Mellitus Type 2 (HCC) 07/25/2018 Morbid Obesity Body Mass Index Greater Than Or Equal To 40 Adult ([facility]) 07/25/2018 Nephrolithiasis Calcium Oxalate 07/25/2018 Stones Uric Acid 07/25/2018 Proteinuria 07/25/2018 Hypertension Essential Primary 07/25/2018 Diabetes Mellitus Type 2 (HCC) 08/01/2018 Morbid Obesity Body Mass Index Greater Than Or Equal To 40 Adult ([facility]) 08/01/2018 Stones Uric Acid 08/01/2018 Stones Uric Acid 08/01/2018 Stone Kidney 12/12/2018 Stones Uric Acid 12/12/2018 Stones Uric Acid 12/12/2018 Diabetes Mellitus Type 2 (HCC) 12/12/2018 Morbid Obesity Body Mass Index Greater Than Or Equal To 40 Adult ([facility]) 12/12/2018 Nephrolithiasis 03/12/2019 Nephrolithiasis 03/12/2019 Stone Kidney And Ureteral 03/12/2019 Decline Functional Status 03/12/2019 Stone Kidney And Ureteral 03/26/2019 Preanesthetic Medical Exam 04/02/2019 Stone Kidney And Ureteral 04/02/2019 Hypertension And Chronic Kidney Disease Stage 3 04/02/2019 Chronic Kidney Disease Stage 3 Glomerular Filtration Rate 30 To 59 04/02/2019 Morbid Obesity Body Mass Index Greater Than Or Equal To 40 Adult ([facility]) 04/02/2019 Apnea Sleep Obstructive 04/02/2019 Stone Kidney And Ureteral 04/04/2019 Stone Kidney And Ureteral 04/04/2019 Stone Kidney 04/20/2019 Stone Kidney And Ureteral 05/07/2019 Stent Ureteral Indwelling 05/07/2019 Apnea Sleep Obstructive 08/09/2019 Apnea Sleep Obstructive 08/09/2019 Diabetes Mellitus Type 2 ([facility]) 08/09/2019 Hypertension And Chronic Kidney Disease Stage 3 08/09/2019 Morbid Obesity Body Mass Index Greater Than Or Equal To 40 Adult ([facility]) 08/09/2019 Apnea Sleep Obstructive 08/14/2020 Hypertension And Chronic Kidney Disease Stage 3 12/10/2020 Dysuria 12/10/2020 Hypertension And Chronic Kidney Disease Stage 3 12/11/2020 Hypertension And Chronic Kidney Disease Stage 3 12/11/2020 Dysuria 12/11/2020 Stones Uric Acid 12/11/2020 Nephrolithiasis 12/11/2020 Chronic Kidney Disease (CKD), Stage 3a Glomerular Filtration Rate (GFR) 45 To 59 ([facility]) 12/11/2020 Urinary Tract Infection Site Not Specified 12/11/2020 Diabetes Mellitus Type 2 ([facility]) 12/11/2020 Hematuria 12/12/2020 Pyuria 12/12/2020 Urinary Tract Infection Site Not Specified 12/12/2020 Deficiency Urethral Sphincter Intrinsic 12/12/2020 Neuromuscular Dysfunction Of Bladder Unspecified 12/12/2020 Other Specified Diabetes Mellitus With Diabetic Chronic Kidney Disease ([facility]) 12/12/2020 Hematuria 03/03/2021 Pyuria 03/03/2021 [...] Morbid Obesity Body Mass Index 45.0-49.9 Adult ([facility]) 05/09/2023 Malignant Neoplasm Of Colon [...] (HCC) 05/11/2023 Repeated Falls 05/11/2023 Care Teams Air Conditioning Technician Relationship Specialty Start Date End Date Elsewhere, Pcp PCP - General Internal Medicine 07/08/23
--- OUTSIDE RECORDS SUMMARY | 2023-10-12 03:03 | XMS_ITS | Referral Summary ---
Author Organization [facility] Address [address] [place] [address] Care Team Providers Care Cleat Feeder Name Role Phone Elsewhere, Pcp Primary Care Provider Unavailabl e Source Comments Patient records contain information from all sites at [facility]. For routine questions regarding patient records, call [phone] during business hours, M-F 8:00 AM - 5:00 PM Central Time. Record requests for emergency care only can be directed to [phone] at any time.[facility] Encounters Date Type Department Care Team Description 10/10/2023 CPAP Download Remote Patient Monitoring [facility] [address] [place] [address] [facility], Provider 09/09/2023 CPAP Download Remote Patient Monitoring [facility] [address] [place] [address] [facility], Provider 08/09/2023 CPAP Download Remote Patient Monitoring [facility] [address] [place] [address] [facility], Provider 08/08/2023 1:06 PM CDT - 08/08/2023 11:59 PM CDT Hospital Encounter Department of Radiology, [facility], in [place], [place] [address] [place] [phone] Mario Alberto Navarro P.A.-C., M.S. Wilner Casas [...] 150 beats. 02/06 - day mobile cardiac color television console monitor: underlying rhythm of sinus, intermittent sinus [...] 4. Electronically signed by: Kimi Manzano M.D. [phone] 10-Aug-2016 12:45 Failed Gabapentin in 12/2022. Switched [...] - MODE RNA (12 YEARS AND OLDER) [id number] 02/18/2023 Td (Adult), adsorbed 04/02/2019(Deferred : Other [...] alcohol) rarely, one or two a year [facility] Utilities Answer Date Recorded In the [...] 12/31/2021 How often do you attend [facility] or restorationism services? More than 4 times per year [...] and heating? Not hard at all 02/11/2023 [facility] Occupational Stress Questionnaire Answer Date Recorded [...] living situation today? I have a [facility] place to live 05/12/2023 Education Answer Date Recorded What is the highest level of school you have completed or the highest degree you have received? Bachelor's degree (e.g., BA, AB, BS) 09/20/2018 Sex and Gender Information Value Date Recorded Sex Assigned at Male 06/14/2018 8:36 PM MACHINE LONG GOODS HELPER Gender Identity Male 10/11/2022 10:17 PM CDT Sexual Orientation Choose not to disclose 2019 1:31 PM MACHINE LONG GOODS HELPER Last Filed Vital Signs Vital Sign Reading [...] 185 cm (6' 0.84) 05/11/2023 2:15 PM MACHINE LONG GOODS HELPER Body Mass Index 55.11 05/11/2023 2:15 PM MACHINE LONG GOODS HELPER Plan of Treatment Not on file Medical Devices Explanted Type Area Electron Tube Assembler Device Identifier Shelf Expiration Date Model / Serial / Lot Stnt Uret Inl 6fx26 - [id number] Implanted:Qty : 1 on 04/04/2019 by Julian Mayfield M.D. at [facility] Ureteral Stent Right: Ureter [employer].Bard [id number] 01/25/2022 [id number] / / [id number] Stnt Uret Inl 7fx26 - [id number] Implanted:Qty : 1 on 03/12/2019 by Ashkan Villanueva M.D. at [facility] Explanted: by Keith Lovelace APRN, C.N.P., M.S.N. 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 NR Narrative [id number] - 08/08/2023 2:43 PM CDT EXAM: FL [...] felt to best approximate that of an [id number]. Prior right L4 injection did not provide [...] IMG FLUO ROSCOPY PROCEDURES Performing Organization Address [facility] Co de Phone Number [id number] NA * (ABNORMAL) Hemoglobin A1c (05/11/2023 3:18 PM MACHINE LONG GOODS HELPER) Hemoglobin A1c, B 6.5(H) 4.0 - 5.6 % 05/11/2023 5:35 PM MACHINE LONG GOODS HELPER DTL Comment: Hemoglobin A1c values greater than or equal to 6.5 percent are diagnostic for diabetes mellitus. ??Diagnosis should be confirmed by repeat testing. ??In diabetic patients, HbA1c goals should be discussed with healthcare provider. Blood (Blood, Venous) 05/11/2023 3:18 PM MACHINE LONG GOODS HELPER 05/11/2023 3:27 PM MACHINE LONG GOODS HELPER Delma Ramirez APRN C.N.PAjit, D.N.P. LAB BLOOD ADD-ON Performing Organization Address [facility] Co de Phone Number [facility] [address] [place] [address], [facility] DTL [facility] [address] [place] [address] * CT Abdomen Pelvis with IV Contrast (04/18/2023 2:12 PM MACHINE LONG GOODS HELPER) Anatomical Region Laterality Modality Abdomen, Pelvis, Abdominal R ST LOS, Abdominal ARZ LOS, Abdominal FLA LOS N/A Computed Tomography 04/18/2023 2:08 PM MACHINE LONG GOODS HELPER Impressions 04/18/2023 4:14 PM MACHINE LONG GOODS HELPER 1. Limited/incomplete CT imaging of lateral right [...] kidneys and pancreas. Narrative 04/18/2023 4:14 PM MACHINE LONG GOODS HELPER EXAM: CT ABDOMEN PELVIS WITH IV CONTRAST [...] the lateral right abdomen not included within [id number]. Within this limitation, no evidence of bowel [...] of the lateral rightabdomen not included within [id number]. Within this limitation, noevidence of bowel obstruction, [...] (Thyroid-Stimulating Hormone - Sensitive) (02/20/2023 2:34 AM MACHINE LONG GOODS HELPER) Pathologist [facility] TSH, Sensitive 0.9 0.3 - 4.2 mIU/L 02/20/2023 4:20 AM MACHINE LONG GOODS HELPER DTL Blood (Blood, Venous) 02/20/2023 2:34 AM MACHINE LONG GOODS HELPER 02/20/2023 2:54 AM MACHINE LONG GOODS HELPER Peter Alva M.D., M.S. LAB BLOOD ADD -ON [facility] [address] [facility] [address] [place] [address] * Microalbuminuria, 24 Hour, Urine (08/13/2015 10:01 AM CDT) Pathologist [facility] 24 Hour Excretion <9 <30 MG/24 H [facility] Albumin Excretion Rate <6 <20 MCG/MIN [facility] Albumin Concentration <5.0 MG/L [facility] Collection Duration 24 H [facility] Urine Volume [id number] ML [facility] 08/13/2015 10:0 1 AM CDT 08/13/2015 10:01 AM CDT Scooby Cabezas M.D. LAB URINE ORDERABLES [facility] [address] from Last 3 Months or Most Recently Relevant to Health Maintenance Advance Directives For more information, please contact: [phone] Documents on File Type Date Recorded Patient Technology And Engineering Teacher Expl anation Advance Directives 05/02/2023 2:48 PM [...] Olivera Spouse Health Care Agent Care Teams Cleat Feeder Relationship Specialty Start Date End Date Elsewhere, Pcp PCP - General Internal Medicine 07/08/23
--- OUTSIDE RECORDS SUMMARY | 2023-10-12 03:03 | XMS_ITS ---
Author Organization [facility] Address [address] [place] [address] Care Team Providers Care Batcher Operator Name Role Phone Elsewhere, Pcp Primary [...] 150 beats. 02/06 - day mobile cardiac ekg monitor tech: underlying rhythm of sinus, intermittent [...] treatments are documented for this patient in [facility]. Treatments may have been administered in [...]
--- OUTSIDE RECORDS SUMMARY | 2023-10-12 03:03 | XMS_ITS ---
Author Organization [facility] Address [address] [place] [address] Care Team Providers Care Preschool Assistant Director Name Role Phone Unavailable Unavailable Unavailable Surgery Details Not on file Complications Check Surgery Details section. Procedure Estimated Blood Loss Check Surgery Details section. Procedure Findings Check Surgery Details section. Procedure Specimens Taken Check Surgery Details section.
--- OUTSIDE RECORDS SUMMARY | 2023-10-12 03:04 | XMS_ITS | Encounter Summary ---
Author Organization [facility] Address [address] [place] [address] Care Team Providers Care Salvage Machine Operator Name Role Phone Elsewhere, Pcp Primary Care Provider Unavailabl e Encounter Details Date Type Department Care Team (Late st Contact Info) Description 06/08/2023 CPAP Download Remote Patient Monitoring [facility] [address] [place] [address] [facility], Provider Social History Tobacco Use Types Packs/Day Years Used Date Smoking Tobacco: Former Cigarettes 2 18 0 09/16/1966 - 06/30/1984 Passive Smoke Exposure: Past Smokeless Tobacco: Never Alcohol Use Standard Drinks/Week Comments Not Currently 0 (1 standard drink = 0.6 oz pur e alcohol) rarely, one or two a year [facility] Utilities Answer Date Recorded In the past [address] [facility] [email or web address], gas, oil, or water [employer] threatened to shut off services in your [...] and heating? Not hard at all 02/11/2023 [facility] of Occupat ional Health - Occupational [...] Sex Assigned at Male 06/14/2018 8:36 PM GIFT SHOP CLERK Gender Identity Male 10/11/2022 10:17 PM CDT Sexual Orientation Choose not to disclose 2019 1:31 PM GIFT SHOP CLERK documented as of this encounter Plan of Treatment Not on file documented as of this encounter Visit Diagnoses Not on filedocumented in this encounter Additional Health Concerns Assessment Noted Time PHQ-9 Depression Total Score: 7 09/04/19 16 9:47 AM CDT documented as of this encounter Care Teams Salvage Machine Operator Relationship Specialty Start Date End Date Elsewhere, Pcp PCP - General Internal Medicine 07/08/23 documented as of this encounter
--- OUTSIDE RECORDS SUMMARY | 2023-10-12 03:04 | XMS_ITS | Encounter Summary ---
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 [address] [place] [address] [facility] Referral ID Status Reason Start Date Expiration Date Visits Re quested Visits Authorized [id number] Closed 06/03/2023 06/02/2024 1 1 Encounter Details Date Type Department Care Team (Latest Contact Info) Description 08/08/2023 1:06 PM CDT - 08/08/2023 11:59 PM CDT Hospital Encounter Department of Radiology, [facility], in [place], [place] [address] [place] [address] Mario Alberto Navarro P.A.-C., M.S. [address] [place] [address] Wilner Casas M.D. 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 More than 4 times per year 12/31/2021 Do you belong to any clubs o r organizations such as mandaen groups, unions, fraternal or athletic groups, or [...] and heating? Not hard at all 02/11/2023 [facility] [place] of Occupat ional Health - Occupational Stress [...] situation today? I have a [facility] place to live 05/12/2023 Education Answer Date Recorded What is the highest level of school you have completed or the highest degree you have received? Bachelor's degree (e.g., BA, AB, BS) 09/20/2018 Sex and Gender Information Value Date Recorded Sex Assigned at Male 06/14/2018 8:36 PM HOSPICE MUSIC THERAPIST Gender Identity Male 10/11/2022 10:17 PM CDT Sexual Orientation Choose not to disclose 2019 1:31 PM HOSPICE MUSIC THERAPIST documented as of this encounter Last Filed [...] Injection Right (08/08/2023 2:08 PM CDT) Impressions [id number] - 08/08/2023 2:43 PM CDT Fluoroscopically-guided transforaminal epidural steroid injection. NR Narrative [id number] - 08/08/2023 2:43 PM CDT EXAM: FL [...] felt to best approximate that of an [id number]. Prior right L4 injection did not provide [...] Navarro P.A.-C., M.S. IMG FLUO ROSCOPY PROCEDURES [id number] NA documented in this encounter Visit Diagnoses [...] documented as of this encounter Care Teams Blending Kettle Tender Relationship Specialty Start Date End Date Elsewhere, Pcp PCP - General Internal Medicine 07/08/23 documented as of this encounter
--- OUTSIDE RECORDS SUMMARY | 2023-10-12 03:04 | XMS_ITS | Encounter Summary ---
Author Organization [facility] Address [address] [place] [address] Care Team Providers Care Casino Host Name Role Phone Elsewhere, Pcp Primary Care Provider Unavailabl e Encounter Details Date Type Department Care Team (Late st Contact Info) Description 04/07/2023 CPAP Download Remote Patient Monitoring [facility] [address] [place] [address] [facility], Provider Social History Tobacco Use Types Packs/Day Years Used Date Smoking Tobacco: Former Cigarettes 2 18 0 09/16/1966 - 06/30/1984 Passive Smoke Exposure: Past Smokeless Tobacco: Never Alcohol Use Standard Drinks/Week Comments Not Currently 0 (1 standard drink = 0.6 oz pur e alcohol) rarely, one or two a year [facility] Utilities Answer Date Recorded In the past 12 months has e [employer], gas, oil, or water [employer] threatened to shut off services in your [...] How often do you attend chur or mandaen services? More than 4 times per year [...] all 02/11/2023 [facility] of Occupat ional Health - [...] your living situation today? I have a [facility] place to live 05/12/2023 Education Answer Date Recorded What is the highest level of school you have completed or the highest degree you have received? Bachelor's degree (e.g., BA, AB, BS) 09/20/2018 Sex and Gender Information Value Date Recorded Sex Assigned at Male 06/14/2018 8:36 PM ICE CREAM FREEZER Gender Identity Male 10/11/2022 10:17 PM CDT Sexual Orientation Choose not to disclose 2019 1:31 PM ICE CREAM FREEZER documented as of this encounter Plan of Treatment Not on file documented as of this encounter Visit Diagnoses Not on filedocumented in this encounter Additional Health Concerns Infection Onset Date Last Indicated Resolved Time COVID19 Pending 04/18/2023 04/18/2023 04/18/2023 3 :59 PM ICE CREAM FREEZER COVID19 Pending 05/15/2023 05/15/2023 05/15/2023 1 1:56 PM ICE CREAM FREEZER COVID19 05/15/2023 05/15/2023 06/04/2023 6:10 AM ICE CREAM FREEZER Assessment Noted Time PHQ-9 Depression Total Score: 7 09/04/19 16 9:47 AM CDT documented as of this encounter Care Teams Casino Host Relationship Specialty Start Date End Date Elsewhere, Pcp PCP - General Internal Medicine 07/08/23 documented as of this encounter
--- OUTSIDE RECORDS SUMMARY | 2023-10-12 03:04 | XMS_ITS | Encounter Summary ---
Author Organization [facility] Address [address] [place] [address] Care Team Providers Care Brick And Block Mason Name Role Phone Eli Rondon APRN, C.NBri., R.N. Primary Care Provider Reason for Visit * Reason Onset Date Comments Appt Video 06/06/2023 Encounter Details Date Type Department Care Team (Late st Contact Info) Description 06/06/2023 Clinical Communication Department of Oncology in [place], [place] [address] [place] [phone] Brenda Delgadillo M.D. [address] [place] [phone] Appt Video Social History Tobacco Use Types Packs/Day Years Used Date Smoking Tobacco: Former Cigarettes 2 18 0 09/16/1966 - 06/30/1984 Passive Smoke Exposure: Past Smokeless Tobacco: Never Alcohol Use Standard Drinks/Week Comments Not Currently 0 (1 standard drink = 0.6 oz pur e alcohol) rarely, one or two a year [facility] Utilities Answer Date Recorded In [...] and heating? Not hard at all 02/11/2023 [facility] [place] of Occupat ional Health - Occupational Stress [...] your living situation today? I have a [facility] place to live 05/12/2023 Education Answer Date Recorded What is the highest level of school you have completed or the highest degree you have received? Bachelor's degree (e.g., BA, AB, BS) 09/20/2018 Sex and Gender Information Value Date Recorded Sex Assigned at Male 06/14/2018 8:36 PM ERECTING ENGINEER Gender Identity Male 10/11/2022 10:17 PM CDT Sexual Orientation Choose not to disclose 2019 1:31 PM ERECTING ENGINEER documented as of this encounter Miscellaneous Notes * Telephone Encounter - Brenda Delgadillo M.D. - 06/08/2023 11:42 AM CST Video consult is okay in this case. But moving forward, please be aware that for most new patients,we do need in-person visit! TING ENGINEER documented in this encounter Plan of Treatment Not on file documented as of this encounter Visit Diagnoses Not on filedocumented in this encounter Additional Health Concerns Assessment Noted Time PHQ-9 Depression Total Score: 7 09/04/19 16 9:47 AM CDT documented as of this encounter Care Teams Brick And Block Mason Relationship Specialty Start Date End Date Eli Rondon APRN, C.N.P., R.N. [address] [place] [phone] PCP - General Family Medicine 04/27/23 07/07/23 documented as of this encounter
--- OUTSIDE RECORDS SUMMARY | 2023-10-12 03:04 | XMS_ITS | Clinical Summary ---
Author Organization [facility] Address [place], [place] [address] Care Team Providers Care Nascar Pit Crew Person Name Role Phone Grzegorz Wiggins MD Primary Care Provider [phone] [facility], [place] Unavailable Allergies Active Allergy Reactions Criticality Noted Date [...] Bariatric four wheel walker with a seat. [facility]. [phone] 1 Each 02/09/20 22 Active [facility] CONTOUR [...] reports on 04/15/[address] Dasilva of [place] and Dr. Sousa of [facility] have both given him the ok [...] Type Department Care Team Description 10/10/2023 Telephone [facility] [address] [place] [address] Heaven Callaway, KATHLEEN Edema 10/10/2023 Nurse Triage [facility] [address] [place] [address] Grzegorz Wiggins MD Penis/Scrotum Problem 09/28/2023 Refill [facility] [address] [place] [address] Grzegorz Wiggins MD Refill Request (Lantus Solostar U-100 Insulin, Tamsulosin) 09/16/2023 Refill [facility] [address] [place] [address] Grzegorz Wiggins MD Refill Request (Furosemide) 09/14/2023 Telephone [facility] [address] [place] [address] Mary Anne Garibay NP Refill Request (Spironolactone) 09/09/2023 Orders Only [facility] [address] [place] [address] Grzegorz Wiggins MD Lab 09/07/2023 Refill [facility] [address] [place] [address] Mary Anne Garibay NP Refill Request (Spironolactone, Furosemide) 09/06/2023 7:15 AM CDT Orders Only [address] [address] Lab, [place] Lab 09/06/2023 Orders Only [address] [address] Phylicia Yip, DO <No scans attached> 09/06/2023 Travel 09/05/2023 E-Visit [address] [address] Grzegorz Wiggins MD Urinalysis 09/02/[address] [address] Grzegorz Wiggins MD fyi (discharged) 08/19/2023 8:50 AM CDT Telemedicine [address] [address] Grzegorz Wiggins MD Medication Management; Knee Pain/problem 08/19/[address] [address] Grzegorz Wiggins MD Medication Management (glipiZIDE (GLUCOTROL) 5 mg tablet) 08/11/2023 Orders Only [facility] Scanner 1 scan: (1-Ord) [place], CT-CHEST/ABD/PELVIS W/O, 08/11/2023 07/23/[address] [address] Grzegorz Wiggins MD Refill Request (Spironolactone) 07/20/[address] [address] Grzegorz Wiggins MD in error 07/15/2023 Telephone [facility] [address] [place] [address] Grzegorz Wiggins MD Follow Up 07/13/2023 Telephone [facility] [address] [facility] [address] Grzegorz Wiggins MD Questions 07/12/2023 3:10 PM CDT Telemedicine [facility] [address] [place] [address] Grzegorz Wiggins MD [facility] care follow up (Patient was at [facility] following his hospital stay - 05/11/2023 admitted to [facility]) from Last 3 Months Immunizations Name Administration Dates Next Due AMB Influenza, IIV3 (Age >=3 years)(Flu Clinic Only) 04/12/2008 COVID-19 vaccine (Pfizer-Bio NTech 30mcg/0.3mL) 12YO+ BIVALENT PF, MDV 03/08/2022 COVID-19 vaccine (Pfizer-Bio NTech 30mcg/0.3mL) 12YO+ LEATHA-SUCROSE PF, MDV 10/05/2021 COVID-19 vaccine (Pfizer-Bio NTech 30mcg/0.3mL) PF, MDV 07/05/2020,06/14/2020 Covid-19 Vaccine (Moderna 25MCG/0.25ML) 6MO-[id number] Formula PF, SDV 02/18/2023,03/08/2022 DT (Age < [...] Description 11/18/2023 8:00 AM CDT Office Visit [facility] [address] [place] [address] Grzegorz Wiggins MD [address] [place] [address] Health Maintenance Due Date Last Done Comments [...] STONE PROTOCOL WO Routine 04/15/2021 12:00 AM ARBOR END MAINSPRING FORMER Recurrent UTI from Last 3 Months or Most Recently Relevant to Health Maintenance Results * (ABNORMAL) CBC WITH AUTO DIFFERENTIAL (09/09/2023 11:00 AM CDT) WHITE BLOOD COUNT 7.0 4.5 - 11.0 thou/cu mm 09/09/2023 4:50 PM CDT [facility] RED BLOOD COUNT 4.10(L) 4.30 - 5.90 mil/cu mm 09/09/2023 4:50 PM CDT [facility] HEMOGLOBIN 9.2(L) 13.5 - 17.5 g/dL 09/09/2023 4:50 PM CDT [facility] HEMATOCRIT 30.8(L) 37.0 - 53.0 % 09/09/2023 4:50 PM CDT [facility] MCV 75(L) 80 - 100 fL 09/09/2023 4:50 PM CDT [facility] MCH 22.4(L) 26.0 - 34.0 pg 09/09/2023 4:50 PM CDT [facility] MCHC 29.9(L) 32.0 - 36.0 g/dL 09/09/2023 4:50 PM CDT [facility] RDW 20.8(H) 11.5 - 15.5 % 09/09/2023 4:50 PM CDT [facility] PLATELET COUNT 270 140 - 440 thou/cu mm 09/09/2023 4:50 PM CDT [facility] MPV 10.2 6.5 - 11.0 fL 09/09/2023 4:50 PM CDT [facility] NRBC 0.0 % 09/09/2023 4:50 PM CDT [facility] ABS NRBC 0.0 thou /cu mm 09/09/2023 4:50 PM CDT [facility] % NEUT 60.4 % 09/09/2023 4:50 PM CDT [facility] % LYMPH 25.0 % 09/09/2023 4:50 PM CDT [facility] % MONO 6.7 % 09/09/2023 4:50 PM CDT [facility] % EOS 6.8 % 09/09/2023 4:50 PM CDT [facility] % BASO 0.7 % 09/09/2023 4:50 PM CDT [facility] % IMMATURE GRAN (METAS,MYELOS,WY OS) 0.4 % 09/09/2023 4:50 PM CDT [facility] ABSOLUTE NEUTROPHILS 4.3 1.7 - 7.0 thou/cu mm 09/09/2023 4:50 PM CDT [facility] ABSOLUTE LYMPHOCYTES 1.8 0.9 - 2.9 thou/cu mm 09/09/2023 4:50 PM CDT [facility] ABSOLUTE MONOCYTES 0.5 <0.9 thou/cu mm 09/09/2023 4:50 PM CDT [facility] ABSOLUTE EOSINOPHILS 0.5(H) <0.5 thou/cu mm 09/09/2023 4:50 PM CDT [facility] ABSOLUTE BASOPHILS 0.1 <0.3 thou/cu mm 09/09/2023 4:50 PM CDT [facility] ABSOLUTE IMMATURE GRANULOCYTES(MET ,MYELOS,PROS) 0.0 <0.3 thou/cu mm 09/09/2023 4:50 PM CDT [facility] Blood BLOOD SPECIMEN / Unknown Non-Lab Venipuncture / Unknown 09/09/2023 11:00 AM CDT 09/09/2023 3:41 PM CDT [facility] - 09/09/2023 4:50 PM CDT This procedure was originally ordered at [facility]. Grzegorz Wiggins MD HEMATOLOGY [facility] [address] [address], [place] * (ABNORMAL) RED CELL MORPHOLOGY (09/09/2023 11:00 AM CDT) Pathologist [facility] ELLIPTOCYTES Few 09/09/2023 4:50 PM CDT [facility] POLYCHROMASIA Slight 09/09/2023 4:50 PM CDT [facility] RBC COMMENT Present(A) RBC morphology appears normal, RBC morphology within normal limits for newborns. 09/09/2023 4:50 PM CDT [facility] Blood BLOOD SPECIMEN / Unknown Non-Lab Venipuncture / Unknown 09/09/2023 11:00 AM CDT 09/09/2023 3:41 PM CDT Narrative [facility] - 09/09/2023 4:50 PM CDT This procedure was originally ordered at [facility]. Grzegorz Wiggins MD HEMATOLOGY [facility] [address] [address], [place] * (ABNORMAL) PLATELET ESTIMATE (09/09/2023 11:00 AM CDT) [facility] PLATELET ESTIMATE Platelets are clumped and appear adequate in number(A) Adequate, No estimate 09/09/2023 4:50 PM CDT [facility] Blood BLOOD SPECIMEN / Unknown Non-Lab Venipuncture / Unknown 09/09/2023 11:00 AM CDT 09/09/2023 3:41 PM CDT Narrative [facility] - 09/09/2023 4:50 PM CDT This procedure was originally ordered at [facility]. Grzegorz Wiggins MD HEMATOLOGY [facility] [address] [address], [place] * (ABNORMAL) BASIC METABOLIC PANEL (09/09/2023 11:00 AM CDT) [facility] SODIUM 139 136 - 145 mmol/L 09/09/2023 4:51 PM T [facility] POTASSIUM 4.4 3.5 - 5.1 mmol/L 09/09/2023 4:51 PM T [facility] CHLORIDE 103 98 - 107 mmol/L 09/09/2023 4:51 PM T [facility] CO2,TOTAL 24 22 - 29 mmol/L 09/09/2023 4:51 PM T [facility] ANION GAP 12 5 - 18 09/09/2023 4:51 PM T [facility] GLUCOSE 152(H) 70 - 99 mg/dL 09/09/2023 4:51 PM T [facility] CALCIUM 8.9 8.8 - 10.2 mg/dL 09/09/2023 4:51 PM [facility] BUN 30(H) 8 - 23 mg/dL 09/09/2023 4:51 PM T [facility] CREATININE 1.54(H) 0.70 - 1.20 mg/dL 09/09/2023 4:51 PM T [facility] BUN/CREAT RATIO 19 10 - 20 4:51 PM T [facility] eGFR 48(L) >90 mL/min/1.7 3m2 09/09/2023 4:51 PM T [facility] Comment:As of 2021, eG [...] 3:41 PM CDT Grzegorz Wiggins MD CHEMISTRY [facility] [address] [address], [place] * URINALYSIS MICROSCOPIC (09/06/2023 7:22 AM CDT) RBC None Seen 0-2, None Seen /HPF 09/06/2023 7:31 AM CDT [facility] WBC 0-2 0-2, 3-5, None Seen /HPF 09/06/2023 7:31 AM CDT [facility] BACTERIA Few None Seen, Rare, Few Bacteria/ HPF 09/06/2023 7:31 AM CDT [facility] EPITHELIAL CELLS None Seen None Seen, Few Epi/HPF 09/06/2023 7:31 AM CDT [facility] Urine URINE SPECIMEN / Unknown Non-Blood / Unknown 09/06/2023 7:22 AM CDT 09/06/2023 7:22 AM CDT Phylicia Yip DO URINE Performing Organization Address City/[facility]/ZIP Co de Phone Number [facility] [address] [place] [address], * URINE CULTURE (09/06/2023 7:22 AM CDT) CULTURE <10,000 CFU/mL multiple organisms 09/07/2023 1:36 PM CDT [facility] Urine URINE SPECIMEN / Unknown Non-Blood / Unknown 09/06/2023 7:22 AM CDT 09/06/2023 7:22 AM CDT Phylicia Yip DO MICROBIOLOGY [facility] [address] [address], [place] * (ABNORMAL) UA W/ SEDIMENT EXAM REFLEXED PER CRITERIA (09/06/2023 7:22 AM CDT) COLOR Yellow Yellow Color 09/06/2023 7:31 AM CDT [facility] CLARITY Clear Clear Clarity 09/06/2023 7:31 AM CDT [facility] SPECIFIC GRAVITY,URINE 1.025 1.010, 1.015, 1.020, 1.025 09/06/2023 7:31 AM CDT [facility] PH,URINE 5.5 6.0, 7.0, 8.0, 5.5, 6.5, 7.5, 8.5 09/06/2023 7:31 AM CDT [facility] UROBILINOGEN, QUALITATIVE Normal Normal EU/dl 09/06/2023 7:31 AM CDT [facility] PROTEIN, URINE Negative Negative mg/dL 09/06/2023 7:31 AM CDT [facility] GLUCOSE, URINE Negative Negative mg/dL 09/06/2023 7:31 AM CDT [facility] KETONES,URINE Negative Negative mg/dL 09/06/2023 7:31 AM CDT [facility] BILIRUBIN,URI NE Negative Negative 09/06/2023 7:31 AM CDT [facility] OCCULT BLOOD,URINE Negative Negative 09/06/2023 7:31 AM CDT [facility] NITRITE Negative Negative 09/06/2023 7:31 AM CDT [facility] LEUKOCYTE ESTERASE Trace(A) Negative 09/06/2023 7:31 AM CDT [facility] Urine URINE SPECIMEN / Unknown Non-Blood / Unknown 09/06/2023 7:22 AM CDT 09/06/2023 7:22 AM CDT Phylicia Yip DO URINE [facility] [address] [place] [address], * SCAN-CT INTERPRETATION (08/11/2023 12:00 AM CDT) [...] - 199 mg/dL 10/02/2022 12:32 AM CDT [facility] [employer] [facility] Comment: Cholesterol, Total Reference Ranges Desirable <200 mg/dL Borderline 200-239 mg/dL High >=240 mg/dL TRIGLYCERIDES 97 <150 mg/dL 10/02/2022 12:32 AM CDT [facility] HDL CHOLESTEROL 29(L) >40 mg/dL 12:32 AM CDT [facility] NON-HDL CHOLESTEROL 69 <145 mg/dl 10/02/2022 12:32 AM CDT [facility] CHOL/HDL RATIO 3.38 <4.50 10/02/2022 12:32 AM CDT [facility] LDL CHOLESTEROL 50 <=130 mg/dL 10/02/2022 12:32 AM CDT [facility] VLDL CHOLESTEROL 19 <=30 mg/dL 10/02/2022 12:32 AM CDT [facility] PROVIDER ORDERED STATUS RANDOM 10/02/2022 12:32 AM CDT [facility] Blood BLOOD SPECIMEN / Unknown Venipuncture / Unknown 10/01/2022 1:35 PM CDT 10/01/2022 1:35 PM CDT Grzegorz Wiggins MD CHEMISTRY [facility] [address] [place] [address], * ANTI HCV (12/08/2021 9:26 AM CDT) HEPATITIS C ANTIBODY Non-React nicho Non-React nicho 12/08/2021 7:57 PM CDT [facility] Comment:Antibodies to HCV no t detected; does not exclude the possibility of exposure to HCV. Blood BLOOD SPECIMEN / Unknown Venipuncture / Unknown 12/08/2021 9:26 AM CDT 12/08/2021 9:26 AM CDT Grzegorz Wiggins MD SEND OUTS [facility] [address] [place] [address], [place] * CT ABDOMEN PELVIS STONE PROTOCOL WO (04/15/2021 12:00 AM ARBOR END MAINSPRING FORMER) Anatomical Region Laterality Modality Abdomen, Pelvis, AORTA, [...] Preferences, Provider to review later Care Teams Nascar Pit Crew Person Relationship Specialty Start Date End Date Grzegorz Wiggins MD Janis Gaytanerson [place] [id number] PCP - General Family Practice 04/05/19 [place] [id number] [place] [address] 02/01/22
--- OUTSIDE RECORDS SUMMARY | 2023-10-12 03:04 | XMS_ITS | Encounter Summary ---
Author Organization [facility] Address [address] [place] [address] Care Team Providers Care Copywriting Intern Name Role Phone Elsewhere, Pcp Primary Care Provider Unavailabl e Encounter Details Date Type Department Care Team (Late st Contact Info) Description 06/29/2023 Clinical Communication Department of Oncology in [place], [place] [address] [place] [phone] Zan Rodriguez, Breanne.-C., M.S. [address] [place] [phone] Social History Tobacco Use Types Packs/Day Years Used Date Smoking Tobacco: Former Cigarettes 2 18 0 09/16/1966 - 06/30/1984 Passive Smoke Exposure: Past Smokeless Tobacco: Never Alcohol Use Standard Drinks/Week Comments Not Currently 0 (1 standard drink = 0.6 oz pur e alcohol) rarely, one or two a year [facility] Utilities Answer Date Recorded In the past [...] week 12/31/2021 How often do you attend [facility] or mosque services? More than 4 times per year [...] and heating? Not hard at all 02/11/2023 [facility] ional Health - Occupational [...] your living situation today? I have a [facility] place to live 05/12/2023 Education Answer Date Recorded What is the highest level of school you have completed or the highest degree you have received? Bachelor's degree (e.g., BA, AB, BS) 09/20/2018 Sex and Gender Information Value Date Recorded Sex Assigned at Male 06/14/2018 8:36 PM LEATHER DRESSER Gender Identity Male 10/11/2022 10:17 PM CDT Sexual Orientation Choose not to disclose 2019 1:31 PM LEATHER DRESSER documented as of this encounter Miscellaneous Notes [...] documented as of this encounter Care Teams Copywriting Intern Relationship Specialty Start Date End Date Elsewhere, Pcp PCP - General Internal Medicine 07/08/23 documented as of this encounter
--- OUTSIDE RECORDS SUMMARY | 2023-10-12 03:04 | XMS_ITS | Encounter Summary ---
Author Organization [facility] Address [address] [place] [address] Care Team Providers Care Sleep Tech Name Role Phone Eli Rondon APRN, C.NBri., R.N. Primary Care Provider Reason for Visit * Reason Comments Routine Residential Visit Discharge vis it. Encounter Details Date Type Department Care Team (Latest Contact Info) Description 07/05/2023 10:00 AM CDT External Outreach [facility] [place] [address] [place] [phone] John Lerner M.D. [address] [place] [phone] Colectomy Partial Status Post (Primary Dx); Malignant [...] alcohol) rarely, one or two a year [facility] Utilities Answer Date Recorded In the [...] often do you attend chur ch or evangelical services? More than 4 times per year [...] and heating? Not hard at all 02/11/2023 [facility] [place] of Occupat ional Health - Occupational Stress [...] Assigned at Male 06/14/2018 8:36 PM DIRECTOR ADULT Gender Identity Male 10/11/2022 10:17 PM CDT Sexual Orientation Choose not to disclose 2019 1:31 PM DIRECTOR ADULT documented as of this encounter Last Filed [...] Body Mass Index 55.11 05/11/2023 2:15 PM DIRECTOR ADULT documented in this encounter Progress Notes * John Lerner M.D. - 07/05/2023 10:00 AM CDT SUBJECTIVE CHIEF COMPLAINT / REASON FOR VISIT I am asked to see jessika Charl[place], [place] for a Discharge visit. Visit Type: [...] for discharge visit. He was admitted to [facility] on 05/16/2023 for short-term rehabilitation. He was admitted to [facility] from 05/11/2023 through 05/16/2023 secondary [...] Care unit for short-term rehabilitation. During his prison stay, he was tested positive for COVID-19 infection. However he was asymptomatic without upper respiratory infection symptoms. He followed prison isolation protocol accordingly. He has history of type 2 diabetes. During the hospitalization at [facility], his Lantus dose was reduced. He was noted to have hyperglycemia on his prison stay. We gradually adjustedthe Lantus dose accordingly. [...] increasing leg edema whenhe was in the prison. He was taking spironolactone 25 mg once [...] 2 weeks after being discharged from the assisted facility. 7. Right heel open wound. The [...] He follows up with orthopedic service at [facility] for managing his pain. We [...] his PCP in 2 weeks for post prison stay. FACE TO FACE DOCUMENTATION Patient has been prescribed home PT and OT at [facility]'s therapy department for continued balance, strengthening, and [...] documented as of this encounter Care Teams Sleep Tech Relationship Specialty Start Date End Date Eli Rondon APRN, C.N.P., R.N. [address] [place] [phone] PCP - General Family Medicine 04/27/23 07/07/23 documented as of this encounter
--- OUTSIDE RECORDS SUMMARY | 2023-10-12 03:04 | XMS_ITS | Encounter Summary ---
Author Organization [facility] Address [address] [place] [address] Care Team Providers Care Baby Nurse Name Role Phone Elsewhere, Pcp Primary [...] alcohol) rarely, one or two a year [facility] Utilities Answer Date Recorded In the past 12 months has e electric, gas, oil, or water [employer] threatened to shut off services in your [...] often do you attend chur ch or methodist services? More than 4 times per year 12/31/2021 Do you belong to any clubs o r organizations such as presybeterian groups, unions, fraternal or athletic groups, or [...] and heating? Not hard at all 02/11/2023 [facility] of Occupat ional Health - Occupational Stress [...] your living situation today? I have a [facility] place to live 04/22/2023 Education Answer Date Recorded What is the highest level of school you have completed or the highest degree you have received? Bachelor's degree (e.g., BA, AB, BS) 09/20/2018 Sex and Gender Information Value Date Recorded Sex Assigned at Male 06/14/2018 8:36 PM HALL CLERK Gender Identity Male 10/11/2022 10:17 PM CDT Sexual Orientation Choose not to disclose 2019 1:31 PM HALL CLERK documented as of this encounter Plan of Treatment Not on file documented as of this encounter Visit Diagnoses Not on filedocumented in this encounter Additional Health Concerns Infection Onset Date Last Indicated Resolved Time COVID19 Pending 05/15/2023 05/15/2023 05/15/2023 1 1:56 PM HALL CLERK COVID19 05/15/2023 05/15/2023 06/04/2023 6:10 AM HALL CLERK Assessment Noted Time PHQ-9 Depression Total Score: 7 09/04/19 16 9:47 AM CDT documented as of this encounter Care Teams Baby Nurse Relationship Specialty Start Date End Date Elsewhere, Pcp PCP - General Internal Medicine 07/08/23 documented as of this encounter
--- OUTSIDE RECORDS SUMMARY | 2023-10-12 03:04 | XMS_ITS | Encounter Summary ---
Author Organization [facility] Address [address] [place] [address] Care Team Providers Care Lobby Concierge Name Role Phone Elsewhere, Pcp Primary Care Provider Unavailabl e Encounter Details Date Type Department Care Team (Late st Contact Info) Description 07/09/2023 CPAP Download Remote Patient Monitoring [facility] [address] [place] [phone] [facility], Provider Social History Tobacco Use Types Packs/Day Years Used Date Smoking Tobacco: Former Cigarettes 2 18 0 09/16/1966 - 06/30/1984 Passive Smoke Exposure: Past Smokeless Tobacco: Never Alcohol Use Standard Drinks/Week Comments Not Currently 0 (1 standard drink = 0.6 oz pur e alcohol) rarely, one or two a year [facility] Utilities Answer Date Recorded In the past 12 months has e [employer], gas, oil, or water [employer] threatened to shut off services in your [...] any clubs o r organizations such as mormon groups, unions, fraternal or athletic groups, or [...] your living situation today? I have a [facility] place to live 05/12/2023 Education Answer Date Recorded What is the highest level of school you have completed or the highest degree you have received? Bachelor's degree (e.g., BA, AB, BS) 09/20/2018 Sex and Gender Information Value Date Recorded Sex Assigned at Male 06/14/2018 8:36 PM MARKET NEWS REPORTER Gender Identity Male 10/11/2022 10:17 PM CDT Sexual Orientation Choose not to disclose 2019 1:31 PM MARKET NEWS REPORTER documented as of this encounter Plan of Treatment Not on file documented as of this encounter Visit Diagnoses Not on filedocumented in this encounter Additional Health Concerns Assessment Noted Time PHQ-9 Depression Total Score: 7 09/04/19 16 9:47 AM CDT documented as of this encounter Care Teams Lobby Concierge Relationship Specialty Start Date End Date Elsewhere, Pcp PCP - General Internal Medicine 07/08/23 documented as of this encounter
--- OUTSIDE RECORDS SUMMARY | 2023-10-12 03:04 | XMS_ITS | Encounter Summary ---
Author Organization [facility] Address [address] [place] [address] Care Team Providers Care Warehouse Foreman Name Role Phone Eli Rondon APRN C.N.P., R.N. Primary Care Provider Encounter Details Date Type Department Care Team (Late st Contact Info) Description 05/08/2023 CPAP Download Remote Patient Monitoring [facility] [address] [place] [address] [facility], Provider Social History Tobacco Use Types Packs/Day [...] Recorded In the past 12 months has [employer], gas, oil, or water [employer] threatened to shut off services in your [...] How often do you attend chur or sikh services? More than 4 times per year 12/31/2021 Do you belong to any clubs o r organizations such as congregational groups, unions, fraternal or athletic groups, or [...] your living situation today? I have a [facility] place to live 05/12/2023 Education Answer Date Recorded What is the highest level of school you have completed or the highest degree you have received? Bachelor's degree (e.g., BA, AB, BS) 09/20/2018 Sex and Gender Information Value Date Recorded Sex Assigned at Male 06/14/2018 8:36 PM BAND SAW MARKER Gender Identity Male 10/11/2022 10:17 PM CDT Sexual Orientation Choose not to disclose 2019 1:31 PM BAND SAW MARKER documented as of this encounter Plan of Treatment Not on file documented as of this encounter Visit Diagnoses Not on filedocumented in this encounter Additional Health Concerns Infection Onset Date Last Indicated Resolved Time COVID19 Pending 05/15/2023 05/15/2023 05/15/2023 1 1:56 PM BAND SAW MARKER COVID19 05/15/2023 05/15/2023 06/04/2023 6:10 AM BAND SAW MARKER Assessment Noted Time PHQ-9 Depression Total Score: 7 09/04/19 16 9:47 AM CDT documented as of this encounter Care Teams Warehouse Foreman Relationship Specialty Start Date End Date Eli Rondon, BETHANY, C.N.P., R.N. [address] [place] [address] PCP - General Family Medicine 04/27/23 07/07/23 documented as of this encounter
== END 2023-10-11 10:03 | disposition home or self-care (01) ==
LOC: AMB 10-12 02:59
PROVIDERS: PCP Family Medicine; Visit Provider Family Medicine
DX: S39.92XA Unspecified injury of lower back, initial encounter (principal); W18.39XA Other fall on same level, initial encounter; Y92.009 Unspecified place in unspecified non-institutional (private) residence as the place of occurrence of the external cause
CPT/HCPCS: A0425; A0427

== ENCOUNTER 2023-10-11 10:46 | Inpatient (IN) | payer MEDICARE, BC, SELFPAY ==
[2023-10-11] VITALS (21 sets, daily range): BP systolic 94–131; BP diastolic 38–75; PULSE 47–57; RESP 18–20; TEMP 35.8–36.4; O2SAT 82–100; BMI 48.6
--- NOTE | 2023-10-11 11:40 | ED_ITS ---
HPI - General Adult General Date Seen: 10/11/23 Chief complaint: Back Injury/Pain Stated complaint: Fall Time Seen by Provider: 10/11/23 11:33 History of Present Illness HPI narrative: 72 yo male with history of spinal stenosis without neurogenic claudication, lum bar radiculopathy, elevated BMI, to colon cancer, sleep apnea, anemia, hypothyroidism, chronic kidney disease, hypertension In review of prior medical records he was hospitalized in January 2023. C olonoscopy showed a large colonic mass, likely cancer near the ileocecal valve. He was referred to Colorectal surgery at [facility]. He was anemic with the hemoglobin of 7.2 and received transfusion of 2 units packed red cells. According to oncology note from Dr. Moon, oncology. 72-year-old gentleman with malignant neoplasm of the colon ascending status post right hemicolectomy on 05/12/2023 pathologic T4 N1b, RODO KRAS G 13, also adenocarcinoma of the sigmoid colon is status post polypectomy on 01/31/2023 without interval follow-up, stays in rehab facility due to his limited mobility due to chronic back issues, CT scan and PET scan in the fall of 2022 did not reveal any clear evidence of distant metastases, -ECOG 3-4 -CAPOX/FOLFOX/single agent capecitabine/single agent 5 FU (3-6 months regimens for have been discussed) -we discussed capecitabine for 6 months (avoiding oxaliplatin due to pre- existing peripheral neuropathy from diabetes mellitus and limited performance status) -flexible sigmoidoscopy was recommended to evaluate the sigmoid colon -baseline CT chest abdomen pelvis in [facility] before initiating therapy/surveillance -it was recommended that if he chooses to start chemotherapy it should be started ideally by the end of June and no later than 08/04/2023, 12 weeks from the date of surgery. Plan -Blood work from 07/11/2023 for CBC CMP and CEA essentially unremarkable, continues to have anemia and hemoglobin is stable. CEA not elevated.? -CT chest abdomen pelvis from 07/2023 unremarkable.?This is withOUT contrast. -We will request lab work today based on Zoltan request since he does not routinely Travel?out of his house.? -Will have CBC CMP CEA CT chest abdomen pelvis in November; of note we have requested CT chest abdomen pelvis with contrast, checked with Martir/Yoli, about any possible allergies to contrast, they deny. His kidney function seems to be at baseline as well. He also indicates that he has had scans in the past with jimi dahl.?He is CKD stage III and has DM. -Return visit in November after lab work and scans; will try and schedule all visits on the same day. Goals of care discussion:- -we discussed multiple nuances in his care including his poor performance status of 3-4 in which risks might outweigh the benefits of pursuing chemotherapy. -we also reviewed and discussed goals of care; quality versus quantity of life; possible ramifications of pursuing chemotherapy including nephrotoxicity. -we will proceed with sharing patient information on Xeloda/capecitabine. -he will have these discussions amongst his family, with his Yoli, and 2 daughters -Martir indicates that he does not wish to be on hemodialysis. Therefore does not wish to take any medication that might be nephrotoxic. He also indicates that quality of life matters to him. # stenosis and spinal lumbar with neurogenic claudication # diabetes mellitus type 2 peripheral neuropathy # hypertensive chronic kidney disease, stage IIIA # patient has been wheelchair bound due to his disability secondary to neuropathy secondary to spinal stenosis and diabetes mellitus. He has lived in several long-term care facilities. He has recently migrated back to his home and will be seeking home health support to take care of himself. He is currently unable to use bathroom without assistance. He is currently unable to shower by himself. He is currently restricted to bed/chair 24 hours of the day. His ambulation is very restricted at the moment. He was able to walk 1 of his daughter down the aisle in 2016 with the help of a cane. He was able to walk another daughter down the aisle in 2021 with the help of a walker. reports both times he felt extremely fatigued and tired by just walking approximately 30 ft. Prior to the ceremonies he also did a lot of exercise and put in a lot of effort to be able to walk his daughter down the aisle, since it was understandably so special and cassidy! 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 He has lot of trouble ambulating because of his chronic spinal stenosis. Also for the past couple of months he has had increasing fluid retention in both of his legs. He had been seeing his doctor at the [facility] and they put him on Lasix about a month and a half ago. However the Lasix was working so well that he was urinating too frequently. It was hard for him to get to the bathroom and urinate. Therefore his doctor actually decreased his dose of Lasix a few weeks ago. Over the past few weeks he has had progressively increasing swelling in both of his legs and now for the past few days also significant swelling in his scrotum. He is not having any chest pain or trouble breathing. He thinks he had an echocardiogram less wonder that showed a normal heart function. No chest pain. No palpitations. No known history of CHF. He has no history of liver disease or cirrhosis. As far as we know he has no metastasis of his colon cancer into his liver. He does have chronic kidney disease and he thinks his creatinine was about 1.4 when checked at the [facility] a couple of weeks ago. In that context with increasing fluid retention and difficulty getting around he was trying to walk with a with his walker this morning. He was trying to get back to his chair but his legs just gave out any fell to the floor. He hit his head and injured his low back. He has a diffuse headache. He is nauseous. He is not confused. No blurry vision. He is also having pain ?everywhere,? but in particular on the right side of his low back and into his right hip. Also little bit of pain in his upper back. No new numbness or weakness in his arms or legs. Related Data Home Medications ?Medication ?Instructions ?Recorded ?Confirmed allopurinol 300 mg tablet 300 mg PO DAILY 10/03/22 08/16/23 insulin glargine 100 unit/mL (3 38 unit subcut HS 10/03/22 08/16/23 mL) subcutaneous pen (Lantus Solostar U-100 Insulin) levothyroxine 100 mcg tablet 100 mcg PO DAILY 10/03/22 08/16/23 levothyroxine 125 mcg tablet 125 mcg PO DAILY 10/03/22 08/16/23 magnesium oxide 400 mg (241.3 mg 400 mg PO DAILY 10/03/22 08/16/23 magnesium) tablet potassium chloride 20 mEq 60 meq PO DAILY 10/03/22 08/16/23 tablet,extended release(part/cryst) (Klor-Con M) pravastatin 80 mg tablet 80 mg PO HS 10/03/22 08/16/23 spironolactone 50 mg tablet 50 mg PO DAILY 10/03/22 08/16/23 tamsulosin 0.4 mg capsule 0.8 mg PO HS 10/03/22 08/16/23 acetaminophen 500 mg tablet 1,000 mg PO TID 11/28/22 08/16/23 (Tylenol Extra Strength) duloxetine 30 mg capsule,delayed 30 mg PO BID 11/28/22 08/16/23 release nystatin 100,000 unit/gram topical 1 applic topical BID 11/28/22 08/16/23 powder sodium bicarbonate 650 mg tablet 1,950 mg PO TID 11/28/22 08/16/23 glipizide 5 mg tablet 2.5 - 5 mg PO BIDWMEAL 01/01/23 08/16/23 pregabalin 100 mg capsule 100 mg PO TID 01/01/23 08/16/23 sennosides 8.6 mg tablet (senna) 8.6 - 17.2 mg PO BID PRN 01/01/23 08/16/23 glucosamine-chondroitin 500 mg-400 3 tab PO QDAY 07/11/23 08/16/23 mg tablet (Cosamin DS) metformin 500 mg tablet,extended 1,000 mg PO BID 07/11/23 08/16/23 release 24 hr furosemide 20 mg tablet (Lasix) 20 mg PO BID 08/16/23 08/16/23 Previous Rx's ?Medication ?Instructions ?Recorded diltiazem HCl 240 mg 240 mg PO BID 30 days #60 caps 01/28/23 capsule,extended release 24 hr Allergies Allergy/AdvReac Type Severity Reaction Status Date / Time terazosin Allergy Severe Shortness Verified 10/11/23 14:35 of Breath amoxicillin [From Augmentin] Allergy Mild Diarrhea Verified 10/11/23 14:35 atenolol Allergy Mild Verified 10/11/23 14:35 clavulanic acid Allergy Mild Diarrhea Verified 10/11/23 14:35 [From Augmentin] lisinopril Allergy Unknown Cough Verified 10/11/23 14:35 meperidine [From Demerol] Allergy Unknown nausea Verified 10/11/23 14:35 trospium Allergy Unknown urinary Verified 10/11/23 14:35 retention [facility] Medical History Diabetes mellitus type 2 in obese ?E11.69 - Type 2 diabetes mellitus with other specified complication (ICD-10) ?E66.9 - Obesity, unspecified (ICD-10) Syncope ?R55 - Syncope and collapse (ICD-10) Benign prostatic hyperplasia ?N40.0 - Benign prostatic hyperplasia without lower urinary tract symptoms (ICD-10) Primary hypothyroidism ?E03.9 - Hypothyroidism, unspecified (ICD-10) Prostate nodule ?N40.2 - Nodular prostate without lower urinary tract symptoms (ICD-10) Hyperlipidemia ?E78.5 - Hyperlipidemia, unspecified (ICD-10) Chronic kidney disease ?N18.9 - Chronic kidney disease, unspecified (ICD-10) Essential hypertension ?I10 - Essential (primary) hypertension (ICD-10) Uric acid renal calculus ?N20.0 - Calculus of kidney (ICD-10) Nephrolithiasis ?N20.0 - Calculus of kidney (ICD-10) History of urinary tract infection ?Z87.440 - Personal history of urinary (tract) infections (ICD-10) Recurrent major depressive disorder ?F33.9 - Major depressive disorder, recurrent, unspecified (ICD-10) Chronic low back pain ?M54.50 - Low back pain, unspecified (ICD-10) ?G89.29 - Other chronic pain (ICD-10) Declining functional status ?R53.81 - Other malaise (ICD-10) Iron deficiency anemia ?D50.9 - Iron deficiency anemia, unspecified (ICD-10) Chronic idiopathic constipation ?K59.04 - Chronic idiopathic constipation (ICD-10) Atrial paroxysmal tachycardia ?I47.1 - Supraventricular tachycardia (ICD-10) Morbid obesity with BMI of 50.0-59.9, adult ?E66.01 - Morbid (severe) obesity due to excess calories (ICD-10) ?Z68.43 - Body mass index [BMI] 50.0-59.9, adult (ICD-10) Physical debility ?R53.81 - Other malaise (ICD-10) Diabetic peripheral neuropathy associated with type 2 diabetes mellitus ?E11.42 - Type 2 diabetes mellitus with diabetic polyneuropathy (ICD-10) Spinal stenosis, lumbar region without neurogenic claudication ?M48.061 - Spinal stenosis, lumbar region without neurogenic claudication (ICD-10) Lumbar radiculopathy, chronic ?M54.16 - Radiculopathy, lumbar region (ICD-10) BRITTNEY (obstructive sleep apnea) ?G47.33 - Obstructive sleep apnea (adult) (pediatric) (ICD-10) Surgical History History of tonsillectomy ?Z90.89 - Acquired absence of other organs (ICD-10) History of arthroscopy of both knees ?Z98.890 - Other specified postprocedural states (ICD-10) History of lumbar laminectomy ?Z98.890 - Other specified postprocedural states (ICD-10) Social History Narrative: He lives with his . Most of the last 3 months he has been hospitalized or in rehab for his back pain and leg weakness. Code status is full. 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 He does not smoke. He does not drink alcohol. He does not use recreational drugs. What is your current living situation?: I presently have a place to live Problems where you live: no known problems Problems where you live details: NA In the past 12 months, utilities in danger of being shut off: no In past 12 months, lack of transportation kept you from medical appts, meetings, work, or getting things needed for daily living: no In the past 12 mos, have been you worried that your food would run out before y ou had money to buy more?: never true In the past 12 mos, the food you bought just didn't last and you didn't have money to buy more?: never true Highest level of school completed/degree received: Bachelor's degree Smoking Status: Former smoker Do you use any of these nicotine containing products: None Second hand tobacco smoke exposure: Yes How often do you have a drink containing alcohol: monthly or less Alcohol type: beer How often do you have six or more drinks on one occasion: Never AUDIT-C Alcohol total score: 1 Non-prescribed substance use: denies use Caffeine: No How often does anyone, including family, friends and others, physically hurt you : never How often does anyone, including family, friends and others, insult or talk down to you: never How often does anyone, including family, friends and others, threaten you with harm: never How often does anyone, including family, friends and others, scream or curse at you: never service: No Exam Narrative: Exam Narrative: Primary Survey: A- patent. Speaking clearly. Phonation normal. No stridor. B- breathing easily. Lung sounds clear and equal. Oxygen saturation normal on room air C- no active bleeding. Blood pressure stable. Symmetric pulses and cap refill in 4 extremities. D- alert and oriented x3. GCS 15. No focal deficits. Uncomfortable and co mplaining of headache. Intermittently holding his emesis basin up to his mouth does he is feeling nauseous but he is not vomiting Constitutional: Appears well-developed and well-nourished. Very large and tall with elevated BMI. Alert. Uncomfortable but Conversant. HENT: Head: Atraumatic. Nose: Nose normal. Mouth/Throat: Oral mucosa is clear and moist. no trismus. Pharynx normal. Tonsils symmetric. No tonsillar enlargement, erythema, or exudate. Eyes: Conjunctivae normal. EOM normal. Pupils equal, round, and reactive to light. No scleral icterus. Neck: Normal range of motion. Neck supple. No tracheal deviation present. Mild tenderness including the posterior without any her ears focal point tenderness or step-off. Cardiovascular: Normal rate, regular rhythm. No gallop. No friction rub. No murmur heard. Symmetric radial artery pulses Pulmonary/Chest: Effort normal. No stridor. No respiratory distress. No wheezes. No rales. No rhonchi . No tenderness. Abdominal: Soft. Bowel sounds normal. Very protuberant but not tympanic. No distension. No mass. No tenderness. No rebound. No guarding. Musculoskeletal: Unable to sit up for back exam. Complaining of severe low back pain radiating to his right hip. Pelvis is stable. RUE: Normal range of motion. No tenderness. No deformity LUE: Normal range of motion. No tenderness. No deformity RLE: Normal range of motion. 3+ pitting edema. No tenderness. No deformity LLE: Normal range of motion. 3+ pitting edema. No tenderness. No deformity : Scrotal swelling and edema. Neurological: Alert and oriented to person, place, and time. Normal strength. CN II-VII intact. No sensory deficit. GCS eye subscore is 4. GCS verbal subscore is 5. GCS motor subscore is 6. Normal coordination Sensory: Normal light touch sensation bilaterally on the anteromedial thigh (L3), medial malleolus (L4), dorsal first web space (L5), lateral malleolus (S1). Strength: Strength is generally weak in both legs. 5/5 strength hip flexors (L3) on the rig ht and left 5/5 strength in the quadriceps (L4) on t he right and left 5/5 strength in the tibialis anterior 5/5 strength in the EHL (L5) on the righ t and left 5/5 strength in the gastrocnemius (S1) o n the right and left 5/5 strength in the hamstring on the rig ht and left He has low back pain with lifting his legs but no radicular pain with straight leg lift. He is not able to ambulate due to back pain and overall weakness. Skin: Skin is warm and dry. No rash noted. No pallor. Normal capillary refill. Psychiatric: Normal mood. Polite but flat affect. Const: Vital Signs, click to edit/add: Vital Signs - 24 hr 10/11/23 10:48 10/11/23 11:25 10/11/23 11:30 Temperature 96.4 F L Pulse Rate 52 L 52 L Pulse Rate [Right Pulse Oximeter] 57 L Respiratory Rate 20 Blood Pressure Blood Pressure [Ri ght Upper Arm] 113/54 L Pulse Oximetry 94 92 91 Oxygen Delivery Me thod Room Air 10/11/23 11:32 10/11/23 11:45 10/11/23 12:00 Temperature Pulse Rate 52 L 51 L 54 L Pulse Rate [Right Pulse Oximeter] Respiratory Rate Blood Pressure 127/54 L Blood Pressure [Ri ght Upper Arm] Pulse Oximetry 92 93 96 Oxygen Delivery Me thod 10/11/23 12:02 10/11/23 12:22 10/11/23 12:30 Temperature Pulse Rate 51 L 57 L 48 L Pulse Rate [Right Pulse Oximeter] Respiratory Rate Blood Pressure 121/54 L Blood Pressure [Ri ght Upper Arm] Pulse Oximetry 96 89 82 L Oxygen Delivery Me thod 10/11/23 12:32 10/11/23 13:02 10/11/23 13:05 Temperature Pulse Rate 47 L 50 L Pulse Rate [Right Pulse Oximeter] Respiratory Rate Blood Pressure 95/45 L 94/38 L Blood Pressure [Ri ght Upper Arm] Pulse Oximetry 92 Oxygen Delivery Me thod 10/11/23 13:16 10/11/23 13:30 10/11/23 13:32 Temperature Pulse Rate 48 L 48 L 52 L Pulse Rate [Right Pulse Oximeter] Respiratory Rate Blood Pressure 114/46 L Blood Pressure [Ri ght Upper Arm] Pulse Oximetry 92 Oxygen Delivery Me thod 10/11/23 13:33 10/11/23 15:04 10/11/23 15:31 Temperature Pulse Rate 52 L Pulse Rate [Right Pulse Oximeter] Respiratory Rate Blood Pressure 97/48 L 100/75 Blood Pressure [Ri ght Upper Arm] Pulse Oximetry 94 Oxygen Delivery Me thod Course Course ED Course: [id number]. Says headache is much improved down to a 2/10. Nausea improved. Still having low back and coccygeal pain at 5/10. Additional Dilaudid ordered. Vital Signs Vital signs: Initial Vital Signs Temperature 96.4 F L 10/11/23 10:48 Temperature Source Temporal Artery Scan 10/11/23 10:48 Pulse Rate 57 L 10/11/23 10:48 Respiratory Rate 20 10/11/23 10:48 Blood Pressure 113/54 L 10/11/23 10:48 Blood Pressure Mean 73 10/11/23 10:48 Blood Pressure Position Sitting 10/11/23 10:48 Pulse Oximetry 94 10/11/23 10:48 Oxygen Delivery Method Room Air 10/11/23 10:48 Vital Signs Temperature 96.4 F L 10/11/23 10:48 Pulse Rate 57 L 10/11/23 10:48 Respiratory Rate 20 10/11/23 10:48 Blood Pressure 113/54 L 10/11/23 10:48 Pulse Oximetry 94 10/11/23 10:48 Oxygen Delivery Method Room Air 10/11/23 10:48 Temperature 96.4 F L 10/11/23 10:48 Pulse Rate 52 L 10/11/23 13:33 Respiratory Rate 20 10/11/23 10:48 Blood Pressure 100/75 10/11/23 15:31 Pulse Oximetry 94 10/11/23 13:33 Oxygen Delivery Method Room Air 10/11/23 10:48 Medications Administered Medications: Discontinued Medications Generic Name Dose Route Start Last Admin Trade Name Soyq PRN Reason Stop Dose Admin Acetaminophen 1,000 mg 10/11/23 11:48 10/11/23 12:30 Acetaminophen 500 Mg Tablet PO 10/11/23 11:49 1,000 mg ONCE ONE Administration Hydromorphone HCl 0.5 mg 10/11/23 11:56 10/11/23 12:31 Hydromorphone 0.5 Mg/0.5 Ml Inj IVP 0.5 mg Q1H PRN Administration Pain Ondansetron HCl 4 mg 10/11/23 11:56 10/11/23 12:30 Ondansetron 2 Mg/Ml Inj IVP 10/11/23 11:57 4 mg ONCE ONE Administration Medical Decision Making [facility] Narrative Medical decision making narrative: 72-year-old gentleman with a very complex past medical history brought to the ER today by EMS after he had a ground level fall. He was walking and he had generalized bilateral leg weakness that led him to fall to the ground. He hit his head and injured his low back and also has pain throughout his body. Primary injuries are to his head and right side of his lumbar area. 1. Neuro. He had headache and nausea but no focal deficits. He is not anticoagulated. Head CT scan normal Because of his fall and distracting injuries we could not clear his cervical spine clinically. C-spine CT shows no acute traumatic injury Lumbar spine CT shows no acute traumatic injury 2. Renal. Patient does report progressively worsening fluid overload and bilateral lower extremity edema getting worse for the past month or 2 and been particular X decelerating in the past few weeks since he had his Lasix dose decreased by his primary care provider. He does have a history of chronic kidney disease. Previous creatinine was 1.2. Today is slightly elevated up to 1.7. BUN also elevated at 36, which would suggest probable intravascular depletion and prerenal azotemia. CT abdomen pelvis shows no evidence for obstructing kidney stone. 3. Electrolytes. Sodium and potassium normal. Bicarb normal. Anion gap normal. 4. Endocrine. Has a history of diabetes. Blood sugar 120. 5. Cardiac. Has generalized weakness and his both of his legs gave out. No palpitations to suggest arrhythmia or chest pain to suggest ACS. Screening EKG shows sinus rhythm. Screening troponin is undetectable and low. And terminal proBNP is normal at 275. Chest CT shows no evidence for pulmonary edema 6. Ortho. Patient has predominant complaint of low back and posterior pelvic pain CT scan shows no sign of pelvic fracture or hip fracture.. No evidence for other long bone orthopedic fractures to his upper lower extremities. 6. Heme. He has a history of anemia. Today hemoglobin is 8.5. The most recent hemoglobin was 9.5 on August 15. Denies any black or bloody stools. No clear evidence for active bleeding. Platelet count normal. He is not anticoagulated. White count normal. 7. Infectious disease. No fever. White count normal. No clear evidence for any focal infection or sepsis. 8. Disposition. At this point the patient is still having too much low back pain, generalized weakness that he is not able to get up and ambulate or discharge home with his . He will be admitted for supportive care, diu resis, correction of his renal insufficiency, and further workup. Discussed with Dr. Johnson, hospitalist who agrees to admit. Lab Data Labs: Lab Results 10/11/23 10/11/23 Range/Units 12:34 12:36 WBC 7.19 (4.50-11.00) K/uL RBC 3.97 L (4.30-5.90) m/uL Hgb 8.5 L (13.5-17.5) gm/dL Hct 29.2 L (37.0-53.0) % MCV 74 L (80-100) fL MCH 21 L (26-34) pg MCHC 29 L (32-36) gm/dL RDW Coeff of Liana 18.6 H (11.5-15.5) % Plt Count 255 (140-440) K/uL Neut % (Auto) 69.3 (42.0-72.0) % Lymph % (Auto) 21.3 (20-44) % Leon % (Auto) 6.0 (0.0-11.0) % Eos % (Auto) 3.1 (0.0-7.0) % Baso % (Auto) 0.3 (0.0-3.0) % Neut # (Auto) 4.99 (1.7-7.0) K/uL Lymph # (Auto) 1.53 (0.90-2.90) K/uL Leon # (Auto) 0.40 (0.00-0.90) K/UL Eos # (Auto) 0.22 (0.00-0.50) K/uL Baso # (Auto) 0.02 (0.00-0.30) K/uL Abs Immat Gran (auto) 0.00 (0.00-0.30) K/uL Imm/Tot Granulo (auto) 0.0 % Sodium 140 (135-149) mmol/L Potassium 4.2 (3.6-5.1) mmol/L Chloride 108 (96-114) mmol/L Carbon Dioxide 23 (20-32) mmol/L Anion Gap 9 (7-15) mEq/L BUN 36 H (7-30) mg/dL Creatinine 1.7 H (0.5-1.5) mg/dL Estimated Creat Clear 50.96 Estimated GFR 43 ml/min Glucose 120 H (60-115) mg/dL Calcium 8.6 (8.4-10.6) mg/dL Total Bilirubin 0.4 (0.1-1.5) mg/dL AST 29 (12-35) U/L ALT 34 (4-50) U/L Alkaline Phosphatase 96 (40-150) U/L Troponin I < 0.01 L (0.01-0.04) ng/mL NT-Pro-B Natriuret Pep 275 pg/mL Total Protein 5.7 L (6.0-8.3) g/dL Albumin 3.6 (3.3-5.0) g/dL Imaging Data CT scan - head: Attestation: I have reviewed the pertinent imaging results. Radiologist's impression: IMPRESSION: No acute intracranial findings. CT C spine: Attestation: I have reviewed the pertinent imaging results. Radiologist's impression: IMPRESSION: No acute or traumatic findings on cervical spine CT. CT L spine: Radiologist's impression: IMPRESSION: No acute or traumatic findings on lumbar spine CT. CT Chest/Ab/Pelvis: Attestation: I have reviewed the pertinent imaging results. Radiologist's impression: IMPRESSION: 1. No acute injury identified in the chest, abdomen or pelvis. 2. Cholelithiasis without CT evidence of cholecystitis. 3. Slightly heterogeneous lesion at the inferior pole of the left kidney measuring up to 2.2 centimeters in diameter, stable compared to the prior exam and from February 01, 2023. Consider comparison to remote prior imaging or consider further evaluation with outpatient ultrasound. 4. Stable postsurgical changes from right hemicolectomy. 5. Redemonstrated prominent external iliac chain lymph nodes. Discharge Plan Discharge Clinical Impression: Fall, Edema, peripheral, TARA (acute kidney injury), Generalized weakness Prescriptions: No Action furosemide [Lasix] 20 mg tablet 20 mg PO BID levothyroxine 100 mcg tablet 100 mcg PO DAILY Patient Comments: TOTAL DOSE = 225MCG potassium chloride [Klor-Con M20] 20 mEq tablet,ER particles/crystals 60 meq PO DAILY pravastatin 80 mg tablet 80 mg PO HS magnesium oxide 400 mg (241.3 mg magnesium) tablet 400 mg PO DAILY tamsulosin 0.4 mg capsule 0.8 mg PO HS levothyroxine 125 mcg tablet 125 mcg PO DAILY Patient Comments: TOTAL DOSE = 225MCG allopurinol 300 mg tablet 300 mg PO DAILY spironolactone 50 mg tablet 50 mg PO DAILY insulin glargine [Lantus Solostar U-100 Insulin] 100 unit/mL (3 mL) insulin pen 38 unit subcut HS metformin 500 mg tablet extended release 24 hr 1,000 mg PO BID nystatin 100,000 unit/gram powder 1 applic topical BID duloxetine 30 mg capsule,delayed release(DR/EC) 30 mg PO BID sodium bicarbonate 650 mg tablet 1,950 mg PO TID acetaminophen [Tylenol Extra Strength] 500 mg tablet 1,000 mg PO TID glipizide 5 mg tablet 2.5 - 5 mg PO BIDWMEAL Rx Instructions: TAKE 1 TAB (5 MG) IN AM AND 1/2 TAB (2.5 MG) IN PM pregabalin 100 mg capsule 100 mg PO TID sennosides [senna] 8.6 mg tablet 8.6 - 17.2 mg PO BID PRN glucosamine-chondroitin [Cosamin DS] 500-400 mg tablet 3 tab PO QDAY diltiazem HCl 240 mg Capsule,Extended Release 24hr 240 mg PO BID 30 Days Qty: 60 0RF Follow Up/Referrals: Grzegorz Wiggins MD [Primary Care Provider] -
--- NOTE | 2023-10-11 11:53 | CRLHL7_ITS ---
For Patients: As a result of the Century Cures Act, medical imaging exams and procedure reports are released immediately into your electronic medical record. You may view this report before your referring provider. If you have questions, please contact your health care provider. INDICATION: Fall, head pain. COMPARISON: None. TECHNIQUE: CT of the brain / head without intravenous contrast. Multiplanar axial, coronal, and sagittal reformats were reconstructed. FINDINGS: No intracranial hemorrhage. Age-related parenchymal volume loss. No acute or subacute cortically based infarct. No mass or mass effect. Normal ventricles. No skull fractures. No worrisome focal bone lesion. IMPRESSION: No acute intracranial findings. Please note that all CT scans at this facility use dose modulation, iterative reconstruction, and/or weight-based dosing when appropriate to reduce radiation dose to as low as reasonably achievable. Dictated by Henny Bright MD @ 10/11/2023 2:40:45 PM (Electronically Signed)
--- NOTE | 2023-10-11 11:53 | CRLHL7_ITS ---
For Patients: As a result of the Cures Act, medical imaging exams and procedure reports are released immediately into your electronic medical record. You may view this report before your referring provider. If you have questions, please contact your health care provider. INDICATION: Fall, neck pain. COMPARISON: None. TECHNIQUE: CT of the cervical spine without contrast. Multiplanar axial, coronal, and sagittal reformats were reconstructed. FINDINGS: No fracture. Straightening of the normal cervical lordosis. No listhesis. 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 Multilevel disc degenerative change. Multilevel facet arthritis. No severe neural foraminal narrowing. No severe central canal stenosis. No destructive bony lesions. No cervical prevertebral soft tissue swelling. IMPRESSION: No acute or traumatic findings on cervical spine CT. Please note that all CT scans at this facility use dose modulation, iterative reconstruction, and/or weight-based dosing when appropriate to reduce radiation dose to as low as reasonably achievable. Dictated by Henny Bright MD @ 10/11/2023 2:43:35 PM (Electronically Signed)
--- NOTE | 2023-10-11 11:53 | CRLHL7_ITS ---
For Patients: As a result of the Century Cures Act, medical imaging exams and procedure reports are released immediately into your electronic medical record. You may view this report before your referring provider. If you have questions, please contact your health care provider. INDICATION: Lower back pain, fall. COMPARISON: Same day CT chest abdomen and pelvis TECHNIQUE: CT of the lumbar spine is reformatted from the same-day CT of the chest abdomen and pelvis. Multiplanar axial, coronal, and sagittal reformats were reconstructed. FINDINGS: No lumbar spine fracture. No listhesis. Advanced multilevel disc degenerative change. Advanced multilevel facet arthritis. Multilevel bridging osteophytes. Multilevel neural foraminal narrowing. Effacement of the thecal sac at multiple levels below the conus medullaris. No destructive bony lesions. For visceral findings please see dedicated CT of the abdomen and pelvis. IMPRESSION: No acute or traumatic findings on lumbar spine CT. Please note that all CT scans at this facility use dose modulation, iterative reconstruction, and/or weight-based dosing when appropriate to reduce radiation dose to as low as reasonably achievable. Dictated by Henny Bright MD @ 10/11/2023 2:46:19 PM (Electronically Signed)
--- NOTE | 2023-10-11 11:53 | CRLHL7_ITS ---
For Patients: As a result of the Century Cures Act, medical imaging exams and procedure reports are released immediately into your electronic medical record. You may view this report before your referring provider. If you have questions, please contact your health care provider. INDICATION: Fall, pain. TECHNIQUE: CT chest, abdomen and pelvis acquired with IV contrast. COMPARISON: August 11, 2023. FINDINGS: CHEST: Cardiovascular structures: Heart size is normal. Thoracic aorta and main pulmonary artery are normal in caliber. Mediastinum and xiao: No mass or adenopathy. Lungs and pleura: Lungs and pleural spaces are clear. No suspicious nodules, infiltrates, or effusions. Chest wall and axilla: No mass or adenopathy. Bones: No suspicious bone lesions. Unremarkable for age. ABDOMEN AND PELVIS: Liver: Unremarkable. Gallbladder and bile ducts: Cholelithiasis. No CT evidence of cholecystitis. Pancreas: Severe fatty atrophy of the pancreas. Spleen: Unremarkable. Adrenal glands: Unremarkable. Kidneys: Mild atrophy of the bilateral kidneys. Slightly heterogeneous lesion at the inferior pole of the left kidney measuring 2.2 centimeters in diameter, stable compared to prior from August 11, 2023 and from February 01, 2023 GI tract: Status post hemicolectomy. Anastomosis is unremarkable. No evidence of bowel obstruction. Vascular structures: Unremarkable. Lymph nodes: Prominent external iliac chain lymph nodes. Miscellaneous: Fat containing umbilical hernia. Pelvic Organs: Bladder is unremarkable. Prostate is unremarkable. Bones: No suspicious bone lesions. Unremarkable for age. IMPRESSION: 1. No acute injury identified in the chest, abdomen or pelvis. 2. Cholelithiasis without CT evidence of cholecystitis. 3. Slightly heterogeneous lesion at the inferior pole of the left kidney measuring up to 2.2 centimeters in diameter, stable compared to the prior exam and from February 01, 2023. Consider comparison to remote prior imaging or consider further evaluation with outpatient ultrasound. 4. Stable postsurgical changes from right hemicolectomy. 5. Redemonstrated prominent external iliac chain lymph nodes. Please note that all CT scans at this facility use dose modulation, iterative reconstruction, and/or weight-based dosing when appropriate to reduce radiation dose to as low as reasonably achievable. Dictated by Dario Newman MD @ 10/11/2023 3:04:55 PM (Electronically Signed)
[2023-10-11] MEDS: ACETAMINOPHEN 500 MG TABLET 1000 MG PO ×2 (12:30→23:16)
[2023-10-11] MEDS: ONDANSETRON 2 MG/ML inj 4 MG IVP (12:30)
[2023-10-11] MEDS: HYDROmorphone 0.5 mg/0.5 ml inj IVP (12:31)
--- OUTSIDE RECORDS SUMMARY | 2023-10-11 12:38 | XMS_ITS | Encounter Summary ---
Author Organization [facility] Address [address] [address] Phone Care Team Providers Care Audio Visual Specialist Name Role Phone Grzegorz Wiggins MD Primary Care Provider [phone] Reason for Visit * Reason Comments Lab Work Encounter Details Date Type Department Care Team (Late st Contact Info) Description 07/04/2023 11:40 AM CDT ALLIED HEALTH/NURSE VISIT [facility] [address] [place] [id number] Lab, [facility] [address] [place] [phone] Lab Work Social History Tobacco Use Types [...] - 18.0 g/dl 07/04/2023 11:49 AM CDT [facility] Blood BLOOD SPECIMEN / Unknown Venipuncture / Unknown 07/04/2023 11:45 AM CDT 07/04/2023 11:45 AM CDT Eli Rondon CNP EC HEMATOLOGY ORDERA BLES [facility] [address] [place] [address], [facility] [phone] documented in this encounter Visit Diagnoses Diagnosis Iron deficiency anemia, unspecified iron deficiency anemia type- Primary documented in this encounter Care Teams Audio Visual Specialist Relationship Specialty Start Date End Date Grzegorz Wiggins MD [address] [place] [id number] PCP - General Family Medicine 06/06/23 documented as of this encounter
--- OUTSIDE RECORDS SUMMARY | 2023-10-11 12:38 | XMS_ITS | Encounter Summary ---
Author Organization [facility] Address [address] [address] Phone Care Team Providers Care Director Of Dance Name Role Phone Grzegorz Wiggins MD Primary Care Provider [phone] Encounter Details Date Type Department Care Team [...] on filedocumented in this encounter Care Teams Director Of Dance Relationship Specialty Start Date End Date Grzegorz Wiggins MD [address] [place] [address] PCP - General Family Medicine 06/06/23 documented as of this encounter
--- OUTSIDE RECORDS SUMMARY | 2023-10-11 12:38 | XMS_ITS | Clinical Summary ---
Author Organization [facility] Address [address] [address] Phone Care Team Providers Care Journeyman Mechanic Name Role Phone Grzegorz Wiggins MD Primary Care Provider [phone] Allergies Active Allergy Reactions Criticality Noted Date [...] day. 2022 2023 Active Lactobacillus Rhamnosus, GG, ([facility] [employer]) capsule Take 1 Capsule by mouth two [...] Date Diagnosed Date Cough in adult 05/02/2023 Social History Tobacco Use Types Packs/Day Years [...] Comments Blood Pressure 146/71 04/30/2023 3:25 PM OB TECH Pulse 78 04/30/2023 3:25 PM OB TECH Temperature 36.3 ??C (97.4 ??F) 04/30/2023 3:25 PM CS T Respiratory Rate 18 04/30/2023 3:25 PM OB TECH Oxygen Saturation 99% 04/30/2023 3:25 PM OB TECH Inhaled Oxygen Concentration - - Weight 184.2 kg (406 lb) 04/30/2023 3:23 PM OB TECH Height 195.6 cm (6' 5) 04/30/2023 3:23 PM OB TECH Body Mass Index 48.14 04/30/2023 3:23 PM OB TECH Plan of Treatment Health Maintenance Due Date Last Done Comments CT Colonography 1952 Cologuard 1950 Colonoscopy 1950 Colorectal Cancer Screening 1950 FIT/FOBT 1952 Sigmoidoscopy 1952 PERTUSSIS (Standing Order) 11/06/1971 TETANUS (Standing Order) 11/06/1971 Shingrix (Zoster recombinant ) vaccine (Standing Order) (1 of 2) 2002 RSV Vaccination (60+ yrs) (Abrysvo/Arexvy) (1 - 1-dose 60+ series) 2012 Abdominal Aortic Aneurysm (A AA) Screening 2017 Pneumococcal Vaccine: 65+ yr s (Standing Order) (1 of 1 - PCV) 2017 Influenza Vaccine Seasonal (Standing Order) (Season Ended) 2023 HPV Vaccine (Standing Order) Aged Out No longer eligible based on patient's age to complete this topic Hepatitis B Vaccine (Standin g Order) Aged Out No longer eligible b ased on patient's age to complete this topic Care Teams Journeyman Mechanic Relationship Specialty Start Date End Date Grzegorz Wiggins MD [address] [place], [place] [phone] PCP - General Family Medicine 06/06/23
--- OUTSIDE RECORDS SUMMARY | 2023-10-11 12:40 | XMS_ITS ---
Author Organization [facility] Address [address] [place] [address] Care Team Providers Care Special Effects Specialist Name Role Phone Unavailable Unavailable Unavailable Surgery Details Not on file Complications Check Surgery Details section. Procedure Estimated Blood Loss Check Surgery Details section. Procedure Findings Check Surgery Details section. Procedure Specimens Taken Check Surgery Details section.
--- OUTSIDE RECORDS SUMMARY | 2023-10-11 12:40 | XMS_ITS | Continuity of Care Document ---
Author Organization [facility] Address [address] [place] [address] Care Team Providers Care Oracle Adf Developer Name Role Phone Elsewhere, Pcp Primary Care Provider Unavailabl e Source Comments Patient records contain information from all sites at [facility]. For routine questions regarding patient records, call [phone] during business hours, M-F 8:00 AM - 5:00 PM Central Time. Record requests for emergency care only can be directed to [phone] at any time.[facility] Encounters Date Type Department Care Team Description 4 CPAP Download Remote Patient Monitoring [facility] [address] [place] [address] [facility], Provider 4 CPAP Download Remote Patient Monitoring [facility] [address] [place] [address] [facility], Provider 4 CPAP Download Remote Patient Monitoring [facility] [address] [place] [address] [facility], Provider 4 1:06 PM CDT - 4 11:59 PM CDT Hospital Encounter Department of Radiology, [facility], in [place], [place] [address] [place] [phone] Mario Alberto Navarro P.A.-C., M.S. Wilner Casas M.D. 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 Colectomy Partial Status Post [...] 4 Clinical Communication Department of Oncology in [place], [place] [address] [place] [address] Zan Rodriguez P.A.-C., M.S. 4 1:00 PM CDT External Outreach Senior Services in [place] [address] [place] [address] John Lerner M.D. Colectomy Partial Status Post [...] 4 Clinical Communication Department of Oncology in [place], [place] [address] [place] [phone] Brenda Delgadillo M.D. Referral 4 Orders Only Senior Services in [place] [address] [place] [address] Eli Rondon APRN, C.N.P., R.N. 4 3:00 PM CENTRIFUGAL CHILLER TECHNICIAN Telemedicine Department of Oncology in [place], [place] [address] [place] [address] Brenda Delgadillo M.D. Malignant Neoplasm Of Colon Ascending (HCC) (Primary Dx); Malignant Neoplasm Of Sigmoid Colon (HCC); Nodules Pulmonary Multiple; Stenosis Spinal Lumbar With Neurogenic Claudication; Diabetes Mellitus Type 2 Peripheral Neuropathy (HCC); Hypertensive Chronic Kidney Disease (CKD) Stage 3a Glomerular Filtration Rate (GFR) 45 To 59 (HCC) 4 9:15 AM CENTRIFUGAL CHILLER TECHNICIAN Clinical Communication Virtual Review in [place], [place] [address] [place] [address] 4 9:30 AM CENTRIFUGAL CHILLER TECHNICIAN External Outreach Senior Services in [place] [address] [place] [phone] Eli Rondon APRN, C.N.P., R.N. Anemia Iron Deficiency (Primary Dx); Malignant Neoplasm Of Colon Ascending (HCC); Hypertensive Chronic Kidney Disease (CKD) Stage 3a Glomerular Filtration Rate (GFR) 45 To 59 (HCC); Diabetes Mellitus Type 2 Peripheral Neuropathy (HCC); Stenosis Spinal Lumbar With Neurogenic Claudication; Weakness General 4 Documentation Department of Medical Genetics in [place], [place] [address] [place] [phone] Kirsty Mclaughlin Genetic Testing Results 4 CPAP Download Remote Patient Monitoring [facility] 5 [address] [place] [address] [facility], Provider 4 Clinical Communication Senior Services in [place] [address] [place] [phone] John Lerner M.D. 4 Clinical Communication Department of Oncology in [place], [place] [address] [place] [phone] Brenda Delgadillo M.D. Appt Video 4 2:00 PM CENTRIFUGAL CHILLER TECHNICIAN Telemedicine Department of Orthopedic Surgery in [place], [place] [address] [place] [address] Mario Alberto Navarro, P.A.-C., M.S. 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 4 1:00 PM CENTRIFUGAL CHILLER TECHNICIAN External Outreach Senior Services in [place] [address] [place] [address] John Lerner M.D. Colectomy Partial Status Post [...] Division of Colon and Rectal Surgery in [address] [address] Bonny Clifton M.B., BEstela, MJhon. Results 4 10:30 AM CENTRIFUGAL CHILLER TECHNICIAN External Outreach Senior Services in [place] [address] [place] [address] Eli Rondon, BETHANY, C.N.P., R.N. Malignant Neoplasm [...] Division of Colon and Rectal Surgery in [place], [place] [address] [place] [address] Bonny Clifton M.B., Lyle Zambrano Cancer stage 4 2:08 PM CENTRIFUGAL CHILLER TECHNICIAN - 4 10:24 AM CENTRIFUGAL CHILLER TECHNICIAN Hospital Encounter [facility], [facility], [facility], Sixth Floor [address] [place] [address] Bonny Clifton M.B., Lyle Zambrano Repeated Falls (Primary Dx); Malignant Neoplasm Of Colon Ascending (HCC); Morbid Severe Obesity Due To Excess Calories (HCC); Stenosis Spinal Lumbar With Neurogenic Claudication; Weakness General; Debility; Malignant Neoplasm Of Colon (HCC) Discharge Disposition: Detention Facility 4 12:34 PM CENTRIFUGAL CHILLER TECHNICIAN - 4 4:51 PM CENTRIFUGAL CHILLER TECHNICIAN Surgery [facility] MAIN OR [address] [place] [address] Bonny Clifton M.B., Lyle Zambrano LAPAROSCOPIC COLECTOMY RIGHT, ANASTOMOSIS. 4 10:19 AM CENTRIFUGAL CHILLER TECHNICIAN Anesthesia Event [facility] OR [address] [place] [address] Shin Woods M.D. Wemple, Keith M, R.N., CCRN 4 3:00 PM CENTRIFUGAL CHILLER TECHNICIAN Telemedicine Division of Colon and Rectal Surgery in [place], [place] [address] [place] [address] Bonny Clifton M.B., Lyle Zambrano Malignant Neoplasm Of Colon Ascending (HCC) (Primary Dx); Diabetes Mellitus Type 2 Peripheral Neuropathy (HCC); Apnea Sleep Obstructive; Chronic Kidney Disease (CKD), Stage 3a Glomerular Filtration Rate (GFR) 45 To 59 (HCC); Hypothyroidism; Depression Major Recurrent (HCC); Decline Functional Status; Morbid Obesity Body Mass Index 45.0-49.9 Adult (HCC) 4 CPAP Download Remote Patient Monitoring [facility] [address] [place] [address] [facility], Provider 4 Clinical Communication Senior Services in [place] [address] [place] [address] Eli Rondon APRN, C.N.P., R.N. 4 Intake [facility] 4 3:00 PM CENTRIFUGAL CHILLER TECHNICIAN External Outreach Senior Services in [place] [address] [place] [address] Eli Rondon APRN, C.N.P., R.N. Anemia Iron [...] 4 Clinical Communication Department of Family Medicine, [facility], in [address] [place] [address] Rasheed Pastor APRN, C.N.P. 4 Abstract [place], [place] [address] [place] [address] Provider, Historical 3 1:20 PM CENTRIFUGAL CHILLER TECHNICIAN - 4 10:50 AM CENTRIFUGAL CHILLER TECHNICIAN Hospital Encounter [facility], Second Floor [address] [place] [address] Green, Florencio, D.O. Steiner, Carter, M.D. Schimming, Christopher, M.D. Jo, Leila M, M.D. Langbehn, Breanna M, D.O. Agunwamba, Akochi O, M.D. Weakness General (Primary Dx); Debility; Pain Low Back Chronic; Decline Functional Status; Pain Back Lumbar Discharge Disposition: Detention Facility 4 Clinical Communication Department of Orthopedic Surgery in [place], [place] [address] [place] [phone] Mario Alberto Navarro P.A.-C., M.S. Pre-visit Testing Orders 3 Clinical Communication Center [facility] in [place], [place] [address] [place] [phone] Evgeny Ching M.D. 3 CPAP Download Remote Patient Monitoring [place] [id number] [address] [place] [address] [facility], Provider 3 11:00 AM CENTRIFUGAL CHILLER TECHNICIAN Education Division of General Internal Medicine in [place], [place] [address] [place] [phone] Sita Headley R.N. 3 10:00 AM CENTRIFUGAL CHILLER TECHNICIAN Comprehensive Visit Division of General Internal Medicine in [address] [address] Bonny Clifton M.B., B., M.Grzegorz Barahona M.D. Malignant Neoplasm Of Colon Ascending (HCC) [...] Hypothyroidism; Chronic Idiopathic Constipation 3 1:30 PM CENTRIFUGAL CHILLER TECHNICIAN Clinical Communication Virtual Review in [place], [place] 200 [place] [address] Pre-visit Intake 3 Orders Only Division of Colon and Rectal Surgery in [place], [place] [address] [place] [phone] Sera Cabrera R.N. Malignant Neoplasm Of Colon Ascending (HCC) (Primary Dx) 3 Episode Changes Division of Gastroenterology in [place], [place] [address] [place] [phone] 3 Clinical Communication Division of Colon and Rectal Surgery in [place], [place] [address] [phone] Bonny Clifton M.B., Lyle Zambrano Schedule surgery 3 Documentation Division of Gastroenterology in [place], [place] [address] [place] [phone] Dave Mckeon M.D. 3 Clinical Communication Division of Colon and Rectal Surgery in [place], [place] [address] [place] [phone] Sophie Zaragoza, RKeny 3 9:00 AM CENTRIFUGAL CHILLER TECHNICIAN Virtual Visit Division of Colon and Rectal Surgery in [place], [place] [address] [place] [phone] Parag Molina M.D., M.S. Morbid Obesity (HCC) (Primary Dx); Malignant Neoplasm Of Colon Ascending (HCC); Apnea Sleep Obstructive; Chronic Kidney Disease (CKD), Stage 3a Glomerular Filtration Rate (GFR) 45 To 59 (HCC); Hypertension And Chronic Kidney Disease Stage 3 (HCC); Diabetes Mellitus Type 2 (HCC) 3 11:50 AM CENTRIFUGAL CHILLER TECHNICIAN Ancillary Procedure Department of Nursing 3 2:50 PM CENTRIFUGAL CHILLER TECHNICIAN Ancillary Procedure Department of Emergency Medicine 3 1:38 AM CDT - 3 1:18 PM CENTRIFUGAL CHILLER TECHNICIAN Hospital Encounter [facility], [facility], Second Floor [address] [place] [address] Peter Alva M.D., M.S. Montserrat Gilbert M.D. Peter March M.D. Spinal Stenosis Lumbar Region Without Neurogenic Claudication (Primary Dx); Weakness General; Abnormal Posture [R29.3 (ICD-10-CM)]; Decline Functional Status [R53.81 (ICD-10-CM)]; Radiculopathy Lumbar; Debility; Pain Low Back Chronic Discharge Disposition: Detention Facility 3 Clinical Communication Department of Hospital Internal Medicine in [place], [place] [address] [place] [phone] Kandace Weaver APRN, C.N.P., M.S.N. 3 Clinical Communication Division of Colon and Rectal Surgery in [place], [place] [address] [place] [phone] Parag Molina M.D., M.S. 3 12:00 PM CENTRIFUGAL CHILLER TECHNICIAN Virtual Visit Division of Gastroenterology in [place], [place] [address] [place] [phone] Dave Mckeon M.D. Malignant Neoplasm Of Colon Ascending (HCC) (Primary Dx) 3 Clinical Communication Department of Medical Genetics in [place], [place] [address] [place] [phone] Eli Herron M.S., [facility]: NK 3 3:42 PM CENTRIFUGAL CHILLER TECHNICIAN - 3 11:59 PM CENTRIFUGAL CHILLER TECHNICIAN Hospital Encounter Department of Laboratory Medicine and Pathology, [facility], in [place], [place] [address] [place] [phone] Ean Huizar M.D. Malignant Neoplasm Of Colon Ascending (HCC) Discharge Disposition: Home or Self Care 3 11:10 AM CENTRIFUGAL CHILLER TECHNICIAN Ancillary Procedure Department of Family Medicine 3 Orders Only Department of Orthopedic Surgery in [place], [place] [address] [place] [phone] Pérez Ospina M.D. 3 Clinical Communication Division of Gastroenterology in [place], [place] [address] [place] [phone] Dave Mckeon M.D. 3 7:40 AM CENTRIFUGAL CHILLER TECHNICIAN Ancillary Procedure Department of Internal Medicine, [place] 3 9:00 AM CDT Immunization Section of Infectious Diseases in [place], [place] [address] [place] [phone] 3 8:30 AM CDT Comprehensive Visit Department of Medical Genetics in [place], [place] [address] [place] [phone] Dave Mckeon M.D. Eli Herron M.S., CARLIE Malignant Neoplasm Of Colon Ascending (HCC) (Primary Dx) 3 8:00 AM CDT Comprehensive Visit Department of Medical Genetics in [place], [place] [address] [place] [phone] Dave Mckeon M.D. Keiko Walker Malignant Neoplasm Of Colon Ascending (HCC) 3 7:05 AM CDT - 3 11:59 PM CDT Hospital Encounter Department of Laboratory Medicine and Pathology, [facility] in [place], [place] [address] [place] [phone] Dave Mckeon M.D. Malignant Neoplasm Of Colon Ascending (HCC); Diabetes Mellitus Type 2 (HCC) Discharge Disposition: Home or Self Care 3 1:40 PM CDT Comprehensive Visit Division of Gastroenterology in [address] [address] Peter Greenberg M.D. Malignant Neoplasm Of Colon Ascending (HCC) (Primary Dx); Diabetes Mellitus Type 2 (HCC) 3 8:15 AM CDT Clinical Communication Virtual Review in [place], [place] 200 [place] [address] Pre-visit Intake 3 9:15 AM CDT Lab RST [facility] [address] [place] [phone] Dave Mckeon M.D. Malignant Neoplasm Of Colon Ascending (HCC) 3 4:05 PM CDT Ancillary Procedure Department of Radiology in [address] [address] Dave Mckeon M.D. Malignant Neoplasm Of Colon Ascending (HCC) 3 4:00 PM CDT Ancillary Procedure Department of Radiology in [place], [place] [address] [place] [phone] Dave Mckeon M.D. Malignant Neoplasm Of Colon Ascending (HCC) 3 Clinical Communication Division of Gastroenterology in [place], [place] [address] [place] [phone] Dave Mckeon M.D. Neoplasia; RN Summary 3 Clinical Communication Division of Colon and Rectal Surgery in [place], [place] [address] [place] [phone] Prescheduling, Provider Previsit Review 3 Clinical Communication Department of Neurologic Surgery in [place], [place] [address] [place] [phone] Nestor Melgoza M.D. 3 Documentation Department of Neurologic Surgery in [address] [address] Nestor Melgoza M.D. 3 12:44 AM CDT - 3 3:59 AM CDT Emergency [facility] Emergency Department [address] [place] [phone] Peter Alva M.D., M.S. Pain Back (Primary Dx) Discharge Disposition: Home or Self Care 3 12:20 PM CDT - 3 12:18 PM CDT Hospital Encounter [facility], [facility], Second Floor [address] [place] [phone] William Briggs M.D. Johnston Flanders, Megan S, M.D. Decline Functional Status [R53.81 (ICD-10-CM)] (Primary Dx); Debility [R53.81 (ICD-10-CM)]; Debility; Radiculopathy Lumbar; Pain Low Back Chronic; Morbid Obesity (HCC); Spinal Stenosis Lumbar Region Without Neurogenic Claudication; Diabetes Mellitus Type 2 Peripheral Neuropathy (HCC); Diabetes Mellitus Type 2 (HCC); Hypertension And Chronic Kidney Disease Stage 3 (HCC) Discharge Disposition: Home-Health Care [facility] 3 Clinical Communication Department of Hospital Internal Medicine in [address] [phone] Kandace Weaver APRN, C.NBri., M.S.N. 3 12:05 PM CDT Ancillary Procedure Department of Nursing 3 3:00 PM CDT Ancillary Procedure Department of Family Medicine 3 12:46 PM CDT - 3 11:20 AM CDT Hospital Encounter [facility], [facility] Fourth Floor [address] [place] [address] Leslie Mosley P.A.-C., M.S. Grzegorz Mccord P.A.-C. Jerzy Morris M.D. Palmer, Allyson K, M.D., Ph.D. Marah Ordoñez M.B.B.S., MThad Barajas M.D. Radiculopathy Lumbar (Primary Dx); Pain Back Lumbar; Decline Functional Status [R53.81 (ICD-10-CM)] Discharge Disposition: Transitional Care Unit 3 Orders Only Department of Neurologic Surgery in [place], [place] [address] [place] [address] Jovi Teague M.D. Stenosis Spinal Lumbar With Neurogenic Claudication (Primary Dx) 3 Clinical Communication RST [facility] [address] [place] [address] Susan Whiting P.A.-C. 3 Clinical Communication [facility]ST [facility] [address] [place] [phone] Charlene Redman M.D. Pre-visit Testing Orders; Follow-up Orders; Order Request 3 Orders Only [facility]ST [facility] [address] [place] [phone] Altagracia Moseley M.B.B.S., M.D. 3 Clinical Communication RST [facility] [address] [place] [phone] Altagracia Moseley M.B.B.S., M.D. Order Request 2 Documentation Department of Cardiovascular Medicine in [place], [place] [address] [place] [address] Kristian Dasilva M.D. 2 7:21 AM CENTRIFUGAL CHILLER TECHNICIAN - 2 7:37 AM CENTRIFUGAL CHILLER TECHNICIAN Hospital Encounter Department of Vascular Medicine in [place], [place] [address] [place] [address] Claribel Alan M.D., Ph.D. 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 Stasis Dermatitis Venous Lower Extremity Right (Primary Dx); Rash Leg; Edema Lower Extremity; Non-Pressure 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); 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) Discharge Disposition: Home or Self Care 2 Clinical Communication Department of Cardiovascular Medicine in [place], [place] [address] [place] [address] Kristian Dasilva M.D. Remote Patient Monitoring (Alert: Atrial Fibrillation ) 2 11:49 AM CDT - 2 11:59 PM CDT Hospital Encounter Division of Cardiovascular Diseases in [place], [place] [address], [place] [address] Askew, J. Wells, M.D. Atrial Fibrillation Unspecified Discharge Disposition: Home or Self Care 2 9:30 AM CDT Comprehensive Visit Department of Cardiovascular Medicine in [place], [place] [address] [place] [address] Kristian Dasilva M.D. Atrial Fibrillation Unspecified (Primary Dx); Obstructive Sleep Apnea Adult; Morbid Obesity (HCC); Diabetes Mellitus Type 2 (HCC); Hypertension And Chronic Kidney Disease Stage 3 (HCC); Anemia 2 10:12 AM CDT - 2 11:59 PM CDT Hospital Encounter Department of Radiology, [facility] in [place], [place] [address] [place] [address] Mickey Galvan M.D. Atrial Fibrillation Unspecified Discharge Disposition: Home or Self Care 2 10:22 AM CDT - 2 11:59 PM CDT Hospital Encounter Department of Laboratory Medicine and Pathology, [facility] in [place], [place] [address] [place] [address] Mickey Galvan M.D. Atrial Fibrillation Unspecified Discharge Disposition: Home or Self Care 2 9:41 AM CDT - 2 10:21 AM CDT Hospital Encounter Department of Cardiovascular Diseases in [place], [place] [address] [place] [address] Mickey Galvan M.D. Atrial Fibrillation Unspecified Discharge Disposition: Home or Self Care 2 7:30 AM CDT - 2 9:40 AM CDT Hospital Encounter Department of Cardiovascular Diseases in [place], [place] [address] [place] [phone] Mickey Galvan M.D. Atrial Fibrillation Unspecified Discharge Disposition: Home or Self Care 2 Clinical Communication Department of Cardiovascular Medicine in [place], [place] [address] [place] [phone] Restaurant Floor ManagerJorge M.D. Triage 2 9:45 AM CDT Telemedicine Center for Sleep Medicine in [place], [place] [address] [place] [phone] Dae Velásquez M.D., M.S. Georgia Rios R.N., CCRN Obstructive Sleep Apnea Adult 2 11:30 AM CDT Telemedicine Center [facility] in [place], [place] [address] [place] [address] Dae Velásquez M.D., M.S. Obstructive Sleep Apnea Adult (Primary Dx); Morbid Obesity (HCC); Obesity Body Mass Index 30-39.9 Adult; Fatigue 2 8:00 AM CDT Telemedicine Department of Urology in [place], [place] [address] [place] [address] Suzette Fox APRN, C.N.P., D.N.P. Diabetes Mellitus Type 2 (HCC) (Primary Dx); Infection Urinary Tract 2 Clinical Communication Department of Cardiovascular Medicine in [place], [place] [address] [place] [phone] Restaurant Floor ManagerJorge M.D. Triage (Cons/ neph/ Jade/ [id number]) 2 Clinical Communication Department of Urology in [place], [place] [address] [place] [address] Faye Bhatia APRN, C.N.P., D.N.P. Phone call 2 4:30 PM CENTRIFUGAL CHILLER TECHNICIAN Virtual Visit Division of Nephrology and Hypertension in [place], [place] [address] [place] [phone] Mickey Galvan M.D. Infection Urinary Tract; Diabetes Mellitus Type 2 (HCC) 1 Refill [facility] in [place], [place] [address] [place] [address] Dae Velásquez M.D., M.S. Med Refill (cpap protocal ) 1 Clinical Communication Department of Urology in [place], [place] [address] [place] [address] Zahira Rae P.A.-C. 1 8:45 AM CENTRIFUGAL CHILLER TECHNICIAN Comprehensive Visit Department of Urology in [place], [place] [address] [place] [address] Zahira Rae P.A.-C. Infection Urinary Tract (Primary Dx); Hematuria; Pyuria 1 1:30 PM CENTRIFUGAL CHILLER TECHNICIAN Procedure visit Department of Urology in [place], [place] [address] [place] [phone] Mickey Galvan M.D. Carlson, Stephen M, APRN CAjitN.P. Hematuria; Pyuria; Infection Urinary Tract; Deficiency Urethral Sphincter Intrinsic ; Neuromuscular Dysfunction Of Bladder Unspecified 1 10:58 AM CENTRIFUGAL CHILLER TECHNICIAN - 1 11:59 PM CENTRIFUGAL CHILLER TECHNICIAN Hospital Encounter Department of Laboratory Medicine and Pathology, [place], [place] [address] [place] [phone] Mickey Galvan M.D. Hematuria; Pyuria; Infection Urinary Tract Discharge Disposition: Home or Self Care 1 10:45 AM CENTRIFUGAL CHILLER TECHNICIAN Procedure visit Department of Urology in [place], [place] [address] [place] [phone] Mickey Galvan M.D. Linder, Brian J, M.D. Savita Veronica, L.P.N. Infection Urinary Tract Recurrent (Primary Dx); Infection Urinary Tract; Deficiency Urethral Sphincter Intrinsic 1 Orders Only Division of Nephrology and Hypertension in [address] [address] Miceky Galvan M.D. Hematuria (Primary Dx); Pyuria; Infection Urinary Tract; Deficiency Urethral Sphincter Intrinsic ; Neuromuscular Dysfunction Of Bladder Unspecified ; Other Specified Diabetes Mellitus With Diabetic Chronic Kidney Disease (HCC) 1 12:40 PM CDT - 1 11:59 PM CDT Hospital Encounter Department of Laboratory Medicine and Pathology, [place], [place] [address] [place] [phone] Mickey Galvan M.D. Hypertension And Chronic Kidney Disease Stage 3 Discharge Disposition: Home or Self Care 1 12:40 PM CDT - 1 11:59 PM CDT Hospital Encounter Department of Laboratory Medicine and Pathology, [facility], in [place], [place] [address] [place] [phone] Mickey Galvan M.D. Hypertension And Chronic Kidney Disease Stage 3; Dysuria Discharge Disposition: Home or Self Care 1 3:00 PM CDT Office Visit Division of Nephrology and Hypertension in [place], [place] [address] [place] [phone] Mickey Galvan M.D. Infection Urinary Tract (Primary Dx); Stones Uric Acid; Nephrolithiasis; Chronic Kidney Disease (CKD), Stage 3a Glomerular Filtration Rate (GFR) 45 To 59 ([facility]); Diabetes Mellitus Type 2 ([facility]) 1 Clinical Communication Division of Nephrology and Hypertension in [place], [place] [address] [place] [phone] Mickey Galvan M.D. Pre-visit Testing Orders 1 Clinical Communication [facility] in [place], [place] [address] [place] [phone] Dae Velásquez M.D., M.S. Med Refill (CPAP RX PROTOCOL ) 0 Clinical Communication [facility] in [place], [place] [address] [place] [phone] Dae Velásquez M.D., M.S. 0 10:00 AM CDT Telemedicine [facility] in [place], [place] [address] [place] [address] Dae Velásquez M.D., M.S. Apnea Sleep Obstructive; Diabetes Mellitus Type 2 (HCC); Hypertension And Chronic Kidney Disease Stage 3 ([facility]); Morbid Obesity Body Mass Index Greater Than Or Equal To 40 Adult ([facility]) 0 10:30 AM CENTRIFUGAL CHILLER TECHNICIAN Procedure visit Department of Urology in [place], [place] [address] [place] [address] Lynda Yanes M.D. O'Hara, Alex J, BETHANY, CAjitNAjitP., M.S.N. Stent Ureteral Indwelling (Primary Dx); Stone Kidney And Ureteral 0 12:16 PM CENTRIFUGAL CHILLER TECHNICIAN - 0 11:59 PM CENTRIFUGAL CHILLER TECHNICIAN Hospital Encounter Department of Radiology, [facility], in [place], [place] [address] [place] [address] Turner Souza M.D. Stone Kidney Discharge Disposition: Home or Self Care 9 Clinical Communication Department of Urology in [place], [place] [address] [place] [phone] Provider, Unknown surgery questions 9 Documentation Division of Breast, Endocrine, Metabolic, and Gastrointestinal Surgery in [place], [place] [address] [place] [phone] Candi Mathis M.D. 9 Clinical Communication Department of Urology in [place], [place] [address] [place] [phone] Lynda Yanes M.D. 9 9:45 AM CENTRIFUGAL CHILLER TECHNICIAN - 9 11:40 AM CENTRIFUGAL CHILLER TECHNICIAN Surgery [facility] OR [address] [place] [phone] James Mina M.D. URETEROSCOPY WITH LASER LITHOTRIPSY, proceed as indicated. 9 11:16 AM CENTRIFUGAL CHILLER TECHNICIAN Anesthesia Event [facility] [address] [place] [phone] Herman Cruz M.D. Weingarten, Toby N, M.D. 9 8:40 AM CENTRIFUGAL CHILLER TECHNICIAN - 9 4:37 PM CENTRIFUGAL CHILLER TECHNICIAN Hospital Encounter [facility] [address] [place] [phone] James Mina M.D. Stone Kidney And Ureteral Discharge Disposition: Home or Self Care 9 11:00 AM CENTRIFUGAL CHILLER TECHNICIAN Education Division of General Internal Medicine in [place], [place] [address] [place] [phone] Alicia Zapata R.N. 9 9:30 AM CENTRIFUGAL CHILLER TECHNICIAN Comprehensive Visit Division of General Internal Medicine in [place], [place] [address] [place] [address] Lynda Yanes M.D. Kebede, Esayas B, M.D. Preanesthetic Medical Exam (Primary Dx); Stone Kidney And Ureteral; Hypertension And Chronic Kidney Disease Stage 3 (HCC); Chronic Kidney Disease Stage 3 Glomerular Filtration Rate 30 To 59; Morbid Obesity Body Mass Index Greater Than Or Equal To 40 Adult (HCC); Apnea Sleep Obstructive 9 Orders Only Department of Urology in [address] [phone] Lynda Yanes M.D. 9 Clinical Communication Department of Urology in [place], [place] [address] [place] [phone] Provider, Unknown OUTSIDE LABS 9 Clinical Communication Department of Urology in [place], [place] [address] [place] [phone] Lynda Yanes M.D. Outside urine results 9 Clinical Communication Department of Urology in [address] [phone] Lynda Yanes M.D. 9 Orders Only Department of Urology in [address] [phone] Lynda Yanes M.D. Stone Kidney And Ureteral (Primary Dx) 9 3:42 AM CENTRIFUGAL CHILLER TECHNICIAN - 9 1:48 PM CENTRIFUGAL CHILLER TECHNICIAN Hospital Encounter [facility], [facility], [facility], Sixth Floor [address] [place] [phone] Rito Hays M.D. Stone Kidney And Ureteral (Primary Dx); Nephrolithiasis; Decline Functional Status Discharge Disposition: Home or Self Care 9 Orders Only Department of Urology in [address] [phone] Lynda Yanes M.D. 9 1:25 PM CENTRIFUGAL CHILLER TECHNICIAN Ancillary Procedure Department of Urology 9 11:47 AM CENTRIFUGAL CHILLER TECHNICIAN Anesthesia Event [facility] OR [address] [place] [phone] Scooby Haas M.D. Alleckson, Jonathan D, APRN, EDGARDO, D.N.P. 9 11:18 AM CENTRIFUGAL CHILLER TECHNICIAN - 9 1:13 PM CENTRIFUGAL CHILLER TECHNICIAN Surgery [facility] OR [address] [place] [phone] Ashkan Villanueva M.D. CYSTOURETHROSCOPY WITH PLACEMENT URETERAL STENT 9 Intake [facility] 9 Clinical Communication [facility] in [place], [place] [address] [place] [address] Reinier Flores M.D. Reschedule ( Automatic Appointment Reminder to reschedule appointment.) 9 Clinical Communication Division of Nephrology and Hypertension in [place], [place] [address] [place] [address] Mickey Galvan M.D. phone call 9 Orders Only Department of Urology in [place], [place] [address] [place] [address] Turner Souza M.D. Stone Kidney 9 7:00 AM CDT - 9 11:59 PM CDT Hospital Encounter Department of Radiology, [facility], in [place], [place] [address] [place] [address] Mickey Galvan M.D. Stones Uric Acid Discharge Disposition: Home or Self Care 9 10:30 AM CDT Office Visit Division of Nephrology and Hypertension in [place], [place] [address] [place] [address] Mickey Galvan M.D. Stones Uric Acid (Primary Dx); Diabetes Mellitus Type 2 (HCC); Morbid Obesity Body Mass Index Greater Than Or Equal To 40 Adult (HCC) 9 Orders Only Division of Nephrology and Hypertension in [place], [place] [address] [place] [phone] Mickey Galvan M.D. Diabetes Mellitus Type 2 (HCC) (Primary Dx); Morbid Obesity Body Mass Index Greater Than Or Equal To 40 Adult (HCC); Stones Uric Acid 9 11:30 AM CDT Office Visit Division of Nephrology and Hypertension in [place], [place] [address] [place] [address] Mickey Galvan M.D. Stones Uric Acid (Primary Dx) 9 3:00 PM CDT Clinical Support Department of Nutrition and Diabetes Education in [place], [place] [address] [place] [phone] Whitney Monroe M.S., RDN, LD Stone Kidney 9 11:48 AM CDT - 9 11:59 PM CDT Hospital Encounter Department of Radiology, [place], [place] [address] [place] [address] Mickey Galvan M.D. Stone Kidney Discharge Disposition: Home or Self Care 9 10:20 AM CDT - 9 10:32 AM CDT Hospital Encounter Department of Laboratory Medicine and Pathology, [place], [place] [address] [place] [phone] Mickey Galvan M.D. Stone Kidney Discharge Disposition: Home or Self Care 9 10:34 AM CDT - 9 11:47 AM CDT Hospital Encounter Department of Laboratory Medicine and Pathology, [place], [place] [address] [place] [phone] Mickey Galvan M.D. Stone Kidney Discharge Disposition: Home or Self Care 9 10:33 AM CDT Hospital Encounter Department of Laboratory Medicine and Pathology, [place], [place] [address] [place] [phone] Mickey Galvan M.D. Stone Kidney Discharge Disposition: Home or Self Care 9 Orders Only Division of Nephrology and Hypertension in [place], [place] [address] [place] [address] Mickey Galvan M.D. Diabetes Mellitus Type 2 (HCC) (Primary Dx); Stone Kidney 9 9:30 AM CDT Comprehensive Visit Division of Nephrology and Hypertension in [place], [place] [address] [place] [address] Mickey Galvan M.D. Diabetes Mellitus Type 2 (HCC) (Primary Dx); Morbid Obesity Body Mass Index Greater Than Or Equal To 40 Adult (HCC); Nephrolithiasis Calcium Oxalate; Stones Uric Acid; Proteinuria; Hypertension Essential Primary 9 [facility]ill [facility] in [place], [place] [address] [place] [phone] Reinier Flores M.D. Med Refill (cpap protocol) 8 Clinical Communication Division of Nephrology and Hypertension in [place], [place] [address] [place] [address] Kevin Santiago M.D., Ph.D. Pre-visit Testing Orders (02/13 appt) 8 Abstract DATA ABSTRACTION Provider, Historical 8 [facility]ill [facility] in [place], [place] [address] [place] [address] Nestor Quezada R.N. Med Refill (CPAP PROTOCOL) 8 Orders Only [facility] in [place], [place] [address] [place] [address] Reinier Flores M.D. 7 - 7 11:59 PM CDT Hospital Encounter HX NO MAPPING 5 7:53 PM CDT - 5 2:58 PM CDT Hospital Encounter HX RST UNIT 5-4 GYNECOLOGY 5 - 5 7:54 AM CDT Hospital Encounter HX NO MAPPING 5 - 5 11:59 PM CDT Hospital Encounter HX NO MAPPING 5 8:50 AM CDT - 5 11:52 AM CDT Hospital Encounter HX [...] 150 beats. 02/06 - day mobile cardiac court recording monitor: underlying rhythm of sinus, intermittent sinus [...] Functional Status 10/08/2022 Radiculopathy Lumbar 10/07/2022 10/07/2022 Major Depressive Disorder, Recurrent, Unspecifie d 08/20/2022 10/07/2022 Overview: On duloxetine Meets with a counselor [...] 4. Electronically signed by: Kimi Manzano M.D. [phone] 10-Aug-2016 12:45 Failed Gabapentin in 12/2022. Switched [...] - will check with pcp) PCV20 10/05/2021 PPSV23 05/29/2007 Pneumococcal, Unspecified 04/02/2019(Deferred: O ther),04/19/2011 RZV (SHINGRIX) 04/06/2023(Deferred: Other - will check with pcp) SARS-COV-2 (COVID-19) - MODE RNA (12 YEARS AND OLDER) [id number] 02/18/2023 Td (Adult), adsorbed 04/02/2019(Deferred : Other [...] cousins Maternal Grandfather (Age 60s) d . [place] Maternal Grandmother (Age 81) Mother (Age 87) Mother's Brother (Age 80s) Heart issues Niece/Nephew Alive No cancer hx fo r nieces or nephews Paternal Cousin Alive No known can cer hx for cousins Paternal Grandfather (Age 60s) d . Heart issues/ Stroke Paternal Grandmother (Age 80s) H eart issues Sister (Age 61) d. Cancer Social History Smoking Status as of 10/11/2023 Tobacco Use Types Packs/Day Years Used Date Smoking Tobacco: Never Assessed [facility] Utilities Answer Date Recorded In the past 12 months has e [employer], [employer], or water [employer] threatened to shut off services in your [...] How often do you attend chur or amish services? More than 4 times [...] and heating? Not hard at all 02/11/2023 [facility] - Occupational Stress Questionnaire Answer Date [...] Sex Assigned at Male 06/14/2018 8:36 PM CENTRIFUGAL CHILLER TECHNICIAN Gender Identity Male 10/11/2022 10:17 PM CDT Sexual Orientation Choose not to disclose 2019 1:31 PM CENTRIFUGAL CHILLER TECHNICIAN Last Filed Vital Signs Vital Sign Reading [...] 185 cm (6' 0.84) 05/11/2023 2:15 PM CENTRIFUGAL CHILLER TECHNICIAN Body Mass Index 55.11 05/11/2023 2:15 PM CENTRIFUGAL CHILLER TECHNICIAN Plan of Treatment Not on file Medical Devices Explanted Type Area Fabric And Accessories Estimator Device Identifier Shelf Expiration Date Model / Serial / Lot Stnt Uret Inl 6fx26 - [id number] Implanted:Qty : 1 on 04/04/2019 by Julian Mayfield M.D. at [facility] Ureteral Stent Right: Ureter [employer] [id number] 01/25/2022 [id number] / / [id number] Stnt Uret Inl 7fx26 - [id number] Implanted:Qty : 1 on 03/12/2019 by Ashkan Villanueva M.D. at [facility] Explanted: by Keith Lovelace APRN, C.N.P., M.S.N. 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 prollie Routine 06/01/2023 12:00 AM CENTRIFUGAL CHILLER TECHNICIAN MISCELLANEOUS SENT OUT LAB TEST Routine 06/01/2023 12:00 AM CENTRIFUGAL CHILLER TECHNICIAN Malignant Neoplasm Of Colon Ascending (HCC) GLUCOSE POCT, B Routine 05/16/2023 9:35 AM CENTRIFUGAL CHILLER TECHNICIAN GLUCOSE POCT, B Routine 05/15/2023 9:10 PM CENTRIFUGAL CHILLER TECHNICIAN GLUCOSE POCT, B Routine 05/15/2023 4:41 PM CENTRIFUGAL CHILLER TECHNICIAN GLUCOSE POCT, B Routine 05/15/2023 2:04 PM CENTRIFUGAL CHILLER TECHNICIAN SARS COV-2 RNA, PCR, VARIES Routine 05/15/2023 9:10 AM CENTRIFUGAL CHILLER TECHNICIAN REMOTE OXIMETRY MONITORING CONT. Routine 05/15/2023 8:00 AM CENTRIFUGAL CHILLER TECHNICIAN GLUCOSE POCT, B Routine 05/15/2023 7:46 AM CENTRIFUGAL CHILLER TECHNICIAN GLUCOSE POCT, B Routine 05/14/2023 8:33 PM CENTRIFUGAL CHILLER TECHNICIAN REMOTE OXIMETRY MONITORING CONT. Routine 05/14/2023 8:01 PM CENTRIFUGAL CHILLER TECHNICIAN GLUCOSE POCT, B Routine 05/14/2023 4:04 PM CENTRIFUGAL CHILLER TECHNICIAN GLUCOSE POCT, B Routine 05/14/2023 1:51 PM CENTRIFUGAL CHILLER TECHNICIAN GLUCOSE POCT, B Routine 05/14/2023 12:13 PM CENTRIFUGAL CHILLER TECHNICIAN REMOTE OXIMETRY MONITORING CONT. Routine 05/14/2023 8:01 AM CENTRIFUGAL CHILLER TECHNICIAN GLUCOSE POCT, B Routine 05/14/2023 7:33 AM CENTRIFUGAL CHILLER TECHNICIAN GLUCOSE POCT, B Routine 05/13/2023 10:05 PM CENTRIFUGAL CHILLER TECHNICIAN REMOTE OXIMETRY MONITORING CONT. Routine 05/13/2023 8:00 PM CENTRIFUGAL CHILLER TECHNICIAN GLUCOSE POCT, B Routine 05/13/2023 3:10 PM CENTRIFUGAL CHILLER TECHNICIAN REMOTE OXIMETRY MONITORING CONT. Routine 05/13/2023 8:01 AM CENTRIFUGAL CHILLER TECHNICIAN GLUCOSE POCT, B Routine 05/13/2023 7:52 AM CENTRIFUGAL CHILLER TECHNICIAN GLUCOSE POCT, B Routine 05/13/2023 3:55 AM CENTRIFUGAL CHILLER TECHNICIAN REMOTE OXIMETRY MONITORING CONT. Routine 05/13/2023 12:51 AM CENTRIFUGAL CHILLER TECHNICIAN REMOTE OXIMETRY MONITORING CONT. Routine 05/13/2023 12:51 AM CENTRIFUGAL CHILLER TECHNICIAN REMOTE OXIMETRY MONITORING CONT. Routine 05/13/2023 12:51 AM CENTRIFUGAL CHILLER TECHNICIAN GLUCOSE POCT, B Routine 05/12/2023 8:33 PM CENTRIFUGAL CHILLER TECHNICIAN HIV-1/HIV-2 AB RAPID PT SOURCE, B STAT 05/12/2023 5:44 PM CENTRIFUGAL CHILLER TECHNICIAN HIV-1/-2 AG AND AB PS, PLASMA STAT 05/12/2023 5:44 PM CENTRIFUGAL CHILLER TECHNICIAN HBS ANTIGEN PATIENT SOURCE STAT 05/12/2023 5:44 PM CENTRIFUGAL CHILLER TECHNICIAN HCV RNA PT SOURCE, S STAT 05/12/2023 5:44 PM CENTRIFUGAL CHILLER TECHNICIAN GLUCOSE POCT, B Routine 05/12/2023 4:32 PM CENTRIFUGAL CHILLER TECHNICIAN MAYOCOMPLETE CRC PANEL Routine 3:47 PM CENTRIFUGAL CHILLER TECHNICIAN GLUCOSE POCT, B Routine 05/12/2023 1:47 PM CENTRIFUGAL CHILLER TECHNICIAN ADULT OXYGEN THERAPY Routine 05/12/2023 1:29 PM CENTRIFUGAL CHILLER TECHNICIAN SURGICAL PATHOLOGY, [facility] Routine 05/12/2023 12:49 PM CENTRIFUGAL CHILLER TECHNICIAN Malignant Neoplasm Of Colon Ascending (HCC) GLUCOSE POCT, B Routine 05/12/2023 11:26 AM CENTRIFUGAL CHILLER TECHNICIAN LDA ANE ARTERIAL LINE INSERTION Routine 05/12/2023 10:45 AM CENTRIFUGAL CHILLER TECHNICIAN FL ARTL CATH/CNULA MONITOR PERC Routine 05/12/2023 10:45 AM CENTRIFUGAL CHILLER TECHNICIAN LDA ANE ENDOTRACHEAL AIRWAY Routine 05/12/2023 10:31 AM CENTRIFUGAL CHILLER TECHNICIAN LAPAROSCOPIC COLECTOMY RIGHT WITH ANASTOMOSIS 05/12/2023 9:59 AM CENTRIFUGAL CHILLER TECHNICIAN Malignant Neoplasm Of Colon Ascending (HCC) GLUCOSE POCT, B Routine 05/12/2023 9:07 AM CENTRIFUGAL CHILLER TECHNICIAN GLUCOSE POCT, B Routine 05/11/2023 9:40 PM CENTRIFUGAL CHILLER TECHNICIAN GLUCOSE POCT, B Routine 05/11/2023 4:56 PM CENTRIFUGAL CHILLER TECHNICIAN ANTIBODY IDENTIFICATION Routine 05/11/19 3:18 PM CENTRIFUGAL CHILLER TECHNICIAN HEMOGLOBIN A1C, B Routine 05/11/2023 3:18 PM CENTRIFUGAL CHILLER TECHNICIAN TYPE AND SCREEN Routine 05/11/2023 3:18 PM CENTRIFUGAL CHILLER TECHNICIAN CBC WITH DIFFERENTIAL, B Routine 05/11/2023 3:18 PM CENTRIFUGAL CHILLER TECHNICIAN BASIC METABOLIC PANEL, S/P Routine 05/11/2023 3:18 PM CENTRIFUGAL CHILLER TECHNICIAN GLUCOSE POCT, B Routine 04/27/2023 7:05 AM CENTRIFUGAL CHILLER TECHNICIAN MAGNESIUM, S Routine 04/27/2023 6:34 AM CENTRIFUGAL CHILLER TECHNICIAN BASIC METABOLIC PANEL, S/P Routine 04/27/2023 6:34 AM CENTRIFUGAL CHILLER TECHNICIAN GLUCOSE POCT, B Routine 04/26/2023 9:34 PM CENTRIFUGAL CHILLER TECHNICIAN GLUCOSE POCT, B Routine 04/26/2023 5:03 PM CENTRIFUGAL CHILLER TECHNICIAN URINALYSIS WITH MICROSCOPIC Routine 04/26/2023 2:10 PM CENTRIFUGAL CHILLER TECHNICIAN GLUCOSE POCT, B Routine 04/26/2023 11:58 AM CENTRIFUGAL CHILLER TECHNICIAN ADULT OXYGEN THERAPY Routine 04/26/2023 8:00 AM CENTRIFUGAL CHILLER TECHNICIAN GLUCOSE POCT, B Routine 04/26/2023 7:03 AM CENTRIFUGAL CHILLER TECHNICIAN GLUCOSE POCT, B Routine 04/25/2023 8:29 PM CENTRIFUGAL CHILLER TECHNICIAN ADULT OXYGEN THERAPY Routine 04/25/2023 8:00 PM CENTRIFUGAL CHILLER TECHNICIAN GLUCOSE POCT, B Routine 04/25/2023 4:57 PM CENTRIFUGAL CHILLER TECHNICIAN GLUCOSE POCT, B Routine 04/25/2023 12:02 PM CENTRIFUGAL CHILLER TECHNICIAN ADULT OXYGEN THERAPY Routine 04/25/2023 8:00 AM CENTRIFUGAL CHILLER TECHNICIAN GLUCOSE POCT, B Routine 04/25/2023 6:57 AM CENTRIFUGAL CHILLER TECHNICIAN GLUCOSE POCT, B Routine 04/24/2023 9:10 PM CENTRIFUGAL CHILLER TECHNICIAN ADULT OXYGEN THERAPY Routine 04/24/2023 8:00 PM CENTRIFUGAL CHILLER TECHNICIAN GLUCOSE POCT, B Routine 04/24/2023 4:54 PM CENTRIFUGAL CHILLER TECHNICIAN GLUCOSE POCT, B Routine 04/24/2023 12:00 PM CENTRIFUGAL CHILLER TECHNICIAN MAGNESIUM, S Routine 04/24/2023 9:36 AM CENTRIFUGAL CHILLER TECHNICIAN COMPREHENSIVE METABOLIC PANEL, S/P Routine 04/24/2023 9:36 AM CENTRIFUGAL CHILLER TECHNICIAN ADULT OXYGEN THERAPY Routine 04/24/2023 8:00 AM CENTRIFUGAL CHILLER TECHNICIAN GLUCOSE POCT, B Routine 04/24/2023 6:59 AM CENTRIFUGAL CHILLER TECHNICIAN GLUCOSE POCT, B Routine 04/23/2023 9:10 PM CENTRIFUGAL CHILLER TECHNICIAN ADULT OXYGEN THERAPY Routine 04/23/2023 8:01 PM CENTRIFUGAL CHILLER TECHNICIAN GLUCOSE POCT, B Routine 04/23/2023 5:10 PM CENTRIFUGAL CHILLER TECHNICIAN GLUCOSE POCT, B Routine 04/23/2023 12:05 PM CENTRIFUGAL CHILLER TECHNICIAN ADULT OXYGEN THERAPY Routine 04/23/2023 8:00 AM CENTRIFUGAL CHILLER TECHNICIAN GLUCOSE POCT, B Routine 04/23/2023 7:01 AM CENTRIFUGAL CHILLER TECHNICIAN GLUCOSE POCT, B Routine 04/22/2023 9:02 PM CENTRIFUGAL CHILLER TECHNICIAN ADULT OXYGEN THERAPY Routine 04/22/2023 8:00 PM CENTRIFUGAL CHILLER TECHNICIAN GLUCOSE POCT, B Routine 04/22/2023 4:54 PM CENTRIFUGAL CHILLER TECHNICIAN GLUCOSE POCT, B Routine 04/22/2023 11:59 AM CENTRIFUGAL CHILLER TECHNICIAN ADULT OXYGEN THERAPY Routine 04/22/2023 8:01 AM CENTRIFUGAL CHILLER TECHNICIAN GLUCOSE POCT, B Routine 04/22/2023 7:09 AM CENTRIFUGAL CHILLER TECHNICIAN GLUCOSE POCT, B Routine 04/21/2023 9:56 PM CENTRIFUGAL CHILLER TECHNICIAN ADULT OXYGEN THERAPY Routine 04/21/2023 8:00 PM CENTRIFUGAL CHILLER TECHNICIAN GLUCOSE POCT, B Routine 04/21/2023 5:14 PM CENTRIFUGAL CHILLER TECHNICIAN GLUCOSE POCT, B Routine 04/21/2023 12:00 PM CENTRIFUGAL CHILLER TECHNICIAN BASIC METABOLIC PANEL, S/P Routine 04/21/2023 8:40 AM CENTRIFUGAL CHILLER TECHNICIAN CBC WITH DIFFERENTIAL, B Routine 04/21/2023 8:40 AM CENTRIFUGAL CHILLER TECHNICIAN ADULT OXYGEN THERAPY Routine 04/21/2023 8:01 AM CENTRIFUGAL CHILLER TECHNICIAN GLUCOSE POCT, B Routine 04/21/2023 7:01 AM CENTRIFUGAL CHILLER TECHNICIAN GLUCOSE POCT, B Routine 04/20/2023 8:24 PM CENTRIFUGAL CHILLER TECHNICIAN ADULT OXYGEN THERAPY Routine 04/20/2023 8:01 PM CENTRIFUGAL CHILLER TECHNICIAN GLUCOSE POCT, B Routine 04/20/2023 5:08 PM CENTRIFUGAL CHILLER TECHNICIAN BACTERIA / RONDA CULTURE, BLOOD Routine 04/20/2023 12:50 PM CENTRIFUGAL CHILLER TECHNICIAN BACTERIA / RONDA CULTURE, BLOOD Routine 04/20/2023 12:41 PM CENTRIFUGAL CHILLER TECHNICIAN GLUCOSE POCT, B Routine 04/20/2023 12:06 PM CENTRIFUGAL CHILLER TECHNICIAN ADULT OXYGEN THERAPY Routine 04/20/2023 8:00 AM CENTRIFUGAL CHILLER TECHNICIAN GLUCOSE POCT, B Routine 04/20/2023 6:57 AM CENTRIFUGAL CHILLER TECHNICIAN CBC WITH DIFFERENTIAL, B Routine 04/20/2023 5:46 AM CENTRIFUGAL CHILLER TECHNICIAN BASIC METABOLIC PANEL, S/P Routine 04/20/2023 5:46 AM CENTRIFUGAL CHILLER TECHNICIAN ADULT OXYGEN THERAPY Routine 04/19/2023 8:01 PM CENTRIFUGAL CHILLER TECHNICIAN GLUCOSE POCT, B Routine 04/19/2023 7:47 PM CENTRIFUGAL CHILLER TECHNICIAN GLUCOSE POCT, B Routine 04/19/2023 5:07 PM CENTRIFUGAL CHILLER TECHNICIAN GLUCOSE POCT, B Routine 04/19/2023 12:09 PM CENTRIFUGAL CHILLER TECHNICIAN ADULT OXYGEN THERAPY Routine 04/19/2023 8:02 AM CENTRIFUGAL CHILLER TECHNICIAN GLUCOSE POCT, B Routine 04/19/2023 7:24 AM CENTRIFUGAL CHILLER TECHNICIAN BASIC METABOLIC PANEL, S/P Routine 04/19/2023 5:50 AM CENTRIFUGAL CHILLER TECHNICIAN CBC WITH DIFFERENTIAL, B Routine 04/19/2023 5:50 AM CENTRIFUGAL CHILLER TECHNICIAN GLUCOSE POCT, B Routine 04/18/2023 9:11 PM CENTRIFUGAL CHILLER TECHNICIAN ADULT OXYGEN THERAPY Routine 04/18/2023 8:00 PM CENTRIFUGAL CHILLER TECHNICIAN GLUCOSE POCT, B Routine 04/18/2023 4:50 PM CENTRIFUGAL CHILLER TECHNICIAN LACTATE, B/P Routine 04/18/2023 4:33 PM CENTRIFUGAL CHILLER TECHNICIAN INFLUENZA A, B, RSV, PCR, POCT Routine 04/18/2023 3:25 PM CENTRIFUGAL CHILLER TECHNICIAN SARS CORONAVIRUS 2, PCR RAPID, V Routine 04/18/2023 3:25 PM [employer] TECHNICIAN CT ABDOMEN PELVIS WITH IV CONTRAST RAD - Routine (most inpatients and all outpatients) 04/18/2023 2:12 PM [employer] TECHNICIAN URINALYSIS WITH MICROSCOPIC Routine 04/18/2023 12:50 PM [employer] TECHNICIAN BACTERIA / RONDA CULTURE, BLOOD Routine 04/18/2023 12:34 PM [employer] TECHNICIAN LACTATE, B/P STAT 04/18/2023 12:29 PM [employer] TECHNICIAN LACTATE FOR SEPSIS WITH REFLEX STAT 04/18/2023 12:29 PM [employer] TECHNICIAN ANTIMICROBIAL SUSCEPTIBILITY, ANAEROBIC BACTERIA, JEANCARLOS Routine 04/18/2023 12:29 PM [employer] TECHNICIAN BACTERIA / RONDA CULTURE, BLOOD Routine 04/18/2023 12:29 PM [employer] TECHNICIAN COMPREHENSIVE METABOLIC PANEL, S/P STAT 04/18/2023 12:28 PM [employer] TECHNICIAN CBC WITH DIFFERENTIAL, B STAT 04/18/2023 12:28 PM [employer] TECHNICIAN GLUCOSE POCT, B Routine 04/18/2023 11:26 AM [employer] TECHNICIAN ADULT OXYGEN THERAPY Routine 04/18/2023 8:00 AM [employer] TECHNICIAN GLUCOSE POCT, B Routine 04/18/2023 7:22 AM [employer] TECHNICIAN GLUCOSE POCT, B Routine 04/17/2023 9:09 PM [employer] TECHNICIAN ADULT OXYGEN THERAPY Routine 04/17/2023 8:00 PM [employer] TECHNICIAN GLUCOSE POCT, B Routine 04/17/2023 5:11 PM [employer] TECHNICIAN GLUCOSE POCT, B Routine 04/17/2023 11:50 AM [employer] TECHNICIAN ADULT OXYGEN THERAPY Routine 04/17/2023 8:00 AM [employer] TECHNICIAN GLUCOSE POCT, B Routine 04/17/2023 7:33 AM [employer] TECHNICIAN GLUCOSE POCT, B Routine 04/16/2023 9:50 PM [employer] TECHNICIAN ADULT OXYGEN THERAPY Routine 04/16/2023 8:00 PM [employer] TECHNICIAN GLUCOSE POCT, B Routine 04/16/2023 5:14 PM [employer] TECHNICIAN GLUCOSE POCT, B Routine 04/16/2023 12:26 PM [employer] TECHNICIAN ADULT OXYGEN THERAPY Routine 04/16/2023 8:00 AM [employer] TECHNICIAN GLUCOSE POCT, B Routine 04/16/2023 7:33 AM [employer] TECHNICIAN GLUCOSE POCT, B Routine 04/15/2023 8:59 PM [employer] TECHNICIAN ADULT OXYGEN THERAPY Routine 04/15/2023 8:00 PM [employer] TECHNICIAN GLUCOSE POCT, B Routine 04/15/2023 5:21 PM [employer] TECHNICIAN GLUCOSE POCT, B Routine 04/15/2023 12:03 PM [employer] TECHNICIAN ECG Routine 04/15/2023 9:35 AM [employer] TECHNICIAN ADULT OXYGEN THERAPY Routine 04/15/2023 8:01 AM [employer] TECHNICIAN GLUCOSE POCT, B Routine 04/15/2023 7:19 AM [employer] TECHNICIAN MORPHOLOGY EVALUATION Routine 04/15/2023 5:56 AM [employer] TECHNICIAN CBC WITH DIFFERENTIAL, B Routine 04/15/2023 5:56 AM [employer] TECHNICIAN GLUCOSE POCT, B Routine 04/14/2023 8:28 PM [employer] TECHNICIAN ADULT OXYGEN THERAPY Routine 04/14/2023 8:01 PM [employer] TECHNICIAN GLUCOSE POCT, B Routine 04/14/2023 5:03 PM [employer] TECHNICIAN GLUCOSE POCT, B Routine 04/14/2023 12:11 PM [employer] TECHNICIAN ADULT OXYGEN THERAPY Routine 04/14/2023 8:00 AM [employer] TECHNICIAN GLUCOSE POCT, B Routine 04/14/2023 7:10 AM [employer] TECHNICIAN ADULT OXYGEN THERAPY Routine 04/13/2023 8:00 PM [employer] TECHNICIAN GLUCOSE POCT, B Routine 04/13/2023 8:00 PM [employer] TECHNICIAN GLUCOSE POCT, B Routine 04/13/2023 5:09 PM [employer] TECHNICIAN GLUCOSE POCT, B Routine 04/13/2023 12:06 PM [employer] TECHNICIAN ADULT OXYGEN THERAPY Routine 04/13/2023 8:00 AM [employer] TECHNICIAN GLUCOSE POCT, B Routine 04/13/2023 7:27 AM [employer] TECHNICIAN URINALYSIS WITH MICROSCOPIC Routine 04/12/2023 8:52 PM [employer] TECHNICIAN BACTERIAL CULTURE, AEROBIC + SUSC, URINE Routine 04/12/2023 8:52 PM [employer] TECHNICIAN GLUCOSE POCT, B Routine 04/12/2023 8:21 PM [employer] TECHNICIAN ADULT OXYGEN THERAPY Routine 04/12/2023 8:01 PM [employer] TECHNICIAN GLUCOSE POCT, B Routine 04/12/2023 5:11 PM [employer] TECHNICIAN GLUCOSE POCT, B Routine 04/12/2023 12:10 PM [employer] TECHNICIAN ADULT OXYGEN THERAPY Routine 04/12/2023 8:01 AM [employer] TECHNICIAN GLUCOSE POCT, B Routine 04/12/2023 6:58 AM [employer] TECHNICIAN GLUCOSE POCT, B Routine 04/11/2023 8:37 PM [employer] TECHNICIAN ADULT OXYGEN THERAPY Routine 04/11/2023 8:00 PM [employer] TECHNICIAN GLUCOSE POCT, B Routine 04/11/2023 5:12 PM [employer] TECHNICIAN GLUCOSE POCT, B Routine 04/11/2023 12:08 PM [employer] TECHNICIAN ADULT OXYGEN THERAPY Routine 04/11/2023 8:00 AM [employer] TECHNICIAN GLUCOSE POCT, B Routine 04/11/2023 7:08 AM [employer] TECHNICIAN GLUCOSE POCT, B Routine 04/10/2023 8:08 PM [employer] TECHNICIAN ADULT OXYGEN THERAPY Routine 04/10/2023 8:00 PM [employer] TECHNICIAN GLUCOSE POCT, B Routine 04/10/2023 4:55 PM [employer] TECHNICIAN GLUCOSE POCT, B Routine 04/10/2023 11:58 AM [employer] TECHNICIAN ADULT OXYGEN THERAPY Routine 04/10/2023 8:00 AM [employer] TECHNICIAN GLUCOSE POCT, B Routine 04/10/2023 7:10 AM [employer] TECHNICIAN GLUCOSE POCT, B Routine 04/09/2023 8:17 PM [employer] TECHNICIAN ADULT OXYGEN THERAPY Routine 04/09/2023 8:00 PM [employer] TECHNICIAN GLUCOSE POCT, B Routine 04/09/2023 5:08 PM [employer] TECHNICIAN GLUCOSE POCT, B Routine 04/09/2023 12:04 PM [employer] TECHNICIAN ADULT OXYGEN THERAPY Routine 04/09/2023 8:01 AM [employer] TECHNICIAN GLUCOSE POCT, B Routine 04/09/2023 7:01 AM [employer] TECHNICIAN ADULT OXYGEN THERAPY Routine 04/08/2023 8:00 PM [employer] TECHNICIAN GLUCOSE POCT, B Routine 04/08/2023 7:53 PM [employer] TECHNICIAN GLUCOSE POCT, B Routine 04/08/2023 5:02 PM [employer] TECHNICIAN GLUCOSE POCT, B Routine 04/08/2023 12:08 PM [employer] TECHNICIAN ADULT OXYGEN THERAPY Routine 04/08/2023 8:01 AM [employer] TECHNICIAN GLUCOSE POCT, B Routine 04/08/2023 7:08 AM [employer] TECHNICIAN BASIC METABOLIC PANEL, S/P Routine 04/08/2023 5:52 AM [employer] TECHNICIAN CBC WITHOUT DIFFERENTIAL, B Routine 04/08/2023 5:52 AM [employer] TECHNICIAN GLUCOSE POCT, B Routine 04/07/2023 8:50 PM [employer] TECHNICIAN ADULT OXYGEN THERAPY Routine 04/07/2023 8:00 PM [employer] TECHNICIAN GLUCOSE POCT, B Routine 04/07/2023 5:00 PM [employer] TECHNICIAN GLUCOSE POCT, B Routine 04/07/2023 12:02 PM [employer] TECHNICIAN ADULT OXYGEN THERAPY Routine 04/07/2023 8:00 AM [employer] TECHNICIAN GLUCOSE POCT, B Routine 04/07/2023 7:19 AM [employer] TECHNICIAN C-REACTIVE PROTEIN (CRP), S/P Routine 04/07/2023 6:08 AM [employer] TECHNICIAN GLUCOSE POCT, B Routine 04/06/2023 8:52 PM [employer] TECHNICIAN ADULT OXYGEN THERAPY Routine 04/06/2023 8:00 PM [employer] TECHNICIAN GLUCOSE POCT, B Routine 04/06/2023 5:16 PM [employer] TECHNICIAN ADULT OXYGEN THERAPY Routine 04/06/2023 8:01 AM [employer] TECHNICIAN GLUCOSE POCT, B Routine 04/06/2023 6:53 AM [employer] TECHNICIAN GLUCOSE POCT, B Routine 04/05/2023 8:27 PM [employer] TECHNICIAN ADULT OXYGEN THERAPY Routine 04/05/2023 8:00 PM [employer] TECHNICIAN GLUCOSE POCT, B Routine 04/05/2023 5:04 PM [employer] TECHNICIAN GLUCOSE POCT, B Routine 04/05/2023 11:58 AM [employer] TECHNICIAN ADULT OXYGEN THERAPY Routine 04/05/2023 8:01 AM [employer] TECHNICIAN GLUCOSE POCT, B Routine 04/05/2023 7:15 AM [employer] TECHNICIAN GLUCOSE POCT, B Routine 04/04/2023 8:05 PM [employer] TECHNICIAN ADULT OXYGEN THERAPY Routine 04/04/2023 8:01 PM [employer] TECHNICIAN GLUCOSE POCT, B Routine 04/04/2023 4:58 PM [employer] TECHNICIAN GLUCOSE POCT, B Routine 04/04/2023 12:00 PM [employer] TECHNICIAN ADULT OXYGEN THERAPY Routine 04/04/2023 8:01 AM [employer] TECHNICIAN GLUCOSE POCT, B Routine 04/04/2023 7:13 AM [employer] TECHNICIAN MORPHOLOGY EVALUATION Routine 04/04/2023 4:42 AM [employer] TECHNICIAN CBC WITH DIFFERENTIAL, B Routine 04/04/2023 4:42 AM [employer] TECHNICIAN GLUCOSE POCT, B Routine 04/03/2023 8:58 PM [employer] TECHNICIAN ADULT OXYGEN THERAPY Routine 04/03/2023 8:00 PM [employer] TECHNICIAN GLUCOSE POCT, B Routine 04/03/2023 5:15 PM [employer] TECHNICIAN GLUCOSE POCT, B Routine 04/03/2023 12:11 PM [employer] TECHNICIAN ADULT OXYGEN THERAPY Routine 04/03/2023 8:00 AM [employer] TECHNICIAN GLUCOSE POCT, B Routine 04/03/2023 7:09 AM [employer] TECHNICIAN GLUCOSE POCT, B Routine 04/02/2023 8:44 PM [employer] TECHNICIAN ADULT OXYGEN THERAPY Routine 04/02/2023 8:00 PM [employer] TECHNICIAN GLUCOSE POCT, B Routine 04/02/2023 5:31 PM [employer] TECHNICIAN GLUCOSE POCT, B Routine 04/02/2023 12:02 PM [employer] TECHNICIAN ADULT OXYGEN THERAPY Routine 04/02/2023 8:00 AM [employer] TECHNICIAN GLUCOSE POCT, B Routine 04/02/2023 7:19 AM [employer] TECHNICIAN GLUCOSE POCT, B Routine 04/01/2023 8:42 PM [employer] TECHNICIAN ADULT OXYGEN THERAPY Routine 04/01/2023 8:00 PM [employer] TECHNICIAN GLUCOSE POCT, B Routine 04/01/2023 5:26 PM [employer] TECHNICIAN GLUCOSE POCT, B Routine 04/01/2023 12:20 PM [employer] TECHNICIAN ADULT OXYGEN THERAPY Routine 04/01/2023 8:00 AM [employer] TECHNICIAN GLUCOSE POCT, B Routine 04/01/2023 7:07 AM [employer] TECHNICIAN GLUCOSE POCT, B Routine 03/31/2023 8:05 PM [employer] TECHNICIAN ADULT OXYGEN THERAPY Routine 03/31/2023 8:00 PM [employer] TECHNICIAN GLUCOSE POCT, B Routine 03/31/2023 5:14 PM [employer] TECHNICIAN URINALYSIS WITH MICROSCOPIC Routine 03/31/2023 4:59 PM [employer] TECHNICIAN GLUCOSE POCT, B Routine 03/31/2023 12:03 PM [employer] TECHNICIAN ADULT OXYGEN THERAPY Routine 03/31/2023 8:01 AM [employer] TECHNICIAN GLUCOSE POCT, B Routine 03/31/2023 7:09 AM [employer] TECHNICIAN GLUCOSE POCT, B Routine 03/30/2023 8:42 PM [employer] TECHNICIAN ADULT OXYGEN THERAPY Routine 03/30/2023 8:01 PM [employer] TECHNICIAN GLUCOSE POCT, B Routine 03/30/2023 5:02 PM [employer] TECHNICIAN GLUCOSE POCT, B Routine 03/30/2023 12:16 PM [employer] TECHNICIAN ADULT OXYGEN THERAPY Routine 03/30/2023 8:01 AM [employer] TECHNICIAN GLUCOSE POCT, B Routine 03/30/2023 7:15 AM [employer] TECHNICIAN GLUCOSE POCT, B Routine 03/29/2023 8:35 PM [employer] TECHNICIAN ADULT OXYGEN THERAPY Routine 03/29/2023 8:00 PM [employer] TECHNICIAN GLUCOSE POCT, B Routine 03/29/2023 5:22 PM [employer] TECHNICIAN GLUCOSE POCT, B Routine 03/29/2023 12:18 PM [employer] TECHNICIAN ADULT OXYGEN THERAPY Routine 03/29/2023 8:00 AM [employer] TECHNICIAN GLUCOSE POCT, B Routine 03/29/2023 7:06 AM [employer] TECHNICIAN GLUCOSE POCT, B Routine 03/28/2023 9:11 PM [employer] TECHNICIAN ADULT OXYGEN THERAPY Routine 03/28/2023 8:00 PM [employer] TECHNICIAN GLUCOSE POCT, B Routine 03/28/2023 5:15 PM [employer] TECHNICIAN GLUCOSE POCT, B Routine 03/28/2023 12:21 PM [employer] TECHNICIAN ADULT OXYGEN THERAPY Routine 03/28/2023 8:00 AM [employer] TECHNICIAN GLUCOSE POCT, B Routine 03/28/2023 7:22 AM [employer] TECHNICIAN IRON AND TOT IRON-BINDING CAPACITY, S/P Routine 03/28/2023 6:01 AM [employer] TECHNICIAN CBC WITH DIFFERENTIAL, B Routine 03/28/2023 6:01 AM [employer] TECHNICIAN GLUCOSE POCT, B Routine 03/27/2023 8:55 PM [employer] TECHNICIAN ADULT OXYGEN THERAPY Routine 03/27/2023 8:00 PM [employer] TECHNICIAN GLUCOSE POCT, B Routine 03/27/2023 5:12 PM [employer] TECHNICIAN GLUCOSE POCT, B Routine 03/27/2023 12:23 PM [employer] TECHNICIAN CBC WITH DIFFERENTIAL, B Routine 03/27/2023 9:28 AM [employer] TECHNICIAN BASIC METABOLIC PANEL, S/P Routine 03/27/2023 9:28 AM [employer] TECHNICIAN ADULT OXYGEN THERAPY Routine 03/27/2023 8:00 AM [employer] TECHNICIAN GLUCOSE POCT, B Routine 03/27/2023 7:29 AM [employer] TECHNICIAN GLUCOSE POCT, B Routine 03/26/2023 9:23 PM [employer] TECHNICIAN ADULT OXYGEN THERAPY Routine 03/26/2023 8:00 PM [employer] TECHNICIAN GLUCOSE POCT, B Routine 03/26/2023 5:13 PM [employer] TECHNICIAN URINALYSIS WITH MICROSCOPIC Routine 03/26/2023 12:57 PM [employer] TECHNICIAN BACTERIAL CULTURE, AEROBIC + SUSC, URINE Routine 03/26/2023 12:57 PM [employer] TECHNICIAN GLUCOSE POCT, B Routine 03/26/2023 12:11 PM [employer] TECHNICIAN ADULT OXYGEN THERAPY Routine 03/26/2023 8:00 AM [employer] TECHNICIAN GLUCOSE POCT, B Routine 03/26/2023 7:14 AM [employer] TECHNICIAN HEMOGLOBIN, B Routine 03/26/2023 6:19 AM [employer] TECHNICIAN GLUCOSE POCT, B Routine 03/25/2023 9:49 PM [employer] TECHNICIAN ADULT OXYGEN THERAPY Routine 03/25/2023 8:00 PM [employer] TECHNICIAN GLUCOSE POCT, B Routine 03/25/2023 5:11 PM [employer] TECHNICIAN GLUCOSE POCT, B Routine 03/25/2023 12:25 PM [employer] TECHNICIAN ADULT OXYGEN THERAPY Routine 03/25/2023 8:02 AM [employer] TECHNICIAN GLUCOSE POCT, B Routine 03/25/2023 7:23 AM [employer] TECHNICIAN GLUCOSE POCT, B Routine 03/25/2023 1:22 AM [employer] TECHNICIAN GLUCOSE POCT, B Routine 03/24/2023 9:29 PM [employer] TECHNICIAN ADULT OXYGEN THERAPY Routine 03/24/2023 8:00 PM [employer] TECHNICIAN GLUCOSE POCT, B Routine 03/24/2023 5:00 PM [employer] TECHNICIAN GLUCOSE POCT, B Routine 03/24/2023 12:18 PM [employer] TECHNICIAN ADULT OXYGEN THERAPY Routine 03/24/2023 8:01 AM [employer] TECHNICIAN GLUCOSE POCT, B Routine 03/24/2023 7:13 AM [employer] TECHNICIAN BASIC METABOLIC PANEL (BMP), POCT, B Routine 03/24/2023 6:26 AM [employer] TECHNICIAN MORPHOLOGY EVALUATION Routine 03/24/2023 5:58 AM [employer] TECHNICIAN BASIC METABOLIC PANEL, S/P Routine 03/24/2023 5:58 AM [employer] TECHNICIAN CBC WITH DIFFERENTIAL, B Routine 03/24/2023 5:58 AM [employer] TECHNICIAN GLUCOSE POCT, B Routine 03/23/2023 8:28 PM [employer] TECHNICIAN ADULT OXYGEN THERAPY Routine 03/23/2023 8:01 PM [employer] TECHNICIAN GLUCOSE POCT, B Routine 03/23/2023 5:14 PM [employer] TECHNICIAN GLUCOSE POCT, B Routine 03/23/2023 12:18 PM [employer] TECHNICIAN ADULT OXYGEN THERAPY Routine 03/23/2023 8:02 AM [employer] TECHNICIAN GLUCOSE POCT, B Routine 03/23/2023 7:20 AM [employer] TECHNICIAN GLUCOSE POCT, B Routine 03/22/2023 8:35 PM [employer] TECHNICIAN ADULT OXYGEN THERAPY Routine 03/22/2023 8:01 PM [employer] TECHNICIAN GLUCOSE POCT, B Routine 03/22/2023 5:17 PM [employer] TECHNICIAN GLUCOSE POCT, B Routine 03/22/2023 12:08 PM [employer] TECHNICIAN HEMOGLOBIN, B Routine 03/22/2023 8:20 AM [employer] TECHNICIAN ADULT OXYGEN THERAPY Routine 03/22/2023 8:01 AM [employer] TECHNICIAN GLUCOSE POCT, B Routine 03/22/2023 7:23 AM [employer] TECHNICIAN BASIC METABOLIC PANEL, S/P Routine 03/22/2023 5:44 AM [employer] TECHNICIAN GLUCOSE POCT, B Routine 03/21/2023 8:24 PM [employer] TECHNICIAN ADULT OXYGEN THERAPY Routine 03/21/2023 8:00 PM [employer] TECHNICIAN GLUCOSE POCT, B Routine 03/21/2023 5:47 PM [employer] TECHNICIAN GLUCOSE POCT, B Routine 03/21/2023 5:11 PM [employer] TECHNICIAN TRANSFUSE RED BLOOD CELLS Routine 03/21/2023 3:40 PM [employer] TECHNICIAN PREPARE RED BLOOD CELLS Routine 03/21/20 12:29 PM [employer] TECHNICIAN TESTING LOCATION Routine 03/21/2023 12:29 PM [employer] TECHNICIAN TYPE AND SCREEN Routine 03/21/2023 12:29 PM [employer] TECHNICIAN GLUCOSE POCT, B Routine 03/21/2023 12:00 PM [employer] TECHNICIAN ADULT OXYGEN THERAPY Routine 03/21/2023 8:01 AM [employer] TECHNICIAN GLUCOSE POCT, B Routine 03/21/2023 7:19 AM [employer] TECHNICIAN MORPHOLOGY EVALUATION Routine 03/21/2023 6:09 AM [employer] TECHNICIAN CBC WITH DIFFERENTIAL, B Routine 03/21/2023 6:09 AM [employer] TECHNICIAN ALBUMIN, S/P Routine 03/21/2023 6:09 AM [employer] TECHNICIAN BASIC METABOLIC PANEL, S/P Routine 03/21/2023 6:09 AM [employer] TECHNICIAN PREALBUMIN (PAB), S Routine 03/21/2023 6:09 AM [employer] TECHNICIAN GLUCOSE POCT, B Routine 03/20/2023 9:14 PM [employer] TECHNICIAN ADULT OXYGEN THERAPY Routine 03/20/2023 8:00 PM [employer] TECHNICIAN GLUCOSE POCT, B Routine 03/20/2023 5:04 PM [employer] TECHNICIAN GLUCOSE POCT, B Routine 03/20/2023 12:20 PM [employer] TECHNICIAN ADULT OXYGEN THERAPY Routine 03/20/2023 8:00 AM [employer] TECHNICIAN GLUCOSE POCT, B Routine 03/20/2023 7:18 AM [employer] TECHNICIAN GLUCOSE POCT, B Routine 03/20/2023 2:05 AM [employer] TECHNICIAN GLUCOSE POCT, B Routine 03/19/2023 8:51 PM [employer] TECHNICIAN ADULT OXYGEN THERAPY Routine 03/19/2023 8:00 PM [employer] TECHNICIAN GLUCOSE POCT, B Routine 03/19/2023 5:01 PM [employer] TECHNICIAN GLUCOSE POCT, B Routine 03/19/2023 12:27 PM [employer] TECHNICIAN ADULT OXYGEN THERAPY Routine 03/19/2023 8:01 AM [employer] TECHNICIAN GLUCOSE POCT, B Routine 03/19/2023 7:23 AM [employer] TECHNICIAN GLUCOSE POCT, B Routine 03/18/2023 8:38 PM [employer] TECHNICIAN ADULT OXYGEN THERAPY Routine 03/18/2023 8:00 PM [employer] TECHNICIAN GLUCOSE POCT, B Routine 03/18/2023 5:13 PM [employer] TECHNICIAN GLUCOSE POCT, B Routine 03/18/2023 12:20 PM [employer] TECHNICIAN ADULT OXYGEN THERAPY Routine 03/18/2023 8:01 AM [employer] TECHNICIAN GLUCOSE POCT, B Routine 03/18/2023 7:04 AM [employer] TECHNICIAN MORPHOLOGY EVALUATION Routine 03/18/2023 5:52 AM [employer] TECHNICIAN CBC WITH DIFFERENTIAL, B Routine 03/18/2023 5:52 AM [employer] TECHNICIAN GLUCOSE POCT, B Routine 03/17/2023 8:53 PM [employer] TECHNICIAN ADULT OXYGEN THERAPY Routine 03/17/2023 8:01 PM [employer] TECHNICIAN GLUCOSE POCT, B Routine 03/17/2023 5:12 PM [employer] TECHNICIAN GLUCOSE POCT, B Routine 03/17/2023 12:24 PM [employer] TECHNICIAN ADULT OXYGEN THERAPY Routine 03/17/2023 8:02 AM [employer] TECHNICIAN GLUCOSE POCT, B Routine 03/17/2023 7:04 AM [employer] TECHNICIAN GLUCOSE POCT, B Routine 03/16/2023 8:35 PM [employer] TECHNICIAN ADULT OXYGEN THERAPY Routine 03/16/2023 8:01 PM [employer] TECHNICIAN GLUCOSE POCT, B Routine 03/16/2023 5:16 PM [employer] TECHNICIAN GLUCOSE POCT, B Routine 03/16/2023 12:06 PM [employer] TECHNICIAN ADULT OXYGEN THERAPY Routine 03/16/2023 8:01 AM [employer] TECHNICIAN GLUCOSE POCT, B Routine 03/16/2023 7:08 AM [employer] TECHNICIAN GLUCOSE POCT, B Routine 03/15/2023 8:04 PM [employer] TECHNICIAN ADULT OXYGEN THERAPY Routine 03/15/2023 8:01 PM [employer] TECHNICIAN GLUCOSE POCT, B Routine 03/15/2023 5:12 PM [employer] TECHNICIAN GLUCOSE POCT, B Routine 03/15/2023 12:18 PM [employer] TECHNICIAN ADULT OXYGEN THERAPY Routine 03/15/2023 8:01 AM [employer] TECHNICIAN GLUCOSE POCT, B Routine 03/15/2023 7:36 AM [employer] TECHNICIAN GLUCOSE POCT, B Routine 03/14/2023 8:31 PM [employer] TECHNICIAN ADULT OXYGEN THERAPY Routine 03/14/2023 8:01 PM [employer] TECHNICIAN GLUCOSE POCT, B Routine 03/14/2023 5:12 PM [employer] TECHNICIAN GLUCOSE POCT, B Routine 03/14/2023 12:29 PM [employer] TECHNICIAN NURSING IMAGE EXAM Routine 03/14/2023 11:50 AM [employer] TECHNICIAN ADULT OXYGEN THERAPY Routine 03/14/2023 8:01 AM [employer] TECHNICIAN BASIC METABOLIC PANEL, S/P Timed 03/14/2023 7:57 AM [employer] TECHNICIAN CBC WITH DIFFERENTIAL, B Timed 03/14/2023 7:57 AM [employer] TECHNICIAN GLUCOSE POCT, B Routine 03/14/2023 7:14 AM [employer] TECHNICIAN GLUCOSE POCT, B Routine 03/13/2023 8:55 PM [employer] TECHNICIAN ADULT OXYGEN THERAPY Routine 03/13/2023 8:00 PM [employer] TECHNICIAN GLUCOSE POCT, B Routine 03/13/2023 5:18 PM [employer] TECHNICIAN GLUCOSE POCT, B Routine 03/13/2023 12:08 PM [employer] TECHNICIAN ADULT OXYGEN THERAPY Routine 03/13/2023 8:00 AM [employer] TECHNICIAN GLUCOSE POCT, B Routine 03/13/2023 7:48 AM [employer] TECHNICIAN GLUCOSE POCT, B Routine 03/12/2023 8:34 PM [employer] TECHNICIAN ADULT OXYGEN THERAPY Routine 03/12/2023 8:00 PM [employer] TECHNICIAN GLUCOSE POCT, B Routine 03/12/2023 5:12 PM [employer] TECHNICIAN GLUCOSE POCT, B Routine 03/12/2023 11:58 AM [employer] TECHNICIAN ADULT OXYGEN THERAPY Routine 03/12/2023 8:01 AM [employer] TECHNICIAN GLUCOSE POCT, B Routine 03/12/2023 6:57 AM [employer] TECHNICIAN GLUCOSE POCT, B Routine 03/11/2023 8:15 PM [employer] TECHNICIAN ADULT OXYGEN THERAPY Routine 03/11/2023 8:01 PM [employer] TECHNICIAN GLUCOSE POCT, B Routine 03/11/2023 5:02 PM [employer] TECHNICIAN GLUCOSE POCT, B Routine 03/11/2023 2:41 PM [employer] TECHNICIAN GLUCOSE POCT, B Routine 03/11/2023 12:22 PM [employer] TECHNICIAN ADULT OXYGEN THERAPY Routine 03/11/2023 8:01 AM [employer] TECHNICIAN GLUCOSE POCT, B Routine 03/11/2023 7:49 AM [employer] TECHNICIAN GLUCOSE POCT, B Routine 03/11/2023 2:05 AM [employer] TECHNICIAN GLUCOSE POCT, B Routine 03/10/2023 9:12 PM [employer] TECHNICIAN GLUCOSE POCT, B Routine 03/10/2023 8:06 PM [employer] TECHNICIAN ADULT OXYGEN THERAPY Routine 03/10/2023 8:01 PM [employer] TECHNICIAN GLUCOSE POCT, B Routine 03/10/2023 7:19 PM [employer] TECHNICIAN GLUCOSE POCT, B Routine 03/10/2023 7:02 PM [employer] TECHNICIAN GLUCOSE POCT, B Routine 03/10/2023 6:43 PM [employer] TECHNICIAN GLUCOSE POCT, B Routine 03/10/2023 6:13 PM [employer] TECHNICIAN GLUCOSE POCT, B Routine 03/10/2023 5:57 PM [employer] TECHNICIAN GLUCOSE POCT, B Routine 03/10/2023 5:29 PM [employer] TECHNICIAN GLUCOSE POCT, B Routine 03/10/2023 5:06 PM [employer] TECHNICIAN GLUCOSE POCT, B Routine 03/10/2023 11:59 AM [employer] TECHNICIAN GLUCOSE POCT, B Routine 03/10/2023 8:15 AM [employer] TECHNICIAN ADULT OXYGEN THERAPY Routine 03/10/2023 8:02 AM [employer] TECHNICIAN GLUCOSE POCT, B Routine 03/10/2023 7:21 AM [employer] TECHNICIAN GLUCOSE POCT, B Routine 03/09/2023 9:10 PM [employer] TECHNICIAN ADULT OXYGEN THERAPY Routine 03/09/2023 8:01 PM [employer] TECHNICIAN GLUCOSE POCT, B Routine 03/09/2023 5:14 PM [employer] TECHNICIAN GLUCOSE POCT, B Routine 03/09/2023 12:38 PM [employer] TECHNICIAN ADULT OXYGEN THERAPY Routine 03/09/2023 8:02 AM [employer] TECHNICIAN GLUCOSE POCT, B Routine 03/09/2023 7:17 AM [employer] TECHNICIAN MORPHOLOGY EVALUATION Routine 03/09/2023 6:00 AM [employer] TECHNICIAN CBC WITH DIFFERENTIAL, B Routine 03/09/2023 6:00 AM [employer] TECHNICIAN BASIC METABOLIC PANEL, S/P Routine 03/09/2023 6:00 AM [employer] TECHNICIAN GLUCOSE POCT, B Routine 03/08/2023 9:00 PM [employer] TECHNICIAN ADULT OXYGEN THERAPY Routine 03/08/2023 8:02 PM [employer] TECHNICIAN GLUCOSE POCT, B Routine 03/08/2023 4:50 PM [employer] TECHNICIAN EMERGENCY DEPARTMENT IMAGE EXAM Routine 03/08/2023 2:50 PM [employer] TECHNICIAN ADULT OXYGEN THERAPY Routine 03/08/2023 1:59 PM [employer] TECHNICIAN ADULT OXYGEN THERAPY Routine 03/08/2023 1:59 PM [employer] TECHNICIAN GLUCOSE POCT, B Routine 03/08/2023 7:50 AM [employer] TECHNICIAN GLUCOSE POCT, B Routine 03/07/2023 8:11 PM [employer] TECHNICIAN GLUCOSE POCT, B Routine 03/07/2023 4:51 PM [employer] TECHNICIAN GLUCOSE POCT, B Routine 03/07/2023 1:03 PM [employer] TECHNICIAN GLUCOSE POCT, B Routine 03/07/2023 8:09 AM [employer] TECHNICIAN HEMOGLOBIN, B Routine 03/07/2023 7:32 AM [employer] TECHNICIAN GLUCOSE POCT, B Routine 03/06/2023 10:07 PM [employer] TECHNICIAN GLUCOSE POCT, B Routine 03/06/2023 6:12 PM [employer] TECHNICIAN GLUCOSE POCT, B Routine 03/06/2023 5:08 PM [employer] TECHNICIAN GLUCOSE POCT, B Routine 03/06/2023 12:33 PM [employer] TECHNICIAN GLUCOSE POCT, B Routine 03/06/2023 7:52 AM [employer] TECHNICIAN GLUCOSE POCT, B Routine 03/05/2023 10:37 PM [employer] TECHNICIAN GLUCOSE POCT, B Routine 03/05/2023 7:35 PM [employer] TECHNICIAN GLUCOSE POCT, B Routine 03/05/2023 3:27 PM [employer] TECHNICIAN GLUCOSE POCT, B Routine 03/05/2023 11:59 AM [employer] TECHNICIAN HEMOGLOBIN, B Routine 03/05/2023 7:39 AM [employer] TECHNICIAN GLUCOSE POCT, B Routine 03/05/2023 7:18 AM [employer] TECHNICIAN GLUCOSE POCT, B Routine 03/04/2023 10:34 PM [employer] TECHNICIAN GLUCOSE POCT, B Routine 03/04/2023 6:31 PM [employer] TECHNICIAN GLUCOSE POCT, B Routine 03/04/2023 11:29 AM [employer] TECHNICIAN GLUCOSE POCT, B Routine 03/04/2023 8:20 AM [employer] TECHNICIAN HEMOGLOBIN, B Routine 03/04/2023 6:41 AM [employer] TECHNICIAN GLUCOSE POCT, B Routine 03/03/2023 8:18 PM [employer] TECHNICIAN GLUCOSE POCT, B Routine 03/03/2023 6:32 PM [employer] TECHNICIAN GLUCOSE POCT, B Routine 03/03/2023 12:37 PM [employer] TECHNICIAN GLUCOSE POCT, B Routine 03/03/2023 9:11 AM [employer] TECHNICIAN HEMOGLOBIN, B Routine 03/03/2023 6:48 AM CENTRIFUGAL CHILLER TECHNICIAN GLUCOSE POCT, B Routine 03/02/2023 9:24 PM CENTRIFUGAL CHILLER TECHNICIAN GLUCOSE POCT, B Routine 03/02/2023 6:13 PM CENTRIFUGAL CHILLER TECHNICIAN GLUCOSE POCT, B Routine 03/02/2023 1:30 PM CENTRIFUGAL CHILLER TECHNICIAN GLUCOSE POCT, B Routine 03/02/2023 7:48 AM CENTRIFUGAL CHILLER TECHNICIAN CBC WITH DIFFERENTIAL, B Routine 03/02/2023 6:11 AM CENTRIFUGAL CHILLER TECHNICIAN BASIC METABOLIC PANEL, S/P Routine 03/02/2023 6:11 AM CENTRIFUGAL CHILLER TECHNICIAN GLUCOSE POCT, B Routine 03/01/2023 9:33 PM CENTRIFUGAL CHILLER TECHNICIAN GLUCOSE POCT, B Routine 03/01/2023 6:03 PM CENTRIFUGAL CHILLER TECHNICIAN GLUCOSE POCT, B Routine 03/01/2023 12:43 PM CENTRIFUGAL CHILLER TECHNICIAN GLUCOSE POCT, B Routine 03/01/2023 8:52 AM CENTRIFUGAL CHILLER TECHNICIAN CBC WITH DIFFERENTIAL, B Routine 03/01/2023 7:01 AM CENTRIFUGAL CHILLER TECHNICIAN BASIC METABOLIC PANEL, S/P Routine 03/01/2023 7:01 AM CENTRIFUGAL CHILLER TECHNICIAN GLUCOSE POCT, B Routine 02/28/2023 11:22 PM CENTRIFUGAL CHILLER TECHNICIAN GLUCOSE POCT, B Routine 02/28/2023 5:54 PM CENTRIFUGAL CHILLER TECHNICIAN GLUCOSE POCT, B Routine 02/28/2023 1:01 PM CENTRIFUGAL CHILLER TECHNICIAN GLUCOSE POCT, B Routine 02/28/2023 8:33 AM CENTRIFUGAL CHILLER TECHNICIAN BASIC METABOLIC PANEL, S/P Routine 02/28/2023 7:26 AM CENTRIFUGAL CHILLER TECHNICIAN CBC WITH DIFFERENTIAL, B Routine 02/28/2023 7:26 AM CENTRIFUGAL CHILLER TECHNICIAN GLUCOSE POCT, B Routine 02/27/2023 10:57 PM CENTRIFUGAL CHILLER TECHNICIAN GLUCOSE POCT, B Routine 02/27/2023 6:19 PM CENTRIFUGAL CHILLER TECHNICIAN GLUCOSE POCT, B Routine 02/27/2023 11:29 AM CENTRIFUGAL CHILLER TECHNICIAN GLUCOSE POCT, B Routine 02/27/2023 7:45 AM CENTRIFUGAL CHILLER TECHNICIAN BASIC METABOLIC PANEL, S/P Routine 02/27/2023 6:04 AM CENTRIFUGAL CHILLER TECHNICIAN CBC WITH DIFFERENTIAL, B Routine 02/27/2023 6:04 AM CENTRIFUGAL CHILLER TECHNICIAN GLUCOSE POCT, B Routine 02/26/2023 10:21 PM CENTRIFUGAL CHILLER TECHNICIAN GLUCOSE POCT, B Routine 02/26/2023 5:13 PM CENTRIFUGAL CHILLER TECHNICIAN GLUCOSE POCT, B Routine 02/26/2023 11:50 AM CENTRIFUGAL CHILLER TECHNICIAN GLUCOSE POCT, B Routine 02/26/2023 7:12 AM CENTRIFUGAL CHILLER TECHNICIAN CBC WITH DIFFERENTIAL, B Routine 02/26/2023 5:39 AM CENTRIFUGAL CHILLER TECHNICIAN BASIC METABOLIC PANEL, S/P Routine 02/26/2023 5:39 AM CENTRIFUGAL CHILLER TECHNICIAN GLUCOSE POCT, B Routine 02/25/2023 9:11 PM CENTRIFUGAL CHILLER TECHNICIAN GLUCOSE POCT, B Routine 02/25/2023 5:17 PM CENTRIFUGAL CHILLER TECHNICIAN GLUCOSE POCT, B Routine 02/25/2023 11:52 AM CENTRIFUGAL CHILLER TECHNICIAN FAMILY MEDICINE IMAGE EXAM Routine 02/25/2023 11:08 AM CENTRIFUGAL CHILLER TECHNICIAN IR LUMBAR SPINE FACET INJECTION RIGHT RAD - Routine (most inpatients and all outpatients) 02/25/2023 10:48 AM CENTRIFUGAL CHILLER TECHNICIAN GLUCOSE POCT, B Routine 02/25/2023 8:09 AM CENTRIFUGAL CHILLER TECHNICIAN HEMOGLOBIN, B Routine 02/25/2023 7:21 AM CENTRIFUGAL CHILLER TECHNICIAN GLUCOSE POCT, B Routine 02/24/2023 8:40 PM CENTRIFUGAL CHILLER TECHNICIAN GLUCOSE POCT, B Routine 02/24/2023 5:28 PM CENTRIFUGAL CHILLER TECHNICIAN GLUCOSE POCT, B Routine 02/24/2023 12:12 PM CENTRIFUGAL CHILLER TECHNICIAN GLUCOSE POCT, B Routine 02/24/2023 8:18 AM CENTRIFUGAL CHILLER TECHNICIAN ELECTROLYTE (CHEM 4) PANEL, S/P Routine 02/24/2023 5:44 AM CENTRIFUGAL CHILLER TECHNICIAN CBC WITHOUT DIFFERENTIAL, B Routine 02/24/2023 5:44 AM CENTRIFUGAL CHILLER TECHNICIAN GLUCOSE POCT, B Routine 02/23/2023 10:50 PM CENTRIFUGAL CHILLER TECHNICIAN VANCOMYCIN, TROUGH, S Timed 02/23/2023 6:28 PM CENTRIFUGAL CHILLER TECHNICIAN GLUCOSE POCT, B Routine 02/23/2023 6:17 PM CENTRIFUGAL CHILLER TECHNICIAN GLUCOSE POCT, B Routine 02/23/2023 5:30 PM CENTRIFUGAL CHILLER TECHNICIAN GLUCOSE POCT, B Routine 02/23/2023 12:15 PM CENTRIFUGAL CHILLER TECHNICIAN GLUCOSE POCT, B Routine 02/23/2023 8:50 AM CENTRIFUGAL CHILLER TECHNICIAN CBC WITH DIFFERENTIAL, B Routine 02/23/2023 7:04 AM CENTRIFUGAL CHILLER TECHNICIAN BASIC METABOLIC PANEL, S/P Routine 02/23/2023 7:04 AM CENTRIFUGAL CHILLER TECHNICIAN GLUCOSE POCT, B Routine 02/22/2023 10:04 PM CENTRIFUGAL CHILLER TECHNICIAN GLUCOSE POCT, B Routine 02/22/2023 6:02 PM CENTRIFUGAL CHILLER TECHNICIAN BACTERIA / RONDA CULTURE, BLOOD Routine 02/22/2023 4:47 PM CENTRIFUGAL CHILLER TECHNICIAN BACTERIA / RONDA CULTURE, BLOOD Routine 02/22/2023 4:40 PM CENTRIFUGAL CHILLER TECHNICIAN GLUCOSE POCT, B Routine 02/22/2023 12:54 PM CENTRIFUGAL CHILLER TECHNICIAN PET CT SKULL TO THIGH RAD - Routine (most inpatients and all outpatients) 02/22/2023 12:21 PM CENTRIFUGAL CHILLER TECHNICIAN GLUCOSE POCT, B Routine 02/22/2023 7:25 AM CENTRIFUGAL CHILLER TECHNICIAN BASIC METABOLIC PANEL, S/P Routine 02/22/2023 5:06 AM CENTRIFUGAL CHILLER TECHNICIAN CBC WITHOUT DIFFERENTIAL, B Routine 02/22/2023 5:06 AM CENTRIFUGAL CHILLER TECHNICIAN HEMOGLOBIN, B STAT 02/22/2023 12:13 AM CENTRIFUGAL CHILLER TECHNICIAN GLUCOSE POCT, B Routine 02/21/2023 9:19 PM CENTRIFUGAL CHILLER TECHNICIAN SPSMA RESULT STAT 02/21/2023 4:34 PM CENTRIFUGAL CHILLER TECHNICIAN HEMOGLOBIN, B STAT 02/21/2023 4:34 PM CENTRIFUGAL CHILLER TECHNICIAN HEMOGLOBIN, B STAT 02/21/2023 4:34 PM CENTRIFUGAL CHILLER TECHNICIAN GLUCOSE POCT, B Routine 02/21/2023 4:27 PM CENTRIFUGAL CHILLER TECHNICIAN MR CERVICAL SPINE WITHOUT IV CONTRAST RAD - Routine (most inpatients and all outpatients) 02/21/2023 3:05 PM CENTRIFUGAL CHILLER TECHNICIAN CT ABDOMEN PELVIS ANGIOGRAM WITH IV CONTRAST RAD - Routine (most inpatients and all outpatients) 02/21/2023 12:26 PM CENTRIFUGAL CHILLER TECHNICIAN CT LUMBAR SPINE WITH IV CONTRAST RAD - Routine (most inpatients and all outpatients) 02/21/2023 12:26 PM CENTRIFUGAL CHILLER TECHNICIAN GLUCOSE POCT, B Routine 02/21/2023 11:33 AM CENTRIFUGAL CHILLER TECHNICIAN BILIRUBIN DIRECT, S/P Routine 02/21/2023 9:27 AM CENTRIFUGAL CHILLER TECHNICIAN BILIRUBIN, TOT, S/P Routine 02/21/2023 9:27 AM CENTRIFUGAL CHILLER TECHNICIAN LACTATE DEHYDROGENASE (LD), S Routine 02/21/2023 9:27 AM CENTRIFUGAL CHILLER TECHNICIAN HAPTOGLOBIN, S Routine 02/21/2023 9:27 AM CENTRIFUGAL CHILLER TECHNICIAN GLUCOSE POCT, B Routine 02/21/2023 7:55 AM CENTRIFUGAL CHILLER TECHNICIAN PREPARE RED BLOOD CELLS Routine 02/22/20 7:35 AM CENTRIFUGAL CHILLER TECHNICIAN TYPE AND SCREEN STAT 02/21/2023 7:35 AM CENTRIFUGAL CHILLER TECHNICIAN HEMOGLOBIN, B STAT 02/21/2023 7:35 AM CENTRIFUGAL CHILLER TECHNICIAN BASIC METABOLIC PANEL, S/P Routine 02/21/2023 1:32 AM CENTRIFUGAL CHILLER TECHNICIAN CBC WITHOUT DIFFERENTIAL, B Routine 02/21/2023 1:32 AM CENTRIFUGAL CHILLER TECHNICIAN BACTERIA / RONDA CULTURE, BLOOD Routine 02/21/2023 1:32 AM CENTRIFUGAL CHILLER TECHNICIAN BACTERIA / RONDA CULTURE, BLOOD Routine 02/21/2023 1:32 AM CENTRIFUGAL CHILLER TECHNICIAN BACTERIAL CULTURE, AEROBIC + SUSC, URINE Routine 02/20/2023 10:50 PM CENTRIFUGAL CHILLER TECHNICIAN GLUCOSE POCT, B Routine 02/20/2023 8:46 PM CENTRIFUGAL CHILLER TECHNICIAN DX LUMBAR SPINE 2-3 VIEWS RAD - Semiurgent (Fast; most ED patients; some inpatients) 02/20/2023 6:25 PM CENTRIFUGAL CHILLER TECHNICIAN GLUCOSE POCT, B Routine 02/20/2023 5:34 PM CENTRIFUGAL CHILLER TECHNICIAN INFLUENZA A, B, RSV, PCR, RAPID, V Routine 02/20/2023 4:11 PM CENTRIFUGAL CHILLER TECHNICIAN SARS CORONAVIRUS 2, PCR RAPID, V Routine 02/20/2023 4:11 PM CENTRIFUGAL CHILLER TECHNICIAN GLUCOSE POCT, B Routine 02/20/2023 11:48 AM CENTRIFUGAL CHILLER TECHNICIAN MR LUMBAR SPINE WITHOUT IV CONTRAST RAD - Routine (most inpatients and all outpatients) 02/20/2023 10:42 AM CENTRIFUGAL CHILLER TECHNICIAN GLUCOSE POCT, B Routine 02/20/2023 8:01 AM CENTRIFUGAL CHILLER TECHNICIAN [facility] INTERNAL MEDICINE IMAGE EXAM Routine 02/20/2023 6:38 AM MST MICROSCOPIC MANUAL STAT 02/20/2023 6:05 AM CENTRIFUGAL CHILLER TECHNICIAN DIPSTICK, U STAT 02/20/2023 6:05 AM CENTRIFUGAL CHILLER TECHNICIAN PH, U STAT 02/20/2023 6:05 AM CENTRIFUGAL CHILLER TECHNICIAN OSMOLALITY, U STAT 02/20/2023 6:05 AM CENTRIFUGAL CHILLER TECHNICIAN URINALYSIS WITH MICROSCOPIC STAT 02/20/2023 6:05 AM CENTRIFUGAL CHILLER TECHNICIAN BACTERIAL CULTURE, AEROBIC + SUSC, URINE STAT 02/20/2023 6:05 AM CENTRIFUGAL CHILLER TECHNICIAN LACTATE, B/P STAT 02/20/2023 2:34 AM CENTRIFUGAL CHILLER TECHNICIAN C-REACTIVE PROTEIN (CRP), S/P STAT 02/20/2023 2:34 AM CENTRIFUGAL CHILLER TECHNICIAN THYROID-STIMULATING HORMONE-SENSITIVE (S-TSH) STAT 02/20/2023 2:34 AM CENTRIFUGAL CHILLER TECHNICIAN BASIC METABOLIC PANEL, S/P STAT 02/20/2023 2:34 AM CENTRIFUGAL CHILLER TECHNICIAN CBC WITH DIFFERENTIAL, B STAT 02/20/2023 2:34 AM CENTRIFUGAL CHILLER TECHNICIAN FERRITIN, S Routine 02/18/2023 7:34 AM CDT [...] - HEMODYNAMIC STUDY Routine 04/05/2022 8:33 AM CENTRIFUGAL CHILLER TECHNICIAN 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 Lower Extremity Non-Pressure 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) LOWER EXTREMITY ARTERIAL - STANDARD PROTOCOL Routine 04/05/2022 8:27 AM CENTRIFUGAL CHILLER TECHNICIAN 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 Lower Extremity Non-Pressure 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) ECG AMBULATORY REAL TIME CARDIAC MONITORING Routine 01/27/2022 7:31 AM CDT Atrial Fibrillation Unspecified ECG Routine 01/07/2022 11:21 AM CDT Atrial Fibrillation Unspecified [employer] - [employer] [employer] Routine 01/05/2022 11:52 AM CDT Atrial Fibrillation Unspecified DX CHEST AP OR PA AND LATERAL 2 VIEWS RAD - Routine (most inpatients and all outpatients) 01/05/2022 10:29 AM CDT Atrial Fibrillation Unspecified FL T4 FREE Routine 01/04/2022 11:12 AM CDT [...] OUTSIDE CT BODY Routine 04/15/2021 9:55 AM CENTRIFUGAL CHILLER TECHNICIAN FL CYSTOURETHROSCOPY Routine 03/03/2021 2:05 PM CENTRIFUGAL CHILLER TECHNICIAN Hematuria Pyuria Infection Urinary Tract Deficiency 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 DIPSTICK, U Routine 03/03/2021 11:43 AM CENTRIFUGAL CHILLER TECHNICIAN FL OSMOLALITY ASSAY URINE Routine 03/03/2021 11:43 AM CENTRIFUGAL CHILLER TECHNICIAN PH, RANDOM, U Routine 03/03/2021 11:43 AM CENTRIFUGAL CHILLER TECHNICIAN MICROSCOPIC MANUAL Routine 03/03/2021 11:43 AM CENTRIFUGAL CHILLER TECHNICIAN GRAM'S ST, U Routine 03/03/2021 11:43 AM CENTRIFUGAL CHILLER TECHNICIAN Hematuria Pyuria Infection Urinary Tract URINALYSIS WITH MICROSCOPIC Routine 03/03/2021 11:43 AM CENTRIFUGAL CHILLER TECHNICIAN Hematuria Pyuria Infection Urinary Tract URO UROFLOW Routine 03/03/2021 10:45 AM CENTRIFUGAL CHILLER TECHNICIAN Infection Urinary Tract Deficiency Urethral Sphincter Intrinsic DIPSTICK, U Routine 12/11/2020 1:01 PM CDT FL OSMOLALITY ASSAY URINE Routine 12/11/2020 1:01 PM [...] + SUSC, URINE Routine 05/07/2019 10:59 AM CENTRIFUGAL CHILLER TECHNICIAN Stent Ureteral Indwelling FL CYSTHRSCPY RMVL FB/STENT SMPL Routine 05/07/2019 10:30 AM CENTRIFUGAL CHILLER TECHNICIAN [facility] ABDOMEN PELVIS KIDNEY STONE QUANT WITHOUT IV CONTRAST RAD - Routine (most inpatients and all outpatients) 04/20/2019 1:00 PM CENTRIFUGAL CHILLER TECHNICIAN [facility] GLUCOSE POCT, B Routine 04/04/2019 3:39 PM CENTRIFUGAL CHILLER TECHNICIAN ADULT OXYGEN THERAPY Routine 04/04/2019 1:42 PM CENTRIFUGAL CHILLER TECHNICIAN FL FLUORO LESS THAN 1 HOUR RAD - Routine (most inpatients and all outpatients) 04/04/2019 1:34 PM CENTRIFUGAL CHILLER TECHNICIAN KIDNEY STONE ANALYSIS Routine 04/04/2019 1:26 PM CENTRIFUGAL CHILLER TECHNICIAN [facility] GLUCOSE POCT, B Routine 04/04/2019 12:43 PM CENTRIFUGAL CHILLER TECHNICIAN LDA ANE ENDOTRACHEAL AIRWAY Routine 04/04/2019 11:49 AM CENTRIFUGAL CHILLER TECHNICIAN URETEROSCOPY WITH LASER LITHOTRIPSY 04/04/2019 10:57 AM CENTRIFUGAL CHILLER TECHNICIAN [facility] Case Notes [facility] ESCORT 0848 GLUCOSE POCT, B Routine 04/04/2019 10:45 AM CENTRIFUGAL CHILLER TECHNICIAN GLUCOSE POCT, B Routine 03/15/2019 10:45 AM CENTRIFUGAL CHILLER TECHNICIAN GLUCOSE POCT, B Routine 03/15/2019 7:43 AM CENTRIFUGAL CHILLER TECHNICIAN GLUCOSE POCT, B Routine 03/15/2019 1:43 AM CENTRIFUGAL CHILLER TECHNICIAN GLUCOSE POCT, B Routine 03/14/2019 10:03 PM CENTRIFUGAL CHILLER TECHNICIAN GLUCOSE POCT, B Routine 03/14/2019 6:51 PM CENTRIFUGAL CHILLER TECHNICIAN GLUCOSE POCT, B Routine 03/14/2019 10:31 AM CENTRIFUGAL CHILLER TECHNICIAN ADULT OXYGEN THERAPY Routine 03/14/2019 8:00 AM CENTRIFUGAL CHILLER TECHNICIAN GLUCOSE POCT, B Routine 03/14/2019 1:03 AM CENTRIFUGAL CHILLER TECHNICIAN GLUCOSE POCT, B Routine 03/13/2019 9:53 PM CENTRIFUGAL CHILLER TECHNICIAN ADULT OXYGEN THERAPY Routine 03/13/2019 8:01 PM CENTRIFUGAL CHILLER TECHNICIAN GLUCOSE POCT, B Routine 03/13/2019 6:25 PM CENTRIFUGAL CHILLER TECHNICIAN GLUCOSE POCT, B Routine 03/13/2019 1:27 PM CENTRIFUGAL CHILLER TECHNICIAN ADULT OXYGEN THERAPY Routine 03/13/2019 8:01 AM CENTRIFUGAL CHILLER TECHNICIAN GLUCOSE POCT, B Routine 03/13/2019 8:01 AM CENTRIFUGAL CHILLER TECHNICIAN BASIC METABOLIC PANEL, S/P Routine 03/13/2019 2:47 AM CENTRIFUGAL CHILLER TECHNICIAN CBC WITHOUT DIFFERENTIAL, B Routine 03/13/2019 2:47 AM CENTRIFUGAL CHILLER TECHNICIAN GLUCOSE POCT, B Routine 03/12/2019 10:44 PM CENTRIFUGAL CHILLER TECHNICIAN ADULT OXYGEN THERAPY Routine 03/12/2019 8:01 PM CENTRIFUGAL CHILLER TECHNICIAN GLUCOSE POCT, B Routine 03/12/2019 5:00 PM CENTRIFUGAL CHILLER TECHNICIAN HEMOGLOBIN A1C, B Routine 03/12/2019 2:10 PM CENTRIFUGAL CHILLER TECHNICIAN GLUCOSE POCT, B Routine 03/12/2019 1:54 PM CENTRIFUGAL CHILLER TECHNICIAN FL FLUORO LESS THAN 1 HOUR RAD - Routine (most inpatients and all outpatients) 03/12/2019 1:11 PM CENTRIFUGAL CHILLER TECHNICIAN GLUCOSE POCT, B Routine 03/12/2019 1:05 PM CENTRIFUGAL CHILLER TECHNICIAN UROLOGY IMAGE EXAM Routine 03/12/2019 1:02 PM CENTRIFUGAL CHILLER TECHNICIAN LDA ANE ENDOTRACHEAL AIRWAY Routine 03/12/2019 12:27 PM CENTRIFUGAL CHILLER TECHNICIAN BACTERIAL CULTURE, AEROBIC + SUSC, URINE Routine 03/12/2019 12:25 PM CENTRIFUGAL CHILLER TECHNICIAN Nephrolithiasis FUNGAL CULTURE, ROUTINE Routine 03/12/20 19 12:25 PM CENTRIFUGAL CHILLER TECHNICIAN Nephrolithiasis RETROGRADE PYELOGRAM 03/12/2019 11:32 AM CENTRIFUGAL CHILLER TECHNICIAN Nephrolithiasis CYSTOURETHROSCOPY WITH PLACEMENT URETERAL STENT 03/12/2019 11:32 AM CENTRIFUGAL CHILLER TECHNICIAN Nephrolithiasis ECG STAT 03/12/2019 11:15 AM CENTRIFUGAL CHILLER TECHNICIAN GLUCOSE POCT, B Routine 03/12/2019 11:13 AM CENTRIFUGAL CHILLER TECHNICIAN GLUCOSE POCT, B Routine 03/12/2019 8:49 AM CENTRIFUGAL CHILLER TECHNICIAN BACTERIAL CULTURE, AEROBIC + SUSC, URINE Timed 03/12/2019 5:44 AM CENTRIFUGAL CHILLER TECHNICIAN BACTERIA / RONDA CULTURE, BLOOD Routine 03/12/2019 5:11 AM CENTRIFUGAL CHILLER TECHNICIAN BACTERIA / RONDA CULTURE, BLOOD Routine 03/12/2019 5:03 AM CENTRIFUGAL CHILLER TECHNICIAN MICROSCOPIC AUTOMATED Timed 03/12/2019 4:36 AM CENTRIFUGAL CHILLER TECHNICIAN KETONES,QL(U) Timed 03/12/2019 4:36 AM CENTRIFUGAL CHILLER TECHNICIAN URINALYSIS WITH MICROSCOPIC Timed 03/12/2019 4:36 AM CENTRIFUGAL CHILLER TECHNICIAN BASIC METABOLIC PANEL, S/P STAT 03/12/2019 3:58 AM CENTRIFUGAL CHILLER TECHNICIAN CBC WITH DIFFERENTIAL, B STAT 03/12/2019 3:58 AM CENTRIFUGAL CHILLER TECHNICIAN GLUCOSE POCT, B Routine 03/12/2019 3:50 AM CENTRIFUGAL CHILLER TECHNICIAN ADULT OXYGEN THERAPY Routine 03/12/2019 3:31 AM CENTRIFUGAL CHILLER TECHNICIAN ADULT OXYGEN THERAPY Routine 03/12/2019 3:31 AM CENTRIFUGAL CHILLER TECHNICIAN OUTSIDE CT BODY Routine 03/11/2019 11:15 PM CENTRIFUGAL CHILLER TECHNICIAN CT ABDOMEN PELVIS WITHOUT IV CONTRAST RAD - Routine (most inpatients and all outpatients) 12/12/2018 7:25 AM CDT Stones Uric Acid MONOCLONAL PROTEIN STUDY, 24 HR, U Routine 07/26/2018 9:00 AM CDT Diabetes Mellitus Type 2 (HCC) SUPERSATURATION, 24H, U Routine 07/27/19 9:00 AM CDT [facility] ABDOMEN [...] UROLOGY IMAGE EXAM Routine 04/04/2015 1:57 PM CENTRIFUGAL CHILLER TECHNICIAN US ABDOMEN COMPLETE Routine 04/04/2015 9:07 AM CENTRIFUGAL CHILLER TECHNICIAN BICARBONATE, B/S/P Routine 04/04/2015 7:53 AM CENTRIFUGAL CHILLER TECHNICIAN CREATININE WITH EGFR, S/P Routine 04/04/2015 7:53 AM CENTRIFUGAL CHILLER TECHNICIAN SODIUM, S/P Routine 04/04/2015 7:53 AM CENTRIFUGAL CHILLER TECHNICIAN CALCIUM, TOT, S/P Routine 04/04/2015 7:53 AM CENTRIFUGAL CHILLER TECHNICIAN POTASSIUM, S/P Routine 04/04/2015 7:53 AM CENTRIFUGAL CHILLER TECHNICIAN MAGNESIUM, S Routine 04/04/2015 7:53 AM CENTRIFUGAL CHILLER TECHNICIAN URIC ACID, S/P Routine 04/04/2015 7:53 AM CENTRIFUGAL CHILLER TECHNICIAN PHOSPHORUS (INORGANIC), S Routine 04/04/2015 7:53 AM CENTRIFUGAL CHILLER TECHNICIAN CREATININE WITH EGFR, S/P Routine 01/31/2015 10:15 [...] 1:09 PM CDT HX MICROBIOLOGY REPORTS Routine 01/30/20 15 12:39 PM CDT UREAPLASMA PCR Routine [...] HOME OVERNIGHT OXIMETRY Routine 05/27/2014 10:29 PM CENTRIFUGAL CHILLER TECHNICIAN ALBUMIN, RANDOM, U Routine 05/27/2014 1:19 PM CENTRIFUGAL CHILLER TECHNICIAN CREATININE WITH EGFR, S/P Routine 05/27/2014 12:54 PM CENTRIFUGAL CHILLER TECHNICIAN GLUCOSE, RANDOM, S/P Routine 05/27/2014 12:54 PM CENTRIFUGAL CHILLER TECHNICIAN HEMOGLOBIN A1C, B Routine 05/27/2014 12:54 PM CENTRIFUGAL CHILLER TECHNICIAN OUTSIDE CT BODY Routine 05/06/2014 1:13 PM CENTRIFUGAL CHILLER TECHNICIAN PULMONARY FUNCTION TESTS Routine 03/30/2002 9:39 AM CENTRIFUGAL CHILLER TECHNICIAN CT HEAD WITH IV CONTRAST Routine 10/30/2001 2:09 PM CDT DX KIDNEYS URETERS BLADDER WITH TOMOGRAPHY Routine 10/30/2001 1:04 PM CDT DX CHEST AP OR PA AND LATERAL 2 VIEWS Routine 10/27/2001 2:26 PM CDT ECG Routine 10/27/2001 2:07 PM CDT HXGENERAL PATHOLOGY REPORT Routine 02/02/1994 10:28 AM CDT ECG Routine 09/29/1993 11:05 AM CDT Results * CT chest abdomen pelv wo con-Outside CT Body (08/11/2023 11:10 AM CDT) Only the most recent of6 resultswithin the time period is included. Narrative IIMS - 08/12/2023 12:05 PM CDT This order has been created and auto-finalized to support the import of outside images. If available, original interpretation can be found on the Media Tab in Chart Review, in Document Viewer, or as an image in QREADS. If a re-interpretation or overread is required please follow defined workflow. ?? Provider Not In System IMG CT PROCEDURES IIMS NA * FL Lumbar Spine Transforaminal Epidural Injection Right (08/08/2023 2:08 PM CDT) Impressions [id number] - 08/08/2023 2:43 PM CDT Fluoroscopically-guided transforaminal epidural steroid injection. NR Narrative [id number] - 08/08/2023 2:43 PM CDT EXAM: FL [...] felt to best approximate that of an [id number]. Prior right L4 injection did not provide [...] IMG FLUO ROSCOPY PROCEDURES Performing Organization Address [facility]/ZIP Co de Phone Number [phone] NA * prollie (06/01/2023 12:00 AM CENTRIFUGAL CHILLER TECHNICIAN) Test Name [facility] Custom Panel 06/09/2023 10:53 AM CENTRIFUGAL CHILLER TECHNICIAN INVC Result SEE COMMENT 06/09/2023 11:10 AM CENTRIFUGAL CHILLER TECHNICIAN INVC Comment: For final report, select Lab-Send Out Lab Results hyperlink below. 06/01/2023 06/09/2023 10: 53 AM CENTRIFUGAL CHILLER TECHNICIAN Ean Huizar M.D. LAB [place] Therapist ORDERABLE S Performing Organization Address [facility] Co de Phone Number prollie [address] [place] [address] [phone] [facility] prollie [address] [place] [phone] * [id number] Panel - Miscellaneous Test (06/01/2023 12:00 AM CENTRIFUGAL CHILLER TECHNICIAN) Test Name [facility] Custom Panel 06/09/2023 10:56 AM CENTRIFUGAL CHILLER TECHNICIAN HLS Saliva (Mouth) 06/01/2023 06/09/2023 10:53 AM CENTRIFUGAL CHILLER TECHNICIAN Ean Huizar M.D. LAB [place] Therapist ORDERABLE S Performing Organization Address City/[facility] Co de Phone Number [facility] [address] [place] [address], [facility] HLS [facility] [address] [place] [address] * (ABNORMAL) Glucose, POCT (05/16/2023 9:35 AM CENTRIFUGAL CHILLER TECHNICIAN) Only the most recent of452 resultswithin the time period is included. Glucose, POCT, B 151(H) 70 - 140 mg/dL 05/16/2023 10:04 AM CENTRIFUGAL CHILLER TECHNICIAN PCDE Site Capillary 05/16/2023 10:04 AM CENTRIFUGAL CHILLER TECHNICIAN PCDE Last Intake > 4 hours 05/16/2023 10:04 AM CENTRIFUGAL CHILLER TECHNICIAN PCDE Blood 05/16/2023 9:35 AM CENTRIFUGAL CHILLER TECHNICIAN 05/16/2023 10:05 AM CENTRIFUGAL CHILLER TECHNICIAN Unknown Provider LAB POCT ORDERABLES- MANUAL Performing Organization Address City/[facility] Co de Phone Number [facility] [address] [place] [address], [facility] PCDE [facility] [address] [place] [address] * (ABNORMAL) SARS CoV-2 RNA, PCR Asymptomatic (05/15/2023 9:10 AM CENTRIFUGAL CHILLER TECHNICIAN) SARS CoV-2 RNA, PCR, Source Swab, Nasopharynx 05/15/2023 11:55 PM CENTRIFUGAL CHILLER TECHNICIAN SDS SARS CoV-2 RNA, PCR Detected(A) Undetected 05/15/2023 11:55 PM CENTRIFUGAL CHILLER TECHNICIAN SDS Comment: SARS-CoV-2 RNA present. ----ADDITIONAL INFORMATION---- This RT-PCR test has received Emergency Use Authorization (EUA) by the U.S. Food and Drug Administration and is used per oracle adf developer's instructions. Performance characteristics were verified by [facility] in a manner consistent with CLIA requirements. Visit the CDC website: https://www.cdc.gov/coronavirus/ for the most recent guidelines on Coronavirus testing. Fact Sheet for Healthcare Providers: https://www.fda.gov/media/002494/download Fact Sheet for Patients: https://www.fda.gov/media/700246/download Swab (Nasopharynx) 05/15/2023 9:10 AM CENTRIFUGAL CHILLER TECHNICIAN 05/15/2023 12:03 PM CENTRIFUGAL CHILLER TECHNICIAN Bonny Swanson B.Ch., MJhon. LAB M ICROBIOLOGY - GENERAL ORDERABLES Performing Organization Address City/[facility]/ZIP Co de Phone Number [facility] [address] [place] [address] [facility] [address] ZAF[place] [address] [place] [address] * HIV-1/-2 Ag and Ab PS, Plasma (05/12/2023 5:44 PM CENTRIFUGAL CHILLER TECHNICIAN) Pathologist [facility] HIV-1/-2 Ag and Ab PS, P Negative Negative 05/12/2023 8:32 PM CENTRIFUGAL CHILLER TECHNICIAN [facility] Comment: Negative result does not rule out HIV infection. If exposure to HIV infection occurred <14 days ago, contact the laboratory to request addition of HIV-1/HIV-2 RNA Detection Patient Source, Plasma (HEP12). Blood (Blood, Venous) 05/12/2023 5:44 PM CENTRIFUGAL CHILLER TECHNICIAN 05/12/2023 7:49 PM CENTRIFUGAL CHILLER TECHNICIAN Bonny Swanson B.Ch., Lyle LAB M [facility] - BLOOD ORDERABLES Performing Organization Address [facility] de Phone Number [address] [place] [address] [place] [address] * HCV RNA Pt Source, Serum (05/12/2023 5:44 PM CENTRIFUGAL CHILLER TECHNICIAN) Pathologist [facility] HCV RNA Pt Source, S Undetected Undetected IU/mL 05/12/2023 11:11 PM CENTRIFUGAL CHILLER TECHNICIAN [facility] Comment: Result in log IU/mL is Undetected. ----ADDITIONAL INFORMATION---- The quantification range of this assay is 15 to 100,000,000 IU/mL (1.18 log to 8.00 log IU/mL). Testing was performed using the sagar HCV test ([employer] Blood (Blood, Venous) 05/12/2023 5:44 PM CENTRIFUGAL CHILLER TECHNICIAN 05/12/2023 7:53 PM CENTRIFUGAL CHILLER TECHNICIAN Bonny Swanson B.Ch., Lyle LAB M [facility] - BLOOD ORDERABLES Performing Organization Address [facility] Co de Phone Number [facility] [address] [place] [address] [address] ZAFAR [address] [place] [address] [place] [id number] * HIV-1/HIV-2 Ab Rapid Pt Source (05/12/2023 5:44 PM CENTRIFUGAL CHILLER TECHNICIAN) HIV-1/HIV-2 Ab Rapid Pt Source, B Negative Negative 05/12/2023 6:19 PM CENTRIFUGAL CHILLER TECHNICIAN [facility] Blood (Blood, Venous) 05/12/2023 5:44 PM CENTRIFUGAL CHILLER TECHNICIAN 05/12/2023 5:49 PM CENTRIFUGAL CHILLER TECHNICIAN Bonny Swanson B.Ch., MMarleny LAB M ICROBIOLOGY - BLOOD ORDERABLES Performing Organization Address City/[facility]/ZIP Co de Phone Number [facility] [address] [place] [address], [facility] METH [facility] [address] [place] [address] * HBs Antigen Patient Source (05/12/2023 5:44 PM CENTRIFUGAL CHILLER TECHNICIAN) Pathologist [facility] HBs Antigen Patient Source, S Negative Negative 05/12/2023 9:55 PM CENTRIFUGAL CHILLER TECHNICIAN [facility] Blood (Blood, Venous) 05/12/2023 5:44 PM CENTRIFUGAL CHILLER TECHNICIAN 05/12/2023 7:49 PM CENTRIFUGAL CHILLER TECHNICIAN Bonny Swanson B.Ch., MMarleny LAB M [facility] [place] [facility] CENTEROBIOLOGY - BLOOD ORDERABLES Performing Organization Address [facility] Co de Phone Number [facility] [address] [place] [address] [facility] [address] [place] [address] * [facility] Colorectal Cancer Panel, Next-Generation Sequencing, Tumor (05/12/2023 3:47 PM CENTRIFUGAL CHILLER TECHNICIAN) Pathologist [facility] Result Provided diagnosis: colorectal adenocarcinoma Microsatellite Instability (MSI) status: Stable (RODO) The following CLINICALLY RELEVANT VARIANTS were detected: Gene: APC DNA Change: c.4348C>T (Exon 16) Amino Acid Change: p.R1450* ([id number]*) Variant Allele Frequency: 33% Gene: APC DNA Change: c.2319del (Exon 16) Amino Acid Change: p.B564Rsq*4 (Zbj020Kxpfp*4) Variant Allele Frequency: 31.4% Gene: KRAS DNA Change: c.38G>A (Exon 2) Amino Acid Change: p.G13D (Gdz42Ilm) Variant Allele Frequency: 55.6% The following VARIANT OF UNCERTAIN SIGNIFICANCE was detected: Gene: MSH6 DNA Change: c.2374C>G (Exon 4) Amino Acid Change: p.L792V (Svd642Lwc) Variant Allele Frequency: 16.4% No other reportable sequence variants were detected within the analyzed regions of the tested genes listed in the method description. 06/08/2023 1:38 PM CENTRIFUGAL CHILLER TECHNICIAN DTL Additional Information CLINICAL TRIALS Possible clinical trials of benefit for this patient can be found at the following sites: 1) ClinicalTrials.gov: www.clinicaltrials. gov/ct2/search/adva nced 2) [facility]: www.[facility]/resear ch/clinical-trials/ 3) National Cancer [place]: www.cancer.gov/clin icaltrials/search REFERENCE TRANSCRIPTS Sequence variant nomenclature is based on the following RefSeq accession numbers (build GRCh37 (hg19)):APC [id number], KRAS [id number] and MSH6 [id number]. 06/08/2023 1:38 PM CENTRIFUGAL CHILLER TECHNICIAN DTL Specimen Tissue, Tumor 06/08/2023 1:38 PM CENTRIFUGAL CHILLER TECHNICIAN DTL Tissue ID [id number] 06/08/2023 1:38 PM CENTRIFUGAL CHILLER TECHNICIAN DTL Method Microscopic examination is performed by [...] and additional information on this test, see [email or web address] (Test ID [facility]). 06/08/2023 1:38 PM CENTRIFUGAL CHILLER TECHNICIAN DTL Disclaimer This test cannot differentiate between [...] of heterozygosity) and sequencing artifact/misalignme nt [PMID: 93309027, PMID: 97436127]. This test cannot reliably determine if a [...] and its performance characteristics determined by [facility] in a manner consistent with CLIA requirements. This test has not been cleared or approved by the U.S. Food and Drug Administration. 06/08/2023 1:38 PM CENTRIFUGAL CHILLER TECHNICIAN DTL Released By Kiki SheppardB.S., Ph.D. 06/08/2023 1:38 PM CENTRIFUGAL CHILLER TECHNICIAN DTL Interpretation MSI: Stable (RODO) NO evidence of microsatellite instability was detected suggesting the presence of normal DNA mismatch repair function within the tumor. Current data suggest that advanced stage solid tumors with intact mismatch repair (RODO) are less likely to be responsive to treatment with immunotherapies such as anti-PD-1 therapies [PMID 70670129, PMID 18796937]. The presence of intact mismatch repair (RODO) is considered to be an unfavorable prognostic factor for patients with colorectal cancer [PMID: 24794526]. These results decrease the likelihood but do [...] APC c.4348C>T (p.R1450*) (Exon 16) and c.2319del (p.L907Rrx*4) (Exon 16) APC (adenomatous polyposis coli) is a tumor suppressor gene that encodes the protein Apc, which plays critical roles in regulating cell division and adhesion. Apc interacts with beta-catenin and controls signaling in the Wnt pathway, which helps regulate embryonic development and cell differentiation [PMID:02975666]. Inactivation of Apc results in the deregulation of Wnt signaling through beta-catenin [PMID:00827666]. In the absence of functional Apc, beta-catenin accumulates and is translocated to the nucleus, where it promotes the environmental educator of genes promoting cellular proliferation [PMID:03411396]. APC mutations have been reported in 48-80% of colon samples [[employer]OS[employer], cBioPortal for Cancer Genomics]. There are currently no known clinically approved therapies that specifically target APC mutations. 2) KRAS c.38G>A (p.G13D) (Exon 2) KRAS encodes a signaling protein member of the Burke family [PMID:73723684, PMID:12015293, PMID:78107896]. Activating KRAS alterations, mainly through mutations in exons 2, 3, and 4 (most commonly at codons G12, G13 and Q61), result in oncogenic activation of downstream signaling pathways, including the Jesus/MEK/ERK pathway [PMID:67057793, PMID:4385272]. KRAS mutations have been reported in 33-43% of colon samples [COSMIC, cBioPortal for Cancer Genomics]. Current data suggests that the efficacy of EGFR-targeted therapies in colorectal cancer is limited to patients with tumors lacking an activating KRAS mutation [PMID:80183447, PMID:01595148]. VARIANT OF UNCERTAIN SIGNIFICANCE One variant of uncertain significance was detected. The variant was not observed at significant frequency in population germline/cancer somatic variant databases nor predicted to be functionally significant based on variant type/in silico algorithm results. Additionally, there was no convincing published evidence of cancer association. Therefore, the clinical significance of the detected variant is unknown. 06/08/2023 1:38 PM CENTRIFUGAL CHILLER TECHNICIAN DTL 05/12/2023 3:47 PM CENTRIFUGAL CHILLER TECHNICIAN 06/01/2023 1:15 PM CENTRIFUGAL CHILLER TECHNICIAN Scooby Jacobs M.D. LAB GENETIC [facility] [address] [place] [address], [facility] DT [address] [facility] [address] [place] [address] * Surgical Pathology, Frozen Lab (05/12/2023 12:49 PM CENTRIFUGAL CHILLER TECHNICIAN) 05/18/2023 4:43 PM CENTRIFUGAL CHILLER TECHNICIAN METH Participated in the Interpretation Candi Cantu M.D.-Pathology Fellow 05/18/2023 4:43 PM CENTRIFUGAL CHILLER TECHNICIAN METH Report electronically signed by Kiki RoaB.S., Ph.D. I verify that I have examined all relevant slides/materials for the specimen(s) and rendered or confirmed the diagnosis. 05/18/2023 4:43 PM CENTRIFUGAL CHILLER TECHNICIAN METH Frozen Intraoperative Report A. ??Terminal ileum, cecum, and appendix, right hemicolectomy: ??Invasive moderate-poorly differentiated adenocarcinoma, forming a 6.1 cm mass extending to the serosa. ??Resection margins negative for tumor. ??Closest mucosal margin 12.3 cm. ??Preliminarily, 5 tumor deposits and 2 of 9 lymph nodes positive for carcinoma. ??Pending further evaluation of additional lymph nodes on permanent sections.. Signed by Kiki RoaBAjitS., Ph.D. 05/13/2023 10:17 AM 05/18/2023 4:43 PM CENTRIFUGAL CHILLER TECHNICIAN METH Gross Description A. ??Received fresh labeled [...] nodes are identified within the mesenteric fat. ??Probation Agent tissue is submitted for frozen and permanent sections. ??Grossed by Musa Kessler M.D., Ph.D.-Pathology Resident/Preet GermanHCarlos, PA([facility]). ??Additional sections of adipose tissue are submitted on 05/16/2023 by Georgia Eldridge M.D. -Pathology Resident. 05/18/2023 4:43 PM CENTRIFUGAL CHILLER TECHNICIAN METH Block Summary A Appendix, terminal ileum, [...] A48 Adipose tissue- 10 05/18/2023 4:43 PM CENTRIFUGAL CHILLER TECHNICIAN METH Addendum Genetic testing for [facility] Colorectal Cancer Panel ([facility]) will be performed and resulted in the patient's medical record. Signed by Caroline Michaud M.D. 06/02/2023 1:30 PM A portion of the testing process was performed at [facility] site [id number]. 06/02/2023 1:30 PM CENTRIFUGAL CHILLER TECHNICIAN METH Comment:REVISED RESULTS Interpretation FINAL DIAGNOSIS A. [...] in 1 hotspot field: Not applicable Tumor [place] Score: Not applicable Treatment Effect: No known [...] the testing process was performed at [facility] 1006.tv site [id number]. Digital imaging was used in the diagnostic assessment of this case. 06/02/2023 1:30 PM CENTRIFUGAL CHILLER TECHNICIAN METH Tissue (Colon) 05/12/2023 12 :49 PM CENTRIFUGAL CHILLER TECHNICIAN Bonny Swanson, B.Ch., M.D. LAB S URG PATH ORDERABLES [facility] [address] [place] [address], [facility] [address] [place] [address] * [place] ARTL CATH/CNULA MONITOR PERC, LDA ANE ARTERIAL LINE INSERTION (05/12/2023 10:45 AM CENTRIFUGAL CHILLER TECHNICIAN) Narrative Shin Woods M.D. - 05/12/2023 10:45 AM CENTRIFUGAL CHILLER TECHNICIAN Marcus Tiwari R.N., CCRN ? 05/12/2023 10:58 [...] LDA ANE ENDOTRACHEAL AIRWAY (05/12/2023 10:31 AM CENTRIFUGAL CHILLER TECHNICIAN) Narrative Marcus Tiwari R.N., CCRN - 05/12/2023 10:31 AM CENTRIFUGAL CHILLER TECHNICIAN Marcus Tiwari R.N., EVANGELISTAN ? 05/12/2023 10:59 AM Airway Date/Time: 05/12/2023 [...] ETT location: oral VL device: glide scope [place] scope blade size: 4 Tube size: 7.5 [...] * Antibody Identification, Erythrocytes (05/11/2023 3:18 PM CENTRIFUGAL CHILLER TECHNICIAN) Antibody Identification No antibody detected 05/11/2023 6:14 PM CENTRIFUGAL CHILLER TECHNICIAN DTL 05/11/2023 3:18 PM CENTRIFUGAL CHILLER TECHNICIAN 05/11/2023 3:24 PM CENTRIFUGAL CHILLER TECHNICIAN Narrative [facility] - 05/11/2023 6:14 PM CENTRIFUGAL CHILLER TECHNICIAN Specimen Information: Specimen ID: [id number] Specimen Collection Start Date: 05/11/2023 ??3:18 PM Specimen Received Date: 05/11/2023 ??3:24 PM Specimen ID: [id number] Specimen Collection Start Date: 05/11/2023 ??3:18 PM Specimen Received Date: 05/11/2023 ??3:24 PM Odilon Blair APRN, C.N.P., M.S.N. L AB BLOOD BANK TEST ORDERABLES [facility] [address] [place] [address], [facility] DTL [facility] [address] [place] [address] * (ABNORMAL) CBC with Differential, Blood (05/11/2023 3:18 PM CENTRIFUGAL CHILLER TECHNICIAN) Only the most recent of31 resultswithin the time period is included. Hemoglobin 9.0(L) 13.2 - 16.6 g/dL 05/11/2023 3:35 PM CENTRIFUGAL CHILLER TECHNICIAN DTL Hematocrit 30.0(L) 38.3 - 48.6 % 05/11/2023 3:35 PM CENTRIFUGAL CHILLER TECHNICIAN DTL Erythrocytes 3.93(L) 4.35 - 5.65 x10(12)/L 05/11/2023 3:35 PM CENTRIFUGAL CHILLER TECHNICIAN DTL MCV 76.3(L) 78.2 - 97.9 fL 05/11/2023 3:35 PM CENTRIFUGAL CHILLER TECHNICIAN DTL RBC Distrib Width 19.7(H) 11.8 - 14.5 % 05/11/2023 3:35 PM CENTRIFUGAL CHILLER TECHNICIAN DTL Platelet Count 321(H) 135 - 317 x10(9)/L 05/11/2023 3:35 PM CENTRIFUGAL CHILLER TECHNICIAN DTL Leukocytes 9.5 3.4 - 9.6 x10(9)/L 05/11/2023 3:35 PM CENTRIFUGAL CHILLER TECHNICIAN DTL Neutrophils 6.39 1.56 - 6.45 x10(9)/L 05/11/2023 3:35 PM CENTRIFUGAL CHILLER TECHNICIAN DHPM Lymphocytes 1.98 0.95 - 3.07 x10(9)/L 05/11/2023 3:35 PM CENTRIFUGAL CHILLER TECHNICIAN DTL Monocytes 0.75 0.26 - 0.81 x10(9)/L 05/11/2023 3:35 PM CENTRIFUGAL CHILLER TECHNICIAN DTL Eosinophils 0.29 0.03 - 0.48 x10(9)/L 05/11/2023 3:35 PM CENTRIFUGAL CHILLER TECHNICIAN DTL Basophils 0.05 0.01 - 0.08 x10(9)/L 05/11/2023 3:35 PM CENTRIFUGAL CHILLER TECHNICIAN DTL Blood (Blood, Venous) 05/11/2023 3:18 PM CENTRIFUGAL CHILLER TECHNICIAN 05/11/2023 3:27 PM CENTRIFUGAL CHILLER TECHNICIAN Odilon Blair APRN, C.N.P., M.S.N. L AB BLOOD ADD-ON [facility] [address] [place] [address], [facility] DTL [facility] [address] [place] [address] [facility] [address] [place] [address] * Type and Screen (with Reflex Antibody ID) (05/11/2023 3:18 PM CENTRIFUGAL CHILLER TECHNICIAN) Only the most recent of4 resultswithin the time period is included. Pathologist [facility] ABORh A Pos Not applicable 05/11/2023 4:37 PM CENTRIFUGAL CHILLER TECHNICIAN ETRM Antibody Screen Positive Negative 05/11/2023 4:51 PM CENTRIFUGAL CHILLER TECHNICIAN ETRM Type & Screen Expiration 05/14/2023 23:59 05/11/2023 4:37 PM CENTRIFUGAL CHILLER TECHNICIAN ETRM Testing Location [place] DEFAULT 05/11/2023 3:24 PM CENTRIFUGAL CHILLER TECHNICIAN ETRM Blood (Blood, Venous) 05/11/2023 3:18 PM CENTRIFUGAL CHILLER TECHNICIAN 05/11/2023 3:24 PM CENTRIFUGAL CHILLER TECHNICIAN Odilon Blair APRN, C.N.P., M.S.N. L AB BLOOD BANK TEST ORDERABLES Performing Organization Address City/[facility]/ZIP Co de Phone Number [facility] [address] [place] [address], [facility] ETRM [facility] [address] [place] [address] * (ABNORMAL) Hemoglobin A1c (05/11/2023 3:18 PM CENTRIFUGAL CHILLER TECHNICIAN) Only the most recent of6 resultswithin the time period is included. Pathologist [facility] Hemoglobin A1c, B 6.5(H) 4.0 - 5.6 % 05/11/2023 5:35 PM CENTRIFUGAL CHILLER TECHNICIAN DTL Comment: Hemoglobin A1c values greater than or equal to 6.5 percent are diagnostic for diabetes mellitus. ??Diagnosis should be confirmed by repeat testing. ??In diabetic patients, HbA1c goals should be discussed with healthcare provider. Blood (Blood, Venous) 05/11/2023 3:18 PM CENTRIFUGAL CHILLER TECHNICIAN 05/11/2023 3:27 PM CENTRIFUGAL CHILLER TECHNICIAN Delma Ramirez APRN, C.N.P., D.N.P. LAB BLOOD ADD-ON [facility] [address] [place] [address], [facility] DTL [facility] [address] [place] [address] * (ABNORMAL) Basic Metabolic Panel (05/11/2023 3:18 PM CENTRIFUGAL CHILLER TECHNICIAN) Only the most recent of31 resultswithin the time period is included. Potassium, S 4.5 3.6 - 5.2 mmol/L 05/11/2023 4:01 PM CENTRIFUGAL CHILLER TECHNICIAN DTL Sodium, S 139 135 - 145 mmol/L 05/11/2023 4:01 PM CENTRIFUGAL CHILLER TECHNICIAN DTL Chloride, S 100 98 - 107 mmol/L 05/11/2023 4:01 PM CENTRIFUGAL CHILLER TECHNICIAN DTL Bicarbonate, S 28 22 - 29 mmol/L 05/11/2023 4:01 PM CENTRIFUGAL CHILLER TECHNICIAN DTL Anion Gap 11 7 - 15 05/11/2023 4:01 PM CENTRIFUGAL CHILLER TECHNICIAN DTL BUN (Blood Urea Nitrogen), S 31(H) 8 - 24 mg/dL 05/11/2023 4:01 PM CENTRIFUGAL CHILLER TECHNICIAN DTL Creatinine 1.37(H) 0.74 - 1.35 mg/dL 05/11/2023 4:01 PM CENTRIFUGAL CHILLER TECHNICIAN DTL Estimated GFR (eGFR) 55(L) >=60 mL/min/BSA 05/11/2023 4:01 PM CENTRIFUGAL CHILLER TECHNICIAN DTL Comment: Estimated GFR calculated using the 2020 CKD_EPI creatinine equation. Calcium, Total, S 9.1 8.8 - 10.2 mg/dL 05/11/2023 4:01 PM CENTRIFUGAL CHILLER TECHNICIAN DTL Glucose, S 192(H) 70 - 140 mg/dL 05/11/2023 4:01 PM CENTRIFUGAL CHILLER TECHNICIAN DTL Blood (Blood, Venous) 05/11/2023 3:18 PM CENTRIFUGAL CHILLER TECHNICIAN 05/11/2023 3:45 PM CENTRIFUGAL CHILLER TECHNICIAN Odilon Blair APRN, C.N.P., M.S.N. L AB BLOOD ADD-ON Performing Organization Address City/[facility] Co de Phone Number [facility] [address] [place] [address], [facility] DTL [facility] [address] [place] [address] * (ABNORMAL) Magnesium (04/27/2023 6:34 AM CENTRIFUGAL CHILLER TECHNICIAN) Only the most recent of7 resultswithin the time period is included. Magnesium, P 1.6(L) 1.7 - 2.3 mg/dL 04/27/2023 7:00 AM CENTRIFUGAL CHILLER TECHNICIAN [facility] Blood (Blood, Venous) 04/27/2023 6:34 AM CENTRIFUGAL CHILLER TECHNICIAN 04/27/2023 6:39 AM CENTRIFUGAL CHILLER TECHNICIAN Moises Ochoa M.D. LAB BLOOD ADD -ON Performing Organization Address [facility] Co de Phone Number [facility] [address] [place] [address], [facility] [place] [address] [place] [address] * (ABNORMAL) Urinalysis with Microscopic: Urine, Midstream (04/26/2023 2:10 PM CENTRIFUGAL CHILLER TECHNICIAN) Only the most recent of14 resultswithin the time period is included. Source Urine, Urine, Midstream 04/26/2023 2:16 PM CENTRIFUGAL CHILLER TECHNICIAN [facility] Clarity Clear Clear 04/26/2023 2:20 PM CENTRIFUGAL CHILLER TECHNICIAN [facility] Color Yellow 04/26/2023 2:20 PM CENTRIFUGAL CHILLER TECHNICIAN [facility] Comment: ----REFERENCE VALUE---- Colorless Yellow Francine Blood Negative Negative 04/26/2023 2:20 PM CENTRIFUGAL CHILLER TECHNICIAN [facility] Nitrite Negative Negative 04/26/2023 2:20 PM CENTRIFUGAL CHILLER TECHNICIAN [facility] Leukocyte Esterase Trace(A) Negative 04/26/2023 2:20 PM CENTRIFUGAL CHILLER TECHNICIAN [facility] Protein Negative mg/dL 04/26/2023 2:20 PM CENTRIFUGAL CHILLER TECHNICIAN [facility] Comment: ----REFERENCE VALUE---- Negative Trace Glucose 100(A) Negative mg/dL 04/26/2023 2:20 PM CENTRIFUGAL CHILLER TECHNICIAN [facility] Ketones, QI(U) Negative Negative mg/dL 04/26/2023 2:20 PM CENTRIFUGAL CHILLER TECHNICIAN [facility] Bilirubin Negative Negative 04/26/2023 2:20 PM CENTRIFUGAL CHILLER TECHNICIAN [facility] pH 5.5 5.0 - 8.0 04/26/2023 2:20 PM CENTRIFUGAL CHILLER TECHNICIAN [facility] Specific [place] 1.020 1.001 - 1.035 04/26/2023 2:20 PM CENTRIFUGAL CHILLER TECHNICIAN [facility] Urobilinogen 0.2 0.2 - 1.0 mg/dL 04/26/2023 2:20 PM CENTRIFUGAL CHILLER TECHNICIAN [facility] White Blood Cells Occ-3 /hpf 04/26/2023 2:48 PM CENTRIFUGAL CHILLER TECHNICIAN [facility] Comment: ----REFERENCE VALUE---- Males: 0-3 Females: 0-10 Unknown: 0-10 Red Blood Cells Occ-2 0 - 2 /hpf 2:48 PM CENTRIFUGAL CHILLER TECHNICIAN [facility] Dysmorphic Red Blood Cells <=25 <=25 % 04/26/2023 2:48 PM CENTRIFUGAL CHILLER TECHNICIAN [facility] Squamous Cells Occ-3 /hpf 04/26/2023 2:48 PM CENTRIFUGAL CHILLER TECHNICIAN [facility] Urine (Urine, Midstream) 04/26/2023 2:10 PM CENTRIFUGAL CHILLER TECHNICIAN 04/26/2023 2:16 PM CENTRIFUGAL CHILLER TECHNICIAN Moises Ochoa M.D. LAB URINE ORD ERABLES [facility] [address] [place] [address], [facility] in [address] [address] * (ABNORMAL) Comprehensive Metabolic Panel (04/24/2023 9:36 AM CENTRIFUGAL CHILLER TECHNICIAN) Only the most recent of5 resultswithin the time period is included. Potassium, P 4.1 3.6 - 5.2 mmol/L 04/24/2023 10:04 AM CENTRIFUGAL CHILLER TECHNICIAN [facility] Sodium, P 141 135 - 145 mmol/L 04/24/2023 10:04 AM CENTRIFUGAL CHILLER TECHNICIAN [facility] Chloride, P 105 98 - 107 mmol/L 04/24/2023 10:04 AM CENTRIFUGAL CHILLER TECHNICIAN [facility] Bicarbonate, P 24 22 - 29 mmol/L 04/24/2023 10:04 AM CENTRIFUGAL CHILLER TECHNICIAN [facility] Anion Gap, P 12 7 - 15 04/24/2023 10:04 AM CENTRIFUGAL CHILLER TECHNICIAN [facility] BUN (Blood Urea Nitrogen), P 30(H) 8 - 24 mg/dL 04/24/2023 10:04 AM CENTRIFUGAL CHILLER TECHNICIAN [facility] Creatinine 1.33 0.74 - 1.35 mg/dL 04/24/2023 10:04 AM CENTRIFUGAL CHILLER TECHNICIAN [facility] Estimated GFR (eGFR) 58(L) >=60 mL/min/BS A 04/24/2023 10:04 AM CENTRIFUGAL CHILLER TECHNICIAN [facility] Comment: Estimated GFR calculated using the 2020 CKD_EPI creatinine equation. Calcium, Total, P 8.7(L) 8.8 - 10.2 mg/dL 04/24/2023 10:04 AM CENTRIFUGAL CHILLER TECHNICIAN [facility] Glucose, P 263(H) 70 - 140 mg/dL 04/24/2023 10:04 AM CENTRIFUGAL CHILLER TECHNICIAN [facility] Protein, Total, P 5.6(L) 6.3 - 7.9 g/dL 04/24/2023 10:04 AM CENTRIFUGAL CHILLER TECHNICIAN [facility] Albumin, P 3.3(L) 3.5 - 5.0 g/dL 04/24/2023 10:04 AM CENTRIFUGAL CHILLER TECHNICIAN [facility] Aspartate Aminotransferase (AST), P 7(L) 8 - 48 U/L 04/24/2023 10:04 AM CENTRIFUGAL CHILLER TECHNICIAN [facility] Alkaline Phosphatase, P 84 40 - 129 U/L 04/24/2023 10:04 AM CENTRIFUGAL CHILLER TECHNICIAN [facility] Alanine Aminotransferase (ALT), P 11 7 - 55 U/L 04/24/2023 10:04 AM CENTRIFUGAL CHILLER TECHNICIAN [facility] Bilirubin, Total, P <0.2 0.0 - 1.2 mg/dL 04/24/2023 10:04 AM CENTRIFUGAL CHILLER TECHNICIAN [facility] Blood (Blood, Venous) 04/24/2023 9:36 AM CENTRIFUGAL CHILLER TECHNICIAN 04/24/2023 9:46 AM CENTRIFUGAL CHILLER TECHNICIAN Hilary Barnhart M.D. LAB BLOOD ADD-ON [facility] [address] [place] [address], [facility] in [address] [address] * Bacteria / Ronda Culture, Blood #2 (04/20/2023 12:50 PM CENTRIFUGAL CHILLER TECHNICIAN) Only the most recent of10 resultswithin the time period is included. Pathologist [facility] Bacteria/Mariola da Culture, Blood No growth after 5 day/s of incubation. 04/25/2023 1:05 PM CENTRIFUGAL CHILLER TECHNICIAN [facility] Blood (Blood, Peripheral Draw) 04/20/2023 12:50 PM CENTRIFUGAL CHILLER TECHNICIAN 04/20/2023 12:55 PM CENTRIFUGAL CHILLER TECHNICIAN Comment:Specimen Source Site : Blood Leila Jo M.D. LAB MICROBIOLOGY - G ENERAL ORDERABLES [facility] [address] [place] [address], [facility] in [address] [address] * Lactate (04/18/2023 4:33 PM CENTRIFUGAL CHILLER TECHNICIAN) Only the most recent of3 resultswithin the time period is included. [facility] Lactate, P 0.9 0.5 - 2.2 mmol/L 04/18/2023 7:09 PM CENTRIFUGAL CHILLER TECHNICIAN [facility] Blood (Blood, Venous) 04/18/2023 4:33 PM CENTRIFUGAL CHILLER TECHNICIAN 04/18/2023 7:09 PM CENTRIFUGAL CHILLER TECHNICIAN Leila Jo M.D. LAB BLOOD NON ADD-ON [facility] [address] [place] [address], [facility] in [address] [address] * SARS Coronavirus 2, PCR Rapid Symptomatic (04/18/2023 3:25 PM CENTRIFUGAL CHILLER TECHNICIAN) Only the most recent of2 resultswithin the time period is included. Pathologist [facility] SARS CoV-2, PCR, Rapid, V Undetected Undetected 04/18/2023 3:58 PM CENTRIFUGAL CHILLER TECHNICIAN [facility] Comment: ----ADDITIONAL INFORMATION---- This RT-PCR test was performed using the [employer] SARS-CoV-2 and Influenza A/B Reagent assay from [facility], which has received Emergency Use Authorization(EUA) by the U.S. Food and Drug Administration. Fact sheets for this Emergency Use Authorization (EUA) assay can be found at the following links: For Healthcare Providers: https://www.fda.gov/media/025976/download For Patients: https://www.fda.gov/media/986546/download SARS Coronavirus 2, Source, Rapid Swab, Nasopharynx 04/18/2023 3:38 PM CENTRIFUGAL CHILLER TECHNICIAN [facility] Swab (Nasopharynx) 04/18/2023 3:25 PM CENTRIFUGAL CHILLER TECHNICIAN 04/18/2023 3:38 PM CENTRIFUGAL CHILLER TECHNICIAN Leila Jo M.D. LAB MICROBIOLOGY - G ENERAL ORDERABLES Performing Organization Address [facility]/ZIP Co de Phone Number [address] [address], [facility] in [address] [address] * Influenza A/B and RSV, PCR, Point of Care (04/18/2023 3:25 PM CENTRIFUGAL CHILLER TECHNICIAN) Influenza A, POCT Negative Negative 04/18/2023 3:40 PM CENTRIFUGAL CHILLER TECHNICIAN [facility] Influenza B, POCT Negative Negative 04/18/2023 3:40 PM CENTRIFUGAL CHILLER TECHNICIAN [facility] Resp Syncytial Virus, POCT Negative Negative 04/18/2023 3:40 PM CENTRIFUGAL CHILLER TECHNICIAN [facility] Swab (Nasopharynx) 04/18/2023 3:25 PM CENTRIFUGAL CHILLER TECHNICIAN 04/18/2023 3:38 PM CENTRIFUGAL CHILLER TECHNICIAN Leila Jo M.D. LAB POCT ORDERABLES - DEVICE Performing Organization Address [facility]/ZIP Co de Phone Number [facility] [address] [place] [phone], [facility] in [address] [address] * CT Abdomen Pelvis with IV Contrast (04/18/2023 2:12 PM CENTRIFUGAL CHILLER TECHNICIAN) Anatomical Region Laterality Modality Abdomen, Pelvis, Abdominal R ST LOS, Abdominal ARZ LOS, Abdominal FLA LOS N/A Computed Tomography 04/18/2023 2:08 PM CENTRIFUGAL CHILLER TECHNICIAN Impressions 04/18/2023 4:14 PM CENTRIFUGAL CHILLER TECHNICIAN 1. Limited/incomplete CT imaging of lateral right [...] kidneys and pancreas. Narrative 04/18/2023 4:14 PM CENTRIFUGAL CHILLER TECHNICIAN EXAM: CT ABDOMEN PELVIS WITH IV CONTRAST [...] the lateral right abdomen not included within [id number]. Within this limitation, no evidence of bowel [...] of the lateral rightabdomen not included within [id number]. Within this limitation, noevidence of bowel obstruction, [...] the kidneys and pancreas. Leila Jo M.D. IMG CT PROCEDURES * Lactate for Sepsis with Reflex (04/18/2023 12:29 PM CENTRIFUGAL CHILLER TECHNICIAN) Lactate, P 0.9 0.5 - 2.2 mmol/L 04/18/2023 4:21 PM CENTRIFUGAL CHILLER TECHNICIAN [facility] Blood (Blood, Venous) 04/18/2023 12:29 PM CENTRIFUGAL CHILLER TECHNICIAN 04/18/2023 12:37 PM CENTRIFUGAL CHILLER TECHNICIAN Leila Jo M.D. LAB BLOOD NON ADD-ON [facility] [address] [place] [phone], [facility] in [address] [address] * (ABNORMAL) Susceptibility, Anaerobic, JEANCARLOS (04/18/2023 12:29 PM CENTRIFUGAL CHILLER TECHNICIAN) Susceptibility , Anaerobic, JEANCARLOS CLOSTRIDIUM SEPTICUM(A) 04/26/2023 2:09 PM CENTRIFUGAL CHILLER TECHNICIAN DTL Comment:Organism identified by client. Blood, Peripheral Draw 04/18/2023 12:29 PM CENTRIFUGAL CHILLER TECHNICIAN 04/21/2023 11:27 AM CENTRIFUGAL CHILLER TECHNICIAN Comment:Specimen Source Site : Blood Narrative [facility] - 04/26/2023 2:09 PM CENTRIFUGAL CHILLER TECHNICIAN CLOSEP Organism Antibiotic Method Susceptibility Clostridium septicum Clindamycin SUSCEPTIBIL ITY, JEANCARLOS (MCG/ML) <=2 mcg/mL: Susceptible Clostridium septicum Ertapenem SUSCEPTIBIL ITY, JEANCARLOS (MCG/ML) <=4 mcg/mL: Susceptible Clostridium septicum Metronidazole SUSCEPTIBIL ITY, JEANCARLOS (MCG/ML) 4 mcg/mL: Susceptible Clostridium septicum Penicillin SUSCEPTIBIL ITY, JEANCARLOS (MCG/ML) <=0.5 mcg/mL: Susceptible Clostridium septicum Piperacillin + Tazobactam SUSCEPTIBILITY, JEANCARLOS (MCG/ML) <=16/4 mcg/mL: Susceptible Leila Jo M.D. LAB MICROBIOLOGY - [facility] ORDERABLES [facility] [address] [place] [address], [place] [facility] [address] [place] [address] * ECG 12 Lead (04/15/2023 9:35 AM CENTRIFUGAL CHILLER TECHNICIAN) Only the most recent of8 resultswithin the time period is included. Ventricular Rate ECG/Min 66 BPM MUSE FL Interval 304 ms MUSE QRSD Interval 102 ms MUSE QT Interval 406 ms MUSE QTC Interval 425 ms MUSE P [place] 23 degrees MUSE R [place] 20 degrees MUSE T Wave [place] 75 degrees MUSE 04/15/2023 9:35 AM CENTRIFUGAL CHILLER TECHNICIAN 04/15/2023 10:24 AM CENTRIFUGAL CHILLER TECHNICIAN Impressions MUSE - 04/15/2023 10:24 AM CENTRIFUGAL CHILLER TECHNICIAN Sinus rhythm with 1st degree A-V block [...] SAIGE Hector Carter Steiner M.D. ECG ORDERABLES Performing Organization Address City/[facility]/ZIP Co de Phone Number MUSE NA * (ABNORMAL) Morphology Evaluation (04/15/2023 5:56 AM CENTRIFUGAL CHILLER TECHNICIAN) Only the most recent of6 resultswithin the time period is included. RBC Morphology See Specific Findings 04/15/2023 6:31 AM CENTRIFUGAL CHILLER TECHNICIAN [facility] PLT Morphology Normal 04/15/2023 6:31 AM CENTRIFUGAL CHILLER TECHNICIAN [facility] PLT Estimate Adequate Adequate 04/15/2023 6:31 AM CENTRIFUGAL CHILLER TECHNICIAN [facility] Anisocytosis Slight(A) 04/15/2023 6:31 AM CENTRIFUGAL CHILLER TECHNICIAN [facility] Elliptocytes Slight(A) Not Seen 04/15/2023 6:31 AM CENTRIFUGAL CHILLER TECHNICIAN [facility] Blood 04/15/2023 5:56 AM CENTRIFUGAL CHILLER TECHNICIAN 04/15/2023 6:08 AM CENTRIFUGAL CHILLER TECHNICIAN Florencio Smith D.O. LAB BLOOD ADD-ON Performing Organization Address [facility] Co de Phone Number [facility] [address] [place] [address], [facility] [place] [address] * (ABNORMAL) Bacterial Culture, Aerobic + Susceptibility, Urine (04/12/2023 8:52 PM CENTRIFUGAL CHILLER TECHNICIAN) Only the most recent of9 resultswithin the time period is included. Urine Culture ESCHERICHIA COLI >100,000 cfu/mL (A) 04/15/2023 7:30 AM CENTRIFUGAL CHILLER TECHNICIAN MKTO Urine (Urine, Midstream) 04/12/2023 8:52 PM CENTRIFUGAL CHILLER TECHNICIAN 04/13/2023 2:02 PM CENTRIFUGAL CHILLER TECHNICIAN Comment:Specimen Source Site : Urine Narrative Organism [...] M.D. LAB MICROBIOL [place]GY [place] [address], [facility] [place] [address] * (ABNORMAL) CBC without Differential (04/08/2023 5:52 AM CENTRIFUGAL CHILLER TECHNICIAN) Only the most recent of15 resultswithin the time period is included. Hemoglobin 8.7(L) 13.2 - 16.6 g/dL 04/08/2023 6:32 AM CENTRIFUGAL CHILLER TECHNICIAN [facility] Hematocrit 29.8(L) 38.3 - 48.6 % 04/08/2023 6:32 AM CENTRIFUGAL CHILLER TECHNICIAN [facility] Erythrocytes 3.81(L) 4.35 - 5.65 x10(12)/L 04/08/2023 6:32 AM CENTRIFUGAL CHILLER TECHNICIAN [facility] MCV 78.2 78.2 - 97.9 fL 04/08/2023 6:32 AM CENTRIFUGAL CHILLER TECHNICIAN [facility] RBC Distrib Width 24.5(H) 11.8 - 14.5 % 04/08/2023 6:32 AM CENTRIFUGAL CHILLER TECHNICIAN [facility] Platelet Count 245 135 - 317 x10(9)/L 04/08/2023 6:32 AM CENTRIFUGAL CHILLER TECHNICIAN [facility] Leukocytes 5.9 3.4 - 9.6 x10(9)/L 04/08/2023 6:32 AM CENTRIFUGAL CHILLER TECHNICIAN [facility] Blood (Blood, Venous) 04/08/2023 5:52 AM CENTRIFUGAL CHILLER TECHNICIAN 04/08/2023 6:18 AM CENTRIFUGAL CHILLER TECHNICIAN Carter Steiner M.D. LAB BLOOD ADD-ON Performing Organization Address [facility] Co de Phone Number [facility]- [address] [address], [facility] in [address] [address] * (ABNORMAL) CRP (C-Reactive Protein) (04/07/2023 6:08 AM CENTRIFUGAL CHILLER TECHNICIAN) Only the most recent of2 resultswithin the time period is included. C-Reactive Protein (CRP), P 18.9(H) <5.0 mg/L 04/07/2023 8:42 AM CENTRIFUGAL CHILLER TECHNICIAN CA Blood (Blood, Venous) 04/07/2023 6:08 AM CENTRIFUGAL CHILLER TECHNICIAN 04/07/2023 8:04 AM CENTRIFUGAL CHILLER TECHNICIAN Carter Steiner M.D. LAB BLOOD ADD-ON Performing Organization Address City/[facility]/ZIP Co de Phone Number [facility]- [address] [address], [facility] in [address] [address] * (ABNORMAL) Iron and Total Iron-Binding Capacity (03/28/2023 6:01 AM CENTRIFUGAL CHILLER TECHNICIAN) Only the most recent of2 resultswithin the time period is included. Iron 26(L) 50 - 150 mcg/dL 03/28/2023 2:44 PM CENTRIFUGAL CHILLER TECHNICIAN MKTO Total Iron Binding Capacity 251 250 - 400 mcg/dL 03/28/2023 2:44 PM CENTRIFUGAL CHILLER TECHNICIAN MKTO Percent Saturation 10(L) 14 - 50 % 03/28/2023 2:44 PM CENTRIFUGAL CHILLER TECHNICIAN MKTO Blood (Blood, Venous) 03/28/2023 6:01 AM CENTRIFUGAL CHILLER TECHNICIAN 03/28/2023 2:15 PM CENTRIFUGAL CHILLER TECHNICIAN Leila Jo M.D. LAB BLOOD ADD-ON Performing Organization Address City/[facility]/ZIP Co de Phone Number [facility] [address] [place] [address], [place] MKTO [facility] [place] [address] [place] [address] * (ABNORMAL) Hemoglobin (03/26/2023 6:19 AM CENTRIFUGAL CHILLER TECHNICIAN) Only the most recent of15 resultswithin the time period is included. Hemoglobin 8.1(L) 13.2 - 16.6 g/dL 03/26/2023 7:37 AM CENTRIFUGAL CHILLER TECHNICIAN [facility] Blood (Blood, Venous) 03/26/2023 6:19 AM CENTRIFUGAL CHILLER TECHNICIAN 03/26/2023 7:03 AM CENTRIFUGAL CHILLER TECHNICIAN Florencio Smith D.O. LAB BLOOD ADD-ON Performing Organization Address City/[facility]/ZIP Co de Phone Number [facility] [address] [place] [phone], [facility] in [address] [address] * (ABNORMAL) BMP (Basic Metabolic Panel), POCT (03/24/2023 6:26 AM CENTRIFUGAL CHILLER TECHNICIAN) BUN (Blood Urea Nitrogen), POCT, B 30(H) 8 - 24 mg/dL 03/24/2023 6:26 AM CENTRIFUGAL CHILLER TECHNICIAN [facility] Chloride, POCT, B 101 98 - 107 mmol/L 03/24/2023 6:26 AM CENTRIFUGAL CHILLER TECHNICIAN [facility] Creatinine, POCT, B 1.5(H) 0.7 - 1.4 mg/dL 03/24/2023 6:26 AM CENTRIFUGAL CHILLER TECHNICIAN [facility] Comment: ----ADDITIONAL INFORMATION---- Performed at the Point of Care Estimated GFR (eGFR), POCT 50(L) >=60 mL/min/BSA 03/24/2023 6:28 AM CENTRIFUGAL CHILLER TECHNICIAN [facility] Comment: Estimated GFR calculated using the 2020 CKD_EPI creatinine equation. Glucose, POCT, B 142(H) 70 - 140 mg/dL 03/24/2023 6:26 AM CENTRIFUGAL CHILLER TECHNICIAN [facility] Calcium, Ionized, POCT, B 4.80 4.65 - 5.30 mg/dL 03/24/2023 6:26 AM CENTRIFUGAL CHILLER TECHNICIAN [facility] Potassium, POCT, B 3.9 3.6 - 5.2 mmol/L 03/24/2023 6:26 AM CENTRIFUGAL CHILLER TECHNICIAN [facility] Sodium, POCT, B 138 135 - 145 mmol/L 03/24/2023 6:26 AM CENTRIFUGAL CHILLER TECHNICIAN [facility] Total CO2, POCT, B 27 22 - 29 mmol/L 03/24/2023 6:26 AM CENTRIFUGAL CHILLER TECHNICIAN [facility] Anion Gap, POCT, B 10 7 - 15 03/24/2023 6:26 AM CENTRIFUGAL CHILLER TECHNICIAN [facility] Blood 03/24/2023 6:26 AM CENTRIFUGAL CHILLER TECHNICIAN 03/24/2023 6:28 AM CENTRIFUGAL CHILLER TECHNICIAN Generic Rals LAB POCT ORDERABLES - DEVICE [facility] [address] [place] [address], [facility] [place] [address] * Transfuse Red Blood Cells : (03/21/2023 6:51 PM CENTRIFUGAL CHILLER TECHNICIAN) Only the most recent of2 resultswithin the time period is included. Leila Jo M.D. BLOOD TRANSFUSION OR DERABLES * Testing Location (03/21/2023 12:29 PM CENTRIFUGAL CHILLER TECHNICIAN) Testing Location [facility] DEFAULT 03/21/2023 12:48 PM CENTRIFUGAL CHILLER TECHNICIAN MKTO Blood 03/21/2023 12:2 9 PM CENTRIFUGAL CHILLER TECHNICIAN 03/21/2023 12:47 PM CENTRIFUGAL CHILLER TECHNICIAN Leila Jo M.D. LAB BLOOD BANK TEST ORDERABLES [facility] [address] [place] [address], [facility] [address] [place] [address] * (ABNORMAL) Prealbumin (PAB) (03/21/2023 6:09 AM CENTRIFUGAL CHILLER TECHNICIAN) Prealbumin 15(L) 19 - 38 mg/dL 03/21/2023 2:34 PM CENTRIFUGAL CHILLER TECHNICIAN [facility] Blood (Blood, Venous) 03/21/2023 6:09 AM CENTRIFUGAL CHILLER TECHNICIAN 03/21/2023 2:08 PM CENTRIFUGAL CHILLER TECHNICIAN Leila Jo M.D. LAB BLOOD ADD-ON [facility] [address] [place] [address], [address] [address] * (ABNORMAL) Albumin (03/21/2023 6:09 AM CENTRIFUGAL CHILLER TECHNICIAN) Only the most recent of2 resultswithin the time period is included. Albumin, P 3.2(L) 3.5 - 5.0 g/dL 03/21/2023 7:43 AM CENTRIFUGAL CHILLER TECHNICIAN [facility] Blood (Blood, Venous) 03/21/2023 6:09 AM CENTRIFUGAL CHILLER TECHNICIAN 03/21/2023 7:29 AM CENTRIFUGAL CHILLER TECHNICIAN Leila Jo M.D. LAB BLOOD ADD-ON [facility] [address] [place] [address], [facility] [place] [address] [place] [address] * Leg, right-Nursing Image Exam (03/14/2023 11:50 AM CENTRIFUGAL CHILLER TECHNICIAN) Only the most recent of2 resultswithin the time period is included. 03/14/2023 11:4 8 AM CENTRIFUGAL CHILLER TECHNICIAN Narrative IIMS - 03/14/2023 11:50 AM CENTRIFUGAL CHILLER TECHNICIAN This order has been created and auto-finalized to support the import of images acquired without order. The clinical documentation to support these images can be found on the encounter that produced images. Provider Not In System IMG NON RAD IMAGI NG PROCEDURES Performing Organization Address [facility] de Phone Number [facility]S NA * Leg-Emergency Department Image Exam (03/08/2023 2:50 PM CENTRIFUGAL CHILLER TECHNICIAN) 03/08/2023 2:49 PM CENTRIFUGAL CHILLER TECHNICIAN Narrative [facility]IM[facility] - 03/08/2023 2:52 PM CENTRIFUGAL CHILLER TECHNICIAN This order has been created and auto-finalized to support the import of images acquired without order. The clinical documentation to support these images can be found on the encounter that produced images. Provider Not In System IMG NON RAD IMAGI NG PROCEDURES Performing Organization Address [facility] de Phone Number [facility] NA * Back-Family Medicine Image Exam (02/25/2023 11:08 AM CENTRIFUGAL CHILLER TECHNICIAN) Only the most recent of2 resultswithin the time period is included. 02/25/2023 11:0 6 AM CENTRIFUGAL CHILLER TECHNICIAN Narrative [facility]IMS - 02/25/2023 11:08 AM CENTRIFUGAL CHILLER TECHNICIAN This order has been created and auto-finalized to support the import of images acquired without order. The clinical documentation to support these images can be found on the encounter that produced images. Provider Not In System IMG NON RAD IMAGI NG PROCEDURES Performing Organization Address [facility] de Phone Number IIMS NA * IR Lumbar Spine Facet Injection Right (02/25/2023 10:48 AM CENTRIFUGAL CHILLER TECHNICIAN) Only the most recent of2 resultswithin the time period is included. Anatomical Region Laterality Modality Lumbar Spine, Neuro Interven tional RST LOS, Neuroradiology ARZ LOS, Neuro Interventional FLA LOS Right X -Ray Angiography 02/25/2023 10:5 2 AM CENTRIFUGAL CHILLER TECHNICIAN Impressions 02/25/2023 11:18 AM CENTRIFUGAL CHILLER TECHNICIAN 1. Fluoroscopically-guided right L4-L5 transforaminal epidural steroid injection was performed. 2. Left sided injection was not performed due to significant patient discomfort with procedural positioning and difficulty repositioning the patient. NR Narrative 02/25/2023 11:18 AM CENTRIFUGAL CHILLER TECHNICIAN EXAM: IR LUMBAR SPINE FACET INJECTION RIGHT; [...] positioning and difficulty repositioning thepatient. NR Arabella GROSS IR PROCEDU RES * Electrolyte (Chem 4) Panel (02/24/2023 5:44 AM CENTRIFUGAL CHILLER TECHNICIAN) Only the most recent of4 resultswithin the time period is included. Potassium, P 4.0 3.6 - 5.2 mmol/L 02/24/2023 6:47 AM CENTRIFUGAL CHILLER TECHNICIAN DTL Sodium, P 139 135 - 145 mmol/L 02/24/2023 6:47 AM CENTRIFUGAL CHILLER TECHNICIAN DTL Chloride, P 105 98 - 107 mmol/L 02/24/2023 6:47 AM CENTRIFUGAL CHILLER TECHNICIAN DTL Bicarbonate, P 24 22 - 29 mmol/L 02/24/2023 6:47 AM CENTRIFUGAL CHILLER TECHNICIAN DTL Anion Gap, P 10 7 - 15 02/24/2023 6:47 AM CENTRIFUGAL CHILLER TECHNICIAN DTL Blood (Blood, Venous) 02/24/2023 5:44 AM CENTRIFUGAL CHILLER TECHNICIAN 02/24/2023 6:12 AM CENTRIFUGAL CHILLER TECHNICIAN Maisha Ny M.D. LAB BLOOD ADD-ON Performing Organization Address City/[facility]/ZIP Co de Phone Number [facility] [address] [place] [address] * Vancomycin, Trough (02/23/2023 6:28 PM CENTRIFUGAL CHILLER TECHNICIAN) Pathologist [facility] Vancomycin, Trough, S 19.8 10.0 - 20.0 mcg/mL 02/23/2023 8:21 PM CENTRIFUGAL CHILLER TECHNICIAN DTL Blood (Blood, Venous) 02/23/2023 6:28 PM CENTRIFUGAL CHILLER TECHNICIAN 02/23/2023 7:03 PM CENTRIFUGAL CHILLER TECHNICIAN Montserrat Gilbert M.D. LAB BLOOD NON ADD- ON Performing Organization Address [facility] Co de Phone Number [facility] [address] [place] [address], [facility] [place] [address] [place] [address] * PET CT Skull to Thigh FDG (02/22/2023 12:21 PM CENTRIFUGAL CHILLER TECHNICIAN) Anatomical Region Laterality Modality Body, Nuclear Medicine PET R ST LOS, PET ARZ LOS, Nuclear Medicine PET FLA LOS, Nuclear Medicine N/A Positron Emission Tomography (PET), Positron Emission Tomography (PET) 02/22/2023 1:12 PM CENTRIFUGAL CHILLER TECHNICIAN Impressions 02/22/2023 1:32 PM CENTRIFUGAL CHILLER TECHNICIAN 1. Markedly FDG avid mass in the ascending colon, consistent with the primary colonic neoplasm. 2. No definite abnormal FDG uptake that could correspond with the known sigmoid neoplasm. 3. At least three right paracolic lymph nodes, worrisome for metastases. 4. No FDG avid distant metastatic disease. Narrative 02/22/2023 1:32 PM CENTRIFUGAL CHILLER TECHNICIAN EXAM: ??PET CT SKULL TO THIGH FDG Serum glucose at time of F-18 FDG injection was 121 mg/dL. Patient followed standard dietary/fasting requirements for this exam. RADIOPHARMACEUTICAL/MEDS: Route: intravenous fludeoxyglucose F 18 injection [facility] (FDG F-18),8.02 millicurie TECHNIQUE: ??F-18 FDG PET/CT [...] RADIOPHARMACEUTICAL/MEDS: Route: intravenous fludeoxyglucose F 18 injection [facility] (FDG F-18),8.02 millicurie TECHNIQUE: F-18 FDG PET/CT [...] avid distant metastatic disease. Radha Saba M.D. IM NM PROCEDURES * (ABNORMAL) SPSMA Result (02/21/2023 4:34 PM CENTRIFUGAL CHILLER TECHNICIAN) Only the most recent of2 resultswithin the time period is included. Neutrophilic Segs and Bands 65 50 - 75 % 02/21/2023 5:51 PM CENTRIFUGAL CHILLER TECHNICIAN DHPM Lymphocytes 21 18 - 42 % 02/21/2023 5:51 PM CENTRIFUGAL CHILLER TECHNICIAN DHPM Monocytes 6 2 - 11 % 02/21/2023 5:51 PM CENTRIFUGAL CHILLER TECHNICIAN DHPM Eosinophils 7(H) 1 - 3 % 02/21/2023 5:51 PM CENTRIFUGAL CHILLER TECHNICIAN DHPM Basophils 1 0 - 2 % 02/21/2023 5:51 PM CENTRIFUGAL CHILLER TECHNICIAN DHPM Manual Absolute Neutrophil Count 3.51 1.56 - 6.45 x10(9)/L 02/21/2023 5:51 PM CENTRIFUGAL CHILLER TECHNICIAN DHPM Comment: ----ADDITIONAL INFORMATION---- The manual absolute neutrophil count is derived from a manual differential count and therefore is not exactly comparable to the automated absolute neutrophil count. Interpretation See Comment 5:51 PM CENTRIFUGAL CHILLER TECHNICIAN DHPM Comment: No morphologic features of hemolysis are seen. Hypochromic microcytic red blood cells are present: consider iron deficiency anemia. Reviewed by: Dev 02/21/2023 5:51 PM CENTRIFUGAL CHILLER TECHNICIAN DHPM Blood 02/21/2023 4:34 PM CENTRIFUGAL CHILLER TECHNICIAN 02/21/2023 4:49 PM CENTRIFUGAL CHILLER TECHNICIAN Yaquelin Juares M.D. LAB BLOOD ADD-ON [facility] [address] [place] [address], [facility] [address] [place] [address] * MR Cervical Spine without IV Contrast (02/21/2023 3:05 PM CENTRIFUGAL CHILLER TECHNICIAN) Anatomical Region Laterality Modality Spine, Cervical Spine, Neuro radiology RST LOS, Neuroradiology ARZ LOS, Neuroradiology FLA LOS N/A Magneti c Resonance 02/21/2023 3:14 PM CENTRIFUGAL CHILLER TECHNICIAN Impressions 02/22/2023 8:23 AM CENTRIFUGAL CHILLER TECHNICIAN Noncontrasted MR imaging of the cervical spine [...] neural foraminal stenosis. Narrative 02/22/2023 8:23 AM CENTRIFUGAL CHILLER TECHNICIAN EXAM: MR CERVICAL SPINE WITHOUT IV CONTRAST [...] C3-4. No high-grade cervicalneural foraminal stenosis. Yaquelin GROSS MRI PROCEDUR ES * CT Abdomen Pelvis Angiogram with IV Contrast (02/21/2023 12:26 PM CENTRIFUGAL CHILLER TECHNICIAN) Anatomical Region Laterality Modality Abdomen, Pelvis, Cardiovascu lar RST LOS, Abdominal ARZ LOS, Vascular Interventional ARZ LOS, Abdominal FLA LOS, Vascular Interventional FLA LOS, Procedural N/A Computed Tomography, Compute d Tomography 02/21/2023 12:1 4 PM CENTRIFUGAL CHILLER TECHNICIAN Impressions 02/21/2023 1:37 PM CENTRIFUGAL CHILLER TECHNICIAN 1. No active gastrointestinal bleeding identified. 2. Primary colonic adenocarcinoma of the ascending colon with mild interval increase in mural thickness. 3. Interval passage of endoscopic clips from the sigmoid colon. 4. Decreased size of pelvic retroperitoneal lymphadenopathy 5. Remainder not significantly changed. Narrative 02/21/2023 1:37 PM CENTRIFUGAL CHILLER TECHNICIAN EXAM: ??CT ABDOMEN PELVIS ANGIOGRAM WITH IV CONTRAST Including 3D image post-processing. COMPARISON: ??CT abdomen and pelvis with IV contrast from an outside institution dated 02/01/2023 and reinterpreted at [facility] on 02/07/2023. FINDINGS: VASCULAR FINDINGS: No active [...] (series 7, image 241), previously 16 mm ([id number] screen captures in series 1000). No pneumatosis, [...] (series 7, image 462), previously 24 mm ([id number] screen captures in series 1000). Similar mildly [...] Spine with IV Contrast (02/21/2023 12:26 PM CENTRIFUGAL CHILLER TECHNICIAN) Anatomical Region Laterality Modality Lumbar Spine, Neuroradiology RST LOS, Neuroradiology ARZ LOS, Neuroradiology FLA LOS N/A Computed Tomography, Compute d Tomography 02/21/2023 12:2 9 PM CENTRIFUGAL CHILLER TECHNICIAN Impressions 02/21/2023 12:37 PM CENTRIFUGAL CHILLER TECHNICIAN 1. Multilevel lumbar spondylotic changes as described, seen in greater detail on MRI of 02/20/2023. Multilevel spinal canal narrowing is most prominent at L3-4 and L4-5 where it is advanced. 2. Multilevel neural foraminal narrowing, most prominent at L5-S1 where it is advanced bilaterally. Narrative 02/21/2023 12:37 PM CENTRIFUGAL CHILLER TECHNICIAN EXAM: CT LUMBAR SPINE WITH IV CONTRAST [...] (ABNORMAL) LD (Lactate Dehydrogenase) (02/21/2023 9:27 AM CENTRIFUGAL CHILLER TECHNICIAN) [facility] LD 251(H) 122 - 222 U/L 02/21/2023 11:37 AM CENTRIFUGAL CHILLER TECHNICIAN DT Blood (Blood, Venous) 02/21/2023 9:27 AM CENTRIFUGAL CHILLER TECHNICIAN 02/21/2023 9:56 AM CENTRIFUGAL CHILLER TECHNICIAN Yaquelin Juares M.D. LAB BLOOD NON AD D-ON Performing Organization Address City/[facility]/ZIP Co de Phone Number [facility] [address] [place] [address], [facility] [address] [place] [address] * (ABNORMAL) Haptoglobin (02/21/2023 9:27 AM CENTRIFUGAL CHILLER TECHNICIAN) [facility] Haptoglobin, S 324(H) 30 - 200 mg/dL 02/22/2023 9:18 AM CENTRIFUGAL CHILLER TECHNICIAN [facility] Blood (Blood, Venous) 02/21/2023 9:27 AM CENTRIFUGAL CHILLER TECHNICIAN 02/21/2023 1:16 PM CENTRIFUGAL CHILLER TECHNICIAN Yaquelin Juares M.D. LAB BLOOD ADD-ON Performing Organization Address City/[facility]/ZIP Co de Phone Number [facility] [address] [place] [address] [facility] [address] [place] [address] * Bilirubin, Direct (02/21/2023 9:27 AM CENTRIFUGAL CHILLER TECHNICIAN) Only the most recent of2 resultswithin the time period is included. [facility] Bilirubin, Direct, S <0.2 0.0 - 0.3 mg/dL 02/21/2023 10:34 AM CENTRIFUGAL CHILLER TECHNICIAN [facility] Blood (Blood, Venous) 02/21/2023 9:27 AM CENTRIFUGAL CHILLER TECHNICIAN 02/21/2023 9:43 AM CENTRIFUGAL CHILLER TECHNICIAN Yaquelin Juares M.D. LAB BLOOD ADD-ON [facility] [address] DTL [facility] [address] [place] [address] * Bilirubin, Total (02/21/2023 9:27 AM CENTRIFUGAL CHILLER TECHNICIAN) Bilirubin, Total, P 0.4 0.0 - 1.2 mg/dL 02/21/2023 9:53 AM CENTRIFUGAL CHILLER TECHNICIAN STMA Blood (Blood, Venous) 02/21/2023 9:27 AM CENTRIFUGAL CHILLER TECHNICIAN 02/21/2023 9:39 AM CENTRIFUGAL CHILLER TECHNICIAN Yaquelin Juares M.D. LAB BLOOD ADD-ON Performing Organization Address City/[facility]/ZIP Co de Phone Number [facility] [address] STMA [facility] 200 [place] [address] * DX Lumbar Spine 2-3 Views (02/20/2023 6:25 PM CENTRIFUGAL CHILLER TECHNICIAN) Anatomical Region Laterality Modality Lumbar Spine, Musculoskeleta l RST LOS, Neuroradiology ARZ LOS, Muskuloskeletal FLA LOS N/A Digital Radiography 02/20/2023 6:27 PM CENTRIFUGAL CHILLER TECHNICIAN Impressions 02/20/2023 6:34 PM CENTRIFUGAL CHILLER TECHNICIAN Evaluation of the lateral views is significantly limited by patient positioning and consequent overlap of osseous structures. Within these limitations, no obvious acute fractures or traumatic malalignment is identified. There is moderate lumbar spondylosis characterized by facet arthropathy and hypertrophic degenerative changes of the endplates. Leftward convex lumbar curvature. Narrative 02/20/2023 6:34 PM CENTRIFUGAL CHILLER TECHNICIAN EXAM: ??DX LUMBAR SPINE 2-3 VIEWS Procedure [...] the endplates. Leftward convex lumbar curvature. Yaquelin Juares M.D. IMG DIAGNOSTIC I MAGING PROCEDURES * Influenza A, B, RSV, PCR, Rapid (02/20/2023 4:11 PM CENTRIFUGAL CHILLER TECHNICIAN) Influenza A, PCR, Rapid, V Negative Negative 02/20/2023 4:47 PM CENTRIFUGAL CHILLER TECHNICIAN STMA Influenza B, PCR, Rapid, V Negative Negative 02/20/2023 4:47 PM CENTRIFUGAL CHILLER TECHNICIAN STMA Resp Synctial Virus, PCR, Rapid Negative Negative 02/20/2023 4:47 PM CENTRIFUGAL CHILLER TECHNICIAN STMA Specimen Source Swab, Nasopharynx 02/20/2023 4:47 PM CENTRIFUGAL CHILLER TECHNICIAN STMA Swab (Nasopharynx) 02/20/2023 4:11 PM CENTRIFUGAL CHILLER TECHNICIAN 02/20/2023 4:15 PM CENTRIFUGAL CHILLER TECHNICIAN Montserrat Gilbert M.D. LAB MICROBIOLOGY - GENERAL ORDERABLES [facility] 200 [place] [address], [facility] 200 [place] [address] * MR Lumbar Spine without IV Contrast (02/20/2023 10:42 AM CENTRIFUGAL CHILLER TECHNICIAN) Only the most recent of2 resultswithin the time period is included. Anatomical Region Laterality Modality Lumbar Spine, Neuroradiology RST LOS, Neuroradiology ARZ LOS, Neuroradiology FLA LOS N/A Magnetic Resonance 02/20/2023 11:0 7 AM CENTRIFUGAL CHILLER TECHNICIAN Impressions 02/20/2023 12:12 PM CENTRIFUGAL CHILLER TECHNICIAN 1. Again demonstrated is a large right [...] bilaterally at L5-S1. Narrative 02/20/2023 12:12 PM CENTRIFUGAL CHILLER TECHNICIAN EXAM: MR LUMBAR SPINE WITHOUT IV CONTRAST [...] overlying the lumbar spine. Ligamentum flavum hypertrophy [id number] level penetrating to at least mild/moderate canal [...] Dada Simms M.D. IMG MRI PROCEDURES * [facility] Internal Medicine Image Exam (02/20/2023 6:38 AM MST) 02/20/2023 7:36 AM MST Narrative IIMS - 02/20/2023 6:38 AM [facility] This order has been created and auto-finalized to support the import of images acquired without order. The clinical documentation to support these images can be found on the encounter that produced images. Provider Not In System IMG NON RAD IMAGI NG PROCEDURES Performing Organization Address City/[facility]/ZIP Co de Phone Number [facility] NA * Dipstick, Urine (02/20/2023 6:05 AM CENTRIFUGAL CHILLER TECHNICIAN) Only the most recent of5 resultswithin the time period is included. Hemoglobin, QL, U Negative Negative 02/20/2023 7:37 AM CENTRIFUGAL CHILLER TECHNICIAN DTL Leukocyte Esterase, U Negative Negative 02/20/2023 7:37 AM CENTRIFUGAL CHILLER TECHNICIAN DTL Nitrite, U Negative Negative 02/20/2023 7:37 AM CENTRIFUGAL CHILLER TECHNICIAN DTL Ketone, U Negative Negative mg/dL 02/20/2023 7:37 AM CENTRIFUGAL CHILLER TECHNICIAN DTL Glucose, U Negative Negative mg/dL 02/20/2023 7:37 AM CENTRIFUGAL CHILLER TECHNICIAN DTL Urine 02/20/2023 6:05 AM CENTRIFUGAL CHILLER TECHNICIAN 02/20/2023 6:39 AM CENTRIFUGAL CHILLER TECHNICIAN Peter Alva M.D., M.S. LAB URINE ORD ERABLES [facility] [address] [place] [address], [facility] DTL [facility] [address] [place] [address] * (ABNORMAL) Microscopic Manual (02/20/2023 6:05 AM CENTRIFUGAL CHILLER TECHNICIAN) Only the most recent of6 resultswithin the time period is included. Microscopy Abnormal 02/20/2023 7:55 AM CENTRIFUGAL CHILLER TECHNICIAN DTL RBC <3 <3 /hpf 02/20/2023 7:55 AM CENTRIFUGAL CHILLER TECHNICIAN DTL Casts, Hyaline Occas /lpf 02/20/2023 7:55 AM CENTRIFUGAL CHILLER TECHNICIAN DTL Casts, Granular Occas(A) /lpf 7:55 AM CENTRIFUGAL CHILLER TECHNICIAN DTL Urine 02/20/2023 6:05 AM CENTRIFUGAL CHILLER TECHNICIAN 02/20/2023 7:37 AM CENTRIFUGAL CHILLER TECHNICIAN Peter Alva M.D., M.S. LAB URINE ORD ERABLES Performing Organization Address City/[facility]/ZIP Co de Phone Number [facility] 200 [place] [address] * pH, Urine (02/20/2023 6:05 AM CENTRIFUGAL CHILLER TECHNICIAN) Only the most recent of3 resultswithin the time period is included. pH, U 5.4 4.5 - 8.0 02/20/2023 7:0 9 AM CENTRIFUGAL CHILLER TECHNICIAN DT Urine 02/20/2023 6:05 AM CENTRIFUGAL CHILLER TECHNICIAN 02/20/2023 6:39 AM CENTRIFUGAL CHILLER TECHNICIAN Peter Alva M.D., M.S. LAB URINE ORD ERABLES [facility] 200 [place] [address], [place] [address] * Osmolality, Urine (02/20/2023 6:05 AM CENTRIFUGAL CHILLER TECHNICIAN) Only the most recent of3 resultswithin the time period is included. Osmolality, U 726 150 - 1150 mOsm/kg 02/20/2023 7:09 AM CENTRIFUGAL CHILLER TECHNICIAN DTL Urine 02/20/2023 6:05 AM CENTRIFUGAL CHILLER TECHNICIAN 02/20/2023 6:39 AM CENTRIFUGAL CHILLER TECHNICIAN Peter Alva M.D., M.S. LAB URINE ORD ERABLES [facility] [address] 200 [place] [address] * S-TSH (Thyroid-Stimulating Hormone - Sensitive) (02/20/2023 2:34 AM CENTRIFUGAL CHILLER TECHNICIAN) TSH, Sensitive 0.9 0.3 - 4.2 mIU/L 02/20/2023 4:20 AM CENTRIFUGAL CHILLER TECHNICIAN DTL Blood (Blood, Venous) 02/20/2023 2:34 AM CENTRIFUGAL CHILLER TECHNICIAN 02/20/2023 2:54 AM CENTRIFUGAL CHILLER TECHNICIAN Peter Alva M.D., M.S. LAB BLOOD ADD -ON Performing Organization Address City/[facility]/ZIP Co de Phone Number [facility] 200 [place], [place] [address] [place] [address] 200 [place] [address] * (ABNORMAL) Glucose, Fasting (02/18/2023 7:34 AM CDT) Only the most recent of2 resultswithin the time period is included. Glucose, P 154(H) 70 - 100 mg/dL 02/18/2023 8:32 AM CDT DTL Last Intake 13 hr 02/18/2023 8:18 AM CDT DTL Blood (Blood, Venous) 02/18/2023 7:34 AM CDT 02/18/2023 8:18 AM CDT Dave Mckeon M.D. LAB BLOOD NON ADD -ON Performing Organization Address City/[facility]/ZIP Co de Phone Number [facility] 200 [place], [place] [phone] [place] [address] 200 [place] [phone] * (ABNORMAL) Ferritin (02/18/2023 7:34 AM CDT) Only the most recent of2 resultswithin the time period is included. Pathologist [facility] Ferritin, S 21(L) 31 - 409 mcg/L 02/18/2023 8:48 AM CDT DT Blood (Blood, Venous) 02/18/2023 7:34 AM CDT 02/18/2023 8:18 AM CDT Peter Greenberg M.D. LAB BLOOD ADD-ON Performing Organization Address City/[facility]/ZIP Co de Phone Number [facility] 200 [place] [address], [address] [address] * CEA (Carcinoembryonic Antigen) (02/18/2023 7:33 AM CDT) Pathologist [facility] Carcinoembryonic Ag (CEA), S 2.9 ng/mL 02/18/2023 2:53 PM CDT [facility] Comment: ----REFERENCE VALUE---- <=3.0 (Non-smokers) Some smokers may have elevated CEA, usually <5.0. ----ADDITIONAL INFORMATION---- The testing method is an immunoenzymatic assay manufactured by [employer] and performed on the [employer] DxI 800. ? Values obtained with different assay methods or kits may be different and cannot be used interchangeably. ? Test results cannot be interpreted as absolute evidence for the presence or absence of malignant disease. Blood (Blood, Venous) 02/18/2023 7:33 AM CDT 02/18/2023 1:02 PM CDT Dave Mckeon M.D. LAB BLOOD ADD-ON [facility] [address] [place] [address] [facility] [address] [place] [address] * Interpretation of Outside CT Abdomen and [...] disease in the abdomen or pelvis. Dave GROSS CT PROCEDURES * Interpretation of Outside CT [...] prior outside abdominal CT from 04/15/2021 and [facility] chest radiograph from 01/05/2022. FINDINGS: Several scattered small indeterminate solid noncalcified pulmonary nodules which were either not included in the [id number] were not clearly visible on prior abdominal [...] prior outside abdominal CT from 04/15/2021 and [facility] chest radiograph from01/05/2022. FINDINGS: Several scattered small indeterminate solid noncalcified pulmonary noduleswhich were either not included in the [id number] were not clearly visible on prior abdominalCTs. [...] is reported separately, if requestedfor interpretation. Dave Mckeon M.D. [facility] CT PROCEDURES * Pathology Review of Outside Material (01/31/2023 2:45 PM CDT) 02/24/2023 4:03 PM CENTRIFUGAL CHILLER TECHNICIAN DTL Participated in the Interpretation Candi Cantu M.D.-Pathology Fellow 02/24/2023 4:03 PM CENTRIFUGAL CHILLER TECHNICIAN DTL Report electronically signed by Bridgette Don M.D. I verify that I have examined all relevant slides/materials for the specimen(s) and rendered or confirmed the diagnosis. 02/24/2023 4:03 PM CENTRIFUGAL CHILLER TECHNICIAN DTL Material Received A. [id number]: Colon, ascending, transverse, descending, sigmoid ? 23 stained slides 02/24/2023 4:03 PM CENTRIFUGAL CHILLER TECHNICIAN DTL Interpretation FINAL DIAGNOSIS Colon, biopsy ([id number]; 01/31/2023): ? A. ??Colon, proximal, ascending, mass, biopsy: Invasive moderately differentiated adenocarcinoma. Immunohistochemis try for mismatch repair proteins was performed at an outside institution and reviewed at [facility]. ??The neoplastic cells revealed the following: MLH1: [...] made via digital imaging. 02/24/2023 4:03 PM CENTRIFUGAL CHILLER TECHNICIAN DTL Varies 01/31/2023 2:45 PM CDT 02/11/2023 10:24 AM CDT Dave Mckeon M.D. LAB SURG PATH ORD ERABLES Performing Organization Address City/[facility]/ZIP Co de Phone Number [facility] [address] [place] [address], [facility] DTL [address] [place] [address] * CT cervical spine wo con-Outside CT Neuro (12/31/2022 9:35 PM CDT) Only the most recent of4 resultswithin the time period is included. 12/31/2022 9:29 PM CDT Narrative [facility] - 01/01/2023 12:04 AM CDT This order has been created and auto-finalized to support the import of outside images. If available, original interpretation can be found on the Media Tab in Chart Review, in Document Viewer, or as an image in [employer]. If a re-interpretation or overread is required please follow defined workflow. ?? Provider Not In System IMG CT PROCEDURES Performing Organization Address City/[facility]/ZIP Co de Phone Number [facility] NA * XR INJ EPIDURAL INTERLAMINAR LUMBAR-Outside XA (11/30/2022 9:25 AM CDT) Narrative IIMS - 12/01/2022 2:59 [...] RAD IMAGI NG PROCEDURES Performing Organization Address [facility]/ZIP Co de Phone Number [facility] NA * MR SPINE LUMBAR WO-Outside MR Neuro (11/29/2022 4:30 AM CDT) Narrative [facility] - 12/01/2022 2:59 PM CDT This order [...] IMG MRI PROCEDURE S Performing Organization Address [facility] de Phone Number [facility] NA * (ABNORMAL) Dipstick, POCT, Urine (11/27/2022 3:28 AM CDT) Only the most recent of2 resultswithin the time period is included. Glucose, POCT, U 100(A) Negative mg/dL 11/27/2022 3:30 AM CDT PC[facility] Ketone, POCT, U Negative Negative mg/dL 11/27/2022 3:30 AM CDT [facility] Specific [place], POCT, U 1.020 1.005 - 1.030 11/27/2022 [...] POCT ORDERABLES - DEVICE Performing Organization Address City/[facility]/ZIP Co de Phone Number POC RST [facility] [address] [place] [address], [facility] PCED [facility] POC [address] [place] [address] * Microscopic Automated (11/27/2022 3:23 AM CDT) Only the most recent of3 resultswithin the time period is included. Microscopy Normal 11/27/2022 4:2 8 AM CDT DTL Urine 11/27/2022 3:23 AM CDT 11/27/2022 4:06 AM CDT Merlin Moffett M.D. LAB URINE ORDERABLES Performing Organization Address [facility] Co de Phone Number [facility] 200 [place] [address], [facility] [address] [place] [address] * (ABNORMAL) Creatinine with Estimated GFR (11/01/2022 [...] CDT William Briggs M.D. LAB BLOOD ADD-ON [facility] [address] [place] [address], [facility] CNFL [facility] in [address] [address] * Phosphorus Inorganic (10/12/2022 6:53 AM CDT) Only the most recent of4 resultswithin the time period is included. Phosphorus (Inorganic), S 3.7 2.5 - 4.5 mg/dL 10/12/2022 8:07 AM CDT DTL Blood (Blood, Venous) 10/12/2022 6:53 AM CDT 10/12/2022 7:48 AM CDT Kandace Weaver APRN C.N.PAjit, M.S.N. LEEROY Gómez BLOOD ADD-ON [facility] 200 [place] [address], [facility] [address] [place] [address] * (ABNORMAL) Renal Function Panel (10/11/2022 2:11 [...] LA B BLOOD ADD-ON Performing Organization Address [facility] Co de Phone Number [address] [place] [address] * (ABNORMAL) HemoQuant, Feces (10/11/2022 1:21 PM CDT) Hemoglobin, Fecal 4.6(H) <=2 mg Hb/g 10/12/2022 1:51 PM CDT DTL Comment: ----ADDITIONAL INFORMATION---- This test was developed and its performance characteristics determined by [facility] in a manner consistent with CLIA requirements. This test has not been cleared or approved by the U.S. Food and Drug Administration. Stool (Stool) 10/11/2022 1:2 1 PM CDT 10/11/2022 2:05 PM CDT Maria Elena Morris M.D., Ph.D. LAB BODY FL UIDS AND STOOLS ORDERABLES Performing Organization Address [facility]/ZIP Co de Phone Number [facility] [address] [place] [address], [facility] DTL 200 [facility] 200 [place] [address] * US Kidneys Bilateral with Bladder (10/11/2022 8:30 AM CDT) Anatomical Region Laterality Modality Abdomen, Renal, Ultrasound R ST LOS, Ultrasound ARZ LOS, Ultrasound FLA LOS Bilateral Ultrasound 10/11/2022 8:46 AM CDT Impressions 10/11/2022 8:56 AM CDT Atrophic [place] kidneys bilaterally. No hydronephrosis. Narrative 10/11/2022 8:56 [...] lower pole cyst. Bladder: Normal. IMPRESSION: Atrophic [place] kidneys bilaterally. No hydronephrosis. Kandace Weaver APRN, C.N.P., M.S.N. IM G US PROCEDURES * Methylmalonic Acid (MMA), Quantitative, Serum (10/08/2022 7:05 AM CDT) Methylmalonic Acid, QN, S 0.14 <=0.40 nmol/mL 10/12/2022 10:48 AM CDT DTL Comment: No cellular B-12 deficiency. ----ADDITIONAL INFORMATION---- This test was developed and its performance characteristics determined by [facility] in a manner consistent with CLIA requirements. This test has not been cleared or approved by the U.S. Food and Drug Administration. Blood 10/08/2022 7:05 AM CDT 10/08/2022 12:08 PM CDT Mady Melgoza P.A.-C. LAB BLOOD NON ADD-ON Performing Organization Address City/[facility] Co de Phone Number [facility] [address] [place] [address], [facility] DTL [address] [facility] [address] [place] [address] * Pernicious Anemia [place] (10/08/2022 7:05 AM CDT) Pathologist [facility] Vitamin B12 Assay, S 362 180 - 914 ng/L 10/08/2022 12:08 PM CDT [facility] Comment:B-12 <400; MMA test was performed. Blood (Blood, Venous) 10/08/2022 7:05 AM CDT 10/08/2022 10:03 AM CDT Mady Melgoza P.A.-C. LAB BLOOD NON ADD-ON Performing Organization Address City/[facility] Co de Phone Number [facility] [address] [place] [address] [facility] [address] [place] [address] * Reticulocytes (10/08/2022 7:05 AM CDT) Pathologist [facility] Reticulocytes, B 2.14 0.60 - 2.71 % 10/08/2022 8:00 AM CDT DTL Absolute Reticulocyte 84.3 30.4 - 110.9 x10(9)/L 10/08/2022 8:00 AM CDT DTL Blood (Blood, Venous) 10/08/2022 7:05 AM CDT 10/08/2022 7:50 AM CDT Mady Melgoza P.A.-C. LAB BLOOD ADD- ON Performing Organization Address [facility]/ZIP Co de Phone Number [facility] [address] [place] [address], [facility] 200 [place] [address] * Folate (10/08/2022 7:05 AM CDT) Folate, S 11.7 >=4.0 mcg/L 10/08/2022 10:55 AM CDT DTL Blood (Blood, Venous) 10/08/2022 7:05 AM CDT 10/08/2022 8:06 AM CDT Mady Melgoza P.A.-C. LAB BLOOD ADD- ON Performing Organization Address [facility] Co de Phone Number [facility] [address] [place] [address], [facility] [address] [place] [address] * Venous Lower Extremity - Hemodynamic Study (04/05/2022 8:33 AM CENTRIFUGAL CHILLER TECHNICIAN) Anatomical Region Laterality Modality Other 04/05/2022 7:30 AM CENTRIFUGAL CHILLER TECHNICIAN Narrative 04/05/2022 7:30 AM CENTRIFUGAL CHILLER TECHNICIAN Right: VENOUS PLETHYSMOGRAPHY: ?Not done due to [...] prior studies. Claribel Alan M.D., Ph.D. CV [facility] ULAR PROCEDURES * LOWER EXTREMITY ARTERIAL - STANDARD PROTOCOL (04/05/2022 8:27 AM CENTRIFUGAL CHILLER TECHNICIAN) Anatomical Region Laterality Modality Other 04/05/2022 7:42 AM CENTRIFUGAL CHILLER TECHNICIAN Narrative 04/05/2022 7:42 AM CENTRIFUGAL CHILLER TECHNICIAN Right: Doppler Waveforms: ? Normal at all [...] calculated due to non-compressible vessel(KENISHA > 1.4). KENIHSA (DP)- Index not calculated due to non-compressiblevessel [...] prior studies. Claribel Alan M.D., Ph.D. CV [facility] ULAR PROCEDURES * ECG AMBULATORY REAL TIME CARDIAC MONITORING (01/27/2022 7:31 AM CDT) Min Heart Rate 52 bpm INFOBIONIC MOME Max Heart Rate 113 bpm INFOBIONIC MOME Mean Heart Rate 70 bpm INFOBIONIC MOME VE Total Beats 22,325 count INFOBIONIC MOME VE Percent Beats 1.65% percent INFOBIONIC MOME SVE Total Beats 35628 count INFOBIONIC MOME SVE Percent Beats 2.27% percent INFOBIONIC MOME Holter Pauses 0 count INFOBIONIC MOME AF Count 0 count INFOBIONIC MOME AF Duration 0 sec duration INFOBIONIC MOME AF Logan 0% percent INFOBIONIC MOME VT Runs 0 [...] 98 BPM. There were single PACs seen. Tinning Equipment Tender: SAIGE Barron/SAIGE Tenorio Procedure Note Balaji Hawkins [...] to 98 BPM. There were singlePACs seen. Tinning Equipment Tender: Norman Barron CRAT Kristian Dasilva M.D. CV CARDI[facility] SERVICES PROCEDURES CHELSEY ULLOA NA * HOLTER MONITOR - IN [employer] IN[employer] (01/05/2022 11:52 AM CDT) Min Heart Rate 61 bpm INFOB IONIC MOME Max Heart Rate 123 bpm INFOB IONIC MOME Mean Heart Rate 82 bpm INFOBIONIC MOME VE Total Beats 218 count INFOB IONIC MOME VE Percent Beats less than 1 percent INFOBIONIC MOME SVE Total Beats 18646 count INFOBIONIC MOME SVE Percent Beats 19 percent INFOBIONIC MOME AF Count 0 count INFOBIONIC MOME AF Duration 0 duration INFOBION IC MOME AF Logan 0 percent INFOBIONIC MOME Symptom Count 2 [...] 117 bpm and PACs were seen singly. Tinning Equipment Tender: Kvng Burt/Azeem Fox Procedure Note Adriano Reed [...] 117 bpm and PACs were seen singly. Tinning Equipment Tender: Kvng Burt/Azeem Fox Mickey Galvan M.D. CV [...] or pleural effusions. Degenerativechanges of the skeleton. Authorizing Provider Result Charlene Galvan M.D. IMG DIAGNOSTIC I MAGING PROCEDURES * Thyroperoxidase (TPO) Antibodies, Serum (01/04/2022 11:12 AM CDT) Thyroperoxidase Ab, S 3.3 <9.0 IU/mL 01/04/2022 1:42 PM CDT DTL Blood 01/04/2022 11:1 2 AM CDT 01/04/2022 11:58 AM CDT Mickey Galvan M.D. LAB BLOOD NON AD D-ON Performing Organization Address City/[facility]/ZIP Co de Phone Number [facility] [address] [place] [address] * T4 (Thyroxine), Free, Serum (01/04/2022 11:12 AM CDT) T4 (Thyroxine), Free, S 1.2 0.9 - 1.7 ng/dL 01/04/2022 12:46 PM CDT DTL Blood 01/04/2022 11:1 2 AM CDT 01/04/2022 11:58 AM CDT Narrative Authorizing Provider Result Charlene Galvan M.D. LAB BLOOD ADD-ON [facility] [address] [place] [address] * (ABNORMAL) Thyroid Function [place] (01/04/2022 11:12 AM CDT) TSH, Sensitive 4.5(H) 0.3 - 4.2 mIU/L 01/04/2022 12:26 PM CDT DTL Blood (Blood, Venous) 01/04/2022 11:12 AM CDT 01/04/2022 11:58 AM CDT Mickey Galvan M.D. LAB BLOOD ADD-ON [facility] [address] [place] [address], [facility] DTL [facility] [address] [place] [address] * (TTE) 2D ECHO DOPPLER COLOR AND [...] No ??pericardial effusion. There are no previous [facility] echocardiograms available for comparison. For the complete [...] location. No pericardial effusion. There are no [facility] echocardiograms available for comparison. For the complete report, see the Order-Level Documents. Mickey Galvan M.D. CV ECHO PROCEDUR ES * FL CYSTOURETHROSCOPY (03/03/2021 2:05 PM CENTRIFUGAL CHILLER TECHNICIAN) Narrative Mickey Ledezma APRN, C.N.P. - 03/03/2021 2:05 PM CENTRIFUGAL CHILLER TECHNICIAN Mickey Ledezma APRN, C.N.P. ? 03/03/2021 ??2:07 PM URO Cystoscopy (general) Date/Time: 03/03/2021 2:05 PM Performed by: Mickey Ledezma APRN, C.N.P. Authorized by: Mickey Galvan M.D. Care team members present 1. Mickey Ledezma APRN, C.N.P. 2. Christina Johnson ?? Negative cystoscopy Additional procedures performed: cystoscopy [...] ?? Complications: no apparent complications ?? Mickey B Galvan M.D. UROLOGY ORDERABL ES * Osmolality, Urine (03/03/2021 11:43 AM CENTRIFUGAL CHILLER TECHNICIAN) Only the most recent of2 resultswithin the time period is included. Osmolality, U 761 150 - 1150 mOsm/kg 03/03/2021 4:18 PM CENTRIFUGAL CHILLER TECHNICIAN DTL Urine 03/03/2021 11:4 3 AM CENTRIFUGAL CHILLER TECHNICIAN 03/03/2021 2:38 PM CENTRIFUGAL CHILLER TECHNICIAN Mickey Galvan M.D. LAB URINE ORDERA BLEKristie Performing Organization Address City/[facility]/ZIP Co de Phone Number [facility] [address] [place] [address] * pH, Random, Urine (03/03/2021 11:43 AM CENTRIFUGAL CHILLER TECHNICIAN) Only the most recent of2 resultswithin the time period is included. pH, Random, U 6.4 4.5 - 8.0 03/03/2021 4:18 PM CENTRIFUGAL CHILLER TECHNICIAN DTL Urine 03/03/2021 11:4 3 AM CENTRIFUGAL CHILLER TECHNICIAN 03/03/2021 2:38 PM CENTRIFUGAL CHILLER TECHNICIAN Mickey Galvan M.D. LAB URINE ORDERA ANNALEE Performing Organization Address City/[facility]/ZIP Co de Phone Number [facility] [address] [place] [address], [facility] [place], [place] [id number] * Gram Stain, Urine (03/03/2021 11:43 AM CENTRIFUGAL CHILLER TECHNICIAN) Only the most recent of3 resultswithin the time period is included. Source Urine, Urine, Midstream 03/03/2021 2:37 PM CENTRIFUGAL CHILLER TECHNICIAN DTL Gram's Stain, Screen, U CANCELED 03/03/2021 2:38 PM CENTRIFUGAL CHILLER TECHNICIAN DTL Comment: Changed to a more appropriate test due to specimen/source received. Result canceled by the ancillary. Urine (Urine, Midstream) 03/03/2021 11:43 AM CENTRIFUGAL CHILLER TECHNICIAN 03/03/2021 2:37 PM CENTRIFUGAL CHILLER TECHNICIAN Mickey Galvan M.D. LAB URINE ORDERA [facility] [address] [place] [address], [place] DTL [facility] [address] [place] [address] * URO Uroflow (03/03/2021 10:45 AM CENTRIFUGAL CHILLER TECHNICIAN) Narrative Steffen Pringle M.D. - 03/03/2021 10:45 AM CENTRIFUGAL CHILLER TECHNICIAN Steffen Pringle M.D. ? 03/03/2021 12:23 PM [...] PM CDT 12/11/2020 2:24 PM CDT Mickey Galvan M.D. LAB URINE ORDERHugo MANTILLA [facility] [address] [place] [address], [place] DTL [facility] [address] [place] [address] * FL CYSTHRSCPY RMVL FB/STENT SMPL (05/07/2019 10:30 AM CENTRIFUGAL CHILLER TECHNICIAN) Narrative Keith Lovelace APRN, C.N.P., M.S.N. - 05/07/2019 10:30 AM CENTRIFUGAL CHILLER TECHNICIAN Keith Lovelace APRN, C.N.P., M.S.N. ? 05/07/2019 11:08 AM Cysto [...] Quant without IV Contrast (04/20/2019 1:00 PM CENTRIFUGAL CHILLER TECHNICIAN) Anatomical Region Laterality Modality Abdomen, Pelvis, Abdominal R ST LOS, Abdominal ARZ LOS, Abdominal FLA LOS N/A Computed Tomograp hy, Computed Tomography 04/20/2019 1:02 PM CENTRIFUGAL CHILLER TECHNICIAN Impressions 04/20/2019 1:13 PM CENTRIFUGAL CHILLER TECHNICIAN Interval placement of a right ureteral stent with removal of the obstructing right UVJ stone. Several right renal calculi persist. Tiny nonobstructing left renal calculi. Narrative 04/20/2019 1:13 PM CENTRIFUGAL CHILLER TECHNICIAN EXAM: ??CT ABDOMEN PELVIS KIDNEY STONE QUANT [...] Right kidney (A/V) 206/226 Left kidney (A/V) .7 Cholelithiasis. Marked atrophy of the pancreatic parenchyma [...] Less Than 1 Hour (04/04/2019 1:34 PM CENTRIFUGAL CHILLER TECHNICIAN) Only the most recent of2 resultswithin the time period is included. Narrative 152 [facility] LOS RST - 04/04/2019 1:34 PM CENTRIFUGAL CHILLER TECHNICIAN This exam does not require a radiologist review or interpretation. Please refer to the patient's medical record on this date for clinical details. James Mina M.D. IMG FLUOROSCOPY PROC EDURES 152 [facility] LOS RST * Kidney Stone Analysis (04/04/2019 1:26 PM CENTRIFUGAL CHILLER TECHNICIAN) Only the most recent of3 resultswithin the time period is included. Source Stone, Ureter, Right 04/05/2019 9:56 PM CENTRIFUGAL CHILLER TECHNICIAN [facility] Stone Interpretation 100% Uric acid 04/05/2019 9:56 PM CENTRIFUGAL CHILLER TECHNICIAN [facility] Stone (Ureter, Right) 04/04/2019 1:26 PM CENTRIFUGAL CHILLER TECHNICIAN James Mina M.D. LAB MISC ORDERABLES [facility] [address] [place] [address] [facility] Dept. of Laboratory Medicine and Pathology [address] [place] [address] * LDA ANE ENDOTRACHEAL AIRWAY (04/04/2019 11:49 AM CENTRIFUGAL CHILLER TECHNICIAN) Narrative Deyvi Gordon R.N. - 04/04/2019 11:49 AM CENTRIFUGAL CHILLER TECHNICIAN Deyvi Gordon R.N. ? 04/04/2019 11:51 AM [...] ETT location: oral VL device: glide scope [place] scope blade size: 4 Adult tube size: [...] Non-Radiology Image-Urology Image Exam (03/12/2019 1:02 PM CENTRIFUGAL CHILLER TECHNICIAN) Only the most recent of3 resultswithin the time period is included. 03/12/2019 1:21 PM CENTRIFUGAL CHILLER TECHNICIAN Narrative IIMS - 03/12/2019 1:02 PM CENTRIFUGAL CHILLER TECHNICIAN This order has been created and auto-finalized to support the import of images acquired without order. The clinical documentation to support these images can be found on the encounter that produced images. Provider Not In System IMG NON RAD IMAGI NG PROCEDURES Performing Organization Address [facility] Co de Phone Number IIMS NA * LDA ANE ENDOTRACHEAL AIRWAY (03/12/2019 12:27 PM CENTRIFUGAL CHILLER TECHNICIAN) Narrative Dashawn Iqbal APRN, CRNA D.N.P. - 03/12/2019 12:27 PM CENTRIFUGAL CHILLER TECHNICIAN Dashawn Iqbal APRN, CRNA D.N.P. ? 03/12/2019 12:28 PM Airway Date/Time: [...] ETT location: oral VL device: glide scope [place] scope blade size: 4 Adult tube size: [...] event: no complications Scooby Haas M.D. ANESTHESIA ORDE MANAVLES * Fungal Culture, Routine (03/12/2019 12:25 PM CENTRIFUGAL CHILLER TECHNICIAN) Fungal Culture, Routine No growth after 24 days of incubation. 04/06/2019 1:01 AM CENTRIFUGAL CHILLER TECHNICIAN DTL Urine (Urine, Cystoscopy) 03/12/2019 12:25 PM CENTRIFUGAL CHILLER TECHNICIAN Ashkan Villanueva M.D. LAB MICROBIOLOGY - G ENERAL ORDERABLES [facility] [address] [place] [address], [facility] DTL [facility] [address] [place] [address] * Ketones, Qual, Urine (03/12/2019 4:36 AM CENTRIFUGAL CHILLER TECHNICIAN) Only the most recent of3 resultswithin the time period is included. Ketones, QL(U) Negative Negative mg/dL 03/12/2019 6:26 AM CENTRIFUGAL CHILLER TECHNICIAN ELOY Urine 03/12/2019 4:36 AM CENTRIFUGAL CHILLER TECHNICIAN 03/12/2019 5:44 AM CENTRIFUGAL CHILLER TECHNICIAN Sonja Huff M.D. LAB URINE ORDERAB LES [facility] [address] [place] [address], [facility] ELOY [facility] [address] [place] [address] * CT Abdomen Pelvis without IV Contrast [...] appear to have calcific density on CT slag dumper images suggesting that the nidus of the [...] appear to have calcific density on CT slag dumper images suggesting thatthe nidus of the stones [...] multiple calculi in the right kidney. Mickey GROSS CT PROCEDURE S * (ABNORMAL) Supersaturation Profile, 24 Hour, Urine (07/26/2018 9:00 AM CDT) Sodium, 24 HR, U 116 41 - 227 mmol/24 h 9 1:36 PM CDT [facility] Potassium, 24 HR, U 35 17 - 77 mmol/24 h 9 1:36 PM CDT [facility] Calcium, 24 HR, U 37 <250 mg/24 h 9 1:36 PM CDT [facility] Comment: ----ADDITIONAL INFORMATION---- This test was developed and its performance characteristics determined by [facility] in a manner consistent with CLIA requirements. This test has not been cleared or approved by the U.S. Food and Drug Administration. Magnesium, 24 HR, U 46(L) 51 - 269 mg/24 h 9 1:36 PM CDT [facility] Comment: ----ADDITIONAL INFORMATION---- This test has been modified from the oracle adf developer's instructions. Its performance characteristics were determined by [facility] in a manner consistent with CLIA requirements. This test has not been cleared or approved by the U.S. Food and Drug Administration. Chloride, 24 HR, U 110 40 - 224 mmol/24 h 9 1:36 PM CDT [facility] Phosphorus, 24 HR, U 742 <1100 mg/24 h 9 1:36 PM CDT [facility] Sulfate Urine 11 7 - 47 mmol/24 h 9 1:07 AM CDT [facility] Comment: ----ADDITIONAL INFORMATION---- This test was developed and its performance characteristics determined by [facility] in a manner consistent with CLIA requirements. This test has not been cleared or approved by the U.S. Food and Drug Administration. Citrate Excretion, U 107 mg/24 h 9 1:36 PM CDT [facility] Comment: ----REFERENCE VALUE---- Reference values have not been established for patients who are >60 years of age. ----ADDITIONAL INFORMATION---- This test was developed and its performance characteristics determined by [facility] in a manner consistent with CLIA requirements. This test has not been cleared or approved by the U.S. Food and Drug Administration. Oxalate, U (mmol/24 h) 0.34 0.11 - 0.46 mmol/24 h 9 4:02 PM CDT [facility] Comment: ----ADDITIONAL INFORMATION---- This test was developed and its performance characteristics determined by [facility] in a manner consistent with CLIA requirements. This test has not been cleared or approved by the U.S. Food and Drug Administration. Oxalate, mg/24 h 29.9 9.7 - 40.5 mg/24 h 9 4:02 PM CDT [facility] pH, 24 HR, U 5.3 4.5 - 8.0 2:06 PM CDT [facility] Comment: ----ADDITIONAL INFORMATION---- This test was developed and its performance characteristics determined by [facility] in a manner consistent with CLIA requirements. This test has not been cleared or approved by the U.S. Food and Drug Administration. Uric Acid, 24 HR, U 510 <750 (Diet-depen dent) mg/24 h 9 1:36 PM CDT [facility] Comment: ----ADDITIONAL INFORMATION---- This test has been modified from the oracle adf developer's instructions. Its performance characteristics were determined by [facility] in a manner consistent with CLIA requirements. This test has not been cleared or approved by the U.S. Food and Drug Administration. Creatinine, 24 HR, U 1641 mg/24 h 9 1:36 PM CDT [facility] Comment: ----REFERENCE VALUE---- The expected creatinine excretion per 24 hrs for males: 955-2936 mg/24 hrs or 13-29 mg/kg/24 hrs. Note: To convert to mg/kg of body weight/24 hrs, divide the mg/24 h result by the weight in kg. Osmolality, 24 HR, U 685 150 - 1150 mOsm/kg 2:06 PM CDT [facility] Comment: ----ADDITIONAL INFORMATION---- This test was developed and its performance characteristics determined by [facility] in a manner consistent with CLIA requirements. This test has not been cleared or approved by the U.S. Food and Drug Administration. Ammonium, 24 HR, U 31 15 - 56 mmol/24 h 9 2:57 PM CDT [facility] Comment: ----ADDITIONAL INFORMATION---- This test has been modified from the oracle adf developer's instructions. Its performance characteristics were determined by [facility] in a manner consistent with CLIA requirements. This test has not been cleared or approved by the U.S. Food and Drug Administration. Urea Nitrogen, 24 HR, U 7.7 5.0 - 16.0 g/24 h 9 1:36 PM CDT [facility] Protein Catabolic Rate, 24 HR, U 73 56 - 125 g/24 h 1:36 PM CDT [facility] Calcium Oxalate Crystal 1.50 Reference Mean= 1.77 DG 11:16 AM CDT [facility] Brushite Crystal -2.46 Reference Mean= 0.21 DG 11:16 AM CDT [facility] Hydroxyapatite Crystal -0.18 Reference Mean= 3.96 DG 11:16 AM CDT [facility] Uric Acid Crystal 4.78(H) Reference Mean= 1.04 DG 11:16 AM CDT [facility] Sodium Urate Crystal 1.71 Reference Mean= 1.76 DG 11:16 AM CDT [facility] Collection Duration 24 h 11:16 AM CDT [facility] Volume 927 mL 11:16 AM CDT [facility] Interpretation The DG is related to supersaturation. DG is negative for undersaturated solutions, zero for solutions at the solubility product, and positive for saturated solutions. Any value greater than the Reference Mean is considered a risk for the respective crystal type formation. 11:16 AM CDT [facility] Urine (Urine, 24 Hours) 07/26/2018 9:00 AM CDT 07/26/2018 11:00 AM CDT Mickey Galvan M.D. LAB URINE DORIS MANTILLA [facility] [address] [place] [address], [place] * Monoclonal Protein Study, 24 Hour, Urine (07/26/2018 9:00 AM CDT) Total Protein, 24 HR, U 139 <229 mg/24 h 07/27/2018 8:41 AM CDT [facility] Comment: ----ADDITIONAL INFORMATION---- On 10/12/2016 the total protein assay method changed resulting in approximately a 15% increase in protein values. Collection Duration 24 h 07/27/2018 7:40 AM CDT [facility] Urine Volume 927 mL 07/27/2018 7:40 AM CDT [facility] Concentration 15 mg/dL 07/27/2018 8:41 AM CDT [facility] Albumin, % 38 % 07/28/2018 4:16 PM CDT [facility] Comment:53 mg/24 h Alpha 1-Globulin, % 5 % 07/28/2018 4:16 PM CDT [facility] Comment:7 mg/24 h Alpha-2 globulin, % 18 % 07/28/2018 4:16 PM CDT [facility] Comment:25 mg/24 h Beta globulin, % 17 % 07/29/19 19 4:16 PM CDT [facility] Comment:24 mg/24 h Gamma globulin, % 23 % 07/28/2018 4:16 PM T [facility] Comment:32 mg/24 h A/G Ratio 0.60 07/28/2018 4:16 PM T [facility] Impression All fractions present, no apparent M-spike. See Immunofixatio n. 07/28/2018 4:16 PM CDT [facility] Immunofixation, 24 Hr, U No monoclonal protein detected. 08/01/2018 3:04 PM T [facility] Urine (Urine, 24 Hours) 07/26/2018 9:00 AM CDT 07/27/2018 10:55 AM CDT Mickey Galvan M.D. LAB URINE ORDERA BLEKristie [facility] [address] [place] [address] [facility] [address] * 1,25-Dihydroxyvitamin D (07/25/2018 11:21 AM CDT) Pathologist [facility] 1, 25 DIHYDROXYVITAMIN D, S 30 18 - 64 pg/mL 07/27/2018 2:00 PM CDT [facility] Comment: ----ADDITIONAL INFORMATION---- This test was developed and its performance characteristics determined by [facility] in a manner consistent with CLIA requirements. This test has not been cleared or approved by the U.S. Food and Drug Administration. Blood (Blood, Venous) 07/25/2018 11:21 AM CDT 07/26/2018 7:08 AM CDT Mickey Galvan M.D. LAB BLOOD ADD-ON [facility] [address] [place] [address] * 25-Hydroxyvitamin D2 and D3 (07/25/2018 11:21 AM CDT) [facility] 25-Hydroxy D2 <4.0 ng/mL 07/27/2018 2:51 PM CDT [facility] 25-Hydroxy D3 50 ng/mL 07/27/2018 2:51 PM CDT [facility] 25-Hydroxy D Total 50 ng/mL 2018 2:51 PM CDT [facility] Comment: ----REFERENCE VALUE---- 25-HYDROXY D TOTAL (D2+D3) Optimum levels in the healthy population are 20-50, patients with bone disease may benefit from higher levels within this range. ----ADDITIONAL INFORMATION---- This test was developed and its performance characteristics determined by [facility] in a manner consistent with CLIA requirements. This test has not been cleared or approved by the U.S. Food and Drug Administration. Blood (Blood, Venous) 07/25/2018 11:21 AM CDT 07/26/2018 7:49 AM CDT Mickey Galvan M.D. LAB BLOOD ADD-ON [facility] [address] [place] [address] * Uric Acid (07/25/2018 11:21 AM CDT) Only the most recent of2 resultswithin the time period is included. Uric Acid, S 3.9 3.7 - 8.0 mg/dL 07/25/2018 12:23 PM CDT [facility] Blood (Blood, Venous) 07/25/2018 11:21 AM CDT 07/25/2018 11:42 AM CDT Mickey Galvan M.D. LAB BLOOD ADD-ON Performing Organization Address City/[facility]/ZIP Co de Phone Number [facility] [address] * ANESTHESIOLOGY IMAGE EXAM (08/26/2016 10:12 AM CDT) Anatomical Region Laterality Modality Other 08/26/2016 10:1 2 AM CDT Addenda Addendum by Provider, Lyle Tovar on 08/26/2016 10:12 AM CDT ANES^^^MCR Head/Spine [...] Hour, Urine (08/13/2015 10:01 AM CDT) Pathologist [facility] 24 Hour Excretion <9 <30 MG/24 H [facility] Albumin Excretion Rate <6 <20 MCG/MIN [facility] Albumin Concentration <5.0 MG/L [facility] Collection Duration 24 H [facility] Urine Volume 1786 ML [facility] 08/13/2015 10:0 1 AM CDT 08/13/2015 10:01 AM CDT Scooby Cabezas M.D. LAB URINE ORDERABLES Performing Organization Address [facility]/ZIP Co de Phone Number [facility] [address] * Polysomnography (PSG) (07/28/2015 8:14 PM CDT) 07/28/2015 8:14 PM CDT Historical Provider SLEEP CENTER ORDERAB LES Performing Organization Address City/[facility]/ZIP Co de Phone Number [facility] [address] * PUL Home Overnight Oximetry (07/16/2015 9:00 PM CDT) 07/16/2015 9:00 PM CDT Historical Provider PFT ORDERABLES Performing Organization Address [facility] Co de Phone Number [facility] [address] * (ABNORMAL) Lipid Panel (07/16/2015 11:49 AM CDT) Pathologist [facility] Cholesterol, Total 174 SeeComment MG/DL [facility] Comment: ? REFERENCE VALUE ? Desirable: < 200 ? Borderline high: 200 - 239 ? High: > or = 240 ? Triglycerides 163(H) SeeComment MG/DL [facility] Comment: ? REFERENCE VALUE ? Normal: <150 ? Borderline high: 150-199 ? High: 200-499 ? Very high: > or =500 ? Cholesterol, Non-HDL, Calculated 140 SeeComment MG/DL [facility] Comment: ? REFERENCE VALUE ? Desirable: <130 ? Above Desirable: 130-159 ? Borderline high: 160-189 ? High: 190-219 ? Very high: > or =220 ? Cholesterol, HDL, S 34(L) >=40 MG/DL [facility] Calculated LDL 107 SeeComment MG/DL [facility] Comment: ? REFERENCE VALUE ? Desirable: <100 ? Above Desirable: 100-129 ? Borderline high: 130-159 ? High: 160-189 ? Very high: > or =190 ? 07/16/2015 11:4 9 AM CDT 07/16/2015 11:49 AM CDT Scooby Cabezas M.D. LAB BLOOD ADD-ON [facility] [address] * AST (Aspartate Aminotransferase) (07/16/2015 11:49 AM CDT) Only the most recent of2 resultswithin the time period is included. AST, Total, S 16 8 - 48 U/L [facility] 07/16/2015 11:4 9 AM CDT 07/16/2015 11:49 AM CDT Scooby Cabezas M.D. LAB BLOOD ADD-ON Performing Organization Address City/[facility] Co de Phone Number [facility] [address] * DX Knee Standing 4 Views [...] by: Kristian Richter M.D. [phone] 10-Jul-2015 08:56 Tiffanie Shi APRNNAria [facility] DIAGNOST IC IMAGING PROCEDURES * DX Hip to Ankle Standing (07/10/2015 8:52 AM CDT) Anatomical Region Laterality Modality Lower Extremity, Hip, Femur, Knee, TibFib, Ankle N/A Radiographic Imaging 07/10/2015 8:52 AM CDT Impressions 07/10/2015 8:57 AM CDT Osteopenia. Degenerative arthritis of the hips, knees, and right ankle. Electronically signed by: ?? Kristian Richter M.D. [phone] 10-Jul-2015 08:57 Narrative 07/10/2015 [...] [phone] 10-Jul-2015 08:57 Chitra Mauricio APRN C.N.P. [facility] DIAGNOST IC IMAGING PROCEDURES * US Abdomen Complete (04/04/2015 9:07 AM CENTRIFUGAL CHILLER TECHNICIAN) Anatomical Region Laterality Modality Abdomen N/A Ultrasound 04/04/2015 9:07 AM CENTRIFUGAL CHILLER TECHNICIAN Impressions 04/04/2015 10:06 AM CENTRIFUGAL CHILLER TECHNICIAN 1. No hydronephrosis. 2. 0.5 cm stone [...] Electronically signed by: ?? Preet Quezada MD [phone] 04-Apr-2015 10:06 ?DAjit Kline ?? [phone] 04-Apr-2015 10:06 Narrative 04/04/2015 10:06 AM CENTRIFUGAL CHILLER TECHNICIAN 04-Apr-2015 09:07:00 ??Exam: US Retroperitoneal Complete Indications: [...] Decompressed. Electronically signed by: Preet Quezada MD [phone] 04-Apr-2015 10:06 Josh Kline MD [id number] 10:06 Authorizing Provider Result Charlene Gutiérrez M.D. IMG US PROCEDURES * Sodium (04/04/2015 7:53 AM CENTRIFUGAL CHILLER TECHNICIAN) Only the most recent of3 resultswithin the time period is included. Sodium, S 142 135 - 145 MMOL/L [facility] 04/04/2015 7:53 AM CENTRIFUGAL CHILLER TECHNICIAN 04/04/2015 7:53 AM CENTRIFUGAL CHILLER TECHNICIAN Narrative Authorizing Provider Result Charlene Gutiérrez M.D. LAB BLOOD ADD-ON Performing Organization Address City/[facility]/ZIP Co de Phone Number [facility] [address] * (ABNORMAL) Potassium (04/04/2015 7:53 AM CENTRIFUGAL CHILLER TECHNICIAN) Only the most recent of3 resultswithin the time period is included. Potassium, S 3.4(L) 3.6 - 5.2 MMOL/L [facility] 04/04/2015 7:53 AM CENTRIFUGAL CHILLER TECHNICIAN 04/04/2015 7:53 AM CENTRIFUGAL CHILLER TECHNICIAN Narrative Authorizing Provider Result Charlene Gutiérrez M.D. LAB BLOOD ADD-ON Performing Organization Address City/[facility]/ZIP Co de Phone Number [facility] [address] * Bicarbonate (04/04/2015 7:53 AM CENTRIFUGAL CHILLER TECHNICIAN) Only the most recent of3 resultswithin the time period is included. HX Bicarbonate, P/S 26 22 - 29 MMOL/L [facility] 04/04/2015 7:53 AM CENTRIFUGAL CHILLER TECHNICIAN 04/04/2015 7:53 AM CENTRIFUGAL CHILLER TECHNICIAN Narrative Authorizing Provider Result Charlene Gutiérrez M.D. LAB BLOOD ADD-ON Performing Organization Address City/[facility]/ZIP Co de Phone Number [facility] [address] * Calcium, Total (04/04/2015 7:53 AM CENTRIFUGAL CHILLER TECHNICIAN) Only the most recent of2 resultswithin the time period is included. Calcium, Total, S 9.6 8.9 - 10.1 MG/DL [facility] 04/04/2015 7:53 AM CENTRIFUGAL CHILLER TECHNICIAN 04/04/2015 7:53 AM CENTRIFUGAL CHILLER TECHNICIAN Yumiko Gutiérrez M.D. LAB BLOOD ADD-ON [facility] [address] * CT Abdomen Pelvis Kidney Stone without [...] changes. Electronically signed by: ?? Preet Crespo [facility] [phone] 30-Jan-2015 13:09 ?Preet Quezada MD [phone] 30-Jan-2015 13:09 Narrative 01/30/2015 1:09 PM CDT 30-Jan-2015 10:31:00 ??Exam: CT Renal Stone AP wo Indications: [id number] ??CT RENAL STONE - s/p right PCNL, eval residual stone burden ORIGINAL REPORT - 30-Jan-2015 13:09:00 EXAM: ??CT scan of the Abdomen and Pelvis without IV contrast COMPARISON: ??CT abdomen and pelvis renal stone protocol dated 11/25/2014. CT abdomen and pelvis dated 05/06/2014. Procedure Note Wilner Crespo M.B., B.Ch. - 07/14/2017 30-Jan-2015 10:31:00 Exam: CT Renal Stone AP wo Indications: [id number] CT RENAL STONE - s/p right PCNL, [...] degenerative changes. Electronically signed by: Preet Crespo [facility] [phone] 30-Jan-2015 13:09 Preet Quezada MD [id number] 13:[address] PROCEDURES * Microbiology Reports (01/29/2015 12:39 PM CDT) Only the most recent of3 resultswithin the time period is included. 01/29/2015 12:3 9 PM CDT 01/29/2015 7:58 PM CDT Narrative [facility] - 02/23/2015 1:09 AM CENTRIFUGAL CHILLER TECHNICIAN 29-JAN-2015 KIDNEY, STONE ?SoftOrd# [id number] ?(Ordered 29-JAN-2015; Collected 29-JAN-2015 12:39; Received 29-JAN-2015 19:57) ?[facility] ?FUNGAL CULTURE, ROUTINE ? (Reported 23-FEB-2015 01:09) [...] S ?*Restricted formulary antimicrobials; see intranet link: ?[email or web address] Procedure Note 07/26/2017 29-JAN-2015 KIDNEY, STONESoftOrd# [id number] (Ordered 29-JAN-2015; Collected 29-JAN-2015 12:39; [id number] 19:57) [facility] FUNGAL CULTURE, ROUTINE(Reported 23-FEB-2015 01:09) FINAL No [...] S *Restricted formulary antimicrobials; see intranet link: [email or web address] Veronique Arango M.D. LAB MICROBIOLOGY - G ENERAL ORDERABLES [facility] [address] [place] [address], [facility] * Ureaplasma PCR (01/29/2015 12:39 PM CDT) Specimen Source (Ureaplasma PCR) . [facility] Comment:KIDNEY STONE Ureaplasma urealyticum PCR Negative Not Applicable [facility] Ureaplasma parvum PCR Negative Not Applicable [facility] Comment: ? ADDITIONAL INFORMATION ? Laboratory developed test. ? 01/29/2015 12:3 9 PM CDT 01/29/2015 12:39 PM CDT Veronique Arango M.D. LAB MICROBIOLOGY - G ENERAL ORDERABLES [facility] [address] [place] [address], [facility] * Mycoplasma hominis PCR (01/29/2015 12:39 PM CDT) Specimen Source (Myco hominis PCR) . [facility] Comment:KIDNEY STONE Mycoplasma hominis PCR Negative Not Applicable [facility] Comment: ? ADDITIONAL INFORMATION ? Laboratory developed test. ? 01/29/2015 12:3 9 PM CDT 01/29/2015 12:39 PM CDT Veronique Arango M.D. LAB MICROBIOLOGY - G ENERAL ORDERABLES Performing Organization Address City/[facility] Co de Phone Number [facility] [address] * ABORh, RBC (01/29/2015 8:46 AM CDT) HXABO/RH BLOOD TYPE A Pos [facility] 01/29/2015 8:46 AM CDT Historical Provider LAB BLOOD BANK TEST ORDERABLES Performing Organization Address [facility] Co de Phone Number [facility] [address] * Antibody Screen, RBC (01/29/2015 8:46 AM CDT) Antibody Screen Negative [facility] 01/29/2015 8:46 AM CDT Historical Provider LAB BLOOD BANK TEST ORDERABLES Performing Organization Address [facility] Co de Phone Number [facility] [address] * DX Knee 4+ Views (12/03/2014 [...] Nitrogen), S 18 8 - 24 MG/DL [facility] 11/13/2014 9:33 AM CDT 11/13/2014 9:33 AM CDT Veronique Arango M.D. LAB BLOOD ADD-ON Performing Organization Address City/[facility]/ZIP Co de Phone Number [facility] [address] * (ABNORMAL) Chloride (11/13/2014 9:33 AM CDT) Only the most recent of2 resultswithin the time period is included. Chloride, S 95(L) 98 - 107 MMOL/L [facility] 11/13/2014 9:33 AM CDT 11/13/2014 9:33 AM CDT Veronique Arango M.D. LAB BLOOD ADD-ON Performing Organization Address [facility] Co de Phone Number [facility] [address] * (ABNORMAL) Sedimentation Rate (09/04/2014 10:46 AM CDT) Sedimentation Rate, B 25(H) 0 - 22 MM/1 H [facility] 09/04/2014 10:4 6 AM CDT 09/04/2014 10:46 AM CDT Scooby Cabezas M.D. LAB BLOOD ADD-ON Performing Organization Address City/[facility]/ZIP Co de Phone Number [facility] [address] * Alkaline Phosphatase (09/04/2014 10:46 AM CDT) Alkaline Phosphatase, S 94 45 - 115 U/L [facility] 09/04/2014 10:4 6 AM CDT 09/04/2014 10:46 AM CDT Scooby Cabezas M.D. LAB BLOOD ADD-ON Performing Organization Address City/[facility]/ZIP Co de Phone Number [facility] [address] * PUL Home Overnight Oximetry (05/27/2014 10:29 PM CENTRIFUGAL CHILLER TECHNICIAN) 05/27/2014 10:2 9 PM CENTRIFUGAL CHILLER TECHNICIAN Historical Provider PFT ORDERABLES Performing Organization Address [facility] Co de Phone Number [facility] [address] * (ABNORMAL) Microalbumin, Random, Urine (05/27/2014 1:19 PM CENTRIFUGAL CHILLER TECHNICIAN) Albumin/Creatinin e Ratio 40(H) <17 MG/G [facility] Microalbumin 69.3 MG/L [facility] Creatinine 172 MG/DL [facility] 05/27/2014 1:19 PM CENTRIFUGAL CHILLER TECHNICIAN 05/27/2014 1:19 PM CENTRIFUGAL CHILLER TECHNICIAN Duke Marquez M.D. LAB URINE ORDERABLES Performing Organization Address [facility] Co de Phone Number [facility] [address] * (ABNORMAL) Glucose, Random (05/27/2014 12:54 PM CENTRIFUGAL CHILLER TECHNICIAN) Glucose, S 157(H) 70 - 140 MG/DL [facility] 05/27/2014 12:5 4 PM CENTRIFUGAL CHILLER TECHNICIAN 05/27/2014 12:54 PM CENTRIFUGAL CHILLER TECHNICIAN Duke Marquez M.D. LAB BLOOD TROPONIN Performing Organization Address City/[facility]/ZIP Co de Phone Number [facility] [address] * Pulmonary Function Tests (03/30/2002 9:39 AM CENTRIFUGAL CHILLER TECHNICIAN) 03/30/2002 9:39 AM CENTRIFUGAL CHILLER TECHNICIAN Elena Contreras M.D. PFT ORDERABLES Performing Organization Address City/State/[facility] Co de Phone Number [facility] [address] * CT Head with IV Contrast [...] ?? Kristian Keenan M.D. 30-Oct-2001 15:54 ?Marichuy [id number] 30-Oct-2001 15:54 Procedure Note David Keenan [...] by: Kristian Keenan M.D. 30-Oct-2001 15:54 Marichuy [id number] 30-Oct-2001 15:54 Mike Maldonado M.D. IMG CT PROCEDURE S * DX Kidneys Ureters Bladder with Tomography (10/30/2001 1:04 PM CDT) Anatomical Region Laterality Modality Abdomen, Pelvis N/A Radiographic Maggie ging 10/30/2001 1:04 PM CDT Narrative 10/30/2001 2:58 PM CDT 30-Oct-2001 13:04:00 ??Exam: -KUB w/tomos Indications: htn ORIGINAL REPORT - 30-Oct-2001 14:58:00 KUB with tomograms: No radiopaque renal stones. Left kidney measures approximately 15cm, and right kidney measures approximately 14 cm in length. Electronically signed by: ?? Gwendolyn Bowles M.D. [id number] 30-Oct-2001 14:58 ?Nette Alvarenga [id number] [id number]) 30-Oct-2001 14:58 Procedure Note Mario Alberto Bowles M.D. - 07/22/2017 30-Oct-2001 13:04:00 Exam: -KUB w/tomos Indications: htn ORIGINAL REPORT - 30-Oct-2001 14:58:00 KUB with tomograms: No radiopaque renal stones. Left kidney measuresapproximately 15cm, and right kidney measures approximately 14 cm inlength. Electronically signed by: Gwendolyn Bowles M.D. [id number] 30-Oct-2001 14:58 Nette [id number]) 30-Oct-2001 14:58 Mike BOWMANG DIAGNOSTIC I MAGING PROCEDURES * Hx general Pathology Report (02/02/1994 10:28 AM CDT) 02/02/1994 10:2 8 AM CDT 02/02/1994 10:28 AM CDT Narrative [facility] - 02/02/1994 10:28 AM CDT [id number] Surgical Pathology Requested By: ? Galileo Dubon M.D. ?([id number]) ?? TISSUE DESCRIPTION: ?Tissue from the spine (L-5, right) ?? DIAGNOSIS: ?Disk and ligamentous tissue weighing 2.51 grams. ?? 02Feb1994 ?Mario Alberto Rivero M.D.:cubab Procedure Note 07/08/2017 02Feb1994 Surgical Pathology Requested By: Galileo Dubon M.D.([id number]) TISSUE DESCRIPTION: Tissue from the spine (L-5, right) DIAGNOSIS: Disk and ligamentous tissue weighing 2.51 grams. 02Feb1994 Mario Alberto Rivero M.D.:eab Marlene Dubon M.D. LAB PATHOLOGY/CYTOLO GY ORDERABLES Performing Organization Address [facility]/State/[facility] Co de Phone Number [facility] [address] Visit Diagnoses Diagnosis Start Date Apnea Sleep Obstructive 01/19/2018 Stone Kidney 07/25/2018 Stone Kidney 07/25/2018 Stone Kidney 07/25/2018 Stone Kidney 07/25/2018 Stone Kidney 07/25/2018 Stone Kidney 07/25/2018 Diabetes Mellitus Type 2 (HCC) 07/25/2018 Diabetes Mellitus Type 2 (HCC) 07/25/2018 Morbid Obesity Body Mass Index Greater Than Or Equal To 40 Adult ([facility]) 07/25/2018 Nephrolithiasis Calcium Oxalate 07/25/2018 Stones Uric Acid 07/25/2018 Proteinuria 07/25/2018 Hypertension Essential Primary 07/25/2018 Diabetes Mellitus Type 2 (HCC) 08/01/2018 Morbid Obesity Body Mass Index Greater Than Or Equal To 40 Adult ([facility]) 08/01/2018 Stones Uric Acid 08/01/2018 Stones Uric Acid 08/01/2018 Stone Kidney 12/12/2018 Stones Uric Acid 12/12/2018 Stones Uric Acid 12/12/2018 Diabetes Mellitus Type 2 (HCC) 12/12/2018 Morbid Obesity Body Mass Index Greater Than Or Equal To 40 Adult ([facility]) 12/12/2018 Nephrolithiasis 03/12/2019 Nephrolithiasis 03/12/2019 Stone Kidney And Ureteral 03/12/2019 Decline Functional Status 03/12/2019 Stone Kidney And Ureteral 03/26/2019 Preanesthetic Medical Exam 04/02/2019 Stone Kidney And Ureteral 04/02/2019 Hypertension And Chronic Kidney Disease Stage 3 04/02/2019 Chronic Kidney Disease Stage 3 Glomerular Filtration Rate 30 To 59 04/02/2019 Morbid Obesity Body Mass Index Greater Than Or Equal To 40 Adult ([facility]) 04/02/2019 Apnea Sleep Obstructive 04/02/2019 Stone Kidney And Ureteral 04/04/2019 Stone Kidney And Ureteral 04/04/2019 Stone Kidney 04/20/2019 Stone Kidney And Ureteral 05/07/2019 Stent Ureteral Indwelling 05/07/2019 Apnea Sleep Obstructive 08/09/2019 Apnea Sleep Obstructive 08/09/2019 Diabetes Mellitus Type 2 ([facility]) 08/09/2019 Hypertension And Chronic Kidney Disease Stage 3 08/09/2019 Morbid Obesity Body Mass Index Greater Than Or Equal To 40 Adult ([facility]) 08/09/2019 Apnea Sleep Obstructive 08/14/2020 Hypertension And Chronic Kidney Disease Stage 3 12/10/2020 Dysuria 12/10/2020 Hypertension And Chronic Kidney Disease Stage 3 12/11/2020 Hypertension And Chronic Kidney Disease Stage 3 12/11/2020 Dysuria 12/11/2020 Stones Uric Acid 12/11/2020 Nephrolithiasis 12/11/2020 Chronic Kidney Disease (CKD), Stage 3a Glomerular Filtration Rate (GFR) 45 To 59 ([facility]) 12/11/2020 Urinary Tract Infection Site Not Specified 12/11/2020 Diabetes Mellitus Type 2 ([facility]) 12/11/2020 Hematuria 12/12/2020 Pyuria 12/12/2020 Urinary Tract Infection Site Not Specified 12/12/2020 Deficiency Urethral Sphincter Intrinsic 12/12/2020 Neuromuscular Dysfunction Of Bladder Unspecified 12/12/2020 Other Specified Diabetes Mellitus With Diabetic Chronic Kidney Disease ([facility]) 12/12/2020 Hematuria 03/03/2021 Pyuria 03/03/2021 Urinary Tract [...] Hypertension And Chronic Kidney Disease Stage 3 01/07/2022 Anemia 01/07/2022 Atrial Fibrillation Unspecified (HCC) [...] Hypertension And Chronic Kidney Disease Stage 3 10/12/2022 Nephrolithiasis 10/12/2022 Stone Kidney And Ureteral [...] Hypertension And Chronic Kidney Disease Stage 3 10/22/2022 Pain Back 11/27/2022 Malignant Neoplasm Of [...] Hypertension And Chronic Kidney Disease Stage 3 03/15/2023 Diabetes Mellitus Type 2 (HCC) 03/15/2023 [...] Hypertension And Chronic Kidney Disease Stage 3 04/06/2023 Tachycardia Atrial Paroxysmal (HCC) 04/06/2023 Major Depressive Disorder, Recurrent, Unspecified (HCC) 04/06/2023 Debility 04/06/2023 Stenosis Spinal Lumbar With Neurogenic Claudication 04/06/2023 Hypothyroidism 04/06/2023 Chronic Idiopathic Constipation 04/06/2023 Weakness General 03/08/2023 Debility 03/08/2023 Pain Low Back Chronic 03/08/2023 Decline Functional Status 03/08/2023 Pain Back Lumbar 03/08/2023 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 Major Depressive Disorder, Recurrent, Unspecified (HCC) 05/02/2023 Tachycardia Atrial Paroxysmal (HCC) 05/02/2023 Morbid Obesity Body Mass Index 45.0-49.9 Adult (HCC) 05/02/2023 Diabetes Mellitus Type 2 Peripheral Neuropathy (HCC) 05/02/2023 Hypertension And Chronic Kidney Disease Stage 3 05/02/2023 Weakness General 05/02/2023 Anemia Iron Deficiency [...] 45 To 59 (HCC) 05/09/2023 Hypothyroidism 05/09/2023 Major Depressive Disorder, Recurrent, Unspecified (HCC) 05/09/2023 Decline Functional Status 05/09/2023 Morbid Obesity Body Mass Index 45.0-49.9 Adult ([facility]) 05/09/2023 Malignant Neoplasm Of Colon Ascending (HCC) [...] Malignant Neoplasm Of Colon Ascending (HCC) 05/18/2023 Major Depressive Disorder, Recurrent, Unspecified (HCC) 05/18/2023 Tachycardia Atrial Paroxysmal (HCC) 05/18/2023 [...] Glomerular Filtration Rate (GFR) 45 To 59 05/31/2023 Edema Leg Chronic 05/31/2023 Rash Leg 05/31/2023 Diabetes Mellitus Type 2 Peripheral Neuropathy (HCC) 05/31/2023 Hyperlipidemia 05/31/2023 Hypothyroidism 05/31/2023 Anemia 05/31/2023 Major Depressive Disorder, Recurrent, Unspecified (HCC) 05/31/2023 Stenosis Spinal Lumbar With Neurogenic Claudication 05/31/2023 Weakness General 05/31/2023 Apnea Sleep Obstructive 05/31/2023 Nephrolithiasis 05/31/2023 Stones Uric Acid 05/31/2023 Benign Prostatic Hyperplasia Without Obstruction 05/31/2023 Osseous Stenosis Of Neural Canal Lumbar Region 06/03/2023 Anemia Iron Deficiency 06/15/2023 Malignant Neoplasm Of Colon Ascending (HCC) 06/15/2023 Hypertensive Chronic Kidney Disease (CKD) Stage 3a Glomerular Filtration Rate (GFR) 45 To 59 06/15/2023 Diabetes Mellitus Type 2 Peripheral Neuropathy [...] Glomerular Filtration Rate (GFR) 45 To 59 06/20/2023 Malignant Neoplasm Of Colon Ascending (HCC) 06/21/2023 Malignant Neoplasm Of Sigmoid Colon (HCC) 06/21/2023 Colectomy Partial Status Post 06/28/2023 Malignant Neoplasm Of Cecum (HCC) 06/28/2023 Malignant Neoplasm Of Colon (HCC) 06/28/2023 Tachycardia Atrial Paroxysmal (HCC) 06/28/2023 Hypertensive Chronic Kidney Disease (CKD) Stage 3a Glomerular Filtration Rate (GFR) 45 To 59 06/28/2023 Edema Leg Chronic 06/28/2023 Diabetes Mellitus [...] Glomerular Filtration Rate (GFR) 45 To 59 07/05/2023 Edema Leg Chronic 07/05/2023 Diabetes Mellitus [...] 10/07/2022 Hypothyroidism 10/07/2022 Hypertension Essential Primary 10/07/2022 Major Depressive Disorder, Recurrent, Unspecified (HCC) 10/07/2022 Diabetes Mellitus Type 2 Peripheral Neuropathy (HCC) 10/07/2022 Decline Functional Status 10/07/2022 Chronic Idiopathic Constipation 10/07/2022 Anemia Iron Deficiency 10/07/2022 Tachycardia Atrial Paroxysmal (HCC) 10/07/2022 Anemia Iron Deficiency 10/22/2022 Apnea Sleep Obstructive 10/22/2022 Chronic Idiopathic Constipation 10/22/2022 Decline Functional Status 10/22/2022 Diabetes Mellitus Type 2 Peripheral Neuropathy (HCC) 10/22/2022 Hypertension And Chronic Kidney Disease Stage 3 10/22/2022 Hypothyroidism 10/22/2022 Morbid Obesity (HCC) 10/22/2022 [...] Hypertension And Chronic Kidney Disease Stage 3 05/11/2023 Apnea Sleep Obstructive 05/11/2023 Major Depressive Disorder, Recurrent, Unspecified (HCC) 05/11/2023 Hypothyroidism 05/11/2023 Other Hyperlipidemia 05/11/2023 Stenosis Spinal Lumbar With Neurogenic Claudication 05/11/2023 Debility 05/11/2023 Tachycardia Atrial Paroxysmal (HCC) 05/11/2023 Diabetes Mellitus Type 2 Peripheral Neuropathy (HCC) 05/11/2023 Repeated Falls 05/11/2023 Care Teams Oracle Adf Developer Relationship Specialty Start Date End Date Elsewhere, Pcp PCP - General Internal Medicine 07/08/23
--- OUTSIDE RECORDS SUMMARY | 2023-10-11 12:40 | XMS_ITS | Referral Summary ---
Author Organization [facility] Address [address] [place] [address] Care Team Providers Care Data Entry Name Role Phone Elsewhere, Pcp Primary Care Provider Unavailabl e Source Comments Patient records contain information from all sites at [facility]. For routine questions regarding patient records, call [phone] during business hours, M-F 8:00 AM - 5:00 PM Central Time. Record requests for emergency care only can be directed to [phone] at any time.[facility] Encounters Date Type Department Care Team Description 10/10/2023 CPAP Download Remote Patient Monitoring [facility] [address] [place] [address] [facility], Provider 09/09/2023 CPAP Download Remote Patient Monitoring [facility] [address] [place] [address] [facility], Provider 08/09/2023 CPAP Download Remote Patient Monitoring [facility] [address] [place] [address] [facility], Provider 08/08/2023 1:06 PM CDT - 08/08/2023 11:59 PM CDT Hospital Encounter Department of Radiology, [facility], in [place], [place] [address] [place] [phone] Mario Alberto Navarro P.A.-C., M.S. Wilner Casas M.D. 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 02/06 - day mobile cardiac monitor and storage bin tender: underlying rhythm of sinus, intermittent sinus arrhythmia, [...] 4. Electronically signed by: Kimi Manzano M.D. [id number] 10-Aug-2016 12:45 Failed Gabapentin in 12/2022. Switched [...] - MODE RNA (12 YEARS AND OLDER) [id number] 02/18/2023 Td (Adult), adsorbed 04/02/2019(Deferred : Other [...] alcohol) rarely, one or two a year [facility] Utilities Answer Date Recorded In the [...] week 12/31/2021 How often do you attend [facility] or hoahaoism services? More than 4 times per year 12/31/2021 Do you belong to any clubs o r organizations such as bahai groups, unions, fraternal or athletic groups, or [...] heating? Not hard at all 02/11/2023 [facility] - Occupational Stress Questionnaire Answer Date [...] Sex Assigned at Male 06/14/2018 8:36 PM TUBE HANDLER Gender Identity Male 10/11/2022 10:17 PM CDT Sexual Orientation Choose not to disclose 2019 1:31 PM TUBE HANDLER Last Filed Vital Signs Vital Sign Reading [...] 185 cm (6' 0.84) 05/11/2023 2:15 PM TUBE HANDLER Body Mass Index 55.11 05/11/2023 2:15 PM TUBE HANDLER Plan of Treatment Not on file Medical Devices Explanted Type Area Grinding Room Supervisor Device Identifier Shelf Expiration Date Model / Serial / Lot Stnt Uret Inl 6fx26 - [id number] Implanted:Qty : 1 on 04/04/2019 by Julian Mayfield M.D. at [facility] Ureteral Stent Right: Ureter [employer]ard [id number] 01/25/2022 [id number] / / [id number] Stnt Uret Inl [id number] - [id number] Implanted:Qty : 1 on 03/12/2019 by Ashkan Villanueva M.D. at [facility] Explanted: by Keith Lovelace APRN, C.N.P., M.S.N. 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 EXTI BASIC METABOLIC PANEL, S/P Routine 06/06/2023 9:00 AM TUBE HANDLER HEMOGLOBIN A1C, B Routine 05/11/2023 3:[address] ABDOMEN PELVIS WITH IV CONTRAST RAD - Routine (most inpatients and all outpatients) 04/18/2023 2:12 PM TUBE HANDLER THYROID-STIMULATING HORMONE-SENSITIVE (S-TSH) STAT 02/20/2023 2:34 AM TUBE HANDLER EXTI LIPID PANEL W REFLEX MEASURED LDL Routine 10/01/2022 1:35 PM CDT ALBUMIN, 24 HR, U Routine 08/13/2015 10:01 AM CDT from Last 3 Months or Most Recently Relevant to Health Maintenance Results * CT chest abdomen pelv wo con-Outside CT Body (08/11/2023 11:10 AM CDT) Narrative [facility] - 08/12/2023 12:05 PM CDT [...] Injection Right (08/08/2023 2:08 PM CDT) Impressions [id number] - 08/08/2023 2:43 PM CDT Fluoroscopically-guided transforaminal epidural steroid injection. NR Narrative [id number] - 08/08/2023 2:43 PM CDT EXAM: FL [...] felt to best approximate that of an [id number]. Prior right L4 injection did not provide [...] steroid injection. NR Mario Alberto Navarro P.A.-C. MAjitS. IMG FLUO ROSCOPY PROCEDURES Performing Organization Address [facility] Co de Phone Number [id number] NA * (ABNORMAL) Hemoglobin A1c (05/11/2023 3:18 PM TUBE HANDLER) Hemoglobin A1c, B 6.5(H) 4.0 - 5.6 % 05/11/2023 5:35 PM TUBE HANDLER DTL Comment: Hemoglobin A1c values greater than or equal to 6.5 percent are diagnostic for diabetes mellitus. ??Diagnosis should be confirmed by repeat testing. ??In diabetic patients, HbA1c goals should be discussed with healthcare provider. Blood (Blood, Venous) 05/11/2023 3:18 PM TUBE HANDLER 05/11/2023 3:27 PM TUBE HANDLER Delma Ramirez APRN C.N.PAjit, D.N.P. LAB BLOOD ADD-ON Performing Organization Address [facility] Co de Phone Number [facility] [address] [place] [address], [facility] DTL [facility] [address] [place] [address] * CT Abdomen Pelvis with IV Contrast (04/18/2023 2:12 PM TUBE HANDLER) Anatomical Region Laterality Modality Abdomen, Pelvis, Abdominal R ST LOS, Abdominal ARZ LOS, Abdominal FLA LOS N/A Computed Tomography 04/18/2023 2:08 PM TUBE HANDLER Impressions 04/18/2023 4:14 PM TUBE HANDLER 1. Limited/incomplete CT imaging of lateral right [...] kidneys and pancreas. Narrative 04/18/2023 4:14 PM TUBE HANDLER EXAM: CT ABDOMEN PELVIS WITH IV CONTRAST [...] the lateral right abdomen not included within [id number]. Within this limitation, no evidence of bowel [...] of the lateral rightabdomen not included within [id number]. Within this limitation, noevidence of bowel obstruction, [...] Leila Jo M.D. IMG CT PROCEDURES * S-TSH (Thyroid-Stimulating Hormone - Sensitive) (02/20/2023 2:34 AM TUBE HANDLER) Pathologist [facility] TSH, Sensitive 0.9 0.3 - 4.2 mIU/L 02/20/2023 4:20 AM TUBE HANDLER DTL Blood (Blood, Venous) 02/20/2023 2:34 AM TUBE HANDLER 02/20/2023 2:54 AM TUBE HANDLER Peter Alva M.D., M.S. LAB BLOOD ADD -ON [facility] [address] [facility] [address] [place] [address] * Microalbuminuria, 24 Hour, Urine (08/13/2015 10:01 AM CDT) Pathologist [facility] 24 Hour Excretion <9 <30 MG/24 H [facility] Albumin Excretion Rate <6 <20 MCG/MIN [facility] Albumin Concentration <5.0 MG/L [facility] Collection Duration 24 H [facility] Urine Volume [id number] ML [facility] 08/13/2015 10:0 1 AM CDT 08/13/2015 10:01 AM CDT Scooby Cabezas M.D. LAB URINE ORDERABLES [facility] [address] from Last 3 Months or Most Recently Relevant to Health Maintenance Advance Directives For more information, please contact: [phone] Documents on File Type Date Recorded Patient Geochemist Expl anation Advance Directives 05/02/2023 2:48 PM POLS T/MOLST Advance Directives 04/27/2023 2:16 PM Yolimark Olivera HCPO A/ADVOCATE/AGENT/REPR ESENTATIVE/SURROGATE * Full Code [...] Olivera Spouse Health Care Agent Care Teams Data Entry Relationship Specialty Start Date End Date Elsewhere, Pcp PCP - General Internal Medicine 07/08/23
--- OUTSIDE RECORDS SUMMARY | 2023-10-11 12:40 | XMS_ITS ---
Author Organization [facility] Address [address] [place] [address] Care Team Providers Care Employee Benefits Specialist Name Role Phone Elsewhere, Pcp Primary Care [...] beats. 02/06 - day mobile cardiac monitor tech: underlying rhythm of sinus, intermittent sinus arrhythmia, [...] treatments are documented for this patient in [facility]. Treatments may have been administered in [...]
--- OUTSIDE RECORDS SUMMARY | 2023-10-11 12:41 | XMS_ITS | Clinical Summary ---
Author Organization [employer] [facility] Address [place], [place] [address] Care Team Providers Care Call Center Agent Name Role Phone Grzegorz Wiggins MD Primary Care Provider [phone] [facility], [place] Unavailable [phone] Allergies Active Allergy Reactions Criticality Noted Date [...] stated as uncontrolled as Directed 100 3 03/07/20 07 Active lancets (MICROLET LANCET)Indications :Type II or unspecified type diabetes mellitus without mention of complication, not stated as uncontrolled Dispense meter, test strips, lancets covered by pt ins. 250.02 NIDDM type II, uncontrolled - Test 1 time/day 100 Each 4 06/10/19 15 Active blood-glucose meterIndications:T ype II or unspecified type diabetes mellitus without mention of complication, not stated as uncontrolled 250.02 NIDDM type II, uncontrolled - Test 1 time/day; please refill everything for one year. 1 Device 0 06/10/19 15 Active glucosamine-chondr oitin, 500-400 mg, (COSAMIN DS 500/400) 500-400 mg cap Take 1 Capsule by mouth three times daily. 12/18/19 19 Active sodium bicarbonate 650 mg tablet Take 1,950 mg by mouth three times daily. Take 3 tablets (1950 mg) 3 times daily for kidney stones Active acetaminophen (TYLENOL EXTRA STRGTH) 500 mg tablet Take 1,000 mg by mouth three times daily. Acetaminophen 1000 mg three times daily as needed. 06/15/19 22 Active Walker - 4 wheelsIndications: Spinal stenosis of lumbar region with neurogenic claudication,DDD (degenerative disc disease), cervical For home use. Length of need: 99 Bariatric four wheel walker with a seat. [facility]. [phone] 1 Each 02/09/20 22 Active [employer] CONTOUR stripIndications:D iabetes mellitus without complication (HC) TEST TWICE DAILY DUE TO UNCONTROLLED DIABETES MELLITUS. 200 Each 3 09/04/19 23 Active pen needle, diabetic (UltiCare Pen Needle) 31 gauge x 5/16Indications:D iabetes mellitus without complication (HC) USE WITH INSULIN PER MD INSTRUCTIONS 200 Each 3 09/17/19 23 Active levothyroxine (SYNTHROID) 125 mcg tabletIndications: Other specified hypothyroidism TAKE ONE TABLET BY MOUTH DAILY ALONG WITH 100MCG FOR TOTAL OF 225MCG 90 Tablet 1 09/17/19 23 Active magnesium oxide (MAG-OX 400) 400 mg tabletIndications: Atrial fibrillation, unspecified type (HC) TAKE 1 TABLET BY MOUTH ONCE DAILY. 90 Tablet 3 10/21/19 23 Active DULoxetine (CYMBALTA) 30 mg Delayed-release capsuleIndications :Lumbar radicular pain Take 1 Capsule (30 mg) by mouth two times daily. 180 Capsule 3 11/12/19 23 Active pravastatin (PRAVACHOL) 80 mg tabletIndications: Other hyperlipidemia TAKE 1 TABLET BY MOUTH EVERY DAY 90 Tablet 3 02/03/20 23 Active wheelchairIndicati ons:Spinal stenosis of lumbar region with neurogenic claudication Wheelchair: Bariatric (over 250 lbs) with leg rests: (Swing away Length of need: 99 months 1 Each 03/16/20 23 Active Chair LiftIndications:Sp inal stenosis of lumbar region with neurogenic claudication,Right -sided low back pain with right-sided sciatica, unspecified chronicity,DDD (degenerative disc disease), cervical,Malignant neoplasm of ascending colon (HC) For home use. 1 Each 06/29/19 24 Active levothyroxine (SYNTHROID) 100 mcg tabletIndications: Other specified hypothyroidism Take 1 Tablet (100 mcg) by mouth before breakfast. Take with 125 mcg tablet (total of 225 mcg daily) 90 Tablet 4 07/12/19 24 Active metFORMIN (GLUCOPHAGE XR) 500 mg Extended-Release tabletIndications: Type 2 diabetes mellitus with stage 3 chronic kidney disease, with long-term current use of insulin, unspecified whether stage 3a or 3b CKD (HC) Take 2 Tablets (1,000 mg) by mouth two times daily with meals. 360 Tablet 3 07/12/19 24 Active dilTIAZem CD (CARDIZEM CD) 120 mg extended release 24 hr capsuleIndications :Paroxysmal SVT (supraventricular tachycardia) (HC) Take 2 Capsules (240 mg) by mouth two times daily. 360 Capsule 1 08/04/19 24 Active pregabalin (LYRICA) 150 mg capsuleIndications :Spinal stenosis of lumbar region with neurogenic claudication Take 2 Capsules (300 mg) by mouth two times daily. 360 Capsule 3 08/19/19 24 Active pantoprazole (PROTONIX) 40 mg delayed-release tabletIndications: Upper GI bleed Take 1 Tablet (40 mg) by mouth once daily. Take 30 minutes before supper. 90 Tablet 3 08/19/19 24 Active allopurinoL (ZYLOPRIM) 300 mg tabletIndications: Kidney stone Take 1 Tablet (300 mg) by mouth once daily. 90 Tablet 3 08/19/19 24 Active glipiZIDE (GLUCOTROL) 5 mg tabletIndications: Type 2 diabetes mellitus with stage 3 chronic kidney disease, with long-term current use of insulin, unspecified whether stage 3a or 3b CKD (HC) Take 1 Tablet (5 mg) by mouth two times daily before meals. 180 Tablet 3 08/19/19 24 Active furosemide (LASIX) 20 mg tabletIndications: Bilateral lower extremity edema TAKE 1 TABLET BY MOUTH IN THE MORNING AND 1 TABLET AT 1PM 60 Tablet 3 09/19/19 24 Active spironolactone (ALDACTONE) 25 mg tabletIndications: HTN (hypertension),Madi ateral lower extremity edema Take 1 Tablet (25 mg) by mouth once daily. 30 Tablet 3 09/20/19 24 Active tamsulosin (FLOMAX) 0.4 mg capsuleIndications :Benign non-nodular prostatic hyperplasia with lower urinary tract symptoms TAKE 2 CAPSULES BY MOUTH ONCE DAILY AFTER A MEAL 180 Capsule 2 09/30/19 24 Active insulin glargine, U-100, (Lantus Solostar U-100 Insulin) 100 unit/mL (3 mL) penIndications:Typ e 2 diabetes mellitus without complication, with long-term current use of insulin (HC) Inject 38 units subcutaneous before bedtime. Product desired: LANTUS SOLOSTAR 30 mL 4 09/30/19 24 Active tamsulosin (FLOMAX) 0.4 mg capsuleIndications :Benign non-nodular prostatic hyperplasia with lower urinary tract symptoms Take 2 Capsules (0.8 mg) by mouth at bedtime. 180 Capsule 3 12/03/19 23 024 Discontinued insulin glargine, U-100, (Lantus Solostar U-100 Insulin) 100 unit/mL (3 mL) penIndications:Typ e 2 diabetes mellitus without complication, with long-term current use of insulin (HC) Inject 38 units subcutaneous before bedtime. Product desired: LANTUS SOLOSTAR 30 mL 5 08/19/19 24 024 Discontinued(*A vailability/For mulary change/Cost of medication) furosemide (LASIX) 20 mg tabletIndications: Bilateral lower extremity edema Take 20 mg in the morning and 20 mg at 1 pm 60 Tablet 08/26/19 24 024 Discontinued spironolactone (ALDACTONE) 25 mg tabletIndications: HTN (hypertension),Madi ateral lower extremity edema Take 1 Tablet (25 mg) by mouth once daily. 30 Tablet 08/26/19 24 024 Discontinued spironolactone (ALDACTONE) 25 mg tabletIndications: HTN (hypertension),Madi ateral lower extremity edema TAKE 1 TABLET BY MOUTH EVERY DAY 30 Tablet 09/16/19 24 024 Discontinued(Re order (E-cancel not sent)) Active Problems Problem Noted [...] reports on 04/15/[address] Dasilva of [place] and Dr. Sousa of [facility] have both given him the ok to [...] Date Type Department Care Team Description 10/10/2023 Telephone [facility] [address] [place] [address] [place], KATHLEEN Edema 10/10/2023 Nurse Triage [facility] [address] [place] [address] Grzegorz Wiggins MD Penis/Scrotum Problem 09/28/2023 Refill [facility] [address] [place] [address] Grzegorz Wiggins MD Refill Request (Lantus Solostar U-100 Insulin, Tamsulosin) 09/16/2023 Refill [facility] [address] [place] [address] Grzegorz Wiggins MD Refill Request (Furosemide) 09/14/2023 Telephone [facility] [address] [place] [address] Mary Anne Garibay NP Refill Request (Spironolactone) 09/09/2023 Orders Only [facility] [address] [place] [address] Grzegorz Wiggins MD Lab 09/07/2023 Refill [facility] [address] [place] [address] Mary Anne Garibay NP Refill Request (Spironolactone, Furosemide) 09/06/2023 7:15 AM CDT Orders Only [address] [address] [place], [place] [facility] 09/06/2023 Orders Only [address] [address] Phylicia Yip, DO <No scans attached> 09/06/2023 Travel 09/05/2023 E-Visit [address] [address] Grzegorz Wiggins MD Urinalysis 09/02/[address] [address] Grzegorz Wiggins MD fyi (discharged) 08/19/2023 8:50 AM CDT Telemedicine [address] [address] Grzegorz Wiggins MD Medication Management; Knee Pain/problem 08/19/[address] [address] Grzegorz Wiggins MD Medication Management (glipiZIDE (GLUCOTROL) 5 mg tablet) 08/11/2023 Orders Only [facility] Scanner 1 scan: (1-Ord) [place], CT-CHEST/ABD/PELVIS W/O, 08/11/2023 07/23/[address] [address] Grzegorz Wiggins MD Refill Request (Spironolactone) 07/20/[address] [address] Grzegorz Wiggins MD in error 07/15/2023 Telephone [facility] [address] [place] [address] Grzegorz Wiggins MD Follow Up 07/13/2023 Telephone [facility] [address] [facility] [address] Grzegorz Wiggins MD Questions 07/12/2023 3:10 PM CDT Telemedicine [facility] [address] [place] [address] Grzegorz Wiggins MD [facility] care follow up (Patient was at [facility] following his hospital stay - 05/11/2023 admitted to [facility]) from Last 3 Months Immunizations Name Administration Dates Next Due AMB Influenza, IIV3 (Age >=3 years)(Flu Clinic Only) 04/12/2008 COVID-19 vaccine (Pfizer-Bio NTech 30mcg/0.3mL) 12YO+ BIVALENT PF, MDV 03/08/2022 COVID-19 vaccine (Pfizer-Bio NTech 30mcg/0.3mL) 12YO+ LEATHA-SUCROSE PF, MDV 10/05/2021 COVID-19 vaccine (Pfizer-Bio NTech 30mcg/0.3mL) PF, MDV 07/05/2020,06/14/2020 Covid-19 Vaccine (Moderna 25MCG/0.25ML) [id number] [id number] Formula PF, SDV 02/18/2023,03/08/2022 DT (Age < 7 years) 06/03/1997 Influenza [...] (Pneumovax) 05/29/2007 Pneumococcal, Unspecified 04/19/2011 Tdap 07/29/2021,12/24/2008 Tuberculin Skin Test, Unspecified 04/27/2023 Family History Medical History Relation Name Comments [...] Care Team (Late st Contact Info) Description 11/18/2023 8:00 AM CDT Office Visit [facility] [address] [place] [address] Grzegorz Wiggins MD [address] [place] [address] Health Maintenance Due Date Last Done Comments Zoster (shingles) series for age 50+ (1 of 2) 11/06/1971 BMI (ht and wt on same day) for age 18+ 10/16/2022 10/16/2021, 07/09/2021, 09/07/2017, Additional history exists Medicare Wellness for age 65+ 01/12/2023 01/11/2022, 11/13/2018 COVID-19 vaccine series ( season) 2023 02/18/2023, 02/18/2023, 03/08/2022, Additional history exists Influenza for age 65+ [...] Procedure Name Priority Date/Time Associated Diagnosis Comments RED CELL MORPHOLOGY Routine 09/09/2023 1 1:00 AM CDT Upper GI bleed PLATELET ESTIMATE Routine 09/09/2023 11: 00 AM CDT Upper GI bleed CBC WITH AUTO DIFFERENTIAL Routine 09/09/2023 11:00 AM CDT Upper GI bleed BASIC METABOLIC PANEL Routine 09/09/2023 11:00 AM CDT Essential hypertension CBC WITH AUTO DIFFERENTIAL Routine 09/09/2023 11:00 AM CDT Upper GI bleed URINE CULTURE Add On 09/06/2023 7:22 AM CDT Dysuria URINALYSIS MICROSCOPIC Routine 7:22 AM CDT Dysuria UA W/ SEDIMENT EXAM REFLEXED PER CRITERIA Routine 09/06/2023 7:22 AM CDT Dysuria SCAN-CT INTERPRETATION 12:00 AM CDT SCAN CORRESP-LABORATORY RESULTS 07/13/2023 8:32 AM CDT [...] STONE PROTOCOL WO Routine 04/15/2021 12:00 AM SAP TECHNICAL ARCHITECT Recurrent UTI from Last 3 Months or Most Recently Relevant to Health Maintenance Results * (ABNORMAL) CBC WITH AUTO DIFFERENTIAL (09/09/2023 11:00 AM CDT) WHITE BLOOD COUNT 7.0 4.5 - 11.0 thou/cu mm 09/09/2023 4:50 PM CDT [facility] RED BLOOD COUNT 4.10(L) 4.30 - 5.90 mil/cu mm 09/09/2023 4:50 PM CDT [facility] HEMOGLOBIN 9.2(L) 13.5 - 17.5 g/dL 09/09/2023 4:50 PM CDT [facility] HEMATOCRIT 30.8(L) 37.0 - 53.0 % 09/09/2023 4:50 PM CDT [facility] MCV 75(L) 80 - 100 fL 09/09/2023 4:50 PM CDT [facility] MCH 22.4(L) 26.0 - 34.0 pg 09/09/2023 4:50 PM CDT [facility] MCHC 29.9(L) 32.0 - 36.0 g/dL 09/09/2023 4:50 PM CDT [facility] RDW 20.8(H) 11.5 - 15.5 % 09/09/2023 4:50 PM CDT [facility] PLATELET COUNT 270 140 - 440 thou/cu mm 09/09/2023 4:50 PM CDT [facility] MPV 10.2 6.5 - 11.0 fL 09/09/2023 4:50 PM CDT [facility] NRBC 0.0 % 09/09/2023 4:50 PM CDT [facility] ABS NRBC 0.0 thou /cu mm 09/09/2023 4:50 PM CDT [facility] % NEUT 60.4 % 09/09/2023 4:50 PM CDT [facility] % LYMPH 25.0 % 09/09/2023 4:50 PM CDT [facility] % MONO 6.7 % 09/09/2023 4:50 PM CDT [facility] % EOS 6.8 % 09/09/2023 4:50 PM CDT [facility] % BASO 0.7 % 09/09/2023 4:50 PM CDT [facility] % IMMATURE GRAN (METAS,MYELOS,WA OS) 0.4 % 09/09/2023 4:50 PM CDT [facility] ABSOLUTE NEUTROPHILS 4.3 1.7 - 7.0 thou/cu mm 09/09/2023 4:50 PM CDT [facility] ABSOLUTE LYMPHOCYTES 1.8 0.9 - 2.9 thou/cu mm 09/09/2023 4:50 PM CDT [facility] ABSOLUTE MONOCYTES 0.5 <0.9 thou/cu mm 09/09/2023 4:50 PM CDT [facility] ABSOLUTE EOSINOPHILS 0.5(H) <0.5 thou/cu mm 09/09/2023 4:50 PM CDT [facility] ABSOLUTE BASOPHILS 0.1 <0.3 thou/cu mm 09/09/2023 4:50 PM CDT [facility] ABSOLUTE IMMATURE GRANULOCYTES(MET ,MYELOS,PROS) 0.0 <0.3 thou/cu mm 09/09/2023 4:50 PM CDT [facility] Blood BLOOD SPECIMEN / Unknown Non-Lab Venipuncture / Unknown 09/09/2023 11:00 AM CDT 09/09/2023 3:41 PM CDT [facility] - 09/09/2023 4:50 PM CDT This procedure was originally ordered at [facility]. Grzegorz Wiggins MD HEMATOLOGY [facility] [address] [address], [place] * (ABNORMAL) RED CELL MORPHOLOGY (09/09/2023 11:00 AM CDT) Pathologist [facility] ELLIPTOCYTES Few 09/09/2023 4:50 PM CDT [facility] POLYCHROMASIA Slight 09/09/2023 4:50 PM CDT [facility] RBC COMMENT Present(A) RBC morphology appears normal, RBC morphology within normal limits for newborns. 09/09/2023 4:50 PM CDT [facility] Blood BLOOD SPECIMEN / Unknown Non-Lab Venipuncture / Unknown 09/09/2023 11:00 AM CDT 09/09/2023 3:41 PM CDT Narrative [facility] - 09/09/2023 4:50 PM CDT This procedure was originally ordered at [facility]. Grzegorz Wiggins MD HEMATOLOGY [facility] [address] [address], [place] * (ABNORMAL) PLATELET ESTIMATE (09/09/2023 11:00 AM CDT) [facility] PLATELET ESTIMATE Platelets are clumped and appear adequate in number(A) Adequate, No estimate 09/09/2023 4:50 PM CDT [facility] Blood BLOOD SPECIMEN / Unknown Non-Lab Venipuncture / Unknown 09/09/2023 11:00 AM CDT 09/09/2023 3:41 PM CDT Narrative [facility] - 09/09/2023 4:50 PM CDT This procedure was originally ordered at [facility]. Grzegorz Wiggins MD HEMATOLOGY [facility] [address] [address], [place] * (ABNORMAL) BASIC METABOLIC PANEL (09/09/2023 11:00 AM CDT) [facility] SODIUM 139 136 - 145 mmol/L 09/09/2023 4:51 PM T [facility] POTASSIUM 4.4 3.5 - 5.1 mmol/L 09/09/2023 4:51 PM T [facility] CHLORIDE 103 98 - 107 mmol/L 09/09/2023 4:51 PM T [facility] CO2,TOTAL 24 22 - 29 mmol/L 09/09/2023 4:51 PM T [facility] ANION GAP 12 5 - 18 09/09/2023 4:51 PM T [facility] GLUCOSE 152(H) 70 - 99 mg/dL 09/09/2023 4:51 PM T [facility] CALCIUM 8.9 8.8 - 10.2 mg/dL 09/09/2023 4:51 PM [facility] BUN 30(H) 8 - 23 mg/dL 09/09/2023 4:51 PM T [facility] CREATININE 1.54(H) 0.70 - 1.20 mg/dL 09/09/2023 4:51 PM T [facility] BUN/CREAT RATIO 19 10 - 20 4:51 PM T [facility] eGFR 48(L) >90 mL/min/1.7 3m2 09/09/2023 4:51 PM T [facility] Comment:As of 2021, eG FR is calculated by the CKD-EPI creatinine equation without race adjustment. ??eGFR can be influenced by muscle mass, exercise, and diet. ??The reported eGFR is an estimation only and is only applicable if the renal function is stable. Blood BLOOD SPECIMEN / Unknown Non-Lab Venipuncture / Unknown 09/09/2023 11:00 AM CDT 09/09/2023 3:41 PM CDT Grzegorz Wiggins MD CHEMISTRY [facility] [address] [address], [place] * URINALYSIS MICROSCOPIC (09/06/2023 7:22 AM CDT) RBC None Seen 0-2, None Seen /HPF 09/06/2023 7:31 AM CDT [facility] WBC 0-2 0-2, 3-5, None Seen /HPF 09/06/2023 7:31 AM CDT [facility] BACTERIA Few None Seen, Rare, Few Bacteria/ HPF 09/06/2023 7:31 AM CDT [facility] EPITHELIAL CELLS None Seen None Seen, Few Epi/HPF 09/06/2023 7:31 AM CDT [facility] Urine URINE SPECIMEN / Unknown Non-Blood / Unknown 09/06/2023 7:22 AM CDT 09/06/2023 7:22 AM CDT Phylicia Yip DO URINE Performing Organization Address City/[facility]/ZIP Co de Phone Number [facility] [address] [place] [address], * URINE CULTURE (09/06/2023 7:22 AM CDT) CULTURE <10,000 CFU/mL multiple organisms 09/07/2023 1:36 PM CDT [facility] Urine URINE SPECIMEN / Unknown Non-Blood / Unknown 09/06/2023 7:22 AM CDT 09/06/2023 7:22 AM CDT Phylicia Yip DO MICROBIOLOGY [facility] [address] [address], [place] * (ABNORMAL) UA W/ SEDIMENT EXAM REFLEXED PER CRITERIA (09/06/2023 7:22 AM CDT) COLOR Yellow Yellow Color 09/06/2023 7:31 AM CDT [facility] CLARITY Clear Clear Clarity 09/06/2023 7:31 AM CDT [facility] SPECIFIC GRAVITY,URINE 1.025 1.010, 1.015, 1.020, 1.025 09/06/2023 7:31 AM CDT [facility] PH,URINE 5.5 6.0, 7.0, 8.0, 5.5, 6.5, 7.5, 8.5 09/06/2023 7:31 AM CDT [facility] UROBILINOGEN, QUALITATIVE Normal Normal EU/dl 09/06/2023 7:31 AM CDT [facility] PROTEIN, URINE Negative Negative mg/dL 09/06/2023 7:31 AM CDT [facility] GLUCOSE, URINE Negative Negative mg/dL 09/06/2023 7:31 AM CDT [facility] KETONES,URINE Negative Negative mg/dL 09/06/2023 7:31 AM CDT [facility] BILIRUBIN,URI NE Negative Negative 09/06/2023 7:31 AM CDT [facility] OCCULT BLOOD,URINE Negative Negative 09/06/2023 7:31 AM CDT [facility] NITRITE Negative Negative 09/06/2023 7:31 AM CDT [facility] LEUKOCYTE ESTERASE Trace(A) Negative 09/06/2023 7:31 AM CDT [facility] Urine URINE SPECIMEN / Unknown Non-Blood / Unknown 09/06/2023 7:22 AM CDT 09/06/2023 7:22 AM CDT Phylicia Yip DO URINE [facility] [address] [place] [address], * SCAN-CT INTERPRETATION (08/11/2023 12:00 AM CDT) Anatomical Region Laterality Modality Other Scanner OTHER * SCAN CORRESP-LABORATORY RESULTS (07/13/2023 8:32 AM CDT) Narrative 07/13/2023 8:32 AM CDT Ordered by an unspecified provider. Other Clinical Staff OTHER * SCAN-COLONOSCOPY (01/31/2023 12:00 AM CDT) Scanner OTHER * (ABNORMAL) LIPID PANEL W REFLEX MEASURED LDL (10/01/2022 1:35 PM CDT) CHOLESTEROL,TOTAL 98(L) 100 - 199 mg/dL 10/02/2022 12:32 AM CDT [facility] [employer] [facility] Comment: Cholesterol, Total Reference Ranges Desirable <200 mg/dL Borderline 200-239 mg/dL High >=240 mg/dL TRIGLYCERIDES 97 <150 mg/dL 10/02/2022 12:32 AM CDT [facility] HDL CHOLESTEROL 29(L) >40 mg/dL 12:32 AM CDT [facility] NON-HDL CHOLESTEROL 69 <145 mg/dl 10/02/2022 12:32 AM CDT [facility] CHOL/HDL RATIO 3.38 <4.50 10/02/2022 12:32 AM CDT [facility] LDL CHOLESTEROL 50 <=130 mg/dL 10/02/2022 12:32 AM CDT [facility] VLDL CHOLESTEROL 19 <=30 mg/dL 10/02/2022 12:32 AM CDT [facility] PROVIDER ORDERED STATUS RANDOM 10/02/2022 12:32 AM CDT [facility] Blood BLOOD SPECIMEN / Unknown Venipuncture / Unknown 10/01/2022 1:35 PM CDT 10/01/2022 1:35 PM CDT Grzegorz Wiggins MD CHEMISTRY [facility] [address] [place] [address], * ANTI HCV (12/08/2021 9:26 AM CDT) HEPATITIS C ANTIBODY Non-React nicho Non-React nicho 12/08/2021 7:57 PM CDT [facility] Comment:Antibodies to HCV no t detected; does not exclude the possibility of exposure to HCV. Blood BLOOD SPECIMEN / Unknown Venipuncture / Unknown 12/08/2021 9:26 AM CDT 12/08/2021 9:26 AM CDT Grzegorz Wiggins MD SEND OUTS [facility] [address] [place] [address], [place] * CT ABDOMEN PELVIS STONE PROTOCOL WO (04/15/2021 12:00 AM SAP TECHNICAL ARCHITECT) Anatomical Region Laterality Modality Abdomen, Pelvis, AORTA, [...] Preferences, Provider to review later Care Teams Call Center Agent Relationship Specialty Start Date End Date Grzegorz Wiggins MD Janis Gaytanerson [place] [id number] PCP - General Family Practice 04/05/19 [place] [id number] [place] [address] 02/01/22
--- OUTSIDE RECORDS SUMMARY | 2023-10-11 12:41 | XMS_ITS | Encounter Summary ---
Author Organization [facility] Address [address] [place] [address] Care Team Providers Care Lunch Cook Name Role Phone Elsewhere, Pcp Primary Care Provider Unavailabl e Encounter Details Date Type Department Care Team (Late st Contact Info) Description 08/09/2023 CPAP Download Remote Patient Monitoring [facility] [address] [place] [address] [facility], Provider Social History Tobacco Use Types Packs/Day Years Used Date Smoking Tobacco: Former Cigarettes 2 18 0 09/16/1966 - 06/30/1984 Passive Smoke Exposure: Past Smokeless Tobacco: Never Alcohol Use Standard Drinks/Week Comments Not Currently 0 (1 standard drink = 0.6 oz pur e alcohol) rarely, one or two a year [facility] Utilities Answer Date Recorded In the past 12 months has [facility] [employer], gas, oil, or water [employer] threatened to shut off services in your [...] How often do you attend chur or bahai services? More than 4 times per year 12/31/2021 Do you belong to any clubs o r organizations such as latter-day groups, unions, fraternal or athletic groups, or [...] and heating? Not hard at all 02/11/2023 [facility] of Occupat ional Health - Occupational [...] your living situation today? I have a [facility] place to live 05/12/2023 Education Answer Date Recorded What is the highest level of school you have completed or the highest degree you have received? 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
--- OUTSIDE RECORDS SUMMARY | 2023-10-11 12:41 | XMS_ITS | Encounter Summary ---
Author Organization [facility] Address [address] [place] [address] Care Team Providers Care Gold Reclaimer Name Role Phone Elsewhere, Pcp Primary Care Provider Unavailabl e Encounter Details Date Type Department Care Team (Late st Contact Info) Description 07/09/2023 CPAP Download Remote Patient Monitoring [facility] [address] [place] [address] [facility], Provider Social History Tobacco Use Types Packs/Day Years Used Date Smoking Tobacco: Former Cigarettes 2 18 0 09/16/1966 - 06/30/1984 Passive Smoke Exposure: Past Smokeless Tobacco: Never Alcohol Use Standard Drinks/Week Comments Not Currently 0 (1 standard drink = 0.6 oz pur e alcohol) rarely, one or two a year [facility] Utilities Answer Date Recorded In the past 12 months has e [employer], gas, oil, or water [employer] threatened to shut off services in your [...] How often do you attend chur or quaker services? More than 4 times per year 12/31/2021 Do you belong to any clubs o r organizations such as restorationism groups, unions, fraternal or athletic groups, or [...] and heating? Not hard at all 02/11/2023 [facility] of Occupat ional Health - Occupational [...] your living situation today? I have a [facility] place to live 05/12/2023 Education Answer Date Recorded What is the highest level of school you have completed or the highest degree you have received? 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
--- OUTSIDE RECORDS SUMMARY | 2023-10-11 12:41 | XMS_ITS | Encounter Summary ---
Author Organization [facility] Address [address] [place] [address] Care Team Providers Care Music Professionals Name Role Phone Eli Rondon APRN, C.NBri., R.N. Primary Care Provider Reason for Visit * Reason Onset Date Comments Appt Video 06/06/2023 Encounter Details Date Type Department Care Team (Late st Contact Info) Description 06/06/2023 Clinical Communication Department of Oncology in [place], [place] [address] [place] [phone] Brenda Delgadillo M.D. [address] [place] [phone] Appt Video Social History Tobacco Use Types Packs/Day Years Used Date Smoking Tobacco: Former Cigarettes 2 18 0 09/16/1966 - 06/30/1984 Passive Smoke Exposure: Past Smokeless Tobacco: Never Alcohol Use Standard Drinks/Week Comments Not Currently 0 (1 standard drink = 0.6 oz pur e alcohol) rarely, one or two a year [facility] Utilities Answer Date Recorded In the [...] How often do you attend chur or anabaptism services? More than 4 times per year 12/31/2021 Do you belong to any clubs o r organizations such as hinduism groups, unions, fraternal or athletic groups, or [...] and heating? Not hard at all 02/11/[address] [facility] of Occupat ional Health - Occupational Stress [...] your living situation today? I have a [facility] place to live 05/12/2023 Education Answer Date Recorded What is the highest level of school you have completed or the highest degree you have received? Bachelor's degree (e.g., BA, AB, BS) 09/20/2018 Sex and Gender Information Value Date Recorded Sex Assigned at Male 06/14/2018 8:36 PM ANCILLARY SERVICES MANAGER Gender Identity Male 10/11/2022 10:17 PM CDT Sexual Orientation Choose not to disclose 2019 1:31 PM ANCILLARY SERVICES MANAGER documented as of this encounter Miscellaneous Notes * Telephone Encounter - Brenda Delgadillo M.D. - 06/08/2023 11:42 AM CST Video consult is okay in this case. But moving forward, please be aware that for most new patients,we do need in-person visit! LLARY SERVICES MANAGER documented in this encounter Plan of Treatment Not on file documented as of this encounter Visit Diagnoses Not on filedocumented in this encounter Additional Health Concerns Assessment Noted Time PHQ-9 Depression Total Score: 7 09/04/19 16 9:47 AM CDT documented as of this encounter Care Teams Music Professionals Relationship Specialty Start Date End Date Eli Rondon APRN, C.N.P., R.N. [address] [place] [phone] PCP - General Family Medicine 04/27/23 07/07/23 documented as of this encounter
--- OUTSIDE RECORDS SUMMARY | 2023-10-11 12:41 | XMS_ITS | Encounter Summary ---
Author Organization [facility] Address [address] [place] [address] Care Team Providers Care Payroll Machine Operator Name Role Phone Elsewhere, Pcp Primary Care Provider Unavailabl e Encounter Details Date Type Department Care Team (Late st Contact Info) Description 06/08/2023 CPAP Download Remote Patient Monitoring [facility] [address] [place] [address] [facility], Provider Social History Tobacco Use Types Packs/Day Years Used Date Smoking Tobacco: Former Cigarettes 2 18 0 09/16/1966 - 06/30/1984 Passive Smoke Exposure: Past Smokeless Tobacco: Never Alcohol Use Standard Drinks/Week Comments Not Currently 0 (1 standard drink = 0.6 oz pur e alcohol) rarely, one or two a year [facility] Utilities Answer Date Recorded In the past 12 months has [facility] [employer], gas, oil, or water [employer] threatened to shut off services in your [...] How often do you attend chur or catholic services? More than 4 times per year 12/31/2021 Do you belong to any clubs o r organizations such as buddhism groups, unions, fraternal or athletic groups, or [...] and heating? Not hard at all 02/11/2023 [facility] of Occupat ional Health - Occupational Stress [...] your living situation today? I have a [facility] place to live 05/12/2023 Education Answer Date Recorded What is the highest level of school you have completed or the highest degree you have received? Bachelor's degree (e.g., BA, AB, BS) 09/20/2018 Sex and Gender Information Value Date Recorded Sex Assigned at Male 06/14/2018 8:36 PM METAL FURNITURE POLISHER Gender Identity Male 10/11/2022 10:17 PM CDT Sexual Orientation Choose not to disclose 2019 1:31 PM METAL FURNITURE POLISHER documented as of this encounter Plan of Treatment Not on file documented as of this encounter Visit Diagnoses Not on filedocumented in this encounter Additional Health Concerns Assessment Noted Time PHQ-9 Depression Total Score: 7 09/04/19 16 9:47 AM CDT documented as of this encounter Care Teams Payroll Machine Operator Relationship Specialty Start Date End Date Elsewhere, Pcp PCP - General Internal Medicine 07/08/23 documented as of this encounter
--- OUTSIDE RECORDS SUMMARY | 2023-10-11 12:41 | XMS_ITS | Encounter Summary ---
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 [address] [place] [address] [facility] Referral ID Status Reason Start Date Expiration Date Visits Re quested Visits Authorized [id number] Closed 06/03/2023 06/02/2024 1 1 Encounter Details Date Type Department Care Team (Latest Contact Info) Description 08/08/2023 1:06 PM CDT - 08/08/2023 11:59 PM CDT Hospital Encounter Department of Radiology, [facility], in [place], [place] [address] [place] [address] Mario Alberto Navarro P.A.-C., M.S. [address] [place] [address] Wilner Casas M.D. 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 More than 4 times per year 12/31/2021 Do you belong to any clubs o r organizations such as jewish groups, unions, fraternal or athletic groups, or [...] Not hard at all 02/11/2023 [facility] of Occupat ional Health - Occupational Stress [...] Sex Assigned at Male 06/14/2018 8:36 PM ROTARY FURNACE TENDER Gender Identity Male 10/11/2022 10:17 PM CDT Sexual Orientation Choose not to disclose 2019 1:31 PM ROTARY FURNACE TENDER documented as of this encounter Last Filed [...] Injection Right (08/08/2023 2:08 PM CDT) Impressions [id number] - 08/08/2023 2:43 PM CDT Fluoroscopically-guided transforaminal epidural steroid injection. NR Narrative [id number] - 08/08/2023 2:43 PM CDT EXAM: FL [...] felt to best approximate that of an [id number]. Prior right L4 injection did not provide [...] Navarro P.A.-C., M.S. IMG FLUO ROSCOPY PROCEDURES [id number] NA documented in this encounter Visit Diagnoses [...] documented as of this encounter Care Teams Vp Cardiovascular Relationship Specialty Start Date End Date Elsewhere, Pcp PCP - General Internal Medicine 07/08/23 documented as of this encounter
--- OUTSIDE RECORDS SUMMARY | 2023-10-11 12:41 | XMS_ITS | Encounter Summary ---
Author Organization [facility] Address [address] [place] [address] Care Team Providers Care Ship'S Electronic Warfare Officer Name Role Phone Elsewhere, Pcp Primary Care Provider Unavailabl e Encounter Details Date Type Department Care Team (Late st Contact Info) Description 04/07/2023 CPAP Download Remote Patient Monitoring [facility] [address] [place] [address] [facility], Provider Social History Tobacco Use Types Packs/Day Years Used Date Smoking Tobacco: Former Cigarettes 2 18 0 09/16/1966 - 06/30/1984 Passive Smoke Exposure: Past Smokeless Tobacco: Never Alcohol Use Standard Drinks/Week Comments Not Currently 0 (1 standard drink = 0.6 oz pur e alcohol) rarely, one or two a year [facility] Utilities Answer Date Recorded In the past 12 months has e [employer], gas, oil, or water [employer] threatened to shut off services in your [...] How often do you attend chur or orthodoxy services? More than 4 times per year [...] Not hard at all 02/11/2023 [facility] of Occupat ional Health - [...] your living situation today? I have a [facility] place to live 05/12/2023 Education Answer Date Recorded What is the highest level of school you have completed or the highest degree you have received? Bachelor's degree (e.g., BA, AB, BS) 09/20/2018 Sex and Gender Information Value Date Recorded Sex Assigned at Male 06/14/2018 8:36 PM DEV TECHNICAL MGR Gender Identity Male 10/11/2022 10:17 PM CDT Sexual Orientation Choose not to disclose 2019 1:31 PM DEV TECHNICAL MGR documented as of this encounter Plan of Treatment Not on file documented as of this encounter Visit Diagnoses Not on filedocumented in this encounter Additional Health Concerns Infection Onset Date Last Indicated Resolved Time COVID19 Pending 04/18/2023 04/18/2023 04/18/2023 3 :59 PM DEV TECHNICAL MGR COVID19 Pending 05/15/2023 05/15/2023 05/15/2023 1 1:56 PM DEV TECHNICAL MGR COVID19 05/15/2023 05/15/2023 06/04/2023 6:10 AM DEV TECHNICAL MGR Assessment Noted Time PHQ-9 Depression Total Score: 7 09/04/19 16 9:47 AM CDT documented as of this encounter Care Teams Ship'S Electronic Warfare Officer Relationship Specialty Start Date End Date Elsewhere, Pcp PCP - General Internal Medicine 07/08/23 documented as of this encounter
--- OUTSIDE RECORDS SUMMARY | 2023-10-11 12:41 | XMS_ITS | Encounter Summary ---
Author Organization [facility] Address [address] [place] [address] Care Team Providers Care School Operations Manager Name Role Phone Elsewhere, Pcp Primary Care Provider Unavailabl e Encounter Details Date Type Department Care Team (Latest Contact Info) Description 05/04/2023 Intake [facility] Social History Tobacco Use Types Packs/Day Years Used Date Smoking Tobacco: Former Cigarettes 2 18 0 09/16/1966 - 06/30/1984 Passive Smoke Exposure: Past Smokeless Tobacco: Never Alcohol Use Standard Drinks/Week Comments Not Currently 0 (1 standard drink = 0.6 oz pur e alcohol) rarely, one or two a year [facility] Utilities Answer Date Recorded In the past 12 months has e electric, gas, oil, or water [employer] threatened to shut off services in your [...] often do you attend chur ch or church services? More than 4 times per year 12/31/2021 Do you belong to any clubs o r organizations such as hindu groups, unions, fraternal or athletic groups, or [...] and heating? Not hard at all 02/11/2023 [facility] of Occupat ional Health - Occupational [...] your living situation today? I have a [facility] place to live 04/22/2023 Education Answer Date Recorded What is the highest level of school you have completed or the highest degree you have received? Bachelor's degree (e.g., BA, AB, BS) 09/20/2018 Sex and Gender Information Value Date Recorded Sex Assigned at Male 06/14/2018 8:36 PM PET FOOD DEBONER Gender Identity Male 10/11/2022 10:17 PM CDT Sexual Orientation Choose not to disclose 2019 1:31 PM PET FOOD DEBONER documented as of this encounter Plan of Treatment Not on file documented as of this encounter Visit Diagnoses Not on filedocumented in this encounter Additional Health Concerns Infection Onset Date Last Indicated Resolved Time COVID19 Pending 05/15/2023 05/15/2023 05/15/2023 1 1:56 PM PET FOOD DEBONER COVID19 05/15/2023 05/15/2023 06/04/2023 6:10 AM PET FOOD DEBONER Assessment Noted Time PHQ-9 Depression Total Score: 7 09/04/19 16 9:47 AM CDT documented as of this encounter Care Teams School Operations Manager Relationship Specialty Start Date End Date Elsewhere, Pcp PCP - General Internal Medicine 07/08/23 documented as of this encounter
--- OUTSIDE RECORDS SUMMARY | 2023-10-11 12:41 | XMS_ITS | Encounter Summary ---
Author Organization [facility] Address [address] [place] [address] Care Team Providers Care Booster Assembler Name Role Phone Eli Rondon APRN, C.NBri., R.N. Primary Care Provider Reason for Visit * Reason Comments Routine Long-Term Visit Discharge vis it. Encounter Details Date Type Department Care Team (Latest Contact Info) Description 07/05/2023 10:00 AM CDT External Outreach [facility] [place] [address] [place] [phone] John Lerner M.D. [address] [place] [address] Colectomy Partial Status Post (Primary Dx); Malignant [...] alcohol) rarely, one or two a year [facility] Utilities Answer Date Recorded In [...] often do you attend chur ch or taoist services? More than 4 times per year 12/31/2021 Do you belong to any clubs o r organizations such as sabianism groups, unions, fraternal or athletic groups, or [...] and heating? Not hard at all 02/11/2023 [facility] of Occupat ional Health - Occupational Stress [...] Sex Assigned at Male 06/14/2018 8:36 PM CURATORIAL SPECIALIST Gender Identity Male 10/11/2022 10:17 PM CDT Sexual Orientation Choose not to disclose 2019 1:31 PM CURATORIAL SPECIALIST documented as of this encounter Last Filed [...] Body Mass Index 55.11 05/11/2023 2:15 PM CURATORIAL SPECIALIST documented in this encounter Progress Notes * John Lerner M.D. - 07/05/2023 10:00 AM CDT SUBJECTIVE CHIEF COMPLAINT / REASON FOR VISIT I am asked to see jessika Charlton [place], [place] for a Discharge visit. Visit Type: [...] for discharge visit. He was admitted to [facility] on 05/16/2023 for short-term rehabilitation. He was admitted to [facility] from 05/11/2023 through 05/16/2023 secondary to colon [...] Care unit for short-term rehabilitation. During his skilled nursing stay, he was tested positive for COVID-19 infection. However he was asymptomatic without upper respiratory infection symptoms. He followed skilled nursing isolation protocol accordingly. He has history of type 2 diabetes. During the hospitalization at [facility], his Lantus dose was reduced. He was noted to have hyperglycemia on his skilled nursing stay. We gradually adjustedthe Lantus dose accordingly. [...] increasing leg edema whenhe was in the skilled nursing. He was taking spironolactone 25 mg once [...] 2 weeks after being discharged from the half-way facility. 7. Right heel open wound. The [...] He follows up with orthopedic service at [facility] for managing his pain. We discussed regarding [...] his PCP in 2 weeks for post skilled nursing stay. 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 [address] [place] [phone] PCP - General Family Medicine 04/27/23 07/07/23 documented as of this encounter
--- OUTSIDE RECORDS SUMMARY | 2023-10-11 12:41 | XMS_ITS | Encounter Summary ---
Author Organization [facility] Address [address] [place] [address] Care Team Providers Care Integrity Consultant Name Role Phone Elsewhere, Pcp Primary Care Provider Unavailabl e Encounter Details Date Type Department Care Team (Late st Contact Info) Description 10/10/2023 CPAP Download Remote Patient Monitoring [facility] [address] [place] [address] [facility], Provider Social History Tobacco Use Types Packs/Day Years Used Date Smoking Tobacco: Former Cigarettes 2 18 0 09/16/1966 - 06/30/1984 Passive Smoke Exposure: Past Smokeless Tobacco: Never Alcohol Use Standard Drinks/Week Comments Not Currently 0 (1 standard drink = 0.6 oz pur e alcohol) rarely, one or two a year [facility] Utilities Answer Date Recorded In the past 12 months has [facility] [employer], gas, oil, or water [employer] threatened to shut off services in your [...] How often do you attend chur or baptist services? More than 4 times per year 12/31/2021 Do you belong to any clubs o r organizations such as faith groups, unions, fraternal or athletic groups, or [...] and heating? Not hard at all 02/11/2023 [facility] of Occupat ional Health - [...] your living situation today? I have a [facility] place to live 05/12/2023 Education Answer Date Recorded What is the highest level of school you have completed or the highest degree you have received? Bachelor's degree (e.g., BA, AB, BS) 09/20/2018 Sex and Gender Information Value Date Recorded Sex Assigned at Male 06/14/2018 8:36 PM LEASING MANAGER Gender Identity Male 10/11/2022 10:17 PM CDT Sexual Orientation Choose not to disclose 2019 1:31 PM LEASING MANAGER documented as of this encounter Plan of Treatment Not on file documented as of this encounter Visit Diagnoses Not on filedocumented in this encounter Additional Health Concerns Assessment Noted Time PHQ-9 Depression Total Score: 7 09/04/19 16 9:47 AM CDT documented as of this encounter Care Teams Integrity Consultant Relationship Specialty Start Date End Date Elsewhere, Pcp PCP - General Internal Medicine 07/08/23 documented as of this encounter
--- OUTSIDE RECORDS SUMMARY | 2023-10-11 12:41 | XMS_ITS | Encounter Summary ---
Author Organization [facility] Address [address] [place] [address] Care Team Providers Care Driver Examiner Name Role Phone Eli Rondon APRN C.N.P., R.N. Primary Care Provider Encounter Details Date Type Department Care Team (Late st Contact Info) Description 05/08/2023 CPAP Download Remote Patient Monitoring [facility] [address] [place] [id number] [facility], Provider Social History Tobacco Use Types Packs/Day Years Used Date Smoking Tobacco: Former Cigarettes 2 18 0 09/16/1966 - 06/30/1984 Passive Smoke Exposure: Past Smokeless Tobacco: Never Alcohol Use Standard Drinks/Week Comments Not Currently 0 (1 standard drink = 0.6 oz pur e alcohol) rarely, one or two a year [facility] Utilities Answer Date Recorded In the past 12 months has [employer], gas, oil, or water [employer] threatened to shut off services in your [...] How often do you attend chur or jainism services? More than 4 times [...] and heating? Not hard at all 02/11/2023 [facility] of Occupat ional Health - Occupational Stress [...] Sex Assigned at Male 06/14/2018 8:36 PM COMPUTER OPERATIONS TECHNICIAN Gender Identity Male 10/11/2022 10:17 PM CDT Sexual Orientation Choose not to disclose 2019 1:31 PM COMPUTER OPERATIONS TECHNICIAN documented as of this encounter Plan of Treatment Not on file documented as of this encounter Visit Diagnoses Not on filedocumented in this encounter Additional Health Concerns Infection Onset Date Last Indicated Resolved Time COVID19 Pending 05/15/2023 05/15/2023 05/15/2023 1 1:56 PM COMPUTER OPERATIONS TECHNICIAN COVID19 05/15/2023 05/15/2023 06/04/2023 6:10 AM COMPUTER OPERATIONS TECHNICIAN Assessment Noted Time PHQ-9 Depression Total Score: 7 09/04/19 16 9:47 AM CDT documented as of this encounter Care Teams Driver Examiner Relationship Specialty Start Date End Date Eli Rondon, BETHANY, C.N.P., R.N. [address] [place] [address] PCP - General Family Medicine 04/27/23 07/07/23 documented as of this encounter
--- OUTSIDE RECORDS SUMMARY | 2023-10-11 12:41 | XMS_ITS | Encounter Summary ---
Author Organization [facility] Address [address] [place] [id number] Care Team Providers Care Cardiothoracic Physiotherapist Name Role Phone Elsewhere, Pcp Primary Care Provider Unavailabl e Encounter Details Date Type Department Care Team (Late st Contact Info) Description 06/29/2023 Clinical Communication Department of Oncology in [place], [place] [address] [place] [phone] Zan Rodriguez, Breanne.-C., M.S. [address] [place] [phone] Social History Tobacco Use Types Packs/Day Years Used Date Smoking Tobacco: Former Cigarettes 2 18 0 09/16/1966 - 06/30/1984 Passive Smoke Exposure: Past Smokeless Tobacco: Never Alcohol Use Standard Drinks/Week Comments Not Currently 0 (1 standard drink = 0.6 oz pur e alcohol) rarely, one or two a year [facility] Utilities Answer Date Recorded In the [...] week 12/31/2021 How often do you attend [facility] or [employer] services? More than 4 times per year 12/31/2021 Do you belong to any clubs o r organizations such as temple groups, unions, fraternal or athletic groups, or [...] and heating? Not hard at all 02/11/2023 [facility] of Occupat ional Health - Occupational [...] your living situation today? I have a [facility] place to live 05/12/2023 Education Answer Date Recorded What is the highest level of school you have completed or the highest degree you have received? Bachelor's degree (e.g., BA, AB, BS) 09/20/2018 Sex and Gender Information Value Date Recorded Sex Assigned at Male 06/14/2018 8:36 PM PROFESSOR OF POLITICAL SCIENCE Gender Identity Male 10/11/2022 10:17 PM CDT Sexual Orientation Choose not to disclose 2019 1:31 PM PROFESSOR OF POLITICAL SCIENCE documented as of this encounter Miscellaneous Notes [...] documented as of this encounter Care Teams Cardiothoracic Physiotherapist Relationship Specialty Start Date End Date Elsewhere, Pcp PCP - General Internal Medicine 07/08/23 documented as of this encounter
--- OUTSIDE RECORDS SUMMARY | 2023-10-11 12:41 | XMS_ITS | Encounter Summary ---
Author Organization [facility] Address [address] [place] [id number] Care Team Providers Care Delivery Crew Member Name Role Phone Elsewhere, Pcp Primary Care Provider Unavailabl e Encounter Details Date Type Department Care Team (Late st Contact Info) Description 09/09/2023 CPAP Download Remote Patient Monitoring [facility] [address] [place] [address] [facility], Provider Social History Tobacco Use Types Packs/Day Years Used Date Smoking Tobacco: Former Cigarettes 2 18 0 09/16/1966 - 06/30/1984 Passive Smoke Exposure: Past Smokeless Tobacco: Never Alcohol Use Standard Drinks/Week Comments Not Currently 0 (1 standard drink = 0.6 oz pur e alcohol) rarely, one or two a year [facility] Utilities Answer Date Recorded In the past 12 months has [facility], gas, oil, or water [employer] threatened to shut off services in your [...] any clubs o r organizations such as yazdanism groups, unions, fraternal or athletic groups, or [...] and heating? Not hard at all 02/11/2023 [facility] of Occupat ional Health - Occupational [...] your living situation today? I have a [facility] place to live 05/12/2023 Education Answer Date Recorded What is the highest level of school you have completed or the highest degree you have received? Bachelor's degree (e.g., BA, AB, BS) 09/20/2018 Sex and Gender Information Value Date Recorded Sex Assigned at Male 06/14/2018 8:36 PM LAND EXAMINER Gender Identity Male 10/11/2022 10:17 PM CDT Sexual Orientation Choose not to disclose 2019 1:31 PM LAND EXAMINER documented as of this encounter Plan of Treatment Not on file documented as of this encounter Visit Diagnoses Not on filedocumented in this encounter Additional Health Concerns Assessment Noted Time PHQ-9 Depression Total Score: 7 09/04/19 16 9:47 AM CDT documented as of this encounter Care Teams Delivery Crew Member Relationship Specialty Start Date End Date Elsewhere, Pcp PCP - General Internal Medicine 07/08/23 documented as of this encounter
[2023-10-11 13:14] LABS: Albumin* 3.6 g/dL (3.3-5.0); Chloride* 108 mmol/L (96-114); Potassium* 4.2 mmol/L (3.6-5.1); Sodium* 140 mmol/L (135-149)
[2023-10-11 13:17] LABS: Alanine Aminotransferase* 34 U/L (4-50); Alkaline Phosphatase* 96 U/L (40-150); Anion Gap 9 mEq/L (7-15); Aspartate Amino Transferase* 29 U/L (12-35); Bilirubin Total* 0.4 mg/dL (0.1-1.5); Blood Urea Nitrogen* 36 mg/dL (7-30); Carbon Dioxide* 23 mmol/L (20-32); Creatinine* 1.7 mg/dL (0.5-1.5); Est. Creatinine Clearance* 50.96; Estimated Glomerular Filt Rate 43 ml/min; Glucose* 120 mg/dL (60-115); Total Protein* 5.7 g/dL (6.0-8.3)
[2023-10-11 13:18] LABS: Calcium* 8.6 mg/dL (8.4-10.6)
[2023-10-11 13:27] LABS: NT Pro B Type NatriureticPept* 275 pg/mL
[2023-10-11 13:31] LABS: Troponin I* < 0.01 ng/mL (0.01-0.04)
[2023-10-11 14:16] LABS: Basophils Absolute Auto 0.02 K/uL (0.00-0.30); Basophils Percent Auto 0.3 % (0.0-3.0); Eosinophils Absolute Auto 0.22 K/uL (0.00-0.50); Eosinophils Percent Auto 3.1 % (0.0-7.0); Hematocrit 29.2 % (37.0-53.0); Hemoglobin* 8.5 gm/dL (13.5-17.5); Lymphocytes Absolute Auto 1.53 K/uL (0.90-2.90); Lymphocytes Percent Auto 21.3 % (20-44); Mean Corpuscular HGB Conc 29 gm/dL (32-36); Mean Corpuscular Hemoglobin 21 pg (26-34); Mean Corpuscular Volume 74 fL (80-100); Neutrophils Absolute Auto 4.99 K/uL (1.7-7.0); Neutrophils Percent Auto 69.3 % (42.0-72.0); Platelet Count* 255 K/uL (140-440); RDW Coefficient of Variation % 18.6 % (11.5-15.5); Red Blood Count 3.97 m/uL (4.30-5.90); White Blood Count* 7.19 K/uL (4.50-11.00)
[2023-10-11 14:28] LABS: Slide Review Reflex No
--- NOTE | 2023-10-11 19:18 | PC.NURSE ---
Nursing Care Hours: [id number] Pt this shift arrived from ED alert and oriented. calm and cooperative and pleasant. C/o pain to head and back, see assessment. Bradycardic, stable on room air, BP WNL. C/o increased swelling to bilat legs and scrotum. Scrotum observed and is edematous. Bilat legs edematous but non pitting. Groin has yeasty odor and is moist. No signs of redness or yeast infection noted. Pt states he has noticed double vision intermittently for the last few months.
[2023-10-11] MEDS: FUROSEMIDE 10 MG/ML inj 40 MG IVP (19:26)
[2023-10-11 19:28] LABS: Lactate* 2.4 mmol/L (0.5-1.9)
[2023-10-11] MEDS: OMEPRAZOLE 20 MG CAPSULE DR 40 MG PO (19:28)
[2023-10-11] MEDS: glipiZIDE 5 MG TABLET PO (19:28)
[2023-10-11] MEDS: METFORMIN 1,000 MG TABLET 1000 MG PO (19:29)
--- NOTE | 2023-10-11 20:58 | P.IMHP_ITS ---
Hospitalist- H&P: HPI History of Present Illness Time Seen by Provider: 16:30 Date Seen: 10/12/23 Chief complaint: Fall Narrative: Zoltan Olivera is a 72 year old male with a complicated past medical history that includes colon cancer, microcytic anemia, type 2 diabetes mellitus, chronic physical debility and declining functional status, spinal stenosis, chronic lumbar radiculopathy, BRITTNEY, morbid obesity, atrial paroxysmal tachycardia, hypertension, and chronic kidney disease stage 3 who has been in an out of the hospital and rehab for declining functional status and physical debility and presented through the ER today for fall and generalized weakness. He has been at home for a couple of months after his most recent rehab stay. He he had been trying to get stronger so he could be considered for chemotherapy, however he had a recent telehealth appointment with his oncologist who has determined that his poor performance status makes the risks of chemotherapy outweigh the benefits. His prognosis is considered overall to be dismal due to other comorb idities. He tells me that while at home he has been declining and getting weaker. He has tried to put on a brief face for his , and tells me that he probably has not been honest with her about how weak he has been getting. In the last couple months he has also had increasing fluid buildup on both lower extremities. He was started on Lasix but he was having to go to the bathroom frequently and this was wearing him out, so the dose was decreased. The swelling has been getting worse and he now has swelling in his scrotum as well that makes it more difficult to use a urinal. He also complains of pain in both knees and generalized weakness. When he gets this way his leg start giving out. This was an issue when I took care of him in the hospital last February as well. Today his legs gave out and he fell. He hit his head but did not lose consciousness. He also injured his low back. He complains of a diffuse headache since falling. He denies any blurry vision. He denies any chest pain. He does feel short of breath with about 10 ft of ambulation. He denies orthopnea or paroxysmal nocturnal dyspnea. Review of Systems Status of ROS: Reports: 10 or more systems reviewed and unremarkable except as noted in History and below [facility] Medical History (Updated 10/12/23 @ 00:41 by Monique Johnson MD) Hypocalcemia ?E83.51 - Hypocalcemia (ICD-10) Symptomatic anemia ?D64.9 - Anemia, unspecified (ICD-10) Diabetes mellitus type 2 in obese ?E11.69 - Type 2 diabetes mellitus with other specified complication (ICD-10) ?E66.9 - Obesity, unspecified (ICD-10) Syncope ?R55 - Syncope and collapse (ICD-10) Benign prostatic hyperplasia ?N40.0 - Benign prostatic hyperplasia without lower urinary tract symptoms (ICD-10) Primary hypothyroidism ?E03.9 - Hypothyroidism, unspecified (ICD-10) Prostate nodule ?N40.2 - Nodular prostate without lower urinary tract symptoms (ICD-10) Hyperlipidemia ?E78.5 - Hyperlipidemia, unspecified (ICD-10) Chronic kidney disease ?N18.9 - Chronic kidney disease, unspecified (ICD-10) Essential hypertension ?I10 - Essential (primary) hypertension (ICD-10) Uric acid renal calculus ?N20.0 - Calculus of kidney (ICD-10) Nephrolithiasis ?N20.0 - Calculus of kidney (ICD-10) History of urinary tract infection ?Z87.440 - Personal history of urinary (tract) infections (ICD-10) Recurrent major depressive disorder ?F33.9 - Major depressive disorder, recurrent, unspecified (ICD-10) Chronic low back pain ?M54.50 - Low back pain, unspecified (ICD-10) ?G89.29 - Other chronic pain (ICD-10) Declining functional status ?R53.81 - Other malaise (ICD-10) Iron deficiency anemia ?D50.9 - Iron deficiency anemia, unspecified (ICD-10) Chronic idiopathic constipation ?K59.04 - Chronic idiopathic constipation (ICD-10) Atrial paroxysmal tachycardia ?I47.1 - Supraventricular tachycardia (ICD-10) Morbid obesity with BMI of 50.0-59.9, adult ?E66.01 - Morbid (severe) obesity due to excess calories (ICD-10) ?Z68.43 - Body mass index [BMI] 50.0-59.9, adult (ICD-10) Physical debility ?R53.81 - Other malaise (ICD-10) Diabetic peripheral neuropathy associated with type 2 diabetes mellitus ?E11.42 - Type 2 diabetes mellitus with diabetic polyneuropathy (ICD-10) Spinal stenosis, lumbar region without neurogenic claudication ?M48.061 - Spinal stenosis, lumbar region without neurogenic claudication (ICD-10) Lumbar radiculopathy, chronic ?M54.16 - Radiculopathy, lumbar region (ICD-10) BRITTNEY (obstructive sleep apnea) ?G47.33 - Obstructive sleep apnea (adult) (pediatric) (ICD-10) Surgical History History of tonsillectomy ?Z90.89 - Acquired absence of other organs (ICD-10) History of arthroscopy of both knees ?Z98.890 - Other specified postprocedural states (ICD-10) History of lumbar laminectomy ?Z98.890 - Other specified postprocedural states (ICD-10) Social History (Updated 10/11/23 @ 21:06 by Monique Johnson MD) Narrative: He lives with his . Frequent hospitalizations and rehab stays over the past year. He has been home for a few months, having trouble with transportation to clinic. Code status is full. is healthcare power of divorce attorney. He does not smoke. He does not drink alcohol. He does not use recreational drugs. What is your current living situation?: I presently have a place to live Problems where you live: no known problems Problems where you live details: NA In the past 12 months, utilities in danger of being shut off: no In past 12 months, lack of transportation kept you from medical appts, meetings, work, or getting things needed for daily living: yes In the past 12 mos, have been you worried that your food would run out before you had money to buy more?: never true In the past 12 mos, the food you bought just didn't last and you didn't have money to buy more?: never true Highest level of school completed/degree received: Bachelor's degree Smoking Status: Former smoker Do you use any of these nicotine containing products: None Second hand tobacco smoke exposure: Yes How often do you have a drink containing alcohol: never How often do you have six or more drinks on one occasion: Never AUDIT-C Alcohol total score: 0 Non-prescribed substance use: denies use Caffeine: No How often does anyone, including family, friends and others, physically hurt you : never How often does anyone, including family, friends and others, insult or talk down to you: never How often does anyone, including family, friends and others, threaten you with harm: never How often does anyone, including family, friends and others, scream or curse at you: never service: No Meds Home Medications and Allergies Home Medications ?Medication ?Instructions ?Recorded ?Confirmed ?Type allopurinol 300 mg tablet 300 mg PO DAILY 10/03/22 10/11/23 History insulin glargine 100 unit/mL (3 38 unit subcut HS 10/03/22 10/11/23 History mL) subcutaneous pen (Lantus Solostar U-100 Insulin) levothyroxine 100 mcg tablet 100 mcg PO DAILY 10/03/22 10/11/23 History levothyroxine 125 mcg tablet 125 mcg PO DAILY 10/03/22 10/11/23 History magnesium oxide 400 mg (241.3 mg 400 mg PO DAILY 10/03/22 10/11/23 History magnesium) tablet pravastatin 80 mg tablet 80 mg PO HS 10/03/22 10/11/23 History tamsulosin 0.4 mg capsule 0.8 mg PO HS 10/03/22 10/11/23 History acetaminophen 500 mg tablet 1,000 mg PO TID PRN 11/28/22 10/11/23 History (Tylenol Extra Strength) duloxetine 30 mg capsule,delayed 30 mg PO BID 11/28/22 10/11/23 History release sodium bicarbonate 650 mg tablet 1,950 mg PO TID 11/28/22 10/11/23 History glipizide 5 mg tablet 5 mg PO BIDWMEAL 01/01/23 10/11/23 History glucosamine-chondroitin 500 mg-400 1 tab PO TID 07/11/23 10/11/23 History mg tablet (Cosamin DS) metformin 500 mg tablet,extended 1,000 mg PO BIDWM 07/11/23 10/11/23 History release 24 hr furosemide 20 mg tablet (Lasix) 20 mg PO BID 08/16/23 10/11/23 History losartan 50 mg tablet 50 mg PO DAILY 10/11/23 10/11/23 History pantoprazole 40 mg tablet,delayed 40 mg PO DAILY 10/11/23 10/11/23 History release pregabalin 150 mg capsule 300 mg PO BID 10/11/23 10/11/23 History spironolactone 25 mg tablet 25 mg PO DAILY 10/11/23 10/11/23 History Allergies Allergy/AdvReac Type Severity Reaction Status Date / Time terazosin Allergy Severe Shortness Verified 10/11/23 14:35 of Breath amoxicillin [From Augmentin] Allergy Mild Diarrhea Verified 10/11/23 14:35 atenolol Allergy Mild Verified 10/11/23 14:35 clavulanic acid Allergy Mild Diarrhea Verified 10/11/23 14:35 [From Augmentin] lisinopril Allergy Unknown Cough Verified 10/11/23 14:35 meperidine [From Demerol] Allergy Unknown nausea Verified 10/11/23 14:35 trospium Allergy Unknown urinary Verified 10/11/23 14:35 retention Exam Narrative: Exam Narrative: General: No acute distress. Awake alert oriented x3. HEENT: Normocephalic atraumatic, pupils equally round and reactive to light and accommodation. Oropharynx clear. Mucous membranes are moist. No cervical lymphadenopathy, thyromegaly or carotid bruits. No JVD. Cardiovascular: Irregularly irregular, bradycardic. No murmurs, gallops, or rubs. Chest: No increased work of breathing. Clear to auscultation bilaterally. No crackles or wheezes. Abdomen: Bowel sounds present. Soft, nondistended, nontender. No hepatosplenomegaly or masses. Extremities: Massive edema 4+ of the lower extremity bilaterally into the buttocks, scrotum, pannus and lower back. no cyanosis or clubbing. Skin: Pallor noted. Candidal rash in the lateral skin folds of the pannus. No jaundice. Neuro: Grossly intact. No focal deficits. Const: Vital Signs, click to edit/add: Vital Signs - 24 hr 10/11/23 10:48 10/11/23 11:25 10/11/23 11:30 Temperature 96.4 F L Pulse Rate 52 L 52 L Pulse Rate [Left P ulse Oximeter] Pulse Rate [Right Pulse Oximeter] 57 L Respiratory Rate 20 Blood Pressure Blood Pressure [Le ft Arm] Blood Pressure [Ri ght Upper Arm] 113/54 L Pulse Oximetry 94 92 91 Oxygen Delivery Me thod Room Air 10/11/23 11:32 10/11/23 11:45 10/11/23 12:00 Temperature Pulse Rate 52 L 51 L 54 L Pulse Rate [Left P ulse Oximeter] Pulse Rate [Right Pulse Oximeter] Respiratory Rate Blood Pressure 127/54 L Blood Pressure [Le ft Arm] Blood Pressure [Ri ght Upper Arm] Pulse Oximetry 92 93 96 Oxygen Delivery Me thod 10/11/23 12:02 10/11/23 12:22 10/11/23 12:30 Temperature Pulse Rate 51 L 57 L 48 L Pulse Rate [Left P ulse Oximeter] Pulse Rate [Right Pulse Oximeter] Respiratory Rate Blood Pressure 121/54 L Blood Pressure [Le ft Arm] Blood Pressure [Ri ght Upper Arm] Pulse Oximetry 96 89 82 L Oxygen Delivery Me thod 10/11/23 12:32 10/11/23 13:02 10/11/23 13:05 Temperature Pulse Rate 47 L 50 L Pulse Rate [Left P ulse Oximeter] Pulse Rate [Right Pulse Oximeter] Respiratory Rate Blood Pressure 95/45 L 94/38 L Blood Pressure [Le ft Arm] Blood Pressure [Ri ght Upper Arm] Pulse Oximetry 92 Oxygen Delivery Me thod 10/11/23 13:16 10/11/23 13:30 10/11/23 13:32 Temperature Pulse Rate 48 L 48 L 52 L Pulse Rate [Left P ulse Oximeter] Pulse Rate [Right Pulse Oximeter] Respiratory Rate Blood Pressure 114/46 L Blood Pressure [Le ft Arm] Blood Pressure [Ri ght Upper Arm] Pulse Oximetry 92 Oxygen Delivery Me thod 10/11/23 13:33 10/11/23 15:04 10/11/23 15:31 Temperature Pulse Rate 52 L Pulse Rate [Left P ulse Oximeter] Pulse Rate [Right Pulse Oximeter] Respiratory Rate Blood Pressure 97/48 L 100/75 Blood Pressure [Le ft Arm] Blood Pressure [Ri ght Upper Arm] Pulse Oximetry 94 Oxygen Delivery Me thod 10/11/23 17:50 10/11/23 17:50 Temperature 97.6 F Pulse Rate Pulse Rate [Left P ulse Oximeter] 50 L Pulse Rate [Right Pulse Oximeter] Respiratory Rate 18 18 Blood Pressure Blood Pressure [Le ft Arm] 126/66 Blood Pressure [Ri ght Upper Arm] Pulse Oximetry 93 93 Oxygen Delivery Me thod Room Air Room Air Hospitalist - H&P: Result Labs Labs: Short CBC 10/11/23 Range/Units 12:34 WBC 7.19 (4.50-11.00) K/uL Hgb 8.5 L (13.5-17.5) gm/dL Hct 29.2 L (37.0-53.0) % Plt Count 255 (140-440) K/uL BMP 10/11/23 12:36 Sodium 140 Potassium 4.2 Chloride 108 Carbon Dioxide 23 BUN 36 H Creatinine 1.7 H Glucose 120 H Calcium 8.6 Cardiac Enzymes 10/11/23 Range/Units 12:36 Troponin I < 0.01 L (0.01-0.04) ng/mL Liver Function 10/11/23 Range/Units 12:36 Total Bilirubin 0.4 (0.1-1.5) mg/dL AST 29 (12-35) U/L ALT 34 (4-50) U/L Alkaline Phosphatase 96 (40-150) U/L Albumin 3.6 (3.3-5.0) g/dL 10/11/2023 EKG: Atrial fibrillation with slow ventricular response with a competing junctional pacemaker, 53 beats per minute. Ordering Physician: Wilner Epps M.D. Date of Service: 10/11/23 Procedure(s): CT cervical spine wo con Accession Number(s): [id number] cc: Grzegorz Wiggins M.D.; Wilner Epps M.D.~ For Patients: As a result of the Cures Act, medical imaging exams and procedure reports are released immediately into your electronic medical record. You may view this report before your referring provider. If you have questions, please contact your health care provider. INDICATION: Fall, neck pain. COMPARISON: None. TECHNIQUE: CT of the cervical spine without contrast. Multiplanar axial, coronal, and sagittal reformats were reconstructed. FINDINGS: No fracture. Straightening of the normal cervical lordosis. No listhesis. 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 Multilevel disc degenerative change. Multilevel facet arthritis. No severe neural foraminal narrowing. No severe central canal stenosis. No destructive bony lesions. No cervical prevertebral soft tissue swelling. IMPRESSION: No acute or traumatic findings on cervical spine CT. Please note that all CT scans at this facility use dose modulation, iterative reconstruction, and/or weight-based dosing when appropriate to reduce radiation dose to as low as reasonably achievable. Dictated by Henny Bright MD @ 10/11/2023 2:43:35 PM (Electronically Signed) Ordering Physician: Wilner Epps M.D. Date of Service: 10/11/23 Procedure(s): CT chest abdomen pelv w con Accession Number(s): [id number] cc: Grzegorz Wiggins M.D.; Wilner Epps M.D.~ For Patients: As a result of the Century Cures Act, medical imaging exams and procedure reports are released immediately into your electronic medical record. You may view this report before your referring provider. If you have questions, please contact your health care provider. INDICATION: Fall, pain. TECHNIQUE: CT chest, abdomen and pelvis acquired with IV contrast. COMPARISON: August 11, 2023. FINDINGS: CHEST: Cardiovascular structures: Heart size is normal. Thoracic aorta and main pulmonary artery are normal in caliber. Mediastinum and xiao: No mass or adenopathy. Lungs and pleura: Lungs and pleural spaces are clear. No suspicious nodules, infiltrates, or effusions. Chest wall and axilla: No mass or adenopathy. Bones: No suspicious bone lesions. Unremarkable for age. ABDOMEN AND PELVIS: Liver: Unremarkable. Gallbladder and bile ducts: Cholelithiasis. No CT evidence of cholecystitis. Pancreas: Severe fatty atrophy of the pancreas. Spleen: Unremarkable. Adrenal glands: Unremarkable. Kidneys: Mild atrophy of the bilateral kidneys. Slightly heterogeneous lesion at the inferior pole of the left kidney measuring 2.2 centimeters in diameter, stable compared to prior from August 11, 2023 and from February 01, 2023 GI tract: Status post hemicolectomy. Anastomosis is unremarkable. No evidence of bowel obstruction. Vascular structures: Unremarkable. Lymph nodes: Prominent external iliac chain lymph nodes. Miscellaneous: Fat containing umbilical hernia. Pelvic Organs: Bladder is unremarkable. Prostate is unremarkable. Bones: No suspicious bone lesions. Unremarkable for age. IMPRESSION: 1. No acute injury identified in the chest, abdomen or pelvis. 2. Cholelithiasis without CT evidence of cholecystitis. 3. Slightly heterogeneous lesion at the inferior pole of the left kidney measuring up to 2.2 centimeters in diameter, stable compared to the prior exam and from February 01, 2023. Consider comparison to remote prior imaging or consider further evaluation with outpatient ultrasound. 4. Stable postsurgical changes from right hemicolectomy. 5. Redemonstrated prominent external iliac chain lymph nodes. Please note that all CT scans at this facility use dose modulation, iterative reconstruction, and/or weight-based dosing when appropriate to reduce radiation dose to as low as reasonably achievable. Dictated by Dario Newman MD @ 10/11/2023 3:04:55 PM (Electronically Signed) Ordering Physician: Wilner Epps M.D. Date of Service: 10/11/23 Procedure(s): CT head/brain wo con Accession Number(s): [id number] cc: Grzegorz Wiggins M.D.; Wilner Epps M.D.~ For Patients: As a result of the Cures Act, medical imaging exams and procedure reports are released immediately into your electronic medical record. You may view this report before your referring provider. If you have questions, please contact your health care provider. INDICATION: Fall, head pain. COMPARISON: None. TECHNIQUE: CT of the brain / head without intravenous contrast. Multiplanar axial, coronal, and sagittal reformats were reconstructed. FINDINGS: No intracranial hemorrhage. Age-related parenchymal volume loss. No acute or subacute cortically based infarct. No mass or mass effect. Normal ventricles. No skull fractures. No worrisome focal bone lesion. IMPRESSION: No acute intracranial findings. Please note that all CT scans at this facility use dose modulation, iterative reconstruction, and/or weight-based dosing when appropriate to reduce radiation dose to as low as reasonably achievable. Dictated by Henny Bright MD @ 10/11/2023 2:40:45 PM (Electronically Signed) Ordering Physician: Wilner Epps M.D. Date of Service: 10/11/23 Procedure(s): CT lumbar spine wo con Accession Number(s): [id number] cc: Grzegorz Wiggins M.D.; Wilner Epps M.D.~ For Patients: As a result of the Cures Act, medical imaging exams and procedure reports are released immediately into your electronic medical record. You may view this report before your referring provider. If you have questions, please contact your health care provider. INDICATION: Lower back pain, fall. COMPARISON: Same day CT chest abdomen and pelvis TECHNIQUE: CT of the lumbar spine is reformatted from the same-day CT of the chest abdomen and pelvis. Multiplanar axial, coronal, and sagittal reformats were reconstructed. FINDINGS: No lumbar spine fracture. No listhesis. Advanced multilevel disc degenerative change. Advanced multilevel facet arthritis. Multilevel bridging osteophytes. Multilevel neural foraminal narrowing. Effacement of the thecal sac at multiple levels below the conus medullaris. No destructive bony lesions. For visceral findings please see dedicated CT of the abdomen and pelvis. IMPRESSION: No acute or traumatic findings on lumbar spine CT. Please note that all CT scans at this facility use dose modulation, iterative reconstruction, and/or weight-based dosing when appropriate to reduce radiation dose to as low as reasonably achievable. Dictated by Henny Bright MD @ 10/11/2023 2:46:19 PM (Electronically Signed) Assessment and Plan Assessment and plan (1) Fall: Status: Acute (2) Generalized weakness: Status: Acute (3) TARA (acute kidney injury): Problem comment: - On CKD stage 3. Suspect cardiorenal. Hold metformin, losartan. Status: Acute (4) Edema, peripheral: Status: Acute (5) Scrotal edema: Status: Acute (6) Atrial fibrillation: Problem comment: - afib with bradycardia - was previously diagnosed with atrial fibrillation many years ago for which he was on Eliquis. He had a cardiovascular workup in 2021 which included heart monitor and event monitor as to [facility] in the cardiology ultimately saw atrial tachycardia and occasional atrial arrhythmia, but said it was unclear if atrial fibrillation was actually present and thought that Eliquis could be discontinued in light of GI bleeding. Although patient has since had surgery to remove adenocarcinoma which was the suspected source of GI bleeding, he continues to have microcytic anemia. I have ordered iron studies and a Hemoccult stool. I discussed anticoagulation with the patient, but have deferred this decision until we have iron studies and stool Hemoccult since a GI bleed could be catastrophic for him given his hemoglobin is 8.5 and is likely contributing to his profound weakness. - he is on diltiazem which has likely given him rate control, however he is bradycardic, and this may be contributing to weakness and heart failure symptoms. I have decreased diltiazem dose and will have him on cardiac monitoring. - last ECHO was 10 months ago and was a limited exam. Irregular HR noted on that study. Due to new LE edema and possibly new afib, will obtain ECHO. Status: Acute (7) Lactate blood increased: Problem comment: - Elevated lactate of unclear etiology, suspect due to malignancy. He is not septic, he is not dehydrated, rather volume overloaded. He is on metformin chronically, but he is not acidotic. Status: Acute (8) Diabetes mellitus type 2 in obese: Problem comment: - with peripheral neuropathy - Adequate control. Continue usual DM medications. - glucose checks ACHS, insulin sliding scale - outpatient follow-up with PCP Status: Chronic (9) Adenocarcinoma, colon: Problem comment: - 02/03 as above - and patient requesting further workup and management at [facility]. I was able to arrange outpatient follow-up with Colorectal surgery ([phone]). They will be contacting patient with further information. - CT chest abdomen pelvis without evidence of Mets - CEA ordered - pending at time of discharge Status: Acute (10) BRITTNEY (obstructive sleep apnea): Problem comment: - continue home CPAP Status: Chronic (11) Morbid obesity with BMI of 50.0-59.9, adult: Problem comment: -Discussion on admission the value of weight loss to improve his chronic back pain, disability and other chronic medical problems. He is open to a calorie restricted diet while he is here in the hospital. Nutrition consulted to help with preop diet/cancer diet. - outpatient follow-up with PCP and dietary Status: Acute (12) Physical debility: Problem comment: - Generalized weakness in addition to spinal stenosis, patient notes upper extremity weakness possibly secondary to anemia. Continue therapies. Status: Acute (13) Spinal stenosis, lumbar region without neurogenic claudication: Problem comment: - MRI and clinical evaluation at [facility] in October and [facility] in November showed significant deficits which were not felt to be surgical. Marked clinical improvement with rehab with abrupt onset of weakness today. Attempted to transfer to [facility]. They are close to admissions. Continue medical management/conservative management. Outpatient follow-up with [facility] in the week of January. PT/OT evaluated him here. Recommend SNF, patient and agreeable. - 02/03 reports that patient is unable to be transported via private vehicle, typically requiring ambulance transportation - ongoing management with PCP Status: Acute (14) Anemia: Problem comment: Microcytic, chronic Status: Acute (15) Candidiasis of skin: Status: Acute (16) Diastolic CHF: Status: Suspected Plan 72-year-old male with chronic debility and poor functional status who was diagnosed with colon cancer about 6 months ago but has not been a candidate for chemotherapy due to performance status. He was originally and Rehab, but was able to go home a few months ago and has been declining since then. He is becoming weaker and developed significant bilateral lower extremity edema and swelling of the scrotum as well dyspnea on exertion at 10 ft. He had a fall overnight in which he hit is head. CT head is unremarkable. Also of note is that he is in atrial fibrillation with bradycardia on the EKG done on presentation today. He has a history of being on Eliquis for what was thought to be atrial fibrillation, however he had a cardiac workup which determined that he had multifocal atrial tachycardia and due to GI bleeding he was taken off of Eliquis. Since then he was diagnosed with colon cancer and had right hemicolectomy on 05/12/2023. He also has an adenocarcinoma of the sigmoid colon for which he was status post polypectomy and there has been no interval follow- up. CT chest abdomen and pelvis without contrast from July 2023 were unremarkable. And blood work including a CEA level (not elevated) were un remarkable. He does continue to have anemia with a stable hemoglobin around 8.5-9.5. He has not had any bright red blood per rectum or melena. No other source of bleeding identified. He is admitted for observation on telemetry. Bradycardia and anemia are likely contributing to weakness. I have decreased diltiazem. Will check a TSH, iron studies, and a stool occult blood. Clinically he appears hypervolemic with dyspnea on exertion and significant edema of the lower extremities, scrotum, pannus and low back, but it is notable that his proBNP is not elevated and his BUN and creatinine are both mildly elevated. Labs would suggest that he is intravascularly depleted, however a does appear hypervolemic. He had an echocardiogram last November, but which the possibly new AFib and symptoms of possible diastolic heart failure, I will repeat the echocardiogram tomorrow. I have discussed anticoagulation with Martir since he now has documented AFib on this EKG, but will hold off until we have iron studies and stool occult blood. Given his overall debility I think he would do very poorly if he had a GI bleed from starting Eliquis for atrial fibrillation. I think the elevated creatinine is likely secondary to cardiorenal syndrome and will likely improve with diuresis. I have ordered IV furosemide. I will continue spironolactone, but hold losartan and metformin in the setting of TARA. Recheck creatinine in the morning. Recheck hemoglobin as well and consider transfusion if he goes below 8. I have ordered nystatin powder for the candidiasis in the skin fold of his pannus. I will have PT and OT see him as he will likely need another rehab stay for weakness. Will also have healthcare social worker see him to help us coordinate care with that. Since I am holding metformin I will start him on insulin sliding scale for diabetes mellitus type 2.
[2023-10-11] MEDS: dilTIAZem 30 MG TABLET 120 MG PO (21:07)
[2023-10-11] MEDS: DULOXETINE 30 MG CAPSULE DR PO (21:07)
[2023-10-11] MEDS: PRAVASTATIN SODIUM 20 MG TABLET 80 MG PO (21:08)
[2023-10-11] MEDS: SODIUM BICARBONATE 650 MG TABLET 1950 MG PO (21:08)
[2023-10-11] MEDS: SODIUM CHLORIDE 0.9 % (FLUSH) 10 ML SYRINGE 5 ML IVF (21:09)
[2023-10-11] MEDS: TAMSULOSIN HCL 0.4 MG CAPSULE 0.8 MG PO (21:23)
[2023-10-11 23:26] LABS: Appearance Urine Clear (Clear); Bilirubin Urine Negative (Negative); Blood Urine Negative (Negative); Color Urine Yellow (Yellow); Glucose Urine Negative (Negative); Ketones Urine Negative (Negative); Leukocyte Esterase Urine Negative (Negative); Nitrite Urine Negative (Negative); Protein Urine Negative (Negative); Specific Gravity Urine 1.015 (1.000-1.030); Urobilinogen Urine 0.2 (0.2-1.0); pH Urine 5.5 (5.0-8.5)
[2023-10-11 23:33] LABS: RBC Urine 0-2 (0-2); Squamous Epithelial Cell Urine Few (None-Few); WBC Urine 0-2 (0-5)
[2023-10-12 03:00] VITALS: BP 135/68; PULSE 64; RESP 18; TEMP 36.3; O2SAT 96
[2023-10-12] MEDS: ACETAMINOPHEN 500 MG TABLET 1000 MG PO ×2 (04:30→22:23)
[2023-10-12] MEDS: FUROSEMIDE 10 MG/ML inj 40 MG IVP (05:51)
[2023-10-12] MEDS: SODIUM CHLORIDE 0.9 % (FLUSH) 10 ML SYRINGE 5 ML IVF ×3 (05:52→20:57)
[2023-10-12] MEDS: LEVOTHYROXINE 125 MCG TABLET PO (06:22)
[2023-10-12] MEDS: LEVOTHYROXINE 100 MCG TABLET PO (06:23)
--- NOTE | 2023-10-12 06:31 | PC.NURSE ---
[id number] Pt set up home pt home Bipap, per pt, he did not sleep well during night due to back pain and headache. Pt refused repositioning during shift, did allow nursing to place pillows under legs. requires 2A to use graduated cylinder as urinal to urinate while in bed, minimal assistance from patient but urinating without difficulty. per patient, he is unable to move lower extremities at all due to pain from his spinal stenosis. yeasty moist odor in folds, washed and dried prn during shift.
[2023-10-12 07:00] VITALS: BP 137/63; PULSE 60; PULSE 74; RESP 18; TEMP 36.3; O2SAT 96
[2023-10-12 07:28] LABS: Basophils Absolute Auto 0.02 K/uL (0.00-0.30); Basophils Percent Auto 0.2 % (0.0-3.0); Eosinophils Percent Auto 4.9 % (0.0-7.0); Hematocrit 30.5 % (37.0-53.0); Hemoglobin* 8.8 gm/dL (13.5-17.5); Immature Granulocytes Abs Auto 0.01 K/uL (0.00-0.30); Immature Granulocytes Pct Auto 0.1 %; Lymphocytes Percent Auto 17.9 % (20-44); Mean Corpuscular HGB Conc 29 gm/dL (32-36); Mean Corpuscular Hemoglobin 21 pg (26-34); Mean Corpuscular Volume 74 fL (80-100); Neutrophils Absolute Auto 5.71 K/uL (1.7-7.0); Neutrophils Percent Auto 69.9 % (42.0-72.0); Platelet Count* 255 K/uL (140-440); RDW Coefficient of Variation % 18.5 % (11.5-15.5); Red Blood Count 4.14 m/uL (4.30-5.90); White Blood Count* 8.17 K/uL (4.50-11.00)
[2023-10-12 07:33] LABS: Slide Review Reflex No
[2023-10-12 07:39] LABS: Chloride* 105 mmol/L (96-114); Potassium* 4.1 mmol/L (3.6-5.1); Sodium* 139 mmol/L (135-149)
[2023-10-12 07:42] LABS: Anion Gap 7 mEq/L (7-15); Carbon Dioxide* 27 mmol/L (20-32); Est. Creatinine Clearance* 43.31; Estimated Glomerular Filt Rate 35 ml/min
[2023-10-12 07:43] LABS: Blood Urea Nitrogen* 39 mg/dL (7-30); Calcium* 8.8 mg/dL (8.4-10.6); Glucose* 84 mg/dL (60-115); Iron* 19 ug/dL (49-181)
[2023-10-12 07:53] LABS: Percent Iron Saturation 5 % (20-50); Total Iron Binding Capacity 411 ug/dL (261-462)
[2023-10-12] MEDS: SPIRONOLACTONE 25 MG TABLET PO (08:55)
[2023-10-12] MEDS: DULOXETINE 30 MG CAPSULE DR PO ×2 (08:55→20:59)
[2023-10-12] MEDS: PREGABALIN 100 MG CAPSULE 300 MG PO ×2 (08:55→20:58)
[2023-10-12] MEDS: allopurinoL 300 MG TABLET PO (08:56)
[2023-10-12] MEDS: glipiZIDE 5 MG TABLET PO ×2 (08:56→18:24)
[2023-10-12] MEDS: dilTIAZem 30 MG TABLET 120 MG PO ×2 (08:56→20:58)
[2023-10-12] MEDS: SODIUM BICARBONATE 650 MG TABLET 1950 MG PO (08:56)
[2023-10-12] MEDS: MAGNESIUM OXIDE 400 MG TABLET PO (08:56)
[2023-10-12 09:05] LABS: Free T4 Free Thyroxine* 1.15 ng/dL (0.70-1.85)
[2023-10-12 09:51] LABS: Lactate* 2.5 mmol/L (0.5-1.9)
[2023-10-12] MEDS: TORSEMIDE 20 MG TABLET PO (09:55)
[2023-10-12] MEDS: OXYCODONE 5 MG TABLET PO ×3 (09:55→22:23)
[2023-10-12] MEDS: SENNOSIDES 1 TAB TABLET 2 TAB PO ×2 (10:42→20:58)
[2023-10-12] MEDS: NYSTATIN POWDER 1 APPLIC TOPICAL ×2 (10:43→21:07)
[2023-10-12 11:00] VITALS: BP 127/69; PULSE 65; RESP 18; TEMP 36.3; O2SAT 95
--- NOTE | 2023-10-12 11:02 | PM.IMPN1 ---
Progress Note: A&P Assessment and plan (1) Fall: Problem details: Fall on the day of admission causing new back injury with acute on chronic back pain. Status: Acute (2) Spinal stenosis, lumbar region without neurogenic claudication: Problem details: MRI at [facility] February 2023. Right-sided impingement at L2-3 impinging on right L3 nerve root, spinal stenosis at L3-4 and L4-5 and compression of the cauda equina nerve roots which was unchanged from previous MRI. Multilevel neural foraminal narrowing advanced on the right at L4-5 and bilaterally at L5-S1. Medically managed with injections at [facility] without good relief Status: Acute (3) Physical debility: Problem details: Physical debility related to weakness relative to body habitus which has required [facility] for [facility] to return home with his Status: Acute (4) Diabetic peripheral neuropathy associated with type 2 diabetes mellitus: Status: Acute (5) Morbid obesity with BMI of 50.0-59.9, adult: Problem details: Status: Acute (6) Adenocarcinoma, colon: Problem details: Right laparoscopic hemicolectomy 05/12/2023 at [facility]. Status: Acute (7) Generalized weakness: Problem details: On a good day he can walk with a walker independently. Currently unable to get to standing without assistance Status: Acute (8) Scrotal edema: Problem details: Patient developing anasarca. This appears to be primarily due to lymphedema, does not appear to be due to heart failure, liver failure, renal failure. Status: Acute (9) Diastolic CHF: Problem details: Appears well compensated at this time Status: Suspected (10) TARA (acute kidney injury): Problem details: - On CKD stage 3. Increasing creatinine. Continue to monitor. Reduce diuresis. Status: Acute (11) Edema, peripheral: Problem details: Per patient his edema is worse than usual. Unfortunately his lab suggest prerenal azotemia. Focus on elevation and compression to deal with peripheral edema and monitor renal function. Status: Acute (12) Back injury: Problem details: Acute on chronic back injury related to fall yesterday. Status: Acute (13) Lactate blood increased: Problem details: Lactate of 2.4. No other sign of focus of infection or sepsis. Continue to monitor. Status: Acute (14) Candidiasis of skin: Problem details: Good hygiene, nystatin Status: Acute (15) Atrial fibrillation: Problem details: Chronic AFib. Decision was made to hold anticoagulation due to concerns about ongoing bleeding and chronic iron deficiency anemia. Rate controlled. Status: Acute (16) Anemia: Problem details: Microcytic, chronic. Iron deficiency documented Status: Acute Plan Continue in hospital for evaluation and management of acute kidney injury, anasarca, back pain, disability and weakness. Likely need [facility] facility for rehab Time Spent With Patient Total time spent: Total time spent today is 60 minutes, 40 minutes in coordination of care discussing with patient his and other providers ongoing evaluation management as above Subjective Date Seen: 10/12/23 Interval history: Zoltan Olivera is a 72 year old male with a complicated past medical history that includes colon cancer, microcytic anemia, type 2 diabetes mellitus, chronic physical debility and declining functional status, spinal stenosis, chronic lumbar radiculopathy, BRITTNEY, morbid obesity, atrial paroxysmal tachycardia, hypertension, and chronic kidney disease stage 3 who has been in an out of the hospital and rehab for declining functional status and physical debility and presented through the ER today for fall and generalized weakness. He has been at home for a couple of months after his most recent rehab stay. He he had been trying to get stronger so he could be considered for chemotherapy, however he had a recent telehealth appointment with his oncologist who has determined that his poor performance status makes the risks of chemotherapy outweigh the benefits. His prognosis is considered overall to be dismal due to other comorbidities. He tells me that while at home he has been declining and getting weaker. He has tried to put on a brief face for his , and tells me that he probably has not been honest with her about how weak he has been getting. In the last couple months he has also had increasing fluid buildup on both lower extremities. He was started on Lasix but he was having to go to the bathroom frequently and this was wearing him out, so the dose was decreased. The swelling has been getting worse and he now has swelling in his scrotum as well that makes it more difficult to use a urinal. He also complains of pain in both knees and generalized weakness. When he gets this way his leg start giving out. This was an issue when I took care of him in the hospital last February as well. Today his legs gave out and he fell. He hit his head but did not lose consciousness. He also injured his low back. He complains of a diffuse headache since falling. He denies any blurry vision. He denies any chest pain. He does feel short of breath with about 10 ft of ambulation. He denies orthopnea or paroxysmal nocturnal dyspnea. Has multilevel disease in his lumbar spine. He has had evaluation with a spine surgeon at [facility]. He tells me the spine surgeon is he repeatedly giving back injections to see if he can get some benefit. Patient reports these have not been helpful. October 11: Patient reports his headache is better today. His back pain is still bothering him quite a bit. No cold, cough, chest pain, shortness of breath, nausea, vomiting. Does have a tendency towards constipation. Overnight is been incontinent of urine which occurs when he is supine. Requiring heavy assist of 2 nurses to stand and transfer today. Lower extremity edema and scrotal swelling are unchanged. Exam Narrative: Exam Narrative: He is alert and oriented to his circumstances. He gives his own history. Respirations are clear to auscultation. Cardiovascular: S1, S2, regular rate and rhythm. No murmur gallop or rub. Abdomen: Bowel sounds active. Abdomen is soft without tenderness or mass. External genitalia with moderate scrotal swelling. No significant erythema or skin breakdown. Some intertriginous erythema consistent with yeast dermatitis. Lower extremities with moderate bilateral edema, symmetric. He moves all 4 extremities fairly well. Const: Vital Signs, click to edit/add: Vital Signs - 24 hr 10/11/23 11:25 10/11/23 11:30 10/11/23 11:32 Temperature Pulse Rate 52 L 52 L 52 L Pulse Rate [Left P ulse Oximeter] Respiratory Rate Blood Pressure 127/54 L Blood Pressure [Le ft Arm] Pulse Oximetry 92 91 [facility]/23 11:45 10/11/23 12:00 10/11/23 12:02 Temperature Pulse Rate 51 L 54 L 51 L Pulse Rate [Left P ulse Oximeter] Respiratory Rate Blood Pressure 121/54 L Blood Pressure [Le ft Arm] Pulse Oximetry 93 96 96 Oxygen Delivery Ma thod 10/11/23 12:22 10/11/23 12:30 10/11/23 12:32 Temperature Pulse Rate 57 L 48 L 47 L Pulse Rate [Left P ulse Oximeter] Respiratory Rate Blood Pressure 95/45 L Blood Pressure [Le ft Arm] Pulse Oximetry 89 82 L 92 Oxygen Delivery Me thod 10/11/23 13:02 10/11/23 13:05 10/11/23 13:16 Temperature Pulse Rate 50 L 48 L Pulse Rate [Left P ulse Oximeter] Respiratory Rate Blood Pressure 94/38 L Blood Pressure [Le ft Arm] Pulse Oximetry Oxygen Delivery Me thod 10/11/23 13:30 10/11/23 13:32 10/11/23 13:33 Temperature Pulse Rate 48 L 52 L 52 L Pulse Rate [Left P ulse Oximeter] Respiratory Rate Blood Pressure 114/46 L Blood Pressure [Le ft Arm] Pulse Oximetry 92 94 Oxygen Delivery Me thod 10/11/23 15:04 10/11/23 15:31 10/11/23 17:50 Temperature 97.6 F Pulse Rate Pulse Rate [Left P ulse Oximeter] 50 L Respiratory Rate 18 Blood Pressure 97/48 L 100/75 Blood Pressure [Le ft Arm] 126/66 Pulse Oximetry 93 Oxygen Delivery Me thod Room Air 10/11/23 17:50 10/11/23 19:00 10/11/23 23:00 Temperature 97.1 F L Pulse Rate Pulse Rate [Left P ulse Oximeter] 57 L 57 L Respiratory Rate 18 18 Blood Pressure Blood Pressure [Le ft Arm] 129/70 Pulse Oximetry 93 96 Oxygen Delivery Me thod Room Air Room Air 10/11/23 23:00 10/11/23 23:00 10/11/23 23:00 Temperature 97.1 F L Pulse Rate 55 L Pulse Rate [Left P ulse Oximeter] 54 L Respiratory Rate 18 18 Blood Pressure Blood Pressure [Le ft Arm] 131/64 Pulse Oximetry 100 100 Oxygen Delivery Me thod BiPAP BiPAP 10/12/23 03:00 10/12/23 07:00 10/12/23 07:00 Temperature 97.4 F L Pulse Rate 60 Pulse Rate [Left P ulse Oximeter] 64 60 Respiratory Rate 18 18 Blood Pressure Blood Pressure [Le ft Arm] 135/68 Pulse Oximetry 96 Oxygen Delivery Me thod Room Air 10/12/23 07:00 10/12/23 07:00 Temperature 97.4 F L Pulse Rate Pulse Rate [Left P ulse Oximeter] 74 Respiratory Rate 18 18 Blood Pressure Blood Pressure [Le ft Arm] 137/63 Pulse Oximetry 96 96 Oxygen Delivery Me thod Room Air Room Air Documenting provider has reviewed patient's vital signs: yes Labs Labs: Laboratory Results - last 24 hr 10/11/23 10/11/23 10/11/23 12:34 12:36 19:20 WBC 7.19 RBC 3.97 L Hgb 8.5 L Hct 29.2 L MCV 74 L MCH 21 L MCHC 29 L RDW Coeff of Liana 18.6 H Plt Count 255 Neut % (Auto) 69.3 Lymph % (Auto) 21.3 [place] % (Auto) 6.0 Eos % (Auto) 3.1 Baso % (Auto) 0.3 Neut # (Auto) 4.99 Lymph # (Auto) 1.53 [place] # (Auto) 0.40 Eos # (Auto) 0.22 Baso # (Auto) 0.02 Abs Immat Gran (auto) 0.00 Imm/Tot Granulo (auto) 0.0 Sodium 140 Potassium 4.2 Chloride 108 Carbon Dioxide 23 Anion Gap 9 BUN 36 H Creatinine 1.7 H Estimated Creat Clear 50.96 Estimated GFR 43 Glucose 120 H Lactate 2.4 H Calcium 8.6 Iron TIBC % Saturation Total Bilirubin 0.4 AST 29 ALT 34 Alkaline Phosphatase 96 Troponin I < 0.01 L NT-Pro-B Natriuret Pep 275 Total Protein 5.7 L Albumin 3.6 TSH Free T4 Urine Color Urine Appearance Urine pH Ur Specific Rew Urine Protein Urine Glucose (UA) Urine Ketones Urine Blood Urine Nitrite Urine Bilirubin Urine Urobilinogen Ur Leukocyte Esterase Urine RBC Urine WBC Ur Squamous Epith Cells Urine Bacteria 10/11/23 10/12/23 10/12/23 23:19 07:02 09:45 WBC 8.17 RBC 4.14 L Hgb 8.8 L Hct 30.5 L MCV 74 L MCH 21 L MCHC 29 L RDW Coeff of Liana 18.5 H Plt Count 255 Neut % (Auto) 69.9 Lymph % (Auto) 17.9 L [place] % (Auto) 7.0 Eos % (Auto) 4.9 Baso % (Auto) 0.2 Neut # (Auto) 5.71 Lymph # (Auto) 1.50 [place] # (Auto) 0.60 Eos # (Auto) 0.40 Baso # (Auto) 0.02 Abs Immat Gran (auto) 0.01 Imm/Tot Granulo (auto) 0.1 Sodium 139 Potassium 4.1 Chloride 105 Carbon Dioxide 27 Anion Gap 7 BUN 39 H Creatinine 2.0 H Estimated Creat Clear 43.31 Estimated GFR 35 Glucose 84 Lactate 2.5 H Calcium 8.8 Iron 19 L TIBC 411 % Saturation 5 L Total Bilirubin AST ALT Alkaline Phosphatase Troponin I NT-Pro-B Natriuret Pep Total Protein Albumin TSH 5.830 H Free T4 1.15 Urine Color Yellow Urine Appearance Clear Urine pH 5.5 Ur Specific Rew 1.015 Urine Protein Negative Urine Glucose (UA) Negative Urine Ketones Negative Urine Blood Negative Urine Nitrite Negative Urine Bilirubin Negative Urine Urobilinogen 0.2 Ur Leukocyte Esterase Negative Urine RBC 0-2 Urine WBC 0-2 Ur Squamous Epith Cells Few Urine Bacteria None
[2023-10-12] MEDS: PERFLUTREN LIPID MICROSPHERES 2 ML VIAL IV (12:28)
--- NOTE | 2023-10-12 14:17 | PC.SOCIAL ---
Addendum entered by AI Mcneil 10/12/23 16:41: Discharge planning: groundskeeping maintenance worker heard back from Candi at [facility] in [place], [place] stating that they could accept the pt pending a $10,000.00 deposit. Candi also said that she needed to order a bariatric bed and wheelchair for the pt and pending the arrival of those two items they could accept the pt. groundskeeping maintenance worker went to talk to the pt about this update and he was pleased with the plan, but wanted his observation vs. inpatient status to be checked on with the provider. groundskeeping maintenance worker talked with the evening provider on duty about this and they will pass along the information. groundskeeping maintenance worker will also talk to the provider on duty in morning rounds, as well. Pt did state that he will do what he needs to do and is prepared to write a check for $10,000.00 to [facility]. Social work to follow-up as needed. Addendum entered by AI Mcneil 10/12/23 14:52: Discharge planning: groundskeeping maintenance worker talked to Candi in Admissions at [facility] in [place], [place] #[phone] and she shared that they currently have male openings. groundskeeping maintenance worker faxed the referral to [facility] for review at fax number #[phone]. Social work to follow-up as needed. Original Note: Discharge planning: groundskeeping maintenance worker met with pt today in his room to discuss discharge planning. Pt is being recommended for short-term rehab by PT/OT. Pt would like to go to [facility] in [place], [place]. groundskeeping maintenance worker explained to the pt that he is in observation status and does not meet criteria for Medicare coverage for a alf at this time. Pt would need three nights of inpatient hospital status met before Medicare would cover a short-term rehab stay. Pt did state that he is in a position where he can private pay for a alf; however, he would prefer insurance to pay for it. Social work to follow-up as needed.
[2023-10-12] MEDS: SODIUM BICARBONATE 650 MG TABLET 1300 MG PO ×2 (14:20→21:04)
[2023-10-12 14:21] VITALS: BMI 48.6
[2023-10-12 15:00] VITALS: BP 124/68; PULSE 65; RESP 18; RESP 20; TEMP 36.2; O2SAT 92
--- NOTE | 2023-10-12 15:27 | PC.NURSE ---
End of shift [id number]: Pt has been A&O, VSS and afebrile today. He is able to make his needs known. Overall pt has been continent of B&B, no BM today. Significant scrotal edema present baseline. PIV in right hand is SL and C/D/I. Pt is Ax2 with 2ww and gait belt for ambulation and transfers. He was rather leary of any movement upon arrival this morning d/t back pain & spinal stenosis but with persistent encouragement and reassurance, he was able to stand at the side of the bed x2 and even walk to the BR with PT. Pt had a TTE done this afternoon at bedside. He c/o ongoing back pain rating it 6/10 in which 10mg PRN oxycodone has been providing adequate relief (last given @ 1420). Blood sugars did not require insulin today: 74 > 121 respectively. Pt tolerating PO intake with no nausea. FR 1800 mL ongoing & pt is aware and self monitoring. Nystatin powder applied to yeast moisture in groin folds and abdominal folds. Redness noted on both sides but no open wounds. TELE reads A. Fib bradycardia 50s-60s bpm.
[2023-10-12 16:43] VITALS: PULSE 62
[2023-10-12] MEDS: INSULIN ASPART 100 UNIT/ML SUBCUT (18:23)
[2023-10-12] MEDS: OMEPRAZOLE 20 MG CAPSULE DR 40 MG PO (18:24)
[2023-10-12] MEDS: METFORMIN 1,000 MG TABLET 1000 MG PO (18:24)
[2023-10-12 19:00] VITALS: BP 146/64; PULSE 71; RESP 18; TEMP 36.4; O2SAT 92
[2023-10-12] MEDS: PRAVASTATIN SODIUM 20 MG TABLET 80 MG PO (20:57)
[2023-10-12] MEDS: TAMSULOSIN HCL 0.4 MG CAPSULE 0.8 MG PO (20:58)
--- NOTE | 2023-10-12 21:18 | CRLHL7_ITS ---
For Patients: As a result of the Cures Act, medical imaging exams and procedure reports are released immediately into your electronic medical record. You may view this report before your referring provider. If you have questions, please contact your health care provider. Indication: Cough Technique: Single view of the chest Comparison: Chest CT performed prior day Findings/Impression: Mild cardiomegaly with no acute cardiopulmonary process detected. Dictated by Magdi Man MD @ 10/12/2023 10:18:50 PM (Electronically Signed)
[2023-10-13] VITALS (7 sets, daily range): BP systolic 137–153; BP diastolic 69–90; PULSE 67–89; RESP 16–20; TEMP 36.4–37.2; O2SAT 85–95
[2023-10-13] MEDS: LEVOTHYROXINE 100 MCG TABLET PO (06:23)
[2023-10-13] MEDS: LEVOTHYROXINE 125 MCG TABLET PO (06:24)
[2023-10-13] MEDS: OXYCODONE 5 MG TABLET PO ×4 (06:24→21:42)
[2023-10-13 07:06] LABS: Basophils Absolute Auto 0.02 K/uL (0.00-0.30); Basophils Percent Auto 0.2 % (0.0-3.0); Eosinophils Absolute Auto 0.28 K/uL (0.00-0.50); Eosinophils Percent Auto 2.8 % (0.0-7.0); Hematocrit 29.9 % (37.0-53.0); Hemoglobin* 8.6 gm/dL (13.5-17.5); Immature Granulocytes Abs Auto 0.01 K/uL (0.00-0.30); Immature Granulocytes Pct Auto 0.1 %; Lymphocytes Percent Auto 8.8 % (20-44); Mean Corpuscular HGB Conc 29 gm/dL (32-36); Mean Corpuscular Hemoglobin 21 pg (26-34); Mean Corpuscular Volume 74 fL (80-100); Monocytes Percent Auto 7.9 % (0.0-11.0); Neutrophils Percent Auto 80.2 % (42.0-72.0); Platelet Count* 241 K/uL (140-440); RDW Coefficient of Variation % 18.2 % (11.5-15.5); Red Blood Count 4.07 m/uL (4.30-5.90); White Blood Count* 9.98 K/uL (4.50-11.00)
[2023-10-13 07:08] LABS: Slide Review Reflex No
[2023-10-13 07:20] LABS: Chloride* 103 mmol/L (96-114); Potassium* 4.4 mmol/L (3.6-5.1); Sodium* 138 mmol/L (135-149)
[2023-10-13 07:23] LABS: Anion Gap 4 mEq/L (7-15); Blood Urea Nitrogen* 43 mg/dL (7-30); Carbon Dioxide* 31 mmol/L (20-32); Creatinine* 1.9 mg/dL (0.5-1.5); Est. Creatinine Clearance* 45.59; Estimated Glomerular Filt Rate 37 ml/min
[2023-10-13 07:24] LABS: Calcium* 8.7 mg/dL (8.4-10.6); Glucose* 160 mg/dL (60-115)
--- NOTE | 2023-10-13 07:43 | PC.NURSE ---
END OF SHIFT NOTE: PT CALM AND COOPERATIVE. A&Ox3. PT DENIES CP, SOB, N/V. PT DID NOT AMBULATE THIS SHIFT. PT REFUSED REPOSITIONING. URINAL USED TO VOID WHILE IN BED. VSS ON RA; AFEBRILE. PT TAKES PILLS WITH PUDDING. ON A 1800ML/DAY FLUID RESTRICTION; PT HAS VOICED BEING UPSET ABOUT THIS. CPAP WORN OVERNIGHT. NIGHT WAS UNEVENTFUL. CALL LIGHT WITHIN PT?S REACH.?
[2023-10-13] MEDS: TORSEMIDE 20 MG TABLET PO (08:10)
[2023-10-13] MEDS: METFORMIN 1,000 MG TABLET 1000 MG PO ×2 (08:10→21:46)
[2023-10-13] MEDS: glipiZIDE 5 MG TABLET PO ×2 (08:10→21:45)
[2023-10-13] MEDS: INSULIN ASPART 100 UNIT/ML SUBCUT (08:11)
[2023-10-13] MEDS: FERROUS SULFATE 325 MG TABLET PO (08:13)
[2023-10-13] MEDS: allopurinoL 300 MG TABLET PO (09:20)
[2023-10-13] MEDS: SPIRONOLACTONE 25 MG TABLET PO (09:20)
[2023-10-13] MEDS: SENNOSIDES 1 TAB TABLET 2 TAB PO ×2 (09:20→21:50)
[2023-10-13] MEDS: MAGNESIUM OXIDE 400 MG TABLET PO (09:20)
[2023-10-13] MEDS: DULOXETINE 30 MG CAPSULE DR PO ×2 (09:20→21:48)
[2023-10-13] MEDS: dilTIAZem 30 MG TABLET 120 MG PO ×2 (09:21→21:48)
[2023-10-13] MEDS: SODIUM BICARBONATE 650 MG TABLET 1300 MG PO ×3 (09:21→21:51)
[2023-10-13] MEDS: NYSTATIN POWDER 1 APPLIC TOPICAL ×2 (09:42→21:49)
--- NOTE | 2023-10-13 10:00 | PC.SOCIAL ---
Discharge planning: blasting worker met with pt this morning to discuss discharge planning to [facility] in [facility]. The charge nurse on duty today had mentioned in morning rounds that the pt had stated to some nurses last night that he was not going to go to [facility] in [facility] anymore. The provider on duty also met with the pt today to discuss and clarify his observation status in the hospital. When clinical social work aide checked in with the pt he stated that he was still willing to go to [facility] and was transferring funds so that he is able to give them a check when he arrives there. blasting worker talked to Candi in Admissions at [facility] and she stated that they were still in the process of finding out when the bariatric bed that they ordered for the pt will arrive at their facility. Candi will let this clinical social work aide know as soon as she knows when they can take him. It may be today still or possibly tomorrow. Social work to follow-up as needed.
[2023-10-13] MEDS: PREGABALIN 100 MG CAPSULE 300 MG PO ×2 (10:55→21:50)
[2023-10-13] MEDS: ENOXAPARIN 30 MG/0.3ML INJ SUBCUT (10:55)
[2023-10-13] MEDS: SODIUM CHLORIDE 0.9 % (FLUSH) 10 ML SYRINGE 5 ML IVF ×2 (10:55→21:51)
--- NOTE | 2023-10-13 11:10 | CRLHL7_ITS ---
For Patients: As a result of the Century Cures Act, medical imaging exams and procedure reports are released immediately into your electronic medical record. You may view this report before your referring provider. If you have questions, please contact your health care provider. INDICATION: Hypoxia. TECHNIQUE: CT chest PE was acquired with 95 cc Isovue 370 IV contrast. COMPARISON: CT chest/abdomen/pelvis dated 10/11/2023. FINDINGS: Heart and vasculature: No cardiomegaly, no pericardial effusion. Limited evaluation secondary to suboptimal contrast opacification of the pulmonary arteries, as well as motion artifact. No central pulmonary embolus is identified. Distal lobar, segmental, and subsegmental pulmonary arteries are poorly evaluated. Lungs and pleura: Motion artifact. New small bilateral pleural effusions. Bilateral patchy central peribronchial ground-glass opacities, may reflect mild pulmonary edema. Thyroid and lower neck: Atrophic thyroid gland. Mediastinum/xiao: No lymphadenopathy. Chest wall: No axillary lymphadenopathy. Upper abdomen: No acute abnormality. No significant changes from recent CT abdomen/pelvis. Bones: Multilevel degenerative changes of the spine. No suspicious/aggressive focal osseous lesion. IMPRESSION: 1. Limited evaluation secondary to suboptimal contrast opacification of the pulmonary arteries, as well as motion artifact. No central pulmonary embolus. 2. New small bilateral pleural effusions. Bilateral patchy central peribronchial ground-glass opacities, may reflect mild pulmonary edema. Please note that all CT scans at this facility use dose modulation, iterative reconstruction, and/or weight-based dosing when appropriate to reduce radiation dose to as low as reasonably achievable. Dictated by Jade Bergeron MD @ 10/13/2023 2:11:08 PM (Electronically Signed)
[2023-10-13] MEDS: ACETAMINOPHEN 500 MG TABLET 1000 MG PO (14:44)
--- NOTE | 2023-10-13 15:02 | P.IMPN_ITS ---
Progress Note: A&P Assessment and plan (1) Hypoxic respiratory failure: Problem details: Patient has new hypoxic respiratory failure today. Echo is unremarkable. CT chest for PE shows small pleural effusions and ground-glass infiltrates. Possibly pulmonary edema. Will continue diuresis though patient is having evidence of pre renal azotemia. Continue compression for lymphedema. Supplemental oxygen and ongoing evaluation. Status: Acute (2) Fall: Problem details: Fall on the day of admission causing new back injury with acute on chronic back pain. Status: Acute (3) Spinal stenosis, lumbar region without neurogenic claudication: Problem details: MRI at [facility] February 2023. Right-sided impingement at L2-3 impinging on right L3 nerve root, spinal stenosis at L3-4 and L4-5 and compression of the cauda equina nerve roots which was unchanged from previous MRI. Multilevel neural foraminal narrowing advanced on the right at L4-5 and bilaterally at L5-S1. Medically managed with injections at [facility] without good relief Status: Acute (4) Physical debility: Problem details: Physical debility related to weakness relative to body habitus which has required multiple halfway facility visits for rehab to return home with his Status: Acute (5) Diabetic peripheral neuropathy associated with type 2 diabetes mellitus: Status: Acute (6) Morbid obesity with BMI of 50.0-59.9, adult: Problem details: Complicating cares and testing Status: Acute (7) Adenocarcinoma, colon: Problem details: Right laparoscopic hemicolectomy 05/12/2023 at [place]. Status: Acute (8) Generalized weakness: Problem details: On a good day he can walk with a walker independently. Currently unable to get to standing without assistance Status: Acute (9) Scrotal edema: Problem details: Patient developing anasarca. This appears to be primarily due to lymphedema, does not appear to be due to heart failure, liver failure, renal failure. Status: Acute (10) Diastolic CHF: Problem details: Appears to have mild pulmonary edema developing. Continue diuresis as tolerated Status: Suspected (11) TARA (acute kidney injury): Problem details: - On CKD stage 3. Increasing creatinine. Continue to monitor. Continue diuresis due to concern about heart failure Status: Acute (12) Edema, peripheral: Problem details: Per patient his edema is worse than usual. Unfortunately his lab suggest prerenal azotemia. Focus on elevation and compression to deal with peripheral edema and monitor renal function. Status: Acute (13) Back injury: Problem details: Acute on chronic back injury related to fall yesterday. Continue therapy. Status: Acute (14) Lactate blood increased: Problem details: Lactate of 2.4. No other sign of focus of infection or sepsis. Normalized. Status: Acute (15) Candidiasis of skin: Problem details: Good hygiene, nystatin Status: Acute (16) Atrial fibrillation: Problem details: Chronic AFib. Decision was made to hold anticoagulation due to concerns about ongoing bleeding and chronic iron deficiency anemia. Rate controlled. Will initiate apixaban well he is in the hospital to monitor for bleeding and to address high risk for VTE Status: Acute (17) Anemia: Problem details: Microcytic, chronic. Iron deficiency documented. Chronic. Start iron supplement. Status: Acute Plan Admit to the hospital as inpatient for ongoing evaluation of hypoxic respiratory failure, heart failure exacerbation and acute kidney injury. Time Spent With Patient Total time spent: Total time spent today is 60 minutes, 40 minutes in coordination of care discussing with patient other providers ongoing evaluation management of heart failure, kidney failure, hypoxia, back pain Subjective Date Seen: 10/13/23 Interval history: Zoltan Olivera is a 72 year old male with a complicated past medical history that includes colon cancer, microcytic anemia, type 2 diabetes mellitus, chronic physical debility and declining functional status, spinal stenosis, chronic lumbar radiculopathy, BRITTNEY, morbid obesity, atrial paroxysmal tachycardia, hypertension, and chronic kidney disease stage 3 who has been in an out of the hospital and rehab for declining functional status and physical debility and presented through the ER today for fall and generalized weakness. He has been at home for a couple of months after his most recent rehab stay. He he had been trying to get stronger so he could be considered for chemotherapy, however he had a recent telehealth appointment with his oncologist who has determined that his poor performance status makes the risks of chemotherapy outweigh the benefits. His prognosis is considered overall to be dismal due to other comorbidities. He tells me that while at home he has been declining and getting weaker. He has tried to put on a brief face for his , and tells me that he probably has not been honest with her about how weak he has been getting. In the last couple months he has also had increasing fluid buildup on both lower extremities. He was started on Lasix but he was having to go to the bathroom frequently and this was wearing him out, so the dose was decreased. The swelling has been getting worse and he now has swelling in his scrotum as well that makes it more difficult to use a urinal. He also complains of pain in both knees and generalized weakness. When he gets this way his leg start giving out. This was an issue when I took care of him in the hospital last February as well. Today his legs gave out and he fell. He hit his head but did not lose consciousness. He also injured his low back. He complains of a diffuse headache since falling. He denies any blurry vision. He denies any chest pain. He does feel short of breath with about 10 ft of ambulation. He denies orthop loren or paroxysmal nocturnal dyspnea. Has multilevel disease in his lumbar spine. He has had evaluation with a spine surgeon at [facility]. He tells me the spine surgeon is he repeatedly giving back injections to see if he can get some benefit. Patient reports these have not been helpful. October 11: Patient reports his headache is better today. His back pain is still bothering him quite a bit. No cold, cough, chest pain, shortness of breath, nausea, vomiting. Does have a tendency towards constipation. Overnight is been incontinent of urine which occurs when he is supine. Requiring heavy assist of 2 nurses to stand and transfer today. Lower extremity edema and scrotal swelling are unchanged. October 12: Last night patient of was feeling some dyspnea. Had a chest x-ray with no acute change. This morning is been noted to be mildly hypoxic in the 80s. He is not having chest pain he reports some cough and some dyspnea with this. He has not had any fever. Continues to be bothered by his back pain. Exam Narrative: Exam Narrative: He is alert and appears in no obvious distress. O2 sat in the low 80s on room air. He has decreased perfusion of his fingertips and so moving the oximeter is attempted but does not consistently improve his oximetry readings. Respirations are clear to auscultation. No wheezing rales rhonchi. Diminished breath sounds. Cardiovascular: S1, S2, regular rate and rhythm. Abdomen: Bowel sounds active. Abdomen is soft without tenderness or mass. Extremity shows unchanged fairly severe edema of the scrotum and lower extremities as well as the abdominal pannus. Const: Vital Signs, click to edit/add: Vital Signs - 24 hr 10/12/23 16:43 10/12/23 19:00 10/13/23 01:40 Temperature 97.5 F L Pulse Rate 62 73 Pulse Rate [Left P ulse Oximeter] 71 Respiratory Rate 18 Blood Pressure [Le ft Arm] 146/64 H Blood Pressure [le ft forearm] Pulse Oximetry 92 Oxygen Delivery Me thod Room Air 10/13/23 01:40 10/13/23 01:40 10/13/23 01:40 Temperature 97.6 F Pulse Rate Pulse Rate [Left P ulse Oximeter] 73 73 Respiratory Rate 20 20 20 Blood Pressure [Le ft Arm] 142/70 H Blood Pressure [le ft forearm] Pulse Oximetry 91 91 Oxygen Delivery Me thod Room Air Room Air CPAP 10/13/23 05:20 10/13/23 08:02 10/13/23 08:02 Temperature 97.9 F Pulse Rate Pulse Rate [Left P ulse Oximeter] 75 70 Respiratory Rate 16 16 16 Blood Pressure [Le ft Arm] 137/69 Blood Pressure [le ft forearm] Pulse Oximetry 92 90 Oxygen Delivery Me thod Room Air CPAP Room Air 10/13/23 08:02 10/13/23 11:00 Temperature 98.9 F Pulse Rate Pulse Rate [Left P ulse Oximeter] 76 77 Respiratory Rate 16 18 Blood Pressure [Le ft Arm] Blood Pressure [le ft forearm] 147/69 H 153/79 H Pulse Oximetry 90 85 L Oxygen Delivery Me thod Room Air Room Air Documenting provider has reviewed patient's vital signs: yes Labs Labs: Laboratory Results - last 24 hr 10/13/23 06:13 WBC 9.98 RBC 4.07 L Hgb 8.6 L Hct 29.9 L MCV 74 L MCH 21 L MCHC 29 L RDW Coeff of Liana 18.2 H Plt Count 241 Neut % (Auto) 80.2 H Lymph % (Auto) 8.8 L [place] % (Auto) 7.9 Eos % (Auto) 2.8 Baso % (Auto) 0.2 Neut # (Auto) 8.00 H Lymph # (Auto) 0.90 [place] # (Auto) 0.80 Eos # (Auto) 0.28 Baso # (Auto) 0.02 Abs Immat Gran (auto) 0.01 Imm/Tot Granulo (auto) 0.1 Sodium 138 Potassium 4.4 Chloride 103 Carbon Dioxide 31 Anion Gap 4 L BUN 43 H Creatinine 1.9 H Estimated Creat Clear 45.59 Estimated GFR 37 Glucose 160 H Lactate 1.[address] scan - chest: Radiologist's impression: INDICATION: Hypoxia. TECHNIQUE: CT chest PE was acquired with 95 cc Isovue 370 IV contrast. COMPARISON: CT chest/abdomen/pelvis dated 10/11/2023. FINDINGS: Heart and vasculature: No cardiomegaly, no pericardial effusion. Limited evaluation secondary to suboptimal contrast opacification of the pulmonary arteries, as well as motion artifact. No central pulmonary embolus is identified. Distal lobar, segmental, and subsegmental pulmonary arteries are poorly evaluated. Lungs and pleura: Motion artifact. New small bilateral pleural effusions. Bilateral patchy central peribronchial ground-glass opacities, may reflect mild pulmonary edema. Thyroid and lower neck: Atrophic thyroid gland. Mediastinum/xiao: No lymphadenopathy. Chest wall: No axillary lymphadenopathy. Upper abdomen: No acute abnormality. No significant changes from recent CT abdomen/pelvis. Bones: Multilevel degenerative changes of the spine. No suspicious/aggressive focal osseous lesion. IMPRESSION: 1. Limited evaluation secondary to suboptimal contrast opacification of the pulmonary arteries, as well as motion artifact. No central pulmonary embolus. 2. New small bilateral pleural effusions. Bilateral patchy central peribronchial ground-glass opacities, may reflect mild pulmonary edema.
[2023-10-13] MEDS: FUROSEMIDE 10 MG/ML inj 40 MG IVP (18:06)
[2023-10-13 18:46] LABS: PCR FLU A Negative PCR FLU A (Negative); PCR FLU B Negative PCR FLU B (Negative); SARS PCR* Negative SARS-CoV-2 (Negative)
--- NOTE | 2023-10-13 19:53 | PC.NURSE ---
Nursing Care Hours: [id number] Pt this shift calm and cooperative with cares. Alert and oriented. C/o pain in back, treated per eMAR. Spo2 unstable on RA. Desat to low 70's to high 80's on RA or with BIPAP. 4L needed to bleed into BIPAP in order to keep sats above 87%. Using urinal in bed. No BM. Low appetite. pt also c/o feeling run down. States increased congestion and cough, and c/o bilat arm and leg tremors. Tremors observed by copy writer. LS clear but diminished and audible wheezes heard. CT with contrast done, see results. Covid/flu swab negative. RT assessed BIPAP machine. Insulin given in morning and not required in afternoon per sliding scale. NAOMI wraps on bilat legs intact.
[2023-10-13] MEDS: OMEPRAZOLE 20 MG CAPSULE DR 40 MG PO (21:46)
[2023-10-13] MEDS: APIXABAN 5 MG TABLET PO (21:48)
[2023-10-13] MEDS: PRAVASTATIN SODIUM 20 MG TABLET 80 MG PO (21:49)
[2023-10-13] MEDS: TAMSULOSIN HCL 0.4 MG CAPSULE 0.8 MG PO (21:51)
[2023-10-13] MEDS: LIDOCAINE 5% PATCH 1 PATCH TRANSDERMA (22:01)
[2023-10-14] VITALS (11 sets, daily range): BP systolic 104–151; BP diastolic 59–83; PULSE 62–84; RESP 16–20; TEMP 36.3–37.5; O2SAT 89–94
[2023-10-14] MEDS: ACETAMINOPHEN 500 MG TABLET 1000 MG PO ×2 (03:25→14:18)
[2023-10-14] MEDS: LEVOTHYROXINE 125 MCG TABLET PO (06:16)
[2023-10-14] MEDS: LEVOTHYROXINE 100 MCG TABLET PO (06:17)
[2023-10-14] MEDS: OXYCODONE 5 MG TABLET PO ×3 (06:18→20:47)
[2023-10-14 06:23] LABS: Basophils Absolute Auto 0.01 K/uL (0.00-0.30); Basophils Percent Auto 0.1 % (0.0-3.0); Eosinophils Absolute Auto 0.22 K/uL (0.00-0.50); Eosinophils Percent Auto 2.6 % (0.0-7.0); Hematocrit 28.9 % (37.0-53.0); Hemoglobin* 8.5 gm/dL (13.5-17.5); Immature Granulocytes Pct Auto 1.2 %; Lymphocytes Percent Auto 12.5 % (20-44); Mean Corpuscular HGB Conc 29 gm/dL (32-36); Mean Corpuscular Hemoglobin 22 pg (26-34); Mean Corpuscular Volume 73 fL (80-100); Monocytes Percent Auto 9.1 % (0.0-11.0); Neutrophils Percent Auto 74.5 % (42.0-72.0); Platelet Count* 226 K/uL (140-440); RDW Coefficient of Variation % 18.1 % (11.5-15.5); Red Blood Count 3.96 m/uL (4.30-5.90); White Blood Count* 8.54 K/uL (4.50-11.00)
[2023-10-14 06:30] LABS: Slide Review Reflex No
[2023-10-14 06:39] LABS: Chloride* 101 mmol/L (96-114); Potassium* 4.2 mmol/L (3.6-5.1); Sodium* 137 mmol/L (135-149)
[2023-10-14 06:42] LABS: Anion Gap 5 mEq/L (7-15); Blood Urea Nitrogen* 39 mg/dL (7-30); Calcium* 8.7 mg/dL (8.4-10.6); Carbon Dioxide* 31 mmol/L (20-32); Creatinine* 1.8 mg/dL (0.5-1.5); Est. Creatinine Clearance* 48.13; Estimated Glomerular Filt Rate 40 ml/min; Glucose* 123 mg/dL (60-115)
--- NOTE | 2023-10-14 07:31 | PC.NURSE ---
END OF SHIFT NOTE: PT A&Ox3. PT MANY TIMES RESISTIVE TO CARES AND REQUIRES ENCOURAGEMENT. DENIES CP, SOB, N/V. PT DID NOT AMBULATE THIS SHIFT. SOILED BEDDING CHANGED AND PT CLEANED UP AT BEGINNING OF SHIFT. D/T SWOLLEN SCROTUM, PT USES BUCKET URINAL TO VOID WHILE IN BED. HX OF BRITTNEY; CPAP WORN DURING HS. VSS ON RA; AFEBRILE. D/T BED SCALE BEING ZEROED OUT BED WEIGHT NOT OBTAINED. LIDO PATCH PLACED ON PT'S RIGHT LOWER BACK. TELE READS AFIB. CALL LIGHT WITHIN PT?S REACH.?
[2023-10-14] MEDS: METFORMIN 1,000 MG TABLET 1000 MG PO ×2 (07:35→17:54)
[2023-10-14] MEDS: FERROUS SULFATE 325 MG TABLET PO (07:35)
[2023-10-14] MEDS: glipiZIDE 5 MG TABLET PO ×2 (07:35→17:55)
[2023-10-14] MEDS: TORSEMIDE 20 MG TABLET PO (07:35)
[2023-10-14] MEDS: SODIUM CHLORIDE 0.9 % (FLUSH) 10 ML SYRINGE 5 ML IVF ×2 (08:45→21:16)
[2023-10-14] MEDS: FUROSEMIDE 10 MG/ML inj 40 MG IVP (08:45)
[2023-10-14] MEDS: dilTIAZem 30 MG TABLET 120 MG PO ×2 (08:48→20:47)
[2023-10-14] MEDS: PREGABALIN 100 MG CAPSULE 300 MG PO ×2 (08:48→20:48)
[2023-10-14] MEDS: NYSTATIN POWDER 1 APPLIC TOPICAL ×2 (08:48→20:49)
[2023-10-14] MEDS: SENNOSIDES 1 TAB TABLET 2 TAB PO (08:49)
[2023-10-14] MEDS: DULOXETINE 30 MG CAPSULE DR PO ×2 (08:49→20:47)
[2023-10-14] MEDS: allopurinoL 300 MG TABLET PO (08:49)
[2023-10-14] MEDS: SODIUM BICARBONATE 650 MG TABLET 1300 MG PO ×3 (08:49→20:48)
[2023-10-14] MEDS: SPIRONOLACTONE 25 MG TABLET PO (08:49)
[2023-10-14] MEDS: APIXABAN 5 MG TABLET PO ×2 (08:49→20:50)
[2023-10-14] MEDS: MAGNESIUM OXIDE 400 MG TABLET PO (08:49)
--- NOTE | 2023-10-14 09:09 | PC.SOCIAL ---
Addendum entered by Chen Villegas [facility] 10/14/23 11:45: Discharge planning: Pt stated that he has his own wheelchair at home. Pt's will plan to bring the wheelchair up to the hospital. [facility] would like the pt to bring this wheelchair with when he discharges to their facility, so that their physical therapist can assess the pt with his own wheelchair. Social work to follow-up as needed. Addendum entered by Chen Villegas [facility] 10/14/23 11:33: Discharge planning: gospel worker spoke to Candi in Admissions at [facility]. Candi stated that they can still plan to take the pt on Tuesday. Candi stated that she is still working on getting the bariatric bed ordered for the pt and the issue that she is having is coordinating with the [employer] company whether they should bill the [facility] or the pt for the bariatric bed. Candi will update this worker today if she hears more about the bariatric bed status. Otherwise, the social work department will plan to touch base with Candi on Tuesday in regard to pt's discharge plan. Candi's direct phone number is #[phone]. The fax number for [facility] is #[phone] and the main phone number for [facility] is #[phone]. Social work to follow-up as needed. Addendum entered by Chen Villegas [facility] 10/14/23 10:19: Discharge planning: Pt's insurance should cover the cost of non-emergent EMS transport due to pt's bariatric status. Social work to follow-up as needed. Addendum entered by Chen Villegas [facility] 10/14/23 10:18: Discharge planning: Met with pt and updated pt about this social media strategist leaving a message with Candi in Admissions at [facility] about his medical status changing due to becoming Hypoxic, changing to inpatient status as of 10/13/2023 and needing to stay through the weekend. Pt stated that he would like to take non-emergent EMS to [facility] when he is ready for discharge. Social work to follow-up as needed. Original Note: Discharge planning: Pt was made inpatient as of 10/13/2023 due to becoming Hypoxic yesterday and will need to stay through the weekend per the provider on duty. gospel worker left a message with Candi in Admissions at [facility] in [facility] letting her know the update and asking if it was okay for the pt to come on Tuesday, if medically stable. Social work to follow-up as needed.
--- NOTE | 2023-10-14 12:20 | P.IMPN_ITS ---
Progress Note: A&P Assessment and plan (1) Hypoxic respiratory failure: Problem details: Improving with diuresis. Echo is unremarkable. CT chest for PE shows small pleural effusions and ground-glass infiltrates. Possibly pulmonary edema. Will continue diuresis though patient is having evidence of pre renal azotemia. Continue compression for lymphedema. Supplemental oxygen and ongoing evaluation. Status: Acute (2) Fall: Problem details: Fall on the day of admission causing new back injury with acute on chronic back pain. Pain is adequately controlled with medication. Not obviously getting better. Status: Acute (3) Spinal stenosis, lumbar region without neurogenic claudication: Problem details: MRI at [place] February 2023. Right-sided impingement at L2-3 impinging on right L3 nerve root, spinal stenosis at L3-4 and L4-5 and compression of the cauda equina nerve roots which was unchanged from previous MRI. Multilevel neural foraminal narrowing advanced on the right at L4-5 and bilaterally at L5-S1. Medically managed with injections at [place] without good relief Status: Acute (4) Physical debility: Problem details: Physical debility related to weakness relative to body habitus which has required multiple [facility] facility visits for rehab to return home with his Status: Acute (5) Diabetic peripheral neuropathy associated with type 2 diabetes mellitus: Status: Acute (6) Morbid obesity with BMI of 50.0-59.9, adult: Problem details: Complicating cares and testing Status: Acute (7) Adenocarcinoma, colon: Problem details: Right laparoscopic hemicolectomy 05/12/2023 at [place]. Not receiving adjuvant chemotherapy. Status: Acute (8) Generalized weakness: Problem details: On a good day he can walk with a walker independently. Currently unable to get to standing without assistance of 2 people Status: Acute (9) Scrotal edema: Problem details: Patient developing anasarca. This appears to be primarily due to lymphedema, does not appear to be due to heart failure, liver failure, renal failure. Continue conservative treatment as well as diuresis as tolerated Status: Acute (10) Diastolic CHF: Problem details: Appears to have mild pulmonary edema developing. Continue diuresis as tolerated Status: Suspected (11) TARA (acute kidney injury): Problem details: - On CKD stage 3. Creatinine very slowly improving. Continue to monitor. Continue diuresis due to concern about heart failure with close monitoring of fluid, creatinine and electrolytes Status: Acute (12) Edema, peripheral: Problem details: Per patient his edema is worse than usual. Unfortunately his lab suggest prerenal azotemia. Focus on elevation and compression to deal with peripheral edema and monitor renal function. Status: Acute (13) Back injury: Problem details: Acute on chronic back injury related to fall yesterday. Continue therapy. Status: Acute (14) Lactate blood increased: Problem details: Lactate of 2.4. No other sign of focus of infection or sepsis. Normalized. Status: Acute (15) Candidiasis of skin: Problem details: Good hygiene, nystatin Status: Acute (16) Atrial fibrillation: Problem details: Chronic AFib. Decision was made to hold anticoagulation due to concerns about ongoing bleeding and chronic iron deficiency anemia. Rate controlled. Will initiate apixaban well he is in the hospital to monitor for bleeding and to address high risk for VTE. Status: Acute (17) Anemia: Problem details: Microcytic, chronic. Iron deficiency documented. Chronic. Start iron supplement. Monitor hemoglobin on apixaban. Status: Acute Plan Continue in hospital for diuretic treatment with IV furosemide and close monitoring of renal function fluid and electrolytes. Continue anticoagulation with close monitoring of hemoglobin. Continue therapy and pain management for acute and chronic back problems. Anticipate discharge to [facility] facility for ongoing rehab. Time Spent With Patient Total time spent: Total time spent today is 50 minutes, 30 minutes in coordination care and discussing with patient and his and other providers management of heart failure, acute kidney injury, pain and therapy. Subjective Date Seen: 10/14/23 Interval history: Zoltan Olivera is a 72 year old male with a complicated past medical history that includes colon cancer, microcytic anemia, type 2 diabetes mellitus, chronic physical debility and declining functional status, spinal stenosis, chronic lumbar radiculopathy, BRITTNEY, morbid obesity, atrial paroxysmal tachycardia, hypertension, and chronic kidney disease stage 3 who has been in an out of the hospital and rehab for declining functional status and physical debility and presented through the ER today for fall and generalized weakness. He has been at home for a couple of months after his most recent rehab stay. He he had been trying to get stronger so he could be considered for chemotherapy, however he had a recent telehealth appointment with his oncologist who has determined that his poor performance status makes the risks of chemotherapy outweigh the benefits. His prognosis is considered overall to be dismal due to other comorbidities. He tells me that while at home he has been declining and getting weaker. He has tried to put on a brief face for his , and tells me that he probably has not been honest with her about how weak he has been getting. In the last couple months he has also had increasing fluid buildup on both lower extremities. He was started on Lasix but he was having to go to the bathroom frequently and this was wearing him out, so the dose was decreased. The swelling has been getting worse and he now has swelling in his scrotum as well that makes it more difficult to use a urinal. He also complains of pain in both knees and generalized weakness. When he gets this way his leg start giving out. This was an issue when I took care of him in the hospital last February as well. Today his legs gave out and he fell. He hit his head but did not lose consciousness. He also injured his low back. He complains of a diffuse headache since falling. He denies any blurry vision. He denies any chest pain. He does feel short of breath with about 10 ft of ambulation. He denies orthopnea or paroxysmal nocturnal dyspnea. Has multilevel disease in his lumbar spine. He has had evaluation with a spine surgeon at [facility]. He tells me the spine surgeon is he repeatedly giving back injections to see if he can get some benefit. Patient reports these have not been helpful. October 11: Patient reports his headache is better today. His back pain is still bothering him quite a bit. No cold, cough, chest pain, shortness of breath, nausea, vomiting. Does have a tendency towards constipation. Overnight is been incontinent of urine which occurs when he is supine. Requiring heavy assist of 2 nurses to stand and transfer today. Lower extremity edema and scrotal swelling are unchanged. October 12: Last night patient of was feeling some dyspnea. Had a chest x-ray with no acute change. This morning is been noted to be mildly hypoxic in the 80s. He is not having chest pain he reports some cough and some dyspnea with this. He has not had any fever. Continues to be bothered by his back pain. October 13: Patient reports hypoxia is a little better. He had fairly severe fatigue and malaise yesterday and that is better. Thinks his back pain is about the same. Still requiring moderately high doses of oxycodone and poorly tolerating transfers. His appetite is a little better today. He had a small hard stool today. Exam Narrative: Exam Narrative: He is alert and appears in no obvious distress. He is oriented to his circumstances. Respirations with diminished breath sounds. A rare basilar crackle. Cardiovascular: S1, S2, distant heart sounds. Regular rhythm. Abdomen: Bowel sounds active. Abdomen is soft without tenderness or mass. Moderate edema of the abdominal pannus. Extremities with moderate edema. Scrotum with moderate edema. No marked erythema or open ulcers. Const: Vital Signs, click to edit/add: Vital Signs - 24 hr 10/13/23 15:00 10/13/23 15:00 10/13/23 15:00 Temperature 97.9 F Pulse Rate Pulse Rate [Left P ulse Oximeter] 67 67 Respiratory Rate 18 18 18 Blood Pressure [Le ft Arm] Blood Pressure [le ft forearm] 137/78 Pulse Oximetry 95 90 Oxygen Delivery Me thod BiPAP BiPAP Oxygen Flow Rate 4 10/13/23 15:00 10/13/23 21:00 10/14/23 00:38 Temperature 97.8 F Pulse Rate 67 62 Pulse Rate [Left P ulse Oximeter] 89 Respiratory Rate 20 Blood Pressure [Le ft Arm] 143/90 H Blood Pressure [le ft forearm] Pulse Oximetry 90 Oxygen Delivery Me thod Room Air BiPAP Oxygen Flow Rate 10/14/23 00:38 10/14/23 00:38 10/14/23 00:38 Temperature 99.5 F Pulse Rate Pulse Rate [Left P ulse Oximeter] 83 83 Respiratory Rate 20 20 20 Blood Pressure [Le ft Arm] Blood Pressure [le ft forearm] 129/83 Pulse Oximetry 93 93 Oxygen Delivery Me thod Room Air BiPAP Room Air Oxygen Flow Rate 10/14/23 03:10 10/14/23 07:26 10/14/23 07:29 Temperature 97.6 F 98.2 F Pulse Rate 67 Pulse Rate [Left P ulse Oximeter] 81 84 Respiratory Rate 20 16 Blood Pressure [Le ft Arm] Blood Pressure [le ft forearm] 148/70 H 151/77 H Pulse Oximetry 94 93 Oxygen Delivery Me thod Room Air CPAP Room Air Oxygen Flow Rate 10/14/23 07:29 10/14/23 07:29 10/14/23 11:00 Temperature 98.1 F Pulse Rate Pulse Rate [Left P ulse Oximeter] 84 75 Respiratory Rate 16 16 16 Blood Pressure [Le ft Arm] Blood Pressure [le ft forearm] 148/71 H Pulse Oximetry 93 94 Oxygen Delivery Me thod Room Air CPAP Oxygen Flow Rate 4 Documenting provider has reviewed patient's vital signs: yes Labs Labs: Laboratory Results - last 24 hr 10/13/23 10/14/23 Unknown 05:53 WBC 8.54 RBC 3.96 L Hgb 8.5 L Hct 28.9 L MCV 73 L MCH 22 L MCHC 29 L RDW Coeff of Liana 18.1 H Plt Count 226 Neut % (Auto) 74.5 H Lymph % (Auto) 12.5 L Nolan % (Auto) 9.1 Eos % (Auto) 2.6 Baso % (Auto) 0.1 Neut # (Auto) 6.40 Lymph # (Auto) 1.10 Nolan # (Auto) 0.80 Eos # (Auto) 0.22 Baso # (Auto) 0.01 Abs Immat Gran (auto) 0.10 Imm/Tot Granulo (auto) 1.2 Sodium 137 Potassium 4.2 Chloride 101 Carbon Dioxide 31 Anion Gap 5 L BUN 39 H Creatinine 1.8 H Estimated Creat Clear 48.13 Estimated GFR 40 Glucose 123 H Calcium 8.7 SARS-CoV-2 (PCR) Negative SARS-CoV-2 Influenza Type A (PCR) Negative PCR FLU A Influenza Type B (PCR) Negative PCR FLU B
[2023-10-14] MEDS: LIDOCAINE 5% PATCH 1 PATCH TRANSDERMA (13:34)
--- NOTE | 2023-10-14 14:31 | PC.NURSE ---
End of Shift: Patient pleasant and cooperative. Patient vitally stable, lungs clear, BS WNL, IV's SL and intact. Patient has rated back pain 7/10 all shift, tylenol and 10 mg of oxy given once, lidocaine patch applied to left lower back. Patient desats when he falls asleep, cpap applied with 4 L of oxygen bleeding through. Patient urinating well via urinal in bed. Patient did ambulate, two assist with walker, once this shift to have a BM using toilet, the EZ stand was used to get back to bed. Patient scrotum is swollen. Lower extremities with edema but not pitting. Tele=A.fib.
[2023-10-14 16:13] LABS: Fecal Occult Blood* Positive (Negative)
--- NOTE | 2023-10-14 17:53 | PC.NURSE ---
Patient transferred from room 274 to CCU1 to monitor and use of ceiling adi lift. Patient is bedbound and is to use adi lift for transfers only until PT approves otherwise. Tolerates a regular diet. VSS.
[2023-10-14] MEDS: OMEPRAZOLE 20 MG CAPSULE DR 40 MG PO (17:54)
[2023-10-14] MEDS: PRAVASTATIN SODIUM 20 MG TABLET 80 MG PO (20:49)
[2023-10-14] MEDS: INSULIN ASPART 100 UNIT/ML SUBCUT (20:58)
[2023-10-14] MEDS: LOPERAMIDE HCL 2 MG CAPSULE PO ×2 (21:08→22:54)
[2023-10-14] MEDS: TAMSULOSIN HCL 0.4 MG CAPSULE 0.8 MG PO (21:16)
[2023-10-15] VITALS (9 sets, daily range): BP systolic 123–156; BP diastolic 58–77; PULSE 59–87; RESP 16–20; TEMP 36.3–37.2; O2SAT 88–91
--- NOTE | 2023-10-15 04:20 | PC.NURSE ---
Pt rested with home cpap overnight. O2 @ 89% on RA. Pt oriented x3. Unable to get up from bed. Pt incontinent of urine and stool. Assist 3-4 to clean and change. Chronic Back pain rated 6/10. Afebrile.
[2023-10-15] MEDS: LEVOTHYROXINE 125 MCG TABLET PO (06:35)
[2023-10-15] MEDS: LEVOTHYROXINE 100 MCG TABLET PO (06:35)
[2023-10-15] MEDS: LOPERAMIDE HCL 2 MG CAPSULE PO (06:36)
[2023-10-15] MEDS: OXYCODONE 5 MG TABLET PO ×2 (06:36→22:11)
[2023-10-15 08:02] LABS: HCO3 VBG 31 mmol/L (21-28); PCO2 VBG 42 mmHG (40-50); PO2 VBG 58.8 mmHG (25-47); pH VBG 7.474 (7.32-7.43)
[2023-10-15 08:08] LABS: Basophils Absolute Auto 0.02 K/uL (0.00-0.30); Basophils Percent Auto 0.2 % (0.0-3.0); Eosinophils Absolute Auto 0.34 K/uL (0.00-0.50); Hematocrit 31.5 % (37.0-53.0); Hemoglobin* 9.2 gm/dL (13.5-17.5); Immature Granulocytes Abs Auto 0.07 K/uL (0.00-0.30); Immature Granulocytes Pct Auto 0.8 %; Lymphocytes Percent Auto 13.7 % (20-44); Mean Corpuscular HGB Conc 29 gm/dL (32-36); Mean Corpuscular Hemoglobin 21 pg (26-34); Mean Corpuscular Volume 72 fL (80-100); Monocytes Percent Auto 10.2 % (0.0-11.0); Neutrophils Absolute Auto 5.96 K/uL (1.7-7.0); Neutrophils Percent Auto 71.1 % (42.0-72.0); Platelet Count* 209 K/uL (140-440); RDW Coefficient of Variation % 18.2 % (11.5-15.5); Red Blood Count 4.35 m/uL (4.30-5.90)
[2023-10-15 08:10] LABS: Slide Review Reflex No
[2023-10-15 08:28] LABS: Anion Gap 11 mEq/L (7-15); Blood Urea Nitrogen* 37 mg/dL (7-30); Calcium* 8.4 mg/dL (8.4-10.6); Carbon Dioxide* 28 mmol/L (20-32); Chloride* 101 mmol/L (96-114); Creatinine* 1.7 mg/dL (0.5-1.5); Est. Creatinine Clearance* 50.96; Estimated Glomerular Filt Rate 43 ml/min; Glucose* 94 mg/dL (60-115); Potassium* 4.1 mmol/L (3.6-5.1); Sodium* 140 mmol/L (135-149)
[2023-10-15] MEDS: MAGNESIUM OXIDE 400 MG TABLET PO (09:02)
[2023-10-15] MEDS: dilTIAZem 30 MG TABLET 120 MG PO ×2 (09:02→22:02)
[2023-10-15] MEDS: SENNOSIDES 1 TAB TABLET 3 TAB PO ×2 (09:03→22:04)
[2023-10-15] MEDS: ACETAMINOPHEN 500 MG TABLET 1000 MG PO ×3 (09:03→22:01)
[2023-10-15] MEDS: allopurinoL 300 MG TABLET PO (09:03)
[2023-10-15] MEDS: FERROUS SULFATE 325 MG TABLET PO (09:03)
[2023-10-15] MEDS: glipiZIDE 5 MG TABLET PO ×2 (09:04→17:25)
[2023-10-15] MEDS: FUROSEMIDE 10 MG/ML inj 40 MG IVP (09:04)
[2023-10-15] MEDS: SODIUM BICARBONATE 650 MG TABLET 1300 MG PO ×3 (09:04→22:01)
[2023-10-15] MEDS: NYSTATIN POWDER 1 APPLIC TOPICAL (09:04)
[2023-10-15] MEDS: APIXABAN 5 MG TABLET PO ×2 (09:04→22:02)
[2023-10-15] MEDS: METFORMIN 1,000 MG TABLET 1000 MG PO ×2 (09:04→17:26)
[2023-10-15] MEDS: SODIUM CHLORIDE 0.9 % (FLUSH) 10 ML SYRINGE 5 ML IVF ×2 (09:06→22:29)
[2023-10-15] MEDS: DULOXETINE 30 MG CAPSULE DR PO ×2 (09:09→22:07)
[2023-10-15] MEDS: SPIRONOLACTONE 25 MG TABLET PO (09:09)
--- NOTE | 2023-10-15 10:24 | REH.OT ---
Patient greeted at bedside. Sleeping upon arrival but awakens to voice. Politely refuses therapy this morning, reports sleeping poorly overnight. Will reattempt later today.
[2023-10-15] MEDS: LIDOCAINE 5% PATCH 1 PATCH TRANSDERMA (13:45)
--- NOTE | 2023-10-15 15:07 | PM.IMPN1 ---
Progress Note: A&P Assessment and plan (1) Hypoxic respiratory failure: Problem details: Improving with diuresis efforts. Echo is unremarkable. CT chest for PE shows small pleural effusions and ground-glass infiltrates. Possibly pulmonary edema. Will continue diuresis though patient is having evidence of pre renal azotemia. Continue compression for lymphedema. Supplemental oxygen and ongoing evaluation. Status: Acute (2) Fall: Problem details: Fall on the day of admission causing new back injury with acute on chronic back pain. Pain is adequately subjectively controlled with medication. Not obviously getting much better. Status: Acute (3) Spinal stenosis, lumbar region without neurogenic claudication: Problem details: MRI at [place] February 2023. Right-sided impingement at L2-3 impinging on right L3 nerve root, spinal stenosis at L3-4 and L4-5 and compression of the cauda equina nerve roots which was unchanged from previous MRI. Multilevel neural foraminal narrowing advanced on the right at L4-5 and bilaterally at L5-S1. Medically managed with injections at [place] without good relief. Previously deemed not to be a surgical candidate. Status: Acute (4) Physical debility: Problem details: Physical debility related to weakness relative to spinal stenosis and body habitus which has required multiple [facility] facility visits for rehab to return home with his . Status: Acute (5) Diabetic peripheral neuropathy associated with type 2 diabetes mellitus: Status: Acute (6) Morbid obesity with BMI of 50.0-59.9, adult: Problem details: Complicating cares and testing Status: Acute (7) Adenocarcinoma, colon: Problem details: Right laparoscopic hemicolectomy 05/12/2023 at [place]. Not receiving adjuvant chemotherapy. Focusing on palliative care. Status: Acute (8) Generalized weakness: Problem details: On a good day he can walk with a walker independently. Currently unable to get to standing without assistance of 2 people. Try to establish a safe discharge disposition plan. Status: Acute (9) Scrotal edema: Problem details: Patient developing anasarca. This appears to be primarily due to lymphedema, does not appear to be due to heart failure, liver failure, renal failure. Continue conservative treatment as well as diuresis as tolerated. Creatinine and BUN are still elevated but gradually improving. Status: Acute (10) Diastolic CHF: Problem details: Appears to have mild pulmonary edema developing. Continue diuresis as tolerated. Status: Suspected (11) TARA (acute kidney injury): Problem details: - On CKD stage 3. Creatinine very slowly improving. Continue to monitor. Continue diuresis due to concern about heart failure with close monitoring of fluid, creatinine and electrolytes Status: Acute (12) Edema, peripheral: Problem details: Per patient his edema is worse than usual. Unfortunately his lab suggest prerenal azotemia. Focus on elevation and compression to deal with peripheral edema and monitor renal function. Status: Acute (13) Back injury: Problem details: Acute on chronic back injury related to fall yesterday. Continue therapy. Status: Acute (14) Lactate blood increased: Problem details: Lactate of 2.4. No other sign of focus of infection or sepsis. Normalized. Status: Acute (15) Candidiasis of skin: Problem details: Good hygiene, nystatin Status: Acute (16) Atrial fibrillation: Problem details: Chronic A. Fib. Decision was made to hold anticoagulation due to concerns about ongoing bleeding and chronic iron deficiency anemia. Rate controlled. Will initiate apixaban while he is in the hospital to monitor for bleeding and to address high risk for VTE. Status: Acute (17) Anemia: Problem details: Microcytic, chronic. Iron deficiency documented. Chronic. Start iron supplement. Monitor hemoglobin on apixaban. Status: Acute (18) Poor intravenous access: Problem details: Difficult blood draw. Status: Acute Plan 1. Reviewed impression with patient 2. Reviewed plans with patient 3. Answered his questions 4. Patient agreeable to above stated plans and recommendations Time Spent With Patient Total time spent: 45 minutes Subjective Date Seen: 10/15/23 Interval history: Zoltan Olivera is a 72 year old male with a complicated past medical history that includes colon cancer, microcytic anemia, type 2 diabetes mellitus, chronic physical debility and declining functional status, spinal stenosis, chronic lumbar radiculopathy, BRITTNEY, morbid obesity, atrial paroxysmal tachycardia, hypertension, and chronic kidney disease stage 3 who has been in an out of the hospital and rehab for declining functional status and physical debility and presented through the ER [on 10/11/2023] for fall and generalized weakness. He has been at home for a couple of months after his most recent rehab stay. He... had been trying to get stronger so he could be considered for chemotherapy, however he had a recent telehealth appointment with his oncologist who has determined that his poor performance status makes the risks of chemotherapy outweigh the benefits. His prognosis is considered overall to be dismal due to other comorbidities. He tells me that while at home he has been declining and getting weaker. He has tried to put on a brief face for his , and tells me that he probably has not been honest with her about how weak he has been getting. In the last couple months he has also had increasing fluid buildup on both lower extremities. He was started on Lasix but he was having to go to the bathroom frequently and this was wearing him out, so the dose was decreased. The swelling has been getting worse and he now has swelling in his scrotum as well that makes it more difficult to use a urinal. He also complains of pain in both knees and generalized weakness. When he gets this way his leg start giving out. This was an issue when I took care of him in the hospital last February as well. Today his legs gave out and he fell. He hit his head but did not lose consciousness. He also injured his low back. He complains of a diffuse headache since falling. He denies any blurry vision. He denies any chest pain. He does feel short of breath with about 10 ft of ambulation. He denies orthopnea or paroxysmal nocturnal dyspnea. Has multilevel disease in his lumbar spine. He has had evaluation with a spine surgeon at [facility]. He tells me the spine surgeon is he repeatedly giving back injections to see if he can get some benefit. Patient reports these have not been helpful. October 11: Patient reports his headache is better today. His back pain is still bothering him quite a bit. No cold, cough, chest pain, shortness of breath, nausea, vomiting. Does have a tendency towards constipation. Overnight is been incontinent of urine which occurs when he is supine. Requiring heavy assist of 2 nurses to stand and transfer today. Lower extremity edema and scrotal swelling are unchanged. October 12: Last night patient of was feeling some dyspnea. Had a chest x-ray with no acute change. This morning is been noted to be mildly hypoxic in the 80s. He is not having chest pain he reports some cough and some dyspnea with this. He has not had any fever. Continues to be bothered by his back pain. October 13: Patient reports hypoxia is a little better. He had fairly severe fatigue and malaise yesterday and that is better. Thinks his back pain is about the same. Still requiring moderately high doses of oxycodone and poorly tolerating transfers. His appetite is a little better today. He had a small hard stool today. 10/15/2023: He estimates his general condition is only slightly improved today compared to yesterday. Trying to work with physical therapy and occupational therapy and possibly making minor improvements. Still has dyspnea and fatigue. Pain still difficult to manage. The headache that he presented with his since resolved. Tolerating diuresis efforts. Denies orthostasis, near-syncope, lightheadedness, or dizziness. Exam Narrative: Exam Narrative: I examine him in his hospital room. He is lying supine in his hospital bed. Appears comfortable. Adequate hearing and vision. Alert and oriented to self, place, time, situation. Cooperative friendly. Continues to have weakness of lower extremities. Difficulty moving his legs at the hip joint. Upper extremity strength intact and symmetric. Has bilateral lower extremity edema and scrotal edema. Lungs fairly clear to auscultation with rhonchi that clears with coughing. No wheezing or crackles. Chest wall excursions are full. Heart tones are distant with regular rhythm, normal S1-S2 without obvious murmur, gallop, or rub. PMI is not laterally displaced. Abdomen is obese with active bowel sounds, soft, nontender. Skin is intact. Weight today on bed scale is 210.3 kg compared to 208.7 kg yesterday. BUN and creatinine are slowly decreasing. BUN 37 and creatinine 1.7 today. Const: Vital Signs, click to edit/add: Vital Signs - 24 hr 10/14/23 19:12 10/14/23 22:13 10/14/23 22:56 Temperature 98.4 F 97.3 F L Pulse Rate 74 Pulse Rate [Left P ulse Oximeter] 79 80 Respiratory Rate 16 16 Blood Pressure [Le ft Arm] Blood Pressure [le ft forearm] 141/59 H 112/69 Pulse Oximetry 89 89 Oxygen Delivery Me thod Room Air Room Air Oxygen Flow Rate 10/14/23 23:34 10/14/23 23:36 10/15/23 02:20 Temperature 97.6 F Pulse Rate Pulse Rate [Left P ulse Oximeter] 80 73 Respiratory Rate 16 16 16 Blood Pressure [Le ft Arm] Blood Pressure [le ft forearm] 135/58 L Pulse Oximetry 89 89 Oxygen Delivery Me thod Room Air Room Air Oxygen Flow Rate 10/15/23 07:31 10/15/23 07:31 10/15/23 07:35 Temperature 98.8 F Pulse Rate 82 Pulse Rate [Left P ulse Oximeter] 83 Respiratory Rate 18 18 Blood Pressure [Le ft Arm] Blood Pressure [le ft forearm] 156/75 H Pulse Oximetry 88 88 Oxygen Delivery Me thod Room Air Room Air Oxygen Flow Rate 0 10/15/23 11:04 10/15/23 14:47 Temperature 99.0 F 97.8 F Pulse Rate Pulse Rate [Left P ulse Oximeter] 87 75 Respiratory Rate 20 18 Blood Pressure [Le ft Arm] 123/68 Blood Pressure [le ft forearm] 143/77 H Pulse Oximetry 90 90 Oxygen Delivery Me thod CPAP CPAP Oxygen Flow Rate 1 1 Labs Labs: Laboratory Results - last 24 hr 10/12/23 10/15/23 Unknown 07:52 WBC 8.40 RBC 4.35 Hgb 9.2 L Hct 31.5 L MCV 72 L MCH 21 L MCHC 29 L RDW Coeff of Liana 18.2 H Plt Count 209 Neut % (Auto) 71.1 Lymph % (Auto) 13.7 L Webster % (Auto) 10.2 Eos % (Auto) 4.0 Baso % (Auto) 0.2 Neut # (Auto) 5.96 Lymph # (Auto) 1.20 Webster # (Auto) 0.90 Eos # (Auto) 0.34 Baso # (Auto) 0.02 Abs Immat Gran (auto) 0.07 Imm/Tot Granulo (auto) 0.8 VBG pH 7.474 H VBG pCO2 42 VBG pO2 58.8 H VBG HCO3 31 H Sodium 140 Potassium 4.1 Chloride 101 Carbon Dioxide 28 Anion Gap 11 BUN 37 H Creatinine 1.7 H Estimated Creat Clear 50.96 Estimated GFR 43 Glucose 94 Calcium 8.4 Stool Occult Blood Positive
[2023-10-15] MEDS: OMEPRAZOLE 20 MG CAPSULE DR 40 MG PO (17:25)
--- NOTE | 2023-10-15 18:38 | PC.NURSE ---
Pt alert and oriented. Pt had complaints of pain ranging from 4-7; see EMAR. Pt up with a ceiling lift. Pt wears CPAP while sleeping with one Liter per RT oxygenation goal is 86-92%. Pt was pleasant and cooperative during shift. Pt napped on and off throughout the day.?
[2023-10-15] MEDS: TAMSULOSIN HCL 0.4 MG CAPSULE 0.8 MG PO (22:03)
[2023-10-15] MEDS: PRAVASTATIN SODIUM 20 MG TABLET 80 MG PO (22:05)
[2023-10-15] MEDS: INSULIN ASPART 100 UNIT/ML SUBCUT (22:09)
[2023-10-16] VITALS (12 sets, daily range): BP systolic 122–146; BP diastolic 60–74; PULSE 63–83; RESP 18–20; TEMP 36.4–36.6; O2SAT 87–95
[2023-10-16] MEDS: NYSTATIN POWDER 1 APPLIC TOPICAL ×2 (03:27→08:47)
[2023-10-16] MEDS: OXYCODONE 5 MG TABLET PO ×3 (04:16→19:49)
[2023-10-16] MEDS: LEVOTHYROXINE 100 MCG TABLET PO (06:35)
[2023-10-16] MEDS: LEVOTHYROXINE 125 MCG TABLET PO (06:35)
[2023-10-16 07:06] LABS: Basophils Absolute Auto 0.02 K/uL (0.00-0.30); Basophils Percent Auto 0.2 % (0.0-3.0); Hematocrit 29.2 % (37.0-53.0); Hemoglobin* 8.5 gm/dL (13.5-17.5); Immature Granulocytes Abs Auto 0.11 K/uL (0.00-0.30); Immature Granulocytes Pct Auto 1.3 %; Lymphocytes Percent Auto 15.5 % (20-44); Mean Corpuscular HGB Conc 29 gm/dL (32-36); Mean Corpuscular Hemoglobin 21 pg (26-34); Mean Corpuscular Volume 74 fL (80-100); Monocytes Percent Auto 11.9 % (0.0-11.0); Neutrophils Absolute Auto 5.41 K/uL (1.7-7.0); Neutrophils Percent Auto 65.1 % (42.0-72.0); Platelet Count* 232 K/uL (140-440); RDW Coefficient of Variation % 18.1 % (11.5-15.5); Red Blood Count 3.97 m/uL (4.30-5.90); White Blood Count* 8.32 K/uL (4.50-11.00)
[2023-10-16 07:20] LABS: Slide Review Reflex No
--- NOTE | 2023-10-16 07:31 | PC.NURSE ---
Patient pleasant, alert and oriented.?Remained in bed all shift. Continent of urine during night. Given PRN Oxycodone x2 for pain in low back rated 8/10. ?
[2023-10-16 07:36] LABS: Chloride* 100 mmol/L (96-114); Potassium* 4.1 mmol/L (3.6-5.1); Sodium* 137 mmol/L (135-149)
[2023-10-16 07:39] LABS: Anion Gap 6 mEq/L (7-15); Blood Urea Nitrogen* 36 mg/dL (7-30); Calcium* 8.5 mg/dL (8.4-10.6); Carbon Dioxide* 31 mmol/L (20-32); Creatinine* 1.7 mg/dL (0.5-1.5); Est. Creatinine Clearance* 50.96; Estimated Glomerular Filt Rate 43 ml/min; Glucose* 120 mg/dL (60-115)
[2023-10-16] MEDS: SODIUM BICARBONATE 650 MG TABLET 1300 MG PO ×3 (08:48→21:12)
[2023-10-16] MEDS: FERROUS SULFATE 325 MG TABLET PO (08:49)
[2023-10-16] MEDS: METFORMIN 1,000 MG TABLET 1000 MG PO ×2 (08:49→17:51)
[2023-10-16] MEDS: APIXABAN 5 MG TABLET PO ×2 (08:49→21:14)
[2023-10-16] MEDS: ACETAMINOPHEN 500 MG TABLET 1000 MG PO ×3 (08:49→21:13)
[2023-10-16] MEDS: PREGABALIN 75 MG CAPSULE 150 MG PO ×2 (08:49→21:24)
[2023-10-16] MEDS: glipiZIDE 5 MG TABLET PO ×2 (08:50→17:51)
[2023-10-16] MEDS: dilTIAZem 30 MG TABLET 120 MG PO ×2 (08:50→21:13)
[2023-10-16] MEDS: SENNOSIDES 1 TAB TABLET 3 TAB PO (08:50)
[2023-10-16] MEDS: allopurinoL 300 MG TABLET PO (08:50)
[2023-10-16] MEDS: MAGNESIUM OXIDE 400 MG TABLET PO (08:50)
[2023-10-16] MEDS: SPIRONOLACTONE 25 MG TABLET PO (08:51)
[2023-10-16] MEDS: DULOXETINE 30 MG CAPSULE DR PO ×2 (08:51→21:25)
[2023-10-16] MEDS: SODIUM CHLORIDE 0.9 % (FLUSH) 10 ML SYRINGE 5 ML IVF ×2 (08:59→21:14)
[2023-10-16] MEDS: FUROSEMIDE 10 MG/ML inj 60 MG IVP (10:42)
[2023-10-16] MEDS: LIDOCAINE 5% PATCH 1 PATCH TRANSDERMA (14:38)
--- NOTE | 2023-10-16 14:43 | PM.IMPN1 ---
Progress Note: A&P Assessment and plan (1) Hypoxic respiratory failure: Problem details: Improving with diuresis efforts. Echo is unremarkable. CT chest for PE shows small pleural effusions and ground-glass infiltrates. Possibly pulmonary edema. Will continue diuresis and monitoring for evidence of pre renal azotemia. Continue compression for lymphedema. Supplemental oxygen and ongoing evaluation. Status: Acute (2) Fall: Problem details: Fall on the day of admission causing new back injury with acute on chronic back pain. Pain is adequately subjectively controlled with medication. Not obviously getting much better. Status: Acute (3) Spinal stenosis, lumbar region without neurogenic claudication: Problem details: MRI at [facility] February 2023. Right-sided impingement at L2-3 impinging on right L3 nerve root, spinal stenosis at L3-4 and L4-5 and compression of the cauda equina nerve roots which was unchanged from previous MRI. Multilevel neural foraminal narrowing advanced on the right at L4-5 and bilaterally at L5-S1. Medically managed with injections at [facility] without good relief. Previously deemed not to be a surgical candidate. Status: Acute (4) Physical debility: Problem details: Physical debility related to weakness relative to spinal stenosis and body habitus which has required multiple custodial facility visits for rehab to return home with his . Current condition precludes him from being able to safely be discharged from the hospital directly home. Working on safe discharge disposition plan, including the possibility a transitional care unit admission verses a swing bed admission followed by a transitional care unit admission. Status: Acute (5) Diabetic peripheral neuropathy associated with type 2 diabetes mellitus: Problem details: Pregabalin dose decreased from 300 BID to 150 BID on 10/15/2023 due to muscle twitching on the higher dose - twitching has virtually abated as of 10/16/2023 Status: Acute (6) Morbid obesity with BMI of 50.0-59.9, adult: Problem details: Complicating cares and testing weights (kg): 10/13, 208.7 (40 mg Furosemide IV); 10/14, 209.8 (40 mg Furosemide IV); 10/15, 209.6 (60 mg Furosemide IV) Status: Acute (7) Adenocarcinoma, colon: Problem details: Right laparoscopic hemicolectomy 05/12/2023 at [facility]. Not receiving adjuvant chemotherapy. Focusing on palliative care. Status: Acute (8) Generalized weakness: Problem details: On a good day he can walk with a walker independently. Currently unable to get to standing without assistance of 2 people. Try to establish a safe discharge disposition plan. Status: Acute (9) Scrotal edema: Problem details: Patient developing anasarca. This appears to be primarily due to lymphedema, does not appear to be due to heart failure, liver failure, renal failure. Continue conservative treatment as well as diuresis as tolerated (see Diastolic HF entry). Status: Acute (10) Diastolic CHF: Problem details: Appears to have mild pulmonary edema developing. Continue diuresis as tolerated. weights (kg): 10/13, 208.7 (40 mg Furosemide IV, Cr 1.8, BUN 39); 10/14, 209.8 (40 mg Furosemide IV, Cr 1.7, BUN 37); 10/15, 209.6 (60 mg Furosemide IV, Cr 1.7, BUN 36) Status: Suspected (11) TARA (acute kidney injury): Problem details: - On CKD stage 3. Creatinine very slowly improving. Continue to monitor. Continue diuresis due to concern about heart failure with close monitoring of fluid, creatinine and electrolytes Status: Acute (12) Edema, peripheral: Problem details: Per patient his edema is worse than usual. Unfortunately his lab suggest prerenal azotemia. Focus on elevation and compression to deal with peripheral edema and monitor renal function. Status: Acute (13) Back injury: Problem details: Acute on chronic back injury related to fall yesterday. Continue therapy. Status: Acute (14) Lactate blood increased: Problem details: Lactate of 2.4. No other sign of focus of infection or sepsis. Normalized. Status: Acute (15) Candidiasis of skin: Problem details: Good hygiene, nystatin Status: Acute (16) Atrial fibrillation: Problem details: Chronic A. Fib. Decision was made to hold anticoagulation due to concerns about ongoing bleeding and chronic iron deficiency anemia. Rate controlled. Will initiate apixaban while he is in the hospital to monitor for bleeding and to address high risk for VTE. Status: Acute (17) Anemia: Problem details: Microcytic, chronic. Iron deficiency documented. Chronic. Start iron supplement. Monitor hemoglobin on apixaban. Status: Acute (18) Poor intravenous access: Problem details: Difficult blood draw. Status: Acute Plan 1. Reviewed impression and plans with patient and . 2. Answered their questions are satisfaction. 3. They are agreeable to above stated plans and recommendations. Time Spent With Patient Total time spent: 55 min Subjective Date Seen: 10/16/23 Interval history: Zoltan Olivera is a 72 year old male with a complicated past medical history that includes colon cancer, microcytic anemia, type 2 diabetes mellitus, chronic physical debility and declining functional status, spinal stenosis, chronic lumbar radiculopathy, BRITTNEY, morbid obesity, atrial paroxysmal tachycardia, hypertension, and chronic kidney disease stage 3 who has been in an out of the hospital and rehab for declining functional status and physical debility and presented through the ER [on 10/11/2023] for fall and generalized weakness. He has been at home for a couple of months after his most recent rehab stay. He... had been trying to get stronger so he could be considered for chemotherapy, however he had a recent telehealth appointment with his oncologist who has determined that his poor performance status makes the risks of chemotherapy outweigh the benefits. His prognosis is considered overall to be dismal due to other comorbidities. He tells me that while at home he has been declining and getting weaker. He has tried to put on a brief face for his , and tells me that he probably has not been honest with her about how weak he has been getting. In the last couple months he has also had increasing fluid buildup on both lower extremities. He was started on Lasix but he was having to go to the bathroom frequently and this was wearing him out, so the dose was decreased. The swelling has been getting worse and he now has swelling in his scrotum as well that makes it more difficult to use a urinal. He also complains of pain in both knees and generalized weakness. When he gets this way his leg start giving out. This was an issue when I took care of him in the hospital last February as well. Today his legs gave out and he fell. He hit his head but did not lose consciousness. He also injured his low back. He complains of a diffuse headache since falling. He denies any blurry vision. He denies any chest pain. He does feel short of breath with about 10 ft of ambulation. He denies orthopnea or paroxysmal nocturnal dyspnea. Has multilevel disease in his lumbar spine. He has had evaluation with a spine surgeon at [facility]. He tells me the spine surgeon is he repeatedly giving back injections to see if he can get some benefit. Patient reports these have not been helpful. October 11: Patient reports his headache is better today. His back pain is still bothering him quite a bit. No cold, cough, chest pain, shortness of breath, nausea, vomiting. Does have a tendency towards constipation. Overnight is been incontinent of urine which occurs when he is supine. Requiring heavy assist of 2 nurses to stand and transfer today. Lower extremity edema and scrotal swelling are unchanged. October 12: Last night patient of was feeling some dyspnea. Had a chest x-ray with no acute change. This morning is been noted to be mildly hypoxic in the 80s. He is not having chest pain he reports some cough and some dyspnea with this. He has not had any fever. Continues to be bothered by his back pain. October 13: Patient reports hypoxia is a little better. He had fairly severe fatigue and malaise yesterday and that is better. Thinks his back pain is about the same. Still requiring moderately high doses of oxycodone and poorly tolerating transfers. His appetite is a little better today. He had a small hard stool today. 10/15/2023: He estimates his general condition is only slightly improved today compared to yesterday. Trying to work with physical therapy and occupational therapy and possibly making minor improvements. Still has dyspnea and fatigue. Pain still difficult to manage. The headache that he presented with his since resolved. Tolerating diuresis efforts. Denies orthostasis, near-syncope, lightheadedness, or dizziness. 10/16/2023: He indicates he feels physically about the same as yesterday. He is actually able to tolerate transfer with the ceiling lift today and sitting at the bedside in the recliner chair for the 1st time during this hospital stay. Still requiring modest doses of oxycodone for control of back pain. Eating and drinking are noticeably improved but still not at baseline. Acknowledges difficulty sorting through his current condition including asking himself questions such as, why do I have to go through this? Denies depression, suicidal thoughts or ideations. Exam Narrative: Exam Narrative: I examine him in his hospital room. He is sitting comfortably in the recliner be side his hospital bed. No acute distress. Vision and hearing are adequate. Alert and oriented to self, place, time, situation. Friendly cooperative. Lungs clear to auscultation. Heart tones with regular rhythm. Abdomen obese with active bowel sounds, soft, nontender. Edema of bilateral lower extremities. No focal motor neurologic deficits. Generalized weakness. Const: Vital Signs, click to edit/add: Vital Signs - 24 hr 10/15/23 14:47 10/15/23 16:25 10/15/23 22:16 Temperature 97.8 F 97.3 F L Pulse Rate 72 Pulse Rate [Left P ulse Oximeter] 75 80 Respiratory Rate 18 17 Blood Pressure [le ft forearm] 143/77 H 138/69 Pulse Oximetry 90 91 Oxygen Delivery Me thod CPAP CPAP Oxygen Flow Rate 1 1 10/15/23 23:00 10/15/23 23:00 10/16/23 03:00 Temperature 97.5 F L Pulse Rate 59 L Pulse Rate [Left P ulse Oximeter] 71 Respiratory Rate 17 20 Blood Pressure [le ft forearm] 122/60 Pulse Oximetry 91 88 Oxygen Delivery Me thod CPAP Oxygen Flow Rate 1 10/16/23 07:30 10/16/23 07:52 10/16/23 07:52 Temperature 97.7 F Pulse Rate 83 Pulse Rate [Left P ulse Oximeter] 78 Respiratory Rate 18 18 Blood Pressure [le ft forearm] 146/72 H Pulse Oximetry 89 89 Oxygen Delivery Me thod Room Air Room Air Oxygen Flow Rate 0 10/16/23 10:43 Temperature 97.8 F Pulse Rate Pulse Rate [Left P ulse Oximeter] 69 Respiratory Rate 18 Blood Pressure [le ft forearm] 145/60 H Pulse Oximetry 88 Oxygen Delivery Me thod Room Air Oxygen Flow Rate Labs Labs: Laboratory Results - last 24 hr 10/16/23 06:35 WBC 8.32 RBC 3.97 L Hgb 8.5 L Hct 29.2 L MCV 74 L MCH 21 L MCHC 29 L RDW Coeff of Liana 18.1 H Plt Count 232 Neut % (Auto) 65.1 Lymph % (Auto) 15.5 L [place] % (Auto) 11.9 H Eos % (Auto) 6.0 Baso % (Auto) 0.2 Neut # (Auto) 5.41 Lymph # (Auto) 1.30 [place] # (Auto) 1.00 H Eos # (Auto) 0.50 Baso # (Auto) 0.02 Abs Immat Gran (auto) 0.11 Imm/Tot Granulo (auto) 1.3 Sodium 137 Potassium 4.1 Chloride 100 Carbon Dioxide 31 Anion Gap 6 L BUN 36 H Creatinine 1.7 H Estimated Creat Clear 50.96 Estimated GFR 43 Glucose 120 H Calcium 8.5
--- NOTE | 2023-10-16 16:39 | RESP.RT ---
Patient has very weak periferal pulses and even though the SpO2 wave form on his fingers looks accurate, his SATs range from upper 90s-low 70s. Forehead probes and nasal probe is recommended and his SATs remain upper 80s and lower 90s when these probes are used. He is able to use his BiPAP independently.
[2023-10-16] MEDS: OMEPRAZOLE 20 MG CAPSULE DR 40 MG PO (17:51)
--- NOTE | 2023-10-16 18:29 | PC.NURSE ---
Pt alert and oriented. Pt had complaints of pain ranging from 4-7; see EMAR. Pt up with a ceiling lift. Pt wears CPAP while sleeping with one Liter per RT oxygenation goal is 86-92%. Pt was pleasant and cooperative during shift. Pt napped on and off throughout the day. Pt up to chair for two hours x 2 times today.?
[2023-10-16] MEDS: TAMSULOSIN HCL 0.4 MG CAPSULE 0.8 MG PO (21:12)
[2023-10-16] MEDS: PRAVASTATIN SODIUM 20 MG TABLET 80 MG PO (21:13)
--- NOTE | 2023-10-16 22:27 | P.IMPN_ITS ---
Progress Note: A&P Assessment and plan (1) Hypoxic respiratory failure: Problem details: Improving with diuresis efforts. Echo is unremarkable. CT chest for PE shows small pleural effusions and ground-glass infiltrates. -PO Lasix regimen at home was 20 BID, rec'd oral toresmide and IV lasix here -Lasix 40 mg BID PO as of 10/17/23 Status: Acute (2) Fall: Problem details: Fall on the day of admission causing new back injury with acute on chronic back pain. Pain is adequately subjectively controlled with medication. Not obviously getting much better. Status: Acute (3) TARA (acute kidney injury): Problem details: - On CKD stage 3. Creatinine very slowly improving. Continue to monitor. Continue diuresis due to concern about heart failure with close monitoring of fluid, creatinine and electrolytes Status: Acute (4) Spinal stenosis, lumbar region without neurogenic claudication: Problem details: MRI at [place] February 2023. Right-sided impingement at L2-3 impinging on right L3 nerve root, spinal stenosis at L3-4 and L4-5 and compression of the cauda equina nerve roots which was unchanged from previous MRI. Multilevel neural foraminal narrowing advanced on the right at L4-5 and bilaterally at L5-S1. Medically managed with injections at [place] without good relief. Previously deemed not to be a surgical candidate. Status: Acute (5) Physical debility: Problem details: Physical debility related to weakness relative to spinal stenosis and body habitus which has required multiple long-term facility visits for rehab to return home with his . Current condition precludes him from being able to safely be discharged from the hospital directly home. Working on safe discharge disposition plan, including the possibility a transitional care unit admission verses a swing bed admission followed by a transitional care unit admission. Status: Acute (6) Diabetic peripheral neuropathy associated with type 2 diabetes mellitus: Problem details: Pregabalin dose decreased from 300 BID to 150 BID on 10/15/2023 due to muscle twitching on the higher dose - twitching has virtually abated as of 10/16/2023 Status: Acute (7) Morbid obesity with BMI of 50.0-59.9, adult: Problem details: Complicating cares and testing weights (kg): 10/13, 208.7 (40 mg Furosemide IV); 10/14, 209.8 (40 mg Furosemide IV); 10/15, 209.6 (60 mg Furosemide IV) Status: Acute (8) Adenocarcinoma, colon: Problem details: Right laparoscopic hemicolectomy 05/12/2023 at [place]. Not receiving adjuvant chemotherapy. Focusing on palliative care. Status: Acute (9) Generalized weakness: Problem details: On a good day he can walk with a walker independently. Currently unable to get to standing without assistance of 2 people. Try to establish a safe discharge disposition plan. Status: Acute (10) Scrotal edema: Problem details: Patient developing anasarca. This appears to be primarily due to lymphedema, does not appear to be due to heart failure, liver failure, renal failure. Continue conservative treatment as well as diuresis as tolerated (see Diastolic HF entry). Status: Acute (11) Diastolic CHF: Problem details: Appears to have mild pulmonary edema developing. Continue diuresis as tolerated. weights (kg): 10/13, 208.7 (40 mg Furosemide IV, Cr 1.8, BUN 39); 10/14, 209.8 (40 mg Furosemide IV, Cr 1.7, BUN 37); 10/15, 209.6 (60 mg Furosemide IV, Cr 1.7, BUN 36) Status: Suspected (12) Edema, peripheral: Problem details: Per patient his edema is worse than usual. Unfortunately his lab suggest prerenal azotemia. Focus on elevation and compression to deal with peripheral edema and monitor renal function. Status: Acute (13) Back injury: Problem details: Acute on chronic back injury related to fall yesterday. Continue therapy. Status: Acute (14) Lactate blood increased: Problem details: Lactate of 2.4. No other sign of focus of infection or sepsis. Normalized. Status: Acute (15) Candidiasis of skin: Problem details: Good hygiene, nystatin Status: Acute (16) Atrial fibrillation: Problem details: Chronic A. Fib. Decision was made to hold anticoagulation due to concerns about ongoing bleeding and chronic iron deficiency anemia. Rate controlled. Will initiate apixaban while he is in the hospital to monitor for bleeding and to address high risk for VTE. Status: Acute (17) Anemia: Problem details: Microcytic, chronic. Iron deficiency documented. Chronic. Start iron supplement. Monitor hemoglobin on apixaban. Status: Acute (18) Poor intravenous access: Problem details: Difficult blood draw. Status: Acute Subjective Date Seen: 07/01/24 Interval history: Daily Progress Note - Hospital Medicine #: 7 CC: Fall with subsequent hypoxia, needs safe discharge plan OVERNIGHT UPDATES FROM STAFF & MED, LAB, IMAGING UPDATES -stable night. -hemoglobin is stable actually up from 8.5-8.9 -creatine is at 1.7, baseline is 1.2 -and patient has been very hesitant to return to trials of the easy stand no giv en his recent fall. Currently needing a ceiling left. -he reports pain management is of adequate this morning. Objective: Tired appearing. Mildly disheveled. He is sitting comfortably in the recliner be side his hospital bed. No acute distress. Vision and hearing are adequate. Alert and oriented to self, place, time, situation. Friendly cooperative. Lungs clear to auscultation. Heart tones with regular rhythm. Abdomen obese with active bowel sounds, soft, nontender. Edema of bilateral lower extremities. No focal motor neurologic deficits. Generalized weakness. Disposition/Potential discharge - Likely to return to previous living situation. Today I spent 50minutes seeing the patient, reviewing Expanse and EPIC notes/diagnostics, discussing the care plan with our care time that includes social work, PT/OT, pharmacy, RT, long-term and documenting my impressions and plan in the medical record. Exam Const: Vital Signs, click to edit/add: Vital Signs - 24 hr 10/15/23 23:00 10/15/23 23:00 10/16/23 03:00 Temperature 97.5 F L Pulse Rate 59 L Pulse Rate [Left P ulse Oximeter] 71 Respiratory Rate 17 20 Blood Pressure [le ft forearm] 122/60 Pulse Oximetry 91 88 Oxygen Delivery Me thod CPAP Oxygen Flow Rate 1 10/16/23 07:30 10/16/23 07:52 10/16/23 07:52 Temperature 97.7 F Pulse Rate 83 Pulse Rate [Left P ulse Oximeter] 78 Respiratory Rate 18 18 Blood Pressure [le ft forearm] 146/72 H Pulse Oximetry 89 89 Oxygen Delivery Me thod Room Air Room Air Oxygen Flow Rate 0 10/16/23 10:43 10/16/23 14:42 10/16/23 14:46 Temperature 97.8 F 97.8 F Pulse Rate Pulse Rate [Left P ulse Oximeter] 69 69 Respiratory Rate 18 18 18 Blood Pressure [le ft forearm] 145/60 H 139/74 Pulse Oximetry 88 88 88 Oxygen Delivery Me thod Room Air Room Air Room Air Oxygen Flow Rate 0 10/16/23 15:16 10/16/23 19:45 Temperature Pulse Rate 66 Pulse Rate [Left P ulse Oximeter] 63 Respiratory Rate 18 Blood Pressure [le ft forearm] 135/69 Pulse Oximetry 91 Oxygen Delivery Me thod Room Air Oxygen Flow Rate Labs Labs: Laboratory Results - last 24 hr 10/16/23 06:35 WBC 8.32 RBC 3.97 L Hgb 8.5 L Hct 29.2 L MCV 74 L MCH 21 L MCHC 29 L RDW Coeff of Liana 18.1 H Plt Count 232 Neut % (Auto) 65.1 Lymph % (Auto) 15.5 L [place] % (Auto) 11.9 H Eos % (Auto) 6.0 Baso % (Auto) 0.2 Neut # (Auto) 5.41 Lymph # (Auto) 1.30 [place] # (Auto) 1.00 H Eos # (Auto) 0.50 Baso # (Auto) 0.02 Abs Immat Gran (auto) 0.11 Imm/Tot Granulo (auto) 1.3 Sodium 137 Potassium 4.1 Chloride 100 Carbon Dioxide 31 Anion Gap 6 L BUN 36 H Creatinine 1.7 H Estimated Creat Clear 50.96 Estimated GFR 43 Glucose 120 H Calcium 8.5
[2023-10-17] VITALS (11 sets, daily range): BP systolic 126–145; BP diastolic 55–73; PULSE 63–78; RESP 14–20; TEMP 36.6–37.3; O2SAT 86–95
[2023-10-17] MEDS: LEVOTHYROXINE 125 MCG TABLET PO (06:07)
[2023-10-17] MEDS: LEVOTHYROXINE 100 MCG TABLET PO (06:07)
--- NOTE | 2023-10-17 06:27 | PC.NURSE ---
End of shift [id number]: A&O pleasant and cooperative. Afebrile. Uses CPAP while sleeping. No oxygen bled through overnight and pt maintained sats in the high 90s. Pain in lower back reported. See eMAR for interventions. Turn and repo when pt allows. Using call light appropriately.
--- NOTE | 2023-10-17 07:00 | CRLHL7_ITS ---
For Patients: As a result of the Century Cures Act, medical imaging exams and procedure reports are released immediately into your electronic medical record. You may view this report before your referring provider. If you have questions, please contact your health care provider. Indication: Follow-up hypoxia/CHF. Technique: 1 View(s) of the chest. Comparison: CT 10/13/2023, radiographs 10/12/2023. Findings/Impression: Lines and tubes: None. Similar enlargement of the cardiomediastinal silhouette. Mild central pulmonary vascular congestion. Lungs are well inflated. Hazy bibasilar airspace opacities are similar to prior. No dense consolidation. Layering small pleural effusions are better seen on prior CT. No pneumothorax. Unchanged bones and soft tissues. Dictated by Lucinda Coello MD @ 10/17/2023 7:12:32 AM (Electronically Signed)
[2023-10-17 07:11] LABS: Basophils Absolute Auto 0.02 K/uL (0.00-0.30); Basophils Percent Auto 0.3 % (0.0-3.0); Eosinophils Percent Auto 8.2 % (0.0-7.0); Hemoglobin* 8.9 gm/dL (13.5-17.5); Immature Granulocytes Abs Auto 0.01 K/uL (0.00-0.30); Immature Granulocytes Pct Auto 0.1 %; Lymphocytes Absolute Auto 1.44 K/uL (0.90-2.90); Lymphocytes Percent Auto 20.8 % (20-44); Mean Corpuscular HGB Conc 29 gm/dL (32-36); Mean Corpuscular Hemoglobin 21 pg (26-34); Mean Corpuscular Volume 74 fL (80-100); Monocytes Percent Auto 8.8 % (0.0-11.0); Neutrophils Absolute Auto 4.26 K/uL (1.7-7.0); Neutrophils Percent Auto 61.8 % (42.0-72.0); Platelet Count* 238 K/uL (140-440); RDW Coefficient of Variation % 18.4 % (11.5-15.5); White Blood Count* 6.91 K/uL (4.50-11.00)
[2023-10-17 07:14] LABS: Slide Review Reflex No
[2023-10-17 07:16] LABS: Chloride* 100 mmol/L (96-114); Sodium* 137 mmol/L (135-149)
[2023-10-17 07:17] LABS: Albumin* 3.8 g/dL (3.3-5.0); Potassium* 4.3 mmol/L (3.6-5.1)
[2023-10-17 07:19] LABS: Anion Gap 8 mEq/L (7-15); Carbon Dioxide* 29 mmol/L (20-32)
[2023-10-17 07:20] LABS: Blood Urea Nitrogen* 38 mg/dL (7-30); Calcium* 8.5 mg/dL (8.4-10.6); Creatinine* 1.7 mg/dL (0.5-1.5); Est. Creatinine Clearance* 50.96; Estimated Glomerular Filt Rate 43 ml/min; Glucose* 123 mg/dL (60-115)
[2023-10-17] MEDS: OXYCODONE 5 MG TABLET PO ×3 (07:40→21:29)
[2023-10-17] MEDS: METFORMIN 1,000 MG TABLET 1000 MG PO ×2 (07:40→18:00)
[2023-10-17] MEDS: FUROSEMIDE 40 MG TABLET PO ×2 (07:40→14:15)
[2023-10-17] MEDS: FERROUS SULFATE 325 MG TABLET PO (07:41)
[2023-10-17] MEDS: glipiZIDE 5 MG TABLET PO ×2 (07:41→18:00)
[2023-10-17] MEDS: MAGNESIUM OXIDE 400 MG TABLET PO (09:44)
[2023-10-17] MEDS: ACETAMINOPHEN 500 MG TABLET 1000 MG PO ×3 (09:44→21:10)
[2023-10-17] MEDS: SODIUM BICARBONATE 650 MG TABLET 1300 MG PO ×3 (09:45→21:11)
[2023-10-17] MEDS: dilTIAZem 30 MG TABLET 120 MG PO ×2 (09:45→21:10)
[2023-10-17] MEDS: allopurinoL 300 MG TABLET PO (09:46)
[2023-10-17] MEDS: APIXABAN 5 MG TABLET PO ×2 (09:46→21:17)
[2023-10-17] MEDS: DULOXETINE 30 MG CAPSULE DR PO ×2 (09:46→21:11)
[2023-10-17] MEDS: NYSTATIN POWDER 1 APPLIC TOPICAL ×2 (09:47→21:17)
[2023-10-17] MEDS: SPIRONOLACTONE 25 MG TABLET PO (09:47)
[2023-10-17] MEDS: SODIUM CHLORIDE 0.9 % (FLUSH) 10 ML SYRINGE 5 ML IVF ×2 (09:47→21:12)
[2023-10-17] MEDS: PREGABALIN 75 MG CAPSULE 150 MG PO ×2 (09:51→21:20)
--- NOTE | 2023-10-17 15:09 | PC.SOCIAL ---
Discharge planning- Phone call to General Lot Attendant, Candi, at [facility] in [place] to get an update on patient's admit status. Left a voicemail for a return phone call back. Received a phone call from Candi informing that the facility is still waiting for the bariatric bed to be delivered to the facility. Candi informs she is working on getting updates on the status of delivery today. Candi will call social work with updates. Will continue to follow up as needed.
[2023-10-17] MEDS: ONDANSETRON ODT 4 MG TAB PO (16:27)
[2023-10-17] MEDS: OMEPRAZOLE 20 MG CAPSULE DR 40 MG PO (18:00)
--- NOTE | 2023-10-17 18:26 | PC.NURSE ---
End of Shift: Patient pleasant and cooperative. Patient vitally stable, lungs clear, BS WNL, IVs SL and intact. Patient ceiling lift to chair, but has stood to the side of the bed with therapy today using gb and walker. Patient was in chair once today, after returning to bed patient refused all activity, patient has slept a good amount of the day. Patient rates back pain 6-7/10, 10mg of oxy given twice. Patient tolerating regular diet eating breakfast and lunch. Patient reported nausea, zophran was ordered and given. Blood sugars 131,140,120. Tele=A.fib.
[2023-10-17] MEDS: PRAVASTATIN SODIUM 20 MG TABLET 80 MG PO (21:10)
[2023-10-17] MEDS: SENNOSIDES 1 TAB TABLET 3 TAB PO (21:10)
[2023-10-17] MEDS: TAMSULOSIN HCL 0.4 MG CAPSULE 0.8 MG PO (21:11)
[2023-10-17] MEDS: INSULIN ASPART 100 UNIT/ML SUBCUT (21:13)
[2023-10-18] VITALS (15 sets, daily range): BP systolic 116–147; BP diastolic 58–79; PULSE 56–78; RESP 12–18; TEMP 36.3–36.9; O2SAT 86–94
[2023-10-18] MEDS: LEVOTHYROXINE 100 MCG TABLET PO (06:11)
[2023-10-18] MEDS: LEVOTHYROXINE 125 MCG TABLET PO (06:11)
[2023-10-18 06:58] LABS: Hemoglobin* 8.7 gm/dL (13.5-17.5)
[2023-10-18 07:06] LABS: Albumin* 3.5 g/dL (3.3-5.0); Chloride* 102 mmol/L (96-114); Potassium* 4.1 mmol/L (3.6-5.1); Sodium* 138 mmol/L (135-149)
[2023-10-18 07:09] LABS: Anion Gap 4 mEq/L (7-15); Blood Urea Nitrogen* 36 mg/dL (7-30); Carbon Dioxide* 32 mmol/L (20-32); Creatinine* 1.8 mg/dL (0.5-1.5); Est. Creatinine Clearance* 48.13; Estimated Glomerular Filt Rate 40 ml/min; Glucose* 115 mg/dL (60-115)
[2023-10-18 07:10] LABS: Calcium* 8.5 mg/dL (8.4-10.6)
--- NOTE | 2023-10-18 07:18 | PC.NURSE ---
Pt alert and oriented x3. Afebrile. Pt reports 5-7 pain in back, pain managed with scheduled and PRN medication. Tele a-fib with normal ventricular rate. Pt uses urinal to void. Pt refuses turn and repositioning, educated on benefits of turn and repositioning and concerns of ulcer, pt refused. ?Pt wore CPAP throughout?night.?
[2023-10-18] MEDS: glipiZIDE 5 MG TABLET PO ×2 (07:49→18:21)
[2023-10-18] MEDS: FUROSEMIDE 40 MG TABLET PO ×2 (07:49→14:47)
[2023-10-18] MEDS: FERROUS SULFATE 325 MG TABLET PO (07:49)
[2023-10-18] MEDS: METFORMIN 1,000 MG TABLET 1000 MG PO ×2 (07:49→18:21)
[2023-10-18] MEDS: dilTIAZem 30 MG TABLET 120 MG PO ×2 (09:04→20:44)
[2023-10-18] MEDS: DULOXETINE 30 MG CAPSULE DR PO ×2 (09:04→20:45)
[2023-10-18] MEDS: allopurinoL 300 MG TABLET PO (09:04)
[2023-10-18] MEDS: SODIUM BICARBONATE 650 MG TABLET 1300 MG PO ×3 (09:04→20:46)
[2023-10-18] MEDS: ACETAMINOPHEN 500 MG TABLET 1000 MG PO ×3 (09:05→20:46)
[2023-10-18] MEDS: MAGNESIUM OXIDE 400 MG TABLET PO (09:05)
[2023-10-18] MEDS: SPIRONOLACTONE 25 MG TABLET PO (09:05)
[2023-10-18] MEDS: APIXABAN 5 MG TABLET PO ×2 (09:05→20:45)
[2023-10-18] MEDS: SODIUM CHLORIDE 0.9 % (FLUSH) 10 ML SYRINGE 5 ML IVF ×2 (09:06→20:47)
[2023-10-18] MEDS: NYSTATIN POWDER 1 APPLIC TOPICAL ×2 (09:06→20:47)
[2023-10-18] MEDS: OXYCODONE 5 MG TABLET PO ×2 (09:08→20:47)
[2023-10-18] MEDS: PREGABALIN 75 MG CAPSULE 150 MG PO ×2 (09:08→20:53)
--- NOTE | 2023-10-18 10:29 | P.IMPN_ITS ---
Progress Note: A&P Assessment and plan (1) TARA (acute kidney injury): Problem details: - On CKD stage 3. Creatinine is impaired from baseline. (1.2 --> 1.8) - Continue to monitor. - Continue diuresis as hypoxia is likely from ansaraca and he is currently managing on room air; thus we are accepting the TARA with increased diuresis Status: Acute (2) Anasarca: Problem details: -lasix 40mg BID -Tara induced -needs weight loss, high protein diet, lymphedema pumps and increase in mobility Status: Acute (3) Symptomatic anemia: Problem details: -has not recovered from initial anemia in late 2022 that was 2/2 colon cancer -rec'd iron infusions and blood initially -after hemicolectomy - stablized but remained less than 9 despite oral iron supplementation -10/17 - decided to transfuse to get above 10 for cardiac and weakness indicators -no active bleeding suspected Status: Chronic (4) Spinal stenosis, lumbar region without neurogenic claudication: Problem details: MRI at [facility] February 2023. Right-sided impingement at L2-3 impinging on right L3 nerve root, spinal stenosis at L3-4 and L4-5 and compression of the cauda equina nerve roots which was unchanged from previous MRI. Multilevel neural for aminal narrowing advanced on the right at L4-5 and bilaterally at L5-S1. Medically managed with injections at [facility] without good relief. Previously deemed not to be a surgical candidate. Status: Acute (5) Generalized weakness: Problem details: On a good day he can walk with a walker independently. Currently unable to get to standing without assistance of 2 people. ceiling lift dependent as of 10/18/23 Status: Acute (6) Hypoxic respiratory failure: Problem details: -resolved with diuresis efforts. Echo is unremarkable. CT chest for PE shows small pleural effusions and ground-glass infiltrates. -No antibiotics -PO Lasix regimen at home was 20 BID, rec'd oral toresmide and IV lasix here -Lasix 40 mg BID PO as of 10/17/23 -TARA induced with normal electrolytes; monitoring Status: Acute (7) Physical debility: Problem details: Physical debility related to weakness relative to spinal stenosis and body habitus which has required multiple retirement facility visits for rehab to return home with his . Current condition precludes him from being able to safely be discharged from the hospital directly home. Working on safe discharge disposition plan, including the possibility a transitional care unit Status: Acute (8) Morbid obesity with BMI of 50.0-59.9, adult: Problem details: Complicating cares and testing weights (kg): 10/13, 208.7 (40 mg Furosemide IV); 10/14, 209.8 (40 mg Furosemide IV); 10/15, 209.6 (60 mg Furosemide IV) 10/17: 208.5 kg (458#) -- Lasix 40mg BID Status: Acute (9) Adenocarcinoma, colon: Problem details: Right laparoscopic hemicolectomy 05/12/2023 at [facility]. Not receiving adjuvant chemotherapy. Focusing on palliative care. Status: Acute (10) Diastolic CHF: Problem details: mild pulmonary edema from combo of CHF but more likely from anasarca passively causing pulmonary congestion ISP aerobika Status: Suspected (11) Candidiasis of skin: Problem details: Good hygiene, nystatin Status: Acute (12) Atrial fibrillation: Problem details: Chronic A. Fib. -rate controlled and on OAC (Eliquis 5 BID) -chronic anemia without acute bleeding as of 10/18/23 Status: Acute (13) Poor intravenous access: Problem details: Difficult blood draw. Status: Inactive (14) Lumbar radiculopathy, chronic: Problem details: - Chronic right hip pain and weakness likely due to this. Multilevel lumbar radiculopathy. Clinically appears to be more of a problem with spinal stenosis causing weakness. - ongoing management with PCP Status: Acute (15) Lymphedema associated with obesity: Problem details: needs weight loss, high protein diet, lymphedema pumps and increase in mobility Status: Acute (16) Diabetes mellitus type 2 in obese: Problem details: - with peripheral neuropathy - Adequate control. Continue usual DM medications. - glucose checks ACHS, insulin sliding scale - outpatient follow-up with PCP Status: Chronic (17) BRITTNEY (obstructive sleep apnea): Problem details: - continue home CPAP Status: Chronic (18) Fall: Problem details: Fall on the day of admission causing new back injury with acute on chronic back pain. Pain is adequately subjectively controlled with medication. Not obviously getting much better. Status: Acute (19) Diabetic peripheral neuropathy associated with type 2 diabetes mellitus: Problem details: Pregabalin dose decreased from 300 BID to 150 BID on 10/15/2023 due to muscle twitching on the higher dose - twitching has virtually abated as of 10/16/2023 Status: Acute Subjective Date Seen: 10/18/23 Interval history: Daily Progress Note - Hospital Medicine #: 8 CC: Fall with acute worsening of chronic back pain and with subsequent hypoxia 2/2 anasarca, needs safe discharge plan OVERNIGHT UPDATES FROM STAFF & MED, LAB, IMAGING UPDATES -stable night. -hemoglobin persistently less than 9. no ABL. -creatine is at 1.8, baseline is 1.2 -and patient has been very hesitant to return to [facility] the easy stand given his recent fall. Currently needing a ceiling left. -he reports pain management is of adequate this morning. -seems depressed/flat affect -conference call with , [facility]. they would like us to send info for TCU to [facility]. Objective: Tired appearing. Mildly disheveled. He is sitting comfortably in the recliner be side his hospital bed. No acute distress. Vision and hearing are adequate. Alert and oriented to self, place, time, situation. Friendly cooperative. Lungs clear to auscultation. Heart tones with regular rhythm. Abdomen obese with active bowel sounds, soft, nontender. Edema of bilateral lower extremities. No focal motor neurologic deficits. Generalized weakness. Disposition/Potential discharge - TCU pending Today I spent 50minutes seeing the patient, reviewing Expanse and EPIC notes/diagnostics, discussing the care plan with our care time that includes social work, PT/OT, pharmacy, RT, retirement and documenting my impressions and plan in the medical record. Exam Const: Vital Signs, click to edit/add: Vital Signs - 24 hr 10/17/23 11:27 10/17/23 14:49 10/17/23 15:00 Temperature 99.1 F 98.5 F Pulse Rate Pulse Rate [Left P ulse Oximeter] 78 67 67 Respiratory Rate 14 18 18 Blood Pressure [le ft forearm] 143/73 H 142/68 H Pulse Oximetry 94 91 Oxygen Delivery Me thod Room Air Room Air 10/17/23 15:00 10/17/23 15:44 10/17/23 19:17 Temperature Pulse Rate 64 Pulse Rate [Left P ulse Oximeter] 69 Respiratory Rate 18 14 Blood Pressure [le ft forearm] 135/64 Pulse Oximetry 91 89 Oxygen Delivery Me thod Room Air Room Air 10/17/23 19:17 10/17/23 21:34 10/17/23 21:34 Temperature 97.8 F Pulse Rate Pulse Rate [Left P ulse Oximeter] 69 65 Respiratory Rate 14 14 14 Blood Pressure [le ft forearm] 130/70 Pulse Oximetry 88 88 Oxygen Delivery [place] thod Room Air Room Air 10/17/23 22:35 10/18/23 03:21 10/18/23 07:06 Temperature 97.5 F L Pulse Rate 69 67 Pulse Rate [Left P ulse Oximeter] 68 Respiratory Rate 14 Blood Pressure [le ft forearm] 116/58 L Pulse Oximetry 91 Oxygen Delivery Wv thod Room Air 10/18/23 07:49 10/18/23 07:49 10/18/23 07:49 Temperature 98 F Pulse Rate Pulse Rate [Left P ulse Oximeter] 72 72 Respiratory Rate 18 18 18 Blood Pressure [le ft forearm] 135/77 Pulse Oximetry [address] [facility] Labs Labs: Laboratory Results - last 24 hr 10/18/23 06:22 Hgb 8.7 L Sodium 138 Potassium 4.1 Chloride 102 Carbon Dioxide 32 Anion Gap 4 L BUN 36 H Creatinine 1.8 H Estimated Creat Clear 48.13 Estimated GFR 40 Glucose 115 Calcium 8.5 Phosphorus 4.0 Albumin 3.5
[2023-10-18] MEDS: INSULIN ASPART 100 UNIT/ML SUBCUT ×2 (12:15→20:48)
[2023-10-18] MEDS: 0.9 % SODIUM CHLORIDE 250 ml IV (12:48)
--- NOTE | 2023-10-18 14:15 | PC.SOCIAL ---
Addendum entered by AI Choi 10/18/23 16:03: [facility] uses [facility] in [place]. Provided information to charge nurse. Patient will qualify for non-emergency ambulance, charge nurse will set up transport for Tuesday at 10:00 am. Completed preadmission screening. Confirmation #[id number]. Faxed copy to [facility] at [phone]. Provided update on transport to Candi in admissions at [facility]. Original Note: Discharge planning- Per MD, patient would like this worker to check SNF availability at [facility] in [place]. Phone call to Sophie Monroy in admissions at [phone]. There is no male beds open and the facility can only accommodate up to 300 lbs. Phone call to Painting Instructor, Candi, at [facility] in [place] at [phone] to get an update on the bariatric bed that was ordered. Candi informs that the bariatric bed will be delivered by late afternoon tomorrow. Due to the holiday on , they are unable to take patient until Tuesday morning (as early as possible). Orders can be faxed to [facility] at [phone]. Met with patient and provided an update. Patient is agreeable to go Tuesday to [facility]. Provided update to MD and charge nurse. Social work will follow up as needed.
--- NOTE | 2023-10-18 17:31 | PC.NURSE ---
End of Shift: Patient pleasant and cooperative. Patient vitally stable, lungs clear, BS WNL, IVs SL and intact. Patient rates back pain 6-7/10, scheduled tylenol given and 10mg of oxy given once. Patient ceiling lift to chair and commode. Patient has been in commode once this shift. Patient tolerating regular diet, not with much appetite, urinating well, and had 2 BMs. Patient blood sugars 118, 173, 141. Tele=A.fib.
[2023-10-18] MEDS: OMEPRAZOLE 20 MG CAPSULE DR 40 MG PO (18:21)
[2023-10-18] MEDS: SENNOSIDES 1 TAB TABLET 3 TAB PO (20:43)
[2023-10-18] MEDS: TAMSULOSIN HCL 0.4 MG CAPSULE 0.8 MG PO (20:45)
[2023-10-18] MEDS: PRAVASTATIN SODIUM 20 MG TABLET 80 MG PO (20:52)
[2023-10-19] VITALS (7 sets, daily range): BP systolic 127–155; BP diastolic 54–80; PULSE 59–72; RESP 16–20; TEMP 36.1–37.1; O2SAT 90–95
--- NOTE | 2023-10-19 05:10 | PC.NURSE ---
Shift note: Pt has been in bed throughout the shift. Uses urinal in bed. Alert and oriented, cooperated with care and treatment. Turned and reposition as pt allowed. CPAP in use throughout the night. HR has been within the 50s with A.fib. No cough, fever and SOB recorded. Takes pill whole with applesauce.
[2023-10-19 06:36] LABS: Hematocrit 32.3 % (37.0-53.0); Hemoglobin* 9.4 gm/dL (13.5-17.5); Mean Corpuscular HGB Conc 29 gm/dL (32-36); Mean Corpuscular Hemoglobin 22 pg (26-34); Mean Corpuscular Volume 75 fL (80-100); Platelet Count* 232 K/uL (140-440); Red Blood Count 4.33 m/uL (4.30-5.90); White Blood Count* 7.04 K/uL (4.50-11.00)
[2023-10-19 06:39] LABS: Slide Review Reflex No
[2023-10-19 06:55] LABS: Albumin* 3.6 g/dL (3.3-5.0); Chloride* 101 mmol/L (96-114); Potassium* 3.9 mmol/L (3.6-5.1); Sodium* 139 mmol/L (135-149)
[2023-10-19 06:58] LABS: Anion Gap 4 mEq/L (7-15); Blood Urea Nitrogen* 35 mg/dL (7-30); Carbon Dioxide* 34 mmol/L (20-32); Creatinine* 1.8 mg/dL (0.5-1.5); Est. Creatinine Clearance* 48.13; Estimated Glomerular Filt Rate 40 ml/min; Glucose* 99 mg/dL (60-115)
[2023-10-19] MEDS: LEVOTHYROXINE 100 MCG TABLET PO (06:58)
[2023-10-19] MEDS: LEVOTHYROXINE 125 MCG TABLET PO (06:58)
[2023-10-19 06:59] LABS: Calcium* 8.8 mg/dL (8.4-10.6)
[2023-10-19] MEDS: METFORMIN 1,000 MG TABLET 1000 MG PO ×2 (07:53→17:46)
[2023-10-19] MEDS: FUROSEMIDE 40 MG TABLET PO ×2 (07:53→13:54)
[2023-10-19] MEDS: FERROUS SULFATE 325 MG TABLET PO (07:53)
[2023-10-19] MEDS: glipiZIDE 5 MG TABLET PO ×2 (07:53→17:46)
[2023-10-19] MEDS: DULOXETINE 30 MG CAPSULE DR PO ×2 (08:49→22:08)
[2023-10-19] MEDS: PREGABALIN 75 MG CAPSULE 150 MG PO ×2 (08:49→22:06)
[2023-10-19] MEDS: NYSTATIN POWDER 1 APPLIC TOPICAL (08:49)
[2023-10-19] MEDS: SODIUM BICARBONATE 650 MG TABLET 1300 MG PO ×3 (08:49→22:08)
[2023-10-19] MEDS: dilTIAZem 30 MG TABLET 120 MG PO ×2 (08:49→22:04)
[2023-10-19] MEDS: ACETAMINOPHEN 500 MG TABLET 1000 MG PO ×3 (08:49→22:07)
[2023-10-19] MEDS: allopurinoL 300 MG TABLET PO (08:50)
[2023-10-19] MEDS: MAGNESIUM OXIDE 400 MG TABLET PO (08:50)
[2023-10-19] MEDS: SPIRONOLACTONE 25 MG TABLET PO (08:50)
[2023-10-19] MEDS: APIXABAN 5 MG TABLET PO ×2 (08:50→22:09)
[2023-10-19] MEDS: SODIUM CHLORIDE 0.9 % (FLUSH) 10 ML SYRINGE 5 ML IVF ×2 (08:56→22:11)
--- NOTE | 2023-10-19 09:14 | NUTR.NU ---
RDN with follow-up note related to LOS. Patient admitted for TARA, anasarca, and systematic anemia. Current diet is heart healthy, diabetic, and 1800ml fluid restriction. Patient declined nutrition education for diet previously. Meal intakes continue to be adequate at mainly 50-100% at most meals. Weight fluctuations noted with weight of 450lbs 10/19/23 and weight of 460lbs 10/14/23. Weight fluctuations noted possibly related to fluid from diuretic use and current diagnosis of CHF and lymphedema. BMI 53.4 kg/m2. No nutrition changes at this time. Plan is for patient to be discharged to SNF 10/21/23. RDN will continue to monitor and follow-up prn.
--- NOTE | 2023-10-19 09:47 | PM.IMPN1 ---
Progress Note: A&P Assessment and plan (1) TARA (acute kidney injury): Problem details: - On CKD stage 3. Creatinine is impaired from baseline. (1.2 --> 1.8) - Continue to monitor. - Continue diuresis as hypoxia is likely from ansaraca and he is currently managing on room air; thus we are accepting the TARA with increased diuresis Status: Acute (2) Anasarca: Problem details: -lasix 40mg BID -Tara induced -needs weight loss, high protein diet, lymphedema pumps and increase in mobility Status: Acute (3) Symptomatic anemia: Problem details: -has not recovered from initial anemia in late 2022 that was 2/2 colon cancer -rec'd iron infusions and blood initially -after hemicolectomy - stablized but remained less than 9 despite oral iron supplementation -10/17 - decided to transfuse to get above 10 for cardiac and weakness indicators -no active bleeding suspected Status: Chronic (4) Spinal stenosis, lumbar region without neurogenic claudication: Problem details: MRI at [facility] February 2023. Right-sided impingement at L2-3 impinging on right L3 nerve root, spinal stenosis at L3-4 and L4-5 and compression of the cauda equina nerve roots which was unchanged from previous MRI. Multilevel neural foraminal narrowing advanced on the right at L4-5 and bilaterally at L5-S1. Medically managed with injections at [facility] without good relief. Previously deemed not to be a surgical candidate. Status: Acute (5) Generalized weakness: Problem details: On a good day he can walk with a walker independently. Currently unable to get to standing without assistance of 2 people. ceiling lift dependent as of 10/18/23 Status: Acute (6) Hypoxic respiratory failure: Problem details: -resolved with diuresis efforts. Echo is unremarkable. CT chest for PE shows small pleural effusions and ground-glass infiltrates. -No antibiotics -PO Lasix regimen at home was 20 BID, rec'd oral toresmide and IV lasix here -Lasix 40 mg BID PO as of 10/17/23 -TARA induced with normal electrolytes; monitoring Status: Acute (7) Physical debility: Problem details: Physical debility related to weakness relative to spinal stenosis and body habitus which has required multiple intermediate facility visits for rehab to return home with his . Current condition precludes him from being able to safely be discharged from the hospital directly home. Working on safe discharge disposition plan, including the possibility a transitional care unit Status: Acute (8) Morbid obesity with BMI of 50.0-59.9, adult: Problem details: Complicating cares and testing weights (kg): 10/13, 208.7 (40 mg Furosemide IV); 10/14, 209.8 (40 mg Furosemide IV); 10/15, 209.6 (60 mg Furosemide IV) 10/17: 208.5 kg (458#) -- Lasix 40mg BID Status: Acute (9) Adenocarcinoma, colon: Problem details: Right laparoscopic hemicolectomy 05/12/2023 at [facility]. Not receiving adjuvant chemotherapy. Focusing on palliative care. Status: Acute (10) Diastolic CHF: Problem details: mild pulmonary edema from combo of CHF but more likely from anasarca passively causing pulmonary congestion ISP aerobika Status: Suspected (11) Candidiasis of skin: Problem details: Good hygiene, nystatin Status: Acute (12) Atrial fibrillation: Problem details: Chronic A. Fib. -rate controlled and on OAC (Eliquis 5 BID) -chronic anemia without acute bleeding as of 10/18/23 Status: Acute (13) Lumbar radiculopathy, chronic: Problem details: - Chronic right hip pain and weakness likely due to this. Multilevel lumbar radiculopathy. Clinically appears to be more of a problem with spinal stenosis causing weakness. - ongoing management with PCP Status: Acute (14) Lymphedema associated with obesity: Problem details: needs weight loss, high protein diet, lymphedema pumps and increase in mobility Status: Acute (15) Diabetes mellitus type 2 in obese: Problem details: - with peripheral neuropathy - Adequate control. Continue usual DM medications. - glucose checks ACHS, insulin sliding scale - outpatient follow-up with PCP Status: Chronic (16) BRITTNEY (obstructive sleep apnea): Problem details: - continue home CPAP Status: Chronic (17) Fall: Problem details: Fall on the day of admission causing new back injury with acute on chronic back pain. Pain is adequately subjectively controlled with medication. Not obviously getting much better. Status: Acute (18) Diabetic peripheral neuropathy associated with type 2 diabetes mellitus: Problem details: Pregabalin dose decreased from 300 BID to 150 BID on 10/15/2023 due to muscle twitching on the higher dose - twitching has virtually abated as of 10/16/2023 Status: Acute Plan - per above - await TCU placement Subjective Date Seen: 10/19/23 Interval history: Martir was admitted to the hospital on 10/10 for a fall at home, in addition to acute on chronic weakness. Notable findings during stay: - hypoxia, likely combination of OHS, HFpEF syndrome, and mild diastolic CHF. Small pleural effusions on imaging, currently stable on RA - decreased renal function (baseline Cr 1.2, creatinine has been 1.7-19 during stay) - stable microcytic anemia (known h/o colon cancer) - looser stools, not concerning for C Diff per nursing staff. Using prn Imodium, adding Probiotic 10/18 Martir has no concerns for hospitalist team today besides his looser stools. He has a bed at a TCU facility in [place] for Tuesday. His labs and VS are all stable today. Exam Narrative: Exam Narrative: GEN: Alert and sitting comfortably in bedside chair HEENT: EOMIs bilaterally, no scleral icterus CV: RRR, No concerning murmurs R: LCTA bilaterally without concerning wheezing, air movement adequate Ext: + BLE edema, wearing [place] hose and pumps Skin: No concerning skin lesions or rashes on exposed skin Neuro: Nonfocal Psych: Appropriate Const: Vital Signs, click to edit/add: Vital Signs - 24 hr 10/18/23 11:17 10/18/23 12:36 10/18/23 12:57 Temperature 98.4 F 98.3 F 98.2 F Pulse Rate 72 73 Pulse Rate [Left P ulse Oximeter] 78 Respiratory Rate 14 14 12 Blood Pressure 128/66 134/62 Blood Pressure [Le ft Arm] 130/64 Blood Pressure [le ft forearm] Pulse Oximetry 90 88 88 Oxygen Delivery Me thod Room Air Oxygen Flow Rate 10/18/23 13:23 10/18/23 14:41 10/18/23 14:55 Temperature 97.6 F 97.7 F 98 F Pulse Rate 68 73 65 Pulse Rate [Left P ulse Oximeter] Respiratory Rate 16 16 18 Blood Pressure 130/75 132/74 128/64 Blood Pressure [Le ft Arm] Blood Pressure [le ft forearm] Pulse Oximetry 89 89 86 L Oxygen Delivery Me thod Oxygen Flow Rate 10/18/23 15:00 10/18/23 15:00 10/18/23 15:00 Temperature 97.7 F Pulse Rate Pulse Rate [Left P ulse Oximeter] 73 73 Respiratory Rate 16 16 16 Blood Pressure Blood Pressure [Le ft Arm] Blood Pressure [le ft forearm] 132/74 Pulse Oximetry 89 89 Oxygen Delivery Me od Room Air Room Air Oxygen Flow Rate 10/18/23 15:42 10/18/23 16:11 10/18/23 19:00 Temperature 98 F 97.4 F L Pulse Rate 65 66 Pulse Rate [Left P ulse Oximeter] 63 Respiratory Rate 16 16 Blood Pressure 133/79 Blood Pressure [Le ft Arm] Blood Pressure [le ft forearm] 147/78 H Pulse Oximetry 94 90 Oxygen Delivery Me od Room Air Oxygen Flow Rate 10/18/23 22:33 10/18/23 22:33 10/18/23 22:33 Temperature 97.7 F Pulse Rate Pulse Rate [Left P ulse Oximeter] 62 62 Respiratory Rate 16 16 16 Blood Pressure Blood Pressure [Le ft Arm] Blood Pressure [le ft forearm] 131/66 Pulse Oximetry 93 93 Oxygen Delivery Me od Room Air Room Air Oxygen Flow Rate 10/18/23 23:00 10/19/23 03:00 10/19/23 07:05 Temperature 97 F L Pulse Rate 56 L 64 Pulse Rate [Left P ulse Oximeter] 59 L Respiratory Rate 16 Blood Pressure Blood Pressure [Le ft Arm] Blood Pressure [le ft forearm] 127/74 Pulse Oximetry 90 [facility] Flow Rate 0.5 10/19/23 07:56 10/19/23 07:56 10/19/23 07:56 Temperature 97.9 F Pulse Rate Pulse Rate [Left P ulse Oximeter] 69 69 Respiratory Rate 18 18 Blood Pressure Blood Pressure [Le ft Arm] Blood Pressure [le ft forearm] 149/70 H Pulse Oximetry 93 93 Oxygen Delivery Me od Room Air Room Air Oxygen Flow Rate Labs Labs: Laboratory Results - last 24 hr 10/18/23 10/19/23 10:23 06:05 WBC 7.04 RBC 4.33 Hgb 9.4 L Hct 32.3 L MCV 75 L MCH 22 L MCHC 29 L Plt Count 232 Sodium 139 Potassium 3.9 Chloride 101 Carbon Dioxide 34 H Anion Gap 4 L BUN 35 H Creatinine 1.8 H Estimated Creat Clear 48.13 Estimated GFR 40 Glucose 99 Calcium 8.8 Phosphorus 4.0 Albumin 3.6 Blood Type A Positive Antibody Screen NEGATIVE Crossmatch (AHG) See Detail
[2023-10-19] MEDS: LACTOBACILLUS ACIDOPHILUS 1 TABLET 1 TAB PO ×2 (11:50→17:46)
--- NOTE | 2023-10-19 14:17 | PC.SOCIAL ---
Discharge planning- Phone call to Metallurgical EngineerCandi, at [facility] at [phone]. Confirmed that bariatric bed has been received. Discussed bariatric lift chair. Candi is aware patient is requesting lift chair and is working on getting one. Patient is still able to admit to [facility] on Tuesday morning as planned. Provided information to patient. Will follow up as needed.
[2023-10-19] MEDS: INSULIN ASPART 100 UNIT/ML SUBCUT ×2 (17:28→22:00)
[2023-10-19] MEDS: OMEPRAZOLE 20 MG CAPSULE DR 40 MG PO (17:46)
--- NOTE | 2023-10-19 19:28 | PC.NURSE ---
End of Shift: Patient pleasant and cooperative. Patient vitally stable, lungs clear, BS WNL, IVs SL and intact. Patient rates back pain 6-7/10, only scheduled tylenol given today. Patient ceiling lift to chair and commode. Patient urinating well and had 1 BM. Patient tolerating regular diet. Patient blood sugars 88, 179, 168. Patient's compression stockings removed and reapplied.
[2023-10-19] MEDS: PRAVASTATIN SODIUM 20 MG TABLET 80 MG PO (22:02)
[2023-10-19] MEDS: SENNOSIDES 1 TAB TABLET 3 TAB PO (22:03)
[2023-10-19] MEDS: TAMSULOSIN HCL 0.4 MG CAPSULE 0.8 MG PO (22:05)
[2023-10-19] MEDS: OXYCODONE 5 MG TABLET PO (22:10)
[2023-10-20 02:35] VITALS: BP 138/71; PULSE 74; RESP 16; TEMP 36.3; O2SAT 94
--- NOTE | 2023-10-20 06:25 | PC.NURSE ---
Shift note: Pt has been in bed and using urinal. Ceiling lift at 2100 to bed side commode and had 1 loose stool. Pt is on RA and uses CPAP at night. Alert and oriented, vitally stable.
[2023-10-20 06:46] LABS: Hematocrit 32.1 % (37.0-53.0); Hemoglobin* 9.4 gm/dL (13.5-17.5); Mean Corpuscular HGB Conc 29 gm/dL (32-36); Mean Corpuscular Hemoglobin 22 pg (26-34); Mean Corpuscular Volume 74 fL (80-100); Platelet Count* 240 K/uL (140-440); Red Blood Count 4.32 m/uL (4.30-5.90); White Blood Count* 6.42 K/uL (4.50-11.00)
--- NOTE | 2023-10-20 07:13 | PM.IMPN1 ---
Progress Note: A&P Assessment and plan (1) RYLAND (acute kidney injury): Problem details: - On CKD stage 3. Creatinine is impaired from baseline. (1.2 --> 1.8), trended down 1.7 - Continue to monitor. - Continue diuresis as hypoxia is likely from ansaraca and he is currently managing on room air; thus we are accepting the RYLAND with increased diuresis Status: Acute (2) Anasarca: Problem details: -lasix 40mg BID -Ryland induced -needs weight loss, high protein diet, lymphedema pumps and increase in mobility Status: Acute (3) Symptomatic anemia: Problem details: -has not recovered from initial anemia in late 2022 that was 2/2 colon cancer -rec'd iron infusions and blood initially -after hemicolectomy - stablized but remained less than 9 despite oral iron supplementation -10/17 - decided to transfuse to get above 10 for cardiac and weakness indicators -no active bleeding suspected -hemoglobin remains stable, 9.4 Status: Chronic (4) Spinal stenosis, lumbar region without neurogenic claudication: Problem details: MRI at [place] February 2023. Right-sided impingement at L2-3 impinging on right L3 nerve root, spinal stenosis at L3-4 and L4-5 and compression of the cauda equina nerve roots which was unchanged from previous MRI. Multilevel neural foraminal narrowing advanced on the right at L4-5 and bilaterally at L5-S1. Medically managed with injections at [place] without good relief. Previously deemed not to be a surgical candidate. Status: Acute (5) Generalized weakness: Problem details: On a good day he can walk with a walker independently. Currently unable to get to standing without assistance of 2 people. ceiling lift dependent as of 10/18/23 Status: Acute (6) Hypoxic respiratory failure: Problem details: -resolved with diuresis efforts. Echo is unremarkable. CT chest for PE shows small pleural effusions and ground-glass infiltrates. Saturating >90% on room air -No antibiotics -PO Lasix regimen at home was 20 BID, rec'd oral toresmide and IV lasix here -Lasix 40 mg BID PO as of 10/17/23 -RYLAND induced with normal electrolytes; monitoring Status: Resolved (7) Physical debility: Problem details: Physical debility related to weakness relative to spinal stenosis and body habitus which has required multiple snf facility visits for rehab to return home with his . Current condition precludes him from being able to safely be discharged from the hospital directly home. veterans services specialist assisting with discharge planning, to [place] Friday 10/20 Status: Acute (8) Morbid obesity with BMI of 50.0-59.9, adult: Problem details: Complicating cares and testing weights (kg): 10/13, 208.7 (40 mg Furosemide IV); 10/14, 209.8 (40 mg Furosemide IV); 10/15, 209.6 (60 mg Furosemide IV) 10/17: 208.5 kg (458#) -- Lasix 40mg BID 205 kg prior to discharge Status: Acute (9) Adenocarcinoma, colon: Problem details: Right laparoscopic hemicolectomy 05/12/2023 at [place]. Not receiving adjuvant chemotherapy. Focusing on palliative care. Status: Acute (10) Diastolic CHF: Problem details: mild pulmonary edema from combo of CHF but more likely from anasarca passively causing pulmonary congestion ISP aerobika Status: Suspected (11) Candidiasis of skin: Problem details: Good hygiene, nystatin Status: Acute (12) Atrial fibrillation: Problem details: Chronic A. Fib. -rate controlled and on OAC (Eliquis 5 BID) -chronic anemia without acute bleeding as of 10/18/23 Status: Acute (13) Lumbar radiculopathy, chronic: Problem details: - Chronic right hip pain and weakness likely due to this. Multilevel lumbar radiculopathy. Clinically appears to be more of a problem with spinal stenosis causing weakness. - ongoing management with PCP Status: Acute (14) Lymphedema associated with obesity: Problem details: needs weight loss, high protein diet, lymphedema pumps and increase in mobility Status: Acute (15) Diabetes mellitus type 2 in obese: Problem details: - with peripheral neuropathy - Adequate control. Continue usual DM medications. - glucose checks ACHS, insulin sliding scale - outpatient follow-up with PCP Status: Chronic (16) BRITTNEY (obstructive sleep apnea): Problem details: - continue home CPAP Status: Chronic (17) Fall: Problem details: Fall on the day of admission causing new back injury with acute on chronic back pain. Pain is adequately subjectively controlled with medication. Not obviously getting much better. Status: Acute (18) Diabetic peripheral neuropathy associated with type 2 diabetes mellitus: Problem details: Pregabalin dose decreased from 300 BID to 150 BID on 10/15/2023 due to muscle twitching on the higher dose - twitching has virtually abated as of 10/16/2023 Status: Acute Plan - per above - await TCU placement, Susana Wu on Tuesday10/21/23 Time Spent With Patient Total time spent: Total time spent caring for the patient today was 30 minutes. This includes time spent for the visit reviewing the chart, time spent during the visit, time spent after the visit and documentation and planning in coordination of care. Subjective Date Seen: 10/20/23 Interval history: Patient is sitting up in bed this morning, no concerns or complaints. No events reported overnight. Medically stable, awaiting discharge to [place] tomorrow. Exam Narrative: Exam Narrative: PHYSICAL EXAM General: Pleasant, conversant, NAD Cardiovascular: RRR Pulmonary: CTA bilaterally without rhonchi, rales, expiratory wheezes. No dyspnea on room air Abdominal: Soft, obese, nondistended, NTTP Neurological: Alert, answering questions appropriately, cranial nerves intact, no focal findings Extremities: Edema BLE. Neurovascularly intact Skin: Warm, dry. Const: Vital Signs, click to edit/add: Vital Signs - 24 hr 10/19/23 07:56 10/19/23 07:56 10/19/23 07:56 Temperature 97.9 F Pulse Rate [Left P ulse Oximeter] 69 69 Respiratory Rate 18 18 Blood Pressure [le ft forearm] 149/70 H Pulse Oximetry 93 93 Oxygen Delivery Me thod Room Air Room Air 10/19/23 11:37 10/19/23 15:00 10/19/23 15:00 Temperature 98.5 F 98.8 F Pulse Rate [Left P ulse Oximeter] 69 64 64 Respiratory Rate 16 16 20 Blood Pressure [le ft forearm] 130/54 L 146/72 H Pulse Oximetry 93 93 Oxygen Delivery Me thod Room Air Room Air 10/19/23 15:00 10/19/23 19:00 10/19/23 22:17 Temperature 97.2 F L Pulse Rate [Left P ulse Oximeter] 71 71 Respiratory Rate 16 16 16 Blood Pressure [le ft forearm] 146/80 H Pulse Oximetry 93 91 Oxygen Delivery Me thod Room Air Room Air 10/19/23 22:17 10/19/23 22:17 10/20/23 02:35 Temperature 97.2 F L 97.3 F L Pulse Rate [Left P ulse Oximeter] 72 74 Respiratory Rate 16 16 16 Blood Pressure [le ft forearm] 155/75 H 138/71 Pulse Oximetry 95 95 94 Oxygen Delivery Me thod Room Air Room Air Room Air
[2023-10-20] MEDS: LEVOTHYROXINE 125 MCG TABLET PO (07:17)
[2023-10-20] MEDS: LEVOTHYROXINE 100 MCG TABLET PO (07:18)
[2023-10-20 07:34] LABS: Slide Review Reflex No
[2023-10-20 07:37] LABS: Chloride* 101 mmol/L (96-114)
[2023-10-20 07:38] LABS: Albumin* 3.5 g/dL (3.3-5.0); Potassium* 4.1 mmol/L (3.6-5.1); Sodium* 138 mmol/L (135-149)
[2023-10-20 07:41] LABS: Anion Gap 7 mEq/L (7-15); Blood Urea Nitrogen* 35 mg/dL (7-30); Carbon Dioxide* 30 mmol/L (20-32); Creatinine* 1.7 mg/dL (0.5-1.5); Est. Creatinine Clearance* 50.96; Estimated Glomerular Filt Rate 43 ml/min; Glucose* 141 mg/dL (60-115)
[2023-10-20 07:42] LABS: Calcium* 8.5 mg/dL (8.4-10.6); Phosphorus* 3.6 mg/dL (2.5-4.5)
[2023-10-20] MEDS: FERROUS SULFATE 325 MG TABLET PO (08:13)
[2023-10-20] MEDS: glipiZIDE 5 MG TABLET PO ×2 (08:13→18:24)
[2023-10-20] MEDS: METFORMIN 1,000 MG TABLET 1000 MG PO ×2 (08:13→18:23)
[2023-10-20] MEDS: FUROSEMIDE 40 MG TABLET PO ×2 (08:13→13:41)
[2023-10-20] MEDS: LACTOBACILLUS ACIDOPHILUS 1 TABLET 1 TAB PO ×3 (08:13→18:23)
[2023-10-20 08:42] VITALS: BP 130/69; PULSE 58; RESP 16; TEMP 36.5; O2SAT 91
[2023-10-20] MEDS: ACETAMINOPHEN 500 MG TABLET 1000 MG PO ×3 (09:15→21:15)
[2023-10-20] MEDS: allopurinoL 300 MG TABLET PO (09:16)
[2023-10-20] MEDS: APIXABAN 5 MG TABLET PO ×2 (09:16→21:10)
[2023-10-20] MEDS: dilTIAZem 30 MG TABLET 120 MG PO ×2 (09:16→21:12)
[2023-10-20] MEDS: MAGNESIUM OXIDE 400 MG TABLET PO (09:17)
[2023-10-20] MEDS: DULOXETINE 30 MG CAPSULE DR PO ×2 (09:17→21:10)
[2023-10-20] MEDS: NYSTATIN POWDER 1 APPLIC TOPICAL (09:17)
[2023-10-20] MEDS: PREGABALIN 75 MG CAPSULE 150 MG PO ×2 (09:17→21:13)
[2023-10-20] MEDS: SODIUM BICARBONATE 650 MG TABLET 1300 MG PO ×3 (09:17→21:12)
[2023-10-20] MEDS: SODIUM CHLORIDE 0.9 % (FLUSH) 10 ML SYRINGE 5 ML IVF ×2 (09:18→21:17)
[2023-10-20] MEDS: SPIRONOLACTONE 25 MG TABLET PO (09:18)
[2023-10-20] MEDS: INSULIN ASPART 100 UNIT/ML SUBCUT ×2 (11:14→21:22)
[2023-10-20 15:00] VITALS: RESP 16
[2023-10-20 16:00] VITALS: O2SAT 96
[2023-10-20] MEDS: OMEPRAZOLE 20 MG CAPSULE DR 40 MG PO (18:23)
--- NOTE | 2023-10-20 19:21 | PC.NURSE ---
Nursing Care Hours: [id number] Pt this shift calm and cooperative, alert and oriented. Ax2 with walker and gait belt up to chair and back to bed. VSS. Vitals moved to once a day and once in evening. C/o low back pain 5/10, getting relief from scheduled tylenol. Refused lidocaine patch. Refused senna d/t reported loose stools. Bed bath and clean gown this morning. Light breakfast and no lunch. Up in chair having dinner with . Bilat NAOMI wraps and stocking applied.
[2023-10-20] MEDS: PRAVASTATIN SODIUM 20 MG TABLET 80 MG PO (21:11)
[2023-10-20] MEDS: SENNOSIDES 1 TAB TABLET 3 TAB PO (21:12)
[2023-10-20] MEDS: OXYCODONE 5 MG TABLET PO (21:14)
[2023-10-20] MEDS: TAMSULOSIN HCL 0.4 MG CAPSULE 0.8 MG PO (21:15)
[2023-10-20 22:41] VITALS: RESP 16; O2SAT 97
--- NOTE | 2023-10-21 04:59 | PC.NURSE ---
Shift note: Pt has been in bed most of the shift. Previous shift were able to transfer with A2, walker and GB throughout yesterday. At around 2100, NARs responded to pt's call light for transfer from recliner to bed. Pt had been in the recliner communicating with a family member who came for visit. NARs were successful with A, GB, and walker transferring pt to bed. Immediately pt sat on bed he notified the NARs that he feels he is slipping off bed. NARs called for help and pt was lowered to the floor without injury or pain. Pt assisted back to bed with the ceiling lift and education the need to utilize ceiling lift, especially during the evenings when pt appears exhausted. V/S recorded at the time of incident were T 97.6, RR 20, P 77, O2 93, Bp 122/87. Pt asked to use the bed side commode but could not get BM. Pt later requested for bedpan and had medium formed size BM. 1800ml fluid restriction maintained. Vitally stable. Pt continue to use urinal in bed.
[2023-10-21] MEDS: LEVOTHYROXINE 100 MCG TABLET PO (06:46)
[2023-10-21] MEDS: LEVOTHYROXINE 125 MCG TABLET PO (06:46)
[2023-10-21 07:00] VITALS: PULSE 67; RESP 18; O2SAT 94
--- NOTE | 2023-10-21 07:27 | PM.DS1 ---
DS: Providers Provider Date Seen: 10/21/23 Date of admission: 10/13/23 15:05 Primary care physician: Grzegorz Wiggins MD Admitting Clinician: Monique Johnson MD Consults: 10/11/23 18:27 Consult to Occupational Therapy [CONS] Routine Comment: Reason(s) for OT Consult:: Evaluate and Treat Any Restrictions?:: No Restrictions Consult to Physical Therapy [CONS] Routine Comment: Reason(s) for PT Consult:: Evaluate and Treat Any Restrictions?:: No Restrictions Consult to Plumbing Drafter [CONS] Routine Comment: Reason for Consult:: Possible SNF placement 10/11/23 18:28 Consult to Occupational Therapy [CONS] Routine Comment: Reason(s) for OT Consult:: Evaluate and Treat Any Restrictions?:: No Restrictions Consult to Physical Therapy [CONS] Routine Comment: Reason(s) for PT Consult:: Unstable Gait Any Restrictions?:: No Restrictions Attending Physician on discharge: TWILA Durand, RODO [facility] Date of Discharge: 10/21/23 DS: Diagnosis Discharge Diagnosis (1) TARA (acute kidney injury): Status: Acute Problem details: Acute on chronic, recurrent with history of CKD stage 3. Creatinine is impaired from baseline. (1.2 --> 1.8), trended down 1.7 prior to discharge. - Continue to monitor. - Continue diuresis as hypoxia is likely from ansaraca and he is currently managing on room air; thus we are accepting the TARA with increased diuresis (2) Anasarca: Status: Acute Problem details: Thought to be likely cause of hypoxia, the managed with room air. With TARA. Diuresed with Lasix b.i.d.. Recommended weight loss, high protein diet, lymphedema pumps and increase in mobility (3) Symptomatic anemia: Status: Chronic Problem details: Acute on chronic, recurrent, having not recovered from initial anemia in late 2022 that was 2/2 colon cancer. Received iron infusions and blood initially. Decision was made to transfuse to get above 10 for cardiac and weakness indicators. no active bleeding suspected. Hemoglobin remains stable, 9.4 prior to discharge. (4) Spinal stenosis, lumbar region without neurogenic claudication: Status: Acute Problem details: MRI at [place] February 2023. Right-sided impingement at L2-3 impinging on right L3 nerve root, spinal stenosis at L3-4 and L4-5 and compression of the cauda equina nerve roots which was unchanged from previous MRI. Multilevel neural foraminal narrowing advanced on the right at L4-5 and bilaterally at L5-S1. Medically managed with injections at [facility] without good relief. Previously deemed not to be a surgical candidate. (5) Generalized weakness: Status: Acute Problem details: On a good day he can walk with a walker independently. Currently unable to get to standing without assistance of 2 people. Ceiling lift dependent as of 10/18/23. PT and OT consulted. insurance and financial services agent for discharge planning, patient discharged to [place] on 10/20 (6) Hypoxic respiratory failure: Status: Resolved Problem details: Resolved with diuresis efforts. Echo is unremarkable. CT chest for PE shows small pleural effusions and ground-glass infiltrates. Saturating >90% on room air (7) Physical debility: Status: Acute Problem details: Physical debility related to weakness relative to spinal stenosis and body habitus which has required multiple longterm facility visits for rehab to return home with his .insurance and financial services agent assisting with discharge planning, to [place] Friday 10/20 (8) Morbid obesity with BMI of 50.0-59.9, adult: Status: Acute Problem details: Complicating cares and testing weights (kg): 10/13, 208.7 (40 mg Furosemide IV); 10/14, 209.8 (40 mg Furosemide IV); 10/15, 209.6 (60 mg Furosemide IV) 10/17: 208.5 kg (458#) -- Lasix 40mg BID 205 kg prior to discharge (9) Adenocarcinoma, colon: Status: Acute Problem details: Right laparoscopic hemicolectomy 05/12/2023 at [place]. Not receiving adjuvant chemotherapy. Focusing on palliative care. (10) Diastolic CHF: Status: Suspected Problem details: mild pulmonary edema from combo of CHF but more likely from anasarca passively causing pulmonary congestion (11) Candidiasis of skin: Status: Acute Problem details: Good hygiene, nystatin (12) Atrial fibrillation: Status: Acute Problem details: Chronic A. Fib. -rate controlled and on OAC (Eliquis 5 BID) -chronic anemia without acute bleeding as of 10/18/23 (13) Lumbar radiculopathy, chronic: Status: Acute Problem details: Chronic right hip pain and weakness likely due to this. Multilevel lumbar radiculopathy. Clinically appears to be more of a problem with spinal stenosis causing weakness. - ongoing management with PCP (14) Lymphedema associated with obesity: Status: Acute Problem details: needs weight loss, high protein diet, lymphedema pumps and increase in mobility (15) Diabetes mellitus type 2 in obese: Status: Chronic Problem details: - with peripheral neuropathy. Continued on home medications. - outpatient follow-up with PCP (16) BRITTNEY (obstructive sleep apnea): Status: Chronic Problem details: - continue home CPAP (17) Fall: Status: Acute Problem details: Fall on the day of admission causing new back injury with acute on chronic back pain. Pain was adequately subjectively controlled with medication. (18) Diabetic peripheral neuropathy associated with type 2 diabetes mellitus: Status: Acute Problem details: Pregabalin dose decreased from 300 BID to 150 BID on 10/15/2023 due to muscle twitching on the higher dose - twitching has virtually abated as of 10/16/2023 DS: Summary Hospital Course Hospital Course: [age] year old male was admitted to the medical floor for further management acute on chronic hypoxic respiratory failure, weakness, deconditioning. Course of care and details of extended stay as noted above. Remainder of chronic medical comorbidities were monitored and managed with home medications. Status at Discharge Overall status at discharge: patient is not back to baseline Time Spent with Patient Time attestation: Total time spent providing and/or coordinating discharge services: Time spent: Greater than 30 minutes Exam Narrative: Exam Narrative: PHYSICAL EXAM General: Pleasant, conversant, NAD Cardiovascular: RRR Pulmonary: No dyspnea Neurological: Alert, answering questions appropriately Skin: Warm, dry. Const: Vital Signs, click to edit/add: Vital Signs - 24 hr 10/20/23 08:42 10/20/23 08:42 10/20/23 08:42 Temperature 97.7 F Pulse Rate [Left P ulse Oximeter] 58 L 58 L Respiratory Rate 16 16 16 Blood Pressure [le ft forearm] 130/69 Pulse Oximetry 91 91 Oxygen Delivery Me thod Room Air Room Air 10/20/23 15:00 10/20/23 16:00 10/20/23 22:41 Temperature Pulse Rate [Left P ulse Oximeter] Respiratory Rate 16 16 Blood Pressure [le ft forearm] Pulse Oximetry 96 Oxygen Delivery Me thod Room Air 10/20/23 22:41 Temperature Pulse Rate [Left P ulse Oximeter] Respiratory Rate 16 Blood Pressure [le ft forearm] Pulse Oximetry 97 Oxygen Delivery Me thod Room Air DS: Data Data Completed and Pending Completed studies during hospitalization: Procedures Excision of Descending Colon, Via Natural or Artificial Opening Endoscopic, Diagnostic (01/31/23) Excision of Duodenum, Via Natural or Artificial Opening Endoscopic, Diagnostic (01/31/23) Excision of Sigmoid Colon, Via Natural or Artificial Opening Endoscopic, Diagnostic (01/31/23) Excision of Stomach, Via Natural or Artificial Opening Endoscopic, Diagnostic (01/31/23) Excision of Transverse Colon, Via Natural or Artificial Opening Endoscopic, Diagnostic (01/31/23) Extraction of Ascending Colon, Via Natural or Artificial Opening Endoscopic, Diagnostic (01/31/23) Transfusion of Nonautologous Red Blood Cells into Peripheral Vein, Percutaneous Approach (01/31/23) Labs on day of discharge: Labs from last 24 hours 10/20/23 06:30 WBC 6.42 RBC 4.32 Hgb 9.4 L Hct 32.1 L MCV 74 L MCH 22 L MCHC 29 L Plt Count 240 Sodium 138 Potassium 4.1 Chloride 101 Carbon Dioxide 30 Anion Gap 7 BUN 35 H Creatinine 1.7 H Estimated Creat Clear 50.96 Estimated GFR 43 Glucose 141 H Calcium 8.5 Phosphorus 3.6 Albumin 3.5 Imaging Chest x-ray: Attestation: I have reviewed the pertinent imaging results. Radiologist's impression: Similar enlargement of the cardiomediastinal silhouette. Mild central pulmonary vascular congestion. Lungs are well inflated. Hazy bibasilar airspace opacities are similar to prior. No dense consolidation. Layering small pleural effusions are better seen on prior CT. No pneumothorax. Unchanged bones and soft tissues CT scan - chest: Attestation: I have reviewed the pertinent imaging results. Radiologist's impression: Heart and vasculature: No cardiomegaly, no pericardial effusion. Limited evaluation secondary to suboptimal contrast opacification of the pulmonary arteries, as well as motion artifact. No central pulmonary embolus is identified. Distal lobar, segmental, and subsegmental pulmonary arteries are poorly evaluated. Lungs and pleura: Motion artifact. New small bilateral pleural effusions. Bilateral patchy central peribronchial ground-glass opacities, may reflect mild pulmonary edema. Thyroid and lower neck: Atrophic thyroid gland. Mediastinum/xiao: No lymphadenopathy. Chest wall: No axillary lymphadenopathy. Upper abdomen: No acute abnormality. No significant changes from recent CT abdomen/pelvis. Bones: Multilevel degenerative changes of the spine. No suspicious/aggressive focal osseous lesion. IMPRESSION: 1. Limited evaluation secondary to suboptimal contrast opacification of the pulmonary arteries, as well as motion artifact. No central pulmonary embolus. 2. New small bilateral pleural effusions. Bilateral patchy central peribronchial ground-glass opacities, may reflect mild pulmonary edema. CT scan - head: Attestation: I have reviewed the pertinent imaging results. My impression: Without acute intracranial findings. CT C-spine without acute or traumatic findings. CT Chest/Ab/Pelvis: Attestation: I have reviewed the pertinent imaging results. Radiologist's impression: FINDINGS: CHEST: Cardiovascular structures: Heart size is normal. Thoracic aorta and main pulmonary artery are normal in caliber. Mediastinum and xiao: No mass or adenopathy. Lungs and pleura: Lungs and pleural spaces are clear. No suspicious nodules, infiltrates, or effusions. Chest wall and axilla: No mass or adenopathy. Bones: No suspicious bone lesions. Unremarkable for age. ABDOMEN AND PELVIS: Liver: Unremarkable. Gallbladder and bile ducts: Cholelithiasis. No CT evidence of cholecystitis. Pancreas: Severe fatty atrophy of the pancreas. Spleen: Unremarkable. Adrenal glands: Unremarkable. Kidneys: Mild atrophy of the bilateral kidneys. Slightly heterogeneous lesion at the inferior pole of the left kidney measuring 2.2 centimeters in diameter, stable compared to prior from August 11, 2023 and from February 01, 2023 GI tract: Status post hemicolectomy. Anastomosis is unremarkable. No evidence of bowel obstruction. Vascular structures: Unremarkable. Lymph nodes: Prominent external iliac chain lymph nodes. Miscellaneous: Fat containing umbilical hernia. Pelvic Organs: Bladder is unremarkable. Prostate is unremarkable. Bones: No suspicious bone lesions. Unremarkable for age. IMPRESSION: 1. No acute injury identified in the chest, abdomen or pelvis. 2. Cholelithiasis without CT evidence of cholecystitis. 3. Slightly heterogeneous lesion at the inferior pole of the left kidney measuring up to 2.2 centimeters in diameter, stable compared to the prior exam and from February 01, 2023. Consider comparison to remote prior imaging or consider further evaluation with outpatient ultrasound. 4. Stable postsurgical changes from right hemicolectomy. 5. Redemonstrated prominent external iliac chain lymph nodes. Additional Comments Additional comments: Outpatient follow-up heterogeneous lesion at the inferior pole of the left kidney for further evaluation Discharge Plan Discharge Disposition: Xfer [facility] Date of Admission: 10/13/23 15:05 Attending Provider on Discharge: Prisca Ross Primary Care Provider: Grzegorz Wiggins Condition: Stable Anticipated Discharge Date/Time: 10/21/23 07:17 Discharge Medications: New furosemide 40 mg Tablet 40 mg PO BID@0800,1400 Qty: 60 0RF ferrous sulfate 325 mg (65 mg iron) Tablet 325 mg PO DAILYWM Qty: 90 0RF Eliquis 5 mg Tablet 5 mg PO BID Qty: 90 0RF Continued furosemide [Lasix] 20 mg tablet 20 mg PO BID levothyroxine 100 mcg tablet 100 mcg PO DAILY Patient Comments: TOTAL DOSE = 225MCG pravastatin 80 mg tablet 80 mg PO HS magnesium oxide 400 mg (241.3 mg magnesium) tablet 400 mg PO DAILY tamsulosin 0.4 mg capsule 0.8 mg PO HS levothyroxine 125 mcg tablet 125 mcg PO DAILY Patient Comments: TOTAL DOSE = 225MCG allopurinol 300 mg tablet 300 mg PO DAILY insulin glargine [Lantus Solostar U-100 Insulin] 100 unit/mL (3 mL) insulin pen 38 unit subcut HS metformin 500 mg tablet extended release 24 hr 1,000 mg PO BIDWM duloxetine 30 mg capsule,delayed release(DR/EC) 30 mg PO BID sodium bicarbonate 650 mg tablet 1,950 mg PO TID acetaminophen [Tylenol Extra Strength] 500 mg tablet 1,000 mg PO TID PRN glipizide 5 mg tablet 5 mg PO BIDWMEAL glucosamine-chondroitin [Cosamin DS] 500-400 mg tablet 1 tab PO TID diltiazem HCl 240 mg Capsule,Extended Release 24hr 240 mg PO BID 30 Days Qty: 60 0RF pantoprazole 40 mg tablet,delayed release (DR/EC) 40 mg PO DAILY pregabalin 150 mg capsule 300 mg PO BID spironolactone 25 mg tablet 25 mg PO DAILY losartan 50 mg tablet 50 mg PO DAILY Discharge Orders: Discharge Order (Routine); Ordered 10/21/23 Ordered By: Prisca Ross Activity Level: Activity as Tolerated Activity Detail: per PT/OT Discharge Diet: Diabetic and Heart Healthy (2 gm sodium, low fat) Follow Up Appointments: Grzegorz Wiggins MD [Primary Care Provider] - Forms: [facility] Info Instructions Admit to: SNF Discharge Potential: Fair Length of Stay: <30 days Can use facility standing orders?: Yes Code Status: Full Code TEDs: Bilateral Knee Rehab Potential: Fair Therapy: Physical Therapy and Occupational Therapy Therapy Orders: Evaluate and Treat Oxygen: No Orders are good >30 days: No Signature: TWILA Durand, PA-C [facility]
[2023-10-21 08:59] VITALS: BP 142/69; PULSE 67; RESP 18; TEMP 36.4; O2SAT 94
[2023-10-21] MEDS: SPIRONOLACTONE 25 MG TABLET PO (09:03)
[2023-10-21] MEDS: dilTIAZem 30 MG TABLET 120 MG PO (09:04)
[2023-10-21] MEDS: DULOXETINE 30 MG CAPSULE DR PO (09:04)
[2023-10-21] MEDS: APIXABAN 5 MG TABLET PO (09:05)
[2023-10-21] MEDS: SODIUM BICARBONATE 650 MG TABLET 1300 MG PO (09:05)
[2023-10-21] MEDS: allopurinoL 300 MG TABLET PO (09:06)
[2023-10-21] MEDS: METFORMIN 1,000 MG TABLET 1000 MG PO (09:06)
[2023-10-21] MEDS: FUROSEMIDE 40 MG TABLET PO (09:07)
[2023-10-21] MEDS: FERROUS SULFATE 325 MG TABLET PO (09:07)
[2023-10-21] MEDS: LOPERAMIDE HCL 2 MG CAPSULE PO (09:07)
--- NOTE | 2023-10-21 11:26 | PC.NURSE ---
Discharge: Patient VSS. Alert and oriented. C/O pain in low back, rate 5/10. Refused breakfast this morning due to a loose stool. Patient discharged at 1105 to [facility] facility via non-emergent ambulance on stretcher. to meet patient there. Discharge packet form signed by patient and RN.
== END 2023-10-21 11:05 | DRG 682 ==
LOC: ED 16:53 → MEDSURG 17:11
PROVIDERS: Family Medicine; Admitting Provider Family Medicine; Emergency Provider Emergency Medicine; PCP Family Medicine; Visit Provider Family Medicine
DX: N17.9 Acute kidney failure, unspecified (principal); I50.33 Acute on chronic diastolic (congestive) heart failure; J96.21 Acute and chronic respiratory failure with hypoxia; Z68.43 Body mass index [BMI] 50.0-59.9, adult; C18.9 Malignant neoplasm of colon, unspecified; I13.0 Hypertensive heart and chronic kidney disease with heart failure and stage 1 through stage 4 chronic kidney disease, or unspecified chronic kidney disease; I48.20 Chronic atrial fibrillation, unspecified; E11.42 Type 2 diabetes mellitus with diabetic polyneuropathy; E11.22 Type 2 diabetes mellitus with diabetic chronic kidney disease; N18.31 Chronic kidney disease, stage 3a; E66.01 Morbid (severe) obesity due to excess calories; G47.33 Obstructive sleep apnea (adult) (pediatric); M48.062 Spinal stenosis, lumbar region with neurogenic claudication; M54.16 Radiculopathy, lumbar region; D50.9 Iron deficiency anemia, unspecified; B37.2 Candidiasis of skin and nail; S39.92XA Unspecified injury of lower back, initial encounter; W19.XXXA Unspecified fall, initial encounter; I89.0 Lymphedema, not elsewhere classified; Z79.84 Long term (current) use of oral hypoglycemic drugs; Z79.01 Long term (current) use of anticoagulants
CPT/HCPCS: 36415; 36430; 36600; 70450; 71045; 71260; 71275; 72125; 72131; 74177; 80048; 80053; 80069; 81001; 82040; 82270; 82803; 82962; 83540; 83550; 83605; 83880; 84439; 84443; 84484; 85018; 85025; 85027; 86850; 86900; 86901; 86922; 87040; 87631; 93005; 93306; 97110; 97116; 97162; 97166; 97530; 97535; 99284; 99285; G0378; A9270; J1170; J1650; J1940; J2405; J7050; P9016; Q9957; Q9967

== ENCOUNTER 2023-10-21 10:56 | Outpatient (CLI) | payer MEDICARE, BC, SELFPAY ==
--- OUTSIDE RECORDS SUMMARY | 2023-10-24 19:35 | XMS_ITS | Clinical Summary ---
Author Organization [facility] Address [address] [address] Phone Care Team Providers Care Automatic Head Sawyer Name Role Phone Grzegorz Wiggins MD Primary Care Provider [phone] Allergies Active Allergy Reactions Criticality Noted Date [...] day. 2022 2023 Active Lactobacillus Rhamnosus, GG, ([facility]) capsule Take 1 Capsule by mouth two [...] Comments Blood Pressure 146/71 04/30/2023 3:25 PM MAORI LIAISON ADVISER Pulse 78 04/30/2023 3:25 PM MAORI LIAISON ADVISER Temperature 36.3 ??C (97.4 ??F) 04/30/2023 3:25 PM CS T Respiratory Rate 18 04/30/2023 3:25 PM MAORI LIAISON ADVISER Oxygen Saturation 99% 04/30/2023 3:25 PM MAORI LIAISON ADVISER Inhaled Oxygen Concentration - - Weight 184.2 kg (406 lb) 04/30/2023 3:23 PM MAORI LIAISON ADVISER Height 195.6 cm (6' 5) 04/30/2023 3:23 PM MAORI LIAISON ADVISER Body Mass Index 48.14 04/30/2023 3:23 PM MAORI LIAISON ADVISER Plan of Treatment Health Maintenance Due Date [...] PCV) 2017 Influenza Vaccine Seasonal (Standing Order) (#1) 2023 HPV Vaccine (Standing Order) Aged Out No longer eligible based on patient's age to complete this topic Hepatitis B Vaccine (Standin g Order) Aged Out No longer eligible b ased on patient's age to complete this topic Care Teams Automatic Head Sawyer Relationship Specialty Start Date End Date Grzegorz Wiggins MD [address], [place] [id number] PCP - General Family Medicine 06/06/23
--- OUTSIDE RECORDS SUMMARY | 2023-10-24 19:38 | XMS_ITS | Continuity of Care Document ---
Author Organization [facility] Address [address] [place] [address] Care Team Providers Care Rn Internal Medicine Name Role Phone Eli Rondon APRN C.N.P. Primary Care Provi khoi Source Comments Patient records contain information from all sites at [facility]. For routine questions regarding patient records, call [phone] during business hours, M-F 8:00 AM - 5:00 PM Central Time. Record requests for emergency care only can be directed to [phone] at any time.[facility] Encounters Date Type Department Care Team Description 4 9:00 AM CDT External Outreach Senior Services [place] [address] Eli Rondon APRN, C.N.P. Tachycardia Atrial Paroxysmal (HCC) (Primary Dx); Chronic Idiopathic Constipation; Malignant Neoplasm Of Cecum (HCC); Malignant Neoplasm Of Colon (HCC); Malignant Neoplasm Of Colon Ascending (HCC); Malignant Neoplasm Of Sigmoid Colon (HCC); Morbid Obesity Body Mass Index 50.0-59.9 Adult (HCC); Diabetes Mellitus Type 2 Peripheral Neuropathy (HCC); Radiculopathy Lumbar; Apnea Sleep Obstructive; Edema Leg Chronic; Anemia Iron Deficiency; Chronic Kidney Disease (CKD), Stage 3a Glomerular Filtration Rate (GFR) 45 To 59 (HCC); Stones Uric Acid; Hyperlipidemia; Hypothyroidism; Hypertensive Chronic Kidney Disease (CKD) Stage 3a Glomerular Filtration Rate (GFR) 45 To 59; Debility; Repeated Falls; Major Depressive Disorder, Recurrent, Unspecified (HCC) 4 CPAP Download Remote Patient Monitoring [facility] [address] [place] [address] [facility], Provider 4 CPAP Download Remote Patient Monitoring [facility] [address] [place] [address] [facility], Provider 4 CPAP Download Remote Patient Monitoring [facility] [address] [place] [address] [facility], Provider 4 1:06 PM CDT - 4 11:59 PM CDT Hospital Encounter Department of Radiology, [facility], in [place], [place] [address] [place] [phone] Mario Alberto Navarro P.A.-C., M.S. Wilner Casas M.D. 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 Colectomy Partial Status Post [...] 4 Clinical Communication Department of Oncology in [place], [place] [address] [place] [phone] Zan Rodriguez P.A.-C., M.S. 4 1:00 PM CDT External Outreach [facility] in [place] [address] [place] [address] John Lerner M.D. Colectomy Partial Status Post [...] 4 Clinical Communication Department of Oncology in [place], [place] [address] [place] [phone] Brenda Delgadillo M.D. Referral 4 Orders Only [facility] in [place] [address] [place] [address] Eli Rondon APRN, C.N.P. 4 3:00 PM MOUNTER SMOKING PIPE Telemedicine Department of Oncology in [place], [place] [address] [place] [phone] Brenda Delgadillo M.D. Malignant Neoplasm Of Colon Ascending (HCC) (Primary Dx); Malignant Neoplasm Of Sigmoid Colon (HCC); Nodules Pulmonary Multiple; Stenosis Spinal Lumbar With Neurogenic Claudication; Diabetes Mellitus Type 2 Peripheral Neuropathy (HCC); Hypertensive Chronic Kidney Disease (CKD) Stage 3a Glomerular Filtration Rate (GFR) 45 To 59 (HCC) 4 9:15 AM MOUNTER SMOKING PIPE Clinical Communication Virtual Review in [place], [place] [address] [place] [address] 4 9:30 AM MOUNTER SMOKING PIPE External Outreach [facility] in [place] [address] [place] [address] Eli Rondon APRN, C.N.P. Anemia Iron Deficiency (Primary Dx); Malignant Neoplasm Of Colon Ascending (HCC); Hypertensive Chronic Kidney Disease (CKD) Stage 3a Glomerular Filtration Rate (GFR) 45 To 59 (HCC); Diabetes Mellitus Type 2 Peripheral Neuropathy (HCC); Stenosis Spinal Lumbar With Neurogenic Claudication; Weakness General 4 Documentation Department of Medical Genetics in [place], [place] [address] [place] [address] Kirsty Mclaughlin Genetic Testing Results 4 CPAP Download Remote Patient Monitoring [facility] [address] [place] [address] [facility], Provider 4 Clinical Communication [facility] in [place] [address] [place] [address] John Lerner M.D. 4 Clinical Communication Department of Oncology in [place], [place] [address] [place] [phone] Brenda Delgadillo M.D. Appt Video 4 2:00 PM MOUNTER SMOKING PIPE Telemedicine Department of Orthopedic Surgery in [place], [place] [address] [place] [address] Mario Alberto Navarro, LeticiaA.-Tayo., M.S. 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 4 1:00 PM MOUNTER SMOKING PIPE External Outreach [facility] in [place] [address] [place] [address] John Lerner M.D. Colectomy Partial Status Post [...] Division of Colon and Rectal Surgery in [place], [place] [address] [place] [address] Bonny Clifton M.B., Lyle Zambrano Results 4 10:30 AM MOUNTER SMOKING PIPE External Outreach [facility] in [place] [address] [place] [address] Eli Rondon, BETHANY, C.N.P. Malignant Neoplasm Of Cecum (HCC) (Primary Dx); [...] Division of Colon and Rectal Surgery in [place], [place] [address] [place] [address] Bonny Clifton M.B., Juan Manuel, Lyle Cancer stage 4 2:08 PM MOUNTER SMOKING PIPE - 4 10:24 AM MOUNTER SMOKING PIPE Hospital Encounter [facility], [facility], [facility], Sixth Floor [address] [place] [address] Bonny Clifton M.B., Juan Manuel, Lyle Repeated Falls (Primary Dx); Malignant Neoplasm Of Colon Ascending (HCC); Morbid Severe Obesity Due To Excess Calories (HCC); Stenosis Spinal Lumbar With Neurogenic Claudication; Weakness General; Debility; Malignant Neoplasm Of Colon (HCC) Discharge Disposition: Custodial Facility 4 12:34 PM MOUNTER SMOKING PIPE - 4 4:51 PM MOUNTER SMOKING PIPE Surgery RST RO MAIN OR [address] [place] [address] Bonny Clifton M.B., Juan Manuel, Lyle LAPAROSCOPIC COLECTOMY RIGHT, ANASTOMOSIS. 4 10:19 AM MOUNTER SMOKING PIPE Anesthesia Event [facility] MAIN OR [address] [place] [address] Shin Woods M.D. Wemple, Keith M, R.N., CCRN 4 3:00 PM MOUNTER SMOKING PIPE Telemedicine Division of Colon and Rectal Surgery in [place], [place] [address] [place] [address] Bonny Clifton M.B., Lyle Zambrano Malignant Neoplasm Of Colon Ascending (HCC) (Primary Dx); Diabetes Mellitus Type 2 Peripheral Neuropathy (HCC); Apnea Sleep Obstructive; Chronic Kidney Disease (CKD), Stage 3a Glomerular Filtration Rate (GFR) 45 To 59 (HCC); Hypothyroidism; Depression Major Recurrent (HCC); Decline Functional Status; Morbid Obesity Body Mass Index 45.0-49.9 Adult (HCC) 4 CPAP Download [facility] [address] [place] [address] [facility], Provider 4 Clinical Communication Senior Services in [place] [address] [place] [address] Eli Rondon APRN, C.N.P. 4 Intake [facility] 4 3:00 PM MOUNTER SMOKING PIPE External Outreach [facility] in [place] [address] [place] [address] Eli Rondon APRN, C.N.P. Anemia Iron Deficiency (Primary Dx); Malignant Neoplasm [...] 4 Clinical Communication Department of Family Medicine, [facility] in [address] [place] [address] Rasheed Pastor APRN, C.N.P. 4 Abstract [facility] Alicia Goldman, [place] [address] [place] [address] Provider, Historical 3 1:20 PM MOUNTER SMOKING PIPE - 4 10:50 AM MOUNTER SMOKING PIPE Hospital Encounter [facility], Second Floor [address] [place] [address] Florencio Smith D.O. Benson, Troy, M.D. Schimming, Christopher, M.D. Hayes, Lisa M, M.D. Langbehn, Jennifer M, D.O. Agunwamba, Akochi O, M.D. Weakness General (Primary Dx); Debility; Pain Low Back Chronic; Decline Functional Status; Pain Back Lumbar Discharge Disposition: Custodial Facility 4 Clinical Communication Department of Orthopedic Surgery in [place], [place] [address] [place] [address] Mario Alberto Navarro, P.A.-C., M.S. Pre-visit Testing Orders 3 Clinical Communication [facility] in [place], [place] [address] [place] [address] Evgeny Ching M.D. 3 CPAP Download Remote Patient Monitoring [facility] [address] [address] [place] [address] [facility], Provider 3 11:00 AM MOUNTER SMOKING PIPE Education Division of General Internal Medicine in [place], [place] [address] [place] [address] Sita Headley V., R.Javier. 3 10:00 AM MOUNTER SMOKING PIPE Comprehensive Visit Division of General Internal Medicine in [place], [place] [address] [place] [address] Bonny Clifton M.B., B.Ch., M.DGrzegorz Boyd M.D. Malignant Neoplasm Of Colon Ascending (HCC) [...] Hypothyroidism; Chronic Idiopathic Constipation 3 1:30 PM MOUNTER SMOKING PIPE Clinical Communication Virtual Review in [address] [address] Pre-visit Intake 3 Orders Only Division of Colon and Rectal Surgery in [address] [address] Sera Cabrera, RHaja. Malignant Neoplasm Of Colon Ascending (HCC) (Primary Dx) 3 Episode Changes Division of Gastroenterology in [address] [address] 3 Clinical Communication Division of Colon and Rectal Surgery in [address] [address] Bonny Clifton M.B., B., Patrice. Schedule surgery 3 Documentation Division of Gastroenterology in [address] [address] Dave Mckeon M.D. 3 Clinical Communication Division of Colon and Rectal Surgery in [address] [address] Sophie Zaragoza, RKeny 3 9:00 AM MOUNTER SMOKING PIPE Virtual Visit Division of Colon and Rectal Surgery in [address] [address] Parag Molina M.D., M.S. Morbid Obesity (HCC) (Primary Dx); Malignant Neoplasm Of Colon Ascending (HCC); Apnea Sleep Obstructive; Chronic Kidney Disease (CKD), Stage 3a Glomerular Filtration Rate (GFR) 45 To 59 (HCC); Hypertension And Chronic Kidney Disease Stage 3 (HCC); Diabetes Mellitus Type 2 (HCC) 3 11:50 AM MOUNTER SMOKING PIPE Ancillary Procedure Department of Nursing 3 2:50 PM MOUNTER SMOKING PIPE Ancillary Procedure Department of Emergency Medicine 3 1:38 AM CDT - 3 1:18 PM MOUNTER SMOKING PIPE Hospital Encounter [facility], [facility], Second Floor [address] [place] [address] Peter Alva M.D., M.S. Montserrat Gilbert M.D. Peter March M.D. Spinal Stenosis Lumbar Region Without Neurogenic Claudication (Primary Dx); Weakness General; Abnormal Posture [R29.3 (ICD-10-CM)]; Decline Functional Status [R53.81 (ICD-10-CM)]; Radiculopathy Lumbar; Debility; Pain Low Back Chronic Discharge Disposition: Custodial Facility 3 Clinical Communication Department of Hospital Internal Medicine in [place], [place] [address] [place] [address] Kandace Weaver, BETHANY, C.N.P., M.S.N. 3 Clinical Communication Division of Colon and Rectal Surgery in [place], [place] [address] [place] [address] Parag Molina M.D., M.S. 3 12:00 PM MOUNTER SMOKING PIPE Virtual Visit Division of Gastroenterology in [place], [place] [address] [place] [address] Dave Mckeon M.D. Malignant Neoplasm Of Colon Ascending (HCC) (Primary Dx) 3 Clinical Communication Department of Medical Genetics in [place], [place] [address] [place] [phone] Eli Herron MJeremias., [facility] Invitae: NK 3 3:42 PM MOUNTER SMOKING PIPE - 3 11:59 PM MOUNTER SMOKING PIPE Hospital Encounter Department of Laboratory Medicine and Pathology, [facility] in [place], [place] [address] [place] [address] Ean Huizar M.D. Malignant Neoplasm Of Colon Ascending (HCC) Discharge Disposition: Home or Self Care 3 11:10 AM MOUNTER SMOKING PIPE Ancillary Procedure Department of Family Medicine 3 Orders Only Department of Orthopedic Surgery in [place], [place] [address] [place] [address] Pérez Ospina M.D. 3 Clinical Communication Division of Gastroenterology in [place], [place] [address] [place] [address] Dave Mckeon M.D. 3 7:40 AM MOUNTER SMOKING PIPE Ancillary Procedure Department of Internal MedicineJed[place], [place] 3 9:00 AM CDT Immunization Section of Infectious Diseases in [place], [place] [address] [place] [address] 3 8:30 AM CDT Comprehensive Visit Department of Medical Genetics in [place], [place] [address] [place] [phone] Dave Mckeon M.D. Eli Herron, M.S., [facility] Malignant Neoplasm Of Colon Ascending (HCC) (Primary Dx) 3 8:00 AM CDT Comprehensive Visit Department of Medical Genetics in [place], [place] [address] [place] [address] Dave Mckeon M.D. Hanson, Grace Malignant Neoplasm Of Colon Ascending (HCC) 3 7:05 AM CDT - 3 11:59 PM CDT Hospital Encounter Department of Laboratory Medicine and Pathology, [facility], in [place], [place] [address] [place] [address] Dave Mckeon M.D. Malignant Neoplasm Of Colon Ascending (HCC); Diabetes Mellitus Type 2 (HCC) Discharge Disposition: Home or Self Care 3 1:40 PM CDT Comprehensive Visit Division of Gastroenterology in [place], [place] [address] [place] [address] Peter Greenberg M.D. Malignant Neoplasm Of Colon Ascending (HCC) (Primary Dx); Diabetes Mellitus Type 2 (HCC) 3 8:15 AM CDT Clinical Communication Virtual Review in [place], [place] [address] [place] [address] Pre-visit Intake 3 9:15 AM CDT Lab RST RO [facility] [address] [place] [phone] Dave Mckeon M.D. Malignant Neoplasm Of Colon Ascending (HCC) 3 4:05 PM CDT Ancillary Procedure Department of Radiology in [place], [place] [address] [place] [address] Dave Mckeon M.D. Malignant Neoplasm Of Colon Ascending (HCC) 3 4:00 PM CDT Ancillary Procedure Department of Radiology in [place], [place] [address] [place] [phone] Dave Mckeon M.D. Malignant Neoplasm Of Colon Ascending (HCC) 3 Clinical Communication Division of Gastroenterology in [place], [place] [address] [place] [phone] Dave Mckeon M.D. Neoplasia; RN Summary 3 Clinical Communication Division of Colon and Rectal Surgery in [address] [address] Prescheduling, Provider Previsit Review 3 Clinical Communication Department of Neurologic Surgery in [address] [address] Nestor Melgoza M.D. 3 Documentation Department of Neurologic Surgery in [address] [address] Nestor Melgoza M.D. 3 12:44 AM CDT - 3 3:59 AM CDT Emergency [facility] Emergency Department [address] [place] [address] Peter Alva M.D., M.S. Pain Back (Primary Dx) Discharge Disposition: Home or Self Care 3 12:20 PM CDT - 3 12:18 PM CDT Hospital Encounter [facility], [facility], Second Floor [address] [place] [address] William Briggs M.D. Johnston Flanders, Megan S, M.D. Decline Functional Status [R53.81 (ICD-10-CM)] (Primary Dx); Debility [R53.81 (ICD-10-CM)]; Debility; Radiculopathy Lumbar; Pain Low Back Chronic; Morbid Obesity (HCC); Spinal Stenosis Lumbar Region Without Neurogenic Claudication; Diabetes Mellitus Type 2 Peripheral Neuropathy (HCC); Diabetes Mellitus Type 2 (HCC); Hypertension And Chronic Kidney Disease Stage 3 (HCC) Discharge Disposition: Home-Health Care [facility] 3 Clinical Communication Department of [facility] Internal Medicine in [address] [address] Kandace Weaver APRN, C.N.P., M.S.N. 3 12:05 PM CDT Ancillary Procedure Department of Nursing 3 3:00 PM CDT Ancillary Procedure Department of Family Medicine 3 12:46 PM CDT - 3 11:20 AM CDT Hospital Encounter [facility], [facility], Fourth Floor [address] [place] [address] Leslie Mosley P.A.-Tayo., M.S. Grzegorz Mccord P.A.-Jerzy Gresham M.D. Palmer, Allyson K, M.D., Ph.D. Marah Ordoñez M.B.B.S., M.Thad Healy M.D. Radiculopathy Lumbar (Primary Dx); Pain Back Lumbar; Decline Functional Status [R53.81 (ICD-10-CM)] Discharge Disposition: Transitional Care Unit 3 Orders Only Department of Neurologic Surgery in [address] [address] Jovi Teague M.D. Stenosis Spinal Lumbar With Neurogenic Claudication (Primary Dx) 3 Clinical Communication RST HIM [address] [place] [phone] Susan Whiting P.A.-C. 3 Clinical Communication RST [facility] [address] [place] [phone] Charlene Redman M.D. Pre-visit Testing Orders; Follow-up Orders; Order Request 3 Orders Only RST [facility] [address] [place] [phone] Altagracia Moseley M.B.B.S., M.D. 3 Clinical Communication RST [facility] [address] [place] [phone] Altagracia Moseley M.B.B.S., Lyle Order Request 2 Documentation Department of Cardiovascular Medicine in [address] [address] Kristian Dasilva M.D. 2 7:21 AM MOUNTER SMOKING PIPE - 2 7:37 AM MOUNTER SMOKING PIPE Hospital Encounter Department of Vascular Medicine in [address] [address] Claribel Alan M.D., Ph.D. 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 Stasis Dermatitis Venous Lower Extremity Right; Edema Lower Extremity; Non-Pressure 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); 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) Discharge Disposition: Home or Self Care 2 1:00 PM MOUNTER SMOKING PIPE Comprehensive Visit Department of Dermatology in [place], [place] [address] [place] [address] Zan Sullivan M.D. Stasis Dermatitis Venous Lower Extremity Right (Primary Dx); Rash Leg; Edema Lower Extremity; Non-Pressure 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); 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) Discharge Disposition: Home or Self Care 2 Clinical Communication Department of Cardiovascular Medicine in [place], [place] [address] [place] [address] Kristian Dasilva M.D. Remote Patient Monitoring (Alert: Atrial Fibrillation ) 2 11:49 AM CDT - 2 11:59 PM CDT Hospital Encounter Division of Cardiovascular Diseases in [place], [place] [address] [place] [address] Kristian Dasilva M.D. Atrial Fibrillation Unspecified Discharge Disposition: Home or Self Care 2 9:30 AM CDT Comprehensive Visit Department of Cardiovascular Medicine in [place], [place] [address] [place] [address] Kristian Dasilva M.D. Atrial Fibrillation Unspecified (Primary Dx); Obstructive Sleep Apnea Adult; Morbid Obesity ([facility]); Diabetes Mellitus Type 2 ([facility]); Hypertension And Chronic Kidney Disease Stage 3 ([facility]); Anemia 2 10:12 AM CDT - 2 11:59 PM CDT Hospital Encounter Department of Radiology, [facility] in [place], [place] [address] [place] [address] Mickey Galvan M.D. Atrial Fibrillation Unspecified Discharge Disposition: Home or Self Care 2 10:22 AM CDT - 2 11:59 PM CDT Hospital Encounter Department of Laboratory Medicine and Pathology, [facility] in [place], [place] [address] [place] [address] Mickey Galvan M.D. Atrial Fibrillation Unspecified Discharge Disposition: Home or Self Care 2 9:41 AM CDT - 2 10:21 AM CDT Hospital Encounter Department of Cardiovascular Diseases in [place], [place] [address] [place] [address] Mickey Galvan M.D. Atrial Fibrillation Unspecified Discharge Disposition: Home or Self Care 2 7:30 AM CDT - 2 9:40 AM CDT Hospital Encounter Department of Cardiovascular Diseases in [place], [place] [address] [place] [address] Mickey Galvan M.D. Atrial Fibrillation Unspecified Discharge Disposition: Home or Self Care 2 Clinical Communication Department of Cardiovascular Medicine in [place], [place] [address] [place] [phone] Automotive Paint TechnicianJorge M.D. Triage 2 9:45 AM CDT Telemedicine [facility] in [place], [place] [address] [place] [address] Dae Velásquez M.D., M.S. Georgia Rios, R.N., CCRN Obstructive Sleep Apnea Adult 2 11:30 AM CDT Telemedicine [facility] in [place], [place] [address] [place] [address] Dae Velásquez M.D., M.S. Obstructive Sleep Apnea Adult (Primary Dx); Morbid Obesity (HCC); Obesity Body Mass Index 30-39.9 Adult; Fatigue 2 8:00 AM CDT Telemedicine Department of Urology in [place], [place] [address] [place] [address] Suzette Fox APRN, C.N.P., D.N.P. Diabetes Mellitus Type 2 (HCC) (Primary Dx); Infection Urinary Tract 2 Clinical Communication Department of Cardiovascular Medicine in [place], [place] [address] [place] [phone] Autom[employer] Paint TechnicianJorge M.D. Triage (Cons/ neph/ Jade/ [id number]) 2 Clinical Communication Department of Urology in [place], [place] [address] [place] [address] Ubde, Faye Mendoza APRN, C.N.Herlinda., D.N.P. Phone call 2 4:30 PM MOUNTER SMOKING PIPE Virtual Visit Division of Nephrology and Hypertension in [place], [place] [address] [place] [address] Mickey Galvan M.D. Infection Urinary Tract; Diabetes Mellitus Type 2 (HCC) 1 [facility] in [place], [place] [address] [place] [phone] Dae Velásquez M.D., M.S. Med Refill (cpap protocal ) 1 Clinical Communication Department of Urology in [place], [place] [address] [place] [address] Zahira Rae P.AAjit-CAjit 1 8:45 AM MOUNTER SMOKING PIPE Comprehensive Visit Department of Urology in [place], [place] [address] [place] [phone] Zahira Rae P.A.-CAjit Infection Urinary Tract (Primary Dx); Hematuria; Pyuria 1 1:30 PM MOUNTER SMOKING PIPE Procedure visit Department of Urology in [place], [place] [address] [place] [address] Mickey Galvan M.D. Carlson, Stephen M, APRN, C.N.P. Hematuria; Pyuria; Infection Urinary Tract; Deficiency Urethral Sphincter Intrinsic ; Neuromuscular Dysfunction Of Bladder Unspecified 1 10:58 AM MOUNTER SMOKING PIPE - 1 11:59 PM MOUNTER SMOKING PIPE Hospital Encounter Department of Laboratory Medicine and Pathology, [facility], in [place], [place] [address] [place] [address] Mickey Galvan M.D. Hematuria; Pyuria; Infection Urinary Tract Discharge Disposition: Home or Self Care 1 10:45 AM MOUNTER SMOKING PIPE Procedure visit Department of Urology in [place], [place] [address] [place] [address] Mickey Galvan M.D. Linder, Brian J, M.D. Savita Veronica L.P.N. Infection Urinary Tract Recurrent (Primary Dx); Infection Urinary Tract; Deficiency Urethral Sphincter Intrinsic 1 Orders Only Division of Nephrology and Hypertension in [place], [place] [address] [place] [address] Mickey Galvan M.D. Hematuria (Primary Dx); Pyuria; Infection Urinary Tract; Deficiency Urethral Sphincter Intrinsic ; Neuromuscular Dysfunction Of Bladder Unspecified ; Other Specified Diabetes Mellitus With Diabetic Chronic Kidney Disease (HCC) 1 12:40 PM CDT - 1 11:59 PM CDT Hospital Encounter Department of Laboratory Medicine and Pathology, [place], [place] [address] [place] [address] Mickey Galvan M.D. Hypertension And Chronic Kidney Disease Stage 3 Discharge Disposition: Home or Self Care 1 12:40 PM CDT - 1 11:59 PM CDT Hospital Encounter Department of Laboratory Medicine and Pathology, [place], [place] [address] [place] [address] Mickey Galvan M.D. Hypertension And Chronic Kidney Disease Stage 3; Dysuria Discharge Disposition: Home or Self Care 1 3:00 PM CDT Office Visit Division of Nephrology and Hypertension in [place], [place] [address] [place] [address] Mickey Galvan M.D. Infection Urinary Tract (Primary Dx); Stones Uric Acid; Nephrolithiasis; Chronic Kidney Disease (CKD), Stage 3a Glomerular Filtration Rate (GFR) 45 To 59 ([facility]); Diabetes Mellitus Type 2 ([facility]) 1 Clinical Communication Division of Nephrology and Hypertension in [place], [place] [address] [place] [phone] Mickey Galvan M.D. Pre-visit Testing Orders 1 Clinical Communication [facility] in [place], [place] [address] [place] [phone] Dae Velásquez M.D., M.S. Med Refill (CPAP RX PROTOCOL ) 0 Clinical Communication [facility] in [place], [place] [address] [place] [phone] Dae Velásquez M.D., M.S. 0 10:00 AM CDT Telemedicine [facility] in [place], [place] [address] [place] [phone] Dae Velásquez M.D., M.S. Apnea Sleep Obstructive; Diabetes Mellitus Type 2 (HCC); Hypertension And Chronic Kidney Disease Stage 3 (HCC); Morbid Obesity Body Mass Index Greater Than Or Equal To 40 Adult ([facility]) 0 10:30 AM MOUNTER SMOKING PIPE Procedure visit Department of Urology in [place], [place] [address] [place] [phone] Lynda Yanes M.D. O'Hara, Alex J, BETHANY, C.N.P., M.S.N. Stent Ureteral Indwelling (Primary Dx); Stone Kidney And Ureteral 0 12:16 PM MOUNTER SMOKING PIPE - 0 11:59 PM MOUNTER SMOKING PIPE Hospital Encounter Department of Radiology, [facility], in [place], [place] [address] [place] [phone] Turner Souza M.D. Stone Kidney Discharge Disposition: Home or Self Care 9 Clinical Communication Department of Urology in [place], [place] [address] [place] [phone] Provider, Unknown surgery questions 9 Documentation Division of Breast, Endocrine, Metabolic, and Gastrointestinal Surgery in [place], [place] [address] [place] [phone] Candi Mathis M.D. 9 Clinical Communication Department of Urology in [place] [id number] [place] [phone] Lynda Yanes M.D. 9 9:45 AM MOUNTER SMOKING PIPE - 9 11:40 AM MOUNTER SMOKING PIPE Surgery [facility] [address] [place] [phone] James Mina M.D. URETEROSCOPY WITH LASER LITHOTRIPSY, proceed as indicated. 9 11:16 AM MOUNTER SMOKING PIPE Anesthesia Event [facility] [address] [place] [phone] Herman Cruz M.D. Weingarten, Toby N, M.D. 9 8:40 AM MOUNTER SMOKING PIPE - 9 4:37 PM MOUNTER SMOKING PIPE Hospital Encounter [facility] [address] [place] [phone] James Mina M.D. Stone Kidney And Ureteral Discharge Disposition: Home or Self Care 9 11:00 AM MOUNTER SMOKING PIPE Education Division of General Internal Medicine in [place], [place] [address] [place] [address] Alicia Zapata R.N. 9 9:30 AM MOUNTER SMOKING PIPE Comprehensive Visit Division of General Internal Medicine in [place], [place] [address] [place] [address] Lynda Yanes M.D. Kebede, Esayas B, M.D. Preanesthetic Medical Exam (Primary Dx); Stone Kidney And Ureteral; Hypertension And Chronic Kidney Disease Stage 3 (HCC); Chronic Kidney Disease Stage 3 Glomerular Filtration Rate 30 To 59; Morbid Obesity Body Mass Index Greater Than Or Equal To 40 Adult (HCC); Apnea Sleep Obstructive 9 Orders Only Department of Urology in [place] [id number] [place] [phone] Lynda Yanes M.D. 9 Clinical Communication Department of Urology in [place], [place] [address] [place] [phone] Provider, Unknown OUTSIDE LABS 9 Clinical Communication Department of Urology in [place] [id number] [place] [phone] Lynda Yanes M.D. Outside urine results 9 Clinical Communication Department of Urology in [place], [place] [address] [place] [phone] Lynda Yanes M.D. 9 Orders Only Department of Urology in [address] [phone] Lynda Yanes M.D. Stone Kidney And Ureteral (Primary Dx) 9 3:42 AM MOUNTER SMOKING PIPE - 9 1:48 PM MOUNTER SMOKING PIPE Hospital Encounter [facility], Sixth Floor [address] [place] [phone] Rito Hays M.D. Stone Kidney And Ureteral (Primary Dx); Nephrolithiasis; Decline Functional Status Discharge Disposition: Home or Self Care 9 Orders Only Department of Urology in [address] [phone] Lynda Yanes M.D. 9 1:25 PM MOUNTER SMOKING PIPE Ancillary Procedure Department of Urology 9 11:47 AM MOUNTER SMOKING PIPE Anesthesia Event [facility] OR [address] [place] [phone] Scooby Haas M.D. Alleckson, Jonathan D, ASSISTANT SPA MANAGER, EDGARDO, D.N.P. 9 11:18 AM MOUNTER SMOKING PIPE - 9 1:13 PM MOUNTER SMOKING PIPE Surgery [facility] [address] [place] [phone] Ashkan Villanueva M.D. CYSTOURETHROSCOPY WITH PLACEMENT URETERAL STENT 9 Intake [facility] 9 Clinical Communication [facility] in [place], [place] [address] [place] [phone] Reinier Flores M.D. Reschedule ( Automatic Appointment Reminder to reschedule appointment.) 9 Clinical Communication Division of Nephrology and Hypertension in [place], [place] [address] [place] [phone] Mickey Galvan M.D. phone call 9 Orders Only Department of Urology in [place], [place] [address] [place] [address] Turner Souza M.D. Stone Kidney 9 7:00 AM CDT - 9 11:59 PM CDT Hospital Encounter Department of Radiology, [facility] in [place], [place] [address] [place] [address] Mickey Galvan M.D. Stones Uric Acid Discharge Disposition: Home or Self Care 9 10:30 AM CDT Office Visit Division of Nephrology and Hypertension in [place], [place] [address] [place] [address] Mickey Galvan M.D. Stones Uric Acid (Primary Dx); Diabetes Mellitus Type 2 (HCC); Morbid Obesity Body Mass Index Greater Than Or Equal To 40 Adult (HCC) 9 Orders Only Division of Nephrology and Hypertension in [place], [place] [address] [place] [address] Mickey Galvan M.D. Diabetes Mellitus Type 2 (HCC) (Primary Dx); Morbid Obesity Body Mass Index Greater Than Or Equal To 40 Adult (HCC); Stones Uric Acid 9 11:30 AM CDT Office Visit Division of Nephrology and Hypertension in [place], [place] [address] [place] [address] Mickey Galvan M.D. Stones Uric Acid (Primary Dx) 9 3:00 PM CDT Clinical Support Department of Nutrition and Diabetes Education in [place], [place] [address] [place] [address] Whitney Monroe M.S., CRYSN, LD Stone Kidney 9 11:48 AM CDT - 9 11:59 PM CDT Hospital Encounter Department of Radiology, [facility] in [place], [place] [address] [place] [address] Mickey Galvan M.D. Stone Kidney Discharge Disposition: Home or Self Care 9 10:20 AM CDT - 9 10:32 AM CDT Hospital Encounter Department of Laboratory Medicine and Pathology, [place], [place] [address] [place] [address] Mickey Galvan M.D. Stone Kidney Discharge Disposition: Home or Self Care 9 10:34 AM CDT - 9 11:47 AM CDT Hospital Encounter Department of Laboratory Medicine and Pathology, [place], [place] [address] [place] [address] Mickey Galvan M.D. Stone Kidney Discharge Disposition: Home or Self Care 9 10:33 AM CDT Hospital Encounter Department of Laboratory Medicine and Pathology, [facility] in [place], [place] [address] [place] [address] Mickey Galvan M.D. Stone Kidney Discharge Disposition: Home or Self Care 9 Orders Only Division of Nephrology and Hypertension in [place], [place] [address] [place] [phone] Mickey Galvan M.D. Diabetes Mellitus Type 2 (HCC) (Primary Dx); Stone Kidney 9 9:30 AM CDT Comprehensive Visit Division of Nephrology and Hypertension in [place], [place] [address] [place] [phone] Mickey Galvan M.D. Diabetes Mellitus Type 2 (HCC) (Primary Dx); Morbid Obesity Body Mass Index Greater Than Or Equal To 40 Adult (HCC); Nephrolithiasis Calcium Oxalate; Stones Uric Acid; Proteinuria; Hypertension Essential Primary 9 Refill [facility] in [place], [place] [address] [place] [address] Reinier Flores M.D. Med Refill (cpap protocol) 8 Clinical Communication Division of Nephrology and Hypertension in [place], [place] [address] [place] [address] Kevin Santiago M.D., Ph.D. Pre-visit Testing Orders (02/13 appt) 8 Abstract DATA ABSTRACTION Provider, Historical 8 Refill [facility] in [place], [place] [address] [place] [address] Nestor Quezada R.N. Med Refill (CPAP PROTOCOL) 8 Orders Only [facility] in [place], [place] [address] [place] [address] Reinier Flores M.D. 7 - 7 11:59 [...] 125 mcg for total dose 225 mcg 5 Active levothyroxine (SYNTHROID, LEVOTHROID) 125 mcg tablet Take 125 mcg by mouth every morning before breakfast. With 100 mcg for total dose 225 mcg 5 Active glucosamine HCl/chondroitin scanlon (GLUCOSAMINE-CHO NDROITIN ORAL) Take 1 tablet by mouth 3 (three) times a day. 500-400 mg 7 Active pravastatin (PRAVACHOL) 80 mg tablet Take 1 tablet by mouth at bedtime. 6 Active tamsulosin (FLOMAX) 0.4 mg 24 hr capsule Take 2 capsules by mouth at bedtime. 5 Active allopurinol (ZYLOPRIM) 300 mg tablet Take 300 mg by mouth daily. Active pantoprazole (PROTONIX) 40 mg EC tablet Take 40 mg by mouth every morning before breakfast. Active DULoxetine (CYMBALTA) [address] capsule Take 1 capsule (30 mg total) by mouth 2 (two) times a day. 60 capsule 3 11/05/19 24 Active dilTIAZem CD (CARDIZEM CD/CARTIA XT) 240 mg 24 hr capsule Take 240 mg by mouth 2 (two) times a day. Started 12/29/2022 Active DME Bi-level PAPIndications:O bstructive Sleep Apnea Adult DME Order 1 each 4 Active metFORMIN (GLUCOPHAGE) 1,000 mg tablet Take 1 tablet (1,000 mg total) by mouth 2 (two) times a day with meals. 4 Active spironolactone (ALDACTONE) 25 mg tablet Take 1 tablet (25 mg total) by mouth daily. 4 Active losartan (COZAAR) 100 mg tablet Take 0.5 tablets (50 mg total) by mouth daily. 4 Active polyethylene glycol (MIRALAX) 17 gram/dose oral [...] 2 (two) times a day. 60 capsule 4 07/05/19 25 Active furosemide (LASIX) 20 mg tablet Take 2 tablets (40 mg total) by mouth 2 (two) times a day. 4 Active emollient cream, VANICREAM, Apply 1 Application topically 2 (two) times a day as needed. Apply to right heel. Active glipiZIDE (GlucotroL) 5 mg tablet Take 5 mg by mouth 2 (two) times a day. Active apixaban (Eliquis) 5 mg tablet Take 5 mg by mouth 2 (two) times a day. Active acetaminophen (TylenoL) 500 mg tablet Take 2 tablets (1,000 mg total) by mouth 3 (three) times a day as needed for pain. 4 Active sodium bicarbonate 650 mg tablet Take 3 tablets (1,950 mg total) by mouth 3 (three) times a day. 4 Active insulin glargine 100 unit/mL (3 mL) injection Inject 38 Units under the skin at bedtime. Pharmacy select brand per patient insurance/prefe rence. 4 Active nystatin (Nystop) 100,000 unit/gram powder Apply 1 Application topically 2 (two) times a day. Apply to skin folds for yeast infection. 4 Active acetaminophen (TYLENOL) 500 mg tablet Take 2 tablets (1,000 mg total) by mouth 4 (four) times a day. 3 10/24/19 24 Discontinued sodium bicarbonate 650 mg tablet Take 2 tablets (1,300 mg total) by mouth 3 (three) times a day. 3 10/24/19 24 Discontinued nystatin (NYSTOP) 100,000 unit/gram powder Apply 1 Application topically 3 (three) times a day as needed (rash/skin irritation). Apply to skin folds for yeast infection. 15 g 4 10/24/19 24 Discontinued calcium carbonate (TUMS) 500 mg (200 mg calcium) chewable tablet Chew 1 tablet (200 mg of calcium total) daily as needed for heartburn or indigestion. 4 10/24/19 24 Discontinued(Dis continued by another clinician) Lactobacillus rhamnosus GG (CULTURELLE) 10-15 billion cell capsule Take 1 capsule by mouth 2 (two) times a day. 4 10/24/19 24 Discontinued(Dis continued by another clinician) magnesium oxide (MAG-OX) 400 mg (241.3 mg magnesium) tablet Take 1 tablet (400 mg total) by mouth 3 (three) times a day before meals. Low magnesium 4 10/24/19 24 Discontinued(Dis continued by another clinician) insulin aspart U-100 (NovoLOG FlexPen) 100 unit/mL [...] than 399: Call service writing Insulin orders 4 10/24/19 24 Discontinued(Dis continued by another clinician) psyllium, with aspartame, (METAMUCIL) 3.4 gram packet Take 1 packet by mouth daily as needed (Multiple loose stools or diarrhea.). Hold for 2 weeks after surgery. 4 10/24/19 24 Discontinued(Dis continued by another clinician) sennosides-docus ate sodium (SENOKOT-S) 8.6-50 mg per tablet Take 2 tablets by mouth 2 (two) times a day as needed for constipation. Hold for 2 weeks after surgery. Do not take if having diarrhea. 10/24/19 24 Discontinued(Dis continued by another clinician) insulin glargine 100 unit/mL (3 mL) injection Inject 32 Units under the skin at bedtime. Pharmacy select brand per patient insurance/prefe rence. 4 10/24/19 24 Discontinued ferrous sulfate 325 mg (65 mg iron) tablet Take 1 tablet (65 mg of iron total) by mouth daily. 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 He states he is currently not receiving chemotherapy and has follow up in a few months. Repeated Falls 05/11/2023 Last Assessment & Plan: Fall precautions Edema Leg Chronic 05/02/2023 Last Assessment & Plan: Furosemide Spironolactone He is using [place] stockings Daily weights Hypomagnesemia 04/27/2023 Tubular Adenoma Colon Personal History [...] Oncology consultation scheduled for 06/20/23 Debility 10/22/2022 Last Assessment & Plan: Continue with physical therapy and occupational therapy, he was using walker prior to hospital admission Tachycardia Atrial Paroxysmal 10/11/2022 Overview: 01/07 Holter [...] twice daily (increased from 120 BID 02/07) Last Assessment & Plan: Diltiazem 240 mg twice a day Apixaban 5 mg twice a day Chronic Idiopathic Constipation 10/10/2022 Last Assessment & Plan: MiraLAX as needed Anemia Iron Deficiency 10/10/2022 Last Assessment & Plan: Hemoglobin was stable in the hospital at 9.4, he did receive 1 unit of blood on 10/18/2023 due to weakness Diabetes Mellitus Type 2 Peripheral Neuropathy 0 10/08/2022 Last Assessment & Plan: Hemoglobin A1c, B Date Value Ref Range Status 05/11/2023 6.5 (H) 4.0 - 5.6 % Final Comment: Hemoglobin A1c values greater than or equal to 6.5 percent are diagnostic for diabetes mellitus. Diagnosis should be confirmed by repeat testing. In diabetic patients, HbA1c goals should be discussed with healthcare provider. EXT Hemoglobin A1c, Point of Care, B Date Value Ref Range Status 05/11/2023 6.5 (A) 4.0 - 5.6 % Final 10/01/2022 7.0 (H) <=6.4 % Final Metformin a 1000 mg twice a day Glipizide 5 mg twice a day Insulin glargine 38 units at bedtime Blood sugar checks twice a day Pregabalin 300 mg twice a day Decline Functional Status 10/08/2022 Radiculopathy Lumbar 10/07/2022 10/07/2022 Last Assessment & Plan: As needed acetaminophen Glucosamine Lidocaine patch Lyrica Major Depressive Disorder, Recurrent, Unspecifie d 08/20/2022 10/07/2022 Overview: On duloxetine Meets with a counselor Last Assessment & Plan: Duloxetine Apnea Sleep Obstructive 04/02/2019 Overview: 2015 -polysomnography showed severe obstructive sleep apnea. In 120 minutes of sleep, the apnea-hypopnea index was 93 per hour. Snoring was grade 4/4. He desaturated to 80%. CPAP did not resolve, BiPAP did resolve the obstructive apnea. Last Assessment & Plan: BiPAP Nephrolithiasis 03/12/2019 Stone Kidney And Ureteral 03/12/2019 Stones Uric Acid 08/01/2018 Last Assessment & Plan: Allopurinol Hyperlipidemia 01/18/2018 10/07/2022 Last Assessment & Plan: Statin Chronic Kidney Disease (CKD) , Stage 3a Glomerular Filtration Rate (GFR) 45 To 59 07/16/2015 Last Assessment & Plan: BMP ordered for tomorrow Morbid Obesity Body Mass Index 50.0-59.9 Adult 0 07/16/2015 Last Assessment & Plan: Patient would benefit from weight loss Hypertensive Chronic Kidney Disease (CKD) Stage 3a Glomerular Filtration Rate (GFR) 45 To 59 07/16/2015 Last Assessment & Plan: Blood pressure controlled with diltiazem and losartan Stenosis Spinal Lumbar With Neurogenic Claudicat ion [...] 4. Electronically signed by: Kimi Manzano M.D. [phone] 10-Aug-2016 12:45 Failed Gabapentin in 12/2022. Switched to Lyrica. Last Assessment & Plan: Did have consult with Orthopedics. They plan to do a spinal injection in the near future Hypothyroidism 01/26/2015 10/07/2022 Last Assessment & Plan: Levothyroxine Nodule Prostate 04/08/2014 10/07/2022 Resolved Problems Problem [...] - MODE RNA (12 YEARS AND OLDER) [id number] 02/18/2023 Td (Adult), adsorbed 04/02/2019(Deferred : Other [...] cousins Maternal Grandfather (Age 60s) d . [place] Maternal Grandmother (Age 81) Mother (Age 87) Mother's Brother (Age 80s) Heart issues Niece/Nephew Alive No cancer hx fo r nieces or nephews Paternal Cousin Alive No known can cer hx for cousins Paternal Grandfather (Age 60s) d . Heart issues/ Stroke Paternal Grandmother (Age 80s) H eart issues Sister (Age 61) d. Cancer Social History Smoking Status as of 10/24/2023 Tobacco Use Types Packs/Day Years Used Date Smoking Tobacco: Never Assessed [facility] Utilities Answer Date Recorded In the past 12 months has e [employer], gas, oil, or water [employer] threatened to shut off services in your [...] any clubs o r organizations such as buddhist groups, unions, fraternal or athletic groups, or [...] and heating? Not hard at all 02/11/2023 [facility] of Occupat ional Health - Occupational Stress [...] living situation today? I have a [facility] place to live 05/12/2023 Education Answer Date Recorded What is the highest level of school you have completed or the highest degree you have received? Bachelor's degree (e.g., BA, AB, BS) 09/20/2018 Sex and Gender Information Value Date Recorded Sex Assigned at Male 06/14/2018 8:36 PM MOUNTER SMOKING PIPE Gender Identity Male 10/11/2022 10:17 PM CDT Sexual Orientation Choose not to disclose 2019 1:31 PM MOUNTER SMOKING PIPE Last Filed Vital Signs Vital Sign Reading Time Taken Comments Blood Pressure 120/72 10/24/2023 10:37 AM CDT vitals per SNF EHR Pulse 78 10/24/2023 10:37 AM CDT Temperature 36.4 ??C (97.5 ??F) 10/24/2023 1 0:37 AM CDT Respiratory Rate 17 10/24/2023 10:3 7 AM CDT Oxygen Saturation 96% 10/24/2023 10: 37 AM CDT RA Inhaled Oxygen Concentration - - Weight 200 kg (440 lb 12.8 oz) 10/24/2023 10:37 AM CDT Height 185 cm (6' 0.84) 05/11/2023 2:1 5 PM MOUNTER SMOKING PIPE Body Mass Index 58.42 05/11/2023 2:15 PM MOUNTER SMOKING PIPE Plan of Treatment Not on file Medical Devices Explanted Type Area Electrical Control Assembler Device Identifier Shelf Expiration Date Model / Serial / Lot Stnt Uret Inl [id number] - [id number] Implanted:Qty : 1 on 04/04/2019 by Julian Mayfield M.D. at [facility] Ureteral Stent Right: Ureter [employer] [id number] 01/25/2022 [id number] / / [id number] Stnt Uret Inl [id number] - [id number] Implanted:Qty : 1 on 03/12/2019 by Ashkan Villanueva M.D. at [facility] Explanted: by Keith Lovelace, Deuce SIMS, M.S.N. 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 Routine 06/01/2023 12:00 AM MOUNTER SMOKING PIPE MISCELLANEOUS SENT OUT LAB TEST Routine 06/01/2023 12:00 AM MOUNTER SMOKING PIPE Malignant Neoplasm Of Colon Ascending (HCC) GLUCOSE POCT, B Routine 05/16/2023 9:35 AM MOUNTER SMOKING PIPE GLUCOSE POCT, B Routine 05/15/2023 9:10 PM MOUNTER SMOKING PIPE GLUCOSE POCT, B Routine 05/15/2023 4:41 PM MOUNTER SMOKING PIPE GLUCOSE POCT, B Routine 05/15/2023 2:04 PM MOUNTER SMOKING PIPE SARS COV-2 RNA, PCR, VARIES Routine 05/15/2023 9:10 AM MOUNTER SMOKING PIPE REMOTE OXIMETRY MONITORING CONT. Routine 05/15/2023 8:00 AM MOUNTER SMOKING PIPE GLUCOSE POCT, B Routine 05/15/2023 7:46 AM MOUNTER SMOKING PIPE GLUCOSE POCT, B Routine 05/14/2023 8:33 PM MOUNTER SMOKING PIPE REMOTE OXIMETRY MONITORING CONT. Routine 05/14/2023 8:01 PM MOUNTER SMOKING PIPE GLUCOSE POCT, B Routine 05/14/2023 4:04 PM MOUNTER SMOKING PIPE GLUCOSE POCT, B Routine 05/14/2023 1:51 PM MOUNTER SMOKING PIPE GLUCOSE POCT, B Routine 05/14/2023 12:13 PM MOUNTER SMOKING PIPE REMOTE OXIMETRY MONITORING CONT. Routine 05/14/2023 8:01 AM MOUNTER SMOKING PIPE GLUCOSE POCT, B Routine 05/14/2023 7:33 AM MOUNTER SMOKING PIPE GLUCOSE POCT, B Routine 05/13/2023 10:05 PM MOUNTER SMOKING PIPE REMOTE OXIMETRY MONITORING CONT. Routine 05/13/2023 8:00 PM MOUNTER SMOKING PIPE GLUCOSE POCT, B Routine 05/13/2023 3:10 PM MOUNTER SMOKING PIPE REMOTE OXIMETRY MONITORING CONT. Routine 05/13/2023 8:01 AM MOUNTER SMOKING PIPE GLUCOSE POCT, B Routine 05/13/2023 7:52 AM MOUNTER SMOKING PIPE GLUCOSE POCT, B Routine 05/13/2023 3:55 AM MOUNTER SMOKING PIPE REMOTE OXIMETRY MONITORING CONT. Routine 05/13/2023 12:51 AM MOUNTER SMOKING PIPE REMOTE OXIMETRY MONITORING CONT. Routine 05/13/2023 12:51 AM MOUNTER SMOKING PIPE REMOTE OXIMETRY MONITORING CONT. Routine 05/13/2023 12:51 AM MOUNTER SMOKING PIPE GLUCOSE POCT, B Routine 05/12/2023 8:33 PM MOUNTER SMOKING PIPE HIV-1/HIV-2 AB RAPID PT SOURCE, B STAT 05/12/2023 5:44 PM MOUNTER SMOKING PIPE HIV-1/-2 AG AND AB PS, PLASMA STAT 05/12/2023 5:44 PM MOUNTER SMOKING PIPE HBS ANTIGEN PATIENT SOURCE STAT 05/12/2023 5:44 PM MOUNTER SMOKING PIPE HCV RNA PT SOURCE, S STAT 05/12/2023 5:44 PM MOUNTER SMOKING PIPE GLUCOSE POCT, B Routine 05/12/2023 4:32 PM MOUNTER SMOKING PIPE MAYOCOMPLETE CRC PANEL Routine 3:47 PM MOUNTER SMOKING PIPE GLUCOSE POCT, B Routine 05/12/2023 1:47 PM MOUNTER SMOKING PIPE ADULT OXYGEN THERAPY Routine 05/12/2023 1:29 PM MOUNTER SMOKING PIPE SURGICAL PATHOLOGY, [facility] LAB Routine 05/12/2023 12:49 PM MOUNTER SMOKING PIPE Malignant Neoplasm Of Colon Ascending (HCC) GLUCOSE POCT, B Routine 05/12/2023 11:26 AM MOUNTER SMOKING PIPE LDA ANE ARTERIAL LINE INSERTION Routine 05/12/2023 10:45 AM MOUNTER SMOKING PIPE NH ARTL CATH/CNULA MONITOR PERC Routine 05/12/2023 10:45 AM MOUNTER SMOKING PIPE LDA ANE ENDOTRACHEAL AIRWAY Routine 05/12/2023 10:31 AM MOUNTER SMOKING PIPE LAPAROSCOPIC COLECTOMY RIGHT WITH ANASTOMOSIS 05/12/2023 9:59 AM MOUNTER SMOKING PIPE Malignant Neoplasm Of Colon Ascending (HCC) GLUCOSE POCT, B Routine 05/12/2023 9:07 AM MOUNTER SMOKING PIPE GLUCOSE POCT, B Routine 05/11/2023 9:40 PM MOUNTER SMOKING PIPE GLUCOSE POCT, B Routine 05/11/2023 4:56 PM MOUNTER SMOKING PIPE ANTIBODY IDENTIFICATION Routine 05/11/19 3:18 PM MOUNTER SMOKING PIPE HEMOGLOBIN A1C, B Routine 05/11/2023 3:18 PM MOUNTER SMOKING PIPE TYPE AND SCREEN Routine 05/11/2023 3:18 PM MOUNTER SMOKING PIPE CBC WITH DIFFERENTIAL, B Routine 05/11/2023 3:18 PM MOUNTER SMOKING PIPE BASIC METABOLIC PANEL, S/P Routine 05/11/2023 3:18 PM MOUNTER SMOKING PIPE GLUCOSE POCT, B Routine 04/27/2023 7:05 AM MOUNTER SMOKING PIPE MAGNESIUM, S Routine 04/27/2023 6:34 AM MOUNTER SMOKING PIPE BASIC METABOLIC PANEL, S/P Routine 04/27/2023 6:34 AM MOUNTER SMOKING PIPE GLUCOSE POCT, B Routine 04/26/2023 9:34 PM MOUNTER SMOKING PIPE GLUCOSE POCT, B Routine 04/26/2023 5:03 PM MOUNTER SMOKING PIPE URINALYSIS WITH MICROSCOPIC Routine 04/26/2023 2:10 PM MOUNTER SMOKING PIPE GLUCOSE POCT, B Routine 04/26/2023 11:58 AM MOUNTER SMOKING PIPE ADULT OXYGEN THERAPY Routine 04/26/2023 8:00 AM MOUNTER SMOKING PIPE GLUCOSE POCT, B Routine 04/26/2023 7:03 AM MOUNTER SMOKING PIPE GLUCOSE POCT, B Routine 04/25/2023 8:29 PM MOUNTER SMOKING PIPE ADULT OXYGEN THERAPY Routine 04/25/2023 8:00 PM MOUNTER SMOKING PIPE GLUCOSE POCT, B Routine 04/25/2023 4:57 PM MOUNTER SMOKING PIPE GLUCOSE POCT, B Routine 04/25/2023 12:02 PM MOUNTER SMOKING PIPE ADULT OXYGEN THERAPY Routine 04/25/2023 8:00 AM MOUNTER SMOKING PIPE GLUCOSE POCT, B Routine 04/25/2023 6:57 AM MOUNTER SMOKING PIPE GLUCOSE POCT, B Routine 04/24/2023 9:10 PM MOUNTER SMOKING PIPE ADULT OXYGEN THERAPY Routine 04/24/2023 8:00 PM MOUNTER SMOKING PIPE GLUCOSE POCT, B Routine 04/24/2023 4:54 PM MOUNTER SMOKING PIPE GLUCOSE POCT, B Routine 04/24/2023 12:00 PM MOUNTER SMOKING PIPE MAGNESIUM, S Routine 04/24/2023 9:36 AM MOUNTER SMOKING PIPE COMPREHENSIVE METABOLIC PANEL, S/P Routine 04/24/2023 9:36 AM MOUNTER SMOKING PIPE ADULT OXYGEN THERAPY Routine 04/24/2023 8:00 AM MOUNTER SMOKING PIPE GLUCOSE POCT, B Routine 04/24/2023 6:59 AM MOUNTER SMOKING PIPE GLUCOSE POCT, B Routine 04/23/2023 9:10 PM MOUNTER SMOKING PIPE ADULT OXYGEN THERAPY Routine 04/23/2023 8:01 PM MOUNTER SMOKING PIPE GLUCOSE POCT, B Routine 04/23/2023 5:10 PM MOUNTER SMOKING PIPE GLUCOSE POCT, B Routine 04/23/2023 12:05 PM MOUNTER SMOKING PIPE ADULT OXYGEN THERAPY Routine 04/23/2023 8:00 AM MOUNTER SMOKING PIPE GLUCOSE POCT, B Routine 04/23/2023 7:01 AM MOUNTER SMOKING PIPE GLUCOSE POCT, B Routine 04/22/2023 9:02 PM MOUNTER SMOKING PIPE ADULT OXYGEN THERAPY Routine 04/22/2023 8:00 PM MOUNTER SMOKING PIPE GLUCOSE POCT, B Routine 04/22/2023 4:54 PM MOUNTER SMOKING PIPE GLUCOSE POCT, B Routine 04/22/2023 11:59 AM MOUNTER SMOKING PIPE ADULT OXYGEN THERAPY Routine 04/22/2023 8:01 AM MOUNTER SMOKING PIPE GLUCOSE POCT, B Routine 04/22/2023 7:09 AM MOUNTER SMOKING PIPE GLUCOSE POCT, B Routine 04/21/2023 9:56 PM MOUNTER SMOKING PIPE ADULT OXYGEN THERAPY Routine 04/21/2023 8:00 PM MOUNTER SMOKING PIPE GLUCOSE POCT, B Routine 04/21/2023 5:14 PM MOUNTER SMOKING PIPE GLUCOSE POCT, B Routine 04/21/2023 12:00 PM MOUNTER SMOKING PIPE BASIC METABOLIC PANEL, S/P Routine 04/21/2023 8:40 AM MOUNTER SMOKING PIPE CBC WITH DIFFERENTIAL, B Routine 04/21/2023 8:40 AM MOUNTER SMOKING PIPE ADULT OXYGEN THERAPY Routine 04/21/2023 8:01 AM MOUNTER SMOKING PIPE GLUCOSE POCT, B Routine 04/21/2023 7:01 AM MOUNTER SMOKING PIPE GLUCOSE POCT, B Routine 04/20/2023 8:24 PM MOUNTER SMOKING PIPE ADULT OXYGEN THERAPY Routine 04/20/2023 8:01 PM MOUNTER SMOKING PIPE GLUCOSE POCT, B Routine 04/20/2023 5:08 PM MOUNTER SMOKING PIPE BACTERIA / RONDA CULTURE, BLOOD Routine 04/20/2023 12:50 PM MOUNTER SMOKING PIPE BACTERIA / RONDA CULTURE, BLOOD Routine 04/20/2023 12:41 PM MOUNTER SMOKING PIPE GLUCOSE POCT, B Routine 04/20/2023 12:06 PM MOUNTER SMOKING PIPE ADULT OXYGEN THERAPY Routine 04/20/2023 8:00 AM MOUNTER SMOKING PIPE GLUCOSE POCT, B Routine 04/20/2023 6:57 AM MOUNTER SMOKING PIPE CBC WITH DIFFERENTIAL, B Routine 04/20/2023 5:46 AM MOUNTER SMOKING PIPE BASIC METABOLIC PANEL, S/P Routine 04/20/2023 5:46 AM MOUNTER SMOKING PIPE ADULT OXYGEN THERAPY Routine 04/19/2023 8:01 PM MOUNTER SMOKING PIPE GLUCOSE POCT, B Routine 04/19/2023 7:47 PM MOUNTER SMOKING PIPE GLUCOSE POCT, B Routine 04/19/2023 5:07 PM MOUNTER SMOKING PIPE GLUCOSE POCT, B Routine 04/19/2023 12:09 PM MOUNTER SMOKING PIPE ADULT OXYGEN THERAPY Routine 04/19/2023 8:02 AM MOUNTER SMOKING PIPE GLUCOSE POCT, B Routine 04/19/2023 7:24 AM MOUNTER SMOKING PIPE BASIC METABOLIC PANEL, S/P Routine 04/19/2023 5:50 AM MOUNTER SMOKING PIPE CBC WITH DIFFERENTIAL, B Routine 04/19/2023 5:50 AM MOUNTER SMOKING PIPE GLUCOSE POCT, B Routine 04/18/2023 9:11 PM MOUNTER SMOKING PIPE ADULT OXYGEN THERAPY Routine 04/18/2023 8:00 PM MOUNTER SMOKING PIPE GLUCOSE POCT, B Routine 04/18/2023 4:50 PM MOUNTER SMOKING PIPE LACTATE, B/P Routine 04/18/2023 4:33 PM MOUNTER SMOKING PIPE INFLUENZA A, B, RSV, PCR, POCT Routine 04/18/2023 3:25 PM MOUNTER SMOKING PIPE SARS CORONAVIRUS 2, PCR RAPID, V Routine 04/18/2023 3:25 PM MOUNTER SMOKING PIPE CT ABDOMEN PELVIS WITH IV CONTRAST RAD - Routine (most inpatients and all outpatients) 04/18/2023 2:12 PM MOUNTER SMOKING PIPE URINALYSIS WITH MICROSCOPIC Routine 04/18/2023 12:50 PM MOUNTER SMOKING PIPE BACTERIA / RONDA CULTURE, BLOOD Routine 04/18/2023 12:34 PM MOUNTER SMOKING PIPE LACTATE, B/P STAT 04/18/2023 12:29 PM MOUNTER SMOKING PIPE LACTATE FOR SEPSIS WITH REFLEX STAT 04/18/2023 12:29 PM MOUNTER SMOKING PIPE ANTIMICROBIAL SUSCEPTIBILITY, ANAEROBIC BACTERIA, JEANCARLOS Routine 04/18/2023 12:29 PM MOUNTER SMOKING PIPE BACTERIA / RONDA CULTURE, BLOOD Routine 04/18/2023 12:29 PM MOUNTER SMOKING PIPE COMPREHENSIVE METABOLIC PANEL, S/P STAT 04/18/2023 12:28 PM MOUNTER SMOKING PIPE CBC WITH DIFFERENTIAL, B STAT 04/18/2023 12:28 PM MOUNTER SMOKING PIPE GLUCOSE POCT, B Routine 04/18/2023 11:26 AM MOUNTER SMOKING PIPE ADULT OXYGEN THERAPY Routine 04/18/2023 8:00 AM MOUNTER SMOKING PIPE GLUCOSE POCT, B Routine 04/18/2023 7:22 AM MOUNTER SMOKING PIPE GLUCOSE POCT, B Routine 04/17/2023 9:09 PM MOUNTER SMOKING PIPE ADULT OXYGEN THERAPY Routine 04/17/2023 8:00 PM MOUNTER SMOKING PIPE GLUCOSE POCT, B Routine 04/17/2023 5:11 PM MOUNTER SMOKING PIPE GLUCOSE POCT, B Routine 04/17/2023 11:50 AM MOUNTER SMOKING PIPE ADULT OXYGEN THERAPY Routine 04/17/2023 8:00 AM MOUNTER SMOKING PIPE GLUCOSE POCT, B Routine 04/17/2023 7:33 AM MOUNTER SMOKING PIPE GLUCOSE POCT, B Routine 04/16/2023 9:50 PM MOUNTER SMOKING PIPE ADULT OXYGEN THERAPY Routine 04/16/2023 8:00 PM MOUNTER SMOKING PIPE GLUCOSE POCT, B Routine 04/16/2023 5:14 PM MOUNTER SMOKING PIPE GLUCOSE POCT, B Routine 04/16/2023 12:26 PM MOUNTER SMOKING PIPE ADULT OXYGEN THERAPY Routine 04/16/2023 8:00 AM MOUNTER SMOKING PIPE GLUCOSE POCT, B Routine 04/16/2023 7:33 AM MOUNTER SMOKING PIPE GLUCOSE POCT, B Routine 04/15/2023 8:59 PM MOUNTER SMOKING PIPE ADULT OXYGEN THERAPY Routine 04/15/2023 8:00 PM MOUNTER SMOKING PIPE GLUCOSE POCT, B Routine 04/15/2023 5:21 PM MOUNTER SMOKING PIPE GLUCOSE POCT, B Routine 04/15/2023 12:03 PM MOUNTER SMOKING PIPE ECG Routine 04/15/2023 9:35 AM MOUNTER SMOKING PIPE ADULT OXYGEN THERAPY Routine 04/15/2023 8:01 AM MOUNTER SMOKING PIPE GLUCOSE POCT, B Routine 04/15/2023 7:19 AM MOUNTER SMOKING PIPE MORPHOLOGY EVALUATION Routine 04/15/2023 5:56 AM MOUNTER SMOKING PIPE CBC WITH DIFFERENTIAL, B Routine 04/15/2023 5:56 AM MOUNTER SMOKING PIPE GLUCOSE POCT, B Routine 04/14/2023 8:28 PM MOUNTER SMOKING PIPE ADULT OXYGEN THERAPY Routine 04/14/2023 8:01 PM MOUNTER SMOKING PIPE GLUCOSE POCT, B Routine 04/14/2023 5:03 PM MOUNTER SMOKING PIPE GLUCOSE POCT, B Routine 04/14/2023 12:11 PM MOUNTER SMOKING PIPE ADULT OXYGEN THERAPY Routine 04/14/2023 8:00 AM MOUNTER SMOKING PIPE GLUCOSE POCT, B Routine 04/14/2023 7:10 AM MOUNTER SMOKING PIPE ADULT OXYGEN THERAPY Routine 04/13/2023 8:00 PM MOUNTER SMOKING PIPE GLUCOSE POCT, B Routine 04/13/2023 8:00 PM MOUNTER SMOKING PIPE GLUCOSE POCT, B Routine 04/13/2023 5:09 PM MOUNTER SMOKING PIPE GLUCOSE POCT, B Routine 04/13/2023 12:06 PM MOUNTER SMOKING PIPE ADULT OXYGEN THERAPY Routine 04/13/2023 8:00 AM MOUNTER SMOKING PIPE GLUCOSE POCT, B Routine 04/13/2023 7:27 AM MOUNTER SMOKING PIPE URINALYSIS WITH MICROSCOPIC Routine 04/12/2023 8:52 PM MOUNTER SMOKING PIPE BACTERIAL CULTURE, AEROBIC + SUSC, URINE Routine 04/12/2023 8:52 PM MOUNTER SMOKING PIPE GLUCOSE POCT, B Routine 04/12/2023 8:21 PM MOUNTER SMOKING PIPE ADULT OXYGEN THERAPY Routine 04/12/2023 8:01 PM MOUNTER SMOKING PIPE GLUCOSE POCT, B Routine 04/12/2023 5:11 PM MOUNTER SMOKING PIPE GLUCOSE POCT, B Routine 04/12/2023 12:10 PM MOUNTER SMOKING PIPE ADULT OXYGEN THERAPY Routine 04/12/2023 8:01 AM MOUNTER SMOKING PIPE GLUCOSE POCT, B Routine 04/12/2023 6:58 AM MOUNTER SMOKING PIPE GLUCOSE POCT, B Routine 04/11/2023 8:37 PM MOUNTER SMOKING PIPE ADULT OXYGEN THERAPY Routine 04/11/2023 8:00 PM MOUNTER SMOKING PIPE GLUCOSE POCT, B Routine 04/11/2023 5:12 PM MOUNTER SMOKING PIPE GLUCOSE POCT, B Routine 04/11/2023 12:08 PM MOUNTER SMOKING PIPE ADULT OXYGEN THERAPY Routine 04/11/2023 8:00 AM MOUNTER SMOKING PIPE GLUCOSE POCT, B Routine 04/11/2023 7:08 AM MOUNTER SMOKING PIPE GLUCOSE POCT, B Routine 04/10/2023 8:08 PM MOUNTER SMOKING PIPE ADULT OXYGEN THERAPY Routine 04/10/2023 8:00 PM MOUNTER SMOKING PIPE GLUCOSE POCT, B Routine 04/10/2023 4:55 PM MOUNTER SMOKING PIPE GLUCOSE POCT, B Routine 04/10/2023 11:58 AM MOUNTER SMOKING PIPE ADULT OXYGEN THERAPY Routine 04/10/2023 8:00 AM MOUNTER SMOKING PIPE GLUCOSE POCT, B Routine 04/10/2023 7:10 AM MOUNTER SMOKING PIPE GLUCOSE POCT, B Routine 04/09/2023 8:17 PM MOUNTER SMOKING PIPE ADULT OXYGEN THERAPY Routine 04/09/2023 8:00 PM MOUNTER SMOKING PIPE GLUCOSE POCT, B Routine 04/09/2023 5:08 PM MOUNTER SMOKING PIPE GLUCOSE POCT, B Routine 04/09/2023 12:04 PM MOUNTER SMOKING PIPE ADULT OXYGEN THERAPY Routine 04/09/2023 8:01 AM MOUNTER SMOKING PIPE GLUCOSE POCT, B Routine 04/09/2023 7:01 AM MOUNTER SMOKING PIPE ADULT OXYGEN THERAPY Routine 04/08/2023 8:00 PM MOUNTER SMOKING PIPE GLUCOSE POCT, B Routine 04/08/2023 7:53 PM MOUNTER SMOKING PIPE GLUCOSE POCT, B Routine 04/08/2023 5:02 PM MOUNTER SMOKING PIPE GLUCOSE POCT, B Routine 04/08/2023 12:08 PM MOUNTER SMOKING PIPE ADULT OXYGEN THERAPY Routine 04/08/2023 8:01 AM MOUNTER SMOKING PIPE GLUCOSE POCT, B Routine 04/08/2023 7:08 AM MOUNTER SMOKING PIPE BASIC METABOLIC PANEL, S/P Routine 04/08/2023 5:52 AM MOUNTER SMOKING PIPE CBC WITHOUT DIFFERENTIAL, B Routine 04/08/2023 5:52 AM MOUNTER SMOKING PIPE GLUCOSE POCT, B Routine 04/07/2023 8:50 PM MOUNTER SMOKING PIPE ADULT OXYGEN THERAPY Routine 04/07/2023 8:00 PM MOUNTER SMOKING PIPE GLUCOSE POCT, B Routine 04/07/2023 5:00 PM MOUNTER SMOKING PIPE GLUCOSE POCT, B Routine 04/07/2023 12:02 PM MOUNTER SMOKING PIPE ADULT OXYGEN THERAPY Routine 04/07/2023 8:00 AM MOUNTER SMOKING PIPE GLUCOSE POCT, B Routine 04/07/2023 7:19 AM MOUNTER SMOKING PIPE C-REACTIVE PROTEIN (CRP), S/P Routine 04/07/2023 6:08 AM MOUNTER SMOKING PIPE GLUCOSE POCT, B Routine 04/06/2023 8:52 PM MOUNTER SMOKING PIPE ADULT OXYGEN THERAPY Routine 04/06/2023 8:00 PM MOUNTER SMOKING PIPE GLUCOSE POCT, B Routine 04/06/2023 5:16 PM MOUNTER SMOKING PIPE ADULT OXYGEN THERAPY Routine 04/06/2023 8:01 AM MOUNTER SMOKING PIPE GLUCOSE POCT, B Routine 04/06/2023 6:53 AM MOUNTER SMOKING PIPE GLUCOSE POCT, B Routine 04/05/2023 8:27 PM MOUNTER SMOKING PIPE ADULT OXYGEN THERAPY Routine 04/05/2023 8:00 PM MOUNTER SMOKING PIPE GLUCOSE POCT, B Routine 04/05/2023 5:04 PM MOUNTER SMOKING PIPE GLUCOSE POCT, B Routine 04/05/2023 11:58 AM MOUNTER SMOKING PIPE ADULT OXYGEN THERAPY Routine 04/05/2023 8:01 AM MOUNTER SMOKING PIPE GLUCOSE POCT, B Routine 04/05/2023 7:15 AM MOUNTER SMOKING PIPE GLUCOSE POCT, B Routine 04/04/2023 8:05 PM MOUNTER SMOKING PIPE ADULT OXYGEN THERAPY Routine 04/04/2023 8:01 PM MOUNTER SMOKING PIPE GLUCOSE POCT, B Routine 04/04/2023 4:58 PM MOUNTER SMOKING PIPE GLUCOSE POCT, B Routine 04/04/2023 12:00 PM MOUNTER SMOKING PIPE ADULT OXYGEN THERAPY Routine 04/04/2023 8:01 AM MOUNTER SMOKING PIPE GLUCOSE POCT, B Routine 04/04/2023 7:13 AM MOUNTER SMOKING PIPE MORPHOLOGY EVALUATION Routine 04/04/2023 4:42 AM MOUNTER SMOKING PIPE CBC WITH DIFFERENTIAL, B Routine 04/04/2023 4:42 AM MOUNTER SMOKING PIPE GLUCOSE POCT, B Routine 04/03/2023 8:58 PM MOUNTER SMOKING PIPE ADULT OXYGEN THERAPY Routine 04/03/2023 8:00 PM MOUNTER SMOKING PIPE GLUCOSE POCT, B Routine 04/03/2023 5:15 PM MOUNTER SMOKING PIPE GLUCOSE POCT, B Routine 04/03/2023 12:11 PM MOUNTER SMOKING PIPE ADULT OXYGEN THERAPY Routine 04/03/2023 8:00 AM MOUNTER SMOKING PIPE GLUCOSE POCT, B Routine 04/03/2023 7:09 AM MOUNTER SMOKING PIPE GLUCOSE POCT, B Routine 04/02/2023 8:44 PM MOUNTER SMOKING PIPE ADULT OXYGEN THERAPY Routine 04/02/2023 8:00 PM MOUNTER SMOKING PIPE GLUCOSE POCT, B Routine 04/02/2023 5:31 PM MOUNTER SMOKING PIPE GLUCOSE POCT, B Routine 04/02/2023 12:02 PM MOUNTER SMOKING PIPE ADULT OXYGEN THERAPY Routine 04/02/2023 8:00 AM MOUNTER SMOKING PIPE GLUCOSE POCT, B Routine 04/02/2023 7:19 AM MOUNTER SMOKING PIPE GLUCOSE POCT, B Routine 04/01/2023 8:42 PM MOUNTER SMOKING PIPE ADULT OXYGEN THERAPY Routine 04/01/2023 8:00 PM MOUNTER SMOKING PIPE GLUCOSE POCT, B Routine 04/01/2023 5:26 PM MOUNTER SMOKING PIPE GLUCOSE POCT, B Routine 04/01/2023 12:20 PM MOUNTER SMOKING PIPE ADULT OXYGEN THERAPY Routine 04/01/2023 8:00 AM MOUNTER SMOKING PIPE GLUCOSE POCT, B Routine 04/01/2023 7:07 AM MOUNTER SMOKING PIPE GLUCOSE POCT, B Routine 03/31/2023 8:05 PM MOUNTER SMOKING PIPE ADULT OXYGEN THERAPY Routine 03/31/2023 8:00 PM MOUNTER SMOKING PIPE GLUCOSE POCT, B Routine 03/31/2023 5:14 PM MOUNTER SMOKING PIPE URINALYSIS WITH MICROSCOPIC Routine 03/31/2023 4:59 PM MOUNTER SMOKING PIPE GLUCOSE POCT, B Routine 03/31/2023 12:03 PM MOUNTER SMOKING PIPE ADULT OXYGEN THERAPY Routine 03/31/2023 8:01 AM MOUNTER SMOKING PIPE GLUCOSE POCT, B Routine 03/31/2023 7:09 AM MOUNTER SMOKING PIPE GLUCOSE POCT, B Routine 03/30/2023 8:42 PM MOUNTER SMOKING PIPE ADULT OXYGEN THERAPY Routine 03/30/2023 8:01 PM MOUNTER SMOKING PIPE GLUCOSE POCT, B Routine 03/30/2023 5:02 PM MOUNTER SMOKING PIPE GLUCOSE POCT, B Routine 03/30/2023 12:16 PM MOUNTER SMOKING PIPE ADULT OXYGEN THERAPY Routine 03/30/2023 8:01 AM MOUNTER SMOKING PIPE GLUCOSE POCT, B Routine 03/30/2023 7:15 AM MOUNTER SMOKING PIPE GLUCOSE POCT, B Routine 03/29/2023 8:35 PM MOUNTER SMOKING PIPE ADULT OXYGEN THERAPY Routine 03/29/2023 8:00 PM MOUNTER SMOKING PIPE GLUCOSE POCT, B Routine 03/29/2023 5:22 PM MOUNTER SMOKING PIPE GLUCOSE POCT, B Routine 03/29/2023 12:18 PM MOUNTER SMOKING PIPE ADULT OXYGEN THERAPY Routine 03/29/2023 8:00 AM MOUNTER SMOKING PIPE GLUCOSE POCT, B Routine 03/29/2023 7:06 AM MOUNTER SMOKING PIPE GLUCOSE POCT, B Routine 03/28/2023 9:11 PM MOUNTER SMOKING PIPE ADULT OXYGEN THERAPY Routine 03/28/2023 8:00 PM MOUNTER SMOKING PIPE GLUCOSE POCT, B Routine 03/28/2023 5:15 PM MOUNTER SMOKING PIPE GLUCOSE POCT, B Routine 03/28/2023 12:21 PM MOUNTER SMOKING PIPE ADULT OXYGEN THERAPY Routine 03/28/2023 8:00 AM MOUNTER SMOKING PIPE GLUCOSE POCT, B Routine 03/28/2023 7:22 AM MOUNTER SMOKING PIPE IRON AND TOT IRON-BINDING CAPACITY, S/P Routine 03/28/2023 6:01 AM MOUNTER SMOKING PIPE CBC WITH DIFFERENTIAL, B Routine 03/28/2023 6:01 AM MOUNTER SMOKING PIPE GLUCOSE POCT, B Routine 03/27/2023 8:55 PM MOUNTER SMOKING PIPE ADULT OXYGEN THERAPY Routine 03/27/2023 8:00 PM MOUNTER SMOKING PIPE GLUCOSE POCT, B Routine 03/27/2023 5:12 PM MOUNTER SMOKING PIPE GLUCOSE POCT, B Routine 03/27/2023 12:23 PM MOUNTER SMOKING PIPE CBC WITH DIFFERENTIAL, B Routine 03/27/2023 9:28 AM MOUNTER SMOKING PIPE BASIC METABOLIC PANEL, S/P Routine 03/27/2023 9:28 AM MOUNTER SMOKING PIPE ADULT OXYGEN THERAPY Routine 03/27/2023 8:00 AM MOUNTER SMOKING PIPE GLUCOSE POCT, B Routine 03/27/2023 7:29 AM MOUNTER SMOKING PIPE GLUCOSE POCT, B Routine 03/26/2023 9:23 PM MOUNTER SMOKING PIPE ADULT OXYGEN THERAPY Routine 03/26/2023 8:00 PM MOUNTER SMOKING PIPE GLUCOSE POCT, B Routine 03/26/2023 5:13 PM MOUNTER SMOKING PIPE URINALYSIS WITH MICROSCOPIC Routine 03/26/2023 12:57 PM MOUNTER SMOKING PIPE BACTERIAL CULTURE, AEROBIC + SUSC, URINE Routine 03/26/2023 12:57 PM MOUNTER SMOKING PIPE GLUCOSE POCT, B Routine 03/26/2023 12:11 PM MOUNTER SMOKING PIPE ADULT OXYGEN THERAPY Routine 03/26/2023 8:00 AM MOUNTER SMOKING PIPE GLUCOSE POCT, B Routine 03/26/2023 7:14 AM MOUNTER SMOKING PIPE HEMOGLOBIN, B Routine 03/26/2023 6:19 AM MOUNTER SMOKING PIPE GLUCOSE POCT, B Routine 03/25/2023 9:49 PM MOUNTER SMOKING PIPE ADULT OXYGEN THERAPY Routine 03/25/2023 8:00 PM MOUNTER SMOKING PIPE GLUCOSE POCT, B Routine 03/25/2023 5:11 PM MOUNTER SMOKING PIPE GLUCOSE POCT, B Routine 03/25/2023 12:25 PM MOUNTER SMOKING PIPE ADULT OXYGEN THERAPY Routine 03/25/2023 8:02 AM MOUNTER SMOKING PIPE GLUCOSE POCT, B Routine 03/25/2023 7:23 AM MOUNTER SMOKING PIPE GLUCOSE POCT, B Routine 03/25/2023 1:22 AM MOUNTER SMOKING PIPE GLUCOSE POCT, B Routine 03/24/2023 9:29 PM MOUNTER SMOKING PIPE ADULT OXYGEN THERAPY Routine 03/24/2023 8:00 PM MOUNTER SMOKING PIPE GLUCOSE POCT, B Routine 03/24/2023 5:00 PM MOUNTER SMOKING PIPE GLUCOSE POCT, B Routine 03/24/2023 12:18 PM MOUNTER SMOKING PIPE ADULT OXYGEN THERAPY Routine 03/24/2023 8:01 AM MOUNTER SMOKING PIPE GLUCOSE POCT, B Routine 03/24/2023 7:13 AM MOUNTER SMOKING PIPE BASIC METABOLIC PANEL (BMP), POCT, B Routine 03/24/2023 6:26 AM MOUNTER SMOKING PIPE MORPHOLOGY EVALUATION Routine 03/24/2023 5:58 AM MOUNTER SMOKING PIPE BASIC METABOLIC PANEL, S/P Routine 03/24/2023 5:58 AM MOUNTER SMOKING PIPE CBC WITH DIFFERENTIAL, B Routine 03/24/2023 5:58 AM MOUNTER SMOKING PIPE GLUCOSE POCT, B Routine 03/23/2023 8:28 PM MOUNTER SMOKING PIPE ADULT OXYGEN THERAPY Routine 03/23/2023 8:01 PM MOUNTER SMOKING PIPE GLUCOSE POCT, B Routine 03/23/2023 5:14 PM MOUNTER SMOKING PIPE GLUCOSE POCT, B Routine 03/23/2023 12:18 PM MOUNTER SMOKING PIPE ADULT OXYGEN THERAPY Routine 03/23/2023 8:02 AM MOUNTER SMOKING PIPE GLUCOSE POCT, B Routine 03/23/2023 7:20 AM MOUNTER SMOKING PIPE GLUCOSE POCT, B Routine 03/22/2023 8:35 PM MOUNTER SMOKING PIPE ADULT OXYGEN THERAPY Routine 03/22/2023 8:01 PM MOUNTER SMOKING PIPE GLUCOSE POCT, B Routine 03/22/2023 5:17 PM MOUNTER SMOKING PIPE GLUCOSE POCT, B Routine 03/22/2023 12:08 PM MOUNTER SMOKING PIPE HEMOGLOBIN, B Routine 03/22/2023 8:20 AM MOUNTER SMOKING PIPE ADULT OXYGEN THERAPY Routine 03/22/2023 8:01 AM MOUNTER SMOKING PIPE GLUCOSE POCT, B Routine 03/22/2023 7:23 AM MOUNTER SMOKING PIPE BASIC METABOLIC PANEL, S/P Routine 03/22/2023 5:44 AM MOUNTER SMOKING PIPE GLUCOSE POCT, B Routine 03/21/2023 8:24 PM MOUNTER SMOKING PIPE ADULT OXYGEN THERAPY Routine 03/21/2023 8:00 PM MOUNTER SMOKING PIPE GLUCOSE POCT, B Routine 03/21/2023 5:47 PM MOUNTER SMOKING PIPE GLUCOSE POCT, B Routine 03/21/2023 5:11 PM MOUNTER SMOKING PIPE TRANSFUSE RED BLOOD CELLS Routine 03/21/2023 3:40 PM MOUNTER SMOKING PIPE PREPARE RED BLOOD CELLS Routine 03/21/20 12:29 PM MOUNTER SMOKING PIPE TESTING LOCATION Routine 03/21/2023 12:29 PM MOUNTER SMOKING PIPE TYPE AND SCREEN Routine 03/21/2023 12:29 PM MOUNTER SMOKING PIPE GLUCOSE POCT, B Routine 03/21/2023 12:00 PM MOUNTER SMOKING PIPE ADULT OXYGEN THERAPY Routine 03/21/2023 8:01 AM MOUNTER SMOKING PIPE GLUCOSE POCT, B Routine 03/21/2023 7:19 AM [employer] PIPE MORPHOLOGY EVALUATION Routine 03/21/2023 6:09 AM [employer] PIPE CBC WITH DIFFERENTIAL, B Routine 03/21/2023 6:09 AM [employer] PIPE ALBUMIN, S/P Routine 03/21/2023 6:09 AM [employer] PIPE BASIC METABOLIC PANEL, S/P Routine 03/21/2023 6:09 AM [employer] PIPE PREALBUMIN (PAB), S Routine 03/21/2023 6:09 AM [employer] PIPE GLUCOSE POCT, B Routine 03/20/2023 9:14 PM M[employer] PIPE ADULT OXYGEN THERAPY Routine 03/20/2023 8:00 PM M[employer] SMOKING PIPE GLUCOSE POCT, B Routine 03/20/2023 5:04 PM MOUN[employer] SMO[employer] PIPE GLUCOSE POCT, B Routine 03/20/2023 12:20 PM M[employer] SMO[employer] PIPE ADULT OXYGEN THERAPY Routine 03/20/2023 8:00 AM M[employer] SMO[employer] PIPE GLUCOSE POCT, B Routine 03/20/2023 7:18 AM M[employer]MO[employer] PIPE GLUCOSE POCT, B Routine 03/20/2023 2:05 AM M[employer] PIPE GLUCOSE POCT, B Routine 03/19/2023 8:51 PM M[employer] SMO[employer] PIPE ADULT OXYGEN THERAPY Routine 03/19/2023 8:00 PM MOUN[employer] SMO[employer] PIPE GLUCOSE POCT, B Routine 03/19/2023 5:01 PM MOUN[employer] SMO[employer] PIPE GLUCOSE POCT, B Routine 03/19/2023 12:27 PM MOUN[employer] SMO[employer] PIPE ADULT OXYGEN THERAPY Routine 03/19/2023 8:01 AM M[employer] SMO[employer] PIPE GLUCOSE POCT, B Routine 03/19/2023 7:23 AM MOUN[employer] PIPE GLUCOSE POCT, B Routine 03/18/2023 8:38 PM M[employer] SMO[employer] PIPE ADULT OXYGEN THERAPY Routine 03/18/2023 8:00 PM MOUN[employer] SMO[employer] PIPE GLUCOSE POCT, B Routine 03/18/2023 5:13 PM M[employer] SMO[employer] PIPE GLUCOSE POCT, B Routine 03/18/2023 12:20 PM MOUN[employer] SMO[employer] PIPE ADULT OXYGEN THERAPY Routine 03/18/2023 8:01 AM M[employer] PIPE GLUCOSE POCT, B Routine 03/18/2023 7:04 AM M[employer] PIPE MORPHOLOGY EVALUATION Routine 03/18/2023 5:52 AM M[employer] PIPE CBC WITH DIFFERENTIAL, B Routine 03/18/2023 5:52 AM M[employer] PIPE GLUCOSE POCT, B Routine 03/17/2023 8:53 PM MOUN[employer] SMOKING PIPE ADULT OXYGEN THERAPY Routine 03/17/2023 8:01 PM MOUN[employer] SMOKING PIPE GLUCOSE POCT, B Routine 03/17/2023 5:12 PM MOUN[employer] SMOKING PIPE GLUCOSE POCT, B Routine 03/17/2023 12:24 PM MOUN[employer] SMOKING PIPE ADULT OXYGEN THERAPY Routine 03/17/2023 8:02 AM MOUN[employer] SMO[employer] PIPE GLUCOSE POCT, B Routine 03/17/2023 7:04 AM M[employer] SMO[employer] PIPE GLUCOSE POCT, B Routine 03/16/2023 8:35 PM MOUN[employer] SMOKING PIPE ADULT OXYGEN THERAPY Routine 03/16/2023 8:01 PM MOUN[employer] SMO[employer] PIPE GLUCOSE POCT, B Routine 03/16/2023 5:16 PM MOUN[employer] SMOKING PIPE GLUCOSE POCT, B Routine 03/16/2023 12:06 PM MOUN[employer] SMO[employer] PIPE ADULT OXYGEN THERAPY Routine 03/16/2023 8:01 AM MOUN[employer] SMO[employer] PIPE GLUCOSE POCT, B Routine 03/16/2023 7:08 AM M[employer] SMO[employer] PIPE GLUCOSE POCT, B Routine 03/15/2023 8:04 PM MOUN[employer] SMOKING PIPE ADULT OXYGEN THERAPY Routine 03/15/2023 8:01 PM M[employer] SMO[employer] PIPE GLUCOSE POCT, B Routine 03/15/2023 5:12 PM MOUN[employer] SMO[employer] PIPE GLUCOSE POCT, B Routine 03/15/2023 12:18 PM MOUN[employer] SMO[employer] PIPE ADULT OXYGEN THERAPY Routine 03/15/2023 8:01 AM M[employer] SMO[employer] PIPE GLUCOSE POCT, B Routine 03/15/2023 7:36 AM M[employer] PIPE GLUCOSE POCT, B Routine 03/14/2023 8:31 PM M[employer] SMO[employer] PIPE ADULT OXYGEN THERAPY Routine 03/14/2023 8:01 PM M[employer] S[employer] PIPE GLUCOSE POCT, B Routine 03/14/2023 5:12 PM [employer] PIPE GLUCOSE POCT, B Routine 03/14/2023 12:29 PM [employer] PIPE NURSING IMAGE EXAM Routine 03/14/2023 11:50 AM [employer] PIPE ADULT OXYGEN THERAPY Routine 03/14/2023 8:01 AM [employer] PIPE BASIC METABOLIC PANEL, S/P Timed 03/14/2023 7:57 AM [employer] PIPE CBC WITH DIFFERENTIAL, B Timed 03/14/2023 7:57 AM [employer] PIPE GLUCOSE POCT, B Routine 03/14/2023 7:14 AM M[employer] S[employer] PIPE GLUCOSE POCT, B Routine 03/13/2023 8:55 PM MOUN[employer] SMOKING PIPE ADULT OXYGEN THERAPY Routine 03/13/2023 8:00 PM MOUN[employer] SMO[employer] PIPE GLUCOSE POCT, B Routine 03/13/2023 5:18 PM MOUN[employer] SMOKING PIPE GLUCOSE POCT, B Routine 03/13/2023 12:08 PM MOUN[employer] SMO[employer] PIPE ADULT OXYGEN THERAPY Routine 03/13/2023 8:00 AM MOUN[employer] SMO[employer] PIPE GLUCOSE POCT, B Routine 03/13/2023 7:48 AM M[employer] SMO[employer] PIPE GLUCOSE POCT, B Routine 03/12/2023 8:34 PM MOUN[employer] SMOKING PIPE ADULT OXYGEN THERAPY Routine 03/12/2023 8:00 PM MOUN[employer] SMO[employer] PIPE GLUCOSE POCT, B Routine 03/12/2023 5:12 PM MOUN[employer] SMOKING PIPE GLUCOSE POCT, B Routine 03/12/2023 11:58 AM M[employer] SMO[employer] PIPE ADULT OXYGEN THERAPY Routine 03/12/2023 8:01 AM MOUN[employer] SMO[employer] PIPE GLUCOSE POCT, B Routine 03/12/2023 6:57 AM M[employer] SMO[employer] PIPE GLUCOSE POCT, B Routine 03/11/2023 8:15 PM MOUN[employer] SMOKING PIPE ADULT OXYGEN THERAPY Routine 03/11/2023 8:01 PM MOUN[employer] SMOKING PIPE GLUCOSE POCT, B Routine 03/11/2023 5:02 PM MOUN[employer] SMO[employer] PIPE GLUCOSE POCT, B Routine 03/11/2023 2:41 PM MOUN[employer] SMOKING PIPE GLUCOSE POCT, B Routine 03/11/2023 12:22 PM MOUN[employer] SMOKING PIPE ADULT OXYGEN THERAPY Routine 03/11/2023 8:01 AM MOUN[employer] SMOKING PIPE GLUCOSE POCT, B Routine 03/11/2023 7:49 AM M[employer] SMO[employer] PIPE GLUCOSE POCT, B Routine 03/11/2023 2:05 AM MOUN[employer] SMO[employer] PIPE GLUCOSE POCT, B Routine 03/10/2023 9:12 PM MOUN[employer] SMO[employer] PIPE GLUCOSE POCT, B Routine 03/10/2023 8:06 PM MOUN[employer] SMO[employer] PIPE ADULT OXYGEN THERAPY Routine 03/10/2023 8:01 PM M[employer] SMO[employer] PIPE GLUCOSE POCT, B Routine 03/10/2023 7:19 PM MOUNTER SMOKING PIPE GLUCOSE POCT, B Routine 03/10/2023 7:02 PM MOUNTER SMOKING PIPE GLUCOSE POCT, B Routine 03/10/2023 6:43 PM MOUNTER SMOKING PIPE GLUCOSE POCT, B Routine 03/10/2023 6:13 PM MOUNTER SMOKING PIPE GLUCOSE POCT, B Routine 03/10/2023 5:57 PM MOUNTER SMOKING PIPE GLUCOSE POCT, B Routine 03/10/2023 5:29 PM MOUNTER SMOKING PIPE GLUCOSE POCT, B Routine 03/10/2023 5:06 PM MOUNTER SMOKING PIPE GLUCOSE POCT, B Routine 03/10/2023 11:59 AM MOUNTER SMOKING PIPE GLUCOSE POCT, B Routine 03/10/2023 8:15 AM MOUNTER SMOKING PIPE ADULT OXYGEN THERAPY Routine 03/10/2023 8:02 AM MOUNTER SMOKING PIPE GLUCOSE POCT, B Routine 03/10/2023 7:21 AM MOUNTER SMOKING PIPE GLUCOSE POCT, B Routine 03/09/2023 9:10 PM MOUNTER SMOKING PIPE ADULT OXYGEN THERAPY Routine 03/09/2023 8:01 PM MOUNTER SMOKING PIPE GLUCOSE POCT, B Routine 03/09/2023 5:14 PM MOUNTER SMOKING PIPE GLUCOSE POCT, B Routine 03/09/2023 12:38 PM MOUNTER SMOKING PIPE ADULT OXYGEN THERAPY Routine 03/09/2023 8:02 AM MOUNTER SMOKING PIPE GLUCOSE POCT, B Routine 03/09/2023 7:17 AM MOUNTER SMOKING PIPE MORPHOLOGY EVALUATION Routine 03/09/2023 6:00 AM MOUNTER SMOKING PIPE CBC WITH DIFFERENTIAL, B Routine 03/09/2023 6:00 AM MOUNTER SMOKING PIPE BASIC METABOLIC PANEL, S/P Routine 03/09/2023 6:00 AM MOUN[employer] SMO[employer] PIPE GLUCOSE POCT, B Routine 03/08/2023 9:00 PM MOUNTER SMOKING PIPE ADULT OXYGEN THERAPY Routine 03/08/2023 8:02 PM MOUNTER SMOKING PIPE GLUCOSE POCT, B Routine 03/08/2023 4:50 PM MOUNTER SMOKING PIPE EMERGENCY DEPARTMENT IMAGE EXAM Routine 03/08/2023 2:50 PM MOUNTER SMOKING PIPE ADULT OXYGEN THERAPY Routine 03/08/2023 1:59 PM MOUNTER SMOKING PIPE ADULT OXYGEN THERAPY Routine 03/08/2023 1:59 PM MOUN[employer] SMO[employer] PIPE GLUCOSE POCT, B Routine 03/08/2023 7:50 AM MOUN[employer] SMO[employer] PIPE GLUCOSE POCT, B Routine 03/07/2023 8:11 PM MOUNTER SMOKING PIPE GLUCOSE POCT, B Routine 03/07/2023 4:51 PM MOUNTER SMOKING PIPE GLUCOSE POCT, B Routine 03/07/2023 1:03 PM MOUNTER SMOKING PIPE GLUCOSE POCT, B Routine 03/07/2023 8:09 AM MOUNTER SMOKING PIPE HEMOGLOBIN, B Routine 03/07/2023 7:32 AM MOUN[employer] SMO[employer] PIPE GLUCOSE POCT, B Routine 03/06/2023 10:07 PM MOUNTER SMO[employer] PIPE GLUCOSE POCT, B Routine 03/06/2023 6:12 PM MOUNTER SMOKING PIPE GLUCOSE POCT, B Routine 03/06/2023 5:08 PM MOUNTER SMOKING PIPE GLUCOSE POCT, B Routine 03/06/2023 12:33 PM MOUN[employer] SMO[employer] PIPE GLUCOSE POCT, B Routine 03/06/2023 7:52 AM MOUN[employer] SMOKING PIPE GLUCOSE POCT, B Routine 03/05/2023 10:37 PM MOUNTER SMO[employer] PIPE GLUCOSE POCT, B Routine 03/05/2023 7:35 PM MOUNTER SMOKING PIPE GLUCOSE POCT, B Routine 03/05/2023 3:27 PM MOUNTER SMOKING PIPE GLUCOSE POCT, B Routine 03/05/2023 11:59 AM MOUNTER SMOKING PIPE HEMOGLOBIN, B Routine 03/05/2023 7:39 AM MOUN[employer] SMO[employer] PIPE GLUCOSE POCT, B Routine 03/05/2023 7:18 AM MOUN[employer] SMO[employer] PIPE GLUCOSE POCT, B Routine 03/04/2023 10:34 PM MOUNTER SMOKING PIPE GLUCOSE POCT, B Routine 03/04/2023 6:31 PM MOUNTER SMOKING PIPE GLUCOSE POCT, B Routine 03/04/2023 11:29 AM MOUN[employer] SMO[employer] PIPE GLUCOSE POCT, B Routine 03/04/2023 8:20 AM MOUNTER SMOKING PIPE HEMOGLOBIN, B Routine 03/04/2023 6:41 AM MOUNTER SMOKING PIPE GLUCOSE POCT, B Routine 03/03/2023 8:18 PM MOUNTER SMOKING PIPE GLUCOSE POCT, B Routine 03/03/2023 6:32 PM MOUNTER SMOKING PIPE GLUCOSE POCT, B Routine 03/03/2023 12:37 PM MOUNTER SMOKING PIPE GLUCOSE POCT, B Routine 03/03/2023 9:11 AM MOUNTER SMOKING PIPE HEMOGLOBIN, B Routine 03/03/2023 6:48 AM MOUNTER SMOKING PIPE GLUCOSE POCT, B Routine 03/02/2023 9:24 PM MOUNTER SMO[employer] PIPE GLUCOSE POCT, B Routine 03/02/2023 6:13 PM MOUN[employer] SMO[employer] PIPE GLUCOSE POCT, B Routine 03/02/2023 1:30 PM MOUNTER SMO[employer] PIPE GLUCOSE POCT, B Routine 03/02/2023 7:48 AM MOUNTER SMOKING PIPE CBC WITH DIFFERENTIAL, B Routine 03/02/2023 6:11 AM MOUN[employer] SMO[employer] PIPE BASIC METABOLIC PANEL, S/P Routine 03/02/2023 6:11 AM MOUN[employer] SMO[employer] PIPE GLUCOSE POCT, B Routine 03/01/2023 9:33 PM MOUNTER SMO[employer] PIPE GLUCOSE POCT, B Routine 03/01/2023 6:03 PM MOUNTER SMOKING PIPE GLUCOSE POCT, B Routine 03/01/2023 12:43 PM MOUNTER SMOKING PIPE GLUCOSE POCT, B Routine 03/01/2023 8:52 AM MOUNTER SMOKING PIPE CBC WITH DIFFERENTIAL, B Routine 03/01/2023 7:01 AM MOUN[employer] SMO[employer] PIPE BASIC METABOLIC PANEL, S/P Routine 03/01/2023 7:01 AM MOUN[employer] SMO[employer] PIPE GLUCOSE POCT, B Routine 02/28/2023 11:22 PM MOUNTER SMOKING PIPE GLUCOSE POCT, B Routine 02/28/2023 5:54 PM MOUNTER SMO[employer] PIPE GLUCOSE POCT, B Routine 02/28/2023 1:01 PM MOUNTER SMOKING PIPE GLUCOSE POCT, B Routine 02/28/2023 8:33 AM MOUNTER SMOKING PIPE BASIC METABOLIC PANEL, S/P Routine 02/28/2023 7:26 AM MOUNTER SMOKING PIPE CBC WITH DIFFERENTIAL, B Routine 02/28/2023 7:26 AM MOUN[employer] SMOKING PIPE GLUCOSE POCT, B Routine 02/27/2023 10:57 PM MOUN[employer] SMO[employer] PIPE GLUCOSE POCT, B Routine 02/27/2023 6:19 PM MOUN[employer] SMO[employer] PIPE GLUCOSE POCT, B Routine 02/27/2023 11:29 AM MOUNTER SMOKING PIPE GLUCOSE POCT, B Routine 02/27/2023 7:45 AM MOUN[employer] SMO[employer] PIPE BASIC METABOLIC PANEL, S/P Routine 02/27/2023 6:04 AM MOUNTER SMOKING PIPE CBC WITH DIFFERENTIAL, B Routine 02/27/2023 6:04 AM MOUNTER SMOKING PIPE GLUCOSE POCT, B Routine 02/26/2023 10:21 PM MOUNTER SMOKING PIPE GLUCOSE POCT, B Routine 02/26/2023 5:13 PM MOUNTER SMOKING PIPE GLUCOSE POCT, B Routine 02/26/2023 11:50 AM MOUNTER SMOKING PIPE GLUCOSE POCT, B Routine 02/26/2023 7:12 AM MOUNTER SMOKING PIPE CBC WITH DIFFERENTIAL, B Routine 02/26/2023 5:39 AM MOUNTER SMO[employer] PIPE BASIC METABOLIC PANEL, S/P Routine 02/26/2023 5:39 AM MOUN[employer] SMO[employer] PIPE GLUCOSE POCT, B Routine 02/25/2023 9:11 PM MOUN[employer] SMOKING PIPE GLUCOSE POCT, B Routine 02/25/2023 5:17 PM MOUNTER SMOKING PIPE GLUCOSE POCT, B Routine 02/25/2023 11:52 AM MOUNTER SMOKING PIPE FAMILY MEDICINE IMAGE EXAM Routine 02/25/2023 11:08 AM MOUNTER SMOKING PIPE IR LUMBAR SPINE FACET INJECTION RIGHT RAD - Routine (most inpatients and all outpatients) 02/25/2023 10:48 AM MOUN[employer] SMO[employer] PIPE GLUCOSE POCT, B Routine 02/25/2023 8:09 AM MOUN[employer] SMOKING PIPE HEMOGLOBIN, B Routine 02/25/2023 7:21 AM MOUN[employer] SMO[employer] PIPE GLUCOSE POCT, B Routine 02/24/2023 8:40 PM MOUN[employer] SMO[employer] PIPE GLUCOSE POCT, B Routine 02/24/2023 5:28 PM MOUN[employer] SMO[employer] PIPE GLUCOSE POCT, B Routine 02/24/2023 12:12 PM MOUN[employer] SMO[employer] PIPE GLUCOSE POCT, B Routine 02/24/2023 8:18 AM MOUN[employer] SMO[employer] PIPE ELECTROLYTE (CHEM 4) PANEL, S/P Routine 02/24/2023 5:44 AM MOUNTER SMOKING PIPE CBC WITHOUT DIFFERENTIAL, B Routine 02/24/2023 5:44 AM MOUN[employer] SMO[employer] PIPE GLUCOSE POCT, B Routine 02/23/2023 10:50 PM MOUN[employer] SMO[employer] PIPE VANCOMYCIN, TROUGH, S Timed 02/23/2023 6:28 PM MOUN[employer] SMO[employer] PIPE GLUCOSE POCT, B Routine 02/23/2023 6:17 PM MOUN[employer] SMO[employer] PIPE GLUCOSE POCT, B Routine 02/23/2023 5:30 PM MOUN[employer] SMO[employer] PIPE GLUCOSE POCT, B Routine 02/23/2023 12:15 PM MOUNTER SMOKING PIPE GLUCOSE POCT, B Routine 02/23/2023 8:50 AM MOUNTER SMOKING PIPE CBC WITH DIFFERENTIAL, B Routine 02/23/2023 7:04 AM MOUN[employer] SMOKING PIPE BASIC METABOLIC PANEL, S/P Routine 02/23/2023 7:04 AM MOUNTER SMO[employer] PIPE GLUCOSE POCT, B Routine 02/22/2023 10:04 PM MOUNTER SMOKING PIPE GLUCOSE POCT, B Routine 02/22/2023 6:02 PM MOUNTER SMOKING PIPE BACTERIA / RONDA CULTURE, BLOOD Routine 02/22/2023 4:47 PM MOUNTER SMOKING PIPE BACTERIA / RONDA CULTURE, BLOOD Routine 02/22/2023 4:40 PM MOUNTER SMO[employer] PIPE GLUCOSE POCT, B Routine 02/22/2023 12:54 PM MOUNTER SMOKING PIPE PET CT SKULL TO THIGH RAD - Routine (most inpatients and all outpatients) 02/22/2023 12:21 PM MOUNTER SMOKING PIPE GLUCOSE POCT, B Routine 02/22/2023 7:25 AM MOUNTER SMOKING PIPE BASIC METABOLIC PANEL, S/P Routine 02/22/2023 5:06 AM MOUNTER SMOKING PIPE CBC WITHOUT DIFFERENTIAL, B Routine 02/22/2023 5:06 AM MOUNTER SMOKING PIPE HEMOGLOBIN, B STAT 02/22/2023 12:13 AM MOUNTER SMOKING PIPE GLUCOSE POCT, B Routine 02/21/2023 9:19 PM MOUNTER SMOKING PIPE SPSMA RESULT STAT 02/21/2023 4:34 PM MOUNTER SMOKING PIPE HEMOGLOBIN, B STAT 02/21/2023 4:34 PM MOUNTER SMOKING PIPE HEMOGLOBIN, B STAT 02/21/2023 4:34 PM MOUNTER SMOKING PIPE GLUCOSE POCT, B Routine 02/21/2023 4:27 PM MOUNTER SMOKING PIPE MR CERVICAL SPINE WITHOUT IV CONTRAST RAD - Routine (most inpatients and all outpatients) 02/21/2023 3:[address] ABDOMEN PELVIS ANGIOGRAM WITH IV CONTRAST RAD - Routine (most inpatients and all outpatients) 02/21/2023 12:[address] LUMBAR SPINE WITH IV CONTRAST RAD - Routine (most inpatients and all outpatients) 02/21/2023 12:26 PM MOUNTER SMOKING PIPE GLUCOSE POCT, B Routine 02/21/2023 11:33 AM MOUNTER SMOKING PIPE BILIRUBIN DIRECT, S/P Routine 02/21/2023 9:27 AM MOUNTER SMOKING PIPE BILIRUBIN, TOT, S/P Routine 02/21/2023 9:27 AM MOUNTER SMOKING PIPE LACTATE DEHYDROGENASE (LD), S Routine 02/21/2023 9:27 AM MOUNTER SMOKING PIPE HAPTOGLOBIN, S Routine 02/21/2023 9:27 AM MOUNTER SMOKING PIPE GLUCOSE POCT, B Routine 02/21/2023 7:55 AM MOUNTER SMOKING PIPE PREPARE RED BLOOD CELLS Routine 02/22/20 7:35 AM MOUNTER SMOKING PIPE TYPE AND SCREEN STAT 02/21/2023 7:35 AM MOUNTER SMOKING PIPE HEMOGLOBIN, B STAT 02/21/2023 7:35 AM MOUNTER SMOKING PIPE BASIC METABOLIC PANEL, S/P Routine 02/21/2023 1:32 AM MOUNTER SMOKING PIPE CBC WITHOUT DIFFERENTIAL, B Routine 02/21/2023 1:32 AM MOUNTER SMOKING PIPE BACTERIA / RONDA CULTURE, BLOOD Routine 02/21/2023 1:32 AM MOUNTER SMOKING PIPE BACTERIA / RONDA CULTURE, BLOOD Routine 02/21/2023 1:32 AM MOUNTER SMOKING PIPE BACTERIAL CULTURE, AEROBIC + SUSC, URINE Routine 02/20/2023 10:50 PM MOUNTER SMOKING PIPE GLUCOSE POCT, B Routine 02/20/2023 8:46 PM MOUNTER SMOKING PIPE DX LUMBAR SPINE 2-3 VIEWS RAD - Semiurgent (Fast; most ED patients; some inpatients) 02/20/2023 6:25 PM MOUNTER SMOKING PIPE GLUCOSE POCT, B Routine 02/20/2023 5:34 PM MOUNTER SMOKING PIPE INFLUENZA A, B, RSV, PCR, RAPID, V Routine 02/20/2023 4:11 PM MOUNTER SMOKING PIPE SARS CORONAVIRUS 2, PCR RAPID, V Routine 02/20/2023 4:11 PM MOUNTER SMOKING PIPE GLUCOSE POCT, B Routine 02/20/2023 11:48 AM MOUNTER SMOKING PIPE MR LUMBAR SPINE WITHOUT IV CONTRAST RAD - Routine (most inpatients and all outpatients) 02/20/2023 10:42 AM MOUNTER SMOKING PIPE GLUCOSE POCT, B Routine 02/20/2023 8:01 AM MOUNTER SMOKING PIPE [facility] INTERNAL MEDICINE IMAGE EXAM Routine 02/20/2023 6:38 AM MST MICROSCOPIC MANUAL STAT 02/20/2023 6:05 AM MOUNTER SMOKING PIPE DIPSTICK, U STAT 02/20/2023 6:05 AM MOUNTER SMOKING PIPE PH, U STAT 02/20/2023 6:05 AM MOUNTER SMOKING PIPE OSMOLALITY, U STAT 02/20/2023 6:05 AM MOUNTER SMOKING PIPE URINALYSIS WITH MICROSCOPIC STAT 02/20/2023 6:05 AM MOUNTER SMOKING PIPE BACTERIAL CULTURE, AEROBIC + SUSC, URINE STAT 02/20/2023 6:05 AM MOUNTER SMOKING PIPE LACTATE, B/P STAT 02/20/2023 2:34 AM MOUNTER SMOKING PIPE C-REACTIVE PROTEIN (CRP), S/P STAT 02/20/2023 2:34 AM MOUNTER SMOKING PIPE THYROID-STIMULATING HORMONE-SENSITIVE (S-TSH) STAT 02/20/2023 2:34 AM MOUNTER SMOKING PIPE BASIC METABOLIC PANEL, S/P STAT 02/20/2023 2:34 AM MOUNTER SMOKING PIPE CBC WITH DIFFERENTIAL, B STAT 02/20/2023 2:34 AM MOUNTER SMOKING PIPE FERRITIN, S Routine 02/18/2023 7:34 AM CDT [...] PANEL, S/P STAT 10/07/2022 3:57 PM CDT VENOUS LOWER EXTREMITY - HEMODYNAMIC STUDY Routine 04/05/2022 8:33 AM MOUNTER SMOKING PIPE 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 Lower Extremity Non-Pressure 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) LOWER EXTREMITY ARTERIAL - STANDARD PROTOCOL Routine 04/05/2022 8:27 AM MOUNTER SMOKING PIPE 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 Lower Extremity Non-Pressure 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) ECG AMBULATORY REAL TIME CARDIAC MONITORING Routine 01/27/2022 7:31 AM CDT Atrial Fibrillation Unspecified ECG Routine 01/07/2022 11:21 AM CDT Atrial Fibrillation Unspecified HOLTER MONITOR - IN [facility] P[facility]MAN Routine 01/05/2022 11:52 AM CDT Atrial Fibrillation Unspecified DX CHEST AP OR PA AND LATERAL 2 VIEWS RAD - Routine (most inpatients and all outpatients) 01/05/2022 10:29 AM CDT Atrial Fibrillation Unspecified NH T4 FREE Routine 01/04/2022 11:12 AM CDT [...] OUTSIDE CT BODY Routine 04/15/2021 9:55 AM MOUNTER SMOKING PIPE NH CYSTOURETHROSCOPY Routine 03/03/2021 2:05 PM MOUNTER SMOKING PIPE Hematuria Pyuria Infection Urinary Tract Deficiency 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 DIPSTICK, U Routine 03/03/2021 11:43 AM MOUNTER SMOKING PIPE NH OSMOLALITY ASSAY URINE Routine 03/03/2021 11:43 AM MOUNTER SMOKING PIPE PH, RANDOM, U Routine 03/03/2021 11:43 AM MOUNTER SMOKING PIPE MICROSCOPIC MANUAL Routine 03/03/2021 11:43 AM MOUNTER SMOKING PIPE GRAM'S ST, U Routine 03/03/2021 11:43 AM MOUNTER SMOKING PIPE Hematuria Pyuria Infection Urinary Tract URINALYSIS WITH MICROSCOPIC Routine 03/03/2021 11:43 AM MOUNTER SMOKING PIPE Hematuria Pyuria Infection Urinary Tract URO UROFLOW Routine 03/03/2021 10:45 AM MOUNTER SMOKING PIPE Infection Urinary Tract Deficiency Urethral Sphincter Intrinsic DIPSTICK, U Routine 12/11/2020 1:01 PM CDT NH OSMOLALITY ASSAY URINE Routine 12/11/2020 1:01 PM [...] + SUSC, URINE Routine 05/07/2019 10:59 AM MOUNTER SMOKING PIPE Stent Ureteral Indwelling NH CYSTHRSCPY RMVL FB/STENT SMPL Routine 05/07/2019 10:30 AM MOUNTER SMOKING PIPE [facility] ABDOMEN PELVIS KIDNEY STONE QUANT WITHOUT IV CONTRAST RAD - Routine (most inpatients and all outpatients) 04/20/2019 1:00 PM MOUNTER SMOKING PIPE [facility] GLUCOSE POCT, B Routine 04/04/2019 3:39 PM MOUNTER SMOKING PIPE ADULT OXYGEN THERAPY Routine 04/04/2019 1:42 PM MOUNTER SMOKING PIPE FL FLUORO LESS THAN 1 HOUR RAD - Routine (most inpatients and all outpatients) 04/04/2019 1:34 PM MOUNTER SMOKING PIPE KIDNEY STONE ANALYSIS Routine 04/04/2019 1:26 PM MOUNTER SMOKING PIPE [facility] GLUCOSE POCT, B Routine 04/04/2019 12:43 PM MOUNTER SMOKING PIPE LDA ANE ENDOTRACHEAL AIRWAY Routine 04/04/2019 11:49 AM MOUNTER SMOKING PIPE URETEROSCOPY WITH LASER LITHOTRIPSY 04/04/2019 10:57 AM MOUNTER SMOKING PIPE [facility] Case Notes MEDICAL RECORDS TECH [id number] GLUCOSE POCT, B Routine 04/04/2019 10:45 AM MOUNTER SMOKING PIPE GLUCOSE POCT, B Routine 03/15/2019 10:45 AM MOUNTER SMOKING PIPE GLUCOSE POCT, B Routine 03/15/2019 7:43 AM MOUNTER SMOKING PIPE GLUCOSE POCT, B Routine 03/15/2019 1:43 AM MOUNTER SMOKING PIPE GLUCOSE POCT, B Routine 03/14/2019 10:03 PM MOUNTER SMOKING PIPE GLUCOSE POCT, B Routine 03/14/2019 6:51 PM MOUNTER SMOKING PIPE GLUCOSE POCT, B Routine 03/14/2019 10:31 AM MOUNTER SMOKING PIPE ADULT OXYGEN THERAPY Routine 03/14/2019 8:00 AM MOUNTER SMOKING PIPE GLUCOSE POCT, B Routine 03/14/2019 1:03 AM MOUNTER SMOKING PIPE GLUCOSE POCT, B Routine 03/13/2019 9:53 PM MOUNTER SMOKING PIPE ADULT OXYGEN THERAPY Routine 03/13/2019 8:01 PM MOUNTER SMOKING PIPE GLUCOSE POCT, B Routine 03/13/2019 6:25 PM MOUNTER SMOKING PIPE GLUCOSE POCT, B Routine 03/13/2019 1:27 PM MOUNTER SMOKING PIPE ADULT OXYGEN THERAPY Routine 03/13/2019 8:01 AM MOUNTER SMOKING PIPE GLUCOSE POCT, B Routine 03/13/2019 8:01 AM MOUNTER SMOKING PIPE BASIC METABOLIC PANEL, S/P Routine 03/13/2019 2:47 AM MOUNTER SMOKING PIPE CBC WITHOUT DIFFERENTIAL, B Routine 03/13/2019 2:47 AM MOUNTER SMOKING PIPE GLUCOSE POCT, B Routine 03/12/2019 10:44 PM MOUNTER SMOKING PIPE ADULT OXYGEN THERAPY Routine 03/12/2019 8:01 PM MOUNTER SMOKING PIPE GLUCOSE POCT, B Routine 03/12/2019 5:00 PM MOUNTER SMOKING PIPE HEMOGLOBIN A1C, B Routine 03/12/2019 2:10 PM MOUNTER SMOKING PIPE GLUCOSE POCT, B Routine 03/12/2019 1:54 PM MOUNTER SMOKING PIPE FL FLUORO LESS THAN 1 HOUR RAD - Routine (most inpatients and all outpatients) 03/12/2019 1:11 PM MOUNTER SMOKING PIPE GLUCOSE POCT, B Routine 03/12/2019 1:05 PM MOUNTER SMOKING PIPE UROLOGY IMAGE EXAM Routine 03/12/2019 1:02 PM MOUNTER SMOKING PIPE LDA ANE ENDOTRACHEAL AIRWAY Routine 03/12/2019 12:27 PM MOUNTER SMOKING PIPE BACTERIAL CULTURE, AEROBIC + SUSC, URINE Routine 03/12/2019 12:25 PM MOUNTER SMOKING PIPE Nephrolithiasis FUNGAL CULTURE, ROUTINE Routine 03/12/20 19 12:25 PM MOUNTER SMOKING PIPE Nephrolithiasis RETROGRADE PYELOGRAM 03/12/2019 11:32 AM MOUNTER SMOKING PIPE Nephrolithiasis CYSTOURETHROSCOPY WITH PLACEMENT URETERAL STENT 03/12/2019 11:32 AM MOUNTER SMOKING PIPE Nephrolithiasis ECG STAT 03/12/2019 11:15 AM MOUNTER SMOKING PIPE GLUCOSE POCT, B Routine 03/12/2019 11:13 AM MOUNTER SMOKING PIPE GLUCOSE POCT, B Routine 03/12/2019 8:49 AM MOUNTER SMOKING PIPE BACTERIAL CULTURE, AEROBIC + SUSC, URINE Timed 03/12/2019 5:44 AM MOUNTER SMOKING PIPE BACTERIA / RONDA CULTURE, BLOOD Routine 03/12/2019 5:11 AM MOUNTER SMOKING PIPE BACTERIA / RONDA CULTURE, BLOOD Routine 03/12/2019 5:03 AM MOUNTER SMOKING PIPE MICROSCOPIC AUTOMATED Timed 03/12/2019 4:36 AM MOUNTER SMOKING PIPE KETONES,QL(U) Timed 03/12/2019 4:36 AM MOUNTER SMOKING PIPE URINALYSIS WITH MICROSCOPIC Timed 03/12/2019 4:36 AM MOUNTER SMOKING PIPE BASIC METABOLIC PANEL, S/P STAT 03/12/2019 3:58 AM MOUNTER SMOKING PIPE CBC WITH DIFFERENTIAL, B STAT 03/12/2019 3:58 AM MOUNTER SMOKING PIPE GLUCOSE POCT, B Routine 03/12/2019 3:50 AM MOUNTER SMOKING PIPE ADULT OXYGEN THERAPY Routine 03/12/2019 3:31 AM MOUNTER SMOKING PIPE ADULT OXYGEN THERAPY Routine 03/12/2019 3:31 AM MOUNTER SMOKING PIPE OUTSIDE CT BODY Routine 03/11/2019 11:[address] ABDOMEN PELVIS WITHOUT IV CONTRAST RAD [...] UROLOGY IMAGE EXAM Routine 04/04/2015 1:57 PM MOUNTER SMOKING PIPE US ABDOMEN COMPLETE Routine 04/04/2015 9:07 AM MOUNTER SMOKING PIPE BICARBONATE, B/S/P Routine 04/04/2015 7:53 AM MOUNTER SMOKING PIPE CREATININE WITH EGFR, S/P Routine 04/04/2015 7:53 AM MOUNTER SMOKING PIPE SODIUM, S/P Routine 04/04/2015 7:53 AM MOUNTER SMOKING PIPE CALCIUM, TOT, S/P Routine 04/04/2015 7:53 AM MOUNTER SMOKING PIPE POTASSIUM, S/P Routine 04/04/2015 7:53 AM MOUNTER SMOKING PIPE MAGNESIUM, S Routine 04/04/2015 7:53 AM MOUNTER SMOKING PIPE URIC ACID, S/P Routine 04/04/2015 7:53 AM MOUNTER SMOKING PIPE PHOSPHORUS (INORGANIC), S Routine 04/04/2015 7:53 AM MOUNTER SMOKING PIPE CREATININE WITH EGFR, S/P Routine 01/31/2015 10:15 [...] HOME OVERNIGHT OXIMETRY Routine 05/27/2014 10:29 PM MOUNTER SMOKING PIPE ALBUMIN, RANDOM, U Routine 05/27/2014 1:19 PM MOUNTER SMOKING PIPE CREATININE WITH EGFR, S/P Routine 05/27/2014 12:54 PM MOUNTER SMOKING PIPE GLUCOSE, RANDOM, S/P Routine 05/27/2014 12:54 PM MOUNTER SMOKING PIPE HEMOGLOBIN A1C, B Routine 05/27/2014 12:54 PM MOUNTER SMOKING PIPE OUTSIDE CT BODY Routine 05/06/2014 1:13 PM MOUNTER SMOKING PIPE PULMONARY FUNCTION TESTS Routine 03/30/2002 9:39 [address] HEAD WITH IV CONTRAST Routine 10/30/2001 [...] Provider Not In System IMG CT PROCEDURES IIMO NA * FL Lumbar Spine Transforaminal Epidural Injection Right (08/08/2023 2:08 PM CDT) Impressions [id number] - 08/08/2023 2:43 PM CDT Fluoroscopically-guided transforaminal epidural steroid injection. NR Narrative [id number] - 08/08/2023 2:43 PM CDT EXAM: FL [...] felt to best approximate that of an [id number]. Prior right L4 injection did not provide [...] Navarro P.A.-C. M.S. IMG FLUO ROSCOPY PROCEDURES [id number] NA * True Fit (06/01/2023 12:00 AM MOUNTER SMOKING PIPE) Test Name [employer] Custom Panel 06/09/2023 10:53 AM MOUNTER SMOKING PIPE INVC Result SEE COMMENT 06/09/2023 11:10 AM MOUNTER SMOKING PIPE INVC Comment: For final report, select Lab-Send Out Lab Results hyperlink below. 06/01/2023 06/09/2023 10: 53 AM MOUNTER SMOKING PIPE Ean Huizar M.D. LAB MISC ORDERABLE S [facility] [address] [place] [address] INV [facility] [address] [place] [phone] * [id number] [employer] Custom Panel - Miscellaneous Test (06/01/2023 12:00 AM MOUNTER SMOKING PIPE) Test Name [employer] Custom Panel 06/09/2023 10:56 AM MOUNTER SMOKING PIPE HLS Saliva (Mouth) 06/01/2023 06/09/2023 10:53 AM MOUNTER SMOKING PIPE Ean Huizar M.D. LAB [facility] [place] Performing Organization Address [facility] Co de Phone Number [facility] [address] [place] [address], [facility] HLS [facility] [address] [place] [address] * (ABNORMAL) Glucose, POCT (05/16/2023 9:35 AM [employer]OUNTER [employer]MO[employer]IPE) Only the most recent of452 resultswithin the time period is included. Pathologist [facility] Glucose, POCT, B 151(H) 70 - 140 mg/dL 05/16/2023 10:04 AM [employer] PCDE Site Capillary 05/16/2023 10:04 AM [employer] PCDE Last Intake > 4 hours 05/16/2023 10:04 AM [employer] PCDE Blood 05/16/2023 9:35 AM [employer] 05/16/2023 10:05 AM [employer] Unknown Provider LAB POCT ORDERABLES- MANUAL POC [facility] [address] [place] [address], [facility] PCDE [facility] POC [address] [place] [address] * (ABNORMAL) SARS CoV-2 RNA, PCR Asymptomatic (05/15/2023 9:10 AM [employer] SMO[employer]) Pathologist [facility] SARS CoV-2 RNA, PCR, Source Swab, Nasopharynx 05/15/2023 11:55 PM [employer] S[employer]IPE [facility] SARS CoV-2 RNA, PCR Detected(A) Undetected 05/15/2023 11:55 PM [employer] [facility] Comment: SARS-CoV-2 RNA present. ----ADDITIONAL INFORMATION---- This RT-PCR test has received Emergency Use Authorization (EUA) by the U.S. Food and Drug Administration and is used per [employer]'s instructions. Performance characteristics were verified by [facility] in a manner consistent with CLIA requirements. Visit the CDC website: https://www.cdc.gov/coronavirus/ for the most recent guidelines on Coronavirus testing. Fact Sheet for Healthcare Providers: https://www.fda.gov/media/619783/download Fact Sheet for Patients: https://www.fda.gov/media/154180/download Swab (Nasopharynx) 05/15/2023 9:10 AM [employer] 05/15/2023 12:03 PM [employer] Bonny Swanson B.Ch., M.D. LAB M ICROBIOLOGY - GENERAL ORDERABLES Performing Organization Address [facility] Co de Phone Number [facility] [address] [place], [place] [id number] [place] [address] [place] [address] [place] [address] * HIV-1/-2 Ag and Ab PS, Plasma (05/12/2023 5:44 PM [employer]OUN[employer]) Pathologist [facility] HIV-1/-2 Ag and Ab PS, P Negative Negative 05/12/2023 8:32 PM [employer] [facility] Comment: Negative result does not rule out HIV infection. If exposure to HIV infection occurred <14 days ago, contact the laboratory to request addition of HIV-1/HIV-2 RNA Detection Patient Source, Plasma (HEP12). Blood (Blood, Venous) 05/12/2023 5:44 PM [employer] 05/12/2023 7:49 PM [employer] Bonny Swanson B.Ch., M.D. LAB M ICROBIOLOGY - BLOOD ORDERABLES Performing Organization Address [facility] Co de Phone Number [facility] [address] [place] [address] [facility] [address] [place] [address] * HCV RNA Pt Source, Serum (05/12/2023 5:44 PM MOUNTER S[employer]IPE) [facility] HCV RNA Pt Source, S Undetected Undetected IU/mL 05/12/2023 11:11 PM [employer] [facility] Comment: Result in log IU/mL is Undetected. ----ADDITIONAL INFORMATION---- The quantification range of this assay is 15 to 100,000,000 IU/mL (1.18 log to 8.00 log IU/mL). Testing was performed using the sagar HCV test ([employer] Blood (Blood, Venous) 05/12/2023 5:44 PM [employer] 05/12/2023 7:53 PM [employer]IPE Bonny Swanson B.Ch., MMarleny LAB M [employer] - BLOOD ORDERABLES Performing Organization Address City/[facility]/ZIP Co de Phone Number [facility] [address] [place] [address] [facility] [address] [place] [address] [place] [address] * HIV-1/HIV-2 Ab Rapid Pt Source (05/12/2023 5:44 PM MOUNTER SMOKING PIPE) [facility] HIV-1/HIV-2 Ab Rapid Pt Source, B Negative Negative 05/12/2023 6:19 PM MOUNTER SMOKING PIPE METH Blood (Blood, Venous) 05/12/2023 5:44 PM MOUNTER SMOKING PIPE 05/12/2023 5:49 PM MOUNTER SMOKING PIPE Bonny Swanson B.Ch., MMarleny LAB M [employer] - BLOOD ORDERABLES Performing Organization Address City/[facility]/ZIP Co de Phone Number [facility] [address] [place] [address], [place] METH [facility] [address] [place] [address] * HBs Antigen Patient Source (05/12/2023 5:44 PM MOUNTER SMOKING PIPE) HBs Antigen Patient Source, S Negative Negative 05/12/2023 9:55 PM MOUNTER SMOKING PIPE [facility] Blood (Blood, Venous) 05/12/2023 5:44 PM MOUNTER SMOKING PIPE 05/12/2023 7:49 PM MOUNTER SMOKING PIPE Bonny Swanson B.Ch., MMarleny LAB M ICROBIOLOGY - BLOOD ORDERABLES [facility] [address] [place] [address] [facility] [address] [place] [address] * [facility] Colorectal Cancer Panel, Next-Generation Sequencing, Tumor (05/12/2023 3:47 PM MOUNTER SMOKING PIPE) Result Provided diagnosis: colorectal adenocarcinoma Microsatellite Instability (MSI) status: Stable (RODO) The following CLINICALLY RELEVANT VARIANTS were detected: Gene: APC DNA Change: c.4348C>T (Exon 16) Amino Acid Change: p.R1450* ([id number]*) Variant Allele Frequency: 33% Gene: APC DNA Change: c.2319del (Exon 16) Amino Acid Change: p.C236Xwc*4 (Hmb382Fjtdb*4) Variant Allele Frequency: 31.4% Gene: KRAS DNA Change: c.38G>A (Exon 2) Amino Acid Change: p.G13D (Zaj92Pte) Variant Allele Frequency: 55.6% The following VARIANT OF UNCERTAIN SIGNIFICANCE was detected: Gene: MSH6 DNA Change: c.2374C>G (Exon 4) Amino Acid Change: p.L792V ([id number]) Variant Allele Frequency: 16.4% No other reportable sequence variants were detected within the analyzed regions of the tested genes listed in the method description. 06/08/2023 1:38 PM MOUNTER SMOKING PIPE DTL Additional Information CLINICAL TRIALS Possible clinical trials of benefit for this patient can be found at the following sites: 1) ClinicalTrials.gov: www.clinicaltrials. gov/ct2/search/adva nced 2) [facility]: [email or web address] ch/clinical-trials/ 3) National Cancer [place]: www.cancer.gov/clin icaltrials/search REFERENCE TRANSCRIPTS Sequence variant nomenclature is based on the following RefSeq accession numbers (build GRCh37 (hg19)):APC [id number], KRAS [id number] and MSH6 [id number]. 06/08/2023 1:38 PM MOUNTER SMOKING PIPE DTL Specimen Tissue, Tumor 06/08/2023 1:38 PM MOUNTER SMOKING PIPE DTL Tissue ID [id number] 06/08/2023 1:38 PM MOUNTER SMOKING PIPE DTL Method Microscopic examination is performed by [...] and additional information on this test, see [email or web address] (Test ID MCCRC). 06/08/2023 1:38 PM MOUNTER SMOKING PIPE DTL Disclaimer This test cannot differentiate between [...] of heterozygosity) and sequencing artifact/misalignme nt [PMID: 32222878, PMID: 45115646]. This test cannot reliably determine if a [...] developed and its performance characteristics determined by [facility] in a manner consistent with CLIA requirements. This test has not been cleared or approved by the U.S. Food and Drug Administration. 06/08/2023 1:38 PM MOUNTER SMOKING PIPE DTL Released By Carole SheppardS., Ph.D. 06/08/2023 1:38 PM MOUNTER SMOKING PIPE DTL Interpretation MSI: Stable (RODO) NO evidence of microsatellite instability was detected suggesting the presence of normal DNA mismatch repair function within the tumor. Current data suggest that advanced stage solid tumors with intact mismatch repair (RODO) are less likely to be responsive to treatment with immunotherapies such as anti-PD-1 therapies [PMID 61474737, PMID 03708267]. The presence of intact mismatch repair (RODO) is considered to be an unfavorable prognostic factor for patients with colorectal cancer [PMID: 10353483]. 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 Apc interacts with beta-catenin and controls signaling in the Wnt pathway, which helps regulate embryonic development and cell differentiation [PMID:55150985]. Inactivation of Apc results in the deregulation of Wnt signaling through beta-catenin [PMID:69064370]. In the absence of functional Apc, beta-catenin accumulates and is translocated to the nucleus, where it promotes the oracle endeca consultant of genes promoting cellular proliferation [PMID:50251254]. APC mutations have been reported in 48-80% of colon samples [COSMIC, cBioPortal for Cancer Genomics]. There are currently no known clinically approved therapies that specifically target APC mutations. 2) KRAS c.38G>A (p.G13D) (Exon 2) KRAS encodes a signaling protein member of the Burke family [PMID:95483465, PMID:30445710, PMID:39626249]. Activating KRAS alterations, mainly through mutations in exons 2, 3, and 4 (most commonly at codons G12, G13 and Q61), result in oncogenic activation of downstream signaling pathways, including the Jesus/MEK/ERK pathway [PMID:22078925, PMID:6810002]. KRAS mutations have been reported in 33-43% of colon samples [COSMIC, cBioPortal for Cancer Genomics]. Current data suggests that the efficacy of EGFR-targeted therapies in colorectal cancer is limited to patients with tumors lacking an activating KRAS mutation [PMID:79813540, PMID:81803680]. VARIANT OF UNCERTAIN SIGNIFICANCE One variant of uncertain significance was detected. The variant was not observed at significant frequency in population germline/cancer somatic variant databases nor predicted to be functionally significant based on variant type/in silico algorithm results. Additionally, there was no convincing published evidence of cancer association. Therefore, the clinical significance of the detected variant is unknown. 06/08/2023 1:38 PM MOUNTER SMOKING PIPE DTL 05/12/2023 3:47 PM MOUNTER SMOKING PIPE 06/01/2023 1:15 PM MOUNTER SMOKING PIPE Scooby Jacobs M.D. LAB GENETIC SANJAY TINZa [facility] [address] [place] [address], [facility] DTL [address] [place] [address] * Surgical Pathology, Frozen Lab (05/12/2023 12:49 PM MOUNTER SMOKING PIPE) 05/18/2023 4:43 PM MOUNTER SMOKING PIPE METH Participated in the Interpretation Candi Cantu M.D.-Pathology Fellow 05/18/2023 4:43 PM MOUNTER SMOKING PIPE METH Report electronically signed by Kiki RoaB.S., Ph.D. I verify that I have examined all relevant slides/materials for the specimen(s) and rendered or confirmed the diagnosis. 05/18/2023 4:43 PM MOUNTER SMOKING PIPE METH Frozen Intraoperative Report A. ??Terminal ileum, [...] Ph.D. 05/13/2023 10:17 AM 05/18/2023 4:43 PM MOUNTER SMOKING PIPE METH Gross Description A. ??Received fresh labeled [...] nodes are identified within the mesenteric fat. ??Glass Silverer tissue is submitted for frozen and permanent sections. ??Grossed by Musa Kessler M.D., Ph.D.-Pathology Resident/Miracle German, KATHLEEN([facility]). ??Additional sections of adipose tissue are submitted on 05/16/2023 by Georgia Eldridge M.D. -Pathology Resident. 05/18/2023 4:43 PM MOUNTER SMOKING PIPE METH Block Summary A Appendix, terminal ileum, [...] A48 Adipose tissue- 10 05/18/2023 4:43 PM MOUNTER SMOKING PIPE METH Addendum Genetic testing for [facility] Colorectal Cancer Panel ([facility]) will be performed and resulted in the patient's medical record. Signed by Caroline Michaud M.D. 06/02/2023 1:30 PM A portion of the testing process was performed at [facility] site [id number]. 06/02/2023 1:30 PM MOUNTER SMOKING PIPE METH Comment:REVISED RESULTS Interpretation FINAL DIAGNOSIS A. [...] in 1 hotspot field: Not applicable Tumor [place] Score: Not applicable Treatment Effect: No known [...] of the testing process was performed at [facility] site [id number]. Digital imaging was used in the diagnostic assessment of this case. 06/02/2023 1:30 PM MOUNTER SMOKING PIPE METH Tissue (Colon) 05/12/2023 12 :49 PM MOUNTER SMOKING PIPE Bonny Swanson, BEstela, MMarleny LAB S URG PATH ORDERABLES Performing Organization Address City/State/[facility] Co de Phone Number [facility] [address] [place] [address], [facility] METH [address] [place] [address] * [place] ARTL CATH/CNULA MONITOR PERC, LDA ANE ARTERIAL LINE INSERTION (05/12/2023 10:45 AM MOUNTER SMOKING PIPE) Narrative Shin Woods M.D. - 05/12/2023 10:45 AM MOUNTER SMOKING PIPE Marcus Tiwari R.N., AKIRA ? 05/12/2023 10:58 AM Invasive Catheter Date/Time: [...] LDA ANE ENDOTRACHEAL AIRWAY (05/12/2023 10:31 AM MOUNTER SMOKING PIPE) Narrative Marcus Tiwari R.N., CCRN - 05/12/2023 10:31 AM MOUNTER SMOKING PIPE Marcus Tiwari R.N., AKIRA ? 05/12/2023 10:59 AM Airway Date/Time: 05/12/2023 [...] ETT location: oral VL device: glide scope [place] scope blade size: 4 Tube size: 7.5 [...] * Antibody Identification, Erythrocytes (05/11/2023 3:18 PM MOUNTER SMOKING PIPE) [facility] Antibody Identification No antibody detected 05/11/2023 6:14 PM MOUNTER SMOKING PIPE DTL 05/11/2023 3:18 PM MOUNTER SMOKING PIPE 05/11/2023 3:24 PM MOUNTER SMOKING PIPE Narrative [facility] - 05/11/2023 6:14 PM MOUNTER SMOKING PIPE Specimen Information: Specimen ID: [id number] Specimen Collection Start Date: 05/11/2023 ??3:18 PM Specimen Received Date: 05/11/2023 ??3:24 PM Specimen ID: [id number] Specimen Collection Start Date: 05/11/2023 ??3:18 PM Specimen Received Date: 05/11/2023 ??3:24 PM Odilon Blair APRN C.N.P., M.S.N. L AB BLOOD BANK TEST ORDERABLES [facility] [address] [place] [address], [facility] [address] [place] [address] * (ABNORMAL) CBC with Differential, Blood (05/11/2023 3:18 PM MOUNTER SMOKING PIPE) Only the most recent of31 resultswithin the time period is included. [facility] Hemoglobin 9.0(L) 13.2 - 16.6 g/dL 05/11/2023 3:35 PM MOUNTER SMOKING PIPE DTL Hematocrit 30.0(L) 38.3 - 48.6 % 05/11/2023 3:35 PM MOUNTER SMOKING PIPE DTL Erythrocytes 3.93(L) 4.35 - 5.65 x10(12)/L 05/11/2023 3:35 PM MOUNTER SMOKING PIPE DTL MCV 76.3(L) 78.2 - 97.9 fL 05/11/2023 3:35 PM MOUNTER SMOKING PIPE DTL RBC Distrib Width 19.7(H) 11.8 - 14.5 % 05/11/2023 3:35 PM MOUNTER SMOKING PIPE DTL Platelet Count 321(H) 135 - 317 x10(9)/L 05/11/2023 3:35 PM MOUNTER SMOKING PIPE DTL Leukocytes 9.5 3.4 - 9.6 x10(9)/L 05/11/2023 3:35 PM MOUNTER SMOKING PIPE DTL Neutrophils 6.39 1.56 - 6.45 x10(9)/L 05/11/2023 3:35 PM MOUNTER SMOKING PIPE DHPM Lymphocytes 1.98 0.95 - 3.07 x10(9)/L 05/11/2023 3:35 PM MOUNTER SMOKING PIPE DTL Monocytes 0.75 0.26 - 0.81 x10(9)/L 05/11/2023 3:35 PM MOUNTER SMOKING PIPE DTL Eosinophils 0.29 0.03 - 0.48 x10(9)/L 05/11/2023 3:35 PM MOUNTER SMOKING PIPE DTL Basophils 0.05 0.01 - 0.08 x10(9)/L 05/11/2023 3:35 PM MOUNTER SMOKING PIPE DTL Blood (Blood, Venous) 05/11/2023 3:18 PM MOUNTER SMOKING PIPE 05/11/2023 3:27 PM MOUNTER SMOKING PIPE Odilon Blair APRN, C.N.P., M.S.N. L AB BLOOD ADD-ON [facility] [address] [place] [address], [facility] DTL [facility] [address] [place] [address] DHPM [facility] [address] [place] [address] * Type and Screen (with Reflex Antibody ID) (05/11/2023 3:18 PM MOUNTER SMOKING PIPE) Only the most recent of4 resultswithin the time period is included. Pathologist [facility] ABORh A Pos Not applicable 05/11/2023 4:37 PM MOUNTER SMOKING PIPE ETRM Antibody Screen Positive Negative 05/11/2023 4:51 PM MOUNTER SMOKING PIPE ETRM Type & Screen Expiration 05/14/2023 23:59 05/11/2023 4:37 PM MOUNTER SMOKING PIPE ETRM Testing Location [place] DEFAULT 05/11/2023 3:24 PM MOUNTER SMOKING PIPE ETRM Blood (Blood, Venous) 05/11/2023 3:18 PM MOUNTER SMOKING PIPE 05/11/2023 3:24 PM MOUNTER SMOKING PIPE Odilon Blair APRN, C.N.P., M.S.N. L AB BLOOD BANK TEST ORDERABLES Performing Organization Address City/[facility]/ZIP Co de Phone Number [facility] [address] [place] [address], [facility] [address] [place] [address] * (ABNORMAL) Hemoglobin A1c (05/11/2023 3:18 PM MOUNTER SMOKING PIPE) Only the most recent of6 resultswithin the time period is included. Hemoglobin A1c, B 6.5(H) 4.0 - 5.6 % 05/11/2023 5:35 PM MOUNTER SMOKING PIPE DTL Comment: Hemoglobin A1c values greater than or equal to 6.5 percent are diagnostic for diabetes mellitus. ??Diagnosis should be confirmed by repeat testing. ??In diabetic patients, HbA1c goals should be discussed with healthcare provider. Blood (Blood, Venous) 05/11/2023 3:18 PM MOUNTER SMOKING PIPE 05/11/2023 3:27 PM MOUNTER SMOKING PIPE Delma Ramirez APRN, C.N.P., D.N.P. LAB BLOOD ADD-ON [facility] [address] [place] [address], [facility] [address] [place] [address] * (ABNORMAL) Basic Metabolic Panel (05/11/2023 3:18 PM MOUNTER SMOKING PIPE) Only the most recent of31 resultswithin the time period is included. Pathologist [facility] Potassium, S 4.5 3.6 - 5.2 mmol/L 05/11/2023 4:01 PM MOUNTER SMOKING PIPE DTL Sodium, S 139 135 - 145 mmol/L 05/11/2023 4:01 PM MOUNTER SMOKING PIPE DTL Chloride, S 100 98 - 107 mmol/L 05/11/2023 4:01 PM MOUNTER SMOKING PIPE DTL Bicarbonate, S 28 22 - 29 mmol/L 05/11/2023 4:01 PM MOUNTER SMOKING PIPE DTL Anion Gap 11 7 - 15 05/11/2023 4:01 PM MOUNTER SMOKING PIPE DTL BUN (Blood Urea Nitrogen), S 31(H) 8 - 24 mg/dL 05/11/2023 4:01 PM MOUNTER SMOKING PIPE DTL Creatinine 1.37(H) 0.74 - 1.35 mg/dL 05/11/2023 4:01 PM MOUNTER SMOKING PIPE DTL Estimated GFR (eGFR) 55(L) >=60 mL/min/BSA 05/11/2023 4:01 PM MOUNTER SMOKING PIPE DTL Comment: Estimated GFR calculated using the 2020 CKD_EPI creatinine equation. Calcium, Total, S 9.1 8.8 - 10.2 mg/dL 05/11/2023 4:01 PM MOUNTER SMOKING PIPE DTL Glucose, S 192(H) 70 - 140 mg/dL 05/11/2023 4:01 PM MOUNTER SMOKING PIPE DTL Blood (Blood, Venous) 05/11/2023 3:18 PM MOUNTER SMOKING PIPE 05/11/2023 3:45 PM MOUNTER SMOKING PIPE Odilon Blair APRN, C.N.P., M.S.N. L AB BLOOD ADD-ON [facility] [address] [place] [address], [facility] [place] [facility] [address] [place] [address] * (ABNORMAL) Magnesium (04/27/2023 6:34 AM MOUNTER SMOKING PIPE) Only the most recent of7 resultswithin the time period is included. Magnesium, P 1.6(L) 1.7 - 2.3 mg/dL 04/27/2023 7:00 AM MOUNTER SMOKING PIPE [facility] Blood (Blood, Venous) 04/27/2023 6:34 AM MOUNTER SMOKING PIPE 04/27/2023 6:39 AM MOUNTER SMOKING PIPE Moises Ochoa M.D. LAB BLOOD ADD -ON [facility] [address] [place] [address], [facility] in [address] [address] * (ABNORMAL) Urinalysis with Microscopic: Urine, Midstream (04/26/2023 2:10 PM MOUNTER SMOKING PIPE) Only the most recent of14 resultswithin the time period is included. Source Urine, Urine, Midstream 04/26/2023 2:16 PM MOUNTER SMOKING PIPE [facility] Clarity Clear Clear 04/26/2023 2:20 PM MOUNTER SMOKING PIPE [facility] Color Yellow 04/26/2023 2:20 PM MOUNTER SMOKING PIPE [facility] Comment: ----REFERENCE VALUE---- Colorless Yellow Francine Blood Negative Negative 04/26/2023 2:20 PM MOUNTER SMOKING PIPE [facility] Nitrite Negative Negative 04/26/2023 2:20 PM MOUNTER SMOKING PIPE [facility] Leukocyte Esterase Trace(A) Negative 04/26/2023 2:20 PM MOUNTER SMOKING PIPE [facility] Protein Negative mg/dL 04/26/2023 2:20 PM MOUNTER SMOKING PIPE [facility] Comment: ----REFERENCE VALUE---- Negative Trace Glucose 100(A) Negative mg/dL 04/26/2023 2:20 PM MOUNTER SMOKING PIPE [facility] Ketones, QI(U) Negative Negative mg/dL 04/26/2023 2:20 PM MOUNTER SMOKING PIPE [facility] Bilirubin Negative Negative 04/26/2023 2:20 PM MOUNTER SMOKING PIPE [facility] pH 5.5 5.0 - 8.0 04/26/2023 2:20 PM MOUNTER SMOKING PIPE [facility] Specific Fossil 1.020 1.001 - 1.035 04/26/2023 2:20 PM MOUNTER SMOKING PIPE [facility] Urobilinogen 0.2 0.2 - 1.0 mg/dL 04/26/2023 2:20 PM MOUNTER SMOKING PIPE [facility] White Blood Cells Occ-3 /hpf 04/26/2023 2:48 PM MOUNTER SMOKING PIPE [facility] Comment: ----REFERENCE VALUE---- Males: 0-3 Females: 0-10 Unknown: 0-10 Red Blood Cells Occ-2 0 - 2 /hpf 2:48 PM MOUNTER SMOKING PIPE [facility] Dysmorphic Red Blood Cells <=25 <=25 % 04/26/2023 2:48 PM MOUNTER SMOKING PIPE [facility] Squamous Cells Occ-3 /hpf 04/26/2023 2:48 PM MOUNTER SMOKING PIPE [facility] Urine (Urine, Midstream) 04/26/2023 2:10 PM MOUNTER SMOKING PIPE 04/26/2023 2:16 PM MOUNTER SMOKING PIPE Moises Ochoa M.D. LAB URINE ORD ERABLES [facility] [address] [place] [address], [facility] in [address] [address] * (ABNORMAL) Comprehensive Metabolic Panel (04/24/2023 9:36 AM MOUNTER SMOKING PIPE) Only the most recent of5 resultswithin the time period is included. Potassium, P 4.1 3.6 - 5.2 mmol/L 04/24/2023 10:04 AM MOUNTER SMOKING PIPE [facility] Sodium, P 141 135 - 145 mmol/L 04/24/2023 10:04 AM MOUNTER SMOKING PIPE [facility] Chloride, P 105 98 - 107 mmol/L 04/24/2023 10:04 AM MOUNTER SMOKING PIPE [facility] Bicarbonate, P 24 22 - 29 mmol/L 04/24/2023 10:04 AM MOUNTER SMOKING PIPE [facility] Anion Gap, P 12 7 - 15 04/24/2023 10:04 AM MOUNTER SMOKING PIPE [facility] BUN (Blood Urea Nitrogen), P 30(H) 8 - 24 mg/dL 04/24/2023 10:04 AM MOUNTER SMOKING PIPE [facility] Creatinine 1.33 0.74 - 1.35 mg/dL 04/24/2023 10:04 AM MOUNTER SMOKING PIPE [facility] Estimated GFR (eGFR) 58(L) >=60 mL/min/BS A 04/24/2023 10:04 AM MOUNTER SMOKING PIPE [facility] Comment: Estimated GFR calculated using the 2020 CKD_EPI creatinine equation. Calcium, Total, P 8.7(L) 8.8 - 10.2 mg/dL 04/24/2023 10:04 AM MOUNTER SMOKING PIPE [facility] Glucose, P 263(H) 70 - 140 mg/dL 04/24/2023 10:04 AM MOUNTER SMOKING PIPE [facility] Protein, Total, P 5.6(L) 6.3 - 7.9 g/dL 04/24/2023 10:04 AM MOUNTER SMOKING PIPE [facility] Albumin, P 3.3(L) 3.5 - 5.0 g/dL 04/24/2023 10:04 AM MOUNTER SMOKING PIPE [facility] Aspartate Aminotransferase (AST), P 7(L) 8 - 48 U/L 04/24/2023 10:04 AM MOUNTER SMOKING PIPE [facility] Alkaline Phosphatase, P 84 40 - 129 U/L 04/24/2023 10:04 AM MOUNTER SMOKING PIPE [facility] Alanine Aminotransferase (ALT), P 11 7 - 55 U/L 04/24/2023 10:04 AM MOUNTER SMOKING PIPE [facility] Bilirubin, Total, P <0.2 0.0 - 1.2 mg/dL 04/24/2023 10:04 AM MOUNTER SMOKING PIPE [facility] Blood (Blood, Venous) 04/24/2023 9:36 AM MOUNTER SMOKING PIPE 04/24/2023 9:46 AM MOUNTER SMOKING PIPE Hilary Barnhart M.D. LAB BLOOD ADD-ON Performing Organization Address [facility] de Phone Number [address] [address], [facility] in [address] [address] * Bacteria / Ronda Culture, Blood #2 (04/20/2023 12:50 PM MOUNTER SMOKING PIPE) Only the most recent of10 resultswithin the time period is included. Bacteria/Mariola da Culture, Blood No growth after 5 day/s of incubation. 04/25/2023 1:05 PM MOUNTER SMOKING PIPE [facility] Blood (Blood, Peripheral Draw) 04/20/2023 12:50 PM MOUNTER SMOKING PIPE 04/20/2023 12:55 PM MOUNTER SMOKING PIPE Comment:Specimen Source Site : Blood Leila Jo M.D. LAB MICROBIOLOGY - G ENERAL ORDERABLES Performing Organization Address [facility] Co de Phone Number [address] [address], [facility] in [address] [address] * Lactate (04/18/2023 4:33 PM MOUNTER SMOKING PIPE) Only the most recent of3 resultswithin the time period is included. Pathologist [facility] Lactate, P 0.9 0.5 - 2.2 mmol/L 04/18/2023 7:09 PM MOUNTER SMOKING PIPE [facility] Blood (Blood, Venous) 04/18/2023 4:33 PM MOUNTER SMOKING PIPE 04/18/2023 7:09 PM MOUNTER SMOKING PIPE Leila Jo M.D. LAB BLOOD NON ADD-ON Performing Organization Address [facility]/ZIP Co de Phone Number [facility] [address] [place] [address], [facility] [address] * SARS Coronavirus 2, PCR Rapid Symptomatic (04/18/2023 3:25 PM MOUNTER SMOKING PIPE) Only the most recent of2 resultswithin the time period is included. [facility] SARS CoV-2, PCR, Rapid, V Undetected Undetected 04/18/2023 3:58 PM MOUNTER SMOKING PIPE [facility] Comment: ----ADDITIONAL INFORMATION---- This RT-PCR test was performed using the [employer]a SARS-CoV-2 and Influenza A/B Reagent assay from [employer], which has received Emergency Use Authorization(EUA) by the U.S. Food and Drug Administration. Fact sheets for this Emergency Use Authorization (EUA) assay can be found at the following links: For Healthcare Providers: https://www.fda.gov/media/176092/download For Patients: https://www.fda.gov/media/360749/download SARS Coronavirus 2, Source, Rapid Swab, Nasopharynx 04/18/2023 3:38 PM MOUNTER SMOKING PIPE [facility] Swab (Nasopharynx) 04/18/2023 3:25 PM MOUNTER SMOKING PIPE 04/18/2023 3:38 PM MOUNTER SMOKING PIPE Leila Jo M.D. LAB MICROBIOLOGY - G ENERAL ORDERABLES [facility] [address] [place] [address], [facility] in [address] [address] * Influenza A/B and RSV, PCR, Point of Care (04/18/2023 3:25 PM MOUNTER SMOKING PIPE) Influenza A, POCT Negative Negative 04/18/2023 3:40 PM MOUNTER SMOKING PIPE [facility] Influenza B, POCT Negative Negative 04/18/2023 3:40 PM MOUNTER SMOKING PIPE [facility] Resp Syncytial Virus, POCT Negative Negative 04/18/2023 3:40 PM MOUNTER SMOKING PIPE [facility] Swab (Nasopharynx) 04/18/2023 3:25 PM MOUNTER SMOKING PIPE 04/18/2023 3:38 PM MOUNTER SMOKING PIPE Leila Jo M.D. LAB POCT ORDERABLES - DEVICE Performing Organization Address City/State/[facility] Co de Phone Number [facility] [address] [place] [address], [facility] in [address] [address] * CT Abdomen Pelvis with IV Contrast (04/18/2023 2:12 PM MOUNTER SMOKING PIPE) Anatomical Region Laterality Modality Abdomen, Pelvis, Abdominal R ST LOS, Abdominal ARZ LOS, Abdominal FLA LOS N/A Computed Tomography 04/18/2023 2:08 PM MOUNTER SMOKING PIPE Impressions 04/18/2023 4:14 PM MOUNTER SMOKING PIPE 1. Limited/incomplete CT imaging of lateral right [...] kidneys and pancreas. Narrative 04/18/2023 4:14 PM MOUNTER SMOKING PIPE EXAM: CT ABDOMEN PELVIS WITH IV CONTRAST [...] the lateral right abdomen not included within [id number]. Within this limitation, no evidence of bowel [...] of the lateral rightabdomen not included within [id number]. Within this limitation, noevidence of bowel obstruction, [...] findings of the kidneys and pancreas. Leila GROSS CT PROCEDURES * Lactate for Sepsis with Reflex (04/18/2023 12:29 PM MOUNTER SMOKING PIPE) Lactate, P 0.9 0.5 - 2.2 mmol/L 04/18/2023 4:21 PM MOUNTER SMOKING PIPE [facility] Blood (Blood, Venous) 04/18/2023 12:29 PM MOUNTER SMOKING PIPE 04/18/2023 12:37 PM MOUNTER SMOKING PIPE Leila Jo M.D. LAB BLOOD NON ADD-ON [facility] [address] [place] [address], [facility] [place] [address] [place] [address] * (ABNORMAL) Susceptibility, Anaerobic, JEANCARLOS (04/18/2023 12:29 PM MOUNTER SMOKING PIPE) Susceptibility , Anaerobic, JEANCARLOS CLOSTRIDIUM SEPTICUM(A) 04/26/2023 2:09 PM MOUNTER SMOKING PIPE DTL Comment:Organism identified by client. Blood, Peripheral Draw 04/18/2023 12:29 PM MOUNTER SMOKING PIPE 04/21/2023 11:27 AM MOUNTER SMOKING PIPE Comment:Specimen Source Site : Blood Narrative [facility] - 04/26/2023 2:09 PM MOUNTER SMOKING PIPE CLOSEP Organism Antibiotic Method Susceptibility Clostridium septicum [...] M.D. LAB MICROBIOLOGY - G ENERAL ORDERABLES [facility] [address] [place] [address], [place] DTL [facility] [address] * ECG 12 Lead (04/15/2023 9:35 AM MOUNTER SMOKING PIPE) Only the most recent of8 resultswithin the time period is included. Ventricular Rate ECG/Min 66 BPM MUSE NH Interval 304 ms MUSE QRSD Interval 102 ms MUSE QT Interval 406 ms MUSE QTC Interval 425 ms MUSE P Savage 23 degrees MUSE R Savage 20 degrees MUSE T Wave Savage 75 degrees MUSE 04/15/2023 9:35 AM MOUNTER SMOKING PIPE 04/15/2023 10:24 AM MOUNTER SMOKING PIPE Impressions MUSE - 04/15/2023 10:24 AM MOUNTER SMOKING PIPE Sinus rhythm with 1st degree A-V block [...] * (ABNORMAL) Morphology Evaluation (04/15/2023 5:56 AM MOUNTER SMOKING PIPE) Only the most recent of6 resultswithin the time period is included. Pathologist [facility] RBC Morphology See Specific Findings 04/15/2023 6:31 AM MOUNTER SMOKING PIPE [facility] PLT Morphology Normal 04/15/2023 6:31 AM MOUNTER SMOKING PIPE [facility] PLT Estimate Adequate Adequate 04/15/2023 6:31 AM MOUNTER SMOKING PIPE [facility] Anisocytosis Slight(A) 04/15/2023 6:31 AM [employer]MO[employer] PIPE [facility] Elliptocytes Slight(A) Not Seen 04/15/2023 6:31 AM [employer] SMO[employer] PIPE [facility] Blood 04/15/2023 5:56 AM MOUN[employer] SMOKING PIPE 04/15/2023 6:08 AM MOUN[employer] SMOKING PIPE Florencio Smith D.O. LAB BLOOD ADD-ON [facility] [address] [place] [address], [facility] in [address] [address] * (ABNORMAL) Bacterial Culture, Aerobic + Susceptibility, Urine (04/12/2023 8:52 PM MOUNTER SMOKING PIPE) Only the most recent of9 resultswithin the time period is included. Urine Culture ESCHERICHIA COLI >100,000 cfu/mL (A) 04/15/2023 7:30 AM MOUNTER SMOKING PIPE [facility] Urine (Urine, Midstream) 04/12/2023 8:52 PM MOUNTER SMOKING PIPE 04/13/2023 2:02 PM MOUNTER SMOKING PIPE Comment:Specimen Source Site : Urine Narrative Organism [...] OGY - GENERAL ORDERABLES Performing Organization Address [facility]/ZIP Co de Phone Number [facility] [address] [place] [address], [facility] MKTO [facility] in [place] [address] [place] [address] * (ABNORMAL) CBC without Differential (04/08/2023 5:52 AM MOUNTER SMOKING PIPE) Only the most recent of15 resultswithin the time period is included. Hemoglobin 8.7(L) 13.2 - 16.6 g/dL 04/08/2023 6:32 AM [employer] SMOKING PIPE [facility] Hematocrit 29.8(L) 38.3 - 48.6 % 04/08/2023 6:32 AM M[employer] SMOKING PIPE [facility] Erythrocytes 3.81(L) 4.35 - 5.65 x10(12)/L 04/08/2023 6:32 AM M[employer] SMOKING PIPE [facility] MCV 78.2 78.2 - 97.9 fL 04/08/2023 6:32 AM MOUN[employer] SMOKING PIPE [facility] RBC Distrib Width 24.5(H) 11.8 - 14.5 % 04/08/2023 6:32 AM M[employer] SMOKING PIPE [facility] Platelet Count 245 135 - 317 x10(9)/L 04/08/2023 6:32 AM M[employer] SMOKING PIPE [facility] Leukocytes 5.9 3.4 - 9.6 x10(9)/L 04/08/2023 6:32 AM MOUNTER SMOKING PIPE [facility] Blood (Blood, Venous) 04/08/2023 5:52 AM M[employer] SMOKING PIPE 04/08/2023 6:18 AM MOUNTER SMOKING PIPE Carter Steiner M.D. LAB BLOOD ADD-ON Performing Organization Address City/[facility]/ZIP Co de Phone Number [facility] [address] [place] [address], [facility] in [address] [address] * (ABNORMAL) CRP (C-Reactive Protein) (04/07/2023 6:08 AM MOUNTER SMOKING PIPE) Only the most recent of2 resultswithin the time period is included. C-Reactive Protein (CRP), P 18.9(H) <5.0 mg/L 04/07/2023 8:42 AM MOUNTER SMOKING PIPE CA Blood (Blood, Venous) 04/07/2023 6:08 AM MOUNTER SMOKING PIPE 04/07/2023 8:04 AM MOUNTER SMOKING PIPE Carter Steiner M.D. LAB BLOOD ADD-ON [facility] [address] [place] [address], [facility] in [address] [address] * (ABNORMAL) Iron and Total Iron-Binding Capacity (03/28/2023 6:01 AM MOUNTER SMOKING PIPE) Only the most recent of2 resultswithin the time period is included. Pathologist [facility] Iron 26(L) 50 - 150 mcg/dL 03/28/2023 2:44 PM MOUNTER SMOKING PIPE [facility] Total Iron Binding Capacity 251 250 - 400 mcg/dL 03/28/2023 2:44 PM MOUNTER SMOKING PIPE [facility] Percent Saturation 10(L) 14 - 50 % 03/28/2023 2:44 PM MOUNTER SMOKING PIPE [facility] Blood (Blood, Venous) 03/28/2023 6:01 AM MOUNTER SMOKING PIPE 03/28/2023 2:15 PM MOUNTER SMOKING PIPE Leila Jo M.D. LAB BLOOD ADD-ON [facility] [address] [place] [address], [facility] in [place] [address] [place] [address] * (ABNORMAL) Hemoglobin (03/26/2023 6:19 AM MOUNTER SMOKING PIPE) Only the most recent of15 resultswithin the time period is included. Hemoglobin 8.1(L) 13.2 - 16.6 g/dL 03/26/2023 7:37 AM MOUNTER SMOKING PIPE [facility] Blood (Blood, Venous) 03/26/2023 6:19 AM MOUNTER SMOKING PIPE 03/26/2023 7:03 AM MOUNTER SMOKING PIPE Florencio Smith D.O. LAB BLOOD ADD-ON [facility] [address] [place] [address], [facility] in [address] [address] * (ABNORMAL) BMP (Basic Metabolic Panel), POCT (03/24/2023 6:26 AM MOUNTER SMOKING PIPE) BUN (Blood Urea Nitrogen), POCT, B 30(H) 8 - 24 mg/dL 03/24/2023 6:26 AM M[employer]TER SMOKING PIPE [facility] Chloride, POCT, B 101 98 - 107 mmol/L 03/24/2023 6:26 AM [employer]MO[employer] PIPE [facility] Creatinine, POCT, B 1.5(H) 0.7 - 1.4 mg/dL 03/24/2023 6:26 AM M[employer] SMOKING PIPE [facility] Comment: ----ADDITIONAL INFORMATION---- Performed at the Point of Care Estimated GFR (eGFR), POCT 50(L) >=60 mL/min/BSA 03/24/2023 6:28 AM M[employer] SMOKING PIPE [facility] Comment: Estimated GFR calculated using the 2020 CKD_EPI creatinine equation. Glucose, POCT, B 142(H) 70 - 140 mg/dL 03/24/2023 6:26 AM MOUNTER SMOKING PIPE [facility] Calcium, Ionized, POCT, B 4.80 4.65 - 5.30 mg/dL 03/24/2023 6:26 AM [employer]MO[employer] P[employer] [facility] Potassium, POCT, B 3.9 3.6 - 5.2 mmol/L 03/24/2023 6:26 AM M[employer] SMO[employer] PIPE [facility] Sodium, POCT, B 138 135 - 145 mmol/L 03/24/2023 6:26 AM [employer]MO[employer] [facility] Total CO2, POCT, B 27 22 - 29 mmol/L 03/24/2023 6:26 AM [employer]MO[employer] P[employer] [facility] Anion Gap, POCT, B 10 7 - 15 03/24/2023 6:26 AM [employer] SMOKING PIPE [facility] Blood 03/24/2023 6:26 AM M[employer] SMOKING PIPE 03/24/2023 6:28 AM MOUNTER SMOKING PIPE Generic Rals LAB POCT ORDERABLES - DEVICE [facility] [address] [place] [address], [facility] in [place] [address] [place] [address] * Transfuse Red Blood Cells : (03/21/2023 6:51 PM MOUNTER SMOKING PIPE) Only the most recent of2 resultswithin the time period is included. Leila Jo M.D. BLOOD TRANSFUSION OR DERABLES * Testing Location (03/21/2023 12:29 PM MOUNTER SMOKING PIPE) Testing Location [facility] DEFAULT 03/21/2023 12:48 PM MOUNTER SMO[employer] PIPE [facility] Blood 03/21/2023 12:2 9 PM M[employer] SMO[employer] PIPE 03/21/2023 12:47 PM MOUNTER SMOKING PIPE Leila Jo M.D. LAB BLOOD BANK TEST ORDERABLES Performing Organization Address City/[facility]/ZIP Co de Phone Number [facility] [address] [place] [address], [place] [address] * (ABNORMAL) Prealbumin (PAB) (03/21/2023 6:09 AM MOUNTER SMOKING PIPE) Prealbumin 15(L) 19 - 38 mg/dL 03/21/2023 2:34 PM [employer] SMOKING PIPE [facility] Blood (Blood, Venous) 03/21/2023 6:09 AM MOUNTER SMOKING PIPE 03/21/2023 2:08 PM MOUNTER SMOKING PIPE Leila Jo M.D. LAB BLOOD ADD-ON [facility] [address] [place] [address], [address] [place] [address] * (ABNORMAL) Albumin (03/21/2023 6:09 AM MOUNTER SMOKING PIPE) Only the most recent of2 resultswithin the time period is included. Albumin, P 3.2(L) 3.5 - 5.0 g/dL 03/21/2023 7:43 AM M[employer]TER SMOKING PIPE [facility] Blood (Blood, Venous) 03/21/2023 6:09 AM MOUNTER SMOKING PIPE 03/21/2023 7:29 AM MOUNTER SMOKING PIPE Leila Jo M.D. LAB BLOOD ADD-ON Performing Organization Address City/[facility]/ZIP Co de Phone Number [facility] [address] [place] [address], [facility] in [address] [address] * Leg, right-Nursing Image Exam (03/14/2023 11:50 AM MOUNTER SMOKING PIPE) Only the most recent of2 resultswithin the time period is included. 03/14/2023 11:4 8 AM MOUNTER SMOKING PIPE Narrative IIMS - 03/14/2023 11:50 AM MOUNTER SMOKING PIPE This order has been created and auto-finalized to support the import of images acquired without order. The clinical documentation to support these images can be found on the encounter that produced images. Provider Not In System IMG NON RAD IMAGI NG PROCEDURES Performing Organization Address [facility] Co de Phone Number IIMS NA * Leg-Emergency Department Image Exam (03/08/2023 2:50 PM MOUNTER SMOKING PIPE) 03/08/2023 2:49 PM MOUNTER SMOKING PIPE Narrative IIMS - 03/08/2023 2:52 PM MOUNTER SMOKING PIPE This order has been created and auto-finalized to support the import of images acquired without order. The clinical documentation to support these images can be found on the encounter that produced images. Provider Not In System IMG NON RAD IMAGI NG PROCEDURES Performing Organization Address City/[facility]/ZIP Co de Phone Number IIMS NA * Back-Family Medicine Image Exam (02/25/2023 11:08 AM MOUNTER SMOKING PIPE) Only the most recent of2 resultswithin the time period is included. 02/25/2023 11:0 6 AM MOUNTER SMOKING PIPE Narrative IIMS - 02/25/2023 11:08 AM MOUNTER SMOKING PIPE This order has been created and auto-finalized to support the import of images acquired without order. The clinical documentation to support these images can be found on the encounter that produced images. Provider Not In System IMG NON RAD IMAGI NG PROCEDURES IIMS NA * IR Lumbar Spine Facet Injection Right (02/25/2023 10:48 AM MOUNTER SMOKING PIPE) Only the most recent of2 resultswithin the time period is included. Anatomical Region Laterality Modality Lumbar Spine, Neuro Interven tional RST LOS, Neuroradiology ARZ LOS, Neuro Interventional FLA LOS Right X -Ray Angiography 02/25/2023 10:5 2 AM MOUNTER SMOKING PIPE Impressions 02/25/2023 11:18 AM MOUNTER SMOKING PIPE 1. Fluoroscopically-guided right L4-L5 transforaminal epidural steroid injection was performed. 2. Left sided injection was not performed due to significant patient discomfort with procedural positioning and difficulty repositioning the patient. NR Narrative 02/25/2023 11:18 AM MOUNTER SMOKING PIPE EXAM: IR LUMBAR SPINE FACET INJECTION RIGHT; [...] Electrolyte (Chem 4) Panel (02/24/2023 5:44 AM MOUNTER SMOKING PIPE) Only the most recent of4 resultswithin the time period is included. Potassium, P 4.0 3.6 - 5.2 mmol/L 02/24/2023 6:47 AM MOUNTER SMOKING PIPE DTL Sodium, P 139 135 - 145 mmol/L 02/24/2023 6:47 AM MOUNTER SMOKING PIPE DTL Chloride, P 105 98 - 107 mmol/L 02/24/2023 6:47 AM MOUNTER SMOKING PIPE DTL Bicarbonate, P 24 22 - 29 mmol/L 02/24/2023 6:47 AM MOUNTER SMOKING PIPE DTL Anion Gap, P 10 7 - 15 02/24/2023 6:47 AM MOUNTER SMOKING PIPE DTL Blood (Blood, Venous) 02/24/2023 5:44 AM MOUNTER SMOKING PIPE 02/24/2023 6:12 AM MOUNTER SMOKING PIPE Maisha Ny M.D. LAB BLOOD ADD-ON [facility] [address] [place] [address], [facility] [address] [place] [address] * Vancomycin, Trough (02/23/2023 6:28 PM MOUNTER SMOKING PIPE) Vancomycin, Trough, S 19.8 10.0 - 20.0 mcg/mL 02/23/2023 8:21 PM MOUNTER SMOKING PIPE DTL Blood (Blood, Venous) 02/23/2023 6:28 PM MOUNTER SMOKING PIPE 02/23/2023 7:03 PM MOUNTER SMOKING PIPE Montserrat Gilbert M.D. LAB BLOOD NON ADD- ON [facility] [address] [place] [address], [facility] DTL [facility] [address] [place] [address] * PET CT Skull to Thigh FDG (02/22/2023 12:21 PM MOUNTER SMOKING PIPE) Anatomical Region Laterality Modality Body, Nuclear Medicine PET R ST LOS, PET ARZ LOS, Nuclear Medicine PET FLA LOS, Nuclear Medicine N/A Positron Emission Tomography (PET), Positron Emission Tomography (PET) 02/22/2023 1:12 PM MOUNTER SMOKING PIPE Impressions 02/22/2023 1:32 PM MOUNTER SMOKING PIPE 1. Markedly FDG avid mass in the ascending colon, consistent with the primary colonic neoplasm. 2. No definite abnormal FDG uptake that could correspond with the known sigmoid neoplasm. 3. At least three right paracolic lymph nodes, worrisome for metastases. 4. No FDG avid distant metastatic disease. Narrative 02/22/2023 1:32 PM MOUNTER SMOKING PIPE EXAM: ??PET CT SKULL TO THIGH FDG Serum glucose at time of F-18 FDG injection was 121 mg/dL. Patient followed standard dietary/fasting requirements for this exam. RADIOPHARMACEUTICAL/MEDS: Route: intravenous fludeoxyglucose F 18 injection MCFP (FDG F-18),8.02 millicurie TECHNIQUE: ??F-18 FDG PET/CT [...] RADIOPHARMACEUTICAL/MEDS: Route: intravenous fludeoxyglucose F 18 injection MCFP (FDG F-18),8.02 millicurie TECHNIQUE: F-18 FDG PET/CT [...] avid distant metastatic disease. Radha Saba M.D. [facility] [place] PROCEDURES * (ABNORMAL) SPSMA Result (02/21/2023 4:34 PM MOUNTER SMOKING PIPE) Only the most recent of2 resultswithin the time period is included. Neutrophilic Segs and Bands 65 50 - 75 % 02/21/2023 5:51 PM MOUNTER SMOKING PIPE DH[facility] Lymphocytes 21 18 - 42 % 02/21/2023 5:51 PM MOUNTER SMOKING PIPE DH[facility] Monocytes 6 2 - 11 % 02/21/2023 5:51 PM MOUNTER SMOKING PIPE [facility] Eosinophils 7(H) 1 - 3 % 02/21/2023 5:51 PM MOUNTER SMOKING PIPE [facility] Basophils 1 0 - 2 % 02/21/2023 5:51 PM MOUNTER SMOKING PIPE DHPM Manual Absolute Neutrophil Count 3.51 1.56 - 6.45 x10(9)/L 02/21/2023 5:51 PM MOUNTER SMOKING PIPE [facility] Comment: ----ADDITIONAL INFORMATION---- The manual absolute neutrophil count is derived from a manual differential count and therefore is not exactly comparable to the automated absolute neutrophil count. Interpretation See Comment 5:51 PM MOUNTER SMOKING PIPE DHPM Comment: No morphologic features of hemolysis are seen. Hypochromic microcytic red blood cells are present: consider iron deficiency anemia. Reviewed by: Dev 02/21/2023 5:51 PM MOUNTER SMOKING PIPE DH[facility] Blood 02/21/2023 4:34 PM MOUNTER SMOKING PIPE 02/21/2023 4:49 PM MOUNTER SMOKING PIPE Yaquelin Juares M.D. LAB BLOOD ADD-ON [facility] [address] [place] [address], [facility] [address] [place] [address] * MR Cervical Spine without IV Contrast (02/21/2023 3:05 PM MOUNTER SMOKING PIPE) Anatomical Region Laterality Modality Spine, Cervical Spine, Neuro radiology RST LOS, Neuroradiology ARZ [facility], Neuroradiology FLA LOS N/A Magneti c Resonance 02/21/2023 3:14 PM MOUNTER SMOKING PIPE Impressions 02/22/2023 8:23 AM MOUNTER SMOKING PIPE Noncontrasted MR imaging of the cervical spine [...] neural foraminal stenosis. Narrative 02/22/2023 8:23 AM MOUNTER SMOKING PIPE EXAM: MR CERVICAL SPINE WITHOUT IV CONTRAST [...] Angiogram with IV Contrast (02/21/2023 12:26 PM MOUNTER SMOKING PIPE) Anatomical Region Laterality Modality Abdomen, Pelvis, Cardiovascu lar RST LOS, Abdominal ARZ LOS, Vascular Interventional ARZ LOS, Abdominal FLA LOS, Vascular Interventional FLA LOS, Procedural N/A Computed Tomography, Compute d Tomography 02/21/2023 12:1 4 PM MOUNTER SMOKING PIPE Impressions 02/21/2023 1:37 PM MOUNTER SMOKING PIPE 1. No active gastrointestinal bleeding identified. 2. Primary colonic adenocarcinoma of the ascending colon with mild interval increase in mural thickness. 3. Interval passage of endoscopic clips from the sigmoid colon. 4. Decreased size of pelvic retroperitoneal lymphadenopathy 5. Remainder not significantly changed. Narrative 02/21/2023 1:37 PM MOUNTER SMOKING PIPE EXAM: ??CT ABDOMEN PELVIS ANGIOGRAM WITH IV CONTRAST Including 3D image post-processing. COMPARISON: ??CT abdomen and pelvis with IV contrast from an outside institution dated 02/01/2023 and reinterpreted at [facility] on 02/07/2023. FINDINGS: VASCULAR FINDINGS: No active [...] (series 7, image 241), previously 16 mm ([id number] screen captures in series 1000). No pneumatosis, [...] (series 7, image 462), previously 24 mm ([id number] screen captures in series 1000). Similar mildly [...] Spine with IV Contrast (02/21/2023 12:26 PM MOUNTER SMOKING PIPE) Anatomical Region Laterality Modality Lumbar Spine, Neuroradiology RST LOS, Neuroradiology ARZ HEATHER, [facility] N[facility]A Computed Tomography, Compute d Tomography 02/21/2023 12:2 9 PM MOUNTER SMOKING PIPE Impressions 02/21/2023 12:37 PM MOUNTER SMOKING PIPE 1. Multilevel lumbar spondylotic changes as described, seen in greater detail on MRI of 02/20/2023. Multilevel spinal canal narrowing is most prominent at L3-4 and L4-5 where it is advanced. 2. Multilevel neural foraminal narrowing, most prominent at L5-S1 where it is advanced bilaterally. Narrative 02/21/2023 12:37 PM MOUNTER SMOKING PIPE EXAM: CT LUMBAR SPINE WITH IV CONTRAST [...] (ABNORMAL) LD (Lactate Dehydrogenase) (02/21/2023 9:27 AM MOUNTER SMOKING PIPE) [facility] Nila LD 251(H) 122 - 222 U/L 02/21/2023 11:37 AM MOUNTER SMOKING PIPE DTL Blood (Blood, Venous) 02/21/2023 9:27 AM MOUNTER SMOKING PIPE 02/21/2023 9:56 AM MOUNTER SMOKING PIPE Yaquelin Juares M.D. LAB BLOOD NON AD D-ON [facility] [employer] [facility] [address] [place] [address], [facility] [address] [place] [address] * (ABNORMAL) Haptoglobin (02/21/2023 9:27 AM MOUNTER SMOKING PIPE) Haptoglobin, S 324(H) 30 - 200 mg/dL 02/22/2023 9:18 AM MOUNTER SMOKING PIPE [facility] Blood (Blood, Venous) 02/21/2023 9:27 AM MOUNTER SMOKING PIPE 02/21/2023 1:16 PM MOUNTER SMOKING PIPE Yaquelin Juares M.D. LAB BLOOD ADD-ON Performing Organization Address City/[facility]/ZIP Co de Phone Number [facility] [address] [place] [address] [facility] [address] [place] [address] * Bilirubin, Direct (02/21/2023 9:27 AM MOUNTER SMOKING PIPE) Only the most recent of2 resultswithin the time period is included. Bilirubin, Direct, S <0.2 0.0 - 0.3 mg/dL 02/21/2023 10:34 AM MOUNTER SMOKING PIPE [facility] Blood (Blood, Venous) 02/21/2023 9:27 AM MOUNTER SMOKING PIPE 02/21/2023 9:43 AM MOUNTER SMOKING PIPE Yaquelin Juares M.D. LAB BLOOD ADD-ON Performing Organization Address City/[facility]/ZIP Co de Phone Number [facility] [address] [place] [address], [facility] [address] [place] [address] * Bilirubin, Total (02/21/2023 9:27 AM MOUNTER SMOKING PIPE) Bilirubin, Total, P 0.4 0.0 - 1.2 mg/dL 02/21/2023 9:53 AM MOUNTER SMOKING PIPE [facility] Blood (Blood, Venous) 02/21/2023 9:27 AM MOUNTER SMOKING PIPE 02/21/2023 9:39 AM MOUNTER SMOKING PIPE Yaquelin Juares M.D. LAB BLOOD ADD-ON [facility] [address] [place] [address], [facility] [address] [place] [address] * DX Lumbar Spine 2-3 Views (02/20/2023 6:25 PM MOUNTER SMOKING PIPE) Anatomical Region Laterality Modality Lumbar Spine, Musculoskeleta l RST LOS, Neuroradiology ARZ LOS, Muskuloskeletal FLA LOS N/A Digital Radiography 02/20/2023 6:27 PM MOUNTER SMOKING PIPE Impressions 02/20/2023 6:34 PM MOUNTER SMOKING PIPE Evaluation of the lateral views is significantly limited by patient positioning and consequent overlap of osseous structures. Within these limitations, no obvious acute fractures or traumatic malalignment is identified. There is moderate lumbar spondylosis characterized by facet arthropathy and hypertrophic degenerative changes of the endplates. Leftward convex lumbar curvature. Narrative 02/20/2023 6:34 PM MOUNTER SMOKING PIPE EXAM: ??DX LUMBAR SPINE 2-3 VIEWS Procedure [...] B, RSV, PCR, Rapid (02/20/2023 4:11 PM MOUNTER SMOKING PIPE) Influenza A, PCR, Rapid, V Negative Negative 02/20/2023 4:47 PM MOUNTER SMOKING PIPE [facility] Influenza B, PCR, Rapid, V Negative Negative 02/20/2023 4:47 PM MOUNTER SMOKING PIPE [facility] Resp Synctial Virus, PCR, Rapid Negative Negative 02/20/2023 4:47 PM MOUNTER SMOKING PIPE [facility] Specimen Source Swab, Nasopharynx 02/20/2023 4:47 PM MOUNTER SMOKING PIPE [facility] Swab (Nasopharynx) 02/20/2023 4:11 PM MOUNTER SMOKING PIPE 02/20/2023 4:15 PM MOUNTER SMOKING PIPE [employer] Kacie Gilbert M.D. LAB MICROBIOLOGY - GENERAL ORDERABLES [facility] [address] [place] [address], [facility] [address] [place] [address] * MR Lumbar Spine without IV Contrast (02/20/2023 10:42 AM MOUNTER SMOKING PIPE) Only the most recent of2 resultswithin the time period is included. Anatomical Region Laterality Modality Lumbar Spine, Neuroradiology RST LOS, Neuroradiology ARZ LOS, Neuroradiology FLA LOS N/A Magnetic Resonance 02/20/2023 11:0 7 AM MOUNTER SMOKING PIPE Impressions 02/20/2023 12:12 PM MOUNTER SMOKING PIPE 1. Again demonstrated is a large right [...] bilaterally at L5-S1. Narrative 02/20/2023 12:12 PM MOUNTER SMOKING PIPE EXAM: MR LUMBAR SPINE WITHOUT IV CONTRAST [...] overlying the lumbar spine. Ligamentum flavum hypertrophy [id number] level penetrating to at least mild/moderate canal [...] at L4-L5 and bilaterally at L5-S1. Dada GROSS MRI PROCEDURES * [facility] Internal Medicine Image Exam (02/20/2023 6:38 AM [facility]) 02/20/2023 7:36 AM [facility] Narrative IIMS - 02/20/2023 6:38 AM [facility] This order has been created and auto-finalized to support the import of images acquired without order. The clinical documentation to support these images can be found on the encounter that produced images. Provider Not In System IMG NON RAD IMAGI NG PROCEDURES Performing Organization Address City/[facility] Co de Phone Number IIMS NA * Dipstick, Urine (02/20/2023 6:05 AM MOUNTER SMOKING PIPE) Only the most recent of5 resultswithin the time period is included. Hemoglobin, QL, U Negative Negative 02/20/2023 7:37 AM MOUNTER SMOKING PIPE DTL Leukocyte Esterase, U Negative Negative 02/20/2023 7:37 AM MOUNTER SMOKING PIPE DTL Nitrite, U Negative Negative 02/20/2023 7:37 AM MOUNTER SMOKING PIPE DTL Ketone, U Negative Negative mg/dL 02/20/2023 7:37 AM MOUNTER SMOKING PIPE DTL Glucose, U Negative Negative mg/dL 02/20/2023 7:37 AM MOUNTER SMOKING PIPE DTL Urine 02/20/2023 6:05 AM MOUNTER SMOKING PIPE 02/20/2023 6:39 AM MOUNTER SMOKING PIPE Peter Alva M.D., M.S. LAB URINE ORD ERABLES Performing Organization Address [facility] Co de Phone Number [facility] [address] [place] [address], [facility] DTL [facility] [address] [place] [address] * (ABNORMAL) Microscopic Manual (02/20/2023 6:05 AM MOUNTER SMOKING PIPE) Only the most recent of6 resultswithin the time period is included. Microscopy Abnormal 02/20/2023 7:55 AM MOUNTER SMOKING PIPE DTL RBC <3 <3 /hpf 02/20/2023 7:55 AM MOUNTER SMOKING PIPE DTL Casts, Hyaline Occas /lpf 02/20/2023 7:55 AM MOUNTER SMOKING PIPE DTL Casts, Granular Occas(A) /lpf 7:55 AM MOUNTER SMOKING PIPE DTL Urine 02/20/2023 6:05 AM MOUNTER SMOKING PIPE 02/20/2023 7:37 AM MOUNTER SMOKING PIPE Peter Alva M.D., M.S. LAB URINE ORD ERABLES Performing Organization Address City/[facility] Co de Phone Number [facility] [address] [place] [address] * pH, Urine (02/20/2023 6:05 AM MOUNTER SMOKING PIPE) Only the most recent of3 resultswithin the time period is included. pH, U 5.4 4.5 - 8.0 02/20/2023 7:0 9 AM MOUNTER SMOKING PIPE DTL Urine 02/20/2023 6:05 AM MOUNTER SMOKING PIPE 02/20/2023 6:39 AM MOUNTER SMOKING PIPE Peter Alva M.D., M.S. LAB URINE ORD ERABLES [facility] [address] [place] [address] * Osmolality, Urine (02/20/2023 6:05 AM MOUNTER SMOKING PIPE) Only the most recent of3 resultswithin the time period is included. Pathologist [facility] Osmolality, U 726 150 - 1150 mOsm/kg 02/20/2023 7:09 AM MOUNTER SMOKING PIPE DT Urine 02/20/2023 6:05 AM MOUNTER SMOKING PIPE 02/20/2023 6:39 AM MOUNTER SMOKING PIPE Peter Alva M.D., M.S. LAB URINE ORD ERABLES [facility] 200 [place] [address] * S-TSH (Thyroid-Stimulating Hormone - Sensitive) (02/20/2023 2:34 AM MOUNTER SMOKING PIPE) TSH, Sensitive 0.9 0.3 - 4.2 mIU/L 02/20/2023 4:20 AM MOUNTER SMOKING PIPE DT Blood (Blood, Venous) 02/20/2023 2:34 AM MOUNTER SMOKING PIPE 02/20/2023 2:54 AM MOUNTER SMOKING PIPE Peter Alva M.D., M.S. LAB BLOOD ADD -ON [facility] [address] 200 [place] [address] * (ABNORMAL) Glucose, Fasting (02/18/2023 7:34 AM CDT) Only the most recent of2 resultswithin the time period is included. Glucose, P 154(H) 70 - 100 mg/dL 02/18/2023 8:32 AM CDT DTL Last Intake 13 hr 02/18/2023 8:18 AM CDT DTL Blood (Blood, Venous) 02/18/2023 7:34 AM CDT 02/18/2023 8:18 AM CDT Dave Mckeon M.D. LAB BLOOD NON ADD -ON Performing Organization Address City/[facility]/ZIP Co de Phone Number [facility] [address] 200 [place] [address] * (ABNORMAL) Ferritin (02/18/2023 7:34 AM CDT) Only the most recent of2 resultswithin the time period is included. Ferritin, S 21(L) 31 - 409 mcg/L 02/18/2023 8:48 AM CDT DTL Blood (Blood, Venous) 02/18/2023 7:34 AM CDT 02/18/2023 8:18 AM CDT Peter Greenberg M.D. LAB BLOOD ADD-ON [facility] [address] [facility] 200 [place] [address] * CEA (Carcinoembryonic Antigen) (02/18/2023 7:33 AM CDT) Carcinoembryonic Ag (CEA), S 2.9 ng/mL 02/18/2023 2:53 PM CDT [facility] Comment: ----REFERENCE VALUE---- <=3.0 (Non-smokers) Some smokers may have elevated CEA, usually <5.0. ----ADDITIONAL INFORMATION---- The testing method is an immunoenzymatic assay manufactured by [employer]. and performed on the AirizuI 800. ? Values obtained with different assay methods or kits may be different and cannot be used interchangeably. ? Test results cannot be interpreted as absolute evidence for the presence or absence of malignant disease. Blood (Blood, Venous) 02/18/2023 7:33 AM CDT 02/18/2023 1:02 PM CDT Dave Mckeon M.D. LAB BLOOD ADD-ON [facility] [address] [place] [address] [facility] [address] [place] [address] * Interpretation of Outside CT Abdomen and [...] prior outside abdominal CT from 04/15/2021 and [facility] chest radiograph from 01/05/2022. FINDINGS: Several scattered small indeterminate solid noncalcified pulmonary nodules which were either not included in the [id number] were not clearly visible on prior abdominal [...] prior outside abdominal CT from 04/15/2021 and [facility] chest radiograph from01/05/2022. FINDINGS: Several scattered small indeterminate solid noncalcified pulmonary noduleswhich were either not included in the [id number] were not clearly visible on prior abdominalCTs. [...] requestedfor interpretation. Dave GROSS CT PROCEDURES * Pathology Review of Outside Material (01/31/2023 2:45 PM CDT) 02/24/2023 4:03 PM MOUNTER SMOKING PIPE DTL Participated in the Interpretation Candi Cantu M.D.-Pathology Fellow 02/24/2023 4:03 PM MOUNTER SMOKING PIPE DTL Report electronically signed by Bridgette Don M.D. I verify that I have examined all relevant slides/materials for the specimen(s) and rendered or confirmed the diagnosis. 02/24/2023 4:03 PM MOUNTER SMOKING PIPE DTL Material Received A. [id number]: Colon, ascending, transverse, descending, sigmoid ? 23 stained slides 02/24/2023 4:03 PM MOUNTER SMOKING PIPE DTL Interpretation FINAL DIAGNOSIS Colon, biopsy ([id number]; 01/31/2023): ? A. ??Colon, proximal, ascending, mass, biopsy: Invasive moderately differentiated adenocarcinoma. Immunohistochemis try for mismatch repair proteins was performed at an outside institution and reviewed at [facility]. ??The neoplastic cells revealed the following: MLH1: [...] made via digital imaging. 02/24/2023 4:03 PM MOUNTER SMOKING PIPE DTL Varies 01/31/2023 2:45 PM CDT 02/11/2023 10:24 AM CDT Dave Mckeon M.D. LAB SURG PATH ORD ERABLES Performing Organization Address [facility] Co de Phone Number [facility] [address] [place] [address], [facility] DT [address] [address] [address] [place] [address] * CT cervical spine wo con-Outside CT Neuro (12/31/2022 9:35 PM CDT) Only the most recent of4 resultswithin the time period is included. 12/31/2022 9:29 PM CDT Narrative [facility] - 01/01/2023 12:04 AM CDT This order [...] System IMG CT PROCEDURES Performing Organization Address [facility] de Phone Number I[facility] NA * XR INJ EPIDURAL INTERLAMINAR LUMBAR-Outside XA (11/30/2022 9:25 AM CDT) Narrative [facility] - 12/01/2022 2:59 PM CDT This order [...] RAD IMAGI NG PROCEDURES Performing Organization Address [facility] de Phone Number [facility] NA * MR SPINE LUMBAR WO-Outside MR Neuro (11/29/2022 4:30 AM CDT) Narrative [facility] - 12/01/2022 2:59 PM CDT This order [...] IMG MRI PROCEDURE S Performing Organization Address City/[facility]/ZIP Co de Phone Number [facility] NA * (ABNORMAL) Dipstick, POCT, Urine (11/27/2022 3:28 AM CDT) Only the most recent of2 resultswithin the time period is included. Glucose, POCT, U 100(A) Negative mg/dL 11/27/2022 3:30 AM CDT PCED Ketone, POCT, U Negative Negative mg/dL 11/27/2022 3:30 AM CDT PCED Specific Fossil, POCT, U 1.020 1.005 - 1.030 11/27/2022 [...] Unknown Provider LAB POCT ORDERABLES - DEVICE POC RST [facility] [address] [place] [address], [facility] PCED [facility] POC [address] [place] [address] * Microscopic Automated (11/27/2022 3:23 AM CDT) Only the most recent of3 resultswithin the time period is included. Microscopy Normal 11/27/2022 4:2 8 AM CDT DTL Urine 11/27/2022 3:23 AM CDT 11/27/2022 4:06 AM CDT Merlin Moffett M.D. LAB URINE ORDERABLES [facility] [address] [place] [address], [facility] [address] [place] [address] * (ABNORMAL) Creatinine with Estimated GFR (11/01/2022 6:42 AM CDT) Only the most recent of8 resultswithin the time period is included. Creatinine 1.49(H) 0.74 - 1.35 mg/dL 11/01/2022 7:08 AM CDT CNFL Estimated GFR (eGFR) 50(L) >=60 mL/min/BSA 11/01/2022 7:08 AM CDT CNMT Comment: Estimated GFR calculated using the 2020 CKD_EPI creatinine equation. Blood (Blood, Venous) 11/01/2022 6:42 AM CDT 11/01/2022 6:47 AM CDT William Briggs M.D. LAB BLOOD ADD-ON Performing Organization Address City/[facility]/ZIP Co de Phone Number [facility] [address] [place] [address], [facility] in [address] [address] * Phosphorus Inorganic (10/12/2022 6:53 AM CDT) Only the most recent of4 resultswithin the time period is included. Phosphorus (Inorganic), S 3.7 2.5 - 4.5 mg/dL 10/12/2022 8:07 AM CDT DTL Blood (Blood, Venous) 10/12/2022 6:53 AM CDT 10/12/2022 7:48 AM CDT Kandace Weaver APRN, C.N.P., M.S.N. LA B BLOOD ADD-ON [facility] [address] [place] [address], [facility] DTL [facility] [address] [place] [address] * (ABNORMAL) Renal Function Panel (10/11/2022 2:11 [...] 2:47 PM CDT Kandace Weaver APRN, C.N.P., M.SKeny REYES BLOOD ADD-ON [facility] 200 [place] [address], [facility] 200 [place] [address] * (ABNORMAL) HemoQuant, Feces (10/11/2022 1:21 PM CDT) Hemoglobin, Fecal 4.6(H) <=2 mg Hb/g 10/12/2022 1:51 PM CDT DT Comment: ----ADDITIONAL INFORMATION---- This test was developed and its performance characteristics determined by [facility] in a manner consistent with CLIA requirements. This test has not been cleared or approved by the U.S. Food and Drug Administration. Stool (Stool) 10/11/2022 1:2 1 PM CDT 10/11/2022 2:05 PM CDT Maria Elena Morris M.D., Ph.D. LAB BODY FL UIDS AND STOOLS ORDERABLES [facility] 200 [place] [address], [facility] [address] [address] * US Kidneys Bilateral with Bladder (10/11/2022 8:30 AM CDT) Anatomical Region Laterality Modality Abdomen, Renal, Ultrasound R ST LOS, Ultrasound ARZ LOS, Ultrasound FLA LOS Bilateral Ultrasound 10/11/2022 8:46 AM CDT Impressions 10/11/2022 8:56 AM CDT Atrophic [place] kidneys bilaterally. No hydronephrosis. Narrative 10/11/2022 8:56 [...] lower pole cyst. Bladder: Normal. IMPRESSION: Atrophic [place] kidneys bilaterally. No hydronephrosis. Kandace Weaver APRN, C.N.P., M.S.N. IM G US PROCEDURES * Methylmalonic Acid (MMA), Quantitative, Serum (10/08/2022 7:05 AM CDT) Methylmalonic Acid, QN, S 0.14 <=0.40 nmol/mL 10/12/2022 10:48 AM CDT DTL Comment: No cellular B-12 deficiency. ----ADDITIONAL INFORMATION---- This test was developed and its performance characteristics determined by [facility] in a manner consistent with CLIA requirements. This test has not been cleared or approved by the U.S. Food and Drug Administration. Blood 10/08/2022 7:05 AM CDT 10/08/2022 12:08 PM CDT Mady Melgoza P.A.-C. LAB BLOOD NON ADD-ON [facility] [address] [place] [address], [place] DTL [address] [place] [address] * Pernicious Anemia Niland (10/08/2022 7:05 AM CDT) Vitamin B12 Assay, S 362 180 - 914 ng/L 10/08/2022 12:08 PM CDT [facility] Comment:B-12 <400; MMA test was performed. Blood (Blood, Venous) 10/08/2022 7:05 AM CDT 10/08/2022 10:03 AM CDT Mady Melgoza P.A.-C. LAB BLOOD NON ADD-ON [facility] [address] [place] [address] [facility] [address] [place] [address] * Reticulocytes (10/08/2022 7:05 AM CDT) Reticulocytes, B 2.14 0.60 - 2.71 % 10/08/2022 8:00 AM CDT DTL Absolute Reticulocyte 84.3 30.4 - 110.9 x10(9)/L 10/08/2022 8:00 AM CDT DTL Blood (Blood, Venous) 10/08/2022 7:05 AM CDT 10/08/2022 7:50 AM CDT Mady Melgoza P.A.-C. LAB BLOOD ADD- ON Performing Organization Address City/[facility] Co de Phone Number [facility] [address] [place] [address], [facility] DTL [facility] [address] [place] [address] * Folate (10/08/2022 7:05 AM CDT) Folate, S 11.7 >=4.0 mcg/L 10/08/2022 10:55 AM CDT DTL Blood (Blood, Venous) 10/08/2022 7:05 AM CDT 10/08/2022 8:06 AM CDT Mady Melgoza P.A.-C. LAB BLOOD ADD- ON [facility] [address] [place] [address], [facility] DTL [facility] [address] [place] [address] * Venous Lower Extremity - Hemodynamic Study (04/05/2022 8:33 AM MOUNTER SMOKING PIPE) Anatomical Region Laterality Modality Other 04/05/2022 7:30 AM MOUNTER SMOKING PIPE Narrative 04/05/2022 7:30 AM MOUNTER SMOKING PIPE Right: VENOUS PLETHYSMOGRAPHY: ?Not done due to [...] No prior studies. Claribel Alan M.D., Ph.D. [facility] ULAR PROCEDURES * LOWER EXTREMITY ARTERIAL - STANDARD PROTOCOL (04/05/2022 8:27 AM MOUNTER SMOKING PIPE) Anatomical Region Laterality Modality Other 04/05/2022 7:42 AM MOUNTER SMOKING PIPE Narrative 04/05/2022 7:42 AM MOUNTER SMOKING PIPE Right: Doppler Waveforms: ? Normal at all [...] prior studies. Claribel Alan M.D., Ph.D. CV [facility] ULOR PROCEDURES * ECG AMBULATORY REAL TIME CARDIAC MONITORING (01/27/2022 7:31 AM CDT) Min Heart Rate 52 bpm INFOBIONIC MOME Max Heart Rate 113 bpm INFOBION[facility] MOME Mean Heart Rate 70 bpm INFOBION[facility] MOME VE Total Beats 22,325 count INFOBIONIC MOME VE Percent Beats 1.65% percent INFOBIONIC MOME SVE Total Beats 56998 count INFOBIONIC MOME SVE Percent Beats 2.27% percent INFOBIONIC MOME Holter Pauses 0 count INFOBIONIC MOME AF Count 0 count INFOBIONIC MOME AF Duration 0 sec duration INFOBIONIC MOME AF [place] 0% percent INFOBIONIC MOME VT Runs 0 [...] 98 BPM. There were single PACs seen. Entry Level Assistant Manager: SAIGE Barron/SAIGE Tenorio Procedure Note Balaji Hawkins [...] to 98 BPM. There were singlePACs seen. Entry Level Assistant Manager: SAIGE Barron/SAIGE Tenorio Kristian Dasilva M.D. CV CARDIAC SERVICES PROCEDURES INFOBIONIC MOME NA * HOLTER MONITOR - IN CLINIC POWDERMAN (01/05/2022 11:52 AM CDT) Min Heart Rate 61 bpm INFOB IONIC MOME Max Heart Rate 123 bpm INFOB IONIC MOME Mean Heart Rate 82 bpm INFOBIONIC MOME VE Total Beats 218 count INFOB IONIC MOME VE Percent Beats less than 1 percent INFOBIONIC MOME SVE Total Beats 19545 count INFOBIONIC MOME SVE Percent Beats 19 percent INFOBIONIC MOME AF Count 0 count INFOBIONIC MOME AF Duration 0 duration INFOBION IC MOME AF [place] 0 percent INFOBIONIC MOME Symptom Count 2 count INFOBI ONIC MOME 01/04/2022 9:54 AM CDT Narrative CHELSEY ULLOA - 01/08/2022 1:14 PM CDT 1. The [...] 117 bpm and PACs were seen singly. Entry Level Assistant Manager: Jerrod Burt Shay Procedure Note Adriano Reed M.D. - 01/08/2022 [...] 117 bpm and PACs were seen singly. Entry Level Assistant Manager: Jerrod Burt Shay Mickey B Galvan M.D. CV CARDIAC SERVI LUCAS PROCEDURES CHELSEY ULLOA NA * DX Chest AP or PA [...] AM CDT 01/04/2022 11:58 AM CDT Mickey Glavan M.D. LAB BLOOD NON AD D-ON [facility] [address] [place] [address] * T4 (Thyroxine), Free, Serum (01/04/2022 11:12 AM CDT) [facility] T4 (Thyroxine), Free, S 1.2 0.9 - 1.7 ng/dL 01/04/2022 12:46 PM CDT DTL Blood 01/04/2022 11:1 2 AM CDT 01/04/2022 11:58 AM CDT Mickey Galvan M.D. LAB BLOOD ADD-ON [facility] [address] [place] [address] * (ABNORMAL) Thyroid Function Niland (01/04/2022 11:12 AM CDT) [facility] TSH, Sensitive 4.5(H) 0.3 - 4.2 mIU/L 01/04/2022 12:26 PM CDT DT Blood (Blood, Venous) 01/04/2022 11:12 AM CDT 01/04/2022 11:58 AM CDT Mickey Galvan M.D. LAB BLOOD ADD-ON [facility] [address] [place] [address] * (TTE) 2D ECHO DOPPLER COLOR AND CONTRAST (01/04/2022 9:00 AM CDT) [facility] Ejection Fraction 61 MC CV EIMS Proximal [...] No ??pericardial effusion. There are no previous [facility] echocardiograms available for comparison. For the [...] location. No pericardial effusion. [facility] available for comparison. For the complete report, see the Order-Level Documents. Mickey Galvan M.D. CV ECHO PROCEDUR ES * [place] CYSTOURETHROSCOPY (03/03/2021 2:05 PM MOUNTER SMOKING PIPE) Narrative Mickey Ledezma APRN, C.N.P. - 03/03/2021 2:05 PM MOUNTER SMOKING PIPE Mickey Ledezma APRN C.N.P. ? 03/03/2021 ??2:07 PM URO Cystoscopy [...] ES * Osmolality, Urine (03/03/2021 11:43 AM MOUNTER SMOKING PIPE) Only the most recent of2 resultswithin the time period is included. Osmolality, U 761 150 - 1150 mOsm/kg 03/03/2021 4:18 PM MOUNTER SMOKING PIPE DTL Urine 03/03/2021 11:4 3 AM MOUNTER SMOKING PIPE 03/03/2021 2:38 PM MOUNTER SMOKING PIPE Mickey Galvan M.D. LAB URINE ORDERA ANNALEE [facility] [address] [place] [address], [place] [facility] [address] [place] [address] * pH, Random, Urine (03/03/2021 11:43 AM MOUNTER SMOKING PIPE) Only the most recent of2 resultswithin the time period is included. pH, Random, U 6.4 4.5 - 8.0 03/03/2021 4:18 PM MOUNTER SMOKING PIPE DTL Urine 03/03/2021 11:4 3 AM MOUNTER SMOKING PIPE 03/03/2021 2:38 PM MOUNTER SMOKING PIPE Mickey Galvan M.D. LAB URINE DORIS MANTILLA Performing Organization Address [facility] de Phone Number [facility] [address] [place] [address], [facility] 200 [place] [address] * Gram Stain, Urine (03/03/2021 11:43 AM MOUNTER SMOKING PIPE) Only the most recent of3 resultswithin the time period is included. Source Urine, Urine, Midstream 03/03/2021 2:37 PM MOUNTER SMOKING PIPE DTL Gram's Stain, Screen, U CANCELED 03/03/2021 2:38 PM MOUNTER SMOKING PIPE DTL Comment: Changed to a more appropriate test due to specimen/source received. Result canceled by the ancillary. Urine (Urine, Midstream) 03/03/2021 11:43 AM MOUNTER SMOKING PIPE 03/03/2021 2:37 PM MOUNTER SMOKING PIPE Mickey Galvan M.D. LAB URINE DORIS MANTILLA Performing Organization Address [facility] de Phone Number [facility] [address] [place] [address], [facility] [address] [place] [address] * URO Uroflow (03/03/2021 10:45 AM MOUNTER SMOKING PIPE) Narrative Steffen Pringle M.D. - 03/03/2021 10:45 AM MOUNTER SMOKING PIPE Steffen Pringle M.D. ? 03/03/2021 12:23 PM [...] PM CDT Mickey Galvan M.D. LAB URINE DORIS MANTILLA [facility] [address] [place] [address], [facility] [address] [place] [address] * [place] CYSTHRSCPY RMVL FB/STENT SMPL (05/07/2019 10:30 AM MOUNTER SMOKING PIPE) Narrative Keith Lovelace APRN C.N.P., M.S.N. - 05/07/2019 10:30 AM MOUNTER SMOKING PIPE Keith Lovelace APRN, C.N.P., M.S.N. ? 05/07/2019 [...] Quant without IV Contrast (04/20/2019 1:00 PM MOUNTER SMOKING PIPE) Anatomical Region Laterality Modality Abdomen, Pelvis, Abdominal R ST LOS, Abdominal ARZ LOS, Abdominal FLA LOS N/A Computed Tomograp hy, Computed Tomography 04/20/2019 1:02 PM MOUNTER SMOKING PIPE Impressions 04/20/2019 1:13 PM MOUNTER SMOKING PIPE Interval placement of a right ureteral stent with removal of the obstructing right UVJ stone. Several right renal calculi persist. Tiny nonobstructing left renal calculi. Narrative 04/20/2019 1:13 PM MOUNTER SMOKING PIPE EXAM: ??CT ABDOMEN PELVIS KIDNEY STONE QUANT [...] persist. Tiny nonobstructing left renal calculi. Turner S Juvet M.D. IMG CT PROCEDURES * FL Fluoro Less Than 1 Hour (04/04/2019 1:34 PM MOUNTER SMOKING PIPE) Only the most recent of2 resultswithin the time period is included. Narrative 152 HOS LOS RST - 04/04/2019 1:34 PM MOUNTER SMOKING PIPE This exam does not require a radiologist review or interpretation. Please refer to the patient's medical record on this date for clinical details. James Mina M.D. IMG FLUOROSCOPY PROC EDURES 152 HOS LOS RST * Kidney Stone Analysis (04/04/2019 1:26 PM MOUNTER SMOKING PIPE) Only the most recent of3 resultswithin the time period is included. Source Stone, Ureter, Right 04/05/2019 9:56 PM MOUNTER SMOKING PIPE [facility] Stone Interpretation 100% Uric acid 04/05/2019 9:56 PM MOUNTER SMOKING PIPE [facility] Stone (Ureter, Right) 04/04/2019 1:26 PM MOUNTER SMOKING PIPE James Mina M.D. LAB MISC ORDERABLES [facility] [address] [place] [address] [facility] Dept. of Laboratory Medicine and Pathology [address] [place] [address] * LDA ANE ENDOTRACHEAL AIRWAY (04/04/2019 11:49 AM MOUNTER SMOKING PIPE) Narrative Deyvi Gordon R.N. - 04/04/2019 11:49 AM MOUNTER SMOKING PIPE Deyvi Gordon R.N. ? 04/04/2019 11:51 AM [...] ETT location: oral VL device: glide scope [place] scope blade size: 4 Adult tube size: [...] Non-Radiology Image-Urology Image Exam (03/12/2019 1:02 PM MOUNTER SMOKING PIPE) Only the most recent of3 resultswithin the time period is included. 03/12/2019 1:21 PM MOUNTER SMOKING PIPE Narrative IIMS - 03/12/2019 1:02 PM MOUNTER SMOKING PIPE This order has been created and auto-finalized to support the import of images acquired without order. The clinical documentation to support these images can be found on the encounter that produced images. Provider Not In System IMG NON RAD IMAGI NG PROCEDURES IIMS NA * LDA ANE ENDOTRACHEAL AIRWAY (03/12/2019 12:27 PM MOUNTER SMOKING PIPE) Narrative Dashawn Iqbal APRN, CRNA, D.N.P. - 03/12/2019 12:27 PM MOUNTER SMOKING PIPE Dashawn Iqbal APRN, CRNA, D.N.P. ? 03/12/2019 12:28 PM Airway Date/Time: 03/12/2019 12:02 PM Performed by: Dashawn Iqbal APRN, CRNA, D.N.P. Authorized by: Scooby Haas M.D. Care team members present 1. Dashawn Iqbal APRN, CRNA, D.N.P. Patient location during procedure: OR / Procedure Area PROCEDURE DETAILS: Mask difficulty assessment: oral/nasal airway needed Final airway type: video laryngoscope Laryngeal Manipulation: no ?? Final best view of glottic structures - Cormack/Lehane Score: grade 1 ETT location: oral VL device: glide scope [place] scope blade size: 4 Adult tube size: [...] event: no complications Scooby Haas M.D. ANESTHESIA GOLD RAY * Fungal Culture, Routine (03/12/2019 12:25 PM MOUNTER SMOKING PIPE) Fungal Culture, Routine No growth after 24 days of incubation. 04/06/2019 1:01 AM MOUNTER SMOKING PIPE DTL Urine (Urine, Cystoscopy) 03/12/2019 12:25 PM MOUNTER SMOKING PIPE Ashkan Villanueva M.D. LAB MICROBIOLOGY - G ENERAL ORDERABLES Performing Organization Address City/[facility]/ZIP Co de Phone Number [facility] [address] [place] [address], [facility] DTL [facility] 200 [place] [address] * Ketones, Qual, Urine (03/12/2019 4:36 AM MOUNTER SMOKING PIPE) Only the most recent of3 resultswithin the time period is included. Ketones, QL(U) Negative Negative mg/dL 03/12/2019 6:26 AM MOUNTER SMOKING PIPE ELOY Urine 03/12/2019 4:36 AM MOUNTER SMOKING PIPE 03/12/2019 5:44 AM MOUNTER SMOKING PIPE Sonja Huff M.D. LAB URINE ORDERAB LES Performing Organization Address City/[facility]/ZIP Co de Phone Number [facility] [address] [place] [address], [facility] ELOY [facility] [address] * CT Abdomen Pelvis without IV Contrast [...] appear to have calcific density on CT compliance program manager images suggesting that the nidus of the [...] appear to have calcific density on CT compliance program manager images suggesting thatthe nidus of the stones [...] 227 mmol/24 h 9 1:[address] [facility] Potassium, 24 HR, U 35 17 - 77 mmol/24 h 9 1:[address] [facility] Calcium, 24 HR, U 37 <250 mg/24 h 9 1:[address] [facility] Comment: ----ADDITIONAL INFORMATION---- This test was developed and its performance characteristics determined by [facility] in a manner consistent with CLIA requirements. This test has not been cleared or approved by the U.S. Food and Drug Administration. Magnesium, 24 HR, U 46(L) 51 - 269 mg/24 h 9 1:[address] [facility] Comment: ----ADDITIONAL INFORMATION---- This test has been modified from the president ergonomic consulting's instructions. Its performance characteristics were determined by [facility] in a manner consistent with CLIA requirements. This test has not been cleared or approved by the U.S. Food and Drug Administration. Chloride, 24 HR, U 110 40 - 224 mmol/24 h 9 1:[address] [facility] Phosphorus, 24 HR, U 742 <1100 mg/24 h 9 1:[address] [facility] Sulfate Urine 11 7 - 47 mmol/24 h 9 1:[address] [facility] Comment: ----ADDITIONAL INFORMATION---- This test was developed and its performance characteristics determined by [facility] in a manner consistent with CLIA requirements. This test has not been cleared or approved by the U.S. Food and Drug Administration. Citrate Excretion, U 107 mg/24 h 9 1:[address] [facility] Comment: ----REFERENCE VALUE---- Reference values have not been established for patients who are >60 years of age. ----ADDITIONAL INFORMATION---- This test was developed and its performance characteristics determined by [facility] in a manner consistent with CLIA requirements. This test has not been cleared or approved by the U.S. Food and Drug Administration. Oxalate, U (mmol/24 h) 0.34 0.11 - 0.46 mmol/24 h 9 4:[address] [facility] Comment: ----ADDITIONAL INFORMATION---- This test was developed and its performance characteristics determined by [facility] in a manner consistent with CLIA requirements. This test has not been cleared or approved by the U.S. Food and Drug Administration. Oxalate, mg/24 h 29.9 9.7 - 40.5 mg/24 h 9 4:[address] [facility] pH, 24 HR, U 5.3 4.5 - 8.0 9 2:[address] [facility] Comment: ----ADDITIONAL INFORMATION---- This test was developed and its performance characteristics determined by [facility] in a manner consistent with CLIA requirements. This test has not been cleared or approved by the U.S. Food and Drug Administration. Uric Acid, 24 HR, U 510 <750 (Diet-depen dent) mg/24 h 9 1:[address] [facility] Comment: ----ADDITIONAL INFORMATION---- This test has been modified from the president [employer]'s instructions. Its performance characteristics were determined by [facility] in a manner consistent with CLIA requirements. This test has not been cleared or approved by the U.S. Food and Drug Administration. Creatinine, 24 HR, U 1641 mg/24 h 9 1:[address] [facility] Comment: ----REFERENCE VALUE---- The expected creatinine excretion per 24 hrs for males: 955-2936 mg/24 hrs or 13-29 mg/kg/24 hrs. Note: To convert to mg/kg of body weight/24 hrs, divide the mg/24 h result by the weight in kg. Osmolality, 24 HR, U 685 150 - 1150 mOsm/kg 9 2:[address] [facility] Comment: ----ADDITIONAL INFORMATION---- This test was developed and its performance characteristics determined by [facility] in a manner consistent with CLIA requirements. This test has not been cleared or approved by the U.S. Food and Drug Administration. Ammonium, 24 HR, U 31 15 - 56 mmol/24 h 9 2:[address] [facility] Comment: ----ADDITIONAL INFORMATION---- This test has been modified from the [employer]'s instructions. Its performance characteristics were determined by [facility] in a manner consistent with CLIA requirements. This test has not been cleared or approved by the U.S. Food and Drug Administration. Urea Nitrogen, 24 HR, U 7.7 5.0 - 16.0 g/24 h 9 1:[address] [facility] Protein Catabolic Rate, 24 HR, U 73 56 - 125 g/24 h 9 1:[address] Calcium Oxalate Crystal 1.50 Reference Mean= 1.77 DG 9 11:[address] [facility] Brushite Crystal -2.46 Reference Mean= 0.21 DG 9 11:[address] [facility] Hydroxyapatite Crystal -0.18 Reference Mean= 3.96 DG 9 11:[address] [facility] Uric Acid Crystal 4.78(H) Reference Mean= 1.04 DG 9 11:[address] Sodium Urate Crystal 1.71 Reference Mean= 1.76 DG 9 11:[address] [facility] Collection Duration 24 h 9 11:[address] [facility] Volume 927 mL 9 11:[address] Interpretation The DG is related to supersaturation. DG is negative for undersaturated solutions, zero for solutions at the solubility product, and positive for saturated solutions. Any value greater than the Reference Mean is considered a risk for the respective crystal type formation. 11:[address] [facility] Urine (Urine, 24 Hours) 07/26/2018 9:00 AM CDT 07/26/2018 11:00 AM CDT Mickey Galvan M.D. LAB URINE ORDERA NANALEE [facility] [address] * Monoclonal Protein Study, 24 Hour, Urine (07/26/2018 9:00 AM CDT) Total Protein, 24 HR, U 139 <229 mg/24 h 07/27/2018 8:[address] [facility] Comment: ----ADDITIONAL INFORMATION---- On 10/12/2016 the total protein assay method changed resulting in approximately a 15% increase in protein values. Collection Duration 24 h 07/27/2018 7:[address] [facility] Urine Volume 927 mL 07/27/2018 7:[address] [facility] Concentration 15 mg/dL 07/27/2018 8:[address] [facility] Albumin, % 38 % 07/28/2018 4:16 PM CDT [facility] Comment:53 mg/24 h Alpha 1-Globulin, % 5 % 07/28/2018 4:16 PM CDT [facility] Comment:7 mg/24 h Alpha-2 globulin, % 18 % 07/28/2018 4:16 PM CDT [facility] Comment:25 mg/24 h Beta globulin, % 17 % 07/29/19 19 4:16 PM CDT [facility] Comment:24 mg/24 h Gamma globulin, % 23 % 07/28/2018 4:16 PM CDT [facility] Comment:32 mg/24 h A/G Ratio 0.60 07/28/2018 4:16 PM CDT [facility] Impression All fractions present, no apparent M-spike. See Immunofixatio n. 07/28/2018 4:16 PM CDT [facility] Immunofixation, 24 Hr, U No monoclonal protein detected. 08/01/2018 3:04 PM CDT [facility] Urine (Urine, 24 Hours) 07/26/2018 9:00 AM CDT 07/27/2018 10:55 AM CDT Mickey Galvan M.D. LAB URINE ORDERA BLES Performing Organization Address City/[facility] Co de Phone Number [facility] [address] [place] [address] * 1,25-Dihydroxyvitamin D (07/25/2018 11:21 AM CDT) 1, 25 DIHYDROXYVITAMIN D, S 30 18 - 64 pg/mL 07/27/2018 2:00 PM CDT [facility] Comment: ----ADDITIONAL INFORMATION---- This test was developed and its performance characteristics determined by [facility] in a manner consistent with CLIA requirements. This test has not been cleared or approved by the U.S. Food and Drug Administration. Blood (Blood, Venous) 07/25/2018 11:21 AM CDT 07/26/2018 7:08 AM CDT Mickey Galvan M.D. LAB BLOOD ADD-ON [facility] [address] [place] [address] * 25-Hydroxyvitamin D2 and D3 (07/25/2018 11:21 AM CDT) 25-Hydroxy D2 <4.0 ng/mL 07/27/2018 2:51 PM CDT [facility] 25-Hydroxy D3 50 ng/mL 07/27/2018 2:51 PM CDT [facility] 25-Hydroxy D Total 50 ng/mL 2018 2:51 PM CDT [facility] Comment: ----REFERENCE VALUE---- 25-HYDROXY D TOTAL (D2+D3) Optimum levels in the healthy population are 20-50, patients with bone disease may benefit from higher levels within this range. ----ADDITIONAL INFORMATION---- This test was developed and its performance characteristics determined by [facility] in a manner consistent with CLIA requirements. This test has not been cleared or approved by the U.S. Food and Drug Administration. Blood (Blood, Venous) 07/25/2018 11:21 AM CDT 07/26/2018 7:49 AM CDT Mickey Galvan M.D. LAB BLOOD ADD-ON Performing Organization Address [facility] Co de Phone Number [facility] [address] [place] [address] * Uric Acid (07/25/2018 11:21 AM CDT) Only the most recent of2 resultswithin the time period is included. Uric Acid, S 3.9 3.7 - 8.0 mg/dL 07/25/2018 12:[address] [facility] Blood (Blood, Venous) 07/25/2018 11:21 AM CDT 07/25/2018 11:42 AM CDT Mickey Galvan M.D. LAB BLOOD ADD-ON Performing Organization Address City/[facility]/ZIP Co de Phone Number [facility] [address] [place], [place] [address] * ANESTHESIOLOGY IMAGE EXAM (08/26/2016 10:12 AM [...] 4. Electronically signed by: Kimi Manzano M.D. [phone] 10-Aug-2016 12:45 Darlyn Thompson M.D. IMG CT PROCEDURES * Microalbuminuria, 24 Hour, Urine (08/13/2015 10:01 AM CDT) 24 Hour Excretion <9 <30 MG/[address] [facility] Albumin Excretion Rate <6 <20 MCG/MIN [facility] Albumin Concentration <5.0 MG/L [facility] Collection Duration [address] [facility] Urine Volume 1786 ML [facility] 08/13/2015 10:0 1 AM CDT 08/13/2015 10:01 AM CDT Scooby Cabezas M.D. LAB URINE ORDERABLES [facility] [address] * Polysomnography (PSG) (07/28/2015 8:14 PM CDT) 07/28/2015 8:14 PM CDT Historical Provider SLEEP CENTER ORDERAB LES Performing Organization Address City/[facility]/ZIP Co de Phone Number [facility] [address] * PUL Home Overnight Oximetry (07/16/2015 9:00 PM CDT) 07/16/2015 9:00 PM CDT Historical Provider PFT ORDERABLES Performing Organization Address [facility] Co de Phone Number [facility] [address] * (ABNORMAL) Lipid Panel (07/16/2015 11:49 AM CDT) Cholesterol, Total 174 SeeComment MG/DL [facility] Comment: ? REFERENCE VALUE ? Desirable: < 200 ? Borderline high: 200 - 239 ? High: > or = 240 ? Triglycerides 163(H) SeeComment MG/DL [facility] Comment: ? REFERENCE VALUE ? Normal: <150 ? Borderline high: 150-199 ? High: 200-499 ? Very high: > or =500 ? Cholesterol, Non-HDL, Calculated 140 SeeComment MG/DL [facility] Comment: ? REFERENCE VALUE ? Desirable: <130 ? Above Desirable: 130-159 ? Borderline high: 160-189 ? High: 190-219 ? Very high: > or =220 ? Cholesterol, HDL, S 34(L) >=40 MG/DL [facility] Calculated LDL 107 SeeComment MG/DL [facility] Comment: ? REFERENCE VALUE ? Desirable: <100 ? Above Desirable: 100-129 ? Borderline high: 130-159 ? High: 160-189 ? Very high: > or =190 ? 07/16/2015 11:4 9 AM CDT 07/16/2015 11:49 AM CDT Scooby Cabezas M.D. LAB BLOOD ADD-ON Performing Organization Address City/[facility] Co de Phone Number [facility] [address] * AST (Aspartate Aminotransferase) (07/16/2015 11:49 AM CDT) Only the most recent of2 resultswithin the time period is included. AST, Total, S 16 8 - 48 U/L [facility] 07/16/2015 11:4 9 AM CDT 07/16/2015 11:49 AM CDT Scooby Cabezas M.D. LAB BLOOD ADD-ON Performing Organization Address City/[facility] Co de Phone Number [facility] [address] * DX Knee Standing 4 Views [...] M.D. [phone] 10-Jul-2015 08:56 Chitra Mauricio APRN C.N.PAjit IMG DIAGNOST IC IMAGING PROCEDURES * DX [...] ankle. Electronically signed by: Kristian Richter M.D. [phone] 10-Jul-2015 08:57 Chitra Mauricio APRN, C.N.P. [facility] DIAGNOST IC IMAGING PROCEDURES * US Abdomen Complete (04/04/2015 9:07 AM [employer]) Anatomical Region Laterality Modality Abdomen N/A Ultrasound 04/04/2015 9:07 AM [employer] Impressions 04/04/2015 10:06 AM [employer] 1. No hydronephrosis. 2. 0.5 cm stone [...] Electronically signed by: ?? Preet Quezada MD [phone] 04-Apr-2015 10:06 ?DAjit Kline ?? [phone] 04-Apr-2015 10:06 Narrative 04/04/2015 10:06 AM [employer] 04-Apr-2015 09:07:00 ??Exam: US Retroperitoneal Complete Indications: [...] Decompressed. Electronically signed by: Preet Quezada MD [phone] 04-Apr-2015 10:06 Josh Kline MD [phone] 10:06 Yumiko Gutiérrez M.D. IMG US PROCEDURES * Sodium (04/04/2015 7:53 AM M[employer]MO[employer]IPE) Only the most recent of3 resultswithin the time period is included. Sodium, S 142 135 - 145 MMOL/L [facility] 04/04/2015 7:53 AM [employer] 04/04/2015 7:53 AM [employer] S[employer]IPE Yumiko Gutiérrez M.D. LAB BLOOD ADD-ON [facility] [address] * (ABNORMAL) Potassium (04/04/2015 7:53 AM [employer]IPE) Only the most recent of3 resultswithin the time period is included. Potassium, S 3.4(L) 3.6 - 5.2 MMOL/L [facility] 04/04/2015 7:53 AM [employer]IPE 04/04/2015 7:53 AM [employer]IPE Yumiko Gutiérrez M.D. LAB BLOOD ADD-ON Performing Organization Address City/[facility]/ZIP Co de Phone Number [facility] [address] * Bicarbonate (04/04/2015 7:53 AM [employer]IPE) Only the most recent of3 resultswithin the time period is included. HX Bicarbonate, P/S 26 22 - 29 MMOL/L [facility] 04/04/2015 7:53 AM [employer] 04/04/2015 7:53 AM [employer] S[employer]IPE Yumiko Gutiérrez M.D. LAB BLOOD ADD-ON Performing Organization Address [facility] Co de Phone Number [facility] [address] * Calcium, Total (04/04/2015 7:53 AM MOUN[employer] S[employer] PIPE) Only the most recent of2 resultswithin the time period is included. Calcium, Total, S 9.6 8.9 - 10.1 MG/DL [facility] 04/04/2015 7:53 AM [employer] 04/04/2015 7:53 AM [employer] S[employer]IPE Yumiko Gutiérrez M.D. LAB BLOOD ADD-ON Performing Organization Address City/[facility] Co de Phone Number [facility] [address] * CT Abdomen Pelvis Kidney Stone [...] changes. Electronically signed by: ?? Preet Crespo [facility] [phone] 30-Jan-2015 13:09 ?Preet Quezada MD [phone] 30-Jan-2015 13:09 Narrative 01/30/2015 1:09 PM CDT 30-Jan-2015 10:31:00 ??Exam: CT Renal Stone AP wo Indications: [id number] ??CT RENAL STONE - s/p right PCNL, eval residual stone burden ORIGINAL REPORT - 30-Jan-2015 13:09:00 EXAM: ??CT scan of the Abdomen and Pelvis without IV contrast COMPARISON: ??CT abdomen and pelvis renal stone protocol dated 11/25/2014. CT abdomen and pelvis dated 05/06/2014. Procedure Note Wilner Crespo M.B., B.Ch. - 07/14/2017 30-Jan-2015 10:31:00 Exam: CT Renal Stone AP wo Indications: [id number] CT RENAL STONE - s/p right PCNL, [...] degenerative changes. Electronically signed by: Preet Crespo [facility] [phone] 30-Jan-2015 13:09 Preet Quezada MD [id number] 13:09 Veronique Arango M.D. IMG CT PROCEDURES * Microbiology Reports (01/29/2015 12:39 PM CDT) Only the most recent of3 resultswithin the time period is included. 01/29/2015 12:3 9 PM CDT 01/29/2015 7:[address] [facility] - 02/23/2015 1:09 AM [employer] S[employer]IPE 29-JAN-2015 KIDNEY, STONE ?SoftOrd# [id number] ?(Ordered 29-JAN-2015; Collected 29-JAN-2015 12:39; Received 29-JAN-2015 19:57) ?[facility] [address] [place] ?FUNGAL CULTURE, ROUTINE ? (Reported 23-FEB-2015 01:09) [...] S ?*Restricted formulary antimicrobials; see intranet link: ?[email or web address] Procedure Note 07/26/2017 29-JAN-2015 KIDNEY, STONESoftOrd# [id number] (Ordered 29-JAN-2015; Collected 29-JAN-2015 12:39; [id number] 19:57) [facility] FUNGAL CULTURE, ROUTINE(Reported 23-FEB-2015 01:09) FINAL [...] S *Restricted formulary antimicrobials; see intranet link: [email or web address] Veronique Arango M.D. LAB MICROBIOLOGY - [facility] ORDERABLES [facility] [address] [place] [address], [facility] * Ureaplasma PCR (01/29/2015 12:39 PM CDT) Specimen Source (Ureaplasma PCR) . [facility] Comment:KIDNEY STONE Ureaplasma urealyticum PCR Negative Not Applicable [facility] Ureaplasma parvum PCR Negative Not Applicable [facility] Comment: ? ADDITIONAL INFORMATION ? Laboratory developed test. ? 01/29/2015 12:3 9 PM CDT 01/29/2015 12:39 PM CDT Veronique Arango M.D. LAB [facility] ORDER[facility] Performing Organization Address City/State/[facility] Co de Phone Number [facility] [address] [place] [address], [facility] * Mycoplasma hominis PCR (01/29/2015 12:39 PM CDT) Specimen Source (Myco hominis PCR) . [facility] Comment:KIDNEY STONE Mycoplasma hominis PCR Negative Not Applicable [facility] Comment: ? ADDITIONAL INFORMATION ? Laboratory developed test. ? 01/29/2015 12:3 9 PM CDT 01/29/2015 12:39 PM CDT Veronique Arango M.D. LAB MICROBIOLOGY - G [facility] ORDERABLES Performing Organization Address [facility] de Phone Number [facility] [address] [place] [address], [facility] * ABORh, RBC (01/29/2015 8:46 AM CDT) HXABO/RH BLOOD TYPE A Pos [facility] 01/29/2015 8:46 AM CDT Historical Provider LAB BLOOD BANK TEST ORDERABLES Performing Organization Address [facility] Co de Phone Number [facility] [address] [place] [address], [facility] * Antibody Screen, RBC (01/29/2015 8:46 AM CDT) Antibody Screen Negative [facility] 01/29/2015 8:46 AM CDT Historical Provider LAB BLOOD BANK TEST ORDERABLES [facility] [address] [place] [address], [facility] * DX Knee 4+ Views (12/03/2014 10:43 [...] Nitrogen), S 18 8 - 24 MG/DL [facility] 11/13/2014 9:33 AM CDT 11/13/2014 9:33 AM CDT Veronique Arango M.D. LAB BLOOD ADD-ON [facility] [address] [place], [place] [address] * (ABNORMAL) Chloride (11/13/2014 9:33 AM CDT) Only the most recent of2 resultswithin the time period is included. Chloride, S 95(L) 98 - 107 MMOL/L [facility] 11/13/2014 9:33 AM CDT 11/13/2014 9:33 AM CDT Veronique Arango M.D. LAB BLOOD ADD-ON Performing Organization Address City/[facility]/ZIP Co de Phone Number [facility] [address] * (ABNORMAL) Sedimentation Rate (09/04/2014 10:46 AM CDT) Sedimentation Rate, B 25(H) 0 - 22 MM/[address] [facility] 09/04/2014 10:4 6 AM CDT 09/04/2014 10:46 AM CDT Scooby Cabezas M.D. LAB BLOOD ADD-ON Performing Organization Address City/[facility] Co de Phone Number [facility] [address] * Alkaline Phosphatase (09/04/2014 10:46 AM CDT) Alkaline Phosphatase, S 94 45 - 115 U/L [facility] 09/04/2014 10:4 6 AM CDT 09/04/2014 10:46 AM CDT Scooby Cabezas M.D. LAB BLOOD ADD-ON Performing Organization Address City/[facility]/ZIP Co de Phone Number [facility] [address] * PUL Home Overnight Oximetry (05/27/2014 10:29 PM MOUN[employer] S[employer] PIPE) 05/27/2014 10:2 9 PM M[employer] S[employer] PIPE Historical Provider PFT ORDERABLES Performing Organization Address City/[facility]/ZIP Co de Phone Number [facility] [address] * (ABNORMAL) Microalbumin, Random, Urine (05/27/2014 1:19 PM MOUNTER SMO[employer] PIPE) Albumin/Creatinin e Ratio 40(H) <17 MG/G [facility] Microalbumin 69.3 MG/L [facility] Creatinine 172 MG/DL [facility] 05/27/2014 1:19 PM [employer] PIPE 05/27/2014 1:19 PM MOUNTER SMOKING PIPE Duke Marquez M.D. LAB URINE ORDERABLES Performing Organization Address [facility] Co de Phone Number [facility] [address] * (ABNORMAL) Glucose, Random (05/27/2014 12:54 PM MOUNTER SMOKING PIPE) Pathologist [facility] Glucose, S 157(H) 70 - 140 MG/DL [facility] 05/27/2014 12:5 4 PM M[employer]IPE 05/27/2014 12:54 PM MOUNTER SMOKING PIPE Duke Marquez M.D. LAB BLOOD TROPONIN Performing Organization Address [facility] Co de Phone Number [facility] [address] * Pulmonary Function Tests (03/30/2002 9:39 AM MOUNTER SMOKING PIPE) 03/30/2002 9:39 AM MOUNTER SMOKING PIPE Elena Contreras M.D. PFT ORDERABLES Performing Organization Address [facility] Co de Phone Number [facility] [address] * CT Head with IV Contrast [...] ?? Kristian Keenan M.D. 30-Oct-2001 15:54 ?Marichuy [phone] [id number] 30-Oct-2001 15:54 Procedure Note David Keenan [...] by: Kristian Keenan M.D. 30-Oct-2001 15:54 Marichuy [phone] 30-Oct-2001 15:54 Mike Maldonado M.D. IMG CT [...] Electronically signed by: ?? Gwendolyn Bowles M.D. [phone] 30-Oct-2001 14:58 ?Nette Alvarenga [phone] 30-Oct-2001 14:58 Procedure Note Mario Alberto Bowles M.D. - 07/22/2017 30-Oct-2001 13:04:00 Exam: -KUB w/tomos Indications: htn ORIGINAL REPORT - 30-Oct-2001 14:58:00 KUB with tomograms: No radiopaque renal stones. Left kidney measuresapproximately 15cm, and right kidney measures approximately 14 cm inlength. Electronically signed by: Gwendolyn Bowles M.D. [phone] 30-Oct-2001 14:58 Nette [phone]) 30-Oct-2001 14:58 Mike GROSS DIAGNOSTIC I MAGING PROCEDURES * Hx general Pathology Report (02/02/1994 10:28 AM CDT) 02/02/1994 10:2 8 AM CDT 02/02/1994 10:[address] [facility] - 02/02/1994 10:28 AM CDT [id number] Surgical Pathology Requested By: ? Galileo Dubon M.D. ?([id number]) ?? TISSUE DESCRIPTION: ?Tissue from the spine (L-5, right) ?? DIAGNOSIS: ?Disk and ligamentous tissue weighing 2.51 grams. ?? [id number] ?Mario Alberto Rivero M.D.:eab Procedure Note 07/08/2017 [id number] Surgical Pathology Requested By: Galileo Dubon M.D.([id number]) TISSUE DESCRIPTION: Tissue from the spine (L-5, right) DIAGNOSIS: Disk and ligamentous tissue weighing 2.51 grams. [id number] Mario Alberto Rivero M.D.:eab Authorizing Provider Result Charlene Dubon M.D. LAB PATHOLOGY/CYTOLO GY ORDERABLES Performing Organization Address City/State/[facility] Co de Phone Number [facility] [address] [place] [address], [facility] Visit Diagnoses Diagnosis Start Date Apnea Sleep Obstructive 01/19/2018 Stone Kidney 07/25/2018 Stone Kidney 07/25/2018 Stone Kidney 07/25/2018 Stone Kidney 07/25/2018 Stone Kidney 07/25/2018 Stone Kidney 07/25/2018 Diabetes Mellitus Type 2 (HCC) 07/25/2018 Diabetes Mellitus Type 2 (HCC) 07/25/2018 Morbid Obesity Body Mass Index Greater Than Or Equal To 40 Adult ([facility]) 07/25/2018 Nephrolithiasis Calcium Oxalate 07/25/2018 Stones Uric Acid 07/25/2018 Proteinuria 07/25/2018 Hypertension Essential Primary 07/25/2018 Diabetes Mellitus Type 2 (HCC) 08/01/2018 Morbid Obesity Body Mass Index Greater Than Or Equal To 40 Adult ([facility]) 08/01/2018 Stones Uric Acid 08/01/2018 Stones Uric Acid 08/01/2018 Stone Kidney 12/12/2018 Stones Uric Acid 12/12/2018 Stones Uric Acid 12/12/2018 Diabetes Mellitus Type 2 (HCC) 12/12/2018 Morbid Obesity Body Mass Index Greater Than Or Equal To 40 Adult ([facility]) 12/12/2018 Nephrolithiasis 03/12/2019 Nephrolithiasis 03/12/2019 Stone Kidney And Ureteral 03/12/2019 Decline Functional Status 03/12/2019 Stone Kidney And Ureteral 03/26/2019 Preanesthetic Medical Exam 04/02/2019 Stone Kidney And Ureteral 04/02/2019 Hypertension And Chronic Kidney Disease Stage 3 04/02/2019 Chronic Kidney Disease Stage 3 Glomerular Filtration Rate 30 To 59 04/02/2019 Morbid Obesity Body Mass Index Greater Than Or Equal To 40 Adult (HCC) 04/02/2019 Apnea Sleep Obstructive 04/02/2019 Stone Kidney And Ureteral 04/04/2019 Stone Kidney And Ureteral 04/04/2019 Stone Kidney 04/20/2019 Stone Kidney And Ureteral 05/07/2019 Stent Ureteral Indwelling 05/07/2019 Apnea Sleep Obstructive 08/09/2019 Apnea Sleep Obstructive 08/09/2019 Diabetes Mellitus Type 2 (HCC) 08/09/2019 Hypertension And Chronic Kidney Disease Stage 3 08/09/2019 Morbid Obesity Body Mass Index Greater Than Or Equal To 40 Adult ([facility]) 08/09/2019 Apnea Sleep Obstructive 08/14/2020 Hypertension And Chronic Kidney Disease Stage 3 12/10/2020 Dysuria 12/10/2020 Hypertension And Chronic Kidney Disease Stage 3 12/11/2020 Hypertension And Chronic Kidney Disease Stage 3 12/11/2020 Dysuria 12/11/2020 Stones Uric Acid 12/11/2020 Nephrolithiasis 12/11/2020 Chronic Kidney Disease (CKD), Stage 3a Glomerular Filtration Rate (GFR) 45 To 59 ([facility]) 12/11/2020 Urinary Tract Infection Site Not Specified 12/11/2020 Diabetes Mellitus Type 2 ([facility]) 12/11/2020 Hematuria 12/12/2020 Pyuria 12/12/2020 Urinary Tract Infection Site Not Specified 12/12/2020 Deficiency Urethral Sphincter Intrinsic 12/12/2020 Neuromuscular Dysfunction Of Bladder Unspecified 12/12/2020 Other Specified Diabetes Mellitus With Diabetic Chronic Kidney Disease ([facility]) 12/12/2020 Hematuria 03/03/2021 Pyuria 03/03/2021 [...] Type 2 (HCC) 04/30/2021 Atrial Fibrillation Unspecified ([facility]) 06/18/2021 Urinary Tract Infection Site Not Specified 07/21/2021 Diabetes Mellitus Type 2 ([facility]) 07/21/2021 Obstructive Sleep Apnea Adult 07/29/2021 Morbid Obesity ([facility]) 07/29/2021 Obesity Body Mass Index 30-39.9 Adult 07/29/2021 Fatigue 07/29/2021 Obstructive Sleep Apnea Adult 08/14/2021 Atrial Fibrillation Unspecified ([facility]) 01/04/2022 Atrial Fibrillation Unspecified (HCC) 01/04/2022 Atrial [...] Body Mass Index 45.0-49.9 Adult ([facility]) 05/02/2023 Diabetes Mellitus Type 2 Peripheral Neuropathy ([facility]) 05/02/2023 Hypertension And Chronic Kidney Disease Stage 3 05/02/2023 Weakness General 05/02/2023 Anemia Iron Deficiency 05/02/2023 Apnea Sleep Obstructive 05/02/2023 Chronic Kidney Disease (CKD), Stage 3a Glomerular Filtration Rate (GFR) 45 To 59 ([facility]) 05/02/2023 Decline Functional Status 05/02/2023 Hypothyroidism 05/02/2023 Radiculopathy Lumbar 05/02/2023 Stenosis Spinal Lumbar With Neurogenic Claudication 05/02/2023 Stones Uric Acid 05/02/2023 Nodule Prostate 05/02/2023 Other Hyperlipidemia 05/02/2023 Diarrhea 05/02/2023 Cough Acute 05/02/2023 Edema 05/02/2023 Malignant Neoplasm Of Colon Ascending (HCC) 05/09/2023 Diabetes Mellitus Type 2 Peripheral Neuropathy ([facility]) 05/09/2023 Apnea Sleep Obstructive 05/09/2023 Chronic Kidney Disease (CKD), Stage 3a Glomerular Filtration Rate (GFR) 45 To 59 (HCC) 05/09/2023 Hypothyroidism 05/09/2023 Major Depressive Disorder, Recurrent, Unspecified (HCC) 05/09/2023 Decline Functional Status 05/09/2023 Morbid Obesity Body Mass Index 45.0-49.9 Adult ([facility]) 05/09/2023 Malignant Neoplasm Of Colon [...] Stenosis Of Neural Canal Lumbar Region 08/08/2023 Tachycardia Atrial Paroxysmal (HCC) 10/24/2023 Chronic Idiopathic Constipation 10/24/2023 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 Malignant Neoplasm Of Colon (HCC) 10/24/2023 Malignant Neoplasm Of Colon Ascending ([facility]) 10/24/2023 Malignant Neoplasm Of Sigmoid Colon ([facility]) 10/24/2023 Morbid Obesity Body Mass Index 50.0-59.9 Adult ([facility]) 10/24/2023 Diabetes Mellitus Type 2 Peripheral Neuropathy ([facility]) 10/24/2023 Radiculopathy Lumbar 10/24/2023 Apnea Sleep Obstructive 10/24/2023 Edema Leg Chronic 10/24/2023 Anemia Iron Deficiency 10/24/2023 Chronic Kidney Disease (CKD), Stage 3a Glomerular Filtration Rate (GFR) 45 To 59 ([facility]) 10/24/2023 Stones Uric Acid 10/24/2023 Hyperlipidemia 10/24/2023 Hypothyroidism 10/24/2023 Hypertensive Chronic Kidney Disease (CKD) Stage 3a Glomerular Filtration Rate (GFR) 45 To 59 10/24/2023 Debility 10/24/2023 Repeated Falls 10/24/2023 Major Depressive Disorder, Recurrent, Unspecified ([facility]) 10/24/2023 Nephrolithiasis 03/12/2019 Stone Kidney And Ureteral 03/12/2019 Stone Kidney And Ureteral 04/04/2019 Pain Back Lumbar 10/07/2022 Hypertension And Chronic Kidney Disease Stage 3 (HCC) 10/07/2022 Apnea Sleep Obstructive 10/07/2022 Morbid Obesity ([facility]) 10/07/2022 Radiculopathy Lumbar 10/07/2022 Other Hyperlipidemia 10/07/2022 [...] (HCC) 05/11/2023 Repeated Falls 05/11/2023 Care Teams Rn Internal Medicine Relationship Specialty Start Date End Date Eli Rondon APRN, C.N.P. [address] [place] [phone] PCP - General Family Medicine 10/21/23
--- OUTSIDE RECORDS SUMMARY | 2023-10-24 19:38 | XMS_ITS | Encounter Summary ---
Author Organization [facility] Address [address] [place] [address] Care Team Providers Care Repairer Name Role Phone Elsewhere, Pcp Primary Care Provider Unavailabl e Encounter Details Date Type Department Care Team (Late st Contact Info) Description 09/09/2023 CPAP Download Remote Patient Monitoring [facility] [address] [place] [address] [facility], Provider Social History Tobacco Use Types Packs/Day Years Used Date Smoking Tobacco: Former Cigarettes 2 18 0 09/16/1966 - 06/30/1984 Passive Smoke Exposure: Past Smokeless Tobacco: Never Alcohol Use Standard Drinks/Week Comments Not Currently 0 (1 standard drink = 0.6 oz pur e alcohol) rarely, one or two a year [facility] Utilities Answer Date Recorded In the past 12 months has [facility] [employer], gas, oil, or water [employer] threatened to shut off services in your [...] How often do you attend chur or yazidism services? More than 4 times per year [...] and heating? Not hard at all 02/11/2023 [facility] - [...] situation today? I have a [facility] place to live 05/12/2023 Education Answer Date Recorded What is the highest level of school you have completed or the highest degree you have received? Bachelor's degree (e.g., BA, AB, BS) 09/20/2018 Sex and Gender Information Value Date Recorded Sex Assigned at Male 06/14/2018 8:36 PM NET MAKING SUPERVISOR Gender Identity Male 10/11/2022 10:17 PM CDT Sexual Orientation Choose not to disclose 2019 1:31 PM NET MAKING SUPERVISOR documented as of this encounter Plan of Treatment Not on file documented as of this encounter Visit Diagnoses Not on filedocumented in this encounter Additional Health Concerns Assessment Noted Time PHQ-9 Depression Total Score: 7 09/04/19 16 9:47 AM CDT documented as of this encounter Care Teams Repairer Relationship Specialty Start Date End Date Elsewhere, Pcp PCP - General Internal Medicine 07/08/23 10/20/23 documented as of this encounter
--- OUTSIDE RECORDS SUMMARY | 2023-10-24 19:38 | XMS_ITS ---
Author Organization [facility] Address [address] [place] [address] Care Team Providers Care Car Sales Associate Name Role Phone Unavailable Unavailable Unavailable Surgery Details Not on file Complications Check Surgery Details section. Procedure Estimated Blood Loss Check Surgery Details section. Procedure Findings Check Surgery Details section. Procedure Specimens Taken Check Surgery Details section.
--- OUTSIDE RECORDS SUMMARY | 2023-10-24 19:38 | XMS_ITS ---
Author Organization [facility] Address [address] [place] [address] Care Team Providers Care Scholastic Aptitude Test Grader Name Role Phone Eli Rondon APRN C.N.PAjit Primary Care Provi khoi Active Problems Problem Noted Date Diagnosed Date [...] Plan: Duloxetine Apnea Sleep Obstructive 04/02/2019 Overview: 2016 -polysomnography showed severe obstructive sleep apnea. In [...] 4. Electronically signed by: Kimi Manzano M.D. [id number] 10-Aug-2016 12:45 Failed Gabapentin in 12/2022. Switched to Lyrica. Last Assessment & Plan: Did have consult with Orthopedics. They plan to do a spinal injection in the near future Hypothyroidism 01/26/2015 10/07/2022 Last Assessment & Plan: Levothyroxine Nodule Prostate 04/08/2014 10/07/2022 Current Oncology Plans No current plan information found. Past Plans No past plan information found. Radiation Treatments * No radiation treatments are documented for this patient in [facility]. Treatments may have been administered in another [...]
--- OUTSIDE RECORDS SUMMARY | 2023-10-24 19:38 | XMS_ITS | Encounter Summary ---
Author Organization [facility] Address [address] [place] [address] Care Team Providers Care Business Continuity Coordinator Name Role Phone Elsewhere, Pcp Primary Care Provider Unavailabl e Encounter Details Date Type Department Care Team (Late st Contact Info) Description 08/09/2023 CPAP Download Remote Patient Monitoring [facility] [address] [place] [address] [facility], Provider Social History Tobacco Use Types Packs/Day Years Used Date Smoking Tobacco: Former Cigarettes 2 18 0 09/16/1966 - 06/30/1984 Passive Smoke Exposure: Past Smokeless Tobacco: Never Alcohol Use Standard Drinks/Week Comments Not Currently 0 (1 standard drink = 0.6 oz pur e alcohol) rarely, one or two a year [facility] Utilities Answer Date Recorded In the past 12 months has [facility] [employer], gas, oil, or water [employer] threatened to shut off services in your [...] How often do you attend chur or anabaptist services? More than 4 times [...] hard at all 02/11/2023 [facility] - Occupational [...] living situation today? I have a [facility] place to live 05/12/2023 Education Answer Date Recorded What is the highest level of school you have completed or the highest degree you have received? Bachelor's degree (e.g., BA, AB, BS) 09/20/2018 Sex and Gender Information Value Date Recorded Sex Assigned at Male 06/14/2018 8:36 PM SUPERVISOR OPERATIONS Gender Identity Male 10/11/2022 10:17 PM CDT Sexual Orientation Choose not to disclose 2019 1:31 PM SUPERVISOR OPERATIONS documented as of this encounter Plan of Treatment Not on file documented as of this encounter Visit Diagnoses Not on filedocumented in this encounter Additional Health Concerns Assessment Noted Time PHQ-9 Depression Total Score: 7 09/04/19 16 9:47 AM CDT documented as of this encounter Care Teams Business Continuity Coordinator Relationship Specialty Start Date End Date Elsewhere, Pcp PCP - General Internal Medicine 07/08/23 10/20/23 documented as of this encounter
--- OUTSIDE RECORDS SUMMARY | 2023-10-24 19:38 | XMS_ITS | Encounter Summary ---
Author Organization [facility] Address [address] [place] [address] Care Team Providers Care Seafood Fisherman Name Role Phone Eli Rondon APRN, C.N.P. Primary Care Provi hkoi Encounter Details Date Type Department Care Team (Late st Contact Info) Description 10/24/2023 9:00 AM CDT External Outreach [facility] [place] [address] [place] [phone] Eli Rondon APRN, C.N.P. [address] [place] [address] Tachycardia Atrial Paroxysmal (HCC) (Primary Dx); Chronic [...] Falls; Major Depressive Disorder, Recurrent, Unspecified (HCC) Social History Tobacco Use Types Packs/Day Years Used Date Smoking Tobacco: Former Cigarettes 2 18 0 09/16/1966 - 06/30/1984 Passive Smoke Exposure: Past Smokeless Tobacco: Never Alcohol Use Standard Drinks/Week Comments Not Currently 0 (1 standard drink = 0.6 oz pur e alcohol) rarely, one or two a year [facility] Utilities Answer Date Recorded In the past 12 months has e [employer], gas, oil, or water [employer] threatened to shut off services in your [...] week 12/31/2021 How often do you attend up health system or sikhism services? More than 4 times per year [...] and heating? Not hard at all 02/11/2023 [facility] - Occupational Stress Questionnaire Answer [...] Sex Assigned at Male 06/14/2018 8:36 PM PHYSICIAN CREDENTIALING SPECIALIST Gender Identity Male 10/11/2022 10:17 PM CDT Sexual Orientation Choose not to disclose 2019 1:31 PM PHYSICIAN CREDENTIALING SPECIALIST documented as of this encounter Last [...] 12.8 oz) 10/24/2023 10:37 AM CDT Height - - Body Mass Index 58.42 05/11/2023 2:15 PM PHYSICIAN CREDENTIALING SPECIALIST documented in this encounter Progress Notes * Kimmy Hernandez L.P.N. - 10/24/2023 9:00 AM CDT Images from the original note were not included. SNF VISIT for New Admission visit New Admission to the facility. Recent Hospital admission: Yes,This resident was recently hospitalized at: Outside [facility] Date of hospitalization: Fall, generalized weakness, edema, TARA H/o colon CA, right hemicolectomy 05/12/23 (has not been a candidate for chemo d/t performance status) bilat LE edema, scrotal swelling and SOB with exertion, Reason for hospitalization: Fall- generalized weakness TARA, Anasarca, Medication changes: YES, Full Code Most recent labs: Lab Results Component Value Date WBC 7.0 09/09/2023 HGB 9.2 (L) 09/09/2023 HCT 30.8 (L) 09/09/2023 MCV 75 (L) 09/09/2023 PLT 270 09/09/2023 Lab Results Component Value Date NA 139 09/09/2023 KSERUM 4.4 09/09/2023 KBLOOD 3.9 03/24/2023 KPLASMA 4.2 04/27/2023 CL 103 09/09/2023 BICARB 24 09/09/2023 CREATININE 1.54 (H) 09/09/2023 CREATPOC 1.5 (H) 03/24/2023 EGFRNONBLKAA 54 (L) 12/11/2020 EGFRBLKAA 62 12/11/2020 BUN 30 (H) 09/09/2023 ANIONGAP 12 09/09/2023 GLUCOSE 152 (H) 09/09/2023 GLUCOSEPOC 151 (H) 05/16/2023 CALCIUM 8.9 09/09/2023 Lab Results Component Value Date ALT 11 04/24/2023 AST 7 (L) 04/24/2023 ALKPHOS 84 04/24/2023 BILITOT <0.2 04/24/2023 Active issues needing follow up: Yes What is Needed: Follow-up Appointments Arranged: Active wound requiring treatment: No Wounds/L/D/A: None SNF Nurse concerns: No Full Code Future Appointments 10/24/2023 9:00 AM Eli Rondon APRN, C.N.P. [facility] [place] Nursing Comments BRITTNEY-CPAP * Eli Rondon APRN, C.N.P. - 10/24/2023 9:00 AM CDT CHIEF COMPLAINT / REASON FOR VISIT The resident is being seen at [place], [place] for Post hospitalization Follow up Visit Visit Type: In Person Face-to- Face visit SUBJECTIVE HISTORY OF PRESENT ILLNESS Obtained from Patient, Nursing, and SBAR: Recent Hospital admission: Yes,This resident was recently hospitalized at: Outside [facility] Date of hospitalization: 10/12/23 through 10/21/23 Fall, generalized weakness, edema, TARA H/o colon CA, right hemicolectomy 05/12/23 (has not been a candidate for chemo d/t performance status) bilat LE edema, scrotal swelling and SOB with exertion Patient was previously using a walker to ambulate at home. He was falling at home. He was admitted to the hospital for weakness. He has not been able to walk independently since his hospitalization, he states he had 2 falls in the hospital. He came to [facility] for further rehab and therapy and plans toreturn home once he is stronger. He currently requires a Brissa lift for transfers. He is chronic lower extremity edema that he is using Barrington stockings for. He denies any shortness a breath or difficulty breathing. He has not having any chest pain, fever, chills, nausea or vomiting. He is morbidly obese and staff are noticing some redness under his abdominal folds I personally reviewed the most recent following items: clinical notes, lab results from hospitalization The following medical problems were actively reviewed (including updating overview sections as necessary) and addressed as part of today's visit: Diagnosis Overview 1. Chronic Kidney Disease (CKD), Stage 3a Glomerular Filtration Rate (GFR) 45 To 59 ([facility]) 2. Morbid Obesity Body Mass Index 50.0-59.9 Adult ([facility]) 3. Hypertensive Chronic Kidney Disease (CKD) Stage 3a Glomerular Filtration Rate (GFR) 45 To 59 4. Stones Uric Acid 5. Apnea Sleep Obstructive 2016 -polysomnography showed severe obstructive sleep apnea. In 120 minutes of sleep, the apnea-hypopnea index was 93 per hour. Snoring was grade 4/4. He desaturated to 80%. CPAP did not resolve, BiPAP did resolve the obstructive apnea. 6. Major Depressive Disorder, Recurrent, Unspecified (HCC) On duloxetine Meets with a counselor 7. Hypothyroidism 8. Hyperlipidemia 9. Radiculopathy Lumbar 10. Diabetes Mellitus Type 2 Peripheral Neuropathy (HCC) 11. Chronic Idiopathic Constipation 12. Anemia Iron Deficiency 13. Tachycardia Atrial Paroxysmal (HCC) - Primary 01/07 Holter monitor: underlying rhythm of sinus with intermittent junctional beats. The heart rate 61-123 beats per minute with an average of 82 beats per minute. There were 218 VPCs with a VPC burden less than 1%. There were 18,044 APCs with an APC burden of 19% including multiple atrial runs from3 to 150 beats. 02/06 - day mobile cardiac threat monitoring analyst: underlying rhythm of sinus, intermittent sinus arrhythmia, and rare accelerated junctional rhythm. Heart rate 52-113 beats per minute with an average of 70 beats per minute. The VPC burden was 1.65% and the APC burden was 2.27% with the longest run of atrial tachycardia being 40 beats. Currently rate controlled on diltiazem 240 mg twice daily (increased from 120 BID 02/07) 14. Debility 15. Malignant Neoplasm Of Colon Ascending (HCC) 01/31/23 - colonoscopy: large, ulcerated, nonobstructive mass in the proximal ascending colon whichwas biopsied. Pathology demonstrated moderately differentiated adenocarcinoma with intact DNA mismatch repair. In addition, a 25 mm semi-pedunculated polyp was noted in the sigmoid colon which was resected. Pathology demonstrated moderately differentiated adenocarcinoma. Colonoscopy 01/2023 colon cancer, multiple polyps, repeat in 1 year after surgery 16. Edema Leg Chronic 17. Repeated Falls 18. Malignant Neoplasm Of Colon (HCC) 19. Malignant Neoplasm Of Cecum (HCC) 20. Malignant Neoplasm Of Sigmoid Colon (HCC) CODE STATUS: FULL CODE REVIEW OF SYSTEMS Complete review of systems was performed, as allowable by patient's cognitive status, and incorporating collateral history if applicable. Relevant positives are noted elsewhere in this note, otherwise negative. OBJECTIVE Vital signs provided by facility: BP 120/72 Comment: vitals per SNF EHR Pulse 78 Temp 36.4 ??C Resp 17 Wt (!) 200 kg SpO2 96% Comment: RA BMI 58.42 kg/m?? PHYSICAL EXAM Constitutional General: He is not in acute distress. Appearance: Normal appearance. HENT Nose: Nose normal. No congestion or [...] present. Left lower leg: Edema present. Comments: Significant lower extremity edema Skin Coloration: Skin is pale. Neurological Mental [...] and present management will be continued. #1 Tachycardia Atrial Paroxysmal (HCC) Overview: 01/07 Holter monitor: underlying rhythm of sinus with intermittent junctional beats. The heart rate 61-123 beats per minute with an average of 82 beats per minute. There were 218 VPCs with a VPC burden less than 1%. There were 18,044 APCs with an APC burden of 19% including multiple atrial runs from3 to 150 beats. 02/06 - day mobile cardiac threat monitoring analyst: underlying rhythm of sinus, intermittent sinus arrhythmia, and rare accelerated junctional rhythm. Heart rate 52-113 beats per minute with an average of 70 beats per minute. The VPC burden was 1.65% and the APC burden was 2.27% with the longest run of atrial tachycardia being 40 beats. Currently rate controlled on diltiazem 240 mg twice daily (increased from 120 BID 02/07) Assessment & Plan: Diltiazem 240 mg twice a day Apixaban 5 mg twice a day #2 Chronic Idiopathic Constipation Assessment & Plan: MiraLAX as needed #3 Malignant Neoplasm Of Cecum (HCC) #4 Malignant Neoplasm Of Colon (HCC) #5 Malignant Neoplasm Of Colon Ascending (HCC) Overview: 01/31/23 - colonoscopy: large, ulcerated, nonobstructive mass in the proximal ascending colon whichwas biopsied. Pathology demonstrated moderately differentiated adenocarcinoma with intact DNA mismatch repair. In addition, a 25 mm semi-pedunculated polyp was noted in the sigmoid colon which was resected. Pathology demonstrated moderately differentiated adenocarcinoma. Colonoscopy 01/2023 colon cancer, multiple polyps, repeat in 1 year after surgery #6 Malignant Neoplasm Of Sigmoid Colon (HCC) Assessment & Plan: Follows with oncology He had right laparoscopic colectomy on 05/12/2023. 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 He states he is currently not receiving chemotherapy and has follow up in a few months. #7 Morbid Obesity Body Mass Index 50.0-59.9 Adult (HCC) Assessment & Plan: Patient would benefit from weight loss #8 Diabetes Mellitus Type 2 Peripheral Neuropathy (HCC) Assessment & Plan: Hemoglobin A1c, B Date [...] day Pregabalin 300 mg twice a day #9 Radiculopathy Lumbar Assessment & Plan: As needed acetaminophen Glucosamine Lidocaine patch Lyrica #10 Apnea Sleep Obstructive Overview: 2016 -polysomnography showed severe obstructive sleep apnea. In 120 minutes of sleep, the apnea-hypopnea index was 93 per hour. Snoring was grade 4/4. He desaturated to 80%. CPAP did not resolve, BiPAP did resolve the obstructive apnea. Assessment & Plan: BiPAP #11 Edema Leg Chronic Assessment & Plan: Furosemide Spironolactone He is using Barrington stockings Daily weights #12 Anemia Iron Deficiency Assessment & Plan: Hemoglobin was stable in the hospital at 9.4, he did receive 1 unit of blood on 10/18/2023 due to weakness #13 Chronic Kidney Disease (CKD), Stage 3a Glomerular Filtration Rate (GFR) 45 To 59 (HCC) Assessment & Plan: BMP ordered for tomorrow #14 Stones Uric Acid Assessment & Plan: Allopurinol #15 Hyperlipidemia Assessment & Plan: Statin #16 Hypothyroidism Assessment & Plan: Levothyroxine #17 Hypertensive Chronic Kidney Disease (CKD) Stage 3a Glomerular Filtration Rate (GFR) 45 To 59 Assessment & Plan: Blood pressure controlled with diltiazem and losartan #18 Debility Assessment & Plan: Continue with physical therapy and occupational therapy, he was using walker prior to hospital admission #19 Repeated Falls Assessment & Plan: Fall precautions #20 Major Depressive Disorder, Recurrent, Unspecified (HCC) Overview: On duloxetine Meets with a counselor Assessment & Plan: Duloxetine Other orders - acetaminophen (TylenoL) 500 mg tablet; Take 2 tablets (1,000 mg total) by mouth 3 (three) times aday as needed for pain., Starting Tue10/24/2023, No Print - sodium bicarbonate 650 mg tablet; Take 3 tablets (1,950 mg total) by mouth 3 (three) times a day., Starting Tue10/24/2023, No Print - insulin glargine 100 unit/mL (3 mL) injection; Inject 38 Units under the skin at bedtime. Pharmacy select brand per patient insurance/preference., Starting Tue10/24/2023, No Print - nystatin (Nystop) 100,000 unit/gram powder; Apply 1 Application topically 2 (two) times a day. Apply to skin folds for yeast infection., Starting Tue10/24/2023, No Print New orders: Daily weights, update provider if greater than 3 lb weight gain in 1 day or 5 lbs in week Antiperspirant stick to reddened areas in the abdominal folds twice a day CBC, BMP and hemoglobin A1c on 10/25/2023 PATIENT EDUCATION Ready to learn, no apparent learning barriers were identified; learning preferences include listening. Explained diagnosis and treatment plan; patient/child/caregiver expressed understanding of the content. Billing based on: Time, including the following tasks: reviewing the electronic medical record, updating the EPIC Problem List, reviewing written facility- provided information, reviewing information in facility EMR, medication reconciliation, obtaining collateral history from facility staff, obtaining collateral history from family member(s), Interviewing and examining the patient, placing orders, communicating orders to facility, providing education/counseling to patient, family, and/or facility staff. Total time 50 minutes. documented in this encounter Miscellaneous Notes * Assessment & Plan Note - Eli Rondon APRN, C.N.P. - 10/24/2023 1:14 PM CDTAssociated Problem(s): Major Depressive Disorder, Recurrent, Unspecified (HCC) Duloxetine * Assessment & Plan Note - Eli Rondon APRN, C.N.P. - 10/24/2023 1:13 PM CDTAssociated Problem(s): Repeated Falls Fall precautions * Assessment & Plan Note - Eli Rondon APRN, C.N.P. - 10/24/2023 1:13 PM CDTAssociated Problem(s): Debility Continue with physical therapy and occupational therapy, he was using walker prior to hospital admission * Assessment & Plan Note - Eli Rondon APRN, C.N.P. - 10/24/2023 1:13 PM CDTAssociated Problem(s): Hypertensive Chronic Kidney Disease (CKD) Stage 3a Glomerular Filtration Rate (GFR) 45 To 59 Blood pressure controlled with diltiazem and losartan * Assessment & Plan Note - Eli Rondon APRN, C.N.P. - 10/24/2023 1:12 PM CDTAssociated Problem(s): Hypothyroidism Levothyroxine * Assessment & Plan Note - Eli Rondon APRN, C.N.P. - 10/24/2023 1:12 PM CDTAssociated Problem(s): Hyperlipidemia Statin * Assessment & Plan Note - Eli Rondon APRN, C.N.P. - 10/24/2023 1:12 PM CDTAssociated Problem(s): Stones Uric Acid Allopurinol * Assessment & Plan Note - Eli Rondon APRN, C.N.P. - 10/24/2023 1:11 PM CDTAssociated Problem(s): Chronic Kidney Disease (CKD), Stage 3a Glomerular Filtration Rate (GFR) 45 To 59 (HCC) BMP ordered for tomorrow * Assessment & Plan Note - Eli Rondon APRN, C.N.P. - 10/24/2023 1:11 PM CDTAssociated Problem(s): Anemia Iron Deficiency Hemoglobin was stable in the hospital at 9.4, he did receive 1 unit of blood on 10/18/2023 due to weakness * Assessment & Plan Note - Eli Rondon APRN, C.N.P. - 10/24/2023 1:10 PM CDTAssociated Problem(s): Edema Leg Chronic Furosemide Spironolactone He is using Barrington stockings Daily weights * Assessment & Plan Note - Eli Rondon APRN, C.N.P. - 10/24/2023 1:10 PM CDTAssociated Problem(s): Apnea Sleep Obstructive BiPAP * Assessment & Plan Note - Eli Rondon APRN, C.N.P. - 10/24/2023 1:09 PM CDTAssociated Problem(s): Radiculopathy Lumbar As needed acetaminophen Glucosamine Lidocaine patch Lyrica * Assessment & Plan Note - Eli Rondon APRN, C.N.P. - 10/24/2023 1:09 PM CDTAssociated Problem(s): Diabetes Mellitus Type 2 Peripheral Neuropathy (HCC) Hemoglobin A1c, B Date Value Ref Range [...] day Pregabalin 300 mg twice a day * Assessment & Plan Note - Eli Rondon APRN, C.N.P. - 10/24/2023 1:08 PM CDTAssociated Problem(s): Morbid Obesity Body Mass Index 50.0-59.9 Adult (HCC) Patient would benefit from weight loss * Assessment & Plan Note - Eli Rondon APRN, C.N.P. - 10/24/2023 1:08 PM CDTAssociated Problem(s): Malignant Neoplasm Of Sigmoid Colon (HCC) Follows with oncology He had right laparoscopic colectomy on 05/12/2023. 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 He states he is currently not receiving chemotherapy and has follow up in a few months. * Assessment & Plan Note - Eli Rondon APRN, C.N.P. - 10/24/2023 1:03 PM CDTAssociated Problem(s): Chronic Idiopathic Constipation MiraLAX as needed * Assessment & Plan Note - Eli Rondon APRN C.N.P. - 10/24/2023 1:02 PM CDTAssociated Problem(s): Tachycardia Atrial Paroxysmal (HCC) Diltiazem 240 mg twice a day Apixaban 5 mg twice a day documented in this encounter Plan of Treatment Not on file documented as of this encounter Visit Diagnoses Diagnosis Tachycardia Atrial Paroxysmal (HCC)- Primary Chronic Idiopathic Constipation Malignant Neoplasm Of Cecum (HCC) Malignant Neoplasm Of Colon (HCC) Malignant Neoplasm Of Colon Ascending (HCC) Malignant Neoplasm Of Sigmoid Colon (HCC) Morbid Obesity Body Mass Index 50.0-59.9 Adult (HCC) Diabetes Mellitus Type 2 Peripheral Neuropathy (HCC) Radiculopathy Lumbar Apnea Sleep Obstructive Edema Leg Chronic Anemia Iron Deficiency Chronic Kidney Disease (CKD), Stage 3a Glomerular Filtration Rate (GFR) 45 To 59 (HCC) Stones Uric Acid Hyperlipidemia Hypothyroidism Hypertensive Chronic Kidney Disease (CKD) Stage 3a Glomerular Filtration Rate (GFR) 45 To 59 Debility Repeated Falls Major Depressive Disorder, Recurrent, Unspecified (HCC) documented in this encounter Additional Health Concerns Assessment Noted Time PHQ-9 Depression Total Score: 7 09/04/19 16 9:47 AM CDT documented as of this encounter Care Teams Seafood Fisherman Relationship Specialty Start Date End Date Eli Rondon APRN, C.N.P. [address] [place] [address] PCP - General Family Medicine 10/21/23 documented as of this encounter
--- OUTSIDE RECORDS SUMMARY | 2023-10-24 19:38 | XMS_ITS | Referral Summary ---
Author Organization [facility] Address [address] [place] [address] Care Team Providers Care Clinical Audiologist Name Role Phone Eli Rondon APRN C.N.P. Primary Care Provi khoi Source Comments Patient records contain information from all sites at [facility]. For routine questions regarding patient records, call [phone] during business hours, M-F 8:00 AM - 5:00 PM Central Time. Record requests for emergency care only can be directed to [phone] at any time.[facility] Encounters Date Type Department Care Team Description 10/24/2023 9:00 AM CDT External Outreach [facility] in [place] [address] [place] [address] Eli Rondon APRN, C.N.P. Tachycardia Atrial Paroxysmal [...] Falls; Major Depressive Disorder, Recurrent, Unspecified (HCC) 10/10/2023 CPAP Download Remote Patient Monitoring [facility] [address] [place] [address] [facility], Provider 09/09/2023 CPAP Download Remote Patient Monitoring [address] [address] [place] [address] [facility], Provider 08/09/2023 CPAP Download Remote Patient Monitoring [address] [place] [address] [facility], Provider 08/08/2023 1:06 PM CDT - 08/08/2023 11:59 PM CDT Hospital Encounter Department of Radiology, [facility], in [place], [place] [address] [place] [phone] Mario Alberto Navarro P.A.-C., M.S. [place] [...] surgery. Do not take if having diarrhea. 4 10/24/19 24 Discontinued(Dis continued by another [...] atrial runs from 3 to 150 beats. 10/22 - 14 day mobile cardiac athletic monitor: underlying rhythm of sinus, intermittent sinus [...] 4. Electronically signed by: Kimi Manzano M.D. [id number] 10-Aug-2016 12:45 Failed Gabapentin in 12/2022. Switched [...] - MODE RNA (12 YEARS AND OLDER) [id number] 02/18/2023 Td (Adult), adsorbed 04/02/2019(Deferred : Other [...] alcohol) rarely, one or two a year [facility] Utilities Answer Date Recorded In the past 12 months has e [employer], gas, oil, or water [employer] threatened to shut off services in your [...] often do you attend [facility] or worship services? More than 4 times per year 12/31/2021 Do you belong to any clubs o r organizations such as jainism groups, unions, fraternal or athletic groups, or [...] and heating? Not hard at all 02/11/2023 [facility] - Occupational Stress [...] your living situation today? I have a [facility] place to live 05/12/2023 Education Answer Date Recorded What is the highest level of school you have completed or the highest degree you have received? Bachelor's degree (e.g., BA, AB, BS) 09/20/2018 Sex and Gender Information Value Date Recorded Sex Assigned at Male 06/14/2018 8:[address] SUPERVISOR Gender Identity Male 10/11/2022 10:17 PM CDT Sexual Orientation Choose not to disclose 2019 1:[address] SUPERVISOR Last Filed Vital Signs Vital Sign Reading [...] cm (6' 0.84) 05/11/2023 2:[address] SUPERVISOR Body Mass Index 58.42 05/11/2023 2:[address] SUPERVISOR Plan of Treatment Not on file Medical Devices Explanted Type Area Ict Developer Device Identifier Shelf Expiration Date Model / Serial / Lot Stnt Uret Inl [id number] - [id number] Implanted:Qty : 1 on 04/04/2019 by Julian Mayfield M.D. at [facility] Ureteral Stent Right: Ureter [employer] [id number] 01/25/2022 [id number] / / [id number] Stnt Uret Inl [id number] - [id number] Implanted:Qty : 1 on 03/12/2019 by Ashkan Villanueva M.D. at [facility] Explanted: by Keith Lovelace APRN, C.N.P., M.S.N. 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 NR Narrative [id number] - 08/08/2023 2:43 PM CDT EXAM: FL [...] felt to best approximate that of an [id number]. Prior right L4 injection did not provide [...] Navarro P.A.-C. M.S. IMG FLUO ROSCOPY PROCEDURES [id number] NA * CT Abdomen Pelvis with IV Contrast (04/18/2023 2:[address] SUPERVISOR) Anatomical Region Laterality Modality Abdomen, Pelvis, Abdominal R ST LOS, Abdominal ARZ LOS, Abdominal FLA LOS N/A Computed Tomography 04/18/2023 2:[address] SUPERVISOR Impressions 04/18/2023 4:[address] SUPERVISOR 1. Limited/incomplete CT imaging of lateral right [...] kidneys and pancreas. Narrative 04/18/2023 4:[address] SUPERVISOR EXAM: CT ABDOMEN PELVIS WITH IV CONTRAST [...] the lateral right abdomen not included within [id number]. Within this limitation, no evidence of bowel [...] of the lateral rightabdomen not included within [id number]. Within this limitation, noevidence of bowel obstruction, [...] pancreas. Leila Jo M.D. IMG CT PROCEDURES from Last 3 Months or Most Recently Relevant to Health Maintenance Advance Directives For more information, please contact: [phone] Documents on File Type Date Recorded Patient Women'S Basketball Coach Expl anation Advance Directives 05/02/2023 2:48 PM [...] Olivera Spouse Health Care Agent Care Teams Clinical Audiologist Relationship Specialty Start Date End Date Eli Rondon APRN, C.N.P. [address] [place] [phone] PCP - General Family Medicine 10/21/23
--- OUTSIDE RECORDS SUMMARY | 2023-10-24 19:38 | XMS_ITS | Encounter Summary ---
Author Organization [facility] Address [address] [place] [id number] Care Team Providers Care Rn Home Care Name Role Phone Eli Rondon APRN C.N.PAjit Primary [facility] Provi khoi Encounter Details Date Type Department Care Team (Late st Contact Info) Description 10/10/2023 CPAP Download Remote Patient Monitoring [facility] [address] [place] [id number] [facility], Provider Social History Tobacco Use Types Packs/Day Years Used Date Smoking Tobacco: Former Cigarettes 2 18 0 09/16/1966 - 06/30/1984 Passive Smoke Exposure: Past Smokeless Tobacco: Never Alcohol Use Standard Drinks/Week Comments Not Currently 0 (1 standard drink = 0.6 oz pur e alcohol) rarely, one or two a year [facility] Utilities Answer Date Recorded In the past 12 months has [employer] gas, oil, or water [employer] threatened to shut off services in your [...] How often do you attend chur or holiness services? 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 [address] [place] [address] PCP - General Family Medicine 10/21/23 documented as of this encounter
--- OUTSIDE RECORDS SUMMARY | 2023-10-24 19:39 | XMS_ITS | Clinical Summary ---
Author Organization [employer] [facility] Address [place], [place] [address] Care Team Providers Care Residence Hall Director Name Role Phone Grzegorz Wiggins MD Primary Care Provider [phone] [facility] Care, [place] Unavailable [phone] Allergies Active Allergy Reactions Criticality Noted Date [...] Bariatric four wheel walker with a seat. [facility]. [phone] 1 Each 02/09/20 22 Active [facility] CONTOUR [...] 024 Discontinued(*A vailability/For mulary change/Cost of medication) Active Problems Problem Noted Date Diagnosed Date [...] reports on 04/15/[address] Dasilva of [place] and Dr. Sousa of [facility] have both given him the ok to [...] 4. Electronically signed by: Kimi Manzano M.D. [id number] 10-Aug-2016 12:45 Failed Gabapentin in 12/2022. Switched to Lyrica. Benign non-nodular prostatic hyperplasia with lower urinary tract symptoms 06/18/2015 Hypothyroidism 01/26/2015 Renal stone 01/16/2015 BPH (benign prostatic hypertrophy) 04/08/2014 Vitamin D deficiency 12/06/2011 Cardiac dysrhythmia, unspecified 09/05/2006 Nonspecific abnormal unspeci fied cardiovascular function study Family history of ischemic heart disease Encounters Date Type Department Care Team Description 10/17/[address] [facility] Scanner 1 scan: (1-Ord) [facility], XR CHEST 1V PORTABLE, 10/17/2023 10/13/[address] [facility] Scanner 1 scan: (1-Ord) [facility], CTA CHEST PE PROTOCOL, 10/13/2023 10/12/2023 11:00 AM CDT Ancillary Procedure [facility] [address] [place] [address] 10/12/[address] [facility] Scanner 1 scan: (1-Ord) [facility], CHEST, 10/12/2023 10/12/2023 Travel 10/11/[address] [facility] Scanner 1 scan: (1-Ord) [facility], CT CHEST,ABDOMEN andPELVIS ACQUIRED W/IV CONTRAST, 10/11/2023 10/11/[address] [facility] Scanner 1 scan: (1-Ord) [facility], LUMBAR SPINE WO CONTRAST, 10/11/2023 10/11/[address] [facility] Scanner 1 scan: (1-Ord) [facility], CT HEAD/BRAIN WO, 10/11/2023 10/11/[address] [facility] Scanner 1 scan: (1-Ord) [facility], CERVICAL SPINE WO CON, 10/11/2023 10/10/2023 Telephone [facility] [address] [place] [address] Heaven Callaway PA Edema 10/10/2023 Nurse Triage [facility] [address] [place] [address] Grzegorz Wiggins MD Penis/Scrotum Problem 09/28/2023 Refill [facility] [address] [place] [address] Grzegorz Wiggins MD Refill Request (Lantus Solostar U-100 Insulin, Tamsulosin) 09/16/[address] [address] Grzegorz Wiggins MD Refill Request (Furosemide) 09/14/[address] [address] Mary Anne Garibay NP Refill Request (Spironolactone) 09/09/2023 Orders Only [facility] [address] [place] [address] Grzegorz Wiggins MD Lab 09/07/[address] [address] Mary Anne Garibay NP Refill Request (Spironolactone, Furosemide) 09/06/2023 7:15 AM CDT Orders Only [address] [address] Lab, [place] [facility] 09/06/2023 Orders Only [address] [address] Phylicia Yip Kacey, DO <No scans attached> 09/06/2023 Travel 09/05/2023 E-Visit [address] [address] Grzegorz Wiggins MD Urinalysis 09/02/[address] [address] Grzegorz Wiggins MD fyi (discharged) 08/19/2023 8:50 AM CDT Telemedicine [address] [address] Grzegorz Wiggins MD Medication Management; Knee Pain/problem 08/19/[address] [address] Grzegorz Wiggins MD Medication Management (glipiZIDE (GLUCOTROL) 5 mg tablet) 08/11/2023 Orders Only [facility] Scanner 1 scan: (1-Ord) [facility], CT-CHEST/ABD/PELVIS W/O, 08/11/2023 from Last 3 Months Immunizations Name Administration Dates Next Due AMB Influenza, IIV3 (Age >=3 years)(Flu Clinic Only) 04/12/2008 COVID-19 vaccine (Pfizer-Bio NTech 30mcg/0.3mL) 12YO+ BIVALENT PF, MDV 03/08/2022 COVID-19 vaccine (Pfizer-Bio NTech 30mcg/0.3mL) 12YO+ LEATHA-SUCROSE PF, MDV 10/05/2021 COVID-19 vaccine (Pfizer-Bio NTech 30mcg/0.3mL) PF, MDV 07/05/2020,06/14/2020 Covid-19 Vaccine (Moderna 25MCG/0.25ML) 6MO-11YO [id number] Formula PF, SDV 02/18/2023,03/08/2022 DT (Age < [...] Description 11/18/2023 8:00 AM CDT Office Visit [facility] [address] [place] [address] Grzegorz Wiggins MD [address] [place] [address] Health Maintenance Due Date Last Done Comments [...] Procedure Name Priority Date/Time Associated Diagnosis Comments SCAN-RADIOLOGY REPORT 10/17/2023 12:00 AM CDT SCAN-CT INTERPRETATION 4 12:00 AM CDT ECHO TTE COMPLETE W CONTRAST Routine 10/12/2023 12:37 PM CDT New onset a-fib (HC) SCAN-RADIOLOGY REPORT 10/12/2023 12:00 AM CDT SCAN-CT INTERPRETATION 4 12:00 AM CDT SCAN-CT INTERPRETATION 4 12:00 AM CDT SCAN-CT INTERPRETATION 4 12:00 AM CDT SCAN-CT INTERPRETATION 4 12:00 AM CDT RED CELL MORPHOLOGY Routine 09/09/2023 1 1:00 [...] 7:22 AM CDT Dysuria URINALYSIS MICROSCOPIC Routine 4 7:22 AM CDT Dysuria UA W/ SEDIMENT EXAM REFLEXED PER CRITERIA Routine 09/06/2023 7:22 AM CDT Dysuria SCAN-CT INTERPRETATION 4 12:00 AM CDT SCAN-COLONOSCOPY 01/31/2023 12:0 0 AM [...] STONE PROTOCOL WO Routine 04/15/2021 12:00 AM HARP MAKER Recurrent UTI from Last 3 Months or Most Recently Relevant to Health Maintenance Results * SCAN-RADIOLOGY REPORT (10/17/2023 12:00 AM CDT) Only the most recent of2 resultswithin the time period is included. Anatomical Region Laterality Modality Other Scanner OTHER * SCAN-CT INTERPRETATION (10/13/2023 12:00 AM CDT) Only the most recent of6 resultswithin the time period is included. Anatomical Region Laterality Modality Other Scanner OTHER * ECHO TTE COMPLETE W CONTRAST (10/12/2023 12:37 PM CDT) AORTIC VALVE MEAN PG 10 mmHg EJECTION FRACTION 76 % Anatomical Region Laterality Modality Ultrasound 10/12/2023 11:5 1 AM CDT Narrative 10/12/2023 12:51 PM CDT ECHOCARDIOGRAM ALFONZO OLIVERA ? Accession#: ?? [id number] : ?1950 72 years Study Date: ?? 10/12/2023 11:51:43 AM Gender: M ?BP: ? 137/63 mmHg Height: 196.00 cm ?BSA: ?3.00 m? ? ? Weight: 180.00 kg ?Tech: ? MSR ? Referring MD: PROVIDER REFERRING Site: ? [facility] Reading Location: Mobile [facility] Patient Location: Inpatient. Procedure: 2D w/ Contrast, Color Doppler and Spectral Doppler. Indication for study: New onset a-fib Cardiac Rhythm: Irregular.Study quality: Technically limited. Final Impressions: 1. Technically limited exam. 2. Not well visualized left ventricular size, not well visualized wall thickness, normal global systolic function, calculated EF of 76 %. 3. The aortic valve is not well visualized, no stenosis and no regurgitation. 4. Echo contrast was administered to BMI. 5. 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 Comparison Compared to prior exam images and report of 12/15/22, there has been no significant change. Chamber Sizes and Function Not well visualized left ventricular size, not well visualized wall thickness, normal global systolic function, calculated EF of 76 %. Left atrial size is normal. Right ventricular cavity size is normal, global systolic RV function is normal. The right atrium is not well visualized. The pulmonary artery is not well visualized. The sinus of Valsalva is dilated. The ascending aorta is not well visualized. Valves, RV Pressures and Diastolic Function The aortic valve is not well visualized , no stenosis and no regurgitation. The mitral valve is not well visualized, no mitral regurgitation. Indeterminate pattern of LV diastolic filling. The tricuspid valve is not well visualized. Tricuspid regurgitation is regurgitation is not well visualized. The pulmonic valve is not well visualized. Unable to determine pulmonary regurgitation. Masses, Effusion, Shunts There is no pericardial effusion. The inferior vena cava is not well visualized, respiratory size variation not well visualized. Interatrial septum is not well visualized. MEASUREMENTS AND CALCULATIONS 2-D Measurements and LV Function: Ao Sinus 4.1 cm Planimetered EF 76 % Asc Ao ?? 3.4 cm LVOT diameter ?? 2.5 cm ?HR ?60 bpm ?LA Vol index ?28 ml/m2 Diastology: Mitral ?Tissue Doppler E Peak 1.2 m/s ??e', Septum ? 0.11 m/s DT ? 243 msec e', Lateral ?0.12 m/s ?E/e' Average ?? 11.19 Aortic Valve: Vmax ? 2.0 m/s ??HIGINIO (V) ?? 3.11 cm? ? ? VTI ?0.42 m ?? HIGINIO (I) ?? 3.13 cm? ? ? LVOT V max 1.3 m/s ??Max PG ?17 mmHg LVOT VTI ?? 0.26 m ?? Mean PG ?? 10 mmHg SV ? 130 ml ?? Dim Index 0.63 SV index ?? 43 ml/m? ? ? CO ?7.8 l/min ?CI ?2.6 l/min/m? ? ? Mitral Valve: MVA ?3.1 cm? ? ? MV P 1/2 70 msec Tricuspid Valve and estimated PA pressures: TAPSE 2.6 cm Pulmonic Valve: PV AT 54 msec Contrast documentation: 2ml ml diluted Definity, lot #[id number], [facility]# [id number] was administered peripherally to BMI. . This study was interpreted by an [facility] accredited facility. CC: HIM (med records) [facility], Med/Surg - IP [facility]. ??Final ?? Procedure Note Peter Damian MD - 10/12/2023 ECHOCARDIOGRAM ALFONZO OLIVERA : 1950 72 years Study Date: 10/12/2023 11:51:43 AM Gender: M BP: 137/63 mmHg Height: 196.00 cm BSA: 3.00 m? ? ? Weight: 180.00 kg Tech: ALEA Referring MD: PROVIDER REFERRING Site: [facility] Reading Location: Mobile [facility] Patient Location: Inpatient. Procedure: 2D w/ Contrast, Color Doppler and Spectral Doppler. Indication for study: New onset a-fib Cardiac Rhythm: Irregular.Study quality: Technically limited. Final Impressions: 1. Technically limited exam. 2. Not well visualized left ventricular size, not well visualized wallthickness, normal global systolic function, calculated EF of 76 %. 3. The aortic valve is not well visualized, no stenosis and noregurgitation. 4. Echo contrast was administered to BMI. 5. 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 Comparison Compared to prior exam images and report of 12/15/22, there has been nosignificant change. Chamber Sizes and Function Not well visualized left ventricular size, not well visualized wallthickness, normal global systolic function, calculated EF of 76 %. Leftatrial size is normal. Right ventricular cavity size is normal, globalsystolic RV function is normal. The right atrium is not well visualized.The pulmonary artery is not well visualized. The sinus of Valsalva isdilated. The ascending aorta is not well visualized. Valves, RV Pressures and Diastolic Function The aortic valve is not well visualized , no stenosis and noregurgitation. The mitral valve is not well visualized, no mitralregurgitation. Indeterminate pattern of LV diastolic filling. Thetricuspid valve is not well visualized. Tricuspid regurgitation isregurgitation is not well visualized. The pulmonic valve is not wellvisualized. Unable to determine pulmonary regurgitation. Masses, Effusion, Shunts There is no pericardial effusion. The inferior vena cava is not wellvisualized, respiratory size variation not well visualized. Interatrialseptum is not well visualized. MEASUREMENTS AND CALCULATIONS 2-D Measurements and LV Function: Ao Sinus 4.1 cm Planimetered EF 76 % Asc Ao 3.4 cm LVOT diameter 2.5 cm HR 60 bpm LA Vol index 28 ml/m2 Diastology: Mitral Tissue Doppler E Peak 1.2 m/s e', Septum 0.11 m/s DT 243 msec e', Lateral 0.12 m/s E/e' Average 11.19 Aortic Valve: Vmax 2.0 m/s HIGINIO (V) 3.11 cm? ? ? VTI 0.42 m HIGINIO (I) 3.13 cm? ? ? LVOT V max 1.3 m/s Max PG 17 mmHg LVOT VTI 0.26 m Mean PG 10 mmHg SV 130 ml Dim Index 0.63 SV index 43 ml/m? ? ? CO 7.8 l/min CI 2.6 l/min/m? ? ? Mitral Valve: MVA 3.1 cm? ? ? MV P 1/2 70 msec Tricuspid Valve and estimated PA pressures: TAPSE 2.6 cm Pulmonic Valve: PV AT 54 msec Contrast documentation: 2ml ml diluted Definity, lot #[id number], [facility]#[id number] was administered peripherally to BMI. . This study was interpreted by an [facility] accredited facility. CC: HIM (med records) [facility], Med/Surg - IP [facility]. Final Provider Referring ECHO ORD * (ABNORMAL) CBC WITH AUTO DIFFERENTIAL (09/09/2023 11:00 AM CDT) WHITE BLOOD COUNT 7.0 4.5 - 11.0 thou/cu mm 09/09/2023 4:50 PM CDT [facility] RED BLOOD COUNT 4.10(L) 4.30 - 5.90 mil/cu mm 09/09/2023 4:50 PM CDT [facility] HEMOGLOBIN 9.2(L) 13.5 - 17.5 g/dL 09/09/2023 4:50 PM CDT [facility] HEMATOCRIT 30.8(L) 37.0 - 53.0 % 09/09/2023 4:50 PM CDT [facility] MCV 75(L) 80 - 100 fL 09/09/2023 4:50 PM CDT [facility] MCH 22.4(L) 26.0 - 34.0 pg 09/09/2023 4:50 PM CDT [facility] MCHC 29.9(L) 32.0 - 36.0 g/dL 09/09/2023 4:50 PM CDT [facility] RDW 20.8(H) 11.5 - 15.5 % 09/09/2023 4:50 PM CDT [facility] PLATELET COUNT 270 140 - 440 thou/cu mm 09/09/2023 4:50 PM CDT [facility] MPV 10.2 6.5 - 11.0 fL 09/09/2023 4:50 PM CDT [facility] NRBC 0.0 % 09/09/2023 4:50 PM CDT [facility] ABS NRBC 0.0 thou /cu mm 09/09/2023 4:50 PM CDT [facility] % NEUT 60.4 % 09/09/2023 4:50 PM CDT [facility] % LYMPH 25.0 % 09/09/2023 4:50 PM CDT [facility] % MONO 6.7 % 09/09/2023 4:50 PM CDT [facility] % EOS 6.8 % 09/09/2023 4:50 PM CDT [facility] % BASO 0.7 % 09/09/2023 4:50 PM CDT [facility] % IMMATURE GRAN (METAS,MYELOS,MS OS) 0.4 % 09/09/2023 4:50 PM CDT [facility] ABSOLUTE NEUTROPHILS 4.3 1.7 - 7.0 thou/cu mm 09/09/2023 4:50 PM CDT [facility] ABSOLUTE LYMPHOCYTES 1.8 0.9 - 2.9 thou/cu mm 09/09/2023 4:50 PM CDT [facility] ABSOLUTE MONOCYTES 0.5 <0.9 thou/cu mm 09/09/2023 4:50 PM CDT [facility] ABSOLUTE EOSINOPHILS 0.5(H) <0.5 thou/cu mm 09/09/2023 4:50 PM CDT [facility] ABSOLUTE BASOPHILS 0.1 <0.3 thou/cu mm 09/09/2023 4:50 PM CDT [facility] ABSOLUTE IMMATURE GRANULOCYTES(MET ,MYELOS,PROS) 0.0 <0.3 thou/cu mm 09/09/2023 4:50 PM CDT [facility] Blood BLOOD SPECIMEN / Unknown Non-Lab Venipuncture / Unknown 09/09/2023 11:00 AM CDT 09/09/2023 3:41 PM CDT Narrative [facility] - 09/09/2023 4:50 PM CDT This procedure was originally ordered at [facility]. Grzegorz Wiggins MD HEMATOLOGY Performing Organization Address City/[facility] Co de Phone Number [facility] [address] [address], [place] * (ABNORMAL) RED CELL MORPHOLOGY (09/09/2023 11:00 AM CDT) [facility] ELLIPTOCYTES Few 09/09/2023 4:50 PM CDT [facility] POLYCHROMASIA Slight 09/09/2023 4:50 PM CDT [facility] RBC COMMENT Present(A) RBC morphology appears normal, RBC morphology within normal limits for newborns. 09/09/2023 4:50 PM CDT [facility] Blood BLOOD SPECIMEN / Unknown Non-Lab Venipuncture / Unknown 09/09/2023 11:00 AM CDT 09/09/2023 3:41 PM CDT Narrative [facility] - 09/09/2023 4:50 PM CDT This procedure was originally ordered at [facility]. Grzegorz Wiggins MD HEMATOLOGY Performing Organization Address City/[facility] Co de Phone Number [facility] [address] [address], [place] * (ABNORMAL) PLATELET ESTIMATE (09/09/2023 11:00 AM CDT) Pathologist [facility] PLATELET ESTIMATE Platelets are clumped and appear adequate in number(A) Adequate, No estimate 09/09/2023 4:50 PM CDT [facility] Blood BLOOD SPECIMEN / Unknown Non-Lab Venipuncture / Unknown 09/09/2023 11:00 AM CDT 09/09/2023 3:41 PM CDT Narrative [facility] - 09/09/2023 4:50 PM CDT This procedure was originally ordered at [facility]. Grzegorz Wiggins MD HEMATOLOGY [facility] [address] [place] [address], * (ABNORMAL) BASIC METABOLIC PANEL (09/09/2023 11:00 AM CDT) SODIUM 139 136 - 145 mmol/L 09/09/2023 4:51 PM CDT [facility] POTASSIUM 4.4 3.5 - 5.1 mmol/L 09/09/2023 4:51 PM CDT [facility] CHLORIDE 103 98 - 107 mmol/L 09/09/2023 4:51 PM CDT [facility] CO2,TOTAL 24 22 - 29 mmol/L 09/09/2023 4:51 PM CDT [facility] ANION GAP 12 5 - 18 09/09/2023 4:51 PM CDT [facility] GLUCOSE 152(H) 70 - 99 mg/dL 09/09/2023 4:51 PM CDT [facility] CALCIUM 8.9 8.8 - 10.2 mg/dL 09/09/2023 4:51 PM CDT [facility] BUN 30(H) 8 - 23 mg/dL 09/09/2023 4:51 PM CDT [facility] CREATININE 1.54(H) 0.70 - 1.20 mg/dL 09/09/2023 4:51 PM CDT [facility] BUN/CREAT RATIO 19 10 - 20 4:51 PM CDT [facility] eGFR 48(L) >90 mL/min/1.7 3m2 09/09/2023 4:51 PM CDT [facility] Comment:As of 2021, [...] 3:41 PM CDT Grzegorz Wiggins MD [facility] [address] [place] [address], * URINALYSIS MICROSCOPIC (09/06/2023 7:22 AM CDT) RBC None Seen 0-2, None Seen /HPF 09/06/2023 7:31 AM CDT [facility] WBC 0-2 0-2, 3-5, None Seen /HPF 09/06/2023 7:31 AM CDT [facility] BACTERIA Few None Seen, Rare, Few Bacteria/ HPF 09/06/2023 7:31 AM CDT [facility] EPITHELIAL CELLS None Seen None Seen, Few Epi/HPF 09/06/2023 7:31 AM CDT [facility] Urine URINE SPECIMEN / Unknown Non-Blood / Unknown 09/06/2023 7:22 AM CDT 09/06/2023 7:22 AM CDT Phylicia Yip DO URINE Performing Organization Address City/[facility]/ZIP Co de Phone Number [facility] [address] [place] [address], [place] [phone] * URINE CULTURE (09/06/2023 7:22 AM CDT) CULTURE <10,000 CFU/mL multiple organisms 09/07/2023 1:36 PM CDT [facility] Urine URINE SPECIMEN / Unknown Non-Blood / Unknown 09/06/2023 7:22 AM CDT 09/06/2023 7:22 AM CDT Phylicia Coatesjorge MICROBIOLOGY [facility] [address] [place] [address], * (ABNORMAL) UA W/ SEDIMENT EXAM REFLEXED PER CRITERIA (09/06/2023 7:22 AM CDT) COLOR Yellow Yellow Color 09/06/2023 7:31 AM CDT [facility] CLARITY Clear Clear Clarity 09/06/2023 7:31 AM CDT [facility] SPECIFIC GRAVITY,URINE 1.025 1.010, 1.015, 1.020, 1.025 09/06/2023 7:31 AM CDT [facility] PH,URINE 5.5 6.0, 7.0, 8.0, 5.5, 6.5, 7.5, 8.5 09/06/2023 7:31 AM CDT [facility] UROBILINOGEN, QUALITATIVE Normal Normal EU/dl 09/06/2023 7:31 AM CDT [facility] PROTEIN, URINE Negative Negative mg/dL 09/06/2023 7:31 AM CDT [facility] GLUCOSE, URINE Negative Negative mg/dL 09/06/2023 7:31 AM CDT [facility] KETONES,URINE Negative Negative mg/dL 09/06/2023 7:31 AM CDT [facility] BILIRUBIN,URI NE Negative Negative 09/06/2023 7:31 AM CDT [facility] OCCULT BLOOD,URINE Negative Negative 09/06/2023 7:31 AM CDT [facility] NITRITE Negative Negative 09/06/2023 7:31 AM CDT [facility] LEUKOCYTE ESTERASE Trace(A) Negative 09/06/2023 7:31 AM CDT [facility] Urine URINE SPECIMEN / Unknown Non-Blood / Unknown 09/06/2023 7:22 AM CDT 09/06/2023 7:22 AM CDT Phylicia Kacey Shaqra DO URINE [facility] [address] [place] [address], [place] [phone] * SCAN-COLONOSCOPY (01/31/2023 12:00 AM CDT) Scanner OTHER * (ABNORMAL) LIPID PANEL W REFLEX MEASURED LDL (10/01/2022 1:35 PM CDT) CHOLESTEROL,TOTAL 98(L) 100 - 199 mg/dL 10/02/2022 12:32 AM CDT [facility] Comment: Cholesterol, Total Reference Ranges Desirable <200 mg/dL Borderline 200-239 mg/dL High >=240 mg/dL TRIGLYCERIDES 97 <150 mg/dL 10/02/2022 12:32 AM CDT [facility] HDL CHOLESTEROL 29(L) >40 mg/dL 12:32 AM CDT [facility] NON-HDL CHOLESTEROL 69 <145 mg/dl 10/02/2022 12:32 AM CDT [facility] CHOL/HDL RATIO 3.38 <4.50 10/02/2022 12:32 AM CDT [facility] LDL CHOLESTEROL 50 <=130 mg/dL 10/02/2022 12:32 AM CDT [facility] VLDL CHOLESTEROL 19 <=30 mg/dL 10/02/2022 12:32 AM CDT [facility] PROVIDER ORDERED STATUS RANDOM 10/02/2022 12:32 AM CDT [facility] Blood BLOOD SPECIMEN / Unknown Venipuncture / Unknown 10/01/2022 1:35 PM CDT 10/01/2022 1:35 PM CDT Grzegorz Wiggins MD CHEMISTRY [facility] [address] [place] [address], [place] * ANTI HCV (12/08/2021 9:26 AM CDT) HEPATITIS C ANTIBODY Non-React nicho Non-React nicho 12/08/2021 7:57 PM CDT [facility] Comment:Antibodies to HCV no t detected; does not exclude the possibility of exposure to HCV. Blood BLOOD SPECIMEN / Unknown Venipuncture / Unknown 12/08/2021 9:26 AM CDT 12/08/2021 9:26 AM CDT Grzegorz Wiggins MD [facility] [address] [place] [address], [place] * CT ABDOMEN PELVIS STONE PROTOCOL WO (04/15/2021 12:00 AM HARP MAKER) Anatomical Region Laterality Modality Abdomen, Pelvis, AORTA, [...] Preferences, Provider to review later Care Teams Residence Hall Director Relationship Specialty Start Date End Date [place] [address] [place] [address] PCP - General Family Practice 04/05/19 [facility] [place] [address] [place] [address] 02/01/22
--- OUTSIDE RECORDS SUMMARY | 2023-10-24 19:39 | XMS_ITS | Encounter Summary ---
Author Organization [facility] Address [address] [place] [address] Care Team Providers Care Burning Plant Operator Name Role Phone Eli Rondon APRN C.N.PAjit [...] Recorded In the past 12 months has [facility] [employer], gas, oil, or water [employer] threatened to shut off services in your [...] week 12/31/2021 How often do you attend [facility] or anabaptism services? More than 4 times per year 12/31/2021 Do you belong to any clubs o r organizations such as confucianist groups, unions, fraternal or athletic groups, or [...] and heating? Not hard at all 02/11/2023 [facility] - [...] your living situation today? I have a [facility] place to live 04/22/2023 Education Answer Date Recorded What is the highest level of school you have completed or the highest degree you have received? Bachelor's degree (e.g., BA, AB, BS) 09/20/2018 Sex and Gender Information Value Date Recorded Sex Assigned at Male 06/14/2018 8:36 PM MACHINE WIPER Gender Identity Male 10/11/2022 10:17 PM CDT Sexual Orientation Choose not to disclose 2019 1:31 PM MACHINE WIPER documented as of this encounter Plan of Treatment Not on file documented as of this encounter Visit Diagnoses Not on filedocumented in this encounter Additional Health Concerns Infection Onset Date Last Indicated Resolved Time COVID19 Pending 05/15/2023 05/15/2023 05/15/2023 1 1:56 PM MACHINE WIPER COVID19 05/15/2023 05/15/2023 06/04/2023 6:10 AM MACHINE WIPER Assessment Noted Time PHQ-9 Depression Total Score: 7 09/04/19 16 9:47 AM CDT documented as of this encounter Care Teams Burning Plant Operator Relationship Specialty Start Date End Date Eli Rondon APRN, C.N.P. [address] [place] [address] PCP - General Family Medicine 10/21/23 documented as of this encounter
--- OUTSIDE RECORDS SUMMARY | 2023-10-24 19:39 | XMS_ITS | Encounter Summary ---
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 [address] [place] [address] [facility] Referral ID Status Reason Start Date Expiration Date Visits Re quested Visits Authorized [id number] Closed 06/03/2023 06/02/2024 1 1 Encounter Details Date Type Department Care Team (Latest Contact Info) Description 08/08/2023 1:06 PM CDT - 08/08/2023 11:59 PM CDT Hospital Encounter Department of Radiology, [facility], in [place], [place] [address] [place] [address] Mario Alberto Navarro P.A.-C., M.S. [address] [place] [address] Wilner Casas M.D. 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 Not hard at all 02/11/2023 [facility] - Occupational Stress [...] your living situation today? I have a [facility] place to live 05/12/2023 Education Answer Date Recorded What is the highest level of school you have completed or the highest degree you have received? Bachelor's degree (e.g., BA, AB, BS) 09/20/2018 Sex and Gender Information Value Date Recorded Sex Assigned at Male 06/14/2018 8:36 PM JEWELRY SALESPERSON Gender Identity Male 10/11/2022 10:17 PM CDT Sexual Orientation Choose not to disclose 2019 1:31 PM JEWELRY SALESPERSON documented as of this encounter Last Filed [...] Sig Dispensed Refills Start Date End Date allopurinol (ZYLOPRIM) 300 mg tablet Take 300 mg by mouth daily. dilTIAZem CD (CARDIZEM CD/CARTIA XT) 240 mg [...] day as needed. Apply to right heel. furosemide (LASIX) 20 mg tablet Take 2 tablets (40 mg total) by mouth 2 (two) times a day. 06/15/2023 glucosamine HCl/chondroitin scanlon (GLUCOSAMINE-CHONDROI TIN ORAL) Take 1 tablet by mouth 3 (three) times a day. 500-400 mg 08/26/2016 levothyroxine (SYNTHROID, LEVOTHROID) 100 mcg tablet Take [...] (50 mg total) by mouth daily. 05/02/2023 menthol 10 % cream Apply 1 Application topically as needed. metFORMIN (GLUCOPHAGE) 1,000 mg tablet Take 1 tablet (1,000 mg total) by mouth 2 (two) times a day with meals. 04/27/2023 pantoprazole (PROTONIX) 40 mg EC tablet [...] times a day. 60 capsule 06/02/2023 07/04/2024 spironolactone (ALDACTONE) 25 mg tablet Take 1 tablet (25 mg total) by mouth daily. 04/27/2023 tamsulosin (FLOMAX) 0.4 mg 24 hr capsule Take 2 capsules by mouth at bedtime. 05/27/2014 acetaminophen (TYLENOL) 500 mg tablet Take 2 tablets (1,000 mg total) by mouth 4 (four) times a day. 2022 10/24/2023 calcium carbonate (TUMS) 500 mg (200 mg calcium) chewable tablet Chew 1 tablet (200 mg of calcium total) daily as needed for heartburn or indigestion. 04/27/2023 10/24/2023 ferrous sulfate 325 mg (65 mg iron) tablet Take 1 tablet (65 mg of iron total) by mouth daily. 90 tablet 06/20/2023 10/24/2023 insulin aspart U-100 (NovoLOG FlexPen) 100 unit/mL [...] 399: Call service writing Insulin orders 04/27/2023 10/24/2023 insulin glargine 100 unit/mL (3 mL) injection Inject 32 Units under the skin at bedtime. Pharmacy select brand per patient insurance/preference. 06/15/2023 10/24/2023 Lactobacillus rhamnosus GG (CULTURELLE) 10-15 billion cell capsule Take 1 capsule by mouth 2 (two) times a day. 04/27/2023 10/24/2023 magnesium oxide (MAG-OX) 400 mg (241.3 mg magnesium) tablet Take 1 tablet (400 mg total) by mouth 3 (three) times a day before meals. Low magnesium 04/27/2023 10/24/2023 nystatin (NYSTOP) 100,000 unit/gram powder Apply 1 Application topically 3 (three) times a day as needed (rash/skin irritation). Apply to skin folds for yeast infection. 15 g 04/27/2023 10/24/2023 psyllium, with aspartame, (METAMUCIL) 3.4 gram packet Take 1 packet by mouth daily as needed (Multiple loose stools or diarrhea.). Hold for 2 weeks after surgery. 05/16/2023 10/24/2023 sennosides-docusate sodium (SENOKOT-S) 8.6-50 mg per tablet Take 2 tablets by mouth 2 (two) times a day as needed for constipation. Hold for 2 weeks after surgery. Do not take if having diarrhea. 05/16/2023 10/24/2023 sodium bicarbonate 650 mg tablet Take 2 tablets (1,300 mg total) by mouth 3 (three) times a day. 03/07/2023 10/24/2023 documented as of this encounter Plan of [...] Injection Right (08/08/2023 2:08 PM CDT) Impressions [id number] - 08/08/2023 2:43 PM CDT Fluoroscopically-guided transforaminal epidural steroid injection. NR Narrative [id number] - 08/08/2023 2:43 PM CDT EXAM: FL [...] felt to best approximate that of an [id number]. Prior right L4 injection did not provide [...] IMG FLUO ROSCOPY PROCEDURES Performing Organization Address City/State/[facility] Co de Phone Number [id number] NA documented in this encounter Visit Diagnoses [...] %) injection (XYLOCAINE) As needed, Starting on 08/08/23 at 1400, Intra-Op Given 08/08/2023 2:00 PM CDT 3 mL documented in this encounter Additional Health Concerns Assessment Noted Time PHQ-9 Depression Total Score: 7 09/04/19 16 9:47 AM CDT documented as of this encounter Care Teams Senior Merchandiser Relationship Specialty Start Date End Date Elsewhere, Pcp PCP - General Internal Medicine 07/08/23 10/20/23 documented as of this encounter
--- OUTSIDE RECORDS SUMMARY | 2023-10-24 19:39 | XMS_ITS | Encounter Summary ---
Author Organization [facility] Address [address] [place] [address] Care Team Providers Care Kiln Burner Name Role Phone Elsewhere, Pcp Primary Care Provider Unavailabl e Encounter Details Date Type Department Care Team (Late st Contact Info) Description 04/07/2023 CPAP Download Remote Patient Monitoring [facility] [address] [place] [address] [facility], Provider Social History Tobacco Use Types Packs/Day Years Used Date Smoking Tobacco: Former Cigarettes 2 18 0 09/16/1966 - 06/30/1984 Passive Smoke Exposure: Past Smokeless Tobacco: Never Alcohol Use Standard Drinks/Week Comments Not Currently 0 (1 standard drink = 0.6 oz pur e alcohol) rarely, one or two a year [facility] Utilities Answer Date Recorded In the past 12 months has [employer], gas, oil, or water [employer] threatened to shut off services in your [...] How often do you attend chur or sabianist services? More than 4 times per year 12/31/2021 Do you belong to any clubs o r organizations such as muslim groups, unions, fraternal or athletic groups, or [...] and heating? Not hard at all 02/11/2023 [facility] - [...] Sex Assigned at Male 06/14/2018 8:36 PM KNUCKLER Gender Identity Male 10/11/2022 10:17 PM CDT Sexual Orientation Choose not to disclose 2019 1:31 PM KNUCKLER documented as of this encounter Plan of Treatment Not on file documented as of this encounter Visit Diagnoses Not on filedocumented in this encounter Additional Health Concerns Infection Onset Date Last Indicated Resolved Time COVID19 Pending 04/18/2023 04/18/2023 04/18/2023 3 :59 PM KNUCKLER COVID19 Pending 05/15/2023 05/15/2023 05/15/2023 1 1:56 PM KNUCKLER COVID19 05/15/2023 05/15/2023 06/04/2023 6:10 AM KNUCKLER Assessment Noted Time PHQ-9 Depression Total Score: 7 09/04/19 16 9:47 AM CDT documented as of this encounter Care Teams Kiln Burner Relationship Specialty Start Date End Date Elsewhere, Pcp PCP - General Internal Medicine 07/08/23 10/20/23 documented as of this encounter
--- OUTSIDE RECORDS SUMMARY | 2023-10-24 19:39 | XMS_ITS | Encounter Summary ---
Author Organization [facility] Address [address] [place] [address] Care Team Providers Care Scuba Diver Name Role Phone Elsewhere, Pcp Primary Care Provider Unavailabl e Encounter Details Date Type Department Care Team (Late st Contact Info) Description 06/29/2023 Clinical Communication Department of Oncology in [place], [place] [address] [place] [phone] Zan Rodriguez, Breanne.-C., M.S. [address] [place] [phone] Social History Tobacco Use Types Packs/Day Years Used Date Smoking Tobacco: Former Cigarettes 2 18 0 09/16/1966 - 06/30/1984 Passive Smoke Exposure: Past Smokeless Tobacco: Never Alcohol Use Standard Drinks/Week Comments Not Currently 0 (1 standard drink = 0.6 oz pur e alcohol) rarely, one or two a year [facility] Utilities Answer Date Recorded In the [...] 12/31/2021 How often do you attend [facility] or alevism services? More than 4 times per year [...] your living situation today? I have a [facility] place to live 05/12/2023 Education Answer Date Recorded What is the highest level of school you have completed or the highest degree you have received? Bachelor's degree (e.g., BA, AB, BS) 09/20/2018 Sex and Gender Information Value Date Recorded Sex Assigned at Male 06/14/2018 8:36 PM MANAGER SOURCING Gender Identity Male 10/11/2022 10:17 PM CDT Sexual Orientation Choose not to disclose 2019 1:31 PM MANAGER SOURCING documented as of this encounter Miscellaneous Notes [...] documented as of this encounter Care Teams Scuba Diver Relationship Specialty Start Date End Date Elsewhere, Pcp PCP - General Internal Medicine 07/08/23 10/20/23 documented as of this encounter
--- OUTSIDE RECORDS SUMMARY | 2023-10-24 19:39 | XMS_ITS | Encounter Summary ---
Author Organization [facility] Address [address] [place] [address] Care Team Providers Care Eyewear Manufacturing Supervisor Name Role Phone Elsewhere, Pcp Primary Care Provider Unavailabl e Encounter Details Date Type Department Care Team (Late st Contact Info) Description 07/09/2023 CPAP Download Remote Patient Monitoring [facility] [address] [place] [address] [facility], Provider Social History Tobacco Use Types Packs/Day Years Used Date Smoking Tobacco: Former Cigarettes 2 18 0 09/16/1966 - 06/30/1984 Passive Smoke Exposure: Past Smokeless Tobacco: Never Alcohol Use Standard Drinks/Week Comments Not Currently 0 (1 standard drink = 0.6 oz pur e alcohol) rarely, one or two a year [facility] Utilities Answer Date Recorded In the past 12 months has [facility] [employer], gas, oil, or water [employer] threatened to shut off services in your [...] How often do you attend chur or temple services? More than 4 times [...] and heating? Not hard at all 02/11/2023 [facility] - Occupational [...] your living situation today? I have a [facility] place to live 05/12/2023 Education Answer Date Recorded What is the highest level of school you have completed or the highest degree you have received? Bachelor's degree (e.g., BA, AB, BS) 09/20/2018 Sex and Gender Information Value Date Recorded Sex Assigned at Male 06/14/2018 8:36 PM AD SETTER Gender Identity Male 10/11/2022 10:17 PM CDT Sexual Orientation Choose not to disclose 2019 1:31 PM AD SETTER documented as of this encounter Plan of Treatment Not on file documented as of this encounter Visit Diagnoses Not on filedocumented in this encounter Additional Health Concerns Assessment Noted Time PHQ-9 Depression Total Score: 7 09/04/19 16 9:47 AM CDT documented as of this encounter Care Teams Eyewear Manufacturing Supervisor Relationship Specialty Start Date End Date Elsewhere, Pcp PCP - General Internal Medicine 07/08/23 10/20/23 documented as of this encounter
== END 2023-10-21 10:57 | disposition home or self-care (01) ==
LOC: AMB 10-24 19:33
PROVIDERS: PCP Family Medicine; Visit Provider Internal Medicine
DX: I50.33 Acute on chronic diastolic (congestive) heart failure (principal)
CPT/HCPCS: A0425; A0428